=== PATIENT | female | born 1955 | race Caucasian/White ===

== ENCOUNTER 2021-02-01 07:17 | Outpatient (CLI) | payer BC, SELFPAY ==
[2021-02-01 09:52] LABS: Absolute Basophil Count 0.08 10^3/uL (0.0-0.2); Absolute Eosinophil Count 0.42 10^3/uL (0.0-0.7); Absolute Lymphocyte Count 1.53 10^3/uL (1.2-3.4); Absolute Monocyte Count 0.78 10^3/uL (0.1-0.8); Absolute Neutrophil Count 9.84 10^3/uL (1.2-6.7); Basophils % 0.6; Eosinophils % 3.3; HCT 33.2 % (36.0-46.0); HGB 10.7 g/dL (11.2-15.7); Immature Grans % 0.8; MCH 28.7 pg (27.0-33.0); MCHC 32.2 % (32.0-36.0); MPV 10.6 fL (8.0-11.0); Monocytes % 6.1; Neutrophils % 77.2; Nucleated RBC 0 %; Platelet Count 392 10^3/uL (130-400); RBC 3.73 10^6/uL (3.93-5.22); RDW 12.1 % (11.7-14.6); RDW-SD 39.8 fL; WBC 12.75 10^3/uL (4.4-10.8)
[2021-02-01 10:07] LABS: ALT 16 U/L (14-59); AST 9 U/L (15-37); Albumin 2.4 g/dL (3.4-5.0); Alkaline Phosphatase 101 U/L (46-116); Anion Gap 7.4 mmol/L (3-11); BUN 35 mg/dL (7-18); Bilirubin, Total 0.4 mg/dL (0.2-1.0); CO2 27.6 mmol/L (21.0-32.0); CREATININE 1.7 mg/dL (0.55-1.02); Calcium 9.2 mg/dL (8.5-10.1); Chloride 101 mmol/L (98-107); Estimated GFR 30.07 (mL/min/1.73m2); Glucose 248 mg/dL (74-106); Potassium 4.8 mmol/L (3.5-5.1); Sodium 136 mmol/L (136-145); Total Protein 7.2 g/dL (6.4-8.2)
== END 2021-02-01 07:18 | disposition home or self-care (01) ==
PROVIDERS: Visit Provider Internal Medicine
DX: C67.9 Malignant neoplasm of bladder, unspecified (principal)
CPT/HCPCS: 36415; 80053; 83735; 85025

== ENCOUNTER 2021-02-09 15:30 | Emergency (ER) | payer BC, SELFPAY ==
[2021-02-09] VITALS (30 sets, daily range): BP systolic 152–225; BP diastolic 68–97; PULSE 91–108; RESP 14–27; TEMP 35.3; O2SAT 93–99
--- NOTE | 2021-02-09 15:45 | DI.CT_ITS ---
EXAM: CT RENAL COLIC WO CLINICAL HISTORY: stent placed, concerned for hydronephrosis/displac. TECHNIQUE: Imaging Protocol: Axial computed tomography images with coronal and sagittal reformatted images were created and reviewed CONTRAST MATERIAL: Intravenous: none Oral: None COMPARISON: CT ABD PELVIS WITH CONTRAST from 04/21/2017 FINDINGS: VISUALIZED LUNG BASES: There is mild infiltrate in the lingular segment of the visualized left lung b ase. Benign-appearing increased markings noted in the medial basal segment of the right lower lobe an d posterior basal segment of the left lower lobe. There are no pleural effusions. There is a pericardial effusion noted (small-moderate size). ABDOMEN: There is no ascites. LIVER: There are no obvious focal hepatic lesions evident of this noninfused study. GALLBLADDER/BILIARY: Gallbladder is slightly distended. No gallstones or gallbladder wall edema. CB D is not dilated. PANCREAS: The pancreas is atrophic and there are few parenchymal calcifications noted. Pancreatic du ct does not appear dilated. SPLEEN: Spleen is not enlarged. No obvious intrasplenic lesions. ADRENALS: There is relatively symmetrical thickening of both adrenal glands-probably hyperplasia. KIDNEYS:There is a right ureteral stent in place which extends from the renal pelvis down into the ur inary bladder. There is hydronephrosis of the right kidney despite the presence of the stent. The u rine in the right renal pelvis and infundibulum I is isodense to the kidney, or denser than typical. The ureter at the level of the stent is not dilated.. There is no obvious solid mass in the kidney. . In the opposite-left kidney there is a 5-6 millimeter calculus noted which is nonobstructive. This i s increased in size from the previous study. ABDOMINAL AORTA: Abdominal aorta is not enlarged. LYMPH NODES: There are enlarged right para-aortic and retroperitoneal lymph nodes, these ranging up t o 2.2 cm size. ABDOMINAL WALL/GI: Anterior midline scarring noted. No significant anterior abdominal hernia at this time. No bowel obstruction. PELVIS: LYMPH NODES: There is no prominent lymphadenopathy in the pelvis and inguinal regions. GI: No evidence of appendicitis.No evidence of sigmoid diverticulitis. URINARY BLADDER: Distal aspect of the right double-pigtail stent is in the urinary bladder. The blad brian is not distended. REPRODUCTIVE: Uterus is surgically absent. There are no abnormal adnexal masses. OSSEOUS: No significant osseous lesions. IMPRESSION: 1. There is significant right-sided hydronephrosis, this despite the presence of a right-sided ureter al stent which appears to be in satisfactory position. The fluid in the upper pole calices is denser than normal urine and may therefore represent blood, purulent fluid, or mass. 2. There is right-sided ztmjupbmwthoaol-aiwb-seortt lymphadenopathy. The right ureter below this lev el is not dilated. No obvious abnormality in the urinary bladder. 3. 5 millimeter calculus in the opposite-left kidney noted. No hydronephrosis nor hydroureter on the left side. Uterus is surgically absent. No abnormal adnexal masses. RADIATION DOSE DELIVERED: 1,367.43mGy.cm Total DLP DATA REPOSITORY: All CT scans at this facility are submitted to the National Radiology Data Registry (NRDR) Dose Index Registry (DIR) with the [employer] (A[employer]). RADIATION OPTIMIZATION: All CT scans at this facility use at least one of these dose optimization te chniques: automated exposure control; mA and/or kV adjustment per patient size (includes targeted exa ms where dose is matched to clinical indication); or iterative reconstruction.
--- NOTE | 2021-02-09 15:53 | W.ED.GENAD ---
Discharge Plan Disposition Patient Disposition: HOME Condition: Stable Discharge Details Clinical Impression: UTI (urinary tract infection), Kidney mass, Flank pain Primary Care Provider: Unknown,Unknown ED Provider: [place] Muñiz Home Meds and New Rx's Prescriptions: New cephalexin 250 mg capsule 250 mg PO QID Qty: 18 RF: 0 Continued cholecalciferol (vitamin D3) 1,000 UNIT capsule 1,000 iu PO DAILY Qty: 100 RF: 4 nystatin-triamcinolone 15 GM cream 1 applic Topical BID PRN Qty: 12 RF: 3 metformin 1,000 MG tablet 1,000 mg PO BID Qty: 180 RF: 4 insulin aspart U-100 [Novolog Flexpen U-100 Insulin] 100 UNIT/1 ML insulin pen 4 - 12 units Sub-Q TID PRNRF: 0 (DME) blood sugar diagnostic [OneTouch Ultra Test] 1 EACH strip 1 ea Miscellaneous ac and hs Qty: 400 RF: 4 losartan 100 MG tablet 100 mg PO DAILY Qty: 90 RF: 4 amlodipine 5 MG tablet 5 mg PO DAILY Qty: 90 RF: 4 Tresiba FlexTouch U-100 100 UNIT/1 ML insulin pen 100 unit SQ DIRECTED RF: 0 lidocaine-prilocaine 30 GM cream 30 gm Topical Q4H PRN Qty: 1 RF: 3 naproxen sodium [Aleve] 220 MG capsule 1 cap PO DAILY PRNRF: 0 Discharge Instructions Instructions: Cephalexin (By mouth), Urinary Tract Infection in Women (ED), Flank Pain (ED) Additional Instructions: Your test today suggest that you have a urinary tract infection. Please take the Keflex as prescribed. Even if symptoms improve, please take the entire course. Please continue to encourage hydration. The urologist at [facility] reviewed your images and is concerned that the swelling has increased slightly in your right kidney. They would like to exchange the stent and plan to do this in the next few days. They will call you to schedule appointment. If you do not hear from them by midday tomorrow, please call [facility] to discuss. [phone] If you develop fevers chills, change in urinary habits, inability stay hydrated or other new/worsening symptoms please seek care urgently once again. Discharge Data Discharge Date/Time-TO BE ENTERED AT DEPARTURE: 02/09/21 20:10 Medical Decision Making Patient is a pleasant 65 year old female who was recently diagnosed with cancerous mass on right kidney. She is previously been followed at [facility]. She states that the time of diagnosis, stent was placed by the urology team. This remains in place since her concern today. She reports that over recent days, the pain has been increasing in the right flank and she is concerned that the stent may be dislodged. She does endorse some dysuria. No fevers or chills. No nausea or vomiting. States that the right-sided flank pain can radiate down into the right lower quadrant. Patient is concerned that she supposed to begin chemotherapy tomorrow and is concerned that a issue with her stent or mass may impede her ability to continue her treatment. On exam, patient appears uncomfortable. She appears nontoxic. Lungs are clear, normal cardiac exam. Abdomen is benign with no tenderness. She does have pain with percussion over the right CVA. Patient is hypertensive at 225/97 but this is began coming down while in the room. Patient I discussed treatment options. At this point, I feel that CT imaging is most appropriate to evaluate for location of the stent as well as reevaluation of the mass. Plan to be in touch with the urology team at [facility] [place] [place]. We will also obtain baseline labs for for signs of infection as well as acute change in kidney function. Also considered potential UTI. At this time with the patient is in agreement. Labs reviewed. White count is 12.17 (unchanged from when it was checked 8 days ago. Hemoglobin 10.5, again this is chronic. CMP significant for creatinine of 1.7 which is unchanged from when it was last checked. Urinalysis however has large amount of blood, nitrite negative, positive leukocyte esterase with large amount of WBCs and many bacteria. CT reviewed by radiologist: FINDINGS: Lungs: Multiple foci of linear atelectasis in the visualized bilateral lung bases. Heart: Mild increase in volume of the pericardial effusion. Liver: Normal. No mass. Gallbladder and bile ducts: Normal. No calcified stones. No ductal dilation. Pancreas: Normal. No ductal dilation. Spleen: Normal. No splenomegaly. Adrenal glands: Mild bilateral adrenal gland hyperplasia. Kidneys and ureters: Stable position of a right double-J ureteral stent. High density fluid within the upper pole calyx of the right kidney. Recommend follow-up ultrasound. Increase in size of the punctate left upper calculus that now measures 6 mm best seen on series 2, image 53. Stomach and bowel: Incidental note is made of a duodenal diverticulum. Appendix: Normal appendix. No appendicitis. Intraperitoneal space: Unremarkable. No free air. No significant fluid collection. Vasculature: Unremarkable. No abdominal aortic aneurysm. Lymph nodes: Multiple large right retroperitoneal lymph nodes. The largest of the retrocaval lymph nodes measures 2.2 x 2.0 cm. Another lymph node measures 2.3 x 1.9 cm. The largest aortocaval lymph node measures 1.9 x 1.6 cm. Urinary bladder: Unremarkable as visualized. Consulted with Dr. Downey with [facility] [place] [place] urology. He reviewed the images were able to compare to previous. He feels that the hydronephrosis might be slightly increased compared to previous. However, does not feel that this is an emergent need for transfer. He did advise that if the patient felt like she needed to be transferred to the facility this evening, that would be a potential but that she would likely be boarding in the emergency department for over 24 hours. Patient would like to be able to pursue her treatment tomorrow with the oncology team. He advised that there is question of the functionality of the stent, stent should be changed and that patient should be evaluated by the urology team within the next few days. He advised that they would reach out to her schedule follow-up appointment. We did discuss the findings of the urinalysis and he advised treating with Keflex. I discussed these findings with the patient. Patient seems to be quite frustrated regarding the most setback she has had recently around her new diagnosis. Patient will be started on Keflex, she states that she has been on this when diagnosed with UTI recently and that it did work well for her. She will follow-up with urology. Return precautions were discussed. Encouraged hydration. Patient continues declined any analgesics. All other questions and concerns were addressed and she is agreement this plan. I did speak with the patient's on multiple occasions in the vestibule to discuss the patient's current condition. After patient left, I spoke with Dr. Biggs with oncology. He advised that if the patient is stable it would be reasonable to go and believes that the treatment would likely help with the patients current symptoms. Patient was quite concerned about this and I advised that I would contact oncology and contact her with their recommendations regarding plans for tomorrow. Called the patient at home and relayed this information. She will keep her appointment tomorrow. HPI General Mode of arrival: ambulatory. Date/Time Provider Initiated Documentation: 02/09/21 15:53. Limitations to Documentation: no limitations. Information obtained by: patient, RN notes reviewed and old records reviewed. History of Present Illness 65 year old F presents to the emergency department with the chief complaint of right flank pain, described as severe, Quality is described as sharp, and is localized to the back. Patient abdomen (right flank to RLQ). Patient started experiencing this minute(s) (progressively worsening) and it has been constant. No relieving factors improve symptom(s), No exacerbating factors reported . Patient notes denies chest pain, diaphoresis, fever/chills, loss of appetite and shortness of breath. Patient did receive the following treatments prior to arrival, other (tylenol) Related Data Home Medications Medication Instructions Recorded Confirmed cholecalciferol (vitamin D3) 1,000 iu PO DAILY #100 tab-cap 07/31/14 02/09/21 nystatin-triamcinolone 1 applic TOPICAL BID PRN #12 box 09/01/16 02/09/21 metformin 1,000 mg PO BID #180 tab-cap 09/12/16 02/09/21 insulin aspart U-100 [Novolog 4 - 12 units SUB-Q TID PRN 10/11/16 02/09/21 Flexpen U-100 Insulin] blood sugar diagnostic [OneTouch #400 strip 10/18/16 Ultra Test] naproxen sodium [Aleve] 1 cap PO DAILY PRN 10/25/16 02/09/21 losartan 100 mg PO DAILY #90 tab-cap 11/25/16 02/09/21 amlodipine 5 mg PO DAILY #90 tab-cap 01/20/17 02/09/21 Tresiba FlexTouch U-100 100 unit SQ DIRECTED 03/15/17 02/09/21 lidocaine-prilocaine 30 gm TOPICAL Q4H PRN #1 tube 09/14/17 cephalexin 250 mg PO QID #18 cap 02/09/21 Previous Rx's Medication Instructions Recorded lidocaine-prilocaine 30 gm TOPICAL Q4H PRN #1 tube 09/14/17 cephalexin 250 mg PO QID #18 cap 02/09/21 Allergies Allergy/AdvReac Type Severity Reaction Status Date / Time Sulfa (Sulfonamide Allergy Severe rash Unverified 02/09/21 16:59 Antibiotics) adhesive Allergy Intermediate Skin Rash Unverified 02/09/21 16:59 exenatide microspheres Allergy Unknown Unverified 02/09/21 16:59 [From Bydureon] loratadine AdvReac Severe MADE HER Unverified 02/09/21 16:59 FEEL HYPER celecoxib [From Celebrex] AdvReac Intermediate Pt states Unverified 02/09/21 16:59 side effects unspecified gluten AdvReac Intermediate Diarrhea Unverified 02/09/21 16:59 lactose AdvReac Intermediate Diarrhea Unverified 02/09/21 16:59 Fcgvxjd-Ulb-Fhx Reductase AdvReac Unverified 02/09/21 16:59 Inhibitor Review of Systems Constitutional Constitutional: Reports as per HPI, Denies chills, Denies fatigue, Denies fever(s) and Denies headache(s) ENT Ears, Nose, Mouth, and Throat: Denies headache(s) Cardiovascular Cardiovascular: Reports as per HPI, Denies chest pain and Denies dyspnea Respiratory Respiratory: Reports as per HPI, Denies cough and Denies dyspnea Gastrointestinal Gastrointestinal: Reports as per HPI Genitourinary Genitourinary: Reports as per HPI Musculoskeletal Musculoskeletal: Reports as per HPI Neurologic Neurologic: Denies headache(s) Endocrine Endocrine: Denies fatigue PFSH Medical History Anxiety Depression Diabetes Gastritis and duodenitis GERD (gastroesophageal reflux disease) History of colon polyps Hyperlipidemia Hypertension Obesity Osteoarthritis Surgical History Abdominal hysterectomy (~11/2010) for fibroid Bilateral salpingectomy with oophorectomy Biopsy of breast cyst excised-left section Colonoscopy - MAC (01/10/17) EGD - MAC (01/10/17) Extraction of cataract (11/10/16) LEFT EYE; DR. MORRIS Hemorrhoidectomy and anal fissure repair Hernia Repair, Incisional OOPHRECTOMY, UNILATERAL (~1991) , Ectopic (~1991) Family History Mother Personal history of malignant neoplasm UTERINE Father Personal history of malignant neoplasm COLON Brother Heart disease Brother No problems noted. Brother No problems noted. Grandfather Personal history of malignant neoplasm Grandfather No problems noted. Grandmother Personal history of malignant neoplasm Stroke Grandmother Diabetes Personal history of malignant neoplasm Social History Smoking/Tobacco Use Status: Former Tobacco Use Smoking risk assessment performed?: Yes Alcohol Intake: never Drug use: Never Details: vapor use Do you feel safe at home: Yes Do you feel safe in your relationship?: Yes Exam Const General: cooperative, healthy appearing, uncomfortable, no acute distress and well developed Nutritional Appearance: average body habitus and well nourished Orientation: alert and awake HENMT Mouth: moist mucous membranes Resp Effort & Inspection: normal respiratory effort and no respiratory distress Auscultation: clear to auscultation bilaterally, no rales, no rhonchi and no wheezes Cardio Rate: regular rate Rhythm: regular rhythm Heart Sounds: S1 normal and S2 normal GI Inspection: normal to inspection, no edema and non-distended Palpation: soft, no hepatosplenomegaly, no guarding, no hernias, no pulsatile masses and nontender Percussion: normal to percussion Auscultation: normal bowel sounds Back/Spine/Pelvis Back: CVA tenderness (Right side) Skin General skin exam: no rashes or lesions noted Neuro General: patient alert and patient awake Cognition: normal cognition Speech: speech normal Gait: normal gait Extrem General: normal to inspection, no pedal edema and no calf tenderness Psych Appearance: grossly normal and well kempt Mental Status: mental status grossly normal Speech and Movement: speech and movement normal
[2021-02-09 16:17] LABS: Absolute Basophil Count 0.09 10^3/uL (0.0-0.2); Absolute Eosinophil Count 0.28 10^3/uL (0.0-0.7); Absolute Neutrophil Count 9.29 10^3/uL (1.2-6.7); Basophils % 0.7; Eosinophils % 2.3; HCT 32.6 % (36.0-46.0); HGB 10.5 g/dL (11.2-15.7); Immature Grans % 0.8; Lymphocytes % 14.1; MCH 28.2 pg (27.0-33.0); MCHC 32.2 % (32.0-36.0); MCV 87.6 fL (80-95); MPV 10.9 fL (8.0-11.0); Monocytes % 5.8; Neutrophils % 76.3; Nucleated RBC 0 %; Platelet Count 427 10^3/uL (130-400); RBC 3.72 10^6/uL (3.93-5.22); RDW 12.2 % (11.7-14.6); RDW-SD 39.8 fL; WBC 12.17 10^3/uL (4.4-10.8)
[2021-02-09 16:22] LABS: ALT 18 U/L (14-59); AST 11 U/L (15-37); Albumin 2.5 g/dL (3.4-5.0); Alkaline Phosphatase 117 U/L (46-116); Anion Gap 8.2 mmol/L (3-11); BUN 41 mg/dL (7-18); Bilirubin, Total 0.2 mg/dL (0.2-1.0); CO2 27.8 mmol/L (21.0-32.0); CREATININE 1.7 mg/dL (0.55-1.02); Calcium 9.1 mg/dL (8.5-10.1); Chloride 102 mmol/L (98-107); Estimated GFR 30.07 (mL/min/1.73m2); Glucose 141 mg/dL (74-106); Potassium 4.3 mmol/L (3.5-5.1); Sodium 138 mmol/L (136-145); Total Protein 7.6 g/dL (6.4-8.2)
[2021-02-09 16:25] LABS: PTT Activated 23.4 sec (21.0-27.5); Prothrombin Time 9.8 sec (9.3-11.0)
[2021-02-09 16:29] LABS: Absolute Lymphocyte Count 1.72 10^3/uL (1.2-3.4); Absolute Monocyte Count 0.71 10^3/uL (0.1-0.8)
[2021-02-09 17:05] LABS: Bilirubin Negative (Negative); Blood Large (Negative); Clarity Cloudy (Clear); Glucose Negative (Negative); Ketones Negative (Negative); Leukocyte Esterase Large (Negative); Nitrite Negative (Negative); Specific Gravity 1.025 (1.005-1.025); Urobilinogen 0.2 EU/dL (Up TO 0.2)
[2021-02-09 17:13] LABS: Bacteria Many HPF (Negative); C & S Indicated? Yes; Casts Negative LPF (Negative); Crystals Negative HPF (Negative); Epithelial Cells Negative HPF (Negative); Mucus Negative (Negative); Other Cells Negative (Negative); RBC >50 HPF (0-2); WBC >50 HPF (0-5)
--- NOTE | 2021-02-09 17:35 | DI.VRAD_ITS ---
PROCEDURE INFORMATION: Exam: CT Abdomen And Pelvis Without Contrast Exam date and time: 02/09/2021 3:56 PM Age: 65 years old Clinical indication: Other: Stent placed, concerned for hydronephrosis/displac; Prior surgery; Surgery date: <1 month; Additional info: Stent placed, concerned for hydronephrosis/displac bilat abd flank pain . TECHNIQUE: Imaging protocol: Computed tomography of the abdomen and pelvis without contrast. Radiation optimization: All CT scans at this facility use at least one of these dose optimization techniques: automated exposure control; mA and/or kV adjustment per patient size (includes targeted exams where dose is matched to clinical indication); or iterative reconstruction. COMPARISON: CT ABD PELVIS WITH CONTRAST 04/21/2017 10:04 AM FINDINGS: Lungs: Multiple foci of linear atelectasis in the visualized bilateral lung bases. Heart: Mild increase in volume of the pericardial effusion. Liver: Normal. No mass. Gallbladder and bile ducts: Normal. No calcified stones. No ductal dilation. Pancreas: Normal. No ductal dilation. Spleen: Normal. No splenomegaly. Adrenal glands: Mild bilateral adrenal gland hyperplasia. Kidneys and ureters: Stable position of a right double-J ureteral stent. High density fluid within the upper pole calyx of the right kidney. Recommend follow-up ultrasound. Increase in size of the punctate left upper calculus that now measures 6 mm best seen on series 2, image 53. Stomach and bowel: Incidental note is made of a duodenal diverticulum. Appendix: Normal appendix. No appendicitis. Intraperitoneal space: Unremarkable. No free air. No significant fluid collection. Vasculature: Unremarkable. No abdominal aortic aneurysm. Lymph nodes: Multiple large right retroperitoneal lymph nodes. The largest of the retrocaval lymph nodes measures 2.2 x 2.0 cm. Another lymph node measures 2.3 x 1.9 cm. The largest aortocaval lymph node measures 1.9 x 1.6 cm. Urinary bladder: Unremarkable as visualized. Reproductive: Uterus and ovaries have been surgically removed. Bones/joints: Unremarkable. No acute fracture. Soft tissues: Unremarkable. IMPRESSION: 1. Moderate to severe right hydronephrosis despite the presence of a double-J right ureteral stent in good position. The fluid in the upper pole calyx is of high density and may represent blood products or mass. Associated right retroperitoneal lymphadenopathy worrisome for malignancy. Follow-up renal ultrasound and/or CT or MRI renal mass protocol and Urology consultation is recommended. 2. Nonobstructing left 6 mm renal calculus. Dictated and Authenticated by: Abby Plummer MD. Ordering:DARIO Bartholomew MD
[2021-02-09] MEDS: Cephalexin 250 MG CAP PO ×2 (19:59)
== END 2021-02-09 20:10 | disposition home or self-care (01) ==
PROVIDERS: Emergency Provider Physician Assistant
DX: N13.1 Hydronephrosis with ureteral stricture, not elsewhere classified (principal); Z96.0 Presence of urogenital implants; N39.0 Urinary tract infection, site not specified; C64.1 Malignant neoplasm of right kidney, except renal pelvis
CPT/HCPCS: 36415; 36416; 80053; 82962; 99284; 74176; 81003; 81015; 85025; 85610; 85730; 87086

== ENCOUNTER 2021-02-16 09:12 | Outpatient (CLI) | payer BC, SELFPAY ==
[2021-02-16 09:32] LABS: Abs Immature Grans 0.01 10^3/uL (0.0-0.06); Absolute Basophil Count 0.04 10^3/uL (0.0-0.2); Absolute Eosinophil Count 0.14 10^3/uL (0.0-0.7); Absolute Lymphocyte Count 0.94 10^3/uL (1.2-3.4); Absolute Monocyte Count 0.13 10^3/uL (0.1-0.8); Absolute Neutrophil Count 3.51 10^3/uL (1.2-6.7); Basophils % 0.8; Eosinophils % 2.9; Immature Grans % 0.2; Lymphocytes % 19.7; MCH 28.6 pg (27.0-33.0); MCHC 32.4 % (32.0-36.0); MCV 88.5 fL (80-95); MPV 10.7 fL (8.0-11.0); Monocytes % 2.7; Neutrophils % 73.7; Nucleated RBC 0 %; Platelet Count 285 10^3/uL (130-400); RBC 3.84 10^6/uL (3.93-5.22); RDW 12.2 % (11.7-14.6); RDW-SD 39.2 fL; WBC 4.77 10^3/uL (4.4-10.8)
[2021-02-16 09:44] LABS: ALT 31 U/L (14-59); AST 18 U/L (15-37); Albumin 2.6 g/dL (3.4-5.0); Alkaline Phosphatase 113 U/L (46-116); BUN 49 mg/dL (7-18); Bilirubin, Total 0.2 mg/dL (0.2-1.0); CREATININE 1.4 mg/dL (0.55-1.02); Calcium 8.6 mg/dL (8.5-10.1); Chloride 101 mmol/L (98-107); Estimated GFR 37.62 (mL/min/1.73m2); Glucose 165 mg/dL (74-106); Magnesium 2.3 mg/dL (1.8-2.4); Potassium 4.6 mmol/L (3.5-5.1); Sodium 137 mmol/L (136-145); Total Protein 7.5 g/dL (6.4-8.2)
== END 2021-02-16 09:13 | disposition home or self-care (01) ==
LOC: LBO 09:13
PROVIDERS: Visit Provider Internal Medicine
DX: C67.9 Malignant neoplasm of bladder, unspecified (principal)
CPT/HCPCS: 36415; 80053; 83735; 85025

== ENCOUNTER 2021-03-09 02:34 | Outpatient (RCR) | payer BC, SELFPAY ==
[2021-03-02 09:21] LABS: Abs Immature Grans 0.04 10^3/uL (0.0-0.06); Absolute Basophil Count 0.03 10^3/uL (0.0-0.2); Absolute Eosinophil Count 0.07 10^3/uL (0.0-0.7); Absolute Lymphocyte Count 1.01 10^3/uL (1.2-3.4); Absolute Monocyte Count 0.55 10^3/uL (0.1-0.8); Absolute Neutrophil Count 2.28 10^3/uL (1.2-6.7); Basophils % 0.8; Eosinophils % 1.8; HCT 29.3 % (36.0-46.0); HGB 9.3 g/dL (11.2-15.7); Lymphocytes % 25.4; MCH 28.5 pg (27.0-33.0); MCHC 31.7 % (32.0-36.0); MCV 89.9 fL (80-95); MPV 10.9 fL (8.0-11.0); Monocytes % 13.8; Neutrophils % 57.2; Nucleated RBC 0 %; Platelet Count 411 10^3/uL (130-400); RBC 3.26 10^6/uL (3.93-5.22); RDW 12.8 % (11.7-14.6); RDW-SD 39.7 fL; WBC 3.98 10^3/uL (4.4-10.8)
[2021-03-02 09:36] LABS: ALT 27 U/L (14-59); AST 17 U/L (15-37); Albumin 2.6 g/dL (3.4-5.0); Alkaline Phosphatase 115 U/L (46-116); BUN 41 mg/dL (7-18); Bilirubin, Total 0.2 mg/dL (0.2-1.0); CREATININE 1.6 mg/dL (0.55-1.02); Chloride 103 mmol/L (98-107); Estimated GFR 32.25 (mL/min/1.73m2); Glucose 190 mg/dL (74-106); Magnesium 2.1 mg/dL (1.8-2.4); Potassium 4.8 mmol/L (3.5-5.1); Sodium 137 mmol/L (136-145)
[2021-03-02] MEDS: Normal Saline Flush 10 ML SYR IVP (09:47)
[2021-03-09] MEDS: Normal Saline Flush 10 ML SYR IVP (09:22)
[2021-03-09 09:32] LABS: Abs Immature Grans 0.02 10^3/uL (0.0-0.06); Absolute Basophil Count 0.07 10^3/uL (0.0-0.2); Absolute Eosinophil Count 0.03 10^3/uL (0.0-0.7); Absolute Lymphocyte Count 0.93 10^3/uL (1.2-3.4); Absolute Monocyte Count 0.19 10^3/uL (0.1-0.8); Absolute Neutrophil Count 1.49 10^3/uL (1.2-6.7); Basophils % 2.6; Eosinophils % 1.1; HCT 28.5 % (36.0-46.0); HGB 9.2 g/dL (11.2-15.7); Immature Grans % 0.7; Lymphocytes % 34.1; MCH 28.3 pg (27.0-33.0); MCHC 32.3 % (32.0-36.0); MCV 87.7 fL (80-95); MPV 10.5 fL (8.0-11.0); Neutrophils % 54.5; Nucleated RBC 0 %; Platelet Count 321 10^3/uL (130-400); RBC 3.25 10^6/uL (3.93-5.22); RDW 12.9 % (11.7-14.6); RDW-SD 39.8 fL; WBC 2.73 10^3/uL (4.4-10.8)
[2021-03-09 09:54] LABS: ALT 36 U/L (14-59); AST 26 U/L (15-37); Albumin 2.9 g/dL (3.4-5.0); Alkaline Phosphatase 111 U/L (46-116); Anion Gap 9.2 mmol/L (3-11); BUN 56 mg/dL (7-18); Bilirubin, Total 0.2 mg/dL (0.2-1.0); CO2 25.8 mmol/L (21.0-32.0); CREATININE 1.2 mg/dL (0.55-1.02); Calcium 9.1 mg/dL (8.5-10.1); Chloride 103 mmol/L (98-107); Estimated GFR 44.95 (mL/min/1.73m2); Glucose 120 mg/dL (74-106); Magnesium 2.1 mg/dL (1.8-2.4); Potassium 5.1 mmol/L (3.5-5.1); Sodium 138 mmol/L (136-145); Total Protein 7.3 g/dL (6.4-8.2)
== END 2021-03-26 23:59 | disposition home or self-care (01) ==
LOC: INF 02:34
PROVIDERS: Visit Provider Internal Medicine
DX: C67.9 Malignant neoplasm of bladder, unspecified (principal)
CPT/HCPCS: 36415; 80053; 83735; 85025

== ENCOUNTER 2021-03-16 08:19 | Outpatient (CLI) | payer BC, SELFPAY ==
[2021-03-16 08:54] LABS: Abs Immature Grans 3.49 10^3/uL (0.0-0.06); HCT 26.2 % (36.0-46.0); HGB 8.2 g/dL (11.2-15.7); MCH 28.3 pg (27.0-33.0); MCHC 31.3 % (32.0-36.0); MCV 90.3 fL (80-95); MPV 10.6 fL (8.0-11.0); Nucleated RBC 0 %; RDW 13.2 % (11.7-14.6); RDW-SD 42.6 fL
[2021-03-16 09:37] LABS: Absolute Basophil Count 0.32 10^3/uL (0.0-0.2); Absolute Eosinophil Count 0.32 10^3/uL (0.0-0.7); Absolute Lymphocyte Count 3.56 10^3/uL (1.2-3.4); Absolute Monocyte Count 3.24 10^3/uL (0.1-0.8); Absolute Neutrophil Count 24.29 10^3/uL (1.2-6.7); Bands % 9; Platelet Count 101 10^3/uL (130-400)
[2021-03-16 09:38] LABS: Diff Comment Manual Differential; Hypochromasia 2+; Metamyelocytes % 2; Polychromasia Present
[2021-03-16 09:42] LABS: WBC 32.39 10^3/uL (4.4-10.8)
[2021-03-16 09:52] LABS: ALT 34 U/L (14-59); AST 24 U/L (15-37); Albumin 2.7 g/dL (3.4-5.0); Alkaline Phosphatase 200 U/L (46-116); Anion Gap 7.7 mmol/L (3-11); BUN 36 mg/dL (7-18); Bilirubin, Total 0.1 mg/dL (0.2-1.0); CO2 27.3 mmol/L (21.0-32.0); CREATININE 1.4 mg/dL (0.55-1.02); Calcium 8.6 mg/dL (8.5-10.1); Chloride 107 mmol/L (98-107); Estimated GFR 37.62 (mL/min/1.73m2); Glucose 224 mg/dL (74-106); Sodium 142 mmol/L (136-145); Total Protein 6.3 g/dL (6.4-8.2)
== END 2021-03-16 08:20 | disposition home or self-care (01) ==
LOC: LBO 08:22
PROVIDERS: Visit Provider Nurse Practitioner Adult Health
DX: C67.9 Malignant neoplasm of bladder, unspecified (principal)
CPT/HCPCS: 36415; 80053; 86850; 86900; 86901; 85025

== ENCOUNTER 2021-03-19 11:30 | Inpatient (IN) | payer BC, MEDICARE, SELFPAY ==
[2021-03-19] VITALS (49 sets, daily range): BP systolic 125–203; BP diastolic 49–115; PULSE 89–122; RESP 12–36; TEMP 36.5–36.6; O2SAT 92–99
--- NOTE | 2021-03-19 11:45 | RT.EKG_ITS ---
APPROVED REPORT Exam: Resting ECG Patient Location: E HR:100 bpm ECG Measurements Heart Rate 100 AXIS WA 149 P 52 QRSd 85 QRS 46 QT 302 T 254 QTc 390 Conclusion Sinus tachycardia...rate> 99 Probable left atrial enlargement...P >50mS, <-0.10mV V1 I have reviewed and interpreted ECG and agree with software generated interpretation.
[2021-03-19 13:20] LABS: Bilirubin Negative (Negative); Blood Small (Negative); Clarity Clear (Clear); Glucose Negative (Negative); Ketones Negative (Negative); Leukocyte Esterase Trace (Negative); Nitrite Negative (Negative); Specific Gravity 1.015 (1.005-1.025); Urobilinogen 0.2 EU/dL (Up TO 0.2)
[2021-03-19 13:28] LABS: Bacteria Few HPF (Negative); C & S Indicated? Yes; Casts Negative LPF (Negative); Crystals Negative HPF (Negative); Epithelial Cells Few HPF (Negative); Mucus Negative (Negative); RBC 0-2 HPF (0-2); WBC >50 HPF (0-5)
[2021-03-19 14:00] LABS: Abs Immature Grans 7.43 10^3/uL (0.0-0.06); HCT 27.6 % (36.0-46.0); HGB 8.7 g/dL (11.2-15.7); MCH 28.7 pg (27.0-33.0); MCHC 31.5 % (32.0-36.0); MCV 91.1 fL (80-95); MPV 10.8 fL (8.0-11.0); Nucleated RBC 1 %; Platelet Count 126 10^3/uL (130-400); RBC 3.03 10^6/uL (3.93-5.22); RDW 13.5 % (11.7-14.6); RDW-SD 42.8 fL
[2021-03-19 14:13] LABS: ALT 36 U/L (14-59); AST 29 U/L (15-37); Alkaline Phosphatase 232 U/L (46-116); Anion Gap 7.8 mmol/L (3-11); BUN 29 mg/dL (7-18); Bilirubin, Total 0.2 mg/dL (0.2-1.0); CO2 28.2 mmol/L (21.0-32.0); CREATININE 1.3 mg/dL (0.55-1.02); Calcium 9.6 mg/dL (8.5-10.1); Chloride 104 mmol/L (98-107); Estimated GFR 40.98 (mL/min/1.73m2); Glucose 126 mg/dL (74-106); NT-proBNP 3768 pg/mL (<300); Potassium 4.4 mmol/L (3.5-5.1); Sodium 140 mmol/L (136-145); Total Protein 7.6 g/dL (6.4-8.2); Troponin I 0.05 ng/mL (<0.06)
[2021-03-19 14:17] LABS: PTT Activated 20.3 sec (21.0-27.5); Prothrombin Time 9.8 sec (9.3-11.0)
[2021-03-19 14:28] LABS: Absolute Basophil Count 0.42 10^3/uL (0.0-0.2); Absolute Lymphocyte Count 3.33 10^3/uL (1.2-3.4); Absolute Monocyte Count 2.91 10^3/uL (0.1-0.8); Absolute Neutrophil Count 29.13 10^3/uL (1.2-6.7); Bands % 11; WBC 41.62 10^3/uL (4.4-10.8)
[2021-03-19 14:30] LABS: Metamyelocytes % 4; Myelocytes % 9
[2021-03-19 14:31] LABS: Diff Comment Manual Differential; Other Cells % 1; Polychromasia Present
--- NOTE | 2021-03-19 15:13 | W.ED.GENAD ---
Discharge Plan Disposition Patient Disposition: [facility] INPATIENT Condition: Stable Discharge Details Clinical Impression: Bilateral lower extremity edema, Pericardial effusion Admit Date/Time: 03/19/21 18:39 Admit Provider: Bobo Hunter Attending Provider: Bobo Hunter Primary Care Provider: Unknown,Unknown ED Provider: [place] Muñiz Discharge Data Discharge Date/Time-TO BE ENTERED AT DEPARTURE: 03/19/21 19:45 Medical Decision Making <DELORES Palm - Last Filed: 03/20/21 08:10> This is a 65-year-old female who is currently being treated for urothelial carcinoma of right kidney, last chemotherapy infusion 1 week ago, since that time increased swelling of bilateral legs, fatigue, shortness of breath. She presents anxious, hypertensive, tachycardic. She is willing to have blood work but refuses IV access. Would like me to personally speak with her oncology team. Multiple attempts were made to speak with Dr. Simons and his pain however they were not on-call today and these attempts were unsuccessful. Laboratory values reveal a white blood cell count of 41.62 hemoglobin 8.7 hematocrit 27.6, platelet count 126, INR 1.0 creatinine 1.3 GFR 40.98 glucose 126 troponin 0 0.05, BNP 3768. Urinalysis reveals greater than 50 white cells. She is currently taking Cipro and has no urinary symptoms This certainly could be fluid overload secondary to her treatment but cannot rule out PE, CHF, etc. She has declined a chest x-ray because she has a diagnostic diabetic implant to her left arm and cannot get a new one until 14 days. I had multiple conversations with the patient regarding my concern for her elevated BNP. Discussed that CTA to rule out PE is vital. If this is unremarkable then outpatient echocardiogram may also be indicated. She may also require slightly increasing her diuretics and continuing Cipro until Monday when she sees her oncology team personally. Patient is refusing to partake in any additional therapy until I speak with her oncology team. Multiple attempts were once again made and I was finally able to speak with Dr. Biggs who is on-call for [facility] oncology team. He is not the patient's primary oncologist and she is upset that we are not able to get her team involved. Dr. Walters felt as though her elevated white count and fluid overload very well could be secondary to her recent chemotherapy and treatment but certainly CTA to rule out life-threatening PE is pertinent. He recommends obtaining IV access, removing the left arm diagnostic implant, and obtaining imaging. I relayed my conversation to the patient with Dr. Biggs, she is agreeable to this plan now. She will remove her implant and perform fingersticks to monitor her glucose levels until she is able to get a new implant. Medical Records Medical records reviewed: Yes I reviewed the patient's medical records. Lab Data Lab results reviewed: Yes I reviewed the patient's lab results. Lab results narrative: 03/19/21 12:55 Urine - Reflex from Ua Urine Culture - Pending Laboratory Tests Range/Units 03/19/21 03/19/21 03/19/21 12:55 13:40 13:40 WBC (4.4-10.8) 10^3/uL 41.62 H* RBC (3.93-5.22) 10^6/uL 3.03 L Hgb (11.2-15.7) g/dL 8.7 L Hct (36.0-46.0) % 27.6 L MCV (80-95) fL 91.1 MCH (27.0-33.0) pg 28.7 MCHC (32.0-36.0) % 31.5 L RDW (11.7-14.6) % 13.5 Plt Count (130-400) 10^3/uL 126 L MPV (8.0-11.0) fL 10.8 Immature Gran % See Differential Neutrophils % 59.0 Band Neutrophils % 11 Lymphocytes % 8.0 Monocytes % 7.0 Eosinophils % 0.0 Basophils % 1.0 Metamyelocytes % 4 Myelocytes % 9 Other Cells % 1 Nucleated RBC % % 1 Absolute Neutrophils (1.2-6.7) 10^3/uL 29.13 H Absolute Lymphocytes (1.2-3.4) 10^3/uL 3.33 Absolute Monocytes (0.1-0.8) 10^3/uL 2.91 H Absolute Eosinophils (0.0-0.7) 10^3/uL 0.00 Absolute Basophils (0.0-0.2) 10^3/uL 0.42 H RBC Morphology See below Polychromasia Present PT (9.3-11.0) sec INR (0.9-1.1) APTT (21.0-27.5) sec Sodium (136-145) mmol/L 140 Potassium (3.5-5.1) mmol/L 4.4 Chloride (98-107) mmol/L 104 Carbon Dioxide (21.0-32.0) mmol/L 28.2 Anion Gap (3-11) mmol/L 7.8 BUN (7-18) mg/dL 29 H Creatinine (0.55-1.02) mg/dL 1.3 H Estimated GFR/1.73 m2 (mL/min/1.73m2) 40.98 Glucose (74-106) mg/dL 126 H Calcium (8.5-10.1) mg/dL 9.6 Magnesium (1.8-2.4) mg/dL 2.0 Total Bilirubin (0.2-1.0) mg/dL 0.2 AST (15-37) U/L 29 ALT (14-59) U/L 36 Alkaline Phosphatase (46-116) U/L 232 H Troponin I (<0.06) ng/mL 0.05 NT-Pro-B Natriuret Pep (<300) pg/mL 3768 H Total Protein (6.4-8.2) g/dL 7.6 Albumin (3.4-5.0) g/dL 3.0 L Urine Color (Yellow) Yellow Urine Clarity (Clear) Clear Urine pH (5-8) 7.0 Ur Specific [place] (1.005-1.025) 1.015 Urine Protein (Negative) mg/dL 100 H Urine Ketones (Negative) mg/dL Negative Urine Blood (Negative) Small H Urine Nitrite (Negative) Negative Urine Bilirubin (Negative) Negative Urine Urobilinogen (Up TO 0.2) EU/dL 0.2 Ur Leukocyte Esterase (Negative) Trace H Urine RBC (0-2) HPF 0-2 Urine WBC (0-5) HPF >50 H Ur Epithelial Cells (Negative) HPF Few Urine Crystals (Negative) HPF Negative Urine Bacteria (Negative) HPF Few Urine Casts (Negative) LPF Negative Urine Mucus (Negative) Negative Ur Culture Indicated? Yes Urine Glucose (Negative) mg/dL Negative Range/Units 03/19/21 13:40 WBC (4.4-10.8) 10^3/uL RBC (3.93-5.22) 10^6/uL Hgb (11.2-15.7) g/dL Hct (36.0-46.0) % MCV (80-95) fL MCH (27.0-33.0) pg MCHC (32.0-36.0) % RDW (11.7-14.6) % Plt Count (130-400) 10^3/uL MPV (8.0-11.0) fL Immature Gran % Neutrophils % Band Neutrophils % Lymphocytes % Monocytes % Eosinophils % Basophils % Metamyelocytes % Myelocytes % Other Cells % Nucleated RBC % % Absolute Neutrophils (1.2-6.7) 10^3/uL Absolute Lymphocytes (1.2-3.4) 10^3/uL Absolute Monocytes (0.1-0.8) 10^3/uL Absolute Eosinophils (0.0-0.7) 10^3/uL Absolute Basophils (0.0-0.2) 10^3/uL RBC Morphology Polychromasia PT (9.3-11.0) sec 9.8 INR (0.9-1.1) 1.0 APTT (21.0-27.5) sec 20.3 L Sodium (136-145) mmol/L Potassium (3.5-5.1) mmol/L Chloride (98-107) mmol/L Carbon Dioxide (21.0-32.0) mmol/L Anion Gap (3-11) mmol/L BUN (7-18) mg/dL Creatinine (0.55-1.02) mg/dL Estimated GFR/1.73 m2 (mL/min/1.73m2) Glucose (74-106) mg/dL Calcium (8.5-10.1) mg/dL Magnesium (1.8-2.4) mg/dL Total Bilirubin (0.2-1.0) mg/dL AST (15-37) U/L ALT (14-59) U/L Alkaline Phosphatase (46-116) U/L Troponin I (<0.06) ng/mL NT-Pro-B Natriuret Pep (<300) pg/mL Total Protein (6.4-8.2) g/dL Albumin (3.4-5.0) g/dL Urine Color (Yellow) Urine Clarity (Clear) Urine pH (5-8) Ur Specific [place] (1.005-1.025) Urine Protein (Negative) mg/dL Urine Ketones (Negative) mg/dL Urine Blood (Negative) Urine Nitrite (Negative) Urine Bilirubin (Negative) Urine Urobilinogen (Up TO 0.2) EU/dL Ur Leukocyte Esterase (Negative) Urine RBC (0-2) HPF Urine WBC (0-5) HPF Ur Epithelial Cells (Negative) HPF Urine Crystals (Negative) HPF Urine Bacteria (Negative) HPF Urine Casts (Negative) LPF Urine Mucus (Negative) Ur Culture Indicated? Urine Glucose (Negative) mg/dL ECG Data Attestation: I personally reviewed and interpreted this ECG (s) as follows: Interpretation: Please see official report by Dr. Vergara. Sinus tachycardia, ventricular of 100. No STEMI <DELORES Gallardo - Last Filed: 03/19/21 23:23> Care transition myself from Alejandro Rodríguez PA-C with imaging pending. Please see his initial note regarding history, presentation and exam. REevaluated patient. She states that she is also concerned about her BLE edema. She is concerned that the CT will not evaluate for DVT. We do not have US available at this time. I did examine her legs, she has 1+ BLE edema, no calf tenderness, no palpable cord. 2+ distal pulses Patient back from CT, requesting food. She states she would use 2U SC Npvolog with this. FINDINGS: Pulmonary arteries: Normal. No pulmonary emboli. Aorta: The aorta demonstrates mild atherosclerotic calcification. Other arteries: Chronic aortic mural thrombus is noted at the level of the celiac artery, unchanged when compared to the prior CT. Lungs: Review of the lung windows reveals mild diffuse ground-glass opacities, particularly within the dependent aspect of the lower lobes. Pleural spaces: Unremarkable. No pneumothorax. No pleural effusion. Heart: A pericardial effusion is present. Coronary artery calcifications are present. Lymph nodes: Unremarkable. No enlarged lymph nodes. Bones/joints: Chronic degenerative changes of the spine are present. . A hemangioma within the T8 vertebral body appears stable. Soft tissues: Unremarkable. IMPRESSION: 1. No evidence of pulmonary embolism. 2. Atherosclerosis. 3. Pericardial effusion. 4. Atherosclerotic coronary artery disease. 5. Non-specific mild ground-glass opacities within the dependent aspects of the lower lobe. This is most likely cardiogenic in origin. However, atypical pneumonia cannot be excluded. She ahs been hemodynamically stable, has no electrical alternans or low voltage on ECG. BNP and troponin normal. Patient has normal pulse. No pulses paradoxus. Lungs are clear. Will discuss with patients oncology team. Spoke with Dr. Biggs with [facility] cardiology. He advised that the gemcitabine frequently causes edema but the cardiac effusions are much less common. He recommended consultation with cardiology Elevated with [facility] cardiology. He reviewed the images and advised that the findings on CT is not consistent with a large effusion. He advised that the fluid using is not large enough to cause hemodynamic significance. We did review the patient's heart rate is chronically elevated in the 90s to low 100s. We discussed disposition. He advised diuresis and echo. Will admit the patient for this. Discussed this plan with the patient who is in agreement. We will begin on Lasix IV. Also spoke with the patient's daughter, Trinity, at patient's request Spoke with Dr. Hunter who agrees to admission for diuresis and echo. Patient has next appointment with oncology on Monday. HPI <DELORES Palm - Last Filed: 03/20/21 08:10> General Mode of arrival: ambulatory. Date/Time Provider Initiated Documentation: 03/19/21 11:32. Limitations to Documentation: no limitations. Information obtained by: patient. HPI Narrative: This is a 65-year-old female, past medical history that includes diabetes and current treatment for urothelial cancer of the right upper tract. She is followed by Dr. Simons. She had her last infusion 1 week ago and since that time reports increasing shortness of breath, bilateral leg swelling, general fatigue. She denies fever, chest pain, cough, abdominal pain, nausea, vomiting, dysuria, hematuria, numbness, tingling, weakness. She is currently being treated for a right upper arm extremity with Cipro, on day 5 of 5, reports it is getting better but has not resolved completely. She is scheduled to be seen by her oncology team on Monday but came to the ER for the increasing shortness of breath and bilateral leg swelling. She has been treated with Neulasta, recent infusions of C2D8 and Gemcitabine. Related Data Home Medications Medication Instructions Recorded Confirmed cholecalciferol (vitamin D3) 1,000 iu PO DAILY #100 tab-cap 07/31/14 03/19/21 nystatin-triamcinolone 1 applic TOPICAL BID PRN #12 box 09/01/16 03/19/21 metformin 1,000 mg PO BID #180 tab-cap 09/12/16 03/19/21 insulin aspart U-100 [Novolog 0 - 6 units SUB-Q TID PRN 10/11/16 03/19/21 Flexpen U-100 Insulin] OneTouch Ultra Test #400 strip 10/18/16 03/19/21 naproxen sodium [Aleve] 1 cap PO DAILY PRN 10/25/16 03/19/21 losartan 100 mg PO DAILY #90 tab-cap 11/25/16 03/19/21 amlodipine 5 mg PO DAILY #90 tab-cap 01/20/17 03/19/21 Tresiba FlexTouch U-100 58 unit SQ QAM 03/15/17 03/19/21 lidocaine-prilocaine 30 gm TOPICAL Q4H PRN #1 tube 09/14/17 03/19/21 ciprofloxacin HCl 250 mg PO BID 03/19/21 03/19/21 polyethylene glycol 3350 17 g PO PRN PRN 03/19/21 03/19/21 prochlorperazine maleate 10 mg PO Q6H 03/19/21 03/19/21 sennosides [senna] 17.2 mg PO BID 03/19/21 03/19/21 spironolactone 12.5 mg PO DAILY 03/19/21 03/19/21 Previous Rx's Medication Instructions Recorded lidocaine-prilocaine 30 gm TOPICAL Q4H PRN #1 tube 09/14/17 Allergies Allergy/AdvReac Type Severity Reaction Status Date / Time Sulfa (Sulfonamide Allergy Severe rash Unverified 03/19/21 11:42 Antibiotics) adhesive Allergy Intermediate Skin Rash Unverified 03/19/21 11:42 exenatide microspheres Allergy Unknown Unverified 03/19/21 11:42 [From Bydureon] loratadine AdvReac Severe MADE HER Unverified 03/19/21 11:42 FEEL HYPER celecoxib [From Celebrex] AdvReac Intermediate Pt states Unverified 03/19/21 11:42 side effects unspecified gluten AdvReac Intermediate Diarrhea Unverified 03/19/21 11:42 lactose AdvReac Intermediate Diarrhea Unverified 03/19/21 11:42 Mqysxtd-Ybb-Ycb Reductase AdvReac Unverified 03/19/21 11:42 Inhibitor General Stated Complaint: GenMedical NEHA: 3 Review of Systems <DELORES Palm - Last Filed: 03/20/21 08:10> Constitutional Constitutional: Reports fatigue, Denies fever(s) and Denies weakness Eyes Eyes: Denies change in vision ENT Ears, Nose, Mouth, and Throat: Denies neck pain Cardiovascular Cardiovascular: Denies chest pain and Reports dyspnea Respiratory Respiratory: Denies cough and Reports dyspnea Gastrointestinal Gastrointestinal: Denies abdominal pain, Denies nausea and Denies vomiting Genitourinary Genitourinary: Denies dysuria Musculoskeletal Musculoskeletal: Reports myalgias, Denies neck pain, Denies numbness and Denies tingling Integumentary/Breasts Skin/Breast: Denies rash Neurologic Neurologic: Denies numbness, Denies tingling and Denies weakness Psychiatric Psychiatric: Reports anxiety Endocrine Endocrine: Reports fatigue Hematologic/Lymphatic Hematologic/Lymphatic: Denies easy bleeding and Denies easy bruising PFSH <DELORES Palm - Last Filed: 03/20/21 08:10> Medical History Anxiety Depression Diabetes Gastritis and duodenitis GERD (gastroesophageal reflux disease) History of colon polyps Hyperlipidemia Hypertension Obesity Osteoarthritis Surgical History Abdominal hysterectomy (~11/2010) for fibroid Bilateral salpingectomy with oophorectomy Biopsy of breast cyst excised-left section Colonoscopy - MAC (01/10/17) EGD - MAC (01/10/17) Extraction of cataract (11/10/16) LEFT EYE; DR. MORRIS Hemorrhoidectomy and anal fissure repair Hernia Repair, Incisional OOPHRECTOMY, UNILATERAL (~1991) , Ectopic (~1991) Family History Mother Personal history of malignant neoplasm UTERINE Father Personal history of malignant neoplasm COLON Brother Heart disease Brother No problems noted. Brother No problems noted. Grandfather Personal history of malignant neoplasm Grandfather No problems noted. Grandmother Personal history of malignant neoplasm Stroke Grandmother Diabetes Personal history of malignant neoplasm Social History Smoking/Tobacco Use Status: Former Tobacco Use Smoking risk assessment performed?: Yes Alcohol Intake: never Drug use: Never Details: vapor use Do you feel safe at home: Yes Do you feel safe in your relationship?: Yes Exam <DELORES Palm - Last Filed: 03/20/21 08:10> Const General: cooperative, comfortable, no acute distress and anxious Orientation: alert, awake and oriented x3 HENMT Head: normal to inspection, normocephalic and atraumatic Face and sinus: normal facial exam Mouth: moist mucous membranes Eyes General: appearance normal, both eyes and all related structures Conjunctivae: conjunctivae normal Neck Neck: normal visual inspection, full ROM, trachea midline and supple Resp Effort & Inspection: normal respiratory effort and able to speak in complete sentences Auscultation: diminished lung sounds bilaterally in the lower lung [place] Cardio Rate: tachycardic (104) Rhythm: regular rhythm GI Inspection: normal to inspection Palpation: soft and nontender Back/Spine/Pelvis Back: No back tenderness Skin General skin exam: no rashes or lesions noted Neuro General: patient alert, patient awake, patient oriented x3, moves all extremities and no focal motor deficits Cognition: normal cognition Speech: speech normal Motor: muscle tone normal throughout and strength 5/5 throughout Sensory Exam: no sensory deficits noted Extrem General: full ROM, capillary refill normal, no calf tenderness, normal gait and edema Laterality: bilateral (1-2+) Other: Right upper extremity, mid right forearm with a marble sized area of swelling, minimal tenderness, no induration or fluctuance. No erythema or warmth. Per patient this is improving significantly but has not resolved completely Psych Appearance: grossly normal Mental Status: mental status grossly normal Course <DELORES Palm - Last Filed: 03/20/21 08:10> Vital Signs Vital signs: Vital Signs Temperature 36.6 C 03/19/21 11:33 Pulse 102 H 03/19/21 11:33 Respiratory Rate 20 03/19/21 11:33 Blood Pressure 163/77 H 03/19/21 11:33 Pulse Oximetry 97 03/19/21 11:33 Temperature 36.6 C 03/19/21 11:33 Temperature Source Skin 03/19/21 11:33 Pulse 105 H 03/19/21 13:16 Pulse 104 H 03/19/21 13:40 Respiratory Rate 28 H 03/19/21 13:40 Respiratory Effort Non-Labored 03/19/21 13:16 Respiratory Depth Normal 03/19/21 13:16 Respiratory Pattern Normal 03/19/21 13:16 Blood Pressure 195/113 H 03/19/21 13:16 Blood Pressure Mean 124 03/19/21 13:16 Blood Pressure Position Sitting 03/19/21 11:33 Pulse Oximetry 95 03/19/21 13:40 Oxygen Delivery Method Room Air 03/19/21 11:33 Oxygen Flow Rate 0 03/19/21 11:33 Pain Level 0 03/19/21 11:33 Comment 03/19/21 11:33 Lab/Test Results Lab/Test Results: 03/19/21 12:55 Urine - Reflex from Ua Urine Culture - Pending Laboratory Tests Range/Units 03/19/21 03/19/21 03/19/21 12:55 13:40 13:40 WBC (4.4-10.8) 10^3/uL 41.62 H* RBC (3.93-5.22) 10^6/uL 3.03 L Hgb (11.2-15.7) g/dL 8.7 L Hct (36.0-46.0) % 27.6 L MCV (80-95) fL 91.1 MCH (27.0-33.0) pg 28.7 MCHC (32.0-36.0) % 31.5 L RDW (11.7-14.6) % 13.5 Plt Count (130-400) 10^3/uL 126 L MPV (8.0-11.0) fL 10.8 Immature Gran % See Differential Neutrophils % 59.0 Band Neutrophils % 11 Lymphocytes % 8.0 Monocytes % 7.0 Eosinophils % 0.0 Basophils % 1.0 Metamyelocytes % 4 Myelocytes % 9 Other Cells % 1 Nucleated RBC % % 1 Absolute Neutrophils (1.2-6.7) 10^3/uL 29.13 H Absolute Lymphocytes (1.2-3.4) 10^3/uL 3.33 Absolute Monocytes (0.1-0.8) 10^3/uL 2.91 H Absolute Eosinophils (0.0-0.7) 10^3/uL 0.00 Absolute Basophils (0.0-0.2) 10^3/uL 0.42 H RBC Morphology See below Polychromasia Present PT (9.3-11.0) sec INR (0.9-1.1) APTT (21.0-27.5) sec Sodium (136-145) mmol/L 140 Potassium (3.5-5.1) mmol/L 4.4 Chloride (98-107) mmol/L 104 Carbon Dioxide (21.0-32.0) mmol/L 28.2 Anion Gap (3-11) mmol/L 7.8 BUN (7-18) mg/dL 29 H Creatinine (0.55-1.02) mg/dL 1.3 H Estimated GFR/1.73 m2 (mL/min/1.73m2) 40.98 Glucose (74-106) mg/dL 126 H Calcium (8.5-10.1) mg/dL 9.6 Magnesium (1.8-2.4) mg/dL 2.0 Total Bilirubin (0.2-1.0) mg/dL 0.2 AST (15-37) U/L 29 ALT (14-59) U/L 36 Alkaline Phosphatase (46-116) U/L 232 H Troponin I (<0.06) ng/mL 0.05 NT-Pro-B Natriuret Pep (<300) pg/mL 3768 H Total Protein (6.4-8.2) g/dL 7.6 Albumin (3.4-5.0) g/dL 3.0 L Urine Color (Yellow) Yellow Urine Clarity (Clear) Clear Urine pH (5-8) 7.0 Ur Specific [place] (1.005-1.025) 1.015 Urine Protein (Negative) mg/dL 100 H Urine Ketones (Negative) mg/dL Negative Urine Blood (Negative) Small H Urine Nitrite (Negative) Negative Urine Bilirubin (Negative) Negative Urine Urobilinogen (Up TO 0.2) EU/dL 0.2 Ur Leukocyte Esterase (Negative) Trace H Urine RBC (0-2) HPF 0-2 Urine WBC (0-5) HPF >50 H Ur Epithelial Cells (Negative) HPF Few Urine Crystals (Negative) HPF Negative Urine Bacteria (Negative) HPF Few Urine Casts (Negative) LPF Negative Urine Mucus (Negative) Negative Ur Culture Indicated? Yes Urine Glucose (Negative) mg/dL Negative Range/Units 03/19/21 13:40 WBC (4.4-10.8) 10^3/uL RBC (3.93-5.22) 10^6/uL Hgb (11.2-15.7) g/dL Hct (36.0-46.0) % MCV (80-95) fL MCH (27.0-33.0) pg MCHC (32.0-36.0) % RDW (11.7-14.6) % Plt Count (130-400) 10^3/uL MPV (8.0-11.0) fL Immature Gran % Neutrophils % Band Neutrophils % Lymphocytes % Monocytes % Eosinophils % Basophils % Metamyelocytes % Myelocytes % Other Cells % Nucleated RBC % % Absolute Neutrophils (1.2-6.7) 10^3/uL Absolute Lymphocytes (1.2-3.4) 10^3/uL Absolute Monocytes (0.1-0.8) 10^3/uL Absolute Eosinophils (0.0-0.7) 10^3/uL Absolute Basophils (0.0-0.2) 10^3/uL RBC Morphology Polychromasia PT (9.3-11.0) sec 9.8 INR (0.9-1.1) 1.0 APTT (21.0-27.5) sec 20.3 L Sodium (136-145) mmol/L Potassium (3.5-5.1) mmol/L Chloride (98-107) mmol/L Carbon Dioxide (21.0-32.0) mmol/L Anion Gap (3-11) mmol/L BUN (7-18) mg/dL Creatinine (0.55-1.02) mg/dL Estimated GFR/1.73 m2 (mL/min/1.73m2) Glucose (74-106) mg/dL Calcium (8.5-10.1) mg/dL Magnesium (1.8-2.4) mg/dL Total Bilirubin (0.2-1.0) mg/dL AST (15-37) U/L ALT (14-59) U/L Alkaline Phosphatase (46-116) U/L Troponin I (<0.06) ng/mL NT-Pro-B Natriuret Pep (<300) pg/mL Total Protein (6.4-8.2) g/dL Albumin (3.4-5.0) g/dL Urine Color (Yellow) Urine Clarity (Clear) Urine pH (5-8) Ur Specific [place] (1.005-1.025) Urine Protein (Negative) mg/dL Urine Ketones (Negative) mg/dL Urine Blood (Negative) Urine Nitrite (Negative) Urine Bilirubin (Negative) Urine Urobilinogen (Up TO 0.2) EU/dL Ur Leukocyte Esterase (Negative) Urine RBC (0-2) HPF Urine WBC (0-5) HPF Ur Epithelial Cells (Negative) HPF Urine Crystals (Negative) HPF Urine Bacteria (Negative) HPF Urine Casts (Negative) LPF Urine Mucus (Negative) Ur Culture Indicated? Urine Glucose (Negative) mg/dL Sign Out <DELORES Palm - Last Filed: 03/20/21 08:10> Sign Out Data: Sign Out Comment: Consult with oncology, Dr. Biggs. Establishing IV access and obtaining CTA of chest. Last updated by Erick Rodríguez PA at 03/19/21 16:16
--- NOTE | 2021-03-19 15:30 | DI.CT_ITS ---
EXAM: CT CHEST PE CTA CLINICAL HISTORY: Renal CA, SOB,TACHY, elevated bnp. TECHNIQUE: Imaging Protocol: CT angiography of the chest was performed using pulmonary embolus [place] col. Multi planar reconstructions were performed. CONTRAST MATERIAL: Intravenous: Omnipaque 350 Contrast volume: 100 cc COMPARISON: CT CT RENAL COLIC WO from 02/09/2021 FINDINGS: CHEST: PULMONARY ARTERIES: There are no obvious intraluminal filling defects to suggest acute pulmonary embo li. LUNGS: Extensive bilateral ground-glass infiltrates, relatively symmetrical. No associated pleural ef fusions. No focal findings in the trachea and mainstem bronchi. MEDIASTINUM: There is no hilar nor mediastinal adenopathy. Visualized thyroid unremarkable. CARDIAC: Heart size upper normal. There is a moderate-sized pericardial effusion with maximum thickn ess 1.6 cm. Coronary artery calcification is noted. Caliber of the thoracic aorta is within normal limits. Significant atherosclerotic findings are seen in the descending thoracic aorta and as well a s in the visualized upper most abdominal aorta. There is no significant shift of the interventricula r septum. PARTIALLY VISUALIZED UPPERMOST ABDOMEN: Suggestion of a 1.2 x 1.2 cm nodule in the medial limb of the left adrenal gland. Right adrenal gland appears unremarkable. OSSEOUS: Benign intraosseous hemangioma noted within T9 vertebral body. IMPRESSION: 1. No evidence of acute pulmonary emboli. However, there are extensive bilateral ground-glass type i nfiltrates which may be cardiogenic but recommend testing for Covid-19..No intrathoracic adenopathy. No pleural effusions. 2. There is a moderate-sized pericardial effusion. 3. Coronary artery calcification and significant atherosclerotic disease in the descending thoracic a sandy and small part of the upper abdominal aorta which is seen in the field of view here on this ches t study. RADIATION DOSE DELIVERED: 428.47mGy.cm Total DLP DATA REPOSITORY: All CT scans at this facility are submitted to the National Radiology Data Registry (NRDR) Dose Index Registry (DIR) with the [employer] (A[employer]). RADIATION OPTIMIZATION: All CT scans at this facility use at least one of these dose optimization te chniques: automated exposure control; mA and/or kV adjustment per patient size (includes targeted exa ms where dose is matched to clinical indication); or iterative reconstruction.
--- NOTE | 2021-03-19 17:06 | DI.VRAD_ITS ---
PROCEDURE INFORMATION: Exam: CTA Chest With Contrast Exam date and time: 03/19/2021 4:44 PM Age: 65 years old Clinical indication: Shortness of breath and tachypnea; Patient HX: Renal CA, SOB, tachy, elevated bnp TECHNIQUE: Imaging protocol: Computed tomographic angiography of the chest with contrast. 3D rendering (Not supervised by radiologist): MIP and/or 3D reconstructed images were created by the technologist. COMPARISON: CT ABD PELVIS WITH CONTRAST 04/21/2017 10:04:55 AM FINDINGS: Pulmonary arteries: Normal. No pulmonary emboli. Aorta: The aorta demonstrates mild atherosclerotic calcification. Other arteries: Chronic aortic mural thrombus is noted at the level of the celiac artery, unchanged when compared to the prior CT. Lungs: Review of the lung windows reveals mild diffuse ground-glass opacities, particularly within the dependent aspect of the lower lobes. Pleural spaces: Unremarkable. No pneumothorax. No pleural effusion. Heart: A pericardial effusion is present. Coronary artery calcifications are present. Lymph nodes: Unremarkable. No enlarged lymph nodes. Bones/joints: Chronic degenerative changes of the spine are present. . A hemangioma within the T8 vertebral body appears stable. Soft tissues: Unremarkable. IMPRESSION: 1. No evidence of pulmonary embolism. 2. Atherosclerosis. 3. Pericardial effusion. 4. Atherosclerotic coronary artery disease. 5. Non-specific mild ground-glass opacities within the dependent aspects of the lower lobe. This is most likely cardiogenic in origin. However, atypical pneumonia cannot be excluded. Dictated and Authenticated by: Lawrence Bustamante MD. Ordering:MILY Suarez MD
[2021-03-19] MEDS: Insulin Aspart 100 UNITS/ML UNIT SC (17:27)
[2021-03-19 18:41] LABS: Source Nasal/Nares
--- NOTE | 2021-03-19 18:53 | HPE_ITS ---
Date of service: 03/19/21 Time of Service: 18:54 Assessment and Plan Assessment and plan (1) Pericardial effusion: Status: Acute Assessment and plan: This pericardial effusion appears to be moderate at this time. She will need an echocardiogram. This will not be able to be done for the next 3 days until Monday. There is no sign of tamponade at this time. (2) Bilateral lower extremity edema: Status: Acute Assessment and plan: This edema is likely due to her chemotherapeutic agent. We will treat her with furosemide intravenously at this time. Will monitor daily weights and progress over her hospitalization. We will watch her electrolytes. (3) Leukocytosis: Status: Acute Assessment and plan: She had a 30,000 white blood cell count few days ago. I am not sure if she has received a leukocyte stimulating treatment. We will check blood cultures now and a urinalysis. She will have a coronavirus test also. History of Present Illness History of Present Illness Chief Complaint: Shortness of breath and lower leg edema. 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 She has a stent in place. She has been receiving chemotherapy and last had a visit with oncology 3 days ago. At that time she was started on prochlorperazine for gastroesophageal reflux disease. She is set up to see oncology in 4 more days for a repeat chemotherapy infusion. She started developing swelling of her ankles number of days ago but that has gotten worse with both ankle lower leg and thigh swelling. She is also developed dyspnea and fatigue. She presented to the emergency department today with these symptoms. She had extensive evaluation which showed her BNP to be elevated. She also has an elevated white blood cell count and she has changes on her chest x-ray which the radiologist suggests that her lungs show cardiogenic edema. She also has moderate sized pericardial effusion. The patient's had chronic chest pain which she thinks is due to food ingestion. This pain is in the central chest and radiates to the left arm. She thinks the Compazine has been helping. She has chronic abdominal pain. She has not been around anyone who has been sick. She had not had coronavirus vaccine and has not had known coronavirus exposure or travel. Review of Systems Constitutional Constitutional: Denies chills, Reports fatigue, Denies fever(s) and Reports poor appetite Cardiovascular Cardiovascular: Reports chest pain at rest, Reports leg edema and Reports dyspnea on exertion Respiratory Respiratory: Reports dyspnea on exertion and Denies wheezing Gastrointestinal Gastrointestinal: Denies diarrhea, Reports nausea and Denies vomiting Endocrine Endocrine: Reports fatigue Allergic/Immunologic Allergic/Immunologic: Denies wheezing [facility] Medical History Anxiety Depression Diabetes Gastritis and duodenitis GERD (gastroesophageal reflux disease) History of colon polyps Hyperlipidemia Hypertension Obesity Osteoarthritis Surgical History Abdominal hysterectomy (~11/2010) for fibroid Bilateral salpingectomy with oophorectomy Biopsy of breast cyst excised-left section Colonoscopy - MAC (01/10/17) EGD - MAC (01/10/17) Extraction of cataract (11/10/16) LEFT EYE; DR. MORRIS Hemorrhoidectomy and anal fissure repair Hernia Repair, Incisional OOPHRECTOMY, UNILATERAL (~1991) , Ectopic (~1991) Family History Mother Personal history of malignant neoplasm UTERINE Father Personal history of malignant neoplasm COLON Brother Heart disease Brother No problems noted. Brother No problems noted. Grandfather Personal history of malignant neoplasm Grandfather No problems noted. Grandmother Personal history of malignant neoplasm Stroke Grandmother Diabetes Personal history of malignant neoplasm Social History Smoking/Tobacco Use Status: Former Tobacco Use Smoking risk assessment performed?: Yes Alcohol Intake: never Drug use: Never Details: vapor use Do you feel safe at home: Yes Do you feel safe in your relationship?: Yes Meds Allergies and Home Medications Allergies Allergy/AdvReac Type Severity Reaction Status Date / Time Sulfa (Sulfonamide Allergy Severe rash Unverified 03/19/21 11:42 Antibiotics) adhesive Allergy Intermediate Skin Rash Unverified 03/19/21 11:42 exenatide microspheres Allergy Unknown Unverified 03/19/21 11:42 [From Bydureon] loratadine AdvReac Severe MADE HER Unverified 03/19/21 11:42 FEEL HYPER celecoxib [From Celebrex] AdvReac Intermediate Pt states Unverified 03/19/21 11:42 side effects unspecified gluten AdvReac Intermediate Diarrhea Unverified 03/19/21 11:42 lactose AdvReac Intermediate Diarrhea Unverified 03/19/21 11:42 Pexietz-Lbp-Bio Reductase AdvReac Unverified 03/19/21 11:42 Inhibitor Home Medications Medication Instructions Recorded Confirmed Type cholecalciferol (vitamin D3) 1,000 iu PO DAILY #100 tab-cap 07/31/14 03/19/21 History nystatin-triamcinolone 1 applic TOPICAL BID PRN #12 box 09/01/16 03/19/21 History metformin 1,000 mg PO BID #180 tab-cap 09/12/16 02/09/21 History insulin aspart U-100 [Novolog 0 - 6 units SUB-Q TID PRN 10/11/16 03/19/21 History Flexpen U-100 Insulin] blood sugar diagnostic [OneTouch #400 strip 10/18/16 History Ultra Test] naproxen sodium [Aleve] 1 cap PO DAILY PRN 10/25/16 02/09/21 History losartan 100 mg PO DAILY #90 tab-cap 11/25/16 03/19/21 History amlodipine 5 mg PO DAILY #90 tab-cap 01/20/17 02/09/21 History Tresiba FlexTouch U-100 58 unit SQ QAM 03/15/17 03/19/21 History lidocaine-prilocaine 30 gm TOPICAL Q4H PRN #1 tube 09/14/17 Rx ciprofloxacin HCl 250 mg PO BID 03/19/21 03/19/21 History polyethylene glycol 3350 17 g PO PRN PRN 03/19/21 03/19/21 History prochlorperazine maleate 10 mg PO Q6H 03/19/21 03/19/21 History sennosides [senna] 17.2 mg PO BID 03/19/21 03/19/21 History spironolactone 12.5 mg PO DAILY 03/19/21 03/19/21 History Exam Const General: cooperative, comfortable and no acute distress Orientation: alert and oriented x3 HENMT Ears: hearing grossly normal bilaterally Eyes Eyelids: eyelids normal Conjunctivae: conjunctivae normal Sclera: sclerae normal Neck Thyroid: thyroid normal Lymphatic: no lymphadenopathy noted Resp Effort & Inspection: normal respiratory effort, able to speak in complete sentences, no nasal flaring and no respiratory distress Auscultation: no rales, no rhonchi and no rubs Tactile Fremitus: tactile fremitus absent Cardio Jugular venous pressure: no JVD Rate: regular rate Rhythm: regular rhythm Heart Sounds: S1 normal, S2 normal, no murmurs and no rubs GI Inspection: normal to inspection and no abdominal wall ecchymosis Palpation: soft, no hepatosplenomegaly and nontender Skin General skin exam: no rashes or lesions noted Extrem Right lower extremity: edema Left lower extremity: edema Other: +2 edema of both lower legs and thighs. No calf tenderness. Results Labs Result diagrams: 03/19/21 13:40 03/19/21 13:40 Labs: Laboratory Results - last 24 hr 03/19/21 03/19/21 03/19/21 12:55 13:40 13:40 WBC 41.62 H* RBC 3.03 L Hgb 8.7 L Hct 27.6 L MCV 91.1 MCH 28.7 MCHC 31.5 L RDW 13.5 Plt Count 126 L MPV 10.8 Immature Gran % See Differential Neutrophils % 59.0 Band Neutrophils % 11 Lymphocytes % 8.0 Monocytes % 7.0 Eosinophils % 0.0 Basophils % 1.0 Metamyelocytes % 4 Myelocytes % 9 Other Cells % 1 Nucleated RBC % 1 Absolute Neutrophils 29.13 H Absolute Lymphocytes 3.33 Absolute Monocytes 2.91 H Absolute Eosinophils 0.00 Absolute Basophils 0.42 H RBC Morphology See below Polychromasia Present PT INR APTT Sodium 140 Potassium 4.4 Chloride 104 Carbon Dioxide 28.2 Anion Gap 7.8 BUN 29 H Creatinine 1.3 H Estimated GFR/1.73 m2 40.98 Glucose 126 H Calcium 9.6 Magnesium 2.0 Total Bilirubin 0.2 AST 29 ALT 36 Alkaline Phosphatase 232 H Troponin I 0.05 NT-Pro-B Natriuret Pep 3768 H Total Protein 7.6 Albumin 3.0 L Urine Color Yellow Urine Clarity Clear Urine pH 7.0 Ur Specific [place] 1.015 Urine Protein 100 H Urine Ketones Negative Urine Blood Small H Urine Nitrite Negative Urine Bilirubin Negative Urine Urobilinogen 0.2 Ur Leukocyte Esterase Trace H Urine RBC 0-2 Urine WBC >50 H Ur Epithelial Cells Few Urine Crystals Negative Urine Bacteria Few Urine Casts Negative Urine Mucus Negative Ur Culture Indicated? Yes Urine Glucose Negative COVID-19 Source 03/19/21 03/19/21 13:40 18:35 WBC RBC Hgb Hct MCV MCH MCHC RDW Plt Count MPV Immature Gran % Neutrophils % Band Neutrophils % Lymphocytes % Monocytes % Eosinophils % Basophils % Metamyelocytes % Myelocytes % Other Cells % Nucleated RBC % Absolute Neutrophils Absolute Lymphocytes Absolute Monocytes Absolute Eosinophils Absolute Basophils RBC Morphology Polychromasia PT 9.8 INR 1.0 APTT 20.3 L Sodium Potassium Chloride Carbon Dioxide Anion Gap BUN Creatinine Estimated GFR/1.73 m2 Glucose Calcium Magnesium Total Bilirubin AST ALT Alkaline Phosphatase Troponin I NT-Pro-B Natriuret Pep Total Protein Albumin Urine Color Urine Clarity Urine pH Ur Specific [place] Urine Protein Urine Ketones Urine Blood Urine Nitrite Urine Bilirubin Urine Urobilinogen Ur Leukocyte Esterase Urine RBC Urine WBC Ur Epithelial Cells Urine Crystals Urine Bacteria Urine Casts Urine Mucus Ur Culture Indicated? Urine Glucose COVID-19 Source Nasal/nares Last Vital Signs Temp 36.6 C 03/19/21 11:33 Pulse 106 H 03/19/21 16:31 Resp 25 H 03/19/21 16:32 BP 173/98 H 03/19/21 16:31 Pulse Ox 95 03/19/21 16:01 COVID-19 Screening Have you, or household traveled for leisure in last 14 days?: No Had IN PERSON contact w/suspected or confirmed C-19 person: No
[2021-03-19] MEDS: Normal Saline Flush 10 ML SYR IVP (20:42)
[2021-03-19] MEDS: Furosemide 20 MG/2 ML VIAL IVP (20:42)
[2021-03-19] MEDS: Ciprofloxacin 250 MG TAB PO (20:43)
[2021-03-19] MEDS: Senna TAB 2 TAB PO (20:43)
--- NOTE | 2021-03-19 20:55 | DI.VRAD_ITS ---
Addendum created by Lawrence Bustamante MD on 03/19/2021 8:55:18 PM EDT: This addendum is in response to an inquiry regarding the pericardium. No discrete pericardial mass is seen. A pericardial effusion is present, appearing thicker posteriorly as pericardial effusions frequently appear. No abnormal pericardial enhancement is seen. I cannot entirely exclude a pericardial malignancy. Correlation with an echocardiogram is recommended if this is a clinical concern. Initial report created on 03/19/2021 5:05:54 PM EDT: PROCEDURE INFORMATION: Exam: CTA Chest With Contrast Exam date and time: 03/19/2021 4:44 PM Age: 65 years old Clinical indication: Shortness of breath and tachypnea; Patient HX: Renal CA, SOB, tachy, elevated bnp TECHNIQUE: Imaging protocol: Computed tomographic angiography of the chest with contrast. 3D rendering (Not supervised by radiologist): MIP and/or 3D reconstructed images were created by the technologist. COMPARISON: CT ABD PELVIS WITH CONTRAST 04/21/2017 10:04:55 AM FINDINGS: Pulmonary arteries: Normal. No pulmonary emboli. Aorta: The aorta demonstrates mild atherosclerotic calcification. Other arteries: Chronic aortic mural thrombus is noted at the level of the celiac artery, unchanged when compared to the prior CT. Lungs: Review of the lung windows reveals mild diffuse ground-glass opacities, particularly within the dependent aspect of the lower lobes. Pleural spaces: Unremarkable. No pneumothorax. No pleural effusion. Heart: A pericardial effusion is present. Coronary artery calcifications are present. Lymph nodes: Unremarkable. No enlarged lymph nodes. Bones/joints: Chronic degenerative changes of the spine are present. . A hemangioma within the T8 vertebral body appears stable. Soft tissues: Unremarkable. IMPRESSION: 1. No evidence of pulmonary embolism. 2. Atherosclerosis. 3. Pericardial effusion. 4. Atherosclerotic coronary artery disease. 5. Non-specific mild ground-glass opacities within the dependent aspects of the lower lobe. This is most likely cardiogenic in origin. However, atypical pneumonia cannot be excluded. Dictated and Authenticated by: Lawrence Bustamante MD. Ordering:MILY Suarez MD
[2021-03-19] MEDS: Omeprazole 20 MG CAPCR PO (22:02)
--- NOTE | 2021-03-19 23:06 | NUR.NOTE ---
pt very demanding. requesting to have a cardiac surgeon. wants to know why she does not have one and wants the physicain to come in right now and see her. Dr hdez called again. Nursing Note:
[2021-03-19 23:14] LABS: COVID-19 PCR Negative (Negative)
[2021-03-20] VITALS (8 sets, daily range): BP systolic 96–188; BP diastolic 53–98; PULSE 82–109; RESP 16–19; TEMP 36.3–37.2; O2SAT 93–95
[2021-03-20 07:20] LABS: HCT 25.1 % (36.0-46.0); MCH 28.5 pg (27.0-33.0); MCHC 31.9 % (32.0-36.0); MCV 89.3 fL (80-95); MPV 11.5 fL (8.0-11.0); Nucleated RBC 1 %; RBC 2.81 10^6/uL (3.93-5.22); RDW 13.8 % (11.7-14.6); RDW-SD 41.9 fL
[2021-03-20 07:34] LABS: Anion Gap 6.6 mmol/L (3-11); BUN 25 mg/dL (7-18); CO2 28.4 mmol/L (21.0-32.0); CREATININE 1.5 mg/dL (0.55-1.02); Calcium 9.2 mg/dL (8.5-10.1); Chloride 104 mmol/L (98-107); Estimated GFR 34.74 (mL/min/1.73m2); Glucose 140 mg/dL (74-106); Potassium 4.6 mmol/L (3.5-5.1); Sodium 139 mmol/L (136-145)
[2021-03-20 08:01] LABS: Absolute Lymphocyte Count 1.65 10^3/uL (1.2-3.4); Absolute Monocyte Count 2.31 10^3/uL (0.1-0.8); Absolute Neutrophil Count 24.42 10^3/uL (1.2-6.7); Bands % 13; Platelet Count 127 10^3/uL (130-400)
[2021-03-20 08:02] LABS: Diff Comment Manual Differential; Metamyelocytes % 5; Myelocytes % 6; Other Cells % 3
[2021-03-20] MEDS: Spironolactone 25 MG TAB 12.5 MG PO (08:02)
[2021-03-20] MEDS: Ciprofloxacin 250 MG TAB PO ×2 (08:02→19:45)
[2021-03-20] MEDS: Senna TAB 2 TAB PO ×2 (08:02→19:45)
[2021-03-20] MEDS: Losartan 50 MG TAB 100 MG PO (08:02)
[2021-03-20] MEDS: Cholecalciferol (Vitamin D3) 1,000 UNIT TAB 1000 UNITS PO (08:02)
[2021-03-20 08:03] LABS: Hypochromasia 2+; Polychromasia Present
[2021-03-20] MEDS: Normal Saline Flush 10 ML SYR IVP ×2 (09:49→16:01)
[2021-03-20] MEDS: Furosemide 20 MG/2 ML VIAL IVP ×2 (09:49→16:01)
--- NOTE | 2021-03-20 10:57 | W.PM.PROGNOT ---
Date of Service Date of service: 03/20/21 Time of Service: 10:57 Assessment and Plan Assessment and plan (1) Acute CHF: Status: Acute Assessment and plan: Continue lasix IV, PO spironolactone. Check TSH/FT4. Obtain echo. Monitor on tele. Given more extensive edema on this visit than when it had occurred previously, DVT must be ruled out. Until DVT ruled out, would treat with IV heparin - discussed with Dr Bella of [facility] hem/onc who states that there are no current contraindications to treatment, but if hematuria recurs, would need to be reassessed. (2) Superficial thrombophlebitis of right upper extremity: Status: Acute Assessment and plan: Continue cipro. Repeat Venous doppler of RLE to monitor for extension. Anticoagulate empirically. (3) Bilateral lower extremity edema: Status: Acute Assessment and plan: Possible due to gemcitabine; however, the patient is at a higher risk of DVT. R/o DVT with venous dopplers of BLEs. There may not be a way to get this done today; therefore, will treat empirically with heparin gtt. (4) Pericardial effusion: Status: Acute Assessment and plan: Await echo. Monitor on tele. No evidence of tamponade. Diurese. Check TSH. (5) Urothelial carcinoma: Status: Acute Assessment and plan: Right upper tract uroltheliac carcinoma, metastatic. On chemo (Carboplatin/gemcitabine). Edema could be side effect of gemcitabine. [facility] onc team aware of admission. R/o DVT. Full code. (6) Leukocytosis: Status: Acute Assessment and plan: S/p GCSF. Does not appear septic at this time. Monitor for fever/signs of infection. (7) DVT prophylaxis: Status: Acute Assessment and plan: Start heparin gtt. (8) Discharge planning issues: Status: Acute Assessment and plan: Full code Continues to require hospitalization. Subjective Subjective Interval history since last seen: Ms Pichardo states that she feels better today. Her breathing is better. Denies chest pain. States legs swelling is better. She is concerned about RUE thrombophlebitis. She is concerned about being started on blood thinners because of recent hematuria and concerns that she might be developing gastric ulcers. She would like to run the idea of being on blood thinners empirically by her [facility] oncology team (call for consultation placed). While she was considering leaving [place] this morning, she is willing to stay. She agrees to continued cardiac monitoring. Exam Narrative Exam Narrative: General: Pleasant obese female, on room air, no dyspnea/tachypnea/cyanosis, A&Ox3 HEENT: EOMI, MMM Heart: RRR, + RUFINA Lungs: rales B bases Abdomen: soft, slightly tender to palpation, nondistended Extremities: 1+ pitting edema to B knees, symmetric Objective Last Vital Signs Temp 36.8 C 03/20/21 07:38 Pulse 89 03/20/21 07:38 Resp 18 03/20/21 07:38 BP 166/84 H 03/20/21 07:38 Pulse Ox 94 03/20/21 07:38 Laboratory Results - last 24 hr 03/19/21 03/19/21 03/19/21 12:55 13:40 13:40 WBC 41.62 H* RBC 3.03 L Hgb 8.7 L Hct 27.6 L MCV 91.1 MCH 28.7 MCHC 31.5 L RDW 13.5 Plt Count 126 L MPV 10.8 Immature Gran % See Differential Neutrophils % 59.0 Band Neutrophils % 11 Lymphocytes % 8.0 Monocytes % 7.0 Eosinophils % 0.0 Basophils % 1.0 Metamyelocytes % 4 Myelocytes % 9 Other Cells % 1 Nucleated RBC % 1 Absolute Neutrophils 29.13 H Absolute Lymphocytes 3.33 Absolute Monocytes 2.91 H Absolute Eosinophils 0.00 Absolute Basophils 0.42 H RBC Morphology See below Polychromasia Present Hypochromasia PT INR APTT Sodium 140 Potassium 4.4 Chloride 104 Carbon Dioxide 28.2 Anion Gap 7.8 BUN 29 H Creatinine 1.3 H Estimated GFR/1.73 m2 40.98 Glucose 126 H Calcium 9.6 Magnesium 2.0 Total Bilirubin 0.2 AST 29 ALT 36 Alkaline Phosphatase 232 H Troponin I 0.05 NT-Pro-B Natriuret Pep 3768 H Total Protein 7.6 Albumin 3.0 L Urine Color Yellow Urine Clarity Clear Urine pH 7.0 Ur Specific [place] 1.015 Urine Protein 100 H Urine Ketones Negative Urine Blood Small H Urine Nitrite Negative Urine Bilirubin Negative Urine Urobilinogen 0.2 Ur Leukocyte Esterase Trace H Urine RBC 0-2 Urine WBC >50 H Ur Epithelial Cells Few Urine Crystals Negative Urine Bacteria Few Urine Casts Negative Urine Mucus Negative Ur Culture Indicated? Yes Urine Glucose Negative COVID-19 Source SARS-CoV-2 (PCR) 03/19/21 03/19/21 03/20/21 13:40 18:35 06:10 WBC RBC Hgb Hct MCV MCH MCHC RDW Plt Count MPV Immature Gran % Neutrophils % Band Neutrophils % Lymphocytes % Monocytes % Eosinophils % Basophils % Metamyelocytes % Myelocytes % Other Cells % Nucleated RBC % Absolute Neutrophils Absolute Lymphocytes Absolute Monocytes Absolute Eosinophils Absolute Basophils RBC Morphology Polychromasia Hypochromasia PT 9.8 INR 1.0 APTT 20.3 L Sodium 139 Potassium 4.6 Chloride 104 Carbon Dioxide 28.4 Anion Gap 6.6 BUN 25 H Creatinine 1.5 H Estimated GFR/1.73 m2 34.74 Glucose 140 H Calcium 9.2 Magnesium Total Bilirubin AST ALT Alkaline Phosphatase Troponin I NT-Pro-B Natriuret Pep Total Protein Albumin Urine Color Urine Clarity Urine pH Ur Specific [place] Urine Protein Urine Ketones Urine Blood Urine Nitrite Urine Bilirubin Urine Urobilinogen Ur Leukocyte Esterase Urine RBC Urine WBC Ur Epithelial Cells Urine Crystals Urine Bacteria Urine Casts Urine Mucus Ur Culture Indicated? Urine Glucose COVID-19 Source Nasal/nares SARS-CoV-2 (PCR) Negative 03/20/21 06:10 WBC 33.00 H* RBC 2.81 L Hgb 8.0 L Hct 25.1 L MCV 89.3 MCH 28.5 MCHC 31.9 L RDW 13.8 Plt Count 127 L MPV 11.5 H Immature Gran % See Differential Neutrophils % 61.0 Band Neutrophils % 13 Lymphocytes % 5.0 Monocytes % 7.0 Eosinophils % 0.0 Basophils % 0.0 Metamyelocytes % 5 Myelocytes % 6 Other Cells % 3 Nucleated RBC % 1 Absolute Neutrophils 24.42 H Absolute Lymphocytes 1.65 Absolute Monocytes 2.31 H Absolute Eosinophils 0.00 Absolute Basophils 0.00 RBC Morphology See below Polychromasia Present Hypochromasia 2+ PT INR APTT Sodium Potassium Chloride Carbon Dioxide Anion Gap BUN Creatinine Estimated GFR/1.73 m2 Glucose Calcium Magnesium Total Bilirubin AST ALT Alkaline Phosphatase Troponin I NT-Pro-B Natriuret Pep Total Protein Albumin Urine Color Urine Clarity Urine pH Ur Specific [place] Urine Protein Urine Ketones Urine Blood Urine Nitrite Urine Bilirubin Urine Urobilinogen Ur Leukocyte Esterase Urine RBC Urine WBC Ur Epithelial Cells Urine Crystals Urine Bacteria Urine Casts Urine Mucus Ur Culture Indicated? Urine Glucose COVID-19 Source SARS-CoV-2 (PCR)
[2021-03-20] MEDS: Insulin Glargine 300 UNITS/3 ML PEN 58 UNITS SC (11:00)
[2021-03-20 11:38] LABS: FREE T4 1.13 ng/dL (0.76-1.46); TSH 4.03 uIU/mL (0.36-3.74)
[2021-03-20] MEDS: Insulin Aspart 300 UNITS/3 ML PEN SC (12:15)
--- NOTE | 2021-03-20 16:41 | PDOC.CMIN ---
- If Service Date Differs Date of service: 03/20/21 Time of Service: 16:41 Care Management Initial Assess REASON FOR HOSPITALIZATION:: Edema PAST MEDICAL HISTORY/PAST SURGICAL HISTORY:: Medical History. Anxiety. Depression. Diabetes. Gastritis and duodenitis. GERD (gastroesophageal reflux disease). History of colon polyps. Hyperlipidemia. Hypertension. Obesity. Osteoarthritis. Surgical History. Abdominal hysterectomy (~11/2010). for fibroid. Bilateral salpingectomy with oophorectomy. Biopsy of breast. cyst excised-left. section. Colonoscopy - MAC (01/10/17). EGD - MAC (01/10/17). Extraction of cataract (11/10/16). LEFT EYE; DR. MORRIS. Hemorrhoidectomy. and anal fissure repair. Hernia Repair, Incisional. OOPHRECTOMY, UNILATERAL (~1991). , Ectopic (~1991) PREVIOUS FUNCTIONAL STATUS/SOCIAL/FAMILY SUPPORTS:: Lives with her Derek in [facility] in [place]. They have a cat and a dog at home, and a daughter who lives nearby with twin grand daughters. 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 She is usually independent. CURRENT FUNCTIONAL STATUS:: Nancy was sitting up in bed when CM met with her. She was pleasant and engaged in conversation. She reported that the start of this admission was not going well, due to MD's, not RN's. She stated that she had a very good conversation with the RN Hedis Abstractor, who understood that she was not yelling, just raising her voice, as she was upset. She feels much better now, and is happy with the care she is receiving. She stated that she feels that this has been a break through, as she often has trouble communicating her needs, and having her care givers listen. She stated that she feels that she would benefit from more support at home. She currently has HH services, but is alone often, as her still works. CM discussed [facility], and will contact [facility] on Monday to ask for assistance for her in the community to have her needs met. CM will continue to follow. ADVANCE DIRECTIVES:: None on file. CM will offer forms. Palliative care declined. Has patient been provided with info about the portal/API?: Yes Did the patient sign up for the portal?: No CODE STATUS:: Full Code INSURANCE COVERAGE / FINANCIAL ISSUES:: [employer] CURRENT HOME/COMMUNITY SERVICES/EQUIPMENT:: Nancy currently has HH RN, OT. She feels that she would benefit from additional support. PRIMARY CARE PHYSICIAN:: unknown. CM will inquire. POTENTIAL DISCHARGE NEEDS:: Additional resources for assistance at home, follow up appointments, resumption of HH services. PATIENT/FAMILY EDUCATION NEEDS:: Review discharge instructions regarding activity levels and medications, discussion of self care needs and goals of care. ANTICIPATED BARRIERS TO DISCHARGE:: None identified. TRANSPORTATION:: Via private vehicle by family. PLAN:: Anticipate Nancy will return home when medically cleared with a resumption of HH services through [facility]. Her will drive her home via private vehicle. CM will explore options for additional support at home. She will follow up with her PCP and discharge plan of care. CM will continue to follow.
[2021-03-20 18:52] LABS: PTT Activated 60.4 sec (21.0-27.5)
[2021-03-20] MEDS: Omeprazole 20 MG CAPCR PO (21:06)
[2021-03-20 23:32] LABS: PTT Activated 53.9 sec (21.0-27.5)
[2021-03-21] VITALS (8 sets, daily range): BP systolic 108–137; BP diastolic 63–78; PULSE 78–95; RESP 16–20; TEMP 36.3–36.7; O2SAT 93–95
[2021-03-21 07:29] LABS: Abs Immature Grans 4.63 10^3/uL (0.0-0.06); HCT 24.7 % (36.0-46.0); HGB 7.8 g/dL (11.2-15.7); MCH 28.9 pg (27.0-33.0); MCHC 31.6 % (32.0-36.0); MCV 91.5 fL (80-95); MPV 10.9 fL (8.0-11.0); Nucleated RBC 0 %; Platelet Count 153 10^3/uL (130-400); RDW 14.7 % (11.7-14.6); RDW-SD 43.4 fL
[2021-03-21 07:33] LABS: Albumin 2.7 g/dL (3.4-5.0); BUN 31 mg/dL (7-18); CREATININE 1.7 mg/dL (0.55-1.02); Calcium 8.4 mg/dL (8.5-10.1); Chloride 106 mmol/L (98-107); Estimated GFR 30.07 (mL/min/1.73m2); Glucose 119 mg/dL (74-106); Magnesium 1.9 mg/dL (1.8-2.4); Potassium 4.4 mmol/L (3.5-5.1); Sodium 143 mmol/L (136-145)
[2021-03-21 07:40] LABS: PTT Activated 70.2 sec (21.0-27.5)
[2021-03-21 07:41] LABS: WBC 35.27 10^3/uL (4.4-10.8)
[2021-03-21] MEDS: Spironolactone 25 MG TAB 12.5 MG PO (08:04)
[2021-03-21] MEDS: Losartan 50 MG TAB 100 MG PO (08:04)
[2021-03-21] MEDS: Ciprofloxacin 250 MG TAB PO ×2 (08:04→19:56)
[2021-03-21] MEDS: Normal Saline Flush 10 ML SYR IVP ×2 (08:04→17:01)
[2021-03-21] MEDS: Cholecalciferol (Vitamin D3) 1,000 UNIT TAB 1000 UNITS PO (08:04)
[2021-03-21] MEDS: Furosemide 20 MG/2 ML VIAL IVP ×2 (08:04→17:01)
[2021-03-21] MEDS: Senna TAB 2 TAB PO ×2 (08:04→19:57)
[2021-03-21] MEDS: Insulin Glargine 300 UNITS/3 ML PEN 58 UNITS SC (08:05)
[2021-03-21 08:11] LABS: Absolute Basophil Count 1.41 10^3/uL (0.0-0.2); Absolute Eosinophil Count 0.71 10^3/uL (0.0-0.7); Absolute Lymphocyte Count 3.53 10^3/uL (1.2-3.4); Absolute Monocyte Count 1.41 10^3/uL (0.1-0.8); Absolute Neutrophil Count 23.98 10^3/uL (1.2-6.7); Bands % 7
[2021-03-21 08:12] LABS: Diff Comment Manual Differential; Hypochromasia 2+; Metamyelocytes % 6; Myelocytes % 6; Polychromasia Present
--- NOTE | 2021-03-21 08:54 | DI.US_ITS ---
EXAM: US EXTREMITY VENOUS BI CLINICAL HISTORY: lower extremity edema TECHNIQUE: Grayscale, color, and doppler imaging of the deep venous system of both lower extremities was performed. COMPARISON: US ABDOMEN ULTRASOUND (P) from 12/09/2016 FINDINGS: There is no evidence of intraluminal thrombus and there is normal compression and augmentation demons trated within the common femoral veins, femoral veins, and popliteal veins of both lower extremities. In the calves the interrogated veins also exhibit normal compression/ augmentation properties. The greater saphenous veins also appear patent as do the saphenofemoral junctions bilaterally.. IMPRESSION: 1. No ultrasound evidence of DVT in either lower extremity. DATA REPOSITORY:
--- NOTE | 2021-03-21 10:43 | PGE_ITS ---
Date of Service Date of service: 03/21/21 Time of Service: 10:43 Assessment and Plan Assessment and plan (1) Acute CHF: Status: Acute Assessment and plan: Continue lasix IV, PO spironolactone. Trend weights (slightly better). Encourage TEDs (patient was not wearing them when I came to see her). Does have a slightly elevated TSH; FT4 is wnl. No indication to start replacement. Await echo. Continue to monitor on tele. Await venous dopplers BLEs. Until DVT ruled out, continue heparin gtt - discussed with Dr Bella of [facility] [place]onc who states that there are no current contraindications to treatment, but if hematuria recurs, would need to be reassessed. (2) Superficial thrombophlebitis of right upper extremity: Status: Acute Assessment and plan: Continue cipro. I worry that this is worse. Await Venous doppler of RLE to compare - if has extended, consider transfer for a vascular intervention. Continue anticoagulation empirically. (3) Bilateral lower extremity edema: Status: Acute Assessment and plan: Possibly due to gemcitabine; however, the patient is at a higher risk of DVT. Await venous doppplers. Continue to treat empirically with heparin gtt until ultrasound is available (4) Pericardial effusion: Status: Acute Assessment and plan: Await echo. Monitor on tele. No evidence of tamponade. Diurese. (5) Urothelial carcinoma: Status: Acute Assessment and plan: Right upper tract uroltheliac carcinoma, metastatic. On chemo (Carboplatin/gemcitabine). Edema could be side effect of gemcitabine. Also c/o neuropathy. [facility] onc team aware of admission. R/o DVT. Continue empiric anticoagulation. Start B12, B6. Check b12 level Full code. (6) Leukocytosis: Status: Acute Assessment and plan: S/p GCSF. Does not appear septic at this time. Monitor for fever/signs of infection. (7) IDDM (insulin dependent diabetes mellitus): Status: Chronic Assessment and plan: Hypoglycemic last night. Unfortunately, already got her morning dose of lantus this am - will monitor for hypoglycemia with accuchecks at midnight and 4 am. Decrease lantus in am. The patient already has a CGM with an alarm at home which she should resume once she gets home. (8) DVT prophylaxis: Status: Acute Assessment and plan: Continue heparin gtt. (9) Discharge planning issues: Status: Acute Assessment and plan: Full code Continues to require hospitalization. Subjective Subjective Interval history since last seen: Ms Pichardo states she feels a lot better. By this she means, leg swelling and breathing are better. Had a hypoglycemic episode at 3 am - states this happens to her at home too and that's why she has a CGM at home. [place] anxious when she woke up this am and did not know where she was - she called it a panic attack - and stated she felt that her breathing was tight at that time. All of this is better now. [place] dizzy and weak when she was getting washed up this morning. Thinks that her RUE thrombophlebitis is getting harder to palpation with heat - she would like to stop it. Tolerating blood thinners so far - she thinks they are doing her good. No bleeding reported. We still don't know if ultrasound will be available today. Had pulsating and burning in her right foot overnight; reports neuropathy in BLE's up to her thighs. We discussed how this could be related to her chemotherapy and that supplementation with vitamin B6 and B12 is typically recommended for that. Exam Narrative Exam Narrative: General: Pleasant obese female, on room air, no dyspnea/tachypnea/cyanosis, A&Ox3, mildly anxious, looks better HEENT: EOMI, MMM Heart: RRR, I do not hear a murmur today Lungs: rales B bases Abdomen: soft, nontender, ondistended Extremities: trace pitting edema to B knees, symmetric, improved from yesterday, +1 pedal pulses B feet; RUE hardened veins palpable - this is worse than yesterday distally and better than yesterday proximally. Objective Last Vital Signs Temp 36.6 C 03/21/21 07:48 Pulse 81 03/21/21 07:48 Resp 18 03/21/21 07:48 BP 108/72 03/21/21 07:48 Pulse Ox 95 03/21/21 07:48 Laboratory Results - last 24 hr 03/20/21 03/20/21 03/20/21 06:10 18:30 23:10 WBC RBC Hgb Hct MCV MCH MCHC RDW Plt Count MPV Immature Gran % Neutrophils % Band Neutrophils % Lymphocytes % Monocytes % Eosinophils % Basophils % Metamyelocytes % Myelocytes % Nucleated RBC % Absolute Neutrophils Absolute Lymphocytes Absolute Monocytes Absolute Eosinophils Absolute Basophils RBC Morphology Polychromasia Hypochromasia APTT 60.4 H 53.9 H Sodium Potassium Chloride Carbon Dioxide Anion Gap BUN Creatinine Estimated GFR/1.73 m2 Glucose Calcium Magnesium Albumin TSH 4.03 H Free T4 1.13 03/21/21 03/21/21 03/21/21 06:46 06:46 06:46 WBC 35.27 H* RBC 2.70 L Hgb 7.8 L Hct 24.7 L MCV 91.5 MCH 28.9 MCHC 31.6 L RDW 14.7 H Plt Count 153 MPV 10.9 Immature Gran % See Differential Neutrophils % 61.0 Band Neutrophils % 7 Lymphocytes % 10.0 Monocytes % 4.0 Eosinophils % 2.0 Basophils % 4.0 Metamyelocytes % 6 Myelocytes % 6 Nucleated RBC % 0 Absolute Neutrophils 23.98 H Absolute Lymphocytes 3.53 H Absolute Monocytes 1.41 H Absolute Eosinophils 0.71 H Absolute Basophils 1.41 H RBC Morphology See below Polychromasia Present Hypochromasia 2+ APTT 70.2 H D Sodium 143 Potassium 4.4 Chloride 106 Carbon Dioxide 27.0 Anion Gap 10.0 BUN 31 H Creatinine 1.7 H Estimated GFR/1.73 m2 30.07 Glucose 119 H Calcium 8.4 L Magnesium 1.9 Albumin 2.7 L TSH Free T4
[2021-03-21] MEDS: Cyanocobalamin 500 MCG TAB 1000 MCG PO (11:28)
[2021-03-21] MEDS: Insulin Aspart 300 UNITS/3 ML PEN SC (12:08)
--- NOTE | 2021-03-21 13:35 | CMPROGNOTE_ITS ---
- If Service Date Differs Date of service: 03/21/21 Time of Service: 13:36 Care Management Progress Note S/O: Nancy was busy when CM attempted to meet with her- once with her RN, and another time when she was having a venous doppler of BLE's. Per report, Nancy will have an Echo during this admission, and continues to be monitored on tele. Per provider, she may be a good candidate for CGM, and she will have a diabetic education consultation tomorrow, if available. Nancy's PCP is listed as un known, CM will inquire about this with Nancy, as she has HH services, therefore likely does have a PCP. CM will continue to follow. A: Nancy is a 65 year old female admitted to [facility] on 03/19/21 with edema. P: Anticipate Nancy will return home with a resumption of HH services once she is medically cleared. CM will contact [facility] on Monday to discuss services that she is currently receiving, and possibly to add [employer] in order to assist with [employer] application and resources for additional services at home. Her will drive her home via private vehicle. She will follow up with her PCP and keren ordonez plan of care. CM will continue to follow.
--- NOTE | 2021-03-21 13:40 | DI.VRAD_ITS ---
PROCEDURE INFORMATION: Exam: US Duplex Lower Extremity Veins, Bilateral Exam date and time: 03/21/2021 1:15 PM Age: 65 years old Clinical indication: Swelling TECHNIQUE: Imaging protocol: Real-time duplex ultrasound of the extremities with 2-D hernandez scale, color Doppler flow and spectral waveform analysis with image documentation. Complete exam focused on the bilateral lower extremity veins. COMPARISON: No relevant prior studies available. FINDINGS: Right deep veins: Unremarkable. The common femoral, femoral, proximal profunda femoral and popliteal veins are patent without thrombus. Normal Doppler waveforms. Normal compressibility and/or augmentation response. Right superficial veins: Saphenofemoral junction is patent without thrombus. Left deep veins: Unremarkable. The common femoral, femoral, proximal profunda femoral and popliteal veins are patent without thrombus. Normal Doppler waveforms. Normal compressibility and/or augmentation response. Left superficial veins: Saphenofemoral junction is patent without thrombus. Soft tissues: Unremarkable. IMPRESSION: No evidence of deep vein thrombosis. Dictated and Authenticated by: Marlon Mitchell MD. Ordering:PAULETTE Garcia MD
[2021-03-21 14:29] LABS: PTT Activated 51.3 sec (21.0-27.5)
--- NOTE | 2021-03-21 18:35 | NUR.NOTE ---
Nursing Note: 03-21-21 [id number]- Patient pointed out to nurse that her left arm (antecubital area) looked red and swollen after taking off the bandaid. patient stated that the lab mahad blood from that area this morning, even though it was above the heparin drip and there was a previous iv there. area is red and starting to swell. Charge nurse notified. Charge nurse and nursing mine supervisor going to go see patient and talk to her.
[2021-03-21] MEDS: Omeprazole 20 MG CAPCR PO (21:25)
[2021-03-22] VITALS (7 sets, daily range): BP systolic 103–163; BP diastolic 67–83; PULSE 88–105; RESP 17–20; TEMP 36.2–36.6; O2SAT 92–98
--- NOTE | 2021-03-22 03:25 | NUR.NOTE ---
Patient state she is having hurt burn that extends to her neck and to her left arm. State she is not feeling good and she thinks its acid reflux. state this not the first time she is experiencing this symptoms, she has had it many times when she is home and she usually takes Tums or mylanta for symptoms. Vitals done and charged. CC informed
[2021-03-22] MEDS: Calcium Carbonate *TUMS* 500 MG CHEW PO (03:49)
[2021-03-22 07:12] LABS: Anion Gap 9.7 mmol/L (3-11); BUN 34 mg/dL (7-18); CO2 24.3 mmol/L (21.0-32.0); CREATININE 1.7 mg/dL (0.55-1.02); Calcium 8.5 mg/dL (8.5-10.1); Chloride 105 mmol/L (98-107); Estimated GFR 30.07 (mL/min/1.73m2); Glucose 128 mg/dL (74-106); Potassium 4.4 mmol/L (3.5-5.1); Sodium 139 mmol/L (136-145)
[2021-03-22 07:14] LABS: Abs Immature Grans 4.23 10^3/uL (0.0-0.06); HCT 24.8 % (36.0-46.0); HGB 8.2 g/dL (11.2-15.7); MCH 29.7 pg (27.0-33.0); MCHC 33.1 % (32.0-36.0); MCV 89.9 fL (80-95); MPV 11.2 fL (8.0-11.0); RBC 2.76 10^6/uL (3.93-5.22); RDW 15.5 % (11.7-14.6); RDW-SD 42.6 fL
[2021-03-22 07:16] LABS: PTT Activated 47.6 sec (21.0-27.5)
[2021-03-22 07:45] LABS: Vitamin B12 > 2000 pg/mL (193-986)
[2021-03-22 07:51] LABS: WBC 34.72 10^3/uL (4.4-10.8)
[2021-03-22 07:52] LABS: Absolute Lymphocyte Count 3.12 10^3/uL (1.2-3.4); Absolute Monocyte Count 2.78 10^3/uL (0.1-0.8); Absolute Neutrophil Count 25.35 10^3/uL (1.2-6.7); Atypical Lymphocytes % 1; Bands % 13; Metamyelocytes % 7; Myelocytes % 3; Nucleated RBC 1 %; Platelet Count 178 10^3/uL (130-400)
[2021-03-22 07:53] LABS: Diff Comment Manual Differential; Polychromasia Present
[2021-03-22] MEDS: Normal Saline Flush 10 ML SYR IVP ×2 (07:54→15:40)
[2021-03-22] MEDS: Furosemide 20 MG/2 ML VIAL IVP ×2 (07:54→15:39)
[2021-03-22] MEDS: Senna TAB 2 TAB PO (07:55)
[2021-03-22] MEDS: Cholecalciferol (Vitamin D3) 1,000 UNIT TAB 1000 UNITS PO (07:55)
[2021-03-22] MEDS: Losartan 50 MG TAB 100 MG PO (07:55)
[2021-03-22] MEDS: Ciprofloxacin 250 MG TAB PO (07:55)
[2021-03-22] MEDS: Spironolactone 25 MG TAB 12.5 MG PO (07:55)
[2021-03-22] MEDS: Cyanocobalamin 500 MCG TAB 1000 MCG PO (07:55)
--- NOTE | 2021-03-22 08:00 | DI.US_ITS ---
EXAM: US UPPER EXTREMITY VENOUS RT CLINICAL HISTORY: follow up right upper extremity thrombophlebitis TECHNIQUE: GRAYSCALE, COLOR, DOPPLER IMAGING OF THE VENOUS SYSTEM OF THE UPPER EXTREMITY-BILATERAL COMPARISON: US US EXTREMITY VENOUS BI from 03/21/2021 FINDINGS: Basilic vein: Patent. Normal color-flow and normal compression and augmentation properties. Brachial vein(s):Patent. Normal color flow. Normal compression and augmentation properties. Cephalic vein:Abnormal. Positive for intraluminal thrombus from the level of wrist to the mid upper arm, over length of 13 cm. Axillary vein: Patent. Normal color flow. Normal compression and augmentation properties. Visualized subclavian vein: Patent. No obvious intraluminal thrombus. IMPRESSION: 1. Positive study. There is intraluminal thrombus for 13 cm length in the cephalic vein starting ju st above the wrist and extending to significantly above the elbow level. 2. Thrombus does not extend into the axillary and subclavian veins. 3. Incidentally noted are slightly prominent supraclavicular lymph nodes on the right side. The lar gest lymph node in this region measures 1.7 x 1.4 x 1.4 cm. Close follow-up recommended DATA REPOSITORY:
--- NOTE | 2021-03-22 08:00 | DI.US_ITS ---
APPROVED REPORT EXAM: Comprehensive 2D, Doppler, and color-flow Echocardiogram Patient Location: In-Patient Room/Bed: [facility] Investigative Agent: Rosie Alvarado RDCS (AE) Indications: Edema Other Information Study Quality: Adequate Conclusion Left Ventricle : The left ventricle is normal size. The left ventricular systolic function is normal. The left ventricular ejection fraction is within the normal range. There is normal left ventricular wall thickness. There is normal LV segmental wall motion. The left ventricular diastolic function is normal. LVEF is 55%. Right Ventricle : The right ventricle is normal size. The right ventricular systolic function is norm al. The RVSP is 22.4mmHg. Atria : The left atrium size is normal. The right atrium size is normal. Mitral Valve : Mild mitral annular calcification. Trace mitral regurgitation. No evidence of mitral v alve stenosis. Pericardium : Small circumferential pericardial effusion without evidence of tamponade. See remainder of study for further details. Wall motion Left Ventricle The left ventricle is normal size. The left ventricular systolic function is normal. The left ventric ular ejection fraction is within the normal range. There is normal left ventricular wall thickness. T here is normal LV segmental wall motion. The left ventricular diastolic function is normal. There is no ventricular septal defect visualized. LVEF is 55%. Right Ventricle The right ventricle is normal size. The right ventricular systolic function is normal. The RVSP is 22 .4mmHg. Atria The left atrium size is normal. The right atrium size is normal. The interatrial septum is intact wit h no evidence for an atrial septal defect. Aortic Valve The aortic valve is normal in structure. Aortic valve is trileaflet. There is no aortic valvular sten osis. No aortic regurgitation is present. Mitral Valve Mild mitral annular calcification. No evidence of mitral valve stenosis. Trace mitral regurgitation. Tricuspid Valve The tricuspid valve is normal in structure. There is no tricuspid valve stenosis. Trace tricuspid reg urgitation. Pulmonic Valve The pulmonary valve is normal in structure. There is no pulmonic valvular stenosis. There is no pulmo marti valvular regurgitation. Great Vessels The aortic root is normal in size. The ascending aorta is upper normal limits. Aortic arch is normal in caliber. IVC is normal in size and collapses >50% with inspiration. Pericardium Small circumferential pericardial effusion without evidence of tamponade. 2D Dimensions IVSD d PLAX 0.89 cm F: 0.6-1.0 LV Vol A2C d MOD 123.0 mL LVPW d PLAX 0.87 cm F: 0.6 - 1.0 LV Vol A4C d MOD 108.6 mL LVID d PLAX 5.41 cm F: 3.8 - 5.2 LA vol/ BSA A2C s A-L 23.5 mL/m2 LVDs 3.90 cm F: 2.2 - 3.5 LA vol/ BSA A4C s A-L 14.7 mL/m2 Ao Root d 2.91 cm F: 2.7 - 3.3 LA Vol/ BSA Biplane s A-L 19.8 mL/m2 RA Area A4C 16.88 cm2 LA Area A4C s MOD 12.12 cm2 RA Vol/ BSA A4C s A-L 22.7 mL/m2 LA Area A2C s MOD 16.27 cm2 Ao Asc Diam d 3.21 cm F: 2.3 - 3.1 LV EF A4C MOD 54.4 % LV EF Teichholz 52.2 % LV EF A2C MOD 55.0 % LVEF (Zabala's) 54.65 % F: 54 - 74 LV EF Biplane MOD 54.7 % LV Volume 91.78 mL F: 46 - 106 SV 66.50 mL LV Volume Index 46.82 mL/m2 F: 29 - 61 SV Index 33.82 mL/m2 LV Vol Biplane MOD 121.7 mL FS 27.00 % M-Mode TAPSE 2.37 cm (M/F) >1.7 LV Diastology MV E' medial 0.096 (>0.07 m/s) E/A Ratio 0.7 LV E/e MED 8.90 (<14) MV E Vmax 0.86 (0.4-1.3 m/s) MV E' lateral 0.098 (>0.1 m/s) MV A Vmax 1.20 (0.4-1.3 m/s) LV E/e LAT 8.75 (<14) MV E/A Ratio 0.70 MV E/E' medial 8.93 MV E/E' lateral 8.75 Aortic Valve LVOT Area 3.19 cm2 AoV Area Vmax 2.71 cm2 LVOT Vmax 1.44 m/s AoV Area/ BSA (Vmax) 1.38 cm2/m2 LVOT Mean Yemi. 1.03 m/s JF Mean Yemi. 2.71 cm2 LVOT Peak Grad 8.3 mmHg JF Mean Yemi. Index 1.38 cm2/m2 LVOT Mean Grad 4.7 mmHg LVOT VTI 0.274 m LVOT Diam s 2.00 cm AoV Vmax 1.69 m/s Velocity Ratio 0.85 AoV Mean Yemi. 1.22 m/s AoV Peak Grad 11.4 mmHg LVOT SV 87.27 mL AoV Mean Grad 6.5 mmHg AoV VTI 0.347 m AoV Area VTI 2.51 cm2 AoV Area/ BSA (VTI) 1.28 cm/m2 Mitral Valve MV DT 238 (160-240 msec) MV PHT 69 msec MV Area PHT 3.19 cm2 MV VTI 0.273 m MV VTI Annulus 0.285 m MV Area VTI 3.34 (4.0-6.0 cm2) Pulmonary Valve PV Vmax 1.31 (0.5-1.5 m/s) RVOT Peak Gr. 5.02 mmHg PV Peak Grad 6.8 mmHg RVOT Mean Gr. 2.50 mmHg PV Mean Grad 3.2 mmHg RVOT VTI 0.198 m PV VTI 0.220 m RVOT Vmax 1.12 m/s Tricuspid Valve TR Peak Grad 19.3 mmHg TR Vmax 2.20 m/s RA Pressure 3.00 mmHg RVSP (TR) 22.4 mmHg
--- NOTE | 2021-03-22 09:19 | W.INDIABCONS ---
Date of service: 03/22/21 Time of Service: 09:19 Diabetes Inpatient Consult DESCRIPTION/ASSESSMENT: 65 year old female s/p chemotherapy for uretral cancer with hx of DM2, obesity and CHF. BMI indicates class 2 obesity, stable. Following diabetic diet(gluten free/lactose free) with adequate intake to meet 100% nutrient and fluid needs. Nocturnal hypoglycemia noted last night, long acting insulin to be adjusted. Home DM meds include tresiba 58 U QAM, novolog 0-6 units TID. No recent A1C. Noted to be allergic to gluten and lactose. Met with Nancy today. She reports good glycemic control prior to admission and using a Yvon 2 Continuous glucose monitor (removed currently). Reviewed causes and treatment for hypoglycemia. Decrease Tresiba is recommended at discharge. Provided contact information, Nancy to follow up as outpatient for diabetes education. Will continue to follow and provide support as needed. Time Spent in Nutritional Counseling and Treatment: 15
[2021-03-22] MEDS: Insulin Glargine 300 UNITS/3 ML PEN 50 UNITS SC (10:23)
[2021-03-22] MEDS: Insulin Aspart 300 UNITS/3 ML PEN SC (12:06)
--- NOTE | 2021-03-22 13:39 | CHAPLAIN ---
Nancy was up in a chair, using a laptop when I visited. She was pleasant. I explained my role as she thought I was a medical person. She'd been waiting to get some answers. She said her nurse is not feeling well and leaving at noon and the LNAs are at a training, so the hospital is short staffed. I don't know if that's true, but Nancy said she was told that. She explained that she is waiting for test results to see if she will need to go to [facility] for surgery. 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
--- NOTE | 2021-03-22 14:33 | NUR.NOTE ---
Nursing Note: patient went back to bed after washing up. patient requested all four bed rails up. nurse notified.
--- NOTE | 2021-03-22 15:18 | DSE_ITS ---
Date of service: 03/22/21 Time of Service: 15:19 DS: Diagnosis Discharge Diagnosis (1) Acute pulmonary edema: Status: Acute (2) Bilateral lower extremity edema: Status: Acute (3) Superficial thrombophlebitis of right upper extremity: Status: Acute Asessment and Plan: right cephalic vein, >13 cm in length (4) Pericardial effusion: Status: Acute (5) Urothelial carcinoma: Status: Acute (6) Leukocytosis: Status: Acute (7) IDDM (insulin dependent diabetes mellitus): Status: Chronic Asessment and Plan: with frequent hypoglycemic episodes (8) Peripheral neuropathy: Status: Acute Asessment and Plan: in setting of DM and [place]-based chemotherapy (9) COVID-19 ruled out by laboratory testing: Status: Ruled-out Discharge Plan Disposition Patient Disposition: HOME Condition: Stable Discharge Details Reason For Visit: EDEMA Admit Date/Time: 03/19/21 18:39 Admit Provider: Bobo Hunter Attending Provider: Bobo Hunter Primary Care Provider: Unknown,Unknown Hospital Course Hospital Course: Ms Lopez is a 65 year old female with PMHx of metastatic urothelial carcinoma on chemotherapy, as well as recently diagnosed thrombophlebitis of RUE on cipro, h/o IDDM2 with frequent hypoglycemic episodes, and hypertension, who was a patient on [facility] hospitalist service from 03/19/21 until 03/22/21 for acute onset pulmonary and bilateral lower extremity edema, thought to be result of gemcitabine therapy. She ruled out for acute DVT in her LE's and her CTA was negative for a PE. She did have ground-glass opacities in her lungs c/w pulmonary edema, and she ruled out for COVID-19. She was treated with diuresis via IV lasix and is going home on PO lasix today. Her echo revealed Preserved LVEF of 55%, normal diastolic function, RVSP of 22.4 mmHg and no hemodynamically significant valvular disease. Until venous dopplers of BLEs could be obtained, she was also empirically anticoagulated with heparin drip for her LE edema. Her RUE thrombophlebitis was assessed with a venous doppler and reveals a thrombus which is greater than 13 cm in length. This was discussed with both vascular surgery and hematology/oncology and merits continued anticoagulation on discharge. The patient is being switched to lovenox 1 mg/kg BID on discharge and will receive lovenox teaching prior to her discharge. She will need to follow up with hem/onc as well as with vascular surgery for this thrombosis. Finally, it is important to mention that the patient had two hypoglycemic episodes on her home regimen of insulin and is being discharged home on a decreased dose of long acting insulin (50 units). She should resume wearing her CGM and should follow up with her PCP for further insulin management. Her metformin was discontinued due to her kidney function. For her neuropathy of lower extremities (likely from or[place] based chemotherapy), vitamins B6 and B12 were initiated. She should follow up with [facility] [place] tomorrow as previously scheduled. Care for patient as well as completion of her discharge summary took 45 minutes. Home Meds and New Rx's Prescriptions: New pyridoxine (vitamin B6) [Vitamin B-6] 25 mg Tablet 100 mg PO DAILY Qty: 30 RF: 0 cyanocobalamin (vitamin B-12) [Vitamin B-12] 500 mcg Tablet 500 mcg PO DAILY Qty: 30 RF: 0 enoxaparin 100 mg/mL Syringe 90 mg subcut Q12H Qty: 28 RF: 0 furosemide 20 mg tablet 20 mg PO BID Qty: 14 RF: 0 Continued cholecalciferol (vitamin D3) 1,000 UNIT capsule 1,000 iu PO DAILY Qty: 100 RF: 4 nystatin-triamcinolone 15 GM cream 1 applic Topical BID PRN PRNQty: 12 RF: 3 insulin aspart U-100 [Novolog Flexpen U-100 Insulin] 100 UNIT/1 ML insulin pen 0 - 6 units Sub-Q TID PRNRF: 0 losartan 100 MG tablet 100 mg PO DAILY Qty: 90 RF: 4 ciprofloxacin HCl 250 mg tablet 250 mg PO BID RF: 0 spironolactone 25 mg tablet 12.5 mg PO DAILY RF: 0 prochlorperazine maleate 10 mg tablet 10 mg PO Q6H PRNRF: 0 sennosides [senna] 8.6 mg tablet 17.2 mg PO BID RF: 0 omeprazole 20 mg Capsule,Delayed Release(Dr/Ec) 20 mg PO HS RF: 0 Fleet Enema 19-7 gram/118 mL Enema 118 ml OR ONCE PRNRF: 0 Changed Tresiba FlexTouch U-100 100 UNIT/1 ML insulin pen 50 unit SQ QAM Qty: 0 RF: 0 No Action (DME) OneTouch Ultra Test 1 EACH strip 1 ea Miscellaneous ac and hs Qty: 400 RF: 4 Discharge Instructions Instructions: Furosemide (By mouth), Enoxaparin (By injection), Superficial Thrombophlebitis (DC), Hypoglycemia in a Person with Diabetes (DC), Peripheral Neuropathy (ED), Low-Sodium Diet (DC), Edema (DC) Additional Instructions: Follow a low sodium diet. Your metformin was stopped due to your kidney function. Return to the hospital if you develop any bleeding, fever, chest pain, worsening shortness of breath or lower extremity edema. Weigh yourself daily and inform your PCP if you have gained >3 lbs in 3 days - this is likely extra fluid and could be managed by increasing your lasix dose. The dose of your long acting insulin was changed to 50 units in am. Make sure you wear your continuous glucose monitor with alarms to detect hypoglycemia. Follow up with your PCP, hematology/oncology, and vascular surgery. [facility] - (RUE thrombophlebitis) Alberto Bhatia [ NON-[facility] STAFF PHYSICIAN] - Activity:: Activity as Tolerated Equipment/Supplies:: No Equipment Needed Diet:: low sodium carb consistent Discharge Orders Discharge Orders: Discharge Order (Routine); Ordered 03/22/21 Ordered By: Radha Hernandez DS: Summary Time Spent with Patient providing and/or coordinating discharge services: Greater than 30 minutes Status at Discharge Functional status at discharge: independent ambulation Overall status at discharge: patient is progressing back to baseline Mental Status: mental status grossly normal Speech and Movement: speech and movement normal Mood: congruent mood Affect: normal affect Exam Narrative Exam Narrative: General: Pleasant obese female, on room air, no dyspnea/tachypnea/cyanosis, A&Ox3, mildly anxious, looks well HEENT: EOMI, MMM Heart: RRR Lungs: improved rales in B bases Abdomen: soft, nontender, ondistended Extremities: trace pitting edema to B knees, symmetric, improved, +1 pedal pulses B feet; RUE hardened veins palpable - about the same as yesterday Psych Mental Status: mental status grossly normal Speech and Movement: speech and movement normal Mood: congruent mood DS: Data Vitals/I&O Vitals and I&O: Vital Signs Temperature 36.2 C L 03/22/21 07:34 Temperature Source Tympanic 03/22/21 07:34 Pulse 88 03/22/21 07:34 Pulse Rhythm Regular 03/22/21 07:55 Pulse 111 H 03/19/21 16:32 Respiratory Rate 18 03/22/21 07:34 Respiratory Effort Non-Labored 03/22/21 07:55 Respiratory Depth Normal 03/22/21 07:55 Respiratory Pattern Normal 03/22/21 07:55 Blood Pressure 120/73 03/22/21 07:34 Blood Pressure Mean 118 03/19/21 16:31 Blood Pressure Position Sitting 03/19/21 11:33 Pulse Oximetry 92 03/22/21 07:34 Oxygen Delivery Method Room Air 03/22/21 03:28 Oxygen Flow Rate 0 03/22/21 03:28 Pain Level 0 03/22/21 07:34 Comment 03/21/21 06:22 Intake & Output 03/21/21 03/22/21 03/22/21 23:59 11:59 23:59 Intake Total 1079.792 / 1702.125 490 / 730 240 / 730 Output Total 1600 / 2825 1300 / 1500 200 / 1500 Balance -520.208 / -1122.875 -810 / -770 40 / -770 Weight 94 kg Intake: IV 99.792 / 242.125 250 / 250 Oral 980 / 1460 240 / 480 240 / 480 Output: Urine 1600 / 2825 1300 / 1500 200 / 1500 Other: Urine Color Yellow Yellow Yellow Urine Appearance Clear Clear Cloudy Urine Odor None Normal None Comment moderate volume unable to measure d/t mix with stool. patient state she feels as if her bladder is not being emptied Stool Occult Blood Negative Stool Size Moderate Moderate Moderate Stool Characteristics Soft Formed Formed Brown Voiding Methods Bedside Commode Bedside Commode Data Completed and Pending Completed studies during hospitalization [Text1]: CTA chest 03/19/21: 1. No evidence of acute pulmonary emboli. However, there are extensive bilateral ground-glass type infiltrates which may be cardiogenic but recommend testing for Covid-19..No intrathoracic adenopathy. No pleural effusions. 2. There is a moderate-sized pericardial effusion. 3. Coronary artery calcification and significant atherosclerotic disease in the descending thoracic aorta and small part of the upper abdominal aorta which is seen in the field of view here on this chest study. Venous doppler BLE's 03/21/21: 1. No ultrasound evidence of DVT in either lower extremity. Echo: 03/22/21: Left Ventricle : The left ventricle is normal size. The left ventricular systolic function is normal. The left ventricular ejection fraction is within the normal range. There is normal left ventricular wall thickness. There is normal LV segmental wall motion. The left ventricular diastolic function is normal. LVEF is 55%. Right Ventricle : The right ventricle is normal size. The right ventricular systolic function is normal. The RVSP is 22.4mmHg. Atria : The left atrium size is normal. The right atrium size is normal. Mitral Valve : Mild mitral annular calcification. Trace mitral regurgitation. No evidence of mitral valve stenosis. Pericardium : Small circumferential pericardial effusion without evidence of tamponade. See remainder of study for further details. Venous doppler RUE 03/22/21: 1. Positive study. There is intraluminal thrombus for 13 cm length in the cephalic vein starting just above the wrist and extending to significantly above the elbow level. 2. Thrombus does not extend into the axillary and subclavian veins. 3. Incidentally noted are slightly prominent supraclavicular lymph nodes on the right side. The largest lymph node in this region measures 1.7 x 1.4 x 1.4 cm. Close follow-up recommended Labs on day of discharge: Labs from last 24 hours 03/22/21 03/22/21 03/22/21 06:15 06:15 06:15 WBC 34.72 H* RBC 2.76 L Hgb 8.2 L Hct 24.8 L MCV 89.9 MCH 29.7 MCHC 33.1 RDW 15.5 H Plt Count 178 MPV 11.2 H Immature Gran % See Differential Neutrophils % 60.0 Band Neutrophils % 13 Lymphocytes % 8.0 Atypical Lymphs % 1 Monocytes % 8.0 Eosinophils % 0.0 Basophils % 0.0 Metamyelocytes % 7 Myelocytes % 3 Nucleated RBC % 1 Absolute Neutrophils 25.35 H Absolute Lymphocytes 3.12 Absolute Monocytes 2.78 H Absolute Eosinophils 0.00 Absolute Basophils 0.00 RBC Morphology See below Polychromasia Present APTT 47.6 H Sodium Potassium Chloride Carbon Dioxide Anion Gap BUN Creatinine Estimated GFR/1.73 m2 Glucose Calcium Magnesium Vitamin B12 > 2000 H Path Cons Comment 03/22/21 03/19/21 06:15 13:40 WBC RBC Hgb Hct MCV MCH MCHC RDW Plt Count MPV Immature Gran % Neutrophils % Band Neutrophils % Lymphocytes % Atypical Lymphs % Monocytes % Eosinophils % Basophils % Metamyelocytes % Myelocytes % Nucleated RBC % Absolute Neutrophils Absolute Lymphocytes Absolute Monocytes Absolute Eosinophils Absolute Basophils RBC Morphology Polychromasia APTT Sodium 139 Potassium 4.4 Chloride 105 Carbon Dioxide 24.3 Anion Gap 9.7 BUN 34 H Creatinine 1.7 H Estimated GFR/1.73 m2 30.07 Glucose 128 H Calcium 8.5 Magnesium 2.0 Vitamin B12 Path Cons Comment Preliminary micro results at discharge 03/20/21 11:42 Blood Culture - Preliminary Blood NO GROWTH 48 HOURS 03/20/21 11:25 Blood Culture - Preliminary Blood NO GROWTH 48 HOURS [facility] Medical History (Updated 03/22/21 @ 16:08 by Radha Hernandez MD) Anxiety Depression Diabetes Gastritis and duodenitis GERD (gastroesophageal reflux disease) History of colon polyps Hyperlipidemia Hypertension Obesity Osteoarthritis Superficial thrombophlebitis of right upper extremity Urothelial carcinoma Surgical History Abdominal hysterectomy (~11/2010) for fibroid Bilateral salpingectomy with oophorectomy Biopsy of breast cyst excised-left section Colonoscopy - MAC (01/10/17) EGD - MAC (01/10/17) Extraction of cataract (11/10/16) LEFT EYE; DR. MORRIS Hemorrhoidectomy and anal fissure repair Hernia Repair, Incisional OOPHRECTOMY, UNILATERAL (~1991) , Ectopic (~1991) Family History Mother Personal history of malignant neoplasm UTERINE Father Personal history of malignant neoplasm COLON Brother Heart disease Brother No problems noted. Brother No problems noted. Grandfather Personal history of malignant neoplasm Grandfather No problems noted. Grandmother Personal history of malignant neoplasm Stroke Grandmother Diabetes Personal history of malignant neoplasm Social History Smoking/Tobacco Use Status: Former Tobacco Use Smoking risk assessment performed?: Yes Alcohol Intake: never Drug use: Never Details: vapor use Do you feel safe at home: Yes Do you feel safe in your relationship?: Yes
[2021-03-22] MEDS: Enoxaparin 100 MG/ML SYR 90 MG SC (15:40)
[2021-03-22] MEDS: Loratidine 10 MG TAB PO (15:57)
--- NOTE | 2021-03-22 17:11 | PDOC.CMDIS ---
- If Service Date Differs Date of service: 03/22/21 Time of Service: 17:11 LACE Index Scoring Tool - Questions: Length of Stay (in days): 3 Acuity (Admit via E.D.?): Yes Comorbidities: Diabetes w/o Complication, Congestive Heart Failure, Any Tumor E.D. Visits: 2 - Answers: Total Score: 13 Risk of Readmission: High Risk Care Management Discharge Reason for Hospitalization: Edema Discharge Plan: Nancy will return home today with a resumption of services through [employer]. Her will drive her home via private vehicle. CM called her pharmacy to inquire about a copay for Lovenox, which was reported at $0, but they will not have it until tomorrow afternoon. asked [facility] pharmacy to cover her until the med is in at her pharmacy. Nancy will follow up with her PCP and discharge plan of care. She is happy to be going home. Patient/Family Education Needs: Review discharge instructions regarding activity levels and medications, discussion of self care needs and goals of care. Services Needed at Discharge: Home Health Care Services (HH RN, ACID ADJUSTER, resumption)
== END 2021-03-22 16:53 | disposition home or self-care (01) | DRG 315 ==
LOC: ER 19:03 → MS 19:52
PROVIDERS: Internal Medicine; Physician Assistant; Admitting Provider Family Medicine; Emergency Provider Physician Assistant; Visit Provider Family Medicine
DX: I30.8 Other forms of acute pericarditis (principal); C79.9 Secondary malignant neoplasm of unspecified site; C66.1 Malignant neoplasm of right ureter; J70.2 Acute drug-induced interstitial lung disorders; T45.1X5A Adverse effect of antineoplastic and immunosuppressive drugs, initial encounter; E11.649 Type 2 diabetes mellitus with hypoglycemia without coma; Z79.4 Long term (current) use of insulin; E11.42 Type 2 diabetes mellitus with diabetic polyneuropathy; I10 Essential (primary) hypertension; G62.0 Drug-induced polyneuropathy; Z20.822 Contact with and (suspected) exposure to COVID-19; D72.829 Elevated white blood cell count, unspecified; I80.8 Phlebitis and thrombophlebitis of other sites; F41.9 Anxiety disorder, unspecified; F32.9 Major depressive disorder, single episode, unspecified; K21.9 Gastro-esophageal reflux disease without esophagitis; E78.5 Hyperlipidemia, unspecified; E66.9 Obesity, unspecified; M19.09 Primary osteoarthritis, other specified site; K29.70 Gastritis, unspecified, without bleeding; K29.80 Duodenitis without bleeding
CPT/HCPCS: 36410; 36415; 36416; 71275; 80048; 80053; 82962; 87040; 87635; 93005; 96372; 99222; 99233; 99285; 81003; 81015; 82040; 82607; 83735; 83880; 84439; 84443; 84484; 85025; 85610; 85730; 87086; 93010; 93306; 93970; 93971; 99232; 99239; J1650; J1815; J1941; J3490

== ENCOUNTER 2021-04-01 01:37 | Outpatient (CLI) | payer BC, MEDICARE, SELFPAY ==
--- NOTE | 2021-04-01 06:45 | DI.NM_ITS ---
APPROVED REPORT Exam: Pharmacologic Patient Location: Out-Patient Room/Bed: Stress Nurse: Carlie Schulz RN Ordering Provider:LORE SIMON, Contact Number: BMI: 35.95 Baseline Rhythm: Sinus Rhythm Comment: T wave inversions in leads II, III, aVF, V4-V6 Indications: DYSPNEA ON EXERTION Medical History Medical History: Anxiety, Diastolic HF, Depression, Diabetes, GERD, HLD, HTN, Obesity, BLE Neuropathy , Osteoarthritis, Bladder cancer Cardiac Medications: Spironolactone, Furosemide, Omeprazole, Losartan, Novolog, Enoxaparin, Tresiba Allergies: Exenatide, Microspheres, Sulfa, Adhesive, Loratidine, Celecoxib, Gluten, Lactose, Statins Cardiac Risk Factors: FHX of CAD, Smoking (former), HTN, Hyperlipidemia, Diabetes (insulin), Obesity Previous Cardiac Procedures: None Pretest Chest Pain Characteristics: No chest pain Exercise History: Sedentary Physical Disabilities: Legs, ambulates with walker Lung Sounds: Clear to auscultation Heart Sounds: Regular Stress Test Details Test: Pharmacologic stress testing performed using 0.4 mg of regadenoson per 5 mL given IV over 10 s econds. Reason for pharmacologic stress test: T wave inversions at baseline. Nuclear Acquisition: Rest Tc-99m/Stress Tc-99m 1 day Rest Isotope: Tc-99m Sestamibi. Dose: 10.0 Date: 04/01/2021 Injection Time: 0930 Stress Isotope: Tc-99m Sestamibi. Dose: 30 Date: 04/01/2021 Injection Time: 1110 HR Resting HR Supine: 80 bpm Max Heart Rate (APMHR): 154.154185 bpm Target HR (85% APMHR): 130.139044 bpm Max HR Achieved: 98 bpm % of APMHR: 63.64 Recovery HR: 92 bpm BP Resting BP Supine: 164/76 mmHg Max BP: 164/76 mmHg Recovery BP: 148/72 mmHg ECG Resting ECG: Sinus Rhythm Ectopy: None Comment: T wave inversions in leads II, III, aVF, V4-V6 Stress ECG: Sinus Rhythm ST Change: No significant ST segment changes noted Arrhythmia: None Comment: T wave inversions in leads II, III, aVF, V4-V6 Recovery ECG: Sinus Rhythm Recovery ST Change: No significant ST segment changes noted Recovery Arrhythmia: None Comment: T wave inversions in leads II, III, aVF, V4-V6 Clinical Stress Symptoms: Dyspnea Rate Pressure Product: [id number] Stress ECG Conclusion 1. The resting electrocardiogram showed inferior and anterolateral ST T abnormalities consistent with left ventricular hypertrophy/ischemia 2. Patient underwent pharmacologic stress with regadenoson 3. Peak heart rate was 63% of predicted for age 4. Electrocardiographically the test was nondiagnostic due to inadequate heart rate, abnormal resting EKG Stress Test Summary STAGE HR BP Symptoms NOTES Supine 80 164/76 1 min post Lexiscan injection 90 dyspnea 3 min post Lexiscan injection 94 150/70 6 min post Lexiscan injection 92 148/72 symptoms resolved. MPI Conclusion Technically suboptimal but no definite myocardial ischemia or evidence of prior infarction EF 63% Radiologist Interpretation Radiologist agrees with Ad Writer's Interpretation. Radiologist Interpretation by: Chino Fang MD Interpretation Date/Time: 04/01/2021 15:07:56
[2021-04-01] MEDS: Regadenoson 0.4 MG/5 ML SYR IVP (10:56)
== END 2021-04-01 01:57 ==
PROVIDERS: Visit Provider Internal Medicine Cardiovascular Disease
DX: R06.09 Other forms of dyspnea (principal); I50.30 Unspecified diastolic (congestive) heart failure; E11.9 Type 2 diabetes mellitus without complications; Z79.4 Long term (current) use of insulin; Z82.49 Family history of ischemic heart disease and other diseases of the circulatory system; Z87.891 Personal history of nicotine dependence; I11.0 Hypertensive heart disease with heart failure; E78.5 Hyperlipidemia, unspecified; E66.9 Obesity, unspecified; R94.39 Abnormal result of other cardiovascular function study
CPT/HCPCS: 78452; 93017; J2785

== ENCOUNTER 2021-04-06 03:35 | Outpatient (CLI) | payer BC, MEDICARE, SELFPAY ==
[2021-04-06 09:35] LABS: Abs Immature Grans 0.13 10^3/uL (0.0-0.06); Absolute Basophil Count 0.09 10^3/uL (0.0-0.2); Absolute Eosinophil Count 0.37 10^3/uL (0.0-0.7); Absolute Lymphocyte Count 1.15 10^3/uL (1.2-3.4); Absolute Monocyte Count 0.78 10^3/uL (0.1-0.8); Absolute Neutrophil Count 10.71 10^3/uL (1.2-6.7); Basophils % 0.7; Eosinophils % 2.8; HCT 29.5 % (36.0-46.0); Lymphocytes % 8.7; MCH 29.2 pg (27.0-33.0); MCHC 30.5 % (32.0-36.0); MCV 95.8 fL (80-95); MPV 10.4 fL (8.0-11.0); Monocytes % 5.9; Neutrophils % 80.9; Nucleated RBC 0 %; Platelet Count 431 10^3/uL (130-400); RBC 3.08 10^6/uL (3.93-5.22); RDW 18.4 % (11.7-14.6); RDW-SD 62.8 fL; WBC 13.24 10^3/uL (4.4-10.8)
[2021-04-06 09:47] LABS: ALT 34 U/L (14-59); AST 13 U/L (15-37); Alkaline Phosphatase 112 U/L (46-116); Anion Gap 6.8 mmol/L (3-11); BUN 56 mg/dL (7-18); Bilirubin, Total 0.3 mg/dL (0.2-1.0); CO2 27.2 mmol/L (21.0-32.0); CREATININE 1.7 mg/dL (0.55-1.02); Chloride 103 mmol/L (98-107); Estimated GFR 30.07 (mL/min/1.73m2); Glucose 229 mg/dL (74-106); Potassium 4.8 mmol/L (3.5-5.1); Sodium 137 mmol/L (136-145); Total Protein 8.1 g/dL (6.4-8.2)
== END 2021-04-06 03:36 | disposition home or self-care (01) ==
LOC: LBO 03:35
PROVIDERS: Visit Provider Internal Medicine
DX: C67.9 Malignant neoplasm of bladder, unspecified (principal)
CPT/HCPCS: 36415; 80053; 83735; 85025

== ENCOUNTER 2021-04-09 03:21 | Outpatient (CLI) | payer BC, MEDICARE, SELFPAY ==
[2021-04-09 14:57] LABS: Bilirubin Negative (Negative); Blood Moderate (Negative); Clarity Clear (Clear); Glucose Negative (Negative); Ketones Negative (Negative); Leukocyte Esterase Trace (Negative); Nitrite Negative (Negative); Specific Gravity 1.015 (1.005-1.025); Urobilinogen 0.2 EU/dL (Up TO 0.2); pH 5.5 (5-8)
[2021-04-09 15:06] LABS: Bacteria Moderate HPF (Negative); C & S Indicated? Yes; Casts Negative LPF (Negative); Crystals Negative HPF (Negative); Epithelial Cells Few HPF (Negative); Mucus Negative (Negative)
== END 2021-04-09 03:22 | disposition home or self-care (01) ==
LOC: LBO 03:21
PROVIDERS: Nurse Practitioner Adult Health; Visit Provider Internal Medicine
DX: C64.1 Malignant neoplasm of right kidney, except renal pelvis (principal); Z79.899 Other long term (current) drug therapy
CPT/HCPCS: 36415; 80053; 81003; 81015; 83735; 85025; 87086

== ENCOUNTER 2021-04-13 08:30 | Outpatient (CLI) | payer BC, MEDICARE, SELFPAY ==
[2021-04-13 08:46] LABS: Abs Immature Grans 0.08 10^3/uL (0.0-0.06); Absolute Basophil Count 0.13 10^3/uL (0.0-0.2); Absolute Eosinophil Count 0.52 10^3/uL (0.0-0.7); Absolute Lymphocyte Count 1.42 10^3/uL (1.2-3.4); Absolute Monocyte Count 0.55 10^3/uL (0.1-0.8); Absolute Neutrophil Count 7.14 10^3/uL (1.2-6.7); Basophils % 1.3; Eosinophils % 5.3; HCT 29.3 % (36.0-46.0); Immature Grans % 0.8; Lymphocytes % 14.4; MCH 29.6 pg (27.0-33.0); MCHC 30.7 % (32.0-36.0); MCV 96.4 fL (80-95); MPV 10.5 fL (8.0-11.0); Monocytes % 5.6; Neutrophils % 72.6; Nucleated RBC 0 %; Platelet Count 332 10^3/uL (130-400); RBC 3.04 10^6/uL (3.93-5.22); RDW 17.7 % (11.7-14.6); RDW-SD 62.3 fL; WBC 9.84 10^3/uL (4.4-10.8)
[2021-04-13 09:00] LABS: ALT 35 U/L (14-59); AST 14 U/L (15-37); Albumin 2.8 g/dL (3.4-5.0); Alkaline Phosphatase 103 U/L (46-116); Anion Gap 7.4 mmol/L (3-11); BUN 48 mg/dL (7-18); Bilirubin, Total 0.3 mg/dL (0.2-1.0); CO2 27.6 mmol/L (21.0-32.0); CREATININE 1.5 mg/dL (0.55-1.02); Calcium 9.3 mg/dL (8.5-10.1); Chloride 107 mmol/L (98-107); Estimated GFR 34.64 (mL/min/1.73m2); Glucose 172 mg/dL (74-106); Magnesium 1.8 mg/dL (1.8-2.4); Potassium 4.5 mmol/L (3.5-5.1); Sodium 142 mmol/L (136-145); Total Protein 7.7 g/dL (6.4-8.2)
== END 2021-04-13 08:31 | disposition home or self-care (01) ==
LOC: LBO 08:31
PROVIDERS: Visit Provider Internal Medicine
DX: C67.9 Malignant neoplasm of bladder, unspecified (principal)
CPT/HCPCS: 36415; 80053; 83735; 85025

== ENCOUNTER 2021-04-20 03:35 | Outpatient (CLI) | payer BC, MEDICARE, SELFPAY ==
[2021-04-20 08:52] LABS: Abs Immature Grans 0.01 10^3/uL (0.0-0.06); Absolute Basophil Count 0.04 10^3/uL (0.0-0.2); Absolute Eosinophil Count 0.11 10^3/uL (0.0-0.7); Absolute Lymphocyte Count 0.81 10^3/uL (1.2-3.4); Absolute Monocyte Count 0.17 10^3/uL (0.1-0.8); Absolute Neutrophil Count 3.38 10^3/uL (1.2-6.7); Basophils % 0.9; Eosinophils % 2.4; HGB 8.6 g/dL (11.2-15.7); Immature Grans % 0.2; Lymphocytes % 17.9; MCH 29.6 pg (27.0-33.0); MCHC 31.9 % (32.0-36.0); MCV 92.8 fL (80-95); MPV 10.8 fL (8.0-11.0); Monocytes % 3.8; Neutrophils % 74.8; Nucleated RBC 0 %; Platelet Count 162 10^3/uL (130-400); RBC 2.91 10^6/uL (3.93-5.22); RDW 16.7 % (11.7-14.6); RDW-SD 56.6 fL; WBC 4.52 10^3/uL (4.4-10.8)
[2021-04-20 09:09] LABS: ALT 202 U/L (14-59); AST 48 U/L (15-37); Albumin 2.9 g/dL (3.4-5.0); Alkaline Phosphatase 98 U/L (46-116); Anion Gap 6.1 mmol/L (3-11); BUN 43 mg/dL (7-18); Bilirubin, Total 0.3 mg/dL (0.2-1.0); CO2 27.9 mmol/L (21.0-32.0); CREATININE 1.1 mg/dL (0.55-1.02); Calcium 8.8 mg/dL (8.5-10.1); Chloride 106 mmol/L (98-107); Estimated GFR 49.54 (mL/min/1.73m2); Glucose 152 mg/dL (74-106); Magnesium 1.9 mg/dL (1.8-2.4); Potassium 4.9 mmol/L (3.5-5.1); Sodium 140 mmol/L (136-145); Total Protein 7.7 g/dL (6.4-8.2)
== END 2021-04-20 03:36 | disposition home or self-care (01) ==
LOC: LBO 03:35
PROVIDERS: Visit Provider Internal Medicine
DX: C67.9 Malignant neoplasm of bladder, unspecified (principal)
CPT/HCPCS: 36415; 80053; 83735; 85025

== ENCOUNTER 2021-04-28 12:15 | Outpatient (CLI) | payer BC, SELFPAY ==
[2021-04-28 12:37] LABS: Abs Immature Grans 0.08 10^3/uL (0.0-0.06); Absolute Basophil Count 0.04 10^3/uL (0.0-0.2); Absolute Eosinophil Count 0.26 10^3/uL (0.0-0.7); Absolute Lymphocyte Count 1.52 10^3/uL (1.2-3.4); Absolute Monocyte Count 0.61 10^3/uL (0.1-0.8); Absolute Neutrophil Count 6.06 10^3/uL (1.2-6.7); Basophils % 0.5; HGB 8.8 g/dL (11.2-15.7); Immature Grans % 0.9; Lymphocytes % 17.7; MCH 30.1 pg (27.0-33.0); MCHC 32.6 % (32.0-36.0); MCV 92.5 fL (80-95); MPV 10.6 fL (8.0-11.0); Monocytes % 7.1; Neutrophils % 70.8; Nucleated RBC 0 %; Platelet Count 281 10^3/uL (130-400); RBC 2.92 10^6/uL (3.93-5.22); RDW 17.1 % (11.7-14.6); RDW-SD 57.5 fL; WBC 8.57 10^3/uL (4.4-10.8)
[2021-04-28 12:49] LABS: ALT 48 U/L (14-59); AST 14 U/L (15-37); Albumin 2.9 g/dL (3.4-5.0); Alkaline Phosphatase 108 U/L (46-116); Anion Gap 7.8 mmol/L (3-11); BUN 50 mg/dL (7-18); Bilirubin, Total 0.2 mg/dL (0.2-1.0); CO2 26.2 mmol/L (21.0-32.0); CREATININE 1.4 mg/dL (0.55-1.02); Calcium 8.9 mg/dL (8.5-10.1); Chloride 104 mmol/L (98-107); Estimated GFR 37.51 (mL/min/1.73m2); Glucose 181 mg/dL (74-106); Magnesium 1.7 mg/dL (1.8-2.4); Potassium 4.7 mmol/L (3.5-5.1); Sodium 138 mmol/L (136-145); Total Protein 7.6 g/dL (6.4-8.2)
== END 2021-04-28 12:16 | disposition home or self-care (01) ==
LOC: LBO 12:16
PROVIDERS: Visit Provider Internal Medicine
DX: C67.9 Malignant neoplasm of bladder, unspecified (principal)
CPT/HCPCS: 36415; 80053; 83735; 85025

== ENCOUNTER 2021-05-04 03:45 | Outpatient (CLI) | payer BC, SELFPAY ==
[2021-05-04 09:52] LABS: Abs Immature Grans 0.17 10^3/uL (0.0-0.06); Absolute Basophil Count 0.09 10^3/uL (0.0-0.2); Absolute Lymphocyte Count 1.53 10^3/uL (1.2-3.4); Absolute Monocyte Count 0.59 10^3/uL (0.1-0.8); Absolute Neutrophil Count 6.62 10^3/uL (1.2-6.7); Eosinophils % 2.2; HCT 30.7 % (36.0-46.0); HGB 9.6 g/dL (11.2-15.7); Immature Grans % 1.8; Lymphocytes % 16.6; MCH 30.1 pg (27.0-33.0); MCHC 31.3 % (32.0-36.0); MCV 96.2 fL (80-95); MPV 9.7 fL (8.0-11.0); Monocytes % 6.4; Nucleated RBC 0 %; Platelet Count 446 10^3/uL (130-400); RBC 3.19 10^6/uL (3.93-5.22); RDW 16.4 % (11.7-14.6); RDW-SD 58.5 fL
[2021-05-04 10:17] LABS: ALT 41 U/L (14-59); AST 18 U/L (15-37); Alkaline Phosphatase 111 U/L (46-116); Anion Gap 6.4 mmol/L (3-11); BUN 41 mg/dL (7-18); Bilirubin, Total 0.2 mg/dL (0.2-1.0); CO2 28.6 mmol/L (21.0-32.0); CREATININE 1.2 mg/dL (0.55-1.02); Calcium 9.1 mg/dL (8.5-10.1); Chloride 106 mmol/L (98-107); Estimated GFR 44.81 (mL/min/1.73m2); Glucose 135 mg/dL (74-106); Magnesium 2.2 mg/dL (1.8-2.4); Potassium 4.5 mmol/L (3.5-5.1); Sodium 141 mmol/L (136-145)
== END 2021-05-04 03:46 | disposition home or self-care (01) ==
LOC: LBO 03:46
PROVIDERS: Visit Provider Internal Medicine
DX: C67.9 Malignant neoplasm of bladder, unspecified (principal)
CPT/HCPCS: 36415; 80053; 83735; 85025

== ENCOUNTER 2021-05-11 02:39 | Outpatient (CLI) | payer BC, SELFPAY ==
[2021-05-11 09:54] LABS: Abs Immature Grans 0.01 10^3/uL (0.0-0.06); Absolute Basophil Count 0.04 10^3/uL (0.0-0.2); Absolute Eosinophil Count 0.03 10^3/uL (0.0-0.7); Absolute Lymphocyte Count 1.01 10^3/uL (1.2-3.4); Absolute Monocyte Count 0.11 10^3/uL (0.1-0.8); Absolute Neutrophil Count 2.06 10^3/uL (1.2-6.7); Basophils % 1.2; Eosinophils % 0.9; HCT 27.4 % (36.0-46.0); HGB 8.7 g/dL (11.2-15.7); Immature Grans % 0.3; MCH 30.1 pg (27.0-33.0); MCHC 31.8 % (32.0-36.0); MCV 94.8 fL (80-95); MPV 9.7 fL (8.0-11.0); Monocytes % 3.4; Neutrophils % 63.2; Nucleated RBC 0 %; Platelet Count 205 10^3/uL (130-400); RBC 2.89 10^6/uL (3.93-5.22); RDW-SD 52.8 fL; WBC 3.26 10^3/uL (4.4-10.8)
[2021-05-11 10:06] LABS: ALT 45 U/L (14-59); AST 27 U/L (15-37); Albumin 2.9 g/dL (3.4-5.0); Alkaline Phosphatase 104 U/L (46-116); Anion Gap 6.6 mmol/L (3-11); BUN 38 mg/dL (7-18); Bilirubin, Total 0.3 mg/dL (0.2-1.0); CO2 27.4 mmol/L (21.0-32.0); CREATININE 1.4 mg/dL (0.55-1.02); Calcium 8.9 mg/dL (8.5-10.1); Chloride 105 mmol/L (98-107); Estimated GFR 37.51 (mL/min/1.73m2); Glucose 176 mg/dL (74-106); Magnesium 1.7 mg/dL (1.8-2.4); Potassium 4.3 mmol/L (3.5-5.1); Sodium 139 mmol/L (136-145); Total Protein 7.4 g/dL (6.4-8.2)
== END 2021-05-11 02:40 | disposition home or self-care (01) ==
LOC: LBO 02:39
PROVIDERS: Visit Provider Internal Medicine
DX: C67.9 Malignant neoplasm of bladder, unspecified (principal)
CPT/HCPCS: 36415; 80053; 83735; 85025

== ENCOUNTER 2021-05-19 10:38 | Observation (INO) | payer BC, MEDICARE, SELFPAY ==
[2021-05-19] VITALS (66 sets, daily range): BP systolic 109–170; BP diastolic 52–89; PULSE 76–108; RESP 10–30; TEMP 36.4–37; O2SAT 93–100
--- NOTE | 2021-05-19 10:30 | RT.EKG_ITS ---
APPROVED REPORT Exam: Resting ECG Reason for Exam: fluid overload, weakness Patient Location: E HR:96 bpm ECG Measurements Heart Rate 96 AXIS DC 160 P 44 QRSd 90 QRS 43 QT 349 T 213 QTc 442 Conclusion Sinus rhythm...normal P axis, V-rate 60- 99 Repol abnrm suggests ischemia, anterolateral...ST dep, T neg, I aVL V2-V6. ST depression and T wave inversion in inferior and anterolateral leads, slightly more pronouced than previous. No STEMI. I have reviewed and interpreted ECG and agree with software generated interpretation.
--- NOTE | 2021-05-19 10:42 | ED.GENADUL_ITS ---
Discharge Plan Disposition Patient Disposition: [facility] INPATIENT Condition: Fair Discharge Details Clinical Impression: Chest pain, Pericardial effusion, Elevated troponin, Acute anemia, Thrombocytopenia, Bandemia Admit Date/Time: 05/19/21 15:55 Admit Provider: Radha Hernandez Attending Provider: Radha Hernandez Primary Care Provider: Unknown,Unknown ED Provider: Trinity Vergara Discharge Data Discharge Date/Time-TO BE ENTERED AT DEPARTURE: 05/19/21 17:04 Medical Decision Making 67yo F w/ a PMHx of metastatic urothelial carcinoma on chemotherapy, recently diagnosed thrombophlebitis of RUE, h/o IDDM2 with frequent hypoglycemic episodes, and hypertension, who was a patient on [facility] hospitalist service from 03/19/21 until 03/22/21 for acute onset pulmonary and bilateral lower extremity edema, thought to be result of gemcitabine therapy who presents for concern for acute chf/fluid overload after home health noted pt had a recent weight gain and leg swelling. Patient appears comfortable and nontoxic. She is speaking in full sentences. Oxygen saturation 99% on room air. She has lower extremity nonpitting edema. Abdomen soft and nontender. Diminished lung sounds in bases bilaterally. Moving all extremities. No focal data Considering patient's age and history, will obtain screening labs, urinalysis, CT chest abdomen and pelvis. We will give a dose of 40 mg Lasix IV x 1. 1435 --patient complaining of burning chest pain that developed in radiology. She states she has had this ongoing chest pain for the past several months and states this is consistent with that but worse than usual. Stat EKG obtained w [facility] notes slight increase in ST depressions in inferior and anterior lateral leads. Stat troponin obtained. Upon my assessment, patient states the chest pain is improving. Labs reviewed. Hemoglobin 7.4, down trended from 8.7. Platelets 33, down trended from 205. Bands 14. Mag 1.7. BNP 2165. Troponin 0.06. Urinalysis notes blood but negative leukocyte esterase and nitrate with 3-5 WBCs. Chest x-ray initially ordered and inadvertently not canceled and was done without any acute findings. CT chest abdomen and pelvis notes an unchanged pericardial effusion. Reviewed with Dr. Gómez and he does not see any obvious pulmonary embolism. Bedside guaiac noted brown stool and negative for blood. Repeat troponin uptrending at 0.07. Consider demand ischemia. Case discussed with hospitalist accepts patient for admission for continued monitoring, serial troponins and EKGs. Would like a dose of IV Protonix. Patient is agreeable with plan for admission. We will plan for echo upon a dmission. Medical Records Medical records reviewed: Yes I reviewed the patient's medical records. Imaging Data Radiologic Study: Radiologist's impression: XR CHEST 2V PA LATERAL CLINICAL HISTORY: sob, r/o acute disease. TECHNIQUE: 2D digital imaging was performed. COMPARISON: CR CHEST 2 VIEWS PA,LAT from 01/18/2016 FINDINGS: Mild cardiomegaly. Mediastinum is not widened. No new right lung findings. Some scarring in the lingular segment of the left lung is again noted. No pleural effusions. No pneumothorax. IMPRESSION: Left lung lingular segment atelectasis or scarring, unchanged from 2016. No new pulmonary findings. Cardiomegaly. No pulmonary edema. CT CHEST/ABD/PEL W CLINICAL HISTORY: SOB, Hx CHF, Edema. TECHNIQUE: Imaging Protocol: Axial computed tomography images with coronal and sagittal reformatted images were created and reviewed CONTRAST MATERIAL: Intravenous: Omnipaque 350 Contrast volume:100 ml Oral: None COMPARISON: CT CT RENAL COLIC WO from 02/09/[address] RENAL COLIC WO from 02/09/[address] CHEST PE CTA from 03/19/2021 FINDINGS: CHEST: LUNGS: Previously present ground-glass infiltrates in both lung de la rosa have resolved. There is some mild atelectasis in the right middle lobe and lingular segment of the left lung again noted. There are no pleural effusions. No ominous pulmonary nodules. No focal findings in trachea and mainstem bronchi.. MEDIASTINUM: There is no hilar nor mediastinal adenopathy. Visualized thyroid unremarkable. CARDIAC: Heart size is normal. However, there is again noted a small-moderate size pericardial effusion which is unchanged from 03/19/2021.Caliber of the ascending thoracic aorta is within normal limits. Caliber of aortic arch is within normal limits. Descending thoracic aorta is atherosclerotic as is the abdominal aorta but without evidence of aneurysmal dilatation. These aortic findings are unchanged. OSSEOUS: No significant osseous lesions.. ABDOMEN: There is no ascites. LIVER: There are no focal hepatic lesions nor dilatation of intrahepatic ducts. GALLBLADDER/BILIARY: No obvious gallbladder pathology. CBD is not dilated. PANCREAS: No evidence of pancreatic mass nor dilatation of the pancreatic duct. SPLEEN: Spleen is not enlarged. There are no intrasplenic lesions. Splenic and portal veins are patent. ADRENALS: There are no significant adrenal masses. KIDNEYS: Left kidney is unremarkable.. Right ureteral stent is again noted. This double-pigtail stent extends from the level of the renal pelvis down into the urinary bladder, unchanged. No hydronephrosis nor hydroureter. No abnormal periureteral collections. The urinary bladder wall is slightly thickened anteriorly. Urinary bladder is not distended. Small nonobstructive calculus left kidney is noted. ABDOMINAL AORTA: Calcified-atherosclerotic but not enlarged. Aortic bifurcation is also heavily calcified as are the iliac arteries. No aneurysmal dilatation. LYMPH NODES: The previously described right para-aortic adenopathy has significantly decreased. ABDOMINAL WALL: No evidence of significant anterior abdominal wall hernia. There are multiple bilateral densities in the subcutaneous fat below the umbilicus level which were not previously present and are most probably related to anticoagulant injections. No evidence of hematoma in this underlying musculature. GI: There is no evidence of bowel obstruction. PELVIS: LYMPH NODES: No adenopathy around the aortic bifurcation nor along the iliac chains and there is no inguinal adenopathy. GI: No evidence of appendicitis.No evidence of sigmoid diverticulitis. URINARY BLADDER: Not distended. Ureteral stent in place. REPRODUCTIVE: Uterus is again noted to be surgically absent. There are no abnormal adnexal masses nor free fluid OSSEOUS: No significant osseous lesions. IMPRESSION: 1. Compared to the prior CT scans listed above the bilateral pulmonary ground- glass infiltrates have mostly resolved. There is some persistent atelectasis in the right middle lobe and lingular segment left lung. No pleural effusions nor intrathoracic adenopathy 2. Mild-moderate size pericardial effusion is again noted, unchanged in size. 3. Significant atherosclerotic disease again noted in the descending thoracic aorta and abdominal aorta, without aneurysmal dilatation. Atherosclerotic disease extends into the nondilated iliac arteries. 4. Right ureteral stent in place, extending from the renal pelvis down to the urinary bladder. Hydronephrosis has mostly resolved. No solid masses in the kidneys. Small 2-3 millimeter nonobstructive calculus in the left kidney is again noted. 5. The previously present para-aortic adenopathy is mostly resolved. 6. Subcutaneous anterior fat densities now evident which are probably anticoagulant injections. No drainable abscess. 7. Uterus is again noted be surgically absent. There are no abnormal adnexal masses. ECG Data Attestation: I personally reviewed and interpreted this ECG (s) as follows: Interpretation: Rate of 96, sinus, ST depression and T wave inversions in inferior and anterior lateral leads, seen in previous but slightly more pronounced. No STEMI. HPI General Mode of arrival: ambulatory . Date/Time Provider Initiated Documentation: 05/19/21 10:39 . Limitations to Documentation: no limitations . Information obtained by: patient . HPI Narrative: Pt is a 66yo F w/ a PMHx of metastatic urothelial carcinoma on chemotherapy, as well as recently diagnosed thrombophlebitis of RUE on cipro, h/o IDDM2 with frequent hypoglycemic episodes, and hypertension, who was a patient on [facility] hospitalist service from 03/19/21 until 03/22/21 for acute onset pulmonary and bilateral lower extremity edema, thought to be result of gemcitabine therapy who presents for concern for acute chf/fluid overload after home health noted pt had a recent weight gain and leg swelling. Patient states her legs appear more swollen and this current episode than when she was admitted here in February. She admits to a 10 pound weight gain of 208 218 pounds over the last week. She also has epigastric pain with radiation up her chest causing nausea and decreased appetite. She also admits to a pain in her lumbar spine that developed after a bowel movement this morning that has since resolved. She denies any chest pain, vomiting, diarrhea. She states she had improved after her hospitalization in February and has been taking 20 mg of Lasix twice daily and spironolactone. She states her last chemotherapy treatment was 1 week ago. Related Data Home Medications Medication Instructions Recorded Confirmed cholecalciferol (vitamin D3) 1,000 iu PO DAILY #100 tab-cap 07/31/14 05/19/21 nystatin-triamcinolone 1 applic TOPICAL BID PRN PRN #12 09/01/16 05/19/21 box OneTouch Ultra Test #400 strip 10/18/16 03/19/21 losartan 100 mg PO DAILY #90 tab-cap 11/25/16 05/19/21 prochlorperazine maleate 10 mg PO Q6H PRN 03/19/21 05/19/21 sennosides [senna] 17.2 mg PO BID 03/19/21 05/19/21 spironolactone 12.5 mg PO DAILY 03/19/21 05/19/21 Fleet Enema [address] ONCE PRN 03/20/21 05/19/21 omeprazole 20 mg PO HS PRN 03/20/21 05/19/21 cyanocobalamin (vitamin B-12) 500 mcg PO DAILY #30 tab 03/22/21 05/19/21 [Vitamin B-12] pyridoxine (vitamin B6) [Vitamin 100 mg PO DAILY #30 tab 03/22/21 05/19/21 B-6] furosemide 20 mg tablet 20 mg PO BID #90 tab 03/29/21 05/19/21 Tresiba FlexTouch U-100 58 unit SQ QAM 05/19/21 05/19/21 apixaban [Eliquis] 2.5 mg PO BID 05/19/21 05/19/21 insulin lispro [Humalog KwikPen 0 - 6 unit SUBCUT PRN PRN 05/19/21 05/19/21 Insulin] Previous Rx's Medication Instructions Recorded cyanocobalamin (vitamin B-12) 500 mcg PO DAILY #30 tab 03/22/21 [Vitamin B-12] pyridoxine (vitamin B6) [Vitamin 100 mg PO DAILY #30 tab 03/22/21 B-6] furosemide 20 mg tablet 20 mg PO BID #90 tab 03/29/21 Allergies Allergy/AdvReac Type Severity Reaction Status Date / Time Sulfa (Sulfonamide Allergy Severe rash Unverified 05/19/21 11:23 Antibiotics) adhesive Allergy Intermediate Skin Rash Unverified 05/19/21 11:23 exenatide microspheres Allergy Unknown Unverified 05/19/21 11:23 [From Bydureon] loratadine AdvReac Severe MADE HER Unverified 05/19/21 11:23 FEEL HYPER celecoxib [From Celebrex] AdvReac Intermediate Pt states Unverified 05/19/21 11:23 side effects unspecified gluten AdvReac Intermediate Diarrhea Unverified 05/19/21 11:23 lactose AdvReac Intermediate Diarrhea Unverified 05/19/21 11:23 Lrvtetl-Xmf-Art Reductase AdvReac Unverified 05/19/21 11:23 Inhibitor General NEHA: 3 Review of Systems All systems reviewed & are unremarkable except as noted in HPI and below Constitutional Constitutional: Reports as per HPI, Denies chills and Denies fever(s) Eyes Eyes: Denies blurry vision ENT Ears, Nose, Mouth, and Throat: Denies dizziness, Denies sore throat and Denies throat swelling Cardiovascular Cardiovascular: Denies chest pain, Reports leg edema and Reports dyspnea Respiratory Respiratory: Denies cough and Reports dyspnea Gastrointestinal Gastrointestinal: Denies abdominal pain, Denies diarrhea and Denies vomiting Genitourinary Genitourinary: Denies hematuria and Denies dysuria Musculoskeletal Musculoskeletal: Denies back pain and Denies numbness Integumentary/Breasts Skin/Breast: Denies lesions and Denies rash Neurologic Neurologic: Denies dizziness, Denies localized weakness and Denies numbness Allergic/Immunologic Allergic/Immunologic: Denies throat swelling [facility] Medical History (Updated 05/19/21 @ 19:22 by Radha Hernandez MD) Anxiety Depression Diabetes Diastolic heart failure Gastritis and duodenitis GERD (gastroesophageal reflux disease) History of colon polyps Hyperlipidemia Hypertension Obesity Osteoarthritis Superficial thrombophlebitis of right upper extremity Urothelial carcinoma Surgical History Abdominal hysterectomy (~11/2010) for fibroid Bilateral salpingectomy with oophorectomy Biopsy of breast cyst excised-left section Colonoscopy - MAC (01/10/17) EGD - MAC (01/10/17) Extraction of cataract (11/10/16) LEFT EYE; DR. MORRIS Hemorrhoidectomy and anal fissure repair Hernia Repair, Incisional OOPHRECTOMY, UNILATERAL (~1991) , Ectopic (~1991) Family History Mother Personal history of malignant neoplasm UTERINE Father Personal history of malignant neoplasm COLON Brother Heart disease Brother No problems noted. Brother No problems noted. Grandfather Personal history of malignant neoplasm Grandfather No problems noted. Grandmother Personal history of malignant neoplasm Stroke Grandmother Diabetes Personal history of malignant neoplasm Social History Smoking/Tobacco Use Status: Former Tobacco Use Smoking risk assessment performed?: Yes Alcohol Intake: never Drug use: Never Substance use type: does not use Details: vapor use Do you feel safe at home: Yes Do you feel safe in your relationship?: Yes Exam Const General: cooperative and no acute distress Nutritional Appearance: obese morbidly obese [facility] Head: normal to inspection Face and sinus: normal facial exam Mouth: mucous membranes dry Eyes General: appearance normal, both eyes and all related structures EOM: EOM intact bilaterally Neck Neck: normal visual inspection and No submandibular swelling Lymphatic: no lymphadenopathy noted Chest Chest: normal inspection of the chest and no tenderness Resp Effort & Inspection: normal respiratory effort and able to speak in complete sentences Auscultation: diminished lung sounds bilaterally in the lower lung de la rosa Cardio Rate: regular rate Rhythm: regular rhythm GI Inspection: normal to inspection Palpation: soft, not firm, not rigid and nontender Auscultation: normal bowel sounds Back/Spine/Pelvis Thoracic/Lumbar Spine: thoracic and lumbar spine normal to inspection and No lumbar spinal tenderness Skin General skin exam: no rashes or lesions noted Neuro General: patient alert, patient awake and patient oriented x3 Cognition: normal cognition Speech: speech normal Motor: muscle tone normal throughout Sensory Exam: no sensory deficits noted Extrem General: normal to inspection, full ROM, capillary refill normal, no calf tenderness bilaterally and edema Laterality: bilateral (nonpitting) Psych Appearance: grossly normal Mental Status: mental status grossly normal Speech and Movement: speech and movement normal Affect: normal affect
[2021-05-19] MEDS: Ondansetron 4 MG/2 ML VIAL IVP (11:47)
[2021-05-19 11:49] LABS: Bilirubin Negative (Negative); Blood Moderate (Negative); Clarity Clear (Clear); Glucose Negative (Negative); Ketones Negative (Negative); Leukocyte Esterase Negative (Negative); Nitrite Negative (Negative); Urobilinogen 0.2 EU/dL (Up TO 0.2); pH 5.5 (5-8)
[2021-05-19] MEDS: Furosemide 40 MG/4 ML VIAL IVP (11:49)
[2021-05-19] MEDS: FAMOTIDINE 20 MG/50 ML BAG 200 MG IVPB (11:51)
[2021-05-19] MEDS: Sucralfate 1 GM TAB PO ×2 (11:52→21:57)
[2021-05-19 12:01] LABS: Abs Immature Grans 0.29 10^3/uL (0.0-0.06); HCT 23.2 % (36.0-46.0); HGB 7.4 g/dL (11.2-15.7); MCHC 31.9 % (32.0-36.0); MCV 93.9 fL (80-95); MPV 12.3 fL (8.0-11.0); Nucleated RBC 0 %; RBC 2.47 10^6/uL (3.93-5.22); RDW 14.6 % (11.7-14.6); RDW-SD 50.1 fL; WBC 9.58 10^3/uL (4.4-10.8)
[2021-05-19 12:05] LABS: Epithelial Cells Rare HPF (Negative)
[2021-05-19 12:06] LABS: Bacteria Rare HPF (Negative); C & S Indicated? No; Casts Negative LPF (Negative); Crystals Negative HPF (Negative); Mucus Negative (Negative); Other Cells Negative (Negative)
[2021-05-19 12:18] LABS: ALT 47 U/L (14-59); AST 31 U/L (15-37); Albumin 3.1 g/dL (3.4-5.0); Alkaline Phosphatase 126 U/L (46-116); Anion Gap 9.3 mmol/L (3-11); BUN 36 mg/dL (7-18); Bilirubin, Total 0.2 mg/dL (0.2-1.0); CO2 25.7 mmol/L (21.0-32.0); CREATININE 1.2 mg/dL (0.55-1.02); Calcium 9.3 mg/dL (8.5-10.1); Chloride 108 mmol/L (98-107); Estimated GFR 44.81 (mL/min/1.73m2); Glucose 75 mg/dL (74-106); Magnesium 1.7 mg/dL (1.8-2.4); NT-proBNP 2165 pg/mL (<300); Potassium 4.1 mmol/L (3.5-5.1); Sodium 143 mmol/L (136-145); Total Protein 7.4 g/dL (6.4-8.2); Troponin I 0.06 ng/mL (<0.06)
[2021-05-19] MEDS: Normal Saline Flush 10 ML SYR IVP ×2 (12:38→17:36)
[2021-05-19 12:51] LABS: Absolute Lymphocyte Count 1.44 10^3/uL (1.2-3.4); Absolute Monocyte Count 0.96 10^3/uL (0.1-0.8); Bands % 14; Platelet Count 33 10^3/uL (130-400)
[2021-05-19 12:52] LABS: Metamyelocytes % 1; Myelocytes % 1
[2021-05-19 12:54] LABS: Other Cells % 1; Polychromasia Present
[2021-05-19 12:55] LABS: Diff Comment Manual Differential
--- NOTE | 2021-05-19 14:00 | RT.EKG_ITS ---
APPROVED REPORT Exam: Resting ECG Reason for Exam: chest pain Patient Location: E HR:101 bpm ECG Measurements Heart Rate 101 AXIS HI 153 P 50 QRSd 87 QRS 53 QT 304 T 218 QTc 394 Conclusion Sinus tachycardia...rate> 99 Repol abnrm suggests ischemia, anterolateral...ST dep, T neg, I aVL V2-V6. Slightly more prominent ST depressions in inferior and anterior lateral leads. I have reviewed and interpreted ECG and agree with software generated interpretation. No STEMI.
--- NOTE | 2021-05-19 14:04 | DI.CT_ITS ---
Exam(s) CT CHEST/ABD/PEL W EXAM: CT CHEST/ABD/PEL W CLINICAL HISTORY: SOB, Hx CHF, Edema. TECHNIQUE: Imaging Protocol: Axial computed tomography images with coronal and sagittal reformatted images were created and reviewed CONTRAST MATERIAL: Intravenous: Omnipaque 350 Contrast volume:100 ml Oral: None COMPARISON: CT CT RENAL COLIC WO from 02/09/[address] RENAL COLIC WO from 02/09/[address] CHEST PE CTA from 03/19/2021 FINDINGS: CHEST: LUNGS: Previously present ground-glass infiltrates in both lung de la rosa have resolved. There is some mild atelectasis in the right middle lobe and lingular segment of the left lung again noted. There a re no pleural effusions. No ominous pulmonary nodules. No focal findings in trachea and mainstem br onchi.. MEDIASTINUM: There is no hilar nor mediastinal adenopathy. Visualized thyroid unremarkable. CARDIAC: Heart size is normal. However, there is again noted a small-moderate size pericardial effus ion which is unchanged from 03/19/2021.Caliber of the ascending thoracic aorta is within normal limit s. Caliber of aortic arch is within normal limits. Descending thoracic aorta is atherosclerotic as is the abdominal aorta but without evidence of aneurysmal dilatation. These aortic findings are unch anged. OSSEOUS: No significant osseous lesions.. ABDOMEN: There is no ascites. LIVER: There are no focal hepatic lesions nor dilatation of intrahepatic ducts. GALLBLADDER/BILIARY: No obvious gallbladder pathology. CBD is not dilated. PANCREAS: No evidence of pancreatic mass nor dilatation of the pancreatic duct. SPLEEN: Spleen is not enlarged. There are no intrasplenic lesions. Splenic and portal veins are robledo nt. ADRENALS: There are no significant adrenal masses. KIDNEYS: Left kidney is unremarkable.. Right ureteral stent is again noted. This double-pigtail luke nt extends from the level of the renal pelvis down into the urinary bladder, unchanged. No hydroneph rosis nor hydroureter. No abnormal periureteral collections. The urinary bladder wall is slightly t hickened anteriorly. Urinary bladder is not distended. Small nonobstructive calculus left kidney is noted. ABDOMINAL AORTA: Calcified-atherosclerotic but not enlarged. Aortic bifurcation is also heavily calc ified as are the iliac arteries. No aneurysmal dilatation. LYMPH NODES: The previously described right para-aortic adenopathy has significantly decreased. ABDOMINAL WALL: No evidence of significant anterior abdominal wall hernia. There are multiple bilate ral densities in the subcutaneous fat below the umbilicus level which were not previously present and are most probably related to anticoagulant injections. No evidence of hematoma in this underlying m usculature. GI: There is no evidence of bowel obstruction. PELVIS: LYMPH NODES: No adenopathy around the aortic bifurcation nor along the iliac chains and there is no i nguinal adenopathy. GI: No evidence of appendicitis.No evidence of sigmoid diverticulitis. URINARY BLADDER: Not distended. Ureteral stent in place. REPRODUCTIVE: Uterus is again noted to be surgically absent. There are no abnormal adnexal masses no r free fluid OSSEOUS: No significant osseous lesions. IMPRESSION: 1. Compared to the prior CT scans listed above the bilateral pulmonary ground-glass infiltrates have mostly resolved. There is some persistent atelectasis in the right middle lobe and lingular segment left lung. No pleural effusions nor intrathoracic adenopathy 2. Mild-moderate size pericardial effusion is again noted, unchanged in size. 3. Significant atherosclerotic disease again noted in the descending thoracic aorta and abdominal aor ta, without aneurysmal dilatation. Atherosclerotic disease extends into the nondilated iliac arterie s. 4. Right ureteral stent in place, extending from the renal pelvis down to the urinary bladder. Darwin nephrosis has mostly resolved. No solid masses in the kidneys. Small 2-3 millimeter nonobstructive calculus in the left kidney is again noted. 5. The previously present para-aortic adenopathy is mostly resolved. 6. Subcutaneous anterior fat densities now evident which are probably anticoagulant injections. No drainable abscess. 7. Uterus is again noted be surgically absent. There are no abnormal adnexal masses. RADIATION DOSE DELIVERED: 1,722.2mGy.cm Total DLP DATA REPOSITORY: All CT scans at this facility are submitted to the National Radiology Data Registry (NRDR) Dose Index Registry (DIR) with the [employer] ([employer]). RADIATION OPTIMIZATION: All CT scans at this facility use at least one of these dose optimization te chniques: automated exposure control; mA and/or kV adjustment per patient size (includes targeted exa ms where dose is matched to clinical indication); or iterative reconstruction.
--- NOTE | 2021-05-19 14:09 | DI.RAD_ITS ---
Exam(s) XR CHEST 2V PA LATERAL EXAM: XR CHEST 2V PA LATERAL CLINICAL HISTORY: sob, r/o acute disease. TECHNIQUE: 2D digital imaging was performed. COMPARISON: CR CHEST 2 VIEWS PA,LAT from 01/18/2016 FINDINGS: Mild cardiomegaly. Mediastinum is not widened. No new right lung findings. Some scarring in the lingular segment of the left lung is again noted. No pleural effusions. No pneumothorax. IMPRESSION: Left lung lingular segment atelectasis or scarring, unchanged from 2016. No new pulmonary findings. Cardiomegaly. No pulmonary edema. DATA REPOSITORY: RADIATION DOSE DELIVERED:
[2021-05-19 15:05] LABS: Troponin I 0.07 ng/mL (<0.06)
[2021-05-19 16:49] LABS: Source Nasal/Nares
[2021-05-19] MEDS: Pantoprazole 40 MG VIAL IVP (17:36)
--- NOTE | 2021-05-19 18:46 | HPE_ITS ---
Date of service: 05/19/21 Time of Service: 18:46 Assessment and Plan Assessment and plan (1) Chest pain: Status: Acute Assessment and plan: Multiple types of chest discomfort described. The typical chest pain with radiation to the jaw and shoulder in conjunction with borderline elevated troponins needs to be ruled out for ACS. Monitor on tele with serial troponins and EKG in am. In setting of acute anemia, transfusion of 1 unit of pRBCs is also indicated as chest pain could be indication of symptomatic anemia. The burning type of pain likely represents esophagitis/GERD. Will treat with IV PPI, carafate, mylanta, viscous lidocaine if needed. The burning discomfort on inspiration is harder to explain, could be due to CHF sx, but could be a side effect of chemotherapy. CT chest was negative. I would not pursue further workup. (2) Elevated troponin: Status: Acute Assessment and plan: As above (3) Acute anemia: Status: Acute Assessment and plan: As above. No evidence of acute bleeding. Heme negative in the ED. Transfuse 1 unit pRBCs. Will add on anemia studies to blood from ED. (4) Acute on chronic diastolic CHF (congestive heart failure), NYHA class 1: Status: Acute Assessment and plan: The patient did just receive 40 mg of IV lasix in the ED and also IV contrast followed by IVF. The patient is not symptomatic of CHF other than edema at this time - for this reason, will hold off of further diuresis until am unless the patient develops sx of fluid overload after her blood transfusion. Monitor I/O's, daily weights. Low sodium diet. Repeat echo. (5) Pericardial effusion: Status: Acute Assessment and plan: Repeat echo. Size unchanged by CT. No evidence of tamponade clinically or on EKG. (6) Urothelial carcinoma: Status: Acute Assessment and plan: on Chemo with carboplatin/gemcitabine. Bloodwork abnormalities are likely due to above. [place] [facility] F/u as outpatient. (7) Peripheral neuropathy: Status: Acute Assessment and plan: Continue vitamins B12 and B6. (8) Thrombocytopenia: Status: Acute Assessment and plan: Due to chemotherapy. Will hold eliquis for fear of bleeding. Monitor Plt count. (9) Superficial thrombophlebitis of right upper extremity: Status: Acute Assessment and plan: As above - hold eliquis (10) IDDM (insulin dependent diabetes mellitus): Status: Chronic Assessment and plan: Continue home basal bolus regimen. (11) Discharge planning issues: Status: Acute Assessment and plan: Full code (12) DVT prophylaxis: Status: Acute Assessment and plan: TEDs. Chemical DVT ppx (and therapeutic eliquis) are on hold due to thrombocytopenia History of Present Illness History of Present Illness Chief Complaint: chest pain, burning in the esop hagus, water retention Narrative: Ms Pichardo is a 66 year old female with PMHx of metastatic urothelial carcinoma, on chemo w/ carboplatin/gemcytabine (peripherally, no port, last treatment on 05/11/21), awaiting nephrectomy in May, as well as h/o pericardial effusion, chronic diastolic CHF, superficial thrombophlebitis RUE on eliquis, IDDM2, who presented to [facility] ED c/o several types of chest discomfort as well as water retention. She experienced L-sided chest pain this afternoon radiating to the jaw and to her L shoulder. Of note, the patient had a negative MPI at our facility on 04/01/21. Additionally, the patient reports a burning sensation traveling up and down from her throat to her stomach which she attributes to digestive issues. Despite this, she has been able to push PO and has been eating. She also reports a different type of burning in her lungs when she breathes. She describes a cough productive of clear sputum. As far as water retention, it specifically pertains to her BLE's and the patient estimates that she has gained 10 lbs of fluid in 3 days. She was evaluated by her home health nurse who, per patient, was concerned that this could be happening due to a worsening pericardial effusion, so the patient came in to the ED. Here, she was found to be anemic with H/H of 7.4/23.2 (normal hgb is closer to 9 for her). She had a platelet count of 33 (normally in 200s). She had troponins of 0.06 and 0.07 in the ED without ischemic changes on the EKG. There was no electrical alternans on the EKG. Hemodynamically, she was stable. Hemoccult was negative. PE was ruled out with a negative CTA, which also showed that the size of the pe ricardial effusion has not changed. She was treated with IV protonix, carafate, and pepcid. She was treated with IV lasix. She did receive a bolus of 250 cc of NS after the IV contrast, but the patient is agreeable to not receiving any more IVF tonight seeing how she is fluid overloaded. She consents to receiving a blood transfusion and staying at our facility, though her initial preference was [place] go [place] [facility] She is full code. Review of Systems Narrative: Additionally, denies PND/orthopnea, but does endorse generalized weakness, low energy, and [place]. Reports burning in her B feet and legs All systems reviewed & are unremarkable except as noted in HPI and below [facility] Medical History (Updated 05/19/21 @ 19:22 by Radha Hernandez MD) Anxiety Depression Diabetes Diastolic heart failure Gastritis and duodenitis GERD (gastroesophageal reflux disease) History of colon polyps Hyperlipidemia Hypertension Obesity Osteoarthritis Superficial thrombophlebitis of right upper extremity Urothelial carcinoma Surgical History Abdominal hysterectomy (~11/2010) for fibroid Bilateral salpingectomy with oophorectomy Biopsy of breast cyst excised-left section Colonoscopy - MAC (01/10/17) EGD - MAC (01/10/17) Extraction of cataract (11/10/16) LEFT EYE; DR. MORRIS Hemorrhoidectomy and anal fissure repair Hernia Repair, Incisional OOPHRECTOMY, UNILATERAL (~1991) , Ectopic (~1991) Family History Mother Personal history of malignant neoplasm UTERINE Father Personal history of malignant neoplasm COLON Brother Heart disease Brother No problems noted. Brother No problems noted. Grandfather Personal history of malignant neoplasm Grandfather No problems noted. Grandmother Personal history of malignant neoplasm Stroke Grandmother Diabetes Personal history of malignant neoplasm Social History Smoking/Tobacco Use Status: Former Tobacco Use Smoking risk assessment performed?: Yes Alcohol Intake: never Drug use: Never Substance use type: does not use Details: vapor use Do you feel safe at home: Yes Do you feel safe in your relationship?: Yes Meds Allergies and Home Medications Allergies Allergy/AdvReac Type Severity Reaction Status Date / Time Sulfa (Sulfonamide Allergy Severe rash Unverified 05/19/21 11:23 Antibiotics) adhesive Allergy Intermediate Skin Rash Unverified 05/19/21 11:23 exenatide microspheres Allergy Unknown Unverified 05/19/21 11:23 [From Bydureon] loratadine AdvReac Severe MADE HER Unverified 05/19/21 11:23 FEEL HYPER celecoxib [From Celebrex] AdvReac Intermediate Pt states Unverified 05/19/21 11:23 side effects unspecified gluten AdvReac Intermediate Diarrhea Unverified 05/19/21 11:23 lactose AdvReac Intermediate Diarrhea Unverified 05/19/21 11:23 Xpednza-Pvk-Jjs Reductase AdvReac Unverified 05/19/21 11:23 Inhibitor Home Medications Medication Instructions Recorded Confirmed Type cholecalciferol (vitamin D3) 1,000 iu PO DAILY #100 tab-cap 07/31/14 05/19/21 History nystatin-triamcinolone 1 applic TOPICAL BID PRN PRN #12 09/01/16 05/19/21 History box OneTouch Ultra Test #400 strip 10/18/16 03/19/21 History losartan 100 mg PO DAILY #90 tab-cap 11/25/16 05/19/21 History prochlorperazine maleate 10 mg PO Q6H PRN 03/19/21 05/19/21 History sennosides [senna] 17.2 mg PO BID 03/19/21 05/19/21 History spironolactone 12.5 mg PO DAILY 03/19/21 05/19/21 History Fleet Enema 118 ml AR ONCE PRN 03/20/21 05/19/21 History omeprazole 20 mg PO HS PRN 03/20/21 05/19/21 History cyanocobalamin (vitamin B-12) 500 mcg PO DAILY #30 tab 03/22/21 05/19/21 Rx [Vitamin B-12] pyridoxine (vitamin B6) [Vitamin 100 mg PO DAILY #30 tab 03/22/21 05/19/21 Rx B-6] furosemide 20 mg tablet 20 mg PO BID #90 tab 03/29/21 05/19/21 Rx Tresiba FlexTouch U-100 58 unit SQ QAM 05/19/21 05/19/21 History apixaban [Eliquis] 2.5 mg PO BID 05/19/21 05/19/21 History insulin lispro [Humalog KwikPen 0 - 6 unit SUBCUT PRN PRN 05/19/21 05/19/21 History Insulin] Exam Narrative Exam Narrative: General: Pleasant anxious middle-aged female who looks more tired than the last time I saw her, A&Ox3, NAD Neurological: A&Ox3, R-sided [place] palsy, otherwise no focal deficits Psychiatric: Anxious, appropriate speech pattern/content Skin: Visible skin intact HEENT: Atraumatic, normocephalic, EOMI, MMM, no submandibular or cervical lymphadenopathy, no goiter or JVD Cardiovascular: RRR, no m/r/g Lungs: CTAB Gastrointestinal: soft, diffusely tender, not in [address], nondistended Genitourinary: deferred Extremities: 2+ edema at B feet, 1+ up to the knee, no clubbing/cyanosis Results Imaging Additional studies: CT chest/abdomen/pelvis: 1. Compared to the prior CT scans listed above the bilateral pulmonary ground-glass infiltrates have mostly resolved. There is some persistent atelectasis in the right middle lobe and lingular segment left lung. No pleural effusions nor intrathoracic adenopathy 2. Mild-moderate size pericardial effusion is again noted, unchanged in size. 3. Significant atherosclerotic disease again noted in the descending thoracic aorta and abdominal aorta, without aneurysmal dilatation. Atherosclerotic disease extends into the nondilated iliac arteries. 4. Right ureteral stent in place, extending from the renal pelvis down to the urinary bladder. Hydronephrosis has mostly resolved. No solid masses in the kidneys. Small 2-3 millimeter nonobstructive calculus in the left kidney is again noted. 5. The previously present para-aortic adenopathy is mostly resolved. 6. Subcutaneous anterior fat densities now evident which are probably anticoagulant injections. No drainable abscess. 7. Uterus is again noted be surgically absent. There are no abnormal adnexal masses. CXR: Left lung lingular segment atelectasis or scarring, unchanged from 2016. No new pulmonary findings. Cardiomegaly. No pulmonary edema. Labs Result diagrams: 05/19/21 11:29 05/19/21 11:29 Labs: Laboratory Results - last 24 hr 06/05/19/21 05/19/21 11:29 11:29 11:42 WBC 9.58 RBC 2.47 L Hgb 7.4 L Hct 23.2 L MCV 93.9 MCH 30.0 MCHC 31.9 L RDW 14.6 Plt Count 33 L D MPV 12.3 H Immature Gran % See Differential Neutrophils % 58.0 Band Neutrophils % 14 Lymphocytes % 15.0 Monocytes % 10.0 Eosinophils % 0.0 Basophils % 0.0 Metamyelocytes % 1 Myelocytes % 1 Other Cells % 1 Nucleated RBC % 0 Absolute Neutrophils 6.90 H Absolute Lymphocytes 1.44 Absolute Monocytes 0.96 H Absolute Eosinophils 0.00 Absolute Basophils 0.00 RBC Morphology See Below Polychromasia Present Sodium 143 Potassium 4.1 Chloride 108 H Carbon Dioxide 25.7 Anion Gap 9.3 BUN 36 H Creatinine 1.2 H Estimated GFR/1.73 m2 44.81 Glucose 75 Calcium 9.3 Magnesium 1.7 L Total Bilirubin 0.2 AST 31 ALT 47 Alkaline Phosphatase 126 H Troponin I 0.06 NT-Pro-B Natriuret Pep 2165 H Total Protein 7.4 Albumin 3.1 L Urine Color Yellow Urine Clarity Clear Urine pH 5.5 Ur Specific [place] 1.010 Urine Protein 30 H Urine Ketones Negative Urine Blood Moderate H Urine Nitrite Negative Urine Bilirubin Negative Urine Urobilinogen 0.2 Ur Leukocyte Esterase Negative Urine RBC 10-20 H Urine WBC 3-5 Ur Epithelial Cells Rare Urine Crystals Negative Urine Bacteria Rare Urine Casts Negative Urine Mucus Negative Urine Other Negative Ur Culture Indicated? No Urine Glucose Negative COVID-19 Source 05/19/21 05/19/21 14:40 16:30 WBC RBC Hgb Hct MCV MCH MCHC RDW Plt Count MPV Immature Gran % Neutrophils % Band Neutrophils % Lymphocytes % Monocytes % Eosinophils % Basophils % Metamyelocytes % Myelocytes % Other Cells % Nucleated RBC % Absolute Neutrophils Absolute Lymphocytes Absolute Monocytes Absolute Eosinophils Absolute Basophils RBC Morphology Polychromasia Sodium Potassium Chloride Carbon Dioxide Anion Gap BUN Creatinine Estimated GFR/1.73 m2 Glucose Calcium Magnesium Total Bilirubin AST ALT Alkaline Phosphatase Troponin I 0.07 H NT-Pro-B Natriuret Pep Total Protein Albumin Urine Color Urine Clarity Urine pH Ur Specific [place] Urine Protein Urine Ketones Urine Blood Urine Nitrite Urine Bilirubin Urine Urobilinogen Ur Leukocyte Esterase Urine RBC Urine WBC Ur Epithelial Cells Urine Crystals Urine Bacteria Urine Casts Urine Mucus Urine Other Ur Culture Indicated? Urine Glucose COVID-19 Source Nasal/Nares Last Vital Signs Temp 37.0 C 05/19/21 17:14 Pulse 95 H 05/19/21 17:14 Resp 17 05/19/21 17:14 BP 170/70 H 05/19/21 17:14 Pulse Ox 99 05/19/21 17:14
[2021-05-19 20:52] LABS: Iron 106 ug/dL (50-170); Total Iron Binding Capacity 325 ug/dL (250-450); Transferrin Sat 33 % (15-50)
[2021-05-19] MEDS: Senna TAB PO (20:52)
[2021-05-19] MEDS: diphenhydrAMINE 25 MG CAP PO (20:52)
[2021-05-19] MEDS: Docusate Sodium 100 MG CAP PO (20:52)
[2021-05-19] MEDS: Acetaminophen 325 MG TAB 650 MG PO (20:52)
[2021-05-19 21:13] LABS: Ferritin 266 ng/mL (8-252); Folate 8.2 ng/mL (8.6-20.0)
[2021-05-19 21:14] LABS: Vitamin B12 > 2000 pg/mL (193-986)
[2021-05-19 21:21] LABS: COVID-19 PCR Negative (Negative)
[2021-05-19 23:21] LABS: Troponin I 0.06 ng/mL (<0.06)
[2021-05-20] VITALS (9 sets, daily range): BP systolic 124–178; BP diastolic 71–95; PULSE 83–110; RESP 17–20; TEMP 35.9–36.6; O2SAT 92–98
[2021-05-20] MEDS: Sucralfate 1 GM TAB PO ×4 (07:26→21:44)
--- NOTE | 2021-05-20 08:00 | RT.EKG_ITS ---
APPROVED REPORT Exam: Resting ECG Reason for Exam: chest pain, elevated troponin Patient Location: I HR:99 bpm ECG Measurements Heart Rate 99 AXIS CA 152 P 49 QRSd 91 QRS 46 QT 318 T 209 QTc 409 Conclusion Sinus rhythm...normal P axis, V-rate 60- [address]-T changes
--- NOTE | 2021-05-20 08:00 | DI.US_ITS ---
APPROVED REPORT EXAM: Comprehensive 2D, Doppler, and color-flow Echocardiogram Patient Location: In-Patient Room/Bed: 206 Indications: Follow up pericardial effusion, Chest pain Other Information Study Quality: Adequate Conclusion Normal left ventricular wall thickness and chamber size. Estimated ejection fraction is 55 to 60%. Wall motion is normal Normal right ventricular size and systolic function Both atria are normal in size Aortic valve is trileaflet without stenosis or regurgitation Mild mitral annular calcification, trace to mild mitral regurgitation Normal pulmonic valve with trace regurgitation Normal tricuspid valve with trace regurgitation Very small circumferential pericardial effusion Wall motion Left Ventricle The left ventricle is normal size. The left ventricular systolic function is normal. The left ventric ular ejection fraction is within the normal range. There is normal left ventricular wall thickness. T here is normal LV segmental wall motion. There is no ventricular septal defect visualized. LVEF is 55 -60%. Right Ventricle The right ventricle is normal size. The right ventricular systolic function is normal. The RVSP is 31 .9_ mmHg. Atria The left atrium size is normal. The right atrium size is normal. The interatrial septum is intact wit h no evidence for an atrial septal defect. Aortic Valve The aortic valve is normal in structure. Aortic valve is trileaflet. There is no aortic valvular sten osis. No aortic regurgitation is present. Mitral Valve Mild mitral annular calcification. No evidence of mitral valve stenosis. Trace to mild mitral regurgi tation. Tricuspid Valve The tricuspid valve is normal in structure. There is no tricuspid valve stenosis. Trace tricuspid reg urgitation. Pulmonic Valve The pulmonary valve is normal in structure. There is no pulmonic valvular stenosis. There is no pulmo marti valvular regurgitation. Great Vessels The aortic root is normal in size. The ascending aorta is normal in size. IVC is normal in size and c ollapses >50% with inspiration. Pericardium Mild circumferential pericardial effusion. 2D Dimensions IVSD d PLAX 0.98 cm F: 0.6-1.0 LV Vol A2C d MOD 158.0 mL LVPW d PLAX 0.95 cm F: 0.6 - 1.0 LV Vol A4C d MOD 137.3 mL LVID d PLAX 5.36 cm F: 3.8 - 5.2 LA vol/ BSA A2C s A-L 29.4 mL/m2 LVDs 3.80 cm F: 2.2 - 3.5 LA vol/ BSA A4C s A-L 37.2 mL/m2 Ao Root d 2.90 cm F: 2.7 - 3.3 LA Vol/ BSA Biplane s A-L 35.5 mL/m2 RA Area A4C 16.82 cm2 LA Area A4C s MOD 22.57 cm2 RA Vol/ BSA A4C s A-L 24.6 mL/m2 LA Area A2C s MOD 18.73 cm2 Ao Asc Diam d 3.19 cm F: 2.3 - 3.1 LV EF A4C MOD 55.1 % LV EF Teichholz 54.2 % LV EF A2C MOD 50.2 % LVEF (Zabala's) 51.02 % F: 54 - 74 LV EF Biplane MOD 51.0 % LV Volume 113.54 mL F: 46 - 106 SV 77.32 mL LV Volume Index 56.77 mL/m2 F: 29 - 61 SV Index 38.54 mL/m2 LV Vol Biplane MOD 151.5 mL FS 28.30 % M-Mode TAPSE 2.43 cm (M/F) >1.7 LV Diastology MV E' medial 0.062 (>0.07 m/s) E/A Ratio 0.9 LV E/e MED 15.85 (<14) MV E Vmax 0.99 (0.4-1.3 m/s) MV E' lateral 0.071 (>0.1 m/s) MV A Vmax 1.15 (0.4-1.3 m/s) LV E/e LAT 13.95 (<14) MV E/A Ratio 0.85 MV E/E' medial 15.90 MV E/E' lateral 13.98 Aortic Valve LVOT Area 3.11 cm2 AoV Area Vmax 2.84 cm2 LVOT Vmax 1.19 m/s AoV Area/ BSA (Vmax) 1.42 cm2/m2 LVOT Mean Yemi. 0.90 m/s JF Mean Yemi. 3.04 cm2 LVOT Peak Grad 5.6 mmHg JF Mean Yemi. Index 1.51 cm2/m2 LVOT Mean Grad 3.5 mmHg LVOT VTI 0.254 m LVOT Diam s 1.95 cm AoV Vmax 1.30 m/s Velocity Ratio 0.91 AoV Mean Yemi. 0.92 m/s AoV Peak Grad 6.8 mmHg LVOT SV 79.14 mL AoV Mean Grad 3.8 mmHg AoV VTI 0.276 m AoV Area VTI 2.87 cm2 AoV Area/ BSA (VTI) 1.43 cm/m2 Mitral Valve MV DT 135 (160-240 msec) MV PHT 39 msec MV Area PHT 5.60 cm2 MV VTI 0.251 m MV Area VTI 3.15 (4.0-6.0 cm2) Pulmonary Valve PV Vmax 1.28 (0.5-1.5 m/s) RVOT Peak Gr. 3.03 mmHg PV Peak Grad 6.5 mmHg RVOT Mean Gr. 1.65 mmHg PV Mean Grad 3.7 mmHg RVOT VTI 0.174 m PV VTI 0.268 m RVOT Vmax 0.87 m/s Tricuspid Valve TR Peak Grad 28.9 mmHg TR Vmax 2.69 m/s RA Pressure 3.00 mmHg RVSP (TR) 31.9 mmHg
[2021-05-20 08:14] LABS: Abs Immature Grans 0.74 10^3/uL (0.0-0.06); HCT 26.2 % (36.0-46.0); HGB 8.4 g/dL (11.2-15.7); MCH 29.5 pg (27.0-33.0); MCHC 32.1 % (32.0-36.0); MCV 91.9 fL (80-95); MPV 11.5 fL (8.0-11.0); RBC 2.85 10^6/uL (3.93-5.22); RDW 14.5 % (11.7-14.6); RDW-SD 48.9 fL; WBC 8.78 10^3/uL (4.4-10.8)
[2021-05-20] MEDS: Senna TAB PO (08:32)
[2021-05-20] MEDS: Cholecalciferol (Vitamin D3) 1,000 UNIT TAB 1000 UNITS PO (08:32)
[2021-05-20 08:33] LABS: Anion Gap 7.9 mmol/L (3-11); BUN 31 mg/dL (7-18); CO2 27.1 mmol/L (21.0-32.0); CREATININE 1.5 mg/dL (0.55-1.02); Calcium 8.8 mg/dL (8.5-10.1); Chloride 106 mmol/L (98-107); Estimated GFR 34.64 (mL/min/1.73m2); Glucose 183 mg/dL (74-106); Magnesium 1.7 mg/dL (1.8-2.4); Potassium 4.1 mmol/L (3.5-5.1); Sodium 141 mmol/L (136-145); Troponin I < 0.05 ng/mL (<0.06)
[2021-05-20] MEDS: Normal Saline Flush 10 ML SYR IVP ×3 (08:33→21:44)
[2021-05-20] MEDS: Cyanocobalamin 500 MCG TAB PO (08:33)
[2021-05-20] MEDS: Spironolactone 25 MG TAB 12.5 MG PO (08:33)
[2021-05-20 08:38] LABS: Absolute Eosinophil Count 0.09 10^3/uL (0.0-0.7); Absolute Neutrophil Count 5.97 10^3/uL (1.2-6.7); Bands % 18
[2021-05-20 08:39] LABS: Diff Comment Manual Differential; Metamyelocytes % 2; Myelocytes % 3; Polychromasia Present
[2021-05-20 08:40] LABS: Other Cells % 2; Platelet Count 34 10^3/uL (130-400)
[2021-05-20] MEDS: Pantoprazole 40 MG VIAL IVP ×2 (10:03→21:44)
[2021-05-20] MEDS: Magnesium Oxide 400 MG TAB PO (10:03)
--- NOTE | 2021-05-20 10:21 | INITIAL_ITS ---
- If Service Date Differs Date of service: 05/20/21 Time of Service: 10:21 Care Management Initial Assess REASON FOR HOSPITALIZATION:: Chest discomfort PAST MEDICAL HISTORY/PAST SURGICAL HISTORY:: Medical History. Anxiety. Depression. Diabetes. Diastolic heart failure. Gastritis and duodenitis. GERD (gastroesophageal reflux disease). History of colon polyps. Hyperlipidemia. Hypertension. Obesity. Osteoarthritis. Superficial thrombophlebitis of right upper extremity. Urothelial carcinoma. Surgical History. Abdominal hysterectomy (~11/2010). for fibroid. Bilateral salpingectomy with oophorectomy. Biopsy of breast. cyst excised-left. section. Colonoscopy - MAC (01/10/17). EGD - MAC (01/10/17). Extraction of cataract (11/10/16). LEFT EYE; DR. MORRIS. Hemorrhoidectomy. and anal fissure repair. Hernia Repair, Incisional. OOPHRECTOMY, UNILATERAL (~1991). , Ectopic (~1991) PREVIOUS FUNCTIONAL STATUS/SOCIAL/FAMILY SUPPORTS:: Nancy lives with her Derek in [facility] in [place]. They have a cat and a dog at home, and a daughter who lives nearby with twin grand daughters. 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 She is usually independent. CURRENT FUNCTIONAL STATUS:: Nancy was sitting up in bed when CM met with her. She stated that she was doing better than earlier today. Per report, she had considered leaving AMA, due to [facility] not having the medication she requested which she takes at home. She was offered to have someone bring the medication to her. Nancy was eating her lunch shortly after CM arrived, and dismissed . CM will continue to follow. ADVANCE DIRECTIVES:: None on file. will offer forms. Palliative care de clined. Has patient been provided with info about the portal/API?: Yes Did the patient sign up for the portal?: No CODE STATUS:: Full Code INSURANCE COVERAGE / FINANCIAL ISSUES:: [employer] CURRENT HOME/COMMUNITY SERVICES/EQUIPMENT:: Nancy currently has HH RN, OT. She feels that she would benefit from additional support. PRIMARY CARE PHYSICIAN:: Alberto Bhatia POTENTIAL DISCHARGE NEEDS:: Follow up appointments, resumption of HH services. PATIENT/FAMILY EDUCATION NEEDS:: Review discharge instructions regarding activity levels and medications, discussion of self care needs and goals of care. ANTICIPATED BARRIERS TO DISCHARGE:: None identified. TRANSPORTATION:: Via private vehicle by her . PLAN:: Anticipate Nancy will return home when medically cleared with a resumption of HH services through [facility]. Her will drive her home via private vehicle. She will follow up with her PCP and discharge plan of care. CM will continue to follow.
[2021-05-20] MEDS: Insulin Glargine 300 UNITS/3 ML PEN 46 UNITS SC (10:35)
--- NOTE | 2021-05-20 10:38 | NUR.NOTE ---
Insulin glargine 46 units given around 1030am as patient refused morning insulin novolog and pharmacy did put in Lantus per Dr. Hernandez's request and backtimed it to 830am. Nursing Note:
--- NOTE | 2021-05-20 11:11 | W.PM.PROGNOT ---
Date of Service Date of service: 05/20/21 Time of Service: 11:12 Assessment and Plan Assessment and plan (1) Chest pain: Status: Acute Assessment and plan: Multiple types of chest discomfort described. 1) The typical chest pain with radiation to the jaw and shoulder in conjunction with borderline elevated troponins: likely demand ischemia from anemia and CHF in acute exacerbation. No ACS. Will continue to monitor on tele with serial troponins. EKG today: ST, HR 99, nonspecific ST-T changes, no acute ischemia. ST-T changes are unchanged from prior. S/p 1 unit pRBCs. When kidneys permit, would resume lasix. 2) The burning type of pain likely represents esophagitis/GERD associated with chemo. These sx have resolved with IV PPI, carafate, mylanta, viscous lidocaine prn. Continue PPI, carafate, GI cocktail prn. 3) The burning discomfort on inspiration is harder to explain, could be due to CHF sx, but could be a side effect of chemotherapy. These sx are not being described today. PE ruled out. No further workup at this time.. (2) Elevated troponin: Status: Acute Assessment and plan: As above (3) Acute anemia: Status: Acute Assessment and plan: As above. Acute on chronic anemia in setting of chemotherapy. No evidence of acute bleeding. Heme negative in the ED. S/p 1 unit pRBCs yesterday. H/H improved as expected. Folate is borderline low. Will replete. (4) Acute on chronic diastolic CHF (congestive heart failure), NYHA class 1: Status: Acute Assessment and plan: The patient is now aware of the diagnosis. Holding lasix today due to worsening Cr post IV contrast administration yesterday. Did receive aldactone at low dose. Will recheck Cr in am and, if better, start lasix at that time. I did encourage the patient to elevate her legs and wear TEDs. The patient is not symptomatic of CHF other than edema at this time Monitor I/O's, daily weights. Low sodium diet. Repeat echo is pending. I do not have any evidence that this is related to her pericardial effusion at this time. (5) Pericardial effusion: Status: Acute Assessment and plan: Repeat echo pending. Size unchanged by CT. No evidence of tamponade clinically or on EKG. (6) Urothelial carcinoma: Status: Acute Assessment and plan: on Chemo with carboplatin/gemcitabine. Bloodwork abnormalities are likely due to above. Patient followed at [facility] oncology (Dr Gonsalez). Expecting nephrectomy at [facility] in May. I expect the patient will be able to keep that appointment. F/u as outpatient. (7) Peripheral neuropathy: Status: Acute Assessment and plan: Continue vitamins B12 and B6. (8) Thrombocytopenia: Status: Acute Assessment and plan: Due to chemotherapy. Will hold eliquis for fear of bleeding. Monitor Plt count. (9) Superficial thrombophlebitis of right upper extremity: Status: Acute Assessment and plan: As above - hold eliquis (10) IDDM (insulin dependent diabetes mellitus): Status: Chronic Assessment and plan: Continue home basal bolus regimen. (11) Discharge planning issues: Status: Acute Assessment and plan: Full code (12) DVT prophylaxis: Status: Acute Assessment and plan: TEDs. Chemical DVT ppx (and therapeutic eliquis) are on hold due to thrombocytopenia Subjective Subjective Interval history since last seen: Ms Pichardo is frustrated and upset this morning, she states. She did not sleep well last night. She is upset by several interactions this morning. She states that she was never told she had diastolic heart failure until now and that now everything makes sense. She denies dizziness, endorses chest pain/abdominal pain as well as lower back pain while having a bowel movement but not now. She admits that stress brings out chest pain and endorsed this while I was in the room with her. This got better with taking deep breaths and calming down. The patient denies shortness of breath. Burning in the chest/GI component of chest discomfort has resolved. Denies n/v. We talked about which insulins were on our formulary (we do not have tresiba or lispro; I explained that we would transition her to lantus and novolog while she is here; we proved to her that she has had this insulin before and tolerated it without reaction). We discussed why her lantus and losartan were held this morning (that her kidney function was worse). She shares she was seen by a clinic in [place] where she was diagnosed with bipolar disorder and anxiety. She admits to feeling anxious. She will see how she feels after she has her morning coffee and will consider trying one dose of ativan to see if she will calm down. Exam Narrative Exam Narrative: General: Anxious middle-aged female who is escalated, but able to calm down after her questions were answers, does not appear short of breath. A&Ox3 HEENT: EOMI, MMM Cardiovascular: RRR, no m/r/g, tachycardic when I listen to her this morning Lungs: CTAB Gastrointestinal: soft, minimally diffusely tender, nondistended Extremities: 1+ edema at B feet, 1+ up to the knee, improved since yesterday, no clubbing/cyanosis Objective Last Vital Signs Temp 36.5 C 05/20/21 09:10 Pulse 90 05/20/21 09:10 Resp 20 05/20/21 09:10 BP 178/82 H 05/20/21 09:10 Pulse Ox 97 05/20/21 09:10 Laboratory Results - last 24 hr 05/19/21 05/19/21 05/19/21 11:29 11:29 11:29 WBC 9.58 RBC 2.47 L Hgb 7.4 L Hct 23.2 L MCV 93.9 MCH 30.0 MCHC 31.9 L RDW 14.6 Plt Count 33 L D MPV 12.3 H Immature Gran % See Differential Neutrophils % 58.0 Band Neutrophils % 14 Lymphocytes % 15.0 Monocytes % 10.0 Eosinophils % 0.0 Basophils % 0.0 Metamyelocytes % 1 Myelocytes % 1 Other Cells % 1 Nucleated RBC % 0 Absolute Neutrophils 6.90 H Absolute Lymphocytes 1.44 Absolute Monocytes 0.96 H Absolute Eosinophils 0.00 Absolute Basophils 0.00 RBC Morphology See Below Polychromasia Present Sodium 143 Potassium 4.1 Chloride 108 H Carbon Dioxide 25.7 Anion Gap 9.3 BUN 36 H Creatinine 1.2 H Estimated GFR/1.73 m2 44.81 Glucose 75 Calcium 9.3 Magnesium 1.7 L Iron TIBC Transferrin % Sat Ferritin 266 H Total Bilirubin 0.2 AST 31 ALT 47 Alkaline Phosphatase 126 H Troponin I 0.06 NT-Pro-B Natriuret Pep 2165 H Total Protein 7.4 Albumin 3.1 L Vitamin B12 > 2000 H Folate 8.2 L Urine Color Urine Clarity Urine pH Ur Specific [place] Urine Protein Urine Ketones Urine Blood Urine Nitrite Urine Bilirubin Urine Urobilinogen Ur Leukocyte Esterase Urine RBC Urine WBC Ur Epithelial Cells Urine Crystals Urine Bacteria Urine Casts Urine Mucus Urine Other Ur Culture Indicated? Urine Glucose COVID-19 Source SARS-CoV-2 (PCR) Path Cons Comment SEE COMMENT Patient ABO/Rh Antibody Screen Crossmatch 05/19/21 05/19/21 05/19/21 11:29 11:42 14:40 WBC RBC Hgb Hct MCV MCH MCHC RDW Plt Count MPV Immature Gran % Neutrophils % Band Neutrophils % Lymphocytes % Monocytes % Eosinophils % Basophils % Metamyelocytes % Myelocytes % Other Cells % Nucleated RBC % Absolute Neutrophils Absolute Lymphocytes Absolute Monocytes Absolute Eosinophils Absolute Basophils RBC Morphology Polychromasia Sodium Potassium Chloride Carbon Dioxide Anion Gap BUN Creatinine Estimated GFR/1.73 m2 Glucose Calcium Magnesium Iron 106 TIBC 325 Transferrin % Sat 33 Ferritin Total Bilirubin AST ALT Alkaline Phosphatase Troponin I 0.07 H NT-Pro-B Natriuret Pep Total Protein Albumin Vitamin B12 Folate Urine Color Yellow Urine Clarity Clear Urine pH 5.5 Ur Specific [place]den 1.010 Urine Protein 30 H Urine Ketones Negative Urine Blood Moderate H Urine Nitrite Negative Urine Bilirubin Negative Urine Urobilinogen 0.2 Ur Leukocyte Esterase Negative Urine RBC 10-20 H Urine WBC 3-5 Ur Epithelial Cells Rare Urine Crystals Negative Urine Bacteria Rare Urine Casts Negative Urine Mucus Negative Urine Other Negative Ur Culture Indicated? No Urine Glucose Negative COVID-19 Source SARS-CoV-2 (PCR) Path Cons Comment Patient ABO/Rh Antibody Screen Crossmatch 05/19/21 05/19/21 05/19/21 16:30 19:23 22:50 WBC RBC Hgb Hct MCV MCH MCHC RDW Plt Count MPV Immature Gran % Neutrophils % Band Neutrophils % Lymphocytes % Monocytes % Eosinophils % Basophils % Metamyelocytes % Myelocytes % Other Cells % Nucleated RBC % Absolute Neutrophils Absolute Lymphocytes Absolute Monocytes Absolute Eosinophils Absolute Basophils RBC Morphology Polychromasia Sodium Potassium Chloride Carbon Dioxide Anion Gap BUN Creatinine Estimated GFR/1.73 m2 Glucose Calcium Magnesium Iron TIBC Transferrin % Sat Ferritin Total Bilirubin AST ALT Alkaline Phosphatase Troponin I 0.06 NT-Pro-B Natriuret Pep Total Protein Albumin Vitamin B12 Folate Urine Color Urine Clarity Urine pH Ur Specific [place] Urine Protein Urine Ketones Urine Blood Urine Nitrite Urine Bilirubin Urine Urobilinogen Ur Leukocyte Esterase Urine RBC Urine WBC Ur Epithelial Cells Urine Crystals Urine Bacteria Urine Casts Urine Mucus Urine Other Ur Culture Indicated? Urine Glucose COVID-19 Source Nasal/Nares SARS-CoV-2 (PCR) Negative Path Cons Comment Patient ABO/Rh A Negative Antibody Screen NEGATIVE Crossmatch See Detail 05/20/21 05/20/21 07:40 07:40 WBC 8.78 RBC 2.85 L Hgb 8.4 L Hct 26.2 L MCV 91.9 MCH 29.5 MCHC 32.1 RDW 14.5 Plt Count 34 L MPV 11.5 H Immature Gran % See Differential Neutrophils % 50.0 Band Neutrophils % 18 Lymphocytes % 16.0 Monocytes % 8.0 Eosinophils % 1.0 Basophils % 0.0 Metamyelocytes % 2 Myelocytes % 3 Other Cells % 2 Nucleated RBC % Absolute Neutrophils 5.97 Absolute Lymphocytes 1.40 Absolute Monocytes 0.70 Absolute Eosinophils 0.09 Absolute Basophils 0.00 RBC Morphology See Below Polychromasia Present Sodium 141 Potassium 4.1 Chloride 106 Carbon Dioxide 27.1 Anion Gap 7.9 BUN 31 H Creatinine 1.5 H Estimated GFR/1.73 m2 34.64 Glucose 183 H D Calcium 8.8 Magnesium 1.7 L Iron TIBC Transferrin % Sat Ferritin Total Bilirubin AST ALT Alkaline Phosphatase Troponin I < 0.05 NT-Pro-B Natriuret Pep Total Protein Albumin Vitamin B12 Folate Urine Color Urine Clarity Urine pH Ur Specific [place] Urine Protein Urine Ketones Urine Blood Urine Nitrite Urine Bilirubin Urine Urobilinogen Ur Leukocyte Esterase Urine RBC Urine WBC Ur Epithelial Cells Urine Crystals Urine Bacteria Urine Casts Urine Mucus Urine Other Ur Culture Indicated? Urine Glucose COVID-19 Source SARS-CoV-2 (PCR) Path Cons Comment Patient ABO/Rh Antibody Screen Crossmatch
--- NOTE | 2021-05-20 14:28 | NUR.NOTE ---
Nursing Note: This morning Nancy was put on the commode and got very upset and was banging on the table and yelling for someone to help her off the commode. She was very upset over her medications and multiple things regarding her hospital stay and the doctor not coming soon enough when she needed it. surfacer made aware.
[2021-05-20] MEDS: Metoprolol 12.5 MG TAB PO (21:42)
[2021-05-20] MEDS: Senna TAB 2 TAB PO (21:43)
[2021-05-20] MEDS: Docusate Sodium 100 MG CAP PO (22:14)
[2021-05-21 03:30] VITALS: BP 137/74; PULSE 88; RESP 17; TEMP 36.3; O2SAT 94
[2021-05-21 06:20] VITALS: BP 137/74; PULSE 88; RESP 18; TEMP 36.9; O2SAT 90
[2021-05-21 07:00] VITALS: PULSE 88
[2021-05-21 07:21] LABS: HCT 28.4 % (36.0-46.0); MCH 29.5 pg (27.0-33.0); MCHC 31.7 % (32.0-36.0); MCV 93.1 fL (80-95); MPV 13.2 fL (8.0-11.0); Nucleated RBC 1 %; RBC 3.05 10^6/uL (3.93-5.22); RDW 14.6 % (11.7-14.6); RDW-SD 49.6 fL; WBC 11.51 10^3/uL (4.4-10.8)
[2021-05-21 07:24] LABS: Anion Gap 9.3 mmol/L (3-11); BUN 30 mg/dL (7-18); CO2 26.7 mmol/L (21.0-32.0); CREATININE 1.5 mg/dL (0.55-1.02); Calcium 9.3 mg/dL (8.5-10.1); Chloride 107 mmol/L (98-107); Estimated GFR 34.64 (mL/min/1.73m2); Glucose 129 mg/dL (74-106); Potassium 4.5 mmol/L (3.5-5.1); Sodium 143 mmol/L (136-145)
[2021-05-21 07:28] VITALS: BP 165/76; PULSE 97; RESP 18; TEMP 36.8; O2SAT 95
[2021-05-21 08:09] LABS: Platelet Count 54 10^3/uL (130-400)
[2021-05-21 08:10] LABS: Absolute Lymphocyte Count 2.99 10^3/uL (1.2-3.4); Absolute Monocyte Count 0.35 10^3/uL (0.1-0.8); Absolute Neutrophil Count 7.83 10^3/uL (1.2-6.7); Atypical Lymphocytes % 11; Bands % 7
[2021-05-21 08:11] LABS: Diff Comment Manual Differential; Macrocytosis 1+; Metamyelocytes % 2; Myelocytes % 1; Polychromasia Present
[2021-05-21] MEDS: Pantoprazole 40 MG VIAL IVP (08:50)
[2021-05-21] MEDS: Normal Saline Flush 10 ML SYR IVP ×2 (08:50→10:11)
[2021-05-21] MEDS: Folic Acid 1 MG TAB PO (08:51)
[2021-05-21] MEDS: Senna TAB 2 TAB PO (08:51)
[2021-05-21] MEDS: Cyanocobalamin 500 MCG TAB PO (08:51)
[2021-05-21] MEDS: Magnesium Oxide 400 MG TAB PO (08:51)
[2021-05-21] MEDS: Cholecalciferol (Vitamin D3) 1,000 UNIT TAB 1000 UNITS PO (08:52)
[2021-05-21] MEDS: Metoprolol 12.5 MG TAB PO (08:52)
[2021-05-21] MEDS: Spironolactone 25 MG TAB 12.5 MG PO (08:52)
[2021-05-21] MEDS: Sucralfate 1 GM TAB PO ×2 (08:52→11:48)
[2021-05-21] MEDS: Insulin Degludec [Tresiba Flextouch U-100] SC (08:53)
--- NOTE | 2021-05-21 10:09 | CMPROGNOTE_ITS ---
- If Service Date Differs Date of service: 05/21/21 Time of Service: 10:09 Care Management Progress Note S/O: PT DISCHARGED, SEE DISCHARGE NOTE. A: Nancy is a 66 year old female admitted to [facility] on 05/19/21 with chest discomfort. P: Anticipate Nancy will return home when medically cleared with a resumption of HH services through [facility]. Her will drive her home via private vehicle. She will follow up with her PCP and discharge plan of care. CM will continue to follow.
[2021-05-21] MEDS: Furosemide 20 MG/2 ML VIAL 10 MG IVP (10:10)
[2021-05-21 11:30] VITALS: BP 147/81; PULSE 82; RESP 18; TEMP 36.8; O2SAT 95
--- NOTE | 2021-05-21 11:57 | NUR.NOTE ---
Nursing Note: At 1140 on 05/21/21, this RN entered the pt.'s room to administer pt.'s own insulin humalog to the pt. per protocol per MD order. Pt. asked the RN if the RN had had the opportunity to speak with pharmacy regarding whether or not the pt.'s own insulin (humalog and tresiba) were being refridgerated or not. RN informed the pt. that they had spoken with pharmacy, and per pharmacy per hospital and medication specific protocols, because the insulin is in pens and not vials, the insulin doesn't need to be refridgerated, especially since the pens have been accessed with insulin administration needles. Pt. upset by this answer, stating, That's not appropriate. They both need to be refridgerated. I know this because I've called the company about this before. The company sends the insulin pens to me on ice and I keep them refridgerated. It also says right on the boxes not to leave the insulin pens out for more than 15 minutes. This isn't safe. I'm not sure why they think it is. Pt. requesting to speak with the pharmacist directly. RN informed the pt. that they would pass along the message to the pharmacist that the pt. would like to speak with them, but also informed the pt. that the pharmacist might not be available to speak with them. Pt. states, Well, then, I'm going to report them. RN asked the pt. if she was still willing to take the insulin humalog and pt. stated that she was. At 1148 on 05/21/21, this RN administered 2 units of insulin humalog to the pt. per protocol per MD order. At 1150 on 05/21/21, this RN called pharmacy and spoke with the pharmacist regarding the pt.'s conversation with the RN and their request to speak with the pharmacist. Pharmacist unavailable to speak with the pt., but states that they will try to find some of the hard research literature regarding this refridgeration issue and will fax it up to Med/Surg for the RN to provide to the pt. RN will reassess as necessary.
--- NOTE | 2021-05-21 12:49 | W.PM.DS.N ---
Date of service: 05/21/21 Time of Service: 12:50 DS: Diagnosis Discharge Diagnosis (1) Chest pain: Status: Acute Asessment and Plan: Multifactorial, predominantly due to esophagitis; symptomatic anemia possibly also a cause of chest discomfort. (2) Acute on chronic diastolic CHF (congestive heart failure), NYHA class 1: Status: Chronic (3) Elevated troponin: Status: Acute Asessment and Plan: mildly elevated troponins in setting of demand ischemia in acute on chronic diastolic CHF and acute on chronic anemia (4) Acute on chronic anemia: Status: Acute Asessment and Plan: s/p xfusion of 1 unit of pRBCs on this admission. (5) Acute kidney injury superimposed on chronic kidney disease: Status: Acute (6) Pericardial effusion: Status: Acute Asessment and Plan: very small per echo on this admission (7) Urothelial carcinoma: Status: Acute (8) Thrombocytopenia: Status: Acute Asessment and Plan: Improved (9) Superficial thrombophlebitis of right upper extremity: Status: Acute Asessment and Plan: eliquis is being resumed on discharge now that plts are greater than 50. (10) IDDM (insulin dependent diabetes mellitus): Status: Chronic (11) Reflux esophagitis: Status: Acute (12) Constipation: Status: Acute (13) Anxiety: Status: Chronic (14) Hypertension: Status: Chronic (15) Peripheral neuropathy: Status: Chronic (16) COVID-19 ruled out by laboratory testing: Status: Ruled-out Discharge Plan Disposition Patient Disposition: HOME W/HOME HEALTH SERVICE Condition: Improving Discharge Details Reason For Visit: CHEST DISCOMFORT Admit Date/Time: 05/19/21 15:55 Admit Provider: Radha Hernandez Attending Provider: Radha Hernandez Primary Care Provider: Unknown,Unknown Hospital Course Hospital Course: Ms Pichardo is a 66 year old female with PMHx of urothelial carcinoma on chemotherapy with gemcitabine and carboplatinum Home Meds and New Rx's Prescriptions: No Action furosemide 20 mg tablet 20 mg PO BID Qty: 90 RF: 4 cholecalciferol (vitamin D3) 1,000 UNIT capsule 1,000 iu PO DAILY Qty: 100 RF: 4 nystatin-triamcinolone 15 GM cream 1 applic Topical BID PRN PRNQty: 12 RF: 3 (DME) OneTouch Ultra Test 1 EACH strip 1 ea Miscellaneous ac and hs Qty: 400 RF: 4 losartan 100 MG tablet 100 mg PO DAILY Qty: 90 RF: 4 spironolactone 25 mg tablet 12.5 mg PO DAILY RF: 0 prochlorperazine maleate 10 mg tablet 10 mg PO Q6H PRNRF: 0 sennosides [senna] 8.6 mg tablet 17.2 mg PO BID RF: 0 omeprazole 20 mg Capsule,Delayed Release(Dr/Ec) 20 mg PO HS PRNRF: 0 Fleet Enema 19-7 gram/118 mL Enema 118 ml CO ONCE PRNRF: 0 pyridoxine (vitamin B6) [Vitamin B-6] 25 mg Tablet 100 mg PO DAILY Qty: 30 RF: 0 cyanocobalamin (vitamin B-12) [Vitamin B-12] 500 mcg Tablet 500 mcg PO DAILY Qty: 30 RF: 0 Tresiba FlexTouch U-100 100 UNIT/1 ML insulin pen 58 unit SQ QAM RF: 0 Eliquis 2.5 mg tablet 2.5 mg PO BID RF: 0 insulin lispro [Humalog KwikPen Insulin] 100 unit/mL insulin pen 0 - 6 unit SUBCUT PRN PRNRF: 0 Discharge Instructions Care Plan Goals: Resumption of home health services Stand Alone Forms: Nursing Discharge Form DS: Data Vitals/I&O Vitals and I&O: Vital Signs Temperature 36.8 C 05/21/21 11:30 Temperature Source Tympanic 05/21/21 11:30 Pulse 82 05/21/21 11:30 Pulse Rhythm Regular 05/21/21 08:50 Pulse 92 H 05/19/21 16:50 Respiratory Rate 18 05/21/21 11:30 Respiratory Effort Non-Labored 05/21/21 08:50 Respiratory Depth Normal 05/21/21 08:50 Respiratory Pattern Normal 05/21/21 08:50 Blood Pressure 147/81 H 05/21/21 11:30 Blood Pressure Mean 64 05/19/21 16:32 Blood Pressure Position Sitting 05/19/21 10:48 Pulse Oximetry 95 05/21/21 11:30 Oxygen Delivery Method Room Air 05/21/21 11:30 Oxygen Flow Rate 0 05/21/21 11:30 Pain Level 5 05/21/21 11:47 Comment 05/21/21 08:50 Intake & Output 05/20/21 05/21/21 05/21/21 23:59 11:59 23:59 Intake Total 700 / 1940 820 / 820 Output Total 1400 / 2450 2200 / 2200 Balance -700 / -510 -1380 / -1380 Weight 96.3 kg Intake: IV 40 / 40 Oral 690 / 1930 780 / 780 Output: Urine 1400 / 2450 2200 / 2200 Other: Urine Color Yellow Pale Yellow Urine Appearance Clear Clear Urine Odor Normal Normal Comment pT put toilet so a measurement could not be made Void x1 in the toilet. Stool Occult Blood Negative Negative Stool Size Small Small Stool Characteristics Formed Soft Brown Liquid Black Mucoid Brown Voiding Methods Toilet Toilet Data Completed and Pending Labs on day of discharge: Labs from last 24 hours 05/21/21 05/21/21 06:53 06:53 WBC 11.51 H D RBC 3.05 L Hgb 9.0 L Hct 28.4 L MCV 93.1 MCH 29.5 MCHC 31.7 L RDW 14.6 Plt Count 54 L D MPV 13.2 H Immature Gran % See Differential Neutrophils % 61.0 Band Neutrophils % 7 Lymphocytes % 15.0 Atypical Lymphs % 11 Monocytes % 3.0 Eosinophils % 0.0 Basophils % 0.0 Metamyelocytes % 2 Myelocytes % 1 Nucleated RBC % 1 Absolute Neutrophils 7.83 H Absolute Lymphocytes 2.99 Absolute Monocytes 0.35 Absolute Eosinophils 0.00 Absolute Basophils 0.00 RBC Morphology See Below Polychromasia Present Macrocytosis 1+ Sodium 143 Potassium 4.5 Chloride 107 Carbon Dioxide 26.7 Anion Gap 9.3 BUN 30 H Creatinine 1.5 H Estimated GFR/1.73 m2 34.64 Glucose 129 H Calcium 9.3 Magnesium 2.0 PFSH Medical History (Updated 05/21/21 @ 12:57 by Radha Hernandez MD) Anxiety Depression Diabetes Diastolic heart failure Gastritis and duodenitis GERD (gastroesophageal reflux disease) History of colon polyps Hyperlipidemia Hypertension Obesity Osteoarthritis Superficial thrombophlebitis of right upper extremity Urothelial carcinoma Surgical History Abdominal hysterectomy (~11/2010) for fibroid Bilateral salpingectomy with oophorectomy Biopsy of breast cyst excised-left section Colonoscopy - MAC (01/10/17) EGD - MAC (01/10/17) Extraction of cataract (11/10/16) LEFT EYE; DR. MORRIS Hemorrhoidectomy and anal fissure repair Hernia Repair, Incisional OOPHRECTOMY, UNILATERAL (~1991) , Ectopic (~1991) Family History Mother Personal history of malignant neoplasm UTERINE Father Personal history of malignant neoplasm COLON Brother Heart disease Brother No problems noted. Brother No problems noted. Grandfather Personal history of malignant neoplasm Grandfather No problems noted. Grandmother Personal history of malignant neoplasm Stroke Grandmother Diabetes Personal history of malignant neoplasm Social History Smoking/Tobacco Use Status: Former Tobacco Use Smoking risk assessment performed?: Yes Alcohol Intake: never Drug use: Never Substance use type: does not use Details: vapor use Do you feel safe at home: Yes Do you feel safe in your relationship?: Yes
[2021-05-21 12:57] VITALS: PULSE 93
--- NOTE | 2021-05-21 13:27 | DSE_ITS ---
Date of service: 05/21/21 Time of Service: 13:28 DS: Diagnosis Discharge Diagnosis (1) Chest pain: Status: Acute (2) Acute on chronic diastolic CHF (congestive heart failure), NYHA class 1: Status: Chronic (3) Elevated troponin: Status: Acute (4) Acute on chronic anemia: Status: Acute (5) Acute kidney injury superimposed on chronic kidney disease: Status: Acute (6) Pericardial effusion: Status: Acute (7) Urothelial carcinoma: Status: Acute (8) Thrombocytopenia: Status: Acute (9) Superficial thrombophlebitis of right upper extremity: Status: Acute (10) IDDM (insulin dependent diabetes mellitus): Status: Chronic (11) Reflux esophagitis: Status: Acute (12) Constipation: Status: Acute (13) Anxiety: Status: Chronic (14) Hypertension: Status: Chronic (15) Peripheral neuropathy: Status: Chronic (16) Folate deficiency: Status: Acute (17) COVID-19 ruled out by laboratory testing: Status: Ruled-out (18) Mental health disorder: Status: Chronic Discharge Plan Disposition Patient Disposition: HOME W/HOME HEALTH SERVICE Condition: Improving Discharge Details Reason For Visit: CHEST DISCOMFORT Admit Date/Time: 05/19/21 15:55 Admit Provider: Radha Hernandez Attending Provider: Radha Hernandez Primary Care Provider: Unknown,Unknown Hospital Course Hospital Course: Ms Pichardo is a 66 year old female with PMHx of urothelial carcinoma on chemotherapy with gemcitabine and carboplatinum, as well as h/o chronic diastolic CHF, hypertension, CKD 3, RUE thrombophlebitis on eliquis, who was observed on [facility] hospitalist service from 05/19/21 until 05/21/21 after presenting with chest discomfort and leg swelling. PE was ruled out by CTA. The patient had marginally elevated troponin I (0.06 ->0.07->0.06-><0.05) in setting of acute on chronic diastolic CHF and acute on chronic anemia with Hgb of 7.4. For this, she received IV lasix in the ED and was transfused 1 unit of blood on the floor. She did not have an ACS on this admission. Her echocardiogram was repeated to reassess her chronic pericardial effusion, which was very small. There was no evidence of wall motion abnormalities, LVEF was preserved, but there was mild pulmonary hypertension c/w fluid overload. The day after admission, the patient had worsening of her Cr from 1.2 to 1.5. For this, lasix and losartan were held. BP (and HR) control were achieved with addition of metoprolol and continuation of a small dose of aldactone. The patient's creatinine remained stable at 1.5 the day after, permitting reinitiation of lasix. On discharge, her losartan remains on hold until follow up blood work on 05/24/21, at which point her PCP may choose to resume it. at a lower dose in addition to the metoprolol which is helping with the tachycardia component as well. The patient's lower extremity edema improved with addition of TEDs and elevation of her legs. She is encouraged to continue these measures and a low sodium diet at home. Her eliquis was held temporarily due to her platelet count in the 30s on presentation, likely due to chemotherapy, as was her acute on chronic anemia. Eliquis is being resumed on discharge as her platelet count is now greater than 50. As far as chest discomfort, this is primarily felt to be due to dyspepsia with a known diagnosis of GERD and irritating effect of chemotherapy. The discomfort resolved with PPI and carafate therapy, on which the patient is getting discharged home. The patient shared with me that she was diagnosed with anxiety and bipolar disorders as an outpatient some time ago. For this, she was previously prescribed lamictal, but stopped taking it 6 months ago. It does appear that there is an underlying untreated mental health disorder which certainly needs follow up. Mental health referral is strongly recommended to help manage anxiety as well as for a second opinion re diagnosis of bipolar disorder. Psychiatry consult was not available on inpatient basis at our facility at the time of the patient's hospitalization. She is deemed safe for discharge home from mental health stand point at this time. She is medically stable for discharge home today with follow up blood work, resumption of home health services. Care for patient as well as completion of her discharge summary took 1 hour on the day of discharge. Home Meds and New Rx's Prescriptions: New sucralfate 1 gram Tablet 1 g PO AC & HS Qty: 120 RF: 0 folic acid 1 mg Tablet 1 mg PO DAILY Qty: 30 RF: 0 pantoprazole [Protonix] 40 mg tablet,delayed release (DR/EC) 40 mg PO DAILY Qty: 30 RF: 0 metoprolol tartrate 25 mg Tablet 12.5 mg PO BID Qty: 60 RF: 0 Continued cholecalciferol (vitamin D3) 1,000 UNIT capsule 1,000 iu PO DAILY Qty: 100 RF: 4 nystatin-triamcinolone 15 GM cream 1 applic Topical BID PRN PRNQty: 12 RF: 3 (DME) OneTouch Ultra Test 1 EACH strip 1 ea Miscellaneous ac and hs Qty: 400 RF: 4 spironolactone 25 mg tablet 12.5 mg PO DAILY RF: 0 sennosides [senna] 8.6 mg tablet 17.2 mg PO BID RF: 0 Fleet Enema 19-7 gram/118 mL Enema 118 ml OR ONCE PRNRF: 0 pyridoxine (vitamin B6) [Vitamin B-6] 25 mg Tablet 100 mg PO DAILY Qty: 30 RF: 0 cyanocobalamin (vitamin B-12) [Vitamin B-12] 500 mcg Tablet 500 mcg PO DAILY Qty: 30 RF: 0 Tresiba FlexTouch U-100 100 UNIT/1 ML insulin pen 58 unit SQ QAM RF: 0 Eliquis 2.5 mg tablet 2.5 mg PO BID RF: 0 insulin lispro [Humalog KwikPen Insulin] 100 unit/mL insulin pen 0 - 6 unit SUBCUT PRN PRNRF: 0 Changed furosemide 20 mg tablet 20 mg PO DAILY Qty: 10 RF: 0 Discontinued losartan 100 MG tablet 100 mg PO DAILY Qty: 90 RF: 4 omeprazole 20 mg Capsule,Delayed Release(Dr/Ec) 20 mg PO HS PRNRF: 0 No Action prochlorperazine maleate 10 mg tablet 10 mg PO Q6H PRNRF: 0 Discharge Instructions Instructions: Sucralfate (By mouth), Pantoprazole (By mouth), Heart Failure (DC), Diet for Stomach Ulcers and Gastritis (ED), Chronic Hypertension (DC), Esophagitis (DC) Additional Instructions: Weigh yourself every day at the same time wearing the same amount of clothes and record your weight. Contact your PCP if you have gained >3lbs in 3 days for lasix dose to be increased. Return to the hospital with any fever, bleeding, chest pain, shortness of breath. Wear TEDs, elevate your legs, and follow a low sodium diet. Follow up with your PCP and with oncology in 1-2 weeks. Care Plan Goals: Resumption of home health services Stand Alone Forms: Nursing Discharge Form Referrals: Derek Torres [ NON-[facility] STAFF PHYSICIAN] - 05/26/21 3:45 pm Alberto Bhatia [ NON-[facility] STAFF PHYSICIAN] - 06/08/21 9:30 am Activity:: Activity as Tolerated Equipment/Supplies:: No Equipment Needed Diet:: carb consistent low sodium Discharge Orders Discharge Orders: Discharge Order (Routine); Ordered 05/21/21 Ordered By: Radha Hernandez Other Ambulatory Orders: Basic Metabolic Panel (Routine) Timeframe: 20210524 Facility: [facility] - Location: Laboratory Outpatient Ordered By: Radha Hernandez Complete Blood Count w/Diff (Routine) Timeframe: 20210524 Facility: [facility] - Location: Laboratory Outpatient Ordered By: Radha Hernandez DS: Summary Time Spent with Patient providing and/or coordinating discharge services: Greater than 30 minutes Status at Discharge Functional status at discharge: uses cane/walker Overall status at discharge: patient is back to baseline Mental Status: mental status grossly normal Speech and Movement: speech and movement normal Mood: congruent mood Affect: normal affect Exam Narrative Exam Narrative: General: Anxious middle-aged female, A&Ox3, cooperative and calmer today HEENT: EOMI, MMM Cardiovascular: RRR, no m/r/g, Lungs: CTAB Gastrointestinal: soft, minimally diffusely tender, nondistended Extremities: no edema at B feet, improved since yesterday, no clubbing/cyanosis Psych Mental Status: mental status grossly normal Speech and Movement: speech and movement normal Mood: congruent mood DS: Data Vitals/I&O Vitals and I&O: Vital Signs Temperature 36.8 C 05/21/21 11:30 Temperature Source Tympanic 05/21/21 11:30 Pulse 93 H 05/21/21 12:57 Pulse Rhythm Regular 05/21/21 08:50 Pulse 92 H 05/19/21 16:50 Respiratory Rate 18 05/21/21 11:30 Respiratory Effort Non-Labored 05/21/21 08:50 Respiratory Depth Normal 05/21/21 08:50 Respiratory Pattern Normal 05/21/21 08:50 Blood Pressure 147/81 H 05/21/21 11:30 Blood Pressure Mean 64 05/19/21 16:32 Blood Pressure Position Sitting 05/19/21 10:48 Pulse Oximetry 95 05/21/21 11:30 Oxygen Delivery Method Room Air 05/21/21 11:30 Oxygen Flow Rate 0 05/21/21 11:30 Pain Level 5 05/21/21 11:47 Comment 05/21/21 08:50 Intake & Output 05/20/21 05/21/21 05/21/21 23:59 11:59 23:59 Intake Total 700 / 1940 820 / 1420 600 / 1420 Output Total 1400 / 2450 2200 / 2200 Balance -700 / -510 -1380 / -780 600 / -780 Weight 96.3 kg Intake: IV 40 / 40 Oral 690 / 1930 780 / 1380 600 / 1380 Output: Urine 1400 / 2450 2200 / 2200 Other: Urine Color Yellow Pale Yellow Urine Appearance Clear Clear Urine Odor Normal Normal Comment pT put toilet so a measurement could not be made Void x1 in the toilet. Stool Occult Blood Negative Negative Stool Size Small Small Stool Characteristics Formed Soft Brown Liquid Black Mucoid Brown Voiding Methods Toilet Toilet Data Completed and Pending Completed studies during hospitalization [Text1]: CT chest/abdomen/pelvis w/ contrast: 1. Compared to the prior CT scans listed above the bilateral pulmonary ground-glass infiltrates have mostly resolved. There is some persistent atelectasis in the right middle lobe and lingular segment left lung. No pleural effusions nor intrathoracic adenopathy 2. Mild-moderate size pericardial effusion is again noted, unchanged in size. 3. Significant atherosclerotic disease again noted in the descending thoracic aorta and abdominal aorta, without aneurysmal dilatation. Atherosclerotic disease extends into the nondilated iliac arteries. 4. Right ureteral stent in place, extending from the renal pelvis down to the urinary bladder. Hydronephrosis has mostly resolved. No solid masses in the kidneys. Small 2-3 millimeter nonobstructive calculus in the left kidney is again noted. 5. The previously present para-aortic adenopathy is mostly resolved. 6. Subcutaneous anterior fat densities now evident which are probably anticoagulant injections. No drainable abscess. 7. Uterus is again noted be surgically absent. There are no abnormal adnexal masses. CXR: Left lung lingular segment atelectasis or scarring, unchanged from 2016. No new pulmonary findings. Cardiomegaly. No pulmonary edema. Echo: Normal left ventricular wall thickness and chamber size. Estimated ejection fraction is 55 to 60%. Wall motion is normal Normal right ventricular size and systolic function Both atria are normal in size Aortic valve is trileaflet without stenosis or regurgitation Mild mitral annular calcification, trace to mild mitral regurgitation Normal pulmonic valve with trace regurgitation Normal tricuspid valve with trace regurgitation Very small circumferential pericardial effusion Labs on day of discharge: Labs from last 24 hours 05/21/21 05/21/21 06:53 06:53 WBC 11.51 H D RBC 3.05 L Hgb 9.0 L Hct 28.4 L MCV 93.1 MCH 29.5 MCHC 31.7 L RDW 14.6 Plt Count 54 L D MPV 13.2 H Immature Gran % See Differential Neutrophils % 61.0 Band Neutrophils % 7 Lymphocytes % 15.0 Atypical Lymphs % 11 Monocytes % 3.0 Eosinophils % 0.0 Basophils % 0.0 Metamyelocytes % 2 Myelocytes % 1 Nucleated RBC % 1 Absolute Neutrophils 7.83 H Absolute Lymphocytes 2.99 Absolute Monocytes 0.35 Absolute Eosinophils 0.00 Absolute Basophils 0.00 RBC Morphology See Below Polychromasia Present Macrocytosis 1+ Sodium 143 Potassium 4.5 Chloride 107 Carbon Dioxide 26.7 Anion Gap 9.3 BUN 30 H Creatinine 1.5 H Estimated GFR/1.73 m2 34.64 Glucose 129 H Calcium 9.3 Magnesium 2.0 PFSH Medical History (Updated 05/21/21 @ 14:06 by Radha Hernandez MD) Anxiety Depression Diabetes Diastolic heart failure Gastritis and duodenitis GERD (gastroesophageal reflux disease) History of colon polyps Hyperlipidemia Hypertension Mental health disorder Obesity Osteoarthritis Superficial thrombophlebitis of right upper extremity Urothelial carcinoma Surgical History Abdominal hysterectomy (~11/2010) for fibroid Bilateral salpingectomy with oophorectomy Biopsy of breast cyst excised-left section Colonoscopy - MAC (01/10/17) EGD - MAC (01/10/17) Extraction of cataract (11/10/16) LEFT EYE; DR. MORRIS Hemorrhoidectomy and anal fissure repair Hernia Repair, Incisional OOPHRECTOMY, UNILATERAL (~1991) , Ectopic (~1991) Family History Mother Personal history of malignant neoplasm UTERINE Father Personal history of malignant neoplasm COLON Brother Heart disease Brother No problems noted. Brother No problems noted. Grandfather Personal history of malignant neoplasm Grandfather No problems noted. Grandmother Personal history of malignant neoplasm Stroke Grandmother Diabetes Personal history of malignant neoplasm Social History Smoking/Tobacco Use Status: Former Tobacco Use Smoking risk assessment performed?: Yes Alcohol Intake: never Drug use: Never Substance use type: does not use Details: vapor use Do you feel safe at home: Yes Do you feel safe in your relationship?: Yes
--- NOTE | 2021-05-21 14:20 | PDOC.CMDIS ---
- If Service Date Differs Date of service: 05/21/21 Time of Service: 14:20 LACE Index Scoring Tool - Questions: Length of Stay (in days): 2 Acuity (Admit via E.D.?): Yes Comorbidities: Diabetes w/o Complication, Congestive Heart Failure, Any Tumor, Liver or Renal Disease E.D. Visits: 3 - Answers: Total Score: 13 Risk of Readmission: High Risk Care Management Discharge Reason for Hospitalization: Chest discomfort Discharge Plan: Nancy will return home today with a resumption of services, through [place]. Paperwork was faxed to [facility] to inform them of her discharge. Her will drive her home via private vehicle. She will follow up with her PCP and discharge plan of care. Patient/Family Education Needs: Review discharge instructions regarding activity levels and medications, discussion of self care needs and goals of care. Services Needed at Discharge: Home Health Care Services
== END 2021-05-21 14:44 | disposition home health service (06) ==
LOC: ER 16:35 → MS 17:00
PROVIDERS: Admitting Provider Internal Medicine; Emergency Provider Physician Assistant; Visit Provider Internal Medicine
DX: I13.0 Hypertensive heart and chronic kidney disease with heart failure and stage 1 through stage 4 chronic kidney disease, or unspecified chronic kidney disease (principal); I50.33 Acute on chronic diastolic (congestive) heart failure; I24.8 Other forms of acute ischemic heart disease; N17.9 Acute kidney failure, unspecified; Z20.822 Contact with and (suspected) exposure to COVID-19; E53.8 Deficiency of other specified B group vitamins; F41.9 Anxiety disorder, unspecified; K59.00 Constipation, unspecified; K21.00 Gastro-esophageal reflux disease with esophagitis, without bleeding; E11.22 Type 2 diabetes mellitus with diabetic chronic kidney disease; Z79.4 Long term (current) use of insulin; D69.6 Thrombocytopenia, unspecified; N18.30 Chronic kidney disease, stage 3 unspecified; I27.20 Pulmonary hypertension, unspecified; Z79.01 Long term (current) use of anticoagulants; Z79.899 Other long term (current) drug therapy; F31.9 Bipolar disorder, unspecified; D64.9 Anemia, unspecified; E11.42 Type 2 diabetes mellitus with diabetic polyneuropathy; I80.8 Phlebitis and thrombophlebitis of other sites
CPT/HCPCS: 36415; 36416; 36430; 74177; 80048; 80053; 82962; 86850; 86900; 86901; 86920; 87635; 93005; 96374; 96375; 99285; 71046; 71260; 81003; 81015; 82607; 82728; 82746; 83540; 83550; 83735; 83880; 84484; 85025; 93010; 93306; 99220; 99232; 99239; G0378; J1940; J1941; J2405; J3490; P9016

== ENCOUNTER 2021-05-24 14:12 | Outpatient (CLI) | payer BC, MEDICARE, SELFPAY ==
[2021-05-24 07:33] LABS: HCT 28.4 % (36.0-46.0); HGB 8.7 g/dL (11.2-15.7); MCH 29.7 pg (27.0-33.0); MCHC 30.6 % (32.0-36.0); MCV 96.9 fL (80-95); Nucleated RBC 0 %; Platelet Count 196 10^3/uL (130-400); RBC 2.93 10^6/uL (3.93-5.22); RDW 15.6 % (11.7-14.6); WBC 17.49 10^3/uL (4.4-10.8)
[2021-05-24 07:52] LABS: Absolute Neutrophil Count 13.99 10^3/uL (1.2-6.7); Bands % 15
[2021-05-24 07:53] LABS: Absolute Monocyte Count 0.52 10^3/uL (0.1-0.8); Diff Comment Manual Differential; Metamyelocytes % 5; RBC Morphology Normal
[2021-05-24 08:13] LABS: Anion Gap 8.9 mmol/L (3-11); BUN 33 mg/dL (7-18); CO2 27.1 mmol/L (21.0-32.0); CREATININE 1.5 mg/dL (0.55-1.02); Calcium 8.8 mg/dL (8.5-10.1); Chloride 105 mmol/L (98-107); Estimated GFR 34.64 (mL/min/1.73m2); Glucose 180 mg/dL (74-106); Potassium 4.3 mmol/L (3.5-5.1); Sodium 141 mmol/L (136-145)
== END 2021-05-24 14:13 | disposition home or self-care (01) ==
LOC: LBO 14:13
PROVIDERS: Visit Provider Internal Medicine
DX: D64.9 Anemia, unspecified (principal); D69.6 Thrombocytopenia, unspecified; I50.33 Acute on chronic diastolic (congestive) heart failure; N17.9 Acute kidney failure, unspecified; N17.8 Other acute kidney failure
CPT/HCPCS: 36415; 80048; 85025

== ENCOUNTER 2021-06-28 13:22 | Outpatient (REF) | payer BC, MEDICARE, SELFPAY ==
[2021-06-28 14:42] LABS: HCT 29.2 % (36.0-46.0); HGB 8.7 g/dL (11.2-15.7); MCH 28.8 pg (27.0-33.0); MCHC 29.8 % (32.0-36.0); MCV 96.7 fL (80-95); MPV 10.8 fL (8.0-11.0); Platelet Count 393 10^3/uL (130-400); RBC 3.02 10^6/uL (3.93-5.22); RDW 14.6 % (11.7-14.6); WBC 14.92 10^3/uL (4.4-10.8)
[2021-06-28 14:54] LABS: Anion Gap 8.9 mmol/L (3-11); BUN 40 mg/dL (7-18); CO2 27.1 mmol/L (21.0-32.0); Calcium 8.9 mg/dL (8.5-10.1); Chloride 104 mmol/L (98-107); Estimated GFR 24.85 (mL/min/1.73m2); Glucose 142 mg/dL (74-106); Potassium 4.5 mmol/L (3.5-5.1); Sodium 140 mmol/L (136-145)
== END 2021-06-28 13:23 | disposition home or self-care (01) ==
LOC: NCHCN 13:22
PROVIDERS: Visit Provider Physician Assistant
DX: I10 Essential (primary) hypertension (principal); D64.9 Anemia, unspecified
CPT/HCPCS: 80048; 85027

== ENCOUNTER 2021-07-06 03:42 | Outpatient (CLI) | payer BC, MEDICARE, SELFPAY ==
[2021-07-06 09:48] LABS: Abs Immature Grans 0.06 10^3/uL (0.0-0.06); Absolute Basophil Count 0.11 10^3/uL (0.0-0.2); Absolute Eosinophil Count 1.31 10^3/uL (0.0-0.7); Absolute Lymphocyte Count 1.36 10^3/uL (1.2-3.4); Absolute Monocyte Count 0.68 10^3/uL (0.1-0.8); Absolute Neutrophil Count 6.77 10^3/uL (1.2-6.7); Basophils % 1.1; Eosinophils % 12.7; HCT 29.1 % (36.0-46.0); HGB 8.9 g/dL (11.2-15.7); Immature Grans % 0.6; Lymphocytes % 13.2; MCH 28.9 pg (27.0-33.0); MCHC 30.6 % (32.0-36.0); MCV 94.5 fL (80-95); MPV 9.8 fL (8.0-11.0); Monocytes % 6.6; Neutrophils % 65.8; Nucleated RBC 0 %; Platelet Count 304 10^3/uL (130-400); RBC 3.08 10^6/uL (3.93-5.22); RDW 14.2 % (11.7-14.6); RDW-SD 48.9 fL; WBC 10.29 10^3/uL (4.4-10.8)
[2021-07-06 10:01] LABS: ALT 29 U/L (14-59); AST 12 U/L (15-37); Albumin 2.8 g/dL (3.4-5.0); Alkaline Phosphatase 84 U/L (46-116); Anion Gap 5.3 mmol/L (3-11); BUN 30 mg/dL (7-18); Bilirubin, Total 0.2 mg/dL (0.2-1.0); CO2 29.7 mmol/L (21.0-32.0); CREATININE 1.7 mg/dL (0.55-1.02); Calcium 8.7 mg/dL (8.5-10.1); Chloride 106 mmol/L (98-107); Estimated GFR 29.98 (mL/min/1.73m2); Glucose 107 mg/dL (74-106); Magnesium 1.9 mg/dL (1.8-2.4); Potassium 4.4 mmol/L (3.5-5.1); Sodium 141 mmol/L (136-145); Total Protein 6.8 g/dL (6.4-8.2)
== END 2021-07-06 03:43 | disposition home or self-care (01) ==
PROVIDERS: Visit Provider Internal Medicine
DX: C67.9 Malignant neoplasm of bladder, unspecified (principal)
CPT/HCPCS: 36415; 80053; 83735; 85025

== ENCOUNTER 2021-07-20 16:47 | Outpatient (REF) | payer BC, MEDICARE, SELFPAY ==
[2021-07-20 19:35] LABS: Anion Gap 9.5 mmol/L (3-11); BUN 50 mg/dL (7-18); CO2 26.5 mmol/L (21.0-32.0); CREATININE 1.6 mg/dL (0.55-1.02); Calcium 9.3 mg/dL (8.5-10.1); Chloride 105 mmol/L (98-107); Estimated GFR 32.15 (mL/min/1.73m2); Glucose 94 mg/dL (74-106); Potassium 4.4 mmol/L (3.5-5.1); Sodium 141 mmol/L (136-145)
== END 2021-07-20 16:48 | disposition home or self-care (01) ==
LOC: NCHCN 16:47
PROVIDERS: Visit Provider Physician Assistant
DX: I10 Essential (primary) hypertension (principal)
CPT/HCPCS: 80048

== ENCOUNTER 2021-07-23 03:37 | Outpatient (CLI) | payer BC, MEDICARE, SELFPAY ==
--- NOTE | 2021-07-23 | DI.RAD_ITS ---
Exam(s) XR HIP LT COMPLETE AP PELVIS EXAM: XR HIP LT COMPLETE AP PELVIS CLINICAL HISTORY: HIP JOINT PAIN LT, M25.562 TECHNIQUE: COMPARISON: No exams were available for comparison FINDINGS: Two views were obtained. There is severe narrowing of the cartilaginous joint space of the left hip and moderate narrowing of the cartilaginous joint space of the right hip. There are moderate margina l osteophytes of the femoral head and acetabulum bilaterally. Mild soft tissue calcifications are no sobia adjacent to the greater trochanters of the right femur. IMPRESSION: Severe DJD left hip, moderate DJD right hip. RADIATION DOSE DELIVERED: Total DLP
--- NOTE | 2021-07-23 | DI.RAD_ITS ---
Exam(s) XR LUMBAR SPINE COMPLETE XR SACROILIAC JOINTS EXAM: XR LUMBAR SPINE COMPLETE CLINICAL HISTORY: BACK PAIN LOW, M54.5 TECHNIQUE: COMPARISON: CR XR SACROILIAC JOINTS from 07/23/2021 FINDINGS: Five views of the lumbar sacral spine and 3 additional views of the SI joints were obtained. The int ervertebral disc spaces of the lumbar spine appear fairly well maintained. There is no evidence of s pondylolysis or spondylolisthesis. There are moderate hypertrophic changes of the vertebral endplate s facet joints. No compression fracture identified. The SI joints show mild narrowing and osteophyte formation, question slight sclerosis the iliac bones . sacroiliitis not excluded but more likely the findings are secondary to degenerative change. IMPRESSION: Degenerative changes of lumbar spine and SI joints as described above. If there is a high clinical s uspicion sacroiliitis additional evaluation with MR of the SI joints could be considered. RADIATION DOSE DELIVERED: Total DLP
== END 2021-07-23 03:57 ==
PROVIDERS: Visit Provider Family Medicine
DX: M54.5 Low back pain (principal); M25.552 Pain in left hip; M47.816 Spondylosis without myelopathy or radiculopathy, lumbar region; M16.0 Bilateral primary osteoarthritis of hip
CPT/HCPCS: 72110; 72202; 73502

== ENCOUNTER 2021-07-27 11:04 | Outpatient (CLI) | payer BC, MEDICARE, SELFPAY ==
[2021-07-27 10:58] LABS: Abs Immature Grans 0.04 10^3/uL (0.0-0.06); Absolute Basophil Count 0.06 10^3/uL (0.0-0.2); Absolute Lymphocyte Count 1.43 10^3/uL (1.2-3.4); Absolute Monocyte Count 0.68 10^3/uL (0.1-0.8); Absolute Neutrophil Count 7.37 10^3/uL (1.2-6.7); Basophils % 0.6; Eosinophils % 6.8; HCT 30.6 % (36.0-46.0); HGB 9.3 g/dL (11.2-15.7); Immature Grans % 0.4; Lymphocytes % 13.9; MCH 28.1 pg (27.0-33.0); MCHC 30.4 % (32.0-36.0); MCV 92.4 fL (80-95); MPV 9.7 fL (8.0-11.0); Monocytes % 6.6; Neutrophils % 71.7; Nucleated RBC 0 %; Platelet Count 268 10^3/uL (130-400); RBC 3.31 10^6/uL (3.93-5.22); RDW 13.6 % (11.7-14.6); RDW-SD 46.5 fL; WBC 10.28 10^3/uL (4.4-10.8)
[2021-07-27 11:12] LABS: Magnesium 2.3 mg/dL (1.8-2.4)
[2021-07-27 11:16] LABS: ALT 31 U/L (14-59); AST 11 U/L (15-37); Albumin 3.2 g/dL (3.4-5.0); Alkaline Phosphatase 89 U/L (46-116); Anion Gap 7.9 mmol/L (3-11); BUN 64 mg/dL (7-18); Bilirubin, Total 0.3 mg/dL (0.2-1.0); CO2 28.1 mmol/L (21.0-32.0); Calcium 9.2 mg/dL (8.5-10.1); Chloride 103 mmol/L (98-107); Estimated GFR 24.85 (mL/min/1.73m2); Glucose 72 mg/dL (74-106); Potassium 5.2 mmol/L (3.5-5.1); Sodium 139 mmol/L (136-145); Total Protein 7.5 g/dL (6.4-8.2)
[2021-07-27 13:05] LABS: TSH 2.12 uIU/mL (0.36-3.74)
[2021-07-27 13:28] LABS: FREE T4 1.13 ng/dL (0.76-1.46)
== END 2021-07-27 11:05 | disposition home or self-care (01) ==
LOC: LBO 11:04
PROVIDERS: Visit Provider Internal Medicine
DX: C67.9 Malignant neoplasm of bladder, unspecified (principal); C79.10 Secondary malignant neoplasm of unspecified urinary organs; Z79.899 Other long term (current) drug therapy
CPT/HCPCS: 36415; 80053; 83735; 84439; 84443; 85025

== ENCOUNTER 2021-08-11 10:15 | Emergency (ER) | payer BC, MEDICARE, SELFPAY ==
[2021-08-11 10:19] VITALS: BP 184/77; PULSE 85; RESP 18; TEMP 36; O2SAT 99
--- NOTE | 2021-08-11 10:45 | RT.EKG_ITS ---
APPROVED REPORT Exam: Resting ECG Reason for Exam: pain Patient Location: E HR:82 bpm ECG Measurements Heart Rate 82 AXIS GA 156 P 41 QRSd 137 QRS 54 QT 421 T 11 QTc 491 Conclusion Sinus rhythm...normal P axis, V-rate 60- 99 Right bundle branch block...QRSd>120, terminal axis(90,270)
[2021-08-11 11:27] LABS: Bilirubin Negative (Negative); Blood Small (Negative); Clarity Cloudy (Clear); Glucose Negative (Negative); Ketones Negative (Negative); Leukocyte Esterase Moderate (Negative); Nitrite Positive (Negative); Urobilinogen 0.2 EU/dL (Up TO 0.2); pH 5.5 (5-8)
--- NOTE | 2021-08-11 11:30 | DI.CT_ITS ---
Exam(s) CT ABDOMEN PELVIS WO EXAM: CT ABDOMEN PELVIS WO CLINICAL HISTORY: recent nephrectomy, uti. TECHNIQUE: Imaging Protocol: Axial computed tomography images with coronal and sagittal reformatted images were created and reviewed. COMPARISON: CT CT CHEST/ABD/PEL W from 05/19/2021 FINDINGS: ABDOMEN: Lung Bases: There is a stable pericardial effusion. Coronary artery calcifications are present. The re is a small hiatal hernia. Dependent atelectasis. There is scarring in the left lingula with trac tion bronchiectasis. Liver: Normal density. No measurable mass. Gallbladder and biliary tract: No radiodense calculus or biliary ductal dilation. Pancreas: Normal density, no abnormal calcifications or inflammatory process. Spleen: Normal. Kidneys: Since the prior examination the patient has undergone a right nephrectomy. No mass or fluid collection is seen in renal bed. The left kidney is normal in size.Nonobstructing left renal stones are present. No masses seen. Adrenal glands: No mass is seen. Lymph nodes: Within normal limits. Abdominal Aorta: Abdominal portion non-dilated. Atherosclerosis. PELVIS: Bladder:Symmetric distention, no gross wall thickening. There is a small amount of air in the urinary bladder which may be due to recent catheterization. Please correlate clinically. Bowel: No obstruction or bowel wall thickening. Normal appendix is visualized. Incidental note is ag ain made of a duodenal diverticulum. There is diverticulosis seen in the sigmoid colon but no eviden ce of acute diverticulitis. Peritoneal cavity: No ascites, collection or mesenteric inflammatory response. No free air. Reproductive organs: Status post hysterectomy. Bones: Within normal limits. Soft Tissues: No change in appearance of the subcutaneous tissues in the anterior abdominal wall. IMPRESSION: 1. Interval status post right nephrectomy. No evidence of residual mass or fluid collection in the s urgical bed. 2. No acute abdominal or pelvic process. 3. Small focus of air in the urinary bladder. This may be due to recent catheterization. Please cor relate clinically. RADIATION DOSE DELIVERED: 1,249.55mGy.cm Total DLP DATA REPOSITORY: All CT scans at this facility are submitted to the National Radiology Data Registry (NRDR) Dose Index Registry (DIR) with the [employer] (ACR). RADIATION OPTIMIZATION: All CT scans at this facility use at least one of these dose optimization te chniques: automated exposure control; mA and/or kV adjustment per patient size (includes targeted exa ms where dose is matched to clinical indication); or iterative reconstruction.
[2021-08-11 11:36] LABS: HGB 9.3 g/dL (11.2-15.7); MCH 27.6 pg (27.0-33.0); MPV 10.4 fL (8.0-11.0); Platelet Count 289 10^3/uL (130-400); RBC 3.37 10^6/uL (3.93-5.22); RDW 14.1 % (11.7-14.6); RDW-SD 47.9 fL; WBC 8.63 10^3/uL (4.4-10.8)
[2021-08-11 11:36] LABS: Bacteria Many HPF (Negative); C & S Indicated? Yes; Casts Negative LPF (Negative); Crystals Negative HPF (Negative); Epithelial Cells Few HPF (Negative); Mucus Trace (Negative); WBC >50 HPF (0-5)
[2021-08-11 11:57] LABS: ALT 38 U/L (14-59); AST 17 U/L (15-37); Albumin 3.2 g/dL (3.4-5.0); Alkaline Phosphatase 95 U/L (46-116); Anion Gap 5.9 mmol/L (3-11); BUN 60 mg/dL (7-18); Bilirubin, Total 0.2 mg/dL (0.2-1.0); C-Reactive Protein 0.48 mg/dL (0.0-0.3); CO2 28.1 mmol/L (21.0-32.0); CREATININE 2.1 mg/dL (0.55-1.02); Calcium 8.9 mg/dL (8.5-10.1); Chloride 106 mmol/L (98-107); Creatine Kinase 62 U/L (26-192); Estimated GFR 23.49 (mL/min/1.73m2); Glucose 122 mg/dL (74-106); Sodium 140 mmol/L (136-145); Total Protein 7.7 g/dL (6.4-8.2); Troponin I < 0.05 ng/mL (<0.06)
[2021-08-11] MEDS: ceFAZolin 500 MG in Normal Saline 50 ML 100 MG IVPB (12:45)
[2021-08-11 13:28] VITALS: BP 176/76; PULSE 100; RESP 18; TEMP 36.1; O2SAT 95
--- NOTE | 2021-08-11 14:20 | ED.GENADUL_ITS ---
Discharge Plan Disposition Patient Disposition: HOME Condition: Stable Discharge Details Clinical Impression: UTI (urinary tract infection) Primary Care Provider: Derek Torres ED Provider: Rayna Adams Home Meds and New Rx's Prescriptions: New cephalexin 500 mg tablet 500 mg PO Q12H 7 Days Qty: 14 RF: 0 Continued cholecalciferol (vitamin D3) 1,000 UNIT capsule 1,000 iu PO QAM Qty: 100 RF: 4 nystatin-triamcinolone 15 GM cream 1 applic Topical BID PRN PRNQty: 12 RF: 3 (DME) OneTouch Ultra Test 1 EACH strip 1 ea Miscellaneous ac and hs Qty: 400 RF: 4 spironolactone 25 mg tablet 12.5 mg PO DAILY RF: 0 prochlorperazine maleate 10 mg tablet 10 mg PO Q6H PRNRF: 0 sennosides [senna] 8.6 mg tablet 17.2 mg PO BID RF: 0 Fleet Enema 19-7 gram/118 mL Enema 118 ml DE ONCE PRNRF: 0 cyanocobalamin (vitamin B-12) [Vitamin B-12] 500 mcg Tablet 500 mcg PO DAILY Qty: 30 RF: 0 furosemide 20 mg tablet 20 mg PO BID RF: 0 losartan 100 mg tablet 100 mg PO DAILY RF: 0 pyridoxine (vitamin B6) [Vitamin B-6] 25 mg tablet 25 mg PO DAILY RF: 0 docusate sodium 100 mg Capsule 100 mg PO DAILY RF: 0 hydrocodone-acetaminophen 5-325 mg Tablet 1 tab PO Q6H PRNRF: 0 gabapentin 300 mg capsule 300 mg PO TID RF: 0 tizanidine 2 mg tablet 2 mg PO TID PRNRF: 0 Tresiba FlexTouch U-100 100 UNIT/1 ML insulin pen 52 unit SQ QAM RF: 0 Eliquis 2.5 mg tablet 2.5 mg PO BID RF: 0 insulin lispro [Humalog KwikPen Insulin] 100 unit/mL insulin pen 0 - 6 unit SUBCUT PRN PRNRF: 0 sucralfate 1 gram Tablet 1 g PO AC & HS Qty: 120 RF: 0 folic acid 1 mg Tablet 1 mg PO DAILY Qty: 30 RF: 0 pantoprazole [Protonix] 40 mg tablet,delayed release (DR/EC) 40 mg PO DAILY Qty: 30 RF: 0 metoprolol tartrate 25 mg Tablet 12.5 mg PO BID Qty: 60 RF: 0 Discharge Instructions Instructions: Urinary Tract Infection in Women (ED) Additional Instructions: Please call your urologist for follow-up in 1 to 2 days PCP recheck in 24 to 48 hours Take the antibiotic as prescribed, take 1 tablet every 12 hours, this is adjusting for your kidney function Return with fever, chills, worsening pain You may also discontinue the Neurontin You are leaving prior to consultation with your urologist, I will call you if there is any discrepancy in her discussion I encourage you to call them as well tomorrow Referrals: Derek Torres [Primary Care Provider] - Discharge Data Discharge Date/Time-TO BE ENTERED AT DEPARTURE: 08/11/21 14:48 Medical Decision Making Spoke with Dr. Martins, urology at [facility], patient feeling symptomatically improved, well in appearance Patient does have a urinary tract infection, will send this for culture CT does not show acute pathology, patient does have a creatinine of two, this is not changed from prior, BUN sixty, unchanged from prior per radiology interpretation in my review Did perform bladder scan without residual, patient stable for discharge home at this time, request discharge home Return precautions discussed and patient standing We will follow up quickly, recheck in 24 to 48 hours recommended Placed on Keflex with renal dosing adjusted by me Given the threshold to return should you have new or worsening complaints I did consider pulmonary embolism, patient does not have any shortness of breath or chest pain Medical Records Medical records reviewed: Yes I reviewed the patient's medical records. Lab Data Lab results reviewed: Yes I reviewed the patient's lab results. ECG Data Prior ECG tracings: available for review HPI General Mode of arrival: ambulatory . Date/Time Provider Initiated Documentation: 08/11/21 10:37 . Limitations to Documentation: no limitations . Information obtained by: patient . HPI Narrative: This 66-year-old female with history of hypertension, renal cancer, and peripheral neuropathy, ureteronephrectomy on right presents with report of generalized myalgias. She states that she had an extended surgery for the removal in her kidney and ureter proximally a month ago and had some nerve damage from this prolonged intubation. She states that she was placed on Neurontin. She states that she feels as though this is worsening her pain. She discontinued this 24 hours prior to arrival. She denies any specific chest pain or shortness of breath. She denies dysuria or frequency. She states she is able to urinate without difficulty. She denies confusion, falls, injuries. She has not been taking pain medication aside from the Neurontin. She denies known exacerbating or alleviating factors. She denies any chest pain or shortness of breath. She denies dizziness or weakness. She feels that she is getting around her house without difficulty. She denies fever or chills. Related Data Home Medications Medication Instructions Recorded Confirmed cholecalciferol (vitamin D3) 1,000 iu PO QAM #100 tab-cap 07/31/14 08/11/21 nystatin-triamcinolone 1 applic TOPICAL BID PRN PRN #12 09/01/16 08/11/21 box OneTouch Ultra Test #400 strip 10/18/16 03/19/21 prochlorperazine maleate 10 mg PO Q6H PRN 03/19/21 08/11/21 sennosides [senna] 17.2 mg PO BID 03/19/21 08/11/21 spironolactone 12.5 mg PO DAILY 03/19/21 05/19/21 Fleet Enema 118 ml DE ONCE PRN 03/20/21 08/11/21 cyanocobalamin (vitamin B-12) 500 mcg PO DAILY #30 tab 03/22/21 08/11/21 [Vitamin B-12] Eliquis 2.5 mg PO BID 05/19/21 05/19/21 Tresiba FlexTouch U-100 52 unit SQ QAM 05/19/21 08/11/21 insulin lispro [Humalog KwikPen 0 - 6 unit SUBCUT PRN PRN 05/19/21 08/11/21 Insulin] folic acid 1 mg PO DAILY #30 tab 05/21/21 metoprolol tartrate 12.5 mg PO BID #60 tab 05/21/21 08/11/21 pantoprazole [Protonix] 40 mg PO DAILY #30 tab 05/21/21 sucralfate 1 g PO AC & HS #120 tab 05/21/21 cephalexin 500 mg PO Q12H 7 Days #14 tab 08/11/21 docusate sodium 100 mg PO DAILY 08/11/21 08/11/21 furosemide 20 mg PO BID 08/11/21 08/11/21 gabapentin 300 mg PO TID 08/11/21 08/11/21 hydrocodone-acetaminophen 1 tab PO Q6H PRN 08/11/21 08/11/21 losartan 100 mg PO DAILY 08/11/21 08/11/21 pyridoxine (vitamin B6) [Vitamin 25 mg PO DAILY 08/11/21 08/11/21 B-6] tizanidine 2 mg PO TID PRN 08/11/21 08/11/21 Previous Rx's Medication Instructions Recorded cyanocobalamin (vitamin B-12) 500 mcg PO DAILY #30 tab 03/22/21 [Vitamin B-12] folic acid 1 mg PO DAILY #30 tab 05/21/21 metoprolol tartrate 12.5 mg PO BID #60 tab 05/21/21 pantoprazole [Protonix] 40 mg PO DAILY #30 tab 05/21/21 sucralfate 1 g PO AC & HS #120 tab 05/21/21 cephalexin 500 mg PO Q12H 7 Days #14 tab 08/11/21 Allergies Allergy/AdvReac Type Severity Reaction Status Date / Time Sulfa (Sulfonamide Allergy Severe rash Unverified 08/11/21 11:29 Antibiotics) adhesive Allergy Intermediate Skin Rash Unverified 08/11/21 11:29 exenatide microspheres Allergy Unknown Unverified 08/11/21 11:29 [From Bydureon] loratadine AdvReac Severe MADE HER Unverified 08/11/21 11:29 FEEL HYPER celecoxib [From Celebrex] AdvReac Intermediate Pt states Unverified 08/11/21 11:29 side effects unspecified gluten AdvReac Intermediate Diarrhea Unverified 08/11/21 11:29 lactose AdvReac Intermediate Diarrhea Unverified 08/11/21 11:29 Rdqqkhj-Ech-Vof Reductase AdvReac Unverified 08/11/21 11:29 Inhibitor General Stated Complaint: GenMedical NEHA: 3 Review of Systems All systems reviewed & are unremarkable except as noted in HPI and below PFSH Medical History (Updated 08/11/21 @ 14:26 by DELORES Mcgrath) Anxiety Depression Diabetes Diastolic heart failure Gastritis and duodenitis GERD (gastroesophageal reflux disease) History of colon polyps Hyperlipidemia Hypertension Mental health disorder Obesity Osteoarthritis Superficial thrombophlebitis of right upper extremity Urothelial carcinoma Surgical History Abdominal hysterectomy (~11/2010) for fibroid Bilateral salpingectomy with oophorectomy Biopsy of breast cyst excised-left section Colonoscopy - MAC (01/10/17) EGD - MAC (01/10/17) Extraction of cataract (11/10/16) LEFT EYE; DR. MORRIS Hemorrhoidectomy and anal fissure repair Hernia Repair, Incisional OOPHRECTOMY, UNILATERAL (~1991) , Ectopic (~1991) Family History Mother Personal history of malignant neoplasm UTERINE Father Personal history of malignant neoplasm COLON Brother Heart disease Brother No problems noted. Brother No problems noted. Grandfather Personal history of malignant neoplasm Grandfather No problems noted. Grandmother Personal history of malignant neoplasm Stroke Grandmother Diabetes Personal history of malignant neoplasm Social History Smoking/Tobacco Use Status: Former Tobacco Use Smoking risk assessment performed?: Yes Alcohol Intake: never Drug use: Never Substance use type: does not use Details: vapor use Do you feel safe at home: Yes Do you feel safe in your relationship?: Yes Exam Const General: cooperative and no acute distress HENMT Mouth: oral mucosae normal Eyes Pupils: PERRL Chest Chest: normal inspection of the chest Resp Effort & Inspection: normal respiratory effort Auscultation: clear to auscultation bilaterally Cardio Rate: regular rate Rhythm: regular rhythm GI Inspection: normal to inspection Other: Nontender abdominal exam Postoperative site well in appearance, no erythema, no tenderness, no crepitus Skin General skin exam: no rashes or lesions noted Neuro General: patient alert and patient oriented x3 Extrem Other: No calf swelling swelling or tenderness Distal pulses intact Psych Appearance: grossly normal Course Vital Signs Vital signs: Vital Signs Temperature 36 C L 08/11/21 10:19 Pulse 85 08/11/21 10:19 Respiratory Rate 18 08/11/21 10:19 Blood Pressure 184/77 H 08/11/21 10:19 Pulse Oximetry 99 08/11/21 10:19 Temperature 36.1 C L 08/11/21 13:28 Temperature Source Skin 08/11/21 13:28 Pulse 100 H 08/11/21 13:28 Respiratory Rate 18 08/11/21 13:28 Respiratory Effort 08/11/21 11:48 Blood Pressure 176/76 H 08/11/21 13:28 Blood Pressure Position Sitting 08/11/21 10:19 Pulse Oximetry 95 08/11/21 13:28 Oxygen Delivery Method Room Air 08/11/21 13:28 Oxygen Flow Rate 0 08/11/21 13:28 Pain Level 0 08/11/21 13:28 Lab/Test Results Lab/Test Results: 08/11/21 11:13 Urine - Reflex from Ua Urine Culture - Pending Laboratory Tests Range/Units 08/11/21 08/11/21 08/11/21 11:13 11:18 11:18 WBC (4.4-10.8) 10^3/uL 8.63 RBC (3.93-5.22) 10^6/uL 3.37 L Hgb (11.2-15.7) g/dL 9.3 L Hct (36.0-46.0) % 31.0 L MCV (80-95) fL 92.0 MCH (27.0-33.0) pg 27.6 MCHC (32.0-36.0) % 30.0 L RDW (11.7-14.6) % 14.1 Plt Count (130-400) 10^3/uL 289 MPV (8.0-11.0) fL 10.4 Sodium (136-145) mmol/L 140 Potassium (3.5-5.1) mmol/L 5.0 Chloride (98-107) mmol/L 106 Carbon Dioxide (21.0-32.0) mmol/L 28.1 Anion Gap (3-11) mmol/L 5.9 BUN (7-18) mg/dL 60 H Creatinine (0.55-1.02) mg/dL 2.1 H Estimated GFR/1.73 m2 (mL/min/1.73m2) 23.49 Glucose (74-106) mg/dL 122 H Calcium (8.5-10.1) mg/dL 8.9 Total Bilirubin (0.2-1.0) mg/dL 0.2 AST (15-37) U/L 17 ALT (14-59) U/L 38 Alkaline Phosphatase (46-116) U/L 95 Creatine Kinase (26-192) U/L 62 Troponin I (<0.06) ng/mL < 0.05 C-Reactive Protein (0.0-0.3) mg/dL 0.48 H Total Protein (6.4-8.2) g/dL 7.7 Albumin (3.4-5.0) g/dL 3.2 L Urine Color (Yellow) Yellow Urine Clarity (Clear) Cloudy Urine pH (5-8) 5.5 Ur Specific [place] (1.005-1.025) 1.020 Urine Protein (Negative) mg/dL 100 H Urine Ketones (Negative) mg/dL Negative Urine Blood (Negative) Small H Urine Nitrite (Negative) Positive H Urine Bilirubin (Negative) Negative Urine Urobilinogen (Up TO 0.2) EU/dL 0.2 Ur Leukocyte Esterase (Negative) Moderate H Urine RBC (0-2) HPF 5-10 H Urine WBC (0-5) HPF >50 H Ur Epithelial Cells (Negative) HPF Few Urine Crystals (Negative) HPF Negative Urine Bacteria (Negative) HPF Many Urine Casts (Negative) LPF Negative Urine Mucus (Negative) Trace Ur Culture Indicated? Yes Urine Glucose (Negative) mg/dL Negative
[2021-08-11 14:44] VITALS: BP 171/70; PULSE 98; RESP 18; TEMP 36.2; O2SAT 96
== END 2021-08-11 14:48 | disposition home or self-care (01) ==
PROVIDERS: Emergency Provider Physician Assistant; PCP Physician Assistant
DX: N39.0 Urinary tract infection, site not specified (principal); B96.20 Unspecified Escherichia coli [E. coli] as the cause of diseases classified elsewhere; Z85.528 Personal history of other malignant neoplasm of kidney; Z90.5 Acquired absence of kidney; Z90.6 Acquired absence of other parts of urinary tract
CPT/HCPCS: 36415; 80053; 82550; 85027; 87077; 93005; 96365; 99285; 74176; 81003; 81015; 84484; 86140; 87086; 87186; 93010; J0690

== ENCOUNTER 2021-08-24 04:25 | Outpatient (CLI) | payer BC, MEDICARE, SELFPAY ==
[2021-08-24 12:10] LABS: Abs Immature Grans 0.02 10^3/uL (0.0-0.06); Absolute Basophil Count 0.09 10^3/uL (0.0-0.2); Absolute Eosinophil Count 0.22 10^3/uL (0.0-0.7); Absolute Lymphocyte Count 1.29 10^3/uL (1.2-3.4); Absolute Monocyte Count 0.51 10^3/uL (0.1-0.8); Absolute Neutrophil Count 6.33 10^3/uL (1.2-6.7); Basophils % 1.1; Eosinophils % 2.6; HCT 32.9 % (36.0-46.0); HGB 10.4 g/dL (11.2-15.7); Immature Grans % 0.2; Lymphocytes % 15.2; MCH 27.7 pg (27.0-33.0); MCHC 31.6 % (32.0-36.0); MCV 87.7 fL (80-95); MPV 10.2 fL (8.0-11.0); Neutrophils % 74.9; Nucleated RBC 0 %; Platelet Count 254 10^3/uL (130-400); RBC 3.75 10^6/uL (3.93-5.22); RDW 13.8 % (11.7-14.6); RDW-SD 44.3 fL; WBC 8.46 10^3/uL (4.4-10.8)
[2021-08-24 12:25] LABS: ALT 42 U/L (14-59); AST 15 U/L (15-37); Alkaline Phosphatase 97 U/L (46-116); Anion Gap 6.6 mmol/L (3-11); BUN 43 mg/dL (7-18); Bilirubin, Total 0.3 mg/dL (0.2-1.0); CO2 26.4 mmol/L (21.0-32.0); CREATININE 2.1 mg/dL (0.55-1.02); Calcium 8.8 mg/dL (8.5-10.1); Chloride 108 mmol/L (98-107); Estimated GFR 23.49 (mL/min/1.73m2); Glucose 205 mg/dL (74-106); Potassium 5.1 mmol/L (3.5-5.1); Sodium 141 mmol/L (136-145); Total Protein 7.1 g/dL (6.4-8.2)
[2021-08-24 15:53] LABS: FREE T4 1.02 ng/dL (0.76-1.46)
== END 2021-08-24 04:26 | disposition home or self-care (01) ==
LOC: LBO 04:25
PROVIDERS: PCP Physician Assistant; Visit Provider Internal Medicine
DX: C67.9 Malignant neoplasm of bladder, unspecified (principal); C79.10 Secondary malignant neoplasm of unspecified urinary organs; Z79.899 Other long term (current) drug therapy
CPT/HCPCS: 36415; 80053; 83735; 84439; 84443; 85025

== ENCOUNTER 2021-09-03 16:18 | Outpatient (REF) | payer BC, MEDICARE, SELFPAY ==
[2021-09-03 20:13] LABS: Bilirubin Negative (Negative); Blood Trace-intact (Negative); Clarity Cloudy (Clear); Glucose Negative (Negative); Ketones Negative (Negative); Leukocyte Esterase Large (Negative); Nitrite Positive (Negative); Specific Gravity <= 1.005 (1.005-1.025); Urobilinogen 0.2 EU/dL (Up TO 0.2)
[2021-09-03 20:20] LABS: Bacteria Many HPF (Negative); C & S Indicated? C&S Done As Ordered; Casts Negative LPF (Negative); Crystals Negative HPF (Negative); Epithelial Cells Few HPF (Negative); Mucus Moderate (Negative); RBC 0-2 HPF (0-2); WBC >50 HPF (0-5)
== END 2021-09-03 16:19 | disposition home or self-care (01) ==
LOC: NCHCN 16:18
PROVIDERS: PCP Physician Assistant; Visit Provider Physician Assistant
DX: N39.0 Urinary tract infection, site not specified (principal)
CPT/HCPCS: 87077; 81003; 81015; 87086; 87186

== ENCOUNTER 2021-09-21 03:30 | Outpatient (CLI) | payer BC, MEDICARE, SELFPAY ==
[2021-09-21 12:19] LABS: Abs Immature Grans 0.05 10^3/uL (0.0-0.06); Absolute Basophil Count 0.07 10^3/uL (0.0-0.2); Absolute Eosinophil Count 0.37 10^3/uL (0.0-0.7); Absolute Lymphocyte Count 1.29 10^3/uL (1.2-3.4); Absolute Monocyte Count 0.54 10^3/uL (0.1-0.8); Absolute Neutrophil Count 5.79 10^3/uL (1.2-6.7); Basophils % 0.9; Eosinophils % 4.6; HGB 10.6 g/dL (11.2-15.7); Immature Grans % 0.6; Lymphocytes % 15.9; MCH 27.7 pg (27.0-33.0); MCHC 31.2 % (32.0-36.0); MPV 10.8 fL (8.0-11.0); Monocytes % 6.7; Neutrophils % 71.3; Nucleated RBC 0 %; Platelet Count 253 10^3/uL (130-400); RBC 3.82 10^6/uL (3.93-5.22); RDW 14.4 % (11.7-14.6); RDW-SD 46.5 fL; WBC 8.11 10^3/uL (4.4-10.8)
[2021-09-21 12:33] LABS: ALT 25 U/L (14-59); AST 12 U/L (15-37); Alkaline Phosphatase 93 U/L (46-116); Anion Gap 8.1 mmol/L (3-11); BUN 52 mg/dL (7-18); Bilirubin, Total 0.3 mg/dL (0.2-1.0); CO2 25.9 mmol/L (21.0-32.0); CREATININE 1.6 mg/dL (0.55-1.02); Calcium 8.6 mg/dL (8.5-10.1); Chloride 104 mmol/L (98-107); Estimated GFR 32.15 (mL/min/1.73m2); Glucose 175 mg/dL (74-106); Potassium 5.3 mmol/L (3.5-5.1); Sodium 138 mmol/L (136-145); Total Protein 7.1 g/dL (6.4-8.2)
== END 2021-09-21 03:31 | disposition home or self-care (01) ==
LOC: LBO 03:30
PROVIDERS: PCP Physician Assistant; Visit Provider Internal Medicine
DX: C67.9 Malignant neoplasm of bladder, unspecified (principal)
CPT/HCPCS: 36415; 80053; 83735; 85025

== ENCOUNTER 2021-09-29 14:00 | Outpatient (CLI) | payer BC, MEDICARE, SELFPAY ==
[2021-09-29 16:34] LABS: Abs Immature Grans 0.05 10^3/uL (0.0-0.06); Absolute Basophil Count 0.06 10^3/uL (0.0-0.2); Absolute Eosinophil Count 0.34 10^3/uL (0.0-0.7); Absolute Lymphocyte Count 1.66 10^3/uL (1.2-3.4); Absolute Monocyte Count 0.61 10^3/uL (0.1-0.8); Basophils % 0.7; Eosinophils % 3.9; HCT 34.9 % (36.0-46.0); HGB 10.7 g/dL (11.2-15.7); Immature Grans % 0.6; Lymphocytes % 19.3; MCH 26.9 pg (27.0-33.0); MCHC 30.7 % (32.0-36.0); MCV 87.7 fL (80-95); MPV 10.6 fL (8.0-11.0); Monocytes % 7.1; Neutrophils % 68.4; Nucleated RBC 0 %; Platelet Count 298 10^3/uL (130-400); RBC 3.98 10^6/uL (3.93-5.22); RDW 14.2 % (11.7-14.6); RDW-SD 45.6 fL; WBC 8.62 10^3/uL (4.4-10.8)
[2021-09-29 16:59] LABS: ALT 32 U/L (14-59); AST 17 U/L (15-37); Albumin 3.2 g/dL (3.4-5.0); Alkaline Phosphatase 96 U/L (46-116); BUN 62 mg/dL (7-18); Bilirubin, Total 0.2 mg/dL (0.2-1.0); CREATININE 1.6 mg/dL (0.55-1.02); Calcium 9.2 mg/dL (8.5-10.1); Chloride 106 mmol/L (98-107); Estimated GFR 32.15 (mL/min/1.73m2); Glucose 87 mg/dL (74-106); Magnesium 2.1 mg/dL (1.8-2.4); Potassium 5.6 mmol/L (3.5-5.1); Sodium 140 mmol/L (136-145); Total Protein 7.3 g/dL (6.4-8.2)
== END 2021-09-29 14:01 | disposition home or self-care (01) ==
LOC: LBO 14:14
PROVIDERS: PCP Physician Assistant; Visit Provider Internal Medicine
DX: C67.9 Malignant neoplasm of bladder, unspecified (principal)
CPT/HCPCS: 36415; 80053; 83735; 85025

== ENCOUNTER 2021-10-01 16:52 | Outpatient (REF) | payer BC, MEDICARE, SELFPAY | END 2021-10-01 16:53 | disposition home or self-care (01) | LOC: NCHCN 16:52 | PROVIDERS: PCP Physician Assistant; Visit Provider Physician Assistant | DX: N39.0 Urinary tract infection, site not specified (principal) | CPT/HCPCS: 87077; 87086; 87186 ==

== ENCOUNTER 2021-10-06 16:19 | Outpatient (CLI) | payer BC, MEDICARE, SELFPAY ==
[2021-10-06 17:21] LABS: Calcium 8.6 mg/dL (8.5-10.1)
[2021-10-06 17:22] LABS: ALT 37 U/L (14-59); AST 16 U/L (15-37); Albumin 3.1 g/dL (3.4-5.0); Alkaline Phosphatase 102 U/L (46-116); Anion Gap 9.4 mmol/L (3-11); BUN 56 mg/dL (7-18); Bilirubin, Total 0.2 mg/dL (0.2-1.0); CO2 23.6 mmol/L (21.0-32.0); CREATININE 1.8 mg/dL (0.55-1.02); Chloride 106 mmol/L (98-107); Estimated GFR 28.07 (mL/min/1.73m2); Glucose 236 mg/dL (74-106); Potassium 5.1 mmol/L (3.5-5.1); Sodium 139 mmol/L (136-145); Total Protein 7.3 g/dL (6.4-8.2)
== END 2021-10-06 16:20 | disposition home or self-care (01) ==
LOC: LBO 16:22
PROVIDERS: PCP Physician Assistant; Visit Provider Internal Medicine
DX: C67.9 Malignant neoplasm of bladder, unspecified (principal)
CPT/HCPCS: 36415; 80053

== ENCOUNTER 2021-10-19 04:07 | Outpatient (CLI) | payer BC, MEDICARE, SELFPAY ==
[2021-10-19 12:15] LABS: Abs Immature Grans 0.06 10^3/uL (0.0-0.06); Absolute Basophil Count 0.09 10^3/uL (0.0-0.2); Absolute Eosinophil Count 0.31 10^3/uL (0.0-0.7); Absolute Lymphocyte Count 1.54 10^3/uL (1.2-3.4); Absolute Monocyte Count 0.52 10^3/uL (0.1-0.8); Absolute Neutrophil Count 6.89 10^3/uL (1.2-6.7); Eosinophils % 3.3; HCT 34.9 % (36.0-46.0); HGB 10.8 g/dL (11.2-15.7); Immature Grans % 0.6; Lymphocytes % 16.4; MCH 27.6 pg (27.0-33.0); MCHC 30.9 % (32.0-36.0); MPV 10.2 fL (8.0-11.0); Monocytes % 5.5; Neutrophils % 73.2; Nucleated RBC 0 %; Platelet Count 246 10^3/uL (130-400); RBC 3.92 10^6/uL (3.93-5.22); RDW 14.7 % (11.7-14.6); RDW-SD 47.3 fL; WBC 9.41 10^3/uL (4.4-10.8)
[2021-10-19 12:26] LABS: ALT 37 U/L (14-59); AST 19 U/L (15-37); Alkaline Phosphatase 108 U/L (46-116); Anion Gap 5.4 mmol/L (3-11); BUN 44 mg/dL (7-18); Bilirubin, Total 0.2 mg/dL (0.2-1.0); CO2 26.6 mmol/L (21.0-32.0); CREATININE 1.5 mg/dL (0.55-1.02); Calcium 8.7 mg/dL (8.5-10.1); Chloride 106 mmol/L (98-107); Estimated GFR 34.64 (mL/min/1.73m2); Glucose 202 mg/dL (74-106); Magnesium 1.9 mg/dL (1.8-2.4); Potassium 4.5 mmol/L (3.5-5.1); Sodium 138 mmol/L (136-145); Total Protein 7.2 g/dL (6.4-8.2)
== END 2021-10-19 04:08 | disposition home or self-care (01) ==
LOC: LBO 04:07
PROVIDERS: PCP Physician Assistant; Visit Provider Internal Medicine
DX: C67.9 Malignant neoplasm of bladder, unspecified (principal)
CPT/HCPCS: 36415; 80053; 83735; 85025

== ENCOUNTER 2021-10-27 15:24 | Observation (INO) | payer BC, MEDICARE, SELFPAY ==
[2021-10-27] VITALS (33 sets, daily range): BP systolic 127–193; BP diastolic 65–97; PULSE 86–114; RESP 16–31; TEMP 36.7–37.4; O2SAT 93–98
--- NOTE | 2021-10-27 15:30 | RT.EKG_ITS ---
APPROVED REPORT Exam: Resting ECG Reason for Exam: sob Patient Location: E HR:111 bpm ECG Measurements Heart Rate 111 AXIS TX 149 P 55 QRSd 138 QRS 59 QT 368 T -56 QTc 501 Conclusion Sinus tachycardia. Right bundle branch Repol abnrm unchanged from previous
--- NOTE | 2021-10-27 15:30 | DI.US_ITS ---
Exam(s) US LOWER EXTREMITY VENOUS RT EXAM: US LOWER EXTREMITY VENOUS RT CLINICAL HISTORY: foot/calf swelling TECHNIQUE: Right lower extremity venous ultrasound performed using grayscale, color-flow, and spectr al Doppler analysis. COMPARISON: No exams were available for comparison FINDINGS: The right common femoral and femoral veins demonstrate normal compressibility, augmentation, and colo r Doppler. There is hypoechoic thrombus seen in the right popliteal vein extending inferiorly into t he peroneal veins. The posterior tibial veins are patent. The saphenofemoral junction is unremarkab le. There is no evidence of a Malik cyst. The soft tissues are unremarkable. IMPRESSION: 1. Findings of a right popliteal vein DVT extending into the peroneal veins. 2. Results of this exam have been verbally communicated with provider. DATA REPOSITORY:
--- NOTE | 2021-10-27 16:03 | ED.GENADUL_ITS ---
Discharge Plan Disposition Patient Disposition: [facility] INPATIENT Condition: Improving Discharge Details Chief Complaint: Vascular Clinical Impression: Deep vein thrombosis of right lower extremity Admit Date/Time: 10/27/21 18:15 Admit Provider: Bobo Hunter Attending Provider: Bobo Hunter Primary Care Provider: Derek Torres ED Provider: Chino Rockwell Medical Decision Making 66-year-old female referred from the cancer center. She has been treated metastatic urothelial carcinoma and is status post right nephrectomy, with ongoing immunotherapy treatment. States that she previously was treated with a blood thinner, but not for the past 2 months. States that she has noticed increased right leg swelling over the past 3 days, and noticed that some of previous complications have occurred following infusions which she had last week. No chest pain or shortness of breath. She has been struggling with some back pain and lower extremity weakness and states she recently had a tumor found in the spine, for which she has pending MRI. There are no change to these recent symptoms. Patient's other past medical history is notable for type 2 diabetes, chronic kidney disease, history of CHF, bilateral lower extremity edema, peripheral neur opathy, and as noted above states to me that she just recently had a chest, abdomen and pelvis PET scan which noted probable recurrent spinal carcinoma with plan for biopsy. I received and reviewed her recent clinic notes which note PET scan from October 15 with new hypermetabolic sclerotic lesions concerning for skeletal metastases to the L5-S1 area. Recommend anticoagulation with Lovenox Patient referred for lower extremity ultrasound which shows right popliteal and peroneal DVT. Given the recent lower extremity progressive weakness and some pain, recent PET findings, I discussed the case with on-call heme-onc at [facility], or [facility] if the patient is on excepting of subcutaneous shots. They agree with admission and pursuit of MRI, given concern for increasing weakness, back pain, known sclerotic lesions. Patient's diagnostic studies today include a chest x-ray which shows suggestion of linear atelectasis, no large consolidation. She has a slightly elevated BNP of 1357 which is at the low end of her scale. HPI General Mode of arrival: wheelchair . Date/Time Provider Initiated Documentation: 10/27/21 15:26 . Limitations to Documentation: no limitations . Information obtained by: patient . History of Present Illness 66 year old F presents to the emergency department with the chief complaint of Right leg swelling, no longer taking blood thinners, described as mild and moderate, Quality is described as dull and constant, and is localized to the lower extremity. Patient started experiencing this day(s) and it has been constant. No relieving factors improve symptom(s), No exacerbating factors reported . Patient notes denies chest pain and shortness of breath. Patient did receive the following treatments prior to arrival, none Related Data Home Medications Medication Instructions Recorded Confirmed cholecalciferol (vitamin D3) 1,000 iu PO QAM #100 tab-cap 07/31/14 10/27/21 nystatin-triamcinolone 1 applic TOPICAL BID PRN PRN #12 09/01/16 10/27/21 box OneTouch Ultra Test #400 strip 10/18/16 03/19/21 prochlorperazine maleate 10 mg PO Q6H PRN 03/19/21 10/27/21 sennosides [senna] 17.2 mg PO BID 03/19/21 10/27/21 Fleet Enema 118 ml NC ONCE PRN 03/20/21 10/27/21 cyanocobalamin (vitamin B-12) 500 mcg PO DAILY #30 tab 03/22/21 10/27/21 [Vitamin B-12] Tresiba FlexTouch U-100 52 unit SQ QAM 05/19/21 10/27/21 insulin lispro [Humalog KwikPen 0 - 6 unit SUBCUT PRN PRN 05/19/21 10/27/21 Insulin] metoprolol tartrate 12.5 mg PO BID #60 tab 05/21/21 10/27/21 docusate sodium 100 mg PO DAILY 08/11/21 10/27/21 furosemide 20 mg PO BID 08/11/21 10/27/21 hydrocodone-acetaminophen 1 tab PO Q6H PRN 08/11/21 10/27/21 losartan 50 mg PO DAILY 08/11/21 10/27/21 pyridoxine (vitamin B6) [Vitamin 25 mg PO DAILY 08/11/21 10/27/21 B-6] calcium carbonate [Tums 500] 500 mg PO DAILY PRN 10/27/21 10/27/21 ondansetron HCl 8 mg PO Q8H PRN PRN 12/01/21 12/01/21 polyethylene glycol 3350 17 g PO DAILY PRN PRN 10/27/21 10/27/21 Previous Rx's Medication Instructions Recorded cyanocobalamin (vitamin B-12) 500 mcg PO DAILY #30 tab 03/22/21 [Vitamin B-12] metoprolol tartrate 12.5 mg PO BID #60 tab 05/21/21 Allergies Allergy/AdvReac Type Severity Reaction Status Date / Time Sulfa (Sulfonamide Allergy Severe rash Unverified 10/27/21 15:36 Antibiotics) adhesive Allergy Intermediate Skin Rash Unverified 10/27/21 15:36 exenatide microspheres Allergy Unknown Unverified 10/27/21 15:36 [From Bydureon] loratadine AdvReac Severe MADE HER Unverified 10/27/21 15:36 FEEL HYPER celecoxib [From Celebrex] AdvReac Intermediate Pt states Unverified 10/27/21 15:36 side effects unspecified gluten AdvReac Intermediate Diarrhea Unverified 10/27/21 15:36 lactose AdvReac Intermediate Diarrhea Unverified 10/27/21 15:36 Nbmzcmn-AJO-MgO Reductase AdvReac Unverified 10/27/21 15:36 Inhibitor [Spamtpb-Mjp-Bix Reductase Inhibitor] General Stated Complaint: Vascular NEHA: 3 Review of Systems Narrative: Stopped previous anticoagulation proximally 2 months ago. Continues to receive immunotherapy for carcinoma. Denies any chest pain or significant shortness of breath. 8 systems reviewed and otherwise negative [facility] Active Problem List Mental health disorder (Chronic) Folate deficiency (Acute) Acute kidney injury superimposed on chronic kidney disease (Acute) Acute on chronic anemia (Acute) Hypertension (Chronic) Anxiety (Chronic) Constipation (Acute) Reflux esophagitis (Acute) Acute on chronic diastolic CHF (congestive heart failure), NYHA class 1 (Chronic) Chest pain (Acute) Pericardial effusion (Acute) Elevated troponin (Acute) Acute anemia (Acute) Thrombocytopenia (Acute) Bandemia (Acute) Diastolic heart failure (Acute) Peripheral neuropathy (Chronic) Superficial thrombophlebitis of right upper extremity (Acute) Urothelial carcinoma (Acute) Acute pulmonary edema (Acute) IDDM (insulin dependent diabetes mellitus) (Chronic) Discharge planning issues (Acute) DVT prophylaxis (Acute) Ureteral cancer (Acute) Acute CHF (Acute) Leukocytosis (Acute) Bilateral lower extremity edema (Acute) Pericardial effusion (Acute) UTI (urinary tract infection) (Acute) Kidney mass (Acute) Flank pain (Acute) Medical History Depression Diabetes Gastritis and duodenitis GERD (gastroesophageal reflux disease) History of colon polyps Hyperlipidemia Obesity Osteoarthritis Surgical History Abdominal hysterectomy (~11/2010) for fibroid Bilateral salpingectomy with oophorectomy Biopsy of breast cyst excised-left section Colonoscopy - MAC (01/10/17) EGD - MAC (01/10/17) Extraction of cataract (11/10/16) LEFT EYE; DR. MORRIS Hemorrhoidectomy and anal fissure repair Hernia Repair, Incisional OOPHRECTOMY, UNILATERAL (~1991) , Ectopic (~1991) Family History Mother Personal history of malignant neoplasm UTERINE Father Personal history of malignant neoplasm COLON Brother Heart disease Brother No problems noted. Brother No problems noted. Grandfather Personal history of malignant neoplasm Grandfather No problems noted. Grandmother Personal history of malignant neoplasm Stroke Grandmother Diabetes Personal history of malignant neoplasm Social History Smoking/Tobacco Use Status: Former Tobacco Use Smoking risk assessment performed?: Yes Alcohol Intake: never Drug use: Never Substance use type: does not use Details: vapor use Do you feel safe at home: Yes Do you feel safe in your relationship?: Yes Exam Narrative Exam Narrative: GEN: awake, alert, oriented 3. Pleasant, well groomed, interactive. HEAD: Normocephalic, atraumatic ENT: Mucous membranes moist, oropharynx unremarkable, External ear exam unremarkable EYES: PERRL, EOMI NECK: Full ROM, no LINDSAY, no menigismus CHEST/RESP: Nontender, clear to auscultation bilateral, no wheeze/rhonchi/rales CARDIOVASCULAR: Regular and borderline tachycardia, no murmur, rub delon. 2+ Rad pulse bilateral ABDOMEN: Soft, nontender, no mass. +Bowel sounds EXT: Full ROM, able to lift both legs off the bed against gravity, but not against resistance. Sensation intact throughout including saddle distribution. 2+ edema below the right knee, left lower extremity unremarkable. Palpable DP bilaterally Neuro: Grossly normal neurologic exam, conversant, interactive. Psych: Speech fluent, thoughts congruent, affect normal Course Vital Signs Vital signs: Vital Signs Temperature 36.7 C 10/27/21 15:26 Pulse 114 H 10/27/21 15:26 Respiratory Rate 18 10/27/21 15:26 Blood Pressure 170/76 H 10/27/21 15:26 Pulse Oximetry 98 10/27/21 15:26 Temperature 36.7 C 10/27/21 15:26 Pulse 114 H 10/27/21 15:26 Respiratory Rate 18 10/27/21 15:26 Respiratory Effort Incrsd Work of Breathing 10/27/21 15:37 Blood Pressure 170/76 H 10/27/21 15:26 Pulse Oximetry 98 10/27/21 15:26 Oxygen Delivery Method Room Air 10/27/21 15:26 Oxygen Flow Rate 0 10/27/21 15:26 Pain Level 7 10/27/21 15:26 Comment 10/27/21 15:26
[2021-10-27 16:04] LABS: Abs Immature Grans 0.06 10^3/uL (0.0-0.06); Absolute Basophil Count 0.05 10^3/uL (0.0-0.2); Absolute Eosinophil Count 0.15 10^3/uL (0.0-0.7); Absolute Lymphocyte Count 1.19 10^3/uL (1.2-3.4); Basophils % 0.5; Eosinophils % 1.4; HCT 34.1 % (36.0-46.0); HGB 10.6 g/dL (11.2-15.7); Immature Grans % 0.6; MCH 27.7 pg (27.0-33.0); MCHC 31.1 % (32.0-36.0); MCV 89.3 fL (80-95); MPV 10.8 fL (8.0-11.0); Monocytes % 5.5; Nucleated RBC 0 %; Platelet Count 243 10^3/uL (130-400); RBC 3.82 10^6/uL (3.93-5.22); RDW 14.6 % (11.7-14.6); RDW-SD 47.5 fL; WBC 10.82 10^3/uL (4.4-10.8)
[2021-10-27 16:07] LABS: Absolute Neutrophil Count 8.76 10^3/uL (1.2-6.7)
[2021-10-27 16:18] LABS: Prothrombin Time 9.8 sec (9.3-11.0)
[2021-10-27 16:20] LABS: ALT 30 U/L (14-59); AST 30 U/L (15-37); Alkaline Phosphatase 100 U/L (46-116); Anion Gap 8.6 mmol/L (3-11); BUN 49 mg/dL (7-18); Bilirubin, Total 0.3 mg/dL (0.2-1.0); CO2 24.4 mmol/L (21.0-32.0); CREATININE 1.6 mg/dL (0.55-1.02); Calcium 8.6 mg/dL (8.5-10.1); Chloride 103 mmol/L (98-107); Estimated GFR 32.15 (mL/min/1.73m2); Glucose 277 mg/dL (74-106); Sodium 136 mmol/L (136-145)
[2021-10-27] MEDS: Normal Saline 1,000 ML 150 ML IV (16:39)
--- NOTE | 2021-10-27 16:45 | DI.RAD_ITS ---
Exam(s) XR CHEST 2V PA LATERAL EXAM: XR CHEST 2V PA LATERAL CLINICAL HISTORY: SOB. TECHNIQUE: 2D digital imaging was performed. COMPARISON: CR XR CHEST 2V PA LATERAL from 05/19/2021 FINDINGS: Heart size is normal. The mediastinum is not widened. There is unchanged platelike atelectasis in the appear lingular segment of the left lung. Also plate like atelectasis in the right infrahilar region and increasing platelike atelectasis in the lateral r ight mid lung field. No pleural effusions. No air bronchograms. IMPRESSION: Bilateral linear platelike atelectasis, slightly increased on the right side when compared to 021. No confluent infiltrates. There are no pleural effusions DATA REPOSITORY: RADIATION DOSE DELIVERED:
[2021-10-27 17:06] LABS: Source Nasal/Nares
[2021-10-27 17:15] LABS: NT-proBNP 1357 pg/mL (<300)
--- NOTE | 2021-10-27 17:21 | DI.VRAD_ITS ---
PROCEDURE INFORMATION: Exam: XR Chest Exam date and time: 10/27/2021 4:48 PM Age: 66 years old Clinical indication: Other: SOB TECHNIQUE: Imaging protocol: XR of the chest. Views: 2 views. COMPARISON: CR XR CHEST 2V PA LATERAL 05/19/2021 2:01 PM FINDINGS: Lungs: Linear opacities in the bilateral midlung zones may represent atelectasis. No large consolidation. Pleural spaces: No pleural effusion. No pneumothorax. Heart/Mediastinum: Unremarkable. No cardiomegaly. Bones/joints: Unremarkable. IMPRESSION: Suggestion of linear atelectasis. No large consolidation. Dictated and Authenticated by: Nicole Navarro MD. Ordering:KRISTIE Magana MD
[2021-10-27] MEDS: Insulin REGULAR-Human 100 UNITS/ML UNIT SC (18:22)
[2021-10-27] MEDS: Enoxaparin 120 MG/0.8 ML SYR SC (18:23)
[2021-10-27] MEDS: HYDROcodone 5/Acetaminophen 325 TAB PO (18:48)
--- NOTE | 2021-10-27 20:31 | W.PM.HP.N ---
Date of service: 10/27/21 Time of Service: 20:31 Assessment and Plan Assessment and plan (1) DVT (deep venous thrombosis): Status: Chronic Assessment and plan: She is not happy about the enoxaparin injection. I will start her on heparin with a bolus and intravenous heparin before the 12 hours of the current enoxaparin is due for repeat dose. I told her her oncologist may want her to stay on enoxaparin but that can be dealt with tomorrow. I told her is not advisable at this time to go on a long acting oral anticoagulant because we want to see what may need to be done in terms of the bony tumors and possible biopsy. (2) Bone tumor: Status: Acute Assessment and plan: An MRI will be scheduled for tomorrow. I have put this in as a MRI with contrast but that could be changed in consultation with radiology. History of Present Illness History of Present Illness Chief Complaint: Right leg swelling and back pain Narrative: This 66-year-old female has multiple medical problems that are documented in her record but she has developed some increased swelling and discomfort in her right lower leg with back pain. She said she has had pain and swelling intermittently of the right lower leg but got worse yesterday and today and came to the hospital today to be evaluated. She had a PET scan 5 days ago which showed some new lesions of L5 and S1 and an MRI was to be done soon but was not set up yet. She presented to the emergency department was found to have a DVT of her right lower leg. After discussion with oncology it was felt advisable to have her be admitted for this and treated with enoxaparin and to get the MRI set up. She had suffered a thrombophlebitis over upper extremity few months ago and was on enoxaparin and then apixaban. She states that her primary care provider stopped the apixaban a few months ago. She thinks she will need a biopsy of the spinal lesions relatively soon. She is concerned at the present time because nurses want to have her on a bed alarm and she is not happy with the shots in her abdomen for the apixaban as she says she still has a lump in her abdomen from shots from few months ago. Her last bowel movement was yesterday and she says they have been flatter than normal. She complains of numbness and burning in both legs and increased pain of her legs at night. 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 However she is still receiving the immunotherapy. Review of Systems Constitutional Constitutional: Denies chills, Denies fatigue, Denies fever(s) and Denies malaise Cardiovascular Cardiovascular: Denies chest pain, Denies irregular heart rhythm, Reports leg edema, Denies radiating jaw, neck or arm pain, Denies palpitations and Reports dyspnea Respiratory Respiratory: Denies cough, Reports dyspnea, Denies stridor and Denies wheezing Gastrointestinal Gastrointestinal: Denies cramping, Denies diarrhea, Denies loose stools, Denies nausea and Denies vomiting Genitourinary Genitourinary: Denies urinary frequency and Denies difficulty voiding Musculoskeletal Musculoskeletal: Reports tingling Neurologic Neurologic: Denies sensory deficit, Reports tingling and Denies tremor(s) Endocrine Endocrine: Denies fatigue and Denies palpitations Allergic/Immunologic Allergic/Immunologic: Denies wheezing [facility] Active Problem List Mental health disorder (Chronic) Folate deficiency (Acute) Acute kidney injury superimposed on chronic kidney disease (Acute) Acute on chronic anemia (Acute) Hypertension (Chronic) Anxiety (Chronic) Constipation (Acute) Reflux esophagitis (Acute) Acute on chronic diastolic CHF (congestive heart failure), NYHA class 1 (Chronic) Chest pain (Acute) Pericardial effusion (Acute) Elevated troponin (Acute) Acute anemia (Acute) Thrombocytopenia (Acute) Bandemia (Acute) Diastolic heart failure (Acute) Peripheral neuropathy (Chronic) Superficial thrombophlebitis of right upper extremity (Acute) Urothelial carcinoma (Acute) Acute pulmonary edema (Acute) IDDM (insulin dependent diabetes mellitus) (Chronic) Discharge planning issues (Acute) DVT prophylaxis (Acute) Ureteral cancer (Acute) Acute CHF (Acute) Leukocytosis (Acute) Bilateral lower extremity edema (Acute) Pericardial effusion (Acute) UTI (urinary tract infection) (Acute) Kidney mass (Acute) Flank pain (Acute) Medical History Depression Diabetes Gastritis and duodenitis GERD (gastroesophageal reflux disease) History of colon polyps Hyperlipidemia Obesity Osteoarthritis Surgical History Abdominal hysterectomy (~11/2010) for fibroid Bilateral salpingectomy with oophorectomy Biopsy of breast cyst excised-left section Colonoscopy - MAC (01/10/17) EGD - MAC (01/10/17) Extraction of cataract (11/10/16) LEFT EYE; DR. MORRIS Hemorrhoidectomy and anal fissure repair Hernia Repair, Incisional OOPHRECTOMY, UNILATERAL (~1991) , Ectopic (~1991) Family History Mother Personal history of malignant neoplasm UTERINE Father Personal history of malignant neoplasm COLON Brother Heart disease Brother No problems noted. Brother No problems noted. Grandfather Personal history of malignant neoplasm Grandfather No problems noted. Grandmother Personal history of malignant neoplasm Stroke Grandmother Diabetes Personal history of malignant neoplasm Social History Smoking/Tobacco Use Status: Former Tobacco Use Smoking risk assessment performed?: Yes Alcohol Intake: never Drug use: Never Substance use type: does not use Details: vapor use Do you feel safe at home: Yes Do you feel safe in your relationship?: Yes Meds Allergies and Home Medications Allergies Allergy/AdvReac Type Severity Reaction Status Date / Time Sulfa (Sulfonamide Allergy Severe rash Unverified 10/27/21 15:36 Antibiotics) adhesive Allergy Intermediate Skin Rash Unverified 10/27/21 15:36 exenatide microspheres Allergy Unknown Unverified 10/27/21 15:36 [From Bydureon] loratadine AdvReac Severe MADE HER Unverified 10/27/21 15:36 FEEL HYPER celecoxib [From Celebrex] AdvReac Intermediate Pt states Unverified 10/27/21 15:36 side effects unspecified gluten AdvReac Intermediate Diarrhea Unverified 10/27/21 15:36 lactose AdvReac Intermediate Diarrhea Unverified 10/27/21 15:36 Fspzzvx-BPS-MdT Reductase AdvReac Unverified 10/27/21 15:36 Inhibitor [Ejyhvew-Dup-Djs Reductase Inhibitor] Home Medications Medication Instructions Recorded Confirmed Type cholecalciferol (vitamin D3) 1,000 iu PO QAM #100 tab-cap 09/04/14 12/01/21 History nystatin-triamcinolone 1 applic TOPICAL BID PRN PRN #12 09/01/16 10/27/21 History box OneTouch Ultra Test #400 strip 10/18/16 03/19/21 History prochlorperazine maleate 10 mg PO Q6H PRN 03/19/21 10/27/21 History sennosides [senna] 17.2 mg PO BID 03/19/21 10/27/21 History Fleet Enema 118 ml VT ONCE PRN 03/20/21 10/27/21 History cyanocobalamin (vitamin B-12) 500 mcg PO DAILY #30 tab 03/22/21 10/27/21 Rx [Vitamin B-12] Tresiba FlexTouch U-100 52 unit SQ QAM 05/19/21 10/27/21 History insulin lispro [Humalog KwikPen 0 - 6 unit SUBCUT PRN PRN 05/19/21 10/27/21 History Insulin] metoprolol tartrate 12.5 mg PO BID #60 tab 05/21/21 10/27/21 Rx docusate sodium 100 mg PO DAILY 08/11/21 10/27/21 History furosemide 20 mg PO BID 08/11/21 10/27/21 History hydrocodone-acetaminophen 1 tab PO Q6H PRN 08/11/21 10/27/21 History losartan 50 mg PO DAILY 08/11/21 10/27/21 History pyridoxine (vitamin B6) [Vitamin 25 mg PO DAILY 08/11/21 10/27/21 History B-6] calcium carbonate [Tums 500] 500 mg PO DAILY PRN 10/27/21 10/27/21 History ondansetron HCl 8 mg PO Q8H PRN PRN 10/27/21 10/27/21 History polyethylene glycol 3350 17 g PO DAILY PRN PRN 10/27/21 10/27/21 History Exam Const General: cooperative, comfortable, no acute distress and not ill appearing Nutritional Appearance: overweight Orientation: alert, awake and oriented x3 Neck Neck: normal visual inspection, no lymphadenopathy and no JVD Resp Effort & Inspection: normal respiratory effort and able to speak in complete sentences Auscultation: no rales, no rhonchi and no wheezes Cardio Jugular venous pressure: no JVD Rate: regular rate Rhythm: regular rhythm Heart Sounds: S1 normal, S2 normal, no gallops and no murmurs GI Palpation: soft, no hepatosplenomegaly, not firm and nontender Extrem Right lower extremity: edema Left lower extremity: no edema Other: She has normal strength above lower extremities. There is edema of the right lower extremity and foot in the lower leg. She has intact light touch sensation over both lower extremities. She moves each of them quite normally. Results Labs Result diagrams: 10/27/21 15:45 10/27/21 15:45 Labs: Laboratory Results - last 24 hr 10/27/21 10/27/21 10/27/21 15:45 15:45 15:45 WBC 10.82 H RBC 3.82 L Hgb 10.6 L Hct 34.1 L MCV 89.3 MCH 27.7 MCHC 31.1 L RDW 14.6 Plt Count 243 MPV 10.8 Immature Gran % 0.6 Neutrophils % 81.0 Lymphocytes % 11.0 Monocytes % 5.5 Eosinophils % 1.4 Basophils % 0.5 Nucleated RBC % 0 Absolute Neutrophils 8.76 H Absolute Lymphocytes 1.19 L Absolute Monocytes 0.60 Absolute Eosinophils 0.15 Absolute Basophils 0.05 PT 9.8 INR 1.0 APTT 22.0 Sodium 136 Potassium 5.0 Chloride 103 Carbon Dioxide 24.4 Anion Gap 8.6 BUN 49 H Creatinine 1.6 H Estimated GFR/1.73 m2 32.15 Glucose 277 H Calcium 8.6 Magnesium 2.0 Total Bilirubin 0.3 AST 30 ALT 30 Alkaline Phosphatase 100 NT-Pro-B Natriuret Pep Total Protein 7.0 Albumin 3.0 L COVID-19 Source 10/27/21 10/27/21 15:45 17:00 WBC RBC Hgb Hct MCV MCH MCHC RDW Plt Count MPV Immature Gran % Neutrophils % Lymphocytes % Monocytes % Eosinophils % Basophils % Nucleated RBC % Absolute Neutrophils Absolute Lymphocytes Absolute Monocytes Absolute Eosinophils Absolute Basophils PT INR APTT Sodium Potassium Chloride Carbon Dioxide Anion Gap BUN Creatinine Estimated GFR/1.73 m2 Glucose Calcium Magnesium Total Bilirubin AST ALT Alkaline Phosphatase NT-Pro-B Natriuret Pep 1357 H Total Protein Albumin COVID-19 Source Nasal/Nares Last Vital Signs Temp 37.2 C 10/27/21 19:24 Pulse 105 H 10/27/21 19:24 Resp 18 12/01/21 19:24 BP 162/90 H 10/27/21 19:24 Pulse Ox 94 10/27/21 19:24
[2021-10-27] MEDS: Docusate Sodium 100 MG CAP PO (20:43)
[2021-10-27] MEDS: Polyethylene Glycol 3350 17 GM PACKET PO (20:43)
[2021-10-27 21:48] LABS: COVID-19 PCR Negative (Negative)
--- NOTE | 2021-10-27 22:09 | NUR.NOTE ---
Nursing Note: Bed alarms placed upon patient arrival by this RN. Patient greatly objected to MD; MD told this RN that bed alarms do not have to be on. Will continue to monitor and encourage patient to call when she needs to ambulate.
--- NOTE | 2021-10-27 22:11 | NUR.NOTE ---
Nursing Note: Patient requested all 4 bedrails be up when asked around 20:40 10/27/21.
[2021-10-27] MEDS: HYDROmorphone 2 MG TAB 1 MG PO (22:17)
--- NOTE | 2021-10-28 | DI.MRI_ITS ---
Exam(s) MR LUMBAR SPINE WO/W EXAM: MR LUMBAR SPINE WO/W CLINICAL HISTORY: abnormal CT; hx urothelial cancer; r/o lumbar met. TECHNIQUE: Multiplanar multisequence MRI of the Lumbar spine was performed. Both pre and post contra st infused sequences performed. Intravenous con injected was 20 mL Dotarem COMPARISON: FINDINGS: Conus medullaris is at normal level. There is no evidence of conus mass nor subjacent clumping of in trathecal nerve roots to suggest arachnoiditis. The distal thecal sac appears unremarkable.There is no evidence of Tarlov intrasacral cysts nor other significant findings within the sacral canal With respect to the individual levels... T12-L1: Unremarkable L1-2: Normal disc height and signal. No disc herniation nor central canal stenosis.No foraminal steno sis L2-3: Normal disc height. No disc herniation nor central canal stenosis.No foraminal stenosis.No face t arthropathy. L3-4: Normal disc height. No disc herniation or central canal stenosis.No foraminal stenosis.No face t arthropathy. L4-5: Normal disc height and signal. Minimal annular bulging but no distinct disc herniation. Central canal dimensions are within normal limits. No foraminal stenosis. There are moderate degenerative ch anges in the facet joints. L5-S1: Preserved disc height and signal. Very mild degenerative anterolisthesis L5 upon S1, related t o degenerative changes in the facet joints. Soft tissues: paraspinal soft tissues appear unremarkable.Right kidney not seen and is presumed to b e surgically absent. Bones:No evidence of fracture. However, there are findings in the L5 and S1 vertebral bodies. Both ex hibit hypo intense lesions T1 and T2 images although the STIR sequences reveal mild surrounding incre ased signal. Also some mild surrounding enhancement following contrast injection at both sites in L5 and S1 vertebral bodies. Therefore less likely to represent benign bone island and possibly represent ing sclerotic-blastic lesions, possibly metastatic. IMPRESSION: 1. There are 2 similar appearing findings in L5 and S1 vertebral bodies as described above, correspon ding to the sclerotic density seen on CT scan of July 2021. The larger of the 2 is in the S1 amaury tebral body and measures approximately 1.3 x 1.2 cm. These exhibit some mild surrounding increased si gnal and enhancement and therefore may not be typical benign bone island but possibly blastic lesions . Recommend follow-up whole body nuclear bone scan to determine if these exhibit increased radiopharm aceutical uptake and to determine if there are other significant possible bone lesions elsewhere in t he skeleton. 2. No significant disc herniations. No central canal stenosis. No significant foraminal stenosis. 3. Right kidney appears to be absent DATA REPOSITORY:
[2021-10-28] MEDS: Calcium Carbonate *TUMS* 500 MG CHEW PO ×2 (00:18→05:31)
[2021-10-28] MEDS: Normal Saline Flush 10 ML SYR IVP ×2 (05:31→12:10)
[2021-10-28 07:15] VITALS: BP 153/83; PULSE 88; RESP 18; TEMP 36.5; O2SAT 95
[2021-10-28] MEDS: Furosemide 20 MG TAB PO (08:00)
[2021-10-28] MEDS: HYDROcodone 5/Acetaminophen 325 TAB PO (08:41)
[2021-10-28] MEDS: Metoprolol 12.5 MG TAB PO (08:42)
[2021-10-28] MEDS: Docusate Sodium 100 MG CAP PO (08:43)
[2021-10-28] MEDS: Senna TAB 1 TAB PO (08:43)
[2021-10-28] MEDS: Polyethylene Glycol 3350 17 GM PACKET PO (08:43)
[2021-10-28] MEDS: Losartan 50 MG TAB PO (08:43)
--- NOTE | 2021-10-28 09:00 | PDOC.CMIN ---
- If Service Date Differs Date of service: 10/28/21 Time of Service: 09:00 Care Management Initial Assess REASON FOR HOSPITALIZATION:: DVT PAST MEDICAL HISTORY/PAST SURGICAL HISTORY:: Active Problem List . Mental health disorder (Chronic). Folate deficiency (Acute). Acute kidney injury superimposed on chronic kidney disease (Acute). Acute on chronic anemia (Acute). Hypertension (Chronic). Anxiety (Chronic). Constipation (Acute). Reflux esophagitis (Acute). Acute on chronic diastolic CHF (congestive heart failure), NYHA class 1 (Chronic). Chest pain (Acute). Pericardial effusion (Acute). Elevated troponin (Acute). Acute anemia (Acute). Thrombocytopenia (Acute). Bandemia (Acute). Diastolic heart failure (Acute). Peripheral neuropathy (Chronic). Superficial thrombophlebitis of right upper extremity (Acute). Urothelial carcinoma (Acute). Acute pulmonary edema (Acute). IDDM (insulin dependent diabetes mellitus) (Chronic). Discharge planning issues (Acute). DVT prophylaxis (Acute). Ureteral cancer (Acute). Acute CHF (Acute). Leukocytosis (Acute). Bilateral lower extremity edema (Acute). Pericardial effusion (Acute). UTI (urinary tract infection) (Acute). Kidney mass (Acute). Flank pain (Acute). Medical History . Depression. Diabetes. Gastritis and duodenitis. GERD (gastroesophageal reflux disease). History of colon polyps. Hyperlipidemia. Obesity. Osteoarthritis. Surgical History . Abdominal hysterectomy (~11/2010). for fibroid. Bilateral salpingectomy with oophorectomy. Biopsy of breast. cyst excised-left. section. Colonoscopy - MAC (01/10/17). EGD - MAC (01/10/17). Extraction of cataract (11/10/16). LEFT EYE; DR. MORRIS. Hemorrhoidectomy. and anal fissure repair. Hernia Repair, Incisional. OOPHRECTOMY, UNILATERAL (~1991). , Ectopic (~1991) PREVIOUS FUNCTIONAL STATUS/SOCIAL/FAMILY SUPPORTS:: Nancy lives with her Derek in [facility] in [place]. They have a cat and a dog at home, and a daughter who lives about an hour away with 4 year old twin girls. 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 Nancy requires assistance with ADLs, cooking, showering etc. She has some caregivers and home health support. CURRENT FUNCTIONAL STATUS:: Nancy was sittiing up in a chair when CM met with her. She was open to conversation and freely answered questions. Nancy had surgery for ureteral cancer about a year ago and underwent a nephrectomy followed by chemo. She shared that the treatments were very difficult but that she did well. On this admission she has learned that she may have a new cancer in her spine. She expressed concern because it is in the bone and is already causing her pain. She will be scheduled to go to [facility] for a biopsy and also will have an appointment at the pain clinic. Nancy is essentially wheelchair bound but is able to transfer from bed to chair and to the commode. She uses a walker as well but can only walk a few feet. ADVANCE DIRECTIVES:: None on file Has patient been provided with info about the portal/API?: Yes Did the patient sign up for the portal?: No CODE STATUS:: Full Code INSURANCE COVERAGE / FINANCIAL ISSUES:: Medicare. BC BS CURRENT HOME/COMMUNITY SERVICES/EQUIPMENT:: Home health nursing, PT, OT. She has an aide for 1 hour twice a week. nancy also has a wheelchair, walker, commode and shower chair PRIMARY CARE PHYSICIAN:: Derek Torres POTENTIAL DISCHARGE NEEDS:: Follow up with PCP, Oncology and other community providers PATIENT/FAMILY EDUCATION NEEDS:: Review of discharge instructions, medications, activity, limitations, follow up plan and Ask Me Three TRANSPORTATION:: via private vehicle PLAN:: Nancy will be discharged home with a resumption of services. She will transport with her family and follow up with her community providers, both locally and at [facility].
[2021-10-28] MEDS: Insulin Glargine 300 UNITS/3 ML PEN 26 UNITS SC (11:02)
[2021-10-28 12:08] LABS: PTT Activated 151.8 sec (21.0-27.5)
[2021-10-28] MEDS: Gadoterate meglumine 20 ML VIAL IVP (12:11)
[2021-10-28] MEDS: HYDROmorphone 2 MG TAB 1 MG PO (12:39)
--- NOTE | 2021-10-28 14:33 | CHAPLAIN ---
Nancy was resting in bed when I visited. 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 Nancy said she had stage 4 bladder cancer, and has recuperated from that but recently a spot was found on her spine. She is waiting to go to [facility] for a biopsy soon. Since beating cancer, Nancy said her perspective on bertha and jew have changed, mostly in a way to affirm her beliefs. 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 She lives in [place] with her .
--- NOTE | 2021-10-28 15:08 | DSE_ITS ---
Date of service: 10/28/21 Time of Service: 17:06 DS: Diagnosis Discharge Diagnosis (1) DVT (deep venous thrombosis): Status: Chronic (2) Bone tumor: Status: Acute Discharge Plan Disposition Patient Disposition: HOME Condition: Stable Discharge Details Reason For Visit: R LE DVT Admit Date/Time: 10/27/21 18:15 Admit Provider: Bobo Hunter Attending Provider: Bobo Hunter Primary Care Provider: Derek Torres Hospital Course Hospital Course: This is a 66 year old female with extensive medical history but includes urothelial cancer s/p nephrectomy, and upper extremity DVT treated with apixaban which she has stopped taking since her nephrectomy, who was referred to the ED for lower extremity pain and swelling, positive for DVT. Her case was discussed with heme-onc at [facility] and d/t recent lower ext weakness and findings on a CT scan of suspected lytic lesions, it was recommended that she be admitted to MRI to r/o compression syndrome. the rest of her work up was unremarkable. Her MRI showed no additional findings other than the 2 known lesions. she is to have biopsy of these at [facility] to be scheduled. Her MRI findings are discussed with hem-onc and recommendations are to proceed with outpatient appointment for biopsy and that a DOAC would be recommended for treatment of her DVT. she is discharged to home with no services. she will begin eliquis which was previously tolerated. also discussed her pain management, which she reports is worse at night making it difficult to sleep. she has tried gabapentin which she did not tolerate, she would prefer non narcotic or less sedative medication. we discussed sleep aid which is is agreeable to try. she would also like to f/u with pain clinic at [facility] and her hemonc team for pain management. discharge discussed with Dr Kirk Home Meds and New Rx's Prescriptions: New Eliquis 5 mg tablet 5 mg PO BID Qty: 70 RF: 0 zolpidem [Ambien] 5 mg tablet 5 mg PO QHS PRNQty: 30 RF: 0 melatonin 3 mg tablet 3 mg PO HS PRNQty: 30 RF: 0 Continued cholecalciferol (vitamin D3) 1,000 UNIT capsule 1,000 iu PO QAM Qty: 100 RF: 4 nystatin-triamcinolone 15 GM cream 1 applic Topical BID PRN PRNQty: 12 RF: 3 (DME) OneTouch Ultra Test 1 EACH strip 1 ea Miscellaneous ac and hs Qty: 400 RF: 4 prochlorperazine maleate 10 mg tablet 10 mg PO Q6H PRNRF: 0 sennosides [senna] 8.6 mg tablet 17.2 mg PO BID RF: 0 Fleet Enema 19-7 gram/118 mL Enema 118 ml IA ONCE PRNRF: 0 cyanocobalamin (vitamin B-12) [Vitamin B-12] 500 mcg Tablet 500 mcg PO DAILY Qty: 30 RF: 0 furosemide 20 mg tablet 20 mg PO BID RF: 0 losartan 100 mg tablet 50 mg PO DAILY RF: 0 pyridoxine (vitamin B6) [Vitamin B-6] 25 mg tablet 25 mg PO DAILY RF: 0 docusate sodium 100 mg Capsule 100 mg PO DAILY RF: 0 hydrocodone-acetaminophen 5-325 mg Tablet 1 tab PO Q6H PRNRF: 0 polyethylene glycol 3350 17 gram powder in packet 17 g PO DAILY PRN PRNRF: 0 ondansetron HCl 8 mg tablet 8 mg PO Q8H PRN PRNRF: 0 calcium carbonate 500 mg calcium (1,250 mg) Tablet,Chewable 500 mg PO DAILY PRNRF: 0 Tresiba FlexTouch U-100 100 UNIT/1 ML insulin pen 52 unit SQ QAM RF: 0 insulin lispro [Humalog KwikPen Insulin] 100 unit/mL insulin pen 0 - 6 unit SUBCUT PRN PRNRF: 0 metoprolol tartrate 25 mg Tablet 12.5 mg PO BID Qty: 60 RF: 0 Discharge Instructions Instructions: Back Pain (ED) Stand Alone Forms: Nursing Discharge Form Referrals: Alberto Bhatia [ NON-[facility] STAFF PHYSICIAN] - 11/16/21 11:30 am Activity:: Activity as Tolerated Equipment/Supplies:: No Equipment Needed Diet:: As Tolerated Discharge Orders Discharge Orders: Discharge Order (Routine); Ordered 10/28/21 Ordered By: Tamera Tom Discharge Data Discharge Date/Time-TO BE ENTERED AT DEPARTURE: 10/28/21 16:35 DS: Summary Time Spent with Patient providing and/or coordinating discharge services: Greater than 30 minutes Status at Discharge Functional status at discharge: independent ambulation Overall status at discharge: patient is not back to baseline Mental Status: mental status grossly normal Speech and Movement: speech and movement normal Mood: congruent mood Affect: normal affect Exam Const General: cooperative, comfortable, no acute distress and not ill appearing Nutritional Appearance: overweight Orientation: alert, awake and oriented x3 Neck Neck: normal visual inspection, no lymphadenopathy and no JVD Resp Effort & Inspection: normal respiratory effort and able to speak in complete sentences Auscultation: no rales, no rhonchi and no wheezes Cardio Jugular venous pressure: no JVD Rate: regular rate Rhythm: regular rhythm Heart Sounds: S1 normal, S2 normal, no gallops and no murmurs GI Palpation: soft, no hepatosplenomegaly, not firm and nontender Extrem Right lower extremity: edema Left lower extremity: no edema Psych Mental Status: mental status grossly normal Speech and Movement: speech and movement normal Mood: congruent mood Affect: normal affect DS: Data Vitals/I&O Vitals and I&O: Vital Signs Temperature 36.5 C 10/28/21 07:15 Temperature Source Tympanic 10/28/21 07:15 Pulse 88 10/28/21 07:15 Pulse Rhythm Regular 10/28/21 09:08 Pulse 105 H 10/27/21 19:02 Respiratory Rate 18 10/28/21 07:15 Respiratory Effort Non-Labored 10/28/21 09:08 Respiratory Depth Normal 10/28/21 09:08 Respiratory Pattern Normal 10/28/21 09:08 Blood Pressure 153/83 H 10/28/21 07:15 Blood Pressure Mean 156 10/27/21 19:01 Pulse Oximetry 95 10/28/21 07:15 Oxygen Delivery Method Room Air 10/28/21 07:15 Oxygen Flow Rate 0 10/28/21 07:15 Pain Level 7 10/28/21 12:39 Comment 10/27/21 15:26 Intake & Output 10/27/21 10/28/21 10/28/21 23:59 11:59 23:59 Intake Total 677.5 / 677.5 626 / 626 Output Total 1050 / 1050 1900 / 2700 800 / 2700 Balance -372.5 / -372.5 -1900 / -2074 -174 / -4 Weight 98.883 kg Intake: IV 577.5 / 577.5 136 / 136 Oral 100 / 100 490 / 490 Output: Urine 1050 / 1050 1900 / 2700 800 / 2700 Other: Urine Color Straw Yellow Yellow Urine Appearance Clear Cloudy Clear Urine Odor Normal Normal Normal Stool Size Large Stool Characteristics Formed Hard Brown Voiding Methods Toilet Toilet Bedside Commode Data Completed and Pending Labs on day of discharge: Labs from last 24 hours 10/28/21 10/28/21 10/27/21 18:35 11:00 17:00 WBC RBC Hgb Hct MCV MCH MCHC RDW Plt Count MPV Immature Gran % Neutrophils % Lymphocytes % Monocytes % Eosinophils % Basophils % Nucleated RBC % Absolute Neutrophils Absolute Lymphocytes Absolute Monocytes Absolute Eosinophils Absolute Basophils PT INR APTT Pending 151.8 H* Sodium Potassium Chloride Carbon Dioxide Anion Gap BUN Creatinine Estimated GFR/1.73 m2 Glucose Calcium Magnesium Total Bilirubin AST ALT Alkaline Phosphatase NT-Pro-B Natriuret Pep Total Protein Albumin COVID-19 Source Nasal/Nares SARS-CoV-2 (PCR) Negative 10/27/21 10/27/21 10/27/21 15:45 15:45 15:45 WBC 10.82 H RBC 3.82 L Hgb 10.6 L Hct 34.1 L MCV 89.3 MCH 27.7 MCHC 31.1 L RDW 14.6 Plt Count 243 MPV 10.8 Immature Gran % 0.6 Neutrophils % 81.0 Lymphocytes % 11.0 Monocytes % 5.5 Eosinophils % 1.4 Basophils % 0.5 Nucleated RBC % 0 Absolute Neutrophils 8.76 H Absolute Lymphocytes 1.19 L Absolute Monocytes 0.60 Absolute Eosinophils 0.15 Absolute Basophils 0.05 PT 9.8 INR 1.0 APTT 22.0 Sodium Potassium Chloride Carbon Dioxide Anion Gap BUN Creatinine Estimated GFR/1.73 m2 Glucose Calcium Magnesium Total Bilirubin AST ALT Alkaline Phosphatase NT-Pro-B Natriuret Pep 1357 H Total Protein Albumin COVID-19 Source SARS-CoV-2 (PCR) 10/27/21 15:45 WBC RBC Hgb Hct MCV MCH MCHC RDW Plt Count MPV Immature Gran % Neutrophils % Lymphocytes % Monocytes % Eosinophils % Basophils % Nucleated RBC % Absolute Neutrophils Absolute Lymphocytes Absolute Monocytes Absolute Eosinophils Absolute Basophils PT INR APTT Sodium 136 Potassium 5.0 Chloride 103 Carbon Dioxide 24.4 Anion Gap 8.6 BUN 49 H Creatinine 1.6 H Estimated GFR/1.73 m2 32.15 Glucose 277 H Calcium 8.6 Magnesium 2.0 Total Bilirubin 0.3 AST 30 ALT 30 Alkaline Phosphatase 100 NT-Pro-B Natriuret Pep Total Protein 7.0 Albumin 3.0 L COVID-19 Source SARS-CoV-2 (PCR) [facility] Active Problem List Mental health disorder (Chronic) Folate deficiency (Acute) Acute kidney injury superimposed on chronic kidney disease (Acute) Acute on chronic anemia (Acute) Hypertension (Chronic) Anxiety (Chronic) Constipation (Acute) Reflux esophagitis (Acute) Acute on chronic diastolic CHF (congestive heart failure), NYHA class 1 (Chronic) Chest pain (Acute) Pericardial effusion (Acute) Elevated troponin (Acute) Acute anemia (Acute) Thrombocytopenia (Acute) Bandemia (Acute) Diastolic heart failure (Acute) Peripheral neuropathy (Chronic) Superficial thrombophlebitis of right upper extremity (Acute) Urothelial carcinoma (Acute) Acute pulmonary edema (Acute) IDDM (insulin dependent diabetes mellitus) (Chronic) Discharge planning issues (Acute) DVT prophylaxis (Acute) Ureteral cancer (Acute) Acute CHF (Acute) Leukocytosis (Acute) Bilateral lower extremity edema (Acute) Pericardial effusion (Acute) UTI (urinary tract infection) (Acute) Kidney mass (Acute) Flank pain (Acute) Medical History Depression Diabetes Gastritis and duodenitis GERD (gastroesophageal reflux disease) History of colon polyps Hyperlipidemia Obesity Osteoarthritis Surgical History Abdominal hysterectomy (~11/2010) for fibroid Bilateral salpingectomy with oophorectomy Biopsy of breast cyst excised-left section Colonoscopy - MAC (01/10/17) EGD - MAC (01/10/17) Extraction of cataract (11/10/16) LEFT EYE; DR. MORRIS Hemorrhoidectomy and anal fissure repair Hernia Repair, Incisional OOPHRECTOMY, UNILATERAL (~1991) , Ectopic (~1991) Family History Mother Personal history of malignant neoplasm UTERINE Father Personal history of malignant neoplasm COLON Brother Heart disease Brother No problems noted. Brother No problems noted. Grandfather Personal history of malignant neoplasm Grandfather No problems noted. Grandmother Personal history of malignant neoplasm Stroke Grandmother Diabetes Personal history of malignant neoplasm Social History Smoking/Tobacco Use Status: Former Tobacco Use Smoking risk assessment performed?: Yes Alcohol Intake: never Drug use: Never Substance use type: does not use Details: vapor use Do you feel safe at home: Yes Do you feel safe in your relationship?: Yes
[2021-10-28] MEDS: Apixaban 5 MG TAB 10 MG PO (15:59)
== END 2021-10-28 16:35 | disposition home or self-care (01) ==
LOC: ER 19:12 → MS 20:43
PROVIDERS: Admitting Provider Family Medicine; Emergency Provider Emergency Medicine; PCP Physician Assistant; Visit Provider Family Medicine
DX: I82.431 Acute embolism and thrombosis of right popliteal vein (principal); Z79.899 Other long term (current) drug therapy; E11.22 Type 2 diabetes mellitus with diabetic chronic kidney disease; N18.9 Chronic kidney disease, unspecified; I50.9 Heart failure, unspecified; E11.42 Type 2 diabetes mellitus with diabetic polyneuropathy; C79.9 Secondary malignant neoplasm of unspecified site; Z20.822 Contact with and (suspected) exposure to COVID-19
CPT/HCPCS: 36415; 36416; 72158; 80053; 82962; 87635; 93005; 96360; 96361; 96372; 99285; 71046; 83735; 83880; 85025; 85610; 85730; 93010; 93971; 99217; 99219; 99284; G0378; J1650; J3490

== ENCOUNTER 2021-11-16 10:33 | Outpatient (CLI) | payer BC, MEDICARE, SELFPAY ==
[2021-11-16 10:33] LABS: Abs Immature Grans 0.07 10^3/uL (0.0-0.06); Absolute Basophil Count 0.07 10^3/uL (0.0-0.2); Absolute Eosinophil Count 0.29 10^3/uL (0.0-0.7); Absolute Lymphocyte Count 1.85 10^3/uL (1.2-3.4); Absolute Neutrophil Count 7.71 10^3/uL (1.2-6.7); Basophils % 0.7; Eosinophils % 2.7; HCT 35.3 % (36.0-46.0); Immature Grans % 0.7; Lymphocytes % 17.3; MCH 28.1 pg (27.0-33.0); MCHC 31.2 % (32.0-36.0); MCV 90.3 fL (80-95); MPV 10.5 fL (8.0-11.0); Monocytes % 6.5; Neutrophils % 72.1; Nucleated RBC 0 %; Platelet Count 286 10^3/uL (130-400); RBC 3.91 10^6/uL (3.93-5.22); RDW 14.2 % (11.7-14.6); WBC 10.69 10^3/uL (4.4-10.8)
[2021-11-16 10:56] LABS: ALT 41 U/L (14-59); AST 13 U/L (15-37); Albumin 3.3 g/dL (3.4-5.0); Alkaline Phosphatase 96 U/L (46-116); Anion Gap 6.3 mmol/L (3-11); BUN 44 mg/dL (7-18); Bilirubin, Total 0.3 mg/dL (0.2-1.0); CO2 29.7 mmol/L (21.0-32.0); CREATININE 1.6 mg/dL (0.55-1.02); Calcium 9.4 mg/dL (8.5-10.1); Chloride 103 mmol/L (98-107); Estimated GFR 32.15 (mL/min/1.73m2); Glucose 110 mg/dL (74-106); Potassium 4.7 mmol/L (3.5-5.1); Sodium 139 mmol/L (136-145); Total Protein 7.3 g/dL (6.4-8.2)
== END 2021-11-16 10:34 | disposition home or self-care (01) ==
LOC: LBO 10:35
PROVIDERS: PCP Physician Assistant; Visit Provider Internal Medicine
DX: C67.9 Malignant neoplasm of bladder, unspecified (principal)
CPT/HCPCS: 36415; 80053; 83735; 85025

== ENCOUNTER 2021-11-23 11:07 | Outpatient (CLI) | payer BC, MEDICARE, SELFPAY ==
[2021-11-23 10:50] LABS: Abs Immature Grans 0.09 10^3/uL (0.0-0.06); Absolute Basophil Count 0.07 10^3/uL (0.0-0.2); Absolute Eosinophil Count 0.37 10^3/uL (0.0-0.7); Absolute Lymphocyte Count 1.85 10^3/uL (1.2-3.4); Absolute Monocyte Count 0.71 10^3/uL (0.1-0.8); Absolute Neutrophil Count 8.47 10^3/uL (1.2-6.7); Basophils % 0.6; Eosinophils % 3.2; HCT 35.6 % (36.0-46.0); HGB 10.9 g/dL (11.2-15.7); Immature Grans % 0.8; MCH 27.8 pg (27.0-33.0); MCHC 30.6 % (32.0-36.0); MCV 90.8 fL (80-95); MPV 9.7 fL (8.0-11.0); Monocytes % 6.1; Neutrophils % 73.3; Nucleated RBC 0 %; Platelet Count 294 10^3/uL (130-400); RBC 3.92 10^6/uL (3.93-5.22); RDW-SD 46.5 fL; WBC 11.56 10^3/uL (4.4-10.8)
[2021-11-23 11:11] LABS: ALT 36 U/L (14-59); AST 13 U/L (15-37); Albumin 3.1 g/dL (3.4-5.0); Alkaline Phosphatase 108 U/L (46-116); Anion Gap 7.5 mmol/L (3-11); BUN 30 mg/dL (7-18); Bilirubin, Total 0.2 mg/dL (0.2-1.0); CO2 27.5 mmol/L (21.0-32.0); CREATININE 1.4 mg/dL (0.55-1.02); Calcium 7.8 mg/dL (8.5-10.1); Chloride 104 mmol/L (98-107); Estimated GFR 37.51 (mL/min/1.73m2); Glucose 109 mg/dL (74-106); Magnesium 2.8 mg/dL (1.8-2.4); Potassium 4.6 mmol/L (3.5-5.1); Sodium 139 mmol/L (136-145); Total Protein 7.7 g/dL (6.4-8.2)
[2021-11-23 12:29] LABS: Bilirubin Negative (Negative); Blood Small (Negative); Clarity Cloudy (Clear); Glucose Negative (Negative); Ketones Negative (Negative); Leukocyte Esterase Moderate (Negative); Nitrite Positive (Negative); Specific Gravity 1.015 (1.005-1.025); Urobilinogen 0.2 EU/dL (Up TO 0.2)
[2021-11-23 12:40] LABS: Bacteria Many HPF (Negative); C & S Indicated? C&S Done As Ordered
[2021-11-23 12:41] LABS: WBC >50 HPF (0-5)
== END 2021-11-23 11:08 | disposition home or self-care (01) ==
LOC: LBO 11:07
PROVIDERS: Nurse Practitioner Adult Health; PCP Physician Assistant; Visit Provider Internal Medicine
DX: C79.10 Secondary malignant neoplasm of unspecified urinary organs (principal); C67.9 Malignant neoplasm of bladder, unspecified
CPT/HCPCS: 36415; 80053; 87077; 81003; 81015; 83735; 85025; 87086; 87186

== ENCOUNTER 2021-12-01 04:07 | Outpatient (CLI) | payer BC, MEDICARE, SELFPAY ==
[2021-12-01 08:50] LABS: Abs Immature Grans 0.08 10^3/uL (0.0-0.06); Absolute Basophil Count 0.06 10^3/uL (0.0-0.2); Absolute Eosinophil Count 0.31 10^3/uL (0.0-0.7); Absolute Lymphocyte Count 1.52 10^3/uL (1.2-3.4); Absolute Neutrophil Count 7.11 10^3/uL (1.2-6.7); Basophils % 0.6; Eosinophils % 3.2; HCT 36.4 % (36.0-46.0); HGB 11.2 g/dL (11.2-15.7); Immature Grans % 0.8; Lymphocytes % 15.5; MCH 27.9 pg (27.0-33.0); MCHC 30.8 % (32.0-36.0); MCV 90.8 fL (80-95); MPV 9.7 fL (8.0-11.0); Monocytes % 7.2; Neutrophils % 72.7; Nucleated RBC 0 %; Platelet Count 270 10^3/uL (130-400); RBC 4.01 10^6/uL (3.93-5.22); RDW-SD 46.5 fL; WBC 9.78 10^3/uL (4.4-10.8)
[2021-12-01 09:08] LABS: ALT 24 U/L (14-59); AST 14 U/L (15-37); Albumin 3.2 g/dL (3.4-5.0); Alkaline Phosphatase 98 U/L (46-116); Anion Gap 6.2 mmol/L (3-11); BUN 50 mg/dL (7-18); Bilirubin, Total 0.3 mg/dL (0.2-1.0); CO2 26.8 mmol/L (21.0-32.0); CREATININE 1.9 mg/dL (0.55-1.02); Calcium 8.8 mg/dL (8.5-10.1); Chloride 105 mmol/L (98-107); Estimated GFR 26.37 (mL/min/1.73m2); Glucose 115 mg/dL (74-106); Potassium 5.2 mmol/L (3.5-5.1); Sodium 138 mmol/L (136-145); Total Protein 7.3 g/dL (6.4-8.2)
== END 2021-12-01 04:08 | disposition home or self-care (01) ==
LOC: LBO 04:07
PROVIDERS: PCP Physician Assistant; Visit Provider Internal Medicine
DX: C67.9 Malignant neoplasm of bladder, unspecified (principal)
CPT/HCPCS: 36415; 80053; 83735; 85025

== ENCOUNTER 2021-12-07 02:34 | Outpatient (CLI) | payer BC, MEDICARE, SELFPAY ==
[2021-12-07 08:49] LABS: Abs Immature Grans 0.03 10^3/uL (0.0-0.06); Absolute Basophil Count 0.08 10^3/uL (0.0-0.2); Absolute Eosinophil Count 0.25 10^3/uL (0.0-0.7); Absolute Lymphocyte Count 1.44 10^3/uL (1.2-3.4); Absolute Monocyte Count 0.55 10^3/uL (0.1-0.8); Absolute Neutrophil Count 5.87 10^3/uL (1.2-6.7); HGB 10.9 g/dL (11.2-15.7); Immature Grans % 0.4; Lymphocytes % 17.5; MCHC 30.3 % (32.0-36.0); MCV 92.5 fL (80-95); MPV 9.9 fL (8.0-11.0); Monocytes % 6.7; Neutrophils % 71.4; Nucleated RBC 0 %; Platelet Count 254 10^3/uL (130-400); RBC 3.89 10^6/uL (3.93-5.22); RDW 13.9 % (11.7-14.6); RDW-SD 47.2 fL; WBC 8.22 10^3/uL (4.4-10.8)
[2021-12-07 09:02] LABS: ALT 23 U/L (14-59); AST 15 U/L (15-37); Alkaline Phosphatase 97 U/L (46-116); Anion Gap 7.8 mmol/L (3-11); BUN 39 mg/dL (7-18); Bilirubin, Total 0.3 mg/dL (0.2-1.0); CO2 24.2 mmol/L (21.0-32.0); CREATININE 1.8 mg/dL (0.55-1.02); Calcium 7.5 mg/dL (8.5-10.1); Chloride 107 mmol/L (98-107); Estimated GFR 28.07 (mL/min/1.73m2); Glucose 150 mg/dL (74-106); Magnesium 2.4 mg/dL (1.8-2.4); Potassium 5.1 mmol/L (3.5-5.1); Sodium 139 mmol/L (136-145)
== END 2021-12-07 02:35 | disposition home or self-care (01) ==
LOC: LBO 02:34
PROVIDERS: PCP Physician Assistant; Visit Provider Internal Medicine
DX: C67.9 Malignant neoplasm of bladder, unspecified (principal)
CPT/HCPCS: 36415; 80053; 83735; 85025

== ENCOUNTER 2021-12-14 02:29 | Outpatient (CLI) | payer BC, MEDICARE, SELFPAY ==
[2021-12-14 09:06] LABS: Abs Immature Grans 0.04 10^3/uL (0.0-0.06); Absolute Basophil Count 0.06 10^3/uL (0.0-0.2); Absolute Eosinophil Count 0.44 10^3/uL (0.0-0.7); Absolute Lymphocyte Count 1.44 10^3/uL (1.2-3.4); Absolute Monocyte Count 0.66 10^3/uL (0.1-0.8); Absolute Neutrophil Count 6.11 10^3/uL (1.2-6.7); Basophils % 0.7; HCT 37.5 % (36.0-46.0); HGB 11.3 g/dL (11.2-15.7); Immature Grans % 0.5; Lymphocytes % 16.5; MCH 27.8 pg (27.0-33.0); MCHC 30.1 % (32.0-36.0); MCV 92.4 fL (80-95); MPV 10.6 fL (8.0-11.0); Monocytes % 7.5; Neutrophils % 69.8; Nucleated RBC 0 %; Platelet Count 251 10^3/uL (130-400); RBC 4.06 10^6/uL (3.93-5.22); RDW 13.2 % (11.7-14.6); WBC 8.75 10^3/uL (4.4-10.8)
[2021-12-14 09:39] LABS: ALT 26 U/L (14-59); AST 11 U/L (15-37); Alkaline Phosphatase 92 U/L (46-116); Anion Gap 6.5 mmol/L (3-11); BUN 40 mg/dL (7-18); Bilirubin, Total 0.3 mg/dL (0.2-1.0); CO2 27.5 mmol/L (21.0-32.0); CREATININE 1.7 mg/dL (0.55-1.02); Calcium 8.5 mg/dL (8.5-10.1); Chloride 103 mmol/L (98-107); Estimated GFR 29.98 (mL/min/1.73m2); FREE T4 1.15 ng/dL (0.76-1.46); Glucose 307 mg/dL (74-106); Magnesium 1.9 mg/dL (1.8-2.4); Potassium 5.4 mmol/L (3.5-5.1); Sodium 137 mmol/L (136-145); TSH 2.61 uIU/mL (0.36-3.74); Total Protein 6.4 g/dL (6.4-8.2)
== END 2021-12-14 02:30 | disposition home or self-care (01) ==
LOC: LBO 02:29
PROVIDERS: PCP Physician Assistant; Visit Provider Internal Medicine
DX: C67.9 Malignant neoplasm of bladder, unspecified (principal); C79.10 Secondary malignant neoplasm of unspecified urinary organs; Z79.899 Other long term (current) drug therapy
CPT/HCPCS: 36415; 80053; 83735; 84439; 84443; 85025

== ENCOUNTER 2021-12-21 04:00 | Outpatient (CLI) | payer BC, MEDICARE, SELFPAY ==
[2021-12-21 11:13] LABS: Abs Immature Grans 0.04 10^3/uL (0.0-0.06); Absolute Basophil Count 0.06 10^3/uL (0.0-0.2); Absolute Eosinophil Count 0.43 10^3/uL (0.0-0.7); Absolute Monocyte Count 0.72 10^3/uL (0.1-0.8); Absolute Neutrophil Count 6.76 10^3/uL (1.2-6.7); Basophils % 0.6; Eosinophils % 4.6; HCT 37.5 % (36.0-46.0); HGB 11.7 g/dL (11.2-15.7); Immature Grans % 0.4; MCHC 31.2 % (32.0-36.0); MCV 89.7 fL (80-95); MPV 10.9 fL (8.0-11.0); Monocytes % 7.7; Neutrophils % 72.7; Nucleated RBC 0 %; Platelet Count 261 10^3/uL (130-400); RBC 4.18 10^6/uL (3.93-5.22); RDW 13.2 % (11.7-14.6); RDW-SD 43.4 fL; WBC 9.31 10^3/uL (4.4-10.8)
[2021-12-21 11:16] LABS: ALT 26 U/L (14-59); AST 14 U/L (15-37); Albumin 2.9 g/dL (3.4-5.0); Alkaline Phosphatase 93 U/L (46-116); Anion Gap 5.9 mmol/L (3-11); BUN 30 mg/dL (7-18); Bilirubin, Total 0.3 mg/dL (0.2-1.0); CO2 26.1 mmol/L (21.0-32.0); CREATININE 1.7 mg/dL (0.55-1.02); Calcium 8.3 mg/dL (8.5-10.1); Chloride 103 mmol/L (98-107); Estimated GFR 29.98 (mL/min/1.73m2); Glucose 180 mg/dL (74-106); Magnesium 1.9 mg/dL (1.8-2.4); Potassium 5.2 mmol/L (3.5-5.1); Sodium 135 mmol/L (136-145); Total Protein 6.9 g/dL (6.4-8.2)
== END 2021-12-21 04:01 | disposition home or self-care (01) ==
LOC: LBO 04:01
PROVIDERS: PCP Physician Assistant; Visit Provider Internal Medicine
DX: C67.9 Malignant neoplasm of bladder, unspecified (principal)
CPT/HCPCS: 36415; 80053; 83735; 85025

== ENCOUNTER 2022-01-04 01:56 | Outpatient (CLI) | payer BC, MEDICARE, SELFPAY ==
[2022-01-04 09:42] LABS: Abs Immature Grans 0.04 10^3/uL (0.0-0.06); Absolute Basophil Count 0.08 10^3/uL (0.0-0.2); Absolute Eosinophil Count 0.38 10^3/uL (0.0-0.7); Absolute Lymphocyte Count 1.71 10^3/uL (1.2-3.4); Absolute Monocyte Count 0.65 10^3/uL (0.1-0.8); Absolute Neutrophil Count 5.94 10^3/uL (1.2-6.7); Basophils % 0.9; Eosinophils % 4.3; HCT 37.7 % (36.0-46.0); HGB 11.7 g/dL (11.2-15.7); Immature Grans % 0.5; Lymphocytes % 19.4; MCV 90.2 fL (80-95); MPV 10.4 fL (8.0-11.0); Monocytes % 7.4; Neutrophils % 67.5; Nucleated RBC 0 %; Platelet Count 294 10^3/uL (130-400); RBC 4.18 10^6/uL (3.93-5.22); RDW 14.1 % (11.7-14.6); RDW-SD 46.1 fL
[2022-01-04 10:16] LABS: ALT 44 U/L (14-59); AST 18 U/L (15-37); Albumin 3.2 g/dL (3.4-5.0); Alkaline Phosphatase 106 U/L (46-116); Anion Gap 8.9 mmol/L (3-11); BUN 34 mg/dL (7-18); Bilirubin, Total 0.3 mg/dL (0.2-1.0); CO2 25.1 mmol/L (21.0-32.0); CREATININE 1.7 mg/dL (0.55-1.02); Calcium 8.5 mg/dL (8.5-10.1); Chloride 105 mmol/L (98-107); Estimated GFR 29.98 (mL/min/1.73m2); FREE T4 1.19 ng/dL (0.76-1.46); Glucose 153 mg/dL (74-106); Magnesium 1.9 mg/dL (1.8-2.4); Potassium 4.7 mmol/L (3.5-5.1); Sodium 139 mmol/L (136-145); Total Protein 6.8 g/dL (6.4-8.2)
== END 2022-01-04 01:57 | disposition home or self-care (01) ==
LOC: LBO 01:58
PROVIDERS: PCP Physician Assistant; Visit Provider Internal Medicine
DX: C67.9 Malignant neoplasm of bladder, unspecified (principal); C79.10 Secondary malignant neoplasm of unspecified urinary organs; Z79.899 Other long term (current) drug therapy
CPT/HCPCS: 36415; 80053; 83735; 84439; 84443; 85025

== ENCOUNTER 2022-01-11 16:17 | Outpatient (CLI) | payer BC, MEDICARE, SELFPAY ==
[2022-01-11 11:08] LABS: Abs Immature Grans 0.05 10^3/uL (0.0-0.06); Absolute Eosinophil Count 0.29 10^3/uL (0.0-0.7); Absolute Lymphocyte Count 1.34 10^3/uL (1.2-3.4); Absolute Monocyte Count 0.82 10^3/uL (0.1-0.8); Absolute Neutrophil Count 6.09 10^3/uL (1.2-6.7); Basophils % 1.2; Eosinophils % 3.3; HCT 38.8 % (36.0-46.0); Immature Grans % 0.6; Lymphocytes % 15.4; MCH 28.3 pg (27.0-33.0); MCHC 30.9 % (32.0-36.0); MCV 91.5 fL (80-95); MPV 10.5 fL (8.0-11.0); Monocytes % 9.4; Neutrophils % 70.1; Nucleated RBC 0 %; Platelet Count 248 10^3/uL (130-400); RBC 4.24 10^6/uL (3.93-5.22); RDW 14.1 % (11.7-14.6); RDW-SD 46.6 fL; WBC 8.69 10^3/uL (4.4-10.8)
[2022-01-11 11:33] LABS: ALT 39 U/L (14-59); AST 26 U/L (15-37); Albumin 3.3 g/dL (3.4-5.0); Alkaline Phosphatase 93 U/L (46-116); Anion Gap 9.8 mmol/L (3-11); BUN 33 mg/dL (7-18); Bilirubin, Total 0.4 mg/dL (0.2-1.0); CO2 24.2 mmol/L (21.0-32.0); CREATININE 1.5 mg/dL (0.55-1.02); Calcium 8.6 mg/dL (8.5-10.1); Chloride 102 mmol/L (98-107); Estimated GFR 34.64 (mL/min/1.73m2); Glucose 174 mg/dL (74-106); Magnesium 2.4 mg/dL (1.8-2.4); Potassium 5.1 mmol/L (3.5-5.1); Sodium 136 mmol/L (136-145); TSH 2.62 uIU/mL (0.36-3.74); Total Protein 7.4 g/dL (6.4-8.2)
== END 2022-01-11 16:18 | disposition home or self-care (01) ==
LOC: LBO 16:18
PROVIDERS: PCP Physician Assistant; Visit Provider Internal Medicine
DX: C79.10 Secondary malignant neoplasm of unspecified urinary organs (principal); Z79.899 Other long term (current) drug therapy; C67.9 Malignant neoplasm of bladder, unspecified
CPT/HCPCS: 36415; 80053; 83735; 84439; 84443; 85025

== ENCOUNTER 2022-01-16 09:26 | Emergency (ER) | payer BC, MEDICARE, SELFPAY ==
[2022-01-16 09:37] VITALS: BP 159/68; PULSE 68; RESP 16; TEMP 36.6; O2SAT 95
[2022-01-16 09:51] VITALS: RESP 16
--- NOTE | 2022-01-16 10:23 | W.ED.GENAD ---
Discharge Plan Disposition Patient Disposition: HOME Condition: Stable Discharge Details Clinical Impression: Medication reaction Primary Care Provider: Derek Torres ED Provider: Erick Rodríguez Home Meds and New Rx's Prescriptions: New hydromorphone 2 mg tablet 2 mg PO Q6H PRNQty: 8 0RF Continued lorazepam 0.5 mg tablet 0.5 mg PO Q8H PRN (Reason: Anxiety, muscle spasm) Qty: 60 3RF naloxone [Narcan] 4 mg/actuation spray,non-aerosol 1 spray intranasal Q2-3M PRN (Reason: opioid overdose) Qty: 2 0RF Rx Instructions: spray 1 dose into ONE nostril; alternate nostrils w each dose until help arrives cholecalciferol (vitamin D3) 1,000 UNIT capsule 1,000 iu PO QAM Qty: 100 4RF nystatin-triamcinolone 15 GM cream 1 applic Topical BID PRN PRNQty: 12 3RF (DME) OneTouch Ultra Test 1 EACH strip 1 ea Miscellaneous ac and hs Qty: 400 4RF Rx Instructions: dx: E11.65 on insulin with labile blood sugars and risk for hypoglycemia prochlorperazine maleate 10 mg tablet 10 mg PO Q6H PRN0RF Label Comments: TAKE ONE TABLET BY MOUTH EVERY 6 HOURS NEEDED FOR NAUSEA never had to use sennosides [senna] 8.6 mg tablet 17.2 mg PO BID 0RF Label Comments: TAKE TWO TABLETS BY MOUTH TWICE A DAY Fleet Enema 19-7 gram/118 mL Enema 118 ml NM ONCE PRN0RF furosemide 20 mg tablet 20 mg PO BID 0RF losartan 100 mg tablet 50 mg PO DAILY 0RF Label Comments: TAKE ONE TABLET BY MOUTH EVERY DAY docusate sodium 100 mg Capsule 100 mg PO DAILY 0RF hydrocodone-acetaminophen 5-325 mg Tablet 1 tab PO Q6H PRN0RF Label Comments: don't work polyethylene glycol 3350 17 gram powder in packet 17 g PO DAILY PRN PRN0RF Label Comments: USE 1 PACKET DAILY IN 8OZ OF LIQUID NEEDED FOR CONSTIPATION ondansetron HCl 8 mg tablet 8 mg PO Q8H PRN PRN0RF Label Comments: TAKE ONE TABLET BY MOUTH EVERY 8 HOURS NEEDED FOR NAUSEA calcium carbonate 500 mg calcium (1,250 mg) Tablet,Chewable 500 mg PO DAILY PRN0RF Eliquis 5 mg tablet 5 mg PO BID Qty: 70 0RF Rx Instructions: take 10 mg twice daily for 7 days, then 5 mg twice daily Tresiba FlexTouch U-100 100 UNIT/1 ML insulin pen 52 unit SQ QAM 0RF insulin lispro [Humalog KwikPen Insulin] 100 unit/mL insulin pen 0 - 6 unit SUBCUT PRN PRN0RF Label Comments: INJECT SUBCUTANEOUSLY PER SLIDING SCALE THREE TIMES A DAY BEFORE MEALS 101TO 150 2 UNITS 151 TO 200 4 UNITS 201 TO 250 6 UNITS 251 TO 3 metoprolol tartrate 25 mg Tablet 12.5 mg PO BID Qty: 60 0RF fluconazole 100 mg tablet 100 mg PO DAILY 0RF Label Comments: TAKE ONE TABLET BY MOUTH EVERY DAY Discontinued hydromorphone 4 mg tablet 4 mg PO .Q6HRS 0RF Label Comments: TAKE ONE TABLET BY MOUTH EVERY 6 HOURS (REPLACING HYDROCODONE) Discharge Instructions Additional Instructions: It would appear as though the hydrocodone was not adequate in treating your pain but now be 4 mg hydromorphone is over sedating. We have taken the prescription of your hydromorphone and will get rid of them safely. In the meantime I am providing you a prescription of 2 mg hydromorphone to take every 6 hours as needed for pain. Hopefully this will be the right amount of medication to treat your pain adequately but not over sedate you. Remember, you are not taking hydrocodone any longer. As you know this medication may cause drowsiness and constipation and I do recommend taking stool softeners. Please watch for new or worsening symptoms and return to the ER for any concerns. Lastly, I recommend reaching out to your provider who is currently prescribing her narcotic medication to discuss this change, I am only providing you with a small amount and you will need a longer term prescription if this dose works well for both your pain and does not sedate you. Please watch for new or worsening symptoms and return to the ER for any concerns Discharge Data Discharge Date/Time-TO BE ENTERED AT DEPARTURE: 01/16/22 11:06 Medical Decision Making Is a 66-year-old female, complicated past medical history, presenting to the ER requesting a medication change. She states that she feels as though her newly prescribed 4 mg hydromorphone are too sedating. She has no other concerns or complaints and is currently asymptomatic. No acute medical concerns. She appears well, nontoxic, hemodynamically stable. She was able to provide me with her recent prescription of hydromorphone that she filled 2 days ago, there are 49 tablets left out of 56. Given she filled this on the , the map as up and she has been taking the appropriate dose. We will take this prescription and dispose of them accordingly. We discussed options, she feels as though she would like to trial 2 mg every 6 hours which I feel is perfectly reasonable given her recent new prescription and transition from a Vicodin to hydromorphone. I will provide her with 8 tablets of 2 mg to take every 6 hours as needed. We discussed the importance of contacting her prescriber tomorrow to discuss this change as she will need a refill if this medication works well for both her pain and sedation. Patient has no additional questions or concerns and is comfortable with this plan. This documentation was generated using [employer] system, please disregard any oddities of phrase or misspellings. Medical Records Medical records reviewed: Yes I reviewed the patient's medical records. HPI General Mode of arrival: wheelchair. Date/Time Provider Initiated Documentation: 01/16/22 09:27. Limitations to Documentation: no limitations. Information obtained by: patient. HPI Narrative: This is a 66-year-old female, palliative care patient, past medical history that includes hypertension, anemia, anxiety, CHF, thrombocytopenia, diabetes, currently being treated for urothelial carcinoma, presents to the ER requesting a medication adjustment. She states that her oncologist had her on Vicodin but it was not controlling her pain. On Monday they changed her from taking Vicodin to then taking 4 mg hydromorphone every 6 hours. She states that this medication although treat her pain well, currently pain-free, feels too sedated on this medication. Her works and she needs to care for herself during the day and she feels as though tomorrow when he is at work she will not be safe doing so. She has no acute medical concerns or complaints. She tells me that she contacted her oncology team but they were unable to do anything about the prescription. She had wanted to take 2 mg but reports the tablets are too small and she is unable to break them in half appropriately. Related Data Home Medications Medication Instructions Recorded Confirmed cholecalciferol (vitamin D3) 25 1,000 iu PO QAM #100 tab-cap 07/31/14 01/16/22 mcg (1,000 unit) capsule nystatin-triamcinolone 100,000 1 applic TOPICAL BID PRN PRN #12 09/01/16 01/16/22 unit/g-0.1 % topical cream box blood sugar diagnostic (OneTouch #400 strip 10/18/16 11/22/21 Ultra Test) prochlorperazine maleate 10 mg 10 mg PO Q6H PRN 03/19/21 01/16/22 tablet sennosides 8.6 mg tablet (senna) 17.2 mg PO BID 03/19/21 01/16/22 sodium phosphates 19 gram-7 118 ml NM ONCE PRN 03/20/21 01/16/22 gram/118 mL enema (Fleet Enema) insulin degludec 100 unit/mL (3 52 unit SQ QAM 05/19/21 01/16/22 mL) subcutaneous pen (Tresiba FlexTouch U-100 insulin) insulin lispro 100 unit/mL 0 - 6 unit SUBCUT PRN PRN 05/19/21 11/22/21 subcutaneous pen (Humalog KwikPen (U-100) Insulin) metoprolol tartrate 25 mg tablet 12.5 mg PO BID #60 tab 05/21/21 01/16/22 docusate sodium 100 mg capsule 100 mg PO DAILY 08/11/21 01/16/22 furosemide 20 mg tablet 20 mg PO BID 08/11/21 01/16/22 hydrocodone 5 mg-acetaminophen 325 1 tab PO Q6H PRN 08/11/21 01/16/22 mg tablet losartan 100 mg tablet 50 mg PO DAILY 08/11/21 01/16/22 calcium carbonate 500 mg calcium 500 mg PO DAILY PRN 10/27/21 01/16/22 (1,250 mg) chewable tablet ondansetron HCl 8 mg tablet 8 mg PO Q8H PRN PRN 10/27/21 01/16/22 polyethylene glycol 3350 17 gram 17 g PO DAILY PRN PRN 10/27/21 01/16/22 oral powder packet apixaban 5 mg tablet (Eliquis) 5 mg PO BID #70 tab 10/28/21 01/16/22 lorazepam 0.5 mg tablet 0.5 mg PO Q8H PRN #60 tab 11/22/21 01/16/22 naloxone 4 mg/actuation nasal 1 spray INTRANASAL Q2-3M PRN #2 ea 11/22/21 01/16/22 spray (Narcan) fluconazole 100 mg tablet 100 mg PO DAILY 01/16/22 01/16/22 hydromorphone 2 mg tablet 2 mg PO Q6H PRN #8 tab 01/16/22 Previous Rx's Medication Instructions Recorded metoprolol tartrate 25 mg tablet 12.5 mg PO BID #60 tab 05/21/21 apixaban 5 mg tablet (Eliquis) 5 mg PO BID #70 tab 10/28/21 lorazepam 0.5 mg tablet 0.5 mg PO Q8H PRN #60 tab 11/22/21 naloxone 4 mg/actuation nasal 1 spray INTRANASAL Q2-3M PRN #2 ea 11/22/21 spray (Narcan) hydromorphone 2 mg tablet 2 mg PO Q6H PRN #8 tab 01/16/22 Allergies Allergy/AdvReac Type Severity Reaction Status Date / Time Sulfa (Sulfonamide Allergy Severe rash Verified 01/16/22 09:44 Antibiotics) adhesive Allergy Intermediate Skin Rash Verified 01/16/22 09:44 exenatide microspheres Allergy Unknown Verified 01/16/22 09:44 [From Bydureon] gabapentin Allergy Verified 01/16/22 09:44 loratadine AdvReac Severe MADE HER Verified 01/16/22 09:44 FEEL HYPER celecoxib [From Celebrex] AdvReac Intermediate Pt states Verified 01/16/22 09:44 side effects unspecified gluten AdvReac Intermediate Diarrhea Verified 01/16/22 09:44 lactose AdvReac Intermediate Diarrhea Verified 01/16/22 09:44 Pdehcdk-FIJ-PcH Reductase AdvReac Verified 01/16/22 09:44 Inhibitor [Jqjwxny-Mfo-Mfp Reductase Inhibitor] Tegaderm Allergy Dermatitis Uncoded 01/16/22 09:44 General Stated Complaint: GenMedical NEHA: 3 Review of Systems Constitutional Constitutional: Denies fever(s) and Denies weakness Cardiovascular Cardiovascular: Denies chest pain and Denies dyspnea Respiratory Respiratory: Denies dyspnea Musculoskeletal Musculoskeletal: Reports back pain (Chronic, none currently) Integumentary/Breasts Skin/Breast: Denies rash Neurologic Neurologic: Denies weakness PFSH All Active Problems Medication reaction (Acute) Muscle pain (Chronic) Palliative care encounter (Chronic) Bone tumor (Acute) DVT (deep venous thrombosis) (Chronic) Mental health disorder (Chronic) Folate deficiency (Acute) Acute kidney injury superimposed on chronic kidney disease (Acute) Acute on chronic anemia (Acute) Hypertension (Chronic) Anxiety (Chronic) Constipation (Acute) Reflux esophagitis (Acute) Acute on chronic diastolic CHF (congestive heart failure), NYHA class 1 (Chronic) Chest pain (Acute) Pericardial effusion (Acute) Elevated troponin (Acute) Acute anemia (Acute) Thrombocytopenia (Acute) Bandemia (Acute) Diastolic heart failure (Acute) Peripheral neuropathy (Chronic) Superficial thrombophlebitis of right upper extremity (Acute) Urothelial carcinoma (Acute) Acute pulmonary edema (Acute) IDDM (insulin dependent diabetes mellitus) (Chronic) Discharge planning issues (Acute) DVT prophylaxis (Acute) Ureteral cancer (Acute) Acute CHF (Acute) Leukocytosis (Acute) Bilateral lower extremity edema (Acute) Pericardial effusion (Acute) UTI (urinary tract infection) (Acute) Kidney mass (Acute) Flank pain (Acute) Medical History Depression Diabetes Gastritis and duodenitis GERD (gastroesophageal reflux disease) History of colon polyps Hyperlipidemia Obesity Osteoarthritis Surgical History Abdominal hysterectomy (~11/2010) for fibroid Bilateral salpingectomy with oophorectomy Biopsy of breast cyst excised-left section Colonoscopy - MAC (01/10/17) EGD - MAC (01/10/17) Extraction of cataract (11/10/16) LEFT EYE; DR. MORRIS Hemorrhoidectomy and anal fissure repair Hernia Repair, Incisional OOPHRECTOMY, UNILATERAL (~1991) , Ectopic (~1991) Family History Mother Personal history of malignant neoplasm UTERINE Father Personal history of malignant neoplasm COLON Brother Heart disease Brother No problems noted. Brother No problems noted. Grandfather Personal history of malignant neoplasm Grandfather No problems noted. Grandmother Personal history of malignant neoplasm Stroke Grandmother Diabetes Personal history of malignant neoplasm Social History Smoking/Tobacco Use Status: Current-Occasional Tobacco Type: e-cigarettes Smoking risk assessment performed?: Yes Alcohol Intake: never Drug use: Never Substance use type: does not use Details: vapor use Do you feel safe at home: Yes Do you feel safe in your relationship?: Yes Exam Const General: cooperative, healthy appearing, comfortable and no acute distress Orientation: alert, awake and oriented x3 HENMT Head: normal to inspection, normocephalic and atraumatic Face and sinus: normal facial exam Mouth: moist mucous membranes Eyes Conjunctivae: conjunctivae normal Neck Neck: normal visual inspection, trachea midline and supple Resp Effort & Inspection: normal respiratory effort and able to speak in complete sentences Auscultation: clear to auscultation bilaterally Cardio Rate: regular rate Rhythm: regular rhythm Skin General skin exam: no rashes or lesions noted Neuro General: patient alert, patient awake, moves all extremities and no focal motor deficits Sensory Exam: no sensory deficits noted Extrem General: normal to inspection and full ROM Psych Appearance: grossly normal Mental Status: mental status grossly normal Course Vital Signs Vital signs: Vital Signs Temperature 36.6 C 01/16/22 09:37 Pulse 68 01/16/22 09:37 Respiratory Rate 16 01/16/22 09:37 Blood Pressure 159/68 H 01/16/22 09:37 Pulse Oximetry 95 01/16/22 09:37 Temperature 36.6 C 01/16/22 09:37 Temperature Source Skin 01/16/22 09:37 Pulse 68 01/16/22 09:37 Respiratory Rate 16 01/16/22 09:51 Respiratory Effort Non-Labored 01/16/22 09:51 Respiratory Depth Normal 01/16/22 09:51 Respiratory Pattern Normal 01/16/22 09:51 Blood Pressure 159/68 H 01/16/22 09:37 Blood Pressure Position Sitting 01/16/22 09:37 Pulse Oximetry 95 01/16/22 09:37 Oxygen Delivery Method Room Air 01/16/22 09:37 Oxygen Flow Rate 0 01/16/22 09:37 Pain Level 0 01/16/22 09:37
--- NOTE | 2022-01-16 10:41 | NUR.NOTE ---
Wasted hydromorphone 4mg tabs #49 into green medication waste bin outside ED. Medication waste form completed.
== END 2022-01-16 11:06 | disposition home or self-care (01) ==
PROVIDERS: Emergency Provider Physician Assistant; PCP Physician Assistant
DX: R40.0 Somnolence (principal); T40.2X5A Adverse effect of other opioids, initial encounter; G89.3 Neoplasm related pain (acute) (chronic)
CPT/HCPCS: 99283

== ENCOUNTER 2022-01-25 11:13 | Outpatient (CLI) | payer BC, MEDICARE, SELFPAY ==
[2022-01-25 09:56] LABS: Abs Immature Grans 0.05 10^3/uL (0.0-0.06); Absolute Basophil Count 0.09 10^3/uL (0.0-0.2); Absolute Eosinophil Count 0.32 10^3/uL (0.0-0.7); Absolute Lymphocyte Count 1.65 10^3/uL (1.2-3.4); Absolute Neutrophil Count 7.46 10^3/uL (1.2-6.7); Basophils % 0.9; Eosinophils % 3.1; HCT 40.1 % (36.0-46.0); HGB 12.7 g/dL (11.2-15.7); Immature Grans % 0.5; Lymphocytes % 16.1; MCH 28.5 pg (27.0-33.0); MCHC 31.7 % (32.0-36.0); MCV 90.1 fL (80-95); MPV 10.8 fL (8.0-11.0); Monocytes % 6.8; Neutrophils % 72.6; Nucleated RBC 0 %; Platelet Count 295 10^3/uL (130-400); RBC 4.45 10^6/uL (3.93-5.22); RDW 13.9 % (11.7-14.6); RDW-SD 46.1 fL; WBC 10.27 10^3/uL (4.4-10.8)
[2022-01-25 10:21] LABS: ALT 24 U/L (14-59); AST 17 U/L (15-37); Albumin 3.3 g/dL (3.4-5.0); Alkaline Phosphatase 102 U/L (46-116); Anion Gap 7.6 mmol/L (3-11); BUN 47 mg/dL (7-18); Bilirubin, Total 0.4 mg/dL (0.2-1.0); CO2 22.4 mmol/L (21.0-32.0); CREATININE 1.6 mg/dL (0.55-1.02); Calcium 9.1 mg/dL (8.5-10.1); Chloride 103 mmol/L (98-107); Estimated GFR 32.15 (mL/min/1.73m2); FREE T4 1.22 ng/dL (0.76-1.46); Glucose 161 mg/dL (74-106); Magnesium 2.4 mg/dL (1.8-2.4); Sodium 133 mmol/L (136-145); TSH 2.78 uIU/mL (0.36-3.74); Total Protein 7.7 g/dL (6.4-8.2)
[2022-01-25 10:34] LABS: Potassium 6.1 mmol/L (3.5-5.1)
== END 2022-01-25 11:14 | disposition home or self-care (01) ==
LOC: LBO 11:19
PROVIDERS: PCP Physician Assistant; Visit Provider Internal Medicine
DX: C79.10 Secondary malignant neoplasm of unspecified urinary organs (principal); Z79.899 Other long term (current) drug therapy; C67.9 Malignant neoplasm of bladder, unspecified
CPT/HCPCS: 36415; 80053; 83735; 84439; 84443; 85025

== ENCOUNTER 2022-01-25 12:32 | Emergency (ER) | payer BC, MEDICARE, SELFPAY ==
[2022-01-25] VITALS (32 sets, daily range): BP systolic 91–193; BP diastolic 46–128; PULSE 74–117; RESP 12–31; TEMP 36.7; O2SAT 90–100
--- NOTE | 2022-01-25 12:30 | RT.EKG_ITS ---
APPROVED REPORT Exam: Resting ECG Reason for Exam: hyperkal Patient Location: E HR:77 bpm ECG Measurements Heart Rate 77 AXIS FL 147 P 8 QRSd 134 QRS 50 QT 411 T 40 QTc 467 Conclusion Sinus rhythm...normal P axis, V-rate 60- 99 Right bundle branch block...QRSd>120, terminal axis(90,270) Nonspecific T abnormalities, lateral leads...T <-0.10mV, I aVL V5 V6 sinus rhythm, rbbb, st depressions II III avf and lateral leads, with elevations in aVR largely uncha nged from 2020
--- NOTE | 2022-01-25 13:13 | W.ED.GENAD ---
Discharge Plan Disposition Patient Disposition: HOME Condition: Stable Discharge Details Clinical Impression: Acute hyperkalemia, IDDM (insulin dependent diabetes mellitus) Primary Care Provider: Derek Torres ED Provider: Earlene Us Home Meds and New Rx's Prescriptions: New Lokelma 5 gram powder in packet 5 g PO DAILY 2 Days Qty: 2 0RF Rx Instructions: Take one daily for next two days Continued naloxone [Narcan] 4 mg/actuation spray,non-aerosol 1 spray intranasal Q2-3M PRN (Reason: opioid overdose) Qty: 2 0RF Rx Instructions: spray 1 dose into ONE nostril; alternate nostrils w each dose until help arrives cholecalciferol (vitamin D3) 1,000 UNIT capsule 1,000 iu PO QAM Qty: 100 4RF nystatin-triamcinolone 15 GM cream 1 applic Topical BID PRN PRNQty: 12 3RF (DME) OneTouch Ultra Test 1 EACH strip 1 ea Miscellaneous ac and hs Qty: 400 4RF Rx Instructions: dx: E11.65 on insulin with labile blood sugars and risk for hypoglycemia prochlorperazine maleate 10 mg tablet 10 mg PO Q6H PRN0RF Label Comments: TAKE ONE TABLET BY MOUTH EVERY 6 HOURS NEEDED FOR NAUSEA never had to use sennosides [senna] 8.6 mg tablet 17.2 mg PO BID 0RF Label Comments: TAKE TWO TABLETS BY MOUTH TWICE A DAY Fleet Enema 19-7 gram/118 mL Enema 118 ml SC ONCE PRN0RF furosemide 20 mg tablet 20 mg PO DAILY PRN0RF losartan 100 mg tablet 100 mg PO DAILY 0RF Label Comments: TAKE ONE TABLET BY MOUTH EVERY DAY docusate sodium 100 mg Capsule 100 mg PO DAILY PRN0RF polyethylene glycol 3350 17 gram powder in packet 17 g PO DAILY PRN PRN0RF Label Comments: USE 1 PACKET DAILY IN 8OZ OF LIQUID NEEDED FOR CONSTIPATION ondansetron HCl 8 mg tablet 8 mg PO Q8H PRN PRN0RF Label Comments: TAKE ONE TABLET BY MOUTH EVERY 8 HOURS NEEDED FOR NAUSEA Eliquis 5 mg tablet 5 mg PO BID Qty: 70 0RF Rx Instructions: take 10 mg twice daily for 7 days, then 5 mg twice daily Tresiba FlexTouch U-100 100 UNIT/1 ML insulin pen 56 unit SQ QAM 0RF insulin lispro [Humalog KwikPen Insulin] 100 unit/mL insulin pen 0 - 6 unit SUBCUT PRN PRN0RF Label Comments: INJECT SUBCUTANEOUSLY PER SLIDING SCALE THREE TIMES A DAY BEFORE MEALS 101TO 150 2 UNITS 151 TO 200 4 UNITS 201 TO 250 6 UNITS 251 TO 3 hydromorphone 2 mg tablet 2 mg PO Q6H PRNQty: 8 0RF metoprolol tartrate 25 mg tablet 25 mg PO BID 0RF Discharge Instructions Additional Instructions: You should have your potassium rechecked in 24 hours Continue on the medication I prescribed You will need to talk to your doctor about whether or not this is related to your chemotherapy versus medications you take Recommendation for 24-hour recheck Your repeat potassium is within normal limits. Follow up with primary care provider in 3-5 days. Return to ED sooner if any worsening or concerns. Increase oral fluids. Referrals: Derek Torres [Primary Care Provider] - Discharge Data Discharge Date/Time-TO BE ENTERED AT DEPARTURE: 01/25/22 17:22 Medical Decision Making <DELORES Mcgrath - Last Filed: 01/26/22 20:37> While in the emergency room patient had a repeat potassium, 6.2 Patient is initially asymptomatic and was sent over from oncology with incidental finding She was treated with insulin 8 units that she had just taken 2 units of her regular insulin, 10 of calcium gluconate, and 1 amp of D50 secondary to insulin administration called Hospitalist for admission and they recommend repeat potassium after hyperkalemic interventions here in the emergency department Patient will have her potassium rechecked and her blood sugar rechecked every hour Patient did have an episode of indigestion, she of note was panicking secondary to her blood sugar being 290 clinic with a recheck after administration of dextrose I do not believe this is cardiac in nature Patient does have a right bundle branch block on her EKG, this does not appear to be changed We will repeat her EKG prior to discharge home She was reassessed on 4+ occasions throughout this encounter Care will be transitioned to nurse Yony practitioner pending repeat potassium, repeat EKG and bradycardia Medical Records Medical records reviewed: Yes I reviewed the patient's medical records. Lab Data Lab results reviewed: Yes I reviewed the patient's lab results. ECG Data Prior ECG tracings: available for review <Earlene Us - Last Filed: 01/25/22 18:06> While in the emergency room patient had a repeat potassium, 6.2 Patient is initially asymptomatic and was sent over from oncology with incidental finding She was treated with insulin 8 units that she had just taken 2 units of her regular insulin, 10 of calcium gluconate, and 1 amp of D50 secondary to insulin administration called Hospitalist for admission and they recommend repeat potassium after hyperkalemic interventions here in the emergency department Patient will have her potassium rechecked and her blood sugar rechecked every hour Patient did have an episode of indigestion, she of note was panicking secondary to her blood sugar being 290 clinic with a recheck after administration of dextrose I do not believe this is cardiac in nature Patient does have a right bundle branch block on her EKG, this does not appear to be changed We will repeat her EKG prior to discharge home She was reassessed on 4+ occasions throughout this encounter Care will be transitioned to Graciela Morales nurse practitioner pending repeat potassium, repeat EKG and bradycardia 1635: SJ: Care assumed from provider (DELORES Mcgrath Please see their initial HPI, PE, and documentation. Discussed patient details and case and pending workup and disposition. Patient is hemodynamically stable, and alert and oriented. At the time of signout we are pending a repeat potassium, EKG and reassessment. She has received insulin, calcium gluconate, 1 amp of D50. Repeat BMP shows a potassium of 4.9, sodium 136, BUN slightly elevated at 47 creatinine 2.0 glucose of 197. At this time I do feel it is safe to discharge patient home with recheck of additional potassium level tomorrow. We will send patient home with an outpatient lab requisition, [facility] x 2 days, and instructions to have blood drawn tomorrow and close follow-up with PCP. HPI <DELORES Mcgrath - Last Filed: 01/26/22 20:37> General Date/Time Provider Initiated Documentation: 01/25/22 12:34. HPI Narrative: This 66-year-old female with past medical history of depression, diabetes, GERD, hyperlipidemia presents at the request of her oncologist with [facility] for report of hyperkalemia. She was scheduled for chemotherapy today when her potassium was notably high. She denies any decreased urination, change in medication aside from mild increase in her metoprolol, new chest pain, shortness of breath, vomiting, fever, chills. Related Data Home Medications Medication Instructions Recorded Confirmed cholecalciferol (vitamin D3) 25 1,000 iu PO QAM #100 tab-cap 07/31/14 01/25/22 mcg (1,000 unit) capsule nystatin-triamcinolone 100,000 1 applic TOPICAL BID PRN PRN #12 09/01/16 01/25/22 unit/g-0.1 % topical cream box blood sugar diagnostic (OneTouch #400 strip 10/18/16 11/22/21 Ultra Test) prochlorperazine maleate 10 mg 10 mg PO Q6H PRN 03/19/21 01/25/22 tablet sennosides 8.6 mg tablet (senna) 17.2 mg PO BID 03/19/21 01/25/22 sodium phosphates 19 gram-7 118 ml SC ONCE PRN 03/20/21 01/25/22 gram/118 mL enema (Fleet Enema) insulin degludec 100 unit/mL (3 56 unit SQ QAM 05/19/21 01/25/22 mL) subcutaneous pen (Tresiba FlexTouch U-100 insulin) insulin lispro 100 unit/mL 0 - 6 unit SUBCUT PRN PRN 05/19/21 01/25/22 subcutaneous pen (Humalog KwikPen (U-100) Insulin) docusate sodium 100 mg capsule 100 mg PO DAILY PRN 08/11/21 01/25/22 furosemide 20 mg tablet 20 mg PO DAILY PRN 08/11/21 01/25/22 losartan 100 mg tablet 100 mg PO DAILY 08/11/21 01/25/22 ondansetron HCl 8 mg tablet 8 mg PO Q8H PRN PRN 10/27/21 01/25/22 polyethylene glycol 3350 17 gram 17 g PO DAILY PRN PRN 10/27/21 01/25/22 oral powder packet apixaban 5 mg tablet (Eliquis) 5 mg PO BID #70 tab 10/28/21 01/25/22 naloxone 4 mg/actuation nasal 1 spray INTRANASAL Q2-3M PRN #2 ea 11/22/21 01/16/22 spray (Narcan) hydromorphone 2 mg tablet 2 mg PO Q6H PRN #8 tab 01/16/22 01/25/22 metoprolol tartrate 25 mg tablet 25 mg PO BID 01/25/22 01/25/22 sodium zirconium cyclosilicate 5 5 g PO DAILY 2 Days #2 ea 01/25/22 gram oral powder packet (Lokelma) Previous Rx's Medication Instructions Recorded apixaban 5 mg tablet (Eliquis) 5 mg PO BID #70 tab 10/28/21 naloxone 4 mg/actuation nasal 1 spray INTRANASAL Q2-3M PRN #2 ea 11/22/21 spray (Narcan) hydromorphone 2 mg tablet 2 mg PO Q6H PRN #8 tab 01/16/22 sodium zirconium cyclosilicate 5 5 g PO DAILY 2 Days #2 ea 01/25/22 gram oral powder packet (Lokelma) Allergies Allergy/AdvReac Type Severity Reaction Status Date / Time Sulfa (Sulfonamide Allergy Severe rash Verified 01/25/22 12:44 Antibiotics) adhesive Allergy Intermediate Skin Rash Verified 01/25/22 12:44 exenatide microspheres Allergy Unknown Verified 01/25/22 12:44 [From Bydureon] gabapentin Allergy Verified 01/25/22 12:44 loratadine AdvReac Severe MADE HER Verified 01/25/22 12:44 FEEL HYPER celecoxib [From Celebrex] AdvReac Intermediate Pt states Verified 01/25/22 12:44 side effects unspecified gluten AdvReac Intermediate Diarrhea Verified 01/25/22 12:44 lactose AdvReac Intermediate Diarrhea Verified 01/25/22 12:44 Rhkurrz-SYN-JjP Reductase AdvReac Verified 01/25/22 12:44 Inhibitor [Udrvdet-Zyk-Eer Reductase Inhibitor] Tegaderm Allergy Dermatitis Uncoded 01/25/22 12:44 General Stated Complaint: GenMedical NEHA: 2 Review of Systems <DELORES Mcgrath - Last Filed: 01/26/22 20:37> All systems reviewed & are unremarkable except as noted in HPI and below PFSH <DELORES Mcgrath - Last Filed: 01/26/22 20:37> All Active Problems (Updated 01/25/22 @ 16:04 by DELORES Mcgrath) Medication reaction (Acute) Acute hyperkalemia (Acute) Muscle pain (Chronic) Palliative care encounter (Chronic) Bone tumor (Acute) DVT (deep venous thrombosis) (Chronic) Mental health disorder (Chronic) Folate deficiency (Acute) Acute kidney injury superimposed on chronic kidney disease (Acute) Acute on chronic anemia (Acute) Hypertension (Chronic) Anxiety (Chronic) Constipation (Acute) Reflux esophagitis (Acute) Acute on chronic diastolic CHF (congestive heart failure), NYHA class 1 (Chronic) Chest pain (Acute) Pericardial effusion (Acute) Elevated troponin (Acute) Acute anemia (Acute) Thrombocytopenia (Acute) Bandemia (Acute) Diastolic heart failure (Acute) Peripheral neuropathy (Chronic) Superficial thrombophlebitis of right upper extremity (Acute) Urothelial carcinoma (Acute) Acute pulmonary edema (Acute) IDDM (insulin dependent diabetes mellitus) (Chronic) Discharge planning issues (Acute) DVT prophylaxis (Acute) Ureteral cancer (Acute) Acute CHF (Acute) Leukocytosis (Acute) Bilateral lower extremity edema (Acute) Pericardial effusion (Acute) UTI (urinary tract infection) (Acute) Kidney mass (Acute) Flank pain (Acute) Medical History Depression Diabetes Gastritis and duodenitis GERD (gastroesophageal reflux disease) History of colon polyps Hyperlipidemia Obesity Osteoarthritis Surgical History Abdominal hysterectomy (~11/2010) for fibroid Bilateral salpingectomy with oophorectomy Biopsy of breast cyst excised-left section Colonoscopy - MAC (01/10/17) EGD - MAC (01/10/17) Extraction of cataract (11/10/16) LEFT EYE; DR. MORRIS Hemorrhoidectomy and anal fissure repair Hernia Repair, Incisional OOPHRECTOMY, UNILATERAL (~1991) , Ectopic (~1991) Family History Mother Personal history of malignant neoplasm UTERINE Father Personal history of malignant neoplasm COLON Brother Heart disease Brother No problems noted. Brother No problems noted. Grandfather Personal history of malignant neoplasm Grandfather No problems noted. Grandmother Personal history of malignant neoplasm Stroke Grandmother Diabetes Personal history of malignant neoplasm Social History Smoking/Tobacco Use Status: Current-Occasional Tobacco Type: e-cigarettes Smoking risk assessment performed?: Yes Alcohol Intake: never Drug use: Never Substance use type: does not use Details: vapor use Do you feel safe at home: Yes Do you feel safe in your relationship?: Yes Exam <DELORES Mcgrath - Last Filed: 01/26/22 20:37> Const General: cooperative and frail appearing HENMT Other: Moist mucous membrane Eyes Sclera: sclerae normal Chest Chest: normal inspection of the chest Resp Effort & Inspection: normal respiratory effort Cardio Rate: regular rate Skin General skin exam: no rashes or lesions noted Neuro General: patient alert and patient oriented x3 Extrem Other: no calf swelling or tenderness Course <DELORES Mcgrath - Last Filed: 01/26/22 20:37> Vital Signs Vital signs: Vital Signs Temperature 36.7 C 01/25/22 12:40 Pulse 80 01/25/22 12:40 Respiratory Rate 23 01/25/22 12:40 Blood Pressure 178/53 H 01/25/22 12:40 Pulse Oximetry 98 01/25/22 12:40 Temperature 36.7 C 01/25/22 12:40 Temperature Source Temporal Artery Scan 01/25/22 12:40 Pulse 76 01/25/22 12:51 Pulse 74 01/25/22 12:51 Respiratory Rate 21 01/25/22 12:51 Respiratory Effort Non-Labored 01/25/22 12:43 Blood Pressure 151/66 H 01/25/22 12:51 Blood Pressure Mean 83 01/25/22 12:51 Blood Pressure Position Supine 01/25/22 12:40 Pulse Oximetry 96 01/25/22 12:51 Oxygen Delivery Method Room Air 01/25/22 12:40 Oxygen Flow Rate 0 01/25/22 12:40 Pain Level 4 01/25/22 12:40 Sign Out <DELORES Mcgrath - Last Filed: 01/26/22 20:37> Sign Out Data: Sign Out Comment: Signed out pending repeat potassium and EKG, likely dispo home Last updated by Rayna Adams PA at 01/25/22 16:23
[2022-01-25 13:43] LABS: Abs Immature Grans 0.03 10^3/uL (0.0-0.06); Absolute Basophil Count 0.06 10^3/uL (0.0-0.2); Absolute Eosinophil Count 0.27 10^3/uL (0.0-0.7); Absolute Monocyte Count 0.67 10^3/uL (0.1-0.8); Absolute Neutrophil Count 7.11 10^3/uL (1.2-6.7); Basophils % 0.6; Eosinophils % 2.8; HCT 40.6 % (36.0-46.0); HGB 12.8 g/dL (11.2-15.7); Immature Grans % 0.3; Lymphocytes % 15.6; MCH 28.1 pg (27.0-33.0); MCHC 31.5 % (32.0-36.0); MPV 10.9 fL (8.0-11.0); Neutrophils % 73.7; Nucleated RBC 0 %; Platelet Count 289 10^3/uL (130-400); RBC 4.56 10^6/uL (3.93-5.22); RDW 14.1 % (11.7-14.6); WBC 9.64 10^3/uL (4.4-10.8)
[2022-01-25 13:50] LABS: Anion Gap 7.6 mmol/L (3-11); BUN 46 mg/dL (7-18); CO2 23.4 mmol/L (21.0-32.0); CREATININE 1.6 mg/dL (0.55-1.02); Calcium 9.2 mg/dL (8.5-10.1); Chloride 104 mmol/L (98-107); Estimated GFR 32.15 (mL/min/1.73m2); Glucose 100 mg/dL (74-106); Magnesium 2.5 mg/dL (1.8-2.4); Sodium 135 mmol/L (136-145)
[2022-01-25 13:53] LABS: Potassium 6.2 mmol/L (3.5-5.1)
[2022-01-25 14:26] LABS: ALT 28 U/L (14-59); AST 17 U/L (15-37); Albumin 3.4 g/dL (3.4-5.0); Alkaline Phosphatase 106 U/L (46-116); Bilirubin, Direct 0.1 mg/dL (0.0-0.2); Bilirubin, Total 0.3 mg/dL (0.2-1.0); Creatine Kinase 48 U/L (26-192); Total Protein 7.9 g/dL (6.4-8.2)
[2022-01-25] MEDS: Sodium Zirconium Cyclosilicate 10 GM PKT PO (14:39)
[2022-01-25] MEDS: Dextrose 50%-Water 25 GM/50 ML SYR IVP (14:40)
[2022-01-25] MEDS: Calcium Gluconate 4.65 MEQ/10 ML VIAL 4.65 MG IVP (14:40)
[2022-01-25] MEDS: Insulin REGULAR-Human 100 UNITS/ML UNIT 10 UNITS IV (14:40)
[2022-01-25] MEDS: Albuterol 2.5 MG/3 ML INH SOLN VIAL UPD (14:40)
[2022-01-25 14:49] LABS: Source Nasal/Nares
[2022-01-25] MEDS: Normal Saline 50 ML 100 ML (14:50)
--- NOTE | 2022-01-25 15:00 | RT.EKG_ITS ---
APPROVED REPORT Exam: Resting ECG Reason for Exam: chest pain Patient Location: E HR:98 bpm ECG Measurements Heart Rate [address] 157 P 31 QRSd 134 QRS 61 QT 366 T 13 QTc 468 Conclusion Sinus rhythm...normal P axis, V-rate 60- 99 Right bundle branch block...QRSd>120, terminal axis(90,270) Nonspecific repol abnormality, lateral leads...ST dep, T neg, I aVL V5 V6 borderline tachycardia, sinus, RBBB, st depressions, I II V4-V6, with t wave inversion in III and aVF , st elevation lead aVR
[2022-01-25 15:30] LABS: COVID-19 PCR Negative (Negative)
[2022-01-25 15:58] LABS: Troponin I < 50 ng/L (<or=60)
--- NOTE | 2022-01-25 16:00 | RT.EKG_ITS ---
APPROVED REPORT Exam: Resting ECG Reason for Exam: hyperkalemia Patient Location: E HR:96 bpm ECG Measurements Heart Rate 96 AXIS MD 151 P 16 QRSd 127 QRS -1 QT 377 T 82 QTc 477 Conclusion Sinus rhythm...normal P axis, V-rate 60- 99 Right bundle branch block...QRSd>120, terminal axis(90,270) Abnormal T, consider ischemia, lateral leads...T <-0.20mV, I aVL V5 V6 sinus rhythm, RBBB, st depressions I II aVL, V4-V6, st elevation aVR
[2022-01-25 16:44] LABS: Anion Gap 9.1 mmol/L (3-11); BUN 47 mg/dL (7-18); CO2 23.9 mmol/L (21.0-32.0); Calcium 9.1 mg/dL (8.5-10.1); Chloride 103 mmol/L (98-107); Estimated GFR 24.85 (mL/min/1.73m2); Glucose 197 mg/dL (74-106); Potassium 4.9 mmol/L (3.5-5.1); Sodium 136 mmol/L (136-145)
== END 2022-01-25 17:22 | disposition home or self-care (01) ==
PROVIDERS: Physician Assistant; Emergency Provider Registered Nurse Emergency; PCP Physician Assistant
DX: E87.6 Hypokalemia (principal); E11.9 Type 2 diabetes mellitus without complications; Z79.4 Long term (current) use of insulin
CPT/HCPCS: 36415; 36416; 80048; 80076; 82550; 82962; 87635; 93005; 94640; 96374; 96375; 99284; 83735; 84484; 85025; 93010; J0610; J7613

== ENCOUNTER 2022-01-26 12:33 | Outpatient (CLI) | payer BC, MEDICARE, SELFPAY ==
[2022-01-26 13:21] LABS: Anion Gap 9.9 mmol/L (3-11); BUN 44 mg/dL (7-18); CO2 23.1 mmol/L (21.0-32.0); CREATININE 1.7 mg/dL (0.55-1.02); Chloride 105 mmol/L (98-107); Estimated GFR 29.98 (mL/min/1.73m2); Glucose 106 mg/dL (74-106); Potassium 5.4 mmol/L (3.5-5.1); Sodium 138 mmol/L (136-145)
== END 2022-01-26 12:34 | disposition home or self-care (01) ==
LOC: LBO 12:36
PROVIDERS: PCP Physician Assistant; Visit Provider Physician Assistant
DX: E87.5 Hyperkalemia (principal)
CPT/HCPCS: 36415; 80048

== ENCOUNTER 2022-02-03 02:44 | Outpatient (CLI) | payer BC, MEDICARE, SELFPAY ==
[2022-02-03 14:23] LABS: Iron 59 ug/dL (50-170); Total Iron Binding Capacity 310 ug/dL (250-450); Transferrin Sat 19 % (15-50)
[2022-02-03 14:38] LABS: Ferritin 65 ng/mL (8-252)
[2022-02-03 14:46] LABS: Vitamin D 25 Total 33.2 ng/mL (30-100)
[2022-02-03 15:08] LABS: PHOSPHORUS 5.1 mg/dL (2.6-4.7)
[2022-02-04 08:54] LABS: Parathyroid Hormone,Intact 188 pg/mL (19-88)
[2022-02-04 10:34] LABS: Transferrin 239 mg/dL (201-352)
== END 2022-02-03 02:45 | disposition home or self-care (01) ==
LOC: LBO 02:45
PROVIDERS: Family Medicine; PCP Physician Assistant; Visit Provider Physician Assistant
DX: E11.9 Type 2 diabetes mellitus without complications (principal); I10 Essential (primary) hypertension; D64.9 Anemia, unspecified; N18.30 Chronic kidney disease, stage 3 unspecified
CPT/HCPCS: 82306; 82728; 83540; 83550; 83970; 84100; 84466

== ENCOUNTER 2022-02-08 01:30 | Outpatient (CLI) | payer BC, MEDICARE, SELFPAY | END 2022-02-08 01:31 | disposition home or self-care (01) | LOC: LBO 01:31 | PROVIDERS: PCP Physician Assistant; Visit Provider Family Medicine ==

== ENCOUNTER 2022-02-09 18:27 | Outpatient (REF) | payer BC, MEDICARE, SELFPAY ==
[2022-02-09 20:04] LABS: Bilirubin Negative (Negative); Blood Negative (Negative); Clarity Clear (Clear); Glucose Negative (Negative); Ketones Negative (Negative); Leukocyte Esterase Negative (Negative); Nitrite Negative (Negative); Specific Gravity 1.025 (1.005-1.025); Urobilinogen 0.2 EU/dL (Up TO 0.2); pH 5.5 (5-8)
[2022-02-09 20:15] LABS: Bacteria Few HPF (Negative); C & S Indicated? No; Casts 0-2 Coarse Granular LPF (Negative); Crystals Negative HPF (Negative); Epithelial Cells Many HPF (Negative); Mucus Negative (Negative); RBC 0-2 HPF (0-2)
[2022-02-09 20:17] LABS: Anion Gap 13.5 mmol/L (3-11); BUN 73 mg/dL (7-18); CO2 17.5 mmol/L (21.0-32.0); CREATININE 1.8 mg/dL (0.55-1.02); Calcium 8.8 mg/dL (8.5-10.1); Chloride 107 mmol/L (98-107); Estimated GFR 28.07 (mL/min/1.73m2); Glucose 168 mg/dL (74-106); Sodium 138 mmol/L (136-145)
[2022-02-09 20:18] LABS: Hemoglobin A1C 7.1 % (<5.7)
== END 2022-02-09 18:28 | disposition home or self-care (01) ==
LOC: NCHCN 18:27
PROVIDERS: PCP Physician Assistant; Visit Provider Physician Assistant
DX: E11.9 Type 2 diabetes mellitus without complications (principal); I10 Essential (primary) hypertension; N39.0 Urinary tract infection, site not specified
CPT/HCPCS: 80048; 81003; 81015; 83036

== ENCOUNTER 2022-02-11 00:25 | Outpatient (CLI) | payer BC, MEDICARE, SELFPAY ==
--- NOTE | 2022-02-11 13:00 | DI.US_ITS ---
Exam(s) US LOWER EXTREMITY VENOUS RT EXAM: US LOWER EXTREMITY VENOUS RT CLINICAL HISTORY: H/O DVT, Z86.718, S/P TREATMENT FOR ACUTE DVT FOUND IN 11/16; LBP, M54.5 TECHNIQUE: Ultrasound performed using standard protocol. COMPARISON: US US LOWER EXTREMITY VENOUS RT from 10/27/2021 FINDINGS: Duplex venous ultrasound was performed according to the usual protocol for right lower extremity. Pr ior examination of October 27, 2021 showed popliteal vein thrombus and this is again seen on today's study. This is partially compressible, no gross interval change appearance comparison with prior jong dy. No additional DVT seen. IMPRESSION: Stable popliteal vein thrombus, nonocclusive. No change from October 2021 DATA REPOSITORY:
--- NOTE | 2022-02-11 13:30 | DI.RAD_ITS ---
Exam(s) XR LUMBAR SPINE COMPLETE EXAM: XR LUMBAR SPINE COMPLETE CLINICAL HISTORY: LOW BACK PAIN, M54.5 TECHNIQUE: COMPARISON: CR XR LUMBAR SPINE COMPLETE from 07/23/2021 MR MR LUMBAR SPINE WO/W from 10/28/2021 FINDINGS: Five views were obtained, examination was obtained with patient standing. There are moderate hypertrophic degenerative changes of the facet joints throughout the lumbar region . Mild hypertrophic endplate changes also noted. Intervertebral disc spaces are fairly well maintained. There is question of a poorly defined sclerotic radiodensity projected over the L5 vertebral body pos teriorly which was not present on prior radiographic examinations. Prior lumbar MRI and lumbar CT di d show lesion at this site suspicious for metastatic disease. There is no evidence of fracture at this time. No other significant findings. IMPRESSION: DJD and question of blastic metastasis of L5 vertebral body, if clinically indicated follow-up lumbar spine MRI may be obtained and compared with prior study of October 28, 2021. RADIATION DOSE DELIVERED: Total DLP
== END 2022-02-11 00:45 ==
PROVIDERS: PCP Physician Assistant; Visit Provider Physician Assistant
DX: M54.59 Other low back pain (principal); M51.36 Other intervertebral disc degeneration, lumbar region; I82.431 Acute embolism and thrombosis of right popliteal vein
CPT/HCPCS: 72110; 93971

== ENCOUNTER 2022-02-15 09:44 | Outpatient (CLI) | payer BC, MEDICARE, SELFPAY | END 2022-02-15 09:45 | disposition home or self-care (01) | LOC: LBO 09:49 | PROVIDERS: PCP Physician Assistant; Visit Provider Internal Medicine ==

== ENCOUNTER → 2022-02-25 00:43 | Outpatient (CLI) | payer BC, MEDICARE, SELFPAY | PROVIDERS: PCP Physician Assistant; Visit Provider Physician Assistant ==

== ENCOUNTER 2022-03-01 14:38 | Outpatient (CLI) | payer BC, MEDICARE, SELFPAY ==
[2022-03-01 12:30] LABS: FREE T4 1.04 ng/dL (0.76-1.46); TSH 1.83 uIU/mL (0.36-3.74)
[2022-03-01 13:41] LABS: ALT 23 U/L (14-59); AST 13 U/L (15-37); Alkaline Phosphatase 118 U/L (46-116); Anion Gap 10.6 mmol/L (3-11); BUN 47 mg/dL (7-18); Bilirubin, Total 0.3 mg/dL (0.2-1.0); CO2 24.4 mmol/L (21.0-32.0); CREATININE 1.4 mg/dL (0.55-1.02); Calcium 8.8 mg/dL (8.5-10.1); Chloride 104 mmol/L (98-107); Estimated GFR 37.51 (mL/min/1.73m2); Glucose 220 mg/dL (74-106); Magnesium 2.2 mg/dL (1.8-2.4); Potassium 4.4 mmol/L (3.5-5.1); Sodium 139 mmol/L (136-145); Total Protein 7.2 g/dL (6.4-8.2)
[2022-03-01 15:08] LABS: Abs Immature Grans 0.05 10^3/uL (0.0-0.06); Absolute Basophil Count 0.06 10^3/uL (0.0-0.2); Absolute Eosinophil Count 0.25 10^3/uL (0.0-0.7); Absolute Lymphocyte Count 1.37 10^3/uL (1.2-3.4); Absolute Monocyte Count 0.46 10^3/uL (0.1-0.8); Absolute Neutrophil Count 6.92 10^3/uL (1.2-6.7); Basophils % 0.7; Eosinophils % 2.7; HCT 36.8 % (36.0-46.0); HGB 11.3 g/dL (11.2-15.7); Immature Grans % 0.5; MCH 28.3 pg (27.0-33.0); MCHC 30.7 % (32.0-36.0); MPV 11.4 fL (8.0-11.0); Neutrophils % 76.1; Nucleated RBC 0 %; Platelet Count 250 10^3/uL (130-400); RDW 13.7 % (11.7-14.6); RDW-SD 46.5 fL; WBC 9.11 10^3/uL (4.4-10.8)
== END 2022-03-01 14:39 | disposition home or self-care (01) ==
LOC: LBO 14:39
PROVIDERS: PCP Physician Assistant; Visit Provider Internal Medicine
DX: C79.19 Secondary malignant neoplasm of other urinary organs (principal); Z79.899 Other long term (current) drug therapy; C67.9 Malignant neoplasm of bladder, unspecified
CPT/HCPCS: 36415; 80053; 83735; 84439; 84443; 85025

== ENCOUNTER 2022-03-15 02:25 | Outpatient (CLI) | payer BC, MEDICARE, SELFPAY ==
[2022-03-15 09:14] LABS: Abs Immature Grans 0.09 10^3/uL (0.0-0.06); Absolute Basophil Count 0.07 10^3/uL (0.0-0.2); Absolute Eosinophil Count 0.29 10^3/uL (0.0-0.7); Absolute Lymphocyte Count 1.74 10^3/uL (1.2-3.4); Absolute Monocyte Count 0.58 10^3/uL (0.1-0.8); Basophils % 0.7; Eosinophils % 2.7; HCT 38.6 % (36.0-46.0); HGB 11.9 g/dL (11.2-15.7); Immature Grans % 0.9; Lymphocytes % 16.5; MCH 28.5 pg (27.0-33.0); MCHC 30.8 % (32.0-36.0); MCV 92.3 fL (80-95); MPV 10.6 fL (8.0-11.0); Monocytes % 5.5; Neutrophils % 73.7; Platelet Count 326 10^3/uL (130-400); RBC 4.18 10^6/uL (3.93-5.22); RDW-SD 47.6 fL; WBC 10.57 10^3/uL (4.4-10.8)
[2022-03-15 09:29] LABS: ALT 27 U/L (14-59); AST 12 U/L (15-37); Albumin 3.2 g/dL (3.4-5.0); Alkaline Phosphatase 133 U/L (46-116); Anion Gap 6.6 mmol/L (3-11); BUN 57 mg/dL (7-18); Bilirubin, Total 0.3 mg/dL (0.2-1.0); CO2 23.4 mmol/L (21.0-32.0); CREATININE 1.9 mg/dL (0.55-1.02); Chloride 104 mmol/L (98-107); Estimated GFR 26.37 (mL/min/1.73m2); FREE T4 1.08 ng/dL (0.76-1.46); Glucose 217 mg/dL (74-106); Potassium 5.4 mmol/L (3.5-5.1); Sodium 134 mmol/L (136-145); Total Protein 7.8 g/dL (6.4-8.2)
[2022-03-15 10:20] LABS: COMMENT (LAB VIEW ONLY) 27.79 mg/dL
[2022-03-15 10:21] LABS: Microalb ug/mg Crea 807.1 ug/mg Cr
== END 2022-03-15 02:26 | disposition home or self-care (01) ==
LOC: LBO 02:25
PROVIDERS: PCP Physician Assistant; Visit Provider Internal Medicine
DX: C79.19 Secondary malignant neoplasm of other urinary organs (principal); I10 Essential (primary) hypertension; E11.9 Type 2 diabetes mellitus without complications; N18.30 Chronic kidney disease, stage 3 unspecified; D64.9 Anemia, unspecified; Z79.899 Other long term (current) drug therapy
CPT/HCPCS: 36415; 80053; 82043; 82570; 84439; 84443; 85025

== ENCOUNTER 2022-03-18 16:50 | Outpatient (REF) | payer BC, MEDICARE, SELFPAY ==
[2022-03-18 18:41] LABS: Bilirubin Negative (Negative); Blood Negative (Negative); Clarity Clear (Clear); Glucose Negative (Negative); Ketones Negative (Negative); Leukocyte Esterase Negative (Negative); Nitrite Negative (Negative); Specific Gravity 1.015 (1.005-1.025); Urobilinogen 0.2 EU/dL (Up TO 0.2)
[2022-03-18 18:45] LABS: Bacteria Negative HPF (Negative); C & S Indicated? No; Casts Negative LPF (Negative); Crystals Negative HPF (Negative); Epithelial Cells Rare HPF (Negative); Mucus Negative (Negative); Other Cells Negative (Negative); RBC Negative HPF (0-2)
== END 2022-03-18 16:51 | disposition home or self-care (01) ==
LOC: NCHCN 16:50
PROVIDERS: PCP Physician Assistant; Visit Provider Physician Assistant
DX: R30.0 Dysuria (principal)
CPT/HCPCS: 81003; 81015

== ENCOUNTER 2022-03-22 05:46 | Outpatient (CLI) | payer BC, MEDICARE, SELFPAY ==
[2022-03-22 07:39] LABS: Abs Immature Grans 0.08 10^3/uL (0.0-0.06); Absolute Basophil Count 0.09 10^3/uL (0.0-0.2); Absolute Eosinophil Count 0.24 10^3/uL (0.0-0.7); Absolute Lymphocyte Count 1.38 10^3/uL (1.2-3.4); Absolute Monocyte Count 0.63 10^3/uL (0.1-0.8); Absolute Neutrophil Count 5.95 10^3/uL (1.2-6.7); Basophils % 1.1; Eosinophils % 2.9; HCT 37.1 % (36.0-46.0); HGB 11.5 g/dL (11.2-15.7); Lymphocytes % 16.5; MCH 28.3 pg (27.0-33.0); MCV 91.4 fL (80-95); MPV 10.3 fL (8.0-11.0); Monocytes % 7.5; Platelet Count 253 10^3/uL (130-400); RBC 4.06 10^6/uL (3.93-5.22); RDW 14.2 % (11.7-14.6); RDW-SD 48.1 fL; WBC 8.37 10^3/uL (4.4-10.8)
[2022-03-22 07:59] LABS: ALT 29 U/L (14-59); AST 16 U/L (15-37); Albumin 2.9 g/dL (3.4-5.0); Alkaline Phosphatase 117 U/L (46-116); Anion Gap 4.1 mmol/L (3-11); BUN 57 mg/dL (7-18); Bilirubin, Total 0.3 mg/dL (0.2-1.0); CO2 24.9 mmol/L (21.0-32.0); CREATININE 1.6 mg/dL (0.55-1.02); Calcium 8.4 mg/dL (8.5-10.1); Chloride 105 mmol/L (98-107); Estimated GFR 32.15 (mL/min/1.73m2); FREE T4 1.18 ng/dL (0.76-1.46); Glucose 180 mg/dL (74-106); Potassium 5.3 mmol/L (3.5-5.1); Sodium 134 mmol/L (136-145); TSH 2.49 uIU/mL (0.36-3.74)
== END 2022-03-22 05:47 | disposition home or self-care (01) ==
LOC: LBO 05:46
PROVIDERS: PCP Physician Assistant; Visit Provider Internal Medicine
DX: C79.10 Secondary malignant neoplasm of unspecified urinary organs (principal); Z79.899 Other long term (current) drug therapy
CPT/HCPCS: 36415; 80053; 84439; 84443; 85025

== ENCOUNTER 2022-04-05 02:03 | Outpatient (CLI) | payer BC, MEDICARE, SELFPAY ==
[2022-04-05 09:27] LABS: Abs Immature Grans 0.06 10^3/uL (0.0-0.06); Absolute Lymphocyte Count 1.48 10^3/uL (1.2-3.4); Absolute Neutrophil Count 6.72 10^3/uL (1.2-6.7); Basophils % 1.1; Eosinophils % 4.3; HCT 37.2 % (36.0-46.0); HGB 11.4 g/dL (11.2-15.7); Immature Grans % 0.6; Lymphocytes % 15.8; MCH 28.1 pg (27.0-33.0); MCHC 30.6 % (32.0-36.0); MCV 92 fL (80-95); MPV 10.4 fL (8.0-11.0); Monocytes % 6.4; Neutrophils % 71.8; Platelet Count 283 10^3/uL (130-400); RBC 4.05 10^6/uL (3.93-5.22); RDW 14.4 % (11.7-14.6); RDW-SD 48.4 fL; WBC 9.36 10^3/uL (4.4-10.8)
[2022-04-05 09:51] LABS: ALT 31 U/L (14-59); AST 13 U/L (15-37); Alkaline Phosphatase 120 U/L (46-116); BUN 40 mg/dL (7-18); Bilirubin, Total 0.4 mg/dL (0.2-1.0); CREATININE 1.4 mg/dL (0.55-1.02); Calcium 8.7 mg/dL (8.5-10.1); Chloride 104 mmol/L (98-107); Estimated GFR 37.51 (mL/min/1.73m2); Glucose 123 mg/dL (74-106); Potassium 4.7 mmol/L (3.5-5.1); Sodium 136 mmol/L (136-145); TSH 2.77 uIU/mL (0.36-3.74); Total Protein 7.1 g/dL (6.4-8.2)
== END 2022-04-05 02:04 | disposition home or self-care (01) ==
PROVIDERS: Internal Medicine; PCP Physician Assistant; Visit Provider Nurse Practitioner Adult Health
DX: C79.10 Secondary malignant neoplasm of unspecified urinary organs (principal); Z79.899 Other long term (current) drug therapy
CPT/HCPCS: 36415; 80053; 84439; 84443; 85025

== ENCOUNTER 2022-04-12 02:14 | Outpatient (CLI) | payer BC, MEDICARE, SELFPAY ==
[2022-04-12 09:33] LABS: Abs Immature Grans 0.07 10^3/uL (0.0-0.06); Absolute Basophil Count 0.12 10^3/uL (0.0-0.2); Absolute Eosinophil Count 0.46 10^3/uL (0.0-0.7); Absolute Lymphocyte Count 1.73 10^3/uL (1.2-3.4); Absolute Monocyte Count 0.81 10^3/uL (0.1-0.8); Absolute Neutrophil Count 7.47 10^3/uL (1.2-6.7); Basophils % 1.1; Eosinophils % 4.3; Immature Grans % 0.7; Lymphocytes % 16.2; MCH 28.2 pg (27.0-33.0); MCHC 31.6 % (32.0-36.0); MCV 89 fL (80-95); MPV 10.7 fL (8.0-11.0); Monocytes % 7.6; Neutrophils % 70.1; Platelet Count 295 10^3/uL (130-400); RBC 4.25 10^6/uL (3.93-5.22); RDW 13.9 % (11.7-14.6); RDW-SD 45.1 fL; WBC 10.66 10^3/uL (4.4-10.8)
[2022-04-12 09:45] LABS: ALT 30 U/L (14-59); AST 17 U/L (15-37); Albumin 3.2 g/dL (3.4-5.0); Alkaline Phosphatase 120 U/L (46-116); Anion Gap 8.7 mmol/L (3-11); BUN 55 mg/dL (7-18); Bilirubin, Total 0.3 mg/dL (0.2-1.0); CO2 27.3 mmol/L (21.0-32.0); CREATININE 1.6 mg/dL (0.55-1.02); Chloride 102 mmol/L (98-107); Estimated GFR 32.15 (mL/min/1.73m2); Glucose 152 mg/dL (74-106); Potassium 4.8 mmol/L (3.5-5.1); Sodium 138 mmol/L (136-145); Total Protein 7.5 g/dL (6.4-8.2)
[2022-04-12 11:04] LABS: FREE T4 1.28 ng/dL (0.76-1.46); TSH 2.67 uIU/mL (0.36-3.74)
== END 2022-04-12 02:15 | disposition home or self-care (01) ==
PROVIDERS: Internal Medicine; PCP Physician Assistant; Visit Provider Nurse Practitioner Adult Health
DX: C79.10 Secondary malignant neoplasm of unspecified urinary organs (principal); Z79.899 Other long term (current) drug therapy
CPT/HCPCS: 36415; 80053; 84439; 84443; 85025

== ENCOUNTER 2022-04-19 02:48 | Outpatient (CLI) | payer BC, MEDICARE, SELFPAY ==
[2022-04-19 09:29] LABS: Absolute Basophil Count 0.07 10^3/uL (0.0-0.2); Absolute Eosinophil Count 0.39 10^3/uL (0.0-0.7); Absolute Lymphocyte Count 0.93 10^3/uL (1.2-3.4); Absolute Monocyte Count 0.66 10^3/uL (0.1-0.8); Absolute Neutrophil Count 5.65 10^3/uL (1.2-6.7); Basophils % 0.9; HCT 36.9 % (36.0-46.0); HGB 11.6 g/dL (11.2-15.7); Immature Grans % 1.3; Lymphocytes % 11.9; MCH 28.6 pg (27.0-33.0); MCHC 31.4 % (32.0-36.0); MCV 91 fL (80-95); MPV 10.2 fL (8.0-11.0); Monocytes % 8.5; Neutrophils % 72.4; Platelet Count 220 10^3/uL (130-400); RBC 4.06 10^6/uL (3.93-5.22); RDW 13.8 % (11.7-14.6)
[2022-04-19 09:58] LABS: ALT 34 U/L (14-59); AST 20 U/L (15-37); Alkaline Phosphatase 118 U/L (46-116); Anion Gap 7.9 mmol/L (3-11); BUN 30 mg/dL (7-18); Bilirubin, Total 0.4 mg/dL (0.2-1.0); CO2 27.1 mmol/L (21.0-32.0); CREATININE 1.6 mg/dL (0.55-1.02); Calcium 8.2 mg/dL (8.5-10.1); Chloride 101 mmol/L (98-107); Estimated GFR 32.05 (mL/min/1.73m2); FREE T4 1.24 ng/dL (0.76-1.46); Glucose 260 mg/dL (74-106); Potassium 4.2 mmol/L (3.5-5.1); Sodium 136 mmol/L (136-145); TSH 2.68 uIU/mL (0.36-3.74); Total Protein 7.2 g/dL (6.4-8.2)
== END 2022-04-19 02:49 | disposition home or self-care (01) ==
LOC: LBO 02:48
PROVIDERS: PCP Physician Assistant; Visit Provider Internal Medicine
DX: C79.10 Secondary malignant neoplasm of unspecified urinary organs (principal)
CPT/HCPCS: 36415; 80053; 84439; 84443; 85025

== ENCOUNTER 2022-05-03 15:32 | Outpatient (CLI) | payer BC, MEDICARE, SELFPAY ==
[2022-05-03 08:45] LABS: Abs Immature Grans 0.04 10^3/uL (0.0-0.06); Absolute Basophil Count 0.08 10^3/uL (0.0-0.2); Absolute Lymphocyte Count 1.67 10^3/uL (1.2-3.4); Absolute Monocyte Count 0.78 10^3/uL (0.1-0.8); Absolute Neutrophil Count 2.65 10^3/uL (1.2-6.7); Basophils % 1.5; Eosinophils % 3.7; HCT 36.7 % (36.0-46.0); HGB 11.3 g/dL (11.2-15.7); Immature Grans % 0.7; Lymphocytes % 30.8; MCH 27.9 pg (27.0-33.0); MCHC 30.8 % (32.0-36.0); MCV 91 fL (80-95); MPV 10.7 fL (8.0-11.0); Monocytes % 14.4; Neutrophils % 48.9; Platelet Count 281 10^3/uL (130-400); RBC 4.05 10^6/uL (3.93-5.22); RDW 14.6 % (11.7-14.6); RDW-SD 48.9 fL; WBC 5.42 10^3/uL (4.4-10.8)
[2022-05-03 09:06] LABS: ALT 43 U/L (14-59); AST 27 U/L (15-37); Albumin 2.8 g/dL (3.4-5.0); Alkaline Phosphatase 113 U/L (46-116); Anion Gap 7.5 mmol/L (3-11); BUN 30 mg/dL (7-18); Bilirubin, Total 0.3 mg/dL (0.2-1.0); CO2 25.5 mmol/L (21.0-32.0); CREATININE 1.4 mg/dL (0.55-1.02); Calcium 8.3 mg/dL (8.5-10.1); Chloride 105 mmol/L (98-107); Estimated GFR 37.39 (mL/min/1.73m2); FREE T4 1.25 ng/dL (0.76-1.46); Glucose 158 mg/dL (74-106); Potassium 4.3 mmol/L (3.5-5.1); Sodium 138 mmol/L (136-145); TSH 2.86 uIU/mL (0.36-3.74)
== END 2022-05-03 15:33 | disposition home or self-care (01) ==
LOC: LBO 15:40
PROVIDERS: PCP Physician Assistant; Visit Provider Nurse Practitioner Adult Health
DX: C79.10 Secondary malignant neoplasm of unspecified urinary organs (principal); Z79.899 Other long term (current) drug therapy
CPT/HCPCS: 36415; 80053; 84439; 84443; 85025

== ENCOUNTER 2022-05-10 08:40 | Outpatient (CLI) | payer BC, MEDICARE, SELFPAY ==
[2022-05-10 08:55] LABS: Abs Immature Grans 0.06 10^3/uL (0.0-0.06); Absolute Basophil Count 0.12 10^3/uL (0.0-0.2); Absolute Eosinophil Count 0.13 10^3/uL (0.0-0.7); Absolute Neutrophil Count 9.69 10^3/uL (1.2-6.7); Basophils % 0.9; HCT 37.4 % (36.0-46.0); HGB 11.9 g/dL (11.2-15.7); Immature Grans % 0.5; Lymphocytes % 14.8; MCH 28.6 pg (27.0-33.0); MCHC 31.8 % (32.0-36.0); MCV 90 fL (80-95); MPV 10.2 fL (8.0-11.0); Monocytes % 7.5; Neutrophils % 75.3; Platelet Count 266 10^3/uL (130-400); RBC 4.16 10^6/uL (3.93-5.22); RDW 14.1 % (11.7-14.6); RDW-SD 46.4 fL; WBC 12.87 10^3/uL (4.4-10.8)
[2022-05-10 08:56] LABS: Absolute Monocyte Count 0.97 10^3/uL (0.1-0.8)
[2022-05-10 09:19] LABS: ALT 41 U/L (14-59); AST 25 U/L (15-37); Alkaline Phosphatase 108 U/L (46-116); BUN 43 mg/dL (7-18); Bilirubin, Total 0.4 mg/dL (0.2-1.0); CREATININE 1.7 mg/dL (0.55-1.02); Calcium 9.5 mg/dL (8.5-10.1); Chloride 103 mmol/L (98-107); Estimated GFR 29.89 (mL/min/1.73m2); FREE T4 1.29 ng/dL (0.76-1.46); Glucose 105 mg/dL (74-106); Potassium 4.3 mmol/L (3.5-5.1); Sodium 137 mmol/L (136-145); TSH 2.44 uIU/mL (0.36-3.74); Total Protein 7.3 g/dL (6.4-8.2)
== END 2022-05-10 08:41 | disposition home or self-care (01) ==
LOC: LBO 08:41
PROVIDERS: PCP Physician Assistant; Visit Provider Nurse Practitioner Adult Health
DX: C79.19 Secondary malignant neoplasm of other urinary organs (principal); Z79.899 Other long term (current) drug therapy
CPT/HCPCS: 36415; 80053; 84439; 84443; 85025

== ENCOUNTER 2022-05-17 12:58 | Outpatient (CLI) | payer BC, MEDICARE, SELFPAY ==
[2022-05-17 08:46] LABS: Absolute Basophil Count 0.08 10^3/uL (0.0-0.2); Absolute Eosinophil Count 0.26 10^3/uL (0.0-0.7); Absolute Lymphocyte Count 1.48 10^3/uL (1.2-3.4); Absolute Monocyte Count 0.73 10^3/uL (0.1-0.8); Absolute Neutrophil Count 7.27 10^3/uL (1.2-6.7); Basophils % 0.8; Eosinophils % 2.6; HCT 37.9 % (36.0-46.0); HGB 12.3 g/dL (11.2-15.7); Lymphocytes % 14.9; MCH 28.8 pg (27.0-33.0); MCHC 32.5 % (32.0-36.0); MCV 89 fL (80-95); MPV 10.5 fL (8.0-11.0); Monocytes % 7.4; Neutrophils % 73.3; Platelet Count 234 10^3/uL (130-400); RBC 4.27 10^6/uL (3.93-5.22); RDW 14.1 % (11.7-14.6); RDW-SD 45.2 fL; WBC 9.92 10^3/uL (4.4-10.8)
[2022-05-17 09:14] LABS: ALT 30 U/L (14-59); AST 20 U/L (15-37); Albumin 3.1 g/dL (3.4-5.0); Alkaline Phosphatase 115 U/L (46-116); Anion Gap 7.9 mmol/L (3-11); BUN 39 mg/dL (7-18); Bilirubin, Total 0.3 mg/dL (0.2-1.0); CO2 26.1 mmol/L (21.0-32.0); CREATININE 1.7 mg/dL (0.55-1.02); Calcium 8.9 mg/dL (8.5-10.1); Chloride 101 mmol/L (98-107); Estimated GFR 29.89 (mL/min/1.73m2); Glucose 187 mg/dL (74-106); Potassium 4.3 mmol/L (3.5-5.1); Sodium 135 mmol/L (136-145); Total Protein 7.5 g/dL (6.4-8.2)
[2022-05-17 09:42] LABS: FREE T4 1.37 ng/dL (0.76-1.46); TSH 3.21 uIU/mL (0.36-3.74)
== END 2022-05-17 12:59 | disposition home or self-care (01) ==
LOC: LBO 12:59
PROVIDERS: PCP Physician Assistant; Visit Provider Nurse Practitioner Adult Health
DX: C79.19 Secondary malignant neoplasm of other urinary organs (principal); Z79.899 Other long term (current) drug therapy
CPT/HCPCS: 36415; 80053; 84439; 84443; 85025

== ENCOUNTER 2022-05-31 03:35 | Outpatient (CLI) | payer BC, MEDICARE, SELFPAY ==
[2022-05-31 07:45] LABS: Abs Immature Grans 0.06 10^3/uL (0.0-0.06); Absolute Basophil Count 0.09 10^3/uL (0.0-0.2); Absolute Eosinophil Count 0.31 10^3/uL (0.0-0.7); Absolute Lymphocyte Count 1.46 10^3/uL (1.2-3.4); Absolute Monocyte Count 0.66 10^3/uL (0.1-0.8); Absolute Neutrophil Count 5.83 10^3/uL (1.2-6.7); Basophils % 1.1; Eosinophils % 3.7; HCT 36.3 % (36.0-46.0); HGB 11.5 g/dL (11.2-15.7); Immature Grans % 0.7; Lymphocytes % 17.4; MCH 28.3 pg (27.0-33.0); MCHC 31.7 % (32.0-36.0); MCV 89 fL (80-95); MPV 10.2 fL (8.0-11.0); Monocytes % 7.8; Neutrophils % 69.3; Platelet Count 271 10^3/uL (130-400); RBC 4.06 10^6/uL (3.93-5.22); RDW 14.9 % (11.7-14.6); RDW-SD 48.1 fL; WBC 8.41 10^3/uL (4.4-10.8)
[2022-05-31 08:12] LABS: ALT 49 U/L (14-59); AST 22 U/L (15-37); Albumin 2.8 g/dL (3.4-5.0); Alkaline Phosphatase 106 U/L (46-116); Anion Gap 9.5 mmol/L (3-11); BUN 39 mg/dL (7-18); Bilirubin, Total 0.3 mg/dL (0.2-1.0); CO2 22.5 mmol/L (21.0-32.0); CREATININE 1.5 mg/dL (0.55-1.02); Calcium 8.4 mg/dL (8.5-10.1); Chloride 106 mmol/L (98-107); Estimated GFR 34.53 (mL/min/1.73m2); FREE T4 1.08 ng/dL (0.76-1.46); Glucose 118 mg/dL (74-106); Potassium 4.2 mmol/L (3.5-5.1); Sodium 138 mmol/L (136-145); TSH 3.18 uIU/mL (0.36-3.74)
== END 2022-05-31 03:36 | disposition home or self-care (01) ==
LOC: LBO 03:37
PROVIDERS: PCP Physician Assistant; Visit Provider Internal Medicine
DX: C79.19 Secondary malignant neoplasm of other urinary organs (principal); Z79.899 Other long term (current) drug therapy
CPT/HCPCS: 36415; 80053; 84439; 84443; 85025

== ENCOUNTER 2022-06-07 02:59 | Outpatient (CLI) | payer BC, MEDICARE, SELFPAY ==
[2022-06-07 07:24] LABS: Abs Immature Grans 0.12 10^3/uL (0.0-0.06); Absolute Basophil Count 0.12 10^3/uL (0.0-0.2); Absolute Eosinophil Count 0.19 10^3/uL (0.0-0.7); Absolute Lymphocyte Count 1.52 10^3/uL (1.2-3.4); Absolute Monocyte Count 0.81 10^3/uL (0.1-0.8); Absolute Neutrophil Count 7.04 10^3/uL (1.2-6.7); Basophils % 1.2; Eosinophils % 1.9; HCT 38.5 % (36.0-46.0); Immature Grans % 1.2; Lymphocytes % 15.5; MCH 28.3 pg (27.0-33.0); MCHC 31.2 % (32.0-36.0); MCV 91 fL (80-95); MPV 10.8 fL (8.0-11.0); Monocytes % 8.3; Neutrophils % 71.9; Platelet Count 264 10^3/uL (130-400); RBC 4.24 10^6/uL (3.93-5.22); RDW 14.7 % (11.7-14.6); RDW-SD 48.6 fL
[2022-06-07 07:47] LABS: ALT 47 U/L (14-59); AST 23 U/L (15-37); Albumin 2.9 g/dL (3.4-5.0); Alkaline Phosphatase 116 U/L (46-116); Anion Gap 7.7 mmol/L (3-11); BUN 31 mg/dL (7-18); Bilirubin, Total 0.3 mg/dL (0.2-1.0); CO2 27.3 mmol/L (21.0-32.0); CREATININE 1.5 mg/dL (0.55-1.02); Calcium 8.7 mg/dL (8.5-10.1); Chloride 105 mmol/L (98-107); Estimated GFR 34.53 (mL/min/1.73m2); FREE T4 1.24 ng/dL (0.76-1.46); Glucose 125 mg/dL (74-106); Potassium 4.5 mmol/L (3.5-5.1); Sodium 140 mmol/L (136-145); Total Protein 7.4 g/dL (6.4-8.2)
== END 2022-06-07 03:00 | disposition home or self-care (01) ==
PROVIDERS: PCP Physician Assistant; Visit Provider Nurse Practitioner Adult Health
DX: C79.10 Secondary malignant neoplasm of unspecified urinary organs (principal); Z79.899 Other long term (current) drug therapy
CPT/HCPCS: 36415; 80053; 84439; 84443; 85025

== ENCOUNTER 2022-06-14 01:56 | Outpatient (CLI) | payer BC, MEDICARE, SELFPAY ==
[2022-06-14 08:16] LABS: Abs Immature Grans 0.19 10^3/uL (0.0-0.06); Absolute Basophil Count 0.12 10^3/uL (0.0-0.2); Absolute Eosinophil Count 0.23 10^3/uL (0.0-0.7); Absolute Lymphocyte Count 1.58 10^3/uL (1.2-3.4); Absolute Monocyte Count 0.88 10^3/uL (0.1-0.8); Absolute Neutrophil Count 9.36 10^3/uL (1.2-6.7); Eosinophils % 1.9; HCT 37.6 % (36.0-46.0); HGB 11.8 g/dL (11.2-15.7); Immature Grans % 1.5; Lymphocytes % 12.8; MCHC 31.4 % (32.0-36.0); MCV 89 fL (80-95); Monocytes % 7.1; Neutrophils % 75.7; Platelet Count 234 10^3/uL (130-400); RBC 4.21 10^6/uL (3.93-5.22); RDW 14.6 % (11.7-14.6); RDW-SD 46.9 fL; WBC 12.36 10^3/uL (4.4-10.8)
[2022-06-14 08:49] LABS: ALT 38 U/L (14-59); AST 26 U/L (15-37); Albumin 2.9 g/dL (3.4-5.0); Alkaline Phosphatase 117 U/L (46-116); Anion Gap 9.9 mmol/L (3-11); BUN 42 mg/dL (7-18); Bilirubin, Total 0.3 mg/dL (0.2-1.0); CO2 24.1 mmol/L (21.0-32.0); CREATININE 1.7 mg/dL (0.55-1.02); Calcium 9.4 mg/dL (8.5-10.1); Chloride 103 mmol/L (98-107); Estimated GFR 29.89 (mL/min/1.73m2); FREE T4 1.22 ng/dL (0.76-1.46); Glucose 152 mg/dL (74-106); Potassium 4.4 mmol/L (3.5-5.1); Sodium 137 mmol/L (136-145); TSH 3.07 uIU/mL (0.36-3.74); Total Protein 7.5 g/dL (6.4-8.2)
== END 2022-06-14 01:57 | disposition home or self-care (01) ==
LOC: LBO 01:56
PROVIDERS: PCP Physician Assistant; Visit Provider Internal Medicine
DX: C79.10 Secondary malignant neoplasm of unspecified urinary organs (principal); Z79.899 Other long term (current) drug therapy
CPT/HCPCS: 36415; 80053; 84439; 84443; 85025

== ENCOUNTER 2022-06-28 03:16 | Outpatient (CLI) | payer BC, MEDICARE, SELFPAY ==
[2022-06-28 09:57] LABS: Abs Immature Grans 0.04 10^3/uL (0.0-0.06); Absolute Basophil Count 0.08 10^3/uL (0.0-0.2); Absolute Eosinophil Count 0.25 10^3/uL (0.0-0.7); Absolute Lymphocyte Count 1.66 10^3/uL (1.2-3.4); Absolute Monocyte Count 0.81 10^3/uL (0.1-0.8); Basophils % 0.9; Eosinophils % 2.8; HCT 39.3 % (36.0-46.0); HGB 12.1 g/dL (11.2-15.7); Immature Grans % 0.5; Lymphocytes % 18.8; MCH 27.8 pg (27.0-33.0); MCHC 30.8 % (32.0-36.0); MCV 90 fL (80-95); MPV 10.6 fL (8.0-11.0); Monocytes % 9.2; Neutrophils % 67.8; Platelet Count 294 10^3/uL (130-400); RBC 4.35 10^6/uL (3.93-5.22); RDW 15.3 % (11.7-14.6); RDW-SD 50.8 fL; WBC 8.84 10^3/uL (4.4-10.8)
[2022-06-28 10:19] LABS: ALT 59 U/L (14-59); AST 29 U/L (15-37); Albumin 2.9 g/dL (3.4-5.0); Alkaline Phosphatase 110 U/L (46-116); Anion Gap 5.9 mmol/L (3-11); BUN 32 mg/dL (7-18); Bilirubin, Total 0.3 mg/dL (0.2-1.0); CO2 25.1 mmol/L (21.0-32.0); CREATININE 1.5 mg/dL (0.55-1.02); Calcium 8.9 mg/dL (8.5-10.1); Chloride 103 mmol/L (98-107); Estimated GFR 34.53 (mL/min/1.73m2); FREE T4 1.31 ng/dL (0.76-1.46); Glucose 102 mg/dL (74-106); Potassium 4.8 mmol/L (3.5-5.1); Sodium 134 mmol/L (136-145); TSH 2.55 uIU/mL (0.36-3.74); Total Protein 7.5 g/dL (6.4-8.2)
== END 2022-06-28 03:17 | disposition home or self-care (01) ==
LOC: LBO 03:16
PROVIDERS: PCP Physician Assistant; Visit Provider Internal Medicine
DX: C79.10 Secondary malignant neoplasm of unspecified urinary organs (principal); Z79.899 Other long term (current) drug therapy
CPT/HCPCS: 36415; 80053; 84439; 84443; 85025

== ENCOUNTER 2022-07-29 16:21 | Outpatient (REF) | payer BC, MEDICARE, SELFPAY ==
[2022-07-29 17:07] LABS: HCT 36.9 % (36.0-46.0); HGB 11.6 g/dL (11.2-15.7); MCH 28.6 pg (27.0-33.0); MCHC 31.4 % (32.0-36.0); MCV 91 fL (80-95); MPV 10.6 fL (8.0-11.0); Platelet Count 287 10^3/uL (130-400); RBC 4.05 10^6/uL (3.93-5.22); RDW 15.9 % (11.7-14.6); RDW-SD 53.1 fL; WBC 14.29 10^3/uL (4.4-10.8)
[2022-07-29 17:41] LABS: Hemoglobin A1C 7.8 % (<5.7)
[2022-07-29 17:53] LABS: ALT 24 U/L (14-59); AST 24 U/L (15-37); Albumin 3.1 g/dL (3.4-5.0); Alkaline Phosphatase 113 U/L (46-116); Anion Gap 10.4 mmol/L (3-11); BUN 62 mg/dL (7-18); Bilirubin, Total 0.2 mg/dL (0.2-1.0); CO2 20.6 mmol/L (21.0-32.0); CREATININE 2.5 mg/dL (0.55-1.02); Calcium 8.1 mg/dL (8.5-10.1); Chloride 105 mmol/L (98-107); Estimated GFR 20.44 (mL/min/1.73m2); Glucose 183 mg/dL (74-106); Potassium 4.8 mmol/L (3.5-5.1); Sodium 136 mmol/L (136-145); Total Protein 7.9 g/dL (6.4-8.2)
== END 2022-07-29 16:22 | disposition home or self-care (01) ==
LOC: NCHCN 16:21
PROVIDERS: PCP Physician Assistant; Visit Provider Physician Assistant
DX: E11.9 Type 2 diabetes mellitus without complications (principal); I10 Essential (primary) hypertension; N18.30 Chronic kidney disease, stage 3 unspecified
CPT/HCPCS: 80053; 85027; 83036

== ENCOUNTER 2022-08-09 04:07 | Outpatient (CLI) | payer BC, MEDICARE, SELFPAY ==
[2022-08-09 10:35] LABS: Abs Immature Grans 0.11 10^3/uL (0.0-0.06); Absolute Basophil Count 0.08 10^3/uL (0.0-0.2); Absolute Lymphocyte Count 1.85 10^3/uL (1.2-3.4); Basophils % 0.7; Eosinophils % 2.5; HGB 11.7 g/dL (11.2-15.7); Immature Grans % 0.9; Lymphocytes % 15.5; MCH 28.3 pg (27.0-33.0); MCHC 30.8 % (32.0-36.0); MCV 92 fL (80-95); MPV 9.9 fL (8.0-11.0); Monocytes % 5.9; Neutrophils % 74.5; Platelet Count 291 10^3/uL (130-400); RBC 4.14 10^6/uL (3.93-5.22); RDW 15.7 % (11.7-14.6); RDW-SD 52.6 fL; WBC 11.96 10^3/uL (4.4-10.8)
[2022-08-09 10:36] LABS: Absolute Monocyte Count 0.71 10^3/uL (0.1-0.8); Absolute Neutrophil Count 8.91 10^3/uL (1.2-6.7)
[2022-08-09 11:12] LABS: ALT 24 U/L (14-59); AST 15 U/L (15-37); Albumin 3.2 g/dL (3.4-5.0); Alkaline Phosphatase 115 U/L (46-116); Anion Gap 6.8 mmol/L (3-11); BUN 52 mg/dL (7-18); Bilirubin, Total 0.3 mg/dL (0.2-1.0); CO2 28.2 mmol/L (21.0-32.0); CREATININE 2.3 mg/dL (0.55-1.02); Calcium 8.9 mg/dL (8.5-10.1); Chloride 102 mmol/L (98-107); Estimated GFR 22.59 (mL/min/1.73m2); FREE T4 1.13 ng/dL (0.76-1.46); Glucose 116 mg/dL (74-106); Sodium 137 mmol/L (136-145); TSH 2.28 uIU/mL (0.36-3.74)
== END 2022-08-09 04:08 | disposition home or self-care (01) ==
LOC: LBO 04:08
PROVIDERS: PCP Physician Assistant; Visit Provider Internal Medicine
DX: C79.10 Secondary malignant neoplasm of unspecified urinary organs (principal); C80.1 Malignant (primary) neoplasm, unspecified; Z79.899 Other long term (current) drug therapy
CPT/HCPCS: 36415; 80053; 84439; 84443; 85025

== ENCOUNTER 2022-08-23 13:52 | Outpatient (REF) | payer BC, MEDICARE, SELFPAY ==
[2022-08-23 15:41] LABS: HCT 35.6 % (36.0-46.0); MCH 28.6 pg (27.0-33.0); MCHC 30.9 % (32.0-36.0); MCV 93 fL (80-95); MPV 11.1 fL (8.0-11.0); Platelet Count 300 10^3/uL (130-400); RBC 3.85 10^6/uL (3.93-5.22); RDW 15.2 % (11.7-14.6); RDW-SD 51.8 fL; WBC 11.87 10^3/uL (4.4-10.8)
[2022-08-23 15:59] LABS: Anion Gap 10.1 mmol/L (3-11); BUN 54 mg/dL (7-18); CO2 22.9 mmol/L (21.0-32.0); CREATININE 2.1 mg/dL (0.55-1.02); Calcium 8.5 mg/dL (8.5-10.1); Chloride 102 mmol/L (98-107); Estimated GFR 25.19 (mL/min/1.73m2); Glucose 175 mg/dL (74-106); Potassium 5.6 mmol/L (3.5-5.1); Sodium 135 mmol/L (136-145)
== END 2022-08-23 13:53 | disposition home or self-care (01) ==
LOC: NCHCN 13:52
PROVIDERS: PCP Physician Assistant; Visit Provider Physician Assistant
DX: N18.30 Chronic kidney disease, stage 3 unspecified (principal)
CPT/HCPCS: 80048; 85027

== ENCOUNTER → 2022-08-26 00:57 | Outpatient (CLI) | payer BC, MEDICARE, SELFPAY ==
--- NOTE | 2022-08-26 07:00 | DI.US_ITS ---
Exam(s) US RENAL EXAM: US RENAL CLINICAL HISTORY: CHRONIC KIDNEY DISEASE STAGE IIIB, N18.30; INCREASING CREATININE TECHNIQUE: Ultrasound performed using standard protocol. COMPARISON: No exams were available for comparison FINDINGS: Patient has reportedly had a prior right nephrectomy. Left kidney measures 12.7 x 5.4 x 7.0 cm. No hydronephrosis, nephrolithiasis, or renal mass. Urinary bladder unremarkable in appearance and contains 122 cc of urine. Patient was unable to void. Left ureteral jet was nonvisualized. IMPRESSION: Negative renal ultrasound post right nephrectomy.. DATA REPOSITORY:
== END ==
PROVIDERS: PCP Physician Assistant; Visit Provider Physician Assistant
DX: N18.30 Chronic kidney disease, stage 3 unspecified (principal)
CPT/HCPCS: 76770

== ENCOUNTER 2022-09-01 09:51 | Emergency (ER) | payer BC, MEDICARE, SELFPAY ==
[2022-09-01 10:00] VITALS: BP 169/71; PULSE 81; RESP 18; TEMP 36.6; O2SAT 96
--- NOTE | 2022-09-01 10:00 | DI.CT_ITS ---
Exam(s) CT LUMBAR SPINE RECONS CT ABDOMEN PELVIS WO EXAM: CT ABDOMEN PELVIS WO INDICATION: lower back radiating to abdomen pain. COMPARISON: CT CT ABDOMEN PELVIS WO from 08/11/2021 TECHNIQUE: FINDINGS: CT examination of the abdomen and pelvis was performed without contrast administration. Lumbosacral spine CT reconstructions were also obtained. Note is made of coronary artery calcification. Images obtained through the lung bases are unremarkable. The liver is unremarkable in appearance. Gallbladder and bile ducts are CT normal. Pancreas appears normal. Spleen is unremarkable in appearance. Adrenals appear normal. There is apparently been a prior right nephrectomy. Left kidney is unremarkable in appearance except for some likely vascular calcifications of the upper pole. No left hydronephrosis or hydroureter. Urinary bladder is nearly empty but grossly unremarkable.. Abdominal aorta is of normal diameter and no major vascular abnormality is seen. No abdominal wall hernia. No abdominal or pelvic adenopathy. The uterus is atrophic or absent. Appendix is normal. No evidence of diverticulitis or bowel obstruction. There are sclerotic lesions of the sacrum, the vertebral body of L5, and the left lamina of L4. Thes e findings were not present on prior CT examination of July 2021 and are highly suspicious for s clerotic metastatic disease. No acute fracture identified. IMPRESSION: No evidence of acute intra-abdominal process. New sclerotic lesions, highly suspicious for metastatic disease, of L4, L5, and S1 as described above . No acute fracture. RADIATION DOSE DELIVERED: Total DLP Total DLP !Error CTDIvol RADIATION OPTIMIZATION: All CT scans at this facility use at least one of these dose optimization te chniques: automated exposure control; mA and/or kV adjustment per patient size (includes targeted exa ms where dose is matched to clinical indication); or iterative reconstruction.
--- NOTE | 2022-09-01 10:15 | ED.GENADUL_ITS ---
Discharge Plan Disposition Patient Disposition: HOME Condition: Stable Discharge Details Clinical Impression: Back pain, Left flank pain Primary Care Provider: Derek Torres ED Provider: Papa Mariano Home Meds and New Rx's Prescriptions: Continued naloxone [Narcan] 4 mg/actuation spray,non-aerosol 1 spray intranasal Q2-3M PRN (Reason: opioid overdose) Qty: 2 0RF Rx Instructions: spray 1 dose into ONE nostril; alternate nostrils w each dose until help arrives cholecalciferol (vitamin D3) 1,000 UNIT capsule 1,000 iu PO QAM Qty: 100 nystatin-triamcinolone 15 GM cream 1 applic Topical BID PRN PRNQty: 12 (DME) OneTouch Ultra Test 1 EACH strip 1 ea Miscellaneous ac and hs Qty: 400 Rx Instructions: dx: E11.65 on insulin with labile blood sugars and risk for hypoglycemia prochlorperazine maleate 10 mg tablet 10 mg PO Q6H PRN Label Comments: TAKE ONE TABLET BY MOUTH EVERY 6 HOURS NEEDED FOR NAUSEA never had to use sennosides [senna] 8.6 mg tablet 17.2 mg PO BID Label Comments: TAKE TWO TABLETS BY MOUTH TWICE A DAY Fleet Enema 19-7 gram/118 mL Enema 118 ml MD ONCE PRN furosemide 20 mg tablet 20 mg PO DAILY PRN losartan 100 mg tablet 100 mg PO DAILY Label Comments: TAKE ONE TABLET BY MOUTH EVERY DAY docusate sodium 100 mg Capsule 100 mg PO DAILY PRN polyethylene glycol 3350 17 gram powder in packet 17 g PO DAILY PRN PRN Label Comments: USE 1 PACKET DAILY IN 8OZ OF LIQUID NEEDED FOR CONSTIPATION ondansetron HCl 8 mg tablet 8 mg PO Q8H PRN PRN Label Comments: TAKE ONE TABLET BY MOUTH EVERY 8 HOURS NEEDED FOR NAUSEA Eliquis 5 mg tablet 5 mg PO BID Qty: 70 0RF Rx Instructions: take 10 mg twice daily for 7 days, then 5 mg twice daily Tresiba FlexTouch U-100 100 UNIT/1 ML insulin pen 56 unit SQ QAM insulin lispro [Humalog KwikPen Insulin] 100 unit/mL insulin pen 0 - 6 unit SUBCUT PRN PRN Label Comments: INJECT SUBCUTANEOUSLY PER SLIDING SCALE THREE TIMES A DAY BEFORE MEALS 101TO 150 2 UNITS 151 TO 200 4 UNITS 201 TO 250 6 UNITS 251 TO 3 hydromorphone 2 mg tablet 2 mg PO Q6H PRNQty: 8 0RF metoprolol tartrate 25 mg tablet 25 mg PO BID acetaminophen 325 mg Tablet 325 mg PO PRN PRN sucralfate 1 gram Tablet 1 g PO QID chlorthalidone 25 mg Tablet 25 mg PO diphenhydramine HCl 25 mg Tablet 25 mg PO Q6H hydrocortisone 2.5 % Cream 1 applic TOPICAL BID Discharge Instructions Instructions: Back Pain (ED) Additional Instructions: your blood work did not show concerning findings at this time. Your cat scan showed lesions in the bone of the spine which is likely related to your cancer follow up with your oncologist if you feel more ill, have severe worsening pain or fevers return to the emergency department Medical Decision Making 67 yo female with hx of bladder cancer htn, dm, who comes in with 3 years of lo wer back pain radiating down the left leg but has been worsening the last 2-3 weeks. Denies any fevers, chills, chest pain, dyspnea, difficulty urinating or dysuria. She feels sometimes it radiates to the abdomen, denies current abdomen pain. She took tylenol last night and oral hydromorphone last night but doesn't like the way it makes her feel so avoided it today. She denies any weakness or numbness, can't think of anything that makes the pain better or worse. She arrives stable speaking in full sentences. She localizes the pain to the left lower back, has no saddle anesthesia, no cva tenderness, no rashes or erythema or warmth, normal distal sensation and pulses, soft nontender abdomen, no leg swelling or calf tenderness. Her symptoms could be sciatica but given her history will proceed with ct to evaluate for bone mets and also kidney stones. No infectious symptoms to suggest spinal epidural abscess and no findings to suggest cauda equina. She declines having any pain medications now labs show no significant changes from baseline, ct shows sclerotic lesions in l4/5 and s1 likely mets, no fractures. She is stable, resting in bed in no distress. She feels well enough for d/c, will provide lidocaine patch, advised f/u with pcp and return precautions given Differential Diagnosis Differential Diagnosis: sciatica, bone lesions, kidney stone Medical Records Medical records reviewed: Yes I reviewed the patient's medical records. Imaging Data Radiologic Study: Attestation: I personally reviewed and interpreted this imaging study as follows: Imaging: CT Scan Radiologist's impression: IMPRESSION: No evidence of acute intra-abdominal process. New sclerotic lesions, highly suspicious for metastatic disease, of L4, L5, and S1 as described above.? No acute fracture. Lab Data Lab results reviewed: Yes I reviewed the patient's lab results. HPI General Mode of arrival: wheelchair . Date/Time Provider Initiated Documentation: 09/01/22 09:54 . Limitations to Documentation: no limitations . Information obtained by: patient . History of Present Illness 67 year old F presents to the emergency department with the chief complaint of lower back pain, described as moderate, Patient reports no radiation. Patient started experiencing this year(s) (3) and it has been constant. No relieving factors improve symptom(s), No exacerbating factors reported . Patient notes denies fever/chills, nausea/vomiting and shortness of breath. Patient did receive the following treatments prior to arrival, other (tylenol) Related Data Home Medications Medication Instructions Recorded Confirmed cholecalciferol (vitamin D3) 25 1,000 iu PO QAM #100 tab-caps 07/31/14 09/01/22 mcg (1,000 unit) capsule nystatin-triamcinolone 100,000 1 applic topical BID PRN PRN ##12 09/01/16 09/01/22 unit/g-0.1 % topical cream blood sugar diagnostic (OneTouch #400 strips 10/18/16 09/01/22 Ultra Test strips) prochlorperazine maleate 10 mg 10 mg PO Q6H PRN 03/19/21 09/01/22 tablet sennosides 8.6 mg tablet (senna) 17.2 mg PO BID 03/19/21 09/01/22 sodium phosphates 19 gram-7 118 ml MD ONCE PRN 03/20/21 09/01/22 gram/118 mL enema (Fleet Enema) insulin degludec 100 unit/mL (3 56 unit SQ QAM 05/19/21 09/01/22 mL) subcutaneous pen (Tresiba FlexTouch U-100 insulin) insulin lispro 100 unit/mL 0 - 6 unit subcut PRN PRN 05/19/21 09/01/22 subcutaneous pen (Humalog KwikPen (U-100) Insulin) docusate sodium 100 mg capsule 100 mg PO DAILY PRN 08/11/21 09/01/22 furosemide 20 mg tablet 20 mg PO DAILY PRN 08/11/21 09/01/22 losartan 100 mg tablet 100 mg PO DAILY 08/11/21 09/01/22 ondansetron HCl 8 mg tablet 8 mg PO Q8H PRN PRN 10/27/21 09/01/22 polyethylene glycol 3350 17 gram 17 g PO DAILY PRN PRN 10/27/21 09/01/22 oral powder packet apixaban 5 mg tablet (Eliquis) 5 mg PO BID #70 tabs 10/28/21 09/01/22 naloxone 4 mg/actuation nasal 1 spray intranasal Q2-3M PRN 11/22/21 09/01/22 spray (Narcan) opioid overdose #2 ea hydromorphone 2 mg tablet 2 mg PO Q6H PRN #8 tabs 01/16/22 09/01/22 metoprolol tartrate 25 mg tablet 25 mg PO BID 01/25/22 09/01/22 acetaminophen 325 mg tablet 325 mg PO PRN PRN 09/01/22 09/01/22 chlorthalidone 25 mg tablet 25 mg PO 09/01/22 diphenhydramine HCl 25 mg tablet 25 mg PO Q6H 09/01/22 09/01/22 hydrocortisone 2.5 % topical cream 1 applic topical BID 09/01/22 09/01/22 sucralfate 1 gram tablet 1 g PO QID 09/01/22 09/01/22 Previous Rx's Medication Instructions Recorded apixaban 5 mg tablet (Eliquis) 5 mg PO BID #70 tabs 10/28/21 naloxone 4 mg/actuation nasal 1 spray intranasal Q2-3M PRN 11/22/21 spray (Narcan) opioid overdose #2 ea hydromorphone 2 mg tablet 2 mg PO Q6H PRN #8 tabs 01/16/22 Allergies Allergy/AdvReac Type Severity Reaction Status Date / Time Sulfa (Sulfonamide Allergy Severe rash Verified 09/01/22 10:06 Antibiotics) adhesive Allergy Intermediate Skin Rash Verified 09/01/22 10:06 exenatide microspheres Allergy Unknown Verified 09/01/22 10:06 [From Bydureon] gabapentin Allergy Verified 09/01/22 10:06 lorazepam [From Ativan] Allergy Skin Rash Unverified 09/01/22 10:06 loratadine AdvReac Severe MADE HER Verified 09/01/22 10:06 FEEL HYPER celecoxib [From Celebrex] AdvReac Intermediate Pt states Verified 09/01/22 10:06 side effects unspecified gluten AdvReac Intermediate Diarrhea Verified 09/01/22 10:06 lactose AdvReac Intermediate Diarrhea Verified 09/01/22 10:06 atorvastatin AdvReac Unverified 09/01/22 10:06 hydrocodone AdvReac Other (See Unverified 09/01/22 10:06 Comment) simvastatin AdvReac Unverified 09/01/22 10:06 Clfxeor-INQ-TaF Reductase AdvReac Verified 09/01/22 10:06 Inhibitor [Fckrqdz-Wij-Fxm Reductase Inhibitor] Tegaderm Allergy Dermatitis Uncoded 09/01/22 10:06 General Stated Complaint: Nk/Back Pain NEHA: 3 Review of Systems All systems reviewed & are unremarkable except as noted in HPI and below Constitutional Constitutional: Denies chills, Denies fever(s) and Denies weakness Cardiovascular Cardiovascular: Denies chest pain and Denies dyspnea Respiratory Respiratory: Denies cough and Denies dyspnea Gastrointestinal Gastrointestinal: Denies nausea and Denies vomiting Integumentary/Breasts Skin/Breast: Denies rash Neurologic Neurologic: Denies weakness [facility] All Active Problems (Updated 09/01/22 @ 11:52 by Papa Mariano MD) Back pain (Acute) Left flank pain (Acute) Muscle pain (Chronic) Bone tumor (Acute) DVT (deep venous thrombosis) (Chronic) Mental health disorder (Chronic) Folate deficiency (Acute) Acute kidney injury superimposed on chronic kidney disease (Acute) Acute on chronic anemia (Acute) Hypertension (Chronic) Anxiety (Chronic) Constipation (Acute) Reflux esophagitis (Acute) Acute on chronic diastolic CHF (congestive heart failure), NYHA class 1 (Chronic) Chest pain (Acute) Pericardial effusion (Acute) Elevated troponin (Acute) Acute anemia (Acute) Thrombocytopenia (Acute) Bandemia (Acute) Diastolic heart failure (Acute) Peripheral neuropathy (Chronic) Superficial thrombophlebitis of right upper extremity (Acute) Urothelial carcinoma (Acute) Acute pulmonary edema (Acute) IDDM (insulin dependent diabetes mellitus) (Chronic) Discharge planning issues (Acute) DVT prophylaxis (Acute) Ureteral cancer (Acute) Acute CHF (Acute) Leukocytosis (Acute) Bilateral lower extremity edema (Acute) Pericardial effusion (Acute) UTI (urinary tract infection) (Acute) Kidney mass (Acute) Flank pain (Acute) Medical History (Updated 09/01/22 @ 11:52 by Papa Mariano MD) Depression Diabetes Gastritis and duodenitis GERD (gastroesophageal reflux disease) History of colon polyps Hyperlipidemia Obesity Osteoarthritis Palliative care encounter Surgical History Abdominal hysterectomy (~11/2010) for fibroid Bilateral salpingectomy with oophorectomy Biopsy of breast cyst excised-left section Colonoscopy - MAC (01/10/17) EGD - MAC (01/10/17) Extraction of cataract (11/10/16) LEFT EYE; DR. MORRIS Hemorrhoidectomy and anal fissure repair Hernia Repair, Incisional OOPHRECTOMY, UNILATERAL (~1991) , Ectopic (~1991) Family History Mother Personal history of malignant neoplasm UTERINE Father Personal history of malignant neoplasm COLON Brother Heart disease Brother No problems noted. Brother No problems noted. Grandfather Personal history of malignant neoplasm Grandfather No problems noted. Grandmother Personal history of malignant neoplasm Stroke Grandmother Diabetes Personal history of malignant neoplasm Social History Smoking/Tobacco Use Status: Current-Occasional Tobacco Type: e-cigarettes Smoking risk assessment performed?: Yes Alcohol Intake: never Drug use: Never Substance use type: does not use Details: vapor use Do you feel safe at home: Yes Do you feel safe in your relationship?: Yes Exam Const General: no acute distress Orientation: alert HENMT Head: normal to inspection Ears: external ears normal General nose exam: external nose normal Mouth: moist mucous membranes Eyes General: appearance normal, both eyes and all related structures Neck Neck: normal visual inspection Resp Effort & Inspection: normal respiratory effort and able to speak in complete sentences Cardio Rate: regular rate GI Palpation: soft and nontender Back/Spine/Pelvis Back: no CVA tenderness Skin General skin exam: no rashes or lesions noted Neuro General: patient alert and patient oriented x3 Extrem General: normal to inspection Psych Mental Status: mental status grossly normal Course Vital Signs Vital signs: Vital Signs Temperature 36.6 C 10/06/22 10:00 Pulse 81 09/01/22 10:00 Respiratory Rate 18 09/01/22 10:00 Blood Pressure 169/71 H 09/01/22 10:00 Pulse Oximetry 96 09/01/22 10:00 Temperature 36.6 C 09/01/22 10:00 Pulse 81 09/01/22 10:00 Respiratory Rate 18 09/01/22 10:00 Respiratory Effort Non-Labored 09/01/22 10:04 Blood Pressure 169/71 H 09/01/22 10:00 Blood Pressure Position Sitting 09/01/22 10:00 Pulse Oximetry 96 09/01/22 10:00 Oxygen Delivery Method Room Air 09/01/22 10:00 Oxygen Flow Rate 0 09/01/22 10:00 Pain Level 10 09/01/22 10:04
[2022-09-01 10:28] LABS: Source Nasal/Nares
[2022-09-01 10:28] LABS: BE (Venous) -4 mmol/L (-2-3); HCO3 (Venous) 23 mmol/L (23-28); O2 Sat (Venous) 49 %; TCO2 (Venous) 22 mmol/L (24-29); pCO2 (Venous) 54 mmHg (41-51); pH (Venous) 7.24 (7.31-7.41); pO2 (Venous) 28 mmHg
[2022-09-01 10:29] LABS: Abs Immature Grans 0.07 10^3/uL (0.0-0.06); Absolute Basophil Count 0.08 10^3/uL (0.0-0.2); Absolute Eosinophil Count 0.26 10^3/uL (0.0-0.7); Absolute Lymphocyte Count 1.92 10^3/uL (1.2-3.4); Basophils % 0.7; Eosinophils % 2.4; HCT 38.3 % (36.0-46.0); HGB 11.9 g/dL (11.2-15.7); Immature Grans % 0.6; Lymphocytes % 17.6; MCH 28.7 pg (27.0-33.0); MCHC 31.1 % (32.0-36.0); MCV 93 fL (80-95); Monocytes % 4.6; Neutrophils % 74.1; Platelet Count 321 10^3/uL (130-400); RBC 4.14 10^6/uL (3.93-5.22); RDW 15.1 % (11.7-14.6); RDW-SD 51.6 fL; WBC 10.89 10^3/uL (4.4-10.8)
[2022-09-01 10:30] LABS: Absolute Neutrophil Count 8.07 10^3/uL (1.2-6.7)
[2022-09-01 10:42] LABS: INR 0.9 (0.9-1.1); PTT Activated 24.7 sec (21.0-27.5); Prothrombin Time 9.4 sec (9.3-11.0)
[2022-09-01 11:00] LABS: COVID-19 PCR Negative (Negative)
[2022-09-01 11:03] LABS: ALT 30 U/L (14-59); AST 17 U/L (15-37); Albumin 3.5 g/dL (3.4-5.0); Alkaline Phosphatase 142 U/L (46-116); Anion Gap 10.2 mmol/L (3-11); BUN 44 mg/dL (7-18); Bilirubin, Total 0.3 mg/dL (0.2-1.0); CO2 23.8 mmol/L (21.0-32.0); CREATININE 1.8 mg/dL (0.55-1.02); Calcium 9.1 mg/dL (8.5-10.1); Chloride 101 mmol/L (98-107); Creatine Kinase 72 U/L (26-192); Estimated GFR 30.31 (mL/min/1.73m2); Glucose 95 mg/dL (74-106); Magnesium 2.3 mg/dL (1.8-2.4); Potassium 5.2 mmol/L (3.5-5.1); Sodium 135 mmol/L (136-145); TSH (W/Ref FT4) 2.29 uIU/mL (0.36-3.74); Total Protein 8.2 g/dL (6.4-8.2)
[2022-09-01 11:06] LABS: Bilirubin Negative (Negative); Blood Negative (Negative); Clarity Clear (Clear); Glucose Negative (Negative); Ketones Negative (Negative); Leukocyte Esterase Negative (Negative); Nitrite Negative (Negative); Specific Gravity 1.015 (1.005-1.025); Urobilinogen 0.2 EU/dL (Up TO 0.2)
[2022-09-01 11:12] LABS: Bacteria Rare HPF (Negative); C & S Indicated? No; Casts Negative LPF (Negative); Crystals Negative HPF (Negative); Epithelial Cells Rare HPF (Negative); Mucus Trace (Negative); Other Cells Negative (Negative); RBC Negative HPF (0-2); WBC 0-2 HPF (0-5)
[2022-09-01 11:55] VITALS: BP 145/63; PULSE 82; TEMP 36.4; O2SAT 97
[2022-09-01] MEDS: Lidocaine 5% Patch 1 PATCH TP (11:55)
== END 2022-09-01 12:08 | disposition home or self-care (01) ==
PROVIDERS: Emergency Provider Emergency Medicine; PCP Physician Assistant
DX: M54.50 Low back pain, unspecified (principal); R10.9 Unspecified abdominal pain; I10 Essential (primary) hypertension; E11.9 Type 2 diabetes mellitus without complications; F17.290 Nicotine dependence, other tobacco product, uncomplicated; Z79.4 Long term (current) use of insulin; Z20.822 Contact with and (suspected) exposure to COVID-19
CPT/HCPCS: 36415; 80053; 82550; 82805; 87635; 99282; 99284; 74176; 81003; 81015; 83735; 84443; 85025; 85610; 85730

== ENCOUNTER 2022-09-20 09:05 | Outpatient (CLI) | payer BC, MEDICARE, SELFPAY ==
[2022-09-20 10:50] LABS: Abs Immature Grans 0.04 10^3/uL (0.0-0.06); Absolute Basophil Count 0.06 10^3/uL (0.0-0.2); Absolute Eosinophil Count 0.21 10^3/uL (0.0-0.7); Absolute Lymphocyte Count 1.68 10^3/uL (1.2-3.4); Absolute Monocyte Count 0.56 10^3/uL (0.1-0.8); Absolute Neutrophil Count 7.14 10^3/uL (1.2-6.7); Basophils % 0.6; Eosinophils % 2.2; HCT 34.7 % (36.0-46.0); HGB 10.8 g/dL (11.2-15.7); Immature Grans % 0.4; Lymphocytes % 17.3; MCH 29.6 pg (27.0-33.0); MCHC 31.1 % (32.0-36.0); MCV 95 fL (80-95); Monocytes % 5.8; Neutrophils % 73.7; Platelet Count 293 10^3/uL (130-400); RBC 3.65 10^6/uL (3.93-5.22); RDW 14.4 % (11.7-14.6); WBC 9.69 10^3/uL (4.4-10.8)
[2022-09-20 11:24] LABS: ALT 21 U/L (14-59); AST 13 U/L (15-37); Albumin 3.3 g/dL (3.4-5.0); Alkaline Phosphatase 106 U/L (46-116); BUN 38 mg/dL (7-18); Bilirubin, Total 0.3 mg/dL (0.2-1.0); CREATININE 1.9 mg/dL (0.55-1.02); Calcium 8.8 mg/dL (8.5-10.1); Chloride 101 mmol/L (98-107); Estimated GFR 28.41 (mL/min/1.73m2); FREE T4 1.17 ng/dL (0.76-1.46); Glucose 119 mg/dL (74-106); Sodium 135 mmol/L (136-145); Total Protein 7.6 g/dL (6.4-8.2)
== END 2022-09-20 09:06 | disposition home or self-care (01) ==
LOC: LBO 09:06
PROVIDERS: PCP Physician Assistant; Visit Provider Internal Medicine
DX: Z79.899 Other long term (current) drug therapy (principal); C79.10 Secondary malignant neoplasm of unspecified urinary organs
CPT/HCPCS: 36415; 80053; 84439; 84443; 85025

== ENCOUNTER 2022-10-07 18:31 | Outpatient (REF) | payer BC, MEDICARE, SELFPAY ==
--- OUTSIDE RECORDS SUMMARY | 2022-10-07 18:36 | XMS_ITS | Encounter Summary ---
:1955 Author Organization [facility] [place] [address] Care Team Providers Name Role Phone Derek Torres Primary Care Provider Encounter Details Date Type Department Care Team Description 06/28/2022 Office Visit Hematology/Oncology Rah Bhatia MD [facility] [address] HEMATOLOGY/[place] [address] Metastatic urothelial carcinoma; at [facility] Aknita Pierre APRN [facility] [place] [address] High risk medication use; [address] Encounter for antineoplastic chemotherapy and immunotherapy; [place], [place] Bone metast ases [id number] Social History Tobacco Use Types Packs/Day Years Used Date Former Smoker Cigarettes 0.25 0 Quit: 06/2020 Smokeless Tobacco: Never Used Alcohol Use Standard Drinks/Week Comments Not Currently 0 (1 standard drink = 0.6 oz pure alcoho l) Sex Assigned at Date Recorded Not on file documented as of this encounter Last Filed Vital Signs Vital Sign Reading Time Taken Comments Blood Pressure 159/71 06/28/2022 10:10 AM EDT Pulse 75 06/28/2022 10:10 AM EDT Temperature - - Respiratory Rate 18 06/28/2022 10:10 AM EDT Oxygen Saturation 97% 06/28/2022 10:10 AM EDT Inhaled Oxygen Concentration - - Weight 98.6 kg (217 lb 6.4 oz) 06/28/2022 10:10 AM EDT Height 161.2 cm (5' 3.47) 06/28/2022 10:10 AM EDT Body Mass Index 37.95 06/28/2022 10:10 AM EDT documented in this encounter Progress Notes Alberto Bhatia MD - 06/28/2022 10:30 AM EDT Images from the original note were not included. Hematology & Medical Oncology [address] [address] Nancy returns today to continue treatment for metastatic bladder cancer. Patient Active Problem List Diagnosis Code ??? CIS - Depression ??? 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 ??? CIS - Hyperlipidemia ? ? CIS - Obesity->better weight control ??? CIS - Tobacco use ??? Type 2 diabetes mellitus, with long-term current use of insulin E11.9, Z79.4 ??? Urothelial carcinoma of kidney, right C64.1 ??? Malignant neoplasm of urinary bladder C67.9 ??? CKD (chronic kidney disease), 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 Depression F32.A ??? Diabetes mellitus due to underlying condition with stage 2 chronic kidney disease, with long-term current use of insulin E08.22, N18.2, Z79.4 ??? Albuminuria R80.9 ??? PTSD (post-traumatic stress disorder) F43.10 ??? Urinary incontinence R32 ??? Neutropenia, drug-induced D70.2 ??? Acute congestive heart failure I50.9 ??? Acute pulmonary edema J81.0 ??? Edema of both lower extremities R60.0 ??? Flank pain R10.9 ??? Leukocytosis D72.829 ??? Pericardial effusion I31.3 ??? Peripheral neuropathy G62.9 ??? Renal mass N28.89 ??? Superficial thrombophlebitis of right upper extremity I80.8 ??? Transitional cell carcinoma C68.9 ??? Urinary tract infection N39.0 ??? Encounter for deep vein thrombosis (DVT) prophylaxis Z29.9 ??? Renal cancer C64.9 ??? Metastatic urothelial carcinoma C79.10 ??? High risk medication use Z79.899 ??? Bone metastases C79.51 HPI:Nancy Pichardo is 67 y.o. F referred by Dr. Renner for a consultation on urothelial carcinoma of right upper tract. Presented in mid of November with gross hematuria in the right flank discomfort. CTscan revealed enhancement of lining for right renal pelvis with right-sided hydronephrosis and retrop eritoneal lymphadenopathy. She underwent cystouretheroscopy and attempted right ureteroscopy with stent placement by Dr. Renner on December 23. Her urine was positive for high-grade urothelial carcinoma. She underwent a biopsy of retroperitoneal lymph nodes on January 22 at [facility]. Pathology is pending. PET scan demonstrated increased FDG uptake at the sites of urothelial thickening in the right renal pelvis and enlarged avid right para-aortic lymph nodes. Nancy complains on low energy level, difficulties sleeping and right flank discomfort.Creatinine went up to 1.7 on December 30 from baseline creatinine of 0.5 in October 2019. Nancy was admitted on March 19 with CHF/pulmonary edema thrombophlebitis of right upper extremity. She was started on diuretics and anticoagulation with Lovenox and and antibiotics with ciprofloxacin. IInterval history (06/28/22) Nancy returns today to continue treatment for her metastatic urothelial cancer and discussion on restaging PET scan. She has more problems with mobility. Has difficulties toget up and walk. Feels that Padcev does take a toll on her neuropathy/mobility. She complains on lowback pain and hip pain intermittently. Pain is mild and controlled with Tylenol. . Appetite is good but either food has no taste or tastes weird. She still has fatigue and gets short of breath easily with exertion. . There bowel movements are regular she denies any fevers or chills. ROS is otherwise negative. PMH: No interval changes since last visit UTI was treated with antibiotics Completed antibiotics for UTI about a week ago. 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 Finalpathology- [id number] High grade UCC with negative margins UTI E. coli 100,000 colonies PTSD/depression, diabetes mellitus on insulin, arthritis, , hernia repair x3, anxiety, hysterectomy for urinary incontinence 2 to 3 years ago Social History: No interval changes since last visit [id number] smoking history, quit 6 months ago, does not drink alcohol, she has a daughter Family History: No interval changes since last visit Mother had spinal cancer at age of 43, aunt had breast cancer Allergies: Allergies Allergen Reactions ??? Gabapentin ??? Atorvastatin Calcium CIS - leg pain, CIS - leg pain, CIS - leg pain, CIS - leg pain, CIS - leg pain ??? Simvastatin CIS - leg pain, CIS - leg pain, CIS - leg pain, CIS - leg pain, CIS - leg pain ??? Ativan [Lorazepam] Rash ??? Hydrocodone Other (See Comments) Gi upset and constipation ??? Loratadine Palpitations hyper ??? Sulfa (Sulfonamide Antibiotics) ??? Tegaderm [Transparent Dressings] Dermatitis Tegaderm/stat-lock of IV dressing Medications: Your Medications Accurate as of June 28, 2022 10:54 AM. If you have any questions, ask your nurse or doctor. Continued medications with new dosing Dose Details metoproloL tartrate 25 mg Tab Commonly known as: Lopressor Take 0.5 tablets by mouth 2 times daily. What changed: how much to take 12.5 mg Refills: 0 Continued medications, unchanged Dose Details acetaminophen 325 mg Tab Commonly known as: Tylenol Take 3 tablets by mouth every 6 hours as needed for Pain. 975 mg Refills: 0 apixaban 5 mg Tab Commonly known as: Eliquis Take 5 mg by mouth 2 times daily. 5 mg Refills: 0 blood sugar diagnostic strips Strp 1 strip by NOT APPLICABLE route Three times a day. 1 strip Refills: 0 CERAVE AM TOP Apply topically. Refills: 0 chlorthalidone 25 mg Tab Commonly known as: Hygroten Take 25 mg by mouth every morning. 25 mg Refills: 0 cholecalciferol 1,000 unit Tab Commonly known as: Vitamin D3 Take 1,000 Units by mouth Daily. 1,000 Units Refills: 0 diphenhydrAMINE 25 mg Cap Commonly known as: Benadryl Take 25 mg by mouth every 6 hours as needed for Itching. 25 mg Refills: 0 furosemide 20 mg Tab Commonly known as: Lasix Take 20 mg by mouth 2 times daily. 20 mg Refills: 0 humaLOG KwikPen 100 unit/mL Inpn INJECT SUBCUTANEOUSLY PER SLIDING SCALE THREE TIMES A DAY BEFORE MEALS 101TO 150 2 UNITS 151 TO 200 4 UNITS 201 TO 250 6 UNITS 251 TO 3 Generic drug: insulin lispro Refills: 0 hydrocortisone 2.5 % Crea Apply topically 2 times daily. Refills: 0 HYDROmorphone 4 mg Tab Commonly known as: Dilaudid TAKE ONE TABLET BY MOUTH EVERY 6 HOURS (REPLACING HYDROCODONE) Refills: 0 Insulin Tresiba FlexTouch U-100 100 unit/mL (3 mL) Inpn Inject 60 Units subcutaneously daily. 60 units nightly. Generic drug: insulin degludec 60 Units Refills: 0 losartan 100 mg Tab Commonly known as: COZAAR Take 50 mg by mouth daily. 50 mg Refills: 0 Jeanne Pen Needle 32 gauge x 5/32 Ndle Generic drug: insulin needles (disposable) Refills: 0 nystatin 100,000 unit/gram Powd Commonly known as: MYCOSTATIN APPLY 1 GRAM TOPICALLY TWO TIMES A DAY NEEDED FOR 30 DAYS Refills: 0 nystatin-triamcinolone Crea Commonly known as: MYCOLOG II Apply topically 2 times daily. Apply topically Twice daily. Quantity: 60 g Refills: 3 ondansetron 8 mg Tab Commonly known as: Zofran Take 8 mg by mouth every 8 hours as needed for Nausea. 8 mg Refills: 0 polyethylene glycoL 17 gram Pwpk Commonly known as: Miralax Take 17 g by mouth daily as needed. 17 g Refills: 0 senna 8.6 mg Tab Commonly known as: Senokot Take 2 tablets by mouth 2 times daily. 2 tablet Quantity: 120 tablet Refills: 11 sucralfate 1 gram Tab Commonly known as: Carafate Take 1 tablet by mouth 4 times daily. 1 g Quantity: 120 tablet Refills: 3 Review of Systems Constitutional: Negative for chills and fever. Eyes: Negative for icterus. Respiratory: Negative for cough. Positive for SOB. Cardiovascular: Negative for chest pain. No edema. Genitourinary: Negative for difficulty urinating and hematuria. Negative for incontinence. UTI symptoms GI: Negative for nausea, vomiting, constipation or diarrhea. Musculoskeletal: hip pain but it is stable and chronic Hematological: Negative for adenopathy. Skin- Scattered rash OBJECTIVE: Physical Exam Constitutional: Appearance: Normal appearance. She is not toxic-appearing. In a wheelchair today. HENT: Head: Normocephalic. Mouth/Throat: Mouth: Mucous membranes are moist. Pharynx: Oropharynx is clear. No oropharyngeal exudate. Eyes: General: No scleral icterus. Conjunctiva/sclera: Conjunctivae normal. Cardiovascular: Rate and Rhythm: Normal rate and regular rhythm. Pulses: Normal pulses. Pulmonary: Effort: Pulmonary effort is normal. Lungs are clear. Port in place on right no evidence of infection. Abdominal: General: There is no distension. Musculoskeletal: Right lower leg: Trace edema Left lower leg: Trace edema. Lymphadenopathy: Cervical: No cervical adenopathy. Skin: General: Skin is warm. Positive for scattered erythematous macules on arms and upper torso. No openareas. Neurological: General: No focal deficit present. Mental Status: She is alert. Psychiatric: Mood and Affect: Mood normal. Thought Content: Thought content normal. Judgment: Judgment normal. BP 159/71 (Patient Position: Sitting) Pulse 75 Resp 18 Ht 161.2 cm (5' 3.47) Wt 98.6 kg (217 lb 6.4 oz) SpO2 97% BMI 37.95 kg/m?? Wt Readings from Last 3 Encounters: 06/28/22 98.6 kg (217 lb 6.4 oz) 06/14/22 99.3 kg (219 lb) 06/07/22 100.7 kg (222 lb) Pathology: 06/16/21 ADDENDUM DISCUSSION PAS and BMS stains were evaluated for Block A17, demonstrating nodular ??glomerulosclerosis. Electronically signed by: ?MD Thorne Jason R. Verified: ??06/24/2021 11:01 ??Pathologist Performed at: ??-[facility] Dept. of Pathology, [place], [place] ? Surgical Pathology DIAGNOSIS Right kidney and ureter with paracaval and intracaval lymph nodes, excision: ??- Urothelial carcinoma. ?? (See SYNOPTIC REPORT), invasive into ? perinephric fat and renal parenchyma. 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 Electronically signed by: ?MD Thorne Jason R. Verified: ??06/24/2021 10:58 ??Pathologist Performed at: ??-[facility]??Dept. of Pathology, [place], [place] SYNOPTIC Specimen ?Procedure: ??Nephroureterectomy ?Specimen Laterality: ??Right Tumor ?Tumor Site: ??Renal pelvis ?Histologic Type: ??Papillary urothelial carcinoma, invasive ?Histologic Grade: ??High-grade ?Tumor Size: ??Cannot be determined - Multifocal microscopic tumor ?Tumor Extension: ??Tumor invades beyond muscularis into periureteral fat or ? peripelvic fat or the renal parenchyma ?Lymphovascular Invasion: ??Present ?Tumor Configuration: ??Papillary; ??Solid / nodule Margins ?Margins: ??Uninvolved by invasive carcinoma and carcinoma in situ / ? noninvasive urothelial carcinoma Lymph Nodes ?Number of Lymph Nodes Involved: ??0 ?Number of Lymph Nodes Examined: ??At least 17 Pathologic Stage Classification (pTNM, AJCC 8th Edition) ?TNM Descriptors: ??y (post-treatment) ?Primary Tumor (pT): ??pT3 ?Regional Lymph Nodes (pN): ??pN0 Additional Findings ?Additional Findings: ??Therapy-related changes - Variable sclerotic change to ? lymph nodes and soft tissue; ??Tumor soft tissue deposits are seen adjacent ? to lymph nodes ?Pathologic Findings in Ipsilateral Nonneoplastic Renal Tissue: ??Glomerular ? disease (type) - Mesangial matrix expansion, focally nodular, consistent ? with diabetic nephropathic change in the appropriate clinical context Comments ?Substantial viable carcinoma is present in and around the renal pelvis, ? invading directly into renal parenchyma and into perinephric (renal sinus) ? fat. There is also tumor present within soft tissue in sections of lymph ? nodes. Whether or not this represents contiguous tumor from the main mass . SYNOPTIC ? versus soft tissue tumor deposits is unclear. No definite medial soft tissue ? margin involvement is identified; however, direct measurement of distance ? of clearance is not possible. Several lymph nodes show sclerotic scars ? consistent with treated tumor, but no definite viable lymph node metastases ? are identified. 01/22/21 retroperitoneal lymph node biopsy: A. LYMPH NODE, RETROPERITONEUM, CT-GUIDED CORE NEEDLE BIOPSY: - Positive for carcinoma, favor urinary bladder primary, high-grade. See comment. 12/25/2020 urine: High-grade urothelial carcinoma with superimposed abundant degenerative changes Labs: 06/28/2022 WBC 8.84, hemoglobin 12.1, platelet count 294, ANC 6.0, sodium 134, potassium 4.8, BUN 32, creatinine 1.5, calcium 8.9, AST 29, ALT 59, alkaline phosphatase 110, total protein 7.5, albumin 2.9, TSH 2.55, free T4 1.31. 06/14/2022 WBC 12.36, hemoglobin 11.8, platelet count 234, ANC 9.36, potassium 4.4, BUN 42, creatinine 1.7, calcium 9.4, TB 0.3, AST 26, ALT 38, alkaline phosphatase 117, total protein 7.5, albumin 2.9,TSH 3.07, free T4 1.22. 05/31/22 Na 138 K+ 4.2 BUN/Cr 39/1.5 Glu 118 Ca 8.4 TSH 3.18 Free T4 1.08 T prot 7.0 Alb 2.8 WBC 8.41 H/H 11.5/36.3 Plts 271 ANC 5.83 05/17/2022 sodium 135, potassium 4.3, BUN 39, creatinine 1.7, glucose 187, calcium 8.9, TB 0.3, AST 20, ALT 30, alkaline phosphatase 115, total protein 7.5, albumin 3.1 TSH and free T4 pending, WBC 9.92, hemoglobin 12.3, platelet count 234, ANC 7.27. 05/03/22 WBC 5.42 ANC 2.65 H/H 11.3/36.7 Plts 281 Na+ 138 K+ 4.3 BUN/Cr 30/1.4 Glu 158 Lfts normal T prot 7.0 Alb 2.8 TSH 2.86 T4 Free 1.25 04/19/22; wbc 7.8 H/H 11.6/36.9 Plts 220 ANC 5.65,Na 136 K+ 4.2 BUN/Cr 30/1.6 Glu 260 Ca 8.2, AST 20 ALT 34 Alk Phos 118 T.prot 7.2 Alb 3.0 Tsh 2.68 Free T4 1.24 04/12/2022 WBC 10.6, hemoglobin 12, platelet count 295, ANC 7.47, BUN 55, creatinine 1.6, calcium 9.0, TB 0.3, AST 17, ALT 30, alkaline phosphatase 120, total protein 7.5, albumin 3.2. 04/05/22- WBC-9.36 Hgb/Hct-11.4/37.2 Plt-283 ANC-6.72 Na-136 K+-4.7 BUN/Cr-40/1.4 Glucose-123 Ca-8.7 T. Bili-0.4 AST-13 ALT-31 Alk phos-120 Albumin-3.0 TSH-2.77 Free T4-1.20 03/22/22- WBC-8.37 Hgb/Hct-11.5/37.1 Plt-253 ANC-5.95 Na-134 K+-5.3 BUN/Cr-57/1.6 Glucose-180 Ca-8.4 T. Bili-0.3 AST-16 ALT-29 Alk phos-117 Albumin-2.9 TSH-2.49 Free T4-1.18 03/15/2022 sodium 134, potassium 5.4, BUN 57, creatinine 1.9, glucose 217, calcium 9.0, TB 0.3, AST 12, ALT 27, alkaline phosphatase 133, total protein 7.8, albumin 3.2, TSH 3.6, free T4 1.08. WBC 10.57, hemoglobin 11.9, platelet count 326, ANC 7.8. 01/25/2022 BUN 47, creatinine 1.6, sodium 133, potassium 6.1, AST 17, ALT 24, magnesium 2.4, WBC 10.2,hemoglobin 12.7, platelet count 295, ANC 7.7. 01/11/2022 WBC 8.69, hemoglobin 12, platelet count 248, ANC 6.09, sodium 136, potassium 5.1, BUN 33, creatinine 1.5, glucose 174, calcium 8.6, magnesium 2.4, TB 0.4, AST 26, ALT 39, alkaline [id number], albumin 3.3, TSH 2.62, free T4 1.4. 01/04/22- WBC-8.80 Hgb/Hct-11.7/37.7 Plt-294 ANC-5.94 Na-139 K+-4.7 BUN/cr-34/1.7 Glucose-153 Ca-8.5 Mg-1.9 T. Bili-0.3 AST-18 ALT-44 Alk phos-106 Albumin-3.2 TSH-2.30 Free T4-1.19 12/21/2021 sodium 135, potassium 5.2, BUN 30, creatinine 1.7, glucose 180, calcium 8.3, magnesium 1.9, TB 0.3, AST 41, ALT 26, alkaline phosphatase 93, total protein 6.9, albumin 2.9, WBC 9.31, hemoglobin 11.7, platelet count 261, ANC 6.76. 12/14/21- WBC-8.75 Hgb/Hct-11.3/37.5 Plt-251 ANC-6.11 Na-137 K+-5.4 BUN/cr-40/1.7 Glucose-307 Ca-8.5 Mg-1.9 T. Bili-0.3 AST-11 ALT-26 Alk phos-92 Albumin-3.0 TSH-2.61 Free T4-1.15 12/07/21- WBC-8.22 Hgb/Hct-10.9/36.0 Plt-254 ANC-5.87 Na-139 K+-5.1 BUN/Cr-39/1.8 Glucose-150 Ca-7.5 Mg-2.4 T. Bili-0.3 AST-15 ALT-23 Alk phos-97 Albumin-3.0 12/01/21- WBC-9.78 Hgb/Hct-11.2/36.4 Plt-270 ANC-7.11 Na-138 K+-5.2 BUN/cr-50/1.9 Glucose-115 Ca-8.8 Mg-2.0 T. Bili-0.3 AST-14 ALT-24 Alk phos-98 Albumin-3.2 11/23/21- WBC-11.56 Hgb/Hct-10.9/35.6 Plt-294 ANC-8.47 Na-139 K+-4.6 BUN/Cr-30/1.4 Glucose-109 Ca-7.8 Mg-2.8 T. Bili-0.2 AST-13 ALT-36 Alk phos-108 Albumin-3.1 Urine- Nitrate-+ Leukocyte Esterase-moderate C&S pending 10/19/2021 BUN 44, creatinine 1.5, calcium 8.7, magnesium 1.9, TB 0.2, AST 19, ALT 37, alkaline phosphatase 108, total protein 7.5, albumin 3.0 WBC 9.41, hemoglobin 10.8, platelet count 246 09/21/21 sodium 138, potassium 5.3, BUN 52, creatinine 1.6, calcium 8.6, glucose 175, magnesium 2.0,TB 0.3, AST 12, ALT 25, alkaline phosphatase 93, total protein 7.1, albumin 3.0, WBC 8.11, hemoglobin 10.6, platelet count 253, ANC 5.79. 08/24/21- WBC-8.46 Hgb/Hct 10.4/32.9 Plt-254 ANC-6.33 Na-141 K+-5.1 BUN/Cr-43/2.1 Glucose-205 Ca-8.8 Mg-2.0 T. Bili-0.3 AST-15 ALT-42 Alk phos-97 Albumin-3.0 07/27/21- TSH-2.12 Free T4-1.13 07/27/2021 sodium 139, potassium 5.2, BUN 64, creatinine 2.0, calcium 9.2, magnesium 2.3, TB 0.3, AST 11, AST 31, alkaline phosphatase 89, total protein 7.5, albumin 3.2, WBC 10.28, hemoglobin 9.3, platelet count 268, ANC 7.37. TSH and free T4 pending 07/06/2021 WBC 10.29, hemoglobin 8.9, platelet count 304, ANC 6.77, sodium 141, potassium 4.4, BUN 30, creatinine 1.7, calcium 8.7, magnesium 1.9, total bilirubin 0.2, AST 12, ALT 29, alkaline phosphatase 84, total protein 6.8, albumin 2.8. 04/05/2021 urine culture greater than 100,000 gram-negative rods ID and sensitivity to follow. Urinary hesitancy, leukocyte esterase large, protein 1+, blood moderate. Nitrites negative, RBC 10/, bacteria many, 03/22/2021 vitamin B12 more than 2000, sodium 139, potassium 4.4, BUN 34, creatinine 1.7, glucose 128, calcium 8.5, magnesium 2.0, TSH 4.03, free T4 1.13, WBC 34.7, hemoglobin 8.2, platelet count 178, blood cultures no growth 48 hours 03/19/2021 BNP 3768 02/09/21- WBC-12.17 Hgb/Hct-10.5/32.6 MCV-87.6 Plt-427 ANC-9.29 Na-138 K+-4.3 BUN/cr-41/1.7 Glucose-141 Ca-9.1 T. Bili-0.2 AST-11 ALT-18 Alk phos-117 Albumin-2.5 01/18/2021 BUN 42, creatinine 1.3, sodium 134, potassium 4.3, WBC 10.4, hemoglobin 12.2, platelet count 347, Imagin06/13/22 PET scan: IMPRESSION 1. No evidence of tumor recurrence and no definite active metastatic disease. 2. Small area of ill-defined FDG avidity in the anterior wall of the gallbladder, which in retrospect was present with a higher degree of FDG avidity on prior PET/CT. This is favored to represent resolving inflammation. Attention on follow-up is recommended 03/11/22. PET-CT scan: IMPRESSION Skeletal metastases are present in L4, L5 and S1. Sclerotic lesions have increased in size and FDG avidity. No evidence of recurrent tumor in the renal fossa. No hypermetabolic lymphadenopathy. Increase in the size of a pericardial effusion. ?? 10/15/21 PET scan: IMPRESSION 1. Interval nephrectomy. 2. Interval resolution of hypermetabolic lymphadenopathy. 3. New hypermetabolic sclerotic lesions and L5-S1 are concerning for skeletal metastases. ?? 07/23/2021 x-ray lumbar spine and hips/pelvis: Impression degenerative changes in lumbar spine and SI joints. Severe degenerative disease left hip moderate degenerative disease right hip 04/30/2021 PET scan: IMPRESSION 1. Anatomically decrease in size of known right upper tract urothelial carcinoma tumor, residual tumor difficult to evaluate secondary to normally excreted activity within the collecting system. 2. No suspected residual active champ metastases. 3. Interval small FDG avid left axillary and left lower neck/supraclavicular lymph nodes, favored likely reactive related to recent Covid vaccination. ?? 03/22/2021 echocardiogram normal LV segmental wall motion. The left ventricular diastolic function isnormal. LVEF is 55%, small circumferential pericardial effusion without evidence of tamponade. 03/22/2021 upper extremity venous ultrasound: Right arm cephalic vein abdominal positive for intraluminal thrombus from the level of wrist to the mid upper arm overall length of 13 cm. Thrombus does not extend into axillary or subclavian vein. Incidentally noted slight prominence of bowel clavicular lymph nodes on the right side. The largest lymph nodes in the right groin measured 1.7 x 1.4 x 1.4 cm. 03/21/2021 duplex venous ultrasound of lower extremities: Impression: No ultrasound evidence of DVT in either lower extremity. 03/19/2021 CT chest PE protocol: Impression: No evidence of acute pulmonary emboli. Extensive bilateral groundglass type infiltrate which may be cardiogenic but recommend testing for COVID-19. No intrathoracic adenopathy. No pleural effusion. There is a moderate sized pericardial effusion. 02/09/21-CT abdomen and pelvis- Impression- Heart: Mild increase in volume of pericardial effusion. 1. Moderate to severe right hydronephrosis despite the presence of a double-J right ureteral stent in good position. The fluid in theupper pole calyx is of high density and may represent blood products or mass. Associated right retroperitoneal lymphadenopathy worrisome for malignancy. 2. Nonobstructing left 6mm renal calculus. 01/06/2021 PET scan: Impression: FDG avid uptake corresponding to the nodularity the right renal pelvis consistent with known history of urothelial carcinoma. Right retroperitoneal lymph nodes remain enlarged and are FDG avid consistent with champ spread of malignancy. Asymmetric focus of increased FDG uptake in the left midbrain is 500 to be either physiologic or functional correlation with contrast-enhanced MRI of the head is suggested. Mildly increased uptake associated with soft tissue thickening along the umbilicus. Soft tissue nodularity in the left adrenal gland is unchanged and does not demonstrate increased FDG uptake. January 16 present benign adenoma or my elolipoma. Coronary and aortic atherosclerosis. 12/18/2020 CT urogram: Impression: Hydronephrosis to right collecting system. There is abnormal density noted in unenhancedscan. No enhancement of the collecting system and proximal ureter with somewhat irregular margins and extending just distal to the UPJ. There is decreased right nephrogram. The appearance suggest urothelial neoplasm with obstruction. There is para-aortic adenopathy. There is a small area of mild hypodensityin the lower pole posterior calyx of the left kidney which could be suggesting hemorrhage. There is no left hydronephrosis or enhancement urothelial tissue noted. 12/18/2020 abdominal ultrasound: No evidence of cholelithiasis. Hydronephrosis. Refer to report of concurrent urogram. Assessment and Plan: Diagnosis:Right upper tract urothelial carcinoma, metastatic Treatment: -12/23/20 right ureteral stent placement -02/10/21 started carboplatin AUC 5 and gemcitabine 1000 mg/m?? day 1 and 8 -06/16/21 right nephroureterectomy - 07/27/21- Adjuvant Nivolumab 480mg IV plan for total of 12 cycles -12/07/21- Enfortumab vedotin1.25mg/kg D 1,8,15 every 28 days Ms. Pichardo initially presented with a diagnosis of metastatic urothelial carcinoma of right kidney metastatic to retroperitoneal lymph nodes. She developed right-sided hydronephrosis and kidney failure with creatinine of 1.7. Her creatinine is improved after right ureteral stent placement. She was symptomatic with gross hematuria and vague right flank/side pain and discomfort and fatigue.She has comorbidities including diabetes mellitus on insulin and hypertension. Prognosis of metastatic urothelial carcinoma with median overall survival around a year and a half was discussed. She was referred to our urologist to discuss surgical option particularly right nephroureterectomy. She had good partial response/near complete response to chemotherapy with carboplatin and gemcitabine. Nephroureterectomy on June 16, 2021. Pathology revealed T3 high-grade urothelial carcinoma with 17 - lymph nodes and? Small tumor deposits around renal pelvis. She is at high risk of cancer recurrence. We discussed results of clinical phase 3 trial with adjuvant nivolumab presented in December 2020 on symposium. Nancy started Nivolumab on 07/27/21. She tolerated C1 well without any clinical toxicities. She has aminimal rash that is itching relieved with OTC hydrocortisone.Labs reviewed and are adequate for treatment today. Plan is to restage her in September with PET scan. 10/19/21 PET scan demonstrated L5 lesion suspicious for metastatic disease.Nancy tolerates nivolumab reasonably well with some fatigue and skin rash. We discussed options including biopsy of L5 lesion to confirm metastatic disease versus discontinuation of nivolumab and switching to third line of treatment such as Padcev or Trodelvy versus observation. She is interested in biopsy of L5 lesion. We would like to give it benefit of doubt and continue nivolumab for now. Will discuss third line of therapy if biopsy confirms metastatic disease. She is symptomatic with back pain which is out of proportion of L5 lesion. We will do MRI of lumbar and sacrum 01/04/22 Nancy returns today for C2of enfortumab. Labs and toxicities assessed. We will proceed with the treatment today. She understands elevated glucose can be a side effect of the therapy and importance of glucose control in continuing therapy. Plan to assess with PET scan or CT scan after completionof 3 cycles of Padcev. 01/11/22 Nancy does not feel well today with her back pain, fatigue, skin rash, constipation. She would like to take 2 weeks of medication from treatment. Nancy want to discontinue pretreatment dexamethasone and Aloxi as they affect your diabetes and constipation. I think we can try to hear without pain medication given there is no action plan that. She would like to discontinue Zometa as she believeshad a reaction to her. 01/25/22 Nancy feels very weak and in pain in her muscles and back. She is not interested to continue Padcev at least today next week. I will hold treatment and obtain restaging PET scan. Her potassium 6.1, high I will refer her to emergency room for evaluation and treatment of hyperkalemia. 03/15/22 PET scan demonstrates progression of bony disease with new lesion in L4 and enlarging lesionin L5/S1. We discussed options including restarting treatment with Padcev versus reduce dose of medication versus switching to a different medication such as Trodelvy versus just palliative treatment. She is interested to restart Padcev. 04/12/22 Nancy returns today to continue palliative treatment with Padcev. She is feeling well today. No pain. Labs were reviewed. Okay for treatment. Proceed with day 8 of cycle 3 today 05/31/22 She will continue with palliative treatment with Padcev. She continues to feel well. No new pain. Labs are acceptable for treatment. We will continue to monitor her Glu. It is better today. She is on an increased dose of insulin. We will plan to do a restaging PET scan in 2 weeks. She will return in 1weeks for her next treatment. She is comfortable with this plan. 06/13/22 Nancy completing 5 cycle of Padcev today. PET scan is done yesterday and personally reviewed. Official report is pending. Will finish cycle 5 today. If she has progression we will switch her toTrodelvy, otherwise we will continue treatment with Padcev 06/28/22 PET scan demonstrates no active disease. She has sclerotic lesion anterior lumbar and sacral spine but they do not show any activity on PET scan. She does complain on more difficulties with mobility and significant fatigue. She would like to takea break from treatment with Padcev. I think it would be okay to give her 2-3 months break to see if staying off targeted therapy helps with her mobility and neuropathy. She still wants to be treated today. # CHF: Increased pericardial effusion. Patient follows with fisher crab follows with Dr. Ebony Beckham,had stress test on April 01, 2021 technically suboptimal, but no definite myocardial ischemia or evidence of prior infarction. EF 63% #Elevated creatinine/hyperkalemia:? Effect of antihypertensive therapy particularly losartan. Potassium remains normal. #Anemia: Hemoglobin 11.5. Asymptomatic Remains relatively stable. Multifactoral. It is slowly improving post surgery. Kidney insufficiency could contribute to anemia as well. It does contribute to her fatigue. Will monitor. # Hypertension-on losartan Losartan decreased to 50 mg day and she is now taking Chlorthalidone 25 mg daily. BP has stabilized. #Bone sparing agent: She received zometa last week and did not have any issues. . Zometa 3 mg dose adjusted to kidney function every 4 weeks. Continue calcium and vitamin D. Continue calcium citrate 500mg three times a day with meals. Continue Vitamin D supplement. #UTI- resolved # Rash- scattered. Continue steroid cream and/or benadryl as prescribed. PLAN: 1. Enfortumab D1C6 today 2. . Continue calcium/vitamin D supplements. 3. Follow up visit in 6 weeks with CBC,CMP, and Zometa Nancy voiced understanding of the plan and was given an opportunity to ask questions which I answered to the best of my ability. Nancy understands she can call the clinic between visits with any questions/concerns or new symptoms. documented in this encounter Plan of Treatment Upcoming Encounters Date Type Specialty Care Team Description 10/21/2022 Appointment Hematology and Oncology 10/21/2022 Hospital Encounter Radiology Adilene Link[address] [place] [address] (Kwadwo morataya) 10/21/2022 Appointment Radiology Adilene Link[address] [place] [address] (Kwadwo morataya) 10/21/2022 Appointment Radiology Adilene Link[address] MEDICAL ONCOLOGY [place], [place] [id number] (Kwadwo morataya) 10/25/2022 Office Visit Hematology and Oncology Alberto Guy MD [facility] DR HEMATOLOGY/[place] [address] [address] [place] [address] 11/09/2022 Office Visit Urology Bobo Davis MD [facility] UROLOGY [place], [place] [address] (Wo rk) documented as of this encounter Visit Diagnoses Diagnosis Metastatic urothelial carcinoma 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 High risk medication use Encounter for long-term (current) use of other medications Encounter for antineoplastic chemotherap y and immunotherapy Bone metastases Secondary malignant neoplasm of bone and bone marrow documented in this encounter Care Teams Pit Supervisor Relationship Specialty Start Date End Date Derek Torres PA PCP - General Internal Medicine 06/07/21 [address] [place] [address] documented as of this encounter
--- OUTSIDE RECORDS SUMMARY | 2022-10-07 18:36 | XMS_ITS | Encounter Summary ---
:1955 [place] [address] Care Team Providers Name Role Phone Derek Torres Primary Care Provider Encounter Details Date Type Department Care Team Description 09/05/2022 Refill Hematology/Oncology at Jannette Alberto, Metastatic urothelial [facility] carcinoma [address] [place] [phone] HEMATOLOGY/ONCOLOGY [phone] [place], [place] [address] (Wo rk) Social History Tobacco Use Types Packs/Day Years Used Date Former Smoker Cigarettes 0.25 0 Quit: 06/2020 Smokeless Tobacco: Never Used Alcohol Use Standard Drinks/Week Comments Not Currently 0 (1 standard drink = 0.6 oz pure alcoho l) Sex Assigned at Date Recorded Not on file documented as of this encounter Plan of Treatment Upcoming Encounters Date Type Specialty Care Team Description 10/21/2022 Appointment Hematology and Oncology 10/21/2022 Hospital Encounter Radiology Adilene Link [address] [place] [address] (Wo rk) 10/21/2022 Appointment Radiology Adilene Link [address] MEDICAL ONCOLOGY [place], [place] [phone] (Kwadwo rk) 10/21/2022 Appointment Radiology Adilene Link [address] [place] [address] (Wo rk) 10/25/2022 Office Visit Hematology and Oncology Alberto Guy MD [facility] HEMATOLOGY/[place] [address] [address] MEDICAL ONCOLOGY [place], [place] [address] 11/09/2022 Office Visit Urology Bobo Davis MD [facility] UROLOGY [place], [place] [address] (Wo rk) documented as of this encounter Visit Diagnoses Diagnosis Metastatic urothelial carcinoma 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 documented in this encounter Care Teams Snowblower Mechanic Relationship Specialty Start Date End Date Derek Torres PA PCP - General Internal Medicine 06/07/21 [address] [place] [address] documented as of this encounter
--- OUTSIDE RECORDS SUMMARY | 2022-10-07 18:36 | XMS_ITS | Clinical Summary ---
:1955 Author Organization [facility] [place] [address] Care Team Providers Name Role Phone Derek Torres Primary Care Provider Allergies Active Allergy Reactions Severity Noted Date Comments Lorazepam Rash 03/15/2022 Atorvastatin Calcium Medium CIS - l eg pain, CIS - leg pain, CIS - leg pain, CIS - leg pain, CIS - leg pain Gabapentin High 08/24/2021 Loratadine Palpitations 11/12/2014 hyper Simvastatin Medium CIS - leg pain, CIS - leg pain, CIS - leg pain, CIS - leg pain, CIS - leg pain Sulfa (Sulfonamide Antibiotics) Transparent Dressings Dermatitis 06/22/2021 Tegade rm/stat-lock of IV dressing Tramadol Anxiety 09/05/2022 Medications Medication Sig Dispensed Refills Start Date End Date Status insulin degludec Inject 42 Units 0 Active (Insulin Tresiba subcutaneously FlexTouch U-100) 100 daily. unit/mL (3 mL) Insulin Pen blood sugar 1 strip by NOT 0 Act amrita diagnostic strips APPLICABLE route Strip Three times a day. cholecalciferol, Take 1,000 Units by 0 Active Vitamin D3, (Vitamin mouth Daily. D3) 1,000 unit Tablet nystatin APPLY 1 GRAM 0 02/18/2021 Active (MYCOSTATIN) Powder TOPICALLY TWO TIMES A DAY NEEDED FOR 30 DAYS Jeanne Pen Needle 32 0 02/18/2021 Active gauge x 5/32 Needle humaLOG KwikPen 100 INJECT 0 04/03/2021 Active unit/mL Insulin Pen SUBCUTANEOUSLY PER SLIDING SCALE THREE TIMES A DAY BEFORE MEALS 101TO 150 2 UNITS 151 TO 200 4 UNITS 201 TO 250 6 UNITS 251 TO 3 acetaminophen Take 3 tablets by 0 06/23/2021 Active (Tylenol) 325 mg mouth every 6 hours Tablet as needed for Pain. metoprolol tartrate Take 0.5 tablets by 0 06/23/2021 Active (Lopressor) 25 mg mouth 2 times daily. Tablet Additional Information Patient taking differently: 25 mg Oral 2 TIMES DAILY, Reported on 05/17/2022 polyethylene glycoL (Miralax) Take 17 g by mouth 0 0 06/23/2021 Active 17 gram Powder in Packet daily as needed. losartan (COZAAR) 100 mg Take 25 mg by mouth 0 08/23 Active Tablet daily. apixaban (Eliquis) 5 mg Take 5 mg by mouth 2 0 Active Tablet times daily. senna (Senokot) 8.6 mg Take 2 tablets by 120 tablet 11 12/07/19 22 Active TabletIndications: Metastatic mouth 2 times daily. urothelial carcinoma nystatin-triamcinolone Apply topically 2 60 g 3 2 Active (MYCOLOG II) times daily. Apply CreamIndications: Metastatic topically Twice daily. urothelial carcinoma, Drug-induced skin rash ondansetron (Zofran) 8 mg Take 8 mg by mouth 0 Active Tablet every 8 hours as needed for Nausea. hydrocortisone 2.5 % Cream Apply topically 2 0 Active times daily. homos/merad/octinox/octoc/zin Apply topically. 0 Active c (CERAVE AM TOP) sucralfate (Carafate) 1 gram Take 1 tablet by mouth 120 tablet 3 03/30/2022 Active TabletIndications: Metastatic 4 times daily. urothelial carcinoma, High risk medication use diphenhydrAMINE (Benadryl) 25 Take 25 mg by mouth 0 Active mg Capsule every 6 hours as needed for Itching. chlorthalidone (Hygroten) 25 Take 25 mg by mouth 0 0 04/16/2022 Active mg Tablet every morning. HYDROcodone-acetaminophen Take 1 tablet by mouth 20 tablet 0 1 Active (Watkins) 5-325 mg every 6 hours as TabletIndications: Metastatic needed for Pain. urothelial carcinoma amLODIPine (Norvasc) 5 mg Daily. 0 Active Tablet Active Problems Problem Noted Date Bone metastases 10/19/2021 Metastatic urothelial carcinoma 07/06/2021 High risk medication use 07/06/2021 Renal cancer 05/17/2021 Acute congestive heart failure 04/28/2021 Acute pulmonary edema 04/28/2021 Edema of both lower extremities 04/28/2021 Flank pain 04/28/2021 Leukocytosis 04/28/2021 Pericardial effusion 04/28/2021 Peripheral neuropathy 04/28/2021 Renal mass 04/28/2021 Superficial thrombophlebitis of right upper extremity 04/28/2021 Transitional cell carcinoma 04/28/2021 Urinary tract infection 04/28/2021 Encounter for deep vein thrombosis (DVT) prophylaxis 0 04/28/2021 Neutropenia, drug-induced 03/02/2021 Urothelial carcinoma of kidney, right 02/03/2021 Malignant neoplasm of urinary bladder 02/03/2021 CKD (chronic kidney disease), stage II 11/05/2019 Depression 11/05/2019 Diabetes mellitus due to underlying condition with sta ge 2 chronic kidney 11/05/2019 disease, with long-term current use of insulin Albuminuria 11/05/2019 PTSD (post-traumatic stress disorder) 11/05/2019 Urinary incontinence 11/05/2019 Type 2 diabetes mellitus, with long-term current use o f insulin 11/27/2000 Overview: Recent lab (12/10/10): A1c 9.2% (in 2000, her A1c was 7.8% at diagnosis) -recent admission at [facility] ICU on 10/26/10 for DKA (pH<7, HCO3 <5, BG 495, moderate acetone, high lipase 399, pOsm 339) CIS - Hyperlipidemia 11/27/1991 Overview: recent lab 12/10/10: TC 188, LDL 117, HDL 57, TG 154 CIS - Tobacco use 11/27/1979 CIS - Depression 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 CIS - Obesity->better weight control Encounters Date Type Specialty Care Team Description 09/20/2022 Infusion Hematology and Metastatic Oncology urothelial carc inoma 09/20/2022 Office Visit Hematology barney Bhatia, Metastatic ur othelial carcinoma; Oncology MD Alberto Bone metastases; Adilene Link, Radiculopat hy, unspecified spinal region SYSTEMS TEST TECHNICIAN 09/20/2022 Travel 09/06/2022 Refill Hematology barney Bhatia, Metastatic Oncology MD Alberto urothelial carc inoma 09/05/2022 Refill Hematology and Jannette, Metastatic Oncology MD Alberto urothelial carc in[place] 09/05/2022 Telephone Hematology and Barb Dennis, Back Pain lime puller 09/01/2022 Telephone Hematology and Martita, Oncology Hattie Monreal RN 08/26/2022 Ancillary Procedure Radiology Derek Torres PA 08/09/2022 Infusion Hematology and Metastatic Oncology urothelial carc inoma 08/09/2022 Office Visit Hematology and Jannette, Bone metastas es; Oncology MD Alberto Metastatic urothelial carcinoma; Adilene Link, Urothelial carcinoma of kidney, right SYSTEMS TEST TECHNICIAN from Last 3 Months Immunizations Name Administration Dates Next Due Influenza Vaccine, Whole 09/25/2010, 10/26/2006, 10/18/2005 Pneumococcal Polyvalent 23 10/16/2007 Social History Tobacco Use Types Packs/Day Years Used Date Former Smoker Cigarettes 0.25 0 Quit: 06/2020 Smokeless Tobacco: Never Used Alcohol Use Standard Drinks/Week Comments Not Currently 0 (1 standard drink = 0.6 oz pure alcoho l) Sex Assigned at Date Recorded Not on file Last Filed Vital Signs Vital Sign Reading Time Taken Comments Blood Pressure 192/65 09/20/2022 10:55 AM EDT Pulse 68 09/20/2022 10:55 AM EDT Temperature 36.3 ??C (97.3 ??F) 09/20/2022 10:55 AM EDT Respiratory Rate 16 09/20/2022 10:55 AM EDT Oxygen Saturation 99% 09/20/2022 10:55 AM EDT Inhaled Oxygen Concentration - - Weight 101.2 kg (223 lb 3.2 oz) 09/20/2022 10:55 AM EDT Height 161.2 cm (5' 3.47) 09/20/2022 10:55 AM EDT Body Mass Index 38.96 09/20/2022 10:55 AM EDT Plan of Treatment Upcoming Encounters Date Type Specialty Care Team Description 10/21/2022 Appointment Hematology and Oncology 10/21/2022 Hospital Encounter Radiology Adilene Link, SYSTEMS TEST TECHNICIAN [address] [place] [address] [place] [address] (Wo rk) 10/21/2022 Appointment Radiology Adilene Link[address] MEDICAL ONCOLOGY [place], [place] [phone] (Wo rk) 10/21/2022 Appointment Radiology Adilene Link[address] MEDICAL ONCOLOGY [place], [place] [phone] (Wo rk) 10/25/2022 Office Visit Hematology and Oncology Alberto Guy MD [facility] DR HEMATOLOGY/[place] [address] MEDICAL ONCOLOGY [place], [place] [phone] 11/09/2022 Office Visit Urology Bobo Davis MD [facility] DR UROLOGY [place], [place] [address] (Wo rk) Health Maintenance Due Date Last Done Comments Covid-19 Vaccine (#1) 1955 DM Opthalmology Exam 1964 DM Urine Microalbumin yearly 1964 Hepatitis C Screening 1972 Lipid Screening 1972 Tdap adult 1973 Tetanus vaccine 1973 Zoster vaccine (1 of 2) 1973 Breast Cancer Share Decision 1994 Needed Colonoscopy 1999 Breast Cancer screening 2004 Pneumoccocal Vaccine: 65+ (2 - 10/16/2008 10/16/2007 PCV) Advance Directive 2009 Bone Density Scan 2019 DM Hemoglobin A1c 6 month 12/18/2021 06/17/2021 DM Creatinine yearly 06/24/2022 06/24/2021, 06/23/2021, 06/22/2021, Additional history exists Influenza (Flu) vaccine (1 of 1 - 07/28/2022 09/25/2010, , Influenza standard series) 10/18/2005 Medical Devices Implanted Type Area Jr. Java Developer Device Shelf Model / Identifier Expiration Serial / Date Lot Mediport-04/27/2022 Mediport Right: Vas-Cath 06/26/2023 [id number] / Implanted: Qty: 1 on 04/27/2022 by Bobo Jacome MD [facility] / [id number] Procedures Procedure Name Priority Date/Time Associated Comments Diagnosis LAB SCAN 09/20/2022 12:00 AM Results for this EDT procedure are i n the results section. CT SCAN (SCAN) 09/05/2022 12:00 AM Result s for this EDT procedure are i n the results section. CT SCAN (SCAN) 09/05/2022 12:00 AM Result s for this EDT procedure are i n the results section. FILM LIBRARY STORAGE Routine 08/26/2022 4:14 PM R esults for this ONLY ULTRASOUND EDT procedure ar e in STUDY the results section. ULTRASOUND SCAN 08/26/2022 12:00 AM Resul ts for this (SCAN) EDT procedure are i n the results section. ULTRASOUND SCAN 08/26/2022 12:00 AM Resul ts for this (SCAN) EDT procedure are i n the results section. LAB SCAN 08/09/2022 12:00 AM Results for this EDT procedure are i n the results section. from Last 3 Months Results SCAN DOC: LAB (09/20/2022 12:00 AM EDT)Only the most recent of2 resultswithin the time period is included. Narrative 09/20/2022 12:00 AM EDT This result has an attachment that is no t available. Ordered by an unspecified provider. Scanning Provider MEDIA MGR SCAN EXT ORDR/RSLT SCAN DOC: CT SCAN (09/05/2022 12:00 AM EDT)Only the most recent of2 results within the time period is included. Narrative 09/05/2022 12:00 AM EDT This result has an attachment that is no t available. Ordered by an unspecified provider. Scanning Provider MEDIA MGR SCAN EXT ORDR/RSLT Film Library- Storage Only Ultrasound Study (08/26/2022 4:14 PM EDT) Specimen (Source) Anatomical Location Collection Method / Collectio n Time Received Time / Laterality Volume Narrative DH RAD - 08/26/2022 4:14 PM EDT This exam is auto-finalizing. It's purpo se is for storage only. Derek ESTRELLA IMG FILM LIBRARY ORDERABLES Performing Organization Address City/State/ZIP Code Phon e Number RAD BESSIE [place], [place] SCAN DOC: ULTRASOUND (08/26/2022 12:00 AM EDT)Only the most recent of2 results within the time period is included. Narrative 08/26/2022 12:00 AM EDT This result has an attachment that is no t available. Ordered by an unspecified provider. Scanning Provider MEDIA MGR SCAN EXT ORDR/RSLT from Last 3 Months Insurance Payer Benefit Plan / Subscriber ID Effective Dates Phone Addre ss Type Group [employer] NATIONAL [id number] 2021-Presen [phone] [address] BLUE [employer] [place] PPO [address] [facility] [place] [address] MEDICARE MEDICARE PART [id number] 2019-Prese [phone] [place] [id number] MEDICARE BH MEDICARE [id number] 2021-Presen [phone] [place] [address] [address] (Home) [place] [phone] Advance Directives Latest Code Status on File Code Status Date Activated Date Inactivated Comments Attempt Cardiopulmonary Resuscitation - 04/27/2022 9:02 AM 4:33 AM Inpatient Code Status decision made by: Patient Attempt Cardiopulmonary Resuscitation - 11/09/2021 12:33 PM 10/27 4:34 AM Inpatient Code Status decision made by: Patient Attempt Cardiopulmonary Resuscitation - 06/16/2021 11:23 PM 2020 3:44 PM Inpatient Code Status decision made by: Patient Attempt Cardiopulmonary Resuscitation - 06/16/2021 11:40 AM 2020 11:23 PM Inpatient Code Status decision made by: Patient Care Teams Caterpillar Tractor Operator Relationship Specialty Start Date End Date Derek Torres PA PCP - General Internal Medicine 06/07/21 [address] [place] [address]
--- OUTSIDE RECORDS SUMMARY | 2022-10-07 18:36 | XMS_ITS | Encounter Summary ---
:1955 Author Organization [facility] [place] [address] Care Team Providers Name Role Phone Derek Torres Primary Care Provider Encounter Details Date Type Department Care Team Description 06/28/2022 Notes Only Hematology/Oncology at Julia Morris MSW [facility] OFFICE OF CARE [address] [place] [phone] Social History Tobacco Use Types Packs/Day Years Used Date Former Smoker Cigarettes 0.25 0 Quit: 06/2020 Smokeless Tobacco: Never Used Alcohol Use Standard Drinks/Week Comments Not Currently 0 (1 standard drink = 0.6 oz pure alcoho l) Sex Assigned at Date Recorded Not on file documented as of this encounter Progress Notes Julia Morris MSW - 06/28/2022 12:13 PM EDT Follow up with pt during her infusion visit today. Pt indicated she was doing the best she can day to day at home with the assistance of her and the home care services she receives. She continues to advocate for her needs something she said she has done her entire life. Pt did not identify any new needs today. Offered support. Reminded pt of FISHING BOAT MATE availability and contact information. Will continue to follow for support and resources. Brief assessment Supportive Counseling documented in this encounter Plan of Treatment Upcoming Encounters Date Type Specialty Care Team Description 10/21/2022 Appointment Hematology and Oncology 10/21/2022 Hospital Encounter Radiology Adilene Link[address] MEDICAL ONCOLOGY [place], [place] [address] [phone] (Wo rk) 10/21/2022 Appointment Radiology Adilene Link[address] ONCOLOGY [place], [place] [address] [phone] (Wo rk) 10/21/2022 Appointment Radiology Adilene Link[address] [place] [address] (Wo rk) 10/25/2022 Office Visit Hematology and Oncology Alberto Guy MD [facility] DR HEMATOLOGY/[place] [address] [address] MEDICAL ONCOLOGY [place], [place] [address] 11/09/2022 Office Visit Urology Bobo Davis MD [facility] DR UROLOGY [place], [place] [address] (Wo rk) documented as of this encounter Visit Diagnoses Not on filedocumented in this encounter Care Teams Refinery Operator Helper Cracking Unit Relationship Specialty Start Date End Date Derek Torres PA PCP - General Internal Medicine 06/07/21 [address] [place], [place] [address] documented as of this encounter
--- OUTSIDE RECORDS SUMMARY | 2022-10-07 18:36 | XMS_ITS | Encounter Summary ---
:1955 Author Organization [facility] [place] [address] Care Team Providers Name Role Phone Derek Torres Primary Care Provider Encounter Details Date Type Department Care Team Description 09/01/2022 [facility] [place] [facility] [address] [place], [place] [phone] Social History Tobacco Use Types Packs/Day Years Used Date Former Smoker Cigarettes 0.25 0 Quit: 06/2020 Smokeless Tobacco: Never Used Alcohol Use Standard Drinks/Week Comments Not Currently 0 (1 standard drink = 0.6 oz pure alcoho l) Sex Assigned at Date Recorded Not on file documented as of this encounter Miscellaneous Notes Telephone Encounter - Hattie Anders RN - 09/01/2022 9:10 AM EDT Received phone call from patient who called in tearful/distraught. She reports that she is having terrible pain in her lower back, buttocks and legs. Reports that the pain is greater in left leg than right. States something is going on, my legs don't feel right. States that they feel numb, tingly and cramping feeling. She has been trying to manage pain for the past couple of days with Tylenol and added in Dilaudid 2mg yesterday, taking it yesterday afternoon and again last night with some relief but still having significant pain. Patient is tearful on the phone and distraught. States I just want to know what I should do. ShouldI just go to the ER? Advised that patient should go to ER for evaluation of pain and symptoms she is experiencing in her legs. She agrees with this plan and will go to [facility] ED. RN call to [facility] ED, spoke with MORTEZA Daley with report. Faxed demographics, med/allergy list and last MD note. Dr. Bhatia notified. documented in this encounter Plan of Treatment Upcoming Encounters Date Type Specialty Care Team Description 10/21/2022 Appointment Hematology and Oncology 10/21/2022 Hospital Encounter Radiology Adilene Link[address] [place] [address] (Wo rk) 10/21/2022 Appointment Radiology Adilene Link [address] [place] [address] (Wo rk) 10/21/2022 Appointment Radiology Adilene Link [address] [place] [address] (Wo rk) 10/25/2022 Office Visit Hematology and Oncology Alberto Guy MD [facility] DR HEMATOLOGY/[place] [address] [address] Link [address] [place] [address] 11/09/2022 Office Visit Urology Bobo Davis MD [facility] UROLOGY [place], [place] [address] (Wo rk) documented as of this encounter Visit Diagnoses Not on filedocumented in this encounter Care Teams Mash Filter Operator Relationship Specialty Start Date End Date Derek Torres PA PCP - General Internal Medicine 06/07/21 Mahnaz CARLSON [address] [place] [address] [phone] documented as of this encounter
--- OUTSIDE RECORDS SUMMARY | 2022-10-07 18:36 | XMS_ITS | Encounter Summary ---
:1955 Author Organization [facility] [place] [address] Care Team Providers Name Role Phone Derek Torres Primary Care Provider Reason for Visit Reason Onset Date Comments Back Pain 09/05/2022 Encounter Details Date Type Department Care Team Description 09/05/2022 Telephone Hematology/Oncology at Barb Harris RN Back Pain [address] [phone] Social History Tobacco Use Types Packs/Day Years Used Date Former Smoker Cigarettes 0.25 0 Quit: 06/2020 Smokeless Tobacco: Never Used Alcohol Use Standard Drinks/Week Comments Not Currently 0 (1 standard drink = 0.6 oz pure alcoho l) Sex Assigned at Date Recorded Not on file documented as of this encounter Miscellaneous Notes Addendum Note - Barb Harris RN - 09/05/2022 5:13 PM EDT Addended by: BARB HARRIS on: 09/05/2022 05:13 PM Modules accepted: Orders Telephone Encounter - Barb Harris RN - 09/05/2022 3:50 PM EDT Pt called stating she is having pain down left side of back into left leg. She rates it 9 out of 10.She went to [facility] on 09/01/22. They scanned her and gave her script for lidocaine patch which she sayshelps slightly. She does not want to take opiods as they make her too groggy. She is taking tylenol 1000 mg at 6 am 12 noon and 6 pm with some relief for about 4 hours. She wants something else for pain.Pt cannot get in to see PCP until Monday. Message sent to Dr. Bhatia . Dr. Bhatia would like pt to try tramadol 50 mg every 12 hours as needed. Nancy willing to try this. Script sent in. Pt called back and stated she gets anxiety with tramadol, she has used hydrocodone in past. Dr. bhatia notified, awaiting what he would like to do.Allergy list updated. Dr. Bhatia agreed to hydrocodone 20 tabs, pt does get constipation when on it, told her to be proactive with bowel meds to keep everything moving. Called [facility] in [place] and d/cd tramadol. Pt agrees with plan.Pt seeing PCP this Monday can continue pain meds with PCP if needed. documented in this encounter Plan of Treatment Upcoming Encounters Date Type Specialty Care Team Description 10/21/2022 Appointment Hematology and Oncology 10/21/2022 Hospital Encounter Radiology Adilene Link[address] MEDICAL ONCOLOGY [place], [place] [phone] (Wo rk) 10/21/2022 Appointment Radiology Adilene Link[address] [place] [address] (Wo rk) 10/21/2022 Appointment Radiology Adilene Link[address] [place] [address] (Wo rk) 10/25/2022 Office Visit Hematology and Oncology Alberto Guy MD [facility] DR HEMATOLOGY/[place] [address] [address] MEDICAL ONCOLOGY [place], [place] [phone] 11/09/2022 Office Visit Urology Bobo Davis MD [facility] [place], [place] [address] (Wo rk) documented as of this encounter Visit Diagnoses Not on filedocumented in this encounter Care Teams Property Accountant Relationship Specialty Start Date End Date Derek Torres PA PCP - General Internal Medicine 06/07/21 [address] [place] [address] documented as of this encounter
--- OUTSIDE RECORDS SUMMARY | 2022-10-07 18:36 | XMS_ITS | Encounter Summary ---
:1955 Author Organization [facility] [place] [address] Care Team Providers Name Role Phone Derek Torres Primary Care Provider Reason for Visit Reason Comments IV Access Port flush Treatment/Therapy Plan Authorization (Routine) - Authorized Specialty Diagnoses / Procedures Referred By Contact Refer red To Contact Diagnoses Metastatic urothelial carcinoma Bone metastases Alberto Bhatia MD [facility] Hem Onc Office Procedures TC ZOLEDRONIC ACID, 1 MG, INJECTION TC PALONOSETRON HCL, 25MCG, INJECTION (ALOXI) J3489 ZOMETA [address] HEMATOLOGY/ONCOLOGY [place], [place] [phone] Fax: Referral ID Status Reason Start Date Expiration Date Visits V isits Requested Authorized [id number] Authorized 05/31/2022 05/30/2023 25 25 Encounter Details Date Type Department Care Team Description 08/09/2022 Infusion [facility] carcinoma [address] [place] [phone] Social History Tobacco Use Types Packs/Day Years Used Date Former Smoker Cigarettes 0.25 0 Quit: 06/2020 Smokeless Tobacco: Never Used Alcohol Use Standard Drinks/Week Comments Not Currently 0 (1 standard drink = 0.6 oz pure alcoho l) Sex Assigned at Date Recorded Not on file documented as of this encounter Progress Notes Uriel Oliva RN - 08/09/2022 12:00 PM EDT INFUSION THERAPY ADMINISTRATION NOTES DIAGNOSIS: Mets urothelial cancer REASON FOR VISIT: MEDIPORT FLUSH ONLY IV ACCESS: Mediport GAUGE: 19G BLOOD RETURN: yes ANY S/S OF INFECTION/EXTRAVASATIONS: no signs of IV complications observed IV FLUSHED WITH: 20cc NS and 500 units Heparin IV DISCONTINUED: yes ASSESSMENT: Patient tolerated treatment well. PLAN: Return to clinic per routine. documented in this encounter Plan of Treatment Upcoming Encounters Date Type Specialty Care Team Description 10/21/2022 Appointment Hematology and Oncology 10/21/2022 Hospital Encounter Radiology Adilene Link[address] [place] [address] (Wo rk) 10/21/2022 Appointment Radiology Adilene Link[address] [place] [address] (Wo rk) 10/21/2022 Appointment Radiology Adilene Link [address] [place] [address] (Wo rk) 10/25/2022 Office Visit Hematology and Oncology Alberto Guy MD [facility] DR HEMATOLOGY/[place] [address] [address] [place] [address] 11/09/2022 Office Visit Urology Bobo Davis MD [facility] UROLOGY [place], [place] [address] (Wo rk) documented as of this encounter Visit Diagnoses Diagnosis Metastatic urothelial carcinoma 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
--- OUTSIDE RECORDS SUMMARY | 2022-10-07 18:36 | XMS_ITS | Encounter Summary ---
:1955 Author Organization [facility] [place] [address] Care Team Providers Name Role Phone Derek Torres Primary Care Provider Reason for Visit Reason Comments Chemotherapy C6D1 enfortumab Treatment/Therapy Plan Authorization (Routine) - Authorized Specialty Diagnoses / Procedures Referred By Contact Refer red To Contact Diagnoses Urothelial carcinoma of kidney, right Malignant neoplasm of urinary bladder, unspecified site Neutropenia, drug-induced Metastatic urothelial carcinoma High risk medication use Alberto Bhatia MD [facility] Hem Onc Office Procedures TC PALONOSETRON HCL, 25MCG, INJECTION (ALOXI) TC ZOLEDRONIC ACID, 1 MG, INJECTION [id number] palonosetron (Aloxi) 0.25 MG [id number] enfortumab vedotin-ejfv (PADCEV) 125 mg J3489 ZOMETA [address] HEMATOLOGY/ONCOLOGY [place], [place] [phone] Fax: Referral ID Status Reason Start Date Expiration Date Visits V isits Requested Authorized [id number] Authorized 05/31/2022 05/30/2023 20 20 Encounter Details Date Type Department Care Team Description 06/28/2022 Infusion Hematology Oncology at [facility] metastases; [facility] Metastatic urothelial carcin flaquita; [address] [place] [address] High risk medication use; [place], [place] [phone] Neutropenia, drug-induced; [phone] Urothelial carc inoma of kidney, right; Malignant neopl asm of urinary bladder, unspecified site Social History Tobacco Use Types Packs/Day Years Used Date Former Smoker Cigarettes 0.25 0 Quit: 06/2020 Smokeless Tobacco: Never Used Alcohol Use Standard Drinks/Week Comments Not Currently 0 (1 standard drink = 0.6 oz pure alcoho l) Sex Assigned at Date Recorded Not on file documented as of this encounter Progress Notes Graciela Gay RN - 06/28/2022 11:00 AM EDT INFUSION THERAPY ADMINISTRATION NOTES DIAGNOSIS: Metastatic urothelial cancer CYCLE #: Cycle 6, Day 1 - Enfortumab + Zometa REASON FOR VISIT: To receive chemotherapy. SUBJECTIVE: Nancy offers no complaints. She had a provider visit prior to infusion, ready for treatment. OBJECTIVE: LAB DATA: WBC 8.84 , H/H 12.1/39.3, Plt Ct 294, ANC 6, Lytes WNL, BUN/Cr 32/1.5, IV ACCESS: Mediport accessed, blood return present and flushes easily. Deaccessed with 20cc NS and 500units heparin after infusion. Pre administration: Chemotherapy orders independently verified for drug name, route, and dosage per patient's height, weight and BSA by Graciela Gay, MORTEZA and Staff Pharmacist(s). REACTIONS (DESCRIPTION, TIME, INTERVENTION AND EFFECTIVENESS) none ASSESSMENT: Nancy was awake, alert and tolerated treatment well. PLAN: Return to clinic per plan.. documented in this encounter Plan of Treatment Upcoming Encounters Date Type Specialty Care Team Description 10/21/2022 Appointment Hematology and Oncology 10/21/2022 Hospital Encounter Radiology Adilene Link[address] MEDICAL ONCOLOGY [place], [place] [phone] (Kwadwo morataya) 10/21/2022 Appointment Radiology Adilene Link, [address] MEDICAL ONCOLOGY [place], [place] [phone] (Kwadwo morataya) 10/21/2022 Appointment Radiology Adilene Link[address] MEDICAL ONCOLOGY [place], [place] [address] (Wo rk) 10/25/2022 Office Visit Hematology and Oncology Alberto Guy MD [facility] DR HEMATOLOGY/[place] [address] MEDICAL ONCOLOGY [place], [place] [phone] 11/09/2022 Office Visit Urology Bobo Davis MD [facility] UROLOGY [place], [place] [address] (Wo rk) documented as of this encounter Visit Diagnoses Diagnosis Bone metastases Secondary malignant neoplasm of bone and bone marrow Metastatic urothelial carcinoma 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 High risk medication use Encounter for long-term (current) use of other medications Neutropenia, drug-induced Drug induced neutropenia Urothelial carcinoma of kidney, right Malignant neoplasm of urinary bladder, u nspecified site documented in this encounter Administered Medications Inactive Administered Medications - up to 3 most recent administrations Medication Order MAR Action Action Date Dose Rate Site calcium carbonate (Tums) chewable Given 06/28/2022 12:05 PM EDT 500 mg tablet 500 mg 500 mg, Oral, ONCE, 1 dose, On Mon06/28/22 at 1145, Routine enfortumab vedotin-ejfv (PADCEV) New Bag 06/28/2022 12:29 PM E DT 120 mg 124 mL/hr 120 mg in sodium chloride 0.9% 62 mL chemo infusion 120 mg, Intravenous, ONCE, 1 dose, On Mon06/28/22 at 1300, Administer over 30 Minutes, Dose Ordered = 125 mg (1.25 mg/kg). Pharmacist rounded dose per procedure - re-ordered by provider. Warning Vesicant/Irritant Medication , This agent is restricted to outpatient use. Is this drug being given as an outpatient? Yes heparin (pf) (porcine) (100 units/mL) Given 06/28/2022 1:02 PM E DT 500 Units flush 5 mL syringe 500 Units 500 Units, Intravenous, ONCE PRN, Starting on Mon06/28/22 at 1132, Until Mon06/28/22 at 1524, Line Care, Refer to Intravenous (IV) Procedure: Accessing Implanted Vascular Access Devices (654) procedure and/or Intravenous (IV) Job Aid: Adult Flushing & Catheter Care (0135) job aid for additional information regarding guidelines and administration., Routine palonosetron (Aloxi) (0.05 mg/mL) injection Given 12/2021 12:02 PM EDT 0.25 mg 0.25 mg 0.25 mg, Intravenous, ONCE, 1 dose, On Mon06/28/22 at 1200, Administer over 30 seconds. Administer prior to chemotherapy, Routine sodium chloride 0.9 % (flush) (BD PosiFlush Given 06/28/2022 1:02 PM EDT 20 mLs Normal Saline 0.9) flush 5-20 mL 5-20 mL, Intravenous, EVERY 1 MIN PRN, Starting on Mon06/28/22 at 1132, Until Mon06/28/22 at 1524, Line Care, Flush pertains to all indwelling lines. Flush per protocol found in the job aid using the link provided on this medication record. Refer to Intravenous (IV) Job Aid: Adult Flushing & Catheter Care (0888) job aid for additional information regarding guidelines and administration., Routine sodium chloride 0.9% infusion New Bag 06/28/2022 12:05 PM EDT 100 mL/hr 100 mL/hr 100 mL/hr, Intravenous, CONTINUOUS, Starting on Mon06/28/22 at 1200, Until Mon06/28/22 at 1524 zoledronic acid (Zometa) 3 mg in New Bag 06/28/2022 12:05 PM EDT 3 mg 415 mL/hr sodium chloride 0.9% 103.75 mL infusion 3 mg, Intravenous, ONCE, 1 dose, On Mon06/28/22 at 1145, Administer over 15 Minutes, Do not administer or Y-site with calcium-containing solutions such as lactated ringers. Do not mix with IV Calcium-containing products. CrCl > 60 ml/min: Recommended dose is 4mg IV. CrCl 50-60 ml/min: Reduce dose to 3.5 mg IV. CrCl 40-49 ml/min: Reduce dose to 3.3 mg IV. CrCl 30-39 ml/min: Reduce dose to 3 mg IV. CrCl < 30 ml/min: Use not recommended due to lack of clinical data, Indication for: Multiple myeloma and bone metastases documented in this encounter Care Teams Shoe Stamper Relationship Specialty Start Date End Date Derek Torres PA PCP - General Internal Medicine 06/07/21 Mahn[address] [place] [address] documented as of this encounter
--- OUTSIDE RECORDS SUMMARY | 2022-10-07 18:36 | XMS_ITS | Encounter Summary ---
:1955 Author Organization [facility] [place] [address] Care Team Providers Name Role Phone Derek Torres Primary Care Provider Encounter Details Date Type Department Care Team Description 08/26/2022 Ancillary Procedure Radiology Library at Linsey Torres [facility] [place] [address] [address] [phone] [place], [place] [phone] (Wo rk) Social History Tobacco Use Types [...] Oncology 10/21/2022 Hospital Encounter Radiology Adilene Link APRN [address] [place] [address] DR MEDICAL ONCOLOGY [place], [place] [phone] (Wo rk) 10/21/2022 Appointment Radiology Adilene Link [address] MEDICAL ONCOLOGY [place], [place] [phone] (Wo rk) 10/21/2022 Appointment Radiology Adilene Link [address] MEDICAL ONCOLOGY [place], [place] [phone] (Wo rk) 10/25/2022 Office Visit Hematology and Oncology Alberto Guy MD [facility] DR HEMATOLOGY/[place] [address] Adilene Link, [address] MEDICAL ONCOLOGY [place], [place] [phone] 11/09/2022 Office Visit Urology Bobo Davis MD [facility] UROLOGY [place], [place] [address] (Wo rk) documented as of this encounter Procedures Procedure Name Priority Date/Time Associated Comments Diagnosis FILM LIBRARY STORAGE Routine 08/26/2022 4:14 PM R esults for this ONLY ULTRASOUND EDT procedure ar e in STUDY the results section. documented in this encounter Results Film Library- Storage Only Ultrasound Study (08/26/2022 4:14 PM EDT) Specimen (Source) Anatomical Location Collection Method / Collectio n Time Received Time / Laterality Volume Narrative RAD - 08/26/2022 4:14 PM EDT This exam is auto-finalizing. It's purpo se is for storage only. Derek ESTRELLA IMShantel FILM LIBRARY ORDERABLES Performing Organization Address City/State/ZIP Code Phon e Number [place], [place] documented in this encounter Visit Diagnoses Not on filedocumented in this encounter Care Teams Road Design Engineer Relationship Specialty Start Date End Date Derek Torres PA PCP - General Internal Medicine 06/07/21 Mahnaz [address] [place], [place] [address] documented as of this encounter
--- OUTSIDE RECORDS SUMMARY | 2022-10-07 18:36 | XMS_ITS | Encounter Summary ---
:1955 [place] [address] Care Team Providers Name Role Phone Derek Torres Primary Care Provider Encounter Details Date Type Department Care Team Description 09/06/2022 Refill Hematology/Oncology at Jannette Alberto, Metastatic urothelial [facility] carcinoma [address] [place] [phone] HEMATOLOGY/ONCOLOGY [phone] [place], [place] [address] (Wo rk) Social History Tobacco Use Types [...] Oncology 10/21/2022 Hospital Encounter Radiology Adilene Link [address] [address] (Wo rk) 10/21/2022 Appointment Radiology Adilene Link [address] MEDICAL ONCOLOGY [place], [place] [phone] (Kwadwo rk) 10/21/2022 Appointment Radiology Adilene Link [address] [address] (Wo rk) 10/25/2022 Office Visit Hematology and Oncology Alberto Guy MD [facility] HEMATOLOGY/[place] [address] MEDICAL ONCOLOGY [place], [place] [phone] 11/09/2022 Office Visit Urology Bobo Davis MD [facility] UROLOGY [place], [place] [address] (Wo rk) documented as of this encounter Visit Diagnoses Diagnosis Metastatic urothelial carcinoma 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
--- OUTSIDE RECORDS SUMMARY | 2022-10-07 18:36 | XMS_ITS | Encounter Summary ---
:1955 Author Organization [facility] [place] [address] Care Team Providers Name Role Phone Derek Torres Primary Care Provider Encounter Details Date Type Department Care Team Description 06/14/2022 Office Visit Hematology/Oncology Rah Bhatia MD [facility] DR HEMATOLOGY/[place] [address] Metastatic urothelial carcinoma; at [facility] Ankita Pierre APRN [facility] RADIATION [place] [address] High risk medication use; [address] Encounter for antineoplastic chemotherapy and immunotherapy; [place], [place] Bone metast ases [id number] Social History Tobacco Use Types Packs/Day Years Used Date Former Smoker Cigarettes 0.25 0 Quit: 06/2020 Smokeless Tobacco: Never Used Alcohol Use Standard Drinks/Week Comments Not Currently 0 (1 standard drink = 0.6 oz pure alcoho l) Sex Assigned at Date Recorded Not on file documented as of this encounter Last Filed Vital Signs Vital Sign Reading Time Taken Comments Blood Pressure 140/46 06/14/2022 8:37 AM EDT Pulse 79 06/14/2022 8:37 AM EDT Temperature 36.4 ??C (97.5 ??F) 06/14/2022 8:37 AM EDT Respiratory Rate 16 06/14/2022 8:37 AM EDT Oxygen Saturation 96% 06/14/2022 8:37 AM EDT Inhaled Oxygen Concentration - - Weight 99.3 kg (219 lb) 06/14/2022 8:37 AM EDT Height 161.2 cm (5' 3.47) 06/14/2022 8:37 AM EDT Body Mass Index 38.23 06/14/2022 8:37 AM EDT documented in this encounter Progress Notes Alberto Bhatia MD - 06/14/2022 9:30 AM EDT Images from the original note were not included. Hematology & Medical Oncology [address] [id number] Nancy returns today to continue treatment for [...] retroperitoneal lymph nodes on January 22 at [facility]. Pathology is pending. PET scan demonstrated increased [...] and and antibiotics with ciprofloxacin. IInterval history (06/13/22) Nancy returns today to continue treatment for her metastatic urothelial cancer She continues to feel at her baseline or slightly better. She states her digestive system is better. She only has low back pain intermittently. Pain is mild and does not require it with Tylenol. . Appetite is good but either food has no taste or tastes weird. She has had a rash on her arms and trunk that comes and goes. It is itchy at times. She was treated for UTI with Keflex which she finished 2 days ago. She still has fatigue and gets short of breath easily with exertion. She does not have much stamina. There bowel movements are regular she denies any fevers or chills. ROS is otherwise negative. PMH: No interval changes since last visit UTI was treated with antibiotics Completed antibiotics for UTI about a week ago. 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 Finalpathology- [id number] High grade UCC with negative margins UTI E. coli 100,000 colonies PTSD/depression, diabetes mellitus on insulin, arthritis, , hernia repair x3, anxiety, hysterectomy for urinary incontinence 2 to 3 years ago Social History: No interval changes since last visit [id number] smoking history, quit 6 months ago, does [...] Medications: Your Medications Accurate as of June 14, 2022 9:18 AM. If you have any questions, ask [...] U-100 100 unit/mL (3 mL) Inpn Inject 66 Units subcutaneously daily. Generic drug: insulin degludec 66 Units Refills: 0 losartan 100 mg Tab Commonly known as: COZAAR Take 50 mg by mouth daily. 50 mg Refills: 0 Jeanne Pen Needle 32 gauge x Ndle Generic drug: insulin needles (disposable) Refills: [...] Thought content normal. Judgment: Judgment normal. BP 140/46 (Patient Position: Sitting) Pulse 79 Temp 36.4 ??C (97.5 ??F) (Temporal) Resp 16 Ht 161.2 cm (5' 3.47) Wt 99.3 kg (219 lb) SpO2 96% BMI 38.23 kg/m?? Wt Readings from Last 3 Encounters: 06/14/22 99.3 kg (219 lb) 06/07/22 100.7 kg (222 lb) 05/31/22 101.3 kg (223 lb 4.8 oz) Pathology: 06/16/21 ADDENDUM DISCUSSION PAS and BMS stains were evaluated for Block A17, demonstrating nodular ??glomerulosclerosis. Electronically signed by: ?MD Fadumo, Rick Lee Verified: ??06/24/2021 11:01 ??Pathologist Performed at: ??-[facility] Dept. of Pathology, [place], [place] ? Surgical Pathology DIAGNOSIS Right kidney and ureter with paracaval and intracaval lymph nodes, excision: ??- Urothelial carcinoma. ?? (See SYNOPTIC REPORT), invasive into ? perinephric fat and renal parenchyma. 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 Electronically signed by: ?MD Fadumo, Rick Lee Verified: ??06/24/2021 10:58 ??Pathologist Performed at: ??-[facility]??Dept. of Pathology, [place], [place] SYNOPTIC Specimen ?Procedure: ??Nephroureterectomy ?Specimen Laterality: [...] carcinoma with superimposed abundant degenerative changes Labs: 06/14/2022 WBC 12.36, hemoglobin 11.8, platelet count [...] TB 0.4, AST 26, ALT 39, alkaline [id number], albumin 3.3, TSH 2.62, free T4 1.4. [...] hemoglobin 12.2, platelet count 347, Imagin06/13/22 PET scan is pending 03/11/22. PET-CT scan: IMPRESSION Skeletal metastases are [...] otherwise we will continue treatment with Padcev # CHF: Increased pericardial effusion. 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 Ebony Beckham,had stress test [...] and/or benadryl as prescribed. PLAN: 1. Enfortumab D15C5 today 2. . Continue calcium/vitamin D supplements. 3. Follow up visit in2 weeks with CBC,CMP, Zometa and D1 C6 of enfortumab romanshad Nancy voiced understanding of the plan and was given an opportunity to ask questions which I answered to the best of my ability. Nancy understands she can call the clinic between visits with any questions/concerns or new symptoms. documented in this encounter Plan of Treatment Upcoming Encounters Date Type Specialty Care Team Description 10/21/2022 Appointment Hematology and Oncology 10/21/2022 Hospital Encounter Radiology NikolayAdilene [address] MEDICAL ONCOLOGY [place], [place] [phone] (Wo rk) 10/21/2022 Appointment Radiology PowellAdilene [address] ONCOLOGY [place], [place] [phone] (Wo rk) 10/21/2022 Appointment Radiology Adilene [address] MEDICAL ONCOLOGY [place], [place] [address] (Wo rk) 10/25/2022 Office Visit Hematology and Oncology Alberto Guy MD [facility] DR HEMATOLOGY/[place] [address] [address] MEDICAL ONCOLOGY [place], [place] [address] [phone] 11/09/2022 Office Visit Urology Bobo Davis MD [facility] UROLOGY [place] [address] (Wo rk) documented as of this encounter Visit Diagnoses Diagnosis Metastatic urothelial carcinoma 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 High risk medication use Encounter for long-term (current) use of other medications Encounter for antineoplastic chemotherap y and immunotherapy Bone metastases Secondary malignant neoplasm of bone and bone marrow documented in this encounter Care Teams Brigadier Relationship Specialty Start Date End Date Derek Torres PA PCP - General Internal Medicine 06/07/21 [address] [place] [address] documented as of this encounter
--- OUTSIDE RECORDS SUMMARY | 2022-10-07 18:36 | XMS_ITS | Encounter Summary ---
:1955 Author Organization [facility] [place] [address] Care Team Providers Name Role Phone Derek Torres Primary Care Provider Reason for Visit Reason Comments IV Access Port flush Encounter Details Date Type Department Care Team Description 09/20/2022 Infusion Hematology Oncology at [facility] urothelial [facility] [address] [place], [place] [phone] Social History Tobacco Use Types Packs/Day Years Used Date Former Smoker Cigarettes 0.25 0 Quit: 06/2020 Smokeless Tobacco: Never Used Alcohol Use Standard Drinks/Week Comments Not Currently 0 (1 standard drink = 0.6 oz pure alcoho l) Sex Assigned at Date Recorded Not on file documented as of this encounter Progress Notes Brittny Rondon RN - 09/20/2022 12:00 PM EDT INFUSION THERAPY ADMINISTRATION NOTES TIME TREATMENT STARTED: 1155 TIME TREATMENT ENDED:1200 DIAGNOSIS: Urothelial CA REASON FOR VISIT: MEDIPORT FLUSH ONLY IV [...] Oncology 10/21/2022 Hospital Encounter Radiology Adilene [address] [place] [address] (Wo rk) 10/21/2022 Appointment Radiology Adilene [address] [place] [address] (Wo rk) 10/21/2022 Appointment Radiology Adilene [address] [place] [address] (Wo rk) 10/25/2022 Office Visit Hematology and Oncology Alberto Guy MD [facility] DR HEMATOLOGY/[place] [address] ONCOLOGY [place], [place] [phone] 11/09/2022 Office Visit Urology Bobo Davis MD [facility] DR UROLOGY [place], [place] [address] (Wo rk) documented as of this encounter Visit Diagnoses Diagnosis Metastatic urothelial carcinoma 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 documented in this encounter Care Teams Kalsominer Relationship Specialty Start Date End Date Derek Torres PA PCP - General Internal Medicine 06/07/21 [address] [place], [place] [phone] documented as of this encounter
--- OUTSIDE RECORDS SUMMARY | 2022-10-07 18:36 | XMS_ITS | Encounter Summary ---
:1955 Author Organization [facility] [place] [address] Care Team Providers Name Role Phone Derek Torres Primary Care Provider Reason for Visit Reason Comments Chemotherapy [id number] enfortumab Treatment/Therapy Plan Authorization (Routine) - Authorized Specialty Diagnoses / Procedures Referred By Contact Refer red To Contact Diagnoses Urothelial carcinoma of kidney, right Malignant neoplasm of urinary bladder, unspecified site Neutropenia, drug-induced Metastatic urothelial carcinoma High risk medication use Alberto Bhatia MD [facility] Hem Onc Office Procedures TC PALONOSETRON HCL, 25MCG, INJECTION (ALOXI) TC ZOLEDRONIC ACID, 1 MG, INJECTION J2469 palonosetron (Aloxi) 0.25 MG J9177 enfortumab vedotin-ejfv (PADCEV) 125 mg J3489 ZOMETA 3 MG [facility] [address] [place] [address] HEMATOLOGY/[place] [phone] Fax: Referral ID Status Reason Start Date Expiration Date Visits V isits Requested Authorized [id number] Authorized 05/31/2022 05/30/2023 20 20 Encounter Details Date Type Department Care Team Description 06/14/2022 Infusion Hematology Oncology at [facility] tastatic urothelial carcinoma; [facility] High risk medication use; [address] [place] [address] Neutropenia, drug-induced; [place], [place] [phone] Urothelial carcinoma of kidn ey, right; [phone] Malignant neopl asm of urinary bladder, unspecified [...] encounter Progress Notes Graciela Gay RN - 06/14/2022 10:00 AM EDT INFUSION THERAPY ADMINISTRATION NOTES DIAGNOSIS: Metastatic urothelial cancer CYCLE #: Cycle 5, Day 15 - Enfortumab REASON FOR VISIT: To receive chemotherapy. SUBJECTIVE: Nancy offers no complaints. She had a provider visit prior to infusion, ready for treatment. OBJECTIVE: LAB DATA: WBC 12.36, H/H 11.8/37.6, Plt Ct 234, ANC 9.36, Lytes WNL, BUN/Cr 42/1.7, IV ACCESS: Mediport accessed, blood return present [...] and Oncology 10/21/2022 Hospital Encounter Radiology Adilene [address] [place] [address] (Kwadwo morataya) 10/21/2022 Appointment Radiology Adilene Link [address] [place] [address] (Kwadwo morataya) 10/21/2022 Appointment Radiology Adilene [address] [place] [address] (Wo rk) 10/25/2022 Office Visit Hematology and Oncology Alberto Guy MD [facility] DR HEMATOLOGY/[place] [address] [place] [address] 11/09/2022 Office Visit Urology Bobo Davis MD [facility] UROLOGY [place], [place] [address] (Wo rk) documented as of [...] MAR Action Action Date Dose Rate Site enfortumab vedotin-ejfv New Bag 06/14/2022 10:41 AM EDT 120 mg 124 mL/hr (PADCEV) 120 mg in sodium chloride 0.9% 62 mL chemo infusion 120 mg, Intravenous, ONCE, 1 dose, On Mon06/14/22 at 1100, Administer over 30 Minutes, Warning Vesicant/Irritant Medication Dose Ordered = 125 mg (1.25 mg/kg). Pharmacist rounded dose per procedure., This agent is restricted to outpatient use. Is this drug being given as an outpatient? Yes palonosetron (Aloxi) (0.05 mg/mL) injection Given 05/27 10:37 AM EDT 0.25 mg 0.25 mg 0.25 mg, Intravenous, ONCE, 1 dose, On Mon06/14/22 at 1000, Administer over 30 seconds. Administer prior to chemotherapy, Routine sodium chloride 0.9% infusion New Bag 06/14/2022 10:09 AM EDT 100 mL/hr 100 mL/hr 100 mL/hr, Intravenous, CONTINUOUS, Starting on Mon06/14/22 at 1000, Until Mon06/14/22 at 1326 documented in this encounter Care Teams Cotton Program Technician Relationship Specialty Start Date End Date Derek Torres PA PCP - General Internal Medicine 06/07/21 [address] [place] [address] documented as of this encounter
--- OUTSIDE RECORDS SUMMARY | 2022-10-07 18:36 | XMS_ITS | Encounter Summary ---
:1955 Author Organization [facility] [place] [address] Care Team Providers Name Role Phone Derek Torres Primary Care Provider Encounter Details Date Type Department Care Team Description 08/09/2022 Office Visit Hematology/Oncology Rah Bhatia MD [facility] DR HEMATOLOGY/[place] [address] Bone metastases; at [facility], Adilene L [address] [address] Metastatic urothelial carcinoma; [address] [place] [address] Urothelial carcinoma of [facility], [place] [phone] Social History Tobacco Use Types Packs/Day Years Used Date Former Smoker Cigarettes 0.25 0 Quit: 06/2020 Smokeless Tobacco: Never Used Alcohol Use Standard Drinks/Week Comments Not Currently 0 (1 standard drink = 0.6 oz pure alcoho l) Sex Assigned at Date Recorded Not on file documented as of this encounter Last Filed Vital Signs Vital Sign Reading Time Taken Comments Blood Pressure 143/68 08/09/2022 11:15 AM EDT Pulse 69 08/09/2022 11:15 AM EDT Temperature 36.4 ??C (97.5 ??F) 08/09/2022 11:15 AM EDT Respiratory Rate 16 08/09/2022 11:15 AM EDT Oxygen Saturation 99% 08/09/2022 11:15 AM EDT Inhaled Oxygen Concentration - - Weight 98.9 kg (218 lb) 08/09/2022 11:15 AM EDT Height 161.2 cm (5' 3.47) 08/09/2022 11:15 AM EDT Body Mass Index 38.05 08/09/2022 11:15 AM EDT documented in this encounter Progress Notes Alberto Bhatia MD - 08/09/2022 11:30 AM EDT Images from the original note were not included. Hematology & Medical Oncology [address] [phone] Nancy returns today for f/u on metastatic bladder cancer. Patient Active Problem List [...] retroperitoneal lymph nodes on January 22 at [facility]. Pathology is pending. PET scan demonstrated [...] and and antibiotics with ciprofloxacin. IInterval history (08/09/22) Nancy returns today to continue treatment for her metastatic urothelial cancer and Zometa infusion. She has been off treatment with enfortumab for last 6 weeks. Feels much better. More energy. Her taste has recovered. Intermittent backache. She would like to see a environmental safety specialist. F Pain is mild and controlled with Tylenol. . Appetite is good . She had bronchitis and completed antibiotics last week. Your primary care provider stopped Lasix due to deterioration of her kidney function.. . There bowel movements are regular she denies any fevers or chills. ROS is otherwise n egative. PMH: No interval changes since last visit UTI was treated with antibiotics Completed antibiotics for UTI about a week ago. 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 Finalpathology- [id number] High grade UCC with negative margins UTI E. coli 100,000 colonies PTSD/depression, diabetes mellitus on insulin, arthritis, , hernia repair x3, anxiety, hysterectomy for urinary incontinence 2 to 3 years ago Social History: No interval changes since last visit [id number] smoking history, quit 6 months ago, does [...] dressing Medications: Your Medications Accurate as of August 09, 2022 11:32 AM. If you have any questions, ask [...] needed for Itching. 25 mg Refills: 0 humaLOG KwikPen 100 unit/mL Inpn INJECT SUBCUTANEOUSLY PER SLIDING SCALE THREE TIMES A DAY BEFORE MEALS 101TO 150 2 UNITS 151 TO 200 4 UNITS 201 TO 250 6 UNITS 251 TO 3 Generic drug: insulin lispro Refills: 0 hydrocortisone 2.5 % Crea Apply topically 2 times daily. Refills: 0 Insulin Tresiba FlexTouch U-100 100 unit/mL (3 mL) Inpn Inject 42 Units subcutaneously daily. Generic drug: insulin degludec 42 Units Refills: 0 losartan 100 mg Tab [...] Thought content normal. Judgment: Judgment normal. BP 143/68 (Patient Position: Sitting) Pulse 69 Temp 36.4 ??C (97.5 ??F) (Temporal) Resp 16 Ht 161.2 cm (5' 3.47) Wt 98.9 kg (218 lb) SpO2 99% BMI 38.05 kg/m?? Wt Readings from Last 3 Encounters: 08/09/22 98.9 kg (218 lb) 06/28/22 98.6 kg (217 lb 6.4 oz) 06/14/22 99.3 kg (219 lb) Pathology: 06/16/21 ADDENDUM DISCUSSION PAS and BMS stains were evaluated for Block A17, demonstrating nodular ??glomerulosclerosis. Electronically signed by: ?MD Fadumo, Rick Lee Verified: ??06/24/2021 11:01 ??Pathologist Performed at: ??-[facility] Dept. of Pathology, [place], [place] ? Surgical Pathology DIAGNOSIS Right kidney and ureter with paracaval and intracaval lymph nodes, excision: ??- Urothelial carcinoma. ?? (See SYNOPTIC REPORT), invasive into ? perinephric fat and renal parenchyma. 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 Electronically signed by: ?MD Thorne Jason R. Verified: ??06/24/2021 10:58 ??Pathologist Performed at: ??-[facility]Dept. of Pathology, [place], [place] SYNOPTIC Specimen ?Procedure: ??Nephroureterectomy ?Specimen Laterality: [...] carcinoma with superimposed abundant degenerative changes Labs: 08/26/2022 BUN 52, creatinine 2.3, calcium 8.9, TB 0.3 AST 15, ALT 24, alkaline phosphatase 115, albumin 3.2, TSH 2.28, free T4 1.13. WBC 11.96, hemoglobin 11.7, platelet count 291. 06/28/2022 WBC 8.84, hemoglobin 12.1, platelet count [...] TB 0.4, AST 26, ALT 39, alkaline [id number], albumin 3.3, TSH 2.62, free T4 1.4. [...] She still wants to be treated today. 08/09/22 overall, Nancy feels better after treatment with Padcev. She has more energy. She was treated with antibiotics for an bronchitis. He Lasix was recently stopped due to deterioration of the kidney function. Her kidney function has been slowly improving. 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 We will see her back in 6 weeks with bloodwork again. We will decide about timing of next restaging PET scan next visit. # CHF: Increased pericardial effusion. 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 Ebony Beckham,had stress test [...] cream and/or benadryl as prescribed. PLAN: 1. Hold Zometa 2. . Continue calcium/vitamin D supplements. 3.F/u with PCP 4. Follow up visit in 6 weeks with CBC,CMP Nancy voiced understanding of the plan and was given an opportunity to ask questions which I answered to the best of my ability. Nancy understands she can call the clinic between visits with any questions/concerns or new symptoms. documented in this encounter Plan of Treatment Upcoming Encounters Date Type Specialty Care Team Description 10/21/2022 Appointment Hematology and Oncology 10/21/2022 Hospital Encounter Radiology Adilene [address] [place] [address] (Wo rk) 10/21/2022 Appointment Radiology Adilene [address] [place] [address] (Wo rk) 10/21/2022 Appointment Radiology Adilene [address] [place] [address] (Wo rk) 10/25/2022 Office Visit Hematology and Oncology Alberto Guy MD [facility] DR HEMATOLOGY/[place] [address] [address] MEDICAL ONCOLOGY [place], [place] [phone] 11/09/2022 Office Visit Urology Bobo Davis MD [facility] DR UROLOGY [place], [place] [address] (Wo rk) documented as of this encounter Visit Diagnoses Diagnosis Bone metastases Secondary malignant neoplasm of bone and bone marrow Metastatic urothelial carcinoma 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 Urothelial carcinoma of kidney, right documented in this encounter Care Teams Chief Unit Forester Relationship Specialty Start Date End Date Derek Torres PA PCP - General Internal Medicine 06/07/21 [address] [place], [place] [phone] documented as of this encounter
--- OUTSIDE RECORDS SUMMARY | 2022-10-07 18:36 | XMS_ITS | Encounter Summary ---
:1955 Author Organization [facility] [address] Care Team Providers Name Role Phone Derek Torres Primary Care Provider Reason for Referral Diagnostic Test (Routine) - New Request Specialty Diagnoses / Procedures Referred By Contact Refer red To Contact Radiology Diagnoses Metastatic urothelial carcinoma Bone metastases Adilene Link APRN [facility] Rad Mri Procedures MRI Hip wo Contrast Left (Generic) [address] [place] [address] [place] [address] [place], [place] [address] Referral ID Status Reason Start Expiration Visits Visits Date Date Requested Authorized [id number] New Request Specialty 03/21/2024 1 1 Service 2 Requested iagnostic Test (Routine) - Authorized Specialty Diagnoses / Procedures Referred By Contact Refer red To Contact Radiology Diagnoses Metastatic urothelial carcinoma Bone metastases Adilene Link APRN [facility] Rad Nuclear Med Procedures NM PET CT Skull Base to Mid-thigh [address] [place] [address] [place] [address] [place], [place] [address] Referral ID Status Reason Start Expiration Visits Visits Date Date Requested Authorized [id number] Authorized Specialty 10/25/2022 1 1 Service 2 Requested Encounter Details Date Type Department Care Team Description 09/20/2022 Office Visit Hematology/Oncology Rah Bhatia MD [facility] DR [place]EMATOLOGY/[place] [address] Metastatic urothelial carcinoma; at [facility] Adilene Link APRN [address] [place] [address] [place] [address] Bone metastases; [address] [place] [address] Radiculopathy, [place] [address] Social History Tobacco Use Types [...] Mass Index 38.96 09/20/2022 10:55 AM EDT documented in this encounter Progress Notes Adilene Link APRN - 09/20/2022 11:30 AM EDT Images from the original note were not included. Hematology & Medical Oncology [address] [address] Nancy returns today for f/u on metastatic [...] R10.9 ??? Leukocytosis D72.829 ??? Pericardial effusion I31.39 ??? Peripheral neuropathy G62.9 ??? Renal mass [...] retroperitoneal lymph nodes on January 22 at [facility]. Pathology is pending. PET scan demonstrated increased [...] and and antibiotics with ciprofloxacin. IInterval history (08/2522) Nancy returns today to continue treatment for her metastatic urothelial cancer. She is accompanied by her . She is complaining of left hip pain that radiates down herleg. She doesn't believe it is related to her back. She thinks it is coming from her left hip. She was supposed to have a hip replacement before all the cancer started. She would like to have her hip checked out. She is currently taking hydrocodone alternating with tylenol for the pain with some relief. It bothers her the most at night and it is affecting her mobility. Denies any bowel or bladder issues except for constipation from the pain medication. No fevers, chills or signs of infection. No other focal complaints today. PMH: No interval changes since last visit UTI was treated with antibiotics Completed antibiotics for UTI about a week ago. 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 Finalpathology- [id number] High grade UCC with negative margins UTI E. coli 100,000 colonies PTSD/depression, diabetes mellitus on insulin, arthritis, , hernia repair x3, anxiety, hysterectomy for urinary incontinence 2 to 3 years ago Social History: No interval changes since last visit 90-jwda-elch smoking history, quit 6 months ago, does [...] leg pain ??? Ativan [Lorazepam] Rash ??? Loratadine Palpitations hyper ??? Sulfa (Sulfonamide Antibiotics) ??? Tegaderm [Transparent Dressings] Dermatitis Tegaderm/stat-lock of IV dressing ??? Tramadol Anxiety Medications: Your Medications Accurate as of September 20, 2022 3:14 PM. If you have any questions, ask your [...] needed for Pain. 975 mg Refills: 0 amLODIPine 5 mg Tab Commonly known as: Norvasc Daily. Refills: 0 apixaban 5 mg Tab Commonly [...] 3 Generic drug: insulin lispro Refills: 0 HYDROcodone-acetaminophen 5-325 mg Tab Commonly known as: Reno Take 1 tablet by mouth every 6 hours as needed for Pain. 1 tablet Quantity: 20 tablet Refills: 0 hydrocortisone 2.5 % Crea Apply topically 2 times daily. Refills: 0 Insulin Tresiba FlexTouch U-100 100 unit/mL (3 mL) Inpn Inject 42 Units subcutaneously daily. Generic drug: insulin degludec 42 Units Refills: 0 losartan 100 mg Tab Commonly known as: COZAAR Take 25 mg by mouth daily. 25 mg Refills: 0 Jeanne Pen Needle 32 [...] Thought content normal. Judgment: Judgment normal. BP 192/65 (Patient Position: Sitting) Pulse 68 Temp 36.3 ??C (97.3 ??F) (Temporal) Resp 16 Ht 161.2 cm (5' 3.47) Wt 101.2 kg (223 lb 3.2 oz) SpO2 99% BMI 38.96 kg/m?? Wt Readings from Last 3 Encounters: 09/20/22 101.2 kg (223 lb 3.2 oz) 08/09/22 98.9 kg (218 lb) 06/28/22 98.6 kg (217 lb 6.4 oz) Pathology: 06/16/21 ADDENDUM DISCUSSION PAS and BMS stains were evaluated for Block A17, demonstrating nodular ??glomerulosclerosis. Electronically signed by: ?MD Thorne Jason R. Verified: ??06/24/2021 11:01 ??Pathologist Performed at: ??-[facility] Dept. of Pathology, [place], [place] ? Surgical Pathology DIAGNOSIS Right kidney and ureter with paracaval and intracaval lymph nodes, excision: ??- Urothelial carcinoma. ?? (See SYNOPTIC REPORT), invasive into ? perinephric fat and renal parenchyma. 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 Electronically signed by: ?MD Thorne Jason R. Verified: ??06/24/2021 10:58 ??Pathologist Performed at: ??-[facility]??Dept. of Pathology, [place], [place] SYNOPTIC Specimen ?Procedure: ??Nephroureterectomy ?Specimen Laterality: [...] carcinoma with superimposed abundant degenerative changes Labs: 09/20/22- WBC-9.69 Hgb/Hct-10.8/34.7 MCV-95 Plt-293 ANC-7.14 Na-135 K+-5.0 BUN/Cr-38/1.9 Glucose-119 Ca-8.8 T. Bili-0.3 AST-13 ALT-21 Alk phos-106 Albumin-3.3 TSH-1.90 Free T4-1.17 08/26/2022 BUN 52, creatinine 2.3, calcium 8.9, [...] TB 0.4, AST 26, ALT 39, alkaline [id number], albumin 3.3, TSH 2.62, free T4 1.4. [...] protein 1+, blood moderate. Nitrites negative, RBC 09/20, bacteria many, 03/22/2021 vitamin B12 more than [...] She continues to follows with her PCP ILENE perez I will hold Zometa today due to low creatinine clearance. We will see her back in 6 weeks with bloodwork again. We will decide about timing of next restaging PET scan next visit. 09/20/22- Nancy is having more left hip pain with radiculopathy. We will get a restaging PET scan and MRI of her left hip. Zometa is currently on hold due to kidney function. She continues to follow closely with PCP ILENE Torres. # CHF: Increased pericardial effusion. 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 Ebony Beckham,had stress test on April 01, 2021 technically suboptimal, but no definite myocardial ischemia or evidence of prior infarction. EF 63% #Elevated creatinine/hyperkalemia:? Effect of antihypertensive therapy particularly losartan. Potassium remains normal. #Anemia: Hemoglobin 10.8 Asymptomatic Remains relatively stable. Multifactoral. It is slowly improving post surgery. Kidney insufficiency could contribute to anemia as well. It does contribute to her fatigue. Will monitor. # Hypertension-on losartan Losartan decreased to 50 mg day and she is now taking Chlorthalidone 25 mg daily. BP has stabilized. #Bone sparing agent: Zometa is currently on hold due to Cr Cl. Continue calcium citrate 500mg three times a day with meals. Continue Vitamin D supplement. #UTI- resolved # Rash- scattered. Continue steroid cream and/or benadryl as prescribed. # Radiculopathy left hip- MRI ordered PLAN: 1. Hold Zometa 2. Continue calcium/vitamin D supplements. 3.F/u with PCP 4. Follow up visit in 3- 6 weeks with CBC,CMP and PET/MRI results. 5. Restaging PET scan and MRI Left hip. Nancy voiced understanding of the plan and was given an opportunity to ask questions which I answered to the best of my ability. Nancy understands she can call the clinic between visits with any questions/concerns or new symptoms. I spent 30 minutes, (including face to face and non-face to face time) for this encounter. This includes: Preparation for the visit: _x_ reviewing test results _x_ obtaining interim medical/surgical history __ reviewing patient completed questionnaires During the visit: _x_ obtaining the history/ROS _x_ performing medically appropriate examination and ROS _x_ reviewing test results with patient/family/caregiver _x_ discussing disease status _x_ counseling/educating the patient/family/caregiver __ ordering medications/tests/procedures _x_ referring and communicating with other health professionals Post visit: x__ documenting in medical record x__ communications with other health professionals __ other: documented in this encounter Plan of Treatment Upcoming Encounters Date Type Specialty Care Team Description 10/21/2022 Appointment Hematology and Oncology 10/21/2022 Hospital Encounter Radiology Adilene Link [address] MEDICAL ONCOLOGY [place], [place] [phone] (Kwadwo morataya) 10/21/2022 Appointment Radiology Adilene Link[address] MEDICAL ONCOLOGY [place], [place] [phone] (Kwadwo rk) 10/21/2022 Appointment Radiology Adilene Link[address] MEDICAL ONCOLOGY [place], [place] [address] [phone] (Kwadwo morataya) 10/25/2022 Office Visit Hematology and Oncology Alberto Guy MD [facility] DR HEMATOLOGY/[place] [address] Adilene Link [address] MEDICAL ONCOLOGY [place], [place] [phone] 11/09/2022 Office Visit Urology Bobo Davis MD [facility] UR[place]ke [place], [place] [address] (Wo rk) Scheduled Orders Name Type Priority Associated Diagnoses Order S chedule NM PET CT Skull Base Imaging Routine Metastatic urothelia l Expected: 09/21/2022, to Mid-thigh carcinoma Expires: 12/21/2022 Bone metastases MRI Hip wo Contrast Imaging Routine Metastatic urothelial Expected: 09/21/2022, Left (Generic) carcinoma Expires: 03/21/2023 Bone metastases documented as of this encounter Visit Diagnoses Diagnosis Metastatic urothelial carcinoma 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
--- OUTSIDE RECORDS SUMMARY | 2022-10-07 18:36 | XMS_ITS | Encounter Summary ---
:1955 Author Organization [facility] [place] [address] Care Team Providers Name Role Phone Derek Torres Primary Care Provider Encounter Details Date Type Department Care Team Description 09/20/2022 Travel Social History Tobacco Use Types Packs/Day Years [...] and Oncology 10/21/2022 Hospital Encounter Radiology Adilene Link[address] MEDICAL ONCOLOGY [place], [place] [phone] (Wo rk) 10/21/2022 Appointment Radiology Adilene Link[address] MEDICAL ONCOLOGY [place], [place] [phone] (Wo rk) 10/21/2022 Appointment Radiology Adilene Link[address] ONCOLOGY [place], [place] [phone] (Wo rk) 10/25/2022 Office Visit Hematology and Oncology Alberto Guy MD [facility] HEMATOLOGY/[place] [address] Adilene Link APRN [address] [place] [address] [place] [address] 11/09/2022 Office Visit Urology Bobo Davis MD [facility] UROLOGY [place], [place] [address] (Wo rk) documented as of this encounter Visit Diagnoses Not on filedocumented in this encounter Care Teams Special Service Representative Relationship Specialty Start Date End Date Derek Torres PA PCP - General Internal Medicine 06/07/21 [address] [place], [place] [address] documented as of this encounter
--- OUTSIDE RECORDS SUMMARY | 2022-10-07 18:37 | XMS_ITS | Encounter Summary ---
:1955 Author Organization [facility] [address] Care Team Providers Name Role Phone Derek Torres Primary Care Provider Reason for Visit Reason Comments Chemotherapy C3D15 enfortumab Treatment/Therapy Plan Authorization (Routine) - Authorized Specialty Diagnoses / Procedures Referred By Contact Refer red To Contact Diagnoses Urothelial carcinoma of kidney, right Malignant neoplasm of urinary bladder, unspecified site Neutropenia, drug-induced Metastatic urothelial carcinoma High risk medication use Alberto Bhatia MD [facility] Hem Onc Office Procedures TC PALONOSETRON HCL, 25MCG, INJECTION (ALOXI) TC ZOLEDRONIC ACID, 1 MG, INJECTION J2469 palonosetron (Aloxi) 0.25 MG J9177 enfortumab vedotin-ejfv (PADCEV) 125 mg J3489 ZOMETA 3 MG [facility] [address] [place] [address] HEMATOLOGY/[place] [phone] Fax: Referral ID Status Reason Start Date Expiration Date Visits V isits Requested Authorized [id number] Authorized 05/31/2022 05/30/2023 20 20 Encounter Details Date Type Department Care Team Description 04/19/2022 Infusion Hematology Oncology at [facility] tastatic urothelial carcinoma; [facility] High risk medication use; [address] [place] [address] Neutropenia, drug-induced; [place], [place] [address] Urothelial carcinoma of kidn ey, right; [phone] Malignant neopl asm of urinary bladder, unspecified [...] encounter Progress Notes Graciela Gay RN - 04/19/2022 11:00 AM EDT INFUSION THERAPY ADMINISTRATION NOTES DIAGNOSIS: Metastatic urothelial cancer CYCLE #: Cycle 3, Day 15 - Enfortumab REASON FOR VISIT: To receive chemotherapy. SUBJECTIVE: Nancy is tolerating the therapy with minimal side effects. She is in good spirits today. OBJECTIVE: Seen by provider. Ready to treat. LAB DATA: WBC - 7.80, H/H - 11.6/36.9, Plt Ct - 220, ANC - 5.65, Lytes: NA+ - 136, K+ - 4.2, BUN/Cr - 30/1.6, Calcium - 8.2, Glucose - 260. Labs reviewed by provider and considered within range to treat today. IV ACCESS: PIV with difficulty. Ice applied to puncture sites. Scheduled for port placement next week. Pre administration: Chemotherapy orders independently verified for drug name, route, and dosage per patient's height, weight and BSA by Graciela Gay, MORTEZA and Staff Pharmacist(s). REACTIONS (DESCRIPTION, TIME, INTERVENTION AND EFFECTIVENESS) none ASSESSMENT: Nancy was awake, alert and tolerated treatment well. PIV discontinued. Attempted IV sites on left arm evaluated and they were benign. PLAN: Return to clinic per plan. documented in this encounter Plan of Treatment Upcoming Encounters Date Type Specialty Care Team Description 10/21/2022 Appointment Hematology and Oncology 10/21/2022 Hospital Encounter Radiology Adilene Link APRN [address] [place] [address] DR MEDICAL ONCOLOGY [place], [place] [phone] (Wo rk) 10/21/2022 Appointment Radiology Adilene Link [address] MEDICAL ONCOLOGY [place], [place] [phone] (Wo rk) 10/21/2022 Appointment Radiology Adilene Link[address] MEDICAL ONCOLOGY [place], [place] [phone] (Wo rk) 10/25/2022 Office Visit Hematology and Oncology Alberto Guy MD [facility] DR HEMATOLOGY/[place] [address] [address] MEDICAL ONCOLOGY [place], [place] [phone] 11/09/2022 Office Visit Urology Bobo Davis MD [facility] DR UROLOGY [place], [place] [address] (Wo rk) documented as of [...] Dose Rate Site enfortumab vedotin-ejfv New Bag 04/19/2022 11:44 AM EDT 120 mg 124 mL/hr (PADCEV) 120 mg in sodium chloride 0.9% 62 mL chemo infusion 120 mg, Intravenous, ONCE, 1 dose, On Mon04/19/22 at 1215, Administer over 30 Minutes, Warning Vesicant/Irritant Medication Dose Ordered = 125 mg (1.25 mg/kg; weight capped at 100kg). Pharmacist rounded dose per procedure., This agent is restricted to outpatient use. Is this drug being given as an outpatient? Yes palonosetron (Aloxi) (0.05 mg/mL) injection Given 03/28 11:39 AM EDT 0.25 mg 0.25 mg 0.25 mg, Intravenous, ONCE, 1 dose, On Mon04/19/22 at 1115, Administer over 30 seconds. Administer prior to chemotherapy, Routine sodium chloride 0.9% infusion New Bag 04/19/2022 11:21 AM EDT 100 mL/hr 100 mL/hr 100 mL/hr, Intravenous, CONTINUOUS, Starting on 04/19/22 at 1115, Until Mon04/19/22 at 1805 documented in this encounter Care Teams Resident Medical Officer Relationship Specialty Start Date End Date Derek Torres PA PCP - General Internal Medicine 06/07/21 [address] [place] [address] documented as of this encounter
--- OUTSIDE RECORDS SUMMARY | 2022-10-07 18:37 | XMS_ITS | Encounter Summary ---
:1955 Author Organization [facility] [place] [address] Care Team Providers Name Role Phone Derek Torres Primary Care Provider Encounter Details Date Type Department Care Team Description 06/07/2022 Notes Only Hematology/Oncology at Julia Morris MSW [facility] OFFICE OF CARE [address] [place] [phone] Social History Tobacco Use Types Packs/Day Years Used Date Former Smoker Cigarettes 0.25 0 Quit: 06/2020 Smokeless Tobacco: Never Used Alcohol Use Standard Drinks/Week Comments Not Currently 0 (1 standard drink = 0.6 oz pure alcoho l) Sex Assigned at Date Recorded Not on file documented as of this encounter Progress Notes Julia Morris MSW - 06/07/2022 9:31 AM EDT Follow up with pt during her infusion visit/ Pt indicated she is managing day to day as best she can. She is quite tired much of the time. Her continues as her primary support. She indicated she does have her home care services in place and things are a bit better re this. Pt did not identify any new needs at this time. Offered support. Reminded pt of UROGYNAECOLOGIST availability and contact information. Will continue to follow. Brief assessment Supportive Counseling documented in this encounter Plan of Treatment Upcoming Encounters Date Type Specialty Care Team Description 10/21/2022 Appointment Hematology and Oncology 10/21/2022 Hospital Encounter Radiology Adilene Link[address] MEDICAL ONCOLOGY [place], [place] [address] (Wo rk) 10/21/2022 Appointment Radiology Adilene Link[address] MEDICAL ONCOLOGY [place], [place] [address] [phone] (Wo rk) 10/21/2022 Appointment Radiology Adilene Link[address] MEDICAL ONCOLOGY [place], [place] [address] [phone] (Wo rk) 10/25/2022 Office Visit Hematology and Oncology Alberto Guy MD [facility] HEMATOLOGY/[place] [address] MEDICAL ONCOLOGY [place], [place] [address] 11/09/2022 Office Visit Urology Bobo Davis MD [facility] UROLOGY [place], [place] [address] (Wo rk) documented as of this encounter Visit Diagnoses Not on filedocumented in this encounter Care Teams Complaint Inspector Relationship Specialty Start Date End Date Derek Torres PA PCP - General Internal Medicine 06/07/21 [address] [place], [place] [address] documented as of this encounter
--- OUTSIDE RECORDS SUMMARY | 2022-10-07 18:37 | XMS_ITS | Encounter Summary ---
:1955 Author Organization [facility] [place] [address] Care Team Providers Name Role Phone Derek Torres Primary Care Provider Reason for Visit Reason Comments Chemotherapy Cycle 3, Day 8 Enfortumab Treatment/Therapy Plan Authorization (Routine) - Authorized Specialty Diagnoses / Procedures Referred By Contact Refer red To Contact Diagnoses Urothelial carcinoma of kidney, right Malignant neoplasm of urinary bladder, unspecified site Neutropenia, drug-induced Metastatic urothelial carcinoma High risk medication use Alberto Bhatia MD [facility] Hem Onc Office Procedures TC PALONOSETRON HCL, 25MCG, INJECTION (ALOXI) TC ZOLEDRONIC ACID, 1 MG, INJECTION J2469 palonosetron (Aloxi) 0.25 MG J9177 enfortumab vedotin-ejfv (PADCEV) 125 mg J3489 ZOMETA [address] HEMATOLOGY/[place] [phone] Fax: Referral ID Status Reason Start Date Expiration Date Visits V isits Requested Authorized [id number] Authorized 05/31/2022 05/30/2023 20 20 Encounter Details Date Type Department Care Team Description 04/12/2022 Infusion Hematology Oncology at [facility] tastatic urothelial carcinoma; [facility] High risk medication use; [address] [place] [address] Neutropenia, drug-induced; [place], [place] [phone] Urothelial carcinoma of kidn ey, right; [phone] Malignant neopl asm of urinary bladder, unspecified site Social History Tobacco Use Types Packs/Day Years Used Date Former Smoker Cigarettes 0.25 0 Quit: 06/2020 Smokeless Tobacco: Never Used Alcohol Use Standard Drinks/Week Comments Not Currently 0 (1 standard drink = 0.6 oz pure alcoho l) Sex Assigned at Date Recorded Not on file documented as of this encounter Progress Notes Kenisha Huerta RN - 04/12/2022 11:00 AM EDT INFUSION THERAPY ADMINISTRATION NOTES DIAGNOSIS: Metastatic urothelial cancer CYCLE #: Cycle 3, Day 8 - Enfortumab REASON FOR VISIT: To receive chemotherapy. SUBJECTIVE: Nancy is tolerating the therapy with minimal side effects. She is in good spirits today. OBJECTIVE: Seen by provider. Ready to treat. LAB DATA: WBC - 10.66, H/H - 12/38, Plt Ct - 295, ANC - 7.47, Lytes: NA+ - 138, K+ - 4.8, BUN/Cr - 55/1.6, Calcium - 9.0, Glucose - 152. Labs reviewed by provider and considered within range to treat today. IV ACCESS: PIV with difficulty. Multiple failed attempts by 3 nurses. Port discussed with patient. Ice applied to puncture sites. Pre administration: Chemotherapy orders independently verified for drug name, route, and dosage per patient's height, weight and BSA by Kenisha Cardenas, MORTEZA and Staff Pharmacist(s). REACTIONS (DESCRIPTION, TIME, INTERVENTION AND EFFECTIVENESS) none ASSESSMENT: Nancy was awake, alert and tolerated treatment well. PIV discontinued. Attempted IV sites on left arm evaluated and they were benign. PLAN: Return to clinic in one week, 04/19/22. documented in this encounter Plan of Treatment Upcoming Encounters Date Type Specialty Care Team Description 10/21/2022 Appointment Hematology and Oncology 10/21/2022 Hospital Encounter Radiology Adilene Link SENIOR MECHANICAL DEVELOPMENT ENGINEER [address] [place] [address] [place] [address] (Wo rk) 10/21/2022 Appointment Radiology Adilene Link [address] MEDICAL ONCOLOGY [place], [place] [phone] (Wo rk) 10/21/2022 Appointment Radiology Adilene Link[address] MEDICAL ONCOLOGY [place], [place] [phone] (Wo rk) 10/25/2022 Office Visit Hematology and Oncology Alberto Guy MD [facility] HEMATOLOGY/[place] [address] MEDICAL ONCOLOGY [place], [place] [phone] 11/09/2022 Office Visit Urology Bobo Davis MD [facility] UROLOGY [place], [place] [address] (Wo rk) documented as of [...] Dose Rate Site enfortumab vedotin-ejfv New Bag 04/12/2022 12:42 PM EDT 120 mg 124 mL/hr (PADCEV) 120 mg in sodium chloride 0.9% 62 mL chemo infusion 120 mg, Intravenous, ONCE, 1 dose, On Mon04/12/22 at 1245, Administer over 30 Minutes, Dose Ordered = 125 mg (1.25 mg/kg). Pharmacist rounded dose per procedure. Warning Vesicant/Irritant Medication , This agent is restricted to outpatient use. Is this drug being given as an outpatient? Yes palonosetron (Aloxi) (0.05 mg/mL) injection Given 03/27 12:32 PM EDT 0.25 mg 0.25 mg 0.25 mg, Intravenous, ONCE, 1 dose, On Mon04/12/22 at 1145, Administer over 30 seconds. Administer prior to chemotherapy, Routine sodium chloride 0.9% infusion New Bag 04/12/2022 12:20 PM EDT 100 mL/hr 100 mL/hr 100 mL/hr, Intravenous, CONTINUOUS, Starting on Mon04/12/22 at 1145, Until Mon04/12/22 at 1746 documented in this encounter Care Teams Linux Programmer Relationship Specialty Start Date End Date Derek Torres PA PCP - General Internal Medicine 06/07/21 [address] [place] [address] documented as of this encounter
--- OUTSIDE RECORDS SUMMARY | 2022-10-07 18:37 | XMS_ITS | Encounter Summary ---
:1955 Author Organization [facility] [place] [address] Care Team Providers Name Role Phone Derek Torres Primary Care Provider Reason for Visit Reason Comments Chemotherapy Cycle 4, Day 1 Zometa/Enfort umab Treatment/Therapy Plan Authorization (Routine) - Authorized Specialty Diagnoses / Procedures Referred By Contact Refer red To Contact Diagnoses Urothelial carcinoma of kidney, right Malignant neoplasm of urinary bladder, unspecified site Neutropenia, drug-induced Metastatic urothelial carcinoma High risk medication use Alberto Bhatia MD [facility] Hem Onc Office Procedures TC PALONOSETRON HCL, 25MCG, INJECTION (ALOXI) TC ZOLEDRONIC ACID, 1 MG, INJECTION J2469 palonosetron (Aloxi) 0.25 MG J9177 enfortumab vedotin-ejfv (PADCEV) 125 mg [id number] ZOMETA 3 MG [facility] [address] [place] [address] HEMATOLOGY/[place] [phone] Fax: Referral ID Status Reason Start Date Expiration Date Visits V isits Requested Authorized [id number] Authorized 05/31/2022 05/30/2023 20 20 Encounter Details Date Type Department Care Team Description 05/03/2022 Infusion Hematology Oncology at [facility] tastatic urothelial carcinoma; [facility] High risk medication use; [address] [place] [address] Neutropenia, drug-induced; [place], [place] [address] Urothelial carcinoma of kidn ey, right; [phone] Malignant neopl asm of urinary bladder, unspecified site; Bone metastases Social History Tobacco Use Types Packs/Day Years Used Date Former Smoker Cigarettes 0.25 0 Quit: 06/2020 Smokeless Tobacco: Never Used Alcohol Use Standard Drinks/Week Comments Not Currently 0 (1 standard drink = 0.6 oz pure alcoho l) Sex Assigned at Date Recorded Not on file documented as of this encounter Progress Notes Kenisha Huerta RN - 05/03/2022 10:00 AM EDT INFUSION THERAPY ADMINISTRATION NOTES DIAGNOSIS: Metastatic urothelial cancer CYCLE #: Cycle 4, Day 1 - Enfortumab/Zometa REASON FOR VISIT: To receive chemotherapy. SUBJECTIVE: Nancy is tolerating the therapy with minimal side effects. She is in good spirits today. OBJECTIVE: Seen by provider. Ready to treat. LAB DATA: WBC - 5.42, H/H - 11.3/36.7, Plt Ct - 281, ANC - 2.65, Lytes: NA+ - 138, K+ - 4.3, BUN/Cr - 30/1.4, Calcium - 8.3, Glucose - 158. Labs reviewed by provider and considered within range to treat today. IV ACCESS: Port placed on 04/27/2022. Accessed today prior to treatment and de accessed with 20cc NS and 500unit heparin after infusion. Pre administration: Chemotherapy orders independently verified for drug name, route, and dosage per patient's height, weight and BSA by Kenisha Cardenas RN and Staff Pharmacist(s). REACTIONS (DESCRIPTION, TIME, INTERVENTION AND EFFECTIVENESS) none ASSESSMENT: Nancy was awake, alert and tolerated treatment well. PLAN: Return to clinic per plan. documented in this encounter Plan of Treatment Upcoming Encounters Date Type Specialty Care Team Description 10/21/2022 Appointment Hematology and Oncology 10/21/2022 Hospital Encounter Radiology Adilene Link APRN [address] [place] [address] [place] [address] (Wo rk) 10/21/2022 Appointment Radiology Nikolay, Adilene [address] MEDICAL ONCOLOGY [place], [place] [phone] (Wo rk) 10/21/2022 Appointment Radiology Adilene Link[address] MEDICAL ONCOLOGY [facility], [place] [phone] (Wo rk) 10/25/2022 Office Visit Hematology and Oncology Alberto Guy MD [facility] DR HEMATOLOGY/[place] [address] [address] MEDICAL ONCOLOGY [place], [place] [phone] 11/09/2022 Office Visit Urology Bobo Davis MD [facility] UROLOGY [place], [place] [address] (Wo rk) documented as of this encounter Visit Diagnoses Diagnosis Metastatic urothelial carcinoma 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 High risk medication use Encounter for long-term (current) use of other medications Neutropenia, drug-induced Drug induced neutropenia Urothelial carcinoma of kidney, right Malignant neoplasm of urinary bladder, u nspecified site Bone metastases Secondary malignant neoplasm of bone and bone marrow documented in this encounter Administered Medications Inactive Administered Medications - up to 3 most recent administrations Medication Order MAR Action Action Date Dose Rate Site calcium carbonate (Tums) chewable Given 05/03/2022 10:47 AM EDT 500 mg tablet 500 mg 500 mg, Oral, ONCE, 1 dose, On Mon05/03/22 at 1030, Routine enfortumab vedotin-ejfv (PADCEV) New Bag 05/03/2022 11:17 AM E DT 120 mg 124 mL/hr 120 mg in sodium chloride 0.9% 62 mL chemo infusion 120 mg, Intravenous, ONCE, 1 dose, On Mon05/03/22 at 1130, Administer over 30 Minutes, Dose Ordered = 125 mg (1.25 mg/kg). Pharmacist rounded dose per procedure. Warning Vesicant/Irritant Medication , This agent is restricted to outpatient use. Is this drug being given as an outpatient? Yes heparin (pf) (porcine) (100 units/mL) Given 05/03/2022 11:55 AM EDT 500 Units flush 5 mL syringe 500 Units 500 Units, Intravenous, ONCE PRN, Starting on Mon05/03/22 at 1011, Until Mon05/03/22 at 1522, Line Care, Refer to Intravenous (IV) Procedure: Accessing Implanted Vascular Access Devices (654) procedure and/or Intravenous (IV) Job Aid: Adult Flushing & Catheter Care (2950) job aid for additional information regarding guidelines and administration., Routine palonosetron (Aloxi) (0.05 mg/mL) injection Given 05/2022 10:47 AM EDT 0.25 mg 0.25 mg 0.25 mg, Intravenous, ONCE, 1 dose, On Mon05/03/22 at 1030, Administer over 30 seconds. Administer prior to chemotherapy, Routine sodium chloride 0.9 % (flush) (BD PosiFlush Given 05/2022 11:55 AM EDT 20 mLs Normal Saline 0.9) flush 5-20 mL 5-20 mL, Intravenous, EVERY 1 MIN PRN, Starting on Mon05/03/22 at 1011, Until Mon05/03/22 at 1522, Line Care, Flush pertains to all indwelling lines. Flush per protocol found in the job aid using the link provided on this medication record. Refer to Intravenous (IV) Job Aid: Adult Flushing & Catheter Care (5128) job aid for additional information regarding guidelines and administration., Routine sodium chloride 0.9% infusion New Bag 05/03/2022 10:30 AM EDT 100 mL/hr 100 mL/hr 100 mL/hr, Intravenous, CONTINUOUS, Starting on Mon05/03/22 at 1030, Until Mon05/03/22 at 1522 zoledronic acid (Zometa) 3 mg in New Bag 05/03/2022 10:52 AM EDT 3 mg 415 mL/hr sodium chloride 0.9% 103.75 mL infusion 3 mg, Intravenous, ONCE, 1 dose, On Mon05/03/22 at 1030, Administer over 15 Minutes, Do not administer [...] metastases documented in this encounter Care Teams Electron Beam Operator Relationship Specialty Start Date End Date Derek Torres PA PCP - General Internal Medicine 06/07/21 [address] [place] [address] documented as of this encounter
--- OUTSIDE RECORDS SUMMARY | 2022-10-07 18:37 | XMS_ITS | Encounter Summary ---
:1955 Author Organization [facility] [place] [address] Care Team Providers Name Role Phone Derek Torres Primary Care Provider Reason for Visit Reason Comments Chemotherapy Cycle 5, Day 8 Enfortumab Treatment/Therapy Plan Authorization (Routine) - Authorized Specialty Diagnoses / Procedures Referred By Contact Refer red To Contact Diagnoses Urothelial carcinoma of kidney, right Malignant neoplasm of urinary bladder, unspecified site Neutropenia, drug-induced Metastatic urothelial carcinoma High risk medication use Alberto Bhatia MD [facility] Hem Onc Office Procedures TC PALONOSETRON HCL, 25MCG, INJECTION (ALOXI) TC ZOLEDRONIC ACID, 1 MG, INJECTION J2469 palonosetron (Aloxi) 0.25 MG J9177 enfortumab vedotin-ejfv (PADCEV) 125 mg [id number] ZOMETA [address] HEMATOLOGY/[place] [phone] Fax: Referral ID Status Reason Start Date Expiration Date Visits V isits Requested Authorized [id number] Authorized 05/31/2022 05/30/2023 20 20 Encounter Details Date Type Department Care Team Description 06/07/2022 Infusion Hematology Oncology at [facility] tastatic urothelial carcinoma; [facility] High risk medication use; [address] [place] [address] Neutropenia, drug-induced; [place], [place] [phone] Urothelial carcinoma of kidn ey, right; [phone] Malignant neopl asm of urinary bladder, unspecified [...] Sign Reading Time Taken Comments Blood Pressure 145/61 06/07/2022 8:28 AM EDT Pulse 73 06/07/2022 8:28 AM EDT Temperature 35.4 ??C (95.7 ??F) 06/07/2022 8:28 AM EDT Respiratory Rate 18 06/07/2022 8:28 AM EDT Oxygen Saturation 96% 06/07/2022 8:28 AM EDT Inhaled Oxygen Concentration - - Weight 100.7 kg (222 lb) 06/07/2022 8:28 AM EDT Height 161.2 cm (5' 3.47) 06/07/2022 8:28 AM EDT Body Mass Index 38.75 06/07/2022 8:28 AM EDT documented in this encounter Progress Notes Kenisha Huerta RN - 06/07/2022 8:30 AM EDT INFUSION THERAPY ADMINISTRATION NOTES DIAGNOSIS: Metastatic urothelial cancer CYCLE #: Cycle 5, Day 8 - Enfortumab REASON FOR VISIT: To receive chemotherapy. SUBJECTIVE: Nancy offers no complaints. States her energy continues to be low and feels very tired. Has been sleeping quite a bit. She has PT/OT, home nurse, and GARMENT TURNER coming to her home to help her during the week. Once or twice a week GARMENT TURNER helps with shower. Is managing to do all other ADLs but very slowly and it wears me out. OBJECTIVE: LAB DATA: WBC 9.80, H/H 12.0/38.5, Plt Ct 264, ANC 7.04, Lytes WNL, BUN/Cr 31/1.5, IV ACCESS: Mediport accessed, blood return present [...] tolerated treatment well. PLAN: Return to clinic in one week. documented in this encounter Plan of Treatment Upcoming Encounters Date Type Specialty Care Team Description 10/21/2022 Appointment Hematology and Oncology 10/21/2022 Hospital Encounter Radiology Adilene Link[address] ONCOLOGY [place], [place] [phone] (Wo rk) 10/21/2022 Appointment Radiology Adilene Link [address] ONCOLOGY [place], [place] [phone] (Wo rk) 10/21/2022 Appointment Radiology Adilene Link[address] ONCOLOGY [place], [place] [address] (Wo rk) 10/25/2022 Office Visit Hematology and Oncology Alberto Guy MD [facility] DR HEMATOLOGY/[place] [address] Adilene Link [address] MEDICAL ONCOLOGY [place], [place] [phone] 11/09/2022 Office Visit Urology Bobo Davis MD [facility] DR UROLOGY [place], [place] [address] (Wo rk) documented as of [...] Dose Rate Site enfortumab vedotin-ejfv New Bag 06/07/2022 9:29 AM EDT 120 mg 124 mL/hr (PADCEV) 120 mg in sodium chloride 0.9% 62 mL chemo infusion 120 mg, Intravenous, ONCE, 1 dose, On Mon06/07/22 at 0945, Administer over 30 Minutes, Dose Ordered = 125 mg (1.25 mg/kg). Pharmacist rounded dose per procedure. Warning Vesicant/Irritant Medication , This agent is restricted to outpatient use. Is this drug being given as an outpatient? Yes palonosetron (Aloxi) (0.05 mg/mL) injection Given 05/27 8:50 AM EDT 0.25 mg 0.25 mg 0.25 mg, Intravenous, ONCE, 1 dose, On Mon06/07/22 at 0845, Administer over 30 seconds. Administer prior to chemotherapy, Routine sodium chloride 0.9% infusion New Bag 06/07/2022 8:30 AM EDT 100 mL/hr 100 mL/hr 100 mL/hr, Intravenous, CONTINUOUS, Starting on Mon06/07/22 at 0845, Until Mon06/07/22 at 1215 documented in this encounter Care Teams Net Developer Software Engineer C Relationship Specialty Start Date End Date Derek Torres PA PCP - General Internal Medicine 06/07/21 [address] [place] [address] documented as of this encounter
--- OUTSIDE RECORDS SUMMARY | 2022-10-07 18:37 | XMS_ITS | Encounter Summary ---
:1955 Author Organization [facility] [place] [address] Care Team Providers Name Role Phone Derek Torres Primary Care Provider Reason for Visit Reason Comments Chemotherapy Cycle 4, Day 15 Enfortumab Treatment/Therapy Plan Authorization (Routine) - Authorized Specialty Diagnoses / Procedures Referred By Contact Refer red To Contact Diagnoses Urothelial carcinoma of kidney, right Malignant neoplasm of urinary bladder, unspecified site Neutropenia, drug-induced Metastatic urothelial carcinoma High risk medication use Alberto Bhatia MD [facility] Hem Onc Office Procedures TC PALONOSETRON HCL, 25MCG, INJECTION (ALOXI) TC ZOLEDRONIC ACID, 1 MG, INJECTION J2469 palonosetron (Aloxi) 0.25 MG J9177 enfortumab vedotin-ejfv (PADCEV) 125 mg J3489 ZOMETA [address] HEMATOLOGY/[place] [phone] Fax: Referral ID Status Reason Start Date Expiration Date Visits V isits Requested Authorized [id number] Authorized 05/31/2022 05/30/2023 20 20 Encounter Details Date Type Department Care Team Description 05/17/2022 Infusion Hematology Oncology at [facility] tastatic urothelial carcinoma; [facility] High risk medication use; [address] [place] [address] Neutropenia, drug-induced; [place], [place] [phone] Urothelial carcinoma of kidn ey, right; [phone] Malignant neopl asm of urinary bladder, unspecified [...] encounter Progress Notes Kenisha Huerta RN - 05/17/2022 10:00 AM EDT INFUSION THERAPY ADMINISTRATION NOTES DIAGNOSIS: Metastatic urothelial cancer CYCLE #: Cycle 4, Day 15 - Enfortumab REASON FOR VISIT: To receive chemotherapy. SUBJECTIVE: Nancy reports no complaints today. OBJECTIVE: Met with provider prior to infusion and found adequate to treat. LAB DATA: WBC - 9.92, H/H - 12.3/37.9, Plt Ct - 234, ANC - 7.27, Lytes: NA+ - 135, K+ - 4.3, BUN/Cr - 39/1.7, Calcium - 8.9, Glucose - 187. IV ACCESS: Accessed today prior to treatment. Port de accessed with 20cc NS and 500unit [...] Oncology 10/21/2022 Hospital Encounter Radiology Adilene Link [address] MEDICAL ONCOLOGY [place], [place] [phone] (Kwadwo morataya) 10/21/2022 Appointment Radiology Adileen Link [address] MEDICAL ONCOLOGY [place], [place] [phone] (Kwadwo morataya) 10/21/2022 Appointment Radiology Adilene Link[address] MEDICAL ONCOLOGY [place], [place] [phone] (Wo rk) 10/25/2022 Office Visit Hematology and Oncology Alberto Guy MD [facility] DR HEMATOLOGY/[place] [address] [address] [place] [address] 11/09/2022 Office Visit Urology Bobo Davis MD [facility] DR UROLOGY [place], [place] [address] (Wo rk) documented as of [...] Dose Rate Site enfortumab vedotin-ejfv New Bag 05/17/2022 11:01 AM EDT 120 mg 124 mL/hr (PADCEV) 120 mg in sodium chloride 0.9% 62 mL chemo infusion 120 mg, Intravenous, ONCE, 1 dose, On Mon05/17/22 at 1145, Administer over 30 Minutes, Warning Vesicant/Irritant Medication Dose Ordered = 125 mg (1.25 mg/kg). Pharmacist rounded dose per procedure., This agent is restricted to outpatient use. Is this drug being given as an outpatient? Yes heparin (pf) (porcine) (100 units/mL) Given 05/17/2022 11:36 AM EDT 500 Units flush 5 mL syringe 500 Units 500 Units, Intravenous, ONCE PRN, Starting on e 05/17/22 at 1019, Until Mon05/17/22 at 1557, Line Care, Refer to Intravenous (IV) Procedure: Accessing Implanted Vascular Access Devices (654) procedure and/or Intravenous (IV) Job Aid: Adult Flushing & Catheter Care (6384) job aid for additional information regarding guidelines and administration., Routine palonosetron (Aloxi) (0.05 mg/mL) injection Given 04/28 10:35 AM EDT 0.25 mg 0.25 mg 0.25 mg, Intravenous, ONCE, 1 dose, On 05/17/22 at 1045, Administer over 30 seconds. Administer prior to chemotherapy, Routine sodium chloride 0.9 % (flush) (BD PosiFlush Given 04/28 11:36 AM EDT 20 mLs Normal Saline 0.9) flush 5-20 mL 5-20 mL, Intravenous, EVERY 1 MIN PRN, Starting on e 05/17/22 at 1019, Until Mon05/17/22 at 1557, Line Care, Flush pertains to all indwelling lines. Flush per protocol found in the job aid using the link provided on this medication record. Refer to Intravenous (IV) Job Aid: Adult Flushing & Catheter Care (6671) job aid for additional information regarding guidelines and administration., Routine sodium chloride 0.9% infusion New Bag 05/17/2022 10:35 AM EDT 100 mL/hr 100 mL/hr 100 mL/hr, Intravenous, CONTINUOUS, Starting on e 05/17/22 at 1045, Until Mon05/17/22 at 1557 documented in this encounter Care Teams Tents Assembler Relationship Specialty Start Date End Date Derek Torres PA PCP - General Internal Medicine 06/07/21 [address] [place] [address] documented as of this encounter
--- OUTSIDE RECORDS SUMMARY | 2022-10-07 18:37 | XMS_ITS | Encounter Summary ---
:1955 Author Organization [facility] [place] [address] Care Team Providers Name Role Phone Derek Torres Primary Care Provider Encounter Details Date Type Department Care Team Description 06/06[facility]2022 [facility] [address] [place] [phone] Social History Tobacco Use Types Packs/Day Years Used Date Former Smoker Cigarettes 0.25 0 Quit: 06/2020 Smokeless Tobacco: Never Used Alcohol Use Standard Drinks/Week Comments Not Currently 0 (1 standard drink = 0.6 oz pure alcoho l) Sex Assigned at Date Recorded Not on file documented as of this encounter Miscellaneous Notes Telephone Encounter - Hattie Anders RN - 06/06/2022 4:14 PM EDT RN phone call to patient to check in. She was started on Keflex by PCP for UTI (per Vilma Dennis RN note on 06/02) - to take BID for 10 days. Patient states that she is overall feeling better - denies symptoms of UTI including burning with urination. Denies fevers, chills. Reports fatigue but that is to be expected. States that [facility] was there today and had no concerns. Dr. Bhatia notified of how she is feeling and on antibiotics. Ok to treat C5D8 Enfortumab as longas she remains free of symptoms of active infection and labs meet parameters. Will have labs in AM prior to infusion appt. documented in this encounter Plan of Treatment Upcoming Encounters Date Type Specialty Care Team Description 10/21/2022 Appointment Hematology and Oncology 10/21/2022 Hospital Encounter Radiology Adilene Link, [address] [place] [address] (Wo rk) 10/21/2022 Appointment Radiology Adilene Link[address] [place] [address] (Wo rk) 10/21/2022 Appointment Radiology Adilene Link[address] [place] [address] (Wo rk) 10/25/2022 Office Visit Hematology and Oncology Alberto Guy MD [facility] [address] HEMATOLOGY/[place] [address] [address] MEDICAL ONCOLOGY [place], [place] [address] 11/09/2022 Office Visit Urology Bobo Davis MD [facility] UROLOGY [place], [place] [address] (Wo rk) documented as of this encounter Visit Diagnoses Not on filedocumented in this encounter Care Teams Oil Well Cable Tool Operator Relationship Specialty Start Date End Date Derek Torres PA PCP - General Internal Medicine 06/07/21 [address] [place], [place] [address] documented as of this encounter
--- OUTSIDE RECORDS SUMMARY | 2022-10-07 18:37 | XMS_ITS | Encounter Summary ---
:1955 Author Organization [facility] [place] [address] Care Team Providers Name Role Phone Derek Torres Primary Care Provider Reason for Visit Diagnostic Test (Routine) - Closed Specialty Diagnoses / Procedures Referred By Contact Refer red To Contact Radiology Diagnoses Metastatic urothelial carcinoma Alberto Bhatia MD [facility] Rad Nuclear Med Procedures NM PET CT Skull Base to Mid-thigh [facility] HEMATOLOGY/[place] [address] [place] [address] Referral ID Status Reason Start Date Expiration Date Visits V isits Requested Authorized [id number] Closed Specialty 02/07/2022 08/10/2023 1 1 Service Requested Encounter Details Date Type Department Care Team Description 03/11/2022 Hospital Encounter Nuclear Medicine at Mike Bhatia Mary Hitchcock MD [facility] [place] [address] HEMATOLOGY/ONCOLOGY [phone] [place], [place] [address] (Wo rk) Social History Tobacco Use Types Packs/Day Years Used Date Former Smoker Cigarettes 0.25 0 Quit: 06/2020 Smokeless Tobacco: Never Used Alcohol Use Standard Drinks/Week Comments Not Currently 0 (1 standard drink = 0.6 oz pure alcoho l) Sex Assigned at Date Recorded Not on file documented as of this encounter Medications at Time of Discharge Medication Sig Dispensed Refills Start Date End Date hydrocortisone 2.5 % Apply topically 2 0 Cream times daily. homos/merad/octinox/oc Apply topically. 0 abena/zinc (CERAVE AM TOP) nystatin-triamcinolone Apply topically 2 60 g 3 2021 (MYCOLOG II) times daily. Apply CreamIndications: topically Twice daily. Metastatic urothelial carcinoma, Drug-induced skin rash senna (Senokot) 8.6 mg Take 2 tablets by 120 tablet 11 2021 TabletIndications: mouth 2 times daily. Metastatic urothelial carcinoma apixaban (Eliquis) 5 Take 5 mg by mouth 2 0 mg Tablet times daily. losartan (COZAAR) 100 Take 25 mg by mouth 0 08/23 mg Tablet daily. acetaminophen Take 3 tablets by 0 06/23/2021 (Tylenol) 325 mg mouth every 6 hours as Tablet needed for Pain. metoprolol tartrate Take 0.5 tablets by 0 021 (Lopressor) 25 mg mouth 2 times daily. Tablet polyethylene glycoL Take 17 g by mouth 0 06/23/20 21 (Miralax) 17 gram daily as needed. Powder in Packet humaLOG KwikPen 100 INJECT SUBCUTANEOUSLY 0 04/03 unit/mL Insulin Pen PER SLIDING SCALE THREE TIMES A DAY BEFORE MEALS 101TO 150 2 UNITS 151 TO 200 4 UNITS 201 TO 250 6 UNITS 251 TO 3 nystatin (MYCOSTATIN) APPLY 1 GRAM TOPICALLY 0 Powder TWO TIMES A DAY NEEDED FOR 30 DAYS Jeanne Pen Needle 32 0 02/18/2021 gauge x 5/32 Needle blood sugar diagnostic 1 strip by NOT 0 strips Strip APPLICABLE route Three times a day. cholecalciferol, Take 1,000 Units by 0 Vitamin D3, (Vitamin mouth Daily. D3) 1,000 unit Tablet insulin degludec Inject 42 Units 0 (Insulin Tresiba subcutaneously daily. FlexTouch U-100) 100 unit/mL (3 mL) Insulin Pen ondansetron (Zofran) 8 Take 8 mg by mouth 0 mg Tablet every 8 hours as needed for Nausea. HYDROmorphone TAKE ONE TABLET BY 0 01/14/2022 (Dilaudid) 4 mg Tablet MOUTH EVERY 6 HOURS (REPLACING HYDROCODONE) Lokelma 5 gram Powder TAKE ONE PACKET BY 0 202104/12/2022 in Packet MOUTH EVERY DAY DIRECTED FOR 2 DAYS losartan (Cozaar) 50 Take 50 mg by mouth 0 202103/22/2022 mg Tablet daily. HYDROmorphone TAKE 1 TO 2 TABLETS BY 0 01/17/2022 03/15/2022 (Dilaudid) 2 mg Tablet MOUTH EVERY 6 HOURS NEEDED FOR PAIN fluconazole (Diflucan) Take 1 tablet by mouth 7 tablet 0 0 01/11/2022 03/15/2022 100 mg daily. TabletIndications: High risk medication use, Metastatic urothelial carcinoma calcium-vitamin D 500 Take 1 tablet by mouth 0 03/15/2022 mg-5 mcg (200 unit) 2 times daily (with Tablet meals). LORazepam (Ativan) 0.5 Take 1 tablet by mouth 20 tablet 0 1 01/19/2021 03/15/2022 mg Tablet every 8 hours as needed for Anxiety. And muscle spasm HYDROcodone-acetaminop TAKE ONE TABLET BY 0 06/2803/15/2022 hen ([place]) 5-325 mg MOUTH THREE TIMES A Tablet DAY NEEDED FOR PAIN sodium phosphates Place 1 enema rectally 0 202003/22/2022 (FLEET) Enema once as needed. furosemide (Lasix) 20 Take 20 mg by mouth 2 0 08/09/2022 mg Tablet times daily. documented as of this encounter Plan of Treatment Upcoming Encounters Date Type Specialty Care Team Description 10/21/2022 Appointment Hematology and Oncology 10/21/2022 Hospital Encounter Radiology Adilene Link[address] MEDICAL ONCOLOGY [place], [place] [phone] (Kwadwo morataya) 10/21/2022 Appointment Radiology Adilene Link[address] [address] (Kwadwo morataya) 10/21/2022 Appointment Radiology Adilene Link[address] [address] (Kwadwo morataya) 10/25/2022 Office Visit Hematology and Oncology Alberto Guy MD [facility] DR HEMATOLOGY/[place] [address] Adilene Link, [address] [place] [address] 11/09/2022 Office Visit Urology Bobo Davis MD [facility] DR UROLOGY [place], [place] [address] (Wo rk) documented as of this encounter Procedures Procedure Name Priority Date/Time Associated Diagnosis Comme nts NM PET CT SKULL Routine 03/11/2022 2:39 PM Metastatic Result s for this BASE TO MID-THIGH EDT urothelial carcinoma pr ocedure are in ([facility]) the results section. POCT GLUCOSE Routine 03/11/2022 1:06 PM Results f or this EDT procedure are i n the results section. documented in this encounter Results POCT Glucose (03/11/2022 1:06 PM EDT) P athologist Signature POC Glucose 66 65 - 199 [facility] Comment: Supplemental ranges: <140 mg/dL before meals <180 mg/dL all other times of the day Specimen Anatomical Collection Method Collection Time Receive d Time (Source) Location / / Volume Laterality Blood 03/11/2022 1:06 PM 2 1:06 EDT PM EDT Alberto Bhatia MD POINT OF CARE TEST ORDERABLE S Performing Organization Address City/State/[place] [address] documented in this encounter Visit Diagnoses Not on filedocumented in this encounter Care Teams Lot Technician Relationship Specialty Start Date End Date Derek Torres PA PCP - General Internal Medicine 06/07/21 Mahnaz [address]LSON [address] [place] [address] documented as of this encounter
--- OUTSIDE RECORDS SUMMARY | 2022-10-07 18:37 | XMS_ITS | Encounter Summary ---
:1955 Author Organization [facility] Address [facility] [place] [address] Care Team Providers Name Role Phone Derek Torres Primary Care Provider Encounter Details Date Type Department Care Team Description 03/30/2022 Refill Hematology/Oncology at Rosemarie Link APRN Metastatic urothelial carcinoma; [address] High risk medication use [address] [place] [address] [place] [id number] (Wo rk) Social History Tobacco Use Types [...] Oncology 10/21/2022 Hospital Encounter Radiology Adilene Link [address] MEDICAL ONCOLOGY [place], [place] [phone] (Wo rk) 10/21/2022 Appointment Radiology Adilene Link [address] MEDICAL ONCOLOGY [place], [place] [phone] (Wo rk) 10/21/2022 Appointment Radiology Adilene Link [address] MEDICAL ONCOLOGY [place], [place] [address] (Wo rk) 10/25/2022 Office Visit Hematology and Oncology Alberto Guy MD [facility] DR [place]EMATOLOGY/[place] [address] [address] MEDICAL ONCOLOGY [place], [place] [phone] 11/09/2022 Office Visit Urology Bobo Davis MD [facility] UROLOGY [place], [place] [address] (Wo rk) documented as of this encounter Visit Diagnoses Diagnosis Metastatic urothelial carcinoma 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
--- OUTSIDE RECORDS SUMMARY | 2022-10-07 18:37 | XMS_ITS | Encounter Summary ---
:1955 Author Organization [facility] [place] [address] Care Team Providers Name Role Phone Derek Torres Primary Care Provider Reason for Visit Reason Onset Date Comments Other 03/30/2022 Rash and burning in throat Encounter Details Date Type Department Care Team Description 03/30/2022 Telephone Hematology/Oncology at Barb Dennis RN Other (Rash and burning [place] in throat) [address] [place] [phone] Social History Tobacco Use Types Packs/Day Years Used Date Former Smoker Cigarettes 0.25 0 Quit: 06/2020 Smokeless Tobacco: Never Used Alcohol Use Standard Drinks/Week Comments Not Currently 0 (1 standard drink = 0.6 oz pure alcoho l) Sex Assigned at Date Recorded Not on file documented as of this encounter Miscellaneous Notes Telephone Encounter - Barb Dennis RN - 03/30/2022 3:56 PM EDT Pt calls and states she has developed red rash on inside of thighs, stomach, inside of arms behind knees, She has been using hydrocortisone 1/5 since Monday per PCP with little effect. She also has burning in throat and down esophagus. She has no white patches inside of mouth. She has used sucralfate tabs in past with relief of this. Reviewed with rocco link NP who ordered sucralfate and said she can use benadryl 25 mg every 6 hours prn for rash and itching pt agrees with plan. She will call with any other questions or concerns. documented in this encounter Plan of Treatment Upcoming Encounters Date Type Specialty Care Team Description 10/21/2022 Appointment Hematology and Oncology 10/21/2022 Hospital Encounter Radiology Rocco Link[address] [place] [address] (Wo rk) 10/21/2022 Appointment Radiology Rocco Link[address] [place] [address] (Wo rk) 10/21/2022 Appointment Radiology Rocco Link[address] [place] [address] (Wo rk) 10/25/2022 Office Visit Hematology and Oncology Alberto Guy MD [facility] DR HEMATOLOGY/[place] [address] [address] MEDICAL ONCOLOGY [place], [place] [address] 11/09/2022 Office Visit Urology Bobo Davis MD [facility] DR UROLOGY [place], [place] [address] (Wo rk) documented as of this encounter Visit Diagnoses Not on filedocumented in this encounter Care Teams Electromechanical Assembler Relationship Specialty Start Date End Date Derek Torres PA PCP - General Internal Medicine 06/07/21 Mahnaz [address]LSON [address] [place], [place] [address] documented as of this encounter
--- OUTSIDE RECORDS SUMMARY | 2022-10-07 18:37 | XMS_ITS | Encounter Summary ---
:1955 Author Organization [facility] [address] Care Team Providers Name Role Phone Derek Torres Primary Care Provider Reason for Visit Reason Comments Chemotherapy Cycle 2, Day 15 - Enfortumab Treatment/Therapy Plan Authorization (Routine) - Authorized Specialty Diagnoses / Procedures Referred By Contact Refer red To Contact Diagnoses Urothelial carcinoma of kidney, right Malignant neoplasm of urinary bladder, unspecified site Neutropenia, drug-induced Metastatic urothelial carcinoma High risk medication use Alberto Bhatia MD [facility] Hem Onc Office Procedures TC PALONOSETRON HCL, 25MCG, INJECTION (ALOXI) TC ZOLEDRONIC ACID, 1 MG, INJECTION J2469 palonosetron (Aloxi) 0.25 MG J9177 enfortumab vedotin-ejfv (PADCEV) 125 mg J3489 ZOMETA [address] HEMATOLOGY/[place] [phone] Fax: Referral ID Status Reason Start Date Expiration Date Visits V isits Requested Authorized [id number] Authorized 05/31/2022 05/30/2023 20 20 Encounter Details Date Type Department Care Team Description 03/22/2022 Infusion Hematology Oncology at [facility] tastatic urothelial carcinoma; [facility] High risk medication use; [address] [place] [address] Neutropenia, drug-induced; [place], [place] [phone] Urothelial carcinoma of kidn ey, right; [phone] Malignant neopl asm of urinary bladder, unspecified [...] encounter Progress Notes Brittny Rondon RN - 03/22/2022 9:00 AM EDT INFUSION THERAPY ADMINISTRATION NOTES DIAGNOSIS: Metastatic urothelial cancer CYCLE #: Cycle 2, Day 15 - Enfortumab REASON FOR VISIT: To receive chemotherapy. SUBJECTIVE: Nancy is tolerating the therapy with minimal side effects. She is in good spirits today. OBJECTIVE: Seen by provider. Ready to treat. LAB DATA: WBC - 8.37, H/H - 11.5/37.1, Plt Ct - 253, ANC - 5.95, Lytes: NA+ - 134, K+ - 5.3, BUN/Cr - 57/1.6, Calcium - 8.4, Glucose - 180. Labs reviewed by provider and considered within range to treat today. IV ACCESS: PIV Pre administration: Chemotherapy orders independently verified for drug name, route, and dosage per patient's height, weight and BSA by Brittny Rondon RN and Staff Pharmacist(s). REACTIONS (DESCRIPTION, TIME, INTERVENTION AND EFFECTIVENESS) none ASSESSMENT: Nancy was awake, alert and tolerated treatment well. PIV discontinued. PLAN: Return to clinic in two weeks, 04/05/22. documented in this encounter Plan of Treatment Upcoming Encounters Date Type Specialty Care Team Description 10/21/2022 Appointment Hematology and Oncology 10/21/2022 Hospital Encounter Radiology Adilene Link [address] MEDICAL ONCOLOGY [place], [place] [phone] (Kwadwo morataya) 10/21/2022 Appointment Radiology Adilene Link [address] MEDICAL ONCOLOGY [place], [place] [phone] (Kwadwo morataya) 10/21/2022 Appointment Radiology Adilene Link[address] MEDICAL ONCOLOGY [place], [place] [phone] (Wo rk) 10/25/2022 Office Visit Hematology and Oncology Alberto Guy MD [facility] DR [place]EMATOLOGY/[place] [address] [address] [place] [address] 11/09/2022 Office Visit Urology Bobo Davis MD [facility] UROLOGY [place], [place] [address] (Wo rk) documented as of [...] Dose Rate Site enfortumab vedotin-ejfv New Bag 03/22/2022 9:30 AM EDT 120 mg 124 mL/hr (PADCEV) 120 mg in sodium chloride 0.9% 62 mL chemo infusion 120 mg, Intravenous, ONCE, 1 dose, On Mon03/22/22 at 1015, Administer over 30 Minutes, Dose Ordered = 125 mg (1.25 mg/kg). Pharmacist rounded dose per procedure. Warning Vesicant/Irritant Medication , This agent is restricted to outpatient use. Is this drug being given as an outpatient? Yes palonosetron (Aloxi) (0.05 mg/mL) injection Given 02/26 9:11 AM EDT 0.25 mg 0.25 mg 0.25 mg, Intravenous, ONCE, 1 dose, On Mon03/22/22 at 0915, Administer over 30 seconds. Administer prior to chemotherapy, Routine sodium chloride 0.9% infusion New Bag 03/22/2022 9:00 AM EDT 100 mL/hr 100 mL/hr 100 mL/hr, Intravenous, CONTINUOUS, Starting on Mon03/22/22 at 0915, Until Mon03/22/22 at 1511 documented in this encounter Care Teams Tube Rebuilder Relationship Specialty Start Date End Date Derek Torres PA PCP - General Internal Medicine 06/07/21 Mahnaz CARLSON [address] [place] [address] documented as of this encounter
--- OUTSIDE RECORDS SUMMARY | 2022-10-07 18:37 | XMS_ITS | Encounter Summary ---
:1955 [place] [address] Care Team Providers Name Role Phone Derek Torres Primary Care Provider Encounter Details Date Type Department Care Team Description 2022 Orders Only Radiology at [facility] Meliton Tay PA [facility] [place] [address] DIAGNOSTIC RADIOLOGY [phone] [place], [place] [address] (Wo rk) Social History Tobacco Use Types Packs/Day Years Used Date Former Smoker Cigarettes 0.25 0 Quit: 06/2020 Smokeless Tobacco: Never Used Alcohol Use Standard Drinks/Week Comments Not Currently 0 (1 standard drink = 0.6 oz pure alcoho l) Sex Assigned at Date Recorded Not on file documented as of this encounter H&P Notes Meliton Tay PA - 2022 4:09 PM EDT Images from the original note were not included. RADIOLOGY FOCUSED H&P and PRE-PROCEDURE NOTE: Referring Physician: No ref. provider found PCP: DELORES Zaman Procedure Indication: metastatic urothelial carcinoma, need for durable venous access for chemotherapy Presenting Diagnosis/ Complaint: Nancy Pichardo is a 67 y.o. female with history of urothelial carcinoma presenting to Interventional Radiology for mediport placement for improved access on chemotherapy. The patient has additional PMh of DMII, HL, CKD, and DVT (eliquis) Past Medical/Surgical History Patient Active Problem List Diagnosis Code ??? [...] medication use Z79.899 ??? Bone metastases C79.51 Past Medical History: Diagnosis Date ??? Anemia ??? Antiplatelet or antithrombotic long-term use eliquis ??? Cancer ??? CHF (congestive heart failure) r/t chemo ??? Chronic pain all over inflammation and arthritis, and neuropathy in toes and feet ??? Diabetes ??? Gastroesophageal reflux mostly after chemo ??? High blood pressure treated with medication ??? Seizure as a toddler ??? Status post chemotherapy ??? Transfusion history end of april 2021 ??? Vertigo uses walker, has peripheral neuropathy Past Surgical History: Procedure Laterality Date ??? CREATED BY INTERFACE c section Procedure Date: 1979 ??? CREATED BY INTERFACE Periorbital rejuvenation/Blepharoplasty Procedure Date: 2007 ??? CREATED BY INTERFACE rectal fissure correction Procedure Date: 1979 ??? CREATED BY INTERFACE Three breast surgeries bilaterally & drainage of breast abscess Procedure Date: Unknown ??? CREATED BY INTERFACE Tonsillectomy as a child Procedure Date: Unknown ??? CT GUIDED BIOPSY BONE(SPINE/SKULL) 11/09/2021 CT Guided Biopsy Bone (Spine/Skull) 11/09/2021 [facility] RAD CAT SCAN ??? PRO NEPHRECTOMY, W/PART. URETECTOMY Right 06/16/2021 @LAPAROSCOPY TOTAL NEPHROURETERECTOMY, ROBOTICS ASSIST (WRVU 25.36) performed by Bobo Davis MDat [facility] MAIN OR Medications: Current Outpatient Medications: ??? cephALEXin (Keflex) 250 mg Capsule, Take 250 mg by mouth 2 times daily., Disp: , Rfl: ??? sucralfate (Carafate) 1 gram Tablet, Take 1 tablet by mouth 4 times daily., Disp: 120 tablet, Rfl: 3 ??? diphenhydrAMINE (Benadryl) 25 mg Capsule, Take 25 mg by mouth every 6 hours as needed for Itching., Disp: , Rfl: ??? HYDROmorphone (Dilaudid) 4 mg Tablet, TAKE ONE TABLET BY MOUTH EVERY 6 HOURS (REPLACING HYDROCODONE), Disp: , Rfl: ??? ondansetron (Zofran) 8 mg Tablet, Take 8 mg by mouth every 8 hours as needed for Nausea., Disp: , Rfl: ??? hydrocortisone 2.5 % Cream, Apply topically 2 times daily., Disp: , Rfl: ??? homos/merad/octinox/octoc/zinc (CERAVE AM TOP), Apply topically., Disp: , Rfl: ??? nystatin-triamcinolone (MYCOLOG II) Cream, Apply topically 2 times daily. Apply topically Twice daily., Disp: 60 g, Rfl: 3 ??? senna (Senokot) 8.6 mg Tablet, Take 2 tablets by mouth 2 times daily., Disp: 120 tablet, Rfl: 11 ??? apixaban (Eliquis) 5 mg Tablet, Take 5 mg by mouth 2 times daily., Disp: , Rfl: ??? losartan (COZAAR) 100 mg Tablet, Take 50 mg by mouth daily., Disp: , Rfl: ??? acetaminophen (Tylenol) 325 mg Tablet, Take 3 tablets by mouth every 6 hours as needed for Pain.(Patient not taking: No sig reported), Disp: , Rfl: ??? metoprolol tartrate (Lopressor) 25 mg Tablet, Take 0.5 tablets by mouth 2 times daily., Disp: , Rfl: ??? polyethylene glycoL (Miralax) 17 gram Powder in Packet, Take 17 g by mouth daily as needed., Disp: , Rfl: ??? humaLOG KwikPen 100 unit/mL Insulin Pen, INJECT SUBCUTANEOUSLY PER SLIDING SCALE THREE TIMES A DAY BEFORE MEALS 101TO 150 2 UNITS 151 TO 200 4 UNITS 201 TO 250 6 UNITS 251 TO 3, Disp: , Rfl: ??? furosemide (Lasix) 20 mg Tablet, Take 20 mg by mouth 2 times daily., Disp: , Rfl: ??? nystatin (MYCOSTATIN) Powder, APPLY 1 GRAM TOPICALLY TWO TIMES A DAY NEEDED FOR 30 DAYS, Disp: , Rfl: ??? Jeanne Pen Needle 32 gauge x 5/32 Needle, , Disp: , Rfl: ??? blood sugar diagnostic strips Strip, 1 strip by NOT APPLICABLE route Three times a day., Disp: ,Rfl: ??? cholecalciferol, Vitamin D3, (Vitamin D3) 1,000 unit Tablet, Take 1,000 Units by mouth Daily., Disp: , Rfl: ??? insulin degludec (Insulin Tresiba FlexTouch U-100) 100 unit/mL (3 mL) Insulin Pen, Inject 60 Units subcutaneously daily., Disp: , Rfl: No current facility-administered medications for this visit. Allergies: Gabapentin, Atorvastatin calcium, Simvastatin, Ativan [lorazepam], Hydrocodone, Loratadine, Sulfa (sulfonamide antibiotics), and Tegaderm [transparent dressings] Social History and Habits: Social History Tobacco Use ??? Smoking status: Former Smoker Packs/day: 0.25 Years: 0.00 Pack years: 0.00 Types: Cigarettes Quit date: 06/2020 Years since quittin.7 ??? Smokeless tobacco: Never Used Vaping Use ??? Vaping Use: Every day Substance Use Topics ??? Alcohol use: Not Currently ??? Drug use: Never Significant Family History: No family history on file. Physical Exam: Pending Labs: Lab Results Component Value Date WBC 12.8 (H) 06/22/2021 HCT 24.3 (L) 06/22/2021 PLATELET 268 11/09/2021 INR 0.9 11/09/2021 BUN 36 (H) 06/24/2021 CREATININE 1.65 (H) 06/24/2021 ALKPHOS 114 (H) 06/02/2021 AST 15 06/02/2021 ALBUMIN 4.1 06/02/2021 BILITOT 0.2 06/02/2021 ALT 20 06/02/2021 PROT 7.8 06/02/2021 Prior relevant imaging: Assessment: 67yo female patient with history of urothelial carcinoma presenting to Interventional Radiology for mediport placement for improved access on chemotherapy. Planned procedure: Mediport placement Labs to be performed day of procedure: PLT Sedation: Moderate (Conscious sedation) Prophylactic antibiotic : None Contrast: No contrast Additional medications for procedure: Lidocaine Position: Supine Consent: Pending Medications to discontinue (and days held): None Case Urgency:: G- Other (non E or F elective cases) 2022 documented in this encounter Plan of Treatment Upcoming Encounters Date Type Specialty Care Team Description 10/21/2022 Appointment Hematology and Oncology 10/21/2022 Hospital Encounter Radiology Adilene Link[address] MEDICAL ONCOLOGY [place], [place] [phone] (Kwadwo morataya) 10/21/2022 Appointment Radiology Adilene Link[address] MEDICAL ONCOLOGY [place], [place] [phone] (Kwadwo morataya) 10/21/2022 Appointment Radiology Adilene Link[address] ONCOLOGY [place], [place] [phone] (Kwadwo morataya) 10/25/2022 Office Visit Hematology and Oncology Alberto Guy MD [facility] DR HEMATOLOGY/[place] [address] Adilene Link APRN [address] [place] [address] DR MEDICAL ONCOLOGY [place], [place] [address] 11/09/2022 Office Visit Urology Bobo Davis MD [facility] UROLOGY [place], [place] [address] (Wo rk) documented as of this encounter Visit Diagnoses Not on filedocumented in this encounter Care Teams Unitizer Relationship Specialty Start Date End Date Derek Torres PA PCP - General Internal Medicine 06/07/21 [address] [place], [place] [address] documented as of this encounter
--- OUTSIDE RECORDS SUMMARY | 2022-10-07 18:37 | XMS_ITS | Encounter Summary ---
:1955 Author Organization [facility] [place] [address] Care Team Providers Name Role Phone Derek Torres Primary Care Provider Encounter Details Date Type Department Care Team Description 04/19/2022 Office Visit Hematology/Oncology Rah Bhatia MD [facility] DR HEMATOLOGY/[place] [address] [facility]; [facility] [address] [place] [address] [place] [address] Bone metastases [address] [place] [phone] Social History Tobacco Use Types Packs/Day Years Used Date Former Smoker Cigarettes 0.25 0 Quit: 06/2020 Smokeless Tobacco: Never Used Alcohol Use Standard Drinks/Week Comments Not Currently 0 (1 standard drink = 0.6 oz pure alcoho l) Sex Assigned at Date Recorded Not on file documented as of this encounter Last Filed Vital Signs Vital Sign Reading Time Taken Comments Blood Pressure 156/64 04/19/2022 9:54 AM EDT Pulse 72 04/19/2022 9:54 AM EDT Temperature 35.8 ??C (96.4 ??F) 04/19/2022 9:54 AM EDT Respiratory Rate 20 04/19/2022 9:54 AM EDT Oxygen Saturation 99% 04/19/2022 9:54 AM EDT Inhaled Oxygen Concentration - - Weight 102.2 kg (225 lb 3.2 oz) 04/19/2022 9:54 AM EDT Height 161.2 cm (5' 3.47) 04/19/2022 9:54 AM EDT Body Mass Index 39.31 04/19/2022 9:54 AM EDT documented in this encounter Patient Instructions Patient InstructionsAnkita Pierre APRN - 04/19/2022 11:41 AM EDT She is to return as scheduled. documented in this encounter Progress Notes Ankita Pierre APRN - 04/19/2022 10:30 AM EDT Images from the original note were not included. Hematology & Medical Oncology [address] [address] Woo returns today to continue treatment for metastatic [...] medication use Z79.899 ??? Bone metastases C79.51 HPI:Woo Pichardo is 67 y.o. F referred by [...] retroperitoneal lymph nodes on January 22 at [facility]. Pathology is pending. PET scan demonstrated increased FDG uptake at the sites of urothelial thickening in the right renal pelvis and enlarged avid right para-aortic lymph nodes. Woo complains on low energy level, difficulties sleeping and right flank discomfort.Creatinine went up to 1.7 on December 30 from baseline creatinine of 0.5 in October 2019. Woo was admitted on March 19 with CHF/pulmonary edema thrombophlebitis of right upper extremity. She was started on diuretics and anticoagulation with Lovenox and and antibiotics with ciprofloxacin. Interval history (04/19/2022) woo returns today to continue treatment for her metastatic urothelialcancer. Overall she feels well. She said that she had a good week and was able to do PT/OT all week and feels that it is helping. She walks with her wheelchair in front of her. Denies any fever, chills, cough or shortness of breath. She denies any new pain. She does have arthritic pain but it is stable. Appetite is good. She states that she is losing her sense of smell and taste. She states that herblood sugars at home have been running higher than before. Her Blood sugar today in clinic is 260. ROS is otherwise negative. INTERVAL history(04/12/22):- Woo returns to the [facility] clinic today to continue treatment for metastatic urothelial carcinoma. Overall, she feels well. She does take Keflex for infection of herleft breast, has just 2 days left. Woo is working with PT/OT and is slowing improving. Denies any fevers, chills or signs of infection. No bladder issues. Denies any pain today. Edema has improved. Appetite is good. No other focal complaints. PMH: No interval changes since last visit UTI was treated with antibiotics Completed antibiotics for UTI about a week ago. 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 Finalpathology- [id number] High grade UCC with negative margins UTI E. coli 100,000 colonies PTSD/depression, diabetes mellitus on insulin, arthritis, , hernia repair x3, anxiety, hysterectomy for urinary incontinence 2 to 3 years ago Social History: No interval changes since last visit [id number] smoking history, quit 6 months ago, does [...] dressing Medications: Your Medications Accurate as of April 19, 2022 11:40 AM. If you have any questions, ask your nurse or doctor. Continued medications, unchanged Dose Details acetaminophen 325 [...] times a day. 1 strip Refills: 0 cephALEXin 250 mg Cap Commonly known as: Keflex Take 250 mg by mouth 2 times daily. 250 mg Refills: 0 CERAVE AM TOP Apply topically. [...] mL) Inpn Inject 60 Units subcutaneously daily. Generic drug: insulin degludec 60 Units Refills: 0 losartan 100 mg Tab Commonly known as: COZAAR Take 50 mg by mouth daily. 50 mg Refills: 0 metoprolol tartrate 25 mg Tab Commonly known as: Lopressor Take 0.5 tablets by mouth 2 times daily. 12.5 mg Refills: 0 Jeanne Pen Needle 32 [...] Pulmonary effort is normal. Lungs are clear. Abdominal: General: There is no distension. Musculoskeletal: Right lower leg: Trace edema Left lower leg: Trace edema. Lymphadenopathy: Cervical: No cervical adenopathy. Skin: General: Skin is warm. Positive for scattered erythematous macules on arms and upper torso. Neurological: General: No focal deficit present. Mental Status: She is alert. Psychiatric: Mood and Affect: Mood normal. Thought Content: Thought content normal. Judgment: Judgment normal. BP 156/64 (Patient Position: Sitting) Pulse 72 Temp 35.8 ??C (96.4 ??F) (Temporal) Resp 20 Ht 161.2 cm (5' 3.47) Wt 102.2 kg (225 lb 3.2 oz) SpO2 99% BMI 39.31 kg/m?? Wt Readings from Last 3 Encounters: 04/19/22 102.2 kg (225 lb 3.2 oz) 04/12/22 101.2 kg (223 lb) 04/05/22 101.8 kg (224 lb 6.4 oz) Pathology: 06/16/21 ADDENDUM DISCUSSION PAS and BMS stains were evaluated for Block A17, demonstrating nodular ??glomerulosclerosis. Electronically signed by: ?MD Thorne Jason R. Verified: ??06/24/2021 11:01 ??Pathologist Performed at: ??-[facility] Dept. of Pathology, [place], [place] ? Surgical Pathology DIAGNOSIS Right kidney and ureter with paracaval and intracaval lymph nodes, excision: ??- Urothelial carcinoma. ?? (See SYNOPTIC REPORT), invasive into ? perinephric fat and renal parenchyma. 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 Electronically signed by: ?MD Thorne Jason R. Verified: ??06/24/2021 10:58 ??Pathologist Performed at: ??-[facility]??Dept. of Pathology, [place], [place] SYNOPTIC Specimen ?Procedure: ??Nephroureterectomy ?Specimen Laterality: [...] carcinoma with superimposed abundant degenerative changes Labs: 04/19/22; wbc 7.8 H/H 11.6/36.9 Plts 220 [...] TB 0.4, AST 26, ALT 39, alkaline [id number], albumin 3.3, TSH 2.62, free T4 1.4. [...] protein 1+, blood moderate. Nitrites negative, RBC 10/25, bacteria many, 03/22/2021 vitamin B12 more than [...] WBC 10.4, hemoglobin 12.2, platelet count 347, Imagin03/11/22. PET-CT scan: IMPRESSION Skeletal metastases are present [...] nivolumab presented in December 2020 on symposium. Woo started Nivolumab on 07/27/21. She tolerated C1 well without any clinical toxicities. She has aminimal rash that is itching relieved with OTC hydrocortisone.Labs reviewed and are adequate for treatment today. Plan is to restage her in September with PET scan. 10/19/21 PET scan demonstrated L5 lesion suspicious for metastatic disease.Woo tolerates nivolumab reasonably well with some fatigue [...] do MRI of lumbar and sacrum 01/04/22 Woo returns today for C2of enfortumab. Labs and toxicities assessed. We will proceed with the treatment today. She understands elevated glucose can be a side effect of the therapy and importance of glucose control in continuing therapy. Plan to assess with PET scan or CT scan after completionof 3 cycles of Padcev. 01/11/22 Woo does not feel well today with her back pain, fatigue, skin rash, constipation. She would like to take 2 weeks of medication from treatment. Woo want to discontinue pretreatment dexamethasone and Aloxi as they affect your diabetes and constipation. I think we can try to hear without pain medication given there is no action plan that. She would like to discontinue Zometa as she believeshad a reaction to her. 01/25/22 Woo feels very weak and in pain in [...] She is interested to restart Padcev. 04/12/22 Woo returns today to continue palliative treatment with Padcev. She is feeling well today. No pain. Labs were reviewed. Okay for treatment. Proceed with day 8 of cycle 3 today 04/19/22 She will continue with palliative treatment with Padcev. She continues to feel well. No new pain. Labs are acceptable for treatment. We will continue to monitor her Glu. It is elevated today at 260. She will have a port placed next week and she will return in 2 weeks for her next treatment. She is comfortable with this plan. # CHF: Increased pericardial effusion. 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 Ebony Beckham,had stress test on April 01, 2021 technically suboptimal, but no definite myocardial ischemia or evidence of prior infarction. EF 63% #Elevated creatinine/hyperkalemia:? Effect of antihypertensive therapy particularly losartan. Normaltoday. #Anemia: Hemoglobin 11.6. Asymptomatic Remains relatively stable. Multifactoral. It is [...] and/or benadryl as prescribed. PLAN: 1. Enfortumab vedotin D15C3 today 2. Zometa 3mg IV every 4 weeks. Continue calcium/vitamin D supplements. 3. Follow up visit in 2 week with CBC,CMP and D15C3 of enfortumab vedotin. Woo voiced understanding of the plan and was given an opportunity to ask questions which I answered to the best of my ability. Woo understands she can call the clinic between visits with any questions/concerns or new symptoms. documented in this encounter Plan of Treatment Upcoming Encounters Date Type Specialty Care Team Description 10/21/2022 Appointment Hematology and Oncology 10/21/2022 Hospital Encounter Radiology Adilene Link APRN [address] [place] [address] DR MEDICAL ONCOLOGY [place], [place] [phone] (Kwadwo morataya) 10/21/2022 Appointment Radiology Adilene Link APRN [address] [place] [address] DR MEDICAL ONCOLOGY [place], [place] [phone] (Wo rk) 10/21/2022 Appointment Radiology Adilene Link[address] MEDICAL ONCOLOGY [place], [place] [phone] (Wo rk) 10/25/2022 Office Visit Hematology and Oncology Alberto Guy MD [facility] DR HEMATOLOGY/[place] [address] MEDICAL ONCOLOGY [place], [place] [address] 11/09/2022 Office Visit Urology Bobo Davis MD [facility] DR UROLOGY [place], [place] [address] (Wo rk) documented as of this encounter Visit Diagnoses Diagnosis Metastatic urothelial carcinoma 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 Bone metastases Secondary malignant neoplasm of bone and bone marrow documented in this encounter Care Teams Residence Supervisor Relationship Specialty Start Date End Date Derek Torres PA PCP - General Internal Medicine 06/07/21 Mahnaz [address] [place], [place] [phone] documented as of this encounter
--- OUTSIDE RECORDS SUMMARY | 2022-10-07 18:37 | XMS_ITS | Encounter Summary ---
:1955 Author Organization [facility] [place] [address] Care Team Providers Name Role Phone Derek Torres Primary Care Provider Reason for Visit Reason Comments Chemotherapy Cycle 3, Day 1 - Enfortumab, Zometa Treatment/Therapy Plan Authorization (Routine) - Authorized Specialty Diagnoses / Procedures Referred By Contact Refer red To Contact Diagnoses Urothelial carcinoma of kidney, right Malignant neoplasm of urinary bladder, unspecified site Neutropenia, drug-induced Metastatic urothelial carcinoma High risk medication use Alberto Bhatia MD [facility] Hem Onc Office Procedures TC PALONOSETRON HCL, 25MCG, INJECTION (ALOXI) TC ZOLEDRONIC ACID, 1 MG, INJECTION J2469 palonosetron (Aloxi) 0.25 MG [id number] enfortumab vedotin-ejfv (PADCEV) 125 mg [id number] ZOMETA 3 MG [facility] [address] [place] [address] HEMATOLOGY/[place] [phone] Fax: Referral ID Status Reason Start Date Expiration Date Visits V isits Requested Authorized [id number] Authorized 05/31/2022 05/30/2023 20 20 Encounter Details Date Type Department Care Team Description 04/05/2022 Infusion Hematology Oncology at [facility] tastatic urothelial carcinoma; [facility] High risk medication use; [address] [place] [address] Neutropenia, drug-induced; [place], [place] [phone] Urothelial carcinoma of kidn ey, right; [phone] Malignant neopl asm of urinary bladder, unspecified [...] encounter Progress Notes Brittny Rondon RN - 04/05/2022 11:00 AM EDT INFUSION THERAPY ADMINISTRATION NOTES DIAGNOSIS: Metastatic urothelial cancer CYCLE #: Cycle 3, Day 1 - Enfortumab, Zometa REASON FOR VISIT: To receive chemotherapy. SUBJECTIVE: Nancy is tolerating the therapy with minimal side effects. She is in good spirits today. OBJECTIVE: Seen by provider. Ready to treat. LAB DATA: WBC - 9.36, H/H - 11.4/37.2, Plt Ct - 283, ANC - 6.72, Lytes: wnl, BUN/Cr - 40/1.4, CrCl -61, Calcium - 8.7, Glucose - 123. IV ACCESS: PIV Pre administration: Chemotherapy orders independently verified for drug name, route, and dosage per patient's height, weight and BSA by Brittny Rondon RN and Staff Pharmacist(s). REACTIONS (DESCRIPTION, TIME, INTERVENTION AND EFFECTIVENESS) none ASSESSMENT: Nancy was awake, alert and tolerated treatment well. PIV discontinued. PLAN: Return to clinic in one week. documented in this encounter Plan of Treatment Upcoming Encounters Date Type Specialty Care Team Description 10/21/2022 Appointment Hematology and Oncology 10/21/2022 Hospital Encounter Radiology Adilene Link [address] MEDICAL ONCOLOGY [place], [place] [phone] (Kwadwo morataya) 10/21/2022 Appointment Radiology Adilene Link[address] MEDICAL ONCOLOGY [place], [place] [phone] (Kwadwo morataya) 10/21/2022 Appointment Radiology Nikolay, Adilene [address] [place] [address] (Wo rk) 10/25/2022 Office Visit Hematology and Oncology Alberto Guy MD [facility] DR HEMATOLOGY/[place] [address] [address] MEDICAL ONCOLOGY [place], [place] [phone] 11/09/2022 Office Visit Urology Bobo Davis MD [facility] DR UROLOGY [place], [place] [address] (Wo rk) documented as of [...] Rate Site calcium carbonate (Tums) chewable Given 04/05/2022 12:59 PM EDT 500 mg tablet 500 mg 500 mg, Oral, ONCE, 1 dose, On Mon04/05/22 at 1145, Routine enfortumab vedotin-ejfv (PADCEV) New Bag 04/05/2022 11:46 AM E DT 120 mg 124 mL/hr 120 mg in sodium chloride 0.9% 62 mL chemo infusion 120 mg, Intravenous, ONCE, 1 dose, On Mon04/05/22 at 1130, Administer over 30 Minutes, Warning Vesicant/Irritant Medication Dose Ordered = 125 mg (1.25 mg/kg). Pharmacist rounded dose per procedure., This agent is restricted to outpatient use. Is this drug being given as an outpatient? Yes palonosetron (Aloxi) (0.05 mg/mL) injection Given 03/27 11:11 AM EDT 0.25 mg 0.25 mg 0.25 mg, Intravenous, ONCE, 1 dose, On Mon04/05/22 at 1030, Administer over 30 seconds. Administer prior to chemotherapy, Routine sodium chloride 0.9% infusion New Bag 04/05/2022 10:30 AM EDT 100 mL/hr 100 mL/hr 100 mL/hr, Intravenous, CONTINUOUS, Starting on Mon04/05/22 at 1030, Until Mon04/05/22 at 1639 zoledronic acid (Zometa) 3 mg in New Bag 04/05/2022 12:56 PM EDT 3 mg 415 mL/hr sodium chloride 0.9% 103.75 mL infusion 3 mg, Intravenous, ONCE, 1 dose, On Mon04/05/22 at 1145, Administer over 15 Minutes, Do [...] metastases documented in this encounter Care Teams Spaghetti Machine Operator Relationship Specialty Start Date End Date Derek Torres PA PCP - General Internal Medicine 06/07/21 Mahnaz [address] [place] [address] documented as of this encounter
--- OUTSIDE RECORDS SUMMARY | 2022-10-07 18:37 | XMS_ITS | Encounter Summary ---
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 CONTENT PRODUCER [address] [phone] RADIATION ONCOLOGY [phone] [place], [place] [address] Social History Tobacco Use Types Packs/Day Years Used Date Former Smoker Cigarettes 0.25 0 Quit: 06/2020 Smokeless Tobacco: Never Used Alcohol Use Standard Drinks/Week Comments Not Currently 0 (1 standard drink = 0.6 oz pure alcoho l) Sex Assigned at Date Recorded Not on file documented as of this encounter Last Filed Vital Signs Vital Sign Reading Time Taken Comments Blood Pressure 145/74 05/31/2022 8:42 AM EDT Pulse 70 05/31/2022 8:42 AM EDT Temperature 36.1 ??C (96.9 ??F) 05/31/2022 8:42 AM EDT Respiratory Rate 20 05/31/2022 8:42 AM EDT Oxygen Saturation 99% 05/31/2022 8:42 AM EDT Inhaled Oxygen Concentration - - Weight 101.3 kg (223 lb 4.8 oz) 05/31/2022 8:42 AM EDT Height 161.2 cm (5' 3.47) 05/31/2022 8:42 AM EDT Body Mass Index 38.98 05/31/2022 8:42 AM EDT documented in this encounter Patient Instructions Patient InstructionsAnkita Pierre APRN - 05/31/2022 9:31 AM EDT She will need followup in one week with labs provider and infusion and then in 2 weeks as well. documented in this encounter Progress Notes Ankita Pierre APRN - 05/31/2022 9:00 AM EDT Images from the original note were not included. Hematology & Medical Oncology [address] [address] Nancy returns today to continue treatment for [...] retroperitoneal lymph nodes on January 22 at [facility]. Pathology is pending. PET [...] Lovenox and and antibiotics with ciprofloxacin. Interval History 05/03/22- Nancy returns today to continue treatment for her metastatic urothelial cancer. Overall she feels well. She states that she had her port placed one week ago. It is not sore andthey had no problems with placement. She is a little more fatigued than she was 2 weeks ago. She continues to walk with her wheelchair in front of her at home. She denies any fevers chills Or shortnessof breath. Her appetite is good. Her sense of taste and smell continue to come and go which makes itharder for her to eat. She denies any new pain. She continues to monitor her blood sugars at home. She is due for her zometa today. ROS is otherwise negative. Interval history (05/17/2022) Nancy returns today to continue treatment for her metastatic urothelialcancer. Overall she feels at her baseline.. She feels more tired but keep doing PT/OT all week. Complains of low back pain intermittently. Left upper leg discomfort intermittently. She has a mole on the inner surface of her thigh and is getting irritated by treatment. She walks with her wheelchair in front of her. Denies any fever, chills , cough or shortness of breath. She denies any new pain. She does have arthritic pain but it is stable. Appetite is good. She states that she is losing her hair as. ROS is otherwise negative. Interval history (05/31/22) nancy returns today to continue treatment for her metastatic urothelial cancer She continues to feel at her baseline or slightly better. She only has pain intermittently Appetite is good but either food has no taste or tastes weird. She sleeps off and on trying to find a position that is comfortable for her. She has had a rash on her arms and trunk that comes and goes. It isitchy at times. She does use hydrocortisone cream for it. She still has fatigue and gets short of breath easily with exertion. She does not have much stamina. She did have diarrhea for almost a week but now her bowel movements are normal again. She denies any fevers or chills. ROS is otherwise negative. PMH: No interval changes since last visit UTI was treated with antibiotics Completed antibiotics for UTI about a week ago. 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 Finalpathology- [id number] High grade UCC with negative margins UTI E. coli 100,000 colonies PTSD/depression, diabetes mellitus on insulin, arthritis, , hernia repair x3, anxiety, hysterectomy for urinary incontinence 2 to 3 years ago Social History: No interval changes since last visit [id number] smoking history, quit 6 months ago, does [...] dressing Medications: Your Medications Accurate as of May 31, 2022 9:06 AM. If you have any questions, ask [...] U-100 100 unit/mL (3 mL) Inpn Inject 62 Units subcutaneously daily. Generic drug: insulin degludec 62 Units Refills: 0 losartan 100 mg Tab [...] Thought content normal. Judgment: Judgment normal. BP 145/74 (Patient Position: Sitting) Pulse 70 Temp 36.1 ??C (96.9 ??F) (Temporal) Resp 20 Ht 161.2 cm (5' 3.47) Wt 101.3 kg (223 lb 4.8 oz) SpO2 99% BMI 38.98 kg/m?? Wt Readings from Last 3 Encounters: 05/31/22 101.3 kg (223 lb 4.8 oz) 05/17/22 100.2 kg (221 lb) 05/10/22 101.4 kg (223 lb 9.6 oz) Pathology: 06/16/21 ADDENDUM DISCUSSION PAS and BMS stains were evaluated for Block A17, demonstrating nodular ??glomerulosclerosis. Electronically signed by: ?MD Thorne Jason R. Verified: ??06/24/2021 11:01 ??Pathologist Performed at: ??-[facility] Dept. of [facility]ology, [place], [place] ? Surgical Pathology DIAGNOSIS Right kidney and ureter with paracaval and intracaval lymph nodes, excision: ??- Urothelial carcinoma. ?? (See SYNOPTIC REPORT), invasive into ? perinephric fat and renal parenchyma. 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 Electronically signed by: ?MD Thorne Jason R. Verified: ??06/24/2021 10:58 ??Pathologist Performed at: ??-[facility]Dept. of Pathology, [place], [place] SYNOPTIC Specimen ?Procedure: ??Nephroureterectomy ?Specimen Laterality: [...] carcinoma with superimposed abundant degenerative changes Labs: 05/31/22 Na 138 K+ 4.2 BUN/Cr 39/1.5 [...] TB 0.4, AST 26, ALT 39, alkaline , albumin 3.3, TSH 2.62, free T4 1.4. [...] CHF: Increased pericardial effusion. 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 Ebony Beckham,had stress test [...] steroid cream and/or benadryl as prescribed. PLAN: 2. Zometa 3mg IV every 4-5 weeks. Continue calcium/vitamin D supplements. 3. Follow up visit in1 week with CBC,CMP and D8 C5 of enfortumab vedotin 4. PET scan in 2-3 weeks scheduled for June 13 Nancy voiced understanding of the plan and [...] Oncology 10/21/2022 Hospital Encounter Radiology Adilene Link [address] [place] [address] (Kwadwo morataya) 10/21/2022 Appointment Radiology Adilene Link [address] MEDICAL ONCOLOGY [place], [place] [phone] (Kwadwo morataya) 10/21/2022 Appointment Radiology Adilene Link [address] [place] [address] (Kwadwo morataya) 10/25/2022 Office Visit Hematology and Oncology Alberto Guy MD [facility] DR HEMATOLOGY/[place] [address] Adilene Link APRN [address] [place] [address] DR MEDICAL ONCOLOGY [place], [place] [phone] 11/09/2022 Office Visit Urology Bobo Davis MD [facility] [place] [place] [address] (Wo rk) documented as of this encounter Visit Diagnoses Diagnosis Metastatic urothelial carcinoma 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 documented in this encounter Care Teams Strategies Analyst Relationship Specialty Start Date End Date Derek Torres PA PCP - General Internal Medicine 06/07/[address] [place] [address] documented as of this encounter
--- OUTSIDE RECORDS SUMMARY | 2022-10-07 18:37 | XMS_ITS | Encounter Summary ---
:1955 Author Organization [facility] [place] [address] Care Team Providers Name Role Phone Derek Torres Primary Care Provider Reason for Referral Diagnostic Test (Routine) - Closed Specialty Diagnoses / Procedures Referred By Contact Refer red To Contact Radiology Diagnoses Metastatic urothelial carcinoma Alberto Bahtia MD [facility] Interventionl Rad Procedures IR [facility] HEMATOLOGY/[place] [address] [place] [address] Referral ID Status Reason Start Date Expiration Date Visits V isits Requested Authorized [id number] Closed Specialty 04/12/2022 10/13/2023 1 1 Service Requested Reason for Visit Diagnostic Test (Routine) - Closed Specialty Diagnoses / Procedures Referred By Contact Refer red To Contact Radiology Diagnoses Metastatic urothelial carcinoma Alberto Bhatia MD [facility] Interventionl Rad Procedures IR [facility] HEMATOLOGY/[place] [address] [place] [address] Referral ID Status Reason Start Date Expiration Date Visits V isits Requested Authorized [id number] Closed Specialty 04/12/2022 10/13/2023 1 1 Service Requested Encounter Details Date Type Department Care Team Description 04/27/2022 Hospital En[place] [facility] [place] Metastatic [facility] MD Alberto urothelial carcinoma Drive [facility] [phone] HEMATOLOGY/ONCOL [phone] [place] [address] Social History Tobacco Use Types Packs/Day Years Used Date Former Smoker Cigarettes 0.25 0 Quit: 06/2020 Smokeless Tobacco: Never Used Alcohol Use Standard Drinks/Week Comments Not Currently 0 (1 standard drink = 0.6 oz pure alcoho l) Sex Assigned at Date Recorded Not on file documented as of this encounter Last Filed Vital Signs Vital Sign Reading Time Taken Comments Blood Pressure 150/52 04/27/2022 10:30 AM EDT Pulse 76 04/27/2022 10:20 AM EDT Temperature 35.9 ??C (96.6 ??F) 04/27/2022 10:30 AM EDT Respiratory Rate 14 04/27/2022 10:30 AM EDT Oxygen Saturation 97% 04/27/2022 10:30 AM EDT Inhaled Oxygen Concentration - - Weight - - Height - - Body Mass Index - - documented in this encounter Discharge Instructions Discharge InstructionsChhaya Bhagat RN - 04/27/2022 9:47 AM EDT Images from the original note were not included. [facility] Department of Vascular and Interventional Radiology Discharge Instructions for your Chest Port You have received a ???Power Port?? , which provides access for infusions and blood draws. What makes this a ???Power Port?? is the unique ability to ???power inject?? contrast (intravenous dye) through the port when getting a CT scan, which produces superior images (pictures). Patients who don???thave these special ports need to have an IV started if they need dye injected for their CT scan. Your port is printed with the letters ???CT?? which can be detected by x- ray to identify it as a ???Power Port?? . You will be provided with an ID card stating the adjunct physics instructor and type of port you have. Please carry this with you in a safe place. Bandage: There is a sterile dressing over the port site consisting of small gauze with a clear dressing (Tegaderm or [id number] ). This dressing should be left in place for 48 hours. If the clear dressing becomes loose you should place tape over the edges to secure it in place. Note: If you have steri-strips beneath your dressing, simply allow them to fall off. Do not peel them off. There may be Calhoun-liz (skin glue) also, allow this to flake off. Pain: Apply ice bag to site (s) at 30 minute intervals (30 minutes on and 30 minutes off) for 24 hours?? . May use as needed for pain and/or bruising after 24 hours. Bathing: Do not take a shower until 48 hours after your port is placed; after this time you may shower with the dressing in place, then remove it and pat your skin dry. After 48 hours, we recommend that you cover the area with THE AQUA GUARD PROVIDED for 1 week while showering, facing away from the shower stream. You may use a bandaid to cover the site after the 48 hours are up if there is any drainage. No tub baths, whirlpools or swimming for one week following port placement. Flushing the mediport: If your port has not been used, it must be flushed every 30 days. What to expect when your port is accessed: 1. You may feel tenderness the first few times it is accessed but generally this subsides over time.Ask your healthcare provider to use a local anesthetic on the site if discomfort is a problem for you. You may ask for a prescription for a topical cream (EMLA) from your clinician; you may apply at home prior to your appointments, to help numb the skin over your port. 2. The clinician should be wearing sterile gloves and a mask during the access procedure. Anyone in the room with you should also have a mask on. 3. The skin over and 2 inches around the port should be cleaned with a disinfectant 4. Tell the clinician if you would like the skin numbed (lidocaine) before the access needle is placed. 5. Unless you are unable to take heparin (blood thinner), the port should be injected with a heparinsolution before deaccess (at end of each treatment or blood draw). When to call your healthcare provider: If you notice bleeding from the puncture site in your neck, or from the port incision on your chest,you should apply firm pressure over the site for 10-15 minutes, keeping the site covered. Call if you are still bleeding after 10-15 minutes. If you develop pain, redness, drainage or swelling at or around the port site, or the puncture site in the neck If you develop fever (elevation of more than 2 degrees or greater than 101F) and/or shaking chills When to call the Interventional Radiology Department: Please call with any questions or concerns. Ifit is during regular office hours, please call [phone]. If it is after regular office hours, oron weekends or holidays, please call [phone] and ask to speak to the [facility] on callfor Interventional Radiology. XXX You have received medication during your procedure to help lessen anxiety and keep you comfortable. These medications affect judgement and reaction time. We recommend that you do not drive, operateequipment, sign any important documents, or smoke unattended for 24 hours following your procedure. Because of the sedation, be careful on stairs, as you may be unsteady on your feet. You may resume your regular diet as tolerated. IV site -- slight redness, or tenderness is normal, you can use a warm compress. If tenderness and redness increases or foul drainage occurs, please contact your M. D. Revised 09/12/19 documented in this encounter Medications at Time of Discharge Medication Sig Dispensed Refills Start Date End Date chlorthalidone Take 25 mg by mouth 0 04/16/2022 (Hygroten) 25 mg Tablet every morning. sucralfate (Carafate) 1 Take 1 tablet by 120 tablet 3 2021 gram TabletIndications: mouth 4 times daily. Metastatic urothelial carcinoma, High risk medication use diphenhydrAMINE Take 25 mg by mouth 0 (Benadryl) 25 mg every 6 hours as Capsule needed for Itching. hydrocortisone 2.5 % Apply topically 2 0 Cream times daily. homos/merad/octinox/oct Apply topically. 0 oc/zinc (CERAVE AM TOP) nystatin-triamcinolone Apply topically 2 60 g 3 2021 (MYCOLOG II) times daily. Apply CreamIndications: topically Twice Metastatic urothelial daily. carcinoma, Drug-induced skin rash senna (Senokot) 8.6 mg Take 2 tablets by 120 tablet 11 2021 TabletIndications: mouth 2 times daily. Metastatic urothelial carcinoma apixaban (Eliquis) 5 mg Take 5 mg by mouth 2 0 Tablet times daily. losartan (COZAAR) 100 Take 25 mg by mouth 0 08/23 mg Tablet daily. acetaminophen (Tylenol) Take 3 tablets by 0 06/23 325 mg Tablet mouth every 6 hours as needed for Pain. metoprolol tartrate Take [...] TO 3 nystatin (MYCOSTATIN) APPLY 1 GRAM 0 02/18/2021 Powder TOPICALLY TWO TIMES A DAY NEEDED [...] every 8 hours as needed for Nausea. cephALEXin (Keflex) 250 Take 250 mg by mouth 0 05/17/2022 mg Capsule 2 times daily. HYDROmorphone TAKE ONE TABLET BY 0 01/14/2022 (Dilaudid) 4 mg Tablet MOUTH EVERY 6 HOURS (REPLACING HYDROCODONE) furosemide (Lasix) 20 Take 20 mg by mouth 2 0 08/09/2022 mg Tablet times daily. documented as of this encounter Progress Notes Amirah Jain RN - 04/27/2022 11:59 PM EDT Interventional and Vascular Radiology Post-Procedure Call Name: Nancy Rivas Age: 67 y.o. Sex: Female Date of : 1955 (home) No relevant phone numbers on file. PCP DELORES Zaman [phone] Date/Time of call: April 28, 2022/9:48 AM Procedure: Mediport Placement Procedural Provider: Naa Contact with patient or if not, with whom? Patient Message left on answering machine? Spoke to patient Are you having pain related to your procedure now? Per patient, just tenderness, which is to be expected Lung bx: Any shortness of breath, coughing up blood or chest pain? No Liver bx: Any pain a biopsy site: N/A Are you having any swelling or bleeding from the site? No Are there any improvement in your symptoms? No symptoms per patient Are you having any other problems related to your procedure? No Did you understand the discharge instructions given and do you have any questions? No, patient needed some clarifications Do you have any comments about your Nurse or Provider or the care you received? Per patient you guys are awsome Comments (if applicable): Annia Villa RN - 04/27/2022 10:25 AM EDT 1028 Nancy Rivas received from procedural RN Chhaya. NAD-VSS. Patient connected to monitor. 1030 Patient ready for discharge per protocol. Discharge paperwork reviewed with patient and caregiver. POC updated and reviewed. Concerns addressed, questions answered. 1045 Patient discharged home via wheelchair with caregiver. Annia Villa RN hhaya Buck RN - 04/27/2022 9:44 AM EDT ANGIO NURSING DATABASE Name: NANCY RIVAS Date of : 1955 AGE: 67 y.o. Address: [address] [address] (home) Mobile: No relevant phone numbers on file. Referring Provider: Alberto Bhatia REASON FOR VISIT: Order Questions Answers Where will study be performed? [facility] Radiology [120] Is the patient on anticoagulant / antiplatelet therapy ? DOAC (Direct Oral Anticoagulant) Reason for exam and clinical history: Metastatic urothelial carcinoma, needs access for chemotherapy Exam/Procedure requested: Mediport placement Allergies Allergen Reactions ??? Gabapentin ??? Atorvastatin [...] [Transparent Dressings] Dermatitis Tegaderm/stat-lock of IV dressing Pertinent PMH: Patient Active Problem List Diagnosis Code ??? [...] medication use Z79.899 ??? Bone metastases C79.51 Pertinent PSH: Past Surgical History: Procedure Laterality Date ??? CREATED BY INTERFACE c section Procedure Date: 1979 ??? CREATED BY INTERFACE Periorbital rejuvenation/Blepharoplasty Procedure Date: 2007 ??? CREATED BY INTERFACE rectal fissure correction Procedure Date: 1979 ??? CREATED BY INTERFACE Three breast surgeries bilaterally & drainage of breast abscess Procedure Date: ??? CREATED BY INTERFACE Tonsillectomy as a child Procedure Date: Unknown ??? CT GUIDED BIOPSY BONE(SPINE/SKULL) 11/09/2021 CT Guided Biopsy Bone (Spine/Skull) 11/09/2021 [facility] RAD CAT SCAN ??? PRO NEPHRECTOMY, W/PART. URETECTOMY Right 06/16/2021 @LAPAROSCOPY TOTAL NEPHROURETERECTOMY, ROBOTICS ASSIST (WRVU 25.36) performed by Bobo Davis MDat [facility] MAIN OR Date/Procedure Meds given/comments 11/09/21 CT guided Bone biopsy Fentanyl 200 mcg IV, Versed 4 mg IV, difficulty positioning, able to tolerate with encouragement and sedation 04/27/22 Mediport placement Fentanyl 150 mcg IV; Versed 3 mg IV; pt had some back pain d/t baseline disease but overall tolerated procedure well ? 930 to procedure room 1 via stretcher. Onto table supine. All monitors, O2, safety strap in place. Meds per protocol. Laboratory Results: Lab Results Component Value Date INR 0.9 11/09/2021 Lab Results Component Value Date CREATININE 1.65 (H) 06/24/2021 Lab Results Component Value Date K 4.8 06/24/2021 Lab Results Component Value Date PLATELET 268 11/09/2021 documented in this encounter H&P Notes Meliton Tay PA - 04/27/2022 9:02 AM EDT INTERVENTIONAL RADIOLOGY FOCUSED H&P: Procedure: Mediport Placement Update to H&P: The patient's history and physical exam have been reviewed and completed. There has been NO intervalchange from that of the pre-procedural note done within the last 30 days. There is NO change in the procedural plan. Physical Exam: Cardiovascular: Regular, Normal Pulmonary: Breath sounds clear to auscultation Meds: Current medications reviewed. No medications held. Labs: No new relevant labs. The planned procedure (and sedation plan if appropriate) , its benefits and risks, and alternatives were discussed with the patient. The patient consented to the procedure. PRE-SEDATION ASSESSMENT: Sedation Plan: moderate (conscious sedation) ASA: 3: Patient with severe systemic disease Mallampati: II: tonsillar pillars are blocked by the tongue Confirm NPO status: Yes History of anesthetic complications: No Current medications reviewed: Yes Allergies reviewed: Yes Source Note - Meliton Tay PA - 2022 4:09 PM EDT Images from the original note were not included. RADIOLOGY FOCUSED H&P and PRE-PROCEDURE NOTE: Referring Physician: No ref. provider found PCP: DELORES Zaman Procedure Indication: metastatic urothelial carcinoma, need for durable venous access for chemotherapy Presenting Diagnosis/ Complaint: Nancy Rivas is a 67 y.o. female with history [...] 11/09/2021 CT Guided Biopsy Bone (Spine/Skull) 11/09/2021 [facility] RAD CAT SCAN ??? PRO NEPHRECTOMY, W/PART. URETECTOMY Right 06/16/2021 @LAPAROSCOPY TOTAL NEPHROURETERECTOMY, ROBOTICS ASSIST (WRVU 25.36) performed by Bobo Davis MDat [facility] MAIN OR Medications: Current Outpatient Medications: [...] and Oncology 10/21/2022 Hospital Encounter Radiology Adilene Link[address] MEDICAL ONCOLOGY [place], [place] [phone] (Kwadwo morataya) 10/21/2022 Appointment Radiology Adilene Link[address] MEDICAL ONCOLOGY [place], [place] [phone] (Kwadwo morataya) 10/21/2022 Appointment Radiology Adilene Link[address] [place] [address] [phone] (Kwadwo morataya) 10/25/2022 Office Visit Hematology and Oncology Alberto Guy MD [facility] DR HEMATOLOGY/[place] [address] [address] MEDICAL ONCOLOGY [place], [place] [id number] 11/09/2022 Office Visit Urology Bobo Davis MD [facility] [place] [address] (Wo rk) documented as of this encounter Procedures Procedure Name Priority Date/Time Associated Diagnosis Comme nts IR MEDIPORT Routine 04/27/2022 10:25 AM Metastatic Results for this PLACEMENT EDT urothelial carcinoma procedu re are in the results section. POCT GLUCOSE Routine 04/27/2022 9:01 AM Results f or this EDT procedure are i n the results section. documented in this encounter Results IR Mediport Placement (04/27/2022 10:25 AM EDT) Anatomical Region Laterality Modality X-Ray Angiography Specimen (Source) Anatomical Location Collection Method / Collectio n Time Received Time / Laterality Volume Narrative 04/27/2022 10:57 AM EDT Interventional Radiology Procedure Note Procedure: Chest port placement. Indication: According to Meliton Tay note d ated 2022 Nancy Rivas is a 67 y.o. female with history of urothelial carcinoma presenting to Interventional Radiology f or mediport placement for improved access on chemotherapy. ??The patient has additional PMh of DMII , HL, CKD, and DVT (eliquis) Pre-procedure: Informed consent for the procedure including risks, benefits, and alternatives was obtained. Active time-out was performed prior to the procedure. The site was pre pared and draped using maximal sterile barrier technique. ?? Sedation: The patient received split dos es of intravenous midazolam and fentanyl from the interventional radiolo gy nurse while pulse, pressure, and oxygen saturation were continuously monitored. Technique: The right internal jugular ve in was sonographically evaluated and determined to be patent. A permanent image was stored. Local anesthetic was administered. The vein wa s accessed via real-time ultrasound and micropuncture set with 21 gauge needle. A 0.018 wire was advanced into superior vena cava. The remainder of the procedure was perfo rmed under fluoroscopic guidance. A 4 Fr introducer sheath was placed. Loc al anesthetic was administered on the anterior chest wall inferolateral to the puncture site. A transverse skin incision was made in the right ante rior chest wall, and with blunt dissection the port pocket was created. Port was placed into the site. A trocar was then used to advance the cath eter subcutaneously to the venous access site. 018 wire was used to measur e the amount of catheter needed. Port catheter was cut to length. A 0.035 wire was placed into the IVC under fluoro. ??4 Fr introducer sheath w as exchanged for a peel-away sheath over the wire. The wire and inner obtura tor were removed and the port catheter advanced into the superior vena cava under fluoroscopic guidance. Catheter tip was positioned at the caval atrial junction and an image was stored. The port flushed and aspirated r eadily and was loaded with heparin solution. The skin was closed using a tw o-layer technique (2-0 vicryl deep interrupted and 4-0 vicryl running sutur e) plus tissue adhesive. The port was not left accessed. Medications: Lidocaine 1% <10 mL SQ, Lid ocaine-Epinephrine 2%-1:200,000 injection <20 mL, Versed 3 mg IV, Fentan yl ??150 mcg IV. Fluoroscopy: 0.5 mGy Estimated blood loss: 5 mL Complications: No immediate Impression: Implantation of power-inject able, Bard 8 Fr Vas-Cath Vaccess single-lumen port via right IJ with cath eter tip at the SVC/atrial junction. The port may be used immediate ly. Attending: Bobo Jacome MD. ??I, Dr. Shahid eldridge was present throughout this procedure. ??I was present during the in traservice time as documented by the IR Nurse. 04/27/2022 Alberto Bhatia MD IMG IR ORDERABLES (ABNORMAL) POCT Glucose (04/27/2022 9:01 AM EDT) P athologist Signature POC Glucose 295 (H) 65 - 199 [facility] mg/dL [facility] Comment: Supplemental ranges: <140 mg/dL before meals <180 mg/dL all other times of the day Specimen Anatomical Collection Method Collection Time Receive d Time (Source) Location / / Volume Laterality Blood 04/27/2022 9:01 AM 2 9:01 EDT AM EDT Alberto Bhatia MD POINT OF CARE TEST ORDERABLE S Performing Organization Address City/State/[place] [address] documented in this encounter Visit Diagnoses Diagnosis Metastatic urothelial carcinoma 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 - Titration dose 25-50 mcg IV, (based on patient response) every 3 minutes PRN, to maintain procedural pain less than 2 per pain Scale. Maximum dose: 50 mcg/dose, 250 mcg/hour For use in Interventional Radiology (IR) only for procedural sedation with direct provider supervision and verbal order., Angio/IR (Day of Procedure), Routine Given 04/27/2022 9:51 AM EDT 50 mcg Given 04/27/2022 9:44 AM EDT 50 mcg lidocaine (Xylocaine) 1% (10 mg/mL) injection Given 9:57 AM EDT 10 mg 10 mg 10 mg, Subcutaneous, ONCE, 1 dose, On Mon04/27/22 at 0915, For use in Interventional Radiology (IR) only for procedure with direct provider supervision and verbal order., Angio/IR (Day of Procedure), Routine lidocaine-EPINEPHrine (2% - 1:100,000) Given 04/27/2022 9:57 AM EDT 20 mLs injection vial 20 mL 20 mL, Intradermal, ONCE, 1 dose, On Mon04/27/22 at 0945, Warning Vesicant/Irritant Medication , Routine midazolam (pf) (Versed) (1 mg/mL) multi-dose Given 10:09 AM EDT 1 mg injection 0.5-1 mg 0.5-1 mg, Intravenous, EVERY 3 MIN PRN, Starting on Mon04/27/22 at 0848, Until Mon04/27/22 at 1055, Sleep, - Start dose; 1 mg (Reduce dose to 0.5 mg if history of sedation sensitivity). - Titration dose: 0.5 mg - 1 mg (based on patient response) every 3 minutes PRN to obtain RASS score of -3. Maximum dose: 1 mg per dose, 5 mg/hour. For use in Interventional Radiology (IR) only for procedural sedation with direct provider supervision and verbal order., Angio/IR (Day of Procedure), Routine Given 04/27/2022 9:52 AM EDT 1 mg Given 04/27/2022 9:44 AM EDT 1 mg sodium chloride 0.9 % (flush) (BD PosiFlush Given 04/27/2022 9:4 4 AM EDT 5 mLs Normal Saline 0.9) flush 5 mL 5 mL, Intravenous, 2 TIMES DAILY, First dose on Mon04/27/22 at 0915, Until Discontinued, Angio/IR (Day of Procedure), Routine documented in this encounter Care Teams Shellfish Sorter Relationship Specialty Start Date End Date Derek Torres PA PCP - General Internal Medicine 06/07/21 [address] [place] [address] documented as of this encounter
--- OUTSIDE RECORDS SUMMARY | 2022-10-07 18:37 | XMS_ITS | Encounter Summary ---
:1955 Author Organization [facility] [place] [address] Care Team Providers Name Role Phone Derek Torres Primary Care Provider Encounter Details Date Type Department Care Team Description 04/19/2022 Orders Only Hematology/Oncology at [address] RADIATION ONCOLOGY [place], [place] [phone] [place] [address] (Wo rk) Social History Tobacco Use Types [...] 10/21/2022 Hospital Encounter Radiology Adilene Link [address] MEDICAL ONCOLOGY [place], [place] [phone] (Wo rk) 10/21/2022 Appointment Radiology Adilene Link [address] ONCOLOGY [place], [place] [phone] (Wo rk) 10/21/2022 Appointment Radiology Adilene Link [address] MEDICAL ONCOLOGY [place], [place] [phone] (Wo rk) 10/25/2022 Office Visit Hematology and Oncology Alberto Guy MD [facility] HEMATOLOGY/[place] [address] MEDICAL ONCOLOGY [place], [place] [phone] 11/09/2022 Office Visit Urology Bobo Davis MD [facility] UROLOGY [place], [place] [address] (Wo rk) documented as of this encounter Visit Diagnoses Not on filedocumented in this encounter Care Teams Watch Assembler Relationship Specialty Start Date End Date Derek Torres PA PCP - General Internal Medicine 06/07/21 [address] [place], [place] [phone] documented as of this encounter
--- OUTSIDE RECORDS SUMMARY | 2022-10-07 18:37 | XMS_ITS | Encounter Summary ---
:1955 Author Organization [facility] Address [address] [place] [address] Care Team Providers Name Role Phone Derek Torres Primary Care Provider Reason for Visit Reason Onset Date Comments Labs Only 03/01/2022 Encounter Details Date Type Department Care Team Description 03/01/2022 Telephone Hematology/Oncology at Barb Dennis RN Labs Only [address] [phone] Social History Tobacco Use Types Packs/Day Years Used Date Former Smoker Cigarettes 0.25 0 Quit: 06/2020 Smokeless Tobacco: Never Used Alcohol Use Standard Drinks/Week Comments Not Currently 0 (1 standard drink = 0.6 oz pure alcoho l) Sex Assigned at Date Recorded Not on file documented as of this encounter Miscellaneous Notes Telephone Encounter - Barb Dennis RN - 03/01/2022 4:21 PM EDT Pt had lab work today. Dr. Bhatia reviewed and was pleased with results. Nothing for pt to do. Spoke with pt and reviewed results, she was pleased, she is due back to clinic 03/15/22 after PET, she agrees. documented in this encounter Plan of Treatment Upcoming Encounters Date Type Specialty Care Team Description 10/21/2022 Appointment Hematology and Oncology 10/21/2022 Hospital Encounter Radiology Adilene Link, [employer] [address] [place] [address] [place] [address] (Wo rk) 10/21/2022 Appointment Radiology Adilene Link[address] [facility] ONCOL[facility]Y [place], [place] [phone] (Wo rk) 10/21/2022 Appointment Radiology Adilene Link, [address] MEDICAL ONCOLOGY [facility], [place] [phone] (Wo rk) 10/25/2022 Office Visit Hematology and Oncology Alberto Guy MD [facility] HEMATOLOGY/[place] [address] [address] MEDICAL ONCOLOGY [place], [place] [phone] 11/09/2022 Office Visit Urology Bobo Davis MD [facility] DR UROLOGY [place], [place] [address] (Wo rk) documented as of this encounter Visit Diagnoses Not on filedocumented in this encounter Care Teams Lift Builder Whole Relationship Specialty Start Date End Date Derek Torres PA PCP - General Internal Medicine 06/07/21 [address] [place], [place] [address] documented as of this encounter
--- OUTSIDE RECORDS SUMMARY | 2022-10-07 18:37 | XMS_ITS | Encounter Summary ---
:1955 Author Organization [facility] [place] [address] Care Team Providers Name Role Phone Derek Torres Primary Care Provider Reason for Visit Diagnostic Test (Routine) - Closed Specialty Diagnoses / Procedures Referred By Contact Refer red To Contact Radiology Diagnoses Metastatic urothelial carcinoma Alberto Bhatia MD [facility] Rad Nuclear Med Procedures NM PET CT Skull Base to Mid-thigh [facility] HEMATOLOGY/[place] [address] [place] [address] Referral ID Status Reason Start Date Expiration Date Visits V isits Requested Authorized [id number] Closed Specialty 02/07/2022 08/10/2023 1 1 Service Requested Encounter Details Date Type Department Care Team Description 03/11/2022 Hospital Encounter Nuclear Medicine at Mike Bhatia Mary Hitchcock MD [facility] [place] [address] HEMATOLOGY/ONCOLOGY [phone] [place], [place] [address] (Wo rk) Social History Tobacco [...] TAKE ONE TABLET BY 0 06/2803/15/2022 hen (Milton) 5-325 mg MOUTH THREE TIMES A Tablet [...] and Oncology 10/21/2022 Hospital Encounter Radiology Adilene Link[address] MEDICAL ONCOLOGY [place], [place] [phone] (Kwadwo morataya) 10/21/2022 Appointment Radiology Adilene Link[address] [place] [place] [address] (Kwadwo morataya) 10/21/2022 Appointment Radiology Adilene Link[address] [place] [place] [address] (Kwadwo morataya) 10/25/2022 Office Visit Hematology and Oncology Alberto Guy MD [facility] DR HEMATOLOGY/[place] [address] Adilene Link, VOLUNTEER PATIENT REPRESENTATIVE [address] [place] [address] DR MEDICAL ONCOLOGY [place], [place] [address] 11/09/2022 Office Visit Urology Bobo Davis MD [facility] DR UROLOGY [place], [place] [address] (Wo rk) documented as of this encounter Procedures Procedure Name Priority Date/Time Associated Diagnosis Comme nts NM PET CT SKULL Routine 03/11/2022 2:39 PM Metastatic Result s for this BASE TO MID-THIGH EDT urothelial carcinoma pr ocedure are in (LCSR) the results section. documented in this encounter Visit Diagnoses Not on filedocumented in this encounter Administered Medications Inactive Administered Medications - up to 3 most recent administrations Medication Order MAR Action Action Date Dose Rate Site fludeoxyglucose (F-18) FDG Given 03/11/2022 1:10 PM 11.9 mCi Left Arm injection 0-20 mCi EDT 0-20 mCi, Intravenous, ONCE PRN, 1 dose, Starting on Mon03/11/22 at 1321, Until Mon03/11/22 at 1310, Per Protocol, Radiology Contrast, Routine documented in this encounter Care Teams Custom Bookbinder Relationship Specialty Start Date End Date Deerk Torres PA PCP - General Internal Medicine 06/07/21 [address] [place], [place] [phone] documented as of this encounter
--- OUTSIDE RECORDS SUMMARY | 2022-10-07 18:37 | XMS_ITS | Encounter Summary ---
:1955 Author Organization [facility] [place] [address] Care Team Providers Name Role Phone Derek Torres Primary Care Provider Reason for Visit Reason Comments Chemotherapy Cycle 4, Day 8 Enfortumab Treatment/Therapy Plan Authorization (Routine) - Authorized Specialty Diagnoses / Procedures Referred By Contact Refer red To Contact Diagnoses Urothelial carcinoma of kidney, right Malignant neoplasm of urinary bladder, unspecified site Neutropenia, drug-induced Metastatic urothelial carcinoma High risk medication use Alberto Bhatia MD [facility] Hem Onc Office Procedures TC PALONOSETRON HCL, 25MCG, INJECTION (ALOXI) TC ZOLEDRONIC ACID, 1 MG, INJECTION J2469 palonosetron (Aloxi) 0.25 MG J9177 enfortumab vedotin-ejfv (PADCEV) 125 mg J3489 ZOMETA [address] HEMATOLOGY/[place] [phone] Fax: Referral ID Status Reason Start Date Expiration Date Visits V isits Requested Authorized [id number] Authorized 05/31/2022 05/30/2023 20 20 Encounter Details Date Type Department Care Team Description 05/10/2022 Infusion Hematology Oncology at [facility] tastatic urothelial carcinoma; [facility] High risk medication use; [address] [place] [address] Neutropenia, drug-induced; [place], [place] [phone] Urothelial carcinoma of kidn ey, right; [phone] Malignant neopl asm of urinary bladder, unspecified [...] Sign Reading Time Taken Comments Blood Pressure 132/56 05/10/2022 9:11 AM EDT Pulse 78 05/10/2022 9:11 AM EDT Temperature 35.9 ??C (96.6 ??F) 05/10/2022 9:11 AM EDT Respiratory Rate 18 05/10/2022 9:11 AM EDT Oxygen Saturation 96% 05/10/2022 9:11 AM EDT Inhaled Oxygen Concentration - - Weight 101.4 kg (223 lb 9.6 oz) 05/10/2022 9:11 AM EDT Height 161.2 cm (5' 3.47) 05/10/2022 9:11 AM EDT Body Mass Index 39.03 05/10/2022 9:11 AM EDT documented in this encounter Progress Notes Kenisha Huerta RN - 05/10/2022 10:00 AM EDT INFUSION THERAPY ADMINISTRATION NOTES DIAGNOSIS: Metastatic urothelial cancer CYCLE #: Cycle 4, Day 8 - Enfortumab REASON FOR VISIT: To receive chemotherapy. SUBJECTIVE: Nancy states that on Monday she had a spell of intense cold shivers and sweats but no fever, felt very sick, tried drinking some water and vomited one time. This spell ended within an hour but still felt unwell for the remainder of the day. Did notice that her hair is starting to fall out in clumps. Is reporting a pain of 4 out of 10 which she states is tolerable. OBJECTIVE: Reported symptoms to provider. Provider reviewed labs and urine sample, found ready to treat. LAB DATA: WBC - 12.87, H/H - 11.9/37.4, Plt Ct - 266, ANC - 9.69, Lytes: NA+ - 137, K+ - 4.3, BUN/Cr- 43/1.7, Calcium - 9.5, Glucose - 105. Urine dip found within normal limits; with an elevation of protein at 30+. Labs reviewed by provider and considered within range to treat today. IV ACCESS: Accessed today prior to treatment. Nancy states she will not go to the second floor at [facility] to get her labs drawn via mediport. Port de accessed with 20cc NS and [...] and Oncology 10/21/2022 Hospital Encounter Radiology Adilene Link[address] MEDICAL ONCOLOGY [place], [place] [phone] (Wo rk) 10/21/2022 Appointment Radiology Adilene Link[address] ONCOLOGY [place], [place] [address] (Wo rk) 10/21/2022 Appointment Radiology Adilene Link[address] ONCOLOGY [place], [place] [address] (Wo rk) 10/25/2022 Office Visit Hematology and Oncology Alberto Guy MD [facility] HEMATOLOGY/[place] [address] MEDICAL ONCOLOGY [place], [place] [phone] 11/09/2022 Office Visit Urology Bobo Davis MD [facility] UROLOGY [place], [place] [address] (Wo rk) documented as of [...] Dose Rate Site enfortumab vedotin-ejfv New Bag 05/10/2022 11:09 AM EDT 120 mg 124 mL/hr (PADCEV) 120 mg in sodium chloride 0.9% 62 mL chemo infusion 120 mg, Intravenous, ONCE, 1 dose, On Mon05/10/22 at 1100, Administer over 30 Minutes, Dose Ordered = 125 mg (1.25 mg/kg). Pharmacist rounded dose per procedure. Warning Vesicant/Irritant Medication , This agent is restricted to outpatient use. Is this drug being given as an outpatient? Yes heparin (pf) (porcine) (100 units/mL) Given 05/10/2022 11:47 AM EDT 500 Units flush 5 mL syringe 500 Units 500 Units, Intravenous, ONCE PRN, Starting on Mon05/10/22 at 0937, Until Mon05/10/22 at 1409, Line Care, Refer to Intravenous (IV) Procedure: Accessing Implanted Vascular Access Devices (054) procedure and/or Intravenous (IV) Job Aid: Adult Flushing & Catheter Care (8669) job aid for additional information regarding guidelines and administration., Routine palonosetron (Aloxi) (0.05 mg/mL) injection Given 04/27 11:04 AM EDT 0.25 mg 0.25 mg 0.25 mg, Intravenous, ONCE, 1 dose, On Mon05/10/22 at 1000, Administer over 30 seconds. Administer prior to chemotherapy, Routine sodium chloride 0.9 % (flush) (BD PosiFlush Given 04/27 11:47 AM EDT 20 mLs Normal Saline 0.9) flush 5-20 mL 5-20 mL, Intravenous, EVERY 1 MIN PRN, Starting on Mon05/10/22 at 0937, Until Mon05/10/22 at 1409, Line Care, Flush pertains to all indwelling lines. Flush per protocol found in the job aid using the link provided on this medication record. Refer to Intravenous (IV) Job Aid: Adult Flushing & Catheter Care (5930) job aid for additional information regarding guidelines and administration., Routine sodium chloride 0.9% infusion New Bag 05/10/2022 10:20 AM EDT 100 mL/hr 100 mL/hr 100 mL/hr, Intravenous, CONTINUOUS, Starting on Mon05/10/22 at 1000, Until Mon05/10/22 at 1409 documented in this encounter Care Teams Rotary Cutter Feeder Relationship Specialty Start Date End Date Derek Torres PA PCP - General Internal Medicine 06/07/21 [address] [place] [address] documented as of this encounter
--- OUTSIDE RECORDS SUMMARY | 2022-10-07 18:37 | XMS_ITS | Encounter Summary ---
:1955 Author Organization [facility] [place] [address] Care Team Providers Name Role Phone Derek Torres Primary Care Provider Reason for Referral Diagnostic Test (Routine) - Closed Specialty Diagnoses / Procedures Referred By Contact Refer red To Contact Radiology Diagnoses Metastatic urothelial carcinoma Alberto Bhatia MD [facility] Rad Nuclear Med Procedures NM PET CT Skull Base to Mid-thigh [facility] HEMATOLOGY/[place] [address] [place] [address] Referral ID Status Reason Start Date Expiration Date Visits V isits Requested Authorized [id number] Closed Specialty 06/06/2022 07/05/2022 1 1 Service Requested Reason for Visit Diagnostic Test (Routine) - Closed Specialty Diagnoses / Procedures Referred By Contact Refer red To Contact Radiology Diagnoses Metastatic urothelial carcinoma Alberto Bhatia MD [facility] Rad Nuclear Med Procedures NM PET CT Skull Base to Mid-thigh [facility] HEMATOLOGY/[place] [address] [place] [address] Referral ID Status Reason Start Date Expiration Date Visits V isits Requested Authorized [id number] Closed Specialty 06/06/2022 07/05/2022 1 1 Service Requested Encounter Details Date Type Department Care Team Description 06/13/2022 Hospital Encounter Nuclear Medicine at [facility] Ebony Dominguez MD urothelial carcinoma [facility] SHIVANI Powers HEMATOLOGY/ONCOL [address] OGY [phone] [place] [address] Social History Tobacco Use Types Packs/Day Years [...] Pen Needle 32 0 02/18/2021 gauge x Needle blood sugar diagnostic 1 strip by [...] and Oncology 10/21/2022 Hospital Encounter Radiology Adilene Link[address] MEDICAL ONCOLOGY [place], [place] [phone] (Kwadwo morataya) 10/21/2022 Appointment Radiology Adilene Link [address] ONCOLOGY [place], [place] [phone] (Kwadwo morataya) 10/21/2022 Appointment Radiology Adilene Link, [address] MEDICAL ONCOLOGY [place], [place] [phone] (Kwadwo morataya) 10/25/2022 Office Visit Hematology and Oncology Alberto Guy MD [facility] DR HEMATOLOGY/[place] [address] [address] [place] [address] 11/09/2022 Office Visit Urology Bobo Davis MD [facility] DR UROLOGY [place], [place] [address] (Wo rk) documented as of this encounter Procedures Procedure Name Priority Date/Time Associated Diagnosis Comme nts NM PET CT SKULL Routine 06/13/2022 2:35 PM Metastatic Result s for this BASE TO MID-THIGH EDT urothelial carcinoma pr ocedure are in (LCSR) the results section. documented in this encounter Results NM PET CT Skull Base to Mid-thigh (06/13/2022 2:35 PM EDT) Anatomical Region Laterality Modality Positron Emission To mography (PET) Specimen (Source) Anatomical Location Collection Method / Collectio n Time Received Time / Laterality Volume Impressions 06/14/2022 10:39 AM EDT 1. ??No evidence of tumor recurrence and no definite active metastatic disease. 2. ??Small area of ill-defined FDG avidi ty in the anterior wall of the gallbladder, which in retrospect was pre sent with a higher degree of FDG avidity on prior PET/CT. This is favored to repr esent resolving inflammation. Attention on follow-up is recommended. I have personally reviewed the image(s) and the resident's interpretation and agree with the findings, Autumn Ramos at 06/14/2022 10:39 AM Thank you for letting us participate in the care of this patient. ??If you are a health care provider and have any questi ons regarding this report, please contact the number below. ??For patients who have questions please contact the health healthcare financial analyst that requested your imaging first. ? Narrative 06/14/2022 10:39 AM EDT EXAMINATION: NM PET CT STANDARD SKULL BASE TO MID-THIGH CLINICAL HISTORY: Urologic cancer, asses s treatment response - Include more detail below Restaging of metastatic urothelial carci noma Biopsy-proven skeletal metastases. Status post 4 cycles Padcev TECHNIQUE: Following IV injection of 18- fpkfpu-7-znapdfgchcaq (FDG) a standard uptake of approximately 60 minutes, a no ncontrast CT scan followed by a PET scan were acquired from the base of the skull to mid thighs. The noncontrast CT was used for anatomic localization and photo n attenuation correction of the PET scan. Blood glucose level: 126 (mg/dL) FDG dose: 15.1 mCi COMPARISON: PET/CT 03/11/2022 FINDINGS: HEAD/NECK: Normal activity in all soft tissue regio ns of the neck and visualized lower head. No lymphadenopathy. CHEST: Normal activity in all soft tissue regio ns. No lymphadenopathy. Right chest port is in place with tip te rminating in the RIGHT atrium. Small pericardial effusion. Coronary artery ca lcifications present. ABDOMEN/PELVIS: Small area of ill-defined increased FDG uptake in the anterior wall of the gallbladder (axial image 124), which in retrospect was present with a higher degree of FDG avidity on prior PET/CT of 03/11/2022. Status post RIGHT nephrectomy without ev idence of resection site recurrence. No abdominal lymphadenopathy. SKELETON/EXTREMITIES: No FDG avid osseous lesions. CT visualized sclerotic lesions in the b odies of S1 and L5, and the LEFT L4 posterior elements, with no significant activity above normal marrow background. The L5 and S1 lesions are intervally dec reased in intensity and appear more sclerotic in comparison to prior PET/CT. Procedure Note Jan Segura MD - 06/14/2022Formatti ng of this note might be different from the original. EXAMINATION: NM PET CT STANDARD SKULL BA SE TO MID-THIGH CLINICAL HISTORY: Urologic cancer, asses s treatment response - Include more detail below Restaging of metastatic urothelial carci noma Biopsy-proven skeletal metastases. Status post 4 cycles Padcev TECHNIQUE: Following IV injection of 18- crusqz-5-nbrtkdlfhhdg (FDG) a standard uptake of approximately 60 minutes, a no ncontrast CT scan followed by a PET scan were acquired from the base of the skull to mid thighs. The noncontrast CT was used for anatomic localization and photo n attenuation correction of the PET scan. Blood glucose level: 126 (mg/dL) FDG dose: 15.1 mCi COMPARISON: PET/CT 03/11/2022 FINDINGS: HEAD/NECK: Normal activity in all soft tissue regio ns of the neck and visualized lower head. No lymphadenopathy. CHEST: Normal activity in all soft tissue regio ns. No lymphadenopathy. Right chest port is in place with tip te rminating in the RIGHT atrium. Small pericardial effusion. Coronary artery ca lcifications present. ABDOMEN/PELVIS: Small area of ill-defined increased FDG uptake in the anterior wall of the gallbladder (axial image 124), which in retrospect was present with a higher degree of FDG avidity on prior PET/CT of 03/11/2022. Status post RIGHT nephrectomy without ev idence of resection site recurrence. No abdominal lymphadenopathy. SKELETON/EXTREMITIES: No FDG avid osseous lesions. CT visualized sclerotic lesions in the b odies of S1 and L5, and the LEFT L4 posterior elements, with no significant activity above normal marrow background. The L5 and S1 lesions are intervally dec reased in intensity and appear more sclerotic in comparison to prior PET/CT. IMPRESSION 1. No evidence of tumor recurrence and n o definite active metastatic disease. 2. Small area of ill-defined FDG avidity in the anterior wall of the gallbladder, which in retrospect was pre sent with a higher degree of FDG avidity on prior PET/CT. This is favored to repr esent resolving inflammation. Attention on follow-up is recommended. I have personally reviewed the image(s) and the resident's interpretation and agree with the findings, Autumn Ramos at 06/14/2022 10:39 AM Thank you for letting us participate in the care of this patient. If you are a health care provider and have any questi ons regarding this report, please contact the number below. For patients w ho have questions please contact the health healthcare financial analyst that requested your imaging first. 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 documented in this encounter Administered Medications Inactive Administered Medications - up to 3 most recent administrations Medication Order MAR Action Action Date Dose Rate Site fludeoxyglucose (F-18) FDG Given 06/13/2022 1:22 PM 15.1 mCi Left Arm injection 0-20 mCi EDT 0-20 mCi, Intravenous, ONCE PRN, 1 dose, Starting on Mon06/13/22 at 1330, Until Mon06/13/22 at 1322, Per Protocol, Radiology Contrast, Routine documented in this encounter Care Teams Dredge Pumper Relationship Specialty Start Date End Date Derek Torres PA PCP - General Internal Medicine 06/07/21 [address] [place] [address] documented as of this encounter
--- OUTSIDE RECORDS SUMMARY | 2022-10-07 18:37 | XMS_ITS | Encounter Summary ---
:1955 Author Organization [facility] [place] [address] Care Team Providers Name Role Phone Derek Torres Primary Care Provider Encounter Details Date Type Department Care Team Description 04/05/2022 Office Visit Hematology/Oncology Rah Bhatia MD [facility] DR HEMATOLOGY/[place] [address] Metastatic urothelial carcinoma; at [facility], Adilene Mock APRN [address] [place] [address] [place] [address] Bone metastases; [address] [place] [address] [place] [address] Social History Tobacco Use Types [...] Sign Reading Time Taken Comments Blood Pressure 153/66 04/05/2022 9:37 AM EDT Pulse 70 04/05/2022 9:37 AM EDT Temperature 36.1 ??C (96.9 ??F) 04/05/2022 9:37 AM EDT Respiratory Rate 20 04/05/2022 9:37 AM EDT Oxygen Saturation 99% 04/05/2022 9:37 AM EDT Inhaled Oxygen Concentration - - Weight 101.8 kg (224 lb 6.4 oz) 04/05/2022 9:37 AM EDT Height 161.2 cm (5' 3.47) 04/05/2022 9:37 AM EDT Body Mass Index 39.17 04/05/2022 9:37 AM EDT documented in this encounter Progress Notes Adilene Link, ENTRY LEVEL BUYER - 04/05/2022 10:30 AM EDT Images from the original note were not included. Hematology & Medical Oncology [address] [address] Nancy returns today to continue [...] ??? Bone metastases C79.51 HPI:Nancy Pichardo is 66 y.o. F referred by Dr. Renner for [...] retroperitoneal lymph nodes on January 22 at [facility]. Pathology is pending. PET scan demonstrated [...] with Lovenox and and antibiotics with ciprofloxacin. INTERVAL history(04/05/22):- Nancy returns to the [facility] today to continue treatment for metastatic urothelial carcinoma. Overall, she feels at her baseline. Still complains of intermittent backache, but does not need any painkillers. She is still getting PT/OT and is slowing improving. Denies any fevers, chills or signs of infection. No bladder issues. Denies any pain today. Edema has improved. Appetite is good. She feels well today. She did develop a rash after the last infusion but she was also on antibiotics for a UTI. She took benadryl and the rash improved quickly. She has a few faint areas of rash today on lower legs and chest. She was having more issues with reflux and restarted the carafate and that has resolved. No other focal complaints. PMH: No interval changes since last visit UTI was treated with antibiotics Completed antibiotics for UTI about a week ago. 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 Finalpathology- [id number] High grade UCC with negative margins UTI E. coli 100,000 colonies PTSD/depression, diabetes mellitus on insulin, arthritis, , hernia repair x3, anxiety, hysterectomy for urinary incontinence 2 to 3 years ago Social History: No interval changes since last visit [id number] smoking history, quit 6 months ago, does [...] Medications: Your Medications Accurate as of April 05, 2022 9:52 AM. If you have any questions, ask your nurse or doctor. Continued medications with new dosing Dose Details metoprolol tartrate 25 mg Tab Commonly known [...] 250 mg Cap Commonly known as: Keflex Refills: 0 CERAVE AM TOP Apply topically. Refills: 0 chlorthalidone 50 mg Tab Commonly known as: Hygroten 25 mg. 25 mg Refills: 0 cholecalciferol 1,000 unit [...] 3 Generic drug: insulin lispro Refills: 0 hydroCHLOROthiazide 50 mg Tab Commonly known as: Hydrodiuril Take 50 mg by mouth daily. 50 mg Refills: 0 hydrocortisone 2.5 % Crea Apply topically 2 times daily. Refills: 0 HYDROmorphone 4 mg Tab Commonly known as: Dilaudid TAKE ONE TABLET BY MOUTH EVERY 6 HOURS (REPLACING HYDROCODONE) Refills: 0 Insulin Tresiba FlexTouch U-100 100 unit/mL (3 mL) Inpn Inject 60 Units subcutaneously daily. Generic drug: insulin degludec 60 Units Refills: 0 Lokelma 5 gram Pwpk TAKE ONE PACKET BY MOUTH EVERY DAY DIRECTED FOR 2 DAYS Generic drug: sodium zirconium cyclosilicate Refills: 0 losartan 100 mg Tab Commonly [...] for nausea, vomiting, constipation or diarrhea. Musculoskeletal: Low back pain 5-8 out of 10 generalized myalgias. Hematological: Negative for adenopathy. Skin- Scattered rash [...] Thought content normal. Judgment: Judgment normal. BP 153/66 (Patient Position: Sitting) Pulse 70 Temp 36.1 ??C (96.9 ??F) (Temporal) Resp 20 Ht 161.2 cm (5' 3.47) Wt 101.8 kg (224 lb 6.4 oz) SpO2 99% BMI 39.17 kg/m?? Wt Readings from Last 3 Encounters: 04/05/22 101.8 kg (224 lb 6.4 oz) 03/22/22 101.1 kg (222 lb 12.8 oz) 03/15/22 100.2 kg (221 lb) Pathology: 06/16/21 ADDENDUM DISCUSSION PAS and BMS stains were evaluated for Block A17, demonstrating nodular ??glomerulosclerosis. Electronically signed by: ?MD Fadumo, Rick Lee Verified: ??06/24/2021 11:01 ??Pathologist Performed at: ??-[facility] [place], [place], [place] ? Surgical Pathology DIAGNOSIS Right kidney and ureter with paracaval and intracaval lymph nodes, excision: ??- Urothelial carcinoma. ?? (See SYNOPTIC REPORT), invasive into ? perinephric fat and renal parenchyma. 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 Electronically signed by: ?MD Fadumo, Rick Lee Verified: ??06/24/2021 10:58 ??Pathologist Performed at: ??[facility]Dept. of [place]ology, [place], [place] SYNOPTIC Specimen ?Procedure: ??Nephroureterectomy ?Specimen Laterality: [...] carcinoma with superimposed abundant degenerative changes Labs: 04/05/22- WBC-9.36 Hgb/Hct-11.4/37.2 Plt-283 ANC-6.72 Na-136 K+-4.7 [...] TB 0.4, AST 26, ALT 39, alkaline [id number], albumin 3.3, TSH 2.62, free T4 1.4. [...] protein 1+, blood moderate. Nitrites negative, RBC 10, bacteria many, 03/22/2021 vitamin B12 more than [...] treatment. She is interested to restart Padcev. Nancy returns today to continue palliative treatment with Padcev. She is feeling well today. No pain. # CHF: Increased pericardial effusion. Patient follows with stone trimmer follows with Dr. Ebony Beckham,had stress test on April 01, 2021 technically suboptimal, but no definite myocardial ischemia or evidence of prior infarction. EF 63% #Elevated creatinine/hyperkalemia:? Effect of antihypertensive therapy particularly losartan. Normaltoday. #Anemia: Hemoglobin 11.4. Asymptomatic We will monitor Multifactoral. It is slowly improving post surgery. Kidney insufficiency could contribute to anemia as well. It does contribute to her fatigue. Will monitor. # Hypertension-on losartan Losartan decreased to 50 mg day and she is now taking Chlorthalidone 50mg daily. BP has stabilized. #Bone sparing agent: Nancy has decided she would like to resume Zometa today. She had her last dose in November and had severe arthralgias post infusion. Overall she is doing better now and would like to try the infusions again. Zometa 3 mg dose adjusted to kidney function every 4 weeks. Continue calcium and vitamin D. Continue calcium citrate 500mg three times a day with meals. Continue Vitamin D supplement. #UTI- resolved # Rash- scattered. Continue steroid cream and/or benadryl as prescribed. PLAN: 1. Enfortumab vedotin D1C3 today 2. Resume Zometa 3mg IV today. Continue calcium/vitamin D supplements. 2. Follow up visit in 1 week with CBC,CMP and D8C3 of enfortumab vedotin. Nancy voiced understanding of the plan and [...] Oncology 10/21/2022 Hospital Encounter Radiology Adilene Link[address] [address] (Wo rk) 10/21/2022 Appointment Radiology Adilene Link[address] [place] [address] (Wo rk) 10/21/2022 Appointment Radiology Adilene Link[address] ONCOLOGY [place], [place] [address] [phone] (Wo rk) 10/25/2022 Office Visit Hematology and Oncology Alberto Guy MD [facility] DR HEMATOLOGY/[place] [address] [address] MEDICAL ONCOLOGY [place], [place] [address] [phone] 11/09/2022 Office Visit Urology Bobo Davis MD [facility] DR UROLOGY [place], [place] [address] (Wo rk) documented as of this encounter Visit Diagnoses Diagnosis Metastatic urothelial carcinoma 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 Bone metastases Secondary malignant neoplasm of bone and bone marrow Hyperkalemia Hyperpotassemia documented in this encounter Care Teams Steam Cleaner Relationship Specialty Start Date End Date Derek Torres PA PCP - General Internal Medicine 06/07/21 Mahnaz CARLSON [address] [place] [id number] documented as of this encounter
--- OUTSIDE RECORDS SUMMARY | 2022-10-07 18:37 | XMS_ITS | Encounter Summary ---
:1955 Author Organization [facility] Address [facility] [address] [place] [address] Care Team Providers Name Role Phone Derek Torres Primary Care Provider Encounter Details Date Type Department Care Team Description 03/15/2022 Office Visit Hematology/Oncology Rah Shelton MD [facility] DR HEMATOLOGY/[place] [address] [facility] [address] [place] [address] [place] [address] Bone metastases; [address] Encounter for antineoplastic chemotherapy [place] [address] Social History Tobacco Use Types [...] Sign Reading Time Taken Comments Blood Pressure 130/56 03/15/2022 9:26 AM EDT Pulse 71 03/15/2022 9:26 AM EDT Temperature 35.6 ??C (96 ??F) 03/15/2022 9:26 AM EDT Respiratory Rate 16 03/15/2022 9:26 AM EDT Oxygen Saturation 99% 03/15/2022 9:26 AM EDT Inhaled Oxygen Concentration - - Weight 100.2 kg (221 lb) 03/15/2022 9:26 AM EDT Height 161.2 cm (5' 3.47) 03/15/2022 9:26 AM EDT Body Mass Index 38.58 03/15/2022 9:26 AM EDT documented in this encounter Progress Notes Alberto Shelton MD - 03/15/2022 10:00 AM EDT Images from the original note were not included. Hematology & Medical Oncology [address] [address] Nancy returns today to continue [...] retroperitoneal lymph nodes on January 22 at [facility]. Pathology is pending. PET scan demonstrated increased [...] Lovenox and and antibiotics with ciprofloxacin. INTERVAL history(03/15/22):- Nancy returns to the [facility] today for follow-up on metastatic urothelial carcinoma, discussion of restaging PET scan and to continue treatment for metastatic urothelial carcinoma. Overall, she feels at her baseline. Still complains of intermittent backache, but does not need any painkillers. Actually, she stopped hydromorphone as it was messing up her bowel movements. Denies any pain today. No fevers or chills. PMH: No interval changes since last visit UTI was treated with antibiotics Completed antibiotics for UTI about a week ago. 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 Finalpathology- [id number] High grade UCC with negative margins UTI E. coli 100,000 colonies PTSD/depression, diabetes mellitus on insulin, arthritis, , hernia repair x3, anxiety, hysterectomy for urinary incontinence 2 to 3 years ago Social History: No interval changes since last visit [id number] smoking history, quit 6 months ago, does [...] dressing Medications: Your Medications Accurate as of March 15, 2022 9:36 AM. If you have any questions, ask [...] CERAVE AM TOP Apply topically. Refills: 0 cholecalciferol 1,000 unit Tab Commonly known as: Vitamin D3 Take 1,000 Units by mouth Daily. 1,000 Units Refills: 0 furosemide 20 mg Tab Commonly [...] U-100 100 unit/mL (3 mL) Inpn Inject 52 Units subcutaneously daily. Generic drug: insulin degludec 52 Units Refills: 0 losartan 100 mg Tab [...] 2 tablet Quantity: 120 tablet Refills: 11 sodium phosphates Enem Commonly known as: FLEET Place 1 enema rectally once as needed. 1 enema Refills: 0 STOPPED Medications HYDROcodone-acetaminophen 5-325 mg Tab Commonly known as: Ely Stopped by: ALBERTO SHELTON MD HYDROmorphone 2 mg Tab Commonly known as: Dilaudid Stopped by: ALBERTO SHELTON MD LORazepam 0.5 mg Tab Commonly known as: Ativan Stopped by: ALBERTO SHELTON MD Review of Systems Constitutional: Negative for chills [...] Thought content normal. Judgment: Judgment normal. BP 130/56 (Patient Position: Sitting) Pulse 71 Temp 35.6 ??C (96 ??F) (Temporal) Resp 16 Ht 161.2 cm (5' 3.47) Wt 100.2 kg (221 lb) SpO2 99% BMI 38.58 kg/m?? Wt Readings from Last 3 Encounters: 03/15/22 100.2 kg (221 lb) 01/25/22 100.6 kg (221 lb 12.8 oz) 01/11/22 103.9 kg (229 lb) Pathology: 06/16/21 ADDENDUM DISCUSSION PAS and BMS stains were evaluated for Block A17, demonstrating nodular ??glomerulosclerosis. Electronically signed by: ?MD Fadumo, Rick Lee Verified: ??06/24/2021 11:01 ??Pathologist Performed at: ??-[facility] Dept. of Pathology, [place], [place] ? Surgical Pathology DIAGNOSIS Right kidney and ureter with paracaval and intracaval lymph nodes, excision: ??- Urothelial carcinoma. ?? (See SYNOPTIC REPORT), invasive into ? perinephric fat and renal parenchyma. 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 Electronically signed by: ?MD Thorne Jason R. Verified: ??06/24/2021 10:58 ??Pathologist Performed at: ??-[facility]Dept. of Pathology, [place], [place] SYNOPTIC Specimen ?Procedure: ??Nephroureterectomy ?Specimen Laterality: [...] carcinoma with superimposed abundant degenerative changes Labs: 03/15/2022 sodium 134, potassium 5.4, BUN 57, creatinine 1.9, glucose 217, calcium 9.0, TB 0.3,AST 12, ALT 27, alkaline phosphatase 133, total protein 7.8, albumin 3.2, TSH 3.6, free T4 1.08. WBC10.57, hemoglobin 11.9, platelet count 326, ANC 7.8. 01/25/2022 BUN 47, creatinine 1.6, sodium 133, potassium 6.1, AST 17, ALT 24, magnesium 2.4, WBC 10.2,hemoglobin 12.7, platelet count 295, ANC 7.7. 01/11/2022 WBC 8.69, hemoglobin 12, platelet count 248, ANC 6.09, sodium 136, potassium 5.1, BUN 33, creatinine 1.5, glucose 174, calcium 8.6, magnesium 2.4, TB 0.4, AST 26, ALT 39, alkaline [id number], albumin 3.3, TSH 2.62, free T4 1.4. [...] treatment. She is interested to restart Padcev. We will proceed with day 8 of second cycle today. # CHF: Increased pericardial effusion. Patient follows with institutional cook follows with Dr. Ebony Beckham,had stress test on April 01, 2021 technically suboptimal, but no definite myocardial ischemia or evidence of prior infarction. EF 63% #Elevated creatinine/hyperkalemia:? Effect of antihypertensive therapy particular losartan. We will monitor #Anemia: Hemoglobin is normal. We will monitor Multifactoral. It is slowly improving post surgery. Kidney insufficiency could contribute to anemia as well. It does contribute to her fatigue. Will monitor. # Hypertension-on losartan 171/67 Now taking Losartan 100mg daily. BP has stabilized. #Bone sparing agent: Zometa 3 mg dose adjusted to kidney function every 4 weeks. Continue calcium and vitamin D. Recieved bone sparing therapy zoledronic acid. Continue calcium citrate 500mg three times a day with meals. Continue Vitamin D supplement. #UTI- on antibiotics prescribed by PCP. # Rash- scattered. Continue steroid cream as prescribed. PLAN: 1. Enfortumab vedotin D8C2 today 2. Follow up visit in 1 weeks with CBC,CMP and D15C2 of enfortumab Nancy voiced understanding of the plan and was given an opportunity to ask questions which I answered to the best of my ability. Nancy understands she can call the clinic between visits with any questions/concerns or new symptoms. documented in this encounter Plan of Treatment Upcoming Encounters Date Type Specialty Care Team Description 10/21/2022 Appointment Hematology and Oncology 10/21/2022 Hospital Encounter Radiology Adilene Link[address] MEDICAL ONCOLOGY [place], [place] [id number] (Wo rk) 10/21/2022 Appointment Radiology Adilene Link [address] [place] [address] (Wo rk) 10/21/2022 Appointment Radiology Adilene Link [address] [place] [address] (Wo rk) 10/25/2022 Office Visit Hematology and Oncology Alberto Guy MD [facility] DR HEMATOLOGY/[place] [address] Adilene Link [address] MEDICAL ONCOLOGY [place], [place] [address] [phone] 11/09/2022 Office Visit Urology Bobo Davis MD [facility] UROLOGY [place], [place] [address] (Wo rk) documented as of this encounter Visit Diagnoses Diagnosis Metastatic urothelial carcinoma 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 Bone metastases Secondary malignant neoplasm of bone and bone marrow Encounter for antineoplastic chemotherap y and immunotherapy documented in this encounter Care Teams Picking Table Worker Relationship Specialty Start Date End Date Derek Torres PA PCP - General Internal Medicine 06/07/21 Mahnaz [address]LSON [address] [place] [address] documented as of this encounter
--- OUTSIDE RECORDS SUMMARY | 2022-10-07 18:37 | XMS_ITS | Encounter Summary ---
:1955 Author Organization [place] [address] Care Team Providers Name Role Phone Derek Torres Primary Care Provider Encounter Details Date Type Department Care Team Description 04/05/2022 Notes Only Hematology/Oncology at Julia Morris MSW [facility] OFFICE OF CARE [address] [place] [phone] Social History Tobacco Use Types Packs/Day Years Used Date Former Smoker Cigarettes 0.25 0 Quit: 06/2020 Smokeless Tobacco: Never Used Alcohol Use Standard Drinks/Week Comments Not Currently 0 (1 standard drink = 0.6 oz pure alcoho l) Sex Assigned at Date Recorded Not on file documented as of this encounter Progress Notes Julia Morris MSW - 04/05/2022 12:00 PM EDT Follow up with pt during her infusion visit today. Pt indicated she is managing the best she can at home. She feels well supported by her . She finds her [facility] services, especially PT and OT, veryhelpful. They have increased her SPA COORDINATOR visits to 3 times a week now. Pt indicated she is coping the best she can. She shared she received beautiful rainbow roses from her young twin granddaughters which perked up her spirits. Offered support. Reminded pt of ADMINISTRATIVE PROCESSOR availability and contact information. Will continue to follow for support and resources. Brief assessment Supportive Counseling documented in this encounter Plan of Treatment Upcoming Encounters Date Type Specialty Care Team Description 10/21/2022 Appointment Hematology and Oncology 10/21/2022 Hospital Encounter Radiology Adilene Link, [address] [place] [address] (Wo rk) 10/21/2022 Appointment Radiology Adilene Link[address] [place] [address] (Wo rk) 10/21/2022 Appointment Radiology Adilene Link[address] [place] [address] (Wo rk) 10/25/2022 Office Visit Hematology and Oncology Alberto Guy MD [facility] DR HEMATOLOGY/[place] [address] [address] MEDICAL ONCOLOGY [place], [place] [id number] 11/09/2022 Office Visit Urology Bobo Davis MD [facility] DR UROLOGY [place], [place] [address] (Wo rk) documented as of this encounter Visit Diagnoses Not on filedocumented in this encounter Care Teams Chief Operator Hydroformer Relationship Specialty Start Date End Date Derek Torres PA PCP - General Internal Medicine 06/07/21 Mahnaz CARLSON [address] [place], [place] [id number] documented as of this encounter
--- OUTSIDE RECORDS SUMMARY | 2022-10-07 18:37 | XMS_ITS | Encounter Summary ---
:1955 Author Organization [facility] [place] [address] Care Team Providers Name Role Phone Derek Torres Primary Care Provider Reason for Referral Diagnostic Test (Routine) - Closed Specialty Diagnoses / Procedures Referred By Contact Refer red To Contact Radiology Diagnoses Metastatic urothelial carcinoma Alberto Bhatia MD [facility] Rad Nuclear Med Procedures NM PET CT Skull Base to Mid-thigh [facility] HEMATOLOGY/[place] [address] [place] [address] Referral ID Status Reason Start Date Expiration Date Visits V isits Requested Authorized [id number] Closed Specialty 06/06/2022 07/05/2022 1 1 Service Requested Encounter Details Date Type Department Care Team Description 05/17/2022 Office Visit Hematology/Oncology Rah Bhatia MD [facility] HEMATOLOGY/[place] [address] Metastatic urothelial at [facility] Ankita Pierre APRN [facility] [place] [address] carcinoma (Primary Dx) [address] [place] [phone] Social History Tobacco Use Types Packs/Day Years Used Date Former Smoker Cigarettes 0.25 0 Quit: 06/2020 Smokeless Tobacco: Never Used Alcohol Use Standard Drinks/Week Comments Not Currently 0 (1 standard drink = 0.6 oz pure alcoho l) Sex Assigned at Date Recorded Not on file documented as of this encounter Last Filed Vital Signs Vital Sign Reading Time Taken Comments Blood Pressure 152/65 05/17/2022 9:44 AM EDT Pulse 75 05/17/2022 9:44 AM EDT Temperature 36 ??C (96.8 ??F) 05/17/2022 9:44 AM EDT Respiratory Rate 16 05/17/2022 9:44 AM EDT Oxygen Saturation 98% 05/17/2022 9:44 AM EDT Inhaled Oxygen Concentration - - Weight 100.2 kg (221 lb) 05/17/2022 9:44 AM EDT Height 161.2 cm (5' 3.47) 05/17/2022 9:44 AM EDT Body Mass Index 38.58 05/17/2022 9:44 AM EDT documented in this encounter Progress Notes Alberto Bhatia MD - 05/17/2022 9:30 AM EDT Images from the original note were not included. Hematology & Medical Oncology [address] [phone] Nancy returns today to continue treatment for [...] retroperitoneal lymph nodes on January 22 at [facility]. Pathology is pending. PET scan demonstrated [...] her hair as. ROS is otherwise negative. PMH: No interval changes since last visit UTI was treated with antibiotics Completed antibiotics for UTI about a week ago. 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 Finalpathology- [id number] High grade UCC with negative margins UTI E. coli 100,000 colonies PTSD/depression, diabetes mellitus on insulin, arthritis, , hernia repair x3, anxiety, hysterectomy for urinary incontinence 2 to 3 years ago Social History: No interval changes since last visit [id number]-[id number] smoking history, quit 6 months ago, does [...] Medications: Your Medications Accurate as of May 17, 2022 10:00 AM. If you have any questions, ask [...] Thought content normal. Judgment: Judgment normal. BP 152/65 (Patient Position: Sitting) Pulse 75 Temp 36 ??C (96.8 ??F) (Temporal) Resp 16 Ht 161.2 cm (5' 3.47) Wt 100.2 kg (221 lb) SpO2 98% BMI 38.58 kg/m?? Wt Readings from Last 3 Encounters: 05/17/22 100.2 kg (221 lb) 05/10/22 101.4 kg (223 lb 9.6 oz) 05/03/22 102.2 kg (225 lb 3.2 oz) Pathology: 06/16/21 ADDENDUM DISCUSSION PAS and BMS stains were evaluated for Block A17, demonstrating nodular ??glomerulosclerosis. Electronically signed by: ?MD Thorne Jason R. Verified: ??06/24/2021 11:01 ??Pathologist Performed at: ??-[facility], [place], [place] ? Surgical Pathology DIAGNOSIS Right kidney and ureter with paracaval and intracaval lymph nodes, excision: ??- Urothelial carcinoma. ?? (See SYNOPTIC REPORT), invasive into ? perinephric fat and renal parenchyma. 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 Electronically signed by: ?MD Thorne Jason R. Verified: ??06/24/2021 10:58 ??Pathologist Performed at: ??[facility]pt. [place], [place], [place] SYNOPTIC Specimen ?Procedure: ??Nephroureterectomy ?Specimen Laterality: [...] carcinoma with superimposed abundant degenerative changes Labs: 05/17/2022 sodium 135, potassium 4.3, BUN 39, [...] ALT-31 Alk phos-120 Albumin-3.0 TSH-2.77 Free T4-1.20 4/26/22- WBC-8.37 Hgb/Hct-11.5/37.1 Plt-253 ANC-5.95 Na-134 K+-5.3 BUN/Cr-57/1.6 [...] TB 0.4, AST 26, ALT 39, alkaline liaeykxzimt09, albumin 3.3, TSH 2.62, free T4 1.4. [...] hemoglobin 10.6, platelet count 253, ANC 5.79. 9/28/21- WBC-8.46 Hgb/Hct 10.4/32.9 Plt-254 ANC-6.33 Na-141 K+-5.1 [...] with day 8 of cycle 3 today 05/17/22 She will continue with palliative treatment with Padcev. She continues to feel well. No new pain. Labs are acceptable for treatment. We will continue to monitor her Glu. I. She had a port placed. We will plan to do a restaging PET scan in 4-5 weeks. She will return in 2 weeks for her next treatment. She is comfortable with this plan. # CHF: Increased pericardial effusion. Patient follows with test bore helper follows with Dr. Ebony Beckham,had stress test [...] benadryl as prescribed. PLAN: 1. Enfortumab vedotin D15 C4 today 2. Zometa 3mg IV every 4-5 weeks. Continue calcium/vitamin D supplements. 3. Follow up visit in 2 week with CBC,CMP and D1 C5 of enfortumab vedotin and Zometa. 4. PET scan in 4-5 weeks Nancy voiced understanding of the plan and was given an opportunity to ask questions which I answered to the best of my ability. Nancy understands she can call the clinic between visits with any questions/concerns or new symptoms. documented in this encounter Plan of Treatment Upcoming Encounters Date Type Specialty Care Team Description 10/21/2022 Appointment Hematology and Oncology 10/21/2022 Hospital Encounter Radiology Adilene Link[address] MEDICAL ONCOLOGY [place], [place] [phone] (Wo rk) 10/21/2022 Appointment Radiology Adilene Link [address] [place] [address] (Wo rk) 10/21/2022 Appointment Radiology Adilene Link[address] ONCOLOGY [place], [place] [address] [phone] (Wo rk) 10/25/2022 Office Visit Hematology and Oncology Alberto Guy MD [facility] DR HEMATOLOGY/[place] [address] Adilene Link [address] MEDICAL ONCOLOGY [place], [place] [address] 11/09/2022 Office Visit Urology Bobo Davis MD [facility] UROLOGY [place], [place] [address] (Wo rk) documented as of this encounter Results NM PET CT Skull [...] who have questions please contact the health pediatric care coordinator that requested your imaging first. ? Narrative 06/14/2022 10:39 AM EDT EXAMINATION: NM PET CT STANDARD SKULL BASE TO MID-THIGH CLINICAL HISTORY: Urologic cancer, asses s treatment response - Include more detail below Restaging of metastatic urothelial carci noma Biopsy-proven skeletal metastases. Status post 4 cycles Padcev TECHNIQUE: Following IV injection of 18- ucfliq-1-zlwofrgicvuh (FDG) a standard uptake of approximately 60 [...] Padcev TECHNIQUE: Following IV injection of 18- dggsjd-2-kpowkkpyjipl (FDG) a standard uptake of approximately 60 [...] ho have questions please contact the health pediatric care coordinator that requested your imaging first. 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
--- OUTSIDE RECORDS SUMMARY | 2022-10-07 18:37 | XMS_ITS | Encounter Summary ---
:1955 Author Organization [facility] [place] [address] Care Team Providers Name Role Phone Derek Torres Primary Care Provider Reason for Visit Reason Comments Chemotherapy Cycle 2 Day 8 Enfortumab Treatment/Therapy Plan Authorization (Routine) [...] (PADCEV) 125 mg [id number] ZOMETA [address] HEMATOLOGY/[place] [phone] Fax: Referral ID Status Reason Start Date Expiration Date Visits V isits Requested Authorized [id number] Authorized 05/31/2022 05/30/2023 20 20 Encounter Details Date Type Department Care Team Description 03/15/2022 Infusion Hematology Oncology at [facility] tastatic urothelial carcinoma; [facility] High risk medication use; [address] [place] [address] Neutropenia, drug-induced; [place], [place] [phone] Urothelial carcinoma of kidn ey, right; [phone] Malignant neopl asm of urinary bladder, unspecified site Social History Tobacco Use Types Packs/Day Years Used Date Former Smoker Cigarettes 0.25 0 Quit: 06/2020 Smokeless Tobacco: Never Used Alcohol Use Standard Drinks/Week Comments Not Currently 0 (1 standard drink = 0.6 oz pure alcoho l) Sex Assigned at Date Recorded Not on file documented as of this encounter Progress Notes Ledy Franklin RN - 03/15/2022 10:30 AM EDT INFUSION THERAPY ADMINISTRATION NOTES DIAGNOSIS: Metastatic urothelial cancer CYCLE #: Cycle 2, Day 8 - Enfortumab REASON FOR VISIT: To receive chemotherapy. Zometa on hold. SUBJECTIVE: Nancy offers no complaints. She has had some time off treatment. OBJECTIVE: Oncology Vitals 03/15/2022 Weight (kg) 100.245 kg Weight (lb) 221 lb Height 161.2 cm BSA (Calculated - sq m) 2.12 BMI (Calculated) 38.57 Temp 96 Temp src 101 Pulse 71 Heart Rate Source Right;NIBP Resp 16 BP 130/56 BP Location Right arm Patient Position Sitting SpO2 99 Pain Level 4 Karnofsky Score 70 Sensory Neuropathy Grade 2 LAB DATA: WBC 10.57, H/H 11.9/38.6, Plt Ct 326, ANC 7.80, K 5.4, Na 134, BUN/Cr 57/1.9, Calcium 9.0,TSH 3.60, FT4 1.08 IV ACCESS: PIV Pre administration: Chemotherapy orders independently verified for drug name, route, and dosage per patient's height, weight and BSA by Ledy Franklin RN and Staff Pharmacist(s). REACTIONS (DESCRIPTION, TIME, INTERVENTION AND EFFECTIVENESS) none ASSESSMENT: Nancy was awake, alert and tolerated treatment well. PIV discontinued. PLAN: Return to clinic in one week. documented in this encounter Plan of Treatment Upcoming Encounters Date Type Specialty Care Team Description 10/21/2022 Appointment Hematology and Oncology 10/21/2022 Hospital Encounter Radiology Adilene Link, AUDIO VISUAL ENGINEER [address] [place] [address] [place] [address] (Wo rk) 10/21/2022 Appointment Radiology Adilene Link[address] MEDICAL ONCOLOGY [place], [place] [phone] (Wo rk) 10/21/2022 Appointment Radiology Adilene Link [address] MEDICAL ONCOLOGY [place], [place] [phone] (Wo rk) 10/25/2022 Office Visit Hematology and Oncology Alberto Guy MD [facility] DR HEMATOLOGY/[place] [address] Adilene Link [address] MEDICAL ONCOLOGY [place], [place] [phone] 11/09/2022 Office Visit Urology Bobo Davis MD [facility] DR UROLOGY [place], [place] [address] (Wo rk) documented as of [...] Dose Rate Site enfortumab vedotin-ejfv New Bag 03/15/2022 11:55 AM EDT 120 mg 124 mL/hr (PADCEV) 120 mg in sodium chloride 0.9% 62 mL chemo infusion 120 mg, Intravenous, ONCE, 1 dose, On Mon03/15/22 at 1145, Administer over 30 Minutes, Warning Vesicant/Irritant Medication Dose Ordered = 125 mg (1.25 mg/kg). Pharmacist rounded dose per procedure., This agent is restricted to outpatient use. Is this drug being given as an outpatient? Yes palonosetron (Aloxi) (0.05 mg/mL) injection Given 02/25 10:42 AM EDT 0.25 mg 0.25 mg 0.25 mg, Intravenous, ONCE, 1 dose, On e 03/15/22 at 1045, Administer over 30 seconds. Administer prior to chemotherapy, Routine sodium chloride 0.9% infusion New Bag 03/15/2022 10:43 AM EDT 100 mL/hr 100 mL/hr 100 mL/hr, Intravenous, CONTINUOUS, Starting on Mon03/15/22 at 1045, Until Mon03/15/22 at 1624 documented in this encounter Care Teams Arborist Climber Relationship Specialty Start Date End Date Derek Torres PA PCP - General Internal Medicine 06/07/21 [address] [place] [address] documented as of this encounter
--- OUTSIDE RECORDS SUMMARY | 2022-10-07 18:37 | XMS_ITS | Encounter Summary ---
:1955 Author Organization [facility] [place] [address] Care Team Providers Name Role Phone Derek Torres Primary Care Provider Encounter Details Date Type Department Care Team Description 03/01/2022 Orders Only Hematology/Oncology Adilene Link, [place] static urothelial at [facility] MANAGER [address] [place] [address] [place], [place] [phone] (Wo rk) Social History Tobacco Use Types [...] Oncology 10/21/2022 Hospital Encounter Radiology Adilene Link, [address] MEDICAL ONCOLOGY [place], [place] [phone] (Wo rk) 10/21/2022 Appointment Radiology Adilene Link, [address] MEDICAL ONCOLOGY [place], [place] [phone] (Wo rk) 10/21/2022 Appointment Radiology Adilene Link[address] MEDICAL ONCOLOGY [place], [place] [phone] (Wo rk) 10/25/2022 Office Visit Hematology and Oncology Alberto Guy MD [facility] DR HEMATOLOGY/[place] [address] Adilene Link, [address] MEDICAL ONCOLOGY [place], [place] [phone] 11/09/2022 Office Visit Urology Bobo Davis MD [facility] UROLOGY [place], [place] [address] (Wo rk) Scheduled Orders Name Type Priority Associated Diagnoses Order S chedule CBC (with Diff) Lab STAT Metastatic urothelial As Needed for 20 carcinoma Occurrences sta rting 03/01/2022 unti l 03/01/2023 Comprehensive metabolic Lab STAT Metastatic urothe lial As Needed for 20 panel (non-fasting) carcinoma Occurren cristhian starting 03/01/2022 unti l 03/01/2023 documented as of this encounter Visit Diagnoses Diagnosis Metastatic urothelial carcinoma 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
--- OUTSIDE RECORDS SUMMARY | 2022-10-07 18:37 | XMS_ITS | Encounter Summary ---
:1955 Author Organization [facility] Address [facility] [place] [address] Care Team Providers Name Role Phone Derek Torres Primary Care Provider Reason for Visit Reason Onset Date Comments Follow-up 06/02/2022 UTI Encounter Details Date Type Department Care Team Description 06/02/2022 Telephone Hematology/Oncology at Barb Dennis RN Follow-up (UTI) [address] [phone] Social History Tobacco Use Types Packs/Day Years Used Date Former Smoker Cigarettes 0.25 0 Quit: 06/2020 Smokeless Tobacco: Never Used Alcohol Use Standard Drinks/Week Comments Not Currently 0 (1 standard drink = 0.6 oz pure alcoho l) Sex Assigned at Date Recorded Not on file documented as of this encounter Miscellaneous Notes Telephone Encounter - Barb Dennis RN - 06/02/2022 3:18 PM EDT Called Nancy to check in on her as workers compensation legal secretary had followed up with appointments for her. Nancy statesjosiee felt she had UTI and called PCP who started her on keflex today 250 mg twice a day for 10 days. She is due back next week for next infusion. documented in this encounter Plan of Treatment Upcoming Encounters Date Type Specialty Care Team Description 10/21/2022 Appointment Hematology and Oncology 10/21/2022 Hospital Encounter Radiology Adilene Link, SENIOR ADMINISTRATIVE ASSISTANT [address] [place] [address] [place] [address] (Wo rk) 10/21/2022 Appointment Radiology Adilene Link[address] ONCOLOGY [place], [place] [phone] (Wo rk) 10/21/2022 Appointment Radiology Adilene Link[address] ONCOLOGY [place], [place] [address] (Wo rk) 10/25/2022 Office Visit Hematology and Oncology Alberto Guy MD [facility] DR HEMATOLOGY/[place] [address] [address] MEDICAL ONCOLOGY [place], [place] [phone] 11/09/2022 Office Visit Urology Bobo Davis MD [facility] DR UROLOGY [place], [place] [address] (Wo rk) documented as of this encounter Visit Diagnoses Not on filedocumented in this encounter Care Teams Marine Specialist Relationship Specialty Start Date End Date Derek Torres PA PCP - General Internal Medicine 06/07/21 [address] [place], [place] [address] documented as of this encounter
--- OUTSIDE RECORDS SUMMARY | 2022-10-07 18:37 | XMS_ITS | Encounter Summary ---
:1955 Author Organization [facility] [address] Care Team Providers Name Role Phone Derek Torres Primary Care Provider Encounter Details Date Type Department Care Team Description 05/09/2022 Orders Only Hematology/Oncology at [address] RADIATION ONCOLOGY [place], [place] [phone] [place] [address] (Wo rk) Social History Tobacco [...] Oncology 10/21/2022 Hospital Encounter Radiology Adilene Link [address] MEDICAL ONCOLOGY [place], [place] [phone] (Wo rk) 10/21/2022 Appointment Radiology Adilene Link [address] ONCOLOGY [place], [place] [phone] (Wo rk) 10/21/2022 Appointment Radiology Adilene Link [address] MEDICAL ONCOLOGY [place], [place] [phone] (Wo rk) 10/25/2022 Office Visit Hematology and Oncology Alberto Guy MD [facility] HEMATOLOGY/[place] [address] [address] MEDICAL ONCOLOGY [place], [place] [address] 11/09/2022 Office Visit Urology Bobo Davis MD [facility] UROLOGY [place], [place] [address] (Wo rk) documented as of this encounter Visit Diagnoses Not on filedocumented in this encounter Care Teams Oxidation Engineer Relationship Specialty Start Date End Date Derek Torres PA PCP - General Internal Medicine 06/07/21 [address] [place], [place] [address] documented as of this encounter
--- OUTSIDE RECORDS SUMMARY | 2022-10-07 18:37 | XMS_ITS | Encounter Summary ---
:1955 Author Organization [facility] [place] [address] Care Team Providers Name Role Phone Derek Torres Primary Care Provider Encounter Details Date Type Department Care Team Description 03/22/2022 Notes Only Hematology/Oncology at Juila Morris [facility] OFFICE OF CARE [address] [place] [phone] Social History Tobacco Use Types Packs/Day Years Used Date Former Smoker Cigarettes 0.25 0 Quit: 06/2020 Smokeless Tobacco: Never Used Alcohol Use Standard Drinks/Week Comments Not Currently 0 (1 standard drink = 0.6 oz pure alcoho l) Sex Assigned at Date Recorded Not on file documented as of this encounter Progress Notes Julia Morris MSW - 03/22/2022 8:57 AM EDT Follow up with pt during her infusion visit today. Pt indicated she is managing day to day at home with help from her and services. She is appreciative of the care her gives her as he is also working full roll inspector. Her daughter is in regular contact with her and she is able to face timeher 4 year old twin granddaughters. She continues with nursing, OT and CLINICAL STAFF RN services. Talked about pt's dog who gives her a lot of comfort. She is concerned because when she feels unwellthe dog feels sick. The dog is her constant guide plant. Pt did not identify any new needs today. Offered support. Reminded pt of [facility] availability and contact information. Will continue to follow. Brief assessment Supportive Counseling documented in this encounter Plan of Treatment Upcoming Encounters Date Type Specialty Care Team Description 10/21/2022 Appointment Hematology and Oncology 10/21/2022 Hospital Encounter Radiology Adilene Link[address] ONCOLOGY [place], [place] [address] [phone] (Wo rk) 10/21/2022 Appointment Radiology Adilene Link[address] ONCOLOGY [place], [place] [address] [phone] (Wo rk) 10/21/2022 Appointment Radiology Adilene Link[address] ONCOLOGY [place], [place] [address] [phone] (Wo rk) 10/25/2022 Office Visit Hematology and Oncology Alberto Guy MD [facility] DR HEMATOLOGY/[place] [address] [address] MEDICAL ONCOLOGY [place], [place] [address] 11/09/2022 Office Visit Urology Bobo Davis MD [facility] [address] UROLOGY [place], [place] [address] (Wo rk) documented as of this encounter Visit Diagnoses Not on filedocumented in this encounter Care Teams Performance Engineer Relationship Specialty Start Date End Date Derek Torres PA PCP - General Internal Medicine 06/07/21 Mahnaz [address]LSON [address] [place] [address] documented as of this encounter
--- OUTSIDE RECORDS SUMMARY | 2022-10-07 18:37 | XMS_ITS | Encounter Summary ---
:1955 Author Organization [facility] [place] [address] Care Team Providers Name Role Phone Derek Torres Primary Care Provider Encounter Details Date Type Department Care Team Description 03/15/2022 Notes Only Hematology/Oncology at Julia Morris, [facility] OFFICE OF CARE [address] [place] [phone] Social History Tobacco Use Types Packs/Day Years Used Date Former Smoker Cigarettes 0.25 0 Quit: 06/2020 Smokeless Tobacco: Never Used Alcohol Use Standard Drinks/Week Comments Not Currently 0 (1 standard drink = 0.6 oz pure alcoho l) Sex Assigned at Date Recorded Not on file documented as of this encounter Progress Notes Julia Morris MSW - 03/15/2022 12:37 PM EDT Follow up with pt during her infusion visit. Pt indicated she did not get good news today. She indicated she took some time off of treatment and the cancer has spread. She will be back on infusions again. She indicated she was not surprise by the news and she plans to keep moving forward. Her continues as her primary support. Her daughter gives her emotional support. Offered support. She has [facility] services in place with RN, PT, OT and instrument maker. She has contacts at the [facility] and her PCP office who are responsive to her needs. Pt did not identify any new needs today. Reminded her of [facility] availability and contact information. Will follow for support and resources. Brief assessment Supportive Counseling documented in this encounter Plan of Treatment Upcoming Encounters Date Type Specialty Care Team Description 10/21/2022 Appointment Hematology and Oncology 10/21/2022 Hospital Encounter Radiology Adilene Link[address] ONCOLOGY [place], [place] [address] [phone] (Wo rk) 10/21/2022 Appointment Radiology Adilene Link[address] [place] [address] (Wo rk) 10/21/2022 Appointment Radiology Adilene Link[address] [place] [address] (Wo rk) 10/25/2022 Office Visit Hematology and Oncology Alberto Guy MD [facility] [address] HEMATOLOGY/[place] [address] [address] MEDICAL ONCOLOGY [place], [place] [address] [phone] 11/09/2022 Office Visit Urology Bobo Davis MD [facility] [address] UROLOGY [place], [place] [address] (Wo rk) documented as of this encounter Visit Diagnoses Not on filedocumented in this encounter Care Teams Vba Programmer Relationship Specialty Start Date End Date Derek Torres PA PCP - General Internal Medicine 06/07/21 [address] [place], [place] [address] documented as of this encounter
--- OUTSIDE RECORDS SUMMARY | 2022-10-07 18:37 | XMS_ITS | Encounter Summary ---
:1955 Author Organization [facility] [address] Care Team Providers Name Role Phone Derek Torres Primary Care Provider Encounter Details Date Type Department Care Team Description 05/10/2022 Notes Only Hematology/Oncology at Julia Morris, [facility] OFFICE OF CARE [address] [place] [address] [phone] Social History Tobacco Use Types Packs/Day Years Used Date Former Smoker Cigarettes 0.25 0 Quit: 06/2020 Smokeless Tobacco: Never Used Alcohol Use Standard Drinks/Week Comments Not Currently 0 (1 standard drink = 0.6 oz pure alcoho l) Sex Assigned at Date Recorded Not on file documented as of this encounter Progress Notes Julia Morris MSW - 05/10/2022 11:09 AM EDT Follow up with pt during her infusion visit today. Pt indicated she is working with her PCP on some of the challenges she is having with her VNA services. Pt wanted the contact number to [facility] to look into rides as her has to take time off from work to bring her. Explained she did not have insurance that would cover medical rides but she could speak to [facility] re other funding options. Pt also indicated she needed someone to help her with paperwork for fuel assistance and gave her the contact information to the [place] on Aging. Pt shared she has had challenges with some agencies and she wants things done a certain way that she should reach out herself directly to request services. Pt able to follow through with this. Offered pt support and reminded her of [employer]PER[employer] availability. Will continue to follow for support and resources. Brief assessment Supportive Counseling Transportation resources Community Resource documented in this encounter Plan of Treatment Upcoming Encounters Date Type Specialty Care Team Description 10/21/2022 Appointment Hematology and Oncology 10/21/2022 Hospital Encounter Radiology Adilene Link[address] [place] [address] (Wo rk) 10/21/2022 Appointment Radiology Adilene Link[address] [place] [address] (Wo rk) 10/21/2022 Appointment Radiology Adilene Link[address] [place] [address] (Wo rk) 10/25/2022 Office Visit Hematology and Oncology Alberto Guy MD [facility] DR HEMATOLOGY/[place] [address] [address] [place] [address] 11/09/2022 Office Visit Urology Bobo Davis MD [facility] DR UROLOGY [place], [place] [address] (Wo rk) documented as of this encounter Visit Diagnoses Not on filedocumented in this encounter Care Teams Dredge Pumper Relationship Specialty Start Date End Date Derek Torres PA PCP - General Internal Medicine 06/07/21 Mahnaz CARLSON [address] [place] [phone] documented as of this encounter
--- OUTSIDE RECORDS SUMMARY | 2022-10-07 18:37 | XMS_ITS | Encounter Summary ---
:1955 [place] [address] Care Team Providers Name Role Phone Derek Torres Primary Care Provider Encounter Details Date Type Department Care Team Description 05/03/2022 Office Visit Hematology/Oncology Rah Bhatia MD [facility] DR HEMATOLOGY/[place] [address] Metastatic urothelial at [facility] Ankita Pierre APRN [facility] [place] [address] [place] [phone] Social History Tobacco Use Types Packs/Day Years Used Date Former Smoker Cigarettes 0.25 0 Quit: 06/2020 Smokeless Tobacco: Never Used Alcohol Use Standard Drinks/Week Comments Not Currently 0 (1 standard drink = 0.6 oz pure alcoho l) Sex Assigned at Date Recorded Not on file documented as of this encounter Last Filed Vital Signs Vital Sign Reading Time Taken Comments Blood Pressure 173/70 05/03/2022 9:19 AM EDT Pulse 76 05/03/2022 9:19 AM EDT Temperature 36.3 ??C (97.3 ??F) 05/03/2022 9:19 AM EDT Respiratory Rate 20 05/03/2022 9:19 AM EDT Oxygen Saturation 100% 05/03/2022 9:19 AM EDT Inhaled Oxygen Concentration - - Weight 102.2 kg (225 lb 3.2 oz) 05/03/2022 9:19 AM EDT Height 161.2 cm (5' 3.47) 05/03/2022 9:19 AM EDT Body Mass Index 39.31 05/03/2022 9:19 AM EDT documented in this encounter Patient Instructions Patient InstructionsAnkita Pierre APRN - 05/03/2022 11:33 AM EDT She will return in one week with labs prior and infusion. documented in this encounter Progress Notes Ankita Pierre APRN - 05/03/2022 9:30 AM EDT Images from the original note were not included. Hematology & Medical Oncology [address] [address] Nancy returns today to continue treatment for [...] retroperitoneal lymph nodes on January 22 at [facility]. Pathology is pending. PET scan demonstrated [...] and antibiotics with ciprofloxacin. Interval History 05/03/22- Nacny returns today to continue treatment for her [...] today. ROS is otherwise negative. Interval history (04/19/2022) nancy returns today to continue treatment for [...] 260. ROS is otherwise negative. INTERVAL history(04/12/22):- Nancy returns to the [facility] today to continue treatment for metastatic urothelial carcinoma. Overall, she feels well. She does take Keflex for infection of herleft breast, has just 2 days left. Nancy is working with PT/OT and is slowing [...] with para caval/intra aortocava node disease. Finalpathology- [id number] High grade UCC with negative margins UTI E. coli 100,000 colonies PTSD/depression, diabetes mellitus on insulin, arthritis, , hernia repair x3, anxiety, hysterectomy for urinary incontinence 2 to 3 years ago Social History: No interval changes since last visit [id number] smoking history, quit 6 months ago, does [...] Medications: Your Medications Accurate as of May 03, 2022 11:32 AM. If you have any [...] 0 Jeanne Pen Needle 32 gauge x 32 Ndle Generic drug: insulin needles (disposable) Refills: [...] Thought content normal. Judgment: Judgment normal. BP 173/70 (Patient Position: Sitting) Pulse 76 Temp 36.3 ??C (97.3 ??F) (Temporal) Resp 20 Ht 161.2 cm (5' 3.47) Wt 102.2 kg (225 lb 3.2 oz) SpO2 100% BMI 39.31 kg/m?? Wt Readings from Last 3 Encounters: 05/03/22 102.2 kg (225 lb 3.2 oz) 04/19/22 102.2 kg (225 lb 3.2 oz) 04/12/22 101.2 kg (223 lb) Pathology: 06/16/21 ADDENDUM DISCUSSION PAS and BMS stains were evaluated for Block A17, demonstrating nodular ??glomerulosclerosis. Electronically signed by: ?MD Thorne Jason R. Verified: ??06/24/2021 11:01 ??Pathologist Performed at: ??-[facility] Dept. of Pathology, [place], [place] ? Surgical Pathology DIAGNOSIS Right kidney and ureter with paracaval and intracaval lymph nodes, excision: ??- Urothelial carcinoma. ?? (See SYNOPTIC REPORT), invasive into ? perinephric fat and renal parenchyma. 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 Electronically signed by: ?MD Thorne Jason R. Verified: ??06/24/2021 10:58 ??Pathologist Performed at: ??-[facility]??Dept. of Pathology, [place], [place] SYNOPTIC Specimen ?Procedure: ??Nephroureterectomy ?Specimen Laterality: [...] carcinoma with superimposed abundant degenerative changes Labs: 05/03/22 WBC 5.42 ANC 2.65 H/H 11.3/36.7 [...] TB 0.4, AST 26, ALT 39, alkaline [id number], albumin 3.3, TSH 2.62, free T4 1.4. [...] CHF: Increased pericardial effusion. 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 Ebony Beckham,had stress test [...] benadryl as prescribed. PLAN: 1. Enfortumab vedotin D1 C4 today 2. Zometa 3mg IV every 4 weeks. Continue calcium/vitamin D supplements. Will receive a dose today 3. Follow up visit in 1 week with CBC,CMP and D 8 C4 of enfortumab vedotin. Nancy voiced understanding of [...] and Oncology 10/21/2022 Hospital Encounter Radiology Adilene Likn[address] MEDICAL ONCOLOGY [place], [place] [phone] (Wo rk) 10/21/2022 Appointment Radiology Adilene Link[address] ONCOLOGY [place], [place] [address] (Wo rk) 10/21/2022 Appointment Radiology Adilene Link[address] MEDICAL ONCOLOGY [place], [place] [phone] (Wo rk) 10/25/2022 Office Visit Hematology and Oncology Alberto Guy MD [facility] DR HEMATOLOGY/[place] [address] MEDICAL ONCOLOGY [place], [place] [address] [phone] 11/09/2022 Office Visit Urology Bobo Davis MD [facility] DR UROLOGY [place], [place] [address] (Wo rk) documented as of this encounter Visit Diagnoses Diagnosis Metastatic urothelial carcinoma 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 documented in this encounter Care Teams Community Service Officer Relationship Specialty Start Date End Date Derek Torres PA PCP - General Internal Medicine 06/07/21 [address] [place] [address] documented as of this encounter
--- OUTSIDE RECORDS SUMMARY | 2022-10-07 18:37 | XMS_ITS | Encounter Summary ---
:1955 Author Organization [facility] [place] [address] Care Team Providers Name Role Phone Derek Torres Primary Care Provider Reason for Referral Diagnostic Test (Routine) - Closed Specialty Diagnoses / Procedures Referred By Contact Refer red To Contact Radiology Diagnoses Metastatic urothelial carcinoma Gwyn Shelton MD [facility] Interventionl Rad Procedures IR Mediport Placement [facility] DR [facility] HEMATOLOGY/[place] [address] [place] [address] Referral ID Status Reason Start Date Expiration Date Visits V isits Requested Authorized [id number] Closed Specialty 04/12/2022 10/13/2023 1 1 Service Requested Encounter Details Date Type Department Care Team Description 04/12/2022 Office Visit Hematology/Oncology Andrea Shelton ic urothelial carcinoma; at [facility] MD Gwyn Urothelial carcinoma of kidney, right; [address] [place] [address] Bone metastases; [place], [place] [address] Encounter for antineoplastic chemotherap y and immunotherapy [phone] HEMATOLOGY/ONCOLO [phone] [place], [place] [address] Social History Tobacco Use Types Packs/Day Years Used Date Former Smoker Cigarettes 0.25 0 Quit: 06/2020 Smokeless Tobacco: Never Used Alcohol Use Standard Drinks/Week Comments Not Currently 0 (1 standard drink = 0.6 oz pure alcoho l) Sex Assigned at Date Recorded Not on file documented as of this encounter Last Filed Vital Signs Vital Sign Reading Time Taken Comments Blood Pressure 142/79 04/12/2022 10:43 AM EDT Pulse 71 04/12/2022 10:43 AM EDT Temperature 36.4 ??C (97.5 ??F) 04/12/2022 10:43 AM EDT Respiratory Rate 16 04/12/2022 10:43 AM EDT Oxygen Saturation 99% 04/12/2022 10:43 AM EDT Inhaled Oxygen Concentration - - Weight 101.2 kg (223 lb) 04/12/2022 10:43 AM EDT Height 161.2 cm (5' 3.47) 04/12/2022 10:43 AM EDT Body Mass Index 38.93 04/12/2022 10:43 AM EDT documented in this encounter Progress Notes Gwyn Shelton MD - 04/12/2022 10:30 AM EDT Images from the original note were not included. Hematology & Medical Oncology [address] [address] Nancy returns today to continue [...] retroperitoneal lymph nodes on January 22 at [facility]. Pathology is pending. PET scan [...] Lovenox and and antibiotics with ciprofloxacin. INTERVAL history(04/12/22):- Nancy returns to the [facility] today to continue treatment for [...] with para caval/intra aortocava node disease. Finalpathology- [id number] High grade UCC with negative margins UTI E. coli 100,000 colonies PTSD/depression, diabetes mellitus on insulin, arthritis, , hernia repair x3, anxiety, hysterectomy for urinary incontinence 2 to 3 years ago Social History: No interval changes since last visit [id number]-xqst smoking history, quit 6 months ago, does [...] Medications: Your Medications Accurate as of April 12, 2022 11:01 AM. If you have any questions, ask [...] Thought content normal. Judgment: Judgment normal. BP 142/79 (Patient Position: Sitting) Pulse 71 Temp 36.4 ??C (97.5 ??F) (Temporal) Resp 16 Ht 161.2 cm (5' 3.47) Wt 101.2 kg (223 lb) SpO2 99% BMI 38.93 kg/m?? Wt Readings from Last 3 Encounters: 04/12/22 101.2 kg (223 lb) 04/05/22 101.8 kg (224 lb 6.4 oz) 03/22/22 101.1 kg (222 lb 12.8 oz) Pathology: 06/16/21 ADDENDUM DISCUSSION PAS and BMS stains were evaluated for Block A17, demonstrating nodular ??glomerulosclerosis. Electronically signed by: ?MD Fadumo, Rick Lee Verified: ??06/24/2021 11:01 ??Pathologist Performed at: ??-[facility] [place], [place], [place] ? Surgical Pathology DIAGNOSIS Right kidney and ureter with paracaval and intracaval lymph nodes, excision: ??- Urothelial carcinoma. ?? (See SYNOPTIC REPORT), invasive into ? perinephric fat and renal parenchyma. 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 Electronically signed by: ?MD Fadumo, Rick Lee Verified: ??06/24/2021 10:58 ??Pathologist Performed at: ??[facility]Dept. of Pathology, [place], [place] SYNOPTIC Specimen ?Procedure: ??Nephroureterectomy ?Specimen Laterality: [...] carcinoma with superimposed abundant degenerative changes Labs: 04/12/2022 WBC 10.6, hemoglobin 12, platelet count [...] TB 0.4, AST 26, ALT 39, alkaline [id number], albumin 3.3, TSH 2.62, free T4 1.4. [...] with day 8 of cycle 3 today # CHF: Increased pericardial effusion. 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 Ebony Beckham,had stress test [...] benadryl as prescribed. PLAN: 1. Enfortumab vedotin D8C3 today 2. Zometa 3mg IV every 4 weeks. Continue calcium/vitamin D supplements. 3. Follow up visit in 1 week with CBC,CMP and D15C3 of enfortumab vedotin. Nancy voiced understanding of the plan and was given an opportunity to ask questions which I answered to the best of my ability. Nancy understands she can call the clinic between visits with any questions/concerns or new symptoms. documented in this encounter Miscellaneous Notes Addendum Note - Gwyn Shelton MD - 04/12/2022 10:30 AM EDT Addended by: GWYN SHELTON on: 04/12/2022 12:30 PM Modules accepted: Orders documented in this encounter Plan of Treatment Upcoming Encounters Date Type Specialty Care Team Description 10/21/2022 Appointment Hematology and Oncology 10/21/2022 Hospital Encounter Radiology Adilene Link[address] MEDICAL ONCOLOGY [place], [place] [phone] (Kwadwo rk) 10/21/2022 Appointment Radiology Adilene Link[address] MEDICAL ONCOLOGY [place], [place] [phone] (Wo rk) 10/21/2022 Appointment Radiology Adilene Link[address] MEDICAL ONCOLOGY [place], [place] [phone] (Wo rk) 10/25/2022 Office Visit Hematology and Oncology Gwyn Guy MD [facility] DR HEMATOLOGY/[place] [address] [address] [place] [address] 11/09/2022 Office Visit Urology Bobo Davis MD [facility] UROLOGY [place], [place] [address] (Wo rk) documented as of this encounter Results IR Mediport Placement (04/27/2022 10:25 AM EDT) Anatomical Region Laterality Modality X-Ray Angiography Specimen (Source) Anatomical Location Collection Method / Collectio n Time Received Time / Laterality Volume Narrative 04/27/2022 10:57 AM EDT Interventional Radiology Procedure Note Procedure: Chest port placement. Indication: According to Meliton Tay note d ated 2022 Nancy Pichardo is a 67 y.o. female [...] as documented by the IR Nurse. 04/27/2022 Gwyn Shelton MD IMG IR ORDERABLES documented in this encounter Visit Diagnoses Diagnosis Metastatic urothelial carcinoma 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 Urothelial carcinoma of kidney, right Bone metastases Secondary malignant neoplasm of bone and bone marrow Encounter for antineoplastic chemotherap y and immunotherapy Metastatic urothelial carcinoma 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 documented in this encounter Care Teams Vascular Tech Relationship Specialty Start Date End Date Derek Torres PA PCP - General Internal Medicine 06/07/21 Mahnaz [address] [place] [address] documented as of this encounter
--- OUTSIDE RECORDS SUMMARY | 2022-10-07 18:37 | XMS_ITS | Encounter Summary ---
:1955 Author Organization [facility] [place] [address] Care Team Providers Name Role Phone Derek Torres Primary Care Provider Encounter Details Date Type Department Care Team Description 03/22/2022 Office Visit Hematology/Oncology Adilene Link, [place] static urothelial carcinoma; at [facility] High risk medication use; [address] [place] [address] DR Bone metastases; [place], [place] MEDICAL ONCOLOG Y Drug-induced skin rash [phone] [place], [place] [phone] (Wo rk) Social History Tobacco Use Types [...] Sign Reading Time Taken Comments Blood Pressure 149/55 03/22/2022 8:10 AM EDT Pulse 65 03/22/2022 8:10 AM EDT Temperature 36.7 ??C (98.1 ??F) 03/22/2022 8:10 AM EDT Respiratory Rate 18 03/22/2022 8:10 AM EDT Oxygen Saturation 99% 03/22/2022 8:10 AM EDT Inhaled Oxygen Concentration - - Weight 101.1 kg (222 lb 12.8 oz) 03/22/2022 8:10 AM EDT Height 161.2 cm (5' 3.47) 03/22/2022 8:10 AM EDT Body Mass Index 38.89 03/22/2022 8:10 AM EDT documented in this encounter Progress Notes Nikolay Adilene Nish, CLINICAL NURSING MANAGER - 03/22/2022 8:30 AM EDT Images from the original note were not included. Hematology & Medical Oncology [place] [phone] Nancy returns today to continue treatment for [...] retroperitoneal lymph nodes on January 22 at [email or web address] Pathology is pending. PET scan demonstrated increased [...] Lovenox and and antibiotics with ciprofloxacin. INTERVAL history(03/22/22):- Nancy returns to the [facility] today for follow-up of metastatic urothelial carcinoma and to continue treatment for metastatic urothelial carcinoma. Overall, she feels at her baseline. Still complains of intermittent backache, but does not need any painkillers. She is still getting PT/OT and is slowing improving. Actually, she stopped hydromorphone as it was messing up her bowel movements. Denies any fevers, chills or signs of infection. No bladder issues. Denies any pain today. Edema has improved. Appetite is good. She feels well today. No other focal complaints. PMH: No interval changes since last visit UTI was treated with antibiotics Completed antibiotics for UTI about a week ago. 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 Finalpathology- [id number] High grade UCC with negative margins UTI E. coli 100,000 colonies PTSD/depression, diabetes mellitus on insulin, arthritis, , hernia repair x3, anxiety, hysterectomy for urinary incontinence 2 to 3 years ago Social History: No interval changes since last visit 27-qcow-mtfj smoking history, quit 6 months ago, does [...] Medications: Your Medications Accurate as of March 22, 2022 8:45 AM. If you have any questions, ask [...] 50 mg Tab Commonly known as: Hygroten Refills: 0 cholecalciferol 1,000 unit Tab Commonly [...] drug: insulin degludec 52 Units Refills: 0 Lokelma 5 gram Pwpk [...] 2 tablet Quantity: 120 tablet Refills: 11 Review of Systems Constitutional: Negative for chills [...] Thought content normal. Judgment: Judgment normal. BP 149/55 (Patient Position: Sitting) Pulse 65 Temp 36.7 ??C (98.1 ??F) (Temporal) Resp 18 Ht 161.2 cm (5' 3.47) Wt 101.1 kg (222 lb 12.8 oz) SpO2 99% BMI 38.89 kg/m?? Wt Readings from Last 3 Encounters: 03/22/22 101.1 kg (222 lb 12.8 oz) 03/15/22 100.2 kg (221 lb) 01/25/22 100.6 kg (221 lb 12.8 oz) Pathology: 06/16/21 ADDENDUM DISCUSSION PAS and BMS stains were evaluated for Block A17, demonstrating nodular ??glomerulosclerosis. Electronically signed by: ?MD Thorne Jason R. Verified: ??06/24/2021 11:01 ??Pathologist Performed at: ??-[facility]. [place], [place], [place] ? Surgical Pathology DIAGNOSIS Right kidney and ureter with paracaval and intracaval lymph nodes, excision: ??- Urothelial carcinoma. ?? (See SYNOPTIC REPORT), invasive into ? perinephric fat and renal parenchyma. 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 Electronically signed by: ?MD Thorne Jason R. Verified: ??06/24/2021 10:58 ??Pathologist Performed at: ??-[facility]Dept. of Pathology, [place], [place] SYNOPTIC Specimen ?Procedure: ??Nephroureterectomy ?Specimen Laterality: [...] carcinoma with superimposed abundant degenerative changes Labs: 03/22/22- WBC-8.37 Hgb/Hct-11.5/37.1 Plt-253 ANC-5.95 Na-134 K+-5.3 [...] TB 0.4, AST 26, ALT 39, alkaline [id number], albumin 3.3, TSH 2.62, free T4 1.4. [...] CHF: Increased pericardial effusion. 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 Ebony Beckham,had stress test [...] resolved # Rash- scattered. Continue steroid cream as prescribed. PLAN: 1. Enfortumab vedotin D15C2 today 2. Follow up visit in 2 weeks with CBC,CMP and D15C2 of enfortumab vedotin. Nancy voiced understanding of the plan and was given an opportunity to ask questions which I answered to the best of my ability. Nancy understands she can call the clinic between visits with any questions/concerns or new symptoms. documented in this encounter Miscellaneous Notes Addendum Note - Adilene Link APRN - 03/22/2022 8:30 AM EDT Addended by: ADILENE LINK on: 03/22/2022 11:27 AM Modules accepted: Orders documented in this encounter Plan of Treatment Upcoming Encounters Date Type Specialty Care Team Description 10/21/2022 Appointment Hematology and Oncology 10/21/2022 Hospital Encounter Radiology Adilene Link APRN [address] [place] [address] DR MEDICAL ONCOLOGY [place], [place] [phone] (wKadwo morataya) 10/21/2022 Appointment Radiology Adilene Link APRN [address] [place] [address] DR MEDICAL ONCOLOGY [place], [place] [phone] (Kwadwo morataya) 10/21/2022 Appointment Radiology Adilene Link [address] MEDICAL ONCOLOGY [place], [place] [phone] (Wo rk) 10/25/2022 Office Visit Hematology and Oncology Alberto Guy MD [facility] HEMATOLOGY/[place] [address] MEDICAL ONCOLOGY [place], [place] [phone] 11/09/2022 Office Visit Urology Bobo Davis MD [facility] UROLOGY [place], [place] [address] (Wo rk) documented as of this encounter Visit Diagnoses Diagnosis Metastatic urothelial carcinoma 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 High risk medication use Encounter for long-term (current) use of other medications Bone metastases Secondary malignant neoplasm of bone and bone marrow Drug-induced skin rash Toxic erythema documented in this encounter Care Teams Instructional Design Specialist Relationship Specialty Start Date End Date Derek Torres PA PCP - General Internal Medicine 06/07/21 [address] [place] [address] documented as of this encounter
--- OUTSIDE RECORDS SUMMARY | 2022-10-07 18:37 | XMS_ITS | Encounter Summary ---
:1955 Author Organization [facility] [place] [address] Care Team Providers Name Role Phone Derek Torres Primary Care Provider Reason for Visit Diagnostic Test (Routine) - Closed Specialty Diagnoses / Procedures Referred By Contact Refer red To Contact Radiology Diagnoses Metastatic urothelial carcinoma Alberto Bhatia MD [facility] Rad Nuclear Med Procedures NM PET CT Skull Base to Mid-thigh [facility] HEMATOLOGY/[place] [address] [place] [address] Referral ID Status Reason Start Date Expiration Date Visits V isits Requested Authorized [id number] Closed Specialty 06/06/2022 07/05/2022 1 1 Service Requested Encounter Details Date Type Department Care Team Description 06/13/2022 Hospital Encounter Nuclear Medicine at Mike Bhatia Mary Hitchcock MD [facility] [place] [address] HEMATOLOGY/ONCOLOGY [phone] [place], [place] [address] (Wo rk) Social History Tobacco [...] metoprolol tartrate Take 0.5 tablets by 0 06/23/ 021 (Lopressor) 25 mg mouth 2 times [...] and Oncology 10/21/2022 Hospital Encounter Radiology Adilene Link[address] ONCOLOGY [place], [place] [phone] (Wo rk) 10/21/2022 Appointment Radiology Adilene Link [address] ONCOLOGY [place], [place] [phone] (Wo rk) 10/21/2022 Appointment Radiology Adilene Link[address] ONCOLOGY [place], [place] [phone] (Wo rk) 10/25/2022 Office Visit Hematology and Oncology Alberto Guy MD [facility] DR HEMATOLOGY/[place] [address] [address] MEDICAL ONCOLOGY [place], [place] [phone] 11/09/2022 Office Visit Urology Bobo Davis MD [facility] DR UROLOGY [place], [place] [address] (Wo rk) documented as of this encounter Procedures Procedure Name Priority Date/Time Associated Diagnosis Comme nts NM PET CT SKULL Routine 06/13/2022 2:35 PM Metastatic Result s for this BASE TO MID-THIGH EDT urothelial carcinoma pr ocedure are in ([facility]) the results section. POCT GLUCOSE Routine 06/13/2022 1:13 PM Results f or this EDT procedure are i n the results section. documented in this encounter Results POCT Glucose (06/13/2022 1:13 PM EDT) athologist Signature POC Glucose 126 65 - 199 [facility] mg/dL [facility] Comment: Supplemental ranges: <140 mg/dL before meals <180 mg/dL all other times of the day Specimen Anatomical Collection Method Collection Time Receive d Time (Source) Location / / Volume Laterality Blood 06/13/2022 1:13 PM 2 1:13 EDT PM EDT Alberto Bhatia MD POINT OF CARE TEST ORDERABLE S Performing Organization Address City/State/[place] [address] documented in this encounter Visit Diagnoses Not on filedocumented in this encounter Care Teams Chief Solution Architect Relationship Specialty Start Date End Date Derek Torres PA PCP - General Internal Medicine 06/07/21 [address] [place] [address] documented as of this encounter
--- OUTSIDE RECORDS SUMMARY | 2022-10-07 18:37 | XMS_ITS | Encounter Summary ---
:1955 Author Organization [facility] [address] Care Team Providers Name Role Phone Derek Torres Primary Care Provider Reason for Visit Reason Comments Chemotherapy Cycle 5 Day 1 Enfortumab IV Medication Zometa Treatment/Therapy Plan Authorization (Routine) - Authorized Specialty Diagnoses / Procedures Referred By Contact Refer red To Contact Diagnoses Urothelial carcinoma of kidney, right Malignant neoplasm of urinary bladder, unspecified site Neutropenia, drug-induced Metastatic urothelial carcinoma High risk medication use Alberto Bhatia MD [facility] Hem Onc Office Procedures TC PALONOSETRON HCL, 25MCG, INJECTION (ALOXI) TC ZOLEDRONIC ACID, 1 MG, INJECTION J2469 palonosetron (Aloxi) 0.25 MG [id number] enfortumab vedotin-ejfv (PADCEV) 125 mg [id number] ZOMETA 3 MG [facility] [address] [place] [address] HEMATOLOGY/[place] [phone] Fax: Referral ID Status Reason Start Date Expiration Date Visits V isits Requested Authorized [id number] Authorized 05/31/2022 05/30/2023 20 20 Encounter Details Date Type Department Care Team Description 05/31/2022 Infusion Hematology Oncology at [facility] tastatic urothelial carcinoma; [facility] High risk medication use; [address] [place] [address] Neutropenia, drug-induced; [place], [place] [phone] Urothelial carcinoma of kidn ey, right; [phone] Malignant neopl asm of urinary bladder, unspecified [...] encounter Progress Notes Ledy Franklin RN - 05/31/2022 9:30 AM EDT INFUSION THERAPY ADMINISTRATION NOTES DIAGNOSIS: Metastatic urothelial cancer CYCLE #: Cycle 5, Day 1 - Enfortumab & Zometa REASON FOR VISIT: To receive chemotherapy. SUBJECTIVE: Nancy offers no complaints. OBJECTIVE: LAB DATA: WBC 8.41, H/H 11.5/36.3, Plt Ct 271, ANC 5.83, K 4.2, Na 138, BUN/Cr 39/1.5, Corrected Calcium 9.2, TSH 3.18, FT4 1.08, CrCl 57.3ml/min IV ACCESS: Mediport accessed, blood return present and flushes easily. Pre administration: Chemotherapy orders independently verified for [...] and Oncology 10/21/2022 Hospital Encounter Radiology Adilene Link[address] MEDICAL ONCOLOGY [place], [place] [phone] (Kwadwo morataya) 10/21/2022 Appointment Radiology Adilene Link[address] MEDICAL ONCOLOGY [place], [place] [phone] (Kwadwo morataya) 10/21/2022 Appointment Radiology Adilene Link[address] MEDICAL ONCOLOGY [place], [place] [phone] (Wo rk) 10/25/2022 Office Visit Hematology and Oncology Alberto Guy MD [facility] DR HEMATOLOGY/[place] [address] Adilene Link APRN [address] [place] [address] DR MEDICAL ONCOLOGY [place], [place] [address] 11/09/2022 Office Visit Urology Bobo Davis MD [facility] UROLOGY [place], [place] [address] (Wo rk) documented as of [...] Rate Site calcium carbonate (Tums) chewable Given 05/31/2022 10:54 AM EDT 500 mg tablet 500 mg 500 mg, Oral, ONCE, 1 dose, On Mon05/31/22 at 1045, Routine enfortumab vedotin-ejfv (PADCEV) New Bag 05/31/2022 10:20 AM E DT 120 mg 124 mL/hr 120 mg in sodium chloride 0.9% 62 mL chemo infusion 120 mg, Intravenous, ONCE, 1 dose, On Mon05/31/22 at 1045, Administer over 30 Minutes, Dose Ordered = 125 mg (1.25 mg/kg). Pharmacist rounded dose per procedure - re-ordered by provider. Warning Vesicant/Irritant Medication , This agent is restricted to outpatient use. Is this drug being given as an outpatient? Yes heparin (pf) (porcine) (100 units/mL) Given 05/31/2022 11:12 AM EDT 500 Units flush 5 mL syringe 500 Units 500 Units, Intravenous, ONCE PRN, Starting on Mon05/31/22 at 0916, Until Mon05/31/22 at 1751, Line Care, Refer to Intravenous (IV) Procedure: Accessing Implanted Vascular Access Devices (654) procedure and/or Intravenous (IV) Job Aid: Adult Flushing & Catheter Care (2952) job aid for additional information regarding guidelines and administration., Routine palonosetron (Aloxi) (0.05 mg/mL) injection Given 03/2022 9:35 AM EDT 0.25 mg 0.25 mg 0.25 mg, Intravenous, ONCE, 1 dose, On Mon05/31/22 at 0945, Administer over 30 seconds. Administer prior to chemotherapy, Routine sodium chloride 0.9 % (flush) (BD PosiFlush Given 03/2022 11:12 AM EDT 20 mLs Normal Saline 0.9) flush 5-20 mL 5-20 mL, Intravenous, EVERY 1 MIN PRN, Starting on Mon05/31/22 at 0916, Until Mon05/31/22 at 1751, Line Care, Flush pertains to all indwelling lines. Flush per protocol found in the job aid using the link provided on this medication record. Refer to Intravenous (IV) Job Aid: Adult Flushing & Catheter Care (0962) job aid for additional information regarding guidelines and administration., Routine sodium chloride 0.9% infusion New Bag 05/31/2022 9:35 AM EDT 100 mL/hr 100 mL/hr 100 mL/hr, Intravenous, CONTINUOUS, Starting on Mon05/31/22 at 0945, Until Mon05/31/22 at 1751 zoledronic acid (Zometa) 3 mg in New Bag 05/31/2022 10:54 AM EDT 3 mg 415 mL/hr sodium chloride 0.9% 103.75 mL infusion 3 mg, Intravenous, ONCE, 1 dose, On Mon05/31/22 at 1045, Administer over 15 Minutes, Do not administer [...] metastases documented in this encounter Care Teams Medicare Compliance Auditor Relationship Specialty Start Date End Date Derek Torres PA PCP - General Internal Medicine 06/07/21 [address] [place] [address] documented as of this encounter
--- OUTSIDE RECORDS SUMMARY | 2022-10-07 18:38 | XMS_ITS | Encounter Summary ---
:1955 Author Organization [facility] [address] Care Team Providers Name Role Phone Derek Torres Primary Care Provider Encounter Details Date Type Department Care Team Description 11/23/2021 Office Visit Hematology/Oncology Rah Shelton MD [facility] DR HEMATOLOGY/[place] [address] Metastatic urothelial at [facility], Adilene Mock COGNOS [address] [place] [address] [place] [address] [place] [phone] Social History Tobacco Use Types Packs/Day Years Used Date Former Smoker Cigarettes 0.25 0 Quit: 06/2020 Smokeless Tobacco: Never Used Alcohol Use Standard Drinks/Week Comments Not Currently 0 (1 standard drink = 0.6 oz pure alcoho l) Sex Assigned at Date Recorded Not on file documented as of this encounter Last Filed Vital Signs Vital Sign Reading Time Taken Comments Blood Pressure 203/86 11/23/2021 11:22 AM EST Pulse 84 11/23/2021 11:22 AM EST Temperature 36.6 ??C (97.8 ??F) 11/23/2021 11:22 AM EST Respiratory Rate 20 11/23/2021 11:22 AM EST Oxygen Saturation 100% 11/23/2021 11:22 AM EST Inhaled Oxygen Concentration - - Weight 105.1 kg (231 lb 12.8 oz) 11/23/2021 11:22 AM EST Height 161.3 cm (5' 3.5) 11/23/2021 11:22 AM EST Body Mass Index 40.41 11/23/2021 11:22 AM EST documented in this encounter Patient Instructions Patient InstructionsAdilene Link APRN - 11/23/2021 11:30 AM EST Begin Calcium Citrate 500mg tablet - take one tablet with each meal for 1500- 1800mg of calcium a day Continue your vitamin D3 daily documented in this encounter Progress Notes Adilene Link APRN - 11/23/2021 11:30 AM EST Images from the original note were not included. Dz: Metastatic urothelial carcinoma Patient Active Problem List Diagnosis Code ??? [...] retroperitoneal lymph nodes on January 22 at [facility]. Pathology is pending. PET scan demonstrated [...] Lovenox and and antibiotics with ciprofloxacin. INTERVAL history(11/23/21):- Nancy returns to the [facility] today to follow-up on metastatic urothelial carcinoma. She will be starting treatment with Padcev. Nancy is complaining of urinaryinfection symptoms today. No hematuria but she has cloudy smelly urine. No fevers or chills. She hasno pain today but states she just doesn't feel right. She is followed by Palliative Care now and states her pain is in good control. No changes in skin rash with mild itching. Her blood pressure is elevated today but she recently decreased her BP medication. She will discuss with her VNA nurse and PCPand start her medication again. No other focal complaints today. PMH: UTI was treated with antibiotics Completed antibiotics for UTI about a week ago. 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 Finalpathology- [id number] High grade UCC with negative margins UTI E. coli 100,000 colonies PTSD/depression, diabetes mellitus on insulin, arthritis, , hernia repair x3, anxiety, hysterectomy for urinary incontinence 2 to 3 years ago Social History: No interval changes since last visit [id number] smoking history, quit 6 months ago, does [...] leg pain, CIS - leg pain ??? Loratadine Palpitations hyper ??? Sulfa (Sulfonamide Antibiotics) ??? Tegaderm [Transparent Dressings] Dermatitis Tegaderm/stat-lock of IV dressing Medications: Your Medications Accurate as of November 23, 2021 2:01 PM. If you have any questions, ask your nurse or doctor. New Medications Dose Details ciprofloxacin 250 mg Tab Commonly known as: Cipro Take 1 tablet by mouth 2 times daily. Started by: ALBERTO SHELTON MD 250 mg Quantity: 20 tablet Refills: 0 Continued medications, unchanged Dose Details acetaminophen 325 mg Tab Commonly known as: Tylenol Take 3 tablets by mouth every 6 hours as needed for Pain. 975 mg Refills: 0 blood sugar diagnostic strips Strp 1 strip by NOT APPLICABLE route Three times a day. 1 strip Refills: 0 cholecalciferol (Vitamin D3) 1,000 unit Tab Commonly known as: Vitamin D3 Take 1,000 Units by mouth Daily. 1,000 Units Refills: 0 docusate sodium 100 mg Cap Commonly known as: Colace Take 100 mg by mouth 2 times daily. 100 mg Refills: 0 Eliquis 5 mg Tab Take 5 mg by mouth 2 times daily. Generic drug: apixaban 5 mg Refills: 0 furosemide 20 mg Tab [...] HYDROcodone-acetaminophen 5-325 mg Tab Commonly known as: [place] TAKE ONE TABLET BY MOUTH THREE TIMES A DAY NEEDED FOR PAIN Refills: 0 Insulin Tresiba FlexTouch U-100 100 unit/mL (3 mL) Inpn Inject 52 Units subcutaneously daily. Generic drug: insulin degludec 52 Units Refills: 0 LORazepam 0.5 mg Tab Commonly known as: Ativan Take 1 tablet by mouth every 8 hours as needed for Anxiety. And muscle spasm 0.5 mg Quantity: 20 tablet Refills: 0 losartan 100 mg Tab Commonly known as: COZAAR 50 mg daily. 50 mg Refills: 0 metoprolol tartrate [...] Commonly known as: MYCOLOG II Apply topically Twice daily. Refills: 0 polyethylene glycoL 17 gram Pwpk Commonly known as: Miralax Take 17 g by mouth daily as needed. 17 g Refills: 0 senna 8.6 mg Tab Commonly known as: Senokot Take 2 tablets by mouth 2 times daily. 2 tablet Quantity: 360 tablet Refills: 5 sodium phosphates Enem Commonly known as: FLEET Place 1 enema rectally once as needed. 1 enema Refills: 0 VITAMIN B COMPLEX NO.12-NIACIN ORAL Take 1 tablet by mouth daily. 1 tablet Refills: 0 Vitamin B-6 25 mg Tab TAKE FOUR TABLETS BY MOUTH EVERY DAY Generic drug: pyridoxine (vitamin B6) Refills: 0 Review of Systems Constitutional: Negative for chills and fever. Eyes: Negative for icterus. Respiratory: Negative for cough. Positive for SOB. Cardiovascular: Negative for chest pain. Positive for LE swelling. Genitourinary: Negative for difficulty urinating and hematuria. Negative for incontinence. GI: Negative for nausea, vomiting, constipation or [...] There is no distension. Musculoskeletal: Right lower le+ edema Left lower le+ edema. Lymphadenopathy: Cervical: No cervical adenopathy. Skin: General: Skin is warm. Positive for scattered erythematous macules. Neurological: General: No focal deficit present. Mental Status: She is alert. Psychiatric: Mood and Affect: Mood normal. Thought Content: Thought content normal. Judgment: Judgment normal. BP (!) 203/86 (Patient Position: Sitting) Pulse 84 Temp 36.6 ??C (97.8 ??F) (Temporal) Resp 20 Ht 161.3 cm (5' 3.5) Wt 105.1 kg (231 lb 12.8 oz) SpO2 100% BMI 40.41 kg/m?? Wt Readings from Last 3 Encounters: 11/23/21 105.1 kg (231 lb 12.8 oz) 11/16/21 101.6 kg (224 lb) 10/19/21 98.9 kg (218 lb) Pathology: 06/16/21 ADDENDUM DISCUSSION PAS and BMS stains were evaluated for Block A17, demonstrating nodular ??glomerulosclerosis. Electronically signed by: ?MD Fadumo, Rick Lee Verified: ??06/24/2021 11:01 ??Pathologist Performed at: ??-[facility] Dept. of Pathology, [place], [place] ? Surgical Pathology DIAGNOSIS Right kidney and ureter with paracaval and intracaval lymph nodes, excision: ??- Urothelial carcinoma. ?? (See SYNOPTIC REPORT), invasive into ? perinephric fat and renal parenchyma. 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 Electronically signed by: ?MD Fadumo, Rick Lee Verified: ??06/24/2021 10:58 ??Pathologist Performed at: ??-[facility] [place]??Dept. of Pathology, [place], [place] SYNOPTIC Specimen ?Procedure: ??Nephroureterectomy ?Specimen Laterality: [...] carcinoma with superimposed abundant degenerative changes Labs: 11/23/21- WBC-11.56 Hgb/Hct-10.9/35.6 Plt-294 ANC-8.47 Na-139 K+-4.6 [...] WBC 10.4, hemoglobin 12.2, platelet count 347, Imagin10/15/21 PET scan: IMPRESSION 1. Interval nephrectomy. 2. [...] IV plan for total of 12 cycles Ms. Pichardo initially presented with a diagnosis [...] will do MRI of lumbar and sacrum 11/16/21 # CHF: Follows with Dr. Ebony Beckham, had stress test on April 01, 2021 technically suboptimal, but no definite myocardial ischemia or evidence of prior infarction. EF 63% #Anemia: Multifactoral. It is slowly improving post surgery. Kidney insufficiency could contribute to anemia as well. It does contribute to her fatigue. Will monitor. # Elevated potassium-on losartan, follows with PCP. She recently cut her losartan in half. BP elevated today- 203/86. She will discuss with VNA nurse and PCP restarting losartan. #Bone sparing agent: Recieved bone sparing therapy zoledronic acid. She is not taking calcium supplement- Ca today 7.8. Will have her start calcium citrate 500mg three times a day with meals. Continue Vitamin D supplement. #UTI- symptomatic. C&S pending. Will start Cipro 250mg BID for 10 days.Prescription sent. PLAN: 1. Reschedule Enfortumab vedotin for next week. 2. Begin Cipro 250mg po BID- C&S pending at [facility]- nursing. 3. Begin calcium supplements as prescribed. 4. Follow up visit in one week with CBC,CMP and D1 Enfortumab vedotin. Nancy voiced understanding of the plan [...] Oncology 10/21/2022 Hospital Encounter Radiology Adilene Link [address] [place] [address] (Wo rk) 10/21/2022 Appointment Radiology Adilene Link[address] [place] [address] (Wo rk) 10/21/2022 Appointment Radiology Adilene Link[address] [place] [address] (Wo rk) 10/25/2022 Office Visit Hematology and Oncology Alberto Guy MD [facility] DR HEMATOLOGY/[place] [address] [address] [place] [address] 11/09/2022 Office Visit Urology Bobo Davis MD [facility] UROLOGY [place], [place] [address] (Wo rk) documented as of this encounter Visit Diagnoses Diagnosis Metastatic urothelial carcinoma 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
--- OUTSIDE RECORDS SUMMARY | 2022-10-07 18:38 | XMS_ITS | Encounter Summary ---
:1955 [place] [address] Care Team Providers Name Role Phone Derek Torres Primary Care Provider Encounter Details Date Type Department Care Team Description 10/28/2021 Telephone Hematology and Oncology at Thu Hernandez [facility] [place] [address] HEMATOLOGY/ONCOLOGY [phone] [place], [place] [address] (Wo rk) Social History Tobacco Use Types Packs/Day Years Used Date Former Smoker Cigarettes 0.25 0 Quit: 06/2020 Smokeless Tobacco: Never Used Alcohol Use Standard Drinks/Week Comments Not Currently 0 (1 standard drink = 0.6 oz pure alcoho l) Sex Assigned at Date Recorded Not on file documented as of this encounter Miscellaneous Notes Telephone Encounter - Thu Hernandez MD - 10/28/2021 2:59 PM EST Reason for call: Question about anticoagulation and lower back pain ?? Hospital: [facility] [place] [facility] ?? Ms. Cruz is a 66 years old female with diagnosis of metastatic urothelial cancer on nivolumab 480 mg for total of 12 cycles. She consulted to [facility] found with acute onset of DVT and worsening of back pain. Regarding recommendations given yesterday: #Acute DVT She will be transitioned to Eliquis 5 mg BID. We are aware that she is planned for bone biopsy, and this medication needs to be in hold 72 hours before procedure. I will let Dr. Jackman know about this. #Lower back pain in the setting of sclerotic lesions in lumbar spine According with Dr. Kwong's notes, she is symptomatic with back pain which is out of proportion of L5 lesion. A MRI was obtained this morning, that showed stable 2 lesions in L5 as reported in previous MRI, without new findings. There are not signs of spinal cord compression either. Thus, I recommended to optimize pain regimen and refer likely to Pain Clinic at [facility]. She will be safely discharged. ?? Thu Moreira M.D. Hematology and Oncology Fellow [facility] Pager # [phone] 10/27/21, 4:39 PM ?? This is not an official consult, as my recommendations are limited by my inability to interview and examine the patient as well as personally review the medical record, imaging, and laboratory findings. documented in this encounter Plan of Treatment Upcoming Encounters Date Type Specialty Care Team Description 10/21/2022 Appointment Hematology and Oncology 10/21/2022 Hospital Encounter Radiology Adilene Link[address] MEDICAL ONCOLOGY [place], [place] [phone] (Wo rk) 10/21/2022 Appointment Radiology Adilene Link[address] [address] (Wo rk) 10/21/2022 Appointment Radiology Adilene Link [address] [place] [address] (Wo rk) 10/25/2022 Office Visit Hematology and Oncology Alberto Guy MD [facility] DR HEMATOLOGY/[place] [address] MEDICAL ONCOLOGY [place], [place] [address] [phone] 11/09/2022 Office Visit Urology Bobo Davis [facility] [place] [address] (Wo rk) documented as of this encounter Visit Diagnoses Not on filedocumented in this encounter Care Teams Park Services Specialist Relationship Specialty Start Date End Date Derek Torres PA PCP - General Internal Medicine 06/07/21 [address] [place] [address] documented as of this encounter
--- OUTSIDE RECORDS SUMMARY | 2022-10-07 18:38 | XMS_ITS | Encounter Summary ---
:1955 Author Organization [facility] [place] [address] Care Team Providers Name Role Phone Derek Torres Primary Care Provider Encounter Details Date Type Department Care Team Description 12/07/2021 Office Visit Hematology/Oncology Adilene Link, Burkett static urothelial carcinoma; at [facility] MONUMENT STONECUTTER Hypertension, unspecified type [address] [place] [address] [place] [address] [place], [place] [phone] (Wo rk) Social History Tobacco Use Types [...] Sign Reading Time Taken Comments Blood Pressure 161/64 12/07/2021 9:20 AM EST Pulse 72 12/07/2021 9:20 AM EST Temperature 37.1 ??C (98.7 ??F) 12/07/2021 9:20 AM EST Respiratory Rate 16 12/07/2021 9:20 AM EST Oxygen Saturation 100% 12/07/2021 9:20 AM EST Inhaled Oxygen Concentration - - Weight 103.9 kg (229 lb) 12/07/2021 9:20 AM EST Height 161.3 cm (5' 3.5) 12/07/2021 9:20 AM EST Body Mass Index 39.92 12/07/2021 9:20 AM EST documented in this encounter Progress Notes Adilene Link, MONUMENT STONECUTTER - 12/07/2021 9:30 AM EST Images from the original note [...] retroperitoneal lymph nodes on January 22 at [facility]. Pathology is pending. PET scan demonstrated [...] Lovenox and and antibiotics with ciprofloxacin. INTERVAL history(12/07/21):- Nancy returns to the [facility] today to follow-up on metastatic urothelial carcinoma. She will be starting treatment with Padcev. Nancy's urinary symptoms have resolved and she completed the Cipro without any problems. No fevers or chills. She is feeling much better today. She saw Dr. Khalil for her BP and is back on Losartan 100mg and BP is much better today. Nochanges in skin rash with mild itching. She feels the Ativan is overall helping her mood and coping day to day. She states she had a good cry this past weekend. No other focal complaints today. PMH: UTI was treated with antibiotics Completed antibiotics for UTI about a week ago. 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 Finalpathology- [id number] High grade UCC with negative margins UTI E. coli 100,000 colonies PTSD/depression, diabetes mellitus on insulin, arthritis, , hernia repair x3, anxiety, hysterectomy for urinary incontinence 2 to 3 years ago Social History: No interval changes since last visit [id number] smoking history, quit 6 months ago, does [...] dressing Medications: Your Medications Accurate as of December 07, 2021 12:50 PM. If you have any questions, ask your nurse or doctor. Continued medications, unchanged Dose Details acetaminophen 325 mg Tab Commonly known as: Tylenol Take 3 tablets by mouth every 6 hours as needed for Pain. 975 mg Refills: 0 blood sugar diagnostic strips Strp 1 strip by NOT APPLICABLE route Three times a day. 1 strip Refills: 0 calcium-vitamin D 500 mg-5 mcg (200 unit) Tab Take 1 tablet by mouth 2 times daily (with meals). 1 tablet Refills: 0 cholecalciferol (Vitamin D3) 1,000 unit [...] HYDROcodone-acetaminophen 5-325 mg Tab Commonly known as: [place] TAKE ONE TABLET BY MOUTH THREE TIMES [...] 100 mg Tab Commonly known as: COZAAR 100 mg daily. 100 mg Refills: 0 metoprolol tartrate 25 mg [...] needed. 1 enema Refills: 0 STOPPED Medications ciprofloxacin 250 mg Tab Commonly known as: Cipro Stopped by: Adilene Link APRN Review of Systems Constitutional: Negative for chills [...] warm. Positive for scattered erythematous macules on chest. Neurological: General: No focal deficit present. Mental Status: She is alert. Psychiatric: Mood and Affect: Mood normal. Thought Content: Thought content normal. Judgment: Judgment normal. BP 161/64 (Patient Position: Sitting) Pulse 72 Temp 37.1 ??C (98.7 ??F) (Temporal) Resp 16 Ht 161.3 cm (5' 3.5) Wt 103.9 kg (229 lb) SpO2 100% BMI 39.92 kg/m?? Wt Readings from Last 3 Encounters: 12/07/21 103.9 kg (229 lb) 12/01/21 103.1 kg (227 lb 3.2 oz) 11/23/21 105.1 kg (231 lb 12.8 oz) Pathology: 06/16/21 ADDENDUM DISCUSSION PAS and BMS stains were evaluated for Block A17, demonstrating nodular ??glomerulosclerosis. Electronically signed by: ?MD Thorne Jason R. Verified: ??06/24/2021 11:01 ??Pathologist Performed at: ??-[facility] Dept. of [place]ology, [place], [place] ? Surgical Pathology DIAGNOSIS Right kidney and ureter with paracaval and intracaval lymph nodes, excision: ??- Urothelial carcinoma. ?? (See SYNOPTIC REPORT), invasive into ? perinephric fat and renal parenchyma. 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 Electronically signed by: ?MD Thorne Jason R. Verified: ??06/24/2021 10:58 ??Pathologist Performed at: ??-[facility]Dept. of Pathology, [place], [place] SYNOPTIC Specimen ?Procedure: ??Nephroureterectomy ?Specimen Laterality: [...] carcinoma with superimposed abundant degenerative changes Labs: 12/07/21- WBC-8.22 Hgb/Hct-10.9/36.0 Plt-254 ANC-5.87 Na-139 K+-5.1 [...] will do MRI of lumbar and sacrum Nancy returns today to begin treatment. BP has been stabilized, no urinary symptoms and she feels well today. Labs and toxicities assessed. We will proceed with treatment today. # CHF: Follows with Dr. Ebony Beckham, had stress test on April 01, 2021 technically suboptimal, but no definite myocardial ischemia or evidence of prior infarction. EF 63% #Anemia: Multifactoral. It is slowly improving post surgery. Kidney insufficiency could contribute to anemia as well. It does contribute to her fatigue. Will monitor. # Hypertension- 161/64. Now taking Losartan 100mg daily. #Bone sparing agent: Recieved bone sparing therapy zoledronic acid. Continue calcium citrate 500mg three times a day with meals. Continue Vitamin D supplement. #UTI- Symptoms resolved. PLAN: 1. Proceed with Enfortumab vedotin D1 today as scheduled. 3. Continue calcium supplements as prescribed 3. Follow up with PCP for BP control. 4. Follow up visit in one week with CBC,CMP and D8 Enfortumab vedotin. 5. Senna prescription refilled. Nancy voiced understanding of the plan and [...] Oncology 10/21/2022 Hospital Encounter Radiology Adilene Link[address] [address] (Wo rk) 10/21/2022 Appointment Radiology Adilene Link[address] [place] [address] (Wo rk) 10/21/2022 Appointment Radiology Adilene Link[address] [address] (Wo rk) 10/25/2022 Office Visit Hematology and Oncology Alberto Guy MD [facility] DR HEMATOLOGY/[place] [address] [address] [place] [address] 11/09/2022 Office Visit Urology Bobo Davis MD [facility] [address] UROLOGY [place], [place] [address] (Wo rk) documented as of this encounter Visit Diagnoses Diagnosis Metastatic urothelial carcinoma 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
--- OUTSIDE RECORDS SUMMARY | 2022-10-07 18:38 | XMS_ITS | Encounter Summary ---
:1955 Author Organization [facility] [place] [address] Care Team Providers Name Role Phone Derek Torres Primary Care Provider Encounter Details Date Type Department Care Team Description 11/03/2021 Telephone Hematology/Oncology at [facility] Adilene [address] MEDICAL ONCOLOGY [place], [place] [phone] [place] [address] (Wo rk) Social History Tobacco Use Types [...] Oncology 10/21/2022 Hospital Encounter Radiology Adilene Link [address] MEDICAL ONCOLOGY [place], [place] [phone] (Wo rk) 10/21/2022 Appointment Radiology Adilene Link [address] ONCOLOGY [place], [place] [phone] (Wo rk) 10/21/2022 Appointment Radiology Adilene Link [address] ONCOLOGY [place], [place] [phone] (Wo rk) 10/25/2022 Office Visit Hematology and Oncology Alberto Guy MD [facility] HEMATOLOGY/[place] [address] [address] MEDICAL ONCOLOGY [place], [place] [phone] 11/09/2022 Office Visit Urology Bobo Davis MD [facility] UROLOGY [place], [place] [address] (Wo rk) documented as of this encounter Visit Diagnoses Diagnosis Metastatic urothelial carcinoma 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
--- OUTSIDE RECORDS SUMMARY | 2022-10-07 18:38 | XMS_ITS | Encounter Summary ---
:1955 Author Organization [facility] [place] [address] Care Team Providers Name Role Phone Derek Torres Primary Care Provider Encounter Details Date Type Department Care Team Description 01/04/2022 Notes Only Hematology/Oncology at Julia Morris MSW [facility] OFFICE OF CARE [address] [place] [phone] Social History Tobacco Use Types Packs/Day Years Used Date Former Smoker Cigarettes 0.25 0 Quit: 06/2020 Smokeless Tobacco: Never Used Alcohol Use Standard Drinks/Week Comments Not Currently 0 (1 standard drink = 0.6 oz pure alcoho l) Sex Assigned at Date Recorded Not on file documented as of this encounter Progress Notes Julia Morris MSW - 01/04/2022 12:22 PM EST Follow up with pt during her infusion visit today. Pt indicated she is trying to push herself. She is working with PT and OT services at home. She continues with [facility] RN and BETA TESTER services too. Her tends to the assistant golf coach. He is transporting her to her appointments. Overall she feels like she is managing as best she can. Offered support. Pt did not identify any new needs at this time. Reminded pt of [employer] availability and contact information. Will continue to follow for support and resources. Brief assessment Supportive Counseling documented in this encounter Plan of Treatment Upcoming Encounters Date Type Specialty Care Team Description 10/21/2022 Appointment Hematology and Oncology 10/21/2022 Hospital Encounter Radiology Adilene Link[address] [place] [address] (Wo rk) 10/21/2022 Appointment Radiology Adilene Link[address] [place] [address] (Wo rk) 10/21/2022 Appointment Radiology Adilene Link[address] [place] [address] (Wo rk) 10/25/2022 Office Visit Hematology and Oncology Alberto Guy MD [facility] DR HEMATOLOGY/[place] [address] [address] Link[address] MEDICAL ONCOLOGY [place], [place] [phone] 11/09/2022 Office Visit Urology Bobo Davis MD [facility] DR UROLOGY [place], [place] [address] (Wo rk) documented as of this encounter Visit Diagnoses Not on filedocumented in this encounter Care Teams Book Repairer Relationship Specialty Start Date End Date Derek Torres PA PCP - General Internal Medicine 06/07/21 Mahnaz CARLSON [address] [place] [address] documented as of this encounter
--- OUTSIDE RECORDS SUMMARY | 2022-10-07 18:38 | XMS_ITS | Encounter Summary ---
:1955 Author Organization [facility] [place] [address] Care Team Providers Name Role Phone Derek Torres Primary Care Provider Reason for Visit Diagnostic Test (Routine) - Canceled Specialty Diagnoses / Procedures Referred By Contact Refer red To Contact Radiology Diagnoses Metastatic urothelial carcinoma Bone lesion Alberto Bhatia MD Procedures MRI Lumbar Spine wwo Contrast [facility] HEMATOLOGY/[place] [address] Referral ID Status Reason Start Expiration Visits Visits Date Date Requested Authorized [id number] Canceled Specialty 04/18/2023 1 1 Service 1 Requested Encounter Details Date Type Department Care Team Description 11/25/2021 Hospital Encounter MRI [place] [facility] [place]ory Bhatiaed (P-PATIENT [facility] MD Alberto [address] [facility]) [facility] [address] HEMATOLOGY/ONCOL [phone] [place] [address] Social History Tobacco Use Types Packs/Day Years Used Date Former Smoker Cigarettes 0.25 0 Quit: 06/2020 Smokeless Tobacco: Never Used Alcohol Use Standard Drinks/Week Comments Not Currently 0 (1 standard drink = 0.6 oz pure alcoho l) Sex Assigned at Date Recorded Not on file documented as of this encounter Medications at Time of Discharge Medication Sig Dispensed Refills Start Date End Date apixaban (Eliquis) 5 Take 5 mg by [...] Pen Needle 32 0 02/18/2021 gauge x /32 Needle blood sugar diagnostic 1 strip by NOT 0 strips Strip APPLICABLE route Three times a day. cholecalciferol, Take 1,000 Units by 0 Vitamin D3, (Vitamin mouth Daily. D3) 1,000 unit Tablet insulin degludec Inject 42 Units 0 (Insulin Tresiba subcutaneously daily. FlexTouch U-100) 100 unit/mL (3 mL) Insulin Pen senna (Senokot) 8.6 mg Take 2 tablets by 360 tablet 5 202012/07/2021 TabletIndications: mouth 2 times daily. Metastatic urothelial carcinoma ciprofloxacin (Cipro) Take 1 tablet by mouth 20 tablet 0 12/07/2021 250 mg 2 times daily. TabletIndications: Metastatic urothelial carcinoma LORazepam (Ativan) 0.5 Take 1 tablet by mouth 20 tablet 0 1 01/19/2021 03/15/2022 mg Tablet every 8 hours as needed for Anxiety. And muscle spasm HYDROcodone-acetaminop TAKE ONE TABLET BY 0 06/2803/15/2022 hen ([place]) 5-325 mg MOUTH THREE TIMES A Tablet DAY NEEDED FOR PAIN sodium phosphates Place 1 enema rectally 0 202003/22/2022 (FLEET) Enema once as needed. furosemide (Lasix) 20 Take 20 mg by mouth 2 0 08/09/2022 mg Tablet times daily. docusate sodium Take 100 mg by mouth 2 0 01/11/2022 (Colace) 100 mg times daily. Capsule nystatin-triamcinolone Apply topically Twice 0 01/04/2022 (MYCOLOG II) Cream daily. documented as of this encounter Progress Notes Chhaya Bhagat RN - 11/22/2021 8:00 AM EST MRI PRE-SEDATION ASSESSMENT NOTE NAME: Nancy Pichardo AGE: 66 y.o. : 1955 [address] [place] [address] Female [phone] (home) No relevant phone numbers on file. DELORES Zaman None Allergies Allergen Reactions ??? Gabapentin ??? Atorvastatin [...] [Transparent Dressings] Dermatitis Tegaderm/stat-lock of IV dressing Date/Time of call: November 22, 2021/8:00 AM/ PREVIOUS MRI SCAN? HEIGHT: WEIGHT: SCHEDULED SCAN: MRI LUMBAR SPINE WITH/WO CONTRAST [[id number]] SUBJECTIVE: CAN YOU LAY FLAT? AIRWAY/BREATHING ISSUES? DO YOU HAVE ANY INVOLUNTARY MOVEMENTS? (explain) DO YOU HAVE ANY PAIN? DO YOU TAKE PAIN MED ON A DAILY BASIS? ASSESSMENT: PLAN: ( ) You must have a jukebox route driver present when you check in. This patient has been informed that they require a jukebox route driver to drive them home after this procedure. In the absence of a jukebox route driver, IR will not be able to sedate for your scan. Pt verbalized understanding of these instructions during the pre-procedure education via phone. Yes [employer] [place] of jukebox route driver: Phone number: PRIOR SCAN DATE/S SEDATION TYPE SUCCESSFUL Revised 04/24/18 documented in this encounter Plan of Treatment Upcoming Encounters Date Type Specialty Care Team Description 10/21/2022 Appointment Hematology and Oncology 10/21/2022 Hospital Encounter Radiology Adilene Link[address] [place] [address] (Wo rk) 10/21/2022 Appointment Radiology Adilene Link[address] [place] [address] (Wo rk) 10/21/2022 Appointment Radiology Adilene Link[address] [place] [address] (Wo rk) 10/25/2022 Office Visit Hematology and Oncology Alberto Guy MD [facility] DR HEMATOLOGY/[place] [address] [address] Link[address] MEDICAL ONCOLOGY [place], [place] [address] 11/09/2022 Office Visit Urology Bobo Davis MD [facility] UROLOGY [place], [place] [address] (Wo rk) documented as of this encounter Visit Diagnoses Not on filedocumented in this encounter Care Teams Client Support Analyst Relationship Specialty Start Date End Date Derek Torres PA PCP - General Internal Medicine 06/07/21 Mahnaz CARLSON [address] [place], [place] [phone] documented as of this encounter
--- OUTSIDE RECORDS SUMMARY | 2022-10-07 18:38 | XMS_ITS | Encounter Summary ---
:1955 Author Organization [place] [address] Care Team Providers Name Role Phone Derek Torres Primary Care Provider Reason for Visit Reason Onset Date Comments Other 10/29/2021 eliquis to lovenox Encounter Details Date Type Department Care Team Description 10/29/2021 Telephone Hematology/Oncology at Barb Dennis RN Other (eliquis to [facility] lovenox) [address] [phone] Social History Tobacco Use Types Packs/Day Years Used Date Former Smoker Cigarettes 0.25 0 Quit: 06/2020 Smokeless Tobacco: Never Used Alcohol Use Standard Drinks/Week Comments Not Currently 0 (1 standard drink = 0.6 oz pure alcoho l) Sex Assigned at Date Recorded Not on file documented as of this encounter Miscellaneous Notes Telephone Encounter - Barb Dennis RN - 10/29/2021 3:53 PM EST Pt was started on eliquis bid for DVT. Dr. Perdomo would like her switched to lovenox 100 mg bid starting tonight at 6pm so she can take up to 24 hours prior to her bone biospy. Pt agrees to this. She has given herself lovenox in past and has three 100 mg syringes at home. She will start it tonight.New script sent in to [facility] in [place]. Pt will be instructed following her biopsy when to go back on eliquis. Pt agrees with plan. documented in this encounter Plan of Treatment Upcoming Encounters Date Type Specialty Care Team Description 10/21/2022 Appointment Hematology and Oncology 10/21/2022 Hospital Encounter Radiology Adilene Link[address] [place] [address] (Wo rk) 10/21/2022 Appointment Radiology Adilene Link[address] [place] [address] (Wo rk) 10/21/2022 Appointment Radiology Adilene Link[address] [place] [address] (Wo rk) 10/25/2022 Office Visit Hematology and Oncology Alberto Guy MD [facility] [address] HEMATOLOGY/[place] [address] [address] MEDICAL ONCOLOGY [place], [place] [address] 11/09/2022 Office Visit Urology Bobo Davis MD [facility] [address] UROLOGY [place], [place] [address] (Wo rk) documented as of this encounter Visit Diagnoses Not on filedocumented in this encounter Care Teams Hand Pleater Relationship Specialty Start Date End Date Derek Torres PA PCP - General Internal Medicine 06/07/21 Mahnaz CARLSON [address] [place] [address] documented as of this encounter
--- OUTSIDE RECORDS SUMMARY | 2022-10-07 18:38 | XMS_ITS | Encounter Summary ---
:1955 Author Organization [facility] [place] [address] Care Team Providers Name Role Phone Derek Torres Primary Care Provider Reason for Visit Reason Comments IV Medication Zometa Treatment/Therapy Plan Authorization (Routine) - Authorized Specialty Diagnoses / Procedures Referred By Contact Refer red To Contact Diagnoses Metastatic urothelial carcinoma Bone metastases Alberto Bhatia MD [facility] Procedures TC ZOLEDRONIC ACID, 1 MG, INJECTION TC PALONOSETRON HCL, 25MCG, INJECTION (ALOXI) J3489 ZOMETA [address] HEMATOLOGY/[place] [phone] Fax: Referral ID Status Reason Start Date Expiration Date Visits V isits Requested Authorized [id number] Authorized 05/31/2022 05/30/2023 25 25 Encounter Details Date Type Department Care Team Description 11/16/2021 Infusion Hematology Oncology at [facility] metastases; [facility] Metastatic urothelial carcin flaquita [address] [place], [place] [phone] Social History Tobacco Use Types Packs/Day Years Used Date Former Smoker Cigarettes 0.25 0 Quit: 06/2020 Smokeless Tobacco: Never Used Alcohol Use Standard Drinks/Week Comments Not Currently 0 (1 standard drink = 0.6 oz pure alcoho l) Sex Assigned at Date Recorded Not on file documented as of this encounter Progress Notes Brittny Rondon, RN - 11/16/2021 12:00 PM EST Infusion Note Diagnosis: Urothelial cancer Treatment: Zometa Infusion Creatinine Clearance: 54.279, CA++ - 9.4 IV Access: PIV Zometa 3 mg infused over 15 minutes. Tums given. Patient instructed on side effects of Zometa. Patient states understanding of teaching, Patient aware to call clinic with any questions or concerns. PIV discontinued prior to dismissal. Plan: Return to clinic as scheduled. documented in this encounter Plan of Treatment Upcoming Encounters Date Type Specialty Care Team Description 10/21/2022 Appointment Hematology and Oncology 10/21/2022 Hospital Encounter Radiology Adilene Link[address] [place] [address] (Wo rk) 10/21/2022 Appointment Radiology Adilene Link[address] [place] [address] (Wo rk) 10/21/2022 Appointment Radiology Adilene Link [address] [place] [address] (Wo rk) 10/25/2022 Office Visit Hematology and Oncology Alberto Guy MD [facility] DR HEMATOLOGY/[place] [address] [address] [place] [address] 11/09/2022 Office Visit Urology Bobo Davis MD [facility] DR UROLOGY [place], [place] [address] (Wo rk) documented as of this encounter Visit Diagnoses Diagnosis Bone metastases Secondary malignant neoplasm of bone and bone marrow Metastatic urothelial carcinoma 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 documented in this encounter Administered Medications Inactive Administered Medications - up to 3 most recent administrations Medication Order MAR Action Action Date Dose Rate Site calcium carbonate (Tums) chewable Given 11/16/2021 12:46 PM EST 500 mg tablet 500 mg 500 mg, Oral, ONCE, 1 dose, On Mon11/16/21 at 1245, Routine zoledronic acid (Zometa) 3 mg in New Bag 11/16/2021 12:47 PM EST 3 mg 415 mL/hr sodium chloride 0.9% 103.75 mL infusion 3 mg, Intravenous, ONCE, 1 dose, On Mon11/16/21 at 1245, Administer over 15 Minutes, Do not administer [...] metastases documented in this encounter Care Teams Environmental Services Technician Relationship Specialty Start Date End Date Derek Torres PA PCP - General Internal Medicine 06/07/21 [address] [place] [address] documented as of this encounter
--- OUTSIDE RECORDS SUMMARY | 2022-10-07 18:38 | XMS_ITS | Encounter Summary ---
:1955 Author Organization [facility] [place] [address] Care Team Providers Name Role Phone Derek Torres Primary Care Provider Encounter Details Date Type Department Care Team Description 01/11/2022 Office Visit Hematology/Oncology Rah Bhatia MD [facility] DR HEMATOLOGY/[place] [address] [facility]; [facility] [address] [place] [address] [place] [address] Metastatic urothelial carcinoma; [address] Drug-induced skin rash; [place], [place] Bone metast ases; [id number] Encounter for antineoplastic chemotherapy and immunotherapy [phone] Social History Tobacco Use Types Packs/Day Years Used Date Former Smoker Cigarettes 0.25 0 Quit: 06/2020 Smokeless Tobacco: Never Used Alcohol Use Standard Drinks/Week Comments Not Currently 0 (1 standard drink = 0.6 oz pure alcoho l) Sex Assigned at Date Recorded Not on file documented as of this encounter Last Filed Vital Signs Vital Sign Reading Time Taken Comments Blood Pressure - - Pulse 86 01/11/2022 11:26 AM EST Temperature 36.5 ??C (97.7 ??F) 01/11/2022 11:26 AM EST Respiratory Rate 20 01/11/2022 11:26 AM EST Oxygen Saturation 98% 01/11/2022 11:26 AM EST Inhaled Oxygen Concentration - - Weight 103.9 kg (229 lb) 01/11/2022 11:26 AM EST Height 161.3 cm (5' 3.5) 01/11/2022 11:26 AM EST Body Mass Index 39.92 01/11/2022 11:26 AM EST documented in this encounter Progress Notes Alberto Bhatia MD - 01/11/2022 11:30 AM EST Hematology & Medical Oncology [address] [id number] Nancy returns today to continue treatment for [...] Lovenox and and antibiotics with ciprofloxacin. INTERVAL history(01/11/22):- Nancy returns to the [facility] today to continue treatment for metastatic urothelial carcinoma. Her main complaint is back pain, which limits her mobility. Pain is not well controlled on oxycodone and acetaminophen. She has follow-up appointment with your PCP on Monday. Complaints on skin rash and constipation. She believes she had a reaction to Zometa and wouldlike to stop it. Nancy feels easily tired b She has a scattered macular rash on her arms and upper torso. It is itchy. Denies any urinary symptoms today. No fevers or chills. She has to take laxatives daily to keep her bowels going. PMH: No interval changes since last visit UTI was treated with antibiotics Completed antibiotics for UTI about a week ago. 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 Finalpathology- [id number] High grade UCC with negative margins UTI E. coli 100,000 colonies PTSD/depression, diabetes mellitus on insulin, arthritis, , hernia repair x3, anxiety, hysterectomy for urinary incontinence 2 to 3 years ago Social History: No interval changes since last visit [id number] smoking history, quit 6 months ago, does [...] dressing Medications: Your Medications Accurate as of January 11, 2022 11:46 AM. If you have any questions, ask [...] daily (with meals). 1 tablet Refills: 0 CERAVE AM TOP Apply topically. Refills: 0 cholecalciferol (Vitamin D3) 1,000 unit [...] HYDROcodone-acetaminophen 5-325 mg Tab Commonly known as: [place] TAKE ONE TABLET BY MOUTH THREE TIMES A DAY NEEDED FOR PAIN Refills: 0 hydrocortisone 2.5 % Crea Apply [...] 50 mg daily. 50 mg Refills: 0 Jeanne Pen [...] once as needed. 1 enema Refills: 0 Review of Systems Constitutional: Negative [...] Content: Thought content normal. Judgment: Judgment normal. Pulse 86 Temp 36.5 ??C (97.7 ??F) (Temporal) Resp 20 Ht 161.3 cm (5' 3.5) Wt 103.9 kg (229 lb) SpO2 98% BMI 39.92 kg/m?? Wt Readings from Last 3 Encounters: 01/11/22 103.9 kg (229 lb) 01/04/22 104.3 kg (230 lb) 12/21/21 103.4 kg (228 lb) Pathology: 06/16/21 ADDENDUM DISCUSSION PAS and BMS stains were evaluated for Block A17, demonstrating nodular ??glomerulosclerosis. Electronically signed by: ?MD Thorne Jason R. Verified: ??06/24/2021 11:01 ??Pathologist Performed at: ??-[facility] Dept. of Pathology, [place], [place] ? Surgical Pathology DIAGNOSIS Right kidney and ureter with paracaval and intracaval lymph nodes, excision: ??- Urothelial carcinoma. ?? (See SYNOPTIC REPORT), invasive into ? perinephric fat and renal parenchyma. 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 Electronically signed by: ?MD Thorne Jason R. Verified: ??06/24/2021 10:58 ??Pathologist Performed at: ??-[facility]??Dept. of Pathology, [address], [place], [place] SYNOPTIC Specimen ?Procedure: ??Nephroureterectomy ?Specimen Laterality: [...] carcinoma with superimposed abundant degenerative changes Labs: 01/11/2022 WBC 8.69, hemoglobin 12, platelet count 248, ANC 6.09, sodium 136, potassium 5.1, BUN 33, creatinine 1.5, glucose 174, calcium 8.6, magnesium 2.4, TB 0.4, AST 26, ALT 39, alkaline phosphatase 93, albumin 3.3, TSH 2.62, free T4 1.4. [...] as she believeshad a reaction to her. # CHF: Follows with Dr. Ebony Beckham, had stress test on April 01, 2021 technically suboptimal, but no definite myocardial ischemia or evidence of prior infarction. EF 63% #Anemia: Multifactoral. It is slowly improving post surgery. Kidney insufficiency could contribute to anemia as well. It does contribute to her fatigue. Will monitor. # Hypertension- 171/67 Now taking Losartan 100mg daily. BP [...] Continue steroid cream as prescribed. PLAN: 1. Hold enfortumab vedotin for 2 weeks 2. D/c Zometa 3. Follow-up with PCP for pain management 4. Follow up visit in 2 weeks with CBC,CMP and C3D1 Enfortumab vedotin. Nancy voiced understanding of the [...] and Oncology 10/21/2022 Hospital Encounter Radiology Adilene Link[address] MEDICAL ONCOLOGY [place], [place] [phone] (Kwadwo morataya) 10/21/2022 Appointment Radiology Adilene Link[address] MEDICAL ONCOLOGY [place], [place] [phone] (Kwadwo rk) 10/21/2022 Appointment Radiology Adilene Link[address] MEDICAL ONCOLOGY [place], [place] [phone] (Kwadwo morataya) 10/25/2022 Office Visit Hematology and Oncology Alberto Guy MD [facility] DR HEMATOLOGY/[place] [address] Adilene Link APRN [address] [place] [address] [place] [address] 11/09/2022 Office Visit Urology Bobo Davis MD [facility] UROLOGY [place], [place] [address] (Wo rk) documented as of this encounter Visit Diagnoses Diagnosis High risk medication use Encounter for long-term (current) use of other medications Metastatic urothelial carcinoma 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 Drug-induced skin rash Toxic erythema Bone metastases Secondary malignant neoplasm of bone and bone marrow Encounter for antineoplastic chemotherap y and immunotherapy documented in this encounter Care Teams Life Enrichment Assistant Relationship Specialty Start Date End Date Derek Torres PA PCP - General Internal Medicine 06/07/21 Mahnaz [address] [place] [address] documented as of this encounter
--- OUTSIDE RECORDS SUMMARY | 2022-10-07 18:38 | XMS_ITS | Encounter Summary ---
:1955 Author Organization [facility] [address] Care Team Providers Name Role Phone Derek Torres Primary Care Provider Encounter Details Date Type Department Care Team Description 12/21/2021 Office Visit Hematology/Oncology Rah Bhatia MD [facility] DR HEMATOLOGY/[place] [address] [facility] [address] [place] [address] DR [place] [address] Urothelial carcinoma of kidney, right; [address] Encounter for antineoplastic chemotherapy and immunotherapy; [place], [place] Drug-induce d skin rash [id number] Social History Tobacco Use Types Packs/Day Years Used Date Former Smoker Cigarettes 0.25 0 Quit: 06/2020 Smokeless Tobacco: Never Used Alcohol Use Standard Drinks/Week Comments Not Currently 0 (1 standard drink = 0.6 oz pure alcoho l) Sex Assigned at Date Recorded Not on file documented as of this encounter Last Filed Vital Signs Vital Sign Reading Time Taken Comments Blood Pressure 161/63 12/21/2021 11:54 AM EST Pulse 77 12/21/2021 11:54 AM EST Temperature 36.5 ??C (97.7 ??F) 12/21/2021 11:54 AM EST Respiratory Rate 20 12/21/2021 11:54 AM EST Oxygen Saturation 97% 12/21/2021 11:54 AM EST Inhaled Oxygen Concentration - - Weight 103.4 kg (228 lb) 12/21/2021 11:54 AM EST Height 161.3 cm (5' 3.5) 12/21/2021 11:54 AM EST Body Mass Index 39.75 12/21/2021 11:54 AM EST documented in this encounter Progress Notes Alberto Bhatia MD - 12/21/2021 11:30 AM EST Images from the original [...] retroperitoneal lymph nodes on January 22 at [facility]. Pathology is pending. PET scan demonstrated [...] Lovenox and and antibiotics with ciprofloxacin. INTERVAL history(12/21/21):- Nancy returns to the [facility] today to continue treatment for metastatic urothelial carcinoma. . Her main complaint is back pain, which limits her mobility. She feels easily tired. Complaints on mild itchy rash on her chest. Denies any urinary symptoms today. Nofevers or chills. She has to take laxatives daily to keep her bowels going. No fever or chills. No nausea or vomiting. No other focal complaints today. PMH: No interval changes since last visit UTI was treated with antibiotics Completed antibiotics for UTI about a week ago. 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 Finalpathology- [id number] High grade UCC with negative margins UTI E. coli 100,000 colonies PTSD/depression, diabetes mellitus on insulin, arthritis, , hernia repair x3, anxiety, hysterectomy for urinary incontinence 2 to 3 years ago Social History: No interval changes since last visit [id number] smoking history, quit 6 months ago, does [...] Medications: Your Medications Accurate as of December 21, 2021 12:10 PM. If you have any questions, ask [...] HYDROcodone-acetaminophen 5-325 mg Tab Commonly known as: [place] TAKE ONE TABLET BY MOUTH THREE TIMES [...] 100 mg daily. 100 mg Refills: 0 Jeanne Pen Needle 32 [...] Thought content normal. Judgment: Judgment normal. BP 161/63 (Patient Position: Sitting) Pulse 77 Temp 36.5 ??C (97.7 ??F) (Temporal) Resp 20 Ht 161.3 cm (5' 3.5) Wt 103.4 kg (228 lb) SpO2 97% BMI 39.75 kg/m?? Wt Readings from Last 3 Encounters: 12/21/21 103.4 kg (228 lb) 12/14/21 102.6 kg (226 lb 3.2 oz) 12/07/21 103.9 kg (229 lb) Pathology: 06/16/21 ADDENDUM DISCUSSION PAS and BMS stains were evaluated for Block A17, demonstrating nodular ??glomerulosclerosis. Electronically signed by: ?MD Thorne Jason R. Verified: ??06/24/2021 11:01 ??Pathologist Performed at: ??-[facility] Dept. of Pathology, [place], [place] ? Surgical Pathology DIAGNOSIS Right kidney and ureter with paracaval and intracaval lymph nodes, excision: ??- Urothelial carcinoma. ?? (See SYNOPTIC REPORT), invasive into ? perinephric fat and renal parenchyma. 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 Electronically signed by: ?MD Thorne Jason R. Verified: ??06/24/2021 10:58 ??Pathologist Performed at: ??-[facility]??Dept. of Pathology, [place], [place] SYNOPTIC Specimen ?Procedure: ??Nephroureterectomy ?Specimen Laterality: [...] carcinoma with superimposed abundant degenerative changes Labs: 12/21/2021 sodium 135, potassium 5.2, BUN 30, [...] will do MRI of lumbar and sacrum 12/21/21 Nancy returns today for C1D15 of enfortumab. Blood sugar is 180 today. We will proceed with the treatment todayl. She understands this can be a side effect of the therapy and importance of glucose control in continuing therapy. Labs and toxicities assessed. We will see her back in 2 weeks for cycle 2. Plan to assess with PET scan or CT scan after completion of 3 cycles of Padcev. # CHF: Follows with Dr. Ebony Beckham, had stress test on April 01, 2021 technically suboptimal, but no definite myocardial ischemia or evidence of prior infarction. EF 63% #Anemia: Multifactoral. It is slowly improving post surgery. Kidney insufficiency could contribute to anemia as well. It does contribute to her fatigue. Will monitor. # Hypertension- 161/64. Now taking Losartan 100mg daily. #Bone sparing agent: Zometa 3 mg dose adjusted to kidney function every 4 weeks. Continue calcium and vitamin D. Recieved bone sparing therapy zoledronic acid. Continue calcium citrate 500mg three times a day with meals. Continue Vitamin D supplement. #UTI- Symptoms resolved. PLAN: 1. Proceed with Enfortumab vedotin today as scheduled. 2. Continue Zometa 3mg IV every 4 weeks, due today 3. Continue calcium supplements as prescribed 3. Follow up with PCP for glucose control. 4. Follow up visit in two weeks with CBC,CMP and D1C2 Enfortumab vedotin. Nancy voiced understanding of the [...] Oncology 10/21/2022 Hospital Encounter Radiology Adilene Link, [address] [place] [address] (Wo rk) 10/21/2022 Appointment Radiology Adilene Link [address] MEDICAL ONCOLOGY [place], [place] [phone] (Wo rk) 10/21/2022 Appointment Radiology Adilene Link[address] MEDICAL ONCOLOGY [place], [place] [phone] (Wo rk) 10/25/2022 Office Visit Hematology and Oncology Alberto Guy MD [facility] HEMATOLOGY/[place] [address] [address] MEDICAL ONCOLOGY [place], [place] [phone] 11/09/2022 Office Visit Urology Bobo Davis MD [facility] UROLOGY [place], [place] [address] (Wo rk) documented as of this encounter Visit Diagnoses Diagnosis High risk medication use Encounter for long-term (current) use of other medications Urothelial carcinoma of kidney, right Encounter for antineoplastic chemotherap y and immunotherapy Drug-induced skin rash Toxic erythema documented in this encounter Care Teams Information Technology Coordinator Relationship Specialty Start Date End Date Derek Torres PA PCP - General Internal Medicine 06/07/21 Mahnaz [address] [place], [place] [phone] documented as of this encounter
--- OUTSIDE RECORDS SUMMARY | 2022-10-07 18:38 | XMS_ITS | Encounter Summary ---
:1955 Author Organization [facility] [place] [address] Care Team Providers Name Role Phone Derek Torres Primary Care Provider Reason for Referral Diagnostic Test (Routine) - Closed Specialty Diagnoses / Procedures Referred By Contact Refer red To Contact Radiology Diagnoses Metastatic urothelial carcinoma Alberto Bhatia MD [facility] Rad Nuclear Med Procedures NM PET CT Skull Base to Mid-thigh [facility] HEMATOLOGY/[place] [address] [place] [address] Referral ID Status Reason Start Date Expiration Date Visits V isits Requested Authorized [id number] Closed Specialty 02/07/2022 08/10/2023 1 1 Service Requested Encounter Details Date Type Department Care Team Description 01/25/2022 Office Visit Hematology/Oncology Rah Bhatia MD [facility] HEMATOLOGY/[place] [address] Metastatic [facility]rothelial [facility] (Primary Dx[facility] [address] [place] [address] [place] [address] Drug-induced skin rash; [address] [place] [address] Bone metastases; [place], [place] Encounter f or antineoplastic chemotherapy and immunotherapy; [address] High risk medication use; [phone] Hyperkalemia Social History Tobacco Use Types Packs/Day Years Used Date Former Smoker Cigarettes 0.25 0 Quit: 06/2020 Smokeless Tobacco: Never Used Alcohol Use Standard Drinks/Week Comments Not Currently 0 (1 standard drink = 0.6 oz pure alcoho l) Sex Assigned at Date Recorded Not on file documented as of this encounter Last Filed Vital Signs Vital Sign Reading Time Taken Comments Blood Pressure 156/66 01/25/2022 11:21 AM EST Pulse 71 01/25/2022 11:21 AM EST Temperature 36.5 ??C (97.7 ??F) 01/25/2022 11:21 AM EST Respiratory Rate 22 01/25/2022 11:21 AM EST Oxygen Saturation 99% 01/25/2022 11:21 AM EST Inhaled Oxygen Concentration - - Weight 100.6 kg (221 lb 12.8 oz) 01/25/2022 11:21 AM EST Height 161.2 cm (5' 3.47) 01/25/2022 11:21 AM EST Body Mass Index 38.72 01/25/2022 11:21 AM EST documented in this encounter Progress Notes Alberto Bhatia MD - 01/25/2022 11:00 AM EST Images from the original note were not included. Hematology & Medical Oncology [address] [phone] Nancy returns today to continue treatment for [...] Lovenox and and antibiotics with ciprofloxacin. INTERVAL history(01/25/22):- Nancy returns to the [facility] today to continue treatment formetastatic urothelial carcinoma. Her main complaint is back pain, which limits her mobility and muscle ache. She received hydromorphone and got oversedated. Went to emergency room on January 16. Continue to follow for pain management with PCP. She feels very tired. She has a scattered macular rash onher arms and upper torso. It is itchy. No fevers or chills. PMH: No interval changes since last visit UTI was treated with antibiotics Completed antibiotics for UTI about a week ago. 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 Finalpathology- [id number] High grade UCC with negative margins UTI E. coli 100,000 colonies PTSD/depression, diabetes mellitus on insulin, arthritis, , hernia repair x3, anxiety, hysterectomy for urinary incontinence 2 to 3 years ago Social History: No interval changes since last visit [id number] smoking history, quit 6 months ago, does [...] Medications: Your Medications Accurate as of January 25, 2022 11:59 PM. If you have any questions, ask [...] by mouth Daily. 1,000 Units Refills: 0 fluconazole 100 mg Tab Commonly known as: Diflucan Take 1 tablet by mouth daily. 100 mg Quantity: 7 tablet Refills: 0 furosemide 20 mg Tab Commonly [...] HYDROcodone-acetaminophen 5-325 mg Tab Commonly known as: [place] TAKE ONE TABLET BY MOUTH THREE TIMES A DAY NEEDED FOR PAIN Refills: 0 hydrocortisone 2.5 % Crea Apply topically 2 times daily. Refills: 0 HYDROmorphone 2 mg Tab Commonly known as: Dilaudid TAKE 1 TO 2 TABLETS BY MOUTH EVERY 6 HOURS NEEDED FOR PAIN Refills: 0 Insulin Tresiba [...] Thought content normal. Judgment: Judgment normal. BP 156/66 (Patient Position: Sitting) Pulse 71 Temp 36.5 ??C (97.7 ??F) (Temporal) Resp 22 Ht 161.2 cm (5' 3.47) Wt 100.6 kg (221 lb 12.8 oz) SpO2 99% BMI 38.72 kg/m?? Wt Readings from Last 3 Encounters: 01/25/22 100.6 kg (221 lb 12.8 oz) 01/11/22 103.9 kg (229 lb) 01/04/22 104.3 kg (230 lb) Pathology: 06/16/21 ADDENDUM DISCUSSION PAS and BMS stains were evaluated for Block A17, demonstrating nodular ??glomerulosclerosis. Electronically signed by: ?MD Thorne Jason R. Verified: ??06/24/2021 11:01 ??Pathologist Performed at: ??-[facility] Dept. of Pathology, [place], [place] ? Surgical Pathology DIAGNOSIS Right kidney and ureter with paracaval and intracaval lymph nodes, excision: ??- Urothelial carcinoma. ?? (See SYNOPTIC REPORT), invasive into ? perinephric fat and renal parenchyma. 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 Electronically signed by: ?MD Thorne Jason R. Verified: ??06/24/2021 10:58 ??Pathologist Performed at: ??-[facility]??Dept. of Pathology, [place], [place] SYNOPTIC Specimen ?Procedure: ??Nephroureterectomy ?Specimen Laterality: [...] carcinoma with superimposed abundant degenerative changes Labs: 01/25/2022 BUN 47, creatinine 1.6, sodium 133, potassium 6.1, AST 17, ALT 24, magnesium 2.4, WBC 10.2,hemoglobin 12.7, platelet count 295, ANC 7.7. 01/11/2022 WBC 8.69, hemoglobin 12, platelet count 248, ANC 6.09, sodium 136, potassium 5.1, BUN 33, creatinine 1.5, glucose 174, calcium 8.6, magnesium 2.4, TB 0.4, AST 26, ALT 39, alkaline [id number], albumin 3.3, TSH 2.62, free T4 1.4. [...] room for evaluation and treatment of hyperkalemia. # CHF: Follows with Dr. Ebony Beckham, [...] as prescribed. PLAN: 1. Hold enfortumab vedotin 2. Refer to emergency room for evaluation of hyperkalemia 3. PET scan 4. Follow up visit in 2-3 weeks with CBC,CMP and PET scan Nancy voiced understanding of the plan and [...] Oncology 10/21/2022 Hospital Encounter Radiology Adilene Link [address] [place] [address] (Wo rk) 10/21/2022 Appointment Radiology Adilene Link [address] [place] [address] (Wo rk) 10/21/2022 Appointment Radiology Adilene Link [address] [place] [address] (Wo rk) 10/25/2022 Office Visit Hematology and Oncology Alberto Guy MD [facility] DR HEMATOLOGY/[place] [address] MEDICAL ONCOLOGY [place], [place] [address] [phone] 11/09/2022 Office Visit Urology Bobo Davis MD [facility] UROLOGY [place], [place] [address] (Wo rk) documented as of this encounter Results NM PET CT Skull Base to Mid-thigh (03/11/2022 2:39 PM EDT) Anatomical Region Laterality Modality Positron Emission To mography (PET) Specimen (Source) Anatomical Location Collection Method / Collectio n Time Received Time / Laterality Volume Impressions 03/11/2022 3:11 PM EDT Skeletal metastases are present in L4, L5 and S1. Sclerotic lesions have increased in size and FDG avidity. No evidence of recurrent tumor in the re nal fossa. No hypermetabolic lymphadenopathy. Increase in the size of a pericardial ef fusion. Thank you for letting us participate in the care of this patient. ??If you are a health care provider and have any questi ons regarding this report, please contact the number below. ??For patients who have questions please contact the health lawn care worker that requested your imaging first. ? Narrative 03/11/2022 3:11 PM EDT EXAMINATION: NM PET CT STANDARD SKULL BASE TO MID-THIGH CLINICAL HISTORY: Urologic cancer, asses s treatment response - Include more detail below Restaging of metastatic urothelial carci noma TECHNIQUE: Following IV injection of 18- owoyzy-6-omkwwwmheima (FDG) a standard uptake of approximately 60 minutes, a no ncontrast CT scan followed by a PET scan were acquired from the base of the skull to mid thighs. The noncontrast CT was used for anatomic localization and photo n attenuation correction of the PET scan. Blood glucose level: 66 (mg/dL) FDG dose: 11.9 mCi COMPARISON: October 15, 2021 FINDINGS: HEAD/NECK: Increased activity is present throughout the salivary glands, likely due to inflammation. There is no change in the focus of decreased attenuation in the right lobe of the thyroid. CHEST: Normal activity in all soft tissue regio ns. Again seen are coronary artery calcifica tion and a pericardial effusion. The effusion has slightly increased since e prior examination. ABDOMEN/PELVIS: Note is again made of a prior right neph rectomy. There is no abnormal soft tissue activity within the renal fossa. No hypermetabolic lymphadenopathy is seen. There is fairly intensely increased acti vity in the roa of the stomach. This may be a physiologic variant or a manife station of gastritis. Again seen are foci of increased activity in the subcut aneous tissues of the anterior abdominal wall, most consistent with medication ad ministration. SKELETON/EXTREMITIES: There are hypermetabolic sclerotic foci in the center of S1, the left side of the L5 vertebral body, the left pedicle of L4, and the spinous process of L4. These sclerotic areas have increased in size and FDG avidity since the prior study. The L4 lesions are newly FDG avid . Procedure Note Geraldo Levine MD - 03/11/2022 EXAMINATION: NM PET CT STANDARD SKULL BA SE TO MID-THIGH CLINICAL HISTORY: Urologic cancer, asses s treatment response - Include more detail below Restaging of metastatic urothelial carci noma TECHNIQUE: Following IV injection of 18- yzuwby-0-zdujmsiycyoz (FDG) a standard uptake of approximately 60 minutes, a no ncontrast CT scan followed by a PET scan were acquired from the base of the skull to mid thighs. The noncontrast CT was used for anatomic localization and photo n attenuation correction of the PET scan. Blood glucose level: 66 (mg/dL) FDG dose: 11.9 mCi COMPARISON: October 15, 2021 FINDINGS: HEAD/NECK: Increased activity is present throughout the salivary glands, likely due to inflammation. There is no change in the focus of decreased attenuation in the right lobe of the thyroid. CHEST: Normal activity in all soft tissue regio ns. Again seen are coronary artery calcifica tion and a pericardial effusion. The effusion has slightly increased since e prior examination. ABDOMEN/PELVIS: Note is again made of a prior right neph rectomy. There is no abnormal soft tissue activity within the renal fossa. No hypermetabolic lymphadenopathy is seen. There is fairly intensely increased acti vity in the roa of the stomach. This may be a physiologic variant or a manife station of gastritis. Again seen are foci of increased activity in the subcut aneous tissues of the anterior abdominal wall, most consistent with medication ad ministration. SKELETON/EXTREMITIES: There are hypermetabolic sclerotic foci in the center of S1, the left side of the L5 vertebral body, the left pedicle of L4, and the spinous process of L4. These sclerotic areas have increased in size and FDG avidity since the prior study. The L4 lesions are newly FDG avid . IMPRESSION Skeletal metastases are present in L4, L 5 and S1. Sclerotic lesions have increased in size and FDG avidity. No evidence of recurrent tumor in the re nal fossa. No hypermetabolic lymphadenopathy. Increase in the size of a pericardial ef fusion. Thank you for letting us participate in the care of this patient. If you are a health care provider and have any questi ons regarding this report, please contact the number below. For patients w ho have questions please contact the health lawn care worker that requested your imaging first. Alberto Bhatia MD IMG PET ORDERABLES documented in this encounter Visit Diagnoses Diagnosis Metastatic urothelial carcinoma - Primar y 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 Drug-induced skin rash Toxic erythema Bone metastases Secondary malignant neoplasm of bone and bone marrow Encounter for antineoplastic chemotherap y and immunotherapy High risk medication use Encounter for long-term (current) use of other medications Hyperkalemia Hyperpotassemia documented in this encounter Care Teams Distribution A Class Lineman Relationship Specialty Start Date End Date Derek Torres PA PCP - General Internal Medicine 06/07/21 Mahnaz [address] [place] [address] documented as of this encounter
--- OUTSIDE RECORDS SUMMARY | 2022-10-07 18:38 | XMS_ITS | Encounter Summary ---
:1955 Author Organization [facility] [place] [address] Care Team Providers Name Role Phone Derek Torres Primary Care Provider Encounter Details Date Type Department Care Team Description 10/28/2021 Ancillary Procedure Radiology Library at Linsey Torres [facility] [place] [address] [address] [place], [place] [phone] (Wo rk) Social History Tobacco Use Types [...] 10/21/2022 Hospital Encounter Radiology Adilene Link APRN [address] [place] [address] DR MEDICAL ONCOLOGY [place], [place] [phone] (Wo rk) 10/21/2022 Appointment Radiology Adilene Link [address] MEDICAL ONCOLOGY [place], [place] [phone] (Wo rk) 10/21/2022 Appointment Radiology Adilene Link [address] MEDICAL ONCOLOGY [place], [place] [phone] (Wo rk) 10/25/2022 Office Visit Hematology and Oncology Alberto Guy MD [facility] DR HEMATOLOGY/[place] [address] Adilene Link, [address] MEDICAL ONCOLOGY [place], [place] [phone] 11/09/2022 Office Visit Urology Bobo Davis MD [facility] UROLOGY [place], [place] [address] (Wo rk) documented as of this encounter Procedures Procedure Name Priority Date/Time Associated Diagnosis Comme nts FILM LIBRARY Routine 10/28/2021 2:41 PM Results f or this STORAGE ONLY MR EST procedure ar e in SPINE the results section. documented in this encounter Results Film Library- Storage Only MR Spine (10/28/2021 2:41 PM EST) Specimen (Source) Anatomical Location Collection Method / Collectio n Time Received Time / Laterality Volume Narrative RAD - 10/28/2021 2:41 PM EST This exam is auto-finalizing. It's purpo se is for storage only. Derek ESTRELLA Shantel FILM LIBRARY ORDERABLES Performing Organization Address City/State/ZIP Code Phon e Number [place], [place] documented in this encounter Visit Diagnoses Not on filedocumented in this encounter Care Teams Home Health Rn Relationship Specialty Start Date End Date Derek Torres PA PCP - General Internal Medicine 06/07/21 Mahnaz [address]LS[address] [place], [place] [address] documented as of this encounter
--- OUTSIDE RECORDS SUMMARY | 2022-10-07 18:38 | XMS_ITS | Encounter Summary ---
:1955 Author Organization [facility] [place] [address] Care Team Providers Name Role Phone Derek Torres Primary Care Provider Reason for Visit Reason Onset Date Comments Follow-up 02/15/2022 Encounter Details Date Type Department Care Team Description 02/15/2022 Telephone Hematology/Oncology at Barb Dennis RN Follow-up [address] [phone] Social History Tobacco Use Types Packs/Day Years Used Date Former Smoker Cigarettes 0.25 0 Quit: 06/2020 Smokeless Tobacco: Never Used Alcohol Use Standard Drinks/Week Comments Not Currently 0 (1 standard drink = 0.6 oz pure alcoho l) Sex Assigned at Date Recorded Not on file documented as of this encounter Miscellaneous Notes Telephone Encounter - Barb Dennis RN - 02/15/2022 1:41 PM EDT Nancy called back she is resting and does not want to have treatment till the pet scan is done. Dr. Bhatia in agreement. She had some labs and scans with PCP , Dr. Bhatia did review them. Nancy will return March 01 with pet scan and labs. Pt agrees with plan. documented in this encounter Plan of Treatment Upcoming Encounters Date Type Specialty Care Team Description 10/21/2022 Appointment Hematology and Oncology 10/21/2022 Hospital Encounter Radiology Adilene Link, [employer] [address] [place] [address] DR [place] [address] [phone] (Wo rk) 10/21/2022 Appointment Radiology Adilene Link [address] [place] [address] (Wo rk) 10/21/2022 Appointment Radiology Adilene Link[address] MEDICAL ONCOLOGY [place], [place] [address] [phone] (Wo rk) 10/25/2022 Office Visit Hematology and Oncology Alberto Guy MD [facility] DR HEMATOLOGY/[place] [address] [address] MEDICAL ONCOLOGY [place], [place] [address] 11/09/2022 Office Visit Urology Bobo Davis MD [facility] DR UROLOGY [place], [place] [address] (Wo rk) documented as of this encounter Visit Diagnoses Not on filedocumented in this encounter Care Teams Complex Care Nurse Practitioner Relationship Specialty Start Date End Date Derek Torres PA PCP - General Internal Medicine 06/07/21 Mahnaz [address]LSON [address] [place], [place] [address] documented as of this encounter
--- OUTSIDE RECORDS SUMMARY | 2022-10-07 18:38 | XMS_ITS | Encounter Summary ---
:1955 Author Organization [facility] [place] [address] Care Team Providers Name Role Phone Derek Torres Primary Care Provider Reason for Visit Reason Onset Date Comments Spasms 11/18/2021 Encounter Details Date Type Department Care Team Description 11/18/2021 Telephone Hematology Oncology at [place] RN [address] [phone] Social History Tobacco Use Types Packs/Day Years Used Date Former Smoker Cigarettes 0.25 0 Quit: 06/2020 Smokeless Tobacco: Never Used Alcohol Use Standard Drinks/Week Comments Not Currently 0 (1 standard drink = 0.6 oz pure alcoho l) Sex Assigned at Date Recorded Not on file documented as of this encounter Miscellaneous Notes Telephone Encounter - Ledy [place] RN - 11/18/2021 2:40 PM EST I called Nancy and spoke to her confirming the below msg. She is hydrating well with about 6 bottlesof water a day. Walking and heat are helping spasms. She is wondering it ativan will help with spasms and anxiety while spasms are happening. Dr. Bhatia agreed and sent in a prescription for her. She is looking forward to seeing Palliative care on Monday. Nancy was satisfied with the call. ----- Message from Kathia Wynn sent at 11/18/2021 1:25 PM EST ----- Regarding: Pain during Muscle Spasm-Freezing Nancy called because she hasn't been able to sort something out with her PCP regarding what to do with her muscle spasms in the back of her leg. She has been getting them behind her knees. She had one this morning that was so severe she couldn't walk. She said the pain medications that she currently takes helps with the bone pain but not the pain for her muscles and is wondering if there is anything she can do to minimize the intensity of the spasms. She did mention applying heat helps. She is looking for answers on how to better manage her pain in the meantime, she is concerned that this will continue to happen over the weekend when all the offices are closed. She also said she thinks she would benefit from an anxiety medication to help her stay calm during the spasms. I transferred her over to Palliative to get her into a cancellation spot for Thursday 11/22 (consult was originally scheduled for 12/10). Can you please review and give her a call back to check in? The best number to call is [phone]. Let me know if you have questions, thanks! Kathia documented in this encounter Plan of Treatment Upcoming Encounters Date Type Specialty Care Team Description 10/21/2022 Appointment Hematology and Oncology 10/21/2022 Hospital Encounter Radiology Adilene Link[address] ONCOLOGY [place], [place] [phone] (Kwadwo morataya) 10/21/2022 Appointment Radiology Adilene Link[address] ONCOLOGY [place], [place] [phone] (Kwadwo morataya) 10/21/2022 Appointment Radiology Adilene Link[address] ONCOLOGY [place], [place] [phone] (Kwadwo morataya) 10/25/2022 Office Visit Hematology and Oncology Alberto Guy MD [facility] DR HEMATOLOGY/[place] [address] MEDICAL ONCOLOGY [place], [place] [address] 11/09/2022 Office Visit Urology Bobo Davis MD [facility] UROLOGY [place], [place] [address] (Wo rk) documented as of this encounter Visit Diagnoses Not on filedocumented in this encounter Care Teams Assessment Technician Relationship Specialty Start Date End Date Derek Torres PA PCP - General Internal Medicine 06/07/21 Mahnaz [address]LSON [address] [place] [address] documented as of this encounter
--- OUTSIDE RECORDS SUMMARY | 2022-10-07 18:38 | XMS_ITS | Encounter Summary ---
:1955 Author Organization [facility] [place] [address] Care Team Providers Name Role Phone Derek Torres Primary Care Provider Reason for Referral Diagnostic Test (Routine) - Closed Specialty Diagnoses / Procedures Referred By Contact Refer red To Contact Radiology Diagnoses Metastatic urothelial carcinoma Bone lesion Alberto Bhatia MD [facility] Rad Ct Scan Procedures CT Guided Biopsy Bone (Spine/Skull) [facility] HEMATOLOGY/[place] [address] [place] [address] Referral ID Status Reason Start Date Expiration Date Visits V isits Requested Authorized [id number] Closed Specialty 10/19/2021 04/18/2023 1 1 Service Requested Reason for Visit Diagnostic Test (Routine) - Closed Specialty Diagnoses / Procedures Referred By Contact Refer red To Contact Radiology Diagnoses Metastatic urothelial carcinoma Bone lesion Alberto Bhatia MD [facility] Rad Ct Scan Procedures CT Guided Biopsy Bone (Spine/Skull) [facility] HEMATOLOGY/[place] [address] [place] [address] Referral ID Status Reason Start Date Expiration Date Visits V isits Requested Authorized [id number] Closed Specialty 10/19/2021 04/18/2023 1 1 Service Requested Encounter Details Date Type Department Care Team Description 11/09/[address] Scan at [facility] Devitskiy, Bone metastases; [facility] MD Alberto Pre-op testing; [facility] Metastatic urothelial carcin flaquita; [place], [place] [address] Bone lesion [id number] HEMATOLOGY/ONCOL [phone] [place] [address] Social History Tobacco Use Types Packs/Day Years Used Date Former Smoker Cigarettes 0.25 0 Quit: 06/2020 Smokeless Tobacco: Never Used Alcohol Use Standard Drinks/Week Comments Not Currently 0 (1 standard drink = 0.6 oz pure alcoho l) Sex Assigned at Date Recorded Not on file documented as of this encounter Last Filed Vital Signs Vital Sign Reading Time Taken Comments Blood Pressure 137/37 11/09/2021 2:45 PM EST Pulse 77 11/09/2021 2:00 PM EST Temperature 36.3 ??C (97.4 ??F) 11/09/2021 2:12 PM EST Respiratory Rate 16 11/09/2021 2:45 PM EST Oxygen Saturation 95% 11/09/2021 2:45 PM EST Inhaled Oxygen Concentration - - Weight - - Height - - Body Mass Index - - documented in this encounter Discharge Instructions Discharge InstructionsLexy Ellis RN - 11/09/2021 1:32 PM EST [facility] Vascular and Interventional Radiology Biopsy Discharge Instructions ??? Bone biopsy: call your doctor immediately if you develop a sudden onset of weakness, increased pain or swelling at the biopsy site or heavy bleeding at the biopsy site. Activity And Diet: ??? Go home and rest quietly for the remainder of the day. You may resume your normal activities tomorrow. ??? Resume your usual diet after the procedure. ??? Do not drive, sign any important/legal documents, or make any important decisions for 24 hours following sedation medications. When to call your healthcare provider: ??? If you see any redness, swelling or drainage at the biopsy site. ??? If you develop chills. ??? If you have a fever greater than or equal to 101 degrees Fahrenheit. ??? If you develop pain around the biopsy site. Bandage: ??? Check the dressing/bandaid throughout the day for an increase in drainage. Keep the biopsy site dry for 24 hours. Replace the bandaid as needed. You may shower 24 hours after the biopsy. Medication: ??? DO NOT take aspirin-containing products, ibuprofen, or blood-thinning medication for the next 24hours unless your clinician says you may do so. ??? Generally you may use acetaminophen as needed for discomfort unless you have liver disease and are instructed not to take acetaminophen. Biopsy Results ??? The results of your biopsy should be available within 5 business days and will be reported to you by your primary reservoir caretaker or the clinician who ordered the biopsy. Please do not call us for results as we will not have them. ??? If you have not been contacted by your clinician within 5 business days you should call that office for further information. When to call the Interventional Radiology Department: Please call with any questions or concerns. Ifit is during regular office hours, please call [phone]. If it is after regular office hours, oron weekends or holidays, please call [phone] and ask to speak to the [employer] on callfor Interventional Radiology. You have received medication during your procedure to help lessen anxiety and keep you comfortable.These medications affect judgement and reaction time. We recommend that you do not drive, operate equipment, sign any important documents, or smoke unattended [...] Sig Dispensed Refills Start Date End Date losartan (COZAAR) 100 Take 25 mg by [...] U-100) 100 unit/mL (3 mL) Insulin Pen cephALEXin (Keflex) Take 250 mg by mouth 4 0 11/16/2021 250 mg Capsule times daily. enoxaparin (Lovenox) Inject 1 mL 20 mL 0 10/29/2021 100 mg/mL subcutaneously daily. SyringeIndications: Metastatic urothelial carcinoma, Chronic deep vein thrombosis of right popliteal vein senna (Senokot) 8.6 mg Take 2 tablets by 120 tablet 11 202011/23/2021 TabletIndications: mouth 2 times daily. Metastatic urothelial carcinoma HYDROcodone-acetaminop TAKE ONE TABLET BY 0 06/2803/15/2022 hen (Brinson) 5-325 mg MOUTH THREE TIMES A Tablet [...] documented as of this encounter Progress Notes Manuel Dutton, RN - 11/09/2021 11:59 PM EST Interventional and Vascular Radiology Post-Procedure Call Name: Nancy Rivas Age: 66 y.o. Sex: Female Date of : 1955 (home) No relevant phone numbers on file. PCP DELORES Zaman [phone] Date/Time of call: November 10, 2021/10:51 AM Procedure: CT guided bone biopsy Procedural Provider: Contact with patient or if not, with whom? Roseline Message left on answering machine? [X] No Are you having pain related to your procedure now? [X] No Lung bx: Any shortness of breath, coughing up blood or chest pain? N/a Liver bx: Any pain a biopsy site: no Are you having any swelling or bleeding from the site? No Are there any improvement in your symptoms? Yes Are you having any other problems related to your procedure? no Did you understand the discharge instructions given and do you have any questions? Yes, no Do you have any comments about your Nurse or Provider or the care you received? [X] No Comments (if applicable): Lexy Barron RN - 11/09/2021 1:10 PM EST ANGIO NURSING DATABASE Name: NANCY RIVAS Date of : 1955 AGE: 66 y.o. Address: [address] [address] (home) Mobile: No relevant phone numbers on file. Referring Provider: Alberto Bhatia REASON FOR VISIT: Order Questions Answers Where will study be performed? [facility] Radiology [120] Laterality Left Does this patient have any known bleeding risk factors or conditions that places them at higher riskfor a procedural hemorrhage? None Reason for exam and clinical history: L5 lesion suspicious for metastatic disease. Patient with upper tract urothelial carcinoma. Please evaluate Allergies Allergen Reactions ??? Gabapentin ??? Atorvastatin [...] Dressings] Dermatitis Tegaderm/stat-lock of IV dressing Pertinent PSH: Past Surgical History: Procedure Laterality [...] as a child Procedure Date: Unknown ??? PRO NEPHRECTOMY, W/PART. URETECTOMY Right 06/16/2021 @LAPAROSCOPY TOTAL NEPHROURETERECTOMY, ROBOTICS ASSIST (WRVU 25.36) [facility] Date/Procedure Meds given/comments 11/09/21 CT guided Bone biopsy Fentanyl 200 mcg IV, Versed 4 mg IV, difficulty positioning, able to tolerate with encouragement and sedation 1310 to procedure room CT1 via stretcher. Onto table prone. All monitors, O2, safety strap in place.Meds per protocol. Laboratory Results: Lab Results Component Value Date CREATININE 1.65 (H) 06/24/2021 Lab Results Component Value Date K 4.8 06/24/2021 Lab Results Component Value Date PLATELET 238 06/22/2021 Brandie Solis APRN - 11/09/2021 12:30 PM EST INTERVENTIONAL RADIOLOGY FOCUSED H&P: Procedure: CT guided L5 vertebral bone biopsy The patient's history and physical exam have been reviewed and completed. There has been no intervalchange from that of the pre-operative history and physical exam done within the last 30 days. Physical Exam: Cardiovascular: Regular, Normal Pulmonary: Breath sounds clear to auscultation Abdomen: Soft, non-tender, + bowel sounds x 4, denies N/V The planned procedure (and sedation plan if appropriate) , its benefits and risks, and alternatives were discussed with the patient. The patient consented to the procedure. PRE-SEDATION ASSESSMENT: Sedation Plan: moderate (conscious sedation) ASA: 2: Patient with mild systemic disease Mallampati: II: tonsillar pillars are blocked by the tongue Confirm NPO status: Yes History of anesthetic complications: No Current medications reviewed: Yes Allergies reviewed: Yes documented in this encounter Plan of Treatment Upcoming Encounters Date Type Specialty Care Team Description 10/21/2022 Appointment Hematology and Oncology 10/21/2022 Hospital Encounter Radiology Adilene Link[address] ONCOLOGY [place], [place] [id number] [phone] (Wo rk) 10/21/2022 Appointment Radiology Adilene Link[address] [place]OGY [place], [place] [address] [phone] (Wo rk) 10/21/2022 Appointment Radiology Adilene Link[address] ONCOLOGY [place], [place] [address] [phone] (Wo rk) 10/25/2022 Office Visit Hematology and Oncology Alberto Guy MD [facility] DR HEMATOLOGY/[place] [address] [address] MEDICAL ONCOLOGY [place], [place] [address] [phone] 11/09/2022 Office Visit Urology Bobo Davis MD [facility] UROLOGY [place], [place] [address] (Wo rk) documented as of this encounter Procedures Procedure Name Priority Date/Time Associated Diagnosis Comme nts POCT GLUCOSE Routine 11/09/2021 2:18 PM Results f or this EST procedure are i n the results section. CT GUIDED BIOPSY Routine 11/09/2021 2:11 PM Metastatic Resul ts for this BONE(SPINE/SKULL) EST urothelial car cinoma procedure are in Bone lesion the results section. SURGICAL PATHOLOGY Routine 11/09/2021 1:29 PM Res ults for this REPORT EST procedure are i n the results section. SPECIMEN TO Routine 11/09/2021 1:29 PM Results f or this PATHOLOGY EST procedure are i n the results section. POCT GLUCOSE Routine 11/09/2021 1:04 PM Results f or this EST procedure are i n the results section. documented in this encounter Results POCT Glucose (11/09/2021 2:18 PM EST) P athologist Signature POC Glucose 89 65 - 199 [facility] mg/dL [facility] Comment: Supplemental ranges: <140 mg/dL before meals <180 mg/dL all other times of the day Specimen Anatomical Collection Method Collection Time Receive d Time (Source) Location / / Volume Laterality Blood 11/09/2021 2:18 PM 2:18 EST PM EST Alberto Bhatia MD POINT OF CARE TEST ORDERABLE S Performing Organization Address City/State/ZIP Code Phon e Number [place] [phone] CT Guided Biopsy Bone (Spine/Skull) (11/09/2021 2:11 PM EST) Anatomical Region Laterality Modality Computed Tomography Specimen (Source) Anatomical Location Collection Method / Collectio n Time Received Time / Laterality Volume Impressions 11/09/2021 2:15 PM EST Technically successful CT-guided core needle biopsy of the L5 sclerotic lesion.. Resident/Fellow: None Attending: Edison Dukes M.D. Thank you for letting us participate in the care of this patient. ??If you are a health care provider and have any questi ons regarding this report, please contact the number below. ??For patients who have questions please contact the health care assistant that requested your imaging first. ? Electronically signed by: Edison Dukes MD, [facility] ([phone]), at 11/09/2021 2:15 PM Narrative 11/09/2021 2:15 PM EST PROCEDURE: CT GUIDED bone biopsy OPERATORS: Edison Dukes M.D. I, Martha Dukes, was present for the entire procedure. INFORMED CONSENT: Informed consent was o btained and all of the patient's questions were answered prior to the sta rt of the procedure. MODERATE SEDATION: Was provided by the Special Procedures n urse with split doses of midazolam and Fentanyl intravenously. Continuous vital sign monitoring was performed. I was present during the intraservice time as documented by the IR Nurse. DESCRIPTION: After informed consent was obtained, a p re- procedural time-out was performed as per [facility] protocol. The patient was place d in the CT Suite in the prone position. The L5 lesion was localized on axial CT images. The needle entry site was marked under CT guidance. The skin was prepped and draped in the usual sterile fashion. 1% buffered Lidocaine was used for local anesthesia. Maximum sterile barrier technique was utilized. The 13th G Liat Jamshidi bone biopsy set was employed. The penetration needle was advanced under imaging guidance. The bone biopsy needle was subsequently advanced coaxially. The tip of the biops y needle was recorded and 1 specimens were obtained. All needles were removed and hemostasis obtained by manual compression. The samples were prepared f or surgical pathology. COMPLICATIONS: There were no immediate postprocedure co mplications. The patient left the fluoroscopic suite to the ambulatory Rec overy Room in stable condition. Procedure Note Edison Dukes MD - 11/09/2021Format ting of this note might be different from the original. PROCEDURE: CT GUIDED bone biopsy OPERATORS: Edison Dukes M.D. I, Martha Dukes, was present for the entire procedure. INFORMED CONSENT: Informed consent was o btained and all of the patient's questions were answered prior to the sta rt of the procedure. MODERATE SEDATION: Was provided by the Special Procedures n urse with split doses of midazolam and Fentanyl intravenously. Continuous vital sign monitoring was performed. I was present during the intraservice time as documented by the IR Nurse. DESCRIPTION: After informed consent was obtained, a p re- procedural time-out was performed as per [facility] protocol. The patient was place d in the CT Suite in the prone position. The L5 lesion was localized on axial CT images. The needle entry site was marked under CT guidance. The skin was prepped and draped in the usual sterile fashion. 1% buffered Lidocaine was used for local anesthesia. Maximum sterile barrier technique was utilized. The 13th G Coolin Jamshidi bone biopsy set was employed. The penetration needle was advanced under imaging guidance. The bone biopsy needle was subsequently advanced coaxially. The tip of the biops y needle was recorded and 1 specimens were obtained. All needles were removed and hemostasis obtained by manual compression. The samples were prepared f or surgical pathology. COMPLICATIONS: There were no immediate postprocedure co mplications. The patient left the fluoroscopic suite to the ambulatory Rec overy Room in stable condition. IMPRESSION Technically successful CT-guided core ne edle biopsy of the L5 sclerotic lesion.. Resident/Fellow: None Attending: Edison Dukes M.D. Thank you for letting us participate in the care of this patient. If you are a health care provider and have any questi ons regarding this report, please contact the number below. For patients w ho have questions please contact the health care assistant that requested your imaging first. Electronically signed by: Edison Dukes MD, [facility] ([phone]), at 11/09/2021 2:15 PM Alberto Bhatia MD IMG CT ORDERABLES Surgical Pathology Report (11/09/2021 1:29 PM EST) Component Value Ref Test Analysis Performed At [facility] Range Method Time Signature Surgical [id number] ? Location: [address] [place] [address] Report The signing pathologist has (i) examined the relevant preparation(s) for the [facility] specimen(s) and (ii) rendered or confirmed the diagnosis(es) . HOSPITAL [facility] . ?Surgic al Pathology DIAGNOSIS Bone, L5, biopsy: Spicules of bone and bone marrow with rare cytok eratin positive single cells, suspicious for metastatic disease, see discussion Electronically signed by: ?Gelacio Lemus MD Verified: ??11/11/2021 16:06 ??Dermatopathologist, Bone & Soft Tissue Pathologist Performed at: ??-[facility] Dept. of Pathology, [place], [place] DISCUSSION Sections show spicules of clay ne and bone marrow. ??[id number] by immunohistochemistry (performed twice) highlight s a few single cells which I consider to be suspicious for metastatic disease in t his clinical setting. ??However further subtyping is not possible based on this sample. ??Clinical correlation to assess the need for resampling is necessary. SPECIMEN(S) SUBMITTED A - L5, biopsy (Multiple) CLINICAL INFORMATION 66-year-old female with hist ory of urologic cancer and new hypermetabolic sclerotic bone lesions concerning for metastasis SPECIMEN PROCESSING A - Labeled/Fixative: Patient demographics, formalin. Quantity/Size: ??Single, 0.3 x 0.1 x 0.1 cm. Tissue Description: Red-angel bone fragment. Sections/Processing: Blocks submitted for decalcification in EDTA: A1. Submitted en toto ??in 1 cassette labeled A1. ??bryanna Specimen (Source) Anatomical Collection Method Collection Time Re ceived Time Location / / Volume Laterality 11/09/2021 1:29 PM EST Alberto Bhatia MD PATHOLOGY/CYTOLOGY ORDERABLE S Performing Organization Address City/State/[place] [address] Specimen to Pathology (11/09/2021 1:29 PM EST) Specimen Anatomical Collection Method Collection Time Receive d Time (Source) Location / / Volume Laterality AP Specimen 11/09/2021 1:29 PM 1:29 EST PM EST Narrative [facility] - 11/09/2021 1:29 PM EST Specimen requisition ordered. ??Separate Pathology report to follow Alberto Bhatia MD PATHOLOGY/CYTOLOGY ORDERABLE S Performing Organization Address City/[facility] Code Phon e Number [place] [phone] [facility] LAB[address]ORY [address] POCT Glucose (11/09/2021 1:04 PM EST) athologist Signature POC Glucose 85 65 - [address] [facility] mg/dL [facility] Comment: Supplemental ranges: <140 mg/dL before meals <180 mg/dL all other times of the day Specimen Anatomical Collection Method Collection Time Receive d Time (Source) Location / / Volume Laterality Blood 11/09/2021 1:04 PM 1:04 EST PM EST Alberto Bhatia MD POINT OF CARE TEST ORDERABLE S Performing Organization Address City/State/ZIP Code Phon e Number [address] Prothrombin Time (11/09/2021 11:11 AM EST) athologist Signature PT 10.5 9.4 - 12.5 [facility] LABORATORY INR 0.9 [facility] Comment: An INR <2.0 indicates adequate procoagul ant activity for hemostasis in most patients without underlying bleeding dis orders, though the INR may not adequately reflect hemostatic capacity i n patients with liver disease and synthetic impairment. The recommended ta rget INR range for therapeutic anticoagulation is 2.0 ? 3.0 for most applications, though lower and higher ranges may be appropriate depending on c linical circumstances. Specimen Anatomical Collection Method Collection Time Receive d Time (Source) Location / / Volume Laterality Blood 11/09/2021 11:11 11/09/2021 AM EST 11:41 AM EST Resulting Agency Comment Spec In Lab Alberto Bhatia MD HEMATOLOGY ORDERABLES Performing Organization Address City/State/ZIP Code Phon e Number [address] Platelet count (11/09/2021 11:11 AM EST) athologist Signature Platelets 268 145 - 357 [facility] x10(3)/[facility] LABORATORY Plat Immature 2.4 0.0 - [facility] % [facility] Comment: Limitation of the Immature Platelet Frac tion (IPF)-May be less reliable when the platelet count is less than 98h251/u L due to statistical imprecision. The IPF value provides an assessment of the Bone Marrow production status. ??It is useful in differentiating Thrombocyto penia caused by platelet destruction/consumption versus decreased production. It also helps to determine the imminent release of platelets and ca n be therefore a helpful parameter in Chemotherapy and Bone marrow transplant patients. ELEVATED IPF value: ?? When the bone marrow is in a state of over production such as when increased destruction and consumption are the unde rlying issue. ?? When the marrow is recovering post ch emotherapy or bone marrow transplant. LOW to NORMAL IPF value: ?? When the bone marrow in not respondin g and is in a decreased state of production. References: [employer] The Clinical Value of the Immature Platelet Fraction (IPF) in Cell Recovery Document Number [id number] 04/2011 [employer] The Role of the Imm ature Platelet Fraction (IPF) in the Differential Diagnosis of Thrombocytopen ia, Document [id number] V0/11/09 Specimen Anatomical Collection Method Collection Time Receive d Time (Source) Location / / Volume Laterality Blood 11/09/2021 11:11 11/09/2021 AM EST 11:41 AM EST Resulting Agency Comment Spec In Lab Alberto Bhatia MD HEMATOLOGY ORDERABLES Performing Organization Address City/State/ZIP Code Phon e Number [place] [phone] documented in this encounter Visit Diagnoses Diagnosis Bone metastases Secondary malignant neoplasm of bone and bone marrow Pre-op testing Preoperative examination, unspecified Metastatic urothelial carcinoma 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 Bone lesion Disorder of bone and cartilage, unspecif ied documented in this encounter Administered Medications Inactive Administered Medications - up to 3 most recent administrations Medication Order MAR Action Action Date Dose Rate Site fentaNYL (pf) (50 mcg/mL) Given 11/09/2021 1:59 PM EST 25 mcg multi-dose injection 25-50 mcg 25-50 mcg, Intravenous, EVERY 3 MIN PRN, Starting on Tu11/09/21 at 1250, Until Tu11/09/21 at 1458, Pain, per unit protocol, - Start dose [...] direct provider supervision and verbal order., Angio/IR (Intra-Procedure), Routine Given 11/09/2021 1:46 PM EST 25 mcg Given 11/09/2021 1:42 PM EST 25 mcg lidocaine (Xylocaine) 1% (10 mg/mL) injection Given 1:40 PM EST 10 mg 10 mg 10 mg, Subcutaneous, ONCE, 1 dose, On Mon11/09/21 at 1315, For use in Interventional Radiology (IR) only for procedure with direct provider supervision and verbal order., Angio/IR (Intra-Procedure), Routine midazolam (pf) (Versed) (1 mg/mL) multi-dose Given 2:00 PM EST 0.5 mg injection 0.5-1 mg 0.5-1 mg, Intravenous, EVERY 3 MIN PRN, Starting on Mon11/09/21 at 1250, Until Mon11/09/21 at 1458, Sleep, - Start dose; 1 mg (Reduce [...] direct provider supervision and verbal order., Angio/IR (Intra-Procedure), Routine Given 11/09/2021 1:51 PM EST 0.5 mg Given 11/09/2021 1:42 PM EST 0.5 mg sodium chloride 0.9 % (flush) (BD PosiFlush Given 11/09/2021 1:1 5 PM EST 5 mLs Normal Saline 0.9) flush 5 mL 5 mL, Intravenous, 2 TIMES DAILY, First dose on Mon11/09/21 at 1315, Until Discontinued, Angio/IR (Day of Procedure), Routine documented in this encounter Care Teams Autistic Teacher Relationship Specialty Start Date End Date Derek Torres PA PCP - General Internal Medicine 06/07/21 [address] [place] [address] documented as of this encounter
--- OUTSIDE RECORDS SUMMARY | 2022-10-07 18:38 | XMS_ITS | Encounter Summary ---
:1955 Author Organization [facility] [place] [address] Care Team Providers Name Role Phone Derek Torres Primary Care Provider Encounter Details Date Type Department Care Team Description 12/10/2021 Telephone Hematology/Oncology at [facility] Garcia [address] [phone] Social History Tobacco Use Types Packs/Day Years Used Date Former Smoker Cigarettes 0.25 0 Quit: 06/2020 Smokeless Tobacco: Never Used Alcohol Use Standard Drinks/Week Comments Not Currently 0 (1 standard drink = 0.6 oz pure alcoho l) Sex Assigned at Date Recorded Not on file documented as of this encounter Miscellaneous Notes Telephone Encounter - Zechariah Bacon - 12/10/2021 10:14 AM EST Called pt and informed her of her apt on 12/[address] [facility] @ 8:30 apt with us at 9:30 with infusion to follow. Pt agreed. documented in this encounter Plan of Treatment Upcoming Encounters Date Type Specialty Care Team Description 10/21/2022 Appointment Hematology and Oncology 10/21/2022 Hospital Encounter Radiology Adilene Link, [address] MEDICAL ONCOLOGY [place], [place] [id number] (Wo rk) 10/21/2022 Appointment Radiology Adilene Link [address] [place] [address] (Wo rk) 10/21/2022 Appointment Radiology Adilene Link[address] MEDICAL ONCOLOGY [place], [place] [phone] (Wo rk) 10/25/2022 Office Visit Hematology and Oncology Alberto Guy MD [facility] DR HEMATOLOGY/[place] [address] [address] MEDICAL ONCOLOGY [place], [place] [id number] 11/09/2022 Office Visit Urology Bobo Davis MD [facility] UROLOGY [place], [place] [address] (Wo rk) documented as of this encounter Visit Diagnoses Not on filedocumented in this encounter Care Teams Maintenance Planner Relationship Specialty Start Date End Date Derek Torres PA PCP - General Internal Medicine 06/07/21 Mahnaz CARLSON [address] [place], [place] [phone] documented as of this encounter
--- OUTSIDE RECORDS SUMMARY | 2022-10-07 18:38 | XMS_ITS | Encounter Summary ---
:1955 Author Organization [facility] [place] [address] Care Team Providers Name Role Phone Derek Torres Primary Care Provider Encounter Details Date Type Department Care Team Description 01/13/2022 [facility] [address] [phone] Social History Tobacco Use [...] and Oncology 10/21/2022 Hospital Encounter Radiology Adilene Link[address] [place] [address] (Kwadwo morataya) 10/21/2022 Appointment Radiology Adilene Link[address] MEDICAL ONCOLOGY [place], [place] [phone] (Kwadwo morataya) 10/21/2022 Appointment Radiology Adilene Link[address] MEDICAL ONCOLOGY [place], [place] [phone] (Kwadwo morataya) 10/25/2022 Office Visit Hematology and Oncology Alberto Guy MD [facility] HEMATOLOGY/[place] [address] Adilene Link, [employer] MEDICAL ONCOLOGY [place], [place] [address] 11/09/2022 Office Visit Urology Bobo Davis MD [facility] UROLOGY [place], [place] [address] (Wo rk) documented as of this encounter Visit Diagnoses Not on filedocumented in this encounter Care Teams Operations Research Group Manager Relationship Specialty Start Date End Date Derek Torres PA PCP - General Internal Medicine 06/07/21 [address] [place], [place] [address] documented as of this encounter
--- OUTSIDE RECORDS SUMMARY | 2022-10-07 18:38 | XMS_ITS | Encounter Summary ---
:1955 Author Organization [facility] [place] [address] Care Team Providers Name Role Phone Derek Torres Primary Care Provider Reason for Visit Reason Comments Chemotherapy Cycle 1, Day 1 - Enfortumab Treatment/Therapy Plan Authorization (Routine) - Authorized Specialty Diagnoses / Procedures Referred By Contact Refer red To Contact Diagnoses Urothelial carcinoma of kidney, right Malignant neoplasm of urinary bladder, unspecified site Neutropenia, drug-induced Metastatic urothelial carcinoma High risk medication use Alberto Bhatia MD [facility] Hem Onc Office Procedures TC PALONOSETRON HCL, 25MCG, INJECTION (ALOXI) TC ZOLEDRONIC ACID, 1 MG, INJECTION J2469 palonosetron (Aloxi) 0.25 MG J9177 enfortumab vedotin-ejfv (PADCEV) 125 mg [id number] ZOMETA 3 MG [facility] [address] [place] [address] HEMATOLOGY/[place] [phone] Fax: Referral ID Status Reason Start Date Expiration Date Visits V isits Requested Authorized [id number] Authorized 05/31/2022 05/30/2023 20 20 Encounter Details Date Type Department Care Team Description 12/07/2021 Infusion Hematology Oncology at [facility] tastatic urothelial carcinoma; [facility] High risk medication use; [address] [place] [address] Urothelial carcinoma of kidn ey, right [place], [place] [phone] Social History Tobacco Use Types Packs/Day Years Used Date Former Smoker Cigarettes 0.25 0 Quit: 06/2020 Smokeless Tobacco: Never Used Alcohol Use Standard Drinks/Week Comments Not Currently 0 (1 standard drink = 0.6 oz pure alcoho l) Sex Assigned at Date Recorded Not on file documented as of this encounter Progress Notes Brittny Rondon RN - 12/07/2021 10:00 AM EST INFUSION THERAPY ADMINISTRATION NOTES DIAGNOSIS: Metastatic urothelial cancer CYCLE #: Cycle 1, Day 1 - Enfortumab REASON FOR VISIT: To receive chemotherapy. SUBJECTIVE: Nancy admits to fatigue and weakness. She states she is discouraged because her previous treatments stopped working. OBJECTIVE: Emotional support given. Visit with Lung Puller. LAB DATA: WBC - 8.22, H/H - 10.9/36.0, Plt Ct - 254, ANC - 5.87, Lytes wnl, BUN/Cr - 39/1.8, Calcium- 7.5 (corrected calcium 8.3) IV ACCESS: PIV Pre administration: Chemotherapy orders independently verified for drug name, route, and dosage per patient's height, weight and BSA by Brittny Rondon RN and Staff Pharmacist(s). REACTIONS (DESCRIPTION, TIME, INTERVENTION AND EFFECTIVENESS) none ASSESSMENT: Nancy was awake, alert and tolerated treatment well. PIV discontinued. We discussed the new regimen. She had been given literature. We discussed potential side effects inclusing constipation From the palonestron. She will increase her bowel regimen over the next several days.She will call if there are any questions or concerns. PLAN: Return to clinic per routine. documented in this encounter Plan of Treatment Upcoming Encounters Date Type Specialty Care Team Description 10/21/2022 Appointment Hematology and Oncology 10/21/2022 Hospital Encounter Radiology Adilene Link APRN [address] [place] [address] [place] [address] (Kwadwo morataya) 10/21/2022 Appointment Radiology Adilene Link APRN [address] [place] [address] [place] [address] (Kwadwo morataya) 10/21/2022 Appointment Radiology Adilene Link, [address] MEDICAL ONCOLOGY [place], [place] [phone] (Wo rk) 10/25/2022 Office Visit Hematology and Oncology Alberto Guy MD [facility] DR HEMATOLOGY/[place] [address] MEDICAL ONCOLOGY [place], [place] [address] 11/09/2022 Office Visit Urology Bobo Davis MD [facility] DR UROLOGY [place], [place] [address] (Wo rk) documented as of this encounter Visit Diagnoses Diagnosis Metastatic urothelial carcinoma 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 High risk medication use Encounter for long-term (current) use of other medications Urothelial carcinoma of kidney, right documented in this encounter Administered Medications Inactive Administered Medications - up to 3 most recent administrations Medication Order MAR Action Action Date Dose Rate Site dexamethasone (Decadron) tablet 10 Given 12/07/2021 10:28 AM EST 10 mg mg 10 mg, Oral, ONCE, 1 dose, On Mon12/07/21 at 1015, Administer prior to chemotherapy, Routine enfortumab vedotin-ejfv (PADCEV) New Bag 12/07/2021 10:[address] 120 mg 124 mL/hr 120 mg in sodium chloride 0.9% 62 mL chemo infusion 120 mg, Intravenous, ONCE, 1 dose, On Mon12/07/21 at 1115, Administer over 30 Minutes, Warning Vesicant/Irritant Medication Dose-Max Capped at 125mg Dose Ordered = 125 mg (1.25 mg/kg). Pharmacist rounded dose per procedure., This agent is restricted to outpatient use. Is this drug being given as an outpatient? Yes palonosetron (Aloxi) (0.05 mg/mL) injection Given 11/27 10:29 AM EST 0.25 mg 0.25 mg 0.25 mg, Intravenous, ONCE, 1 dose, On Mon12/07/21 at 1015, Administer over 30 seconds. Administer prior to chemotherapy, Routine sodium chloride 0.9% infusion New Bag 12/07/2021 10:20 AM EST 100 mL/hr 100 mL/hr 100 mL/hr, Intravenous, CONTINUOUS, Starting on Mon12/07/21 at 1015, Until Mon12/07/21 at 1449 documented in this encounter Care Teams Digital Advertising Analyst Relationship Specialty Start Date End Date Derek Torres PA PCP - General Internal Medicine 06/07/21 Mahnaz CARLSON [address] [place] [address] documented as of this encounter
--- OUTSIDE RECORDS SUMMARY | 2022-10-07 18:38 | XMS_ITS | Encounter Summary ---
:1955 Author Organization [facility] [place] [address] Care Team Providers Name Role Phone Derek Torres Primary Care Provider Encounter Details Date Type Department Care Team Description 11/18/2021 Orders Only Hematology and Oncology at Alberto Montaño MD [facility] Dennis efrnández HEMATOLOGY/[place] [address] [place] [address] [phone] (Wo rk) Social History Tobacco Use Types [...] and Oncology 10/21/2022 Hospital Encounter Radiology Adilene Link[address] [place] [address] (Wo rk) 10/21/2022 Appointment Radiology Adilene Link [address] MEDICAL ONCOLOGY [place], [place] [phone] (Wo rk) 10/21/2022 Appointment Radiology Adilene Link [address] [place] [address] (Wo rk) 10/25/2022 Office Visit Hematology and Oncology Alberto Guy MD [facility] DR HEMATOLOGY/[place] [address] [address] MEDICAL ONCOLOGY [place], [place] [address] 11/09/2022 Office Visit Urology Bobo Davis MD [facility] UROLOGY [place], [place] [address] (Wo rk) documented as of this encounter Visit Diagnoses Not on filedocumented in this encounter Care Teams Pediatric Physical Therapy Assistant Relationship Specialty Start Date End Date Derek Torres PA PCP - General Internal Medicine 06/07/21 Mahnaz CARLSON [address] [place], [place] [phone] documented as of this encounter
--- OUTSIDE RECORDS SUMMARY | 2022-10-07 18:38 | XMS_ITS | Encounter Summary ---
:1955 Author Organization [facility] [place] [address] Care Team Providers Name Role Phone Derek Torres Primary Care Provider Reason for Visit Reason Comments Chemotherapy Cycle 1, Day 15; Enfortumab IV Medication Zometa Treatment/Therapy Plan Authorization (Routine) - Authorized Specialty Diagnoses / Procedures Referred By Contact Refer red To Contact Diagnoses Urothelial carcinoma of kidney, right Malignant neoplasm of urinary bladder, unspecified site Neutropenia, drug-induced Metastatic urothelial carcinoma High risk medication use Alberto Bhatia MD [facility] Hem Onc Office Procedures TC PALONOSETRON HCL, 25MCG, INJECTION (ALOXI) TC ZOLEDRONIC ACID, 1 MG, INJECTION J2469 palonosetron (Aloxi) 0.25 MG [id number] enfortumab vedotin-ejfv (PADCEV) 125 mg [id number] ZOMETA [address] HEMATOLOGY/ONCOLOGY [place], [place] [phone] Fax: Referral ID Status Reason Start Date Expiration Date Visits V isits Requested Authorized [id number] Authorized 05/31/2022 05/30/2023 20 20 Encounter Details Date Type Department Care Team Description 12/21/2021 Infusion Hematology Oncology at [facility] metastases; [facility] Metastatic urothelial carcin flaquita; [address] [place] [address] High risk medication use; [place], [place] [phone] Neutropenia, drug-induced; [phone] Urothelial carc inoma of kidney, right; Malignant [...] documented as of this encounter Progress Notes Viviana Ruby RN - 12/21/2021 12:00 PM EST INFUSION THERAPY ADMINISTRATION NOTES DIAGNOSIS: Metastatic urothelial cancer CYCLE #: 1, Day 15 - Enfortumab and Zometa REASON FOR VISIT: To receive chemotherapy. SUBJECTIVE: Nancy admits to fatigue and weakness. She is ready for treatment. OBJECTIVE: LAB DATA: WBC - 9.31, Hg 11.7, Plt Ct - 261, ANC - 6.76, BUN/Cr - 40/1.7, Corrected Calcium 8.8, CrCl 51.92 IV ACCESS: PIV Pre administration: Chemotherapy orders independently verified for drug name, route, and dosage per patient's height, weight and BSA by VIVIANA RUBY, MORTEZA and Staff Pharmacist(s). REACTIONS (DESCRIPTION, TIME, INTERVENTION AND EFFECTIVENESS) none ASSESSMENT: Nancy was awake, alert and tolerated treatment well. PIV discontinued. PLAN: Return to clinic per routine. documented in this encounter Plan of Treatment Upcoming Encounters Date Type Specialty Care Team Description 10/21/2022 Appointment Hematology and Oncology 10/21/2022 Hospital Encounter Radiology Adilene Link[address] MEDICAL ONCOLOGY [place], [place] [phone] (Kwadwo morataya) 10/21/2022 Appointment Radiology Adilene Link[address] [place] [address] (Kwadwo morataya) 10/21/2022 Appointment Radiology Adilene Link[address] MEDICAL ONCOLOGY [place], [place] [phone] (Kwadwo morataya) 10/25/2022 Office Visit Hematology and Oncology Alberto Guy MD [facility] DR HEMATOLOGY/[place] [address] Adilene Link, [address] [place] [address] 11/09/2022 Office Visit Urology Bobo Davis MD [facility] UROLOGY [place], [place] [address] (Wo rk) documented as of [...] Rate Site calcium carbonate (Tums) chewable Given 12/21/2021 12:42 PM EST 500 mg tablet 500 mg 500 mg, Oral, ONCE, 1 dose, On Mon12/21/21 at 1245, Routine dexamethasone (Decadron) tablet 10 mg Given 12/21/2021 12:42 PM EST 10 mg 10 mg, Oral, ONCE, 1 dose, On Mon12/21/21 at 1245, Administer prior to chemotherapy, Routine enfortumab vedotin-ejfv (PADCEV) New Bag 12/21/2021 1:21 PM ES T 120 mg 124 mL/hr 120 mg in sodium chloride 0.9% 62 mL chemo infusion 120 mg, Intravenous, ONCE, 1 dose, On Mon12/21/21 at 1315, Administer over 30 Minutes, Dose Ordered = 125 mg (1.25 mg/kg). Pharmacist rounded dose per procedure. Warning Vesicant/Irritant Medication , This agent is restricted to outpatient use. Is this drug being given as an outpatient? Yes palonosetron (Aloxi) (0.05 mg/mL) injection Given 11/28 12:43 PM EST 0.25 mg 0.25 mg 0.25 mg, Intravenous, ONCE, 1 dose, On Mon12/21/21 at 1245, Administer over 30 seconds. Administer prior to chemotherapy, Routine sodium chloride 0.9% infusion New Bag 12/21/2021 12:56 PM EST 100 mL/hr 100 mL/hr 100 mL/hr, Intravenous, CONTINUOUS, Starting on Mon12/21/21 at 1245, Until Mon12/21/21 at 1750 zoledronic acid (Zometa) 3 mg in New Bag 12/21/2021 12:56 PM EST 3 mg 415 mL/hr sodium chloride 0.9% 103.75 mL infusion 3 mg, Intravenous, ONCE, 1 dose, On Mon12/21/21 at 1245, Administer over 15 Minutes, Do [...] metastases documented in this encounter Care Teams Third Miller Relationship Specialty Start Date End Date Derek Torres PA PCP - General Internal Medicine 06/07/21 Mahnaz CARLSON [address] [place] [address] documented as of this encounter
--- OUTSIDE RECORDS SUMMARY | 2022-10-07 18:38 | XMS_ITS | Encounter Summary ---
:1955 Author Organization [facility] [place] [address] Care Team Providers Name Role Phone Derek Torres Primary Care Provider Encounter Details Date Type Department Care Team Description 11/16/2021 Office Visit Hematology/Oncology Rah Shelton MD [facility] DR HEMATOLOGY/[place] [address] [facility] [address] [place] [address] [place] [address] Encounter for antineoplastic chemotherap y and immunotherapy; [address] Chronic deep vein thrombosis [place] [phone] Social History Tobacco Use Types Packs/Day Years Used Date Former Smoker Cigarettes 0.25 0 Quit: 06/2020 Smokeless Tobacco: Never Used Alcohol Use Standard Drinks/Week Comments Not Currently 0 (1 standard drink = 0.6 oz pure alcoho l) Sex Assigned at Date Recorded Not on file documented as of this encounter Last Filed Vital Signs Vital Sign Reading Time Taken Comments Blood Pressure 170/81 11/16/2021 11:18 AM EST Pulse 89 11/16/2021 11:18 AM EST Temperature 36.5 ??C (97.7 ??F) 11/16/2021 11:18 AM EST Respiratory Rate 16 11/16/2021 11:18 AM EST Oxygen Saturation 100% 11/16/2021 11:18 AM EST Inhaled Oxygen Concentration - - Weight 101.6 kg (224 lb) 11/16/2021 11:18 AM EST Height 161.3 cm (5' 3.5) 11/16/2021 11:18 AM EST Body Mass Index 39.05 11/16/2021 11:18 AM EST documented in this encounter Progress Notes Alberto Shelton MD - 11/16/2021 11:30 AM EST Images from the original [...] retroperitoneal lymph nodes on January 22 at [facility]. PET scan demonstrated i ncreased FDG uptake at the sites of urothelial thickening in the right renal pelvis and enlarged avid right para-aortic lymph nodes. Nancy complains on low energy level, difficulties sleeping and rightflank discomfort.Creatinine went up to 1.7 on December 30 from baseline creatinine of 0.5 in October2019. Nancy was admitted on March 19 with CHF/pulmonary edema thrombophlebitis of right upper extremity. She was started on diuretics and anticoagulation with Lovenox and and antibiotics with ciprofloxacin. INTERVAL history(11/16/21):- Nancy returns to the [facility] today to follow-up on metastatic urothelial carcinoma and discussion of treatment options. She was referred to the emergency room with swelling and pain of lower extremity and was diagnosed with DVT on October 28. Was discharged onLovenox. Pain medication prescribed by her primary care physician. She continues complain of low back pain. PMH: Lower extremity DVT on Luis UTI was treated with antibiotics Completed antibiotics for UTI about a week ago. 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 Finalpathology- [id number] High grade UCC with negative margins UTI E. coli 100,000 colonies PTSD/depression, diabetes mellitus on insulin, arthritis, , hernia repair x3, anxiety, hysterectomy for urinary incontinence 2 to 3 years ago Social History: No interval changes since last visit [id number] smoking history, quit 6 months ago, does [...] Medications: Your Medications Accurate as of November 16, 2021 11:32 AM. If you have any questions, [...] HYDROcodone-acetaminophen 5-325 mg Tab Commonly known as: Sylvia TAKE ONE TABLET BY MOUTH THREE TIMES [...] Generic drug: pyridoxine (vitamin B6) Refills: 0 STOPPED Medications cephALEXin 250 mg Cap Commonly known as: Keflex Stopped by: ALBERTO SHELTON MD enoxaparin 100 mg/mL Syrg Commonly known as: Lovenox Stopped by: ALBERTO SHELTON MD Review of Systems Constitutional: Positive for. Negative for chills and fever. Eyes: Negative [...] Thought content normal. Judgment: Judgment normal. BP 170/81 (Patient Position: Sitting) Pulse 89 Temp 36.5 ??C (97.7 ??F) (Temporal) Resp 16 Ht 161.3 cm (5' 3.5) Wt 101.6 kg (224 lb) SpO2 100% BMI 39.05 kg/m?? Wt Readings from Last 3 Encounters: 11/16/21 101.6 kg (224 lb) 10/19/21 98.9 kg (218 lb) 10/18/21 95.3 kg (210 lb) Pathology: 11/09/21 DIAGNOSIS Bone, L5, biopsy: Spicules of bone and bone marrow with rare cytokeratin positive single cells, ??suspicious for metastatic disease, see discussion DISCUSSION Sections show spicules of bone and bone marrow. ??[id number] by immunohistochemistry ??(performed twice) highlights a few single cells which I consider to be suspicious ??for metastatic disease in this clinical setting. ??However further subtyping is ??not possible based on this sample. ??Clinical correlation to assess the need for ??resampling is necessary. 06/16/21 ADDENDUM DISCUSSION PAS and BMS stains were evaluated for Block A17, demonstrating nodular ??glomerulosclerosis. DIAGNOSIS Right kidney and ureter with paracaval and intracaval lymph nodes, excision: ??- Urothelial carcinoma. ?? (See SYNOPTIC REPORT), invasive into ? perinephric fat and renal parenchyma. 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 Electronically signed by: ?MD Fadumo, Rick Lee Verified: ??06/24/2021 10:58 ??Pathologist Performed at: ??-[facility]??Dept. of Pathology, [place], [place] SYNOPTIC Specimen ?Procedure: ??Nephroureterectomy ?Specimen Laterality: [...] carcinoma with superimposed abundant degenerative changes Labs: 11/20/2021 WBC 10.69, hemoglobin 11, platelet count 286, ANC 7.71, BUN 44, creatinine 1.6, calcium 9.4, magnesium 2, TB 0.3, AST 13, ALT 41, alkaline phosphatase 96, 10/19/2021 BUN 44, creatinine 1.5, calcium 8.7, [...] Alk phos-97 Albumin-3.0 07/27/21- TSH-2.12 Free T4-1.13 urine culture greater than 100,000 gram-negative rods [...] WBC 10.4, hemoglobin 12.2, platelet count 347, Imagin10/29/2021 lumbar spine MRI: Impression: There are 2 similar appearing findings in the L5 and S1 vertebral body corresponding to sclerotic density on CT scan. This exhibits some mild surrounding increased signal in the enhancementand therefore may not be typical for benign bone island but possibly blastic lesions. No significantdisc herniation. No central canal stenosis. No significant foraminal stenosis 10/15/21 PET scan: IMPRESSION 1. Interval nephrectomy. [...] do MRI of lumbar and sacrum 11/16/21 she was admitted with leg swelling and pain diagnosed with DVT on Eliquis. Bone biopsy was suspicious for metastatic carcinoma. We discussed different options including rebiopsy of bone lesion versus observation versus switching to third line therapy such as enfortumab. On November 13, 2019, the Food and Drug Administration granted accelerated approval to enfortumab vedotin-ejfv (PADCEV, [employer] for adult patients with locally advanced or metastatic urothelial cancer who have previously received a programmed receptor-1 (PD-1) or programmed - ligand 1 (PD-L1) inhibitor, and a koyuk-containing chemotherapy in the neoadjuvant/adjuvant, locally advanced or metastatic setting. Enfortumab vedotin-ejfv is the first Kubppc-4-vuerqkcz antibody-drug conjugate to receive FDA approval. Efficacy was investigated in EV-201 ([id number]), a single-arm, multicenter trial enrolling 125 patients with locally advanced or metastatic urothelial cancer who received prior treatment with a PD-1 or PD-L1 inhibitor and koyuk- based chemotherapy. Patients received enfortumab vedotin-ejfv 1.25 mg/kg on days 1, 8, and 15 of a 28-day cycle until disease progression or unacceptable toxicity. The main efficacy outcome measures were confirmed objective response rate (CALL) and response duration as assessed by blinded independent central review using RECIST 1.1. The CALL was 44% (95% CI: 35.1, 53.2) with complete and partial response rates of 12% and 32%, respectively. The estimated median response duration was 7.6 months (95% CI: 6.3, not estimable). The most common adverse reactions (?20%) included fatigue, peripheral neuropathy, decreased appetite, rash, alopecia, nausea, dysgeusia, diarrhea, dry eye, pruritus and dry skin. Diabetic ketoacidosis and have occurred in patients treated with enfortumab vedotin-ejfv, regardless of pre-existing d iabetes mellitus. Blood glucose levels should be monitored closely in patients with, or at risk, fordiabetes mellitus or hyperglycemia. The recommended enfortumab vedotin-ejfv dose is 1.25 mg/kg (up to a maximum dose of 125 mg) administered as an intravenous infusion over 30 minutes on days 1, 8 and 15 of a 28-day cycle until disease progression or unacceptable toxicity. All questions were answered to patient's satisfaction. She is interested to proceed with Padcev. Verbal consent was obtained. We will start treatment next week # CHF: Follows with Dr. Ebony Beckham, had stress test on April 01, 2021 technically suboptimal, but no definite myocardial ischemia or evidence of prior infarction. EF 63% #Anemia: Multifactoral. It is slowly improving post surgery. Kidney insufficiency could contribute to anemia as well. It does contribute to her fatigue. Will monitor. # Elevated potassium-on losartan, follows with PCP. Recently decreased her lasix to once daily and is on Cozaar 100 mg daily. She sees her PCP at the end of this week and will follow up with him. #Bone sparing agent: We will set with dose adjusted Zometa Discussed initiation of bone sparing therapy with zoledronic acid. Printed information was providedon that medication. We will schedule him for infusion next visit. PLAN: 1. D/c nivolumab 2. Zometa 3 mg IV today 3. Next visit in 1 week with CBC, CMP, TSH, free T4 and D1C1 of enfortumab Nancy voiced understanding of the [...] Oncology 10/21/2022 Hospital Encounter Radiology Adilene Link[address] [place] [address] (Kwadwo morataya) 10/21/2022 Appointment Radiology Adilene Link[address] [address] (Kwadwo morataya) 10/21/2022 Appointment Radiology Adilene Link[address] [address] (Wo rk) 10/25/2022 Office Visit Hematology and Oncology Alberto Guy MD [facility] DR HEMATOLOGY/[place] [address] MEDICAL ONCOLOGY [place], [place] [id number] 11/09/2022 Office Visit Urology Bobo Davis MD [facility] UROLOGY [place], [place] [address] (Wo rk) documented as of this encounter Visit Diagnoses Diagnosis Metastatic urothelial carcinoma 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
--- OUTSIDE RECORDS SUMMARY | 2022-10-07 18:38 | XMS_ITS | Encounter Summary ---
:1955 Author Organization [place] [address] Care Team Providers Name Role Phone Derek Torres Primary Care Provider Reason for Visit Reason Comments Chemotherapy Cycle 2, Day 1 - Enfortumab Treatment/Therapy Plan Authorization (Routine) - Authorized Specialty Diagnoses / Procedures Referred By Contact Refer red To Contact Diagnoses Urothelial carcinoma of kidney, right Malignant neoplasm of urinary bladder, unspecified site Neutropenia, drug-induced Metastatic urothelial carcinoma High risk medication use Alberto Bhatia MD [facility] [[email or web address]] Hem Onc Office Procedures TC PALONOSETRON HCL, 25MCG, INJECTION (ALOXI) TC ZOLEDRONIC ACID, 1 MG, INJECTION J2469 palonosetron (Aloxi) 0.25 MG J9177 enfortumab vedotin-ejfv (PADCEV) 125 mg J3489 ZOMETA [address] HEMATOLOGY/[place] [phone] Fax: Referral ID Status Reason Start Date Expiration Date Visits V isits Requested Authorized [id number] Authorized 05/31/2022 05/30/2023 20 20 Encounter Details Date Type Department Care Team Description 01/04/2022 Infusion Hematology Oncology at [place] [facility] tastatic urothelial carcinoma; [facility] High risk medication use; [address] [place] [address] Neutropenia, drug-induced; [place], [place] [phone] Urothelial carcinoma of kidn ey, right; [phone] Malignant neopl asm of urinary bladder, unspecified [...] encounter Progress Notes Brittny Rondon RN - 01/04/2022 11:00 AM EST INFUSION THERAPY ADMINISTRATION NOTES DIAGNOSIS: Metastatic urothelial cancer CYCLE #: Cycle 2, Day 1 - Enfortumab REASON FOR VISIT: To receive chemotherapy. SUBJECTIVE: Nancy admits to fatigue and weakness. She states she is discouraged because her previous treatments stopped working. OBJECTIVE: Emotional support given. Visit with Victim Advocate. LAB DATA: WBC - 8.80, H/H - 11.7/37.7, Plt Ct - 294, ANC - 5.94, Lytes wnl, BUN/Cr - 34/1.7, Calcium- 8.5 IV ACCESS: PIV Pre administration: Chemotherapy orders independently verified for drug name, route, and dosage per patient's height, weight and BSA by Brittny Rondon RN and Staff Pharmacist(s). REACTIONS (DESCRIPTION, TIME, INTERVENTION AND EFFECTIVENESS) none ASSESSMENT: Nancy was awake, alert and tolerated treatment well. PIV discontinued. PLAN: Return to clinic in one week, 01/11/22. documented in this encounter Plan of Treatment Upcoming Encounters Date Type Specialty Care Team Description 10/21/2022 Appointment Hematology and Oncology 10/21/2022 Hospital Encounter Radiology Adilene Link[address] MEDICAL ONCOLOGY [place], [place] [phone] (Kwadwo morataya) 10/21/2022 Appointment Radiology Adilene Link[address] MEDICAL ONCOLOGY [place], [place] [phone] (Kwadwo morataya) 10/21/2022 Appointment Radiology Adilene Link[address] [place] [address] (Wo rk) 10/25/2022 Office Visit Hematology and Oncology Alberto Guy MD [facility] DR HEMATOLOGY/[place] [address] MEDICAL ONCOLOGY [facility], [place] [address] 11/09/2022 Office Visit Urology Bobo Davis MD [facility] DR UROLOGY [place], [place] [address] (Wo rk) documented as of [...] Rate Site dexamethasone (Decadron) tablet 10 Given 01/04/2022 11:42 AM EST 10 mg mg 10 mg, Oral, ONCE, 1 dose, On Mon01/04/22 at 1115, Administer prior to chemotherapy, Routine enfortumab vedotin-ejfv (PADCEV) New Bag 01/04/2022 11:[address] 120 mg 124 mL/hr 120 mg in sodium chloride 0.9% 62 mL chemo infusion 120 mg, Intravenous, ONCE, 1 dose, On Mon01/04/22 at 1215, Administer over 30 Minutes, Warning Vesicant/Irritant Medication Dose Ordered = 125 mg (1.25 mg/kg). Pharmacist rounded dose per procedure., This agent is restricted to outpatient use. Is this drug being given as an outpatient? Yes palonosetron (Aloxi) (0.05 mg/mL) injection Given 06/2022 11:42 AM EST 0.25 mg 0.25 mg 0.25 mg, Intravenous, ONCE, 1 dose, On Mon01/04/22 at 1115, Administer over 30 seconds. Administer prior to chemotherapy, Routine sodium chloride 0.9% infusion New Bag 01/04/2022 11:20 AM EST 100 mL/hr 100 mL/hr 100 mL/hr, Intravenous, CONTINUOUS, Starting on Mon01/04/22 at 1115, Until Mon01/04/22 at 1722 documented in this encounter Care Teams Leno Sewer Relationship Specialty Start Date End Date Derek Torres PA PCP - General Internal Medicine 06/07/21 Mahnaz [address] [place] [address] documented as of this encounter
--- OUTSIDE RECORDS SUMMARY | 2022-10-07 18:38 | XMS_ITS | Encounter Summary ---
:1955 Author Organization [facility] [place] [address] Care Team Providers Name Role Phone Derek Torres Primary Care Provider Encounter Details Date Type Department Care Team Description 12/14/2021 Office Visit Hematology/Oncology Rah Bhatia MD [facility] DR HEMATOLOGY/[place] [address] Metastatic urothelial at [facility], Adilene Mock APRN [address] [place] [address] [place] [address] [place] [phone] Social History Tobacco Use Types Packs/Day [...] Reading Time Taken Comments Blood Pressure 161/64 12/14/2021 9:20 AM EST Pulse 65 12/14/2021 9:20 AM EST Temperature 36.7 ??C (98.1 ??F) 12/14/2021 9:20 AM EST Respiratory Rate 20 12/14/2021 9:20 AM EST Oxygen Saturation 98% 12/14/2021 9:20 AM EST Inhaled Oxygen Concentration - - Weight 102.6 kg (226 lb 3.2 oz) 12/14/2021 9:20 AM EST Height 161.3 cm (5' 3.5) 12/14/2021 9:20 AM EST Body Mass Index 39.44 12/14/2021 9:20 AM EST documented in this encounter Progress Notes Nikolay Adilene Nish, MEDICAL RESEARCH ASSISTANT - 12/14/2021 9:30 AM EST Images from the original [...] retroperitoneal lymph nodes on January 22 at [facility]. Pathology is pending. PET scan demonstrated increased [...] Lovenox and and antibiotics with ciprofloxacin. INTERVAL history(12/14/21):- Nancy returns to the [facility] today to continue treatment for metastatic urothelial carcinoma. Overall doing well this morning. Her main complaint is fatigue. The subzero weather is bothering her bones. She feels the hydrocodone is working well for her. She states the lorazepam is really helping her mood and day to day coping and she is doing much better. Denies any urinary symptoms today. No fevers or chills. She has to take laxatives daily to keep her bowelsgoing. No changes in skin rash with mild itching. Her blood sugars have been elevated at home. She is waking up with higher blood sugars. No other focal complaints today. PMH: UTI was treated with antibiotics Completed antibiotics for UTI about a week ago. 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 Finalpathology- [id number] High grade UCC with negative margins UTI E. coli 100,000 colonies PTSD/depression, diabetes mellitus on insulin, arthritis, , hernia repair x3, anxiety, hysterectomy for urinary incontinence 2 to 3 years ago Social History: No interval changes since last visit [id number]-tqzk smoking history, quit 6 months ago, does [...] Medications: Your Medications Accurate as of December 14, 2021 9:25 AM. If you have any questions, ask [...] HYDROcodone-acetaminophen 5-325 mg Tab Commonly known as: [place] TAKE ONE TABLET BY MOUTH THREE TIMES [...] normal. BP 161/64 (Patient Position: Sitting) Pulse 65 Temp 36.7 ??C (98.1 ??F) (Temporal) Resp 20 Ht 161.3 cm (5' 3.5) Wt 102.6 kg (226 lb 3.2 oz) SpO2 98% BMI 39.44 kg/m?? Wt Readings from Last 3 Encounters: 12/14/21 102.6 kg (226 lb 3.2 oz) 12/07/21 103.9 kg (229 lb) 12/01/21 103.1 kg (227 lb 3.2 oz) Pathology: 06/16/21 ADDENDUM DISCUSSION PAS and BMS stains were evaluated for Block A17, demonstrating nodular ??glomerulosclerosis. Electronically signed by: ?MD Thorne Jason R. Verified: ??06/24/2021 11:01 ??Pathologist Performed at: ??-[facility] Dept. of Pathology, [place], [place] ? Surgical Pathology DIAGNOSIS Right kidney and ureter with paracaval and intracaval lymph nodes, excision: ??- Urothelial carcinoma. ?? (See SYNOPTIC REPORT), invasive into ? perinephric fat and renal parenchyma. 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 Electronically signed by: ?MD Thorne Jason R. Verified: ??06/24/2021 10:58 ??Pathologist Performed at: ??-[facility] [place]Dept. of Pathology, [place], [place] SYNOPTIC Specimen ?Procedure: ??Nephroureterectomy ?Specimen Laterality: [...] carcinoma with superimposed abundant degenerative changes Labs: 12/14/21- WBC-8.75 Hgb/Hct-11.3/37.5 Plt-251 ANC-6.11 Na-137 K+-5.4 [...] of lumbar and sacrum Nancy returns today for C1D8. BP has been stabilized, no urinary symptoms and she feels well today. Blood sugar is elevated today. We will continue with treatment today and have her follow up with her PCP for blood sugar control. She understands this can be a side effect of the therapy and importance of glucose control in continuing therapy. Labs and toxicities assessed. We will proceed [...] with Enfortumab vedotin D1 today as scheduled. 2. Continue Zometa 3mg IV every 4 weeks. 3. Continue calcium supplements as prescribed 3. Follow up with PCP for glucose control. PCP office notified of her blood sugar. 4. Follow up visit in one week with CBC,CMP and D15 Enfortumab vedotin. Nancy voiced understanding of the [...] 10/21/2022 Hospital Encounter Radiology Adilene Link APRN [address] [place] [address] DR MEDICAL ONCOLOGY [place], [place] [id number] (Kwadwo morataya) 10/21/2022 Appointment Radiology Adilene Link MEDICAL RESEARCH ASSISTANT [address] [place] [address] MEDICAL ONCOLOGY [place], [place] [phone] (Kwadwo morataya) 10/21/2022 Appointment Radiology Adilene Link [address] MEDICAL ONCOLOGY [place], [place] [id number] [phone] (Kwadwo morataya) 10/25/2022 Office Visit Hematology and Oncology Alberto Guy MD [facility] DR HEMATOLOGY/[place] [address] [address] [place] [address] 11/09/2022 Office Visit Urology Bobo Davis MD 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
--- OUTSIDE RECORDS SUMMARY | 2022-10-07 18:38 | XMS_ITS | Encounter Summary ---
:1955 Author Organization [facility] [place] [address] Care Team Providers Name Role Phone Derek Torres Primary Care Provider Reason for Visit Reason Comments Chemotherapy C1D8 Enfortumab Treatment/Therapy Plan Authorization (Routine) - Authorized Specialty Diagnoses / Procedures Referred By Contact Refer red To Contact Diagnoses Urothelial carcinoma of kidney, right Malignant neoplasm of urinary bladder, unspecified site Neutropenia, drug-induced Metastatic urothelial carcinoma High risk medication use Alberto Bhatia MD [facility] Hem Onc Office Procedures TC PALONOSETRON HCL, 25MCG, INJECTION (ALOXI) TC ZOLEDRONIC ACID, 1 MG, INJECTION J2469 palonosetron (Aloxi) 0.25 MG J9177 enfortumab vedotin-ejfv (PADCEV) 125 mg J3489 ZOMETA 3 MG [facility] [address] [place] [address] HEMATOLOGY/[place] [phone] Fax: Referral ID Status Reason Start Date Expiration Date Visits V isits Requested Authorized [id number] Authorized 05/31/2022 05/30/2023 20 20 Encounter Details Date Type Department Care Team Description 12/14/2021 Infusion Hematology Oncology at [facility] tastatic urothelial carcinoma; [facility] High risk medication use; [address] [place] [address] Neutropenia, drug-induced; [place], [place] [phone] Urothelial carcinoma of kidn ey, right; [phone] Malignant neopl asm of urinary bladder, unspecified [...] encounter Progress Notes Graciela Gay RN - 12/14/2021 10:00 AM EST INFUSION THERAPY ADMINISTRATION NOTES DIAGNOSIS: Metastatic urothelial cancer CYCLE #: Cycle 1, Day 8 - Enfortumab REASON FOR VISIT: To receive chemotherapy. SUBJECTIVE: Nancy admits to fatigue and weakness. She is ready for treatment. OBJECTIVE: LAB DATA: WBC - 8.75, H/H - 11.3/37.5, Plt Ct - 251, ANC - 6.11, Lytes wnl, BUN/Cr - 40/1.7, Calcium- 8.5 IV ACCESS: PIV Pre administration: [...] and Oncology 10/21/2022 Hospital Encounter Radiology Adilene Link[address] MEDICAL ONCOLOGY [place], [place] [phone] (Kwadwo morataya) 10/21/2022 Appointment Radiology Adilene Link[address] MEDICAL ONCOLOGY [place], [place] [phone] (Kwadwo morataya) 10/21/2022 Appointment Radiology Adilene Link[address] MEDICAL ONCOLOGY [place], [place] [phone] (Kwadwo morataya) 10/25/2022 Office Visit Hematology and Oncology Alberto Guy MD [facility] DR HEMATOLOGY/[place] [address] Adilene Link, [address] [place] [address] 11/09/2022 Office Visit Urology Bobo Davis MD [facility] DR UROLOGY [place], [place] [address] (Wo rk) documented as of [...] Rate Site dexamethasone (Decadron) tablet 10 Given 12/14/2021 10:26 AM EST 10 mg mg 10 mg, Oral, ONCE, 1 dose, On Mon12/14/21 at 1015, Administer prior to chemotherapy, Routine enfortumab vedotin-ejfv (PADCEV) New Bag 12/14/2021 10:[address] 120 mg 124 mL/hr 120 mg in sodium chloride 0.9% 62 mL chemo infusion 120 mg, Intravenous, ONCE, 1 dose, On Mon12/14/21 at 1115, Administer over 30 Minutes, Dose Ordered = 125 mg (1.25 mg/kg). Pharmacist rounded dose per procedure. Warning Vesicant/Irritant Medication , This agent is restricted to outpatient use. Is this drug being given as an outpatient? Yes palonosetron (Aloxi) (0.05 mg/mL) injection Given 11/27 10:30 AM EST 0.25 mg 0.25 mg 0.25 mg, Intravenous, ONCE, 1 dose, On Mon12/14/21 at 1015, Administer over 30 seconds. Administer prior to chemotherapy, Routine sodium chloride 0.9% infusion New Bag 12/14/2021 10:31 AM EST 100 mL/hr 100 mL/hr 100 mL/hr, Intravenous, CONTINUOUS, Starting on Mon12/14/21 at 1015, Until Mon12/14/21 at 1759 documented in this encounter Care Teams District Plant Superintendent Relationship Specialty Start Date End Date Derek Torres PA PCP - General Internal Medicine 06/07/21 Mahnaz [address]LSON [address] [place] [address] documented as of this encounter
--- OUTSIDE RECORDS SUMMARY | 2022-10-07 18:38 | XMS_ITS | Encounter Summary ---
:1955 Author Organization [facility] [place] [address] Care Team Providers Name Role Phone Derek Torres Primary Care Provider Encounter Details Date Type Department Care Team Description 12/01/2021 Office Visit Hematology/Oncology Adilene Link, [place] static urothelial carcinoma; at [facility] LOAN FUNDER Hypertension, unspecified type [address] [place] [address] [place], [place] [address] [place], [place] [phone] (Wo rk) Social History Tobacco Use Types [...] Sign Reading Time Taken Comments Blood Pressure 203/69 12/01/2021 9:33 AM EST Pulse 71 12/01/2021 9:33 AM EST Temperature 36.6 ??C (97.8 ??F) 12/01/2021 9:33 AM EST Respiratory Rate 20 12/01/2021 9:33 AM EST Oxygen Saturation 97% 12/01/2021 9:33 AM EST Inhaled Oxygen Concentration - - Weight 103.1 kg (227 lb 3.2 oz) 12/01/2021 9:33 AM EST Height 161.3 cm (5' 3.5) 12/01/2021 9:33 AM EST Body Mass Index 39.61 12/01/2021 9:33 AM EST documented in this encounter Progress Notes Adilene Link, LOAN FUNDER - 12/01/2021 10:00 AM EST Images from the original note [...] retroperitoneal lymph nodes on January 22 at [facility]. Pathology is pending. PET scan [...] Lovenox and and antibiotics with ciprofloxacin. INTERVAL history(12/01/21):- Nancy returns to the [facility] today to follow-up on metastatic urothelial carcinoma. She will be starting treatment with Padcev. Nancy's urinary symptoms have resolved and she has 2 days of her antibiotic left. No fevers or chills. She is feeling much better today. She met with Palliative Care once but didn't feel it was appropriate for her needs so she won't befollowing up with them. No changes in skin rash with mild itching. Her blood pressure is elevated again today. She has not seen her PCP. Will arrange for that today. No other focal complaints today. PMH: UTI was treated with antibiotics Completed antibiotics for UTI about a week ago. 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 Finalpathology- [id number] High grade UCC with negative margins UTI E. coli 100,000 colonies PTSD/depression, diabetes mellitus on insulin, arthritis, , hernia repair x3, anxiety, hysterectomy for urinary incontinence 2 to 3 years ago Social History: No interval changes since last visit [id number] smoking history, quit 6 months ago, does [...] Medications: Your Medications Accurate as of December 01, 2021 11:39 AM. If you have any questions, ask [...] by mouth Daily. 1,000 Units Refills: 0 ciprofloxacin 250 mg Tab Commonly known as: Cipro Take 1 tablet by mouth 2 times daily. 250 mg Quantity: 20 tablet Refills: 0 docusate sodium 100 mg Cap [...] HYDROcodone-acetaminophen 5-325 mg Tab Commonly known as: [place] TAKE ONE TABLET BY MOUTH THREE TIMES [...] 0 Jeanne Pen Needle 32 gauge x /32 Ndle Generic drug: insulin needles (disposable) Refills: [...] content normal. Judgment: Judgment normal. BP (!) 203/69 (Patient Position: Sitting) Pulse 71 Temp 36.6 ??C (97.8 ??F) (Temporal) Resp 20 Ht 161.3 cm (5' 3.5) Wt 103.1 kg (227 lb 3.2 oz) SpO2 97% BMI 39.61 kg/m?? Wt Readings from Last 3 Encounters: 12/01/21 103.1 kg (227 lb 3.2 oz) 11/23/21 105.1 kg (231 lb 12.8 oz) 11/16/21 101.6 kg (224 lb) Pathology: 06/16/21 ADDENDUM DISCUSSION PAS and BMS stains were evaluated for Block A17, demonstrating nodular ??glomerulosclerosis. Electronically signed by: ?MD Thorne Jason R. Verified: ??06/24/2021 11:01 ??Pathologist Performed at: ??-[facility] [place], [place], [place] ? Surgical Pathology DIAGNOSIS Right kidney and ureter with paracaval and intracaval lymph nodes, excision: ??- Urothelial carcinoma. ?? (See SYNOPTIC REPORT), invasive into ? perinephric fat and renal parenchyma. 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 Electronically signed by: ?MD Thorne Jason R. Verified: ??06/24/2021 10:58 ??Pathologist Performed at: ??-[facility]Dept. of Pathology, [place], [place] SYNOPTIC Specimen ?Procedure: ??Nephroureterectomy ?Specimen Laterality: [...] carcinoma with superimposed abundant degenerative changes Labs: 12/01/21- WBC-9.78 Hgb/Hct-11.2/36.4 Plt-270 ANC-7.11 Na-138 K+-5.2 [...] will do MRI of lumbar and sacrum 12/01/21- Nancy scheduled to start treatment today but her blood pressure is not controlled. We will have her see her PCP today and reschedule her for treatment on Monday. # CHF: Follows with Dr. Ebony Beckham, had stress test on April 01, 2021 technically suboptimal, but no definite myocardial ischemia or evidence of prior infarction. EF 63% #Anemia: Multifactoral. It is slowly improving post surgery. Kidney insufficiency could contribute to anemia as well. It does contribute to her fatigue. Will monitor. # Hypertension- 203/96. BP has been elevated last 2 visits. Called PCP's office and they will see her today. #Bone sparing agent: Recieved bone sparing therapy zoledronic acid. Ca- 8.8 today- improved. Continue calcium citrate 500mg three times a day with meals. Continue Vitamin D supplement. #UTI- Symptoms resolved. She has 2 days of Cipro 250mg left. PLAN: 1. Reschedule Enfortumab vedotin for Monday12/08/21. 3. Continue calcium supplements as prescribed 3. Follow up with Dr. Khalil today for BP control. 4. Follow up visitTday with CBC,CMP and D1 Enfortumab vedotin. Nancy [...] and Oncology 10/21/2022 Hospital Encounter Radiology Adilene Link[address] [address] (Wo rk) 10/21/2022 Appointment Radiology Adilene Link[address] ONCOLOGY [place], [place] [address] [phone] (Wo rk) 10/21/2022 Appointment Radiology Adilene Link[address] MEDICAL ONCOLOGY [place], [place] [phone] (Wo rk) 10/25/2022 Office Visit Hematology and Oncology Alberto Guy MD [facility] DR HEMATOLOGY/[place] [address] MEDICAL ONCOLOGY [place], [place] [address] [phone] 11/09/2022 Office Visit Urology Bobo Davis MD [facility] DR UROLOGY [place], [place] [address] (Wo rk) documented as of this encounter Visit Diagnoses Diagnosis Metastatic urothelial carcinoma 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
--- OUTSIDE RECORDS SUMMARY | 2022-10-07 18:38 | XMS_ITS | Encounter Summary ---
:1955 Author Organization [facility] [place] [address] Care Team Providers Name Role Phone Derek Torres Primary Care Provider Encounter Details Date Type Department Care Team Description 11/04/2021 Orders Only Hematology/Oncology at [facility] [address] [facility] [phone] Social History Tobacco Use Types Packs/Day Years [...] Oncology 10/21/2022 Hospital Encounter Radiology Adilene Link [address] ONCOLOGY [place], [place] [phone] (Wo rk) 10/21/2022 Appointment Radiology Adilene Link [address] ONCOLOGY [place], [place] [phone] (Wo rk) 10/21/2022 Appointment Radiology Adilene Link [address] ONCOLOGY [place], [place] [phone] (Wo rk) 10/25/2022 Office Visit Hematology and Oncology Alberto Guy MD [facility] HEMATOLOGY/[place] [address] MEDICAL ONCOLOGY [place], [place] [address] 11/09/2022 Office Visit Urology Bobo Davis MD [facility] UROLOGY [place], [place] [address] (Wo rk) documented as of this encounter Visit Diagnoses Not on filedocumented in this encounter Care Teams Plant Hr Manager Relationship Specialty Start Date End Date Derek Torres PA PCP - General Internal Medicine 06/07/21 Mahnaz CARLSON [address] [place], [place] [phone] documented as of this encounter
--- OUTSIDE RECORDS SUMMARY | 2022-10-07 18:38 | XMS_ITS | Encounter Summary ---
:1955 Author Organization [facility] [place] [address] Care Team Providers Name Role Phone Derek Torres Primary Care Provider Encounter Details Date Type Department Care Team Description 11/04/2021 Orders Only Hematology/Oncology at [facility] [address] ONCOLOGY [facility] [phone] Social History Tobacco Use Types Packs/Day Years [...] Oncology 10/21/2022 Hospital Encounter Radiology Adilene Link [address] ONCOLOGY [place], [place] [phone] (Wo rk) 10/21/2022 Appointment Radiology Adilene Link [address] ONCOLOGY [place], [place] [phone] (Wo rk) 10/21/2022 Appointment Radiology Adilene Link [address] ONCOLOGY [place], [place] [phone] (Wo rk) 10/25/2022 Office Visit Hematology and Oncology Alberto Guy MD [facility] HEMATOLOGY/[place] [address] [address] MEDICAL ONCOLOGY [place], [place] [phone] 11/09/2022 Office Visit Urology Bobo Davis MD [facility] UROLOGY [place], [place] [address] (Wo rk) documented as of this encounter Visit Diagnoses Not on filedocumented in this encounter Care Teams Envelope Stamping Machine Operator Relationship Specialty Start Date End Date Derek Torres PA PCP - General Internal Medicine 06/07/21 Mahnaz CARLSON [address] [place], [place] [address] documented as of this encounter
--- OUTSIDE RECORDS SUMMARY | 2022-10-07 18:38 | XMS_ITS | Encounter Summary ---
:1955 Author Organization [facility] Address [address] [place] [address] Care Team Providers Name Role Phone Derek Torres Primary Care Provider Reason for Visit Reason Onset Date Comments Follow-up 02/15/2022 Encounter Details Date Type Department Care Team Description 02/15/2022 Telephone Hematology/Oncology at Barb Dennis RN Follow-up [address] [phone] Social History Tobacco Use Types Packs/Day Years Used Date Former Smoker Cigarettes 0.25 0 Quit: 06/2020 Smokeless Tobacco: Never Used Alcohol Use Standard Drinks/Week Comments Not Currently 0 (1 standard drink = 0.6 oz pure alcoho l) Sex Assigned at Date Recorded Not on file documented as of this encounter Miscellaneous Notes Telephone Encounter - Barb Dennis RN - 02/15/2022 1:17 PM EDT Called pt to check in with her as she had appointment today with Dr. Bhatia at 1pm. There was no answer, left message on voice mail to return my call. documented in this encounter Plan of Treatment Upcoming Encounters Date Type Specialty Care Team Description 10/21/2022 Appointment Hematology and Oncology 10/21/2022 Hospital Encounter Radiology Adilene Link, LABORER HEADING [address] [place] [address] [place] [address] (Wo rk) 10/21/2022 Appointment Radiology Adilene Link[address] MEDICAL ONCOLOGY [place], [place] [phone] (Wo rk) 10/21/2022 Appointment Radiology Adilene Link[address] MEDICAL ONCOLOGY [place], [place] [phone] (Wo rk) 10/25/2022 Office Visit Hematology and Oncology Alberto Guy MD [facility] DR HEMATOLOGY/[place] [address] MEDICAL ONCOLOGY [place], [place] [phone] 11/09/2022 Office Visit Urology Bobo Davis MD [facility] DR UROLOGY [place], [place] [address] (Wo rk) documented as of this encounter Visit Diagnoses Not on filedocumented in this encounter Care Teams Flame Burner Relationship Specialty Start Date End Date Derek Torres PA PCP - General Internal Medicine 06/07/21 Mahnaz CARLSON [address] [place] [phone] documented as of this encounter
--- OUTSIDE RECORDS SUMMARY | 2022-10-07 18:38 | XMS_ITS | Encounter Summary ---
:1955 Author Organization [facility] [place] [address] Care Team Providers Name Role Phone Derek Torres Primary Care Provider Encounter Details Date Type Department Care Team Description 01/04/2022 Office Visit Hematology/Oncology Adilene Link, [place] static urothelial carcinoma; at [facility] COUNTY ENGINEER Drug-induced skin rash [address] [facility] [place], [place] MEDICAL [place]OG Y [address] [place], [place] [phone] (Wo rk) Social History Tobacco Use Types [...] Sign Reading Time Taken Comments Blood Pressure 171/67 01/04/2022 10:07 AM EST Pulse 72 01/04/2022 10:07 AM EST Temperature 36.5 ??C (97.7 ??F) 01/04/2022 10:07 AM EST Respiratory Rate 20 01/04/2022 10:07 AM EST Oxygen Saturation 99% 01/04/2022 10:07 AM EST Inhaled Oxygen Concentration - - Weight 104.3 kg (230 lb) 01/04/2022 10:07 AM EST Height 161.3 cm (5' 3.5) 01/04/2022 10:07 AM EST Body Mass Index 40.1 01/04/2022 10:07 AM EST documented in this encounter Progress Notes Adilene Link, COUNTY ENGINEER - 01/04/2022 10:30 AM EST Images from the original note were not included. Hematology & Medical Oncology [address] [phone] Nancy returns today to continue treatment for [...] use Z79.899 ??? Bone metastases C79.51 HPI:Nancy L Kylee is 66 y.o. F referred by Dr. [...] retroperitoneal lymph nodes on January 22 at [facility]. Pathology is pending. PET scan demonstrated increased [...] Lovenox and and antibiotics with ciprofloxacin. INTERVAL history(01/04/22):- Nancy returns to the [facility] today to continue treatment formetastatic urothelial carcinoma. . Her main complaint is back pain, which limits her mobility. She is currently getting physical and occupational therapy which is helping. She feels easily tired but thinks it may be related to the lorazepam which she has cut back on. She has a scattered macular rash on her arms and upper torso. It is itchy. Denies any urinary symptoms today. No fevers or chills. She has to take laxatives daily to keep her bowels going. No fever or chills. She had a couple of episodes of mild nausea but no vomiting. She developed UTI symptoms again and her PCP ordered antibiotics for her- she has a couple of days left. No fevers. No other focal complaints today. PMH: No interval changes since last visit UTI was treated with antibiotics Completed antibiotics for UTI about a week ago. 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 Finalpathology- [id number] High grade UCC with negative margins UTI E. coli 100,000 colonies PTSD/depression, diabetes mellitus on insulin, arthritis, , hernia repair x3, anxiety, hysterectomy for urinary incontinence 2 to 3 years ago Social History: No interval changes since last visit [id number]-avts smoking history, quit 6 months ago, does [...] Medications: Your Medications Accurate as of January 04, 2022 10:26 AM. If you have any questions, ask [...] daily (with meals). 1 tablet Refills: 0 cephALEXin 250 mg Cap Commonly known as: Keflex TAKE ONE CAPSULE BY MOUTH TWICE A DAY FOR 10 DAYS Refills: 0 cholecalciferol (Vitamin D3) 1,000 unit Tab Commonly known as: Vitamin D3 Take 1,000 Units by mouth Daily. 1,000 Units Refills: 0 docusate sodium 100 mg Cap Commonly known as: Colace Take 100 mg by mouth 2 times daily. 100 mg Refills: 0 furosemide 20 mg Tab [...] HYDROcodone-acetaminophen 5-325 mg Tab Commonly known as: [place] TAKE ONE TABLET BY MOUTH THREE TIMES [...] Thought content normal. Judgment: Judgment normal. BP 171/67 (Patient Position: Sitting) Pulse 72 Temp 36.5 ??C (97.7 ??F) (Temporal) Resp 20 Ht 161.3 cm (5' 3.5) Wt 104.3 kg (230 lb) SpO2 99% BMI 40.10 kg/m?? Wt Readings from Last 3 Encounters: 01/04/22 104.3 kg (230 lb) 12/21/21 103.4 kg (228 lb) 12/14/21 102.6 kg (226 lb 3.2 oz) Pathology: 06/16/21 ADDENDUM DISCUSSION PAS and BMS stains were evaluated for Block A17, demonstrating nodular ??glomerulosclerosis. Electronically signed by: ?MD Thorne Jason R. Verified: ??06/24/2021 11:01 ??Pathologist Performed at: ??-[facility] Dept. of [place], [place], [place] ? Surgical Pathology DIAGNOSIS Right kidney and ureter with paracaval and intracaval lymph nodes, excision: ??- Urothelial carcinoma. ?? (See SYNOPTIC REPORT), invasive into ? perinephric fat and renal parenchyma. 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 Electronically signed by: ?MD Thorne Jason R. Verified: ??06/24/2021 10:58 ??Pathologist Performed at: ??-[facility]Dept. of Pathology, [place], [place] SYNOPTIC Specimen ?Procedure: ??Nephroureterectomy ?Specimen Laterality: [...] carcinoma with superimposed abundant degenerative changes Labs: 01/04/22- WBC-8.80 Hgb/Hct-11.7/37.7 Plt-294 ANC-5.94 Na-139 K+-4.7 [...] scan after completionof 3 cycles of Padcev. # CHF: Follows [...] Continue steroid cream as prescribed. PLAN: 1. Proceed with Enfortumab vedotin today as scheduled. 2. Continue Zometa 3mg IV every 4 weeks 3. Continue calcium supplements as prescribed 4. Restaging PET scan or CT scan after completion of 3 cycles of Enfortumab vedotin. 5. Prescription refilled for steroid cream to use on rash. 6. Follow up visit in one weeks with CBC,CMP and C2D8 Enfortumab vedotin. Nancy voiced understanding of the [...] and Oncology 10/21/2022 Hospital Encounter Radiology Adilene Link[address] [place] [address] (Wo rk) 10/21/2022 Appointment Radiology Adilene Link[address] [place] [address] (Wo rk) 10/21/2022 Appointment Radiology Adilene Link[address] [place] [address] (Wo rk) 10/25/2022 Office Visit Hematology and Oncology Alberto Guy MD [facility] [address] HEMATOLOGY/[place] [address] [address] MEDICAL ONCOLOGY [place], [place] [address] [phone] 11/09/2022 Office Visit Urology Bobo Davis MD [facility] DR UROLOGY [place], [place] [address] (Wo rk) documented as of this encounter Visit Diagnoses Diagnosis Metastatic urothelial carcinoma 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
--- OUTSIDE RECORDS SUMMARY | 2022-10-07 18:38 | XMS_ITS | Encounter Summary ---
:1955 Author Organization [facility] [place] [address] Care Team Providers Name Role Phone Derek Torres Primary Care Provider Reason for Visit Reason Onset Date Comments Other 11/03/2021 Encounter Details Date Type Department Care Team Description 11/03/2021 Telephone Hematology/Oncology at Barb Dennis RN Other [address] [phone] Social History Tobacco Use Types Packs/Day Years Used Date Former Smoker Cigarettes 0.25 0 Quit: 06/2020 Smokeless Tobacco: Never Used Alcohol Use Standard Drinks/Week Comments Not Currently 0 (1 standard drink = 0.6 oz pure alcoho l) Sex Assigned at Date Recorded Not on file documented as of this encounter Miscellaneous Notes Telephone Encounter - Barb Dennis RN - 11/03/2021 4:22 PM EST Pt calls and states she has a UTI and concerned that it came fro taking two lasix one day. Reviewed with Rocco Link Garage Mechanic she stated this would not cause that. Pt taking hydrocodone for pain she is concerned she may be allergic as she is now taking it at three times a day, her hands are red and itchy. She has been using hydrocortisone cream for the itching with good effect. Rocco Link would like herto talk with PCP about this. She will also make a referral to palliative care for help with pain management. Nancy agrees with this. Nancy states her blood sugars have been low and has not needed insulin in the past 24 hours, she said this is not normal for her. Per rocco she needs to talk with PCP about this. Nancy states she has been in contact with them daily, asked her to call them again now. Sheagrees with this. She will call with further questions or concerns. documented in this encounter Plan of Treatment Upcoming Encounters Date Type Specialty Care Team Description 10/21/2022 Appointment Hematology and Oncology 10/21/2022 Hospital Encounter Radiology Rocco Link[address] [place] [address] (Wo rk) 10/21/2022 Appointment Radiology Rocco Link[address] [place] [address] (Wo rk) 10/21/2022 Appointment Radiology Rocco Link[address] [place]COLOGY [place], [place] [address] [phone] (Wo rk) 10/25/2022 Office Visit Hematology and Oncology Alberto Guy MD [facility] DR HEMATOLOGY/[place] [address] [place] [address] 11/09/2022 Office Visit Urology Bobo Davis MD [facility] DR UROLOGY [place], [place] [address] (Wo rk) documented as of this encounter Visit Diagnoses Not on filedocumented in this encounter Care Teams Interior Paneler Relationship Specialty Start Date End Date Derek Torres PA PCP - General Internal Medicine 06/07/21 Mahnaz CARLSON [address] [place] [address] [phone] documented as of this encounter
--- OUTSIDE RECORDS SUMMARY | 2022-10-07 18:38 | XMS_ITS | Encounter Summary ---
:1955 Author Organization [facility] [place] [address] Care Team Providers Name Role Phone Derek Torres Primary Care Provider Encounter Details Date Type Department Care Team Description 11/09/2021 Laboratory Appointment Lab 3L [facility] Bone metastases; [facility] [place] [phone] Social History Tobacco Use Types Packs/Day Years [...] Oncology 10/21/2022 Hospital Encounter Radiology Adilene Link [address] MEDICAL ONCOLOGY [place], [place] [phone] (Kwadwo morataya) 10/21/2022 Appointment Radiology Adilene Link [address] MEDICAL ONCOLOGY [place], [place] [phone] (Kwadwo morataya) 10/21/2022 Appointment Radiology Adilene Link [address] MEDICAL ONCOLOGY [place], [place] [phone] (Kwadwo morataya) 10/25/2022 Office Visit Hematology and Oncology Alberto Guy MD [facility] DR HEMATOLOGY/[place] [address] [address] [place] [address] 11/09/2022 Office Visit Urology Bobo Davis MD [facility] DR UROLOGY [place], [place] [address] (Wo rk) documented as of this encounter Procedures Procedure Name Priority Date/Time Associated Diagnosis Comme nts HC VENIPUNCTURE STAT 11/09/2021 11:11 AM Bone metasta ses Results for this EST Pre-op testing procedure are in the results section. HC PLATELET COUNT STAT 11/09/2021 11:11 AM Bone metas tases Results for this EST Pre-op testing procedure are in the results section. documented in this encounter Results Platelet count (11/09/2021 11:11 AM EST) P athologist Signature Platelets 268 145 - 357 [facility] x10(3)/[facility] LABORATORY Plat Immature 2.4 0.0 - 7.4 LORE BIBI % % [facility] LABORATORY Comment: Limitation of the Immature Platelet Frac tion (IPF)-May be less reliable when the platelet count is less than 71t114/u L due to statistical imprecision. The IPF [...] in a decreased state of production. References: [employer] The Clinical Value of the Immature Platelet Fraction (IPF) in Cell Recovery Document Number [id number] 04/2011 [employer] The Role of the Imm ature Platelet Fraction (IPF) in the Differential Diagnosis of Thrombocytopen ia, Document [id number] V05/11/09 P004/09 Specimen Anatomical Collection Method Collection Time Receive d Time (Source) Location / / Volume Laterality Blood 11/09/2021 11:11 11/09/2021 AM EST 11:41 AM EST Resulting Agency Comment Spec In Lab Alberto Bhatia MD HEMATOLOGY ORDERABLES Performing Organization Address City/[facility]/[place] [address] Prothrombin Time (11/09/2021 11:11 AM EST) P athologist Signature PT 10.5 9.4 - 12.5 [facility] LABORATORY INR 0.9 [facility] LABORATORY Comment: An INR <2.0 indicates [...] Bhatia MD HEMATOLOGY ORDERABLES Performing Organization Address City/[facility]/ZIP [facility] [place] [address] documented in this encounter Visit Diagnoses Diagnosis Bone metastases Secondary malignant neoplasm of bone and bone marrow Pre-op testing Preoperative examination, unspecified documented in this encounter Care Teams Professor Of Kinesiology Relationship Specialty Start Date End Date Derek Torres PA PCP - General Internal Medicine 06/07/21 Mahnaz CARLSON 1 [place] [address] documented as of this encounter
--- OUTSIDE RECORDS SUMMARY | 2022-10-07 18:38 | XMS_ITS | Encounter Summary ---
:1955 Author Organization [place] [address] Care Team Providers Name Role Phone Derek Torres Primary Care Provider Encounter Details Date Type Department Care Team Description 12/07/2021 Notes Only Hematology/Oncology at Julia Morris BAR HOST [facility] OFFICE OF CARE [address] [place] [phone] Social History Tobacco Use Types Packs/Day Years Used Date Former Smoker Cigarettes 0.25 0 Quit: 06/2020 Smokeless Tobacco: Never Used Alcohol Use Standard Drinks/Week Comments Not Currently 0 (1 standard drink = 0.6 oz pure alcoho l) Sex Assigned at Date Recorded Not on file documented as of this encounter Progress Notes Julia Morris MSW - 12/07/2021 11:30 AM EST Follow up with pt during her infusion visit. Pt indicated she is back in treatment and is on a new regime. Pt indicated she is managing as best she can day to day at home. She has the [facility] for nursing visits 2x a week and a MOBILE LOUNGE DRIVER OR OPERATOR for personal care 2x a week. Her is her primary support but he is working. Pt to contact [facility] about options for rides on her treatment days as her can not bring her because of work. Gave pt the contact number to [facility] to discuss her situation. Pt also requesting PSF/NSA information/application to [facility]. BAR HOST gave her this information Offered support. Reminded pt of BAR HOST availability and contact information. Will continue to follow for support and resources.. documented in this encounter Plan of Treatment Upcoming Encounters Date Type Specialty Care Team Description 10/21/2022 Appointment Hematology and Oncology 10/21/2022 Hospital Encounter Radiology Adilene Link[address] ONCOLOGY [place], [place] [address] (Wo rk) 10/21/2022 Appointment Radiology Adilene Link[address] ONCOLOGY [place], [place] [address] [phone] (Wo rk) 10/21/2022 Appointment Radiology Adilene Link[address] ONCOLOGY [place], [place] [address] [phone] (Wo rk) 10/25/2022 Office Visit Hematology and Oncology Alberto Guy MD [facility] DR HEMATOLOGY/[place] [address] [address] Link[address] MEDICAL ONCOLOGY [place], [place] [address] 11/09/2022 Office Visit Urology Bobo Davis MD [facility] DR UROLOGY [place], [place] [address] (Wo rk) documented as of this encounter Visit Diagnoses Not on filedocumented in this encounter Care Teams Government Documents Librarian Relationship Specialty Start Date End Date Derek Torres PA PCP - General Internal Medicine 06/07/21 Mahnaz CARLSON [address] [place] [phone] documented as of this encounter
--- OUTSIDE RECORDS SUMMARY | 2022-10-07 18:38 | XMS_ITS | Encounter Summary ---
:1955 Author Organization [facility] [address] Care Team Providers Name Role Phone Derek Torres Primary Care Provider Encounter Details Date Type Department Care Team Description 11/10/2021 Notes Only [facility] [address] [phone] Social History Tobacco Use Types Packs/Day Years Used Date Former Smoker Cigarettes 0.25 0 Quit: 06/2020 Smokeless Tobacco: Never Used Alcohol Use Standard Drinks/Week Comments Not Currently 0 (1 standard drink = 0.6 oz pure alcoho l) Sex Assigned at Date Recorded Not on file documented as of this encounter Progress Notes Candace Gonzales RN - 11/10/2021 10:20 AM EST Patient called to ask about management of anticoagulation after her biopsy yesterday. States she held the Lovenox for surgery and has not restarted any anticoagulation Would like to know: When to restart? Can she go back on Eliquis, or does she need to continue the Lovenox? Candace Gonzales RN - 11/10/2021 10:20 AM EST Discussed with Nancy that she is not to do Lovenox. Discussed that she is to take Eliquis, 5MG PO starting this evening and then twice per day. Patient verbalized understanding. documented in this encounter Plan of Treatment Upcoming Encounters Date Type Specialty Care Team Description 10/21/2022 Appointment Hematology and Oncology 10/21/2022 Hospital Encounter Radiology Adilene Link[address] MEDICAL ONCOLOGY [place], [place] [address] [phone] (Wo rk) 10/21/2022 Appointment Radiology Adilene Link[address] [place] [place] [address] (Wo rk) 10/21/2022 Appointment Radiology Adilene Link[address] ONCOLOGY [place], [place] [address] [phone] (Wo rk) 10/25/2022 Office Visit Hematology and Oncology Alberto Guy MD [facility] DR HEMATOLOGY/[place] [address] [address] MEDICAL ONCOLOGY [place], [place] [address] 11/09/2022 Office Visit Urology Bobo Davis MD [facility] UROLOGY [place], [place] [address] (Wo rk) documented as of this encounter Visit Diagnoses Not on filedocumented in this encounter Care Teams Art Framing Manager Relationship Specialty Start Date End Date Derek Torres PA PCP - General Internal Medicine 06/07/21 Mahnaz CARLSON 1 [place], [place] [address] documented as of this encounter
--- OUTSIDE RECORDS SUMMARY | 2022-10-07 18:38 | XMS_ITS | Encounter Summary ---
:1955 Author Organization [facility] Address [facility] [place] [address] Care Team Providers Name Role Phone Derek Torres Primary Care Provider Encounter Details Date Type Department Care Team Description 02/23/2022 Telephone [facility] [address] [phone] Social History Tobacco Use Types Packs/Day Years Used Date Former Smoker Cigarettes 0.25 0 Quit: 06/2020 Smokeless Tobacco: Never Used Alcohol Use Standard Drinks/Week Comments Not Currently 0 (1 standard drink = 0.6 oz pure alcoho l) Sex Assigned at Date Recorded Not on file documented as of this encounter Miscellaneous Notes Telephone Encounter - Kathia Wynn - 02/23/2022 12:02 PM EDT Nancy called to let me know she was unable to complete her PET scheduled for 02/23 because her blood sugar was too low. I called RAD and rescheduled her at their next available on 03/11. I called Nancy and confirmed the appointment with her and let her know we would plan to review the scan at her [facility] on03/15. She was in agreement. documented in this encounter Plan of Treatment Upcoming Encounters Date Type Specialty Care Team Description 10/21/2022 Appointment Hematology and Oncology 10/21/2022 Hospital Encounter Radiology Adilene Link, REVENUE COLLECTOR[address] [address] (Wo rk) 10/21/2022 Appointment Radiology Adilene Link[address] [place] [address] (Wo rk) 10/21/2022 Appointment Radiology Adilene Link[address] [address] (Wo rk) 10/25/2022 Office Visit Hematology and Oncology Alberto Guy MD [facility] DR HEMATOLOGY/[place] [address] [address] Link[address] MEDICAL ONCOLOGY [place], [place] [address] 11/09/2022 Office Visit Urology Bobo Davis MD [facility] UROLOGY [place], [place] [address] (Wo rk) documented as of this encounter Visit Diagnoses Not on filedocumented in this encounter Care Teams Hand Reamer Relationship Specialty Start Date End Date Derek Torres PA PCP - General Internal Medicine 06/07/21 Mahnaz CARLSON 1 [place], [place] [address] documented as of this encounter
--- OUTSIDE RECORDS SUMMARY | 2022-10-07 18:38 | XMS_ITS | Encounter Summary ---
:1955 Author Organization [facility] [place] [address] Care Team Providers Name Role Phone Derek Torres Primary Care Provider Reason for Referral Consultation (Routine) - Closed Specialty Diagnoses / Procedures Referred By Contact Refer red To Contact Diagnoses Metastatic urothelial carcinoma Adilene Link APRN [address] [place] [address] MEDICAL ONCOLOGY [place], [place] [address] Referral ID Status Reason Start Date Expiration Date Visits V isits Requested Authorized [id number] Closed Consult, 11/04/2021 05/03/2022 1 1 Test & Treat Encounter Details Date Type Department Care Team Description 11/04/2021 Orders Only Hematology/Oncology Adilene Link, [place] static urothelial at [facility] COMPUTER HARDWARE TECHNICIAN carcinoma [address] [place] [address] [place] [address] [place], [place] [phone] (Wo rk) Social History Tobacco Use Types [...] Hematology and Oncology 10/21/2022 Hospital Encounter Radiology Nikolay, Adilene L[address] MEDICAL ONCOLOGY [place], [place] [address] (Wo rk) 10/21/2022 Appointment Radiology Verito Linkrobyn Mock[address] [place] [address] (Wo rk) 10/21/2022 Appointment Radiology Nikolay Adilene L[address] [address] (Wo rk) 10/25/2022 Office Visit Hematology and Oncology Alberto Guy MD [facility] DR HEMATOLOGY/[place] [address] Nikolay Adilene [address] MEDICAL ONCOLOGY [place], [place] [phone] 11/09/2022 Office Visit Urology Bobo Davis MD [facility] UROLOGY [place], [place] [address] (Wo rk) Scheduled Referrals Name Type Priority Associated Order Schedule Diagnoses Referral to Outpatient Referral Routine Metastatic Ordered: Palliative Care urothelial 11/04/2021 carcinoma documented as of this encounter Visit Diagnoses Diagnosis Metastatic urothelial carcinoma 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
--- OUTSIDE RECORDS SUMMARY | 2022-10-07 18:38 | XMS_ITS | Encounter Summary ---
:1955 Author Organization [place] [place] [address] Care Team Providers Name Role Phone Derek Torres Primary Care Provider Encounter Details Date Type Department Care Team Description 12/07/2021 Refill Hematology/Oncology at Rosemarie Link APRN Metastatic urothelial [address] [place] [phone] (Wo rk) Social History Tobacco Use Types [...] 10/21/2022 Hospital Encounter Radiology Adilene Link APRN [address] [place] [address] MEDICAL ONCOLOGY [place], [place] [phone] (Wo rk) 10/21/2022 Appointment Radiology Adilene Link [address] MEDICAL ONCOLOGY [place], [place] [phone] (Wo rk) 10/21/2022 Appointment Radiology Adilene Link [address] MEDICAL ONCOLOGY [place], [place] [phone] (Wo rk) 10/25/2022 Office Visit Hematology and Oncology Alberto Guy MD [facility] DR HEMATOLOGY/[place] [address] [address] MEDICAL ONCOLOGY [place], [place] [phone] 11/09/2022 Office Visit Urology Bobo Davis MD 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
--- OUTSIDE RECORDS SUMMARY | 2022-10-07 18:38 | XMS_ITS | Encounter Summary ---
:1955 [place] [address] Care Team Providers Name Role Phone Derek Torres Primary Care Provider Encounter Details Date Type Department Care Team Description 10/29/2021 Refill Hematology/Oncology at Alberto Bhatia, Metastatic urothelial carcinoma; [facility] Chronic deep vein thrombosis of right po pliteal vein [address] [place] [phone] HEMATOLOGY/ONCOLOGY [phone] [place], [place] [address] (Wo rk) Social History Tobacco [...] Oncology 10/21/2022 Hospital Encounter Radiology Adilene Link [address] MEDICAL ONCOLOGY [place], [place] [phone] (Wo rk) 10/21/2022 Appointment Radiology Adilene Link [address] MEDICAL ONCOLOGY [place], [place] [phone] (Kwadwo rk) 10/21/2022 Appointment Radiology Adilene Link [address] MEDICAL ONCOLOGY [place], [place] [address] (Wo rk) 10/25/2022 Office Visit Hematology and Oncology Alberot Guy MD [facility] DR HEMATOLOGY/[place] [address] Adilene Link, [address] MEDICAL ONCOLOGY [place], [place] [address] 11/09/2022 Office Visit Urology Bobo Davis MD [facility] UROLOGY [place], [place] [address] (Wo rk) documented as of this encounter Visit Diagnoses Diagnosis Metastatic urothelial carcinoma 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
--- OUTSIDE RECORDS SUMMARY | 2022-10-07 18:38 | XMS_ITS | Encounter Summary ---
:1955 Author Organization [facility] [place] [address] Care Team Providers Name Role Phone Derek Torres Primary Care Provider Reason for Referral Diagnostic Test (Routine) - Closed Specialty Diagnoses / Procedures Referred By Contact Refer red To Contact Radiology Diagnoses Metastatic urothelial carcinoma Alberto Bhatia MD [facility] Rad Nuclear Med Procedures NM PET CT Skull Base to Mid-thigh [facility] HEMATOLOGY/[place] [address] [place] [address] Referral ID Status Reason Start Date Expiration Date Visits V isits Requested Authorized [id number] Closed Specialty 02/07/2022 08/10/2023 1 1 Service Requested Reason for Visit Diagnostic Test (Routine) - Closed Specialty Diagnoses / Procedures Referred By Contact Refer red To Contact Radiology Diagnoses Metastatic urothelial carcinoma Alberto Bhatia MD [facility] Rad Nuclear Med Procedures NM PET CT Skull Base to Mid-thigh [facility] HEMATOLOGY/[place] [address] [place] [address] Referral ID Status Reason Start Date Expiration Date Visits V isits Requested Authorized [id number] Closed Specialty 02/07/2022 08/10/2023 1 1 Service Requested Encounter Details Date Type Department Care Team Description 02/23/2022 Hospital Encounter Nuclear Medicine at [facility] Ebony Dominguez MD urothelial carcinoma On license of [facility] SHIVANI Powers HEMATOLOGY/ONCOL [address] OGY [phone] [place] [address] Social History Tobacco Use Types Packs/Day Years [...] TAKE ONE TABLET BY 0 06/2803/15/2022 hen ([place]) 5-325 mg MOUTH THREE TIMES A Tablet [...] and Oncology 10/21/2022 Hospital Encounter Radiology Adilene Likn[address] MEDICAL ONCOLOGY [place], [place] [address] (Wo rk) 10/21/2022 Appointment Radiology Adilene Link[address] ONCOLOGY [place], [place] [address] (Wo rk) 10/21/2022 Appointment Radiology Adilene Link[address] ONCOLOGY [place], [place] [phone] (Wo rk) 10/25/2022 Office Visit Hematology and Oncology Alberto Guy MD [facility] DR HEMATOLOGY/[place] [address] [address] MEDICAL ONCOLOGY [place], [place] [phone] 11/09/2022 Office Visit Urology Bobo Davis MD [facility] DR UROLOGY [place], [place] [address] (Wo rk) documented as of [...] who have questions please contact the health summer child caregiver that requested your imaging first. ? Narrative 03/11/2022 3:11 PM EDT EXAMINATION: NM PET CT STANDARD SKULL BASE TO MID-THIGH CLINICAL HISTORY: Urologic cancer, asses s treatment response - Include more detail below Restaging of metastatic urothelial carci noma TECHNIQUE: Following IV injection of 18- ddbmcp-9-mykxizdftmbx (FDG) a standard uptake of approximately 60 [...] effusion. The effusion has slightly increased since prior examination. ABDOMEN/PELVIS: Note is again made [...] noma TECHNIQUE: Following IV injection of 18- lqmlya-2-kauhgprbhjwc (FDG) a standard uptake of approximately 60 [...] effusion. The effusion has slightly increased since prior examination. ABDOMEN/PELVIS: Note is again made [...] ho have questions please contact the health summer child caregiver that requested your imaging first. 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
--- OUTSIDE RECORDS SUMMARY | 2022-10-07 18:38 | XMS_ITS | Encounter Summary ---
:1955 Author Organization [facility] [place] [address] Care Team Providers Name Role Phone Derek Torres Primary Care Provider Encounter Details Date Type Department Care Team Description 11/25/2021 [facility] [address] [phone] Social History Tobacco Use [...] Oncology 10/21/2022 Hospital Encounter Radiology Adilene Link[address] [place] [address] (Kwadwo morataya) 10/21/2022 Appointment Radiology Adilene Link[address] MEDICAL ONCOLOGY [place], [place] [phone] (Kwadwo morataya) 10/21/2022 Appointment Radiology Adilene Link[address] MEDICAL ONCOLOGY [place], [place] [phone] (Kwadwo morataya) 10/25/2022 Office Visit Hematology and Oncology Alberto Guy MD [facility] HEMATOLOGY/[place] [address] Adilene Link, SOFTWARE LICENSING SPECIALIST[address] MEDICAL ONCOLOGY [place], [place] [address] 11/09/2022 Office Visit Urology Bobo Davis MD [facility] UROLOGY [place], [place] [address] (Wo rk) documented as of this encounter Visit Diagnoses Not on filedocumented in this encounter Care Teams Radiology Clerk Relationship Specialty Start Date End Date Derek Torres PA PCP - General Internal Medicine 06/07/21 [address] [place], [place] [address] documented as of this encounter
--- OUTSIDE RECORDS SUMMARY | 2022-10-07 18:38 | XMS_ITS | Encounter Summary ---
:1955 [place] [address] Care Team Providers Name Role Phone Derek Torres Primary Care Provider Encounter Details Date Type Department Care Team Description 10/29/2021 Telephone Radiology at [facility] Tremaine Zhang MD [facility] [place] [phone] RADIOLOGY DEPT [phone] [place], [place] [address] (Wo rk) Social History Tobacco Use Types Packs/Day Years Used Date Former Smoker Cigarettes 0.25 0 Quit: 06/2020 Smokeless Tobacco: Never Used Alcohol Use Standard Drinks/Week Comments Not Currently 0 (1 standard drink = 0.6 oz pure alcoho l) Sex Assigned at Date Recorded Not on file documented as of this encounter Progress Notes Tremaine Zhang MD - 10/29/2021 1:47 PM EST RADIOLOGY PRE-PROCEDURE NOTE: Referring Physician: No ref. provider found PCP: DELORES Zaman Procedure Indication: ?bone metastasis Presenting Diagnosis/ Complaint: Nnacy Pichardo is a 66 y.o. female with history of urothelial carcinoma status post nephrectomy with imaging findings concerning for new bone metastasis at L5/S1. Medications: Current Outpatient Medications Medication Instructions ??? acetaminophen (TYLENOL) 975 mg, Oral, EVERY 6 HOURS PRN ??? blood sugar diagnostic strips Strip 1 strip, NOT APPLICABLE, 3 TIMES DAILY ??? cholecalciferol (Vitamin D3) (VITAMIN D3) 1,000 Units, Oral, DAILY ??? docusate sodium (COLACE) 100 mg, Oral, 2 TIMES DAILY ??? furosemide (LASIX) 20 mg, Oral, 2 TIMES DAILY ??? humaLOG KwikPen 100 unit/mL Insulin Pen INJECT SUBCUTANEOUSLY PER SLIDING SCALE THREE TIMES A DAY BEFORE MEALS 101TO 150 2 UNITS 151 TO 200 4 UNITS 201 TO 250 6 UNITS 251 TO 3 ??? HYDROcodone-acetaminophen ([place]) 5-325 mg Tablet TAKE ONE TABLET BY MOUTH THREE TIMES A DAY NEEDED FOR PAIN ??? Insulin Tresiba FlexTouch U-100 52 Units, Subcutaneous, DAILY ??? losartan (COZAAR) 50 mg, DAILY ??? metoprolol tartrate (LOPRESSOR) 12.5 mg, Oral, 2 TIMES DAILY ??? Jeanne Pen Needle 32 gauge x 5/32 Needle No dose, route, or frequency recorded. ??? nystatin (MYCOSTATIN) Powder APPLY 1 GRAM TOPICALLY TWO TIMES A DAY NEEDED FOR 30 DAYS ??? nystatin-triamcinolone (MYCOLOG II) Cream Topical, 2 TIMES DAILY ??? polyethylene glycoL (MIRALAX) 17 g, Oral, DAILY PRN ??? senna (SENOKOT) 17.2 mg, Oral, 2 TIMES DAILY ??? sodium phosphates (FLEET) Enema 1 enema, Rectal, ONCE PRN ??? vit B complex no.12/niacin,B3, (VITAMIN B COMPLEX NO.12-NIACIN ORAL) 1 tablet, Oral, DAILY ??? Vitamin B-6 25 mg Tablet TAKE FOUR TABLETS BY MOUTH EVERY DAY Allergies: Gabapentin, Atorvastatin calcium, Simvastatin, Loratadine, Sulfa (sulfonamide antibiotics), and Tegaderm [transparent dressings] Physical Exam: Pending Labs: Lab Results Component Value Date WBC 12.8 (H) 06/22/2021 HCT 24.3 (L) 06/22/2021 PLATELET 238 06/22/2021 BUN 36 (H) 06/24/2021 CREATININE 1.65 (H) 06/24/2021 ALKPHOS 114 (H) 06/02/2021 AST 15 06/02/2021 ALBUMIN 4.1 06/02/2021 BILITOT 0.2 06/02/2021 ALT 20 06/02/2021 PROT 7.8 06/02/2021 ESTGFR 32 (L) 06/24/2021 Assessment: The neuroradiology service received a phone call from the [facility] urology office regarding Nancy Pichardo starting Eliquis twice daily due to new acute DVT. Regarding her November 09 spinal biopsy appointment I conveyed that per our anticoagulation guidelines she would need to hold her Eliquis for 6 doses due to her GFR being less than 50. This was also updated in her procedure protocol and communicated tothe provider team. Her last dose of Eliquis should be on the evening of November 05, and sheshould reinitiate her Eliquis dose the evening of November 10. We will proceed with the procedure as planned below: Planned procedure: CT core biopsy L5 or S1 lesion Labs to be performed day of procedure: PLT; Coags Sedation: Moderate (Conscious sedation) Prophylactic antibiotic : None Contrast: No contrast Additional medications for procedure: Lidocaine Position: Prone Consent: Pending Medications to discontinue (and days held): Eliquis (3 days) (6 doses (GFR<50)) This was discussed with Dr. Steen. Tremaine Zhang MD Interventional & Diagnostic Radiology Pager [phone] 10/29/2021 documented in this encounter Plan of Treatment Upcoming Encounters Date Type Specialty Care Team Description 10/21/2022 Appointment Hematology and Oncology 10/21/2022 Hospital Encounter Radiology Adilene Link[address] MEDICAL ONCOLOGY [place], [place] [phone] (Kwadwo morataya) 10/21/2022 Appointment Radiology Adilene Link[address] MEDICAL ONCOLOGY [place], [place] [phone] (Kwadwo morataya) 10/21/2022 Appointment Radiology Adilene Link[address] MEDICAL ONCOLOGY [place], [place] [phone] (Kwadwo morataya) 10/25/2022 Office Visit Hematology and Oncology Alberto Guy MD [facility] DR HEMATOLOGY/[place] [address] Adilene Link APRN [address] [place] [address] DR MEDICAL ONCOLOGY [place], [place] [phone] 11/09/2022 Office Visit Urology Bobo Davis MD [facility] UROLOGY [place], [place] [address] (Wo rk) documented as of this encounter Visit Diagnoses Not on filedocumented in this encounter Care Teams Sales Order Clerk Relationship Specialty Start Date End Date Derek Torres PA PCP - General Internal Medicine 06/07/21 [address] [place], [place] [address] documented as of this encounter
--- OUTSIDE RECORDS SUMMARY | 2022-10-07 18:38 | XMS_ITS | Encounter Summary ---
:1955 Author Organization [facility] [place] [address] Care Team Providers Name Role Phone Derek Torres Primary Care Provider Encounter Details Date Type Department Care Team Description 01/06/2022 [facility] [address] [phone] Social History Tobacco Use [...] Oncology 10/21/2022 Hospital Encounter Radiology Adilene Link[address] [place] [address] (Kwadwo morataya) 10/21/2022 Appointment Radiology Adilene Link[address] MEDICAL ONCOLOGY [place], [place] [phone] (Kwadwo morataya) 10/21/2022 Appointment Radiology Adilene Link[address] MEDICAL ONCOLOGY [place], [place] [phone] (Kwadwo morataya) 10/25/2022 Office Visit Hematology and Oncology Alberto Guy MD [facility] HEMATOLOGY/[place] [address] Adilene Link, COOK CHILI[address] MEDICAL ONCOLOGY [place], [place] [address] 11/09/2022 Office Visit Urology Bobo Davis MD [facility] UROLOGY [place], [place] [address] (Wo rk) documented as of this encounter Visit Diagnoses Not on filedocumented in this encounter Care Teams Pecan Grower Relationship Specialty Start Date End Date Derek Torres PA PCP - General Internal Medicine 06/07/21 [address] [place], [place] [address] documented as of this encounter
--- OUTSIDE RECORDS SUMMARY | 2022-10-07 18:39 | XMS_ITS | Encounter Summary ---
:1955 [place] [address] Care Team Providers Name Role Phone Derek Torres Primary Care Provider Encounter Details Date Type Department Care Team Description 07/27/2021 Telephone Hematology/Oncology at [facility] Alberto mcmanus MD [address] HEMATOLOGY/ONCOLOGY [place], [place] [phone] [place] [address] (Wo rk) Social History Tobacco [...] Hospital Encounter Radiology Adilene Link APRN [address] [place] [address] DR [place] [address] (Wo rk) 10/21/2022 Appointment Radiology Adilene Link APR[address] [place] [address] (Wo rk) 10/21/2022 Appointment Radiology Adilene Link [address] [place] [address] (Wo rk) 10/25/2022 Office Visit Hematology and Oncology Alberto Guy MD [facility] DR HEMATOLOGY/[place] [address] [address] MEDICAL ONCOLOGY [place], [place] [phone] 11/09/2022 Office Visit Urology Bobo Davis MD [facility] UROLOGY [place], [place] [address] (Wo rk) documented as of this encounter Visit Diagnoses Diagnosis Metastatic urothelial carcinoma 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 documented in this encounter Care Teams Teaching Young Relationship Specialty Start Date End Date Derek Torres PA PCP - General Internal Medicine 06/07/21 Mahnaz [address]LSON [address] [place], [place] [phone] documented as of this encounter
--- OUTSIDE RECORDS SUMMARY | 2022-10-07 18:39 | XMS_ITS | Encounter Summary ---
:1955 Author Organization [facility] Address [facility] [place] [address] Care Team Providers Name Role Phone Derek Torres Primary Care Provider Reason for Visit Reason Onset Date Comments Other 10/28/2021 follow up on ER visi t Encounter Details Date Type Department Care Team Description 10/28/2021 Notes Only Hematology/Oncology at Barb Dennis RN Other (follow up on ER [facility] visit) [address] [place] [phone] Social History Tobacco Use Types Packs/Day Years Used Date Former Smoker Cigarettes 0.25 0 Quit: 06/2020 Smokeless Tobacco: Never Used Alcohol Use Standard Drinks/Week Comments Not Currently 0 (1 standard drink = 0.6 oz pure alcoho l) Sex Assigned at Date Recorded Not on file documented as of this encounter Progress Notes Barb Dennis RN - 10/28/2021 8:58 AM EST Pt in house at [facility] for positive DVT in right lower leg. Started on lovenox, switched to IV heparin due to pt complaints. Pt with weakness in legs MRI being done today. Providers updated via note. documented in this encounter Plan of Treatment Upcoming Encounters Date Type Specialty Care Team Description 10/21/2022 Appointment Hematology and Oncology 10/21/2022 Hospital Encounter Radiology Adilene Link, REMOTE SENSING SPECIALIST [address] [place] [address] [place] [address] (Wo rk) 10/21/2022 Appointment Radiology Adilene Link[address] MEDICAL ONCOLOGY [place], [place] [phone] (Wo rk) 10/21/2022 Appointment Radiology Adilene Link[address] ONCOLOGY [facility], [place] [phone] (Wo rk) 10/25/2022 Office Visit Hematology and Oncology Alberto Guy MD [facility] HEMATOLOGY/[place] [address] MEDICAL ONCOLOGY [place], [place] [phone] 11/09/2022 Office Visit Urology Bobo Davis MD [facility] DR UROLOGY [place], [place] [address] (Wo rk) documented as of this encounter Visit Diagnoses Not on filedocumented in this encounter Care Teams Autographer Relationship Specialty Start Date End Date Derek Torres PA PCP - General Internal Medicine 06/07/21 Mahnaz [address] [place], [place] [phone] documented as of this encounter
--- OUTSIDE RECORDS SUMMARY | 2022-10-07 18:39 | XMS_ITS | Encounter Summary ---
:1955 Author Organization [facility] [place] [address] Care Team Providers Name Role Phone Derek Torres Primary Care Provider Reason for Visit Reason Onset Date Comments Joint Pain 09/29/2021 Myalgia/myositis 09/29/2021 Encounter Details Date Type Department Care Team Description 09/29/2021 Telephone Hematology/Oncology at [facility], Joint Pain; [facility] Uriel Miller RN Myalgia/myositis [address] [place] [phone] Social History Tobacco Use Types Packs/Day Years Used Date Former Smoker Cigarettes 0.25 0 Quit: 06/2020 Smokeless Tobacco: Never Used Alcohol Use Standard Drinks/Week Comments Not Currently 0 (1 standard drink = 0.6 oz pure alcoho l) Sex Assigned at Date Recorded Not on file documented as of this encounter Miscellaneous Notes Telephone Encounter - Uriel Oliva RN - 09/29/2021 10:38 AM EDT Caller: Nancy Pichardo Relationship: Self Clarified Two Patient Identifiers: [x] Reason For Call: Joint Pain and Myalgia/myositis Assessment/Symptom Review (onset, location, duration, what makes it better or worse, pertinent positives and negatives): Pt receives Nivolumab for metastatic urothelial carcinoma, last given on 09/21/21. She reports with each treatment she experiences arthralgia/myalgia and fatigue symptoms. She reports her arthritis pain is worsened after treatment and she feels inflammation in her back and legs. She is using x1 tab [place] at [facility] only which helps her back pain so she can sleep. She does not use any Ibuprofen medications due to her CKD. She is using ice and warmth with some effect. She can ambulate, but the pain does affect her mobility, she is not as active. She also expressed concern for her lab counts, stating sheneeded a blood transfusion last time she felt this fatigued. We discussed that Nivolumab adverse reaction incidence is ~20% for arthralgias and 21-46% for anemia, (per UpToDate) which can account for both her pain and fatigue. She says her discomfort is stable, she recognizes she gets these side effects after getting treated, it is just lasting longer this cycle. She would like her lab counts checked. She denies any fevers or any other concerns. Review of Systems Related to Reason for Call: System POS NEG Not Applicable Head (ENT /Neuro) [] [x] [] Cardiac [] [x] [] Respiratory [] [x] [] GI [] [x] [] [] [x] [] Musculoskeletal [x] [] [] Integumentary [] [x] [] Mental Health [] [x] [] Select Specific Decision Support Tool Used: Telephone Triage for Oncology Nurses, 3rd Edition, ONC, [employer], 2019 Name of Guideline/Protocol Used: [id number] Disposition/Plan of Care: Defer to provider recommendation- will send to provider for review. Pt is set up for lab check today at 1645, will look for results tomorrow. She is aware to call in the interim with any worsening pain or other symptoms or concerns. Patient/Caregiver verbalizes understanding of plan of care: Yes Patient/Caregiver agrees with plan: Yes Advised patient/caregiver to: call office back for any new or worsening symptoms Patient/Caregiver demonstrates understanding via teach back: Yes documented in this encounter Plan of Treatment Upcoming Encounters Date Type Specialty Care Team Description 10/21/2022 Appointment Hematology and Oncology 10/21/2022 Hospital Encounter Radiology Adilene Link, LINE TENDER FLAKEBOARD [address] [place] [address] [place] [address] (Wo rk) 10/21/2022 Appointment Radiology Adilene Link, [address] ONCOLOGY [place], [place] [phone] (Wo rk) 10/21/2022 Appointment Radiology Adilene Link, [address] ONCOLOGY [facility], [place] [phone] (Wo rk) 10/25/2022 Office Visit Hematology and Oncology Alberto Guy MD [facility] HEMATOLOGY/[place] [address] MEDICAL ONCOLOGY [place], [place] [phone] 11/09/2022 Office Visit Urology Bobo Davis MD [facility] DR UROLOGY [place], [place] [address] (Wo rk) documented as of this encounter Visit Diagnoses Not on filedocumented in this encounter Care Teams English Adjunct Faculty Relationship Specialty Start Date End Date Derek Torres PA PCP - General Internal Medicine 06/07/21 Mahnaz CARLSON [address] [place] [phone] documented as of this encounter
--- OUTSIDE RECORDS SUMMARY | 2022-10-07 18:39 | XMS_ITS | Encounter Summary ---
:1955 [place] [address] Care Team Providers Name Role Phone Derek Torres Primary Care Provider Encounter Details Date Type Department Care Team Description 10/27/2021 Telephone Hematology and Oncology at Thu Hernandez [facility] [place] [phone] HEMATOLOGY/ONCOLOGY [phone] [place], [place] [address] (Wo rk) Social History Tobacco Use Types Packs/Day Years Used Date Former Smoker Cigarettes 0.25 0 Quit: 06/2020 Smokeless Tobacco: Never Used Alcohol Use Standard Drinks/Week Comments Not Currently 0 (1 standard drink = 0.6 oz pure alcoho l) Sex Assigned at Date Recorded Not on file documented as of this encounter Miscellaneous Notes Telephone Encounter - Thu Hernandez MD - 10/27/2021 4:38 PM EST Reason for call: Question about anticoagulation and lower back pain Hospital: [facility] Ms. Cruz is a 66 years old female with diagnosis of metastatic urothelial cancer on nivolumab 480 mg for total of 12 cycles. She consulted to [facility] due to 3 days of right lower extremity swelling and was found to have an acute DVT involving the right poplitea vein. She does have a history of superficial thrombophlebitis in the cephalic vein back in 02/2021. At that time, she was on therapeutic dose ofLovenox per vascular recs and was d/c anticoagulation later on. Additionally, she is presenting with lower back pain in the setting of L5 lesion suspicious for metastatic disease. She also endorses weakness, but not motor/sensorial deficit or urinary incontinence. Neuro exam is unremarkable. She does not exhibit deficit or saddle anesthesia. Per CT scan, there arenew sclerotic lesions. She is currently being treated with oxycodone. Recommendations: #Acute DVT Malignancy itself represents a risk factor to develop a DVT. Thus, I have recommended to start therapeutic dose of Lovenox SQ, with a plan to transition to DOAC (Eliquis 5 mg BID). The duration of treatment should be discussed with oncologist, although she may need indefinitely given her high risk of t hrombosis. #New sclerotic lesions in lumbar spine According with Dr. Kwong's notes, she is symptomatic with back pain which is out of proportion of L5 lesion. A MRI was planned. Currently, she does not exhibit a neuro exam suggestive spinal cord compression, however she is weak and her pain has worse. I recommended to obtain the MRI during this admission. I will c.c. this note to her primary oncologist to get further guidelines. ED attending agreed and plan is to obtain a MRI tomorrow morning, in the meantime, she will be on neuro checks and pain control. Thu Moreira M.D. Hematology and Oncology Fellow [facility] Pager # [phone] 10/27/21, 4:39 PM This is not an official consult, as my recommendations are limited by my inability to interview and examine the patient as well as personally review the medical record, imaging, and laboratory findings. documented in this encounter Plan of Treatment Upcoming Encounters Date Type Specialty Care Team Description 10/21/2022 Appointment Hematology and Oncology 10/21/2022 Hospital Encounter Radiology Adilene Link, [address] [place] [address] (Kwadwo morataya) 10/21/2022 Appointment Radiology Adilene Link [address] [place] [address] (Wo rk) 10/21/2022 Appointment Radiology Adilene Link[address] MEDICAL ONCOLOGY [place], [place] [phone] (Wo rk) 10/25/2022 Office Visit Hematology and Oncology Alberto Guy MD [facility] DR HEMATOLOGY/[place] [address] [address] MEDICAL ONCOLOGY [place], [place] [phone] 11/09/2022 Office Visit Urology Bobo Davis MD [facility] DR UROLOGY [place], [place] [address] (Wo rk) documented as of this encounter Visit Diagnoses Not on filedocumented in this encounter Care Teams Real Estate Recruiter Relationship Specialty Start Date End Date Derek Torres PA PCP - General Internal Medicine 06/07/21 Mahnaz [address]LSON [address] [place], [place] [phone] documented as of this encounter
--- OUTSIDE RECORDS SUMMARY | 2022-10-07 18:39 | XMS_ITS | Encounter Summary ---
:1955 Author Organization [facility] [place] [address] Care Team Providers Name Role Phone Derek Torres Primary Care Provider Reason for Visit Diagnostic Test (Routine) - Closed Specialty Diagnoses / Procedures Referred By Contact Refer red To Contact Radiology Diagnoses Metastatic urothelial carcinoma Alberto Bhatia MD [facility] Rad Nuclear Med Procedures NM PET CT Skull Base to Mid-thigh [facility] HEMATOLOGY/[place] [address] [place] [address] Referral ID Status Reason Start Date Expiration Date Visits V isits Requested Authorized [id number] Closed Specialty 09/30/2021 10/29/2021 1 1 Service Requested Encounter Details Date Type Department Care Team Description 10/15/2021 Hospital Encounter Nuclear Medicine at Mike Bhatia Mary Hitchcock MD [facility] [place] [address] HEMATOLOGY/ONCOLOGY [phone] [place], [place] [address] (Wo rk) Social History Tobacco [...] unit/mL (3 mL) Insulin Pen cephALEXin (Keflex) TAKE ONE CAPSULE BY 0 021 10/19/2021 500 mg Capsule MOUTH EVERY 12 HOURS FOR 7 DAYS senna (Senokot) 8.6 mg Take 2 tablets by 120 tablet 11 202011/23/2021 TabletIndications: mouth 2 times daily. Metastatic urothelial carcinoma HYDROcodone-acetaminop TAKE ONE TABLET BY 0 06/2803/15/2022 hen ([place]) 5-325 mg MOUTH THREE TIMES A Tablet [...] Cream daily. documented as of this encounter Plan of Treatment Upcoming Encounters Date Type Specialty Care Team Description 10/21/2022 Appointment Hematology and Oncology 10/21/2022 Hospital Encounter Radiology Adilene Link[address] MEDICAL ONCOLOGY [place], [place] [phone] (Wo rk) 10/21/2022 Appointment Radiology Adilene Link[address] MEDICAL ONCOLOGY [place], [place] [address] (Wo rk) 10/21/2022 Appointment Radiology Adilene Link[address] ONCOLOGY [place], [place] [phone] (Wo rk) 10/25/2022 Office Visit Hematology and Oncology Alberto Guy MD [facility] DR HEMATOLOGY/[place] [address] [address] MEDICAL ONCOLOGY [place], [place] [phone] 11/09/2022 Office Visit Urology Bobo Davis MD [facility] DR UROLOGY [place], [place] [address] (Wo rk) documented as of this encounter Procedures Procedure Name Priority Date/Time Associated Diagnosis Comme nts NM PET CT SKULL Routine 10/15/2021 10:23 AM Metastatic Resul ts for this BASE TO MID-THIGH EST urothelial carcinoma pr ocedure are in ([facility]) the results section. POCT GLUCOSE Routine 10/15/2021 9:07 AM Results f or this EST procedure are i n the results section. documented in this encounter Results POCT Glucose (10/15/2021 9:07 AM EST) P athologist Signature POC Glucose 95 65 - 199 [facility] mg/dL [facility] Comment: Supplemental ranges: <140 mg/dL before meals <180 mg/dL all other times of the day Specimen Anatomical Collection Method Collection Time Receive d Time (Source) Location / / Volume Laterality Blood 10/15/2021 9:07 AM 9:07 EST AM EST Alberto Bhatia MD POINT OF CARE TEST ORDERABLE S Performing Organization Address City/State/[place] [address] documented in this encounter Visit Diagnoses Not on filedocumented in this encounter Care Teams Box Shook Patcher Relationship Specialty Start Date End Date Derek Torres PA PCP - General Internal Medicine 06/07/21 [address] [place] [address] documented as of this encounter
--- OUTSIDE RECORDS SUMMARY | 2022-10-07 18:39 | XMS_ITS | Encounter Summary ---
:1955 [place] [address] Care Team Providers Name Role Phone Derek Torres Primary Care Provider Reason for Visit Reason Comments Chemotherapy Cycle 1 Day 1 Treatment/Therapy Plan Authorization (Routine) - Specialty Diagnoses / Procedures Referred By Contact Refer red To Contact Diagnoses Urothelial carcinoma of kidney, right Malignant neoplasm of urinary bladder, unspecified site Neutropenia, drug-induced Metastatic urothelial carcinoma High risk medication use Alberto Bhatia MD [facility] Hem Onc Office Procedures OPDIVO [address] HEMATOLOGY/[place] [phone] Fax: Referral ID Status Reason Start Date Expiration Date Visits V isits Requested Authorized [id number] 10/19/2021 02/02/2022 8 8 Encounter Details Date Type Department Care Team Description 07/27/2021 Infusion Hematology Oncology at [facility] tastatic urothelial carcinoma; [facility] High risk medication use; [address] [place] [address] Neutropenia, drug-induced; [place], [place] [phone] Urothelial carcinoma of kidn ey, right; [phone] Malignant neopl asm of urinary bladder, unspecified [...] Reading Time Taken Comments Blood Pressure 130/56 07/27/2021 11:47 AM EDT Pulse 89 07/27/2021 11:47 AM EDT Temperature 36.2 ??C (97.2 ??F) 07/27/2021 11:47 AM EDT Respiratory Rate 16 07/27/2021 11:47 AM EDT Oxygen Saturation 98% 07/27/2021 11:47 AM EDT Inhaled Oxygen Concentration - - Weight 95.7 kg (211 lb) 07/27/2021 11:47 AM EDT Height 161.3 cm (5' 3.5) 07/27/2021 11:47 AM EDT Body Mass Index 36.79 07/27/2021 11:47 AM EDT documented in this encounter Progress Notes Leslye Busby RN - 07/27/2021 12:00 PM EDT INFUSION THERAPY ADMINISTRATION NOTES DIAGNOSIS: Urothelial cancer CYCLE #, Day REASON FOR VISIT: IMMUNOTHERAPY SUBJECTIVE Nancy offers no complaints. OBJECTIVE LAB DATA: WNL from today; Seen by prior to visit & cleared for treatment. IV ACCESS: PIV Pre administration: Chemotherapy orders independently verified for drug name, route, and dosage per patient's height, weight and BSA by LESLYE BSUBY RN & On-site pharmacist. REACTIONS (DESCRIPTION, TIME, INTERVENTION AND EFFECTIVENESS) none ASSESSMENT Nancy Pichardo tolerated her infusion well.. PLAN Return to Clinic as scheduled Return to clinic as scheduled. documented in this encounter Plan of Treatment Upcoming Encounters Date Type Specialty Care Team Description 10/21/2022 Appointment Hematology and Oncology 10/21/2022 Hospital Encounter Radiology Adilene Link, [address] MEDICAL ONCOLOGY [place], [place] [phone] (Kwadwo morataya) 10/21/2022 Appointment Radiology Adilene Link, [address] MEDICAL ONCOLOGY [place], [place] [phone] (Kwadwo morataya) 10/21/2022 Appointment Radiology Adilene Link, [address] MEDICAL ONCOLOGY [place], [place] [phone] (Wo rk) 10/25/2022 Office Visit Hematology and Oncology Alberto Guy MD [facility] HEMATOLOGY/[place] [address] [address] [place] [address] 11/09/2022 Office Visit Urology Bobo Davis MD [facility] UROLOGY [place], [place] [address] (Wo rk) documented as of [...] MAR Action Action Date Dose Rate Site nivolumab (Opdivo) 480 mg in New Bag 07/27/2021 12:51 PM EDT 480 m g 296 mL/hr sodium chloride 0.9% 148 mL infusion 480 mg, Intravenous, ONCE, 1 dose, On Mon07/27/21 at 1345, Administer over 30 Minutes, Flush line with NS after each dose, This agent is restricted to outpatient use. Is this drug being given as an outpatient? Yes sodium chloride 0.9% infusion New Bag 07/27/2021 12:52 PM EDT 100 mL/hr 100 mL/hr 100 mL/hr, Intravenous, CONTINUOUS, Starting on Mon07/27/21 at 1245, Until Mon07/27/21 at 1753 documented in this encounter Care Teams Truck Trailer Mechanic Relationship Specialty Start Date End Date Derek Torres PA PCP - General Internal Medicine 06/07/21 [address] [place], [place] [address] documented as of this encounter
--- OUTSIDE RECORDS SUMMARY | 2022-10-07 18:39 | XMS_ITS | Encounter Summary ---
:1955 Author Organization [facility] [place] [address] Care Team Providers Name Role Phone Derek Torres Primary Care Provider Reason for Visit Reason Onset Date Comments Foot Swelling 10/27/2021 Encounter Details Date Type Department Care Team Description 10/27/2021 [facility] RN [address] [place] [phone] Social History Tobacco Use Types Packs/Day Years Used Date Former Smoker Cigarettes 0.25 0 Quit: 06/2020 Smokeless Tobacco: Never Used Alcohol Use Standard Drinks/Week Comments Not Currently 0 (1 standard drink = 0.6 oz pure alcoho l) Sex Assigned at Date Recorded Not on file documented as of this encounter Miscellaneous Notes Telephone Encounter - Uriel Oliva, RN - 10/27/2021 2:30 PM EST Caller: Nancy Pichardo Relationship: Self Clarified Two Patient Identifiers: [x] Reason For Call: Foot Swelling Assessment/Symptom Review (onset, location, duration, what makes it better or worse, pertinent positives and negatives): Pt started with right foot swelling today, said it was painful in back of calf and very swollen on the one side. She is being treated for her mets urothelial cancer with Nivolumab and reports she is not on any blood thinners currently. We discussed concern for clot and need for evaluation. Review of Systems Related to Reason for [...] and Mundo, 2019 Name of Guideline/Protocol Used: lymphedema Disposition/Plan of Care: Emergency Room via personal vehicle now will bring Patient/Caregiver verbalizes understanding of plan of care: Yes Patient/Caregiver agrees with plan: Yes Advised patient/caregiver to: NA; patient advised immediate ER/UC Patient/Caregiver demonstrates understanding via teach back: Yes documented in this encounter Plan of Treatment Upcoming Encounters Date Type Specialty Care Team Description 10/21/2022 Appointment Hematology and Oncology 10/21/2022 Hospital Encounter Radiology Adilene Link [address] MEDICAL ONCOLOGY [place], [place] [phone] (Wo rk) 10/21/2022 Appointment Radiology Adilene Link [address] ONCOLOGY [place], [place] [phone] (Wo rk) 10/21/2022 Appointment Radiology Adilene Link [address] ONCOLOGY [place], [place] [phone] (Wo rk) 10/25/2022 Office Visit Hematology and Oncology Alberto Guy MD [facility] HEMATOLOGY/[place] [address] [address] ONCOLOGY [place], [place] [phone] 11/09/2022 Office Visit Urology Bobo Davis MD [facility] UROLOGY [place], [place] [address] (Wo rk) documented as of this encounter Visit Diagnoses Not on filedocumented in this encounter Care Teams Spice Grinder Relationship Specialty Start Date End Date Derek Torres PA PCP - General Internal Medicine 06/07/21 [address] [place] [address] documented as of this encounter
--- OUTSIDE RECORDS SUMMARY | 2022-10-07 18:39 | XMS_ITS | Encounter Summary ---
:1955 Author Organization [facility] [place] [address] Care Team Providers Name Role Phone Derek Torres Primary Care Provider Encounter Details Date Type Department Care Team Description 07/01/2021 Multidisciplinary Care Urology Jimena Hillman, [facility] [address] UROLOGY DEPT [phone] [place] [address] Social History Tobacco Use Types Packs/Day Years Used Date Former Smoker Cigarettes 0.25 0 Quit: 06/2020 Smokeless Tobacco: Never Used Alcohol Use Standard Drinks/Week Comments Not Currently 0 (1 standard drink = 0.6 oz pure alcoho l) Sex Assigned at Date Recorded Not on file documented as of this encounter Progress Notes Jimena Hillman MD - 07/01/2021 4:57 PM EDT - Tumor Board Note Date Presented: 07/01/2021 Presenting Physician: Dr. Davis Diagnosis/Tumor Site: R Renal pelvis tumor Synopsis of History/HPI: enlarged RP LN, positive for urothelial cancer. TX w/neoadjuvant chemotherapy, near-complete response. Nodes resected. Imaging: no residual disease, no additional disease otherwise. Pathology/Histology: urothelial carcinoma of renal pelvis. Extra-champ tumor deposits with remainingviable tumor. Stage: T3 ?T4 Clinical Data (Exams, Labs, etc.): Molecular Pathology Results: Clinical Trial Availability: FGFR inhibition trial- insulin intolerance side effect Options Discussed: adjuvant treatment Additional chemotherapy - ?radiation cisplatin not option given Cr. Off-therapy adjuvant immunotherapy Observe and treat if progresses with salvage radiation Recommendations: Adjuvant immunotherapy pending FDA approval DISCLAIMER: The patient was discussed and the tumor board made recommendations but it is ultimately up to the treatment provider(s) and the patient to determine the patient???s care. documented in this encounter Plan of Treatment Upcoming Encounters Date Type Specialty Care Team Description 10/21/2022 Appointment Hematology and Oncology 10/21/2022 Hospital Encounter Radiology Adilene Link[address] [place] [address] (Wo rk) 10/21/2022 Appointment Radiology Adilene Link [address] [place] [address] (Wo rk) 10/21/2022 Appointment Radiology Adilene Link [address] [place] [address] (Wo rk) 10/25/2022 Office Visit Hematology and Oncology Alberto Guy MD [facility] DR HEMATOLOGY/[place] [address] [address] [place] [address] 11/09/2022 Office Visit Urology Bobo Davis MD [facility] DR UROLOGY [place], [place] [address] (Wo rk) documented as of this encounter Visit Diagnoses Not on filedocumented in this encounter Care Teams Education Courses Sales Representative Relationship Specialty Start Date End Date Derek Torres PA PCP - General Internal Medicine 06/07/[address] [phone] documented as of this encounter
--- OUTSIDE RECORDS SUMMARY | 2022-10-07 18:39 | XMS_ITS | Encounter Summary ---
:1955 Author Organization [facility] Address [facility] [place] [address] Care Team Providers Name Role Phone Derek Torres Primary Care Provider Encounter Details Date Type Department Care Team Description 07/05/2021 Office Visit Urology at [facility] Izabella Davis MD Cancer of renal [facility], right [address] [place] [address] [place] [address] [phone] Social History Tobacco Use Types Packs/Day Years Used Date Former Smoker Cigarettes 0.25 0 Quit: 06/2020 Smokeless Tobacco: Never Used Alcohol Use Standard Drinks/Week Comments Not Currently 0 (1 standard drink = 0.6 oz pure alcoho l) Sex Assigned at Date Recorded Not on file documented as of this encounter Progress Notes Izabella Davis MD - 07/05/2021 1:40 PM EDT Images from the original note were not included. Patient Name: Nancy Rivas Date of Service: 07/05/2021 Primary Care Provider: DELORES Zaman The patient's problem is suitable for a telephone visit. I obtained verbal consent from the patient to perform and telephone office visit, outlining the differences and limitations as compared to an inperson visit. The patient understands that this encounter may be billed similar to a clinic visit and she agreed. Reason for Visit: Nancy Rivas is a 66 y.o. female initially referred by Dr Gonsalez and Dr Renner for evaluation of urothelial cancer The patient has been tired for some time and developed hematuria. She was evaluated by Dr Renner whofound to have a Right renal pelvis tumor 12/25/[address] Renner 01/13/2021 High Grade Cytology A biopsy of her retroperitoneal lymph nodes 12/2020 High Grade UCC ~ 05/11/2021 Completed 4 cycles of GemCarbo Platin She was admitted after some of her chemo for CHF. Recently ~ 05/22 for a blood transfusion On apixaban related Right arm thrombo phlebitis. 06/16/2021 Robot assisted Nephroureterectomy with para caval/intra aortocava node disease. Final pathology [id number] High grade UCC with negative margins Department of Pathology & Laboratory Medicine [place] [address] , (Fax) [phone] Name: NANCY RIVAS Provider: IZABELLA DAVIS Client: [facility] /Age/Sex: 1955 66 years Female Location: [facility]; [facility]; A Report ID: [id number] The signing pathologist has (i) examined the relevant preparation(s) for the specimen(s); and (ii) rendered or confirmed the diagnosis(es). Pathology Report Collected: 06/16/2021 22:52 EDT Received: 06/16/2021 23:21 EDT Addendum ADDENDUM DISCUSSION PAS and BMS stains were evaluated for Block A17, demonstrating nodular glomerulosclerosis. Electronically signed by: MD Thorne Jason R. Verified: 06/24/2021 11:01 Pathologist Performed at: -[facility] Dept. of Pathology, [place], [place] Surgical Pathology DIAGNOSIS Right kidney and ureter with paracaval and intracaval lymph nodes, excision: - Urothelial carcinoma. (See SYNOPTIC REPORT), invasive into perinephric fat and renal parenchyma. 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 Electronically signed by: MD Thorne Jason R. Verified: 06/24/2021 10:58 Pathologist Performed at: -[facility] Dept. of Pathology, [place], [place] SYNOPTIC Specimen Procedure: Nephroureterectomy Specimen Laterality: Right Tumor Tumor Site: Renal pelvis Histologic Type: Papillary urothelial carcinoma, invasive Histologic Grade: High-grade Tumor Size: Cannot be determined - Multifocal microscopic tumor Tumor Extension: Tumor invades beyond muscularis into periureteral fat or peripelvic fat or the renal parenchyma Lymphovascular Invasion: Present Tumor Configuration: Papillary; Solid / nodule Margins Margins: Uninvolved by invasive carcinoma and carcinoma in situ / noninvasive urothelial carcinoma Lymph Nodes Number of Lymph Nodes Involved: 0 Number of Lymph Nodes Examined: At least 17 Pathologic Stage Classification (pTNM, AJCC 8th Edition) TNM Descriptors: y (post-treatment) Primary Tumor (pT): pT3 Regional Lymph Nodes (pN): pN0 Collected: 06/16/2021 22:52 EDT Received: 06/16/2021 23:21 EDT SYNOPTIC Additional Findings Additional Findings: Therapy-related changes - Variable sclerotic change to lymph nodes and soft tissue; Tumor soft tissue deposits are seen adjacent to lymph nodes Pathologic Findings in Ipsilateral Nonneoplastic Renal Tissue: Glomerular disease (type) - Mesangial matrix expansion, focally nodular, consistent with diabetic nephropathic change in the appropriate clinical context Comments Substantial viable carcinoma is present in and around the renal pelvis, invading directly into renal parenchyma and into perinephric (renal sinus) fat. There is also tumor present within soft tissue in sections of lymph nodes. Whether or not this represents contiguous tumor from the main mass versus soft tissue tumor deposits is unclear. No definite medial soft tissue margin involvement is identified; however, direct measurement of distance of clearance is not possible. Several lymph nodes show sclerotic scars consistent with treated tumor, but no definite viable lymph node metastases are identified. Tumor Block(s): A9 Normal Block(s): A17 CAP eCC December 2019 Annual Release Following the surgery she remained in the hospital a little longer that usual, primarily related to being slow to mobilize. Prior to discharge a cystogram showed no leak so her young was removed and she passes a voiding trial. She was discharged on 06/24/2021 I called her in follow up today. She continues to have pain and numbness on her LEFT hand side. Incisions look good. Voiding well. No blood. Nocturia x 2. Appetite poor, improving. Bowels OK. Past Medical History: Type II DM Hyperlipidemia HTN CHF (related to chemotherapy) PTSD Past Surgical History: Breast operation Over last 5 years 3 Abdominal hernia repairs with MESH () Dr Del Valle ~2017 Hysterectomy for a benign tumor Hx of Medications: Reviewed Allergies: Reviewed Family History: Mother had cancer at age 43 metastatic ? 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 The patient has been for ~20 years The patient drinks none. Tobacco: None x 6 months. ~ ~40 pack years Physical Exam: Not performed Lab values are reviewed 02/01/2021 Cr 1.7, Alk 101, LFT's normal, Hb 10.7, Plt 392 05/11/2021 Hb 8.7, Cr 1.4, Alk 104, LFT's normal, Alb 2.9 06/24/2021 Cr 1.65, eGFR 32,Hb 7.7, Plt 238 X-rays are reviewed 12/18/2020 CT ABd 12/25/2020 PET 04/30/2021 PET scan: ?? IMPRESSION 1. ??Anatomically decrease in size of known right upper tract urothelial carcinoma tumor, residual tumor difficult to evaluate secondary to normally excreted activity within the collecting system. 2. ??No suspected residual active champ metastases. 3. ??Interval small FDG avid left axillary and left lower neck/supraclavicular lymph nodes, favored likely reactive related to recent Covid vaccination. Cystoscopy 05/2021 Right stent, minimally encrusted. No tumors Tumor board Review Date Presented: 07/01/2021 Presenting Physician: Dr. Davis [...] radiation Recommendations: Adjuvant immunotherapy pending FDA approval Impression: #1: [id number] Urothelial cancer Stage IV sp Neoadjuvant chemotherapy. Now sp Nephroureterectomy [id number] High Grade UCC #2: CRI Stage III #3: Moderate comorbidity Plan: F/U Dr Gonsalez tomorrow to dicuss adjuvant therapy and schedule imaging f/u F/U 3 months for a cystoscopy I discussed the pathology/risk of recurrence/sites of recurrence (systemic and bladder). We discussed the tumor board recommendations which she will pursue further with Dr Gonsalez All questions answered. documented in this encounter Plan of Treatment Upcoming Encounters Date Type Specialty Care Team Description 10/21/2022 Appointment Hematology and Oncology 10/21/2022 Hospital Encounter Radiology Adilene Link[address] MEDICAL ONCOLOGY [place], [place] [phone] (Kwadwo morataya) 10/21/2022 Appointment Radiology Adilene Link[address] MEDICAL ONCOLOGY [place], [place] [phone] (Kwadwo rk) 10/21/2022 Appointment Radiology Adilene Link[address] MEDICAL ONCOLOGY [place], [place] [phone] (Kwadwo morataya) 10/25/2022 Office Visit Hematology and Oncology Alberto Guy MD [facility] DR HEMATOLOGY/[place] [address] [address] MEDICAL ONCOLOGY [place], [place] [phone] 11/09/2022 Office Visit Urology Izabella Davis MD [facility] UROLOGY [place], [place] [address] (Wo rk) documented as of this encounter Visit Diagnoses Diagnosis Cancer of renal pelvis, right documented in this encounter Care Teams Activities Attendant Relationship Specialty Start Date End Date Derek Torres PA PCP - General Internal Medicine 06/07/21 [address] [place] [address] documented as of this encounter
--- OUTSIDE RECORDS SUMMARY | 2022-10-07 18:39 | XMS_ITS | Encounter Summary ---
:1955 Author Organization [facility] [place] [address] Care Team Providers Name Role Phone Derek Torres Primary Care Provider Reason for Referral Diagnostic Test (Routine) - Closed Specialty Diagnoses / Procedures Referred By Contact Refer red To Contact Radiology Diagnoses Metastatic urothelial carcinoma Bone lesion Alberto Shelton MD [facility] Rad Ct Scan Procedures CT Guided Biopsy Bone (Spine/Skull) [facility] HEMATOLOGY/[place] [address] [place] [address] Referral ID Status Reason Start Date Expiration Date Visits V isits Requested Authorized [id number] Closed Specialty 10/19/2021 04/18/2023 1 1 Service Requested Encounter Details Date Type Department Care Team Description 10/19/2021 Office Visit Hematology/Oncology Andrea Shelton ic urothelial carcinoma (Primary Dx); at [facility] MD Alberto Encounter for antineoplastic chemotherap y and immunotherapy; [address] [place] [address] MEDICAL Drug-induced skin rash; [place], [place] CENTER Bone lesion [phone] HEMATOLOGY/ONCOLO [phone] [place], [place] [address] Social History Tobacco Use Types Packs/Day Years Used Date Former Smoker Cigarettes 0.25 0 Quit: 06/2020 Smokeless Tobacco: Never Used Alcohol Use Standard Drinks/Week Comments Not Currently 0 (1 standard drink = 0.6 oz pure alcoho l) Sex Assigned at Date Recorded Not on file documented as of this encounter Last Filed Vital Signs Vital Sign Reading Time Taken Comments Blood Pressure 149/76 10/19/2021 12:57 PM EST Pulse 96 10/19/2021 12:57 PM EST Temperature 36.7 ??C (98 ??F) 10/19/2021 12:57 PM EST Respiratory Rate 16 10/19/2021 12:57 PM EST Oxygen Saturation 100% 10/19/2021 12:57 PM EST Inhaled Oxygen Concentration - - Weight 98.9 kg (218 lb) 10/19/2021 12:57 PM EST Height 161.3 cm (5' 3.5) 10/19/2021 12:57 PM EST Body Mass Index 38.01 10/19/2021 12:57 PM EST documented in this encounter Progress Notes Alberto Shelton MD - 10/19/2021 1:00 PM EST Images from the original note were [...] C79.10 ??? High risk medication use Z79.899 HPI:Nancy Picahrdo is 66 y.o. F referred by Dr. [...] lymph nodes on January 22 at [facility]. Pathology is pending. PET scan demonstrated [...] Lovenox and and antibiotics with ciprofloxacin. INTERVAL history(10/19/21):- Nancy returns to the [facility] today to follow-up on metastatic urothelial carcinoma and continuation of adjuvant nivolumab..She is accompanied by her today. She complains on pain in her low back which gets worse at nighttime. Feels all muscles hurt due to inflammation. She is working with occupational therapy and physical therapy. Pain medication prescribed by her primary care physician, but she takes them very sporadically due to constipation and shewants to get feedback from her body. No changes in skin rash with mild itching. No other focal complaints today. No hematuria or dysuria. . She had cystoscopy and PET scan yesterday PMH: UTI was treated with antibiotics Completed antibiotics for UTI about a week ago. 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 Finalpathology- [id number] High grade UCC with negative margins UTI E. coli 100,000 colonies PTSD/depression, diabetes mellitus on insulin, arthritis, , hernia repair x3, anxiety, hysterectomy for urinary incontinence 2 to 3 years ago Social History: No interval changes since last visit [id number]-mmyo smoking history, quit 6 months ago, does [...] dressing Medications: Your Medications Accurate as of October 19, 2021 1:08 PM. If you have any questions, ask [...] HYDROcodone-acetaminophen 5-325 mg Tab Commonly known as: [place] TAKE ONE TABLET BY MOUTH THREE TIMES [...] B6) Refills: 0 Review of Systems Constitutional: Positive for. Negative [...] Thought content normal. Judgment: Judgment normal. BP 149/76 (Patient Position: Sitting) Pulse 96 Temp 36.7 ??C (98 ??F) (Temporal) Resp 16 Ht 161.3 cm (5' 3.5) Wt 98.9 kg (218 lb) SpO2 100% BMI 38.01 kg/m?? Wt Readings from Last 3 Encounters: 10/19/21 98.9 kg (218 lb) 10/18/21 95.3 kg (210 lb) 09/21/21 96.2 kg (212 lb) Pathology: 06/16/21 ADDENDUM DISCUSSION PAS and BMS stains were evaluated for Block A17, demonstrating nodular ??glomerulosclerosis. Electronically signed by: ?MD Thorne Jason R. Verified: ??06/24/2021 11:01 ??Pathologist Performed at: ??-[facility] Dept. of Pathology, [place], [place] ? Surgical Pathology DIAGNOSIS Right kidney and ureter with paracaval and intracaval lymph nodes, excision: ??- Urothelial carcinoma. ?? (See SYNOPTIC REPORT), invasive into ? perinephric fat and renal parenchyma. 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 Electronically signed by: ?MD Thorne Jason R. Verified: ??06/24/2021 10:58 ??Pathologist Performed at: ??-[facility]??Dept. of Pathology, [place], [place] SYNOPTIC Specimen ?Procedure: ??Nephroureterectomy ?Specimen Laterality: [...] carcinoma with superimposed abundant degenerative changes Labs: 10/19/2021 BUN 44, creatinine 1.5, calcium 8.7, [...] will do MRI of lumbar and sacrum We will proceed with cycle 4 of nivolumab today. # CHF: Follows with Dr. Ebony [...] follow up with him. #Bone sparing agent: Discussed initiation of bone sparing therapy with zoledronic acid. Printed information was provided on that medication. We will schedule him for infusion next visit. PLAN: 1. Nivolumab 480 mg IV in 4 weeks. 2. IR biopsy of L5 lesion 3. MRI of lumbar and sacrum 4. Next visit in 4 weeks with CBC, CMP, TSH, free T4, Zometa and 5-th cycle of nivolumab Nancy voiced understanding of the plan and was given an opportunity to ask questions which I answered to the best of my ability. Nancy understands she can call the clinic between visits with any questions/concerns or new symptoms. documented in this encounter Miscellaneous Notes Addendum Note - Alberto Shelton MD - 10/19/2021 1:00 PM EST Addended by: ALBERTO SHELTON on: 10/19/2021 02:04 PM Modules accepted: Orders documented in this encounter Plan of Treatment Upcoming Encounters Date Type Specialty Care Team Description 10/21/2022 Appointment Hematology and Oncology 10/21/2022 Hospital Encounter Radiology Adilene Link[address] MEDICAL ONCOLOGY [place], [place] [id number] (Wo rk) 10/21/2022 Appointment Radiology Adilene Link[address] MEDICAL ONCOLOGY [place], [place] [address] (Wo rk) 10/21/2022 Appointment Radiology Adilene Link[address] MEDICAL ONCOLOGY [place], [place] [phone] (Wo rk) 10/25/2022 Office Visit Hematology and Oncology Alberto Guy MD [facility] DR HEMATOLOGY/[place] [address] MEDICAL ONCOLOGY [place], [place] [phone] 11/09/2022 Office Visit Urology Bobo Davis MD [facility] DR UROLOGY [place], [place] [address] (Wo rk) documented as of this encounter Results CT Guided Biopsy Bone (Spine/Skull) (11/09/2021 2:11 [...] coordinator that requested your imaging first. ? Electronically signed by: Edison Dukes MD, [facility] ([phone]), at 11/09/2021 2:15 PM Narrative 11/09/2021 2:15 [...] re- procedural time-out was performed as per [facility] protocol. The patient was place d in [...] re- procedural time-out was performed as per [facility] protocol. The patient was place d in the CT Suite in the prone position. The L5 lesion was localized on axial CT images. The needle entry site was marked under CT guidance. The skin was prepped and draped in the usual sterile fashion. 1% buffered Lidocaine was used for local anesthesia. Maximum sterile barrier technique was utilized. The 13th G Techflakes[employer] bone biopsy set was employed. The penetration [...] care coordinator that requested your imaging first. 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
--- OUTSIDE RECORDS SUMMARY | 2022-10-07 18:39 | XMS_ITS | Encounter Summary ---
:1955 Author Organization [facility] Address [address] [address] Care Team Providers Name Role Phone Derek Torres Primary Care Provider Encounter Details Date Type Department Care Team Description 08/11/2021 Telephone Urology at [facility] Bobo Davis MD [facility] [place] [address] UROLOGY [phone] [place], [place] [address] (Wo rk) Social History Tobacco Use Types Packs/Day Years Used Date Former Smoker Cigarettes 0.25 0 Quit: 06/2020 Smokeless Tobacco: Never Used Alcohol Use Standard Drinks/Week Comments Not Currently 0 (1 standard drink = 0.6 oz pure alcoho l) Sex Assigned at Date Recorded Not on file documented as of this encounter Miscellaneous Notes Telephone Encounter - Phi Trammell - 08/11/2021 1:33 PM EDT Rayna from [facility] ED calling in regards to patient. Would like to speak with the correspondence school instructor doctor. Patient in ED with troubles of nephrectomy. PHONE: [phone] documented in this encounter Plan of Treatment Upcoming Encounters Date Type Specialty Care Team Description 10/21/2022 Appointment Hematology and Oncology 10/21/2022 Hospital Encounter Radiology Adilene Link, PHARMACEUTICAL BOTANIST [address] [place] [address] DR MEDICAL ONCOLOGY [place], [place] [address] (Wo rk) 10/21/2022 Appointment Radiology Adilene Link[address] [place] [address] (Wo rk) 10/21/2022 Appointment Radiology Adilene Link[address] ONCOLOGY [place], [place] [address] (Wo rk) 10/25/2022 Office Visit Hematology and Oncology Alberto Guy MD [facility] DR HEMATOLOGY/[place] [address] [address] MEDICAL ONCOLOGY [place], [place] [phone] 11/09/2022 Office Visit Urology Bobo Davis MD [facility] DR UROLOGY [place], [place] [address] (Wo rk) documented as of this encounter Visit Diagnoses Not on filedocumented in this encounter Care Teams Speaker Wirer Relationship Specialty Start Date End Date Derek Torres PA PCP - General Internal Medicine 06/07/21 [address] [place], [place] [phone] documented as of this encounter
--- OUTSIDE RECORDS SUMMARY | 2022-10-07 18:39 | XMS_ITS | Encounter Summary ---
:1955 Author Organization [facility] [place] [address] Care Team Providers Name Role Phone Derek Torres Primary Care Provider Encounter Details Date Type Department Care Team Description 08/24/2021 Office Visit Hematology/Oncology Rah Bhatia MD [facility] DR HEMATOLOGY/[place] [address] Metastatic urothelial carcinoma; at [facility], Adilene Mock COVERING AND LINING SUPERVISOR [address] [place] [address] [place] [address] Cancer of renal pelvis, right [address] [place] [phone] Social History Tobacco Use Types Packs/Day Years Used Date Former Smoker Cigarettes 0.25 0 Quit: 06/2020 Smokeless Tobacco: Never Used Alcohol Use Standard Drinks/Week Comments Not Currently 0 (1 standard drink = 0.6 oz pure alcoho l) Sex Assigned at Date Recorded Not on file documented as of this encounter Last Filed Vital Signs Vital Sign Reading Time Taken Comments Blood Pressure 182/81 08/24/2021 12:56 PM EDT Pulse 89 08/24/2021 12:56 PM EDT Temperature 36.8 ??C (98.2 ??F) 08/24/2021 12:56 PM EDT Respiratory Rate 20 08/24/2021 12:56 PM EDT Oxygen Saturation 96% 08/24/2021 12:56 PM EDT Inhaled Oxygen Concentration - - Weight 95.4 kg (210 lb 6.4 oz) 08/24/2021 12:56 PM EDT Height 161.3 cm (5' 3.5) 08/24/2021 12:56 PM EDT Body Mass Index 36.68 08/24/2021 12:56 PM EDT documented in this encounter Progress Notes Adilene Link, COVERING AND LINING SUPERVISOR - 08/24/2021 1:00 PM EDT Images from the original note [...] kidney disease), 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 Depression F32.9 ??? Diabetes mellitus due to underlying condition [...] ??? High risk medication use Z79.899 HPI:Nancy Pichardo is 66 y.o. F referred [...] Lovenox and and antibiotics with ciprofloxacin. INTERVAL history(08/24/21):- Nancy returns to the [facility] today to continue adjuvant immunotherapy post urothelial carcinoma of right kidney.She is accompanied by her today. Nancy complains of back pain/ nerve pain after surgery. She is working with occupational therapy learning how to get herself up and out of the chair. Pain medication prescribed by her primary care physician.Overwise, she feels at her baseline no nausea, vomiting, constipation or diarrhea. She is still having intermittent arthralgias. No other focal complaints today. No hematuria or dysuria. She tolerated C1 Nivolumab well. She has a few areas of scattered rash that is itching. She has been using hydrocort isone cream with relief. PMH: 06/16/21- Robot assisted Right Nephroureterectomy with para caval/intra aortocava node disease. Finalpathology- [id number] High grade UCC with negative margins UTI E. coli 100,000 colonies PTSD/depression, diabetes mellitus on insulin, arthritis, , hernia repair x3, anxiety, hysterectomy for urinary incontinence 2 to 3 years ago Social History: [id number]-qjiu smoking history, quit 6 months ago, does not drink alcohol, she has a daughter Family History: Mother had spinal cancer at age of [...] Medications: Your Medications Accurate as of August 24, 2021 1:39 PM. If you have any questions, ask [...] daily. 20 mg Refills: 0 humaLOG KwikPen Inpn INJECT SUBCUTANEOUSLY PER SLIDING SCALE THREE TIMES A DAY BEFORE MEALS 101TO 150 2 UNITS 151 TO 200 4 UNITS 201 TO 250 6 UNITS 251 TO 3 Generic drug: insulin lispro Refills: 0 HYDROcodone-acetaminophen 5-325 mg Tab Commonly known as: [place] TAKE ONE TABLET BY MOUTH THREE TIMES A DAY NEEDED FOR PAIN Refills: 0 Insulin Tresiba FlexTouch U-100 100 unit/mL (3 mL) Inpn Inject 58 Units subcutaneously daily. Generic drug: insulin degludec 58 Units Refills: 0 losartan 100 mg Tab Commonly known as: COZAAR Refills: 0 metoprolol tartrate 25 mg Tab [...] once as needed. 1 enema Refills: 0 Vitamin B-6 25 mg Tab TAKE FOUR TABLETS BY MOUTH EVERY DAY Generic drug: pyridoxine (vitamin B6) Refills: 0 Review of Systems Constitutional: Positive for appetite change. Negative for chills and fever. Eyes: Negative for icterus. Respiratory: Negative for cough. Positive for SOB. Cardiovascular: Negative for chest pain. Positive for LE swelling. Genitourinary: Negative for difficulty urinating and hematuria. Negative for incontinence. GI: Negative for nausea, vomiting, constipation or diarrhea. Musculoskeletal: Generalized myalgias. Hematological: Negative for adenopathy. Skin- Scattered rash with itching. OBJECTIVE: Physical Exam Constitutional: Appearance: Normal appearance. [...] Thought content normal. Judgment: Judgment normal. BP 182/81 (Patient Position: Sitting) Pulse 89 Temp 36.8 ??C (98.2 ??F) (Temporal) Resp 20 Ht 161.3 cm (5' 3.5) Wt 95.4 kg (210 lb 6.4 oz) SpO2 96% BMI 36.68 kg/m?? Wt Readings from Last 3 Encounters: 08/24/21 95.4 kg (210 lb 6.4 oz) 07/27/21 95.7 kg (211 lb) 07/06/21 96.1 kg (211 lb 12.8 oz) Pathology: 06/16/21 ADDENDUM DISCUSSION PAS and BMS stains were evaluated for Block A17, demonstrating nodular ??glomerulosclerosis. Electronically signed by: ?MD Thorne Jason R. Verified: ??06/24/2021 11:01 ??Pathologist Performed at: ??-[facility] [place], [place], [place] ? Surgical Pathology DIAGNOSIS Right kidney and ureter with paracaval and intracaval lymph nodes, excision: ??- Urothelial carcinoma. ?? (See SYNOPTIC REPORT), invasive into ? perinephric fat and renal parenchyma. 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 Electronically signed by: ?MD Thorne Jason R. Verified: ??06/24/2021 10:58 ??Pathologist Performed at: ??-[facility]Dept. of Pathology, [place], [place] SYNOPTIC Specimen ?Procedure: ??Nephroureterectomy ?Specimen Laterality: [...] carcinoma with superimposed abundant degenerative changes Labs: 08/24/21- WBC-8.46 Hgb/Hct 10.4/32.9 Plt-254 ANC-6.33 Na-141 [...] phosphatase 84, total protein 6.8, albumin 2.8. WBC 3.26, hemoglobin 8.7, platelet count 205, ANC 2.06, sodium 139, potassium 4.3, BUN 38, creatinine 1.4, calcium 8.9, magnesium 1.7, TB 0.3, AST 27, ALT 45, alkaline phosphatase 104, total protein 7.4, albumin 2.9, 05/04/21- WBC-9.20 Hgb/Hct-9.6/30.7 Plt-446 ANC-6.62 Na-141 K+-4.5 BUN/cr-41/1.2 Glucose-135 Ca-9.1 Mg-2.2 T. Bili-0.2 AST-18 ALT-41 Alk phos-111 Albumin-3.0 04/28/21- WBC-8.57 Hgb/Hct-8.8/27.0 Plt-281 ANC-6.06 Na-138 K+-4.7 BUN/cr-50/1.4 Glucose-181 Ca-8.9 Mg-1.7 T. Bili-0.2 AST-14 ALT-48 Alk phos-108 Albumin-2.9 04/20/21- WBC-4.52 Hgb/Hct-8.6/27.0 Plt-162 ANC-3.38 Na-140 K+-4.9 BUN/cr-43/1.1 Glucose-152 Ca-8.8 Mg-1.9 T. Bili-0.3 AST-48 ALT-202 Alk phos-98 Albumin-2.9 2021 WBC 9.84, hemoglobin 9, platelet count 332, ANC 7.14, sodium 142, potassium 4.5, BUN 48, creatinine 1.5, glucose 172, calcium 9.3, magnesium 1.8, TB 0.3, AST 14, ALT 35, alkaline [id number], total protein 7.7, albumin 2.8, 04/09/2021 UA urine blood moderate, urine nitrite negative, urine leukocyte esterase trace, WBC 5-10,preliminary urinary culture mixed gram-positive mekhi 10-50,000 colonies 04/06/2021 WBC 13.24, hemoglobin 9, platelet count 431, ANC 10.7, sodium 137, potassium 4.8, BUN 56, creatinine 1.7, calcium 9.0, glucose 229, magnesium 2, TB 0.3, AST 13, ALT 34, total protein 8.1, albumin 3.0 04/05/2021 urine culture greater than 100,000 gram-negative rods ID and sensitivity to follow. Urinary hesitancy, leukocyte esterase large, protein 1+, blood moderate. Nitrites negative, RBC 10/25, bacteria many, 03/22/2027 vitamin B12 more than 2000, sodium 139, potassium 4.4, BUN 34, creatinine 1.7, glucose 128, calcium 8.5, magnesium 2.0, TSH 4.03, free T4 1.13, WBC 34.7, hemoglobin 8.2, platelet count 178, blood cultures no growth 48 hours 03/19/2021 BNP 3768 03/16/21- WBC-32.39 Hgb/Hct-8.2/26.2 Plt-101 Na-142 K+-5.0 BUN/cr-36/1.4 Glucose-224 Ca-8.6 T. Bili-0.1 AST-24 ALT-34 Alk phos-200 T. Protein-6.3Albumin-2.7 03/09/21- WBC-2.73 Hgb/Hct-9.2/28.5 Plt-321 ANC-1.49 Na-138 K+-5.1 BUN/cr-56/1.2 Glucose-120 Ca-9.1 Mg-2.1 T. Bili-0.2 AST-26 ALT-36 Alk phos-111 Albumin-2.9 02/16/2021 WBC 4.77, hemoglobin 11, platelet count 285, ANC 3.51, sodium 137, potassium 4.6, BUN 49,creatinine 1.4, glucose 165, calcium 8.6, magnesium 2.3, TB 0.2, AST 18, ALT 31, alkaline phosphatase 113, total protein 7.5, albumin 2.6, 02/09/21- WBC-12.17 Hgb/Hct-10.5/32.6 MCV-87.6 Plt-427 ANC-9.29 Na-138 K+-4.3 BUN/cr-41/1.7 Glucose-141 Ca-9.1 T. Bili-0.2 AST-11 ALT-18 Alk phos-117 Albumin-2.5 01/18/2021 BUN 42, creatinine 1.3, sodium 134, potassium 4.3, WBC 10.4, hemoglobin 12.2, platelet count 347, Imagin07/23/2021 x-ray lumbar spine and hips/pelvis: Impression degenerative [...] nephroureterectomy - 07/27/21- Adjuvant Nivolumab 480mg IV X 4 cycles Ms. Pichardo initially presented with a [...] restage her in September with PET scan. # CHF: Follows with Dr. Ebony Beckham, had stress test on April 01, 2021 technically suboptimal, but no definite myocardial ischemia or evidence of prior infarction. EF 63% #Anemia: Multifactoral. It is slowly improving post surgery. Kidney insufficiency could contribute to anemia as well. It does contribute to her fatigue. Will monitor. # Elevated potassium- recently decreased her lasix to once daily and is on Cozaar 100 mg daily. She sees her PCP at the end of this week and will follow up with him. PLAN: 1. Adjuvant nivolumab 480 mg IV in 4 weeks. 2. Next visit in 4 weeks with CBC, CMP, TSH, free T4 and third cycle of nivolumab Nancy voiced understanding of the plan and was given an opportunity to ask questions which I answered to the best of my ability. Nancy understands she can call the clinic between visits with any questions/concerns or new symptoms. Adilene Link APRN documented in this encounter Plan of Treatment Upcoming Encounters Date Type Specialty Care Team Description 10/21/2022 Appointment Hematology and Oncology 10/21/2022 Hospital Encounter Radiology Adilene Link[address] ONCOLOGY [place], [place] [phone] (Wo rk) 10/21/2022 Appointment Radiology Adilene Link[address] ONCOLOGY [place], [place] [phone] (Wo rk) 10/21/2022 Appointment Radiology Adilene Link[address] MEDICAL ONCOLOGY [place], [place] [address] [phone] (Wo rk) 10/25/2022 Office Visit Hematology and Oncology Alberto Guy MD [facility] DR HEMATOLOGY/[place] [address] MEDICAL ONCOLOGY [place], [place] [address] [phone] 11/09/2022 Office Visit Urology Bobo Davis MD [facility] DR UROLOGY [place], [place] [address] (Wo rk) documented as of this encounter Visit Diagnoses Diagnosis Metastatic urothelial carcinoma 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
--- OUTSIDE RECORDS SUMMARY | 2022-10-07 18:39 | XMS_ITS | Encounter Summary ---
:1955 Author Organization [facility] [place] [place] [address] Care Team Providers Name Role Phone Derek Torres Primary Care Provider Reason for Visit Reason Onset Date Comments Follow-up 10/05/2021 Encounter Details Date Type Department Care Team Description 10/05/2021 [facility]-up [facility] MORTEZA [address] [place] [phone] Social History Tobacco Use Types Packs/Day Years Used Date Former Smoker Cigarettes 0.25 0 Quit: 06/2020 Smokeless Tobacco: Never Used Alcohol Use Standard Drinks/Week Comments Not Currently 0 (1 standard drink = 0.6 oz pure alcoho l) Sex Assigned at Date Recorded Not on file documented as of this encounter Miscellaneous Notes Telephone Encounter - Uriel Oliva RN - 10/05/2021 4:08 PM EST Called and spoke with Nancy Pichardo to follow up on her hyperkalemia. Her PCP lowered her losartan to 50 mg daily and she is going for CMP re-check tomorrow at [facility]. Pt also reports she has been on ABT for UTI, 5 day course of Cephalexin 250 mg BID. She reports every time she gets her immunotherapy treatment she seems to then get UTI. She is wondering if there is anything prophylactic she can do or take. Will send to provider for review and they can further discuss when she comes in for FUV on 10/19/21. documented in this encounter Plan of Treatment Upcoming Encounters Date Type Specialty Care Team Description 10/21/2022 Appointment Hematology and Oncology 10/21/2022 Hospital Encounter Radiology Adilene Link, [address] [place] [address] (Wo rk) 10/21/2022 Appointment Radiology Adilene Link[address] [place] [address] (Wo rk) 10/21/2022 Appointment Radiology Adilene Link[address] [place] [address] (Wo rk) 10/25/2022 Office Visit Hematology and Oncology Alberto Guy MD [facility] DR HEMATOLOGY/[place] [address] [address] ONCOLOGY [place], [place] [phone] 11/09/2022 Office Visit Urology Bobo Davis MD [facility] DR UROLOGY [place], [place] [address] (Wo rk) documented as of this encounter Visit Diagnoses Not on filedocumented in this encounter Care Teams Head Of English Relationship Specialty Start Date End Date Derek Torres PA PCP - General Internal Medicine 06/07/21 Mahnaz [address]LSON [address] [place], [place] [address] documented as of this encounter
--- OUTSIDE RECORDS SUMMARY | 2022-10-07 18:39 | XMS_ITS | Encounter Summary ---
:1955 Author Organization [facility] Address [facility] [place] [address] Care Team Providers Name Role Phone Derek Torres Primary Care Provider Reason for Visit Reason Comments Follow-up Encounter Details Date Type Department Care Team Description 10/18/2021 Office Visit Urology at [facility] Izabella Davis MD Malignant neoplasm of [facility] rig ht renal pelvis [address] [place] [address] [place] [address] [phone] Social History Tobacco Use Types Packs/Day Years Used Date Former Smoker Cigarettes 0.25 0 Quit: 06/2020 Smokeless Tobacco: Never Used Alcohol Use Standard Drinks/Week Comments Not Currently 0 (1 standard drink = 0.6 oz pure alcoho l) Sex Assigned at Date Recorded Not on file documented as of this encounter Last Filed Vital Signs Vital Sign Reading Time Taken Comments Blood Pressure 158/87 10/18/2021 10:15 AM EST Pulse 85 10/18/2021 10:15 AM EST Temperature 36.6 ??C (97.8 ??F) 10/18/2021 10:15 AM EST Respiratory Rate 20 10/18/2021 10:15 AM EST Oxygen Saturation 100% 10/18/2021 10:15 AM EST Inhaled Oxygen Concentration - - Weight 95.3 kg (210 lb) 10/18/2021 10:15 AM EST Height 161.3 cm (5' 3.5) 10/18/2021 10:15 AM EST Body Mass Index 36.62 10/18/2021 10:15 AM EST documented in this encounter Patient Instructions Patient InstructionsMerlineManuel baranrd, DIETITIAN CHIEF - 10/18/2021 10:20 AM EST Instructions following Cystoscopy Activity: As tolerated by your comfort level. Fluids: You should increase your water today. Avoid coffee, tea and cola. You do not need to exceed 64 ounces of water today. Urination: You will likely have a small amount of blood in your urine for the next several days. This is normal; however, if you are passing large amounts of blood clots or are unable to void please call our office at [phone] before 5PM or [phone] after hours. Please call if: * you have copious blood in your urine * fevers greater than 101.3 F * you are unable to void The number for questions is [phone] before 5 PM weekdays and [phone] after 5 PM and weekends. Follow-up: With Dr. Davis in 3 months. documented in this encounter Progress Notes Izabella Davis MD - 10/18/2021 10:20 AM EST Images from the original note were not included. Patient Name: Nancy Rivas Date of Service: 10/18/2021 Primary Care Provider: DELORES Zaman . Reason for Visit: Nancy Rivas is a 66 y.o. female initially referred by Dr Gonsalez and Dr Renner for evaluation of urothelial cancer. She comes for a follow up cystoscopy. Kindly brings a necklace she made for my . The patient has been tired for some [...] of her chemo for CHF. Recently ~ 6/26 for a blood transfusion On apixaban related Right arm thrombo phlebitis. 06/16/2021 Robot assisted Nephroureterectomy with para caval/intra aortocava node disease. Final pathology [id number] High grade UCC with negative margins Department of Pathology & Laboratory Medicine [facility] [address] , (Fax) [phone] Name: NANCY RIVAS Nish Provider: FLAKITOCarlitosIZABELLA Dennis Client: [facility] /Age/Sex: 1955 66 years Female [facility]; [facility] [place] [place]; A Report ID: [id number] The signing pathologist has (i) examined the relevant preparation(s) for the specimen(s); and (ii) rendered or confirmed the diagnosis(es). Pathology Report Collected: 06/16/2021 22:52 EDT Received: 06/16/2021 23:21 EDT Addendum ADDENDUM DISCUSSION PAS and BMS stains were evaluated for Block A17, demonstrating nodular glomerulosclerosis. Electronically signed by: MD Thorne Jason R. Verified: 06/24/2021 11:01 Pathologist Performed at: -[facility] Dept. of Pathology, [place], [place] Surgical Pathology DIAGNOSIS Right kidney and ureter with paracaval and intracaval lymph nodes, excision: - Urothelial carcinoma. (See SYNOPTIC REPORT), invasive into perinephric fat and renal parenchyma. 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 Electronically signed by: MD Thorne Jason R. Verified: 06/24/2021 10:58 Pathologist Performed at: [facility] [place]. [place] SYNOPTIC Specimen Procedure: Nephroureterectomy Specimen Laterality: [...] voiding trial. She was discharged on 06/24/2021 She is on adjuvant Nivo Has had recurrent UTI's. No specific symptoms just foul smelling urine. I do not have access to the culture results. Voiding well. No blood. Nocturia x 2. Appetite poor, improving. Bowels OK. Does have some lower back pain in the sacral area. Past Medical History: Type II DM Hyperlipidemia HTN CHF (related to chemotherapy) PTSD Past Surgical History: Breast operation Over last 5 years 3 Abdominal hernia repairs with MESH ([facility] Dr Del Valle ~2017 Hysterectomy for a benign tumor Hx of Medications: Reviewed Allergies: Reviewed Family History: Mother had cancer at age 43 metastatic ? 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 The patient has been for ~20 years [...] likely reactive related to recent Covid vaccination. 10/15/2021 IMPRESSION 1. Interval nephrectomy. 2. Interval resolution of hypermetabolic lymphadenopathy. 3. New hypermetabolic sclerotic lesions and L5-S1 are concerning for skeletal Metastases. Cystoscopy 05/2021 Right stent, minimally encrusted. No tumors 09/2021 Right UO absent. No tumors Tumor board Review Date Presented: [...] Adjuvant immunotherapy pending FDA approval Impression: #1: [id number] Urothelial cancer Stage IV sp Neoadjuvant chemotherapy. Now sp Nephroureterectomy [id number] High Grade UCC. New lesions in the Sacrum L5 #2: CRI Stage III #3: Moderate comorbidity Plan: F/U Dr Gonsalez tomorrow to amarjit PET in more detail. I did discuss the significance of recurrent diease in these circumstances. F/U 9 months for a cystoscopy All questions answered. documented in this encounter Procedure Notes Izabella Davis MD - 10/18/2021 10:20 AM ESTAssociated Order(s): CYSTOSCOPY Pre-Procedure Diagnose(s): Malignant neoplasm of right renal pelvis Procedure: Flexible Cystoscopy Surgeon: Izabella Davis Preoperative Diagnosis: History of Left Ureteral Cancer Post Operative Diagnosis: No evidence of Bladder Cancer Complications: None Procedure: Urinalysis revealed no evidence of an active urinary tract infection. After informed consent was obtained and the external genitalia appropriately cleaned and draped, lidocaine was instilled into the urethra to achieve topical anaesthesia. The flexible telescope was inserted into the urethra and advanced into the bladder under direct vision. The bladder was systematically inspected through 360 degrees with the flexible telescope including retroversion. The anterior urethroscopy was normal. The Left ureteral orifices was in normal position and effluxed clear urine. Right UO scar The bladder was normal. There were no bladder tumors, mucosal abnormalities or bladder stones. The cystoscope was removed. The patient tolerated the procedure without difficulty. There were no complications. Izabella Davis documented in this encounter Plan of Treatment Upcoming Encounters Date Type Specialty Care Team Description 10/21/2022 Appointment Hematology and Oncology 10/21/2022 Hospital Encounter Radiology Adilene Link, MATTR[employer] PACKER [address] [facility] [address] MEDICAL ONCOLOGY [place], [place] [phone] (Wo rk) 10/21/2022 Appointment Radiology NikolayAdilene [address] MEDICAL ONCOLOGY [facility] [place] [place] [address] (Wo rk) 10/21/2022 Appointment Radiology Adilene Link [address] MEDICAL ONCOLOGY [place], [place] [phone] (Wo rk) 10/25/2022 Office Visit Hematology and Oncology Alberto Guy MD [facility] DR HEMATOLOGY/[place] [address] [address] MEDICAL ONCOLOGY [place], [place] [phone] 11/09/2022 Office Visit Urology Izabella Davis MD [facility] DR UROLOGY [place], [place] [address] (Wo rk) documented as of this encounter Procedures Procedure Name Priority Date/Time Associated Diagnosis Comme nts CYSTOSCOPY Routine 10/18/2021 10:20 AM Malignant neoplasm of Results for this EST right renal pelvis procedure are in the results section . documented in this encounter Results Cystoscopy (10/18/2021 10:20 AM EST) Narrative Izabella Davis MD - 10/18/2021 10:20 AM EST Izabella Davis MD ? 10/18/2021 11:15 AM Procedure: Flexible Cystoscopy Surgeon: Izabella Davis Preoperative Diagnosis: History of Left Ureteral Cancer Post Operative Diagnosis: No evidence of Bladder Cancer Complications: None Procedure: Urinalysis revealed no evidence of an ac tive urinary tract infection. After informed consent was obtained and the external genitalia appropriately cleaned and draped, lidoca ine was instilled into the urethra to achieve topical anaesthes ia. The flexible telescope was inserted into the urethra and advanced into the bladder under direct vision. Th e bladder was systematically inspected through 360 deg dilan with the flexible telescope including retroversion. The anterior urethroscopy was normal. The Left ureteral orifices was in normal position and effluxed clear urine. Right UO scar The bladder was normal. There were no bl adder tumors, mucosal abnormalities or bladder stones. The cystoscope was removed. The patient tolerated the procedure without difficulty. There were no compli cations. Izabella Davis Izabella Davis MD PROCEDURE ORDERABLES documented in this encounter Visit Diagnoses Diagnosis Malignant neoplasm of right renal pelvis Malignant neoplasm of renal pelvis documented in this encounter Care Teams Radar Air Traffic Controller Relationship Specialty Start Date End Date Derek Torres PA PCP - General Internal Medicine 06/07/21 Mahnaz [address] [place] [address] documented as of this encounter
--- OUTSIDE RECORDS SUMMARY | 2022-10-07 18:39 | XMS_ITS | Encounter Summary ---
:1955 Author Organization [facility] [place] [address] Care Team Providers Name Role Phone Derek Torres Primary Care Provider Encounter Details Date Type Department Care Team Description 07/23/2021 Ancillary Procedure Radiology Library at Linsey Torres [facility] [place] [address] [address] [place], [place] [phone] (Wo rk) Social History Tobacco Use Types [...] 10/21/2022 Hospital Encounter Radiology Adilene Link APRN [address] [place] [address] DR MEDICAL ONCOLOGY [place], [place] [phone] (Wo rk) 10/21/2022 Appointment Radiology Adilene Link [address] MEDICAL ONCOLOGY [place], [place] [phone] (Wo rk) 10/21/2022 Appointment Radiology Adilene Link [address] MEDICAL ONCOLOGY [place], [place] [phone] (Wo rk) 10/25/2022 Office Visit Hematology and Oncology Alberto Guy MD [facility] DR HEMATOLOGY/[place] [address] Adilene Link, [address] MEDICAL ONCOLOGY [place], [place] [phone] 11/09/2022 Office Visit Urology Bobo Davis MD [facility] UROLOGY [place], [place] [address] (Wo rk) documented as of this encounter Procedures Procedure Name Priority Date/Time Associated Diagnosis Comme nts FILM LIBRARY Routine 07/23/2021 12:00 AM Results for this STORAGE ONLY DX EDT procedure ar e in PELVIS the results section. documented in this encounter Results Film Library- Storage Only DX Pelvis (07/23/2021 12:00 AM EDT) Specimen (Source) Anatomical Location Collection Method / Collectio n Time Received Time / Laterality Volume Narrative RAD - 08/11/2021 2:40 PM EDT This exam is auto-finalizing. It's purpo se is for storage only. Derek ESTRELLA IMShantel FILM LIBRARY ORDERABLES Performing Organization Address City/State/ZIP Code Phon e Number [place], [place] documented in this encounter Visit Diagnoses Not on filedocumented in this encounter Care Teams Pharmacist In Charge Owner Relationship Specialty Start Date End Date Derek Torres PA PCP - General Internal Medicine 06/07/21 Mahnaz [address]LSON [address] [place], [place] [address] documented as of this encounter
--- OUTSIDE RECORDS SUMMARY | 2022-10-07 18:39 | XMS_ITS | Encounter Summary ---
:1955 Author Organization [facility] [place] [address] Care Team Providers Name Role Phone Derek Torres Primary Care Provider Reason for Visit Reason Comments Medication Refill Encounter Details Date Type Department Care Team Description 07/26/2021 Refill Hematology/Oncology at [facility] Adilene [address] MEDICAL ONCOLOGY [place], [place] [address] [place], [place] [phone] (Kwadwo rk) Social History Tobacco Use Types Packs/Day [...] Oncology 10/21/2022 Hospital Encounter Radiology Adilene Link LOG GRADER [address] [place] [address] MEDICAL ONCOLOGY [place], [place] [phone] (Wo rk) 10/21/2022 Appointment Radiology Adilene Link [address] MEDICAL ONCOLOGY [place], [place] [phone] (Wo rk) 10/21/2022 Appointment Radiology Adilene Link [address] MEDICAL ONCOLOGY [place], [place] [phone] (Wo rk) 10/25/2022 Office Visit Hematology and Oncology Alberto Guy MD [facility] HEMATOLOGY/[place] [address] MEDICAL ONCOLOGY [place], [place] [address] 11/09/2022 Office Visit Urology Bobo Davis MD [facility] UROLOGY [place], [place] [address] (Wo rk) documented as of this encounter Visit Diagnoses Not on filedocumented in this encounter Care Teams Anesthesiology Technologist Relationship Specialty Start Date End Date Derek Torres PA PCP - General Internal Medicine 06/07/21 Mahnaz [address]LSON [address] [place], [place] [address] documented as of this encounter
--- OUTSIDE RECORDS SUMMARY | 2022-10-07 18:39 | XMS_ITS | Encounter Summary ---
:1955 [place] [address] Care Team Providers Name Role Phone Derek Torres Primary Care Provider Reason for Visit Reason Comments Chemotherapy Cycle 4, Day 1 - Nivolumab Treatment/Therapy Plan Authorization (Routine) - Specialty Diagnoses / Procedures Referred By Contact Refer red To Contact Diagnoses Urothelial carcinoma of kidney, right Malignant neoplasm of urinary bladder, unspecified site Neutropenia, drug-induced Metastatic urothelial carcinoma High risk medication use Alberto Bhatia MD [facility] Hem Onc Office Procedures OPDIVO [address] HEMATOLOGY/[place] [phone] Fax: Referral ID Status Reason Start Date Expiration Date Visits V isits Requested Authorized [id number] 10/19/2021 02/02/2022 8 8 Encounter Details Date Type Department Care Team Description 10/19/2021 Infusion Hematology Oncology at [facility] tastatic urothelial carcinoma; [facility] High risk medication use; [address] [place] [address] Neutropenia, drug-induced; [place], [place] [phone] Urothelial carcinoma of kidn ey, right; [phone] Malignant neopl asm of urinary bladder, unspecified [...] encounter Progress Notes Brittny Rondon RN - 10/19/2021 1:30 PM EST INFUSION THERAPY ADMINISTRATION NOTES DIAGNOSIS: Urothelial cancer CYCLE #: Cycle 4, Day 1 - Nivolumab REASON FOR VISIT: To receive chemotherapy. SUBJECTIVE: Nancy offers no complaints. OBJECTIVE: VSS. Seen by provider. Ready to treat. LAB DATA: WBC - 9.41, H/H - 10.8/34.9, Plt Ct - 246, ANC - 6.89, Lytes wnl, BUN/Cr - 44/1.5, CA++ - 8.7, MG+ - 1.9, TSH/Free T4 not resulted today. IV ACCESS: PIV left wrist. Pre administration: Chemotherapy orders independently verified for drug name, route, and dosage per patient's height, weight and BSA by Brittny Rondon, MORTEZA and Staff Pharmacist(s). REACTIONS (DESCRIPTION, TIME, INTERVENTION AND EFFECTIVENESS) none ASSESSMENT: Nancy was awake and tolerated treatment well. PIV discontinued prior to dismissal. PLAN: Return to clinic as scheduled. documented in this encounter Plan of Treatment Upcoming Encounters Date Type Specialty Care Team Description 10/21/2022 Appointment Hematology and Oncology 10/21/2022 Hospital Encounter Radiology Adilene Link[address] MEDICAL ONCOLOGY [place], [place] [phone] (Kwadwo morataya) 10/21/2022 Appointment Radiology Adilene Link[address] MEDICAL ONCOLOGY [place], [place] [phone] (Kwadwo morataya) 10/21/2022 Appointment Radiology Adilene Link[address] MEDICAL ONCOLOGY [place], [place] [phone] (Kwadwo morataya) 10/25/2022 Office Visit Hematology and Oncology Alberto Guy MD [facility] DR HEMATOLOGY/[place] [address] Adilene Link, PHYSICIST ASTROPHYSICS [address] [place] [address] DR MEDICAL ONCOLOGY [place], [place] [phone] 11/09/2022 Office Visit Urology Bobo Davis MD [facility] UROLOGY [place], [place] [address] (Wo rk) documented as of [...] nivolumab (Opdivo) 480 mg in New Bag 10/19/2021 2:53 PM EST 480 mg 296 mL/hr sodium chloride 0.9% 148 mL infusion 480 mg, Intravenous, ONCE, 1 dose, On Mon10/19/21 at 1530, Administer over 30 Minutes, Flush line with NS after each dose, This agent is restricted to outpatient use. Is this drug being given as an outpatient? Yes sodium chloride 0.9% infusion New Bag 10/19/2021 2:15 PM EST 100 mL/hr 100 mL/hr 100 mL/hr, Intravenous, CONTINUOUS, Starting on Mon10/19/21 at 1430, Until Mon10/19/21 at 1803 documented in this encounter Care Teams Engineering Technologist Relationship Specialty Start Date End Date Derek Torres PA PCP - General Internal Medicine 06/07/21 [address] [place] [address] documented as of this encounter
--- OUTSIDE RECORDS SUMMARY | 2022-10-07 18:39 | XMS_ITS | Encounter Summary ---
:1955 Author Organization [facility] [place] [address] Care Team Providers Name Role Phone Derek Torres Primary Care Provider Reason for Referral Diagnostic Test (Routine) - Closed Specialty Diagnoses / Procedures Referred By Contact Refer red To Contact Radiology Diagnoses Metastatic urothelial carcinoma Alberto Bhatia MD [facility] Rad Nuclear Med Procedures NM PET CT Skull Base to Mid-thigh [facility] HEMATOLOGY/[place] [address] [place] [address] Referral ID Status Reason Start Date Expiration Date Visits V isits Requested Authorized [id number] Closed Specialty 09/30/2021 10/29/2021 1 1 Service Requested Encounter Details Date Type Department Care Team Description 09/21/2021 Office Visit Hematology/Oncology Rah Bhatia MD [facility] HEMATOLOGY/[place] [address] Metastatic urothelial carcinoma (Primary Dx[facility] [address] [place] [address] DR MEDICAL ONCOLOGY [place], [place] [id number] Encounter for antineoplastic chemotherap y and immunotherapy; [address] [place] [address] [place] [address] Social History Tobacco Use Types Packs/Day Years [...] Taken Comments Blood Pressure - - Pulse 70 09/21/2021 12:57 PM EDT Temperature 36.7 ??C (98 ??F) 09/21/2021 12:57 PM EDT Respiratory Rate 16 09/21/2021 12:57 PM EDT Oxygen Saturation 98% 09/21/2021 12:57 PM EDT Inhaled Oxygen Concentration - - Weight 96.2 kg (212 lb) 09/21/2021 12:57 PM EDT Height 161.3 cm (5' 3.5) 09/21/2021 12:57 PM EDT Body Mass Index 36.96 09/21/2021 12:57 PM EDT documented in this encounter Progress Notes Alberto Bhatia MD - 09/21/2021 1:00 PM EDT Images from the original [...] nodes on January 22 at [facility]. Pathology is pending. PET scan demonstrated [...] Lovenox and and antibiotics with ciprofloxacin. INTERVAL history(09/21/21):- Nancy returns to the [facility] today to follow-up on metastatic urothelial carcinoma and continuation of adjuvant immunotherapy nivolumab..She is accompanied by her today. She still complains on pain in her hips and knees. Feels tired most of the time. She is working with occupational therapy and physical therapy. Pain medication prescribed by her primary care physician. She noticed skin rash initially itchy but now not itchy. Use hydrocortisone cream topically. Overwise, she feels at her baseline no nausea, vomiting, constipation or diarrhea. No other focal complaints today. No hematuria or dysuria. . PMH: Completed antibiotics for UTI about a week ago. 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 Finalpathology- [id number] High grade UCC with negative margins UTI E. coli 100,000 colonies PTSD/depression, diabetes mellitus on insulin, arthritis, , hernia repair x3, anxiety, hysterectomy for urinary incontinence 2 to 3 years ago Social History: No interval changes since last visit [id number] smoking history, quit 6 months ago, does [...] dressing Medications: Your Medications Accurate as of September 21, 2021 1:03 PM. If you have any questions, ask [...] HYDROcodone-acetaminophen 5-325 mg Tab Commonly known as: [place] TAKE ONE TABLET BY MOUTH THREE TIMES [...] Thought content normal. Judgment: Judgment normal. Pulse 70 Temp 36.7 ??C (98 ??F) (Temporal) Resp 16 Ht 161.3 cm (5' 3.5) Wt 96.2 kg (212 lb) SpO2 98% BMI 36.96 kg/m?? Wt Readings from Last 3 Encounters: 09/21/21 96.2 kg (212 lb) 08/24/21 95.4 kg (210 lb 6.4 oz) 07/27/21 95.7 kg (211 lb) Pathology: 06/16/21 ADDENDUM DISCUSSION PAS and BMS stains were evaluated for Block A17, demonstrating nodular ??glomerulosclerosis. Electronically signed by: ?MD Thorne Jason R. Verified: ??06/24/2021 11:01 ??Pathologist Performed at: ??-[facility] Dept. of Pathology, [place], [place] ? Surgical Pathology DIAGNOSIS Right kidney and ureter with paracaval and intracaval lymph nodes, excision: ??- Urothelial carcinoma. ?? (See SYNOPTIC REPORT), invasive into ? perinephric fat and renal parenchyma. 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 Electronically signed by: ?MD Thorne Jason R. Verified: ??06/24/2021 10:58 ??Pathologist Performed at: ??-[facility]??Dept. of Pathology, [place], [place] SYNOPTIC Specimen ?Procedure: ??Nephroureterectomy ?Specimen Laterality: [...] carcinoma with superimposed abundant degenerative changes Labs: 09/21/21 sodium 138, potassium 5.3, BUN 52, [...] TB 0.3, AST 14, ALT 35, alkaline [id number], total protein 7.7, albumin 2.8, 04/09/2021 UA [...] restage her in September with PET scan. 09/21/21 Nancy tolerates nivolumab reasonably well with some fatigue and skin rash. We will proceed with cycle 3 today. I plan to restage her with PET scan prior fourth cycle of adjuvant nivolumab. # CHF: Follows with Dr. Ebony Beckham, [...] 480 mg IV in 4 weeks. 2. PET scan prior next visit 3. Next visit in 4 weeks with CBC, CMP, TSH, free T4 and fourth cycle of nivolumab Nancy voiced understanding of [...] Oncology 10/21/2022 Hospital Encounter Radiology Adilene Link, [employer] [address] [place] [address] [place] [address] (Wo rk) 10/21/2022 Appointment Radiology Adilene Link[address] [place] [address] (Wo rk) 10/21/2022 Appointment Radiology Adilene Link[address] [place] [address] (Wo rk) 10/25/2022 Office Visit Hematology and Oncology Alberto Guy MD [facility] DR HEMATOLOGY/[place] [address] MEDICAL ONCOLOGY [place], [place] [id number] 11/09/2022 Office Visit Urology Bobo Davis MD [facility] UROLOGY [place], [place] [address] (Wo rk) documented as of this encounter Results NM PET CT Skull Base to Mid-thigh (10/15/2021 10:23 AM EST) Anatomical Region Laterality Modality Positron Emission To mography (PET) Specimen (Source) Anatomical Location Collection Method / Collectio n Time Received Time / Laterality Volume Impressions 10/15/2021 1:35 PM EST 1. ??Interval nephrectomy. 2. ??Interval resolution of hypermetabol ic lymphadenopathy. 3. ??New hypermetabolic sclerotic lesion s and L5-S1 are concerning for skeletal metastases. Thank you for letting us participate in the care of this patient. ??If you are a health care provider and have any questi ons regarding this report, please contact the number below. ??For patients who have questions please contact the health child care director that requested your imaging first. ? Electronically signed by: Autumn Thornton, [facility] ([phone]), at 10/15/2021 1:35 PM Narrative 10/15/2021 1:35 PM EST EXAMINATION: NM PET CT STANDARD SKULL BASE TO MID-THIGH CLINICAL HISTORY: Urologic cancer, asses s treatment response - Include more detail below Restaging of metastatic urothelial carci noma TECHNIQUE: Following IV injection of 18- gcsusq-2-wcgosfkdxort (FDG) a standard uptake of approximately 60 minutes, a no ncontrast CT scan followed by a PET scan were acquired from the base of the skull to mid thighs. The noncontrast CT was used for anatomic localization and photo n attenuation correction of the PET scan. Blood glucose level: 95 (mg/dL) FDG dose: 9.6 mCi COMPARISON: October 15, 2021 FINDINGS: HEAD/NECK: Normal activity in all soft tissue regio ns of the neck and visualized lower head. Previously noted cervical lymphade nopathy is no longer present. A focal area of decreased attenuation in the right thyroid lobe is not hypermetabolic and has not changed. The most likely causes for this are cyst and adenoma. CHEST: The previously seen hypermetabolic axill abdiel lymphadenopathy has resolved. There is a small unchanged pericardial e ffusion. Coronary artery calcification is present. ABDOMEN/PELVIS: There has been an interval right nephrec estee. There is no evidence of residual hypermetabolic tumor. There is no hyperm etabolic lymphadenopathy. There is no abnormal activity associated with the bl adder. Again seen are multiple focal areas of i ncreased FDG activity in the subcutaneous tissues of the anterior abd ominal wall, most consistent with medication administration. SKELETON/EXTREMITIES: There is a hypermetabolic focal area of sclerosis in the upper sacrum. It is larger in size than seen previously and the increased FDG activity is new. There is a new focal area of hypermetabolic sc lerosis in the left side of the L5 vertebral body. Procedure Note Geraldo Levine MD - 10/15/2021 EXAMINATION: NM PET CT STANDARD SKULL BA SE TO MID-THIGH CLINICAL HISTORY: Urologic cancer, asses s treatment response - Include more detail below Restaging of metastatic urothelial carci noma TECHNIQUE: Following IV injection of 18- oqshlq-6-iuudtzavaeuj (FDG) a standard uptake of approximately 60 minutes, a no ncontrast CT scan followed by a PET scan were acquired from the base of the skull to mid thighs. The noncontrast CT was used for anatomic localization and photo n attenuation correction of the PET scan. Blood glucose level: 95 (mg/dL) FDG dose: 9.6 mCi COMPARISON: October 15, 2021 FINDINGS: HEAD/NECK: Normal activity in all soft tissue regio ns of the neck and visualized lower head. Previously noted cervical lymphade nopathy is no longer present. A focal area of decreased attenuation in the right thyroid lobe is not hypermetabolic and has not changed. The most likely causes for this are cyst and adenoma. CHEST: The previously seen hypermetabolic axill abdiel lymphadenopathy has resolved. There is a small unchanged pericardial e ffusion. Coronary artery calcification is present. ABDOMEN/PELVIS: There has been an interval right nephrec estee. There is no evidence of residual hypermetabolic tumor. There is no hyperm etabolic lymphadenopathy. There is no abnormal activity associated with the bl adder. Again seen are multiple focal areas of i ncreased FDG activity in the subcutaneous tissues of the anterior abd ominal wall, most consistent with medication administration. SKELETON/EXTREMITIES: There is a hypermetabolic focal area of sclerosis in the upper sacrum. It is larger in size than seen previously and the increased FDG activity is new. There is a new focal area of hypermetabolic sc lerosis in the left side of the L5 vertebral body. IMPRESSION 1. Interval nephrectomy. 2. Interval resolution of hypermetabolic lymphadenopathy. 3. New hypermetabolic sclerotic lesions and L5-S1 are concerning for skeletal metastases. Thank you for letting us participate in the care of this patient. If you are a health care provider and have any questi ons regarding this report, please contact the number below. For patients w ho have questions please contact the health child care director that requested your imaging first. 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
--- OUTSIDE RECORDS SUMMARY | 2022-10-07 18:39 | XMS_ITS | Encounter Summary ---
:1955 Author Organization [facility] [address] Care Team Providers Name Role Phone Derek Torres Primary Care Provider Encounter Details Date Type Department Care Team Description 09/30/2021 Telephone Hematology/Oncology at Barb Pichardo RN [address] [phone] Social History Tobacco Use Types Packs/Day Years Used Date Former Smoker Cigarettes 0.25 0 Quit: 06/2020 Smokeless Tobacco: Never Used Alcohol Use Standard Drinks/Week Comments Not Currently 0 (1 standard drink = 0.6 oz pure alcoho l) Sex Assigned at Date Recorded Not on file documented as of this encounter Miscellaneous Notes Telephone Encounter - Barb Dennis RN - 09/30/2021 12:[address] Bhatia reviewed pt's labs from yesterday. Potassium up to 5.6 he would like pt to hold losartan and follow up with PCP again. Pt is to push fluids like water, popsiciles, bouillon base soups, watermelon. She will see PCP tomorrow to discuss her high potassium and losartan. She will have repeat cmp next Monday. Dr. Bhatia does not think nivolumab is causing her aches in muscles and joints, it may be activating some underlying condition that may cause the aching. He does not see anything in her labs that are concerning to him for her tiredness. Pt is happy to hear this and states her aches are not hurting as much today. She will get labs in a week. documented in this encounter Plan of Treatment Upcoming Encounters Date Type Specialty Care Team Description 10/21/2022 Appointment Hematology and Oncology 10/21/2022 Hospital Encounter Radiology Adilene Link[address] ONCOLOGY [place], [place] [address] [phone] (Wo rk) 10/21/2022 Appointment Radiology Adilene Link[address] ONCOLOGY [place], [place] [address] (Wo rk) 10/21/2022 Appointment Radiology Adilene Link[address] ONCOLOGY [facility] [place] [address] [phone] (Wo rk) 10/25/2022 Office Visit Hematology and Oncology Alberto Guy MD [facility] DR HEMATOLOGY/[place] [address] [address] ONCOLOGY [place], [place] [phone] 11/09/2022 Office Visit Urology Bobo Davis MD [facility] DR UROLOGY [place], [place] [address] (Wo rk) documented as of this encounter Visit Diagnoses Not on filedocumented in this encounter Care Teams Packaging Mechanic Relationship Specialty Start Date End Date Derek Torres PA PCP - General Internal Medicine 06/07/21 Mahnaz [address]LS[address] [place], [place] [address] documented as of this encounter
--- OUTSIDE RECORDS SUMMARY | 2022-10-07 18:39 | XMS_ITS | Encounter Summary ---
:1955 [place] [address] Care Team Providers Name Role Phone Derek Torres Primary Care Provider Encounter Details Date Type Department Care Team Description 07/27/2021 Office Visit Hematology/Oncology Alberto Bhatia Hi risk medication use; at [facility] Metastatic urothelial carcinoma [address] [place] [phone] HEMATOLOGY/ONCOLOG [phone] [place], [place] [address] Social History Tobacco Use Types Packs/Day Years Used Date Former Smoker Cigarettes 0.25 0 Quit: 06/2020 Smokeless Tobacco: Never Used Alcohol Use Standard Drinks/Week Comments Not Currently 0 (1 standard drink = 0.6 oz pure alcoho l) Sex Assigned at Date Recorded Not on file documented as of this encounter Progress Notes Alberto Bhatia MD - 07/27/2021 11:30 AM EDT Images from the original [...] retroperitoneal lymph nodes on January 22 at [facility]. Pathology is pending. PET scan demonstrated increased [...] Lovenox and and antibiotics with ciprofloxacin. INTERVAL history(07/27/21):- Nancy returns to the [facility] today for urothelial carcinoma of right kidney and adjuvant nivolumab infusion. Nancy complains on back pain/ nerve pain after surgery. She is working with physical therapist. Pain medication prescribed by her primary care physician. Overwise, she feels at her baseline no nausea, vomiting, constipation or diarrhea. She is still having intermittent arthralgias. No other focal complaints today. No hematuria or dysuria. PMH: No interval changes since last visit Right nephroureterectomy on June 16 UTI E. coli 100,000 colonies PTSD/depression, diabetes mellitus on insulin, arthritis, , hernia repair x3, anxiety, hysterectomy for urinary incontinence 2 to 3 years ago Social History: 03-lsco-mspc smoking history, quit 6 months ago, does not drink alcohol, she has a daughter Family History: Mother had spinal cancer at age of 43, aunt had breast cancer Allergies: Allergies Allergen Reactions ??? Atorvastatin Calcium CIS - leg pain, [...] dressing Medications: Your Medications Accurate as of July 27, 2021 11:59 AM. If you have any questions, ask [...] 2 times daily. 20 mg Refills: 0 gabapentin 600 mg Tab Commonly known as: NEURONTIN Take 600 mg by mouth 3 times daily. 600 mg Refills: 0 humaLOG KwikPen Inpn INJECT SUBCUTANEOUSLY PER SLIDING SCALE THREE TIMES A DAY BEFORE MEALS 101TO 150 2 UNITS 151 TO 200 4 UNITS 201 TO 250 6 UNITS 251 TO 3 Generic drug: insulin lispro Refills: 0 HYDROcodone-acetaminophen 5-325 mg Tab Commonly known as: [place] TAKE ONE TABLET BY MOUTH THREE TIMES A DAY NEEDED FOR PAIN Refills: 0 Insulin Tresiba FlexTouch U-100 100 unit/mL (3 mL) Inpn Inject 58 Units subcutaneously daily. Generic drug: insulin degludec 58 Units Refills: 0 metoprolol tartrate 25 mg Tab [...] enema Refills: 0 Review of Systems Constitutional: Positive for appetite change. Negative for chills and fever. Eyes: Negative for icterus. Respiratory: Negative for cough. Positive for SOB. Cardiovascular: Negative for chest pain. Positive for LE swelling.Wearing support hose. Genitourinary: Negative for difficulty urinating and hematuria. Negative for incontinence. GI: Positive for burning in esophagus after treatments. Musculoskeletal: Generalized myalgias. Hematological: Negative for adenopathy. Positive for bruising after lovenox injections. Hematoma in right abdomen. OBJECTIVE: Physical Exam Constitutional: Appearance: Normal appearance. She is not toxic-appearing. Ambulating with a walker. HENT: Head: Normocephalic. Mouth/Throat: Mouth: Mucous membranes are moist. Pharynx: Oropharynx is clear. No oropharyngeal exudate. Eyes: General: No scleral icterus. Conjunctiva/sclera: Conjunctivae normal. Cardiovascular: Rate and Rhythm: Normal rate and regular rhythm. Pulses: Normal pulses. Pulmonary: Effort: Pulmonary effort is normal. Lungs are clear. Abdominal: General: Bowel sounds are normal. There is no distension. Palpations: There is no mass. 3x3 cm Hematoma on right side of abdomen at injection site. Musculoskeletal: Right lower le+ edema Left lower le+ edema. Lymphadenopathy: Cervical: No cervical adenopathy. Skin: General: Skin is warm. Positive for several large ecchymotic areas on her abdomen. Neurological: General: No focal deficit present. Mental Status: She is alert. Psychiatric: Mood and Affect: Mood normal. Thought Content: Thought content normal. Judgment: Judgment normal. There were no vitals taken for this visit. Wt Readings from Last 3 Encounters: 07/06/21 96.1 kg (211 lb 12.8 oz) 06/24/21 100.8 kg (222 lb 3.2 oz) 06/23/21 96.6 kg (212 lb 15.4 oz) Pathology: 06/16/21 ADDENDUM DISCUSSION PAS and BMS stains were evaluated for Block A17, demonstrating nodular ??glomerulosclerosis. Electronically signed by: ?MD Thorne Jason R. Verified: ??06/24/2021 11:01 ??Pathologist Performed at: ??-[facility] Dept. of Pathology, [place], [place] ? Surgical Pathology DIAGNOSIS Right kidney and ureter with paracaval and intracaval lymph nodes, excision: ??- Urothelial carcinoma. ?? (See SYNOPTIC REPORT), invasive into ? perinephric fat and renal parenchyma. 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 Electronically signed by: ?MD Thorne Jason R. Verified: ??06/24/2021 10:58 ??Pathologist Performed at: ??-[facility]??Dept. of Pathology, [place], [place] SYNOPTIC Specimen ?Procedure: ??Nephroureterectomy ?Specimen Laterality: [...] carcinoma with superimposed abundant degenerative changes Labs: 07/27/2021 sodium 139, potassium 5.2, BUN 64, [...] TB 0.3, AST 14, ALT 35, alkaline [id number], total protein 7.7, albumin 2.8, 04/09/2021 UA [...] day 1 and 8 -06/16/21 right nephroureterectomy Ms. Pichardo has new diagnosis of metastatic urothelial carcinoma of right kidney metastatic to retroperitoneal lymph nodes. She developed right-sided hydronephrosis and kidney failure with creatinine of 1.7. Her creatinine is improving after right ureteral stent placement, but it has not been gotten to b aseline yet. She is symptomatic with gross hematuria and vague right flank/side pain and discomfort. Feels very tired. She has comorbidities including diabetes mellitus on insulin and hypertension. Prognosis of metastatic urothelial carcinoma with median overall survival around a year and a half was discussed. She was referred to our urologist to discuss surgical option particularly right nephroureterectomy. Nancy was admitted to [facility] with CHF exacerbation/pulmonary edema, decompensated diabetes and superficial phlebitis of right cephalic vein after completion of 2 cycles of chemotherapy Work-up was negative for deep venous thrombosis or pulmonary embolism. There was mild pericardial effusion on echocardiogram with normal LV function and moderate pericardial effusion on CT scan. She susi diuretics, with significant clinical improvement. We will hold off Mediport placement until we decide on continuation of chemo. She completed treatment with nitrofurantoin for UTI E. coli. Restaging PET scan demonstrates decrease in size of known right upper tract urothelial carcinoma tumor, residual tumor difficult to evaluate secondary to normally excreted activity within the collecting system. No suspected residual active champ metastases. She had good partial response/near complete response to chemotherapy with carboplatin and gemcitabine. Scheduled for nephroureterectomy on June 16. We will see her back in 3 weeks after surgery to decide about adjuvant immunotherapy treatment. Mrs. Pichardo underwent right nephroureterectomy on June 16. Pathology revealed T3 high-grade urothelial carcinoma with 17 - lymph nodes and? Small tumor deposits around renal pelvis. She is at high risk of cancer recurrence. We discussed results of clinical phase 3 trial with adjuvant nivolumab presented in December 2020 on symposium. In a phase 3, multicenter, double-blind, randomized, controlled trial, we assigned patients with muscle-invasive urothelial carcinoma who had undergone radical surgery to receive, in a 1:1 ratio, either nivolumab (240 mg intravenously) or placebo every 2 weeks for up to 1 year. Neoadjuvant cisplatin-based chemotherapy before trial entry was allowed. The primary end points were disease-free survival among all the patients (ppxsmiyws-om-yebmr population) and among patients with a tumor programmed ligand 1 (PD-L1) expression level of 1% or more. Survival free from recurrence outside the urothelial tract was a secondary end point. RESULTS A total of 353 patients were assigned to receive nivolumab and 356 to receive placebo. The median disease-free survival in the ofunusmri-dz-xyzib population was 20.8 months (95% confidence interval [CI], 16.5 to 27.6) with nivolumab and 10.8 months (95% CI, 8.3 to 13.9) with placebo. The percentage ofpatients who were alive and disease-free at 6 months was 74.9% with nivolumab and 60.3% with placebo(hazard ratio for disease recurrence or , 0.70; 98.22% CI, 0.55 to 0.90; P<0.001). Among patients with a PD-L1 expression level of 1% or more, the percentage of patients was 74.5% and 55.7%, respectively (hazard ratio, 0.55; 98.72% CI, 0.35 to 0.85; P<0.001). The median survival free from recurrence outside the urothelial tract in the wpwymgdwk-df-prfqr population was 22.9 months (95% CI, 19.2 to 33.4) with nivolumab and 13.7 months (95% CI, 8.4 to 20.3) with placebo. The percentage of patients who were alive and free from recurrence outside the urothelial tract at 6 months was 77.0% with nivolumab and 62.7% with placebo (hazard ratio for recurrence outside the urothelial tract or , 0.72; 95% CI, 0.59 to 0.89). Among patients with a PD-L1 expression level of 1% or more, the percentage of patients was 75.3% and 56.7%, respectively (hazard ratio, 0.55; 95% CI, 0.39 to 0.79). Treatment-related adverse events of grade 3 or higher occurred in 17.9% of the nivolumab group and 7.2% of the placebo group. Two treatment-related deaths due to pneumonitis and one treatment-related due to bowel perforation were noted in the nivolumab group. CONCLUSIONS In this trial involving patients with high-risk muscle-invasive urothelial carcinoma who had undergone radical surgery, disease-free survival was longer with adjuvant nivolumab than with placebo in indbjnaggsjx-ai-ygjuo population and among patients with a PD-L1 expression level of 1% or more. We discussed side effects of nivolumab which occlude but not limited to fatigue, skin rash, itching,immune mediated thyroiditis, hepatitis, pneumonitis, colitis. All questions were answered to patient satisfaction. She is interested to proceed with nivolumab. Informed verbal consent was obtained. We will start treatment today. I will plan to restage her with PET scan in about 2 months # CHF: Follows with Dr. Ebony Beckham, had stress test on April 01, 2021 technically suboptimal, but no definite myocardial ischemia or evidence of prior infarction. EF 63% #Anemia: Most likely secondary to chemotherapy/myelosuppression. Kidney insufficiency could contribute to anemia as well. We will check her ferritin and folic acid level next blood work # Gastric reflux/burning- Continue omeprazole, TUMS or Pepcid. Try taking prochlorperazine on Day 2,3 and 4 after treatment. #Frequent UTI: Resolved. One day of po Cipro left. #Right hydronephrosis: Creatinine is 1.2, stable Creatinine 1.4-1.7, status post right ureteral stent placement: December 23. # Anticoagulation- .Continue Eliquis 2.5mg po twice daily. #LFTs- normalized today. PLAN: 1. Adjuvant nivolumab 480 mg IV today 2. Next visit in 3 weeks with CBC, CMP, TSH, free T4 and second cycle of nivolumab Nancy voiced understanding of the plan and was given an opportunity to ask questions which I answered to the best of my ability. Nancy Understands she can call the clinic between visits with any questions/concerns or new symptoms. documented in this encounter Plan of Treatment Upcoming Encounters Date Type Specialty Care Team Description 10/21/2022 Appointment Hematology and Oncology 10/21/2022 Hospital Encounter Radiology Adilene Link [address] ONCOLOGY [place], [place] [phone] (Wo rk) 10/21/2022 Appointment Radiology Adilene Link [address] [place] [address] (Wo rk) 10/21/2022 Appointment Radiology Adilene Link [address] [place] [address] (Wo rk) 10/25/2022 Office Visit Hematology and Oncology Alberto Guy MD [facility] DR HEMATOLOGY/[place] [address] Ad[address]ene [address]n [address] [place] [address] 11/09/2022 Office Visit Urology Bobo Davis MD [facility] DR UROLOGY [place], [place] [address] (Wo rk) documented as of this encounter Visit Diagnoses Diagnosis High risk medication use Encounter for long-term (current) use of other medications Metastatic urothelial carcinoma 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
--- OUTSIDE RECORDS SUMMARY | 2022-10-07 18:39 | XMS_ITS | Encounter Summary ---
:1955 Author Organization [facility] Address [address] [address] Care Team Providers Name Role Phone Derek Torres Primary Care Provider Encounter Details Date Type Department Care Team Description 09/17/2021 [facility] [place] [facility] [address] [place] [phone] Social History Tobacco Use Types Packs/Day Years Used Date Former Smoker Cigarettes 0.25 0 Quit: 06/2020 Smokeless Tobacco: Never Used Alcohol Use Standard Drinks/Week Comments Not Currently 0 (1 standard drink = 0.6 oz pure alcoho l) Sex Assigned at Date Recorded Not on file documented as of this encounter Miscellaneous Notes Telephone Encounter - Hattie Anders RN - 09/17/2021 1:20 PM EDT Received call from patient who is scheduled to have COVID booster today. Reports that she completed antibiotics for UTI 3-4 days ago. She is scheduled for Nivolumab for Met. Urothelial CA on Friday 09/21. She wonders if it is ok to get Booster today. Consulted with Adilene Link APRN and ok to have Booster vaccine today. Patient notified. documented in this encounter Plan of Treatment Upcoming Encounters Date Type Specialty Care Team Description 10/21/2022 Appointment Hematology and Oncology 10/21/2022 Hospital Encounter Radiology Adilene Link APRN [address] [place] [address] [place] [address] (Wo rk) 10/21/2022 Appointment Radiology Adilene Link[address] [place] [address] (Wo rk) 10/21/2022 Appointment Radiology Adilene Link[address] [place]COLOGY [place], [place] [address] (Wo rk) 10/25/2022 Office Visit Hematology and Oncology Alberto Guy MD [facility] HEMATOLOGY/[place] [address] [address] MEDICAL ONCOLOGY [place], [place] [phone] 11/09/2022 Office Visit Urology Bobo Davis MD [facility] UROLOGY [place], [place] [address] (Wo rk) documented as of this encounter Visit Diagnoses Not on filedocumented in this encounter Care Teams Bronzer Relationship Specialty Start Date End Date Derek Torres PA PCP - General Internal Medicine 06/07/21 Mahnaz CARLSON [address] [place], [place] [address] documented as of this encounter
--- OUTSIDE RECORDS SUMMARY | 2022-10-07 18:39 | XMS_ITS | Encounter Summary ---
:1955 Author Organization [facility] [place] [address] Care Team Providers Name Role Phone Derek Torres Primary Care Provider Encounter Details Date Type Department Care Team Description 07/09/2021 [facility] [address] [phone] Social History Tobacco Use Types Packs/Day Years Used Date Former Smoker Cigarettes 0.25 0 Quit: 06/2020 Smokeless Tobacco: Never Used Alcohol Use Standard Drinks/Week Comments Not Currently 0 (1 standard drink = 0.6 oz pure alcoho l) Sex Assigned at Date Recorded Not on file documented as of this encounter Progress Notes Candace Gonzales RN - 07/09/2021 10:58 AM EDT Called Nancy back pre her request. Patient answered phone frantically, with rapid speech. States sheis having worsening hip pain, which Dr. Torres prescribed Audubon for. States the pain is similar towhen she broke her hip and states she needs a prescription for Audubon and wheelchair. Patient stated that her primary is on vacation and wants Dr. Bhatia's office to reorder the medication for her. Discussed that she really should be seen and evaluated in the ED especially if she cannot walk. Patient refused to go to the Emergency Room because they would keep her. All I need is medication and a wheelchair. Discussed that Dr Bhatia did not prescribe the medicaiton, so she needed to follow up with the provider who did. Patient hung up the phone. Called PCP office to discuss patient. Left voicemail with concerns for RN. documented in this encounter Plan of Treatment Upcoming Encounters Date Type Specialty Care Team Description 10/21/2022 Appointment Hematology and Oncology 10/21/2022 Hospital Encounter Radiology Adilene Link[address] ONCOLOGY [place], [place] [address] (Wo rk) 10/21/2022 Appointment Radiology Adilene Link[address] [place]COLOGY [place], [place] [address] [phone] (Wo rk) 10/21/2022 Appointment Radiology Adilene Link[address] [place]OGY [place], [place] [phone] (Wo rk) 10/25/2022 Office Visit Hematology and Oncology Alberto Guy MD [facility] DR HEMATOLOGY/[place] [address] [address] ONCOLOGY [place], [place] [address] 11/09/2022 Office Visit Urology Bobo Davis MD [facility] DR UROLOGY [place], [place] [address] (Wo rk) documented as of this encounter Visit Diagnoses Not on filedocumented in this encounter Care Teams Shirt Trimmer Relationship Specialty Start Date End Date Derek Torres PA PCP - General Internal Medicine 06/07/21 Mahnaz CARLSON [address] [place] [phone] documented as of this encounter
--- OUTSIDE RECORDS SUMMARY | 2022-10-07 18:39 | XMS_ITS | Encounter Summary ---
:1955 Author Organization [facility] [place] [address] Care Team Providers Name Role Phone Derek Torres Primary Care Provider Encounter Details Date Type Department Care Team Description 10/27/2021 Ancillary Procedure Radiology Library at Linsey Torres [facility] [place] [address] [phone] [place], [place] [phone] (Wo rk) Social History Tobacco Use Types [...] 10/21/2022 Hospital Encounter Radiology Adilene Link APRN [address] [place] [address] DR MEDICAL ONCOLOGY [place], [place] [phone] (Wo rk) 10/21/2022 Appointment Radiology Adilene Link [address] MEDICAL ONCOLOGY [place], [place] [phone] (Wo rk) 10/21/2022 Appointment Radiology Adilene Link [address] MEDICAL ONCOLOGY [place], [place] [phone] (Wo rk) 10/25/2022 Office Visit Hematology and Oncology Alberto Guy MD [facility] DR HEMATOLOGY/[place] [address] Adilene Link, [address] MEDICAL ONCOLOGY [place], [place] [phone] 11/09/2022 Office Visit Urology Bobo Davis MD [facility] UROLOGY [place], [place] [address] (Wo rk) documented as of this encounter Procedures Procedure Name Priority Date/Time Associated Comments Diagnosis FILM LIBRARY STORAGE Routine 10/27/2021 12:00 AM Results for this ONLY ULTRASOUND EST procedure ar e in STUDY the results section. documented in this encounter Results Film Library- Storage Only Ultrasound Study (10/27/2021 12:00 AM EST) Specimen (Source) Anatomical Location Collection Method / Collectio n Time Received Time / Laterality Volume Narrative RAD - 10/28/2021 2:40 PM EST This exam is auto-finalizing. It's purpo se is for storage only. Derek ESTRELLA IMShantel FILM LIBRARY ORDERABLES Performing Organization Address City/State/ZIP Code Phon e Number [place], [place] documented in this encounter Visit Diagnoses Not on filedocumented in this encounter Care Teams High Speed Operator Relationship Specialty Start Date End Date Derek Torres PA PCP - General Internal Medicine 06/07/21 Mahnaz CARLSON [address] [place], [place] [address] documented as of this encounter
--- OUTSIDE RECORDS SUMMARY | 2022-10-07 18:39 | XMS_ITS | Encounter Summary ---
:1955 Author Organization [facility] [address] Care Team Providers Name Role Phone Derek Torres Primary Care Provider Reason for Referral Diagnostic Test (Routine) - Closed Specialty Diagnoses / Procedures Referred By Contact Refer red To Contact Radiology Diagnoses Metastatic urothelial carcinoma Alberto Bhatia MD [facility] Rad Nuclear Med Procedures NM PET CT Skull Base to Mid-thigh [facility] HEMATOLOGY/[place] [address] [place] [address] Referral ID Status Reason Start Date Expiration Date Visits V isits Requested Authorized [id number] Closed Specialty 09/30/2021 10/29/2021 1 1 Service Requested Reason for Visit Diagnostic Test (Routine) - Closed Specialty Diagnoses / Procedures Referred By Contact Refer red To Contact Radiology Diagnoses Metastatic urothelial carcinoma Alberto Bhatia MD [facility] Rad Nuclear Med Procedures NM PET CT Skull Base to Mid-thigh [facility] HEMATOLOGY/[place] [address] [place] [address] Referral ID Status Reason Start Date Expiration Date Visits V isits Requested Authorized [id number] Closed Specialty 09/30/2021 10/29/2021 1 1 Service Requested Encounter Details Date Type Department Care Team Description 10/15/2021 Hospital Encounter Nuclear Medicine at [facility] Ebony Dominguez MD urothelial carcinoma [facility] SHIVANI Powers HEMATOLOGY/ONCOL [address] OGY [phone] SHIVANI SCHMIDT [id number] Social History Tobacco Use Types Packs/Day Years [...] TAKE ONE TABLET BY 0 06/2803/15/2022 hen ([place]) 5-325 mg MOUTH THREE TIMES A Tablet [...] Oncology 10/21/2022 Hospital Encounter Radiology Adilene Link[address] MEDICAL ONCOLOGY [place], [place] [address] (Wo rk) 10/21/2022 Appointment Radiology Adilene Link[address] [place] [address] (Wo rk) 10/21/2022 Appointment Radiology Adilene Link[address] ONCOLOGY [place], [place] [address] (Wo rk) 10/25/2022 Office Visit Hematology and Oncology Alberto Guy MD [facility] HEMATOLOGY/[place] [address] [address] MEDICAL ONCOLOGY [place], [place] [address] [phone] 11/09/2022 Office Visit Urology Bobo Davis MD [facility] [address] [place], [place] [address] (Wo rk) documented as of [...] who have questions please contact the health rn care transition that requested your imaging first. ? Narrative 10/15/2021 1:35 PM EST EXAMINATION: NM PET CT STANDARD SKULL BASE TO MID-THIGH CLINICAL HISTORY: Urologic cancer, asses s treatment response - Include more detail below Restaging of metastatic urothelial carci noma TECHNIQUE: Following IV injection of 18- ysejld-3-oyrwzfouagmj (FDG) a standard uptake of approximately 60 [...] noma TECHNIQUE: Following IV injection of 18- pncfkf-0-tinewhpcqivs (FDG) a standard uptake of approximately 60 [...] ho have questions please contact the health rn care transition that requested your imaging first. Electronically signed by: Autumn Thornton, 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 documented in this encounter Administered Medications Inactive Administered Medications - up to 3 most recent administrations Medication Order MAR Action Action Date Dose Rate Site fludeoxyglucose (F-18) FDG Given 10/15/2021 9:12 AM 9.6 mCi Left Arm injection 0-20 mCi EST 0-20 mCi, Intravenous, ONCE PRN, 1 dose, Starting on Mon10/15/21 at 0917, Until Mon10/15/21 at 0912, Per Protocol, Radiology Contrast, Routine documented in this encounter Care Teams Foam Machine Operator Relationship Specialty Start Date End Date Derek Torres PA PCP - General Internal Medicine 06/07/21 [address] [place] [address] documented as of this encounter
--- OUTSIDE RECORDS SUMMARY | 2022-10-07 18:39 | XMS_ITS | Encounter Summary ---
:1955 Author Organization [facility] [place] [address] Care Team Providers Name Role Phone Derek Torres Primary Care Provider Encounter Details Date Type Department Care Team Description 10/27/2021 Ancillary Procedure Radiology Library at Linsey Torres [facility] [place] [address] [address] [place], [place] [phone] (Wo rk) Social History Tobacco Use Types [...] 10/21/2022 Hospital Encounter Radiology Adilene Link APRN [address] [place] [address] DR MEDICAL ONCOLOGY [place], [place] [phone] (Wo rk) 10/21/2022 Appointment Radiology Adilene Link [address] MEDICAL ONCOLOGY [place], [place] [phone] (Wo rk) 10/21/2022 Appointment Radiology Adilene Link [address] MEDICAL ONCOLOGY [place], [place] [phone] (Wo rk) 10/25/2022 Office Visit Hematology and Oncology Alberto Guy MD [facility] DR HEMATOLOGY/[place] [address] Adilene Link, [address] MEDICAL ONCOLOGY [place], [place] [phone] 11/09/2022 Office Visit Urology Bobo Davis MD [facility] UROLOGY [place], [place] [address] (Wo rk) documented as of this encounter Procedures Procedure Name Priority Date/Time Associated Diagnosis Comme nts FILM LIBRARY Routine 10/27/2021 12:05 AM Results for this STORAGE ONLY DX EST procedure ar e in CHEST the results section. documented in this encounter Results Film Library- Storage Only DX Chest (10/27/2021 12:05 AM EST) Specimen (Source) Anatomical Location Collection Method / Collectio n Time Received Time / Laterality Volume Narrative DH RAD - 10/28/2021 2:42 PM EST This exam is auto-finalizing. It's purpo se is for storage only. Derek ESTRELLA Shantel FILM LIBRARY ORDERABLES Performing Organization Address City/State/ZIP Code Phon e Number [place], [place] documented in this encounter Visit Diagnoses Not on filedocumented in this encounter Care Teams Program Clerk Relationship Specialty Start Date End Date Derek Torres PA PCP - General Internal Medicine 06/07/21 [address] [place], [place] [address] documented as of this encounter
--- OUTSIDE RECORDS SUMMARY | 2022-10-07 18:39 | XMS_ITS | Encounter Summary ---
:1955 [place] [address] Care Team Providers Name Role Phone Derek Torres Primary Care Provider Encounter Details Date Type Department Care Team Description 10/22/2021 Notes Only Radiology at [facility] Candice Brewster [place] [facility] [place] [id number] DIAGNOSTIC RADIOLOGY [phone] [place], [place] [address] (Wo rk) Social History Tobacco Use Types Packs/Day Years Used Date Former Smoker Cigarettes 0.25 0 Quit: 06/2020 Smokeless Tobacco: Never Used Alcohol Use Standard Drinks/Week Comments Not Currently 0 (1 standard drink = 0.6 oz pure alcoho l) Sex Assigned at Date Recorded Not on file documented as of this encounter H&P Notes Candice Brewster MD - 10/22/2021 3:57 PM ESTSummary: CT guided bone biopsy Images from the original note were not included. INTERVENTIONAL RADIOLOGY FOCUSED H&P and PRE-PROCEDURE NOTE: PCP: DELORES Zaman Referring Provider: No ref. provider found Planned Procedure: Planned procedure: CT core biopsy L5 or S1 lesionCT guided L5 or S1 sclerotic lesion biopsy Procedure Indication: Hypermetabolic sclerotic lesions in the L5 vertebral body and sacrum. There are no answered order specific questions. Presenting Diagnosis/ Complaint: Nancy Pichardo is a 66 y.o. female with h/o urologic cancer and new hypermetabolic sclerotic bone lesions concerning for metastases. Past Medical/Surgical History: Patient Active Problem List Diagnosis Code ??? [...] (WRVU 25.36) [facility] Medications: Current Outpatient Medications on File Prior to Visit Medication Sig Dispense Refill ??? vit B complex no.12/niacin,B3, (VITAMIN B COMPLEX NO.12-NIACIN ORAL) Take 1 tablet by mouth daily. ??? losartan (COZAAR) 100 mg Tablet 50 mg daily. ??? Vitamin B-6 25 mg Tablet TAKE FOUR TABLETS BY MOUTH EVERY DAY ??? senna (Senokot) 8.6 mg Tablet Take 2 tablets by mouth 2 times daily. 120 tablet 11 ??? HYDROcodone-acetaminophen ([place]) 5-325 mg Tablet TAKE ONE TABLET BY MOUTH THREE TIMES A DAY NEEDED FOR PAIN ??? acetaminophen (Tylenol) 325 mg Tablet Take 3 tablets by mouth every 6 hours as needed for Pain. ??? metoprolol tartrate (Lopressor) 25 mg Tablet Take 0.5 tablets by mouth 2 times daily. ??? polyethylene glycoL (Miralax) 17 gram Powder in Packet Take 17 g by mouth daily as needed. ??? humaLOG KwikPen 100 unit/mL Insulin Pen INJECT SUBCUTANEOUSLY PER SLIDING SCALE THREE TIMES A DAY BEFORE MEALS 101TO 150 2 UNITS 151 TO 200 4 UNITS 201 TO 250 6 UNITS 251 TO 3 ??? sodium phosphates (FLEET) Enema Place 1 enema rectally once as needed. ??? furosemide (Lasix) 20 mg Tablet Take 20 mg by mouth 2 times daily. ??? nystatin (MYCOSTATIN) Powder APPLY 1 GRAM TOPICALLY TWO TIMES A DAY NEEDED FOR 30 DAYS ??? Jeanne Pen Needle 32 gauge x Needle ??? docusate sodium (Colace) 100 mg Capsule Take 100 mg by mouth 2 times daily. ??? blood sugar diagnostic strips Strip 1 strip by NOT APPLICABLE route Three times a day. ??? cholecalciferol, Vitamin D3, (Vitamin D3) 1,000 unit Tablet Take 1,000 Units by mouth Daily. ??? nystatin-triamcinolone (MYCOLOG II) Cream Apply topically Twice daily. ??? insulin degludec (Insulin Tresiba FlexTouch U-100) 100 unit/mL (3 mL) Insulin Pen Inject 52 Units subcutaneously daily. No current facility-administered medications on file prior to visit. Allergies: Gabapentin, Atorvastatin calcium, Simvastatin, Loratadine, Sulfa (sulfonamide antibiotics), and Tegaderm [transparent dressings] Social History and Habits: Social History Socioeconomic History ??? Marital status: Spouse name: Not on file ??? Number of children: Not on file ??? Years of education: Not on file ??? Highest education level: Not on file Occupational History ??? Not on file Tobacco Use ??? Smoking status: Former Smoker Packs/day: 0.25 Years: 0.00 Pack years: 0.00 Types: Cigarettes Quit date: 06/2020 Years since quittin.3 ??? Smokeless tobacco: Never Used Vaping Use ??? Vaping Use: Every day Substance and Sexual Activity ??? Alcohol use: Not Currently ??? Drug use: Never ??? Sexual activity: Not on file Other Topics Concern ??? Not on file Social History Narrative ??? Not on file Social Determinants of Health Financial Resource Strain: Not on file Food Insecurity: Not on file Transportation Needs: Not on file Physical Activity: Not on file Housing Stability: Not on file Significant Family History: No family history on file. Pertinent ROS: as per HPI Labs: Lab Results Component Value Date WBC 12.8 (H) 06/22/2021 HCT 24.3 (L) 06/22/2021 PLATELET 238 06/22/2021 BUN 36 (H) 06/24/2021 CREATININE 1.65 (H) 06/24/2021 ALKPHOS 114 (H) 06/02/2021 AST 15 06/02/2021 ALBUMIN 4.1 06/02/2021 BILITOT 0.2 06/02/2021 ALT 20 06/02/2021 PROT 7.8 06/02/2021 K 4.8 06/24/2021 Imaging: Physical Exam: Pending (to be performed in angio the day of procedure) ASA: Pending (to be assessed in angio the day of procedure) Mallampati Class: Pending (to be assessed in angio the day of procedure) Assessment: 66 y.o. female new bone lesions concerning for metastases Plan: Plan Planned procedure: CT core biopsy L5 or S1 lesion Labs to be performed day of procedure: PLT,Coags Sedation: Moderate (Conscious sedation) Prophylactic antibiotic : None Contrast: No contrast Additional medications for procedure: Lidocaine Position: Prone Consent: Pending Medications to discontinue (and days held): None Cytopathology presence needed: Yes 10/22/2021 documented in this encounter Plan of Treatment Upcoming Encounters Date Type Specialty Care Team Description 10/21/2022 Appointment Hematology and Oncology 10/21/2022 Hospital Encounter Radiology Adilene Link [address] MEDICAL ONCOLOGY [place], [place] [phone] (Wo rk) 10/21/2022 Appointment Radiology Adilene Link [address] [address] (Wo rk) 10/21/2022 Appointment Radiology Adilene Link [address] [place] [address] (Wo rk) 10/25/2022 Office Visit Hematology and Oncology Alberto Guy MD [facility] HEMATOLOGY/[place] [address] [address] Link [address] [place] [address] 11/09/2022 Office Visit Urology Bobo Davis MD [facility] UROLOGY [place], [place] [address] (Wo rk) documented as of this encounter Visit Diagnoses Not on filedocumented in this encounter Care Teams Auto Mechanics Teacher Relationship Specialty Start Date End Date Derek Torres PA PCP - General Internal Medicine 06/07/21 [address] [place] [address] documented as of this encounter
--- OUTSIDE RECORDS SUMMARY | 2022-10-07 18:39 | XMS_ITS | Encounter Summary ---
:1955 Author Organization [facility] [place] [address] Care Team Providers Name Role Phone Derek Torres Primary Care Provider Encounter Details Date Type Department Care Team Description 07/27/2021 Notes Only Hematology/Oncology at [facility], [facility] OFFICE OF CARE [address] [place] [phone] Social History Tobacco Use Types Packs/Day Years Used Date Former Smoker Cigarettes 0.25 0 Quit: 06/2020 Smokeless Tobacco: Never Used Alcohol Use Standard Drinks/Week Comments Not Currently 0 (1 standard drink = 0.6 oz pure alcoho l) Sex Assigned at Date Recorded Not on file documented as of this encounter Progress Notes Julia Morris CAN VACUUM TESTER - 07/27/2021 12:20 PM EDT Follow up with pt during her infusion visit today. Pt reports she has surgery. [place]. She has been home with VNA service - nursing, PT, OT and SEISMOGRAPH COMPUTER which her PCP arranged and was just renewed. She is using a wheelchair to get about. It sounds like she stopped the [facility] process due to financial issues/concerns. She reports she and her are managing. He is working and tending to her as needed. Offered support. Pt is expecting to be coming in once a month for infusions. Reminded pt of CAN VACUUM TESTER availability and contact information. Will continue to follow. documented in this encounter Plan of Treatment Upcoming Encounters Date Type Specialty Care Team Description 10/21/2022 Appointment Hematology and Oncology 10/21/2022 Hospital Encounter Radiology Adilene Link[address] MEDICAL ONCOLOGY [place], [place] [address] [phone] (Wo rk) 10/21/2022 Appointment Radiology Adilene Link[address] [place] [address] (Wo rk) 10/21/2022 Appointment Radiology Adilene Link[address] ONCOLOGY [place], [place] [address] [phone] (Wo rk) 10/25/2022 Office Visit Hematology and Oncology Alberto Guy MD [facility] DR HEMATOLOGY/[place] [address] [address] MEDICAL ONCOLOGY [place], [place] [address] 11/09/2022 Office Visit Urology Bobo Davis MD [facility] DR UROLOGY [place], [place] [address] (Wo rk) documented as of this encounter Visit Diagnoses Not on filedocumented in this encounter Care Teams Assembler Adjuster Relationship Specialty Start Date End Date Derek Torres PA PCP - General Internal Medicine 06/07/21 [address] [place], [place] [address] documented as of this encounter
--- OUTSIDE RECORDS SUMMARY | 2022-10-07 18:39 | XMS_ITS | Encounter Summary ---
:1955 Author Organization [facility] [place] [address] Care Team Providers Name Role Phone Derek Torres Primary Care Provider Encounter Details Date Type Department Care Team Description 10/07/2021 Telephone Hematology Oncology at [facility] [place])Denton Johnsbury RN [address] [place], [place] [phone] Social History Tobacco Use Types Packs/Day Years Used Date Former Smoker Cigarettes 0.25 0 Quit: 06/2020 Smokeless Tobacco: Never Used Alcohol Use Standard Drinks/Week Comments Not Currently 0 (1 standard drink = 0.6 oz pure alcoho l) Sex Assigned at Date Recorded Not on file documented as of this encounter Miscellaneous Notes Telephone Encounter - Hattie Anders RN - 10/07/2021 10:49 AM EST Received results of CMP drawn at [facility] on 10/06. Potassium is 5.1 which is down from 5.6 on 09/29/2021. Per note from Mary Oliva RN on 10/05 PCP is aware of hyperkalemia and managing Losartan. Dr. Bhatia notified of results. Patient is scheduled to see him again on 10/19 with labs prior. Call from patient requesting results of labs. Notified her of potassium level 5.1. Explains that shehas UTI and was on Cephalexin. PCP changed that to Cipro today as symptoms persist. Patient reports that she is drinking lots of fluids. States that she is taking Furosemide 20mg daily and wonders if she should continue that or discontinue that. She is worried about putting extra stress on her kidney. Also, wants to be sure that Dr. Bhatia agrees with antibiotic prescribed. PET scan on 10/15, Dr. Davis appt on 10/[address] Bhatia on 10/19. Dr. Bhatia notified of patient's questions re: antibiotic and furosemide. documented in this encounter Plan of Treatment Upcoming Encounters Date Type Specialty Care Team Description 10/21/2022 Appointment Hematology and Oncology 10/21/2022 Hospital En[place] [address] [place] [address] (Wo rk) 10/21/2022 Appointment Radiology [place] [address] [place] [address] (Wo rk) 10/21/2022 Appointment Radiology Adilene Link [address] [place] [address] (Wo rk) 10/25/2022 Office Visit Hematology and Oncology Alberto Guy MD [facility] DR HEMATOLOGY/[place] [address] Ad[address] Link [address] [place] [address] 11/09/2022 Office Visit Urology Bobo Davis MD [facility] UROLOGY [place], [place] [address] (Wo rk) documented as of this encounter Visit Diagnoses Not on filedocumented in this encounter Care Teams Tunnel Kiln Operator Relationship Specialty Start Date End Date Derek Torres PA PCP - General Internal Medicine 06/07/21 [address] [place] [phone] documented as of this encounter
--- OUTSIDE RECORDS SUMMARY | 2022-10-07 18:39 | XMS_ITS | Encounter Summary ---
:1955 [place] [address] Care Team Providers Name Role Phone Derek Torres Primary Care Provider Reason for Visit Reason Comments Chemotherapy Nivolumab, Cycle 3, Day 1 Treatment/Therapy Plan Authorization (Routine) - Specialty Diagnoses / Procedures Referred By Contact Refer red To Contact Diagnoses Urothelial carcinoma of kidney, right Malignant neoplasm of urinary bladder, unspecified site Neutropenia, drug-induced Metastatic urothelial carcinoma High risk medication use Alberto Bhatia MD [facility] Hem Onc Office Procedures [facility]PD[facility] [address] HEMATOLOGY/[place] [phone] Fax: Referral ID Status Reason Start Date Expiration Date Visits V isits Requested Authorized [id number] 10/19/2021 02/02/2022 8 8 Encounter Details Date Type Department Care Team Description 09/21/2021 Infusion Hematology Oncology at [facility] tastatic urothelial carcinoma; [facility] High risk medication use; [address] [place] [address] Neutropenia, drug-induced; [place], [place] [phone] Urothelial carcinoma of kidn ey, right; [phone] Malignant neopl asm of urinary bladder, unspecified site Social History Tobacco Use Types Packs/Day Years Used Date Former Smoker Cigarettes 0.25 0 Quit: 06/2020 Smokeless Tobacco: Never Used Alcohol Use Standard Drinks/Week Comments Not Currently 0 (1 standard drink = 0.6 oz pure alcoho l) Sex Assigned at Date Recorded Not on file documented as of this encounter Progress Notes Tiana Harris RN - 09/21/2021 1:30 PM EDT INFUSION THERAPY ADMINISTRATION NOTES DIAGNOSIS: Urothelial cancer CYCLE #3, Day 1 REASON FOR VISIT: IMMUNOTHERAPY: Nivolumab infusion SUBJECTIVE Nancy mooney no complaints. OBJECTIVE LAB DATA: WNL from today; Seen by prior to visit & cleared for treatment. IV ACCESS: PIV Pre administration: Chemotherapy orders independently verified for drug name, route, and dosage per patient's height, weight and BSA by TIANA HARRIS, MORTEZA & On-site pharmacist. REACTIONS (DESCRIPTION, TIME, INTERVENTION AND EFFECTIVENESS) none ASSESSMENT Nancy Pichardo tolerated her infusion well.. PLAN Return to Clinic as scheduled. documented in this encounter Plan of Treatment Upcoming Encounters Date Type Specialty Care Team Description 10/21/2022 Appointment Hematology and Oncology 10/21/2022 Hospital Encounter Radiology Adilene Link[address] [place] [address] (Wo rk) 10/21/2022 Appointment Radiology Adilene Link[address] [place] [address] (Wo rk) 10/21/2022 Appointment Radiology Adilene Link[address] [place] [address] (Wo rk) 10/25/2022 Office Visit Hematology and Oncology Alberto Guy MD [facility] DR HEMATOLOGY/[place] [address] [address] 11/09/2022 Office Visit Urology Bobo Davis MD [facility] UROLOGY [place] [address] (Wo rk) documented as of this [...] nivolumab (Opdivo) 480 mg in New Bag 09/21/2021 2:33 PM EDT 480 mg 296 mL/hr sodium chloride 0.9% 148 mL infusion 480 mg, Intravenous, ONCE, 1 dose, On Mon09/21/21 at 1530, Administer over 30 Minutes, Flush line with NS after each dose, This agent is restricted to outpatient use. Is this drug being given as an outpatient? Yes sodium chloride 0.9% infusion New Bag 09/21/2021 1:48 PM EDT 100 mL/hr 100 mL/hr 100 mL/hr, Intravenous, CONTINUOUS, Starting on Mon09/21/21 at 1430, Until Mon09/21/21 at 1711 documented in this encounter Care Teams Prepress Stripper Relationship Specialty Start Date End Date Derek Torres PA PCP - General Internal Medicine 06/07/21 [address] [place] [address] documented as of this encounter
--- OUTSIDE RECORDS SUMMARY | 2022-10-07 18:39 | XMS_ITS | Encounter Summary ---
:1955 Author Organization [facility] [place] [address] Care Team Providers Name Role Phone Derek Torres Primary Care Provider Encounter Details Date Type Department Care Team Description 08/24/2021 Notes Only Hematology/Oncology at Julia Morris MSW [facility] OFFICE OF CARE [address] [place] [address] [phone] Social History Tobacco Use Types Packs/Day Years Used Date Former Smoker Cigarettes 0.25 0 Quit: 06/2020 Smokeless Tobacco: Never Used Alcohol Use Standard Drinks/Week Comments Not Currently 0 (1 standard drink = 0.6 oz pure alcoho l) Sex Assigned at Date Recorded Not on file documented as of this encounter Progress Notes Julia Morris MSW - 08/24/2021 2:16 PM EDT Follow up with pt during her infusion visit today. Pt indicated she is slowly making gains from the challenges she had had with her legs. She continue with [facility] services. She is getting OT and STREET PHOTOGRAPHER service. Her PT services are on hold due to her back issues. She would like the gains to come quicker but she is moving forward. She is remaining careful and cauttious when out due to Covid. Offered support. Reminded pt of YEAST SUPERVISOR availability and contact information. Will follow for support and resources. SW Interventions: Brief assessment Supportive Counseling documented in this encounter Plan of Treatment Upcoming Encounters Date Type Specialty Care Team Description 10/21/2022 Appointment Hematology and Oncology 10/21/2022 Hospital Encounter Radiology Adilene Link[address] MEDICAL ON[facility]OG[place] [address] (Wo rk) 10/21/2022 Appointment Radiology Adilene Link[address] [place] [address] (Wo rk) 10/21/2022 Appointment Radiology Adilene Link[address] [place] [address] (Wo rk) 10/25/2022 Office Visit Hematology and Oncology Alberto Guy MD [facility] DR HEMATOLOGY/[place] [address] [address] MEDICAL ONCOLOGY [place], [place] [address] 11/09/2022 Office Visit Urology Bobo Davis MD [facility] DR UROLOGY [place], [place] [address] (Wo rk) documented as of this encounter Visit Diagnoses Not on filedocumented in this encounter Care Teams Government Program Manager Relationship Specialty Start Date End Date Derek Torres PA PCP - General Internal Medicine 06/07/21 Mahnaz CARLSON [address] [place], [place] [address] documented as of this encounter
--- OUTSIDE RECORDS SUMMARY | 2022-10-07 18:39 | XMS_ITS | Encounter Summary ---
:1955 [place] [address] Care Team Providers Name Role Phone Derek Torres Primary Care Provider Reason for Visit Reason Comments Chemotherapy Cycle 2, Day 1 - Nivolumab Treatment/Therapy Plan Authorization (Routine) - Specialty Diagnoses / Procedures Referred By Contact Refer red To Contact Diagnoses Urothelial carcinoma of kidney, right Malignant neoplasm of urinary bladder, unspecified site Neutropenia, drug-induced Metastatic urothelial carcinoma High risk medication use Alberto Bhatia MD [facility] Hem Onc Office Procedures OPDIVO [address] HEMATOLOGY/[place] [phone] Fax: Referral ID Status Reason Start Date Expiration Date Visits V isits Requested Authorized [id number] 10/19/2021 02/02/2022 8 8 Encounter Details Date Type Department Care Team Description 08/24/2021 Infusion Hematology Oncology at [facility]; [facility] High risk medication use; [address] [place] [address] Urothelial carcinoma of kidn ey, right [place], [place] [phone] Social History Tobacco Use Types Packs/Day Years Used Date Former Smoker Cigarettes 0.25 0 Quit: 06/2020 Smokeless Tobacco: Never Used Alcohol Use Standard Drinks/Week Comments Not Currently 0 (1 standard drink = 0.6 oz pure alcoho l) Sex Assigned at Date Recorded Not on file documented as of this encounter Progress Notes Brittny Rondon RN - 08/24/2021 1:30 PM EDT INFUSION THERAPY ADMINISTRATION NOTES DIAGNOSIS: Urothelial cancer CYCLE #: Cycle 2, Day 1 - Nivolumab REASON FOR VISIT: To receive chemotherapy. SUBJECTIVE: Nancy offers no complaints. OBJECTIVE: VSS. Seen by provider. Ready to treat. LAB DATA: WBC - 8.46, H/H - 10.4/32.9, Plt Ct - 254, ANC - 6.33, Lytes wnl, BUN/Cr - 43/2.1, CA++ - 8.8, MG+ - 2.0, TSH/Free T4 - 2.10/1.02 IV ACCESS: PIV left wrist. Pre administration: [...] Oncology 10/21/2022 Hospital Encounter Radiology Adilene Link, [address] MEDICAL ONCOLOGY [place], [place] [phone] (Kwadwo morataya) 10/21/2022 Appointment Radiology Adilene Link[address] MEDICAL ONCOLOGY [place], [place] [phone] (Kwadwo morataya) 10/21/2022 Appointment Radiology Adilene Link[address] ONCOLOGY [place], [place] [phone] (Kwadwo morataya) 10/25/2022 Office Visit Hematology and Oncology Alberto Guy MD [facility] DR HEMATOLOGY/[place] [address] Adilene Link [employer] SUPERVISOR [address] [place] [address] DR MEDICAL ONCOLOGY [place], [place] [address] 11/09/2022 Office Visit Urology Bobo Davis MD [facility] DR [place], [place] [address] (Wo rk) documented as [...] nivolumab (Opdivo) 480 mg in New Bag 08/24/2021 2:17 PM EDT 480 mg 296 mL/hr sodium chloride 0.9% 148 mL infusion 480 mg, Intravenous, ONCE, 1 dose, On Mon08/24/21 at 1500, Administer over 30 Minutes, Flush line with NS after each dose, This agent is restricted to outpatient use. Is this drug being given as an outpatient? Yes sodium chloride 0.9% infusion New Bag 08/24/2021 2:00 PM EDT 100 mL/hr 100 mL/hr 100 mL/hr, Intravenous, CONTINUOUS, Starting on Mon08/24/21 at 1400, Until Mon08/24/21 at 1751 documented in this encounter Care Teams Parts Facilitator Relationship Specialty Start Date End Date Derek Torres PA PCP - General Internal Medicine 06/07/21 Mahnaz [address] [place], [place] [phone] documented as of this encounter
--- OUTSIDE RECORDS SUMMARY | 2022-10-07 18:39 | XMS_ITS | Encounter Summary ---
:1955 Author Organization [facility] [place] [address] Care Team Providers Name Role Phone Derek Torres Primary Care Provider Encounter Details Date Type Department Care Team Description 08/11/2021 Ancillary Procedure Radiology Library at Linsey Torres [facility] [place] [address] [address] [place], [place] [phone] (Wo rk) Social History Tobacco Use Types [...] 10/21/2022 Hospital Encounter Radiology Adilene Link APRN [address] [place] [address] DR MEDICAL ONCOLOGY [place], [place] [phone] (Wo rk) 10/21/2022 Appointment Radiology Adilene Link [address] MEDICAL ONCOLOGY [place], [place] [phone] (Wo rk) 10/21/2022 Appointment Radiology Adilene Link [address] MEDICAL ONCOLOGY [place], [place] [phone] (Wo rk) 10/25/2022 Office Visit Hematology and Oncology Alberto Guy MD [facility] DR [place]EMATOLOGY/[place] [address] Adilene Link, [address] MEDICAL ONCOLOGY [place], [place] [phone] 11/09/2022 Office Visit Urology Bobo Davis MD [facility] UROLOGY [place], [place] [address] (Wo rk) documented as of this encounter Procedures Procedure Name Priority Date/Time Associated Diagnosis Comme nts FILM LIBRARY Routine 08/11/2021 2:38 PM Results f or this STORAGE ONLY CT EDT procedure ar e in ABDOMEN AND PELVIS the resul ts section. documented in this encounter Results Film Library- Storage Only CT Abdomen & Pelvis (08/11/2021 2:38 PM EDT) Specimen (Source) Anatomical Location Collection Method / Collectio n Time Received Time / Laterality Volume Narrative RAD - 08/11/2021 2:38 PM EDT This exam is auto-finalizing. It's purpo se is for storage only. Derek ESTRELLA IMShantel FILM LIBRARY ORDERABLES Performing Organization Address City/State/ZIP Code Phon e Number [place], [place] documented in this encounter Visit Diagnoses Not on filedocumented in this encounter Care Teams Bobbin Winder Tender Relationship Specialty Start Date End Date Derek Torres PA PCP - General Internal Medicine 06/07/21 Mahnaz [address] [place], [place] [address] documented as of this encounter
--- OUTSIDE RECORDS SUMMARY | 2022-10-07 18:39 | XMS_ITS | Encounter Summary ---
:1955 Author Organization [facility] [place] [address] Care Team Providers Name Role Phone Derek Torres Primary Care Provider Encounter Details Date Type Department Care Team Description 07/06/2021 Office Visit Hematology/Oncology Rah Bhatia MD [facility] DR HEMATOLOGY/[place] [address] [facility]ro[facility] [address] [place] [address] [place] [address] High risk medication use [address] [place] [phone] Social History Tobacco Use Types Packs/Day Years Used Date Former Smoker Cigarettes 0.25 0 Quit: 06/2020 Smokeless Tobacco: Never Used Alcohol Use Standard Drinks/Week Comments Not Currently 0 (1 standard drink = 0.6 oz pure alcoho l) Sex Assigned at Date Recorded Not on file documented as of this encounter Last Filed Vital Signs Vital Sign Reading Time Taken Comments Blood Pressure 183/67 07/06/2021 10:35 AM EDT Pulse 73 07/06/2021 10:35 AM EDT Temperature 36.5 ??C (97.7 ??F) 07/06/2021 10:35 AM EDT Respiratory Rate 32 07/06/2021 10:35 AM EDT Oxygen Saturation 98% 07/06/2021 10:35 AM EDT Inhaled Oxygen Concentration - - Weight 96.1 kg (211 lb 12.8 oz) 07/06/2021 10:35 AM EDT Height 161.3 cm (5' 3.5) 07/06/2021 10:35 AM EDT Body Mass Index 36.93 07/06/2021 10:35 AM EDT documented in this encounter Progress Notes Alberto Bhatia MD - 07/06/2021 10:30 AM EDT Images from the original [...] (DVT) prophylaxis Z29.9 ??? Renal cancer C64.9 HPI:Nancy Pichardo is 66 y.o. F referred [...] Lovenox and and antibiotics with ciprofloxacin. INTERVAL history(07/06/21):- Nancy returns to the [facility] today for urothelial carcinoma of right kidney. She underwent right nephroureterectomy on June 16 at the care of Dr. Davis. Davidins on left side nerve pain after surgery. She does take pain medication regularly. Pain medication prescribed by her primary care physician. Overwise, she feels at her baseline no nausea, vomiting, constipation or diarrhea. She is still having intermittent arthralgias. No other focal complaints today. No hematuria or dysuria. PMH: Right nephroureterectomy on June 16 UTI E. coli 100,000 colonies PTSD/depression, diabetes mellitus on insulin, arthritis, , hernia repair x3, anxiety, hysterectomy for urinary incontinence 2 to 3 years ago Social History: 43-byao-tsor smoking history, quit 6 months ago, does [...] Medications: Your Medications Accurate as of July 06, 2021 10:49 AM. If you have any questions, ask [...] HYDROcodone-acetaminophen 5-325 mg Tab Commonly known as: [place] TAKE ONE TABLET BY MOUTH THREE TIMES [...] drug: insulin needles (disposable) Refills: 0 nystatin Powd Commonly known as: MYCOSTATIN APPLY 1 [...] daily. 2 tablet Quantity: 120 tablet Refills: 3 sodium phosphates Enem Commonly known as: FLEET [...] Thought content normal. Judgment: Judgment normal. BP 183/67 (Patient Position: Sitting) Pulse 73 Temp 36.5 ??C (97.7 ??F) (Temporal) Resp (!) 32 Ht 161.3 cm (5' 3.5) Wt 96.1 kg (211 lb 12.8 oz) SpO2 98% BMI 36.93 kg/m?? Wt Readings from Last 3 Encounters: 07/06/21 96.1 kg (211 lb 12.8 oz) 06/24/21 100.8 kg (222 lb 3.2 oz) 06/23/21 96.6 kg (212 lb 15.4 oz) Pathology: 06/16/21 ADDENDUM DISCUSSION PAS and BMS stains were evaluated for Block A17, demonstrating nodular ??glomerulosclerosis. Electronically signed by: ?MD Thorne Jason R. Verified: ??06/24/2021 11:01 ??Pathologist Performed at: ??-[facility] Dept. of Pathology, [place], [place] ? Surgical Pathology DIAGNOSIS Right kidney and ureter with paracaval and intracaval lymph nodes, excision: ??- Urothelial carcinoma. ?? (See SYNOPTIC REPORT), invasive into ? perinephric fat and renal parenchyma. 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 Electronically signed by: ?MD Thorne Jason R. Verified: ??06/24/2021 10:58 ??Pathologist Performed at: ??-[facility]??Dept. of Pathology, [place], [place] SYNOPTIC Specimen ?Procedure: ??Nephroureterectomy ?Specimen Laterality: [...] carcinoma with superimposed abundant degenerative changes Labs: 07/06/2021 WBC 10.29, hemoglobin 8.9, platelet count [...] TB 0.3, AST 14, ALT 35, alkaline [id number], total protein 7.7, albumin 2.8, 04/09/2021 UA [...] moderate. Nitrites negative, RBC 09/20, bacteria many, 03/22/2027 vitamin B12 more than [...] WBC 10.4, hemoglobin 12.2, platelet count 347, Imagin04/30/2021 PET scan: IMPRESSION 1. Anatomically decrease in [...] gemcitabine 1000 mg/m?? day 1 and 8 Ms. Pichardo has new diagnosis of metastatic [...] particularly right nephroureterectomy. Nancy was admitted to [facility] [place] with CHF exacerbation/pulmonary edema, decompensated diabetes and [...] were disease-free survival among all the patients (tkcgoceos-ap-fwlaq population) and among patients with a tumor programmed ligand 1 (PD-L1) expression level of 1% or more. Survival free from recurrence outside the urothelial tract was a secondary end point. RESULTS A total of 353 patients were assigned to receive nivolumab and 356 to receive placebo. The median disease-free survival in the tdejudrqe-ve-fbnfx population was 20.8 months (95% confidence interval [...] recurrence outside the urothelial tract in the kyakbzpwf-ok-czxmh population was 22.9 months (95% CI, 19.2 [...] with adjuvant nivolumab than with placebo in rmeorgduuihl-hh-vsjef population and among patients with a PD-L1 expression level of 1% or more. We discussed side effects of nivolumab which occlude but not limited to fatigue, skin rash, itching,immune mediated thyroiditis, hepatitis, pneumonitis, colitis. All questions were answered to patient satisfaction. She is interested to proceed with nivolumab. Informed verbal consent was obtained. We will start treatment in 3 weeks # CHF: Follows with Dr. Ebony Beckham, [...] twice daily. #LFTs- normalized today. PLAN: 1. Continue Eliquis 2.5mg po BID. 2. Next visit in 3 weeks with CBC, CMP, TSH, free T4 and first cycle of nivolumab Nancy voiced understanding of [...] and Oncology 10/21/2022 Hospital Encounter Radiology Adilene Link[address] MEDICAL ONCOLOGY [place], [place] [address] (Wo rk) 10/21/2022 Appointment Radiology Adilene Link [address] MEDICAL ONCOLOGY [place], [place] [phone] (Wo rk) 10/21/2022 Appointment Radiology Adilene Link[address] ONCOLOGY [place], [place] [address] (Wo rk) 10/25/2022 Office Visit Hematology and Oncology Alberto Guy MD [facility] DR HEMATOLOGY/[place] [address] [address] MEDICAL ONCOLOGY [place], [place] [address] [phone] 11/09/2022 Office Visit Urology Bobo Davis MD [facility] UROLOGY [place], [place] [address] (Wo rk) documented as of this encounter Visit Diagnoses Diagnosis Metastatic urothelial carcinoma 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 High risk medication use Encounter for long-term (current) use of other medications documented in this encounter Care Teams Legal Coordinator Relationship Specialty Start Date End Date Derek Torres PA PCP - General Internal Medicine 06/07/21 [address] [place] [address] documented as of this encounter
--- OUTSIDE RECORDS SUMMARY | 2022-10-07 18:39 | XMS_ITS | Encounter Summary ---
:1955 Author Organization [facility] [place] [address] Care Team Providers Name Role Phone Derek Torres Primary Care Provider Encounter Details Date Type Department Care Team Description 07/23/2021 Ancillary Procedure Radiology Library at Linsey Torres [facility] [place] [address] [address] [place], [place] [phone] (Wo rk) Social History Tobacco Use Types [...] Hospital Encounter Radiology Adilene Link APRN [address] [place] [address] DR MEDICAL ONCOLOGY [place], [place] [phone] (Wo rk) 10/21/2022 Appointment Radiology Adilene Link [address] MEDICAL ONCOLOGY [place], [place] [phone] (Wo rk) 10/21/2022 Appointment Radiology Adilene Link [address] MEDICAL ONCOLOGY [place], [place] [phone] (Wo rk) 10/25/2022 Office Visit Hematology and Oncology Alberto Guy MD [facility] DR HEMATOLOGY/[place] [address] Adilene Link, [address] MEDICAL ONCOLOGY [place], [place] [phone] 11/09/2022 Office Visit Urology Bobo Davis MD [facility] UROLOGY [place], [place] [address] (Wo rk) documented as of this encounter Procedures Procedure Name Priority Date/Time Associated Diagnosis Comme nts FILM LIBRARY Routine 07/23/2021 12:05 AM Results for this STORAGE ONLY DX EDT procedure ar e in SPINE the results section. documented in this encounter Results Film Library- Storage Only DX Spine (07/23/2021 12:05 AM EDT) Specimen (Source) Anatomical Location Collection Method / Collectio n Time Received Time / Laterality Volume Narrative RAD - 08/11/2021 2:42 PM EDT This exam is auto-finalizing. It's purpo se is for storage only. Derek ESTRELLA IMShantel FILM LIBRARY ORDERABLES Performing Organization Address City/State/ZIP Code Phon e Number [place], [place] documented in this encounter Visit Diagnoses Not on filedocumented in this encounter Care Teams Coupon Clerk Relationship Specialty Start Date End Date Derek Torres PA PCP - General Internal Medicine 06/07/21 Mahnaz [address]LS[address] [place], [place] [phone] documented as of this encounter
--- OUTSIDE RECORDS SUMMARY | 2022-10-07 18:40 | XMS_ITS | Encounter Summary ---
:1955 [place] [address] Care Team Providers Name Role Phone Derek Torres Primary Care Provider Reason for Visit Auth/Cert Specialty Diagnoses / Procedures Referred By Contact Refer red To Contact Diagnoses Renal cancer 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 ? Procedures PRO NEPHRECTOMY, W/PART. URETECTOMY @LAPAROSCOPY TOTAL NEPHROURETERECTOMY, ROBOTICS ASSIST (WRVU 25.36) MODIFIER ROBOT,DAVINCI XI Referral ID Status Reason Start Date Expiration Date Visits Requ ested Visits Authorized [id number] 1 1 Encounter Details Date Type Department Care Team Description 06/16/2021 Anesthesia Event Main Operating Room Donis Lee MD [facility] [place] [address] Elian Rene MD [facility] [place] [place] [address] [place] [address] Anesthesia Record Procedure Summary Procedure Name Responsible Anesthesia Start Anesthesia Stop Time Anesthesiologist Time @LAPAROSCOPY TOTAL Conrado Lee MD 06/16/21 1609 0712/17 2301 NEPHROURETERECTOMY, ROBOTICS ASSIST (WRVU 25.36) (Right Flank) Events Date Time Event Comment 06/16/2021 1226 1609 AN Verify 1609 Start 1609 An Start Data 1619 An Induction 1626 An Intubation 1634 Anesthesia Ready 1752 ABG Data Arterial Blood G as result: pH 7.5 pCO2 42 pO2 160 %O2 Sat 98 F iO2 .7 HCO3 23 BE -2.1 Hb 10 K 4.1 Glucose 12 4 Lactate 1.84 225 Extubation/LMA Out 2250 an stop data 2250 Recovery or ICU Handoff Patient care was transferred to the destination unit staff after review of the patient's medica l history, current anesthetic/surgi ava status and plan, according to the Provider Handoff Checklist. 230 Stop Name Total fentaNYL 100 mcg IV Lidocaine 100 mg Propofol 200 mg Rocuronium 130 mg PHENYLephrine 800 mcg Ondansetron 8 mg Dexmedetomidine 20 mcg Propofol INF 1,071.29 mg PHENYLephrine INF 5,275 mcg ceFAZolin 4 g BUpivacaine 0.5% 30 mL Insulin Regular Human 2 Units HYDROmorphone 0.6 mg Sugammadex 200 mg Lactated Ringers 1,800 mL Lactated Ringers 1,400 mL Agents Name O2 Air N2O Sevoflurane (et) Isoflurane (et) Blood No blood administrations on file. Lines, Drains, and Airways Type Details Placement Removal Arterial Line radial artery, right; 06/16/21 1726 by 0125 by gauge; Renzo Antonio Patrick F RN Anatomical Landmarks; bcharron cotton stripper; Sterile Prep, Sterile Gloves; 06/17/21; 0125 PIV dorsal arch vein (top of 06/16/21 1726 by 0106 by hand), right; Tamiko Birmingham RN [id number] catheter system; 18 gauge; chin; removed per policy/procedure; 06/18/21; 0106 Urethral Catheter 06/16/21; 1630; Urologic 06/16/21 1630 by 05/28 07/17 1302 by surgery; indwelling Susie Oviedo RN Neily, Rachel E, RN double lumen catheter; latex; 14; inserted at this facility; 1; 5; 10; none; drainage bag to dependent drainage; 06/23/21; 1302 ETT Mask Ventilation: Easy 06/16/21 1631 by 06/16/21 2251 by (1); ETT Type: Cuffed; Vero Caal, Vero Goyal, ETT Size: 7 mm; Mac BALANCE CLERK BALANCE CLERK Blade: 4; Notes: Asleep, Pre-O2, Stylette; Attempts: 1; Laryngoscopy Grade: 2; ETT Placement Verified By: Auscultation, Capnometry, Visual; Secured at Teeth: 22 cm; Inserted by: chin Incision 06/16/21; 1707; abdomen; 06/16/21 1707 by 1715 by other (see comments), Susie Oviedo, RN Bibiana er, Cheo Mock laparoscopic punctures (specify); Robotic ports x 4 with 2 regular lap port sites; 07/25/22 (LDA cleanup utility RA#[id number]); 171 (LDA cleanup utility RA#[id number]) documented in this encounter Social History Tobacco Use Types Packs/Day Years Used Date Former Smoker Cigarettes 0.25 0 Quit: 06/2020 Smokeless Tobacco: Never Used Alcohol Use Standard Drinks/Week Comments Not Currently 0 (1 standard drink = 0.6 oz pure alcoho l) Sex Assigned at Date Recorded Not on file documented as of this encounter OR Notes Anesthesia Postprocedure Evaluation - Conrado Lee MD - 06/17/2021 12:01 AM EDT Department of Anesthesiology Post-procedure Note Patient: Nancy Pichardo Procedure Summary Date: 06/16/21 Room / Location: [facility] OR Anesthesia Start: 1609 Anesthesia Stop: 2300 Procedures: @LAPAROSCOPY TOTAL NEPHROURETERECTOMY, ROBOTICS ASSIST (WRVU 25.36) (Right Flank) MODIFIER ROBOT,BOAZ XI (N/A ) Diagnosis: Malignant neoplasm of right renal pelvis (T3N2M0 cancer Right soctt) Surgeons: Bobo Davis MD Responsible Provider: Conrado Lee MD Anesthesia Type: general ASA Status: 3 All Anesthesia Providers: Anesthesiologist: Conrado Lee MD BALANCE CLERK: Vero Caal CRNA Vitals Value Taken Time BP 159/61 06/17/21 1245 Temp 37.1 ??C (98.8 ??F) 06/17/21 1245 Pulse 82 06/17/21 0346 Resp 18 06/17/21 1245 SpO2 93 % 06/17/21 1300 Pain Level 10 06/17/21 0800 Vitals shown include unvalidated device data. Patient Location: PACU/[facility] Level of Consciousness: Awake and Alert Pain Management: Satisfactory Analgesia PONV: None Cardiovascular Status: At Baseline and Hemodynamically Stable Respiratory Status: At Baseline and Room Air Postoperative Fluid Status: Intravascular EUvolemia Possible Anesthetic Complications: NONE apparent at time of evaluation Final Primary Anesthesia Type: General (The anesthetic type performed was the same as planned.) Comments: CONRADO LEE MD Anesthesia Procedure Notes - Conrado Lee MD - 06/16/2021 7:48 PM EDT Associated Order(s): Anesthesia Block Anesthesia Block Date/Time: 06/16/2021 5:00 PM Performed by: Conrado Lee MD Authorized by: Conrado Lee MD Start Time: 06/16/2021 5:00 PM End Time: 06/16/2021 5:10 PM Patient Location: Main OR The patient was greeted; the risks and benefits of the procedure were reviewed. Indication: Post-op Pain Control Post-op pain management at the request of surgeon. Block Type: TAP Laterality: Right Position: Right lateral decubitus Prep: Chlorhexidine and mask, cap, sterile gloves, hand hygeine Block Technique: O-grbxk-aetrv 22 8 cm Ultrasound Guided: In-plane and YES Ultrasound Image Saved Ultrasound guidance was used to identify the targeted neuronal structure. Ultrasound was also used to identify needle position and to identify tissue (bone, muscle, and blood vessels) to prevent inadvertent intraneural or intravascular needle placement and injection. The spread of local anesthetic was confirmed with live ultrasound imaging.?? Single-Shot: Single-shot Local Anesthetic Volume(s) Injected for Nerve Block: BUpivacaine 0.5%, 30 mL Nerve Sensory/MotorTest: Events: no complications Staff: Attending Physician:: Conrado Lee MD Anesthesia Preprocedure Evaluation - Elian Walden MD - 06/16/2021 9:32 AM EDT Pre-Anesthesia Evaluation for: Nancy Pichardo a 66 y.o. female. Patient Active Problem List Diagnosis ??? Renal cancer ??? Acute congestive heart failure ??? Acute pulmonary edema ??? Edema of both lower extremities ??? Flank pain ??? Leukocytosis ??? Pericardial effusion ??? Peripheral neuropathy ??? Renal mass ??? Superficial thrombophlebitis of right upper extremity ??? Transitional cell carcinoma ??? Urinary tract infection ??? Encounter for deep vein thrombosis (DVT) prophylaxis ??? Neutropenia, drug-induced ??? Urothelial carcinoma of kidney, right ??? Malignant neoplasm of urinary bladder ??? CKD (chronic kidney disease), stage II ??? Depression ??? Diabetes mellitus due to underlying condition with stage 2 chronic kidney disease, with long-term current use of insulin ??? Albuminuria ??? PTSD (post-traumatic stress disorder) ??? Urinary incontinence ??? CIS - Depression ??? 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 ? CIS - Obesity->better weight control ??? CIS - Type 2 diabetes Recent lab (12/10/10): A1c 9.2% (in 2000, her A1c was 7.8% at diagnosis) -recent admission at [facility] ICU on 10/26/10 for DKA (pH<7, HCO3 <5, BG 495, moderate acetone, high lipase 399, pOsm 339) ??? CIS - Hyperlipidemia recent lab 12/10/10: TC 188, LDL 117, HDL 57, TG 154 ??? CIS - Tobacco use Past Medical History: Diagnosis Date ??? Anemia [...] Tonsillectomy as a child Procedure Date: Unknown Social History Tobacco Use ??? Smoking status: Former Smoker Packs/day: 0.25 Years: 0.00 Pack years: 0.00 Types: Cigarettes Quit date: 06/2020 Years since quittin.9 ??? Smokeless tobacco: Never Used Substance Use Topics ??? Alcohol use: Not Currently Social History Substance and Sexual Activity Drug Use Never Allergies Allergen Reactions ??? Atorvastatin Calcium CIS - leg pain, CIS - leg pain, CIS - leg pain, CIS - leg pain, CIS - leg pain ??? Simvastatin CIS - leg pain, CIS - leg pain, CIS - leg pain, CIS - leg pain, CIS - leg pain ??? Loratadine Palpitations hyper ??? Sulfa (Sulfonamide Antibiotics) Medications: MAR and/or home medications have been reviewed. Physical Exam: Preprocedure Vitals Current as of 06/02/21 1355 BP: Pulse: Resp: SpO2: 97 Temp: Height: 161.3 cm (5' 3.5) (06/02/21) Weight: 96.6 kg (213 lb) (06/02/21) BMI: 37.14 IBW: 53.6 kg (118 lb 1.2 oz) Last edited 06/02/21 1241 by MG Airway Assessment: Mallampati: III TM distance: >3 FB Neck ROM: full Cardiovascular Assessment: Rhythm: regular Rate: normal system normal Pulmonary Assessment: pulmonary exam normal Dental Assessment: - normal exam Misc Assessment: Patient is wearing No contact(s). IV access: Peripheral line Last Filed Perioperative Cognitive Screening Value Time User AD8 Total Score: 0 06/02/2021 1:00 PM Kellee Jaime RN AD8 Informant: Other Informant 06/02/2021 1:00 PM Kellee Jaime RN CFS Frailty Score: 3 06/02/2021 1:00 PM Kellee Jaime RN Anesthesia Plan: ASA 3 general, with a(n) intravenous induction Attending Assessment: Patient personally seen and examined. 66yo F with Stage 4 urothelial cancer presenting for Right nephroureterectomy and lymph node dissection. PMH: CHF exacerbation (thought secondary to chemo, TTE 02/2021 normal), T2IDDM, former smoker (40py, quit 06/2020), HTN, CKD stage 2, chronic pain, PE on eliquis, PTSD, depression, breast surgery No recent URI. No GERD (asymptomatic in preop). No problems with anesthesia in the past. No records available Meds: reviewed, last dose of apixaban was 06/08/21. Last dose of Lasix and Spironolactone 06/15/21. EKG: reviewed TTE 03/22/2021: LVEF 55%, no WMA, RV normal, no significant valvular abnormalities, small pericardialeffusion with no e/o tamponade NPO status adequate Plan: - preop Tylenol, post-induction QL block - standard ASA monitors, PIV x2, post-induction arterial line - GETA - of note, TTE 02/2021 showed small pericardial effusion w/ no e/o tamponade - Preop glucose 119, continue periop glucose monitoring The patient was informed of the risks, benefits and alternatives of anesthesia. These risks included, but were not limited to, post-operative nausea and/or vomiting, pain, sore throat, dental/lip injury, and other rare but serious complications such as cardiac instability/arrest, neurologic event, awareness, severe allergic reactions, position-related nerve injuries, and need blood transfusions. All questions sought and answered. Consent was signed and placed in chart. Elian Walden MD 06/16/2021 Region - Other Informed Consent: Anesthetic plan and risks discussed with patient. Use of blood products discussed with patient who consented to blood products. Anesthesia Screening Note: Date and Time of Entry: 06/02/2021 1:56 PM Entered By: Billy Malloy MD Reason for Evaluation: Surgeon Request Hx of Anesthesia Problem: Heart failure Screening Visit Type: Interviewed in person Additional/Outside Records Requested? Requested medical information from outside organization. From Where? [facility]- echocardiogram/stress test from recent admission Findings, Assessment and Plan: 66yo female with history of R sided renal transitional cell cancer, currently on multiple chemo agents that have resulted in neuropathy (wheelchair bound when not exercising under supervision), as well as recently diagnosed diastolic heart failure (on lasix + spironolactone). History also notable for obesity, T2DM on insulin, former smoking, HTN, CKD2. She is being evaluated prior to laparoscopic R ureteronephrectomy. From a cardiac standpoint, she reports her heart failure is a rather new diagnosis, though records indicate she had some component of diastolic heart failure prior to chemotherapy. She had a recent echo (or potentially a stress test) at [facility] for CHF exacerbation work-up. She was diuresed and transfused with blood for anemia (has been anemic since chemo). These records were requested from [facility]. We have no cardiac work-up on file on [facility]. Her exercise tolerance is reasonable so long as she is monitored, she walks for 30 minutes on days she has someone to help her with balance and to assist if she starts to fall. She declines chest pain or shortness of breath with this activity -From a volume standpoint, she has recently been started on lasix 20mg oral BID as well as spironolactone, on this regimen, she feels her shortness of breath and peripheral swelling is much improved. On exam, she has mild pitting edema at the feet, which she reports is a great improvement since 3 weeks ago. -She is able to lay flat without issue Also notable, she is currently on apixiban for multiple episodes of bilateral upper extremity thrombophlebitis. Painful regions of swelling without erythema noted on forearms. She has had anesthesia prior without issue, though we have no records on [facility]. Patient consented for anesthesia including potential regional block, questions were answered, she was counseled about risks. Labs were drawn today in clinic, echocardiogram requested from [facility]. -Billy Malloy PGY4 anesthesiology Addendum: Results of 03/22/2021 ECHO Imagin03/22/2021 echocardiogram normal LV segmental wall motion. The left ventricular diastolic function isnormal. LVEF is 55%, small circumferential pericardial effusion without evidence of tamponade. documented in this encounter Miscellaneous Notes Addendum Note - Rina Simental - 06/21/2021 3:40 PM EDT Addendum created 06/21/21 2180 by Rina Simental MD Clinical Note Signed documented in this encounter Plan of Treatment Upcoming Encounters Date Type Specialty Care Team Description 10/21/2022 Appointment Hematology and Oncology 10/21/2022 Hospital Encounter Radiology Adilene Link[address] [address] (Wo rk) 10/21/2022 Appointment Radiology Adilene Link [address] [place] [address] (Wo rk) 10/21/2022 Appointment Radiology Adilene Link[address] [address] (Wo rk) 10/25/2022 Office Visit Hematology and Oncology Alberto Guy MD [facility] DR HEMATOLOGY/[place] [address] [address] Link [address] [facility] [place], [place] [id number] 11/09/2022 Office Visit Urology Bobo Davis MD [facility] [address] UROLOGY [place], [place] [address] (Wo rk) documented as of this encounter Procedures Procedure Name Priority Date/Time Associated Diagnosis Comme nts ANESTHESIA BLOCK Routine 06/16/2021 5:00 PM Resul ts for this EDT procedure are i n the results section. documented in this encounter Results Anesthesia Block (06/16/2021 5:00 PM EDT) Narrative Conrado Lee MD - 06/16/2021 5: 00 PM EDT Conrado Lee MD ? 06/16/2021 ??7:52 PM Anesthesia Block Date/Time: 06/16/2021 5:00 PM Performed by: Conrado Lee MD Authorized by: Conrado Lee MD Start Time: ??06/16/2021 5:00 PM End Time: ??06/16/2021 5:10 PM Patient Location: ??Main OR The patient was greeted; the risks and b enefits of the procedure were reviewed. ?? Indication: ??Post-op Pain Control Post-op pain management at the request o f surgeon. ?? Block Type: ??TAP Laterality: ??Right Position: ??Right lateral decubitus Prep: ??Chlorhexidine and mask, cap, luke rile gloves, hand hygeine Block Technique: ?? [id number]-[id number]-gvbuw ?? 22 ?? 8 cm ??Ultrasound Guided: ??In-plane and YES ??Ultrasound Image Saved ?Ultrasound guidance was used to ident valentino the targeted neuronal structure. Ultrasound was also used to i dentify needle position and to identify tissue (bone, muscle, and blood vessels) to prevent inadvertent intraneural or intravascular needle plac ement and injection. The spread of local anesthetic was confirmed with live ultrasound imaging.?Single-Shot: ??Single-shot Local Anesthetic Volume(s) Injected for Nerve Block: ?? BUpivacaine 0.5%, 30 mL Nerve Sensory/MotorTest: ??Events: no complications ?? Staff: ??Attending Physician:: ??Nakul Lee MD Conrado Lee MD TEMPORARY RECEPTIONIST [facility] documented in this encounter Visit Diagnoses Not on filedocumented in this encounter Administered Medications Inactive Administered Medications - up to 3 most recent administrations Medication Order MAR Action Action Date Dose Rate Site BUpivacaine (pf) (Marcaine) (5 Given 06/16/2021 5:00 PM EDT 30 m Ls mg/mL) 0.5% injection Perineural, Starting on Mon06/16/21 at 1700, Until Mon06/16/21 at 1700, Anesthesia Intra-op, Routine ceFAZolin (Ancef) 1 g in dextrose 5% 50 mL Given 06/16/2021 8:51 PM EDT 2 g infusion Intravenous, PRN, Starting on Mon06/16/21 at 1640, Until Mon06/16/21 at 2301, Administer over 30 Minutes, Anesthesia Intra-op Given 06/16/2021 4:40 PM EDT 2 g dexmedetomidine (Precedex) (4 mcg/mL) bolus Given 06/16/2021 4:1 3 PM EDT 8 mcg injection (Anesthsia) Intravenous, PRN, Starting on Mon06/16/21 at 1609, Until Mon06/16/21 at 2301, Anesthesia Intra-op, Routine Given 06/16/2021 4:09 PM EDT 12 mcg fentaNYL (pf) (50 mcg/mL) multi-dose Given 06/16/2021 4:26 PM ED T 50 mcg injection Intravenous, PRN, Starting on Mon06/16/21 at 1619, Until Mon06/16/21 at 2301, Anesthesia Intra-op, Routine Given 06/16/2021 4:19 PM EDT 50 mcg HYDROmorphone (Dilaudid) (2 mg/mL) Given 06/16/2021 10:31 PM EDT 0.6 mg multi-dose injection solution Intravenous, PRN, Starting on Mon06/16/21 at 2231, Until Mon06/16/21 at 2301, Anesthesia Intra-op, Routine insulin regular (HumuLIN R,NovoLIN R) (100 Given 06/16/2021 9:19 PM EDT 2 Units unit/mL) injection vial Intravenous, PRN, Starting on Mon06/16/21 at 2119, Until Mon06/16/21 at 2301, Anesthesia Intra-op, Routine lactated ringers infusion New Bag 06/16/2021 4:09 PM EDT Intravenous, CONTINUOUS PRN, Starting on Mon06/16/21 at 1609, Until Mon06/16/21 at 2301, Anesthesia Intra-op lactated ringers infusion New Bag 06/16/2021 4:30 PM EDT Intravenous, CONTINUOUS PRN, Starting on Mon06/16/21 at 1630, Until Mon06/16/21 at 2301, Anesthesia Intra-op lidocaine (pf) (Xylocaine) (20 mg/mL) 2% Given 06/16/2021 4:19 P M EDT 100 mg injection syringe Intravenous, PRN, Starting on Mon06/16/21 at 1714, Until Mon06/16/21 at 2301, Anesthesia Intra-op, Routine ondansetron (pf) (Zofran) (2 mg/mL) inje ction Given 06/16/2021 10:21 PM EDT 8 mg Intravenous, PRN, Starting on Mon06/16/21 at 2221, Until Mon06/16/21 at 2301, Anesthesia Intra-op, Routine PHENYLephrine (Az-Synephrine) Rate/Dose Change 06/16/2021 7:53 20 mcg/min 15 mL/hr (80 mcg/mL) in sodium chloride PM EDT 0.9% 250 mL infusion Intravenous, CONTINUOUS PRN, Starting on Mon06/16/21 at 1651, Until Mon06/16/21 at 2301, Anesthesia Intra-op, Routine Rate/Dose Change 06/16/2021 6:58 PM EDT 15 mcg/min 11.25 mL/hr Rate/Dose Change 06/16/2021 6:23 PM EDT 10 mcg/min 7.5 mL/hr PHENYLephrine in NS (PF) (AZ-SYNEPHRINE) 0.8 Given 9:32 PM EDT 80 mcg mg/10 mL (80 mcg/mL) multi-dose injection Syrg Intravenous, PRN, Starting on Mon06/16/21 at 1630, Until Mon06/16/21 at 2301, Anesthesia Intra-op, Routine Given 06/16/2021 8:48 PM EDT 120 mcg Given 06/16/2021 8:39 PM EDT 40 mcg propofoL (Diprivan) 10 mg/mL bolus injection Given 4:19 PM EDT 200 mg (Anesthesia) Intravenous, PRN, Starting on Mon06/16/21 at 1714, Until Mon06/16/21 at 2301, Anesthesia Intra-op propofoL (Diprivan) infusion Rate/Dose 06/16/2021 5:31 30 mcg/kg/min 17.388 Intravenous, CONTINUOUS PRN, Change PM EDT mL/hr Starting on Mon06/16/21 at 1630, Until Mon06/16/21 at 2301, Anesthesia Intra-op, Routine Rate/Dose Change 06/16/2021 5:06 PM EDT 50 mcg/kg/min 28.98 mL/hr New Bag 06/16/2021 4:30 PM EDT 30 mcg/kg/min 17.388 mL/hr rocuronium (Zemuron) (10 mg/mL) multi-dose Given 06/16/2021 9:15 PM EDT 20 mg injection Intravenous, PRN, Starting on Mon06/16/21 at 1714, Until Mon06/16/21 at 2301, Anesthesia Intra-op, Routine Given 06/16/2021 7:49 PM EDT 10 mg Given 06/16/2021 6:59 PM EDT 10 mg sugammadex (Bridion) 100 mg/mL injection Given 06/16/2021 10:38 PM EDT 200 mg Intravenous, PRN, Starting on Mon06/16/21 at 2238, Until Mon06/16/21 at 2301, Anesthesia Intra-op, Routine documented in this encounter Care Teams Diffusion Furnace Operator Relationship Specialty Start Date End Date Derek Torres PA PCP - General Internal Medicine 06/07/21 [address] [place] [address] documented as of this encounter
--- OUTSIDE RECORDS SUMMARY | 2022-10-07 18:40 | XMS_ITS | Encounter Summary ---
:1955 [place] [address] Care Team Providers Name Role Phone Derek Torres Primary Care Provider Reason for Referral Consultation (Routine) - Closed Specialty Diagnoses / Procedures Referred By Contact Refer red To Contact Nephrology Diagnoses Malignant neoplasm of right renal pelvis CKD (chronic kidney disease), stage II Daysi Montilla PA [facility] [address] [place] [address] [place] [address] [place] [address] Referral ID Status Reason Start Date Expiration Date Visits V isits Requested Authorized [id number] Closed Consult, 06/23/2021 06/23/2022 1 1 Test & Treat Reason for Visit Auth/Cert Specialty Diagnoses / Procedures Referred By Contact Refer red To Contact Diagnoses Renal cancer 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 ? Procedures PRO NEPHRECTOMY, W/PART. URETECTOMY @LAPAROSCOPY TOTAL NEPHROURETERECTOMY, ROBOTICS ASSIST (WRVU 25.36) MODIFIER ROBOT,BOAZ BRUSH Referral ID Status Reason Start Date Expiration Date Visits Requ ested Visits Authorized [id number] 1 1 Encounter Details Date Type Department Care Team Description 06/16/2021 - Hospital Encounter 3 Izabella Garcia, Malign ant neoplasm of right renal pelvis; 06/24/2021 Isela Moon MD Tachycardia; [facility] CKD (chronic kidney disease) , stage II; [facility] Malignant neoplasm of right kidney Drive UROLOGY [place], [place] [address] [phone] Social History Tobacco Use Types Packs/Day Years Used Date Former Smoker Cigarettes 0.25 0 Quit: 06/2020 Smokeless Tobacco: Never Used Alcohol Use Standard Drinks/Week Comments Not Currently 0 (1 standard drink = 0.6 oz pure alcoho l) Sex Assigned at Date Recorded Not on file documented as of this encounter Last Filed Vital Signs Vital Sign Reading Time Taken Comments Blood Pressure 161/82 06/24/2021 11:19 AM EDT Pulse 83 06/23/2021 11:30 PM EDT Temperature 36.8 ??C (98.2 ??F) 06/24/2021 11:19 AM EDT Respiratory Rate 18 06/24/2021 11:19 AM EDT Oxygen Saturation 96% 06/24/2021 11:19 AM EDT Inhaled Oxygen Concentration - - Weight 100.8 kg (222 lb 3.2 oz) 06/24/2021 12:50 AM EDT Height 161.3 cm (5' 3.5) 06/16/2021 11:21 AM EDT Body Mass Index 38.74 06/23/2021 6:51 AM EDT documented in this encounter Discharge Summaries Daysi Montilla PA - 06/24/2021 1:04 PM EDT Discharge Summary Patient Name: Nancy Pichardo Patient Age: 66 y.o. Language: Dominican Race: White Ethnicity: Not nor Admit date: 06/16/2021 Discharge date: 06/24/21 Attending Physician: Izabella Davis MD Discharge Physician: same Discharge Diagnoses (Hospital Problems) and Secondary Diagnoses (Chronic Problems): Active Hospital Problems Diagnosis ??? Renal cancer ??? Type 2 diabetes mellitus, with long-term current use of insulin Resolved Hospital Problems No resolved problems to display. Active Non-Hospital Problems Diagnosis ??? Acute congestive heart failure ??? Acute [...] - Obesity->better weight control ??? CIS - Hyperlipidemia ??? CIS - Tobacco use Operations/Major Procedures: Procedure(s): @LAPAROSCOPY TOTAL NEPHROURETERECTOMY, ROBOTICS ASSIST (WRVU 25.36) MODIFIER BOAZ SANTANA 06/16/2021 - 06/17/2021 History of Presentation (From Dr. Jimenez's H&P): Nancy Pichardo 66 y.o. female with T3N2M0 UCC of the upper tract s/p neoadjuvant chemotherapy with complete response who presents for right-sided robotic- assisted lap nephroureterectomy and retroperitoneal lymph node dissection. ?? She has been holding her Apixaban for 8 days. ?? No changes to medications, no fevers, chills, headaches, chest pain, new cough, nausea, emesis, constipation, diarrhea, difficulty urinating, one sided numbness or tingling sensation. Denies recent hospitalization. Hospital Course: Patient was admitted electively to [facility] via the same day surgery program and underwent the above procedure. Operative findings were as follows: Lysis of adhesions Minor Veress needle injury to liver Small venotomy made in IVC repaired primarily 2 renal veins, 1 branching renal artery Uncomplicated right robotic-assisted laparoscopic nephroureterectomy; existing right ureteral stent removed with specimen Cystotomy closed in two layers and water-tight to 300cc Matted retroperitoneal fibrosis; para-caval and [id number] retroperitoneal lymph node dissection peformed She tolerated surgery well and was tranferred from the PACU to the general floor in good condition a few hours after surgery. Patient's hospital course was signficant for acute blood loss anemia in setting of chronic anemia of malignancy; recheck demonstrated stable Hgb at 7-8. She remained afebrile t hroughout her hospital stay. She was seen by the Diabetes Management team because her long acting insulin was not on formulary. Medicine was consulted due to elevated BP and hyperkalemia in setting of solitary kidney; they recommended holding losartan and spironolactone and starting amlodipine 5mg with close follow up with PCP. Vascular surgery was consulted regarding anticoagulation for thrombophlebitis (since 02/2021) and recommended stopping Eliquis. Pain control has been achieved with dilaudid 2-4mg every 4-6h PRN. Patient did not tolerate shorter intervals due to mild narcotic/hospital delirium. This improved with spacing out narcotic doses, scheduled tylenol, and patient re-orientation. Fluoroscopic cystogram on 06/23 did not demonstrate a leak and Leach catheter was removed. Today, on POD#8 she has met all criteria for discharge to rehab: her pain is well controlled with medications by mouth (PO dilaudid/tylenol), she is tolerating a regular diet, is voiding without difficulties, and is up and ambulating with assistance. She has been deemed safe for discharge with follow u p for wound check and labs in one week (requested). Vital Signs at Discharge: Weight: Wt Readings from Last 1 Encounters: 06/24/21 100.8 kg (222 lb 3.2 oz) Height: Ht Readings from Last 1 Encounters: 06/16/21 161.3 cm (5' 3.5) BMI: Body mass index is 38.74 kg/m??. Last value Range last 24 hrs Temperature Temp: 36.8 ??C (98.2 ??F) Temp: [36.7 ??C (98.1 ??F)-36.8 ??C (98.3 ??F)] Heart Rate Heart Rate: 83 Heart Rate: [83-108] Blood Pressure BP: 161/82 BP: (130-181)/(62-87) Respiratory Rate Resp: 18 Resp: [16-18] SpO2 SpO2: 96 % SpO2: [87 %-96 %] Exam at Discharge: General: NAD CV: regular rate Pulm: nonlabored breathing on RA Abd: soft, appropriately tender, non-distended, incisions are c/d/i Ext: warm, well perfused, 1+ symmetric LE edema Functional and Cognitive Status: Ambulating and cognitively intact. Important Studies and Lab Data: Lab Results Component Value Date WBC 12.8 (H) 06/22/2021 RBC 2.64 (L) 06/22/2021 HGB 7.7 (L) 06/22/2021 HCT 24.3 (L) 06/22/2021 MCV 92.0 06/22/2021 MCH 29.2 06/22/2021 MCHC 31.7 06/22/2021 PLATELET 238 06/22/2021 RDWCV 14.9 (H) 06/22/2021 Lab Results Component Value Date NA 137 06/24/2021 K 4.8 06/24/2021 CL 100 06/24/2021 CO2 27 06/24/2021 BUN 36 (H) 06/24/2021 CREATININE 1.65 (H) 06/24/2021 GLUCOSE 135 06/24/2021 CALCIUM 9.1 06/24/2021 Studies: 06/21 CXR Bilateral pleural effusions without evidence of overt pulmonary edema. Pending Studies and Lab Data: Surgical pathology Discharge Conditions/Prognosis: Stable Discharge to: Rehab Updated Allergies/ADRs: Allergies Allergen Reactions ??? Atorvastatin Calcium CIS [...] [Transparent Dressings] Dermatitis Tegaderm/stat-lock of IV dressing Immunizations Given this Hospitalization: Immunization History Administered Date(s) Administered ??? Influenza Vaccine, Whole 10/18/2005, 10/26/2006, 09/25/2010 ??? Pneumococcal Polyvalent 23 10/16/2007 Discharge Medications: Your Medications New Medications Dose Details acetaminophen 325 mg Tab Commonly known as: Tylenol Take 3 tablets by mouth every 6 hours as needed for Pain. 975 mg Refills: 0 amLODIPine 5 mg Tab Commonly known as: Norvasc Take 1 tablet by mouth daily. 5 mg Refills: 0 HYDROmorphone 2 mg Tab Commonly known as: Dilaudid Take 1-2 tablets by mouth every 4 hours as needed for Pain. 2-4 mg Quantity: 10 tablet Refills: 0 metoprolol tartrate 25 mg Tab Commonly known as: Lopressor Take 0.5 tablets by mouth 2 times daily. 12.5 mg Refills: 0 polyethylene glycoL 17 gram Pwpk Commonly known as: Miralax Take 17 g by mouth daily as needed. 17 g Refills: 0 sucralfate 100 mg/mL Susp Commonly known as: Carafate Take 10 mLs by mouth 4 times daily. 1 g Refills: 0 Continued medications with new dosing Dose Details losartan 100 mg Tab Commonly known as: COZAAR Take 1 tablet by mouth daily. HOLD THIS MEDICATION UNTIL FOLLOW UP WITH PCP ONE WEEK AFTER DISCHARGE Start taking on: June 30, 2021 What changed: ?? additional instructions ?? These instructions start on June 30, 2021. If you are unsure what to do until then, ask your doctor or other care provider. 100 mg Refills: 0 spironolactone 25 mg Tab Commonly known as: Aldactone Take 0.5 tablets by mouth daily. PLEASE HOLD UNTIL DISCUSSING WITH PCP ONE WEEK AFTER DISCHARGE. What changed: additional instructions 12.5 mg Refills: 0 Continued medications, unchanged Dose Details blood sugar diagnostic strips Strp 1 strip [...] 3 Generic drug: insulin lispro Refills: 0 Insulin Tresiba FlexTouch U-100 100 unit/mL (3 mL) Inpn Inject 58 Units subcutaneously daily. Generic drug: insulin degludec 58 Units Refills: 0 Jeanne Pen Needle 32 gauge x 5/32 Ndle Generic drug: insulin needles (disposable) Refills: 0 nystatin Powd Commonly known as: MYCOSTATIN APPLY 1 GRAM TOPICALLY TWO TIMES A DAY NEEDED FOR 30 DAYS Refills: 0 nystatin-triamcinolone Crea Commonly known as: MYCOLOG II Apply topically Twice daily. Refills: 0 senna 8.6 mg Tab Commonly known as: Senokot Take 2 tablets by mouth 2 times daily. 2 tablet Quantity: 120 tablet Refills: 3 sodium phosphates Enem Commonly known as: FLEET Place 1 enema rectally once as needed. 1 enema Refills: 0 STOPPED Medications apixaban 2.5 mg Tab Commonly known as: Eliquis Smoking Status at Discharge: Social History Tobacco Use Smoking Status Former Smoker ??? Packs/day: 0.25 ??? Years: 0.00 ??? Pack years: 0.00 ??? Types: Cigarettes ??? Quit date: 06/2020 ??? Years since quittin.9 Smokeless Tobacco Never Used Instructions Given to Patient at Discharge: Patient Instructions UROLOGY NEPHROURETERECTOMY DISCHARGE INSTRUCTIONS Call your doctor for: ??? fevers greater than 100.5 ??? severe nausea or vomiting ??? increasing pain not controlled by pain medications ??? increasing redness or drainage from incisions ??? decreased urine output, inability to urinate ??? Burning with urination or urinary frequency The number for questions is before 5 PM weekdays and [phone] after 5 PM and weekends, and ask for operations liaison Urologist. Special Considerations for Solitary Kidney: Do not take megavitamins, herbal products, and NSAID pain relievers (such as ibuprofen, Motrin, Advil, naproxen, Aleve), unless instructed otherwise by your Physician. Please be sure that you take adequate fluids with all medication. It is important to discuss any medications, dietary supplements with your physician before starting them. Please be sure to remind all prescribing physicians that you have one kidney. Medication Changes: Please hold your losartan and your spironolactone until you see your PCP (preferably about one week after discharge). Continue furosemide and metoprolol. You have started amlodipineduring this hospital stay for blood pressure control. Resume your home insulin/diabetes treatment regimen. Activity level: No heavy lifting greater than 10 pounds (about equal to a full gallon jug) for the next 4-6 weeks or until cleared to do so at follow-up appointment. Otherwise activity as tolerated by comfort level. Take frequent short walks throughout the day. There is no such thing as too much walking. Diet: You may resume your regular diet as tolerated. Drink plenty of fluids. Bowel Meds: The major problem most patients have after surgery is return of bowel function, gas and constipation. Take stool softeners as directed until bowels return to normal. If needed, take a laxative such as Miralax, Senna, Dulcolax. Generic is fine. Driving: No driving while still taking opioid pain medications (wait at least 6- 8 hours since last dose). No driving if you are still sore from surgery as it may limit your ability to react quickly if necessary. Shower/Bath: You may shower and get incision(s) wet. Pat dry immediately following your shower. Do not scrub them vigorously for the next 2-3 weeks. Do not soak incision(s) (i.e. soaking in bath, hot tub, or swimming) until told you may do so by a doctor, as this may promote a wound infection. Wound Care: You may cover wounds with sterile gauze as needed to prevent incision rubbing on clothesor for any seepage. Your sutures are absorbable and do not need to be removed. Your incision is covered by a layer of surgical glue which will peel off on its own. Do not pick it off. Urology Follow up Appointments: Your surgical follow-up appointment will be scheduled with Dr. Davis in approximately one week with labs prior (appointment requested). Appointment will be mailed to you. Please call (clinic number for appointments) to confirm date and time of your appointment if you do not receive it. Special considerations for narcotic pain medication: You may be given a prescription for a narcotic medication immediately following your surgery. Narcotics are prescribed for short-term use to help treat your pain. Surgical pain requiring narcotics willusually be greatly decreased 2-3 days after surgery & should be mild to absent by 10-14 days. We will prescribe a narcotic pain reliever for no longer than 1 week following your surgery. This will be determined by your surgeon. Narcotics do not reduce inflammation and it is inflammation that is usually a major cause of pain after surgery. Narcotics have many side effects such as constipation, lightheadedness, dizziness, sedation, confusion, nausea and vomiting. Driving and the use of alcohol are not recommended while you are using narcotic pain medications. As you progress through your post-operative period, your pain should decrease and the use of narcotic medications should be less necessary. To reduce your chance of side effects, it is recommended thatyou save your narcotic medication for nighttime use and switch to acetaminophen (Tylenol) during theday. Alternative means of pain relief such as rest and relaxation, positioning, as well as decreasing stimulants such as coffee, tea, soft drinks, and nicotine may also help to alleviate pain. If you continue to experience significant pain 4-5 days after your procedure, it may be necessary hernando re-evaluated by your physician. PRESCRIPTION RENEWALS: Renewal requests should be called in to our office. Narcotic renewals may be requested from 8am-4pm Monday through Monday. Due to patient safety, narcotic renewals will not be honored after hours or on weekends. It is best to make your request 2-3 days before you run out of your medication as it will take at least 24 hours for physician approval and nurse follow-up. Note that certain prescriptions, such as Percocet, Oxycodone, Vicodin, & Hydrocodone can not be called in to a pharmacy and must be picked up or mailed to you. If mailed to you, expect 2-5 businessdays prior to arrival. General Instructions Insulin Discharge Instructions Instructions for Tresiba Insulin (LONG ACTING) 1. Inject Tresiba 50 units insulin every 24 hours at bedtime. Check blood glucose (BG) before breakfast ??? Instructions for Mealtime Humalog Insulin ? This is the rapid-acting insulin, used at mealtime to prevent a high BG after you eat. Check your BG before each meal. ??? 1. If your BG is 100 or higher, inject Humalog right before eating. 2. If your BG is 80 - 100, inject Humalog right after eating. 3. If your BG is lower than 80, or you have symptoms of a low BG, treat the low BG first, then eat your meal and take the Humalog after eating. ? 4. Inject 0-10 units of Humalog for breakfast, 0-10 units for lunch and 0-10 units for dinner based on a 1 unit per every 6 gram carbohydrate insulin to carbohydrate ratio. ? For a low carb/small meal take 6 units, medium meal take 8 units for a large/high carb meal take10 units Add the following amoung based on BG before each meal CORRECTION BOLUS Correction Factor 20 BG 140 - 160 ADD 1 unit BG 161 - 180 ADD 2 units BG 181 - 200 ADD 3 units BG 201 - 220 ADD 4 units BG 221 - 240 ADD 5 units BG 241 - 260 ADD 6 units BG 261 - 280 ADD 7 units BG 281 - 300 ADD 8 units BG > 300 ADD 10 units and call doctor ??? Treatment of Low Blood Sugar (Hypoglycemia) If your BG is lower than 80, you are likely to feel shaky, sweaty and lightheaded. This is a signal that your body needs more sugar. Quickly eat or drink a small serving of something sweet, such as: 4 ounces fruit juice or regular (not diet) soda 6 lifesavers small box of raisins 4 glucose tablets (~15 gm of glucose) If your BG is very low <50, you can double the amount above or take 30 gm of glucose gel/tablets. Sit and rest and you should feel better within a few minutes. Once you are feeling better, try to determine why your BG was so low. Common causes of hypoglycemia include skipping a meal, lots of exercise, too much insulin or any combination of these things. Understanding the cause my help you to avoidanother low BG in the future. Call your doctor for blood sugars less than 80 or greater than 300 twice in one day to have your insulin doses adjusted. Future Appointments and Orders Future Appointments and Orders Future Appointments Provider Department Dept Phone 07/05/2021 12:30 PM LAB, [facility] L Lab [address] [place] [address] Arrive at: Head Of Commission Department Area [phone] 07/05/2021 1:40 PM Izabella Davis MD Urology at [facility] Arrive at: Head Of Commission Department Area [phone] 07/06/2021 10:30 AM Adilene Link APRN; Alberto Bhatia MD Hematology/Oncology at [facility] Arrive at: [facility] door at end of hallway [phone] Future Orders Complete By Expires Basic Metabolic Panel (non-fasting) [LAB15 Custom] 06/30/2021 (Approximate) 07/24/2021 Process Instructions: INCLUDES: Calcium, BUN, Creat, GFR, Glucose, Lytes Scheduling Instructions: Comments: Questions: CBC (with Diff) [HKM085 Custom] 06/30/2021 (Approximate) 07/24/2021 Process Instructions: INCLUDES: WBC, RBC, Hgb, Hct, Platelets, RBC Indices and Differential Scheduling Instructions: Comments: Questions: Referral to Nephrology [REF45 Custom] As directed Process Instructions: If no progress note charted, please enter Clinical details in comments. Scheduling Instructions: Questions: My question or request is: Solitary kidney, HTN, CKD stage II, pt would like to follow here. Primary Care Provider: DELORES Zaman [phone] Follow-up Recommendations for Providers: Please see discharge instructions. Call your doctor if: Please call your doctor immediately or go to an Emergency Department if you notice worsening pain not controlled by pain medications, uncontrolled headache, vision changes, chest pain, difficulty breathing, persistent nausea and vomiting, new redness or swelling in any extremities, new onset weakness or changes in sensation, or for any fevers greater than 101.3 F. Your care was managed by the Urology Team at [facility]. If you have any questions or concerns, please feel free to contact us. Provider Contact Information: Urology Clinic: [facility] (after business hours): documented in this encounter Discharge Instructions Discharge InstructionsMeera Mohr APRN - 06/21/2021 4:13 PM EDT Insulin Discharge Instructions Instructions for Tresiba Insulin (LONG ACTING) 1. Inject Tresiba 50 units insulin every 24 hours at bedtime. Check blood glucose (BG) before breakfast ??? Instructions for Mealtime Humalog Insulin ? This is the rapid-acting insulin, used at mealtime to prevent a high BG after you eat. Check your BG before each meal. ??? 1. If your BG is 100 or higher, inject Humalog right before eating. 2. If your BG is 80 - 100, inject Humalog right after eating. 3. If your BG is lower than 80, or you have symptoms of a low BG, treat the low BG first, then eat your meal and take the Humalog after eating. ? 4. Inject 0-10 units of Humalog for breakfast, 0-10 units for lunch and 0-10 units for dinner based on a 1 unit per every 6 gram carbohydrate insulin to carbohydrate ratio. ? For a low carb/small meal take 6 units, medium meal take 8 units for a large/high carb meal take10 units Add the following amoung based on BG before each meal CORRECTION BOLUS Correction Factor 20 BG 140 - 160 ADD 1 unit BG 161 - 180 ADD 2 units BG 181 - 200 ADD 3 units BG 201 - 220 ADD 4 units BG 221 - 240 ADD 5 units BG 241 - 260 ADD 6 units BG 261 - 280 ADD 7 units BG 281 - 300 ADD 8 units BG > 300 ADD 10 units and call doctor ??? Treatment of Low Blood Sugar (Hypoglycemia) If your BG is lower than 80, you are likely to feel shaky, sweaty and lightheaded. This is a signal that your body needs more sugar. Quickly eat or drink a small serving of something sweet, such as: 4 ounces fruit juice or regular (not diet) soda 6 [employer] small box of raisins 4 glucose tablets (~15 gm of glucose) If your BG is very low <50, you can double the amount above or take 30 gm of glucose gel/tablets. Sit and rest and you should feel better within a few minutes. Once you are feeling better, try to determine why your BG was so low. Common causes of hypoglycemia include skipping a meal, lots of exercise, too much insulin or any combination of these things. Understanding the cause my help you to avoidanother low BG in the future. Call your doctor for blood sugars less than 80 or greater than 300 twice in one day to have your insulin doses adjusted. Patient Bonilla Gregory MD - 06/18/2021 11:02 AM EDT UROLOGY NEPHROURETERECTOMY DISCHARGE INSTRUCTIONS Call your doctor for: ??? fevers greater than 100.5 ??? severe nausea or vomiting ??? increasing pain not controlled by pain medications ??? increasing redness or drainage from incisions ??? decreased urine output, inability to urinate ??? Burning with urination or urinary frequency The number for questions is before 5 PM weekdays and after 5 PM and weekends, and ask for operations liaison Urologist. Special Considerations for Solitary Kidney: Do not take megavitamins, herbal products, and NSAID pain relievers (such as ibuprofen, Motrin, Advil, naproxen, Aleve), unless instructed otherwise by your Physician. Please be sure that you take adequate fluids with all medication. It is important to discuss any medications, dietary supplements with your physician before starting them. Please be sure to remind all prescribing physicians that you have one kidney. Medication Changes: Please hold your losartan and your spironolactone until you see your PCP (preferably about one week after discharge). Continue furosemide and metoprolol. You have started amlodipineduring this hospital stay for blood pressure control. Resume your home insulin/diabetes treatment regimen. Activity level: No heavy lifting greater than 10 pounds (about equal to a full gallon jug) for the next 4-6 weeks or until cleared to do so at follow-up appointment. Otherwise activity as tolerated by comfort level. Take frequent short walks throughout the day. There is no such thing as too much walking. Diet: You may resume your regular diet as tolerated. Drink plenty of fluids. Bowel Meds: The major problem most patients have after surgery is return of bowel function, gas and constipation. Take stool softeners as directed until bowels return to normal. If needed, take a laxative such as Miralax, Senna, Dulcolax. Generic is fine. Driving: No driving while still taking opioid pain medications (wait at least 6- 8 hours since last dose). No driving if you are still sore from surgery as it may limit your ability to react quickly if necessary. Shower/Bath: You may shower and get incision(s) wet. Pat dry immediately following your shower. Do not scrub them vigorously for the next 2-3 weeks. Do not soak incision(s) (i.e. soaking in bath, hot tub, or swimming) until told you may do so by a doctor, as this may promote a wound infection. Wound Care: You may cover wounds with sterile gauze as needed to prevent incision rubbing on clothesor for any seepage. Your sutures are absorbable and do not need to be removed. Your incision is covered by a layer of surgical glue which will peel off on its own. Do not pick it off. Urology Follow up Appointments: Your surgical follow-up appointment will be scheduled with Dr. Davis in approximately one week with labs prior (appointment requested). Appointment will be mailed to you. Please call (clinic number for appointments) to confirm date and time of your appointment if you do not receive it. Special considerations for narcotic pain medication: You may be given a prescription for a narcotic medication immediately following your surgery. Narcotics are prescribed for short-term use to help treat your pain. Surgical pain requiring narcotics willusually be greatly decreased 2-3 days after surgery & should be mild to absent by 10-14 days. We will prescribe a narcotic pain reliever for no longer than 1 week following your surgery. This will be determined by your surgeon. Narcotics do not reduce inflammation and it is inflammation that is usually a major cause of pain after surgery. Narcotics have many side effects such as constipation, lightheadedness, dizziness, sedation, confusion, nausea and vomiting. Driving and the use of alcohol are not recommended while you are using narcotic pain medications. As you progress through your post-operative period, your pain should decrease and the use of narcotic medications should be less necessary. To reduce your chance of side effects, it is recommended thatyou save your narcotic medication for nighttime use and switch to acetaminophen (Tylenol) during theday. Alternative means of pain relief such as rest and relaxation, positioning, as well as decreasing stimulants such as coffee, tea, soft drinks, and nicotine may also help to alleviate pain. If you continue to experience significant pain 4-5 days after your procedure, it may be necessary hernando re-evaluated by your physician. PRESCRIPTION RENEWALS: Renewal requests should be called in to our office. Narcotic renewals may be requested from 8am-4pm Monday through Monday. Due to patient safety, narcotic renewals will not be honored after hours or on weekends. It is best to make your request 2-3 days before you run out of your medication as it will take at least 24 hours for physician approval and nurse follow-up. Note that certain prescriptions, such as Percocet, Oxycodone, Vicodin, & Hydrocodone can not be called in to a pharmacy and must be picked up or mailed to you. If mailed to you, expect 2-5 businessdays prior to arrival. documented in this encounter Medications at Time of Discharge Medication Sig Dispensed Refills Start Date End Date acetaminophen Take 3 tablets by 0 06/23/2021 [...] U-100) 100 unit/mL (3 mL) Insulin Pen sodium phosphates Place 1 enema rectally 0 202003/22/2022 (FLEET) Enema once as needed. furosemide (Lasix) 20 Take 20 mg by mouth 2 0 08/09/2022 mg Tablet times daily. senna (Senokot) 8.6 mg Take 2 tablets by 120 tablet 3 202007/27/2021 Tablet mouth 2 times daily. docusate sodium Take 100 mg by mouth 2 0 01/11/2022 (Colace) 100 mg times daily. Capsule nystatin-triamcinolone Apply topically Twice 0 01/04/2022 (MYCOLOG II) Cream daily. documented as of this encounter Progress Notes Papa Bullock RN - 06/24/2021 1:37 PM EDT D/C teaching provided to pt. Report given to ambulance staff, all questions answered. Pt was provided opportunity to void prior to leaving. Pt was taking on EMS stretcher with EMS staff. Discharge summary faxed to [facility]. Vern Donahue - 06/24/2021 1:11 PM EDT Yeast Stacker Encounter Note Patient Name: Nancy Pichardo : [id number] MR#: [id number] Admit Date: 06/16/2021 10:09 AM Hospital Day 8 days Narrative: Follow-up visit for continued assessment and support. Pt was awake, alert, oriented and in chair. Assessment: Patient coping positively with stresses of illness/hospitalization at this time. Pt saysthat she is feeling better and was visiting and pt has family care and support. Intervention and Outcome: Provided emotional, spiritual support and encouraging presence. Chaplaincyservices accepted.Conversation to build trusting relationship.Provided pastoral presence.Provided spiritual guidance. Follow-up:yes Time in Direct Care:10 Mins Vern Donahue 06/24/2021 Tina Ang - 06/24/2021 11:32 AM EDT Office of Care Management/Interlibrary Loan Specialist Patient Name: Nancy Pichardo : 1955 Patient has been offered a snf bed at [facility] arranged for a 1300 transport. Ambulance will need: Medicare ambulance form completed and signed (MD or Flooring Sales Manager RN/ENVIRONMENTAL INTERN) Copy of patient demographics [place] Out of Hospital DNR/DNI order, if active No MD to MD report necessary Please call Nursing Report to , ask for dramatic critic. Info to accompany patient: Copies of Medication Administration Records and IV sheets for past 10 days. Plan: Interlibrary Loan Specialist will be available to the patient and Flooring Sales Manager-RN and/or Olericulture Professor for further assistance. Patient will be discharged to: [address] Jorge Dailey Leigh Ann Dolan RN - 06/23/2021 5:11 PM EDT Pt's insurance has declined her rehab admission in the [facility] ([place] state[place] No guidance given to [facility] if [place] state has rehab benefits or not. ?? RN/CM spoke with patient and spouse. Received call: Debora Jensen - [facility] - call her with any dc info: [phone] (H). Per patient - okay to give her information. Based on discussions with the multi-disciplinary healthcare team, the patient would benefit from SNFlevel of care at discharge. ?? I have spoken with the patient to discuss discharge planning needs. I have provided the [facility], Office of Care Management letter from the School Bus Attendant pertaining to rehab referrals. I have also provided a letter describing our affiliations within the [facility] and educatedthem about their right to choose where referrals are. ?? Provided patient with [facility] Star Quality Rating for SNF, LTAC and/or IRF hand out. ?? I reviewed the different levels of rehab including SNF, swing, acute and LTAC with the patient. ?? The patient has been provided a list of facilities within their preferred geographic area. ?? I have requested that the patient provide at least three choices for referral. ?? The patient have requested referrals to: 1. [facility] [address] [place] [address] ?? [phone] ?? 2. [facility] ([facility]) [address] [place] [address] ?? [phone] ?? 3. [facility] ([facility]) [address] [place] [address] ?? [phone] ? Expected date of discharge: Medically ready today: 06/23/2021 Has patient received the COVID vaccine: COVID Vaccine: Pfizer vaccines - per [facility] - EMS gave to her Dates: 03/29/2021 and 04/19/2021 Does patient have COVID vaccine card: YES Copy of Card Obtained: NO Note routed to Interlibrary Loan Specialist who will communicate referrals to facilities and provide any required information. Ml Keenan PT - 06/23/2021 4:44 PM EDT Physical Therapy Contact Note Attempted to visit patient for follow up physical therapy and progression of functional mobility, however on arrival, pt visibly upset, crying, and inconsolable. Pt with significant anxiety regarding discharge planning and rehab placement (thinks that rehabs do not want her, and her insurance will notpay for it). Will attempt therapy tomorrow as appropriate/able. Staff Communication/Mobility Recommendations: ?? Continue to ambulate with 1 assist and 4WW Will continue to follow up as appropriate during hospital course. Please page with any questions or concerns. Ml Keenan PT, DPT Pager: [phone] 06/23/21 Inpatient Rehabilitation Department Leigh Ann Dolan RN - 06/23/2021 11:19 AM EDT RN/CM called: [address] [id number] ?? Spoke with Tina working with BC/BS for PA Has made several calls to BC/BS Pending review by facility and BC/BS for PA for rehab stay. night coordinator will follow up with spouse today. Update: 2:15 PM They have NOT heard of anything from BC/BS regarding PA. Phone calls and Emails sent by facility. Team updated Update: 4:00 PM Per Allison - [facility] has declined her. Insurance denied - does not have that coverage in [place] Team updated. Pt/spouse aware. Will regroup and review possible [place] SNF facilities to review, get PA and see if NH is in-network with spouses' primary insurance (he still works and confirmed with [employer]). Jesus (Ilan) MORTEZA Dolan RN/CM - Cellphone: [phone] Pager: [phone] Covering Service RN/CM Bonilla Mckeon MD - 06/23/2021 8:18 AM EDT Urology Progress Note Patient Name: Nancy Pichardo : 1955 Admit date: 06/16/2021 Attending Physician: Izabella Davis MD ID: Nancy Pichardo is a 66 y.o. female with a history of right upper tract UCC 7 Days Post-Op s/p right laparoscopic nephroureterectomy. Subjective/24hr Events: - JOE - BP continues to run high 155-175 SBP despite home metoprolol, lasix - holding home losartan/spironolactone right now due to hyperkalemia/solitary kidney - pain under adequate control - tolerating CC diet - no complaints this morning - denies fevers/chills, chest pain, SOB, n/v Current Medications: ??? furosemide 20 mg Oral BID ??? insulin lispro 0-15 Units Subcutaneous TID WC ??? insulin glargine 45 Units Subcutaneous Q24H ??? bisacodyL 10 mg Rectal Daily ??? lidocaine 3 patch Transdermal Q24H And ??? lidocaine 1 patch Transdermal Q24H ??? metoprolol tartrate 12.5 mg Oral 2 times per day ??? pantoprazole EC 40 mg Oral Daily ? ? sucralfate 1 g Oral 4 Times Daily AC & HS ??? insulin lispro 1-6 Units Subcutaneous Q4H MO ??? senna 8.6 mg Oral BID ??? sodium chloride 0.9 % (flush) 5 mL Intravenous BID ??? docusate sodium 100 mg Oral BID ??? heparin (porcine) 5,000 Units Subcutaneous Q8H MO ??? acetaminophen 975 mg Oral Q6H MO Objective: Last value Range last 24hrs Temperature Temp: 36.8 ??C (98.2 ??F) Temp: [36.6 ??C (97.9 ??F)-36.8 ??C (98.2 ??F)] Heart Rate Heart Rate: (!) 106 Heart Rate: [106] Blood Pressure BP: 162/75 BP: (162-182)/(75-110) Respiratory Rate Resp: 22 Resp: [22-26] SpO2 SpO2: 97 % SpO2: [87 %-97 %] Intake/Output Summary (Last 24 hours) at 06/23/2021 0818 Last data filed at 06/23/2021 0719 Gross per 24 hour Intake 940 ml Output 3175 ml Net -2235 ml Physical Exam: Gen: NAD, awake/alert CV: regular rate Pulm: nonlabored breathing on room air Abd: soft, appropriately tender, non-distended, incisions c/d/I : Leach draining CYU Ext: warm, well perfused Labs: Recent Labs 06/22/21 0434 06/21/21 0724 WBC 12.8* 15.3* HGB 7.7* 8.3* HCT 24.3* 26.9* PLATELET 238 214 Recent Labs 06/23/21 0458 06/22/21 0434 06/21/21 0940 NA 138 138 134* K 5.2* 5.0 4.7 CL 104 105 102 CO2 25 24 23 BUN 38* 34* 36* CREATININE 1.55* 1.59* 1.59* GLUCOSE 108 88 140 CALCIUM 9.2 9.2 9.3 Micro: Recent Labs 06/02/21 1114 URINECULTURE 10,000-49,000 cfu/ml Normal mucosal mekhi Susceptibility testing not routinely performed for Coagulase Negative Staphylococcus species and other Gram Positive organisms from urine. No results for input(s): BLOODCX in the last 720 hours. Imaging: Results for orders placed or performed during the hospital encounter of 06/16/21 XR Chest PA & Lateral (Generic) (Exam End: 06/21/2021 10:22 AM) Impression Bilateral pleural effusions without evidence of overt pulmonary edema. I have personally reviewed the image(s) and the resident's interpretation and agree with the findings, Michelle Edmond MD at 06/21/2021 11:57 AM Thank you for letting us participate in the care of this patient. If you are a health care provider and have any questions regarding this report, please contact the number below. For patients who have questions please contact the health child care sitter that requested your imaging first. A/P: Nancy Pichardo is a 66 y.o. female now 7 Days Post-Op s/p right nephroureterectomy for right upper tract UCC. Patient is recovering as expected. Has a bed in [facility] for today pending insuranceprior authorization. Can mostly likely d/c today pending flurocystogram at 10AM this morning to determine if the leach can be removed. In addition, we will consult medicine to help manage persistent hypertension given the patient's hyperkalemia and solitary kidney. Neuro: Currently on 6mg dilaudid q4, will decrease dose today. C/w scheduled tylenol. CV: On home metoprolol and lasix for HTN. Has been persistently 155-175 SBP. Holding losartan/spironolactone for now due to hyperkalemia. Will consult medicine for further HTN medication management. Pulm: encourage IS/OOB FENGI: Carb Control diet 60/60/75 CHO counting level 2 45 GM FAT (LOW FAT). Has adequate UOP. StableCr at 1.59. Hyperkalemia to 5.2. Regular BM with bowel regimen. ID: Afebrile. No leukocytosis. Heme: HECTOR. Per vascular surgery, off eliquis for thrombophlebitis. PPX: SCDs, SQH Dispo: floor status, Attempt Cardiopulmonary Resuscitation - Inpatient Bonilla Mckeon MD 06/23/2021 [id number] Vern Donahue - 06/22/2021 2:46 PM EDT Yeast Stacker Encounter Note Patient Name: Nancy Pichardo : [id number] MR#: [id number] Admit Date: 06/16/2021 10:09 AM Hospital Day 6 days Narrative: Visited to introduce and assess acceptance of Yeast Stacker services. Pt was not available for visit and I will visit an other time. Assessment: Intervention and Outcome: Follow-up: Time in Direct Care: Vern Donahue 06/22/2021 Leigh Ann Dolan RN - 06/22/2021 11:31 AM EDT RN/CM following up with SNF: [address] [address] 11:40 AM: Spoke with Marti Conti - police academy program coordinator. Tina working with BC/BS for PA - rehab admission RN/CM spoke with Tina - pending PA review and awaiting PA to come back from her insurance company. Pharmacy information for [facility]: [email or web address] Direct Transportation: Spouse Pending call back by facility and will update the facility. Jesus Dolan RN (Jonas) RN/CM - Cellphone: [phone] Pager: [phone] Covering Service RN/CM UPDATE: 2:50 PM Call back to: [address] [phone] [facility] with: Tina working with BC/BS for PA She's in a meeting. Pending call back. Update: 5 PM Call back by Tina with [facility]. They are still awaiting PA for admission. Will follow up first thing in the a.m. RN/CM has updated patient. Bonilla Mckeon MD - 06/22/2021 7:04 AM EDT Urology Progress Note Patient Name: Nancy Pichardo : 1955 Admit date: 06/16/2021 Attending Physician: Izabella Davis MD ID: Nancy Pichardo is a 66 y.o. female with a history of right upper tract UCC 6 Days Post-Op s/p right laparoscopic nephroureterectomy. Subjective/24hr Events: - JOE - pain under good control - patient reports constipation o/n and wishes to have a fleet enema this AM - tolerating CC diet - denies fevers/chills, chest pain, SOB, n/v - restarted on home lasix Current Medications: ??? furosemide 20 mg Oral BID ??? sodium phosphates 1 Bottle Rectal Once ??? insulin lispro 0-15 Units Subcutaneous TID WC ??? insulin glargine 45 Units Subcutaneous Q24H ??? bisacodyL 10 mg Rectal Daily ??? lidocaine 3 patch Transdermal Q24H And ??? lidocaine 1 patch Transdermal Q24H ??? metoprolol tartrate 12.5 mg Oral 2 times per day ??? pantoprazole EC 40 mg Oral Daily ? ? sucralfate 1 g Oral 4 Times Daily AC & HS ??? insulin lispro 1-6 Units Subcutaneous Q4H MO ??? senna 8.6 mg Oral BID ??? sodium chloride 0.9 % (flush) 5 mL Intravenous BID ??? docusate sodium 100 mg Oral BID ??? heparin (porcine) 5,000 Units Subcutaneous Q8H MO ??? acetaminophen 975 mg Oral Q6H MO Objective: Last value Range last 24hrs Temperature Temp: 36.5 ??C (97.7 ??F) Temp: [36.4 ??C (97.5 ??F)-36.8 ??C (98.2 ??F)] Heart Rate Heart Rate: (!) 107 Heart Rate: [107] Blood Pressure BP: 172/85 BP: (148-191)/(71-98) Respiratory Rate Resp: 16 Resp: [16-18] SpO2 SpO2: 90 % SpO2: [89 %-97 %] Intake/Output Summary (Last 24 hours) at 06/22/2021 0705 Last data filed at 06/22/2021 0519 Gross per 24 hour Intake 800 ml Output 2725 ml Net -1925 ml Physical Exam: Gen: NAD, awake/alert CV: regular rate Pulm: nonlabored breathing on 2L Abd: soft, appropriately tender, non-distended, incisions c/d/I : Leach draining CYU Ext: warm, well perfused, improved pedal edema Labs: Recent Labs 06/22/21 0434 06/21/21 0724 06/20/21 0803 WBC 12.8* 15.3* 18.1* HGB 7.7* 8.3* 7.6* HCT 24.3* 26.9* 24.6* PLATELET 238 214 195 Recent Labs 06/22/21 0434 06/21/21 0940 06/20/21 0803 NA 138 134* 132* K 5.0 4.7 4.8 CL 105 102 101 CO2 24 23 21* BUN 34* 36* 33* CREATININE 1.59* 1.59* 1.59* GLUCOSE 88 140 186 CALCIUM 9.2 9.3 9.0 Micro: Recent Labs 06/02/21 1114 URINECULTURE 10,000-49,000 cfu/ml Normal mucosal mekhi Susceptibility testing not routinely performed for Coagulase Negative Staphylococcus species and other Gram Positive organisms from urine. No results for input(s): BLOODCX in the last 720 hours. Imaging: Results for orders placed or performed during the hospital encounter of 06/16/21 XR Chest PA & Lateral (Generic) (Exam End: 06/21/2021 10:22 AM) Impression Bilateral pleural effusions without evidence of overt pulmonary edema. I have personally reviewed the image(s) and the resident's interpretation and agree with the findings, Michelle Edmond MD at 06/21/2021 11:57 AM Thank you for letting us participate in the care of this patient. If you are a health care provider and have any questions regarding this report, please contact the number below. For patients who have questions please contact the health child care sitter that requested your imaging first. A/P: Nancy Pichardo is a 66 y.o. female now 6 Days Post-Op s/p right nephroureterectomy for right upper tract UCC. Patient is recovering as expected. Patient has a rehab bed in [facility] for 06/23. Continue adequate pain control, ambulation as tolerated, continue PT/OT, and CC diet. Fleet enema ordered. Plan for leach 7-10d, cystogram prior to removal. Follow-up scheduled with Dr. Davis 07/05. Neuro: PO tylenol scheduled. Lidoderm patch x3. PO dilaudid. CV: HECTOR. Lasix 20mg BID. Metoprolol tartrate 12.5mg BID. Holding losartan 100mg. Holding Eliquis. Pulm: encourage IS/OOB. Stable on RA, 2LNC at night. FENGI: Carb Control diet 60/60/75 CHO counting level 2 45 GM FAT (LOW FAT). Fleet enema ordered thisAM. : continue monitoring UOP. Leach in place draining CYU. ID: HECTOR. Afebrile. Heme: continue SQH. PPX: SCDs, SQH, protonix, ambulation Dispo: floor status, Attempt Cardiopulmonary Resuscitation - Inpatient Bonilla Mckeon MD 06/22/2021 [id number] Addendum for coding query Hyponatremia 06/20, 06/21 - clinically insignificant Rina Simental - 06/21/2021 3:38 PM EDT REGIONAL NERVE BLOCK FOLLOW-UP Patient is s/p right laparoscopic total nephrectomy for which she had a right TAP block. She denies any residual numbness and tingling over her abdomen. She does report back discomfort; which she understands is not due to the nerve block. She is otherwise doing well and looking forward to discharge incoming days. Patient very satisfied with nerve block. If there are any questions or concerns regarding the nerve block, please do not hesitate to contact the regional anesthesia team. Ebony Morley RN - 06/21/2021 3:07 PM EDT Diabetes Clinical Nurse Specialist Met with Mrs. Pichardo and her to discuss her diabetes. Pt states that she maintains good control of her diabetes at home with Humalog and Tresiba. HbA1c of 5.9% on 06/17. Pt hospitalized now for right upper tract UCC s/p right laparoscopic nephroureterectomy. BG's 95 - 236 over the past 48 hours. Pt voices her concerns about the insulin regimen being different here fromthe way she does it at home. Will follow. Leigh Ann Dolan RN - 06/21/2021 1:48 PM EDT RN/CM notes that [facility] (pt's first preference) has accepted patient in [facility]. Call to and spoke with Marti Conti - police academy program coordinator. Working on PA and see if they can get her admitted to rehab on 06/22/2021. Pending PA and COVID test (in process) Transport: Spouse ~~~~~~~~~~~~~~~~~~~~~~~~~~~~~~~~~~~~~~~~~~~~~~~~~~~~~~~~~~~~~~~~~~~~~~~~~~~~~~~~ ~~~~~~~~~~~~~~~~~ Will follow up on 06/22/2021 to finalize PA and rehab plans as well as obtaining E-fax information for this facilities pharmacy. Jesus Dolan RN (Jonas) RN/CM - Cellphone: [phone] Pager: [phone] Covering Service RN/CM Meera Mohr APRN - 06/21/2021 12:20 PM EDT Images from the original note were not included. Follow Up Diabetes Consult Patient Interview Nancy is still voicing frustration re not being able to have turlicity here. She is also voicing frustration about timing of meals We discussed lantus dose she agrees to 50 units will recommend trulicity in rehab Objective Temp: [36.4 ??C (97.5 ??F)-36.9 ??C (98.4 ??F)] Heart Rate: [107] Resp: [16-18] BP: (140-170)/(62-87) SpO2: [85 %-98 %] Heart Rate from SpO2: [74 bpm-107 bpm] Current Regimen from previous note 1. Lantus??45 units qd 2. Lispro??moderate??correction scale for BG>140 3. Meal-associated Lispro??0-8??units tid ac (or 1unit:??6??gm carb ratio for each meal) Recent Glucose Levels Recent Labs 06/21/21 1148 06/21/21 0932 06/21/21 0625 06/21/21 0405 06/21/21 0012 06/20/21 2006 06/20/21 1639 06/20/21 1314 06/20/21 0730 06/20/21 0309 06/20/21 0053 06/19/212027 POCGLU 95 160 165 117 145 170 195 142 236* 124 147 228* ASSESSMENT Patient is a??66 y.o.??years old female??with PMH significant for DM T2??who was admitted on 06/16/2021??for ??right laparoscopic nephroureterectomy??. ??Diabetes suboptimally controlled and currently complicated by stress of surgery. ??Currently with variability of blood glucose levels while hospitalized requiring adjustment of insulin regimen and DM medications. ?? Lantus increased will recommend tresiba for rehab PLAN 1. Lantus??50 units qd 2. Lispro??moderate??correction scale for BG>140 3. Meal-associated Lispro??0-8??units tid ac (or 1unit:??6??gm carb ratio for each meal) 4. Diet carb control level 2 Meera L. [place], SOCIAL WORK PROFESSOR [facility] Endocrinology Diabetes Management Pager [phone] 20 minutes of this 35 minute visit was spent with the patient in counseling on diabetes and treatment plan, reviewing all glucose and insulin data as well as relevant laboratory results with the patient, and coordination of care on the inpatient unit including nursing and primary team. Ml Keenan, PT - 06/21/2021 12:16 PM Philip ABDULLAHI REC: SNF vs swing rehab, ambulance transport Physical Therapy Note Treatment Number PT: 3 Patient profile: ??Nancy Pichardo??is a 66 y.o.?female??with PMH significant for T2 DM, HLD, HTN, CHF, PTSD, thrombophlebitis and renal carcinoma?who was admitted on 06/16/2021??currently being treated for ??right laparoscopic nephroureterectomy ?? Social History: Patient lives with her spouse in a single level accessible home. There are stairs but pt reports she does not have to do them unless she wants to. No stairs to enter home, per pt. She is normally independent with use of rollator walker in side the home, except when she is actively undergoing treatment, then needing more assist and remaining largely in bed. Pt sleeps in hospital bed, and has bedside commode. Spouse works radio time buyer, so pt is alone much of the day. He assists with dressing and morning meal. ?? Precautions/Special Considerations: Fall risk, full code, leach catheter, supplemental O2, carb control diet, AAT, OOB tro chair, ambulate with assistance, walk in hyl[place] 3 times daily. Mobility and Positioning Recommendations: ?? Pt. to utilize 4WW, 1 assist for transfers with nursing. Chair follow for ambulation ?? Please encourage up to chair for meal times as able. ?? Pt encouraged to ambulate frequently with staff, getting into the bathroom for toileting and walking out in the [place] >/= 3 times daily as able. Subjective: I want to do as much as I can on my own Objective: Patient seen for physical therapy and demonstrated the following: Pain: Number Location At rest 10/10 back With activity 10/10 Back and everywhere Vital Signs: SpO2 (RA) 95% HR 80s-90s bpm BP N/A Cognition: oriented, alert, motivated, eccentric Skin: N/A Self Care: See OT note for details as able Functional Mobility: Bed Mobility: Supine to Sit: n/A pt OOB to chair pre PT Sit to Supine: N/A pt left OOB to chair post PT Transfers: Sit to Stand: CGA from chair with 4WW, cues to lock brakes on walker. Stand to Sit: min A to lock brakes on walker. Use of UEs for eccentric control. Took several seated rest breaks on rolaltor walker during activity Bed to Chair: N/A Other: N/A Patient educated in, and cued throughout, functional mobility to ensure safe and complete activities. Gait Training: Gait: Distance: total of 25 feet with several seated rest breaks Device Used: 4WW Level of Assist: CGAx1 Gait Comments: small short steps, decr tonya. At least x3 seated rest breaks on rollator. Needing cues and assist to manage brakes prior to sitting/standing Stairs: N/A Patient educated in, and cued throughout, to improve gait pattern, body mechanics, safety, and independence during activity. Balance: Sitting Static: good Sitting Dynamic: good Standing Static: fair Standing Dynamic / Gait: fair with AD and CGA needed Exercises: N/A ?? Education: patient educated on role of therapy, bed mobility, safety, use of AD, PLB, use and features of 4WW,transfers, ambulation, and DC planning, with fair understanding/demonstration. Patient status, treatment, and mobility recommendations discussed with nursing. Pt left in bedside recliner chair, with all needs met, with call sampson in reach and with chair alarm active and spouse at bedside following visit. Team Communication: communication with nursing staff pre/post session regarding readiness and response to therapy intervention. Assessment: Nancy Pichardo was seen today for physical therapy treatment session for continuation of POC. Pt more alert and participatory today. Continues to endorse significant pain, though motivated to regain independence and PLOF. Pt able to ambualte further, yet continues to need several seated rest breaks. Pt progressing as expected, albeit gradually. Continue to recommend SNF/swing setting as appropriate for ongoing rehabilitation when medically ready. Pt will benefit from ongoing therapeutic interventions to achieve therapy goals. Discharge Recommendations: Based on the current findings, Anticipated Discharge Disposition (PT): swing bed rehabilitation facility, longterm facility when medically ready for hospital discharge. Consult Recommendations: No other consults recommended at this time. Equipment Needs: Anticipated Equipment Needs at Discharge (PT): to be determined Transportation Needs: Ambulance Cleared Physical Therapy? NO Physical Therapy Goals: Goals ongoing as of 06/21/21 unless otherwise noted Goals: To be achieved by 06/26/21: ?? 1. Pt. to demonstrate knowledge of safety limitations and precautions 2. Pt. to demonstrate understanding of appropriate exercises. 3. Pt. to perform bed mobility with modified independence using bed features 4. Pt. to perform sit to/from stand and stand step transfers with 4WW and modified independence 5. Pt. to ambulate 150 feet with modified independence and least restrictive assistive device (uses 4WW typically) Plan: Therapy Frequency (PT): 2-4 times/wk for therapy interventions as outlined in initial evaluation. Patient agrees with plan as stated. Time IN / OUT: 5432-1746 Total Minutes, Physical Therapy: 16 (TEFx1) Thank you for this consult. Ml Keenan, PT Pager: [phone] Physical Therapy Inpatient Rehabilitation Department Peyman Denson, OT - 06/21/2021 11:55 AM EDT Occupational Therapy Treatment Note Treatment Number OT: 3 Patient Dx: Nancy Pichardo??is a 66 y.o.??female??who presented with hx of right upper tract UCC??s/pright laparoscopic nephroureterectomy??POD #1.?? Social History: Patient lives with her spouse in a single level HC accessible home. There are stairs but pt reports she does not have to do them unless she wants to. No stairs to enter home, per pt. She is normally independent with use of rollator walker in side the home, except when she is actively undergoing treatment, then needing more assist and remaining largely in bed. Pt sleeps in hospital bed, and has bedside commode. Spouse works radio time buyer, so pt is alone much of the day. He assists with dressing and morning meal.?? Precautions/Special Considerations: fall, leach, Hgb 8.3 Interval History: Hgb down again with no evidence of bleeding S: I should sit again. O: Patient seen for skilled OT treatment, and demonstrated the following: ?? Sit>stand: CGA from chair w/ arms, Yaritza from chair and 4WW ?? Pt performed functional mobility in to bathroom w/ CGA. ?? Pt brushed teeth, washed face, brushed hair seated on 4WW for energy conservation; pt required Yaritza to complete oral care due to assist needed to hold basin when spitting following brushing. ?? Pt performed ~ 40' functional mobility w/ use of a 4WW and CGA; pt took 3 rest breaks in total due to fatigue and pain Cognition: ?? Behavior / Mood: alert and cooperative ?? Alert and oriented to: person, place, time and situation ?? Follows commands: 100% of the time ?? Attention: WFL ?? Safety awareness: WFL, fully aware of deficits and good safety precautions Endurance: fair Vitals: O2: 41528%, HR: 90's-109, 120/65 Pain: 09/05 Education: Pt/family/caregiver education ongoing regarding: Role of occupational therapy/rehabilitation, ADL, Positioning, Safety, Precautions/Protocol, Functional Mobility, Activity pacing/Energy conservation, Home Management, Recommendations and Discharge planning. Staff Communication: Patient status, treatment, and mobility recommendations discussed with nursing/other staff. ASSESSMENT: Pt seen by OT for progression of independence performing functional mobility and self-care. Pt required CGA-Yaritza for sit>stand transitions w/ use of a 4WW. Pt performed grooming tasks atsink level in seated position w/ SBA-Yaritza and performed short distance mobility w/ CGA and use of a 4WW; however, required frequent rest breaks and was greatly limited in her distance due to endurance.Pt is eager to return home at a level of modified functional independence; however, would greatly benefit from ongoing therapeutic interventions at an inpatient rehab setting to achieve pt's and therapy goals Anticipated Discharge Disposition (OT): inpatient rehabilitation facility, longterm facility,swing bed rehabilitation facility Equipment Recommendations: TBD Daily schedule / Staff Recommendations: ?? ambulate as tolerated w/ 1 person assist w/ use of 4WW ?? Set up for ADLs seated recliner Occupational Therapy Goals: To be achieved by??06/23/21 Patient will independently complete??toilet transfer & hygiene independently with Rollator?? Patient will complete standing grooming tasks at sink??independently with Rollator?? Patient will ambulate functional household distances to bathroom & kitchenette with??supervision& Rollator?? Patient will don/doff UB & LB clothing sitting EOB or upright in chair with??set up A and LH AE as needed?? Patient will attend to functional task for 10 mins with minimal verbal cues Therapy Frequency (OT): 2-3 times/wk Total Minutes, Occupational Therapy: 21 (ok ) Pager: [phone] Peyman Denson OT Occupational Therapy Rehabilitation Department Daysi Montilla PA - 06/21/2021 11:41 AM EDT Urology Inpatient Progress Note ID: Nancy Pichardo is a 66 y.o. female with hx of right upper tract UCC s/p right laparoscopic nephroureterectomy POD #5 Events over the last 24 hrs: Pt reports that abdominal/incisional pain is not an issue, pain is in her back Very distressed about timing of insulin, blood sugars, and timing of meal delivery Tolerating PO Reports LLE worse since not taking lasix as an inpatient Pt reports that she has never refused insulin during hospital stay (MAR documents refusal on at least one occasion) Objective: Temp: [36.4 ??C (97.5 ??F)-37.1 ??C (98.8 ??F)] Heart Rate: [107] Resp: [16-20] BP: (140-170)/(62-87) SpO2: [85 %-98 %] Heart Rate from SpO2: [74 bpm-107 bpm] I/O last 3 completed shifts: In: 1265 [P.O.:1260; I.V.:5] Out: 4275 [Urine:4275] Physical Exam Gen- NAD, resting comfortably CV-- RRR Resp- nonlabored breathing on RA, turned of O2 via NC while rounding, sats remained >90% Abd- soft, appropriately tender, nondistended Incisions - c/d/i - Leach draining CYU Ext- warm and well perfused, no edema Labs Recent Labs 06/21/21 0940 06/21/21 0724 06/20/21 0803 06/18/21 2217 06/18/21 1824 WBC -- 15.3* 18.1* 23.0* -- HGB -- 8.3* 7.6* 8.6* -- HCT -- 26.9* 24.6* 28.2* -- PLATELET -- 214 195 190 -- NA 134* -- 132* -- 133* K 4.7 -- 4.8 -- 5.2* CL 102 -- 101 -- 103 CO2 23 -- 21* -- 20* BUN 36* -- 33* -- 34* CREATININE 1.59* -- 1.59* -- 1.54* GLUCOSE 140 -- 186 -- 208* Assessment/Management/Plan: Nacny Pichardo is a 66 y.o. female who presented with hx of right upper tract UCC s/p right laparoscopic nephroureterectomy POD #5. Recovering as expected. Goals today are improved pain management, tolerating diet, ambulation. Pt will have Leach in place for 7-10 days, with cystogram prior to removal. Patient still with incisional and back pain, now improving. Patient will likely be ready for D/C to rehab tomorrow. PT/OT has been seeing regularly. Resuming home Lasix today. Neuro: PO Tylenol scheduled. Lidoderm patch x 3. PO and IV Dilaudid. CV: currently stable. Metoprolol 12.5 mg BID. Holding losartan 100 mg and Lasix 20 mg BID. Holding Eliquis. Resp: stable on room air, encourage IS GI: Colace, Miralax. Home Protonix and sucralfate. Zofran and Compazine prn : continue monitoring UOP, Leach in place. FEN: replace lytes prn, D/C fluids, carb control diet Endo: DM. SSI and meal associated insulin. Lantus. DM team consult. Holding home Tresiba. Will keep lantus above home dose as sugars have been on the high side. Heme: continue ppx SQH ID: afebrile Prophylaxis: SQH, Protonix, SCDs, encourage ambulation Dispo: stable on floor status, will discuss discharge planning with progressive care nurse. PT/OT ordered. Code status: Full code Siri Morales RN - 06/20/2021 1:45 PM EDT Patient manipulative towards staff, staff splitting. Patient not requesting pain meds this AM, not reporting pain to nursing staff. Frequently seeking out staff to report that my meds are not right and that the insulin (diabetes) nurse doesn't understand diabetes meds and would like to provide education to the diabetes nurse. 1345 Patient reporting they expect me to order my food in my condition, when staff asked patient if meals had been ordered or if patient required assistance, patient declined. Patient calling diet office to rip into them for not having my meals here as soon as they can. Patient continues to demonstrate manipulative and staff splitting behaviors towards staff. Alejandro Enriquez MD - 06/20/2021 11:58 AM EDT Urology Inpatient Progress Note ID: Nancy Pichardo is a 66 y.o. female with hx of right upper tract UCC s/p right laparoscopic nephroureterectomy POD #2 Events over the last 24 hrs: Pt reports that pain is not well controlled, does not care for pain meds but is taking them to facilitate mobilization Tolerating PO Would like to walk more Hgb down again with no evidence of bleeding Objective: Temp: [36.6 ??C (97.9 ??F)-37.1 ??C (98.8 ??F)] Heart Rate: [99-107] Resp: [14-20] BP: (122-164)/(61-82) SpO2: [86 %-95 %] Heart Rate from SpO2: [89 bpm-110 bpm] I/O last 3 completed shifts: In: 1260 [P.O.:1260] Out: 2550 [Urine:2550] Physical Exam Gen- NAD, resting comfortably CV-- RRR Resp- nonlabored breathing on RA Abd- soft, appropriately tender, nondistended Incisions - c/d/i - Leach draining CYU Ext- warm and well perfused, no edema Labs Recent Labs 06/20/21 0803 06/18/21 2217 06/18/21 1824 06/18/21 0500 WBC 18.1* 23.0* -- 16.3* HGB 7.6* 8.6* -- 7.5* HCT 24.6* 28.2* -- 23.9* PLATELET 195 190 -- 146 NA 132* -- 133* 137 K 4.8 -- 5.2* 4.8 CL 101 -- 103 107 CO2 21* -- 20* 22 BUN 33* -- 34* 32* CREATININE 1.59* -- 1.54* 1.63* GLUCOSE 186 -- 208* 114 Assessment/Management/Plan: Nancy Pichardo is a 66 y.o. female who presented with hx of right upper tract UCC s/p right laparoscopic nephroureterectomy POD #2. Recovering as expected. Goals today are improved pain management, tolerating diet, ambulation. Pt will have Leach in place for 7-10 days, with cystogram prior to removal. Patient still with incisional and back pain, now improving. Patient will likely be ready for D/C tomorrow pending improvement in Hgb, white count. Neuro: PO Tylenol scheduled. Lidoderm patch x 3. PO and IV Dilaudid. CV: currently stable. Metoprolol 12.5 mg BID. Holding losartan 100 mg and Lasix 30 mg BID. Holding Eliquis. Resp: stable on room air, encourage IS GI: Colace, Miralax. Home Protonix and sucralfate. Zofran and Compazine prn : continue monitoring UOP, Leach in place. FEN: replace lytes prn, D/C fluids, carb control diet Endo: DM. SSI and meal associated insulin. Lantus. DM team consult. Holding home Tresiba. Will keep lantus above home dose as sugars have been on the high side. Heme: continue ppx SQH ID: afebrile Prophylaxis: SQH, Protonix, SCDs, encourage ambulation Dispo: stable on floor status, will discuss discharge planning with progressive care nurse. PT/OT ordered. Code status: Full code Associated attestation - Susie Giron MD - 06/20/2021 3:07 PM EDT Attending Attestation Please see Dr. Enriquez's note for details of the patient history of presentation and data. I have discussed, reviewed and agree with the documented History, Physical findings, Assessment and Plan of care. I have examined the patient myself and personally reviewed all studies. In addition, I certify that I am a [facility] credentialed attending provider with admitting privileges and that the patient meets or has met medical necessity to require an inpatient IPI level of care meeting a minimum of two midnights or is on the [facility] inpatient only procedure list (status C) due to: post-operative care that cannot be delivered as an outpatient; examples: pain only controlled with IV pain medication; frequent or complex wound care/dressing changes; NPO requiring IV fluid support. Per last PT/OT assessments, may require d/c to SNF pending re-evaluation tomorrow. SUSIE GIRON MD 06/20/2021 Ramakrishna Nicole RN - 06/20/2021 12:57 AM EDT Pt stated her pain was 6-10/10, while awake, administered PRN dilaudid x1 w/ good effect, refused scheduled tylenol. Pt intermittently tachy to the low 100s and pt remains on 2L NC, otherwise VSS. She had a carb control diet, tolerated well, denied nausea. Adequate UOP via leach. No BM this shift. Pt resting comfortably between care. Handoff report given to MORTEZA Adams @ 2142. Papa Bullock RN - 06/19/2021 6:43 PM EDT OUTCOME EVALUATION NOTE: OUTCOME SUMMARY: A&Ox4, pt lethargic at times d/t dilaudid use, pt reports pain better controlled with PRN 6 mg dilaudid however she has increased nausea and lessened appetite d/t use. Food tray time delivery continues to be an issue with pt, pt tolerating diet, insulin per MAR, pt continues to refuse current ordered dose of lantus. +BS, +flatus, LBM 06/19/21. 5 lap sites to right abd, dermabonded YAS, no signs ofinfections. Lidocaine patches to back, somewhat effective. Leach in place draining adequate amounts of CYU. A1 with WW, pt followed with W/C when in hallway. Pt washed up independently in BR. HR MD shant aware, EKG acquired. Pt lungs are clear, but diminished, pt requiring 2L O2 especially while sleeping, pt desats into 70s on RA, IS encouraged and utilized independently. Pt demonstrates proper use of call light, bed/chair alarm applied, will continue to monitor. PLAN MOVING FORWARD: ?? Insulin control Pain control Mobilize Bowel regime ? INDIVIDUALIZED FALL PREVENTION INTERVENTIONS: ?? Patient-specific fall risk factors per assessment: [current deficits]: Pain control, weakness, walker use, pain medication ?? Assistance [level of assistance required for transfers and ambulation]: A1 with WW ?? Supervision [direct monitoring required during toileting and ADLs]: Hands on ?? Surveillance [continuous indirect monitoring]: Masimo ?? Patient-specific fall prevention interventions for sensory deficits provided, if applicable: ?? CPG GOAL OUTCOME EVALUATION: Alejandro Enriquez MD - 06/19/2021 5:08 PM EDT Urology Inpatient Progress Note ID: Nancy Pichardo is a 66 y.o. female with hx of right upper tract UCC s/p right laparoscopic nephroureterectomy POD #2 Events over the last 24 hrs: Pt reports that pain is not well controlled, does not care for pain meds but is taking them to facilitate mobilization Tolerating PO Would like to walk more Still having occasional involuntary jerky movements Hgb stable on recheck Objective: Temp: [36.6 ??C (97.9 ??F)-36.9 ??C (98.5 ??F)] Heart Rate: -- Resp: [16-18] BP: (122-150)/(75-86) SpO2: [90 %-95 %] Heart Rate from SpO2: [88 bpm-115 bpm] I/O last 3 completed shifts: In: 1920 [P.O.:1120; I.V.:800] Out: 1774 [Urine:1774] Physical Exam Gen- NAD, resting comfortably CV-- RRR Resp- nonlabored breathing on RA Abd- soft, appropriately tender, nondistended Incisions - c/d/i - Leach draining CYU Ext- warm and well perfused, no edema Labs Recent Labs 06/18/21 2217 06/18/21 1824 06/18/21 0500 06/17/21 1406 06/17/21 0115 WBC 23.0* -- 16.3* 22.5* 22.7* HGB 8.6* -- 7.5* 9.2* 8.9* HCT 28.2* -- 23.9* 28.6* 28.4* PLATELET 190 -- 146 206 207 NA -- 133* 137 -- 140 K -- 5.2* 4.8 -- 5.1* CL -- 103 107 -- 106 CO2 -- 20* 22 -- 22 BUN -- 34* 32* -- 32* CREATININE -- 1.54* 1.63* -- 1.50* GLUCOSE -- 208* 114 -- 254* Assessment/Management/Plan: Nancy Pichardo is a 66 y.o. female who presented with hx of right upper tract UCC s/p right laparoscopic nephroureterectomy POD #2. Recovering as expected. Goals today are improved pain management, tolerating diet, ambulation. Pt will have Leach in place for 7-10 days, with cystogram prior to removal. Obtaining EKG to reevaluate persistent tachycardia. Hgb stable no concerns for bleeding at this point. Neuro: PO Tylenol scheduled. Lidoderm patch x 3. PO and IV Dilaudid. CV: currently stable. Metoprolol 12.5 mg BID. Holding losartan 100 mg and Lasix 30 mg BID. Holding Eliquis. Resp: stable on room air, encourage IS GI: Colace, Miralax. Home Protonix and sucralfate. Zofran and Compazine prn : continue monitoring UOP, Leach in place. FEN: replace lytes prn, NS @ 100 ml/hr, carb control diet Endo: DM. SSI and meal associated insulin. Lantus. DM team consult. Holding home Tresiba. Heme: continue ppx SQH ID: afebrile Prophylaxis: SQH, Protonix, SCDs, encourage ambulation Dispo: stable on floor status, will discuss discharge planning with progressive care nurse. PT/OT ordered. Code status: Full code Gómez Nj RN - 06/19/2021 6:44 AM EDT Assumed care of patient at 0600. Presents A/Ox4. Resting between care. PRNs and scheduled medications administered upon patient request. Incisions ENGINE MANAGER. Will CTM and notify of any changes. Gómez Nj RN Carlie Santana RN - 06/19/2021 4:12 AM EDT OUTCOME EVALUATION NOTE: OUTCOME SUMMARY: Pt denies CP, SOB, nausea, or dizziness. She reports baseline n/t to all extremities. Pt's pain is adequately managed with PRN pain meds (see MAR). Pt was able to have a bm this shift after administration of fleet enema and suppository. No acute events overnight. See doc flowsheet for full pt assessmen t. Call sampson within reach. VSS. No further needs at this time. PLAN MOVING FORWARD: Pain management, leach, improve mobility, d/c planning INDIVIDUALIZED FALL PREVENTION INTERVENTIONS: Patient-specific fall risk factors per assessment: [current deficits]: Hospital environment, lines/devices, narcotics, generalized weakness Assistance [level of assistance required for transfers and ambulation]: 1A w/ FWW Supervision [direct monitoring required during toileting and ADLs]: Hands-on Surveillance [continuous indirect monitoring]: Masimo, hourly rounding Patient-specific fall prevention interventions for sensory deficits provided, if applicable: [X] N/A Papa Bullock RN - 06/18/2021 6:08 PM EDT OUTCOME EVALUATION NOTE: OUTCOME SUMMARY: A&Ox4, pt is somewhat cooperative, but very particular. Pt is emotional at times, expresses feeling of frequent misunderstanding with staff in relation to medications and meal times. Time was spentwith pt to address issues, chargemaster analyst spoke with pt, education supervisor Mahi spoke, and urology team visited pt multiple times. Pt has concerns with adjustments with insulins, endocrinology saw pt and discussed plan, pt continued to refuse lantus order at 45 units, stating she wanted to previously order 30 units lantus, endocrinology updated on situation. 5 lap sites to right abd, demabonded, YAS, no signs of infection. Pt C/O lower back pain is well controlled with 4mg dilaudid and lidocaine patches. Pt is tolerating diet, +BS, has not had BM since admission and is concerned, PRN miralax given and pt is drinking coffee. Leach draining adequate amount of CYU. Pt lost PIV access to left hand with small infiltrate, ice applied, new PIV obtained in left forearm after two different phleb tries, very difficult stick. OOB with A1 and WW, pt tolerating small distance walks, gait steady. Pt lungs are clear butdim, pt requiring 2L O2 NC especially while asleep, IS use encouraged, observed reaching 500. Call light within reach, bed/chair alarm active, will continue to monitor. PLAN MOVING FORWARD: Insulin control Pain control Mobilize Bowel regime INDIVIDUALIZED FALL PREVENTION INTERVENTIONS: Patient-specific fall risk factors per assessment: [current deficits]: Pain control, weakness, walker use, pain medication Assistance [level of assistance required for transfers and ambulation]: A1 with WW Supervision [direct monitoring required during toileting and ADLs]: Hands on Surveillance [continuous indirect monitoring]: Glenna Patient-specific fall prevention interventions for sensory deficits provided, if applicable: CPG GOAL OUTCOME EVALUATION: Nasreen Can RN - 06/18/2021 3:24 PM EDTSummary: Infiltrate left hand Infiltration/Extravasation Scale Nancy Pichardo [id number] Infiltration appearance: paged/arrived for request to place new piv. Noted previous piv already had been removed from left hand by primary RN. He reports it was leaking. Pt had ice pack on left hand also. Left hand swollen in comparision to right. Infiltration harm % for this extremity Ba13%, sed on measurement calculation (greatest measurement, 8 cm X divided by length of extremity, 64 cm, multiplied by 100= %) Considerations and Joshi: Consider the following: If the percentage of limb affected is <5% then select 1 If the percentage of limb affected is 6-25% then select 2 If the percentage of limb affected is 26-49% then select 3 If the percentage of limb affected is > 50% then always select 4 0 No symptoms 2 Skin blanched Edema 1 to 6 inches (2.5 to 15 cm) in any direction Cool to touch With or without pain Infiltration appearance score: 2 Medication Name infiltrated is n0rmal saline which is a (n) not an irritant or a vesicant Location of infiltration:left hand: posterior Measurement in cm of length and width of affected area---Affected extremity 8 x 7 cm Measurement of Circumference in cm of Infiltrated area of affected extremity left wrist 17.5 cm Measurement of Circumference in cm of Unaffected extremity 17 cm (at same location as affected extremity) Pulses present on affected extremity yes Medicated treatment given per policy/ order: no treatment indicated Plan for continued monitoring of infiltration/extravasation Name of MD contacted team paged 3:24 PM Name of RN contacted MORTEZA lenz 3:24 PM Name of Pharmacist if consulted n/a* 3:24 PM Plastics Provider contacted: no 3:24 PM Name of Plastics MD (if consulted) n/a -- PHOTO TO BE ADDED HERE (Mandatory photo for infiltrations/ extravasations scoring a stage 2 or greater, but recommended forstage 1. Include measuring tape and identifier in the photo) MANAGER CRITICAL CARE CARING FOR THIS PATIENT WILL CONTINUE TO MONITOR AND WILL ASSUME CARE, VASCULAR ACCESS WILL NOT FOLLOW THIS EVENT AT THE SIGNING OF THIS NOTE. Meera Mohr, DELBERT - 06/18/2021 11:35 AM EDT Images from the original note were not included. Follow Up Diabetes Consult Patient Interview Nancy is very upset she can not get her breakfast tray at 8 AM She want full meals not just snacks that we have been giving her. She did not have her first full meal until breakfast this AM. We discussed her glycemic control. Objective Temp: [36.4 ??C (97.5 ??F)-37.3 ??C (99.1 ??F)] Heart Rate: [116] Resp: [16-20] BP: (99-159)/(54-86) SpO2: [91 %-97 %] Heart Rate from SpO2: [87 bpm-106 bpm] Current Regimen from previous note 1. Lantus 30 units qd 2. Lispro moderate correction scale for BG>140 3. Meal-associated Lispro 0-8 units tid ac (or 1unit: 10 gm carb ratio for each meal) 4. Diet level 2 carb control Recent Glucose Levels Recent Labs 06/18/21 0822 06/18/21 0309 06/17/21 2348 06/17/21 2222 06/17/21 1951 06/17/21 1808 06/17/21 1554 06/17/21 1335 06/17/21 1240 06/17/21 1115 06/17/21 0919 06/17/21 0754 POCGLU 160 98 167 207* 284* 276* 229* 233* 213* 228* 115 109 ASSESSMENT Patient is a 66 y.o. years old female with PMH significant for DM T2 who was admitted on 06/16/2021 for ??right laparoscopic nephroureterectomy??. Diabetes suboptimally controlled and currently complicated by stress of surgery. Currently with variability of blood glucose levels while hospitalized requiring adjustment of insulin regimen and DM medications. She received 30 units lantus at 12:55 pm yesterday. She required 14 units correction after this was given. She has not been eating much until breakfast today per her report. The BG of 98 at 3 AM was due to corrective insulin. The amount of correction required after lanuts was administered indicated she needs more basal insulin. I discussed this with Nancy, she takes 58 units long acting insulin at home we agreed that would be too much so we made a conservative increase to 45 units. PLAN 1. Lantus 45 units qd 2. Lispro moderate correction scale for BG>140 3. Meal-associated Lispro 0-8 units tid ac (or 1unit: 6 gm carb ratio for each meal) Meera Mohr APRN [facility] Endocrinology Diabetes Management Pager [phone] 20 minutes of this 35 minute visit was spent with the patient in counseling on diabetes and treatment plan, reviewing all glucose and insulin data as well as relevant laboratory results with the patient, and coordination of care on the inpatient unit including nursing and primary team. Sheryl Devries OT - 06/18/2021 11:30 AM EDT Occupational Therapy Treatment Note Patient Dx: Nancy Pichardo??is a 66 y.o.??female??who presented with hx of right upper tract UCC??s/pright laparoscopic nephroureterectomy??POD #1. Precautions/Special Considerations: Fall, leach Interval History: pain continues to be an issue S: I want my life back O: Patient seen for skilled OT treatment, and demonstrated the following: ?? Self-care: grooming set up seated EOB. Still has leach. Unable to reach feet to adjust sock (baseline deficit). Assist with UE due to IV ?? Functional Mobility: supervision with extra time and effort semi recliner to EOB. Supervision functional sit to stand transfers from bed, recliner x2 ?? Cognition: ?? Behavior / Mood: alert and cooperative ?? Alert and oriented to: person, place, time and situation ?? Follows commands: 100% of the time ?? Attention: WFL ?? Safety awareness: WFL. Patient requested chair behind with functional mobility (has Rolator with seat but it is narrow width) ? Vision:WNL/WFL ?? Endurance:poor, though patient self pacing and did not want assist from therapists. Pt supervision with Rolator 20 feet, seated rest break in recliner, another 20 feet, then needed to end session due to pain. ?? Vitals: O2 on RA 90-92% functional activities ?? Strength/ROM: grossly functional Pain: reports new spasms in legs, arms and hands Education: Pt/family/caregiver education ongoing regarding: Transfers, ADL, Activity pacing/Energy conservation, Recommendations and Discharge planning. Staff Communication: Patient status, treatment, and mobility recommendations discussed with nursing/other staff. ASSESSMENT: Pt seen today for continuation of OT POC. Pt more alert today, willing to participate intherapy. Pt expresses frustration with her present situation, doesn't like taking meds because they make her sleepy, but needs to for the pain. Pt also frustrated with new spasms in legs, arms and hands. Pt limited by pain. Based on current status, pt is agreeable to rehab at hospital discharge. Pt will benefit from ongoing therapeutic interventions to achieve pt's and therapy goals Equipment needs at discharge: none Anticipated Discharge Disposition: inpatient rehab facility Daily schedule / Staff Recommendations: ambulate as tolerated Set up for ADLs seated recliner Occupational Therapy Goals: Goals: To be achieved by 06/23/21 Patient will complete toilet transfer & hygiene independently with Rollator Patient will complete standing grooming tasks at sink independently with Rollator Patient will ambulate functional household distances to bathroom & kitchenette with supervision & Rollator Patient will don/doff UB & LB clothing sitting EOB or upright in chair with set up A and LH AE as needed Patient will attend to functional task for 10 mins with minimal verbal cues Pager: [phone] Sheryl Devries OT 06/18/2021 Occupational Therapy Rehabilitation Department Ml Keenan, PT - 06/18/2021 11:29 AM Philip ABDULLAHI REC: swing or SNF rehab. PT follow up Monday Physical Therapy Note Treatment Number PT: 2 Patient profile: ??Nancy Pichardo??is a 66 y.o.?female??with PMH significant for T2 DM, HLD, HTN, CHF, PTSD, thrombophlebitis and renal carcinoma?who was admitted on 06/16/2021??currently being treated for ??right laparoscopic nephroureterectomy ?? Interval History: transferred from PACU to Social History: Patient lives with her spouse in a single level HC accessible home. There are stairs but pt reports she does not have to do them unless she wants to. No stairs to enter home, per pt. She is normally independent with use of rollator walker in side the home, except when she is actively undergoing treatment, then needing more assist and remaining largely in bed. Pt sleeps in hospital bed, and has bedside commode. Spouse works radio time buyer, so pt is alone much of the day. He assists with dressing and morning meal. ?? Precautions/Special Considerations: Fall risk, full code, leach catheter, supplemental O2, carb control diet, AAT, OOB tro chair, ambulate with assistance, walk in hylton 3 times daily. Mobility and Positioning Recommendations: ?? Pt. to utilize 4WW, 1 assist for transfers with nursing. Chair follow for ambulation ?? Please encourage up to chair for meal times as able. ?? Pt encouraged to ambulate frequently with staff, getting into the bathroom for toileting and walking out in the hylton >/= 3 times daily as able. Weekend Plan: PT to follow up Monday as able/appropriate. Patient to continue mobilizing with nursing staff, per above recommendations, over weekend. Subjective: I want my life back. Let me try to do this on my own Objective: Patient seen for physical therapy and demonstrated the following: Pain: Number Location At rest 10/10 back With activity 10/10 Back and everywhere Vital Signs: SpO2 (RA) 89-92% HR 80s-90s bpm BP 112/66 mmHg prior to activity Cognition: lethargic, appropriate, motivated, oriented Skin: N/A Self Care: See OT note for details as able Functional Mobility: Bed Mobility: Supine to Sit: heavy use of bed features - HOB elevated maximally, use of bed rail. Supervised. No physical assist Sit to Supine: N/A pt left OOB to chair post PT Transfers: Sit to Stand: CGA from EOB with 4WW, assist to lock brakes on walker. Min A x1 from recliner chair. Stood x3 fro mrecliner chair during gait. Stand to Sit: min A for eccentric control, cues for hand placement. Pt impulsively sitting at times,needing incr assist to stabilize surface Bed to Chair: stand step with 4WW CGA Other: N/A Patient educated in, and cued throughout, functional mobility to ensure safe and complete activities. Gait Training: Gait: Distance: 3 x 6 feet Device Used: 4WW Level of Assist: CGAx1 with additional for recliner chair follow and line management Gait Comments: small short steps, decr tonya. Only able to ambulate a few steps at a time and thenneeding seated rest. Wheeled back into room Stairs: N/A Patient educated in, and cued throughout, to improve gait pattern, body mechanics, safety, and independence during activity. Balance: Sitting Static: good Sitting Dynamic: good Standing Static: fair Standing Dynamic / Gait: fair with AD and CGA needed Exercises: N/A ?? Education: patient educated on role of therapy, bed mobility, safety, use of AD, PLB, use and features of 4WW,transfers, ambulation, and DC planning, with poor understanding/demonstration. Patient status, treatment, and mobility recommendations discussed with nursing. Pt left in bedside recliner chair, with all needs met, with call sampson in reach and with chair alarm active and spouse at bedside following visit. Team Communication: communication with nursing staff pre/post session regarding readiness and response to therapy intervention. Assessment: Nancy Pichardo was seen today for physical therapy treatment session for continuation of POC. Pt more alert and cooperative this date, though continues to be limited by fatigue. Pt more pleasant and agreeable, with motivation to regain independence/PLOF. Pt able to tolerate further activity, yet only able to ambulate a few feet at a time prior to fatigue and pain. Continues to recommend SNF/swing setting as appropriate for ongoing rehabilitation when medically ready. Pt will benefit from ongoing therapeutic interventions to achieve therapy goals. Discharge Recommendations: Based on the current findings, Anticipated Discharge Disposition (PT): swing bed rehabilitation facility, longterm facility when medically ready for hospital discharge. Consult Recommendations: No other consults recommended at this time. Equipment Needs: Anticipated Equipment Needs at Discharge (PT): to be determined Transportation Needs: Ambulance Cleared Physical Therapy? NO Physical Therapy Goals: Goals ongoing as of 06/18/21 unless otherwise noted Goals: To be achieved by 06/26/21: ?? 1. Pt. to demonstrate knowledge of safety limitations and precautions 2. Pt. to demonstrate understanding of appropriate exercises. 3. Pt. to perform bed mobility with modified independence using bed features 4. Pt. to perform sit to/from stand and stand step transfers with 4WW and modified independence 5. Pt. to ambulate 150 feet with modified independence and least restrictive assistive device (uses 4WW typically) Plan: Therapy Frequency (PT): 2-4 times/wk for therapy interventions as outlined in initial evaluation. Patient agrees with plan as stated. Time IN / OUT: 6415-2812 Total Minutes, Physical Therapy: 24 (x2 TEF) Thank you for this consult. Ml Keenan, PT Pager: [phone] Physical Therapy Inpatient Rehabilitation Department Daysi Montilla PA - 06/18/2021 9:38 AM EDT Urology Inpatient Progress Note ID: Nancy Pichardo is a 66 y.o. female with hx of right upper tract UCC s/p right laparoscopic nephroureterectomy POD #2 Events over the last 24 hrs: Pt reports that pain is not well controlled, does not care for pain meds but is taking them to facilitate mobilization Tolerating PO Walked in hylton briefly, feels somewhat unsteady Still having occasional involuntary jerky movements Hgb 7.5 from 9.2 Cr 1.53 from 1.5 Objective: Temp: [36.4 ??C (97.5 ??F)-37.3 ??C (99.1 ??F)] Heart Rate: [116] Resp: [16-20] BP: (99-159)/(54-86) SpO2: [91 %-97 %] Heart Rate from SpO2: [87 bpm-106 bpm] I/O last 3 completed shifts: In: 4838 [P.O.:700; I.V.:4138] Out: 2275 [Urine:1875; Blood:400] Physical Exam Gen- NAD, resting comfortably CV-- RRR Resp- nonlabored breathing on RA Abd- soft, appropriately tender, nondistended Incisions - c/d/i - Leach draining CYU Ext- warm and well perfused, no edema Labs Recent Labs 06/18/21 0500 06/17/21 1406 06/17/21 0115 WBC 16.3* 22.5* 22.7* HGB 7.5* 9.2* 8.9* HCT 23.9* 28.6* 28.4* PLATELET 146 206 207 NA 137 -- 140 K 4.8 -- 5.1* CL 107 -- 106 CO2 22 -- 22 BUN 32* -- 32* CREATININE 1.63* -- 1.50* GLUCOSE 114 -- 254* Assessment/Management/Plan: Nancy Pichardo is a 66 y.o. female who presented with hx of right upper tract UCC s/p right laparoscopic nephroureterectomy POD #2. Recovering as expected. Goals today are improved pain management, tolerating diet, ambulation. Pt will have Leach in place for 7-10 days, with cystogram prior to removal. Recheck hemogram and BMP this afternoon to monitor anemia of acute blood loss in setting of anemia of chronic disease (malignancy). Neuro: PO Tylenol scheduled. Lidoderm patch x 3. PO and IV Dilaudid. CV: currently stable. Metoprolol 12.5 mg BID. Holding losartan 100 mg and Lasix 30 mg BID. Holding Eliquis. Resp: stable on room air, encourage IS GI: Colace, Miralax. Home Protonix and sucralfate. Zofran and Compazine prn : continue monitoring UOP, Leach in place. FEN: replace lytes prn, NS @ 100 ml/hr, carb control diet Endo: DM. SSI and meal associated insulin. Lantus. DM team consult. Holding home Tresiba. Heme: continue ppx SQH ID: afebrile Prophylaxis: SQH, Protonix, SCDs, encourage ambulation Dispo: stable on floor status, will discuss discharge planning with progressive care nurse. PT/OT ordered. Code status: Full code Tamiko Birmingham RN - 06/18/2021 5:33 AM EDT PT. REMAINS ANXIOUS AND OCCASIONALLY ARGUMENTATIVE. PAIN MANAGEMENT CONTINUES TO BE A STRUGGLE. DILAUDID 2MG PO PRN X2 AND SCHEDULED TYLENOL X1. REFUSED OFFER OF ADDITIONAL DILAUDID. PAIN PRIMARILY IN BACK, FINDS THE BED UNCOMFORTABLE. PT. AMBULATED WITH WALKER AND TWO ASSIST TO THE HALLWAY (TO SECOND NURSES STATION) AND BACK TO BED, NO INCREASED PAIN OR S.O.B., SOME NAUSEA. ZOFRAN ADMINISTERED WITH GOOD EFFECT. PT. FELL ASLEEP FOLLOWING TYLENOL, ZOFRAN AND DILAUDID COMBINATION, VITALS STABLE AND AROUSABLE. TOLERATING PUDDING AND JUICE. BELLY SOFT, NO FLATUS. SLEEPING COMFORTABLY AT THIS TIME. Carlie Santana RN - 06/17/2021 11:00 PM EDT This ad writer cared for pt from 2192-1945. My assessment remains unchanged from the previous RN's assessment. Pt denies CP, SOB, nausea, or dizziness. No acute events. VSS. No further needs at this time. Jessenia Henderson RN - 06/17/2021 6:41 PM EDT OUTCOME EVALUATION NOTE: OUTCOME SUMMARY: Patient arrived from PACU this afternoon, see previous note. Patient a/ox4, denies SOB, CP, dizziness, and N/V. Reports severe anxiety, intermittently impulsive and argumentative with staff. Patient's pain not adequately controlled with scheduled and PRN medications, see MAR for medications given. Initially refusing to take narcotic pain meds, team rounded, accepted 2mg of Dilaudid for 10/10 neuropathic pain. Gabapentin ordered 1x with positive effect. VSS on 4L nasal cup, ex tachycardia, team paged. EKG obtained, pt in sinus tachycardia with R bundle branch block, team paged. Hemoglobin recheck WDLs. Incisions and lap sites to abdomen C/D/I, YAS. PIVs intact, R PIV with IVF running. Tolerating carb control diet. Blood glucose in high 200s, 2-hour recheck due at 20:00. Refusing to take scheduled insulin as ordered, team notified. Late dinner ordered, meal coverage due once dinner arrives. Voiding through leach, urine dark/brown-tinged. Will continue to monitor and help patient reach d/c goals. PLAN MOVING FORWARD: Pain control Mobilize Monitor BG at 20:00 D/C planning INDIVIDUALIZED FALL PREVENTION: Patient is currently a high risk to Fall. Patient educated on bed/chair alarm, demonstrates proper use of call sampson and verbalizes understanding of fall preventions implemented. Patient-specific fall risk factors per assessment: [current deficits]: PIVs, incisions, impulsiveness, Pain, Medications, Hospital Environment, Impaired Mobility, Recent Surgery Assistance [level of assistance required for transfers and ambulation]: SBA with FWW from home Supervision [direct monitoring required during toileting and ADLs]: Moderate assistance with ADL's, hands on Surveillance [continuous indirect monitoring]: Masimo, Purposeful Rounding, Nurse Knowledge Exchangeat Bedside, Bed Alarm Set Jessenia Henderson RN - 06/17/2021 4:54 PM EDT Patient refusing insulin, team notified. Requesting to speak with both the urology and diabetes management teams in person, team paged. Jessenia Henderson RN - 06/17/2021 1:35 PM EDT Pt arrived to floor from PACU after a laparoscopic nephroureterectomy. Pt alert and oriented x4. Pt reports pain 10/10. Pt denies any chest pain, shortness of breath, or dizziness. Reports intermittentnausea. Reports severe anxiety and neuropathic pain, requesting non-narcotic, neuropathic pain meds,will contact team. Refusing PRN pain meds and Tylenol. Refer to doc flow sheets for full assessment.VSS on nasal cup at 4L, tachycardic, team notified. Suction in room at bedside. Reports that her sugar is very low, blood glucose taken, POC glucose resulted at 233, no interventions implemented at this time. Patient oriented to room with call sampson within reach. [place] on. Will continue to monitor. Madison Lockett OT - 06/17/2021 1:25 PM EDT Occupational Therapy Evaluation Patient Profile: Nancy Pichardo is a 66 y.o. female who presented with hx of right upper tract UCC s/p right laparoscopic nephroureterectomy POD #1. Social History: Pt lives with her in [place], [place] o Home Set-Up: One level home with no stairs to enter, full accessible o PLOF: Required assist from her for dressing, bathing, and toileting during chemo treatments, stays in a hospital bed and has a commode next to it, independent at baseline before chemo treatments, was receiving VNA services, uses a rollator o DME: rollator, hospital bed, commode Precautions/Special Considerations: at risk to fall, full code, supplemental O2 o Lines: PIV o Activity Orders: act as tolerated o Diet: carb control diet Subjective: I could take better care of myself if I was at home Objective: Seen today for OT evaluation. Vitals: HR: 99, SpO2: 92% on RA, 94% on 2L via NC, BP: 132/52 Pain: no c/o pain Skin: not assessed Cognitive Status/Behavior: o Behavior / Mood: alert and cooperative o Alert and oriented to: person, place, time and situation o Follows commands: 1 step, 2 step and 100% of the time o Attention: distractible, fatigued, frequently falling asleep o Safety awareness: impaired Vision & Perception: o WNL/WFL Communication/Hearing: o Hearing WFL bilaterally Musculoskeletal: o Hand dominance: right o ROM: B UE & LE grossly functional o Strength: B UE & LE grossly functional o Sensation: not assessed o Coordination: not assessed Activities of Daily Living: o Self-feeding: set up A, cues d/t distractibility o Grooming: set up A, cues d/t distractibility o Dressing: maximal A for LB dressing o Bathing: not tested o Toileting: not tested, + leach catheter Functional Mobility: o Supine <> Sit: minimal A o Sit <> Stand: cgA x 2 with rollator o Transfers: cgA x 2 with rollator o Ambulation: cgA x 2 with rollator, approx 3 steps then requested to sit d/t fatigue & feeling faint Balance: o Sitting Static: good o Sitting Dynamic: good o Standing Static: good o Standing Dynamic / Gait: good Education: Patient has been educated on Role of occupational therapy and rehabilitation, Transfers, ADL's, Positioning, Safety, Functional Mobility, Activity pacing/Energy conservation training, Balance, DME Recommendations, Safe ROM/Exercise, and Discharge planning. Patient verbalized understanding. Patient status, treatment, and activity/mobility recommendations discussed with nursing. Assessment: Pt has been seen for occupational therapy evaluation. Nancy Pichardo presents with the following performance skill deficits and client factors: increased pain, decreased activity tolerance, decreased sitting/standing balance, hemodynamic instability, cognitive deficits, deconditioning, compr omised mobility status and coping. These performance deficits have led to activity limitations and participation restrictions in the following areas of occupation: dressing, bathing, grooming, toileting, transfers/mobility, home management, leisure, driving and community mobility. Pt very lethargic and mildly agitated throughout evaluation. She was very concerned re: her blood sugar and was difficultto redirect. She required cgA and maximal verbal cues for safety for functional mobility. She will likely benefit from inpatient acute rehabilitation once medically ready for discharge given PLOF &level of assist at home ( can assist in mornings but is gone all day). Pt would benefit from further inpatient OT interventions to address performance deficits and maximize participation and independence with occupations of daily living. Equipment needs at discharge: none Anticipated Discharge Disposition (OT): acute rehabilitation facility Goals: To be achieved by 06/23/21 Patient will complete toilet transfer & hygiene independently with rollator Patient will complete standing grooming tasks at sink independently with rollator Patient will ambulate functional household distances to bathroom & kitchenette with supervision & rollator Patient will don/doff UB & LB clothing sitting EOB or upright in chair with set up A and LH AE as needed Patient will attend to functional task for 10 mins with minimal verbal cues OT: Therapy Frequency (OT): 2-3 times/wk Planned OT interventions: Role of occupational therapy/rehabilitation, Transfers, Assistive device/technique, Adaptive equipment training, ADL, Exercise, Breathing exercises, Positioning, Safety, Precautions/Protocol, Brace Management, Car Transfers, Functional Mobility, Activity pacing/Energy conserva tion, Home Program, Home Management, Balance, Recommendations, Family training, and Discharge planning. 2017 OT Evaluation Code Rationale: Diagnosis & Pertinent Co-Morbidities affecting Plan of Care: see PMHx Occupational Profile & Client History: Brief Expanded Extensive x Assessment of Occupational Performance: 1-3 performance deficits 3-5 performance deficits 5 + performance deficits x Clinical Decision Making: Low Moderate High x Clinical decision making of high complexity using standardized patient assessment instrument and measurable assessment of functional outcome. 23 minutes; evaluation Ana Lockett OT #[id number] Deonna Nguyen RN - 06/17/2021 11:11 AM EDT RN lunch coverage FS 228 pnt back in bed... crying 2/2 neuropathy pain. Chair being occupied by another Got a different bed obtained [place] mattress Did not feel it would be any different pnt refused offer of pain med Repositioned in bed Visitor in Ml Keenan PT - 06/17/2021 9:32 AM EDTSmesha ABDULLAHI REC: SNF vs Swing rehab, ambulance transport Physical Therapy Evaluation Patient profile: Nancy Pichardo is a 66 y.o. female with PMH significant for T2 DM, HLD, HTN, CHF, PTSD, thrombophlebitis and renal carcinoma who was admitted on 06/16/2021 currently being treated for ??right laparoscopic nephroureterectomy Patient with the following active problems: Past Medical History: Diagnosis Date ??? Anemia [...] as a child Procedure Date: Unknown Social History: Patient lives with her spouse in a single level HC accessible home. There are stairs but pt reports she does not have to do them unless she wants to. No stairs to enter home, per pt. She is normally independent with use of rollator walker in side the home, except when she is actively undergoing treatment, then needing more assist and remaining largely in bed. Pt sleeps in hospital bed, and has bedside commode. Spouse works radio time buyer, so pt is alone much of the day. He assists with dressing and morning meal. Precautions/Special Considerations: Fall risk, full code, leach catheter, supplemental O2, carb control diet, AAT Mobility and Positioning Recommendations: ?? Pt. to utilize 4WW and 1 Assist for transfers with nursing. Additional assist/chair follow recommended for ambulation ?? Please encourage up to chair for meal times as able. ?? Pt encouraged to ambulate frequently with staff, getting into the bathroom for toileting and walking out in the [place] >/= 3 times daily as able. Subjective: ???You are rushing me, I know it's my sugars making me feel like this, I wish I could just check them myself?? Objective: Pt seen for initial evaluation today. Pain: Initially reporting one, then switching answer to all over. Generalized pain. Surgical pain. Did not rate Vital Signs: At Rest With Activity SpO2 (RA-3L nasal cup) 94% on nasal cup, 91% on RA 90-91% on RA BP (MAP) 132/52mmHg mmHg HR 99bpm 100bpm Mental Status: lethargic, drowsy, intermittently dozing off at rest. Oriented to person and place atleast Vision: WFLS but intermittent eyes closed due to fatigue Skin: N/A Musculoskeletal: ROM: WFLS Strength: WFLS Sensation: intact per baseline - hx DM Bed Mobility: Supine to Sit: HOB elevated, supervised to R side EOB (don't touch me - per pt) Sit to Supine: N/A pt left OOB to chair post PT Transfers: Sit to Stand: use of 4WW, needing assist to lock brakes prior to standing and to cue for safety. Yaritza x2 Stand to Sit: min A x2 with cues for use of UEs, pt impulsively sitting Bed to Chair: min A x1-2 with 4WW, stand step Other: N/A Gait: Distance: 2 feet in room Device Used: 4WW Level of Assist: CGA-min A with chair follow Gait Comments: pt initially motivated to ambulate, then took a few steps and decided to sit impulsively. Needing assist to manage walker brakes Stairs: N/A Balance: Sitting Static: good Sitting Dynamic: good Standing Static: fair Standing Dynamic / Gait: Poor-fair with 4WW, CGA-Yaritza needed Exercises: N/A Self Care: See OT note for details Education: patient educated on role of therapy, bed mobility, safety, use of AD, PLB, transfers, ambulation, and DC planning, with poor understanding/demonstration. Patient status, treatment, and mobility recommendations discussed with nursing. Team Communication: Secure chat with TAINA Carlos regarding recommendation for SNF/swing rehab placement Assessment: Nancy Pichardo was seen today for physical therapy evaluation. Pt presented with physicalimpairments of pain, arousal, fatigue, cognition, activity tolerance, dizziness, aerobic capacity, balance, and functional endurance, which are currently contributing to functional limitations. Pt needi ng some encouragement and education to participate, but cooperative with evaluation. Pt easily agitated at times, needing increased time for all activites. Pt intermittently falling asleep and dozing off upon interview, but once active slightly more alert. Able to perform bed mobility, transfer, and a take a few steps in room with 4WW, however unable to progress further due to pt affect/demeanor, shakiness/dizziness, and fatigue. Currently, pt presents below her functional baseline and would be unsafe to return home. Recommend ongoing skilled therapy in a subacute rehab setting, when medically appropriate. Pt will benefit from skilled therapy services throughout hospitalization to promote safety, independence, and provide developmental support/caregiver education. Discharge Recommendations: Based on the current findings, Anticipated Discharge Disposition (PT): swing bed rehabilitation facility, longterm facility when medically ready for hospital discharge. Discharge recommendation is based on the patient's current physical impairments, prior functional status, potential to return to prior level of function, patient motivation, reported home support, potential for functional gains, current level of endurance, reported home environment and anticipated trajectory of progress and may change based on patient progress during this hospitalization. Consult Recommendations: No other consults recommended at this time. Equipment Needs: Anticipated Equipment Needs at Discharge (PT): to be determined Transportation Needs: ambulance Cleared Physical Therapy? NO Goals: To be achieved by 06/26/21: 1. Pt. to demonstrate knowledge of safety limitations and precautions 2. Pt. to demonstrate understanding of appropriate exercises. 3. Pt. to perform bed mobility with modified independence using bed features 4. Pt. to perform sit to/from stand and stand step transfers with 4WW and modified independence 5. Pt. to ambulate 150 feet with modified independence and least restrictive assistive device (uses 4WW typically) Plan: Therapy Frequency (PT): 2-4 times/wk for therapy including balance training, bed mobility training, gait training, home exercise program, patient/family education and transfer training. Patient/family understand and agree with plan as stated above. 2017 PT Evaluation Code Rationale: ?? Diagnosis & Pertinent Co-Morbidities, personal factors, and present illness affecting Plan ofCare: (see above); Additional personal factors or co- morbidities that impact plan: ?? Total # of Factors: (DM, chemo treatment, vertigo, affect, demeanor) 0 1-2 3+ x ?? Examination of body system impairments, functional limitations and behaviors, and/or participation restrictions. Addressing 1-2 elements Addressing 3 + elements Addressing 4 + elements x ?? Clinical presentation: See assessment above. (fatigue, spO2, shakiness, affect, arousal) Stable/Uncomplicated Evolving/Fluctuating Symptoms Unstable/Unpredictable x ?? Clinical decision making of moderate complexity based on pt's functional performance as outlined in this evaluation. Time IN / OUT: 7327-9114 Total Minutes, Physical Therapy: 22 (Eval) Thank you for this consult. Ml Keenan, PT Pager: [phone] Physical Therapy Inpatient Rehabilitation Department Daysi Montilla PA - 06/17/2021 8:13 AM EDT Urology Inpatient Progress Note ID: Nancy Pichardo is a 66 y.o. female with hx of right upper tract UCC s/p right laparoscopic nephroureterectomy POD #1 Events over the last 24 hrs: Pt reports that pain is not well controlled This morning started with jerking movements, involuntary Was nauseous overnight, not currently No flatus Boarded in PACU overnight Not yet OOB Objective: Temp: [36.5 ??C (97.7 ??F)-37.1 ??C (98.8 ??F)] Heart Rate: [64-92] Resp: [13-18] BP: (110-178)/(50-80) SpO2: [89 %-97 %] Heart Rate from SpO2: [64 bpm-95 bpm] I/O last 3 completed shifts: In: 3595 [I.V.:3595] Out: 1025 [Urine:625; Blood:400] Physical Exam Gen- NAD, resting comfortably CV-- RRR Resp- nonlabored breathing on 5L NC Abd- soft, appropriately tender, nondistended Incisions - c/d/i - Leach draining CYU Ext- warm and well perfused, no edema Labs Recent Labs 06/17/21 0115 WBC 22.7* HGB 8.9* HCT 28.4* PLATELET 207 NA 140 K 5.1* CL 106 CO2 22 BUN 32* CREATININE 1.50* GLUCOSE 254* Assessment/Management/Plan: Nancy Pichardo is a 66 y.o. female who presented with hx of right upper tract UCC s/p right laparoscopic nephroureterectomy POD #1. Recovering as expected. Goals today are improved pain management, advancing diet, ambulation. Pt will have Leach in place for 7-10 days, with cystogram prior to removal. Recheck hemogram this afternoon to monitor anemia of acute blood loss in setting of anemia of chronic disease (malignancy). Neuro: PO Tylenol scheduled. Lidoderm patch x 3. PO and IV Dilaudid. CV: currently stable. Metoprolol 12.5 mg BID. Holding losartan 100 mg and Lasix 30 mg BID. Holding Eliquis. Resp: stable on room air, encourage IS GI: Colace, Miralax. Home Protonix and sucralfate. Zofran and Compazine prn : continue monitoring UOP, Leach in place. FEN: replace lytes prn, NS @ 100 ml/hr, carb control diet Endo: DM. SSI and meal associated insulin. DM team consult. Holding home Tresiba. Heme: continue ppx SQH ID: afebrile Prophylaxis: SQH, Protonix, SCDs, encourage ambulation Dispo: stable on floor status, will discuss discharge planning with progressive care nurse. PT/OT ordered. Code status: Full code Lilia Winters RN - 06/17/2021 7:12 AM EDT 07 Report received from MORTEZA Reed. Pt position adjusted in bed, yells out in paid with movement. Team at bedside and aware, plan to order lidocaine patches. Mar reviewed 07 Pt pain 10/10 but in left lower back, not at surgical site. Declining narcotics, states that she feels too drowsy/groggy that she cant stay awake. Given scheduled tylenol and heat applied to left lower back. Plan for lido patches, awaiting order. Mouth breathing, desatting to 80s even with nasal c annula, switched to nasal cup with good effect. Encouraged IS, needs a lot of assistance. Incision sites CDI. 0930 PT/OT at bedside for eval, transferred to chair by PT 1240 Report given to Jessenia PRO on 3. Pt eating some lunch, very minimal. Gwen Souza MD - 06/17/2021 2:33 AM EDT UROLOGY POST-OP NOTE Nnacy Pichardo is a 66 y.o. female s/p robot assisted laparoscopic total nephroureterectomy Subjective Patient is sleeping comfortably in bed. She is tolerating drinks of water. Pain well-controlled. Denies nausea/vomiting, chest pain, SOB. Objective Temp: [36.5 ??C (97.7 ??F)] Heart Rate: [64-78] Resp: [13-18] BP: (110-171)/(50-80) SpO2: [89 %-96 %] Heart Rate from SpO2: [64 bpm-77 bpm] I/O this shift: In: 1957 [I.V.:1957] Out: 900 [Urine:500; Blood:400] Physical Exam GEN: NAD. Resting comfortably. CV: RRR, CHEST: No increased WOB. ABD: Soft, nontender to light palpation, non-distended. Incisions clean and dry without drainage or surrounding erythema. EXTR: Moving spontaneously, warm. SCDs in place. : No blood at meatus. Leach draining cyu Assessment/Plan Nancy Pichardo is a 66 y.o. female s/p robot assisted laparoscopic total nephroureterectomy. Stable post-op. - Pain well-controlled on current regimen. - Hemodynamically stable. - UOP adequate, continue to monitor. - SCDs in place. Derek Muller RN - 06/17/2021 1:26 AM EDT 2300- Pt arrived in PACU, Oral airway in place, 6L simple mask in place, Lungs CTA, LAP sites WNL, VSS, Adrienne zeroed, Leach in place, will monitor. 0115- AM labs sent off, [place] D/C'd, will monitor. 0400- Pt lying comfortably VSS, pain tolerable, Lap sites unchanged, service made aware of AM labs, PACU teeriscott met 0630- Report given to dayshift documented in this encounter H&P Notes Papa Jimenez MD - 06/16/2021 11:54 AM EDT Images from the original note were not included. Urology PreOp H&P Nancy Pichardo 66 y.o. female with [id number] UCC of the upper tract s/p neoadjuvant chemotherapy with complete response who presents for right-sided robotic- assisted lap nephroureterectomy and retroperitoneal lymph node dissection. She has been holding her Apixaban for 8 days. No changes to medications, no fevers, chills, headaches, chest pain, new cough, nausea, emesis, constipation, diarrhea, difficulty urinating, one sided numbness or tingling sensation. Denies recent hospitalization. 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 01/13/2021 High Grade Cytology ?? A biopsy of her retroperitoneal lymph nodes 12/2020 ? Final Diagnosis ?? A. LYMPH NODE, RETROPERITONEUM, CT-GUIDED CORE NEEDLE BIOPSY: - Positive for carcinoma, favor urinary bladder primary, high-grade. ??See comment. ?? ~ 05/11/2021 Completed 4 cycles of GemCarbo Platin ?? She was admitted after some of her chemo for CHF. Recently ~ 05/22 for a blood transfusion On apixaban related Right arm thrombo phlebitis. CT A/P 03/22/[address] - 04/30/2021 - IMPRESSION 1. Anatomically decrease in size of known right upper tract urothelial carcinoma tumor, residual tumor difficult to evaluate secondary to normally excreted activity within the collecting system. 2. No suspected residual active champ metastases. 3. Interval small FDG avid left axillary and left lower neck/supraclavicular lymph nodes, favored likely reactive related to recent Covid vaccination. No current facility-administered medications on file prior to encounter. Current Outpatient Medications on File Prior to Encounter Medication Sig Dispense Refill ??? apixaban (Eliquis) 2.5 mg Tablet Take 1 tablet by mouth 2 times daily. 60 tablet 5 ??? humaLOG KwikPen 100 unit/mL Insulin Pen INJECT SUBCUTANEOUSLY PER SLIDING SCALE THREE TIMES A DAY BEFORE MEALS 101TO 150 2 UNITS 151 TO 200 4 UNITS 201 TO 250 6 UNITS 251 TO 3 ??? furosemide (Lasix) 20 mg Tablet Take 20 mg by mouth 2 times daily. ??? [DISCONTINUED] cyanocobalamin, vitamin B-12, 500 mcg Tablet Take 500 mcg by mouth daily. ??? senna (Senokot) 8.6 mg Tablet Take 2 tablets by mouth 2 times daily. 120 tablet 3 ??? nystatin (MYCOSTATIN) Powder APPLY 1 GRAM TOPICALLY TWO TIMES A DAY NEEDED FOR 30 DAYS ??? docusate sodium (Colace) 100 mg Capsule Take 100 mg by mouth 2 times daily. ??? cholecalciferol, Vitamin D3, (Vitamin D3) 1,000 unit Tablet Take 1,000 Units by mouth Daily. ??? nystatin-triamcinolone (MYCOLOG II) Cream Apply topically Twice daily. ??? insulin degludec (Insulin Tresiba FlexTouch U-100) 100 unit/mL (3 mL) Insulin Pen Inject 58 Units subcutaneously daily. ??? losartan (COZAAR) 100 mg Tablet Take 100 mg by mouth daily. ??? spironolactone (Aldactone) 25 mg Tablet Take 12.5 mg by mouth daily. Patient stated she cuts pill in half and only takes half a tablet daily. ??? sodium phosphates (FLEET) Enema Place 1 enema rectally once as needed. ??? [DISCONTINUED] nitrofurantoin (MACRODANTIN) 100 mg Capsule TAKE 1 CAPSULE BY MOUTH TWICE DAILY FOR 7 DAYS THEN JUST DAILY FOR 14 DAYS DIRECTED ??? [DISCONTINUED] pyridoxine, vitamin B6, (B-6) 100 mg Tablet Take 100 mg by mouth daily. ??? Jeanne Pen Needle 32 gauge x Needle ??? [DISCONTINUED] omeprazole (PriLOSEC) 20 mg Capsule, Delayed Release(E.C.) Take 1 capsule by mouth nightly. (Patient not taking: Reported on 04/20/2021) 30 capsule 0 ??? blood sugar diagnostic strips Strip 1 strip by NOT APPLICABLE route Three times a day. ??? [DISCONTINUED] prochlorperazine (Compazine) 10 mg Tablet Take 1 tablet by mouth every 6 hours asneeded for Nausea. (Patient not taking: Reported on 02/04/2021) 30 tablet 2 ??? [DISCONTINUED] ondansetron (Zofran) 8 mg Tablet Take 1 tablet by mouth every 8 hours as needed for Nausea. (Patient not taking: Reported on 06/02/2021) 20 tablet 3 Allergies Allergen Reactions ??? Atorvastatin Calcium CIS - leg pain, CIS - leg pain, CIS - leg pain, CIS - leg pain, CIS - leg pain ??? Simvastatin CIS - leg pain, CIS - leg pain, CIS - leg pain, CIS - leg pain, CIS - leg pain ??? Loratadine Palpitations hyper ??? Sulfa (Sulfonamide Antibiotics) There were no vitals filed for this visit. Exam: General: Alert and oriented x4 Heart: RRR Lungs: No audible wheezing Abdomen: Soft, non-tender/distended Extremities: Warm, no edema No results found for this or any previous visit (from the past 24 hour(s)). Microbiology Results (Last 30 days) Procedure Component Value Units Date/Time Urine culture Clean Catch Urine [[id number]] Collected: 06/02/21 111 Lab Status: Final result Specimen: Clean Catch Urine Updated: 06/03/211137 Urine Culture -- 10,000-49,000 cfu/ml Normal mucosal mekhi Susceptibility testing not routinely performed for Coagulase Negative Staphylococcus species and other Gram Positive organisms from urine. Assessment/Plan Proceed with scheduled procedure Procedure(s): @LAPAROSCOPY TOTAL NEPHROURETERECTOMY, ROBOTICS ASSIST (WRVU 25.36) MODIFIER ROBOT,DAVINCI XI - RIGHT documented in this encounter Miscellaneous Notes Care Management Discharge - Yocasta Downing, RN - 06/24/2021 11:37 AM EDT CARE MANAGEMENT FINAL DISCHARGE NOTE Chart reviewed, care reviewed with primary team and at interdisciplinary rounds. Patient is medically ready for discharge to To facility . Needs for Transition of Care: Plan for discharge is: Shelter Facility / Swing Agency Referrals & Follow-up Care: Contact information for follow-up [facility] [address] [place] [address] Pt has accepted a bed at [facility] Transportation: Ambulance Ambulance transportation is medically necessary at discharge related to Surgery , pain unable to tolerate seated position for length of ride I have discussed Medicare/Private Insurance reimbursement guidelines for ambulance transport. Patient and Derek verbalize understanding of their potential financial obligation and agree with ambulance transport. Functional status prior to admission: Assistive Equipment Home Environment: Others in the home: spouse. Current Living Arrangements: home/apartment/condo. Accessibility Concerns:Per PT eval 06/18/2021: Patient lives with her spouse in a single level HC accessible home. There are stairs but pt reports she does not have to do them unless she wants to. No stairs to enter home, per pt. She is normally independent with use of rollator walker in side the home, except when she is actively undergoing treatment, then needing more assist and remaining largely inbed. Pt sleeps in hospital bed, and has bedside commode. Spouse works radio time buyer, so pt is alone muchof the day. He assists with dressing and morning meal.. Current Functional Ability: Assistive Person and Equipment DME used at home: other (see comments) (Rollator) DME Needed at DC: None Patient is insured through: Primary Insurance: [employer] OOS Payor: [employer] OOS / Plan: [facility] OOS INDEMNITY / Product Type: *No Product type* / Secondary Insurance: MEDICARE Prescription Coverage: Yes Preferred Pharmacy: [id number] - [place], [place] - [address] [facility] [address] This plan was formulated with input from patient,and team. All are in agreement with plan. I have verbally reviewed Medicare Discharge Rights with patient. Patient verbalizes understanding ofright to appeal this discharge if feeling not medically ready. Offered a copy of this letter. Office of Care Management TAINA Downing RNCM Beeper #[id number] Plan of Care - Leeanne Lewis RN - 06/24/2021 4:24 AM EDT OUTCOME EVALUATION NOTE: OUTCOME SUMMARY: AOx4, VSS on RA, pain consistently rated 10/10 but pt is reluctant to take dilaudid as it makes her feel out of it and sick. Ice and heat applied with no improvement. She eventually agreed to take 2mg with little effect. Lap sites to abdomen well approximated Ambulating to bathroom to void frequently, voiding adequate amounts Pt unable to get comfortable overnight and did not sleep much. RN assisted with frequent repositioning in bed and up to chair PLAN MOVING FORWARD: Anxiety/behavior management Pain control Discharge to rehab tomorrow INDIVIDUALIZED FALL PREVENTION INTERVENTIONS: Patient-specific fall risk factors per assessment: [current deficits]: Generalized weakness, lines & drains Assistance [level of assistance required for transfers and ambulation]: 1 assist w/ rolling walker Supervision [direct monitoring required during toileting and ADLs]: Eyes on, arms reach Surveillance [continuous indirect monitoring]: Alvaro, bed alarm, chair alarm Patient-specific fall prevention interventions for sensory deficits provided, if applicable: [X] No CPG GOAL OUTCOME EVALUATION: Plan of Care - Siri Rodríguez RN - 06/23/2021 1:55 PM EDT OUTCOME EVALUATION NOTE: OUTCOME SUMMARY: Patient A/OX4, continues to be hypertensive, medications adjusted. Patient extremely anxious, frequently seeking out staff. Cystogram completed, leach removed @ 1300, pt due to void. Up for multiple walks with staff. Family at bedside. PRN dilaudid given x1. Pt resting between care. No further events o ccurred. Will continue to monitor. PLAN MOVING FORWARD: Waiting insurance, D/C planning, voiding trail INDIVIDUALIZED FALL PREVENTION INTERVENTIONS: Patient-specific fall risk factors per assessment: [current deficits]: pain, weakness, anxious Assistance [level of assistance required for transfers and ambulation]: 1A w/ walker Supervision [direct monitoring required during toileting and ADLs]: eyes on Surveillance [continuous indirect monitoring]: purposeful rounding, room near nursing station, call sampson within reach Patient-specific fall prevention interventions for sensory deficits provided, if applicable: [X] N/A CPG GOAL OUTCOME EVALUATION: Plan of Care - Leeanne Lewis RN - 06/22/2021 7:59 PM EDT OUTCOME EVALUATION NOTE: OUTCOME SUMMARY: AOx4, VSS on RA, pain controlled w/ PRN & scheduled meds Lap sites to abdomen well approximated Leach in place draining CYU. Pt received fleet enema & AM suppository,with good effect oob to chair for meals Bed & chair alarm in use. Pt intermittently set off chair alarm while trying to reposition self,safety education provided. Pt very anxious and agitated this am because breakfast tray did not come at the time she expected. Pt was inconsolable and not redirectable, explaining that it is critical for her to receive breakfast at the same time daily, otherwise she is in pain and feels ill. Blood sugar this am was 108 prior to meal, education provided about in hospital diabetes management PLAN MOVING FORWARD: Anxiety/behavior management Pain control Discharge to rehab tomorrow INDIVIDUALIZED FALL PREVENTION INTERVENTIONS: Patient-specific fall risk factors per assessment: [current deficits]: Generalized weakness, lines & drains Assistance [level of assistance required for transfers and ambulation]: 1 assist w/ rolling walker Supervision [direct monitoring required during toileting and ADLs]: Eyes on, arms reach Surveillance [continuous indirect monitoring]: Alvaro, bed alarm, chair alarm Patient-specific fall prevention interventions for sensory deficits provided, if applicable: [X] No CPG GOAL OUTCOME EVALUATION: Consult Note - Eric Walls MD - 06/22/2021 10:15 AM EDT Vascular Surgery - Consultation Note Date of Consultation: 06/22/2021 Consult Service: Vascular Surgery Responsible Attending: Moe Place of Service: Inpatient Unit Reason for Consult: We are seeing Nancy Pichardo at the request of Dr. Izabella Davis of the Urology service for the evaluation of RUE superficial vein thrombophlebitis. I have reviewed the available records, interviewed, and examined the patient. Active Problem List: Active Hospital Problems Diagnosis ??? Renal cancer ??? Type 2 diabetes mellitus, with long-term current use of insulin Resolved Hospital Problems No resolved problems to display. Active Non-Hospital Problems Diagnosis ??? Acute congestive heart failure ??? Acute [...] - Obesity->better weight control ??? CIS - Hyperlipidemia ??? CIS - Tobacco use History of Present Illness: Nancy Pichardo is a 66 year old female former smoker (40 p-y, quit 2019) with history of IDDM2, HTn,HLD, CHF 2/2 chemotherapy, arthritis and history of right upper extremity thrombophlebitis in February 2021. She initially started Lovenox for treatment of her RUE superficial thrombophlebitis but switched to Eliquis as she developed lumps in her belly at the site of the subcutaneous injections. The trigger for her thrombophlebitis was two PIV placements at [facility] in the right cephalic vein andpatient reports that there was erythema and tenderness from the antecubital fossa to the proximal arm. Denies family history of DVT or PE, and no history of bleeding or clotting disorders. She is now 6 Days Post-Op status post right laparoscopic nephroureterectomy. Lives at home alone. 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 Independent with ADLs. Review of Systems: A 14-point review of systems was performed and was negative except for the aforementioned findings. Past Medical and Surgical History: Past Medical History: Diagnosis Date ??? Anemia [...] NEPHROURETERECTOMY, ROBOTICS ASSIST (WRVU 25.36) [facility] Medications: Current Facility-Administered Medications: ??? sodium phosphates (FLEET) 19-7 gram/118 mL rectal enema 1 Bottle, 1 Bottle, Rectal, Daily PRN, Daysi Montilla PA ??? furosemide (Lasix) tablet 20 mg, 20 mg, Oral, BID, Daysi Montilla PA, 20 mg at 06/22/21 0824 ??? insulin lispro (HumaLOG;Admelog) (100 unit/mL) subcutaneous injection vial 0-15 Units, 0-15 Units, Subcutaneous, TID WC, Meera Mohr, SOCIAL WORK PROFESSOR, 6 Units at 06/22/21 0836 ??? insulin glargine (Lantus) (100 unit/mL) subcutaneous injection vial 45 Units, 45 Units, Subcutaneous, Q24H, Meera Mohr, SOCIAL WORK PROFESSOR, 45 Units at 06/22/21 0836 ??? calcium carbonate (Tums) chewable tablet 1,000 mg, 1,000 mg, Oral, Daily PRN, Prakash Phillips MD, 1,000 mg at 06/20/212031 ??? bisacodyL (Dulcolax) suppository 10 mg, 10 mg, Rectal, Daily, AlyceAlyssa MD, 10 mg at 06/22/21 1002 ??? prochlorperazine (Compazine) (5 mg/mL) injection 5 mg, 5 mg, Intravenous, Q6H PRN, Gwen Souza MD, 5 mg at 06/19/21 1256 ??? lidocaine (Lidoderm) 5% topical patch 3 patch, 3 patch, Transdermal, Q24H, 3 patch at 06/22/21 0825 AND lidocaine (Lidoderm) topical patch REMOVAL, 1 patch, Transdermal, Q24H, Daysi Montilla PA ??? metoprolol tartrate (Lopressor) tablet 12.5 mg, 12.5 mg, Oral, 2 times per day, Daysi Montilla PA, 12.5 mg at 06/22/21 0823 ??? pantoprazole EC (Protonix) tablet 40 mg, 40 mg, Oral, Daily, Daysi Montilla PA, 40 mg at 06/22/21 0824 ? ? sucralfate (Carafate) (100 mg/mL) oral liquid 1 g, 1 g, Oral, 4 Times Daily AC & HS, Daysi Montilla PA, 1 g at 06/22/21 0718 ??? POCT Fingerstick Glucose, , , Q4H AND insulin lispro (HumaLOG;Admelog) (100 unit/mL) subcutaneous injection vial 1-6 Units, 1-6 Units, Subcutaneous, Q4H MO, Meera Mohr, SOCIAL WORK PROFESSOR, 3 Units at 06/22/21 0039 ??? polyethylene glycoL (Miralax) packet 17 g, 17 g, Oral, Daily PRN, Daysi Montilla PA, 17 g at 06/22/21 0000 ??? senna (Senokot) tablet 8.6 mg, 8.6 mg, Oral, BID, Daysi Montilla PA, 8.6 mg at 06/22/21 0823 ??? sodium chloride 0.9 % (flush) (BD PosiFlush Normal Saline 0.9) flush 5 mL, 5 mL, Intravenous, BID, Papa Jimenez MD, 5 mL at 06/21/216 ??? sodium chloride 0.9 % (flush) (BD PosiFlush Normal Saline 0.9) flush 5-20 mL, 5-20 mL, Intravenous, Q1 Min PRN, Papa Jimenez MD, 10 mL at 06/20/21 0107 ??? lidocaine (Xylocaine) 1% (10 mg/mL) injection 3 mg, 0.3 mL, Subcutaneous, Once PRN, Papa Jimenez MD ??? ondansetron (Zofran) tablet 4 mg, 4 mg, Oral, Q8H PRN, 4 mg at 06/20/21 0306 OR ondansetron (pf) (Zofran) (2 mg/mL) injection 4 mg, 4 mg, Intravenous, Q8H PRN, Papa Jimenez MD, 4 mg at 06/19/21 0626 ??? docusate sodium (Colace) capsule 100 mg, 100 mg, Oral, BID, Papa Jimenez MD, 100 mg at 06/22/21 0824 ??? naloxone (Narcan) (0.4 mg/mL) injection 0.2 mg, 0.2 mg, Intravenous, Q1 Min PRN, Dick Jimenez MD ??? heparin (porcine) (5,000 units/1 mL) subcutaneous injection 5,000 Units, 5,000 Units, Subcutaneous, Q8H MO, Papa Jimenez MD, 5,000 Units at 06/22/21 0503 ??? acetaminophen (Tylenol) tablet 975 mg, 975 mg, Oral, Q6H [facility], Papa Jimenez MD, 975 mg at 06/22/21 0824 ??? HYDROmorphone (Dilaudid) tablet 2 mg, 2 mg, Oral, Q4H PRN, 2 mg at 06/21/21 1852 OR HYDROmorphone (Dilaudid) tablet 4 mg, 4 mg, Oral, Q4H PRN, 4 mg at 06/21/21 1753 OR HYDROmorphone (Dilaudid) tablet 6 mg, 6 mg, Oral, Q4H PRN, Papa Jimenez MD, 6 mg at 06/19/21 0622 ??? HYDROmorphone (Dilaudid) (2 mg/mL) injection solution 0.3 mg, 0.3 mg, Intravenous, Q2H PRN, Papa Jimenez MD, 0.3 mg at 06/17/21 0457 ??? glucose (GLUTOSE) 40% oral geL, 15-30 g, Buccal, Q30 Min PRN OR dextrose 10% infusion, 250 mL, Intravenous, Q30 Min PRN OR glucagon (Glucagen) (1 mg/mL) injection solution 1 mg, 1 mg, Intramuscular, Q30 Min PRN, Gwen Souza MD Prior To Admission Medications: Medications Prior to Admission Medication Sig Dispense Refill Last Dose ??? apixaban (Eliquis) 2.5 mg Tablet Take 1 tablet by mouth 2 times daily. 60 tablet 5 06/08/2021 at Unknown time ??? humaLOG KwikPen 100 unit/mL Insulin Pen INJECT SUBCUTANEOUSLY PER SLIDING SCALE THREE TIMES A DAY BEFORE MEALS 101TO 150 2 UNITS 151 TO 200 4 UNITS 201 TO 250 6 UNITS 251 TO 3 06/15/2021 at Unknown time ??? furosemide (Lasix) 20 mg Tablet Take 20 mg by mouth 2 times daily. 06/15/2021 at Unknown time ??? senna (Senokot) 8.6 mg Tablet Take 2 tablets by mouth 2 times daily. 120 tablet 3 06/15/2021 at Unknown time ??? nystatin (MYCOSTATIN) Powder APPLY 1 GRAM TOPICALLY TWO TIMES A DAY NEEDED FOR 30 DAYS 06/15/2021 at Unknown time ??? docusate sodium (Colace) 100 mg Capsule Take 100 mg by mouth 2 times daily. 06/15/2021 at Unknowntime ??? cholecalciferol, Vitamin D3, (Vitamin D3) 1,000 unit Tablet Take 1,000 Units by mouth Daily. 06/15/2021 at Unknown time ??? nystatin-triamcinolone (MYCOLOG II) Cream Apply topically Twice daily. 06/15/2021 at Unknown time ??? insulin degludec (Insulin Tresiba FlexTouch U-100) 100 unit/mL (3 mL) Insulin Pen Inject 58 Units subcutaneously daily. 06/15/2021 at Unknown time ??? losartan (COZAAR) 100 mg Tablet Take 100 mg by mouth daily. 06/15/2021 at Unknown time ??? spironolactone (Aldactone) 25 mg Tablet Take 12.5 mg by mouth daily. Patient stated she cuts pill in half and only takes half a tablet daily. 06/15/2021 at Unknown time ??? sodium phosphates (FLEET) Enema Place 1 enema rectally once as needed. Unknown at Unknown time ??? Jeanne Pen Needle 32 gauge x Needle ??? blood sugar diagnostic strips Strip 1 strip by NOT APPLICABLE route Three times a day. Allergies: Allergies Allergen Reactions ??? Atorvastatin Calcium [...] [Transparent Dressings] Dermatitis Tegaderm/stat-lock of IV dressing Family History: No family history on file. Social History and Habits: Social History Socioeconomic [...] since quittin.9 ??? Smokeless tobacco: Never Used Vaping Use ??? Vaping Use: Every day Substance and Sexual Activity ??? Alcohol use: Not Currently ??? Drug use: Never ??? Sexual activity: Not on file Other Topics Concern ??? Not on file Social History Narrative ??? Not on file Social Determinants of Health Financial Resource Strain: ??? Difficulty of Paying Living Expenses: Food Insecurity: ??? Worried About Running Out of Food in the Last Year: ??? Ran Out of Food in the Last Year: Transportation Needs: ??? Lack of Transportation (Medical): ??? Lack of Transportation (Non-Medical): Physical Activity: ??? Days of Exercise per Week: ??? Minutes of Exercise per Session: Physical Exam: Last Set of Vitals and Range over past 24 hours: Last value Range last 24 hrs Temperature Temp: 36.4 ??C (97.5 ??F) Temp: [36.4 ??C (97.5 ??F)-36.8 ??C (98.2 ??F)] Heart Rate Heart Rate: 81 Heart Rate: [81] Blood Pressure BP: 169/76 BP: (148-191)/(71-98) Respiratory Rate Resp: 20 Resp: [16-20] SpO2 SpO2: 97 % SpO2: [89 %-97 %] BMI: Weight: 96.6 kg (212 lb 15.4 oz) (06/16/21 1121) BMI (Calculated): 37.12 BMI Classification: Obese Physical Exam: General: NAD, AAOx4, pleasant, conversational HEENT: NC/AT, PERRL CV: RRR Pulm: Symmetric chest excursions bilaterally, unlabored breathing on RA Abd: Soft, non-distended Ext: RUE: Warm and well perfused. No edema. Palpable cord in right antecubital fossa and forearm without erythema or tenderness. LUE: Warm and well perfused. Good capillary refill. No edema. Neuro: Grossly nonfocal, moving all extremities spontaneously Vasc: Palpable radial and pedal pulses bilaterally. Laboratory (Last 24 Hours): Recent Results (from the past 24 hour(s)) COVID-19 PCR Specimen: Nasopharyngeal Swab For admission to rehab after discharge. Result Value Ref Range SARS-CoV-2 RNA PCR Not Detected Not Detected SARS-CoV-2 Source HELMET HAT PUNCHER Swab POCT Glucose Result Value Ref Range POC Glucose 95 65 - 199 mg/dL POCT Glucose Result Value Ref Range POC Glucose 97 65 - 199 mg/dL POCT Glucose Result Value Ref Range POC Glucose 77 65 - 199 mg/dL POCT Glucose Result Value Ref Range POC Glucose 89 65 - 199 mg/dL POCT Glucose Result Value Ref Range POC Glucose 182 65 - 199 mg/dL Basic Metabolic Panel (non-fasting) Result Value Ref Range Glucose Lvl 88 65 - 199 mg/dL BUN 34 (H) 8 - 18 mg/dL Creatinine 1.59 (H) 0.70 - 1.20 mg/dL Sodium 138 135 - 145 mmol/L Potassium 5.0 3.5 - 5.0 mmol/L Chloride 105 98 - 107 mmol/L CO2 24 22 - 31 mmol/L Anion Gap 9 5 - 15 mmol/L Calcium 9.2 8.5 - 10.5 mg/dL Estimated GFR 33 (L) >=60 mL/min/1.73 m?? Hemogram Result Value Ref Range WBC 12.8 (H) 4.0 - 9.5 x10(3)/mcL RBC 2.64 (L) 4.00 - 5.21 x10(6)/mcL Hemoglobin 7.7 (L) 11.7 - 15.5 gm/dL Hematocrit 24.3 (L) 35.7 - 45.8 % MCV 92.0 82.6 - 94.4 fL MCH 29.2 27.1 - 32.0 pg MCHC 31.7 31.7 - 35.0 gm/dL Platelets 238 145 - 357 x10(3)/mcL RDWSD 50.2 (H) 37.0 - 46.0 fL RDWCV 14.9 (H) 11.5 - 14.1 % MPV 10.7 7.6 - 12.9 fL nRBC % Auto 0.0 % nRBC Abs Auto 0.000 0.000 - 0.000 x10(3)/mcL Differential, Automated Result Value Ref Range Neutrophils % 71.8 % Neutr Abs (ANC) 9.21 (H) 1 - 6 x10(3)/mcL Lymphocytes % 9.7 % Lymphocytes Abs 1.2 0.9 - 3.2 x10(3)/mcL Monocytes % 7.5 % Monocyte Abs 1.0 (H) 0.3 - 0.9 x10(3)/mcL Eosinophils % 9.3 % Eosinophils Abs 1.2 (H) 0.0 - 0.4 x10(3)/mcL Basophils % 0.6 % Basophils Abs 0.1 0.0 - 0.1 x10(3)/mcL Immature Gran % 1.10 % Charlotte Gran Abs 0.14 (H) 0.00 - 0.04 x10(3)/mcL POCT Glucose Result Value Ref Range POC Glucose 95 65 - 199 mg/dL POCT Glucose Result Value Ref Range POC Glucose 108 65 - 199 mg/dL Vascular Studies: 03/22/2021 upper extremity venous ultrasound: ?? Right arm cephalic vein abdominal positive for intraluminal thrombus from the level of wrist to the mid upper arm overall length of 13 cm. Thrombus does not extend into axillary or subclavian vein. Incidentally noted slight prominence of bowel clavicular lymph nodes on the right side. The largest lymph nodes in the right groin measured 1.7 x 1.4 x 1.4 cm. ?? 03/21/2021 duplex venous ultrasound of lower extremities: ?? Impression: No ultrasound evidence of DVT in either lower extremity. ?? 03/19/2021 CT chest PE protocol: ?? Impression: No evidence of acute pulmonary emboli. Extensive bilateral groundglass type infiltrate which may be cardiogenic but recommend testing for COVID-19. No intrathoracic adenopathy. No pleural effusion. There is a moderate sized pericardial effusion. Assessment: Nancy Pichardo is a 66 y.o. comorbid female with the above medical history now recently status post right laparoscopic nephroureterectomy for urothelial cell carcinoma, and history of RUE superficial venous thrombophlebitis previously on anticoagulation. Lovenox was initially started at OSH given the patient's history of malignancy and was transitioned to Eliquis given intolerance of injections. Vascular Surgery was consulted regarding duration of anticoagulation. On examination, no evidence of thrombophlebitis and patient has nontender palpable cord in the right forearm. There is no strong data to support treatment of superficial venous thrombophlebitis in the upper extremity, but for superficial thrombophlebitis greater than 5 cm, six weeks of anticoagulation is oftenpursued as the risk of DVT is around 20% (from data in the lower extremities). Patient's thrombus was in the right cephalic vein and 13 cm in length in February 2021 without UE DVT. She has been on more than adequate treatment course and given absence of recurrent symptoms as well as clear inciting factor (PIV placement in the setting of malignancy), she does not require further anticoagulation for provoked superficial venous thrombophlebitis. Case discussed with Dr. Rosa. Recommendations are above, please page if further consultation required. Eric Walls MD 06/22/2021 Associated attestation - Lauri Rosa MD - 06/23/2021 9:05 AM EDT I saw and evaluated Nancy Pichardo and agree with this note and plan. Lauri Rosa MD, MS Section of Vascular Surgery Plan of Care - Nichelle Conti RN - 06/22/2021 5:03 AM EDT OUTCOME EVALUATION NOTE: ?? OUTCOME SUMMARY: ?? Pt A&Ox4, VSS on RA (3L NC overnight). Pt reporting BLE neuropathy and 2+ edema @ baseline, pt frequently mentioning home lasix. Pt intermittently manipulative with staff and argumentative. Pt refuses meds frequently, but then wants them an hour later. Pt pain adequately controlled with scheduled pain medications and PRN (see MAR). BG coverage provided as needed. Abd lap sites YAS. Leach in place draining CYU. Last BM 06/22. Bed/chair alarm settings appropriate for patient. Call sampson in reach, sleeping between care, will continue to monitor and help patient reach d/c goals. ?? PLAN MOVING FORWARD: ?? Leach (stays in for 10 days post-op) BG monitoring Pain control Mobilize / PT/OT D/c planning ?? INDIVIDUALIZED FALL PREVENTION: Patient is currently a high risk to Fall. Patient educated on bed/chair alarm, demonstrates proper use of call sampson and verbalizes understanding of fall preventions implemented. Patient-specific fall risk factors per assessment: [current deficits]: Lines/Drains, Pain, Medications, Hospital Environment. ?? Assistance [level of assistance required for transfers and ambulation]: SBA FWW ?? Supervision [direct monitoring required during toileting and ADLs]: Hands on / Eyes on with ADL's ?? Surveillance [continuous indirect monitoring]: Bed/chair alarm, Masimo, Purposeful Rounding, Nurse Knowledge Exchange ?? Patient-specific fall prevention interventions for sensory deficits provided, if applicable: n/a Plan of Care - Leeanne Lewis RN - 06/21/2021 6:56 PM EDT OUTCOME EVALUATION NOTE: OUTCOME SUMMARY: AOx4, VSS on RA, pain controlled w/ PRN & scheduled meds Lap sites to abdomen well approximated, pt endorsing intermittent gas pain Leach in place draining CYU. Pt declined AM suppository, but was agreeable in the evening with the presence of increased gas pain oob to chair for meals Nursing consult to diabetes RN placed, pt receptive to education Bed alarm in use, pt ringing appropriately PLAN MOVING FORWARD: Discharge to rehab Monday INDIVIDUALIZED FALL PREVENTION INTERVENTIONS: Patient-specific fall risk factors per assessment: [current deficits]: Generalized weakness, lines & drains Assistance [level of assistance required for transfers and ambulation]: 1 assist w/ rolling walker Supervision [direct monitoring required during toileting and ADLs]: Eyes on, arms reach Surveillance [continuous indirect monitoring]: Alvaro, bed alarm, chair alarm Patient-specific fall prevention interventions for sensory deficits provided, if applicable: [X] No CPG GOAL OUTCOME EVALUATION: Initial Assessments - Leigh Ann Dolan RN - 06/21/2021 9:18 AM EDT Office of Care Management Initial Assessment Leigh Ann Dolan RN reviewed record and discussed patient with Care Team. Source of Information: Team, bedside nurse, medical record, and Patient, Chart Review Introduced self/reviewed role; services accepted. Reason for Hospitalization: I had a right kidney removed. Past medical History: Past Medical History: Diagnosis Date ??? Anemia [...] ??? Vertigo uses walker, has peripheral neuropathy Hospitalizations Within the Past 30 Days: no previous admission in last 30 days Current Decision-Making Capacity: Self Advance Care Planning: Attempt Cardiopulmonary Resuscitation - Inpatient <no information> -Advanced Directive: Other (Derek Pichardo (Spouse)) If AD's have not been completed Derek Pichardo (Spouse) would be surrogate decision maker per [place] surrogate decision making law. (Only good for 90 days) Any patient receiving care at [facility] must abide by [place] law. The hierarchy for surrogate decision making is: (a) Patient???s spouse, or civil union partner or common law spouse unless there is a divorce proceeding, separation agreement, or restraining order limiting that person???s relationship with the patient. (b) Any adult son or daughter of the patient. (c) Either parent of the patient. (d) Any adult brother or sister of the patient. (e) Any adult grandchild of the patient. (f) Any grandparent of the patient. (g) Any adult aunt, uncle, niece, or nephew of the patient. (h) A close friend of the patient. (i) The agent with financial power of inspector precision assembly or a conservator appointed in accordance with RSA 464-A. (j) The guardian of the patient???s estate. Current Coping/Education/Information Needs: post-op recovery; requesting smaller rehab Current Functional Ability: 1 assist, Assistive Equipment and Assistive Person Functional Status Prior to Admission: Assistive Equipment Home Environment: Others in the home: spouse. Current Living Arrangements: home/apartment/condo. Accessibility Concerns:Per PT eval 06/18/2021: Patient lives with her spouse in a single level HC accessible home. There are stairs but pt reports she does not have to do them unless she wants to. No stairs to enter home, per pt. She is normally independent with use of rollator walker in side the home, except when she is actively undergoing treatment, then needing more assist and remaining largely inbed. Pt sleeps in hospital bed, and has bedside commode. Spouse works radio time buyer, so pt is alone muchof the day. He assists with dressing and morning meal.. Current DME: other (see comments) (Rollator) Home Address (listed) [address] [place] [id number] Social & Family Supports: All names listed below confirmed with patient as current and correct Extended Emergency Contact Information Primary Emergency Contact: Derek Pichardo Address: [address] [place] [address] [facility] Relation: Spouse Secondary Emergency Contact: [place] Relation: Parent Current Care Provided by: self, spouse/significant other Provides Primary Care For: no one Caregiver if needed: spouse Quality of Family relationships: helpful, supportive Community Resources being provided currently: homecare agency ([facility]) Behavioral Health History: Depression Substance Use/Abuse (listed) Social History Tobacco Use Smoking Status Former Smoker ??? Packs/day: 0.25 ??? Years: 0.00 ??? Pack years: 0.00 ??? Types: Cigarettes ??? Quit date: 06/2020 ??? Years since quittin.9 In the past year have you used an illegal drug or used a prescription medication for non-medical reaons?: No 0 No problems reported 1-2 Low level 3-5 Moderate level 6-8 Substantial level 9- 10 Severe level In the past year have you had 4 or more drinks a day containing alcohol?: No 0 to 7 points: Low risk 8 to 15 points: Medium risk 16 to 19 points: High risk 20 to 40 points: Addiction likely Other Pertinent/Service Specific Information: works; has VNA in the home with [facility] Health/Prescription Coverage: [employer] - SO BC/BS IS PRIME Primary Insurance: [employer] OOS Payor: [employer] OOS / Plan: [facility] OOS INDEMNITY / Product Type: *No Product type* / Secondary Insurance: MEDICARE Prescription Coverage: YES Preferred Pharmacy: [id number] - [place], [place] - [address] [facility] [address] [facility] [address] Status: Patient is a : No Primary Care Provider: DELROES Zaman [phone] Patient/Caregiver Goals of Treatment: SNF Potential Needs for Transition of Care: longterm Agency Referrals: Based on discussions with the multi-disciplinary healthcare team, the patient would benefit from SNFlevel of care at discharge. ?? I have spoken with the patient to discuss discharge planning needs. I have provided the [facility], Office of Care Management letter from the School Bus Attendant pertaining to rehab referrals. I have also provided a letter describing our affiliations within the [facility] and educatedthem about their right to choose where referrals are. ?? Provided patient with [facility] Star Quality Rating for SNF, LTAC and/or IRF hand out. ?? I reviewed the different levels of rehab including SNF, swing, acute and LTAC with the patient ?? The patient has been provided a list of facilities within their preferred geographic area. ?? I have requested that the patient provide at least three choices for referral. ?? The patient have requested referrals to: 1. [facility] (per pt she knows the solar applications development engineer and it's close to the patient's home) [address] [place] [address] ?? [phone] ?? 2. [facility] [address] [address] ?? [phone] ?? [address]. [facility] [address] [place] [address] P: [phone] F: [phone] ?? Expected date of discharge: 06/22/2021 Has patient received the COVID vaccine: Per pt - she had the Pfizer vaccines Per [facility] - EMS gave to her Dates: 03/29/2021 and 04/19/2021 Note routed to Interlibrary Loan Specialist who will communicate referrals to facilities and provide any required information. Transportation: no concerns Transportation Anticipated: family or friend will provide Spouse can drive her to rehab Concerns to be Addressed: discharge planning Assessment: Patient is admitted to Urology service for R lap nephroureterectomy, retroperitoneal lymph node dissection Plan: Follow for rehab placement - Team advised patient will need COVID test for discharge A member of the Care Management team will continue to monitor progress, follow for continuity of care and assist with transition of care planningCullen Bolden) MORTEZA Dolan RN/CM - Cellphone: [phone] Pager: [phone] Covering Service RN/CM Plan of Care - Nichelle Conti RN - 06/21/2021 6:04 AM EDT OUTCOME EVALUATION NOTE: OUTCOME SUMMARY: Pt A&Ox4, VSS on RA (3L NC overnight). Pt reporting BLE neuropathy and 2+ edema @ baseline, pt frequently mentioning home lasix. Pt intermittently manipulative with staff and argumentative. Pt refuses meds frequently, but then wants them an hour later. Pt pain adequately controlled with scheduled pain medications and PRN (see MAR). BG coverage provided as needed, pt frequently asking about long acting-insulin dosing. Abd lap sites YAS. Leach in place draining CYU. Last BM 06/20. Bed/chair alarm settings appropriate for patient. Call sampson in reach, sleeping between care, will continue to monitor and help patient reach d/c goals. PLAN MOVING FORWARD: Leach (stays in for 10 days post-op) BG monitoring Pain control Mobilize / PT/OT D/c planning INDIVIDUALIZED FALL PREVENTION: Patient is currently a high risk to Fall. Patient educated on bed/chair alarm, demonstrates proper use of call sampson and verbalizes understanding of fall preventions implemented. Patient-specific fall risk factors per assessment: [current deficits]: Lines/Drains, Pain, Medications, Hospital Environment. Assistance [level of assistance required for transfers and ambulation]: SBA Supervision [direct monitoring required during toileting and ADLs]: Hands on / Eyes on with ADL's Surveillance [continuous indirect monitoring]: Bed/chair alarm, Masimo, Purposeful Rounding, Nurse Knowledge Exchange Patient-specific fall prevention interventions for sensory deficits provided, if applicable: n/a Consult Note - Meera Mohr APRN - 06/17/2021 11:03 AM EDT Diabetes Management Team Inpatient Consult Date of Consultation: 06/17/2021 Consult Requested by: urology Reason for Consultation: Nancy Pichardo is a 66 y.o. female with PMH significant for T2 DM, HLD, HTN,CHF, PTSD, thrombophlebitis and renal carcinoma who was admitted on 06/16/2021 currently being treated for right laparoscopic nephroureterectomy . We are being consulted to assist with diabetes management and to provide a review of retirement diabetes care. Diabetes History: Nancy Pichardo has had diabetes for at least 15 years. I was unable to engage her in an interview, she refused to answer questions and perseverated on the horrible diabetes care she has received in every hospital she has been She does count carbs but does not use insulin to carb ratio. Current outpatient diabetes regimen: Diabetes Provider: Medications: tresiba 58 units q PM last dose unclear- Humalog not clear on doses it depends Monitoring ? Most recent HA1c per patient usually runs about 8.0% She had blood transfusion 2 weeks ago so today's Hgb A1C was falsely low Typical diet is: I eat properly! Typical exercise regimen is ? Trouble with hypoglycemia denies Current Weight 96 KG BMI 37 Diabetes Complications Status: Not reviewed On chart review just CKD Current Hospital Diabetes Care: Medications: Lispro resistant correction scale q 4 hrs Monitoring: q 4 hrs Diet: level 2 carb control ROS: deferred PMH Past Medical History: Diagnosis Date ??? Anemia [...] ??? Vertigo uses walker, has peripheral neuropathy Current Hospital Medications: ??? lidocaine 3 patch Transdermal Q24H And ??? lidocaine 1 patch Transdermal Q24H ??? metoprolol tartrate 12.5 mg Oral 2 times per day ??? pantoprazole EC 40 mg Oral Daily ? ? sucralfate 1 g Oral 4 Times Daily AC & HS ??? sodium chloride 0.9 % (flush) 5 mL Intravenous BID ??? docusate sodium 100 mg Oral BID ??? heparin (porcine) 5,000 Units Subcutaneous Q8H MO ??? polyethylene glycoL (MIRALAX) oral powder 17 g Oral Daily ??? acetaminophen 975 mg Oral Q6H MO ??? insulin lispro 2-12 Units Subcutaneous Q4H MO ??? insulin lispro 0-8 Units Subcutaneous TID WC Infusions: ??? sodium chloride 0.9% 100 mL/hr (06/17/21 0957) PRN: prochlorperazine, sodium chloride 0.9 % (flush), lidocaine, ondansetron OR ondansetron, bisacodyL, naloxone, HYDROmorphone OR HYDROmorphone OR HYDROmorphone, HYDROmorphone, glucose 40% oralgeL OR dextrose 10% OR glucagon Allergy: Allergies Allergen Reactions ??? Atorvastatin Calcium CIS - leg pain, CIS - leg pain, CIS - leg pain, CIS - leg pain, CIS - leg pain ??? Simvastatin CIS - leg pain, CIS - leg pain, CIS - leg pain, CIS - leg pain, CIS - leg pain ??? Loratadine Palpitations hyper ??? Sulfa (Sulfonamide Antibiotics) Social history: Social History Tobacco Use ??? Smoking status: Former Smoker Packs/day: 0.25 Years: 0.00 Pack years: 0.00 Types: Cigarettes Quit date: 06/2020 Years since quittin.9 ??? Smokeless tobacco: Never Used Vaping Use ??? Vaping Use: Every day Substance Use Topics ??? Alcohol use: Not Currently ??? Drug use: Never Family history: No family history on file. Vitals Last value Range last 24 hrs Temperature Temp: 37.1 ??C (98.8 ??F) Temp: [36.5 ??C (97.7 ??F)-37.1 ??C (98.8 ??F)] Heart Rate Heart Rate: 74 Heart Rate: [64-92] Blood Pressure BP: 132/52 BP: (110-178)/(50-80) Respiratory Rate Resp: 16 Resp: [13-18] SpO2 SpO2: 94 % SpO2: [89 %-97 %] Physical Exam: deferred Labs: Recent Labs 06/17/21114 WBC 22.7* HGB 8.9* HCT 28.4* PLATELET 207 NEUTROABS 20.55* Recent Labs 06/17/21 011 NA 140 K 5.1* CL 106 CO2 22 BUN 32* CREATININE 1.50* GLUCOSE 254* Recent Labs 06/17/21114 CALCIUM 8.4* No results for input(s): PROT, ALBUMIN, AST, ALT, ALKPHOS, BILITOT, BILIDIR in the last 168 hours. No results for input(s): INR, PT, PTT in the last 72 hours. No results for input(s): TROPONINT, CK in the last 168 hours. Recent Labs 06/17/21114 GLUCOSE 254* Assessment: Patient is a 66 y.o. years old female with PMH significant for DM T2 who was admitted on 06/16/2021 for right laparoscopic nephroureterectomy . Diabetes suboptimally controlled and currently complicatedby stress of surgery. Currently with variability of blood glucose levels while hospitalized requiring adjustment of insulin regimen and DM medications. We discussed using lantus and humalog as tiffanie is not on formulary, she reluctantly agreed Using 0.6 units of insulin / kg body weight based dose calculations she would require 60 units of insulin for her total daily dose, 30 units of basal and 30 units bolus. Higher weight-based insulin doses are associated with greater odds of hypoglycemia independent of insulin type. However, 0.6 units/kg seems to be a threshold below which the odds of hypoglycemia are relatively low Plan: 1. Lantus 30 units qd 2. Lispro moderate correction scale for BG>140 3. Meal-associated Lispro 0-8 units tid ac (or 1unit: 10 gm carb ratio for each meal) long-term diabetes care: Medications - Outpatient treatment regimen recommendations pending based on the hospital course. Monitoring - continue BG tid ac & hs Diet - low fat/low carb diet Exercise - weight-bearing exercise 30 min/day, as tolerated Thank you for allowing us to provide care for your patient Meera Mohr APRN Endocrinology Pager [phone] 70 minutes of this 80 minute visit was spent with the patient in counseling on diabetes and treatment plan, reviewing all glucose and insulin data as well as relevant laboratory results with the patient, and coordination of care on the inpatient unit Brief Op Note - Papa Jimenez MD - 06/16/2021 10:50 PM EDT Brief Operative Note Patient Name: Nancy Pichardo : [id number] MR#: [id number] Case Date: 06/16/2021 Surgeon: Surgeon(s) and Role: * Izabella Davis MD - Primary * Papa Jimenez MD - Resident * Tina Louise MD - Resident Preoperative diagnosis: 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 Postoperative diagnosis: T3N2M0 cancer Right renal pelvis sp chemotherapy Procedure(s) (LRB): @LAPAROSCOPY TOTAL NEPHROURETERECTOMY, ROBOTICS ASSIST (WRVU 25.36) (Right) MODIFIER ROBOT,DAVINCI XI (N/A) Anesthesia: General QL Block Findings: Lysis of adhesions Minor Veress needle injury to liver Small venotomy made in IVC repaired primarily 2 renal veins, 1 branching renal artery Uncomplicated right robotic-assisted laparoscopic nephroureterectomy; existing right ureteral stent removed with specimen Cystotomy closed in two layers and water-tight to 300cc Matted retroperitoneal fibrosis; para-caval and [id number] retroperitoneal lymph node dissection peformed Complications: None Estimated Blood Loss: 200 mL Specimens removed during surgery: * No orders in the log * Fluids: Intraprocedure Crystalloid Total Intake Lactated Ringers 2800.00 mL Total Intake 2800 mL Output Blood Loss 200 mL Total Output 200 mL Net Net Volume 2600 mL PRBCs: none (See Anesthesia Record/Report for Other Blood Products) Urine Output: (no urine output recorded) Drains: 16 Fr Leach catheter in bladder Disposition: awakened from anesthesia, extubated and taken to the recovery room in a stable condition, having suffered no apparent untoward event. Condition: doing well without problems (Please see the Surgical Encounter Summary for any Implant and Specimen details pertinent to this patient.) Infection Bundle used? 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 No Drains: * No LDAs found * Surgical Closure: Primary Closure - skin incision is completely closed without any wires, kailee, drains or other devices Disposition: awakened from anesthesia, extubated and taken to the recovery room in a stable condition, having suffered no apparent untoward event. Condition: doing well without problems (Please see the Surgical Encounter Summary for any Implant and Specimen details pertinent to this patient.) HPI/Surgical Indications: 66 year old with a Right upper tract UCC sp 4 cycles of neoadjuvant Summers Cisplat for a [id number] UCC with resoultion of the champ disease and no metastatic disease. She comes for a nephroureterectomy Procedure Description: After informed consent was obtained and adequate general endotracheal anesthesia induced.The patientwas placed in the modified flank position with the right side up. The adomen was prepped and drapped. A time out was performed. I Veress needle was place in the abdomen and confirmed to be intraperitoneal using the usual maneuvers. 4 robotic ports were placed under direct vision in the standard lnear configuration between the sternal notch and the Right anterior superior iliac spine. An additional subcostal 5 liver retractor port was placed. The Liver was mobilized and relfected superiorly, there was moderate inflammationand adherence, likely reflected her prior chemotherapy.. The colon and duodenum were reflected medially. The inferior vena cava was exposed from the bifurcation to the liver. The gonadal vein was clipped and divided. The h ilar dissection was difficult because of reaction from the response to chemotherapy. The artery was dissected out with difficulty and suture ligated. The renal vein was divided with the staple on the inferior vena cava. The vena cava was then mobilized meficall to expose the aorta and the para/retro and intra aorta caval nodes were dissected from the bifurcation to the liver, using a combination of cautery and clips. The renal artery was tripple clipped and divided. The nodes were taken enbloc with the kidney and adrenal. The adrenal vein and lumbar veins were divided with clips. The remaining attachments of the kdiney wer divided leaving the kidney attached by the ureter and gonadal vessels. The robot was undocled the patient rotated to the right and placed in Trendelenberg. The robot was redocked with a pelvic orientation. The ureter and gonadals were then dissected into the pelvis, dividing the remnants of the round ligament and the superior vesical vessels. The dissection was then taken down to the bladder on the ureter.The ureter was clipped. The bladder was opened and the ureter andureteral orifice were circumscribed and resected with the stent in situ. The bladder was closed in 3layers with a V-Lock. It was confirmed watertight with 250cc of saline via the leach. Hemostasis was assured. The specimen placed in a bag. The airseal port closed with a 0 vicryl sutureand the Voltari device. The robot undocked and ports removed under vision. A Right lower quadrent incision was mde and the specimen and stent (insitu) removed. The incision was closed in 2 layers with #1 Vicryl. The skin was closed with $-0 Moncryl. The patient tolerated the procedure well and was awakened from anaesthesia and transferred to the PACU in stable condition. Infection Bundle used? No Attestation: Case Date: 06/16/2021 - 06/17/2021 I was present and I participated during the entire procedure (does not need to include opening and closing). IZABELLA DAVIS MD 06/20/2021 documented in this encounter Plan of Treatment Upcoming Encounters Date Type Specialty Care Team Description 10/21/2022 Appointment Hematology and Oncology 10/21/2022 Hospital Encounter Radiology Adilene Link[address] [place] [address] ([place]wad[place] morataya) 10/21/2022 Appointment Radiology Adilene Link [address] [facility] [place], [place] [id number] ([place]wadwo morataya) 10/21/2022 Appointment Radiology Adilene Link[address] [place] [address] (Wo rk) 10/25/2022 Office Visit Hematology and Oncology Alberto Guy MD [facility] DR HEMATOLOGY/[place] [address] [address] [place] [address] 11/09/2022 Office Visit Urology Izabella Davis MD [facility] DR UROLOGY [place], [place] [address] (Wo rk) Scheduled Referrals Name Type Priority Associated Order Schedule Diagnoses Referral to Outpatient Referral Routine Malignant neoplasm Or dered: Nephrology of right renal 06/23/2021 pelvis CKD (chronic kidney disease), stage II documented as of this encounter Procedures Procedure Name Priority Date/Time Associated Diagnosis Comme nts POCT GLUCOSE Routine 06/24/2021 11:22 Results for this AM EDT procedure are i n the results section. POCT GLUCOSE Routine 06/24/2021 7:33 AM Results f or this EDT procedure are i n the results section. POCT GLUCOSE Routine 06/24/2021 4:22 AM Results f or this EDT procedure are i n the results section. HC VENIPUNCTURE Routine 06/24/2021 3:33 AM Result s for this EDT procedure are i n the results section. POCT GLUCOSE Routine 06/23/2021 11:35 Results for this PM EDT procedure are i n the results section. POCT GLUCOSE Routine 06/23/2021 8:33 PM Results f or this EDT procedure are i n the results section. POCT GLUCOSE Routine 06/23/2021 4:45 PM Results f or this EDT procedure are i n the results section. POCT GLUCOSE Routine 06/23/2021 11:46 Results for this AM EDT procedure are i n the results section. XR FLUORO CYSTOGRAM Routine 06/23/2021 10:56 Resu lts for this AM EDT procedure are i n the results section. POCT GLUCOSE Routine 06/23/2021 7:30 AM Results f or this EDT procedure are i n the results section. LAVENDER TUBE HOLD Routine 06/23/2021 4:58 AM Res ults for this EDT procedure are i n the results section. HC VENIPUNCTURE Routine 06/23/2021 4:58 AM Result s for this EDT procedure are i n the results section. POCT GLUCOSE Routine 06/23/2021 4:57 AM Results f or this EDT procedure are i n the results section. POCT GLUCOSE Routine 06/22/2021 11:24 Results for this PM EDT procedure are i n the results section. POCT GLUCOSE Routine 06/22/2021 8:03 PM Results f or this EDT procedure are i n the results section. POCT GLUCOSE Routine 06/22/2021 7:15 PM Results f or this EDT procedure are i n the results section. POCT GLUCOSE Routine 06/22/2021 4:42 PM Results f or this EDT procedure are i n the results section. POCT GLUCOSE Routine 06/22/2021 4:09 PM Results f or this EDT procedure are i n the results section. POCT GLUCOSE Routine 06/22/2021 3:41 PM Results f or this EDT procedure are i n the results section. POCT GLUCOSE Routine 06/22/2021 11:40 Results for this AM EDT procedure are i n the results section. POCT GLUCOSE Routine 06/22/2021 7:16 AM Results f or this EDT procedure are i n the results section. POCT GLUCOSE Routine 06/22/2021 4:34 AM Results f or this EDT procedure are i n the results section. HEMOGRAM Routine 06/22/2021 4:34 AM Results f or this EDT procedure are i n the results section. DIFFERENTIAL, Routine 06/22/2021 4:34 AM Results for this AUTOMATED EDT procedure are i n the results section. HC CBC,PLT & AUTO Routine 06/22/2021 4:34 AM DIFF EDT BASIC METABOLIC PANEL Routine 06/22/2021 4:34 AM Results for this (NON-FASTING) EDT procedure are in the results section. POCT GLUCOSE Routine 06/22/2021 12:28 Results for this AM EDT procedure are i n the results section. POCT GLUCOSE Routine 06/21/2021 9:46 PM Results f or this EDT procedure are i n the results section. POCT GLUCOSE Routine 06/21/2021 9:11 PM Results f or this EDT procedure are i n the results section. POCT GLUCOSE Routine 06/21/2021 4:40 PM Results f or this EDT procedure are i n the results section. POCT GLUCOSE Routine 06/21/2021 11:48 Results for this AM EDT procedure are i n the results section. RAPID COVID-19 PCR Routine 06/21/2021 11:10 Resul ts for this ([facility]) AM EDT procedure are in the results section. XR CHEST PA AND Routine 06/21/2021 10:22 Results for this LATERAL AM EDT procedure are i n the results section. HC VENIPUNCTURE Routine 06/21/2021 9:40 AM Result s for this EDT procedure are i n the results section. POCT GLUCOSE Routine 06/21/2021 9:32 AM Results f or this EDT procedure are i n the results section. HEMOGRAM STAT 06/21/2021 7:24 AM Results f or this EDT procedure are i n the results section. DIFFERENTIAL, STAT 06/21/2021 7:24 AM Results for this AUTOMATED EDT procedure are i n the results section. HC VENIPUNCTURE STAT 06/21/2021 7:24 AM EDT POCT GLUCOSE Routine 06/21/2021 6:25 AM Results f or this EDT procedure are i n the results section. POCT GLUCOSE Routine 06/21/2021 4:05 AM Results f or this EDT procedure are i n the results section. POCT GLUCOSE Routine 06/21/2021 12:12 Results for this AM EDT procedure are i n the results section. POCT GLUCOSE Routine 06/20/2021 8:06 PM Results f or this EDT procedure are i n the results section. POCT GLUCOSE Routine 06/20/2021 4:39 PM Results f or this EDT procedure are i n the results section. POCT GLUCOSE Routine 06/20/2021 1:14 PM Results f or this EDT procedure are i n the results section. HEMOGRAM Routine 06/20/2021 8:03 AM Results f or this EDT procedure are i n the results section. DIFFERENTIAL, Routine 06/20/2021 8:03 AM Results for this AUTOMATED EDT procedure are i n the results section. HC VENIPUNCTURE Routine 06/20/2021 8:03 AM EDT BASIC METABOLIC PANEL Routine 06/20/2021 8:03 AM Results for this (NON-FASTING) EDT procedure are in the results section. POCT GLUCOSE Routine 06/20/2021 7:30 AM Results f or this EDT procedure are i n the results section. POCT GLUCOSE Routine 06/20/2021 3:09 AM Results f or this EDT procedure are i n the results section. POCT GLUCOSE Routine 06/20/2021 12:53 Results for this AM EDT procedure are i n the results section. POCT GLUCOSE Routine 06/19/2021 8:28 PM Results f or this EDT procedure are i n the results section. POCT GLUCOSE Routine 06/19/2021 5:27 PM Results f or this EDT procedure are i n the results section. EKG 12-LEAD STAT 06/19/2021 3:21 PM Tachycardia Results f or this EDT procedure are i n the results section. POCT GLUCOSE Routine 06/19/2021 12:13 Results for this PM EDT procedure are i n the results section. POCT GLUCOSE Routine 06/19/2021 8:07 AM Results f or this EDT procedure are i n the results section. POCT GLUCOSE Routine 06/19/2021 4:00 AM Results f or this EDT procedure are i n the results section. POCT GLUCOSE Routine 06/18/2021 11:06 Results for this PM EDT procedure are i n the results section. HC VENIPUNCTURE STAT 06/18/2021 10:17 Results for this PM EDT procedure are i n the results section. POCT GLUCOSE Routine 06/18/2021 8:11 PM Results f or this EDT procedure are i n the results section. POCT GLUCOSE Routine 06/18/2021 6:30 PM Results f or this EDT procedure are i n the results section. BASIC METABOLIC PANEL Routine 06/18/2021 6:24 PM Results for this (NON-FASTING) EDT procedure are in the results section. POCT GLUCOSE Routine 06/18/2021 1:24 PM Results f or this EDT procedure are i n the results section. POCT GLUCOSE Routine 06/18/2021 8:22 AM Results f or this EDT procedure are i n the results section. HEMOGRAM Timed 06/18/2021 5:00 AM Results f or this EDT procedure are i n the results section. DIFFERENTIAL, Timed 06/18/2021 5:00 AM Results for this AUTOMATED EDT procedure are i n the results section. HC VENIPUNCTURE Timed 06/18/2021 5:00 AM EDT BASIC METABOLIC PANEL Timed 06/18/2021 5:00 AM Results for this (NON-FASTING) EDT procedure are in the results section. POCT GLUCOSE Routine 06/18/2021 3:09 AM Results f or this EDT procedure are i n the results section. POCT GLUCOSE Routine 06/17/2021 11:48 Results for this PM EDT procedure are i n the results section. POCT GLUCOSE Routine 06/17/2021 10:22 Results for this PM EDT procedure are i n the results section. POCT GLUCOSE Routine 06/17/2021 7:51 PM Results f or this EDT procedure are i n the results section. POCT GLUCOSE Routine 06/17/2021 6:08 PM Results f or this EDT procedure are i n the results section. POCT GLUCOSE Routine 06/17/2021 3:54 PM Results f or this EDT procedure are i n the results section. HC VENIPUNCTURE Timed 06/17/2021 2:06 PM Result s for this EDT procedure are i n the results section. LAVENDER TUBE HOLD Timed 06/17/2021 2:06 PM Res ults for this EDT procedure are i n the results section. EKG 12-LEAD Routine 06/17/2021 1:51 PM Tachycardia Results f or this EDT procedure are i n the results section. POCT GLUCOSE Routine 06/17/2021 1:35 PM Results f or this EDT procedure are i n the results section. POCT GLUCOSE Routine 06/17/2021 12:40 Results for this PM EDT procedure are i n the results section. POCT GLUCOSE Routine 06/17/2021 11:15 Results for this AM EDT procedure are i n the results section. POCT GLUCOSE Routine 06/17/2021 9:19 AM Results f or this EDT procedure are i n the results section. POCT GLUCOSE Routine 06/17/2021 7:54 AM Results f or this EDT procedure are i n the results section. POCT GLUCOSE Routine 06/17/2021 3:58 AM Results f or this EDT procedure are i n the results section. POCT GLUCOSE Routine 06/17/2021 1:59 AM Results f or this EDT procedure are i n the results section. SCAN, PERIPHERAL Timed 06/17/2021 1:15 AM Resul ts for this BLOOD EDT procedure are i n the results section. HEMOGRAM Timed 06/17/2021 1:15 AM Results f or this EDT procedure are i n the results section. DIFFERENTIAL, Timed 06/17/2021 1:15 AM Results for this AUTOMATED EDT procedure are i n the results section. HC CBC,PLT & AUTO Timed 06/17/2021 1:15 AM DIFF EDT HEMOGLOBIN A1C Timed 06/17/2021 1:15 AM Results for this EDT procedure are i n the results section. BASIC METABOLIC PANEL Timed 06/17/2021 1:15 AM Results for this (NON-FASTING) EDT procedure are in the results section. POCT GLUCOSE Routine 06/16/2021 11:01 Results for this PM EDT procedure are i n the results section. SURGICAL PATHOLOGY Routine 06/16/2021 10:52 Resul ts for this REPORT PM EDT procedure are i n the results section. SPECIMEN TO PATHOLOGY Routine 06/16/2021 10:52 Re sults for this PM EDT procedure are i n the results section. POCT GLUCOSE Routine 06/16/2021 9:43 PM Results f or this EDT procedure are i n the results section. POCT GLUCOSE Routine 06/16/2021 8:28 PM Results f or this EDT procedure are i n the results section. BLOOD GAS 2 ARTERIAL Routine 06/16/2021 5:52 PM R esults for this EDT procedure are i n the results section. MODIFIER 06/16/2021 4:10 PM Malignant neoplasm ROBOTBOAZ EDT of right renal pelvis @LAPAROSCOPY TOTAL 06/16/2021 4:10 PM Malignant neopla sm NEPHROURETERECTOMY, EDT of right renal ROBOTICS ASSIST (WRVU pelvis 25.36) POCT GLUCOSE Routine 06/16/2021 2:41 PM Results f or this EDT procedure are i n the results section. POCT GLUCOSE Routine 06/16/2021 2:01 PM Results f or this EDT procedure are i n the results section. POCT GLUCOSE Routine 06/16/2021 11:27 Results for this AM EDT procedure are i n the results section. LAPAROSCOPY TOTAL Routine 06/16/2021 11:06 Malignant neoplasm NEPHROURETERECTOMY, AM EDT of right renal ROBOTICS ASSIST pelvis TYPE AND SCREEN Routine 06/16/2021 10:35 Results for this VALIDITY AM EDT procedure are i n the results section. ABORH RECHECK STATUS Routine 06/16/2021 10:35 Res ults for this AM EDT procedure are i n the results section. HC VENIPUNCTURE Routine 06/16/2021 10:35 AM EDT ABO/RH TYPING Routine 06/16/2021 10:35 Results fo r this AM EDT procedure are i n the results section. ANTIBODY SCREEN Routine 06/16/2021 10:35 Results for this AM EDT procedure are i n the results section. documented in this encounter Results POCT Glucose (06/24/2021 11:22 AM EDT) athologist Signature POC Glucose 130 65 - [address] [facility] mg/dL [facility] Comment: Supplemental ranges: <140 mg/dL before meals <180 mg/dL all other times of the day Specimen Anatomical Collection Method Collection Time Receive d Time (Source) Location / / Volume Laterality Blood 06/24/2021 11:22 06/24/2021 AM EDT 11:22 AM EDT Izabella Davis MD POINT OF CARE TEST ORDERABLE S Performing Organization Address City/State/ZIP [place] [address] POCT Glucose (06/24/2021 7:33 AM EDT) athologist Signature POC Glucose 137 65 - [address] [facility] mg/dL [facility] Comment: Supplemental ranges: <140 mg/dL before meals <180 mg/dL all other times of the day Specimen Anatomical Collection Method Collection Time Receive d Time (Source) Location / / Volume Laterality Blood 06/24/2021 7:33 AM 7:33 EDT AM EDT Izabella Davis MD POINT OF CARE TEST ORDERABLE S Performing Organization Address City/State/ZIP Code Phon e Number [address] POCT Glucose (06/24/2021 4:22 AM EDT) athologist Signature POC Glucose 157 65 - 199 [facility] Comment: Supplemental ranges: <140 mg/dL before meals <180 mg/dL all other times of the day Specimen Anatomical Collection Method Collection Time Receive d Time (Source) Location / / Volume Laterality Blood 06/24/2021 4:22 AM 4:22 EDT AM EDT Izabella Davis MD POINT OF CARE TEST ORDERABLE S Performing Organization Address City/State/[place] [address] (ABNORMAL) Basic Metabolic Panel (non-fasting) (06/24/2021 3:33 AM EDT) athologist Signature Glucose Lvl 135 65 - [address] [facility] mg[facility]dL [facility] Comment: Diabetes: >=200 mg/dL plus symp toms BUN 36 (H) 8 - 18 mg/dL [facility] Creatinine 1.65 (H) 0.70 - 1.20 mg/dL [facility] Sodium 137 135 - 145 mmol/L [facility] Potassium 4.8 3.5 - 5.0 mmol/L [facility] Comment: Please note: ??Patients with WBC >100,00 0 may have falsely elevated Potassium levels. ??For accurate Potassium quantif ication in these patients send serum separator tube (gold top) for subsequent determinations. ??Contact the Clinical Chemistry Laboratory if there are any qu estions. Chloride 100 98 - 107 mmol/L [facility] CO2 27 22 - 31 mmol/L [facility] Anion Gap 10 5 - 15 mmol/L [facility] Calcium 9.1 8.5 - 10.5 mg/dL [facility] Estimated GFR 32 (L) >=60 mL/min/1.73 m?? [facility] Comment: This patient? s estimated glomerular filtration rate (eGFR) is between 32 mL/min/1.73 m2 (patients with less muscl e mass) and 37 mL/min/1.73 m2 (patients with more muscle mass) as determined by the CKD-EPI equation. Assessment of eGFR is not appropriate when creatinine concentrations are rapidly changing. For clinical decisions where creatinine clearance will affect therapy, a 24-hour urine creatinine clearance may b e advised. Assignment of CKD stage 1 - 5 for patien ts with an eGFR near the transition point between stages may be based on cli nical assessment of muscle mass and symptoms in addition to eGFR. Specimen Anatomical Collection Method Collection Time Receive d Time (Source) Location / / Volume Laterality Blood 06/24/2021 3:33 AM 3:50 EDT AM EDT Resulting Agency Comment Spec In Lab Izabella Davis MD CHEMISTRY ORDERABLES Performing Organization Address City/State/ZIP Code Phon e Number [address] POCT Glucose (06/23/2021 11:35 PM EDT) athologist Signature POC Glucose 84 65 - [address] [facility] mg/dL [facility] Comment: Supplemental ranges: <140 mg/dL before meals <180 mg/dL all other times of the day Specimen Anatomical Collection Method Collection Time Receive d Time (Source) Location / / Volume Laterality Blood 06/23/2021 11:35 06/23/2021 PM EDT 11:35 PM EDT Izabella Davis MD POINT OF CARE TEST ORDERABLE S Performing Organization Address City/State/[place] [address] POCT Glucose (06/23/2021 8:33 PM EDT) P athologist Signature POC Glucose 150 65 - [address] [facility] mg/dL [facility] Comment: Supplemental ranges: <140 mg/dL before meals <180 mg/dL all other times of the day Specimen Anatomical Collection Method Collection Time Receive d Time (Source) Location / / Volume Laterality Blood 06/23/2021 8:33 PM 8:33 EDT PM EDT Izabella Davis MD POINT OF CARE TEST ORDERABLE S Performing Organization Address City/State/ZIP Code Phon e Number [address] POCT Glucose (06/23/2021 4:45 PM EDT) athologist Signature POC Glucose 67 65 - 199 [place] mg/dL [facility] Comment: Supplemental ranges: <140 mg/dL before meals <180 mg/dL all other times of the day Specimen Anatomical Collection Method Collection Time Receive d Time (Source) Location / / Volume Laterality Blood 06/23/2021 4:45 PM 4:45 EDT PM EDT Izabella Davis MD POINT OF CARE TEST ORDERABLE S Performing Organization Address City/State/[place] [address] POCT Glucose (06/23/2021 11:46 AM EDT) athologist Signature POC Glucose 184 65 - 199 [place] mg/dL [facility] Comment: Supplemental ranges: <140 mg/dL before meals <180 mg/dL all other times of the day Specimen Anatomical Collection Method Collection Time Receive d Time (Source) Location / / Volume Laterality Blood 06/23/2021 11:46 06/23/2021 AM EDT 11:46 AM EDT Izabella Davis MD POINT OF CARE TEST ORDERABLE S Performing Organization Address City/State/[place] [address] XR Fluoro Cystogram (06/23/2021 10:56 AM EDT) Anatomical Region Laterality Modality N/A Radio Fluoroscopy Specimen (Source) Anatomical Location Collection Method / Collectio n Time Received Time / Laterality Volume Impressions 06/23/2021 2:01 PM EDT No evidence of bladder leak or reflux. I, Edison Barajas MD, was present for this entire procedure I have personally reviewed the image(s) and the resident's interpretation and agree with the findings, Edison Barajas MD at 06/23/2021 2:01 PM Thank you for letting us participate in the care of this patient. ??If you are a health care provider and have any questi ons regarding this report, please contact the number below. ??For patients who have questions please contact the health child care sitter that requested your imaging first. ? Narrative 06/23/2021 2:01 PM EDT EXAMINATION: XR FLUORO CYSTOGRAM CLINICAL HISTORY: 66-year-old female pos top day 7 status post right nephroU with bladder cuff repair - please assess for bladder leak TECHNIQUE: A pelvic supine reel fed printer radiograph was obt ained. Approximately 150 cc of Omnipaque 350 wa s slowly infused by gravity through the patient's pre-existing Leach catheter. F luoroscopic spot images of the bladder were obtained. Post-drainage fluoroscopi c spot images were also obtained. COMPARISON: CT abdomen/pelvis from 02/09/2021 FINDINGS: COIN DEALER: Fecal matter is seen in the partially vi sualized ascending colon. Gas is seen in the rectum. CYSTOGRAM: Contrast flowed easily via the Leach cat heter into the bladder. Bladder was filled to the point of patient discomfor t, 300ml. Bladder distended well without any filling defect defects and no contra st was visualized outside of the bladder. There is a small contour irregularity at the posterior aspect of the bladder seen on LPO, likely reflective of post-s urgical changes. Post-drainage radiograph with no contras t demonstrated outside the confines of the bladder. Procedure Note Edison Barajas MD - 06/23/2021Format ting of this note might be different from the original. EXAMINATION: XR FLUORO CYSTOGRAM CLINICAL HISTORY: 66-year-old female pos top day 7 status post right nephroU with bladder cuff repair - please assess for bladder leak TECHNIQUE: A pelvic supine reel fed printer radiograph was obt ained. Approximately 150 cc of Omnipaque 350 wa s slowly infused by gravity through the patient's pre-existing Leach catheter. F luoroscopic spot images of the bladder were obtained. Post-drainage fluoroscopi c spot images were also obtained. COMPARISON: CT abdomen/pelvis from 02/09/2021 FINDINGS: COIN DEALER: Fecal matter is seen in the partially vi sualized ascending colon. Gas is seen in the rectum. CYSTOGRAM: Contrast flowed easily via the Leach cat heter into the bladder. Bladder was filled to the point of patient discomfor t, 300ml. Bladder distended well without any filling defect defects and no contra st was visualized outside of the bladder. There is a small contour irregularity at the posterior aspect of the bladder seen on LPO, likely reflective of post-s urgical changes. Post-drainage radiograph with no contras t demonstrated outside the confines of the bladder. IMPRESSION No evidence of bladder leak or reflux. I, Edison Barajas MD, was present for this entire procedure I have personally reviewed the image(s) and the resident's interpretation and agree with the findings, Edison Barajas MD at 06/23/2021 2:01 PM Thank you for letting us participate in the care of this patient. If you are a health care provider and have any questi ons regarding this report, please contact the number below. For patients w ho have questions please contact the health child care sitter that requested your imaging first. Izabella Davis MD IMG FLUORO ORDERABLES POCT Glucose (06/23/2021 7:30 AM EDT) P athologist Signature POC Glucose 152 65 - [address] [facility] mg/dL [facility] Comment: Supplemental ranges: <140 mg/dL before meals <180 mg/dL all other times of the day Specimen Anatomical Collection Method Collection Time Receive d Time (Source) Location / / Volume Laterality Blood 06/23/2021 7:30 AM 7:30 EDT AM EDT Izabella Davis MD POINT OF CARE TEST ORDERABLE S Performing Organization Address City/State/ZIP Code Phon e Number [address] Lavender Tube HOLD (06/23/2021 4:58 AM EDT) Patholo gist Method Time Signature Lavender Hold Sample in [facility] LABORATORY Specimen Anatomical Collection Method Collection Time Receive d Time (Source) Location / / Volume Laterality Blood Venous Draw / 06/23/2021 4:58 AM 06/23/20 5:38 Unknown EDT AM EDT Bonilla Mckeon MD HEMATOLOGY ORDERABLES Performing Organization Address City/State/[place] [address] (ABNORMAL) Basic Metabolic Panel (non-fasting) (06/23/2021 4:58 AM EDT) P athologist Signature Glucose Lvl 108 65 - [address] [facility] mg/dL [facility] Comment: Diabetes: >=200 mg/dL plus symp toms BUN 38 (H) 8 - 18 mg/dL [facility] Creatinine 1.55 (H) 0.70 - 1.20 mg/dL [facility] Sodium 138 135 - 145 mmol/L [facility] Potassium 5.2 (H) 3.5 - 5.0 mmol/L [facility] Comment: Please note: ??Patients with WBC >100,00 0 may have falsely elevated Potassium levels. ??For accurate Potassium quantif ication in these patients send serum separator tube (gold top) for subsequent determinations. ??Contact the Clinical Chemistry Laboratory if there are any qu estions. Chloride 104 98 - 107 mmol/L [facility] CO2 25 22 - 31 mmol/L [facility] Anion Gap 9 5 - 15 mmol/L [facility] Calcium 9.2 8.5 - 10.5 mg/dL [facility] Estimated GFR 34 (L) >=60 mL/min/1.73 m?? [facility] Comment: This patient? s estimated glomerular filtration rate (eGFR) is between 34 mL/min/1.73 m2 (patients with less muscl e mass) and 40 mL/min/1.73 m2 (patients with more muscle mass) as determined by the CKD-EPI equation. Assessment of eGFR is not appropriate when creatinine concentrations are rapidly changing. For clinical decisions where creatinine clearance will affect therapy, a 24-hour urine creatinine clearance may b e advised. Assignment of CKD stage 1 - 5 for patien ts with an eGFR near the transition point between stages may be based on cli nical assessment of muscle mass and symptoms in addition to eGFR. Specimen Anatomical Collection Method Collection Time Receive d Time (Source) Location / / Volume Laterality Blood 06/23/2021 4:58 AM 5:38 EDT AM EDT Resulting Agency Comment Spec In Lab Izabella Davis MD CHEMISTRY ORDERABLES Performing Organization Address City/State/[place] [address] POCT Glucose (06/23/2021 4:57 AM EDT) athologist Signature POC Glucose 117 65 - [address] [facility] mg/dL [facility] Comment: Supplemental ranges: <140 mg/dL before meals <180 mg/dL all other times of the day Specimen Anatomical Collection Method Collection Time Receive d Time (Source) Location / / Volume Laterality Blood 06/23/2021 4:57 AM 4:57 EDT AM EDT Izabella Davis MD POINT OF CARE TEST ORDERABLE S Performing Organization Address City/State/[place] [address] POCT Glucose (06/22/2021 11:24 PM EDT) P athologist Signature POC Glucose 150 65 - [address] [facility] mg/dL [facility] Comment: Supplemental ranges: <140 mg/dL before meals <180 mg/dL all other times of the day Specimen Anatomical Collection Method Collection Time Receive d Time (Source) Location / / Volume Laterality Blood 06/22/2021 11:24 06/22/2021 PM EDT 11:24 PM EDT Izabella Davis MD POINT OF CARE TEST ORDERABLE S Performing Organization Address City/State/[place] [address] POCT Glucose (06/22/2021 8:03 PM EDT) athologist Signature POC Glucose 109 65 - 199 [place] mg/dL [facility] Comment: Supplemental ranges: <140 mg/dL before meals <180 mg/dL all other times of the day Specimen Anatomical Collection Method Collection Time Receive d Time (Source) Location / / Volume Laterality Blood 06/22/2021 8:03 PM 8:03 EDT PM EDT Izabella Davis MD POINT OF CARE TEST ORDERABLE S Performing Organization Address City/State/[place] [address] POCT Glucose (06/22/2021 7:15 PM EDT) athologist Signature POC Glucose 80 65 - 199 [place] mg/dL [facility] Comment: Supplemental ranges: <140 mg/dL before meals <180 mg/dL all other times of the day Specimen Anatomical Collection Method Collection Time Receive d Time (Source) Location / / Volume Laterality Blood 06/22/2021 7:15 PM 7:15 EDT PM EDT Izabella Davis MD POINT OF CARE TEST ORDERABLE S Performing Organization Address City/State/ZIP Code Phon e Number [address] POCT Glucose (06/22/2021 4:42 PM EDT) athologist Signature POC Glucose 120 65 - 199 [place] mg/dL [facility] Comment: Supplemental ranges: <140 mg/dL before meals <180 mg/dL all other times of the day Specimen Anatomical Collection Method Collection Time Receive d Time (Source) Location / / Volume Laterality Blood 06/22/2021 4:42 PM 1 4:42 EDT PM EDT Izabella Davis MD POINT OF CARE TEST ORDERABLE S Performing Organization Address City/State/ZIP Code Phon e Number [address] POCT Glucose (06/22/2021 4:09 PM EDT) athologist Signature POC Glucose 140 65 - 199 [place] mg/dL [facility] Comment: Supplemental ranges: <140 mg/dL before meals <180 mg/dL all other times of the day Specimen Anatomical Collection Method Collection Time Receive d Time (Source) Location / / Volume Laterality Blood 06/22/2021 4:09 PM 1 4:09 EDT PM EDT Izabella Davis MD POINT OF CARE TEST ORDERABLE S Performing Organization Address City/State/[place] [address] POCT Glucose (06/22/2021 3:41 PM EDT) athologist Signature POC Glucose 114 65 - 199 [place] mg/dL [facility] Comment: Supplemental ranges: <140 mg/dL before meals <180 mg/dL all other times of the day Specimen Anatomical Collection Method Collection Time Receive d Time (Source) Location / / Volume Laterality Blood 06/22/2021 3:41 PM 1 3:41 EDT PM EDT Izabella Davis MD POINT OF CARE TEST ORDERABLE S Performing Organization Address City/State/[place] [address] POCT Glucose (06/22/2021 11:40 AM EDT) athologist Signature POC Glucose 123 65 - 199 [facility] mg/dL [facility] Comment: Supplemental ranges: <140 mg/dL before meals <180 mg/dL all other times of the day Specimen Anatomical Collection Method Collection Time Receive d Time (Source) Location / / Volume Laterality Blood 06/22/2021 11:40 06/22/2021 AM EDT 11:40 AM EDT Izabella Davis MD POINT OF CARE TEST ORDERABLE S Performing Organization Address City/State/ZIP Code Phon e Number [address] POCT Glucose (06/22/2021 7:16 AM EDT) P athologist Signature POC Glucose 108 65 - 199 [facility] Comment: Supplemental ranges: <140 mg/dL before meals <180 mg/dL all other times of the day Specimen Anatomical Collection Method Collection Time Receive d Time (Source) Location / / Volume Laterality Blood 06/22/2021 7:16 AM 7:16 EDT AM EDT Izabella Davis MD POINT OF CARE TEST ORDERABLE S Performing Organization Address City/[facility]/ZIP Code Phon e Number [address] POCT Glucose (06/22/2021 4:34 AM EDT) P athologist Signature POC Glucose 95 65 - 199 [facility] Comment: Supplemental ranges: <140 mg/dL before meals <180 mg/dL all other times of the day Specimen Anatomical Collection Method Collection Time Receive d Time (Source) Location / / Volume Laterality Blood 06/22/2021 4:34 AM 4:34 EDT AM EDT Izabella Davis MD POINT OF CARE TEST ORDERABLE S Performing Organization Address City/[facility]/ZIP Code Phon e Number [address] (ABNORMAL) Differential, Automated (06/22/2021 4:34 AM EDT) [facility] gist Method Time Signature Neutrophils % 71.8 % [facility] Neutr Abs (ANC) 9.21 (H) 1.70 - [facility] 6.10 [facility] x10(3)/[facility] L LABORATORY Lymphocytes % 9.7 % [facility] Lymphocytes Abs 1.2 0.9 - 3.[address] [facility] x10(3)/[facility] LABORATORY Monocytes % 7.5 % [facility] Monocyte Abs 1.0 (H) 0.3 - 0.[address] [facility] x10(3)/[facility] LABORATORY Eosinophils % 9.3 % [facility] Eosinophils Abs 1.2 (H) 0.0 - 0.[address] [facility] x10(3)/[facility] LABORATORY Basophils % 0.6 % [facility] Basophils Abs 0.1 0.0 - 0.[address] [facility] x10(3)/[facility] LABORATORY Immature Gran % 1.10 % [facility] Comment: Immature granulocytes(IG's)percentage an d absolute count will include metamyelocytes, myelocytes, and promyelo cytes. Blood smears from CBCs yielding IG's will be scanned manually for concor dance. If this scan disagrees with the automated IG or if promyelocytes are not ed, a manual differential will be performed. [place] Gran Abs 0.14 (H) 0.00 - 0.04 x10(3)/[facility] LABORATORY Specimen Anatomical Collection Method Collection Time Receive d Time (Source) Location / / Volume Laterality Blood 06/22/2021 4:34 AM 4:49 EDT AM EDT Resulting Agency Comment Spec In Lab Bonilla Mckeon MD HEMATOLOGY ORDERABLES Performing Organization Address City/State/ZIP [place] [address] (ABNORMAL) Hemogram (06/22/2021 4:34 AM EDT) Analysis Performed At Patho logist Time Signature WBC 12.8 (H) 4.0 - 9.[address] [facility] x10(3)/[facility] LABORATORY RBC 2.64 (L) 4.00 - [facility] 5.21 [facility] x10(6)/[facility] LABORATORY Hemoglobin 7.7 (L) 11.7 - [facility] 15.5 gm/dL [facility] Hematocrit 24.3 (L) 35.7 - [facility] 45.8 % [facility] MCV 92.0 82.6 - [facility] 94.4 [facility] LABORATORY MCH 29.2 27.1 - [place] 32.0 pg [facility] MCHC 31.7 31.7 - [facility] 35.0 gm/dL [facility] Platelets 238 145 - [address] [facility] x10(3)/[facility] LABORATORY RDWSD 50.2 (H) 37.0 - [facility] ISELA 46.0 [facility] LABORATORY RDWCV 14.9 (H) 11.5 - [facility] ISELA 14.1 % [facility] MPV 10.7 7.6 - 12.9 [facility] LABORATORY nRBC % Auto 0.0 % [facility] nRBC Abs Auto 0.000 0.000 - [facility] 0.000 [facility] x10(3)/[facility] LABORATORY Specimen Anatomical Collection Method Collection Time Receive d Time (Source) Location / / Volume Laterality Blood 06/22/2021 4:34 AM 4:49 EDT AM EDT Resulting Agency Comment Spec In Lab Bonilla Mckeon MD HEMATOLOGY ORDERABLES Performing Organization Address City/State/ZIP [place] [address] (ABNORMAL) Basic Metabolic Panel (non-fasting) (06/22/2021 4:34 AM EDT) P athologist Signature Glucose Lvl 88 65 - [address] [facility] mg/dL [facility] Comment: Diabetes: >=200 mg/dL plus symp toms BUN 34 (H) 8 - 18 mg/dL [facility] Creatinine 1.59 (H) 0.70 - 1.20 mg/dL [facility] Sodium 138 135 - 145 mmol/L [facility] Potassium 5.0 3.5 - 5.0 mmol/L [facility] Comment: Please note: ??Patients with WBC >100,00 0 may have falsely elevated Potassium levels. ??For accurate Potassium quantif ication in these patients send serum separator tube (gold top) for subsequent determinations. ??Contact the Clinical Chemistry Laboratory if there are any qu estions. Chloride 105 98 - 107 mmol/L [facility] CO2 24 22 - 31 mmol/L [facility] Anion Gap 9 5 - 15 mmol/L [facility] Calcium 9.2 8.5 - 10.5 mg/dL [facility] Estimated GFR 33 (L) >=60 mL/min/1.73 m?? [facility] Comment: This patient? s estimated glomerular filtration rate (eGFR) is between 33 mL/min/1.73 m2 (patients with less muscl e mass) and 39 mL/min/1.73 m2 (patients with more muscle mass) as determined by the CKD-EPI equation. Assessment of eGFR is not appropriate when creatinine concentrations are rapidly changing. For clinical decisions where creatinine clearance will affect therapy, a 24-hour urine creatinine clearance may b e advised. Assignment of CKD stage 1 - 5 for patien ts with an eGFR near the transition point between stages may be based on cli nical assessment of muscle mass and symptoms in addition to eGFR. Specimen Anatomical Collection Method Collection Time Receive d Time (Source) Location / / Volume Laterality Blood 06/22/2021 4:34 AM 4:49 EDT AM EDT Resulting Agency Comment Spec In Lab Izabella Davis MD CHEMISTRY ORDERABLES Performing Organization Address City/State/ZIP Code Phon e Number [address] POCT Glucose (06/22/2021 12:28 AM EDT) P athologist Signature POC Glucose 182 65 - [address] [facility] mg/dL [facility] Comment: Supplemental ranges: <140 mg/dL before meals <180 mg/dL all other times of the day Specimen Anatomical Collection Method Collection Time Receive d Time (Source) Location / / Volume Laterality Blood 06/22/2021 12:28 06/22/2021 AM EDT 12:28 AM EDT Izabella Davis MD POINT OF CARE TEST ORDERABLE S Performing Organization Address City/State/[place] [address] POCT Glucose (06/21/2021 9:46 PM EDT) athologist Signature POC Glucose 89 65 - 199 [place] [place] mg/dL [facility] Comment: Supplemental ranges: <140 mg/dL before meals <180 mg/dL all other times of the day Specimen Anatomical Collection Method Collection Time Receive d Time (Source) Location / / Volume Laterality Blood 06/21/2021 9:46 PM 9:46 EDT PM EDT Izabella Davis MD POINT OF CARE TEST ORDERABLE S Performing Organization Address City/State/ZIP Code Phon e Number [address] POCT Glucose (06/21/2021 9:11 PM EDT) athologist Signature POC Glucose 77 65 - 199 [place] mg/dL [facility] [facility] Comment: Supplemental ranges: <140 mg/dL before meals <180 mg/dL all other times of the day Specimen Anatomical Collection Method Collection Time Receive d Time (Source) Location / / Volume Laterality Blood 06/21/2021 9:11 PM 9:11 EDT PM EDT Izabella Davis MD POINT OF CARE TEST ORDERABLE S Performing Organization Address City/State/ZIP Code Phon e Number [address] POCT Glucose (06/21/2021 4:40 PM EDT) athologist Signature POC Glucose 97 65 - 199 [place] mg/dL [facility] Comment: Supplemental ranges: <140 mg/dL before meals <180 mg/dL all other times of the day Specimen Anatomical Collection Method Collection Time Receive d Time (Source) Location / / Volume Laterality Blood 06/21/2021 4:40 PM 4:40 EDT PM EDT Izabella Davis MD POINT OF CARE TEST ORDERABLE S Performing Organization Address City/State/ZIP Code Phon e Number [address] POCT Glucose (06/21/2021 11:48 AM EDT) P athologist Signature POC Glucose 95 65 - [address] [facility] Comment: Supplemental ranges: <140 mg/dL before meals <180 mg/dL all other times of the day Specimen Anatomical Collection Method Collection Time Receive d Time (Source) Location / / Volume Laterality Blood 06/21/2021 11:48 06/21/2021 AM EDT 11:48 AM EDT Izabella Davis MD POINT OF CARE TEST ORDERABLE S Performing Organization Address City/State/Z[place] [address] COVID-19 PCR (06/21/2021 11:10 AM EDT) Patholo gist Method Time Signature SARS-CoV-2 Not Detected Not Detected [facility] RNA PCR [facility] Comment: This result should be interpreted in com bination with the clinical observations, patient history and epidem iological information. For testing of asymptomatic individuals, assay performa nce characteristics and clinical utility have not been evaluated. Testing for SARS-CoV-2 (Severe acute respiratory syndrome coronavirus 2, form erly known as 2019 novel coronavirus or 2019-nCoV) to aid in the diagnosis of CO VID-19 is performed using the Simplexa COVID-19 Direct Assay by [employer] prakash as authorized by the FDA issued Emergency Use Authorization (EUA). This assay is intended for In-vitro Diagnostic (IVD) use with nasopharyngeal swabs collected from individuals meeting the CDC criteria for testing. Th e assay is performed based on the instructions for use and additional guid ance provided by the FDA. Testing is performed in the Microbiology Laboratory within the Department of Pathology and Laboratory Medicine at [facility], certified under the Clinical Laboratory Improvement Amendmen ts of 1988 (CLIA), 42 U.S.C. section 263a, to perform high complexity tests. Assay performance has been verified according to clinical laboratory regulat ory requirements. Test results are provided above. A resul t of Not Detected indicates that the viral RNA target is not present but does not preclude SARS-CoV-2 infection. False negative results may occur if a sp ecimen is improperly collected, transported or handled; if amplification inhibitors are present; or if inadequate numbers of viral particles ar e present in the specimen. A result of Detected suggests a current or recent infection and the patient is presumed to be infected. Positive and negative pr edictive values for this test are highly dependent on disease prevalence. A result of Invalid indicates the inability to conclusively determine the presence or absence of SARS-CoV-2 RNA in the sample which can be due to a vari ety of factors. Recollection is recommended in the case of an invalid re sult. CDC COVID-19 criteria for testing on hum an specimens and clinical management guidance information are available at th e CDC Coronavirus Disease 2019 (COVID-19) webpage under Information fo r Healthcare Professionals (https://www.cdc.gov/coronavirus/2019-nc ov/hcp/index.html). Additional information about this and ot her EUA tests can be found in provider and patient fact sheets at the following FDA website: https://www.fda.gov/medical-devices/ktyqgiqcmlo-pttrvlw-8560-xrohw-85-ddgykwnvb- wmz-tzvdgatpwzrkkg-votlpot-devices/ovgvs-svvxbocjdbp-ymxn SARS-CoV-2 Source [employer] Swab [facility] Specimen (Source) Anatomical Collection Method Collection Time Re ceived Time Location / / Volume Laterality Nasopharyngeal Swab 06/21/2021 11:10 05/28 AM EDT 2:12 PM EDT Comment: For admission to rehab after di scharge. Resulting Agency Comment Spec In Lab Izabella Davis MD MICROBIOLOGY - GENERAL ORDER PAULINO Performing Organization Address City/State/ZIP [place] [address] XR Chest PA & Lateral (Generic) (06/21/2021 10:22 AM EDT) Anatomical Region Laterality Modality Chest N/A Digital Radiography Specimen (Source) Anatomical Location Collection Method / Collectio n Time Received Time / Laterality Volume Impressions 06/21/2021 11:57 AM EDT Bilateral pleural effusions without evidence of overt pulmonary edema. I have personally reviewed the image(s) and the resident's interpretation and agree with the findings, Michelle Edmond MD at 06/21/2021 11:57 AM Thank you for letting us participate in the care of this patient. ??If you are a health care provider and have any questi ons regarding this report, please contact the number below. ??For patients who have questions please contact the health child care sitter that requested your imaging first. ? Narrative 06/21/2021 11:57 AM EDT EXAMINATION: XR CHEST PA AND LATERAL (GENERIC) CLINICAL HISTORY: persistent O2 requirem ent post-op TECHNIQUE: AP and lateral views of the chest COMPARISON: CT 03/19/2021 FINDINGS: Blunting of the bilateral costophrenic a ngles with elevation of the right hemidiaphragm and layering of fluid in t he right horizontal fissure. The upper lungs are clear. Small amount of free ai r below the right hemidiaphragm consistent with postoperative changes. U nchanged cardiomegaly. No acute osseous abnormalities. Procedure Note Michelle Ford MD - 2020 EXAMINATION: XR CHEST PA AND LATERAL (GE NERIC) CLINICAL HISTORY: persistent O2 requirem ent post-op TECHNIQUE: AP and lateral views of the chest COMPARISON: CT 03/19/2021 FINDINGS: Blunting of the bilateral costophrenic a ngles with elevation of the right hemidiaphragm and layering of fluid in t he right horizontal fissure. The upper lungs are clear. Small amount of free ai r below the right hemidiaphragm consistent with postoperative changes. U nchanged cardiomegaly. No acute osseous abnormalities. IMPRESSION Bilateral pleural effusions without evid ence of overt pulmonary edema. I have personally reviewed the image(s) and the resident's interpretation and agree with the findings, Michelle Edmond MD at 06/21/2021 11:57 AM Thank you for letting us participate in the care of this patient. If you are a health care provider and have any questi ons regarding this report, please contact the number below. For patients w ho have questions please contact the health child care sitter that requested your imaging first. Izabella Davis MD IMG DX ORDERABLES (ABNORMAL) Basic Metabolic Panel (non-fasting) (06/21/2021 9:40 AM EDT) athologist Signature Glucose Lvl 140 65 - [address] [facility] mg/dL [facility] Comment: Diabetes: >=200 mg/dL plus symp toms BUN 36 (H) 8 - 18 mg/dL [facility] Creatinine 1.59 (H) 0.70 - 1.20 mg/dL [facility] Sodium 134 (L) 135 - 145 mmol/L [facility] Potassium 4.7 3.5 - 5.0 mmol/L [facility] Comment: Please note: ??Patients with WBC >100,00 0 may have falsely elevated Potassium levels. ??For accurate Potassium quantif ication in these patients send serum separator tube (gold top) for subsequent determinations. ??Contact the Clinical Chemistry Laboratory if there are any qu estions. Chloride 102 98 - 107 mmol/L [facility] CO2 23 22 - 31 mmol/L [facility] Anion Gap 9 5 - 15 mmol/L [facility] Calcium 9.3 8.5 - 10.5 mg/dL [facility] Estimated GFR 33 (L) >=60 mL/min/1.73 m?? [facility] Comment: This patient? s estimated glomerular filtration rate (eGFR) is between 33 mL/min/1.73 m2 (patients with less muscl e mass) and 39 mL/min/1.73 m2 (patients with more muscle mass) as determined by the CKD-EPI equation. Assessment of eGFR is not appropriate when creatinine concentrations are rapidly changing. For clinical decisions where creatinine clearance will affect therapy, a 24-hour urine creatinine clearance may b e advised. Assignment of CKD stage 1 - 5 for patien ts with an eGFR near the transition point between stages may be based on cli nical assessment of muscle mass and symptoms in addition to eGFR. Specimen Anatomical Collection Method Collection Time Receive d Time (Source) Location / / Volume Laterality Blood 06/21/2021 9:40 AM 9:46 EDT AM EDT Resulting Agency Comment Spec In Lab Izabella Davis MD CHEMISTRY ORDERABLES Performing Organization Address City/State/[place] [address] POCT Glucose (06/21/2021 9:32 AM EDT) P athologist Signature POC Glucose 160 65 - [address] [facility] mg/dL [facility] Comment: Supplemental ranges: <140 mg/dL before meals <180 mg/dL all other times of the day Specimen Anatomical Collection Method Collection Time Receive d Time (Source) Location / / Volume Laterality Blood 06/21/2021 9:32 AM 9:32 EDT AM EDT Izabella Davis MD POINT OF CARE TEST ORDERABLE S Performing Organization Address City/State/[place] [address] (ABNORMAL) Differential, Automated (06/21/2021 7:24 AM EDT) Patholo gist Method Time Signature Neutrophils % 77.4 % [facility] Neutr Abs (ANC) 11.85 (H) 1.70 - [facility] 6.10 [facility] x10(3)/[facility] L LABORATORY Lymphocytes % 6.0 % [facility] Lymphocytes Abs 0.9 0.9 - 3.[address] [facility] x10(3)/[facility] LABORATORY Monocytes % 6.7 % [facility] Monocyte Abs 1.0 (H) 0.3 - 0.[address] [facility] x10(3)/[facility] LABORATORY Eosinophils % 8.0 % [facility] Eosinophils Abs 1.2 (H) 0.0 - 0.[address] [facility] x10(3)/[facility] LABORATORY Basophils % 0.9 % [facility] Basophils Abs 0.1 0.0 - 0.[address] [facility] x10(3)/[facility] LABORATORY Immature Gran % 1.00 % [facility] Comment: Immature granulocytes(IG's)percentage an d absolute count will include metamyelocytes, myelocytes, and promyelo cytes. Blood smears from CBCs yielding IG's will be scanned manually for concor dance. If this scan disagrees with the automated IG or if promyelocytes are not ed, a manual differential will be performed. [place] Gran Abs 0.16 (H) 0.00 - 0.04 x10(3)/[facility] LABORATORY Specimen Anatomical Collection Method Collection Time Receive d Time (Source) Location / / Volume Laterality Blood 06/21/2021 7:24 AM 7:31 EDT AM EDT Resulting Agency Comment Spec In Lab Papa Jimenez MD HEMATOLOGY ORDERABLES Performing Organization Address City/State/Z[place] [address] (ABNORMAL) Hemogram (06/21/2021 7:24 AM EDT) Analysis Performed At Patho logist Time Signature WBC 15.3 (H) 4.0 - 9.[address] [facility] x10(3)/[facility] LABORATORY RBC 2.85 (L) 4.00 - [facility] 5.21 [facility] x10(6)/[facility] LABORATORY Hemoglobin 8.3 (L) 11.7 - [facility] 15.5 gm/dL [facility] Hematocrit 26.9 (L) 35.7 - [facility] 45.8 % [facility] MCV 94.4 82.6 - [facility] 94.4 fL [facility] MCH 29.1 27.1 - [facility] 32.0 pg [facility] MCHC 30.9 (L) 31.7 - [facility] MTZ 35.0 gm/dL [facility] Platelets 214 145 - 357 [facility] ISELA x10(3)/[facility] LABORATORY RDWSD 51.0 (H) 37.0 - [facility] MTZ 46.0 [facility] LABORATORY RDWCV 14.6 (H) 11.5 - [facility] ISELA 14.1 % [facility] MPV 11.2 7.6 - 12.9 [facility] MTZ [facility] LABORATORY nRBC % Auto 0.0 % [facility] nRBC Abs Auto 0.000 0.000 - [place] [facility]Z 0.000 [facility] x10(3)/[facility] LABORATORY Specimen Anatomical Collection Method Collection Time Receive d Time (Source) Location / / Volume Laterality Blood 06/21/2021 7:24 AM 7:31 EDT AM EDT Resulting Agency Comment Spec In Lab Papa Jimenez MD HEMATOLOGY ORDERABLES Performing Organization Address City/State/ZIP Code Phon e Number [address] POCT Glucose (06/21/2021 6:25 AM EDT) athologist Signature POC Glucose 165 65 - 199 [place] mg/dL [facility] Comment: Supplemental ranges: <140 mg/dL before meals <180 mg/dL all other times of the day Specimen Anatomical Collection Method Collection Time Receive d Time (Source) Location / / Volume Laterality Blood 06/21/2021 6:25 AM 6:25 EDT AM EDT Izabella Davis MD POINT OF CARE TEST ORDERABLE S Performing Organization Address City/State/ZIP Code Phon e Number [address] POCT Glucose (06/21/2021 4:05 AM EDT) P athologist Signature POC Glucose 117 65 - 199 [place] mg/dL [facility] Comment: Supplemental ranges: <140 mg/dL before meals <180 mg/dL all other times of the day Specimen Anatomical Collection Method Collection Time Receive d Time (Source) Location / / Volume Laterality Blood 06/21/2021 4:05 AM 1 4:05 EDT AM EDT Izabella Davis MD POINT OF CARE TEST ORDERABLE S Performing Organization Address City/State/ZIP Code Phon e Number [address] POCT Glucose (06/21/2021 12:12 AM EDT) athologist Signature POC Glucose 145 65 - 199 [place] mg/dL [facility] Comment: Supplemental ranges: <140 mg/dL before meals <180 mg/dL all other times of the day Specimen Anatomical Collection Method Collection Time Receive d Time (Source) Location / / Volume Laterality Blood 06/21/2021 12:12 06/21/2021 AM EDT 12:12 AM EDT Izabella Davis MD POINT OF CARE TEST ORDERABLE S Performing Organization Address City/State/[place] [address] POCT Glucose (06/20/2021 8:06 PM EDT) athologist Signature POC Glucose 170 65 - 199 [place] mg/dL [facility] Comment: Supplemental ranges: <140 mg/dL before meals <180 mg/dL all other times of the day Specimen Anatomical Collection Method Collection Time Receive d Time (Source) Location / / Volume Laterality Blood 06/20/2021 8:06 PM 1 8:06 EDT PM EDT Izabella Davis MD POINT OF CARE TEST ORDERABLE S Performing Organization Address City/State/[place] [address] POCT Glucose (06/20/2021 4:39 PM EDT) P athologist Signature POC Glucose 195 65 - 199 [place] mg/dL [facility] Comment: Supplemental ranges: <140 mg/dL before meals <180 mg/dL all other times of the day Specimen Anatomical Collection Method Collection Time Receive d Time (Source) Location / / Volume Laterality Blood 06/20/2021 4:39 PM 1 4:39 EDT PM EDT Izabella Davis MD POINT OF CARE TEST ORDERABLE S Performing Organization Address City/State/ZIP Code Phon e Number [place] [phone] POCT Glucose (06/20/2021 1:14 PM EDT) P athologist Signature POC Glucose 142 65 - 199 [facility] Comment: Supplemental ranges: <140 mg/dL before meals <180 mg/dL all other times of the day Specimen Anatomical Collection Method Collection Time Receive d Time (Source) Location / / Volume Laterality Blood 06/20/2021 1:14 PM 1 1:14 EDT PM EDT Izabella Davis MD POINT OF CARE TEST ORDERABLE S Performing Organization Address City/State/[place] [address] (ABNORMAL) Differential, Automated (06/20/2021 8:03 AM EDT) Patholo gist Method Time Signature Neutrophils % 81.1 % [facility]ORY Neutr Abs (ANC) 14.68 (H) 1.70 - [facility] 6.10 [facility] x10(3)/[facility] LABORATORY Lymphocytes % 6.8 % [facility]ORATORY Lymphocytes Abs 1.2 0.9 - 3.[address] [facility] x10(3)/[facility] LABORATORY Monocytes % 5.8 % [facility]ORY Monocyte Abs 1.0 (H) 0.3 - 0.[address] [facility] x10(3)/[facility] LABORATORY Eosinophils % 4.7 % [facility] Eosinophils Abs 0.8 (H) 0.0 - 0.[address] [facility] x10(3)/[facility] LABORATORY Basophils % 0.8 % [facility] Basophils Abs 0.1 0.0 - 0.[address] [facility] x10(3)/[facility] LABORATORY Immature Gran % 0.80 % [facility] Comment: Immature granulocytes(IG's)percentage an d absolute count will include metamyelocytes, myelocytes, and promyelo cytes. Blood smears from CBCs yielding IG's will be scanned manually for keshia danmaren. If this scan disagrees with the automated IG or if promyelocytes are not ed, a manual differential will be performed. [place] Gran Abs 0.14 (H) 0.00 - 0.04 x10(3)/[facility] LABORATORY Specimen Anatomical Collection Method Collection Time Receive d Time (Source) Location / / Volume Laterality Blood 06/20/2021 8:03 AM 8:19 EDT AM EDT Resulting Agency Comment Spec In Lab Alejandro Enriquez MD HEMATOLOGY ORDERABLES Performing Organization Address City/State/ZIP [place] [address] (ABNORMAL) Hemogram (06/20/2021 8:03 AM EDT) Analysis Performed At Patho logist Time Signature WBC 18.1 (H) 4.0 - 9.[address] [facility] x10(3)/[facility] LABORATORY RBC 2.62 (L) 4.00 - [facility] ISELA 5.21 [facility] x10(6)/[facility] LABORATORY Hemoglobin 7.6 (L) 11.7 - [facility] 15.5 gm/dL [facility] Hematocrit 24.6 (L) 35.7 - [facility] ISELA 45.8 % [facility] MCV 93.9 82.6 - [facility] LABORATORY MCH 29.0 27.1 - [place] ISELA 32.0 pg [facility] MCHC 30.9 (L) 31.7 - [facility] 35.0 gm/dL [facility] Platelets 195 145 - [address] [facility] x10(3)/[facility] LABORATORY RDWSD 50.5 (H) 37.0 - [facility] ISELA 46.0 [facility] LABORATORY RDWCV 14.7 (H) 11.5 - [facility] I[facility] 14.1 % [facility] MPV 11.1 7.6 - 12.9 [facility] nRBC % Auto 0.0 % [facility]ORY nRBC Abs Auto 0.000 0.000 - [facility] 0.000 [facility] x10(3)/[facility] LABORATORY Specimen Anatomical Collection Method Collection Time Receive d Time (Source) Location / / Volume Laterality Blood 06/20/2021 8:03 AM 8:19 EDT AM EDT Resulting Agency Comment Spec In Lab Alejandro Enriquez MD HEMATOLOGY ORDERABLES Performing Organization Address City/State/ZIP [place] [address] (ABNORMAL) Basic Metabolic Panel (non-fasting) (06/20/2021 8:03 AM EDT) athologist Signature Glucose Lvl 186 65 - [address] [facility] mg/dL [facility] Comment: Diabetes: >=200 mg/dL plus symp toms BUN 33 (H) 8 - 18 mg/dL [facility] Creatinine 1.59 (H) 0.70 - 1.20 mg/dL [facility] Sodium 132 (L) 135 - 145 mmol/L [facility] Potassium 4.8 3.5 - 5.0 mmol/L [facility] Comment: Please note: ??Patients with WBC >100,00 0 may have falsely elevated Potassium levels. ??For accurate Potassium quantif ication in these patients send serum separator tube (gold top) for subsequent determinations. ??Contact the Clinical Chemistry Laboratory if there are any qu estions. Chloride 101 98 - 107 mmol/L [facility] CO2 21 (L) 22 - 31 mmol/L [facility] Anion Gap 10 5 - 15 mmol/L [facility] Calcium 9.0 8.5 - 10.5 mg/dL [facility] Estimated GFR 33 (L) >=60 mL/min/1.73 m?? [facility] Comment: This patient? s estimated glomerular filtration rate (eGFR) is between 33 mL/min/1.73 m2 (patients with less muscl e mass) and 39 mL/min/1.73 m2 (patients with more muscle mass) as determined by the CKD-EPI equation. Assessment of eGFR is not appropriate when creatinine concentrations are rapidly changing. For clinical decisions where creatinine clearance will affect therapy, a 24-hour urine creatinine clearance may b e advised. Assignment of CKD stage 1 - 5 for patien ts with an eGFR near the transition point between stages may be based on cli nical assessment of muscle mass and symptoms in addition to eGFR. Specimen Anatomical Collection Method Collection Time Receive d Time (Source) Location / / Volume Laterality Blood 06/20/2021 8:03 AM 8:19 EDT AM EDT Resulting Agency Comment Spec In Lab Izabella Davis MD CHEMISTRY ORDERABLES Performing Organization Address City/State/[place] [address] (ABNORMAL) POCT Glucose (06/20/2021 7:30 AM EDT) P athologist Signature POC Glucose 236 (H) 65 - 199 [facility] Comment: Supplemental ranges: <140 mg/dL before meals <180 mg/dL all other times of the day Specimen Anatomical Collection Method Collection Time Receive d Time (Source) Location / / Volume Laterality Blood 06/20/2021 7:30 AM 7:30 EDT AM EDT Izabella Davis MD POINT OF CARE TEST ORDERABLE S Performing Organization Address City/[facility]/[place] [address] POCT Glucose (06/20/2021 3:09 AM EDT) P athologist Signature POC Glucose 124 65 - 199 [place] I[place] mg/dL [facility] Comment: Supplemental ranges: <140 mg/dL before meals <180 mg/dL all other times of the day Specimen Anatomical Collection Method Collection Time Receive d Time (Source) Location / / Volume Laterality Blood 06/20/2021 3:09 AM 3:09 EDT AM EDT Izabella Davis MD POINT OF CARE TEST ORDERABLE S Performing Organization Address City/State/Z[place] [address] POCT Glucose (06/20/2021 12:53 AM EDT) athologist Signature POC Glucose 147 65 - 199 [place] mg/dL [facility] Comment: Supplemental ranges: <140 mg/dL before meals <180 mg/dL all other times of the day Specimen Anatomical Collection Method Collection Time Receive d Time (Source) Location / / Volume Laterality Blood 06/20/2021 12:53 06/20/2021 AM EDT 12:53 AM EDT Izabella Davis MD POINT OF CARE TEST ORDERABLE S Performing Organization Address City/State/ZIP Code Phon e Number [place] [phone] (ABNORMAL) POCT Glucose (06/19/2021 8:28 PM EDT) athologist Signature POC Glucose 228 (H) 65 - 199 [place] mg/dL [facility] Comment: Supplemental ranges: <140 mg/dL before meals <180 mg/dL all other times of the day Specimen Anatomical Collection Method Collection Time Receive d Time (Source) Location / / Volume Laterality Blood 06/19/2021 8:28 PM 8:28 EDT PM EDT Izabella Davis MD POINT OF CARE TEST ORDERABLE S Performing Organization Address City/State/ZIP [place] [address] POCT Glucose (06/19/2021 5:27 PM EDT) athologist Signature POC Glucose 180 65 - 199 [place] mg/dL [facility] Comment: Supplemental ranges: <140 mg/dL before meals <180 mg/dL all other times of the day Specimen Anatomical Collection Method Collection Time Receive d Time (Source) Location / / Volume Laterality Blood 06/19/2021 5:27 PM 5:27 EDT PM EDT Izabella Davis MD POINT OF CARE TEST ORDERABLE S Performing Organization Address City/State/Z[place] [address] EKG 12 Lead (06/19/2021 3:21 PM EDT) Component Value Ref Range Test Analysis Performed Pathologis t Method Time At Signature Ventricular rate 96 BPM MUSE SYSTEM Atrial Rate 96 BPM MUSE SYSTEM P-R Interval 160 ms MUSE SYSTEM QRS Duration 80 ms MUSE SYSTEM Q-T Interval 328 ms MUSE SYSTEM QTC Calculated 414 ms MUSE SYSTEM (Bezet) Calculated P [place] 56 degrees MUSE SYSTEM Calculated R [place] 53 degrees MUSE SYSTEM Calculated T [place] 180 degrees MUSE SYSTEM INTERPRETATION Normal sinus rhythm MUSE SYSTEM ST & T wave abnormality, consider inferolateral ischemia Abnormal ECG When compared with ECG of 17-JUN-2021 13:51, Right bundle branch block is no longer Present Confirmed by MD Antonella, Angel Ceron ([id number]) on 06/20/2021 9:56:15 AM Specimen Anatomical Collection Method Collection Time Receive d Time (Source) Location / / Volume Laterality 06/19/2021 3:21 PM 9:56 EDT AM EDT Izabella Davis MD ECG ORDERABLES Performing Organization Address City/[facility]/ZIP Code Phon e Number MUSE SYSTEM POCT Glucose (06/19/2021 12:13 PM EDT) P athologist Signature POC Glucose 125 65 - 199 [facility] Comment: Supplemental ranges: <140 mg/dL before meals <180 mg/dL all other times of the day Specimen Anatomical Collection Method Collection Time Receive d Time (Source) Location / / Volume Laterality Blood 06/19/2021 12:13 06/19/2021 PM EDT 12:13 PM EDT Izabella Davis MD POINT OF CARE TEST ORDERABLE S Performing Organization Address City/State/ZIP Code Phon e Number [place] [id number] POCT Glucose (06/19/2021 8:07 AM EDT) P athologist Signature POC Glucose 144 65 - [address] [facility] Comment: Supplemental ranges: <140 mg/dL before meals <180 mg/dL all other times of the day Specimen Anatomical Collection Method Collection Time Receive d Time (Source) Location / / Volume Laterality Blood 06/19/2021 8:07 AM 8:07 EDT AM EDT Izabella Davis MD POINT OF CARE TEST ORDERABLE S Performing Organization Address City/State/[place] [address] POCT Glucose (06/19/2021 4:00 AM EDT) P athologist Signature POC Glucose 147 65 - 199 [place] mg/dL [facility] Comment: Supplemental ranges: <140 mg/dL before meals <180 mg/dL all other times of the day Specimen Anatomical Collection Method Collection Time Receive d Time (Source) Location / / Volume Laterality Blood 06/19/2021 4:00 AM 4:00 EDT AM EDT Izabella Davis MD POINT OF CARE TEST ORDERABLE S Performing Organization Address City/[facility]/[place] [address] POCT Glucose (06/18/2021 11:06 PM EDT) P athologist Signature POC Glucose 149 65 - 199 [place] mg/dL [facility] Comment: Supplemental ranges: <140 mg/dL before meals <180 mg/dL all other times of the day Specimen Anatomical Collection Method Collection Time Receive d Time (Source) Location / / Volume Laterality Blood 06/18/2021 11:06 06/18/2021 PM EDT 11:06 PM EDT Izabella Davis MD POINT OF CARE TEST ORDERABLE S Performing Organization Address City/State/[place] [address] (ABNORMAL) Hemogram (06/18/2021 10:17 PM EDT) Analysis Performed At Patho logist Time Signature WBC 23.0 (H) 4.0 - 9.[address] [facility] x10(3)/[facility] LABORATORY RBC 2.90 (L) 4.00 - [facility] 5.21 [facility] x10(6)/[facility] LABORATORY Hemoglobin 8.6 (L) 11.7 - [place] 15.5 gm/dL [facility] Hematocrit 28.2 (L) 35.7 - [place] 45.8 % [facility] MCV 97.2 (H) 82.6 - [place] 94.4 [facility] LABORATORY MCH 29.7 27.1 - [place] 32.0 pg [facility] MCHC 30.5 (L) 31.7 - [place] 35.0 gm/dL [facility] Platelets 190 145 - 357 [place] x10(3)/[facility] LABORATORY RDWSD 54.0 (H) 37.0 - [place] 46.0 [facility] LABORATORY RDWCV 15.0 (H) 11.5 - [place] 14.1 % [facility] MPV 11.4 7.6 - 12.9 [place] [facility] LABORATORY nRBC % Auto 0.0 % [facility] LABORATORY nRBC Abs Auto 0.000 0.000 - [facility] MTZ 0.000 [facility] x10(3)/[facility] LABORATORY Specimen Anatomical Collection Method Collection Time Receive d Time (Source) Location / / Volume Laterality Blood 06/18/2021 10:17 06/18/2021 PM EDT 10:23 PM EDT Resulting Agency Comment Spec In Lab Izabella Davis MD HEMATOLOGY ORDERABLES Performing Organization Address City/State/[place] [address] POCT Glucose (06/18/2021 8:11 PM EDT) P athologist Signature POC Glucose 182 65 - 199 [facility]Z mg/dL [facility] Comment: Supplemental ranges: <140 mg/dL before meals <180 mg/dL all other times of the day Specimen Anatomical Collection Method Collection Time Receive d Time (Source) Location / / Volume Laterality Blood 06/18/2021 8:11 PM 8:11 EDT PM EDT Izabella Davis MD POINT OF CARE TEST ORDERABLE S Performing Organization Address City/State/[place] [address] (ABNORMAL) POCT Glucose (06/18/2021 6:30 PM EDT) athologist Signature POC Glucose 225 (H) 65 - [address] [facility] mg/dL [facility] Comment: Supplemental ranges: <140 mg/dL before meals <180 mg/dL all other times of the day Specimen Anatomical Collection Method Collection Time Receive d Time (Source) Location / / Volume Laterality Blood 06/18/2021 6:30 PM 6:30 EDT PM EDT Izabella Davis MD POINT OF CARE TEST ORDERABLE S Performing Organization Address City/State/ZIP [place] [address] (ABNORMAL) Basic Metabolic Panel (non-fasting) (06/18/2021 6:24 PM EDT) athologist Signature Glucose Lvl 208 (H) 65 - [address] [facility] mg/dL [facility] Comment: Diabetes: >=200 mg/dL plus symp toms BUN 34 (H) 8 - 18 mg/dL [facility] LABORATORY Creatinine 1.54 (H) 0.70 - 1.20 mg/dL [facility] LABORATORY Sodium 133 (L) 135 - 145 mmol/L [facility] LABORATORY Potassium 5.2 (H) 3.5 - 5.0 mmol/L [facility] LABORATORY Comment: Please note: ??Patients with WBC >100,00 0 may have falsely elevated Potassium levels. ??For accurate Potassium quantif ication in these patients send serum separator tube (gold top) for subsequent determinations. ??Contact the Clinical Chemistry Laboratory if there are any qu estions. Chloride 103 98 - 107 mmol/L [facility] LABORATORY CO2 20 (L) 22 - 31 mmol/L [facility]OR[facility] Anion Gap 10 5 - 15 mmol/L [facility]ORY Calcium 8.4 (L) 8.5 - 10.5 mg/dL [facility] LABORATORY Estimated GFR 35 (L) >=60 mL/min/1.73 m?? [facility] Comment: This patient? s estimated glomerular filtration rate (eGFR) is between 35 mL/min/1.73 m2 (patients with less muscl e mass) and 40 mL/min/1.73 m2 (patients with more muscle mass) as determined by the CKD-EPI equation. Assessment of eGFR is not appropriate when creatinine concentrations are rapidly changing. For clinical decisions where creatinine clearance will affect therapy, a 24-hour urine creatinine clearance may b e advised. Assignment of CKD stage 1 - 5 for patien ts with an eGFR near the transition point between stages may be based on cli nical assessment of muscle mass and symptoms in addition to eGFR. Specimen Anatomical Collection Method Collection Time Receive d Time (Source) Location / / Volume Laterality Blood 06/18/2021 6:24 PM 6:29 EDT PM EDT Resulting Agency Comment Spec In Lab Izabella Davis MD CHEMISTRY ORDERABLES Performing Organization Address City/[facility]/ZIP [facility] Phon e Number [address] POCT Glucose (06/18/2021 1:24 PM EDT) athologist Signature POC Glucose 167 65 - 199 [facility] Comment: Supplemental ranges: <140 mg/dL before meals <180 mg/dL all other times of the day Specimen Anatomical Collection Method Collection Time Receive d Time (Source) Location / / Volume Laterality Blood 06/18/2021 1:24 PM 1 1:24 EDT PM EDT Izabella Davis MD POINT OF CARE TEST ORDERABLE S Performing Organization Address City/[facility]/ZIP [facility] [address] POCT Glucose (06/18/2021 8:22 AM EDT) athologist Signature POC Glucose 160 65 - 199 [facility]SELA mg/dL [facility] Comment: Supplemental ranges: <140 mg/dL before meals <180 mg/dL all other times of the day Specimen Anatomical Collection Method Collection Time Receive d Time (Source) Location / / Volume Laterality Blood 06/18/2021 8:22 AM 1 8:22 EDT AM EDT Izabella Davis MD POINT OF CARE TEST ORDERABLE S Performing Organization Address City/State/Z[place] [address] (ABNORMAL) Differential, Automated (06/18/2021 5:00 AM EDT) [facility] Method Time Signature Neutrophils % 85.9 % [facility] LABORATORY Neutr Abs (ANC) 13.98 (H) 1.70 - [facility] 6.10 [facility] x10(3)/[facility] LABORATORY Lymphocytes % 5.8 % [facility] LABORATORY Lymphocytes Abs 1.0 0.9 - 3.[address] [facility] x10(3)/[facility] LABORATORY Monocytes % 6.0 % [facility] LABORATORY Monocyte Abs 1.0 (H) 0.3 - 0.[address] [facility] x10(3)/[facility] LABORATORY Eosinophils % 0.9 % [facility] LABORATORY Eosinophils Abs 0.2 0.0 - 0.[address] [facility] x10(3)/[facility] LABORATORY Basophils % 0.7 % [facility] LABORATORY Basophils Abs 0.1 0.0 - 0.[address] [facility] x10(3)/[facility] LABORATORY Immature Gran % 0.70 % [facility] LAB[facility]AT[facility] Comment: Immature granulocytes(IG's)percentage an d absolute count will include metamyelocytes, myelocytes, and promyelo cytes. Blood smears from CBCs yielding IG's will be scanned manually for concor dance. If this scan disagrees with the automated IG or if promyelocytes are not ed, a manual differential will be performed. [place] Gran Abs 0.11 (H) 0.00 - 0.04 x10(3)/[facility] LABORATORY Specimen Anatomical Collection Method Collection Time Receive d Time (Source) Location / / Volume Laterality Blood 06/18/2021 5:00 AM 5:15 EDT AM EDT Resulting Agency Comment Spec In Lab Papa Jimenez MD HEMATOLOGY ORDERABLES Performing Organization Address City/State/ZIP Code [place] [address] (ABNORMAL) Hemogram (06/18/2021 5:00 AM EDT) Analysis Performed At Patho logist Time Signature WBC 16.3 (H) 4.0 - 9.[address] [facility] x10(3)/[facility] LABORATORY RBC 2.45 (L) 4.00 - [place] 5.21 [facility] x10(6)/[facility] LABORATORY Hemoglobin 7.5 (L) 11.7 - [facility] 15.[facility]/dL [facility] Hematocrit 23.9 (L) 35.7 - [facility] 45.8 % [facility] MCV 97.6 (H) 82.6 - [facility] 94.4 [facility] LABORATORY MCH 30.6 27.1 - [place] ISELA 32.0 pg [facility] MCHC 31.4 (L) 31.7 - [facility] 35.0 gm/dL [facility] Platelets 146 145 - [address] [facility] x10(3)/[facility] LABORATORY RDWSD 53.6 (H) 37.0 - [facility] ISELA 46.0 [facility] LABORATORY RDWCV 15.0 (H) 11.5 - [facility] ISELA 14.1 % [facility] MPV 11.2 7.6 - 12.[address] [facility] LABORATORY nRBC % Auto 0.0 % [facility] LABORATORY nRBC Abs Auto 0.000 0.000 - [facility] ISELA 0.000 [facility] x10(3)/[facility] LABORATORY Specimen Anatomical Collection Method Collection Time Receive d Time (Source) Location / / Volume Laterality Blood 06/18/2021 5:00 AM 5:15 EDT AM EDT Resulting Agency Comment Spec In Lab Papa Jimenez MD HEMATOLOGY ORDERABLES Performing Organization Address City/State/[place] [address] (ABNORMAL) Basic Metabolic Panel (non-fasting) (06/18/2021 5:00 AM EDT) P athologist Signature Glucose Lvl 114 65 - [address] [facility] mg/dL [facility] Comment: Diabetes: >=200 mg/dL plus symp toms BUN 32 (H) 8 - 18 mg/dL [facility] LABORATORY Creatinine 1.63 (H) 0.70 - 1.20 mg/dL [facility] LABORATORY Sodium 137 135 - 145 mmol/L [facility] LABORATORY Potassium 4.8 3.5 - 5.0 mmol/L [facility] LABORATORY Comment: Please note: ??Patients with WBC >100,00 0 may have falsely elevated Potassium levels. ??For accurate Potassium quantif ication in these patients send serum separator tube (gold top) for subsequent determinations. ??Contact the Clinical Chemistry Laboratory if there are any qu estions. Chloride 107 98 - 107 mmol/L [facility]ORATORY CO2 22 22 - 31 mmol/L [facility]OR[facility] Anion Gap 8 5 - 15 mmol/L [facility] LABORATORY Calcium 8.1 (L) 8.5 - 10.5 mg/dL [facility] LABORATORY Estimated GFR 32 (L) >=60 mL/min/1.73 m?? [facility] Comment: This patient? s estimated glomerular filtration rate (eGFR) is between 32 mL/min/1.73 m2 (patients with less muscl e mass) and 37 mL/min/1.73 m2 (patients with more muscle mass) as determined by the CKD-EPI equation. Assessment of eGFR is not appropriate when creatinine concentrations are rapidly changing. For clinical decisions where creatinine clearance will affect therapy, a 24-hour urine creatinine clearance may b e advised. Assignment of CKD stage 1 - 5 for patien ts with an eGFR near the transition point between stages may be based on cli nical assessment of muscle mass and symptoms in addition to eGFR. Specimen Anatomical Collection Method Collection Time Receive d Time (Source) Location / / Volume Laterality Blood 06/18/2021 5:00 AM 5:15 EDT AM EDT Resulting Agency Comment Spec In Lab Izabella Davis MD CHEMISTRY ORDERABLES Performing Organization Address City/State/ZIP [place] [address] POCT Glucose (06/18/2021 3:09 AM EDT) athologist Signature POC Glucose 98 65 - 199 [place] PACEIS[place] mg/dL [facility] Comment: Supplemental ranges: <140 mg/dL before meals <180 mg/dL all other times of the day Specimen Anatomical Collection Method Collection Time Receive d Time (Source) Location / / Volume Laterality Blood 06/18/2021 3:09 AM 3:09 EDT AM EDT Izabella Davis MD POINT OF CARE TEST ORDERABLE S Performing Organization Address City/State/ZIP Code Phon e Number [address] POCT Glucose (06/17/2021 11:48 PM EDT) athologist Signature POC Glucose 167 65 - 199 [place] mg/dL [facility] Comment: Supplemental ranges: <140 mg/dL before meals <180 mg/dL all other times of the day Specimen Anatomical Collection Method Collection Time Receive d Time (Source) Location / / Volume Laterality Blood 06/17/2021 11:48 06/17/2021 PM EDT 11:48 PM EDT Izabella Davis MD POINT OF CARE TEST ORDERABLE S Performing Organization Address City/State/[place] [address] (ABNORMAL) POCT Glucose (06/17/2021 10:22 PM EDT) athologist Signature POC Glucose 207 (H) 65 - 199 [place] PACEIS[place] mg/dL [facility] Comment: Supplemental ranges: <140 mg/dL before meals <180 mg/dL all other times of the day Specimen Anatomical Collection Method Collection Time Receive d Time (Source) Location / / Volume Laterality Blood 06/17/2021 10:22 06/17/2021 PM EDT 10:22 PM EDT Izabella Davis MD POINT OF CARE TEST ORDERABLE S Performing Organization Address City/State/[place] [address] (ABNORMAL) POCT Glucose (06/17/2021 7:51 PM EDT) athologist Signature POC Glucose 284 (H) 65 - 199 [facility] Comment: Supplemental ranges: <140 mg/dL before meals <180 mg/dL all other times of the day Specimen Anatomical Collection Method Collection Time Receive d Time (Source) Location / / Volume Laterality Blood 06/17/2021 7:51 PM 1 7:51 EDT PM EDT Izabella Davis MD POINT OF CARE TEST ORDERABLE S Performing Organization Address City/State/[place] [address] (ABNORMAL) POCT Glucose (06/17/2021 6:08 PM EDT) athologist Signature POC Glucose 276 (H) 65 - 199 [facility] Comment: Supplemental ranges: <140 mg/dL before meals <180 mg/dL all other times of the day Specimen Anatomical Collection Method Collection Time Receive d Time (Source) Location / / Volume Laterality Blood 06/17/2021 6:08 PM 1 6:08 EDT PM EDT Izabella Davis MD POINT OF CARE TEST ORDERABLE S Performing Organization Address City/State/[place] [address] (ABNORMAL) POCT Glucose (06/17/2021 3:54 PM EDT) athologist Signature POC Glucose 229 (H) 65 - 199 [facility] Comment: Supplemental ranges: <140 mg/dL before meals <180 mg/dL all other times of the day Specimen Anatomical Collection Method Collection Time Receive d Time (Source) Location / / Volume Laterality Blood 06/17/2021 3:54 PM 1 3:54 EDT PM EDT Izabella Davis MD POINT OF CARE TEST ORDERABLE S Performing Organization Address City/State/[place] [address] Lavender Tube HOLD (06/17/2021 2:06 PM EDT) Patholo gist Method Time Signature Lavender Hold Sample in [facility] lab. [facility] Specimen Anatomical Collection Method Collection Time Receive d Time (Source) Location / / Volume Laterality Blood Venous Draw / 06/17/2021 2:06 PM 06/17/20 2:16 Unknown EDT PM EDT Daysi ESTRELLA HEMATOLOGY ORDERABLES Performing Organization Address City/State/ZIP [place] [address] (ABNORMAL) Hemogram (06/17/2021 2:06 PM EDT) Analysis Performed At Patho logist Time Signature WBC 22.5 (H) 4.0 - 9.[address] [facility] x10(3)/[facility] LABORATORY RBC 3.06 (L) 4.00 - [facility] ISELA 5.21 [facility] x10(6)/[facility] LABORATORY Hemoglobin 9.2 (L) 11.7 - [facility] ISELA 15.5 gm/dL [facility] Hematocrit 28.6 (L) 35.7 - [facility] ISELA 45.8 % [facility] MCV 93.5 82.6 - [facility] 94.4 [facility] LABORATORY MCH 30.1 27.1 - [place] ISELA 32.0 pg [facility] MCHC 32.2 31.7 - [facility] ISELA 35.0 gm/dL [facility] Platelets 206 145 - 357 [place] ISE[place] x10(3)/[facility] LABORATORY RDWSD 51.8 (H) 37.0 - [facility] 46.0 [facility] LABORATORY RDWCV 15.1 (H) 11.5 - [facility] ISELA 14.1 % [facility] LABORATORY MPV 11.1 7.6 - 12.9 [facility] LABORATORY nRBC % Auto 0.0 % [facility] LABORATORY nRBC Abs Auto 0.000 0.000 - [employer] 0.000 [facility] x10(3)/[facility] LABORATORY Specimen Anatomical Collection Method Collection Time Receive d Time (Source) Location / / Volume Laterality Blood 06/17/2021 2:06 PM 1 2:15 EDT PM EDT Resulting Agency Comment Spec In Lab Izabella Davis MD HEMATOLOGY ORDERABLES Performing Organization Address City/[facility]/[place] [address] EKG 12 Lead (06/17/2021 1:51 PM EDT) Component Value Ref Range Test Analysis Performed Pathologis t Method Time At Signature Ventricular rate 104 BPM MUSE SYSTEM Atrial Rate 104 BPM MUSE SYSTEM P-R Interval 152 ms MUSE SYSTEM QRS Duration 130 ms MUSE SYSTEM Q-T Interval 380 ms MUSE SYSTEM QTC Calculated 499 ms MUSE SYSTEM (Bezet) Calculated P [place] 45 degrees MUSE SYSTEM Calculated R [place] 36 degrees MUSE SYSTEM Calculated T [place] 4 degrees MUSE SYSTEM INTERPRETATION Sinus tachycardia MUSE SY STEM Right bundle branch block Abnormal ECG When compared with ECG of 21-DEC-2010 16:45, Right bundle branch block is now Present Confirmed by MD Dewey, Ozzy Esparza ([id number]) on 06/17/2021 2:21:2 7 PM Specimen Anatomical Collection Method Collection Time Receive d Time (Source) Location / / Volume Laterality 06/17/2021 1:51 PM 1 2:21 EDT PM EDT Izabella Davis MD ECG ORDERABLES Performing Organization Address City/[facility]/ZIP Code Phon e Number MUSE SYSTEM (ABNORMAL) POCT Glucose (06/17/2021 1:35 PM EDT) athologist Signature POC Glucose 233 (H) 65 - [address] [facility] mg/dL [facility] Comment: Supplemental ranges: <140 mg/dL before meals <180 mg/dL all other times of the day Specimen Anatomical Collection Method Collection Time Receive d Time (Source) Location / / Volume Laterality Blood 06/17/2021 1:35 PM 1 1:35 EDT PM EDT Izabella Davis MD POINT OF CARE TEST ORDERABLE S Performing Organization Address City/[facility]/[place] [address] (ABNORMAL) POCT Glucose (06/17/2021 12:40 PM EDT) P athologist Signature POC Glucose 213 (H) 65 - 199 [facility] PACEISEL[place] mg/dL [facility] Comment: Supplemental ranges: <140 mg/dL before meals <180 mg/dL all other times of the day Specimen Anatomical Collection Method Collection Time Receive d Time (Source) Location / / Volume Laterality Blood 06/17/2021 12:40 06/17/2021 PM EDT 12:40 PM EDT Izabella Davis MD POINT OF CARE TEST ORDERABLE S Performing Organization Address City/State/[place] [address] (ABNORMAL) POCT Glucose (06/17/2021 11:15 AM EDT) athologist Signature POC Glucose 228 (H) 65 - 199 [facility] Comment: Supplemental ranges: <140 mg/dL before meals <180 mg/dL all other times of the day Specimen Anatomical Collection Method Collection Time Receive d Time (Source) Location / / Volume Laterality Blood 06/17/2021 11:15 06/17/2021 AM EDT 11:15 AM EDT Izabella Davis MD POINT OF CARE TEST ORDERABLE S Performing Organization Address City/State/[place] [address] POCT Glucose (06/17/2021 9:19 AM EDT) athologist Signature POC Glucose 115 65 - 199 [facility] ISELA mg/dL [facility] Comment: Supplemental ranges: <140 mg/dL before meals <180 mg/dL all other times of the day Specimen Anatomical Collection Method Collection Time Receive d Time (Source) Location / / Volume Laterality Blood 06/17/2021 9:19 AM 9:19 EDT AM EDT Izabella Davis MD POINT OF CARE TEST ORDERABLE S Performing Organization Address City/State/[place] [address] POCT Glucose (06/17/2021 7:54 AM EDT) athologist Signature POC Glucose 109 65 - 199 EBONY PACEISELA mg/dL [facility] Comment: Supplemental ranges: <140 mg/dL before meals <180 mg/dL all other times of the day Specimen Anatomical Collection Method Collection Time Receive d Time (Source) Location / / Volume Laterality Blood 06/17/2021 7:54 AM 1 7:54 EDT AM EDT Izabella Davis MD POINT OF CARE TEST ORDERABLE S Performing Organization Address City/State/[place] [address] POCT Glucose (06/17/2021 3:58 AM EDT) P athologist Signature POC Glucose 179 65 - 199 EBONY [place] mg/dL [facility] Comment: Supplemental ranges: <140 mg/dL before meals <180 mg/dL all other times of the day Specimen Anatomical Collection Method Collection Time Receive d Time (Source) Location / / Volume Laterality Blood 06/17/2021 3:58 AM 1 3:58 EDT AM EDT Izabella Davis MD POINT OF CARE TEST ORDERABLE S Performing Organization Address City/State/[place] [address] (ABNORMAL) POCT Glucose (06/17/2021 1:59 AM EDT) P athologist Signature POC Glucose 251 (H) 65 - 199 EB[place]Y [place] mg/dL [facility] Comment: Supplemental ranges: <140 mg/dL before meals <180 mg/dL all other times of the day Specimen Anatomical Collection Method Collection Time Receive d Time (Source) Location / / Volume Laterality Blood 06/17/2021 1:59 AM 1 1:59 EDT AM EDT Izabella Davis MD POINT OF CARE TEST ORDERABLE S Performing Organization Address City/State/[place] [address] (ABNORMAL) Hemoglobin A1c (06/17/2021 1:15 AM EDT) Analysis Performed At Patho logist Time Signature Hemoglobin A1C 5.9 (H) 4.3 - 5.6 [facility] Comment: Reference Range: 4.3 - 5.6% 5.7 - 6.4% - Increased Risk of Developin g Diabetes Mellitus >= 6.5% - Consistent with diagnosis of D iabetes Mellitus In the absence of hyperglycemia (i.e. pl asma glucose > 200 mg/dL) or classic symptoms of hyperglycemia a repeat measu rement of HbA1c should be performed on a separate sample to confirm the diagnos is. Diagnosis and Classification of Diabetes Mellitus, Diabetes Care 2013; 36: Suppl. 1, S67-64 Est Avg Gluc 123 mg/dL [facility] Comment: eAG equivalents for HbA1c percentages: HbA1c(%) ?eAG(mg/dL) 6.0 ?126 6.5 ?140 7.0 ?154 7.5 ?169 8.0 ?183 8.5 ?197 9.0 ?212 9.5 ?226 10.0 ? 240 Limitations: The eAG calculation has not been validated on women, individuals below 18 years old and above 70 years old, and individuals with hemoglobinopathies. Additional resources are available on [facility] ADA website. Simone VILLARREAL, Patricia J, Guillermina R, et al. ??Tr anslating the A1C assay into estimated average glucose values. ??Diabetes Care 2008:31(8):5308-8810. Specimen Anatomical Collection Method Collection Time Receive d Time (Source) Location / / Volume Laterality Blood Venous Draw / 06/17/2021 1:15 AM 06/17/20 21 8:32 Unknown EDT AM EDT Resulting Agency Comment Spec In Lab Lexus Georges APRN CHEMISTRY ORDERABLES Performing Organization Address City/[facility]/ZIP Code Phon e Number [address] Scan, Peripheral Blood (06/17/2021 1:15 AM EDT) [facility] Conmio Method Time Signature Plat Estimate Normal [facility] RBC Morphology Abnormal [facility] Macrocytes 1-5 /HPF [facility] Microcytes 1-5 /HPF [facility] Hypochromia Slight [facility] Ovalocytes 1-5 /HPF [facility] Tear Drop Cells 1-5 /HPF [facility] Specimen Anatomical Collection Method Collection Time Receive d Time (Source) Location / / Volume Laterality Blood 06/17/2021 1:15 AM 1:23 EDT AM EDT Resulting Agency Comment Spec In Lab Papa Jimenez MD HEMATOLOGY ORDERABLES Performing Organization Address City/[facility]/[place] [address] (ABNORMAL) Differential, Automated (06/17/2021 1:15 AM EDT) [facility] Conmio Method Time Signature Neutrophils % 90.7 % [facility] Neutr Abs (ANC) 20.55 (H) 1.70 - [facility] 6.10 [facility] x10(3)/[facility] L LABORATORY Lymphocytes % 3.6 % [facility] Lymphocytes Abs 0.8 (L) 0.9 - 3.[address] [facility] x10(3)/[facility] LABORATORY Monocytes % 3.4 % [facility] Monocyte Abs 0.8 0.3 - 0.[address] [facility] x10(3)/[facility] LABORATORY Eosinophils % 0.4 % [facility] Eosinophils Abs 0.1 0.0 - 0.[address] [facility] x10(3)/[facility] LABORATORY Basophils % 0.6 % [facility] Basophils Abs 0.1 0.0 - 0.[address] [facility] x10(3)/[facility] LABORATORY Immature Gran % 1.30 % [facility] Comment: Immature granulocytes(IG's)percentage an d absolute count will include metamyelocytes, myelocytes, and promyelo cytes. Blood smears from CBCs yielding IG's will be scanned manually for concor dance. If this scan disagrees with the automated IG or if promyelocytes are not ed, a manual differential will be performed. [place] Gran Abs 0.29 (H) 0.00 - 0.04 x10(3)/[facility] LABORATORY Specimen Anatomical Collection Method Collection Time Receive d Time (Source) Location / / Volume Laterality Blood 06/17/2021 1:15 AM 1:23 EDT AM EDT Resulting Agency Comment Spec In Lab Papa Jimenez MD HEMATOLOGY ORDERABLES Performing Organization Address City/State/[place] [address] (ABNORMAL) Hemogram (06/17/2021 1:15 AM EDT) Analysis Performed At Patho logist Time Signature WBC 22.7 (H) 4.0 - 9.[address] [facility] x10(3)/[facility] LABORATORY RBC 2.97 (L) 4.00 - [facility] ISELA 5.21 [facility] x10(6)/[facility] LABORATORY Hemoglobin 8.9 (L) 11.7 - [facility] g[facility]dL [facility] Hematocrit 28.4 (L) 35.7 - [facility] ISELA 45.8 % [facility] MCV 95.6 (H) 82.6 - [facility] 94.4 [facility] LABORATORY MCH 30.0 27.1 - [facility] ISELA 32.0 pg [facility] MCHC 31.3 (L) 31.7 - [facility] 35.0 gm/dL [facility] Platelets 207 145 - [address] [facility] x10(3)/[facility] RDWSD 52.3 (H) 37.0 - [facility] ISELA 46.0 [facility] LABORATORY RDWCV 15.0 (H) 11.5 - [facility] ISELA 14.1 % [facility] MPV 10.7 7.6 - 12.9 [facility] LABORATORY nRBC % Auto 0.0 % [facility] LABORATORY nRBC Abs Auto 0.000 0.000 - [facility] 0.000 [facility] x10(3)/[facility] LABORATORY Specimen Anatomical Collection Method Collection Time Receive d Time (Source) Location / / Volume Laterality Blood 06/17/2021 1:15 06/17/2021 1:23 AM EDT AM EDT Resulting Agency Comment Spec In Lab Papa Jimenez MD HEMATOLOGY ORDERABLES Performing Organization Address City/State/ZIP [place] [address] (ABNORMAL) Basic Metabolic Panel (non-fasting) (06/17/2021 1:15 AM EDT) P athologist Signature Glucose Lvl 254 (H) 65 - [address] [facility] mg/dL [facility] Comment: Diabetes: >=200 mg/dL plus symp toms BUN 32 (H) 8 - 18 mg/dL [facility] Creatinine 1.50 (H) 0.70 - 1.20 mg/dL [facility] LABORATORY Sodium 140 135 - 145 mmol/L [facility] Potassium 5.1 (H) 3.5 - 5.0 mmol/L [facility] Comment: Please note: ??Patients with WBC >100,00 0 may have falsely elevated Potassium levels. ??For accurate Potassium quantif ication in these patients send serum separator tube (gold top) for subsequent determinations. ??Contact the Clinical Chemistry Laboratory if there are any qu estions. Chloride 106 98 - 107 mmol/L [facility] CO2 22 22 - 31 mmol/L [facility] Anion Gap 12 5 - 15 mmol/L [facility] Calcium 8.4 (L) 8.5 - 10.5 mg/dL [facility] Estimated GFR 36 (L) >=60 mL/min/1.73 m?? [facility] Comment: This patient? s estimated glomerular filtration rate (eGFR) is between 36 mL/min/1.73 m2 (patients with less muscl e mass) and 41 mL/min/1.73 m2 (patients with more muscle mass) as determined by the CKD-EPI equation. Assessment of eGFR is not appropriate when creatinine concentrations are rapidly changing. For clinical decisions where creatinine clearance will affect therapy, a 24-hour urine creatinine clearance may b e advised. Assignment of CKD stage 1 - 5 for patien ts with an eGFR near the transition point between stages may be based on cli nical assessment of muscle mass and symptoms in addition to eGFR. Specimen Anatomical Collection Method Collection Time Receive d Time (Source) Location / / Volume Laterality Blood 06/17/2021 1:15 AM 1:23 EDT AM EDT Resulting Agency Comment Spec In Lab Izabella Daivs MD CHEMISTRY ORDERABLES Performing Organization Address City/[facility]/[place] [address] (ABNORMAL) POCT Glucose (06/16/2021 11:01 PM EDT) P athologist Signature POC Glucose 249 (H) 65 - [address] [address] mg/dL [facility] Comment: Supplemental ranges: <140 mg/dL before meals <180 mg/dL all other times of the day Specimen Anatomical Collection Method Collection Time Receive d Time (Source) Location / / Volume Laterality Blood 06/16/2021 11:01 06/16/2021 PM EDT 11:01 PM EDT Izabella Davis MD POINT OF CARE TEST ORDERABLE S Performing Organization Address City/[facility]/[place] [address] Surgical Pathology Report (06/16/2021 10:52 PM EDT) Component Value Ref Test Analysis [facility] Range Method Time Signature Surgical [id number] ? Location: 3WST; 0308; [facility] Report The signing pathologist has (i) examined the relevant preparation(s) for the [facility] specimen(s) and (ii) rendered or confirmed the diagnosis(es) . HOSPITAL LABORATORY . ? 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 Electronically signed by: ?MD Thorne Jason R. Verified: ??06/24/2021 11:01 ??Pathologist Performed at: ??-[facility] Dept. of Pathology, [place], [place] ?Surgic al Pathology DIAGNOSIS Right kidney and ureter with paracaval and intracaval lymph nodes, excision: - Urothelial carcinoma. ?? (See SYNOPTIC REPORT), invasive into ?perinephric fat and renal parenchyma. 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 Electronically signed by: ?MD Thorne Jason R. Verified: ??06/24/2021 10:58 ??Pathologist Performed at: ??-[facility] Dept. of Pathology, [place], [place] SYNOPTIC Specimen ? Procedure: ??Nephroureterectomy ? Specimen Laterality: ??Right Tumor ? Tumor Site: ??Renal pelvis ? 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 Histologic Grade: ??High-grade ? Tumor Size: ??Cannot be det ermined - Multifocal microscopic tumor ? Tumor Extension : ??Tumor invades beyond muscularis into periureteral fat or ?peripelvic fat or the renal parenchyma ? Lymphovascular Invasion: ??Present ? Tumor Configuration: ??Papillary; ??Solid / nod ule Margins ? Margins: ??Unin volved by invasive carcinoma and carcinoma in situ / ?noninvasive urothelial carcinoma Lymph Nodes ? Number of Lymph Nodes Involved: ??0 ? Number of Lymph Nodes Examined: ??At least 17 Pathologic Stage Classification (pTNM, AJCC 8th Edition) ? TNM Descriptors: ??y (post-treatment) ? Primary Tumor (pT): ??pT3 ? Regional Lymph Nodes (pN): ??pN0 Additional Findings ? Additional Find ings: ??Therapy-related changes - Variable sclerotic change to ?lymph nodes a nd soft tissue; ??Tumor soft tissue deposits are seen adjacent ?to lymph nodes ? 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 Substantial via ble carcinoma is present in and around the renal pelvis, ?invading dire ctly into renal parenchyma and into perinephric (renal sinus) ?fat. There is also tumor present within soft tissue in sections of lymph ?nodes. Whethe r or not this represents contiguous tumor from the main mass . SYNOPTIC ?versus soft t issue tumor deposits is unclear. No definite medial soft tissue ?margin involv ement is identified; however, direct measurement of distance ?of clearance is not possible. Several lymph nodes show sclerotic scars ?consistent wi th treated tumor, but no definite viable lymph node metastases ?are identified. Tumor Block(s): ??A9 Normal Block(s): ??A17 CAP eCC December 2019 Annual Release ADDITIONAL STUDIES Whole slide scan: consumer sales representative slide(s) Immunohistochemistry Studies: Formalin-fixed, paraffin-emb edded tissue sections are studied using the polymer technique with appropriate positive and negative controls. ?These IHC studies provide the pathologist wit h adjunctive diagnostic information. Antibody specificity has been verified by testin g antibodies on a series of in-house tissues with known immunohistochemical perform ance characteristics. The clinical interpretation of any antibody positive stain ing or its absence is evaluated within the context of clinical presentation, morp hology, histopathological criteria and other diagnostic tests. Block ? Antibody/stain ?Result (Positive/Ne gative) A3 ? PAX8 ? Positive A3 ? p504s ?Positive A3 ? GATA3 ?Negative A3 ? [id number] ? Negative A10 ?GATA3 ?Positive SPECIMEN(S) SUBMITTED A - right kidney and ureter with para caval and intra caval lymph nodes, excision (1) CLINICAL INFORMATION [id number] cancer right renal pelvis S/P chemotherapy SPECIMEN PROCESSING A - Labeled/Fixative: Right kidn ey and ureter with paracaval and intracaval lymph nodes, fresh. Quantity/Size/Weight: Single, 27.0 x 11.5 x 5.0 cm, 995.4 g. SPECIMEN DESCRIPTION Resection Specimen: Intact, right, nephroureterectomy. LESION Size: 4.0 x 1.5 x 1.8 cm. Focality: Unifocal. Location: Renal pelvis and lower calyx. Tumor configuration: Blanco, he morrhagic and fibrotic tumor bed. Within the area there is an ill-defined white fir m area extending close to an artery wall. No definitive residual tumor is identified. DIRECT EXTENSION Tumor limited to the mucosa: No. Tumor invades into periurete ral fat or peripelvic fat or the renal parenchyma: Not identified grossly Tumor invades adjacent organ s, or through the kidney into the perinephric fat: Not identified grossly MARGINS Bladder: 20 cm. Soft tissue: 4.5 cm. Renal vein: 5 cm. Renal artery: 9 cm. KIDNEY . SPECIMEN PROCESSING Size: 13.0 x 6 x 5.5 cm. Parenchyma: The corticomedullary is ill-defined. Ureter: 18.5 x 0.5-1.0 cm, granular. Vein: 0.6 cm. BLADDER OTHER Adrenal gland: 6.0 x 3.5 x 0.5-1.5 cm, blanco orange. Lymph Nodes: Multiple lymph nodes within perihilar soft tiss ue up to 3 cm. Additional Findings: In the superior calyx, a blanco-white granular nodule measuring 0.3 x 0.3 x 0.2 cm is identified. Inking: The perinephric and periureteral fat is inked black. Sections/Processing: Personnel Training Officer sections in 34 cassettes as follows: ?A1: ??Artery and vein margin ?A2-A3: ??Bladder margin ?A4: ??Distal ureter, consumer sales representative ?A5: ??Mid ureter, consumer sales representative ?A6: ??Distal ureter, consumer sales representative ?A7: ??Ureter pelvic junction, consumer sales representative ?A8-A11: ??Ill-defined area with adjacent sinus fat (A8 and A9 represent one ? section, bisected) ?A12-A13: ??Tumor bed i n association with renal pelvis and sinus/hilar fat, bisected ?A14: ??Renal pelvis with perinephric fat, representati ve ?A15: ??Renal pelvis with tumor bed and sinus fat, repr esentative ?A16: ??Granular nodule, entirely submitted ?A17: ??Renal cortex and pyramid, consumer sales representative ?A18: ??Adrenal gland, consumer sales representative ?A19: ??Two lymph nodes ?A20: ??Three lymph nodes ?A21: ??Two lymph nodes ?A22: ??One lymph node trisected ?A23: ??Two lymph nodes ?A24: ??Two lymph nodes ?A25-A34: ??Block of ?? matted lymph node(s), serially sectioned and entirely ? submitted (A26 and A2 7 are bisected sections, A28 and A29 is one section ? bisected, A30 and A31 is one section trisected.) ??OP/ajw Specimen (Source) Anatomical Collection Method Collection Time Re ceived Time Location / / Volume Laterality 06/16/2021 10:52 PM EDT Izabella Davis MD PATHOLOGY/CYTOLOGY ORDERABLE S Performing Organization Address City/[facility]/[place] [address] Specimen to Pathology (06/16/2021 10:52 PM EDT) Specimen Anatomical Collection Method Collection Time Receive d Time (Source) Location / / Volume Laterality AP Specimen 06/16/2021 10:52 06/16/2021 PM EDT 10:52 PM EDT Narrative [facility]Y - 06/16/2021 10:52 PM EDT Specimen requisition ordered. ??Separate Pathology report to follow Izabella Davis MD PATHOLOGY/CYTOLOGY ORDERABLE S Performing Organization Address City/[facility] [place] [address] POCT Glucose (06/16/2021 9:43 PM EDT) athologist Signature POC Glucose 180 65 - 199 EBONY ISELA mg/dL [facility] Comment: Supplemental ranges: <140 mg/dL before meals <180 mg/dL all other times of the day Specimen Anatomical Collection Method Collection Time Receive d Time (Source) Location / / Volume Laterality Blood 06/16/2021 9:43 PM 9:43 EDT PM EDT Izabella Davis MD POINT OF CARE TEST ORDERABLE S Performing Organization Address City/[facility]/[place] [address] (ABNORMAL) POCT Glucose (06/16/2021 8:28 PM EDT) athologist Signature POC Glucose 207 (H) 65 - 199 EBONY ISELA mg/dL [facility] Comment: Supplemental ranges: <140 mg/dL before meals <180 mg/dL all other times of the day Specimen Anatomical Collection Method Collection Time Receive d Time (Source) Location / / Volume Laterality Blood 06/16/2021 8:28 PM 8:28 EDT PM EDT Izabella Davis MD POINT OF CARE TEST ORDERABLE S Performing Organization Address City/State/ZIP [place] [address] (ABNORMAL) BLOOD GAS 2 ARTERIAL (06/16/2021 5:52 PM EDT) Analysis Performed At Patho logist Time Signature pH Art 7.36 7.35 - [facility] 7.45 [facility] pCO2 Art 43 35 - [address] [facility] mmHg [facility] pO2 Art 160 (H) 85 - 104 [facility] LABORATORY HCO3 Art 23.4 20.0 - [facility] 26.0 [facility] mmol/L [facility] LABORATORY BE Art -2.1 -3.0 - 3.[address] [facility] mmol/L [facility] Hgb Blood Gas 10.2 (L) 11.7 - [facility] 15.5 gm/dL [facility] O2HB Art 98.2 (H) 94.0 - [facility] 97.0 % [facility] COHB Art 0.3 % [facility] Comment: Nonsmokers: 0.5-1.5% COHB Smokers: Variable, but usually less than 10% Toxic: 20-30% COHB Lethal: Greater than 60% COHB METHB Art 0.3 <=1.5 % [facility] LABORATORY Na Whole Blood 138 135 - 145 mmol/L [facility] K Whole Blood 4.2 3.5 - 5.0 mmol/L [facility] Comment: Please note: Patients with WBC >100,000 may have falsely elevated Potassium levels. Contact the Clinical Chemistry L aboratory if there are any questions. ICa Whole Blood 1.19 1.15 - 1.33 mmol/L [facility] Comment: Note: ??Total bilirubin higher than 20 m g/dL may lead to falsely low ionized calcium. CL Whole Blood 108 (H) 98 - 107 mmol/L [facility] Gluc Whole Bld 124 65 - 199 mg/dL [facility] Comment: Diabetes: >=200 mg/dL plus symp toms. Lactate WB 1.8 0.5 - 2.2 mmol/L [facility] LABORATORY Specimen Anatomical Collection Method Collection Time Receive d Time (Source) Location / / Volume Laterality Blood 06/16/2021 5:52 PM 1 5:52 EDT PM EDT Izabella Davis MD CHEMISTRY ORDERABLES Performing Organization Address City/State/ZIP Code Phon e Number [address] POCT Glucose (06/16/2021 2:41 PM EDT) athologist Signature POC Glucose 101 65 - [address] [facility]dL [facility] Comment: Supplemental ranges: <140 mg/dL before meals <180 mg/dL all other times of the day Specimen Anatomical Collection Method Collection Time Receive d Time (Source) Location / / Volume Laterality Blood 06/16/2021 2:41 PM 1 2:41 EDT PM EDT Izabella Davis MD POINT OF CARE TEST ORDERABLE S Performing Organization Address City/[facility]/ZIP Code Phon e Number [address] POCT Glucose (06/16/2021 2:01 PM EDT) P athologist Signature POC Glucose 70 65 - 199 [facility] Comment: Supplemental ranges: <140 mg/dL before meals <180 mg/dL all other times of the day Specimen Anatomical Collection Method Collection Time Receive d Time (Source) Location / / Volume Laterality Blood 06/16/2021 2:01 PM 1 2:01 EDT PM EDT Izabella Davis MD POINT OF CARE TEST ORDERABLE S Performing Organization Address City/State/[place] [address] POCT Glucose (06/16/2021 11:27 AM EDT) P athologist Signature POC Glucose 119 65 - [address] [facility] mg/dL [facility] Comment: Supplemental ranges: <140 mg/dL before meals <180 mg/dL all other times of the day Specimen Anatomical Collection Method Collection Time Receive d Time (Source) Location / / Volume Laterality Blood 06/16/2021 11:27 06/16/2021 AM EDT 11:27 AM EDT Izabella Davis MD POINT OF CARE TEST ORDERABLE S Performing Organization Address City/State/ZIP Code Phon e Number [address] Type and Screen Validity (06/16/2021 10:35 AM EDT) [facility] Method [place] Signature T&S only valid [facility] ISELA at [facility] Comment: This Type and Screen result is only valid at the [facility] Specimen Anatomical Collection Method Collection Time Receive d Time (Source) Location / / Volume Laterality Blood 06/16/2021 10:35 06/16/2021 AM EDT 10:42 AM EDT Resulting Agency Comment Spec In Lab Izabella Davis MD BLOOD BANK ORDERABLES Performing Organization Address City/State/ZIP Code Phon e Number [address] ABORH Recheck Status (06/16/2021 10:35 AM EDT) [facility] Method Time Signature ABORH Type Completed [facility] LABORATORY Specimen Anatomical Collection Method Collection Time Receive d Time (Source) Location / / Volume Laterality Blood 06/16/2021 10:35 06/16/2021 AM EDT 10:42 AM EDT Resulting Agency Comment Spec In Lab Izabella Davis MD BLOOD BANK ORDERABLES Performing Organization Address City/[facility]/ZIP Code Phon e Number [address] Antibody screen (06/16/2021 10:35 AM EDT) [facility] Method Time Signature Ab Screen Negative [facility] LABORATORY Expires at 06/19/2021 EBONY MTZ [id number] on: [facility] LABORATORY Specimen Anatomical Collection Method Collection Time Receive d Time (Source) Location / / Volume Laterality Blood 06/16/2021 10:35 06/16/2021 AM EDT 10:38 AM EDT Resulting Agency Comment Spec In Lab Izabella Davis MD BLOOD BANK ORDERABLES Performing Organization Address City/State/[place] [address] ABO/Rh Typing (06/16/2021 10:35 AM EDT) P athologist Signature ABORh Type A Neg [facility] LABORATORY Specimen Anatomical Collection Method Collection Time Receive d Time (Source) Location / / Volume Laterality Blood 06/16/2021 10:35 06/16/2021 AM EDT 10:38 AM EDT Resulting Agency Comment Spec In Lab Izabella Davis MD BLOOD BANK ORDERABLES Performing Organization Address City/[facility]/[place] [address] documented in this encounter Visit Diagnoses Diagnosis Malignant neoplasm of right renal pelvis Malignant neoplasm of renal pelvis Tachycardia Tachycardia, unspecified CKD (chronic kidney disease), stage II Chronic kidney disease, Stage II (mild) Malignant neoplasm of right kidney Type 2 diabetes mellitus, with long-term current use of insulin documented in this encounter Admitting Diagnoses Diagnosis Renal cancer Malignant neoplasm of kidney, except pel vis documented in this encounter Administered Medications Inactive Administered Medications - up to 3 most recent administrations Medication Order MAR Action Action Date Dose Rate Site acetaminophen (Tylenol) tablet Given 06/16/2021 11:56 AM EDT 1,0 00 mg 1,000 mg 1,000 mg, Oral, ONCE, 1 dose, On Mon06/16/21 at 1200, Administer with SIP of H2O only., Day of Surgery (Day of Procedure), Routine acetaminophen (Tylenol) tablet 975 mg Given 06/24/2021 8:16 AM EDT 975 mg 975 mg, Oral, EVERY 6 HOURS SCHEDULED, First dose on Melany 06/17/21 at 0000, Until Discontinued, Maximum dose of acetaminophen is 4000 mg from all sources in 24 hours. When ordered for pain, acetaminophen should be given even when other ordered pain medications are indicated. , Routine Given 06/24/2021 3:02 AM EDT 975 mg Given 06/23/2021 8:33 PM EDT 975 mg amLODIPine (Norvasc) tablet 5 mg Given 06/24/2021 8:17 AM EDT 5 mg 5 mg, Oral, DAILY, First dose on Mon06/23/21 at 1215, Until Discontinued, Routine Given 06/23/2021 1:46 PM EDT 5 mg bisacodyL (Dulcolax) suppository 10 mg Given 06/22/2021 10:02 AM EDT 10 mg 10 mg, Rectal, DAILY, First dose (after last modification) on Mon06/18/21 at 1945, Until Discontinued, Administer if needed per patient's routine or if no bowel movement within 48 hours to achieve: (1) One bowel movement at least every 48 hours, AND (2) Without straining. - If multiple PRN bowel medications ordered, start with magnesium hydroxide, then bisacodyl. - Multiple medications may be given concomitantly for constipation., Routine Given 06/21/2021 6:51 PM EDT 10 mg Given 06/20/2021 4:16 PM EDT 10 mg calcium carbonate (Tums) chewable tablet Given 06/20/2021 8:32 P M EDT 1,000 mg 1,000 mg 1,000 mg, Oral, DAILY PRN, Starting on Mon06/18/21 at 1529, Until Mon06/24/21 at 1539, Heartburn, Routine Given 06/20/2021 2:43 PM EDT 1,000 mg Given 06/18/2021 3:47 PM EDT 1,000 mg dextrose 10% infusion 250 mL, at 1,000 mL/hr, Intravenous, SOLO RY 30 MIN PRN, Starting on Mon06/16/21 at 2339, Until Mon06/24/21 at 1539, For BG 50-70 mg/dL: Oral treatment preferred:?? If able to drink, give 120 mL Juice or R egular (not diet) soda OR If NPO, give 15 gram glucose 40% oral gel massaged into buccal mucosa OR if unconscious or uncooperative, give 25 gram (250 mL) Dex trose 10% IV over 15 minutes per protocol OR, if no IV access, 1 mg Glucagon IM. * * For BG less than 50 mg/dL: Oral treatment preferred:?? If able to drink, give 240 mL Juice or Regular (not diet) soda OR If NPO, give 30 gram glucose 40% oral gel m assaged in buccal mucosa OR if unconscious or uncooperative, give 25 gram (250 mL) Dextrose 10% I V over 15 minutes per protocol OR, if no IV access, 1 mg Glucagon IM. Rech brianna BG in 30 minutes. May repeat juice/soda, gel, dextrose or gluc agon once per episode. For persistent hypoglycemia, consider longer-acting treatment for the duration of the active insulin. docusate sodium (Colace) capsule 100 mg Given 06/24/2021 8:17 AM EDT 100 mg 100 mg, Oral, 2 TIMES DAILY, First dose on Mon06/16/21 at 2345, Until Discontinued, Routine Given 06/23/2021 8:34 PM EDT 100 mg Given 06/23/2021 8:27 AM EDT 100 mg fentaNYL (pf) (50 mcg/mL) multi-dose Given 06/17/2021 12:56 AM E DT 25 mcg injection 25-50 mcg 25-50 mcg, Intravenous, EVERY 5 MIN PRN, Starting on Mon06/16/21 at 2229, Until Melany 06/17/21 at 0334, Pain, Give 25 mcg every 5 minutes PRN for mild to moderate pain (1-5) Give 50 mcg every 5 minutes PRN for moderate to severe pain (6-10). Hold for respiratory rate less than 10 per minute. Maximum dose 200 mcg over one hour, including OR administration. If ordered with HYDROmorphone or morphine, give HYDROmorphone or morphine first and use fentaNYL for breakthrough pain., PACU Recovery, Routine furosemide (Lasix) tablet 20 mg Given 06/24/2021 8:17 AM EDT 20 mg 20 mg, Oral, 2 TIMES DAILY, First dose on Mon06/21/21 at 1700, Until Discontinued, Routine Given 06/23/2021 4:50 PM EDT 20 mg Given 06/23/2021 8:27 AM EDT 20 mg gabapentin (Neurontin) capsule 300 mg Given 06/17/2021 2:03 PM EDT 300 mg 300 mg, Oral, ONCE, 1 dose, On Mon06/17/21 at 1430, Routine glucagon (Glucagen) (1 mg/mL) injection solution 1 mg 1 mg, Intramuscular, EVERY 30 MIN PRN, S tarting on Mon06/16/21 at 2339, Until Mon06/24/21 at 1539, Low blood sugar, For BG 50-70 mg/d L: Oral treatment preferred:?? If able to drink, give 120 mL Juice or Regular (not diet) soda OR If NPO, give 15 gram glucose 40% oral gel massaged into b uccal mucosa OR if unconscious or uncooperative, give 25 gr am (250 mL) Dextrose 10% IV over 15 minutes per protocol OR, if no IV access, 1 mg G lucagon IM. For BG less than 50 mg/dL: Oral treatment preferred:?? If able to drink, give 240 mL Juice or Regular (not diet) soda OR If NPO, give 30 gram gluco se 40% oral gel massaged in buccal mucosa OR if unconscious or uncooperative, give 25 gram (250 mL) Dextrose 10% IV over 15 minutes per protocol OR, if no IV access, 1 mg Glucago n IM. Recheck BG in 30 minutes. May repeat juice/soda, gel, dex trose or glucagon once per episode. For persistent hypoglycemia, consider longer -acting treatment for the duration of the active insulin., Routine glucose (GLUTOSE) 40% oral geL Given 06/16/2021 2:08 PM EDT 15 g 15 g, Buccal, EVERY 30 MIN PRN, Starting on Mon06/16/21 at 1404, Until Mon06/16/21 at 2341, Low blood sugar, For BG 50-70 mg/dL: Oral treatment preferred:?? If able to drink, give 120 mL Juice or Regular (not diet) soda OR If NPO, give 15 gram glucose 40% oral gel massaged into buccal mucosa OR if unconscious or uncooperative, give 12.5 gram (25 mL) Dextrose 50% IV OR, if no IV access, give 1 mg Glucagon IM. For BG less than 50 mg/dL: Oral treatment preferred:?? If able to drink, give 240 mL Juice or Regular (not diet) soda OR If NPO, give 30 gram glucose 40% oral gel massaged in buccal mucosa OR if unconscious or uncooperative, give 25 gram (50 mL) Dextrose 50% IV OR, if no IV access, give 1 mg Glucagon IM. Recheck BG in 30 minutes. May repeat juice, gel, dextrose or glucagon once per episode. To avoid extravasation, push Dextrose 50% SLOWLY (3 mL over 1 minute) in a patent, running IV, preferably a central line. For persistent hypoglycemia, consider longer-acting treatment for the duration of the active insulin. 1 tube contains 15 grams of glucose (net weight of tube = 37.5 grams., Routine glucose (GLUTOSE) 40% oral geL 15-30 g, Buccal, EVERY 30 MIN PRN, Starting on 05/28 at 2339, Until Mon06/24/21 at 1539, Low blood sugar, For BG 50-70 mg/d L: Oral treatment preferred:?? If able to drink, give 120 mL Juice or Regular (not diet) soda OR If NPO, give 15 gram glucose 40% oral gel massaged into b uccal mucosa OR if unconscious or uncooperative, give 25 gr am (250 mL) Dextrose 10% IV over 15 minutes per protocol OR, if no IV access, 1 mg G lucagon IM. For BG less than 50 mg/dL: Oral treatment preferred:?? If able to drink, give 240 mL Juice or Regular (not diet) soda OR If NPO, give 30 gram gluco se 40% oral gel massaged in buccal mucosa OR if unconscious or uncooperative, give 25 gram (250 mL) Dextrose 10% IV over 15 minutes per protocol OR, if no IV access, 1 mg Glucago n IM. Recheck BG in 30 minutes. May repeat juice/soda, gel, dex trose or glucagon once per episode. For persistent hypoglycemia, consider longer -acting treatment for the duration of the active insulin. 1 tube contains 15 grams of glucose (n et weight of tube = 37.5 grams., Routine heparin (porcine) (5,000 units/1 mL) Given 06/16/2021 11:54 AM E DT 5,000 Units subcutaneous injection 5,000 Units 5,000 Units, Subcutaneous, FRENCH CORD BINDER TO O.R., 1 dose, On Mon06/16/21 at 1200, Day of Surgery (Day of Procedure), Routine heparin (porcine) (5,000 units/1 mL) Given 06/24/2021 6:11 AM ED T 5,000 Units subcutaneous injection 5,000 Units 5,000 Units, Subcutaneous, EVERY 8 HOURS SCHEDULED, First dose on Mon06/16/21 at 2345, Until Discontinued, Routine Given 06/23/2021 11:32 PM EDT 5,000 Units Given 06/23/2021 1:49 PM EDT 5,000 Units HYDROmorphone (Dilaudid) (2 mg/mL) injection Given 4:57 AM EDT 0.3 mg solution 0.3 mg 0.3 mg, Intravenous, EVERY 2 HOURS PRN, Starting on Mon06/16/21 at 2323, Until Mon06/23/21 at 1925, Pain, for pain not controlled by PO meds, Routine HYDROmorphone (Dilaudid) tablet 2 mg Given 06/21/2021 6:52 PM EDT 2 mg 2 mg, Oral, EVERY 4 HOURS PRN, Starting on Mon06/16/21 at 2323, Until Mon06/23/21 at 0833, Pain, for mild pain (1-3), May give an additional 2 mg once if pain not relieved in 30-60 minutes., Routine Given 06/21/2021 12:42 PM EDT 2 mg Given 06/20/2021 10:29 PM EDT 2 mg HYDROmorphone (Dilaudid) tablet 2-4 mg Given 06/24/2021 9:01 AM EDT 2 mg 2-4 mg, Oral, EVERY 6 HOURS PRN, Starting on Mon06/23/21 at 2223, Until Mon06/24/21 at 1539, Pain, Mild pain 2mg, moderate severe 4mg. (can also take 2mg for severe per patient preference), Routine Given 06/24/2021 3:02 AM EDT 2 mg HYDROmorphone (Dilaudid) tablet 4 mg Given 06/21/2021 5:53 PM EDT 4 mg 4 mg, Oral, EVERY 4 HOURS PRN, Starting on Mon06/16/21 at 2323, Until Mon06/23/21 at 0833, Pain, for moderate pain (4-6), May give an additional 2 mg once if pain not relieved in 30-60 minutes., Routine Given 06/21/2021 4:43 AM EDT 4 mg Given 06/20/2021 3:59 AM EDT 4 mg HYDROmorphone (Dilaudid) tablet 4 mg Given 06/23/2021 1:48 PM EDT 4 mg 4 mg, Oral, EVERY 4 HOURS PRN, Starting on Mon06/23/21 at 0832, Until Mon06/23/21 at 1925, Pain, for pain 6-10, May give an additional 2 mg once if pain not relieved in 30-60 minutes., Routine HYDROmorphone (Dilaudid) tablet 6 mg Given 06/23/2021 4:53 AM EDT 6 mg 6 mg, Oral, EVERY 4 HOURS PRN, Starting on Mon06/16/21 at 2323, Until Mon06/23/21 at 0833, Pain, for severe pain (7-10), May give an additional 2 mg once if pain not relieved in 30-60 minutes., Routine Given 06/22/2021 9:06 PM EDT 6 mg Given 06/22/2021 4:59 PM EDT 6 mg insulin glargine (Lantus) (100 unit/mL) Given 06/17/2021 12:55 P M EDT 30 Units subcutaneous injection vial 30 Units 30 Units, Subcutaneous, EVERY 24 HOURS, First dose on Mon06/17/21 at 1130, Until Discontinued, STAT insulin glargine (Lantus) (100 unit/mL) Given 06/24/2021 8:23 AM EDT 45 Units subcutaneous injection vial 45 Units 45 Units, Subcutaneous, EVERY 24 HOURS, First dose on Mon06/18/21 at 1530, Until Discontinued, Routine Given 06/23/2021 8:34 AM EDT 45 Units Given 06/22/2021 8:36 AM EDT 45 Units insulin lispro (HumaLOG;Admelog) (100 Given 06/24/2021 12:33 PM EDT 8 Units unit/mL) subcutaneous injection vial 0-15 Units 0-15 Units, Subcutaneous, 3 TIMES DAILY WITH MEALS, First dose (after last modification) on Mon06/18/21 at 1230, Until Discontinued, [employer] Give 1 unit for every 6 grams carbohydrate. Hold if not eating or if BG less than 70 mg/dL., Routine Given 06/24/2021 8:14 AM EDT 8 Units Given 06/23/2021 12:09 PM EDT 4 Units insulin lispro (HumaLOG;Admelog) (100 Given 06/18/2021 8:29 AM E DT 5 Units unit/mL) subcutaneous injection vial 0-8 Units 0-8 Units, Subcutaneous, 3 TIMES DAILY WITH MEALS, First dose on [facility] 06/17/21 at 1200, Until Discontinued, [employer] Give 1 unit for every 10 grams carbohydrate. Hold if not eating or if BG less than 70 mg/dL., Routine Given 06/17/2021 7:51 PM EDT 3 Units insulin lispro (HumaLOG;Admelog) (100 Given 06/24/2021 4:28 AM E DT 1 Units unit/mL) subcutaneous injection vial 1-6 Units 1-6 Units, Subcutaneous, EVERY 4 HOURS SCHEDULED, First dose (after last modification) on [facility] 06/17/21 at 1200, Until Discontinued, CORRECTION BOLUS Custom correction factor 20 BG 140 - 160 Give 1 units BG 161 - 180 Give 2 units BG 181 - 200 Give 3 units BG 201 - 220 Give 4 units BG 221 - 240 Give 5 units BG greater than 240, give 6 units and recheck BG in 2 hours. If BG remains GREATER THAN 240, GIVE 6 units (no more than two times) & call for new basal insulin orders. If less than 240 after two hours, give no insulin and resume prior schedule., Routine Given 06/23/2021 8:35 PM EDT 1 Units Given 06/23/2021 12:09 PM EDT 3 Units insulin lispro (HumaLOG;Admelog) (100 Given 06/17/2021 4:00 AM E DT 4 Units unit/mL) subcutaneous injection vial 2-12 Units 2-12 Units, Subcutaneous, EVERY 4 HOURS SCHEDULED, First dose on [facility] 06/17/21 at 0000, Until Discontinued, CORRECTION BOLUS [2-12 Units] Resistant Sliding Scale (BG in mg/dL) Correction Factor 10 (1 unit of insulin is expected to drop the glucose 10 mg/dL) BG 140 - 160 Give 2 units BG 161 - 180 Give 4 units BG 181 - 200 Give 6 units BG 201 - 220 Give 8 units BG 221 - 240 Give 10 units BG greater than 240, give 12 units and recheck BG in 2 hours. - If recheck BG is LESS than 240, give no insulin and resume schedule. - If recheck BG is GREATER than 240, give 12 units and repeat BG in 2 hours (no more than 3 times) & call for new insulin orders. DO NOT hold if NPO, unless specifically directed to do so by written order. Per Blood Glucose Monitoring Policy, re-check a BG of > 240 mg/dL in 2 hours, Routine Given 06/17/2021 2:04 AM EDT 12 Units Given 06/17/2021 12:00 AM EDT 12 Units iohexoL (Omnipaque) (350 mg/mL) injection Given 06/23/2021 1 0:56 AM EDT 150 mLs solution 250 mL 250 mL, Other, ONCE PRN, 1 dose, Starting on Mon06/23/21 at 1022, Until Mon06/23/21 at 1056, Per Protocol, Warning Vesicant/Irritant Medication , Routine labetaloL (Normodyne) (5 mg/mL) injectio n solution 10 mg 10 mg, Intravenous, EVERY 4 HOURS PRN, S tarting on Mon06/22/21 at 1802, Until Mon06/24/21 at 1539, High Blood Pressure, For SBP>180, Rou brendan lidocaine (Lidoderm) 5% Patch Applied 06/24/2021 8:14 AM 3 patches 07- Back Lower topical patch 3 patch EDT (Left) 3 patch, Transdermal, EVERY 24 HOURS, First dose on Mon06/17/21 at 0830, Until Discontinued, Apply patch(es) for 12 hours, and then remove for 12 hours., Routine Patch Applied 06/23/2021 8:35 AM EDT 3 patches 07- Back Lower (Left) Patch Applied 06/22/2021 8:25 AM EDT 3 patches 07- Back Lower (Left) lidocaine (Lidoderm) topical patch REMOV AL Transdermal, EVERY 24 HOURS, First dose on Mon06/17/21 at 2015, Until Discontinued, Remove lidocaine 5% patch metoprolol tartrate (Lopressor) tablet 12.5 Given 05/28 8:17 AM EDT 12.5 mg mg 12.5 mg, Oral, EVERY 12 HOURS SCHEDULED (2 times per day), First dose on Melany 06/17/21 at 0915, Until Discontinued, Routine Given 06/23/2021 8:34 PM EDT 12.5 mg Given 06/23/2021 8:27 AM EDT 12.5 mg ondansetron (pf) (Zofran) (2 mg/mL) injection 4 Given 06/19/2021 6:26 AM EDT 4 mg mg 4 mg, Intravenous, EVERY 8 HOURS PRN, Starting on Mon06/16/21 at 2322, Until Mon06/24/21 at 1539, Nausea, May repeat times one in 30 minutes if ineffective. If multiple antiemetics are ordered, use ondansetron first., Recovery (Recovery-Hospital Unit) Given 06/18/2021 3:11 AM EDT 4 mg Given 06/17/2021 9:56 AM EDT 4 mg ondansetron (Zofran) tablet 4 mg Given 06/20/2021 3:06 AM EDT 4 mg 4 mg, Oral, EVERY 8 HOURS PRN, Starting on Mon06/16/21 at 2322, Until Melany 06/24/21 at 1539, Nausea, Vomiting, If multiple antiemetics are ordered, use ondansetron first. PO Preferred. If patient unable to take PO, may give IV if ordered. May repeat times one in 45 minutes if ineffective., Recovery (Recovery-Hospital Unit), Routine pantoprazole EC (Protonix) tablet 40 mg Given 06/24/2021 8:17 AM EDT 40 mg 40 mg, Oral, DAILY, First dose on Melany 06/17/21 at 0915, Until Discontinued, DO NOT CRUSH OR OPEN, Routine Given 06/23/2021 8:27 AM EDT 40 mg Given 06/22/2021 8:24 AM EDT 40 mg polyethylene glycoL (Miralax) packet 17 g Given 06/22/2021 12:00 AM EDT 17 g 17 g, Oral, DAILY PRN, Starting on Melany 06/17/21 at 1315, Until Melany 06/24/21 at 1539, Constipation, Routine Given 06/20/2021 5:16 PM EDT 17 g Given 06/18/2021 2:59 PM EDT 17 g prochlorperazine (Compazine) (5 mg/mL) Given 06/17/2021 1:47 AM EDT 5 mg injection 5 mg 5 mg, Intravenous, EVERY 30 MIN PRN, 2 doses, Starting on Mon06/16/21 at 2229, Until Mon06/17/21 at 0334, Nausea, Maximum total dose of 10 mg (including OR administration). If multiple antiemetics ordered, use ondansetron first and if ineffective use prochlorperazine second and if ineffective use promethazine, PACU Recovery, Routine prochlorperazine (Compazine) (5 mg/mL) Given 06/22/2021 11:40 PM EDT 5 mg injection 5 mg 5 mg, Intravenous, EVERY 6 HOURS PRN, Starting on Mon06/17/21 at 0503, Until Mon06/24/21 at 1539, Nausea, Routine Given 06/19/2021 12:56 PM EDT 5 mg Given 06/17/2021 5:10 AM EDT 5 mg senna (Senokot) tablet 8.6 mg Given 06/24/2021 8:17 AM EDT 8.6 mg 8.6 mg, Oral, 2 TIMES DAILY, First dose on Mon06/17/21 at 1330, Until Discontinued, Routine Given 06/23/2021 8:34 PM EDT 8.6 mg Given 06/23/2021 8:27 AM EDT 8.6 mg sodium chloride 0.9 % (flush) (BD PosiFlush Given 06/23/2021 8:2 7 AM EDT 5 mLs Normal Saline 0.9) flush 5 mL 5 mL, Intravenous, 2 TIMES DAILY, First dose on Mon06/16/21 at 2345, Until Discontinued, Recovery (Recovery-Hospital Unit), Routine Given 06/22/2021 9:00 PM EDT 5 mLs Given 06/21/2021 9:16 PM EDT 5 mLs sodium chloride 0.9 % (flush) (BD PosiFlush Given 06/20/2021 1:07 AM EDT 10 mLs Normal Saline 0.9) flush 5-20 mL 5-20 mL, Intravenous, EVERY 1 MIN PRN, Starting on Mon06/16/21 at 2322, Until Mon06/24/21 at 1539, flush, Flush pertains to all indwelling lines. Flush per protocol found in the job aid using the link provided on this medication record., Recovery (Recovery-Hospital Unit), Routine sodium chloride 0.9% infusion New Bag 06/18/2021 9:06 AM EDT 100 mL/hr 100 mL/hr 100 mL/hr, Intravenous, CONTINUOUS, Starting on Mon06/16/21 at 2345, Until Mon06/20/21 at 1203 New Bag 06/17/2021 9:57 AM EDT 100 mL/hr 100 mL/hr New Bag 06/16/2021 11:45 PM EDT 100 mL/hr 100 mL/hr sodium phosphates (FLEET) 19-7 gram/118 mL Given 06/22 9:11 AM EDT 1 Bottle rectal enema 1 Bottle 1 Bottle, Rectal, ONCE, 1 dose, On Mon06/21/21 at 2300, Routine sodium phosphates (FLEET) 19-7 gram/118 mL rectal enema 1 Bottle 1 Bottle, Rectal, DAILY PRN, Starting on Mon06/22/21 at 0657, Until Mon06/24/21 at 1539, Constipation, Routine sterile water for irrigation Given 06/23/2021 11:15 AM EDT 150 mLs 250 mL, Irrigation, ONCE, 1 dose, On Mon06/23/21 at 1115, Routine sucralfate (Carafate) (100 mg/mL) oral liquid 1 Given 06/24/2021 11:48 AM EDT 1 g g 1 g, Oral, 4 TIMES DAILY BEFORE MEALS & NIGHTLY, First dose on Mon06/17/21 at 0915, Until Discontinued, Routine Given 06/24/2021 8:28 AM EDT 1 g Given 06/23/2021 8:34 PM EDT 1 g documented in this encounter Active and Recently Administered Medications Times are shown in EDT. Scheduled Medication Order 06/22/2021 06/23/2021 06/24/2021 acetaminophen (Tylenol) tablet 975 mg 0434 (Given - Pr ovider: Nichelle Conti RN)0867 (Given - Provider: Nadya Adam LPN)1444 (Given - Provider: Nadya Adam LPN)210 (Given - Provider: Sharon Hitchcock, MORTEZA) 0453 (Given - Provider: Sharon Hitchcock, MORTEZA)0826 (Not Given - Provider: Siri Rodríguez RN - Reason: Contraindicated)1427 (Given - Provider: Siri Rodríguez RN)203 (Given - Provider: Leeanne Lewis RN) 0302 (Given - Provider: Leeanne Lewis RN)0816 (Given - Provider: Papa Bullock RN) 975 mg, Oral, EVERY 6 HOURS SCHEDULED, F irst dose on Melany 06/17/21 at 0000, Until Discontinued, Maximum dose of acetaminophen is 4000 mg from all sources in 24 hours. When ordered for pain, acetaminophen should be given even when other ordered pain medications are indicated. , Routine amLODIPine (Norvasc) tablet 5 mg 1346 (Given - P rovider: Siri Rodríguez RN) 0817 (Given - Provider: Papa Bullock RN) 5 mg, Oral, DAILY, First dose on 05/28 at 1215, Until Discontinued, Routine bisacodyL (Dulcolax) suppository 10 mg 1002 (Given - P rovider: Nadya Adam LPN) 0832 (Not Given - Provider: Siri Rehman RN - Reason: Patient/family refused) 0900 (Not Given - Provider: Papa davidson RN - Reason: Patient/family refused) 10 mg, Rectal, DAILY, First dose (after last modification) on Mon06/18/21 at 1945, Until Discontinued, Administer if needed per patient's routine or if no bowel movement within 48 hours to achieve: (1) One bowel movement at least every 48 juana rs, AND (2) Without straining. - If multiple PRN bowel medications ordered, start with magnesium hydroxide, then bisacodyl. - Multiple medications may be given concomitantly for constipation., Routine docusate sodium (Colace) capsule 100 mg 0824 (Given - Provider: Nadya Adam LPN)210 (Given - Provider: Sharon Hitchcock RN) 0827 (Given - Provider: Siri Rodríguez RN)203 (Given - Provider: Leeanne Lewis RN) 0817 (Given - Provider: Papa Bullock, MORTEZA) 100 mg, Oral, 2 TIMES DAILY, First dose on Mon06/16/21 at 2345, Until Discontinued, Routine furosemide (Lasix) tablet 20 mg 0824 (Given - Provider : Nadya Adam LPN)1700 (Given - Provider: Nadya Adam LPN) 0827 (Given - Provider: Siri Rodríguez, RN)1650 (Given - Provider: Fabiana Tsang RN) 0817 (Given - Provider: Papa Bullock, MORTEZA) 20 mg, Oral, 2 TIMES DAILY, First dose o n Mon06/21/21 at 1700, Until Discontinued, Routine heparin (porcine) (5,000 units/1 mL) subcutaneous inje ction 5,000 Units 0503 (Given - Provider: Nichelle Conti RN)1446 (Given - Provider: Nadya Adam LPN)2107 (Given - Provider: Sharon Htichcock, MORTEZA) 0600 (Given - Provider: Sharon Hitchcock, RN)1349 (Given - Provider: Siri Rodríguez, MORTEZA)2332 (Given - Provider: Leeanne Lewis RN) 0611 (Given - Provider: Doni Muller RN) 5,000 Units, Subcutaneous, EVERY 8 HOURS SCHEDULED, First dose on Mon06/16/21 at 2345, Until Discontinued, Routine insulin glargine (Lantus) (100 unit/mL) subcutaneous i njection vial 45 Units 0836 (Given - Provider: Nadya Adam LPN) 0834 (Given - Provider: Siri Rodríguez, MORTEZA) 0823 (Given - Provider: Papa ceron RN) 45 Units, Subcutaneous, EVERY 24 HOURS, First dose on Mon06/18/21 at 1530, Until Discontinued, Routine insulin lispro (HumaLOG;Admelog) (100 un it/mL) subcutaneous injection vial 0-15 Units 0836 (Given - Provider: Nadya siddiqi LPN)1144 (Given - Provider: Nadya Adam LPN)1647 (Given - Provider: Nadya Adam LPN) 0836 (Hold - Provider: Siri Rodríguez RN - Reason: Order parameters not met - Comment: pt not eating)1209 (Given - Provider: Siri Rodríguez RN)1700 (Not Given - Provider: Fabiana Tsang RN - Reason: Order parameters not met) 0814 (Given - Provider: Papa Bullock RN)1233 (Given - Provider: Papa Bullock RN) 0-15 Units, Subcutaneous, 3 TIMES DAILY WITH MEALS, First dose (after last modification) on Mon06/18/21 at 1230, Until Discontinued, ME[employer] ASS[employer]IATED Give 1 unit for every 6 grams carbohydrate. Hold if not eating or if BG less than 70 mg/dL., Routine insulin lispro (HumaLOG;Admelog) (100 un it/mL) subcutaneous injection vial 1-6 Units(Linked Group 1) 0039 (Given - Provider: Nichelle Conti RN - Comment: BG 182)0400 (Not Given - Provider: Nichelle Conti RN - Reason: Order parameters not met - Comment: BG 95) 0000 (Given - Provider: Sharon Hitchcock RN)0400 (Not Given - Provider: Sharon Hitchcock RN - Reason: Order parameters not met - Comment: Blood sugar 117)0832 (Given - Provider: Siri Rodríguez RN)1209 (Given - Provider: Siri Rodríguez RN) 0000 (Not Given - Provider: Leeanne Lewis RN - Reason: Order parameters not met)0428 (Given - Provider: Leeanne Lewis RN)0800 (Not Given - Provider: Papa Bullock RN - Reason: Order parameters not met - Comment: BG 137) 1-6 Units, Subcutaneous, EVERY 4 HOURS S CHEDULED, First dose (after last modification) on Mon06/17/21 at 1200, Until Discontinued, CORRECTION BOLUS Custom correction factor 20 BG 140 - 160 Give 1 un 0718 (Not Given - Provider: Nadya Adam LPN - Reason: Order parameters not met)1150 (Not Given - Provider: Nadya Adam LPN - Reason: Order parameters not met) 1600 (Not Given - Provider: Fabiana Tsang RN - Reason: Order parameters not met)2034 (Given - Provider: Leeanne Lewis, RN) 1199 (Not Given - Provider: Papa Bullock RN - Reason: Order parameters not met - Comment: BG 130) its BG 161 - 180 Give 2 units BG 181 - 2 00 Give 3 units BG 201 - 220 Give 4 units BG 221 - 240 Give 5 units BG greater than 240, give 6 units and recheck BG in 2 hours. If BG remains GREATER THAN 240, G 1600 (Not Given - Provider: Nadya Adam LPN - Reason: Order parameters not met)1999 (Not Given - Provider: Sharon Hitchcock RN - Reason: Order parameters not met - Comment: Blood sugar 109) JAYLA 6 units (no more than two times) & c all for new basal insulin orders. If less than 240 after two hours, give no insulin and resume prior schedule., Routine lidocaine (Lidoderm) 5% topical patch 3 patch(Linked G roup 2) 824 (Patch Applied - Provider: Nadya Adam LPN) 08 (Patch Applied - Provider: Siri Rodríguez RN) 08 (Patch Applied - Provider: Papa Bullock RN) 3 patch, Transdermal, EVERY 24 HOURS, Fi rst dose on Mon06/17/21 at 0830, Until Discontinued, Apply patch(es) for 12 hours, and then remove for 12 hours., Routine lidocaine (Lidoderm) topical patch REMOVAL(Linked Grou p 2) 2014 (Patch Removed - Provider: Sharon Hitchcock RN) 2014 (Patch Removed - Provider: Leeanne wallace RN) Transdermal, EVERY 24 HOURS, First dose on Mon06/17/21 at 2014, Until Discontinued, Remove lidocaine 5% patch metoprolol tartrate (Lopressor) tablet 12.5 mg 0823 (G iven - Provider: Vanda Adam LPN)2107 (Given - Provider: Sharon Hitchcock RN) 08 (Given - Provider: Siri Rodríguez, MORTEZA)2033 (Given - Provider: Leeanne Lewis, MORTEZA) 08 (Given - Provider: Papa Bullock RN) 12.5 mg, Oral, EVERY 12 HOURS SCHEDULED (2 times per day), First dose on Mon06/17/21 at 0915, Until Discontinued, Routine pantoprazole EC (Protonix) tablet 40 mg 0824 (Given - Provider: Nadya Adam LPN) 08 (Given - Provider: Siri Rodríguez, MORTEZA) 08 (Gi bebeto - Provider: Papa Bullock, MORTEZA) 40 mg, Oral, DAILY, First dose on Mon at 0915, Until Discontinued, DO NOT CRUSH OR OPEN, Routine senna (Senokot) tablet 8.6 mg 08 (Given - Provider: Nadya Adam LPN)2106 (Given - Provider: Sharon Hitchcock RN) 826 (Given - Provider: Siri Rodríguez RN)2033 (Given - Provider: Leeanne Lewis, MORTEZA) 08 (Given - Provider: Papa Bullock RN) 8.6 mg, Oral, 2 TIMES DAILY, First dose on Mon06/17/21 at 1330, Until Discontinued, Routine sodium chloride 0.9 % (flush) (BD PosiFlush Normal Mike ine 0.9) flush 5 mL 2099 (Given - Provider: Sharon Hitchcock, MORTEZA) 826 (Given - Provider: Siri Rodríguez, MORTEZA)2034 (Not Given - Provider: Leeanne Lewis, MORTEZA - Reason: Loss of access) 0819 (Not Given - Provider: Papa davidson RN - Reason: Loss of access)0900 (Not Given - Provider: Papa Bullock RN - Reason: Loss of access) 5 mL, Intravenous, 2 TIMES DAILY, First dose on Mon06/16/21 at 2345, Until Discontinued, Recovery (Recovery-Hospital Unit), Routine sodium phosphates (FLEET) 19-7 gram/118 mL rectal enem a 1 Bottle (COMPLETED) 0911 (Given - Provider: Nadya Adam LPN) 1 Bottle, Rectal, ONCE, 1 dose, On Mon06/21/21 at 2300, Routine sterile water for irrigation (COMPLETED) 1115 (Given - Provider: Leandra Keys - Comment: [id number]) 250 mL, Irrigation, ONCE, 1 dose, On Mon06/23/21 at 1115, Routin e sucralfate (Carafate) (100 mg/mL) oral liquid 1 g 0718 (Given - Provider: Nadya Adam LPN)1144 (Given - Provider: Nadya Adam LPN)1659 (Given - Provider: Nadya Adam LPN)2107 (Given - Provider: Sharon Hitchcock RN) 0831 (Given - Provider: Siri Rodríguez RN)1206 (Given - Provider: Siri Rodríguez RN)1649 (Given - Provider: Fabiana Tsang RN)2034 (Given - Provider: Leeanne Lewis RN) 0828 (Given - Provider: Papa Bullock RN)1148 (Given - Provider: Papa Bullock RN) 1 g, Oral, 4 TIMES DAILY BEFORE MEALS & NIGHTLY, First dose on Mon06/17/21 at 0915, Until Discontinued, Routine PRN Medication Order 06/22/2021 06/23/2021 06/24/2021 calcium carbonate (Tums) chewable tablet 1,000 mg 1,000 mg, Oral, DAILY PRN, Starting on ri 06/18/21 at 1529, Until Mon06/24/21 at 1539, Heartburn, Routine dextrose 10% infusion(Linked Group 3) 250 mL, at 1,000 mL/hr, Intravenous, SOLO RY 30 MIN PRN, Starting on Mon06/16/21 at 2339, Until Mon06/24/21 at 1539, For BG 50-70 mg/dL: Oral treatment preferred:?? If able to drink, give 120 mL Juice or Regular (not diet) soda OR If NPO, gi ve 15 gram glucose 40% oral gel massaged into buccal mucosa OR if unconscious or uncooperative, give 25 gram (250 mL) Dextrose 10% IV over 15 minutes per protocol OR, if no IV access, 1 mg Glucagon IM. For BG less than 50 mg/dL: Oral treatment preferred:?? If able to drink, give 240 mL Juice or Regular (not diet) soda OR If NPO, give 30 gram glucose 40% oral gel massaged in buccal mucosa OR if unco nscious or uncooperative, give 25 gram (250 mL) Dextrose 10% IV over 15 minutes per protocol OR, if no IV access, 1 mg Glucagon IM. Recheck BG in 30 minutes. Ma y repeat juice/soda, gel, dextrose or gl ucagon once per episode. For persistent hypoglycemia, consider longer-acting treatment for the duration of the active insulin. glucagon (Glucagen) (1 mg/mL) injection solution 1 mg(Linked Chayo up 3) 1 mg, Intramuscular, EVERY 30 MIN PRN, S tarting on Mon06/16/21 at 2339, Until Mon06/24/21 at 1539, Low blood sugar, For BG 50-70 mg/dL: Oral treatment preferred:?? If able to drink, give 120 mL Juice or Regular (not diet) soda OR If NPO, g jayla 15 gram glucose 40% oral gel massaged into buccal mucosa OR if unconscious or uncooperative, give 25 gram (250 mL) Dextrose 10% IV over 15 minutes per protoco l OR, if no IV access, 1 mg Glucagon IM. For BG less than 50 mg/dL: Oral treatment preferred:?? If able to drink, give 240 mL Juice or Regular (not diet) soda OR If NPO, give 30 gram glucose 40% oral gel massaged in buccal mucosa OR if unc onscious or uncooperative, give 25 gram (250 mL) Dextrose 10% IV over 15 minutes per protocol OR, if no IV access, 1 mg Glucagon IM. Recheck BG in 30 minutes. M ay repeat juice/soda, gel, dextrose or g lucagon once per episode. For persistent hypoglycemia, consider longer-acting treatment for the duration of the active insulin., Routine glucose (GLUTOSE) 40% oral geL(Linked Group 3) 15-30 g, Buccal, EVERY 30 MIN PRN, Start ing on Mon06/16/21 at 2339, Until Mon06/24/21 at 1539, Low blood sugar, For BG 50-70 mg/dL: Oral treatment preferred:?? If able to drink, give 120 mL Juice or Regular (not diet) soda OR If NPO, give 15 gram glucose 40% oral gel massaged into buccal mucosa OR if unconscious or uncooperative, give 25 gram (250 mL) Dextrose 10% IV over 15 minutes per protocol OR , if no IV access, 1 mg Glucagon IM. For BG less than 50 mg/dL: Oral treatment preferred:?? If able to drink, give 240 mL Juice or Regular (not diet) soda OR If NPO, give 30 gram glucose 40% oral gel massaged in buccal mucosa OR if unconsc ious or uncooperative, give 25 gram (250 mL) Dextrose 10% IV over 15 minutes per protocol OR, if no IV access, 1 mg Glucagon IM. Recheck BG in 30 minutes. May r epeat juice/soda, gel, dextrose or gluca hany once per episode. For persistent hypoglycemia, consider longer-acting treatment for the duration of the active insulin. 1 tube contains 15 grams of glucose (net weight of tube = 37.5 grams., Routine HYDROmorphone (Dilaudid) tablet 2-4 mg 0302 (Given - Provider: Leeanne Lewis, RN)0901 (Given - Provider: Papa Bullock RN) 2-4 mg, Oral, EVERY 6 HOURS PRN, Startin g on Mon06/23/21 at 2223, Until Mon06/24/21 at 1539, Pain, Mild pain 2mg, moderate severe 4mg. (can also take 2mg for severe per patient preference), Routine HYDROmorphone (Dilaudid) tablet 4 mg (CANCELED) 1348 (Given - Provider: Siri Rodríguez RN) 4 mg, Oral, EVERY 4 HOURS PRN, Starting on Mon06/23/21 at 0832, Until Mon06/23/21 at 1925, Pain, for pain 6-10, May give an additional 2 mg once if pain not relieved in 30-60 minutes., Routine HYDROmorphone (Dilaudid) tablet 6 mg (CANCELED) 1256 ( Given - Provider: Vanda Adam LPN)1659 (Given - Provider: Nadya Adam LPN)2106 (Given - Provider: Sharon Hitchcock, MORTEZA) 0453 (Given - Provider: Sharon Hitchcock, MORTEZA) 6 mg, Oral, EVERY 4 HOURS PRN, Starting on Mon06/16/21 at 2323, Until Mon06/23/21 at 0833, Pain, for severe pain (7-10), May give an additional 2 mg once if pain not relieved in 30-60 minutes., Routine iohexoL (Omnipaque) (350 mg/mL) injection solution 250 mL (C OMPLETED) 1056 (Given - Provider: Leandra Keys - Comment: [id number]) 250 mL, Other, ONCE PRN, 1 dose, Startin g on Mon06/23/21 at 1022, Until Mon06/23/21 at 1056, Per Protocol, Warning Vesicant/Irritant Medication , Routine labetaloL (Normodyne) (5 mg/mL) injection solution 10 mg 10 mg, Intravenous, EVERY 4 HOURS PRN, S tarting on Mon06/22/21 at 1802, Until Mon06/24/21 at 1539, High Blood Pressure, For SBP>180, Routine lidocaine (Xylocaine) 1% (10 mg/mL) injection 3 mg 3 mg (0.3 mL), Subcutaneous, ONCE PRN, 1 dose, Starting on Mon06/16/21 at 2322, Until Melany 06/24/21 at 1539, for discomfort with PIV insertion, Recovery (Recovery-Hospital Unit), Routine naloxone (Narcan) (0.4 mg/mL) injection 0.2 mg 0.2 mg, Intravenous, EVERY 1 MIN PRN, St arting on Mon06/16/21 at 2322, Until Melany 06/24/21 at 1539, Opioid Reversal, If respiratory rate less than 6 OR the patient is unable to arouse OR SpO2 is declining , Give for respiratory rate of less than or equal to 6 and patient is heavily sedated or unarousable. May repeat every 60 seconds to increase respiratory rate. DO NOT exceed 2 mg total dose., Recovery (Recovery-Hospital Unit), Routine ondansetron (pf) (Zofran) (2 mg/mL) injection 4 mg(Linked Group 4) 4 mg, Intravenous, EVERY 8 HOURS PRN, St arting on Mon06/16/21 at 2322, Until Melany 06/24/21 at 1539, Nausea, May repeat times one in 30 minutes if ineffective. If multiple antiemetics are ordered, use o ndansetron first., Recovery (Recovery-Hospital Unit) ondansetron (Zofran) tablet 4 mg(Linked Group 4) 4 mg, Oral, EVERY 8 HOURS PRN, Starting on Mon06/16/21 at 2322, Until Mon06/24/21 at 1539, Nausea, Vomiting, If multiple antiemetics are ordered, use ondansetron first. PO Preferred. If patient lawson ble to take PO, may give IV if ordered. May repeat times one in 45 minutes if ineffective., Recovery (Recovery-[facility]ospital Unit), Routine polyethylene glycoL (Miralax) packet 17 g 0000 (Given - Provider: Nichelle Conti RN - Comment: pt requested in prune juice/apple juice/butter bomb) 17 g, Oral, DAILY PRN, Starting on Mon at 1315, Until Mon06/24/21 at 1539, Constipation, Routine prochlorperazine (Compazine) (5 mg/mL) injection 5 mg 2340 (Given - Provider: Sharon Hitchcock RN) 5 mg, Intravenous, EVERY 6 [address] PRN, St arting on Mon06/17/21 at 0503, Until Mon06/24/21 at 1539, Nausea, Routine sodium chloride 0.9 % (flush) (BD PosiFlush Normal Saline 0.9) f lush 5-20 mL 5-20 mL, Intravenous, EVERY 1 MIN PRN, S tarting on Mon06/16/21 at 2322, Until Mon06/24/21 at 1539, flush, Flush pertains to all indwelling lines. Flush per protocol found in the job aid using the link p rovided on this medication record., Recovery ([facility]), Routine sodium phosphates (FLEET) 19-7 gram/118 mL rectal enema 1 Bottle 1 Bottle, Rectal, DAILY PRN, Starting on Mon06/22/21 at 0657, Until Mon06/24/21 at 1539, Constipation, Routine Linked Groups Order Group 1: POCT Fingerstick Glucose (CANCELED) Routine, EVERY 4 HOURS, First occurrence on Mon06/17/21 at 1200, Until Specified
Consider choosing EVERY 4 HOURS as frequency for: - Type 1 Diabetes - At least 24 hours after coming off an insu reynold drip - At least 24 hours after admis selam for DKA - Hypoglycemia unawareness - Patients who are otherwise unstable Select the same frequency for the correction bolus insulin order And insulin lispro (HumaLOG;Admelog) (100 unit/mL) subcutaneous injection vial 1-6 UnitsJump to med 1-6 Units, Subcutaneous, EVERY 4 HOURS S CHEDULED, First dose (after last modification) on Mon06/17/21 at 1200, Until Discontinued
CORRECTION BOLUS Custom correction factor 20&n bsp;BG 140 - 160 Give 1 units BG 1 61 - 180 Give 2 units BG 181 - 200 Give 3 units BG 201 - 220 Give 4 units BG 221 - 240 Give 5 units BG greater than 240 , give 6 units and recheck BG in 2 hours . If BG remains GREATER THAN 240, GIVE 6 units (no more than two times) & call for new basal insulin orders. If less than 240 after two hours, give no insulin and resume prior schedule.
Routine Group 2: lidocaine (Lidoderm) 5% topical patch 3 patchJump to med 3 patch, Transdermal, EVERY 24 HOURS, Fi rst dose on Mon06/17/21 at 0830, Until Discontinued
Apply patch(es) for 12 hours, and then remove for 12 hours.
Routine And lidocaine (Lidoderm) topical patch REMOVALJump to med Transdermal, EVERY 24 HOURS, First dose on Mon06/17/21 at 2015, Until Discontinued
Remove lidocaine 5% patch
Group 3: glucose (GLUTOSE) 40% oral geLJump to med 15-30 g, Buccal, EVERY 30 MIN PRN, Start ing on Mon06/16/21 at 2339, Until Mon06/24/21 at 1539, Low blood sugar
For BG 50-70 mg/dL: Oral treatment preferred:?? If able to drink, give 120 mL J uice or Regular (not diet) soda OR If HELMET HAT PUNCHER O, give 15 gram glucose 40% oral gel massaged into buccal mucosa OR if unconscious or uncooperative, give 25 gram (250 mL) Dextrose 10% IV over 15 minutes per pro tocol OR, if no IV access, 1 mg Glucagon IM. For BG less than 50 mg/dL: Oral treatment preferred:?? If able to drink, give 240 mL Juice or Regular (not diet) soda OR If NPO, give 30 gram gl ucose 40% oral gel massaged in buccal mu cosa OR if unconscious or uncooperative, give 25 gram (250 mL) Dextrose 10% IV over 15 minutes per protocol OR, if no IV access, 1 mg Glucagon IM. Rech brianna BG in 30 minutes. May repeat juice/s winston, gel, dextrose or glucagon once per episode. For persistent hypoglycemia, consider longer-acting treatment for the duration of the acti ve insulin. 1 tube contains 15 gram s of glucose (net weight of tube = 37.5 grams.
Routine Or dextrose 10% infusionJump to med 250 mL, at 1,000 mL/hr, Intravenous, SOLO RY 30 MIN PRN, Starting on Mon06/16/21 at 2339, Until Melany 06/24/21 at 1539
For BG 50-70 mg/dL: Oral treatment preferred:?? If able to drink, give 120 m L Juice or Regular (not diet) soda OR If NPO, give 15 gram glucose 40% oral gel massaged into buccal mucosa OR if unconscious or uncooperative, give 25 gram (250 mL) Dextrose 10% IV over 15 minutes per protocol OR, if no IV access, 1 mg Gluca hany IM. For BG less than 50 mg/dL: Oral treatment preferred:?? If able to drink, give 240 mL Juice or Regular (not diet) soda OR If NPO, give 30 gram glucose 40% oral gel massaged in buccal mucosa OR if unconscious or uncooperative, give 25 gram (250 mL) Dextrose 10% IV over 15 minutes per protocol OR, if no IV access, 1 mg Glucagon IM. R echeck BG in 30 minutes. May repeat juic e/soda, gel, dextrose or glucagon once per episode. For persistent hypoglycemia, consider longer-acting treatment for the duration of the active insulin.
Or glucagon (Glucagen) (1 mg/mL) injection solution 1 mgJump to med 1 mg, Intramuscular, EVERY 30 MIN PRN, S tarting on Mon06/16/21 at 2339, Until Melany 06/24/21 at 1539, Low blood sugar
For BG 50-70 mg/dL: Oral treatment preferred:?? If able to drink, give 120 mL Juice or Regular (not diet) soda OR I f NPO, give 15 gram glucose 40% oral gel massaged into buccal mucosa OR if unconscious or uncooperative, give 25 gram (250 mL) Dextrose 10% IV over 15 minutes per protocol OR, if no IV access, 1 mg Gluc agon IM. For BG less than 50 mg/dL: Oral treatment preferred:?? If able to drink, give 240 mL Juice or Regular (not diet) soda OR If NPO, give 30 gra m glucose 40% oral gel massaged in bucca l mucosa OR if unconscious or uncooperative, give 25 gram (250 mL) Dextrose 10% IV over 15 minutes per protocol OR, if no IV access, 1 mg Glucagon IM. Recheck BG in 30 minutes. May repeat jui ce/soda, gel, dextrose or glucagon once per episode. For persistent hypoglycemia, consider longer-acting treatment for the duration of the active insulin.
Routine Group 4: ondansetron (Zofran) tablet 4 mgJump to med 4 mg, Oral, EVERY 8 HOURS PRN, Starting on Mon06/16/21 at 2322, Until Melany 06/24/21 at 1539, Nausea, Vomiting
If multiple antiemetics are ordered, use ondansetron first. PO Preferr ed. If patient unable to take PO, may gi ve IV if ordered. May repeat times one in 45 minutes if ineffective.
Recovery (Recovery-Hospital Unit), Routine Or ondansetron (pf) (Zofran) (2 mg/mL) injection 4 mgJump to med 4 mg, Intravenous, EVERY 8 HOURS PRN, St arting on Mon06/16/21 at 2322, Until Melany 06/24/21 at 1539, Nausea
May repeat times one in 30 minutes if ineffective. If multiple antiemetics a re ordered, use ondansetron first.
Recovery (Recovery-Hospital Unit) documented in this encounter Care Teams Retail Asset Protection Specialist Relationship Specialty Start Date End Date Derek Torres PA PCP - General Internal Medicine 06/07/21 [address] [place] [address] documented as of this encounter
--- OUTSIDE RECORDS SUMMARY | 2022-10-07 18:40 | XMS_ITS | Encounter Summary ---
:1955 [place] [address] Care Team Providers Name Role Phone Derek Torres Primary Care Provider Reason for Visit Auth/Cert Specialty Diagnoses / Procedures Referred By Contact Refer red To Contact Diagnoses Renal cancer 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 ? Procedures PRO NEPHRECTOMY, W/PART. URETECTOMY @LAPAROSCOPY TOTAL NEPHROURETERECTOMY, ROBOTICS ASSIST ([place] [id number].) MODIFIER ROBOT,DAVINCI XI Referral ID Status Reason Start Date Expiration Date Visits Requ ested Visits Authorized [id number] 1 1 Encounter Details Date Type Department Care Team Description 06/16/2021 Surgery Main Operating Room Izabella Davis MD @LAPAROSCOPY TOTAL [facility] NEPHROURETERECTOMY, [facility] ROBOTICRah ASSIST ([facility] UROLOGY [facility]) [place] [address] [place] [address] [phone] Social History Tobacco Use Types Packs/Day Years Used Date Former Smoker Cigarettes 0.25 0 Quit: 06/2020 Smokeless Tobacco: Never Used Alcohol Use Standard Drinks/Week Comments Not Currently 0 (1 standard drink = 0.6 oz pure alcoho l) Sex Assigned at Date Recorded Not on file documented as of this encounter Last Filed Vital Signs Vital Sign Reading Time Taken Comments Blood Pressure 178/74 06/16/2021 11:21 AM EDT Pulse 92 06/16/2021 11:21 AM EDT Temperature 37.1 ??C (98.8 ??F) 06/16/2021 11:21 AM EDT Respiratory Rate 18 06/16/2021 11:21 AM EDT Oxygen Saturation 97% 06/16/2021 11:21 AM EDT Inhaled Oxygen Concentration - - Weight 96.6 kg (212 lb 15.4 oz) 06/16/2021 11:21 AM EDT Height 161.3 cm (5' 3.5) 06/16/2021 11:21 AM EDT Body Mass Index 38.74 06/23/2021 6:51 AM EDT documented in this encounter Discharge Summaries Daysi Montilla PA - 06/24/2021 1:04 PM EDT Discharge Summary Patient Name: Nancy Pichardo Patient Age: 66 y.o. 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 Special Considerations for Solitary Kidney: Do [...] 07/05/2021 12:30 PM LAB, THREE L Lab [facility] Arrive at: Acid Recovery Operator Area 3L [phone] 07/05/2021 1:40 PM Izabella Davis MD Urology at [facility] Arrive at: Acid Recovery Operator Area [phone] 07/06/2021 10:30 AM Adilene Link, STONE DECORATOR; Alberto Bhatia MD Hematology/Oncology at [facility] Arrive at: [facility] door at end of hallway [phone] Future Orders Complete By Expires Basic Metabolic Panel (non-fasting) [LAB15 Custom] 06/30/2021 (Approximate) 07/24/2021 Process Instructions: INCLUDES: Calcium, BUN, Creat, GFR, Glucose, Lytes Scheduling Instructions: Comments: Questions: CBC (with Diff) [UNW188 Custom] 06/30/2021 (Approximate) 07/24/2021 Process Instructions: INCLUDES: [...] follow here. Primary Care Provider: DELORES Zaman [phone] Follow-up Recommendations for Providers: Please see discharge [...] was managed by the Urology Team at [facility]. If you have any questions or concerns, please feel free to contact us. Provider Contact Information: Urology Clinic: [facility] (after business hours): documented in this encounter Discharge Instructions Discharge InstructionsMeera Mohr, STONE DECORATOR - 06/21/2021 4:13 PM EDT Insulin Discharge [...] 5 PM and weekends, and ask for ergonomic specialist Urologist. Special Considerations for Solitary Kidney: Do [...] with EMS staff. Discharge summary faxed to [facility]. Vern Donahue - 06/24/2021 1:11 PM EDT Cigar Binder Encounter Note Patient Name: Nancy Pichardo : [id number] MR#: [id number] Admit Date: 06/16/2021 10:09 AM Hospital Day [...] 06/24/2021 11:32 AM EDT Office of Care Management/Site Acquisition Manager Patient Name: Nancy Pichardo : 1955 Patient has been offered a snf bed at [facility] arranged for a 1300 transport. Ambulance will need: Medicare ambulance form completed and signed (MD or Animal Care Provider RN/CONSTRUCTION ADMINISTRATIVE ASSISTANT) Copy of patient demographics [place] [facility] DNR/DNI order, if active No MD to MD report necessary Please call Nursing Report to , ask for [employer] stitcher. Info to accompany patient: Copies of Medication Administration Records and IV sheets for past 10 days. Plan: Site Acquisition Manager will be available to the patient and Animal Care Provider-RN and/or Metal Furniture Repairer for further assistance. Patient will be discharged to: [address] Tina Ang Site Acquisition Manager Leigh Ann Dolan RN - 06/23/2021 5:11 PM EDT Pt's insurance has declined her rehab admission in the [facility] (her [place] state). No guidance given to [facility] if [place] state has rehab benefits or not. ?? RN/CM spoke with patient and spouse. Received call: Debora Mikey - tr - call her with any dc info: [phone] (H). Per patient - okay to give her information. Based on discussions with the multi-disciplinary healthcare team, the patient would benefit from SNFlevel of care at discharge. ?? I have spoken with the patient to discuss discharge planning needs. I have provided the [facility], Office of Care Management letter from the Wastewater Supervisor pertaining to rehab referrals. I have also provided a letter describing our affiliations [facility] and educatedthem about their right to choose where referrals are. ?? Provided patient with [facility] Star Quality Rating for SNF, LTAC [...] The patient have requested referrals to: 1. [facility] [address] [place] [address] ?? [phone] ?? 2. [facility] [address] [place] [address] ?? [phone] ?? 3. [facility]) [address] [place] [address] ?? [phone] ? Expected date of discharge: Medically ready today: 06/23/2021 Has patient received the COVID vaccine: COVID Vaccine: Pfizer vaccines - per [facility] - EMS gave to her Dates: 03/29/2021 and 04/19/2021 Does patient have COVID vaccine card: YES Copy of Card Obtained: NO Note routed to Site Acquisition Manager who will communicate referrals to facilities and provide any required information. Ml Keenan, PT - 06/23/2021 4:44 PM EDT Physical [...] or concerns. Ml Keenan PT, DPT Pager: [phone] 06/23/21 Inpatient Rehabilitation Department Leigh Ann Dolan RN - 06/23/2021 11:19 AM EDT RN/CM called: [address] [address] ?? Spoke with Tina working with BC/BS for PA Has made several calls to BC/BS Pending review by facility and BC/BS for PA for rehab stay. communications coordinator will follow up with spouse today. Update: 2:15 PM They have NOT heard of anything from BC/BS regarding PA. Phone calls and Emails sent by facility. Team updated Update: 4:00 PM [facility] declined her. Insurance denied - does not have that coverage in [place] Team updated. Pt/spouse aware. Will regroup and review possible [place] SNF facilities to review, get PA and see if [place] is in-network with spouses' primary insurance (he still works and confirmed with [employer])Cullen Bolden) MORTEZA Dolan RN/CM - Cellphone: [phone] Pager: [phone] Covering Service RN/CM Bonilla Mckeon MD - [...] who have questions please contact the health client care specialist that requested your imaging first. A/P: Nancy Pichardo is a 66 y.o. female now 7 Days Post-Op s/p right nephroureterectomy for right upper tract UCC. Patient is recovering as expected. [facility] pending insuranceprior authorization. Can mostly [...] Vern Donahue - 06/22/2021 2:46 PM EDT Cigar Binder Encounter Note Patient Name: Nancy Pichardo : [id number] MR#: [id number] Admit Date: 06/16/2021 10:09 AM Hospital Day 6 days Narrative: Visited to introduce and assess acceptance of Cigar Binder services. Pt was not available for visit and I will visit an other time. Assessment: Intervention and Outcome: Follow-up: Time in Direct Care: Vern Donahue 06/22/2021 Leigh Ann Dolan RN - 06/22/2021 11:31 AM EDT RN/CM following up with SNF: [address] [phone] 11:40 AM: Spoke with Marti Conti - prevention coordinator. Tina working with BC/BS for PA - rehab admission RN/CM spoke with Tina - pending PA review and awaiting PA to come back from her insurance company. Pharmacy information for [facility]: [facility] Direct Transportation: Spouse Pending call back by facility and will update the facility. Jesus Bolden) MORTEZA Dolan RN/CM - Cellphone: [phone] Pager: [phone] Covering Service RN/CM UPDATE: 2:50 PM Call back to: [address] [address] [facility] with: Tina working with BC/BS for PA She's in a meeting. Pending call back. Update: 5 PM Call back by Tina with [facility]. They are still awaiting PA for admission. [...] who have questions please contact the health client care specialist that requested your imaging first. Electronically signed by: Michelle Edmond MD, [facility] ([phone]), at 06/21/2021 11:57 AM A/P: Nancy Pichardo is a 66 y.o. female now 6 Days Post-Op s/p right nephroureterectomy for right upper tract UCC. Patient is recovering as expected. Patient has a rehab bed in [facility] for 06/23. Continue adequate pain control, ambulation [...] 06/21/2021 1:48 PM EDT RN/CM notes that [facility] (pt's first preference) has accepted patient in [facility]. Call to and spoke with Marti Conti - prevention coordinator. Working on PA and see if they can get her admitted to rehab on 06/22/2021. Pending PA and COVID test (in process) Transport: Spouse ~~~~~~~~~~~~~~~~~~~~~~~~~~~~~~~~~~~~~~~~~~~~~~~~~~~~~~~~~~~~~~~~~~~~~~~~~~~~~~~~ ~~~~~~~~~~~~~~~~~ Will follow up on 06/22/2021 to finalize PA and rehab plans as well as obtaining E-fax information for this facilities pharmacyCullen Bolden) MORTEZA Dolan RN/CM - Cellphone: [phone] Pager: [phone] Covering Service RN/CM Meera Mohr APRN - [...] 4. Diet carb control level 2 Meera Mohr APRN [facility] Endocrinology Diabetes Management Pager [phone] 20 minutes of this 35 minute visit [...] bed, and has bedside commode. Spouse works flight crew time clerk, so pt is alone much of the [...] Discharge Disposition (PT): swing bed rehabilitation facility, half-way facility when medically ready for hospital discharge. [...] plan as stated. Time IN / OUT: 0041-2131 Total Minutes, Physical Therapy: 16 (TEFx1) Thank you for this consult. Ml Keenan, PT Pager: [phone] Physical Therapy Inpatient Rehabilitation Department Peyman Denson, [...] bed, and has bedside commode. Spouse works flight crew time clerk, so pt is alone much of the [...] good safety precautions Endurance: fair Vitals: O2: 39793%, HR: 90's-109, 120/65 Pain: 09/05 Education: Pt/family/caregiver [...] Anticipated Discharge Disposition (OT): inpatient rehabilitation facility, half-way facility,swing bed rehabilitation facility Equipment Recommendations: TBD [...] 2-3 times/wk Total Minutes, Occupational Therapy: 21 (pr ) Pager: [phone] Peyman Denson OT Occupational Therapy Rehabilitation Department [...] GLUCOSE 140 -- 186 -- 208* Assessment/Management/Plan: Nancy Pichardo is a 66 y.o. [...] and Compazine prn : continue monitoring UOP, Laech in place. FEN: replace lytes prn, D/C fluids, carb control diet Endo: DM. SSI and meal associated insulin. Lantus. DM team consult. Holding home Tresiba. Will keep lantus above home dose as sugars have been on the high side. Heme: continue ppx SQH ID: afebrile Prophylaxis: SQH, Protonix, SCDs, encourage ambulation Dispo: stable on floor status, will discuss discharge planning with nursing care partner. PT/OT ordered. Code status: Full code Siri [...] to provide education to the diabetes nurse. 8508 Patient reporting they expect me to order [...] floor status, will discuss discharge planning with nursing care partner. PT/OT ordered. Code status: Full code Associated [...] of two midnights or is on the [facility] inpatient only procedure list (status C) due to: post-operative care that cannot be delivered as an outpatient; examples: pain only controlled with IV pain medication; frequent or complex wound care/dressing changes; NPO requiring IV fluid support. Per last PT/OT assessments, may require d/c to SNF pending re-evaluation tomorrow. SUSIE GIRON MD 06/20/2021 Ramakrishna Nicole, MORTEZA - 06/20/2021 12:57 AM EDT Pt stated [...] Handoff report given to MORTEZA Adams @ 2160. Papa Bullock RN - 06/19/2021 6:43 PM [...] 5 lap sites to right abd, dermabonded BRAKE DRUM MOLDER, no signs ofinfections. Lidocaine patches to back, [...] shifts: In: 1920 [P.O.:1120; I.V.:800] Out: 1774 [Urine:1775] Physical Exam Gen- NAD, resting comfortably CV-- [...] floor status, will discuss discharge planning with nursing care partner. PT/OT ordered. Code status: Full code Gómez Nj RN - 06/19/2021 6:44 AM EDT Assumed care of patient at 0600. Presents A/Ox4. Resting between care. PRNs and scheduled medications administered upon patient request. Incisions BRAKE DRUM MOLDER. Will CTM and notify of any changes. [...] Time was spentwith pt to address issues, tread cutter spoke with pt, pulp plant supervisor Mahi spoke, and urology team visited [...] EDTSummary: Infiltrate left hand Infiltration/Extravasation Scale Nancy L Kylee [id number] 308/308-A Infiltration appearance: paged/arrived for request to [...] paged 3:24 PM Name of RN contacted RN Harry lenz 3:24 PM Name of Pharmacist if consulted n/a* 3:24 PM Plastics Provider contacted: no 3:24 PM Name of Plastics MD (if consulted) n/a -- PHOTO TO BE ADDED HERE (Mandatory photo for infiltrations/ extravasations scoring a stage 2 or greater, but recommended forstage 1. Include measuring tape and identifier in the photo) STREETSWEEPER OPERATOR CARING FOR THIS PATIENT WILL CONTINUE TO MONITOR AND WILL ASSUME CARE, VASCULAR ACCESS WILL NOT FOLLOW THIS EVENT AT THE SIGNING OF THIS NOTE. Meera Mohr APRN - 06/18/2021 11:35 AM EDT Images from [...] ratio for each meal) Meera Mohr APRN [facility] Endocrinology Diabetes Management Pager [phone] 20 minutes of this 35 minute visit was spent with the patient in counseling on diabetes and treatment plan, reviewing all glucose and insulin data as well as relevant laboratory results with the patient, and coordination of care on the inpatient unit including nursing and primary team. Sheryl Devries, OT - 06/18/2021 11:30 AM EDT Occupational [...] 10 mins with minimal verbal cues Pager: [phone] Sheryl Devries OT 06/18/2021 Occupational Therapy Rehabilitation Department Ml Keenan, PT - 06/18/2021 11:29 AM Philip ABDULLAHI REC: swing or SNF rehab. PT follow up Monday Physical Therapy Note Treatment Number PT: 2 Patient profile: ??Nacny Mock Pichardo??is a 66 y.o.?female??with PMH significant for [...] bed, and has bedside commode. Spouse works flight crew time clerk, so pt is alone much of the [...] the following: Pain: Number Location At rest 10 back With activity 10 Back and everywhere Vital Signs: SpO2 (RA) [...] Discharge Disposition (PT): swing bed rehabilitation facility, half-way facility when medically ready for hospital discharge. [...] plan as stated. Time IN / OUT: 6237-5438 Total Minutes, Physical Therapy: 24 (x2 TEF) Thank you for this consult. Ml Keenan, PT Pager: [phone] Physical Therapy Inpatient Rehabilitation Department Daysi Montilla [...] floor status, will discuss discharge planning with nursing care partner. PT/OT ordered. Code status: Full code Tamiko [...] RN - 06/17/2021 11:00 PM EDT This content writer cared for pt from 2127-3480. My assessment remains unchanged from the previous [...] ADL's, hands on Surveillance [continuous indirect monitoring]: Glenna, Purposeful Rounding, Nurse Knowledge Exchangeat Bedside, Bed [...] to room with call sampson within reach. Masimo on. Will continue to monitor. Madison Lockett OT - 06/17/2021 1:25 PM EDT Occupational Therapy Evaluation Patient Profile: Nancy Pichardo is a 66 y.o. female who presented with hx of right upper tract UCC s/p right laparoscopic nephroureterectomy POD #1. Social History: Pt lives with her in [place], [place] o Home Set-Up: One level home [...] outcome. 23 minutes; evaluation Ana Lockett OT #[id number] Deonna Nguyen RN - 06/17/2021 11:11 AM EDT RN lunch coverage FS 228 pnt back in bed... crying 2/2 neuropathy pain. Chair being occupied by another Got a different bed obtained [place] mattress Did not feel it would be any different pnt refused offer of pain med Repositioned in bed Visitor in NT Ml Keenan, PT - 06/17/2021 9:32 AM Philip ABDULLAHI REC: SNF vs Swing rehab, ambulance [...] bed, and has bedside commode. Spouse works flight crew time clerk, so pt is alone much of the [...] Discharge Disposition (PT): swing bed rehabilitation facility, half-way facility when medically ready for hospital discharge. [...] in this evaluation. Time IN / OUT: 4564-5649 Total Minutes, Physical Therapy: 22 (Eval) Thank you for this consult. Ml Keenan, PT Pager: [phone] Physical Therapy Inpatient Rehabilitation Department Daysi Montilla [...] floor status, will discuss discharge planning with nursing care partner. PT/OT ordered. Code status: Full code Lilia Winters RN - 06/17/2021 7:12 AM EDT 0700 Report received from MORTEZA Reed. Pt position adjusted in bed, yells out in paid with movement. Team at bedside and aware, plan to order lidocaine patches. Jody reviewed 729 Pt pain 09/05 but in left lower back, not at [...] 1240 Report given to Jessenia PRO on . Pt eating some lunch, very minimal. Gwen Souza MD - 06/17/2021 2:33 AM EDT UROLOGY POST-OP NOTE Nancy Pichardo is a 66 y.o. female [...] continue to monitor. - SCDs in place. Deerk Muller RN - 06/17/2021 1:26 AM EDT 2300- Pt arrived in PACU, Oral airway in place, 6L simple mask in place, Lungs CTA, LAP sites WNL, VSS, Adrienne zeroed, Leach in place, will monitor. 0115- AM labs sent off, [place] D/C'd, will monitor. 0400- Pt lying comfortably VSS, pain tolerable, Lap sites unchanged, service made aware of AM labs, PACU sadie met 0630- Report given to dayshift documented [...] Units Date/Time Urine culture Clean Catch Urine [[id number]] Collected: 06/02/21 1114 Lab Status: Final result Specimen: Clean Catch Urine Updated: 06/03/21 1138 Urine Culture -- 10,000-49,000 cfu/ml Normal mucosal mekhi Susceptibility testing not routinely performed for Coagulase Negative Staphylococcus species and other Gram Positive organisms from urine. Assessment/Plan Proceed with scheduled procedure Procedure(s): @LAPAROSCOPY TOTAL NEPHROURETERECTOMY, ROBOTICS ASSIST (WRVU 25.36) MODIFIER ESTHERBOAZ - RIGHT documented in this encounter Miscellaneous Notes Care Management Discharge - Yocasta Downing RN - 06/24/2021 11:37 AM EDT CARE MANAGEMENT FINAL DISCHARGE NOTE Chart reviewed, care reviewed with primary team and at interdisciplinary rounds. Patient is medically ready for discharge to To facility . Needs for Transition of Care: Plan for discharge is: Nursing Home Facility / Swing Agency Referrals & Follow-up Care: Contact information for follow-up [facility] [address] [id number] Pt has accepted a bed at [facility] Transportation: Ambulance Ambulance transportation is medically necessary [...] bed, and has bedside commode. Spouse works flight crew time clerk, so pt is alone muchof the day. He assists with dressing and morning meal.. Current Functional Ability: Assistive Person and Equipment DME used at home: other (see comments) (Rollator) DME Needed at DC: None Patient is insured through: Primary Insurance: [email or web address] OOS Payor: [facility] OOS / Plan: [facility] NATIONAL OOS INDEMNITY / Product Type: *No Product type* / Secondary Insurance: MEDICARE Prescription Coverage: Yes Preferred Pharmacy: [id number] - [place], [place] - [address] [facility] [facility] [address] [address] [address] [place] [address] This plan was formulated with input from patient,and team. All are in agreement with plan. I have verbally reviewed Medicare Discharge Rights with patient. Patient verbalizes understanding ofright to appeal this discharge if feeling not medically ready. Offered a copy of this letter. Office of Care Management CM Yocasta Downing RNCM Beeper #[id number] Plan of Care - Leeanne Lewis RN [...] her thrombophlebitis was two PIV placements at [facility] in the right cephalic vein andpatient reports that there was erythema and tenderness from the antecubital fossa to the proximal arm. Denies family history of DVT or PE, and no history of bleeding or clotting disorders. She is now 6 Days Post-Op status post right laparoscopic nephroureterectomy. Lives at home alone. 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 Independent with ADLs. Review of Systems: [...] (WRVU 25.36) [facility] by [facility] Medications: Current Facility-Administered Medications: ??? sodium phosphates (FLEET) 19-7 gram/118 mL rectal enema 1 Bottle, 1 Bottle, Rectal, Daily PRN, Daysi Montilla PA ??? furosemide (Lasix) tablet 20 mg, 20 mg, Oral, BID, Daysi Montilla PA, 20 mg at 06/22/21 0824 ??? insulin lispro (HumaLOG;Admelog) (100 unit/mL) subcutaneous injection vial 0-15 Units, 0-15 Units, Subcutaneous, TID WC, Meera Mohr, STONE DECORATOR, 6 Units at 06/22/21 0836 ??? insulin glargine (Lantus) (100 unit/mL) subcutaneous injection vial 45 Units, 45 Units, Subcutaneous, Q24H, Meera Mohr, STONE DECORATOR, 45 Units at 06/22/21 0836 ??? calcium carbonate (Tums) chewable tablet 1,000 mg, 1,000 mg, Oral, Daily PRN, Prakash Phillips MD, 1,000 mg at 06/20/212031 ??? bisacodyL (Dulcolax) suppository 10 mg, 10 mg, Rectal, Daily, BuffaloAlyssa MD, 10 mg at 06/22/21 1002 ??? [...] 1-6 Units, 1-6 Units, Subcutaneous, Q4H MO, Onur, Meera Mock, STONE DECORATOR, 3 Units at 06/22/21 0039 ??? polyethylene [...] injection 5,000 Units, 5,000 Units, Subcutaneous, Q8H Barbara HASSAN Michael E, MD, 5,000 Units at 06/22/21 0503 ??? acetaminophen (Tylenol) tablet 975 mg, 975 mg, Oral, Q6H Barbara HASSAN Michael E, MD, 975 mg at 06/22/21 0824 ??? [...] Pen Needle 32 gauge x 5/32 Needle ??? blood sugar diagnostic strips Strip [...] PCR Not Detected Not Detected SARS-CoV-2 Source OUTPLACEMENT CONSULTANT Swab POCT Glucose Result Value Ref Range [...] provided as needed. Abd lap sites YAS. Hany in place draining CYU. Last BM 06/22. Bed/chair alarm settings appropriate for patient. Call sampson in reach, sleeping between care, will continue to monitor and help patient reach d/c goals. ?? PLAN MOVING FORWARD: ?? Hany (stays in for 10 days post-op) BG [...] of Care Management Initial Assessment Leigh Ann M Read, RN reviewed record and discussed patient with [...] (Spouse) would be surrogate decision maker per [place] surrogate decision making law. (Only good for 90 days) Any patient receiving care at [facility] must abide by [place] law. The hierarchy for surrogate decision making [...] (i) The agent with financial power of surgery scheduler or a conservator appointed in accordance with [...] bed, and has bedside commode. Spouse works flight crew time clerk, so pt is alone muchof the day. He assists with dressing and morning meal.. Current DME: other (see comments) (Rollator) Home Address (listed) [address] [facility] [address] Social & Family Supports: All names listed below confirmed with patient as current and correct Extended Emergency Contact Information Primary Emergency Contact: Derek Pichardo Address: [address] [address] [facility] Relation: Spouse Secondary Emergency Contact: [place], [place] Relation: Parent Current Care Provided by: self, spouse/significant other Provides Primary Care For: no one Caregiver if needed: spouse Quality of Family relationships: helpful, supportive Community Resources being provided currently: homecare agency (Uses [facility]) Behavioral Health History: Depression Substance Use/Abuse (listed) [...] works; has [facility] in the [facility] with [facility] [employer] [facility]/Prescription Coverage: [employer] - SO BC/BS IS PRIME Primary Insurance: [employer] SHIELD OOS Payor: [employer] SHIELD OOS / Plan: BCBS NATIONAL OOS INDEMNITY / Product Type: *No Product type* / Secondary Insurance: MEDICARE Prescription Coverage: YES Preferred Pharmacy: [id number] - [place], [place] - [address] [place] [address] Status: Patient is a : No Primary Care Provider: DELORES Zaman [phone] Patient/Caregiver Goals of Treatment: SNF Potential Needs for Transition of Care: half-way Agency Referrals: Based on discussions with the multi-disciplinary healthcare team, the patient would benefit from SNFlevel of care at discharge. ?? I have spoken with the patient to discuss discharge planning needs. I have provided the [facility], Office of Care Management letter from the Wastewater Supervisor pertaining to rehab referrals. I have also provided a letter describing our affiliations within the [facility] and educatedthem about their right to choose where referrals are. ?? Provided patient with [facility] Star Quality Rating for SNF, LTAC [...] The patient have requested referrals to: 1. 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 [phone] ?? [address]. [address] [address] ?? [phone] ?? 3. [facility] previous [facility] [address] [place] [address] P: [phone] F: [phone] ?? Expected date of discharge: 06/22/2021 Has patient received the COVID vaccine: Per pt - she had the Pfizer vaccines Per [facility] - EMS gave to her Dates: 03/29/2021 and 04/19/2021 Note routed to Site Acquisition Manager who will communicate referrals to facilities and [...] planningCullen Bolden) MORTEZA Dolan RN/CM - Cellphone: [phone] Pager: [phone] Covering Service RN/CM Plan of Care - [...] management and to provide a review of intermission coordinator diabetes care. 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 Monitoring - continue BG tid ac & hs Diet - low fat/low carb diet Exercise - weight-bearing exercise 30 min/day, as tolerated Thank you for allowing us to provide care for your patient Meera Onur MANDUJANO Endocrinology Pager [phone] 70 minutes of this 80 minute visit was spent with the patient in counseling on diabetes and treatment plan, reviewing all glucose and insulin data as well as relevant laboratory results with the patient, and coordination of care on the inpatient unit Brief Op Note - Papa Jimenez MD - 06/16/2021 10:50 PM EDT Brief Operative Note Patient Name: Nancy Pichardo : [id number] MR#: [id number] Case Date: 06/16/2021 Surgeon: Surgeon(s) and Role: * Izabella Davis MD - Primary * Papa Jimenez MD - Resident * Tina Louise MD - Resident Preoperative diagnosis: 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 Postoperative diagnosis: T3N2M0 cancer Right renal pelvis sp chemotherapy Procedure(s) (LRB): @LAPAROSCOPY TOTAL NEPHROURETERECTOMY, ROBOTICS ASSIST (WRVU 25.36) (Right) MODIFIER ROBOT,BOAZ XI (N/A) Anesthesia: General QL Block Findings: Lysis of adhesions Minor Veress needle injury to liver Small venotomy made in IVC repaired primarily 2 renal veins, 1 branching renal artery Uncomplicated right robotic-assisted laparoscopic nephroureterectomy; existing right ureteral stent removed with specimen Cystotomy closed in two layers and water-tight to 300cc Matted retroperitoneal fibrosis; para-caval and ynbmj-gibwn-znoiw retroperitoneal lymph node dissection peformed Complications: None [...] Davis MD - 06/16/2021 5:07 PM EDT [facility] Operative Note Patient Name: Nancy Pichardo : [id number] MR#: [id number] Case Date: 06/16/2021 - 06/17/2021 Surgeon: Surgeon(s) and Role: * Izabella Davis MD - Primary * Papa Jimenez MD - Resident * Tina Louise MD - Resident Preoperative diagnosis: 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 The robot undocked and ports removed [...] not need to include opening and closing). IZBAELLA DAVIS MD 06/20/2021 documented in this encounter Plan of Treatment Upcoming Encounters Date Type Specialty Care Team Description 10/21/2022 Appointment Hematology and Oncology 10/21/2022 Hospital Encounter Radiology Adilene Link [address] [facility] [place], [place] [id number] (Wo rk) 10/21/2022 Appointment Radiology Adilene Link [address] [place] [address] (Wo rk) 10/21/2022 Appointment Radiology Adilene Link [address] [place] [address] (Wo rk) 10/25/2022 Office Visit Hematology and Oncology Alberto Guy MD [facility] DR HEMATOLOGY/[place] [address] [place] [address] 11/09/2022 Office Visit Urology Izabella Davis MD [facility] UROLOGY [place], [place] [address] (Wo rk) Scheduled Referrals Name [...] section. MODIFIER 06/16/2021 4:10 PM Malignant neoplasm ROBOT,DAVINCI XI EDT of right renal pelvis @LAPAROSCOPY TOTAL [...] Signature POC Glucose 130 65 - 199 EBONY PACEBIBI mg/dL [facility] Comment: Supplemental ranges: <140 mg/dL before meals <180 mg/dL all other times of the day Specimen Anatomical Collection Method Collection Time Receive d Time (Source) Location / / Volume Laterality Blood 06/24/2021 11:22 06/24/2021 AM EDT 11:22 AM EDT Izabella Davis MD POINT OF CARE TEST ORDERABLE S Performing Organization Address City/State/[place] [address] POCT Glucose (06/24/2021 7:33 AM EDT) athologist Signature POC Glucose 137 65 - 199 EBONY PACEBIBI mg/dL [facility] Comment: Supplemental ranges: <140 mg/dL before meals <180 mg/dL all other times of the day Specimen Anatomical Collection Method Collection Time Receive d Time (Source) Location / / Volume Laterality Blood 06/24/2021 7:33 AM 7:33 EDT AM EDT Izabella Davis MD POINT OF CARE TEST ORDERABLE S Performing Organization Address City/State/[place] [address] POCT Glucose (06/24/2021 4:22 AM EDT) athologist Signature POC Glucose 157 65 - 199 [facility] BIBI mg/dL [facility] Comment: Supplemental ranges: <140 mg/dL before meals <180 mg/dL all other times of the day Specimen Anatomical Collection Method Collection Time Receive d Time (Source) Location / / Volume Laterality Blood 06/24/2021 4:22 AM 4:22 EDT AM EDT Izabella Davis MD POINT OF CARE TEST ORDERABLE S Performing Organization Address City/State/[place] [address] (ABNORMAL) Basic Metabolic Panel (non-fasting) (06/24/2021 3:33 AM EDT) P athologist Signature Glucose Lvl 135 65 - 199 [facility] mg/dL [facility] Comment: Diabetes: >=200 mg/dL plus symp toms BUN 36 (H) 8 - 18 mg/dL [facility] Creatinine 1.65 (H) 0.70 - 1.20 mg/dL [facility] Sodium 137 135 - 145 mmol/L [facility] Potassium 4.8 3.5 - 5.0 mmol/L [facility] Comment: Please note: ??Patients with WBC >100,00 0 may have falsely elevated Potassium levels. ??For accurate Potassium quantif ication in these patients send serum separator tube (gold top) for subsequent determinations. ??Contact the Clinical Chemistry Laboratory if there are any qu estions. Chloride 100 98 - 107 mmol/L [facility] CO2 27 22 - 31 mmol/L [facility] Anion Gap 10 5 - 15 mmol/L [facility] Calcium 9.1 8.5 - 10.5 mg/dL [facility] Estimated GFR 32 (L) >=60 mL/min/1.73 m?? [facility] Comment: This patient? s estimated glomerular [...] / Volume Laterality Blood 06/24/2021 3:33 AM 1 3:50 EDT AM EDT Resulting Agency Comment Spec In Lab Izabella Davis MD CHEMISTRY ORDERABLES Performing Organization Address City/State/ZIP Code Phon e Number [address] POCT Glucose (06/23/2021 11:35 PM EDT) athologist Signature POC Glucose 84 65 - 199 EBONY BIBI mg/dL [facility] Comment: Supplemental ranges: <140 mg/dL before meals <180 mg/dL all other times of the day Specimen Anatomical Collection Method Collection Time Receive d Time (Source) Location / / Volume Laterality Blood 06/23/2021 11:35 06/23/2021 PM EDT 11:35 PM EDT Izabella Davis MD POINT OF CARE TEST ORDERABLE S Performing Organization Address City/State/ZIP Code Phon e Number [address] POCT Glucose (06/23/2021 8:33 PM EDT) athologist Signature POC Glucose 150 65 - 199 EBONY PACEBIBI mg/dL [facility] Comment: Supplemental ranges: <140 mg/dL before meals <180 mg/dL all other times of the day Specimen Anatomical Collection Method Collection Time Receive d Time (Source) Location / / Volume Laterality Blood 06/23/2021 8:33 PM 1 8:33 EDT PM EDT Izabella Davis MD POINT OF CARE TEST ORDERABLE S Performing Organization Address City/State/[place] [address] POCT Glucose (06/23/2021 4:45 PM EDT) athologist Signature POC Glucose 67 65 - 199 EBONY BIBI mg/dL [facility] Comment: Supplemental ranges: <140 mg/dL before meals <180 mg/dL all other times of the day Specimen Anatomical Collection Method Collection Time Receive d Time (Source) Location / / Volume Laterality Blood 06/23/2021 4:45 PM 4:45 EDT PM EDT Izabella Davis MD POINT OF CARE TEST ORDERABLE S Performing Organization Address City/[facility]/ZIP Code Phon e Number [address] POCT Glucose (06/23/2021 11:46 AM EDT) athologist Signature POC Glucose 184 65 - 199 EBONY MTZ mg/dL [facility] Comment: Supplemental ranges: <140 mg/dL before meals <180 mg/dL all other times of the day Specimen Anatomical Collection Method Collection Time Receive d Time (Source) Location / / Volume Laterality Blood 06/23/2021 11:46 06/23/2021 AM EDT 11:46 AM EDT Izabella Davis MD POINT OF CARE TEST ORDERABLE S Performing Organization Address City/[facility]/[place] [address] XR Fluoro Cystogram (06/23/2021 [...] who have questions please contact the health client care specialist that requested your imaging first. ? Electronically signed by: Eidson Barajas MD, [facility] ([phone]), at 06/23/2021 2:01 PM Narrative 06/23/2021 2:01 PM EDT EXAMINATION: XR FLUORO CYSTOGRAM CLINICAL HISTORY: 66-year-old female pos top day 7 status post right nephroU with bladder cuff repair - please assess for bladder leak TECHNIQUE: A pelvic supine vulcanizing press operator radiograph was obt ained. Approximately 150 cc of Omnipaque 350 wa s slowly infused by gravity through the patient's pre-existing Leach catheter. F luoroscopic spot images of the bladder were obtained. Post-drainage fluoroscopi c spot images were also obtained. COMPARISON: CT abdomen/pelvis from 02/09/2021 FINDINGS: SHOE DRESSER: Fecal matter is seen in the partially [...] for bladder leak TECHNIQUE: A pelvic supine vulcanizing press operator radiograph was obt ained. Approximately 150 cc of Omnipaque 350 wa s slowly infused by gravity through the patient's pre-existing Leach catheter. F luoroscopic spot images of the bladder were obtained. Post-drainage fluoroscopi c spot images were also obtained. COMPARISON: CT abdomen/pelvis from 02/09/2021 FINDINGS: SHOE DRESSER: Fecal matter is seen in the partially [...] ho have questions please contact the health client care specialist that requested your imaging first. Electronically signed by: Edison Barajas MD, [facility] ([phone]), at 06/23/2021 2:01 PM Izabella Davsi MD IMG FLUORO ORDERABLES POCT Glucose (06/23/2021 7:30 AM EDT) athologist Signature POC Glucose 152 65 - 199 [facility] mg/dL [facility] Comment: Supplemental ranges: <140 mg/dL before meals <180 mg/dL all other times of the day Specimen Anatomical Collection Method Collection Time Receive d Time (Source) Location / / Volume Laterality Blood 06/23/2021 7:30 AM 7:30 EDT AM EDT Izabella Davis MD POINT OF CARE TEST ORDERABLE S Performing Organization Address City/[facility] [place] [address] Lavender Tube HOLD (06/23/2021 4:58 AM EDT) Patholo gist Method Time Signature Lavender Hold Sample in [facility] lab. [facility] Specimen Anatomical Collection Method Collection Time Receive d Time (Source) Location / / Volume Laterality Blood Venous Draw / 06/23/2021 4:58 AM 06/23/20 5:38 Unknown EDT AM EDT Bonilla Mckeon MD HEMATOLOGY ORDERABLES Performing Organization Address City/State/[place] [address] (ABNORMAL) Basic Metabolic Panel (non-fasting) (06/23/2021 4:58 AM EDT) P athologist Signature Glucose Lvl 108 65 - 199 [facility] mg/dL [facility] Comment: Diabetes: >=200 mg/dL plus symp toms BUN 38 (H) 8 - 18 mg/dL [facility] Creatinine 1.55 (H) 0.70 - 1.20 mg/dL [facility] Sodium 138 135 - 145 mmol/L [facility] Potassium 5.2 (H) 3.5 - 5.0 mmol/L [facility] Comment: Please note: ??Patients with WBC >100,00 0 may have falsely elevated Potassium levels. ??For accurate Potassium quantif ication in these patients send serum separator tube (gold top) for subsequent determinations. ??Contact the Clinical Chemistry Laboratory if there are any qu estions. Chloride 104 98 - 107 mmol/L [facility] CO2 25 22 - 31 mmol/L [facility] Anion Gap 9 5 - 15 mmol/L [facility] Calcium 9.2 8.5 - 10.5 mg/dL [facility] Estimated GFR 34 (L) >=60 mL/min/1.73 m?? [facility] Comment: This patient? s estimated glomerular [...] Organization Address City/State/ZIP Code Phon e Number [address] POCT Glucose (06/23/2021 4:57 AM EDT) athologist Signature POC Glucose 117 65 - 199 EBONY BIBI mg/dL [facility] Comment: Supplemental ranges: <140 mg/dL before meals <180 mg/dL all other times of the day Specimen Anatomical Collection Method Collection Time Receive d Time (Source) Location / / Volume Laterality Blood 06/23/2021 4:57 AM 4:57 EDT AM EDT Izabella Davis MD POINT OF CARE TEST ORDERABLE S Performing Organization Address City/State/[place] [address] POCT Glucose (06/22/2021 11:24 PM EDT) athologist Signature POC Glucose 150 65 - 199 EBONY BIBI mg/dL [facility] Comment: Supplemental ranges: <140 mg/dL before meals <180 mg/dL all other times of the day Specimen Anatomical Collection Method Collection Time Receive d Time (Source) Location / / Volume Laterality Blood 06/22/2021 11:24 06/22/2021 PM EDT 11:24 PM EDT Izabella Davis MD POINT OF CARE TEST ORDERABLE S Performing Organization Address City/State/[place] [address] POCT Glucose (06/22/2021 8:03 PM EDT) athologist Signature POC Glucose 109 65 - 199 EBONY BIBI mg/dL [facility] Comment: Supplemental ranges: <140 mg/dL before meals <180 mg/dL all other times of the day Specimen Anatomical Collection Method Collection Time Receive d Time (Source) Location / / Volume Laterality Blood 06/22/2021 8:03 PM 1 8:03 EDT PM EDT Izabella Davis MD POINT OF CARE TEST ORDERABLE S Performing Organization Address City/State/[place] [address] POCT Glucose (06/22/2021 7:15 PM EDT) athologist Signature POC Glucose 80 65 - 199 EB[place]Y PACEBIBI mg/dL [facility] Comment: Supplemental ranges: <140 mg/dL before meals <180 mg/dL all other times of the day Specimen Anatomical Collection Method Collection Time Receive d Time (Source) Location / / Volume Laterality Blood 06/22/2021 7:15 PM 1 7:15 EDT PM EDT Izabella Davis MD POINT OF CARE TEST ORDERABLE S Performing Organization Address City/[facility]/[place] [address] POCT Glucose (06/22/2021 4:42 PM EDT) athologist Signature POC Glucose 120 65 - 199 EBONY PACEBIBI mg/dL [facility] Comment: Supplemental ranges: <140 mg/dL before meals <180 mg/dL all other times of the day Specimen Anatomical Collection Method Collection Time Receive d Time (Source) Location / / Volume Laterality Blood 06/22/2021 4:42 PM 1 4:42 EDT PM EDT Izabella Davis MD POINT OF CARE TEST ORDERABLE S Performing Organization Address City/State/[place] [address] POCT Glucose (06/22/2021 4:09 PM EDT) P athologist Signature POC Glucose 140 65 - 199 EBONY BIBI mg/dL [facility] Comment: Supplemental ranges: <140 mg/dL before meals <180 mg/dL all other times of the day Specimen Anatomical Collection Method Collection Time Receive d Time (Source) Location / / Volume Laterality Blood 06/22/2021 4:09 PM 1 4:09 EDT PM EDT Izabella Davis MD POINT OF CARE TEST ORDERABLE S Performing Organization Address City/State/[place] [address] POCT Glucose (06/22/2021 3:41 PM EDT) athologist Signature POC Glucose 114 65 - 199 EBONY BIBI mg/dL [facility] Comment: Supplemental ranges: <140 mg/dL before meals <180 mg/dL all other times of the day Specimen Anatomical Collection Method Collection Time Receive d Time (Source) Location / / Volume Laterality Blood 06/22/2021 3:41 PM 3:41 EDT PM EDT Izabella Davis MD POINT OF CARE TEST ORDERABLE S Performing Organization Address City/State/[place] [address] POCT Glucose (06/22/2021 11:40 AM EDT) athologist Signature POC Glucose 123 65 - 199 EBONY BIBI mg/dL [facility] Comment: Supplemental ranges: <140 mg/dL before meals <180 mg/dL all other times of the day Specimen Anatomical Collection Method Collection Time Receive d Time (Source) Location / / Volume Laterality Blood 06/22/2021 11:40 06/22/2021 AM EDT 11:40 AM EDT Izabella Davis MD POINT OF CARE TEST ORDERABLE S Performing Organization Address City/State/[place] [address] POCT Glucose (06/22/2021 7:16 AM EDT) athologist Signature POC Glucose 108 65 - 199 EBONY BIBI mg/dL [facility] Comment: Supplemental ranges: <140 mg/dL before meals <180 mg/dL all other times of the day Specimen Anatomical Collection Method Collection Time Receive d Time (Source) Location / / Volume Laterality Blood 06/22/2021 7:16 AM 7:16 EDT AM EDT Izabella Davis MD POINT OF CARE TEST ORDERABLE S Performing Organization Address City/State/[place] [address] POCT Glucose (06/22/2021 4:34 AM EDT) P athologist Signature POC Glucose 95 65 - 199 [facility] Comment: Supplemental ranges: <140 mg/dL before meals <180 mg/dL all other times of the day Specimen Anatomical Collection Method Collection Time Receive d Time (Source) Location / / Volume Laterality Blood 06/22/2021 4:34 AM 4:34 EDT AM EDT Izabella Davis MD POINT OF CARE TEST ORDERABLE S Performing Organization Address City/State/ZIP Code Phon e Number [address] (ABNORMAL) Differential, Automated (06/22/2021 4:34 AM EDT) Patholo gist Method Time Signature Neutrophils % 71.8 % [facility] Neutr Abs (ANC) 9.21 (H) 1.70 - [facility] 6.10 [facility] x10(3)/[facility] LABORATORY Lymphocytes % 9.7 % [facility] Lymphocytes Abs 1.2 0.9 - 3.2 [facility] x10(3)/[facility] LABORATORY Monocytes % 7.5 % [facility] Monocyte Abs 1.0 (H) 0.3 - 0.9 [facility] x10(3)/[facility] LABORATORY Eosinophils % 9.3 % [facility] Eosinophils Abs 1.2 (H) 0.0 - 0.4 [facility] x10(3)/[facility] LABORATORY Basophils % 0.6 % [facility] Basophils Abs 0.1 0.0 - 0.1 [facility] x10(3)/[facility] LABORATORY Immature Gran % 1.10 % [facility] Comment: Immature granulocytes(IG's)percentage an d absolute count will include metamyelocytes, myelocytes, and promyelo cytes. Blood smears from CBCs yielding IG's will be scanned manually for keshia hoover. If this scan disagrees with the automated IG or if promyelocytes are not ed, a manual differential will be performed. [place] Gran Abs 0.14 (H) 0.00 - 0.04 x10(3)/[facility] LABORATORY Specimen Anatomical Collection Method Collection Time Receive d Time (Source) Location / / Volume Laterality Blood 06/22/2021 4:34 AM 4:49 EDT AM EDT Resulting Agency Comment Spec In Lab Bonilla Mckeon MD HEMATOLOGY ORDERABLES Performing Organization Address City/State/[place] [address] (ABNORMAL) Hemogram (06/22/2021 4:34 AM EDT) Analysis Performed At Patho logist Time Signature WBC 12.8 (H) 4.0 - 9.5 [facility] x10(3)/[facility] LABORATORY RBC 2.64 (L) 4.00 - [facility] 5.21 [facility] x10(6)/[facility] LABORATORY Hemoglobin 7.7 (L) 11.7 - [facility] 15.[facility] gm/dL [facility] Hematocrit 24.3 (L) 35.7 - [facility] 45.8 % [facility] MCV 92.0 82.6 - [facility] 94.4 [facility] LABORATORY MCH 29.2 27.1 - [facility] pg [facility] LABORATORY MCHC 31.7 31.7 - [facility] gm/dL [facility] LABORATORY Platelets 238 145 - 357 [facility] x10(3)/[facility] LABORATORY RDWSD 50.2 (H) 37.0 - [facility] BIBI 46.0 [facility] LABORATORY RDWCV 14.9 (H) 11.5 - [facility] BIBI 14.1 % [facility] LABORATORY MPV 10.7 7.6 - 12.9 [facility] LABORATORY nRBC % Auto 0.0 % [facility] LABORATORY nRBC Abs Auto 0.000 0.000 - [facility] BIBI 0.000 [facility] x10(3)/[facility] LABORATORY Specimen Anatomical Collection Method Collection Time Receive d Time (Source) Location / / Volume Laterality Blood 06/22/2021 4:34 AM 4:49 EDT AM EDT Resulting Agency Comment Spec In Lab Bonilla Mckeon MD HEMATOLOGY ORDERABLES Performing Organization Address City/State/[place] [address] (ABNORMAL) Basic Metabolic Panel (non-fasting) (06/22/2021 4:34 AM EDT) P athologist Signature Glucose Lvl 88 65 - 199 [facility] mg/dL [facility] LABORATORY Comment: Diabetes: >=200 mg/dL plus symp toms BUN 34 (H) 8 - 18 mg/dL [facility] LABORATORY Creatinine 1.59 (H) 0.70 - 1.20 mg/dL [facility] LABORATORY Sodium 138 135 - 145 mmol/L [facility] LABORATORY Potassium 5.0 3.5 - 5.0 mmol/L [facility] LABORATORY Comment: Please note: ??Patients with WBC >100,00 0 may have falsely elevated Potassium levels. ??For accurate Potassium quantif ication in these patients send serum separator tube (gold top) for subsequent determinations. ??Contact the Clinical Chemistry Laboratory if there are any qu estions. Chloride 105 98 - 107 mmol/L [facility] LABORATORY CO2 24 22 - 31 mmol/L [facility] LABORATORY Anion Gap 9 5 - 15 mmol/L [facility] LABORATORY Calcium 9.2 8.5 - 10.5 mg/dL [facility] LABORATORY Estimated GFR 33 (L) >=60 mL/min/1.73 m?? [facility] LABORATORY Comment: This patient? s estimated glomerular [...] Organization Address City/State/ZIP Code Phon e Number [address] POCT Glucose (06/22/2021 12:28 AM EDT) athologist Signature POC Glucose 182 65 - 199 [place] [facility] mg/dL [facility] LABORATORY Comment: Supplemental ranges: <140 mg/dL before meals <180 mg/dL all other times of the day Specimen Anatomical Collection Method Collection Time Receive d Time (Source) Location / / Volume Laterality Blood 06/22/2021 12:28 06/22/2021 AM EDT 12:28 AM EDT Izabella Davis MD POINT OF CARE TEST ORDERABLE S Performing Organization Address City/[facility]/ZIP Code Phon e Number [address] POCT Glucose (06/21/2021 9:46 PM EDT) athologist Signature POC Glucose 89 65 - 199 [place] mg/dL [facility] LABORATORY Comment: Supplemental ranges: <140 mg/dL before meals <180 mg/dL all other times of the day Specimen Anatomical Collection Method Collection Time Receive d Time (Source) Location / / Volume Laterality Blood 06/21/2021 9:46 PM 9:46 EDT PM EDT Izabella Davis MD POINT OF CARE TEST ORDERABLE S Performing Organization Address City/State/ZIP Code Phon e Number [address] POCT Glucose (06/21/2021 9:11 PM EDT) athologist Signature POC Glucose 77 65 - 199 [place] mg/dL [facility] LABORATORY Comment: Supplemental ranges: <140 mg/dL before meals <180 mg/dL all other times of the day Specimen Anatomical Collection Method Collection Time Receive d Time (Source) Location / / Volume Laterality Blood 06/21/2021 9:11 PM 9:11 EDT PM EDT Izabella Davis MD POINT OF CARE TEST ORDERABLE S Performing Organization Address City/State/ZIP Code Phon e Number [address] POCT Glucose (06/21/2021 4:40 PM EDT) athologist Signature POC Glucose 97 65 - 199 [facility] mg/dL [facility] LABORATORY Comment: Supplemental ranges: <140 mg/dL before meals <180 mg/dL all other times of the day Specimen Anatomical Collection Method Collection Time Receive d Time (Source) Location / / Volume Laterality Blood 06/21/2021 4:40 PM 4:40 EDT PM EDT Izabella Davis MD POINT OF CARE TEST ORDERABLE S Performing Organization Address City/State/[place] [address] POCT Glucose (06/21/2021 11:48 AM EDT) athologist Signature POC Glucose 95 65 - 199 [place] mg/dL [facility] LABORATORY Comment: Supplemental ranges: <140 mg/dL before meals <180 mg/dL all other times of the day Specimen Anatomical Collection Method Collection Time Receive d Time (Source) Location / / Volume Laterality Blood 06/21/2021 11:48 06/21/2021 AM EDT 11:48 AM EDT Izabella Davis MD POINT OF CARE TEST ORDERABLE S Performing Organization Address City/State/[place] [address] COVID-19 PCR (06/21/2021 11:10 AM EDT) [facility] Method Time Signature SARS-CoV-2 Not Detected Not [...] using the Simplexa COVID-19 Direct Assay by [employer] prakash as authorized by the FDA issued Emergency Use Authorization (EUA). This assay is intended for In-vitro Diagnostic (IVD) use with nasopharyngeal swabs collected from individuals meeting the CDC criteria for testing. e assay is performed based on the instructions for use and additional guid ance provided by the FDA. Testing is performed in the Microbiology Laboratory within the Department of Pathology and Laboratory Medicine at [facility], certified under the Clinical Laboratory Improvement Amendmen [...] fact sheets at the following FDA website: https://www.fda.gov/medical-devices/fhwjsgxcfxr-nhcwykw-7289-phnvp-44-uaatotkit- plv-yuyfeyimhurasb-bmqvjsg-devices/ccbkh-vglmuclmlxk-sqss SARS-CoV-2 Source OUTPLACEMENT CONSULTANT Swab [facility] LABORATORY Specimen (Source) Anatomical Collection Method Collection Time Re ceived Time Location / / Volume Laterality Nasopharyngeal Swab 06/21/2021 11:10 07/2 04/2021 AM EDT 2:12 PM EDT Comment: For admission to rehab after di mery. Resulting Agency Comment Spec In Lab Izabella Davis MD MICROBIOLOGY - GENERAL ORDER PAULINO Performing Organization Address City/State/[place] [address] XR Chest PA & [...] who have questions please contact the health client care specialist that requested your imaging first. ? Narrative [...] ho have questions please contact the health client care specialist that requested your imaging first. Izabella Davis MD IMG DX ORDERABLES (ABNORMAL) Basic Metabolic Panel (non-fasting) (06/21/2021 9:40 AM EDT) P athologist Signature Glucose Lvl 140 65 - 199 [facility] mg/dL [facility] LABORATORY Comment: Diabetes: >=200 mg/dL plus symp toms BUN 36 (H) 8 - 18 mg/dL [facility] LABORATORY Creatinine 1.59 (H) 0.70 - 1.20 mg/dL [facility] LABORATORY Sodium 134 (L) 135 - 145 mmol/L [facility] LABORATORY Potassium 4.7 3.5 - 5.0 mmol/L [facility] LABORATORY Comment: Please note: ??Patients with WBC >100,00 0 may have falsely elevated Potassium levels. ??For accurate Potassium quantif ication in these patients send serum separator tube (gold top) for subsequent determinations. ??Contact the Clinical Chemistry Laboratory if there are any qu estions. Chloride 102 98 - 107 mmol/L [facility] LABORATORY CO2 23 22 - 31 mmol/L [facility] LABORATORY Anion Gap 9 5 - 15 mmol/L [facility] LABORATORY Calcium 9.3 8.5 - 10.5 mg/dL [facility] LABORATORY Estimated GFR 33 (L) >=60 mL/min/1.73 m?? [facility] LABORATORY Comment: This patient? s estimated glomerular [...] Organization Address City/State/[place] [address] POCT Glucose (06/21/2021 9:32 AM EDT) P athologist Signature POC Glucose 160 65 - 199 [facility] mg/dL [facility] LABORATORY Comment: Supplemental ranges: <140 mg/dL before meals <180 mg/dL all other times of the day Specimen Anatomical Collection Method Collection Time Receive d Time (Source) Location / / Volume Laterality Blood 06/21/2021 9:32 AM 9:32 EDT AM EDT Izabella Davis MD POINT OF CARE TEST ORDERABLE S Performing Organization Address City/State/[place] [address] (ABNORMAL) Differential, Automated (06/21/2021 7:24 AM EDT) Patholo gist Method Time Signature Neutrophils % 77.4 % [facility] LABORATORY Neutr Abs (ANC) 11.85 (H) 1.70 - [facility] 6.10 [facility] x10(3)/[facility] LABORATORY Lymphocytes % 6.0 % [facility] LABORATORY Lymphocytes Abs 0.9 0.9 - 3.2 [facility] x10(3)/[facility] LABORATORY Monocytes % 6.7 % [facility] LABORATORY Monocyte Abs 1.0 (H) 0.3 - 0.9 [facility] x10(3)/[facility] LABORATORY Eosinophils % 8.0 % [facility] LABORATORY Eosinophils Abs 1.2 (H) 0.0 - 0.4 [facility] x10(3)/[facility] LABORATORY Basophils % 0.9 % [facility] LABORATORY Basophils Abs 0.1 0.0 - 0.1 [facility] x10(3)/[facility] LABORATORY Immature Gran % 1.00 % [facility] LABORATORY Comment: Immature granulocytes(IG's)percentage an d absolute count will include metamyelocytes, myelocytes, and promyelo cytes. Blood smears from CBCs yielding IG's will be scanned manually for concor dance. If this scan disagrees with the automated IG or if promyelocytes are not ed, a manual differential will be performed. [place] Gran Abs 0.16 (H) 0.00 - 0.04 x10(3)/[facility] LABORATORY Specimen Anatomical Collection Method Collection Time Receive d Time (Source) Location / / Volume Laterality Blood 06/21/2021 7:24 AM 7:31 EDT AM EDT Resulting Agency Comment Spec In Lab Papa Jimenez MD HEMATOLOGY ORDERABLES Performing Organization Address City/State/[place] [address] (ABNORMAL) Hemogram (06/21/2021 7:24 AM EDT) Analysis Performed At Patho logist Time Signature WBC 15.3 (H) 4.0 - 9.5 [facility] x10(3)/[facility] LABORATORY RBC 2.85 (L) 4.00 - [facility] 5.21 [facility] x10(6)/[facility] LABORATORY Hemoglobin 8.3 (L) 11.7 - [facility] 15.5 gm/dL [facility] LABORATORY Hematocrit 26.9 (L) 35.7 - [facility] 45.8 % [facility] LABORATORY MCV 94.4 82.6 - [facility] 94.4 [facility] LABORATORY MCH 29.1 27.1 - [facility].0 pg [facility] LABORATORY MCHC 30.9 (L) 31.7 - [facility] 35.0 gm/dL [facility] LABORATORY Platelets 214 145 - 357 [facility] x10(3)/[facility] LABORATORY RDWSD 51.0 (H) 37.0 - [facility] BIBI 46.0 [facility] LABORATORY RDWCV 14.6 (H) 11.5 - [facility] BIBI 14.1 % [facility] LABORATORY MPV 11.2 7.6 - 12.9 [facility] LABORATORY nRBC % Auto 0.0 % [facility] LABORATORY nRBC Abs Auto 0.000 0.000 - [place] 0.000 [facility] x10(3)/[facility] LABORATORY Specimen Anatomical Collection Method Collection Time Receive d Time (Source) Location / / Volume Laterality Blood 06/21/2021 7:24 AM 07/26/202 1 7:31 EDT AM EDT Resulting Agency Comment Spec In Lab Papa Jimenez MD HEMATOLOGY ORDERABLES Performing Organization Address City/State/ZIP Code Phon e Number [address] POCT Glucose (06/21/2021 6:25 AM EDT) P athologist Signature POC Glucose 165 65 - 199 [place] mg/dL [facility] LABORATORY Comment: Supplemental ranges: <140 mg/dL before meals <180 mg/dL all other times of the day Specimen Anatomical Collection Method Collection Time Receive d Time (Source) Location / / Volume Laterality Blood 06/21/2021 6:25 AM 6:25 EDT AM EDT Izabella Davis MD POINT OF CARE TEST ORDERABLE S Performing Organization Address City/[facility]/ZIP Code Phon e Number [address] POCT Glucose (06/21/2021 4:05 AM EDT) athologist Signature POC Glucose 117 65 - 199 [place] mg/dL [facility] LABORATORY Comment: Supplemental ranges: <140 mg/dL before meals <180 mg/dL all other times of the day Specimen Anatomical Collection Method Collection Time Receive d Time (Source) Location / / Volume Laterality Blood 06/21/2021 4:05 AM 4:05 EDT AM EDT Izabella Davis MD POINT OF CARE TEST ORDERABLE S Performing Organization Address City/[facility]/[place] [address] POCT Glucose (06/21/2021 12:12 AM EDT) P athologist Signature POC Glucose 145 65 - 199 [place] mg/dL [facility] LABORATORY Comment: Supplemental ranges: <140 mg/dL before meals <180 mg/dL all other times of the day Specimen Anatomical Collection Method Collection Time Receive d Time (Source) Location / / Volume Laterality Blood 06/21/2021 12:12 06/21/2021 AM EDT 12:12 AM EDT Izabella Davis MD POINT OF CARE TEST ORDERABLE S Performing Organization Address City/State/[place] [address] POCT Glucose (06/20/2021 8:06 PM EDT) athologist Signature POC Glucose 170 65 - 199 [place] mg/dL [facility] LABORATORY Comment: Supplemental ranges: <140 mg/dL before meals <180 mg/dL all other times of the day Specimen Anatomical Collection Method Collection Time Receive d Time (Source) Location / / Volume Laterality Blood 06/20/2021 8:06 PM 8:06 EDT PM EDT Izabella Davis MD POINT OF CARE TEST ORDERABLE S Performing Organization Address City/State/[place] [address] POCT Glucose (06/20/2021 4:39 PM EDT) athologist Signature POC Glucose 195 65 - 199 [place] mg/dL [facility] LABORATORY Comment: Supplemental ranges: <140 mg/dL before meals <180 mg/dL all other times of the day Specimen Anatomical Collection Method Collection Time Receive d Time (Source) Location / / Volume Laterality Blood 06/20/2021 4:39 PM 1 4:39 EDT PM EDT Izabella Davis MD POINT OF CARE TEST ORDERABLE S Performing Organization Address City/State/[place] [address] POCT Glucose (06/20/2021 1:14 PM EDT) athologist Signature POC Glucose 142 65 - 199 [place] mg/dL [facility] LABORATORY Comment: Supplemental ranges: <140 mg/dL before meals <180 mg/dL all other times of the day Specimen Anatomical Collection Method Collection Time Receive d Time (Source) Location / / Volume Laterality Blood 06/20/2021 1:14 PM 1 1:14 EDT PM EDT Izabella Davis MD POINT OF CARE TEST ORDERABLE S Performing Organization Address City/State/[place] [address] (ABNORMAL) Differential, Automated (06/20/2021 8:03 AM EDT) [facility] Method Time Signature Neutrophils % 81.1 % [facility] LABORATORY Neutr Abs (ANC) 14.68 (H) 1.70 - [facility] 6.10 [facility] x10(3)/[facility] LABORATORY Lymphocytes % 6.8 % [facility] LABORATORY Lymphocytes Abs 1.2 0.9 - 3.2 [facility] x10(3)/[facility] LABORATORY Monocytes % 5.8 % [facility] LABORATORY Monocyte Abs 1.0 (H) 0.3 - 0.9 [facility] x10(3)/[facility] LABORATORY Eosinophils % 4.7 % [facility] LABORATORY Eosinophils Abs 0.8 (H) 0.0 - 0.4 [facility] x10(3)/[facility] LABORATORY Basophils % 0.8 % [facility] LABORATORY Basophils Abs 0.1 0.0 - 0.1 [facility] x10(3)/[facility] LABORATORY Immature Gran % 0.80 % [facility] LABORATORY Comment: Immature granulocytes(IG's)percentage an d absolute count will include metamyelocytes, myelocytes, and promyelo cytes. Blood smears from CBCs yielding IG's will be scanned manually for concor dance. If this scan disagrees with the automated IG or if promyelocytes are not ed, a manual differential will be performed. [place] Gran Abs 0.14 (H) 0.00 - 0.04 x10(3)/[facility] LABORATORY Specimen Anatomical Collection Method Collection Time Receive d Time (Source) Location / / Volume Laterality Blood 06/20/2021 8:03 AM 8:19 EDT AM EDT Resulting Agency Comment Spec In Lab Alejandro Enriquez MD HEMATOLOGY ORDERABLES Performing Organization Address City/State/ZIP Code Phon e Number [address] (ABNORMAL) Hemogram (06/20/2021 8:03 AM EDT) Analysis Performed At Patho logist Time Signature WBC 18.1 (H) 4.0 - 9.5 [facility] LABORATORY RBC 2.62 (L) 4.00 - [place] [facility] 5.21 [facility] x10(6)/[facility] LABORATORY Hemoglobin 7.6 (L) 11.7 - [facility] 15.[facility] gm/dL [facility] LABORATORY Hematocrit 24.6 (L) 35.7 - [facility] 45.8 % [facility] LABORATORY MCV 93.9 82.6 - [facility] 94.4 [facility] LABORATORY MCH 29.0 27.1 - [place] [facility] 32.0 pg [facility] LABORATORY MCHC 30.9 (L) 31.7 - [place] [facility] 35.0 gm/dL [facility] LABORATORY Platelets 195 145 - 357 [facility] x10(3)/[facility] LABORATORY RDWSD 50.5 (H) 37.0 - [place] [facility] 46.0 [facility] LABORATORY RDWCV 14.7 (H) 11.5 - [facility] BIBI 14.1 % [facility] LABORATORY MPV 11.1 7.6 - 12.9 [facility] LABORATORY nRBC % Auto 0.0 % [facility] LABORATORY nRBC Abs Auto 0.000 0.000 - [facility] BIBI 0.000 [facility] x10(3)/[facility] LABORATORY Specimen Anatomical Collection Method Collection Time Receive d Time (Source) Location / / Volume Laterality Blood 06/20/2021 8:03 AM 8:19 EDT AM EDT Resulting Agency Comment Spec In Lab Alejandro Enriquez MD HEMATOLOGY ORDERABLES Performing Organization Address City/State/[place] [address] (ABNORMAL) Basic Metabolic Panel (non-fasting) (06/20/2021 8:03 AM EDT) P athologist Signature Glucose Lvl 186 65 - 199 [facility]dL [facility] LABORATORY Comment: Diabetes: >=200 mg/dL plus symp toms BUN 33 (H) 8 - 18 mg/dL [facility] LABORATORY Creatinine 1.59 (H) 0.70 - 1.20 mg/dL [facility] LABORATORY Sodium 132 (L) 135 - 145 mmol/L [facility] LABORATORY Potassium 4.8 3.5 - 5.0 mmol/L [facility] LABORATORY Comment: Please note: ??Patients with WBC >100,00 0 may have falsely elevated Potassium levels. ??For accurate Potassium quantif ication in these patients send serum separator tube (gold top) for subsequent determinations. ??Contact the Clinical Chemistry Laboratory if there are any qu estions. Chloride 101 98 - 107 mmol/L [facility] LABORATORY CO2 21 (L) 22 - 31 mmol/L [facility] LABORATORY Anion Gap 10 5 - 15 mmol/L [facility] LABORATORY Calcium 9.0 8.5 - 10.5 mg/dL [facility] LABORATORY Estimated GFR 33 (L) >=60 mL/min/1.73 m?? [facility] LABORATORY Comment: This patient? s estimated glomerular [...] Organization Address City/State/[place] [address] (ABNORMAL) POCT Glucose (06/20/2021 7:30 AM EDT) athologist Signature POC Glucose 236 (H) 65 - 199 [facility] mg/dL [facility] LABORATORY Comment: Supplemental ranges: <140 mg/dL before meals <180 mg/dL all other times of the day Specimen Anatomical Collection Method Collection Time Receive d Time (Source) Location / / Volume Laterality Blood 06/20/2021 7:30 AM 7:30 EDT AM EDT Izabella Davis MD POINT OF CARE TEST ORDERABLE S Performing Organization Address City/State/ZIP Code Phon e Number [address] POCT Glucose (06/20/2021 3:09 AM EDT) athologist Signature POC Glucose 124 65 - 199 [facility] LABORATORY Comment: Supplemental ranges: <140 mg/dL before meals <180 mg/dL all other times of the day Specimen Anatomical Collection Method Collection Time Receive d Time (Source) Location / / Volume Laterality Blood 06/20/2021 3:09 AM 3:09 EDT AM EDT Izabella Davis MD POINT OF CARE TEST ORDERABLE S Performing Organization Address City/State/ZIP Code Phon e Number [address] POCT Glucose (06/20/2021 12:53 AM EDT) athologist Signature POC Glucose 147 65 - 199 [place] mg/dL [facility] LABORATORY Comment: Supplemental ranges: <140 mg/dL before meals <180 mg/dL all other times of the day Specimen Anatomical Collection Method Collection Time Receive d Time (Source) Location / / Volume Laterality Blood 06/20/2021 12:53 06/20/2021 AM EDT 12:53 AM EDT Izabella Davis MD POINT OF CARE TEST ORDERABLE S Performing Organization Address City/State/ZIP Code Phon e Number [address] (ABNORMAL) POCT Glucose (06/19/2021 8:28 PM EDT) P athologist Signature POC Glucose 228 (H) 65 - 199 [facility] LABORATORY Comment: Supplemental ranges: <140 mg/dL before meals <180 mg/dL all other times of the day Specimen Anatomical Collection Method Collection Time Receive d Time (Source) Location / / Volume Laterality Blood 06/19/2021 8:28 PM 1 8:28 EDT PM EDT Izabella Davis MD POINT OF CARE TEST ORDERABLE S Performing Organization Address City/State/ZIP Code Phon e Number [address] POCT Glucose (06/19/2021 5:27 PM EDT) athologist Signature POC Glucose 180 65 - 199 [facility] LABORATORY Comment: Supplemental ranges: <140 mg/dL before meals <180 mg/dL all other times of the day Specimen Anatomical Collection Method Collection Time Receive d Time (Source) Location / / Volume Laterality Blood 06/19/2021 5:27 PM 1 5:27 EDT PM EDT Izabella Davis MD POINT OF CARE TEST ORDERABLE S Performing Organization Address City/[facility]/[place] [address] EKG 12 Lead (06/19/2021 3:21 PM EDT) Component Value Ref Range Test Analysis Performed Pathologis t Method Time At Signature Ventricular rate 96 BPM MUSE SYSTEM Atrial Rate 96 BPM MUSE SYSTEM P-R Interval 160 ms MUSE SYSTEM QRS Duration 80 ms MUSE SYSTEM Q-T Interval 328 ms MUSE SYSTEM QTC Calculated 414 ms MUSE SYSTEM (Bezet) Calculated P [place] 56 degrees MUSE SYSTEM Calculated R [place] 53 degrees MUSE SYSTEM Calculated T [place] 180 degrees MUSE SYSTEM INTERPRETATION Normal sinus [...] Davis MD ECG ORDERABLES Performing Organization Address City/State/ZIP Code Phon e Number MUSE SYSTEM POCT Glucose (06/19/2021 12:13 PM EDT) athologist Signature POC Glucose 125 65 - 199 EBONY BIBI mg/dL [facility] Comment: Supplemental ranges: <140 mg/dL before meals <180 mg/dL all other times of the day Specimen Anatomical Collection Method Collection Time Receive d Time (Source) Location / / Volume Laterality Blood 06/19/2021 12:13 06/19/2021 PM EDT 12:13 PM EDT Izabella Davis MD POINT OF CARE TEST ORDERABLE S Performing Organization Address City/State/[place] [address] POCT Glucose (06/19/2021 8:07 AM EDT) athologist Signature POC Glucose 144 65 - 199 EBONY BIBI mg/dL [facility] Comment: Supplemental ranges: <140 mg/dL before meals <180 mg/dL all other times of the day Specimen Anatomical Collection Method Collection Time Receive d Time (Source) Location / / Volume Laterality Blood 06/19/2021 8:07 AM 8:07 EDT AM EDT Izabella Davis MD POINT OF CARE TEST ORDERABLE S Performing Organization Address City/State/[place] [address] POCT Glucose (06/19/2021 4:00 AM EDT) athologist Signature POC Glucose 147 65 - 199 EBONY BIBI mg/dL [facility] Comment: Supplemental ranges: <140 mg/dL before meals <180 mg/dL all other times of the day Specimen Anatomical Collection Method Collection Time Receive d Time (Source) Location / / Volume Laterality Blood 06/19/2021 4:00 AM 4:00 EDT AM EDT Izabella Davis MD POINT OF CARE TEST ORDERABLE S Performing Organization Address City/State/[place] [address] POCT Glucose (06/18/2021 11:06 PM EDT) P athologist Signature POC Glucose 149 65 - 199 EBONY BIBI mg/dL [facility] Comment: Supplemental ranges: <140 mg/dL before meals <180 mg/dL all other times of the day Specimen Anatomical Collection Method Collection Time Receive d Time (Source) Location / / Volume Laterality Blood 06/18/2021 11:06 06/18/2021 PM EDT 11:06 PM EDT Izabella Davis MD POINT OF CARE TEST ORDERABLE S Performing Organization Address City/State/ZIP Code Phon e Number [place] [id number] (ABNORMAL) Hemogram (06/18/2021 10:17 PM EDT) Analysis Performed At Patho logist Time Signature WBC 23.0 (H) 4.0 - 9.5 EBONY BIBI x10(3)/[facility] LABORATORY RBC 2.90 (L) 4.00 - EBONY BIBI 5.21 [facility] x10(6)/[facility] LABORATORY Hemoglobin 8.6 (L) 11.7 - EBONY BIBI 15.5 gm/dL [facility] Hematocrit 28.2 (L) 35.7 - EBONY BIBI 45.8 % [facility] MCV 97.2 (H) 82.6 - EBONY BIBI 94.4 [facility] LABORATORY MCH 29.7 27.1 - EBONY BIBI 32.0 pg [facility] MCHC 30.5 (L) 31.7 - EBONY BIBI 35.0 gm/dL [facility] Platelets 190 145 - 357 EBONY BIBI x10(3)/[facility] LABORATORY RDWSD 54.0 (H) 37.0 - EBONY BIBI 46.0 [facility] LABORATORY RDWCV 15.0 (H) 11.5 - EBONY BIBI 14.1 % [facility] MPV 11.4 7.6 - 12.9 [facility] n[facility] % Auto 0.0 % [facility] nRBC Abs Auto 0.000 0.000 - EBONY [place] 0.000 [facility] x10(3)/[facility] LABORATORY Specimen Anatomical Collection Method Collection Time Receive d Time (Source) Location / / Volume Laterality Blood 06/18/2021 10:17 06/18/2021 PM EDT 10:23 PM EDT Resulting Agency Comment Spec In Lab Izabella Davis MD HEMATOLOGY ORDERABLES Performing Organization Address City/State/[place] [address] POCT Glucose (06/18/2021 8:11 PM EDT) athologist Signature POC Glucose 182 65 - 199 [facility] Comment: Supplemental ranges: <140 mg/dL before meals <180 mg/dL all other times of the day Specimen Anatomical Collection Method Collection Time Receive d Time (Source) Location / / Volume Laterality Blood 06/18/2021 8:11 PM 1 8:11 EDT PM EDT Izabella Davis MD POINT OF CARE TEST ORDERABLE S Performing Organization Address City/State/ZIP Code Phon e Number [address] (ABNORMAL) POCT Glucose (06/18/2021 6:30 PM EDT) athologist Signature POC Glucose 225 (H) 65 - 199 [facility] Comment: Supplemental ranges: <140 mg/dL before meals <180 mg/dL all other times of the day Specimen Anatomical Collection Method Collection Time Receive d Time (Source) Location / / Volume Laterality Blood 06/18/2021 6:30 PM 1 6:30 EDT PM EDT Izabella Davis MD POINT OF CARE TEST ORDERABLE S Performing Organization Address City/State/[place] [address] (ABNORMAL) Basic Metabolic Panel (non-fasting) (06/18/2021 6:24 PM EDT) P athologist Signature Glucose Lvl 208 (H) 65 - 199 [facility] mg/dL [facility] Comment: Diabetes: >=200 mg/dL plus symp toms BUN 34 (H) 8 - 18 mg/dL [facility] Creatinine 1.54 (H) 0.70 - 1.20 mg/dL [facility] Sodium 133 (L) 135 - 145 mmol/L [facility] Potassium 5.2 (H) 3.5 - 5.0 mmol/L [facility] Comment: Please note: ??Patients with WBC >100,00 0 may have falsely elevated Potassium levels. ??For accurate Potassium quantif ication in these patients send serum separator tube (gold top) for subsequent determinations. ??Contact the Clinical Chemistry Laboratory if there are any qu estions. Chloride 103 98 - 107 mmol/L [facility] CO2 20 (L) 22 - 31 mmol/L [facility] Anion Gap 10 5 - 15 mmol/L [facility] Calcium 8.4 (L) 8.5 - 10.5 mg/dL [facility] Estimated GFR 35 (L) >=60 mL/min/1.73 m?? [facility] Comment: This patient? s estimated glomerular [...] Organization Address City/State/[place] [address] POCT Glucose (06/18/2021 1:24 PM EDT) athologist Signature POC Glucose 167 65 - 199 EBONY BIBI mg/dL [facility] Comment: Supplemental ranges: <140 mg/dL before meals <180 mg/dL all other times of the day Specimen Anatomical Collection Method Collection Time Receive d Time (Source) Location / / Volume Laterality Blood 06/18/2021 1:24 PM 1 1:24 EDT PM EDT Izabella Davis MD POINT OF CARE TEST ORDERABLE S Performing Organization Address City/State/[place] [address] POCT Glucose (06/18/2021 8:22 AM EDT) athologist Signature POC Glucose 160 65 - 199 EBONY BIBI mg/dL [facility] Comment: Supplemental ranges: <140 mg/dL before meals <180 mg/dL all other times of the day Specimen Anatomical Collection Method Collection Time Receive d Time (Source) Location / / Volume Laterality Blood 06/18/2021 8:22 AM 1 8:22 EDT AM EDT Izabella Davis MD POINT OF CARE TEST ORDERABLE S Performing Organization Address City/State/[place] [address] (ABNORMAL) Differential, Automated (06/18/2021 5:00 AM EDT) [facility] gist Method Time Signature Neutrophils % 85.9 % [facility] Neutr Abs (ANC) 13.98 (H) 1.70 - [facility] 6.10 [facility] x10(3)/[facility] LABORATORY Lymphocytes % 5.8 % [facility] Lymphocytes Abs 1.0 0.9 - 3.2 [facility] x10(3)/[facility] LABORATORY Monocytes % 6.0 % [facility] Monocyte Abs 1.0 (H) 0.3 - 0.9 [facility] x10(3)/[facility] LABORATORY Eosinophils % 0.9 % [facility] Eosinophils Abs 0.2 0.0 - 0.4 [facility] x10(3)/[facility] LABORATORY Basophils % 0.7 % [facility] Basophils Abs 0.1 0.0 - 0.1 [facility] x10(3)/[facility] LABORATORY Immature Gran % 0.70 % [facility] Comment: Immature granulocytes(IG's)percentage an d absolute count will include metamyelocytes, myelocytes, and promyelo cytes. Blood smears from CBCs yielding IG's will be scanned manually for concor dance. If this scan disagrees with the automated IG or if promyelocytes are not ed, a manual differential will be performed. [place] Gran Abs 0.11 (H) 0.00 - 0.04 x10(3)/[facility] LABORATORY Specimen Anatomical Collection Method Collection Time Receive d Time (Source) Location / / Volume Laterality Blood 06/18/2021 5:00 AM 5:15 EDT AM EDT Resulting Agency Comment Spec In Lab Papa Jimenez MD HEMATOLOGY ORDERABLES Performing Organization Address City/State/[place] [address] (ABNORMAL) Hemogram (06/18/2021 5:00 AM EDT) Analysis Performed At Patho logist Time Signature WBC 16.3 (H) 4.0 - 9.5 [facility] x10(3)/[facility] LABORATORY RBC 2.45 (L) 4.00 - [facility] 5.21 [facility] x10(6)/[facility] LABORATORY Hemoglobin 7.5 (L) 11.7 - [facility] 15.5 gm/dL [facility] Hematocrit 23.9 (L) 35.7 - [facility] 45.8 % [facility] MCV 97.6 (H) 82.6 - [facility] 94.4 fL [facility] MCH 30.6 27.1 - [facility] 32.0 [facility] LABORATORY MCHC 31.4 (L) 31.7 - [facility] BIBI 35.0 gm/dL [facility] Platelets 146 145 - 357 [facility] x10(3)/[facility] LABORATORY RDWSD 53.6 (H) 37.0 - [facility] BIBI 46.0 [facility] LABORATORY RDWCV 15.0 (H) 11.5 - [facility] 14.1 % [facility] MPV 11.2 7.6 - 12.9 [facility] LABORATORY nRBC % Auto 0.0 % [facility] nRBC Abs Auto 0.000 0.000 - [facility] 0.000 [facility] x10(3)/[facility] LABORATORY Specimen Anatomical Collection Method Collection Time Receive d Time (Source) Location / / Volume Laterality Blood 06/18/2021 5:00 AM 5:15 EDT AM EDT Resulting Agency Comment Spec In Lab Papa Jimenez MD HEMATOLOGY ORDERABLES Performing Organization Address City/State/[place] [address] (ABNORMAL) Basic Metabolic Panel (non-fasting) (06/18/2021 5:00 AM EDT) P athologist Signature Glucose Lvl 114 65 - 199 [facility] mg/dL [facility] Comment: Diabetes: >=200 mg/dL plus symp toms BUN 32 (H) 8 - 18 mg/dL [facility] Creatinine 1.63 (H) 0.70 - 1.20 mg/dL [facility] Sodium 137 135 - 145 mmol/L [facility] Potassium 4.8 3.5 - 5.0 mmol/L [facility] Comment: Please note: ??Patients with WBC >100,00 0 may have falsely elevated Potassium levels. ??For accurate Potassium quantif ication in these patients send serum separator tube (gold top) for subsequent determinations. ??Contact the Clinical Chemistry Laboratory if there are any qu estions. Chloride 107 98 - 107 mmol/L [facility] CO2 22 22 - 31 mmol/L [facility] Anion Gap 8 5 - 15 mmol/L [facility] Calcium 8.1 (L) 8.5 - 10.5 mg/dL [facility] Estimated GFR 32 (L) >=60 mL/min/1.73 m?? [facility] Comment: This patient? s estimated glomerular [...] Organization Address City/State/ZIP Code Phon e Number [address] POCT Glucose (06/18/2021 3:09 AM EDT) athologist Signature POC Glucose 98 65 - 199 [facility] mg/dL [facility] Comment: Supplemental ranges: <140 mg/dL before meals <180 mg/dL all other times of the day Specimen Anatomical Collection Method Collection Time Receive d Time (Source) Location / / Volume Laterality Blood 06/18/2021 3:09 AM 3:09 EDT AM EDT Izabella Davis MD POINT OF CARE TEST ORDERABLE S Performing Organization Address City/State/[place] [address] POCT Glucose (06/17/2021 11:48 PM EDT) athologist Signature POC Glucose 167 65 - 199 EBONY BIBI mg/dL [facility] Comment: Supplemental ranges: <140 mg/dL before meals <180 mg/dL all other times of the day Specimen Anatomical Collection Method Collection Time Receive d Time (Source) Location / / Volume Laterality Blood 06/17/2021 11:48 06/17/2021 PM EDT 11:48 PM EDT Izabella Davis MD POINT OF CARE TEST ORDERABLE S Performing Organization Address City/State/[place] [address] (ABNORMAL) POCT Glucose (06/17/2021 10:22 PM EDT) athologist Signature POC Glucose 207 (H) 65 - 199 [facility] Comment: Supplemental ranges: <140 mg/dL before meals <180 mg/dL all other times of the day Specimen Anatomical Collection Method Collection Time Receive d Time (Source) Location / / Volume Laterality Blood 06/17/2021 10:22 06/17/2021 PM EDT 10:22 PM EDT Izabella Davis MD POINT OF CARE TEST ORDERABLE S Performing Organization Address City/State/[place] [address] (ABNORMAL) POCT Glucose (06/17/2021 7:51 PM EDT) athologist Signature POC Glucose 284 (H) 65 - 199 [facility] Comment: Supplemental ranges: <140 mg/dL before meals <180 mg/dL all other times of the day Specimen Anatomical Collection Method Collection Time Receive d Time (Source) Location / / Volume Laterality Blood 06/17/2021 7:51 PM 7:51 EDT PM EDT Izabella Davis MD POINT OF CARE TEST ORDERABLE S Performing Organization Address City/State/[place] [address] (ABNORMAL) POCT Glucose (06/17/2021 6:08 PM EDT) P athologist Signature POC Glucose 276 (H) 65 - 199 [facility] Comment: Supplemental ranges: <140 mg/dL before meals <180 mg/dL all other times of the day Specimen Anatomical Collection Method Collection Time Receive d Time (Source) Location / / Volume Laterality Blood 06/17/2021 6:08 PM 1 6:08 EDT PM EDT Izabella Davis MD POINT OF CARE TEST ORDERABLE S Performing Organization Address City/State/[place] [address] (ABNORMAL) POCT Glucose (06/17/2021 3:54 PM EDT) P athologist Signature POC Glucose 229 (H) 65 - 199 [facility]dL [facility] Comment: Supplemental ranges: <140 mg/dL before meals <180 mg/dL all other times of the day Specimen Anatomical Collection Method Collection Time Receive d Time (Source) Location / / Volume Laterality Blood 06/17/2021 3:54 PM 1 3:54 EDT PM EDT Izabella Davis MD POINT OF CARE TEST ORDERABLE S Performing Organization Address City/State/[place] [address] Lavender Tube HOLD (06/17/2021 2:06 PM EDT) Patholo gist Method Time Signature Lavender Hold Sample in [facility]. [facility] Specimen Anatomical Collection Method Collection Time Receive d Time (Source) Location / / Volume Laterality Blood Venous Draw / 06/17/2021 2:06 PM 06/17/20 21 2:16 Unknown EDT PM EDT Daysi ESTRELLA HEMATOLOGY ORDERABLES Performing Organization Address City/State/[place] [address] (ABNORMAL) Hemogram (06/17/2021 2:06 PM EDT) Analysis Performed At Patho logist Time Signature WBC 22.5 (H) 4.0 - 9.5 EBONY [facility] x10(3)/[facility] LABORATORY RBC 3.06 (L) 4.00 - EBONY [facility] 5.21 [facility] x10(6)/[facility] LABORATORY Hemoglobin 9.2 (L) 11.7 - [place]Y [place] 15.5 gm/dL [facility] Hematocrit 28.6 (L) 35.7 - [place]Y [place] 45.8 % [facility] MCV 93.5 82.6 - [facility] 94.4 [facility] LABORATORY MCH 30.1 27.1 - [place]Y [place] 32.0 pg [facility] MCHC 32.2 31.7 - [place]Y [place] 35.0 gm/dL [facility] Platelets 206 145 - 357 [facility] x10(3)/[facility] LABORATORY RDWSD 51.8 (H) 37.0 - EBONY [place] 46.0 [facility] LABORATORY RDWCV 15.1 (H) 11.5 - [facility] BIBI 14.1 % [facility] MPV 11.1 7.6 - 12.9 [facility] LABORATORY nRBC % Auto 0.0 % [facility] nRBC Abs Auto 0.000 0.000 - EBONY [place] 0.000 [facility] x10(3)/[facility] LABORATORY Specimen Anatomical Collection Method Collection Time Receive d Time (Source) Location / / Volume Laterality Blood 06/17/2021 2:06 PM 2:15 EDT PM EDT Resulting Agency Comment Spec In Lab Izabella Davis MD HEMATOLOGY ORDERABLES Performing Organization Address City/State/[place] [address] EKG 12 Lead (06/17/2021 1:51 PM EDT) Component Value Ref Range Test Analysis Performed Pathologis t Method Time At Signature Ventricular rate 104 BPM MUSE SYSTEM Atrial Rate 104 BPM MUSE SYSTEM P-R Interval 152 ms MUSE SYSTEM QRS Duration 130 ms MUSE SYSTEM Q-T Interval 380 ms MUSE SYSTEM QTC Calculated 499 ms MUSE SYSTEM (Bezet) Calculated P [place] 45 degrees MUSE SYSTEM Calculated R [place] 36 degrees MUSE SYSTEM Calculated T [place] 4 degrees MUSE SYSTEM INTERPRETATION Sinus tachycardia MUSE SY STEM Right bundle branch block Abnormal ECG When compared with ECG of 21-DEC-2010 16:45, Right bundle branch block is now Present Confirmed by MD Dewey, Ozzy Esparza ([id number]) on 06/17/2021 2:21:2 7 PM Specimen Anatomical Collection Method Collection Time Receive d Time (Source) Location / / Volume Laterality 06/17/2021 1:51 PM 1 2:21 EDT PM EDT Izabella Davis MD ECG ORDERABLES Performing Organization Address City/State/ZIP Code Phon e Number MUSE SYSTEM (ABNORMAL) POCT Glucose (06/17/2021 1:35 PM EDT) athologist Signature POC Glucose 233 (H) 65 - 199 EBONY BIBI mg/dL [facility] Comment: Supplemental ranges: <140 mg/dL before meals <180 mg/dL all other times of the day Specimen Anatomical Collection Method Collection Time Receive d Time (Source) Location / / Volume Laterality Blood 06/17/2021 1:35 PM 1 1:35 EDT PM EDT Izabella Davis MD POINT OF CARE TEST ORDERABLE S Performing Organization Address City/[facility]/[place] [address] (ABNORMAL) POCT Glucose (06/17/2021 12:40 PM EDT) athologist Signature POC Glucose 213 (H) 65 - 199 EBONY BIBI mg/dL [facility] Comment: Supplemental ranges: <140 mg/dL before meals <180 mg/dL all other times of the day Specimen Anatomical Collection Method Collection Time Receive d Time (Source) Location / / Volume Laterality Blood 06/17/2021 12:40 06/17/2021 PM EDT 12:40 PM EDT Izabella Davis MD POINT OF CARE TEST ORDERABLE S Performing Organization Address City/State/[place] [address] (ABNORMAL) POCT Glucose (06/17/2021 11:15 AM EDT) athologist Signature POC Glucose 228 (H) 65 - 199 EBONY BIBI mg/dL [facility] Comment: Supplemental ranges: <140 mg/dL before meals <180 mg/dL all other times of the day Specimen Anatomical Collection Method Collection Time Receive d Time (Source) Location / / Volume Laterality Blood 06/17/2021 11:15 06/17/2021 AM EDT 11:15 AM EDT Izabella Davis MD POINT OF CARE TEST ORDERABLE S Performing Organization Address City/State/[place] [address] POCT Glucose (06/17/2021 9:19 AM EDT) athologist Signature POC Glucose 115 65 - 199 EBONY BIBI mg/dL [facility] Comment: Supplemental ranges: <140 mg/dL before meals <180 mg/dL all other times of the day Specimen Anatomical Collection Method Collection Time Receive d Time (Source) Location / / Volume Laterality Blood 06/17/2021 9:19 AM 9:19 EDT AM EDT Izabella Davis MD POINT OF CARE TEST ORDERABLE S Performing Organization Address City/State/ZIP Code Phon e Number [place] [id number] POCT Glucose (06/17/2021 7:54 AM EDT) athologist Signature POC Glucose 109 65 - 199 EBONY BIBI mg/dL [facility] Comment: Supplemental ranges: <140 mg/dL before meals <180 mg/dL all other times of the day Specimen Anatomical Collection Method Collection Time Receive d Time (Source) Location / / Volume Laterality Blood 06/17/2021 7:54 AM 7:54 EDT AM EDT Izabella Davis MD POINT OF CARE TEST ORDERABLE S Performing Organization Address City/State/ZIP Code Phon e Number [place] [id number] [facility] [address]ORY [address] POCT Glucose (06/17/2021 3:58 AM EDT) athologist Signature POC Glucose 179 65 - 199 EBONY BIBI mg/dL [facility] Comment: Supplemental ranges: <140 mg/dL before meals <180 mg/dL all other times of the day Specimen Anatomical Collection Method Collection Time Receive d Time (Source) Location / / Volume Laterality Blood 06/17/2021 3:58 AM 1 3:58 EDT AM EDT Izabella Davis MD POINT OF CARE TEST ORDERABLE S Performing Organization Address City/[facility]/[place] [address] (ABNORMAL) POCT Glucose (06/17/2021 1:59 AM EDT) P athologist Signature POC Glucose 251 (H) 65 - 199 [facility] mg/dL [facility] Comment: Supplemental ranges: <140 mg/dL before meals <180 mg/dL all other times of the day Specimen Anatomical Collection Method Collection Time Receive d Time (Source) Location / / Volume Laterality Blood 06/17/2021 1:59 AM 1 1:59 EDT AM EDT Izabella Davis MD POINT OF CARE TEST ORDERABLE S Performing Organization Address City/[facility]/[place] [address] (ABNORMAL) Hemoglobin A1c (06/17/2021 1:15 AM EDT) Analysis Performed At Patho logist Time Signature Hemoglobin A1C 5.9 (H) 4.3 - 5.6 [facility] % [facility] Comment: Reference Range: 4.3 - 5.6% [...] Mellitus, Diabetes Care 2013; 36: Suppl. 1, S67-74 Est Avg Gluc 123 mg/dL [facility] Comment: eAG equivalents for HbA1c percentages: HbA1c(%) ?eAG(mg/dL) 6.0 ?126 6.5 ?140 7.0 ?154 7.5 ?169 8.0 ?183 8.5 ?197 9.0 ?212 9.5 ?226 10.0 ? 240 Limitations: The eAG calculation has not been validated on women, individuals below 18 years old and above 70 years old, and individuals with hemoglobinopathies. Additional resources are available on [facility] ADA website. Simone VILLARREAL, Patricia J, Guillermina R, et al. ??Tr anslating the A1C assay into estimated average glucose values. ??Diabetes Care 2008:31(8):5898-6260. Specimen Anatomical Collection Method Collection Time Receive d Time (Source) Location / / Volume Laterality Blood Venous Draw / 06/17/2021 1:15 AM 06/17/20 21 8:32 Unknown EDT AM EDT Resulting Agency Comment Spec In Lab Lexus Georges APRN CHEMISTRY ORDERABLES Performing Organization Address City/State/[place] [address] Scan, Peripheral Blood (06/17/2021 1:15 AM EDT) [facility] gist Method Time Signature Plat Estimate Normal [facility]ORATORY RBC Morphology Abnormal [facility] Macrocytes 1-5 /HPF [facility] Microcytes 1-5 /HPF [facility] Hypochromia Slight [facility] Ovalocytes 1-5 /HPF [facility] Tear Drop Cells 1-5 /HPF [facility]OR[facility] Specimen Anatomical Collection Method Collection Time Receive d Time (Source) Location / / Volume Laterality Blood 06/17/2021 1:15 AM 07/22/202 1 1:23 EDT AM EDT Resulting Agency Comment Spec In Lab Papa Jimenez MD HEMATOLOGY ORDERABLES Performing Organization Address City/State/[place] [address] (ABNORMAL) Differential, Automated (06/17/2021 1:15 AM EDT) [facility] Method Time Signature Neutrophils % 90.7 % [facility]OR[facility]ORY Neutr Abs (ANC) 20.55 (H) 1.70 - [facility] 6.10 [facility] x10(3)/[facility] L LABORATORY Lymphocytes % 3.6 % [facility]OR[facility]ORY Lymphocytes Abs 0.8 (L) 0.9 - 3.2 [facility] x10(3)/[facility] LABORATORY Monocytes % 3.4 % [facility]ORATORY Monocyte Abs 0.8 0.3 - 0.9 [facility] x10(3)/[facility] LABORATORY Eosinophils % 0.4 % [facility] LABORATORY Eosinophils Abs 0.1 0.0 - 0.4 [facility] x10(3)/[facility] LABORATORY Basophils % 0.6 % [facility] LABORATORY Basophils Abs 0.1 0.0 - 0.1 [facility] x10(3)/[facility] LABORATORY Immature Gran % 1.30 % [facility] Comment: Immature granulocytes(IG's)percentage an d absolute count will include metamyelocytes, myelocytes, and promyelo cytes. Blood smears from CBCs yielding IG's will be scanned manually for concor dance. If this scan disagrees with the automated IG or if promyelocytes are not ed, a manual differential will be performed. [place] Gran Abs 0.29 (H) 0.00 - 0.04 x10(3)/[facility] LABORATORY Specimen Anatomical Collection Method Collection Time Receive d Time (Source) Location / / Volume Laterality Blood 06/17/2021 1:15 AM 1 1:23 EDT AM EDT Resulting Agency Comment Spec In Lab Papa Jimenez MD HEMATOLOGY ORDERABLES Performing Organization Address City/State/[place] [address] (ABNORMAL) Hemogram (06/17/2021 1:15 AM EDT) Analysis Performed At Patho logist Time Signature WBC 22.7 (H) 4.0 - 9.5 [facility] LABORATORY RBC 2.97 (L) 4.00 - EBONY BIBI 5.21 [facility] x10(6)/[facility] LABORATORY Hemoglobin 8.9 (L) 11.7 - [facility] 15.[facility] gm/dL [facility] LABORATORY Hematocrit 28.4 (L) 35.7 - [facility] 45.8 % [facility] LABORATORY MCV 95.6 (H) 82.6 - [facility] 94.4 [facility] LABORATORY MCH 30.0 27.1 - [facility] 32.0 pg [facility] LABORATORY MCHC 31.3 (L) 31.7 - [facility] 35.0 gm/dL [facility] LABORATORY Platelets 207 145 - 357 [facility] x10(3)/[facility] LABORATORY RDWSD 52.3 (H) 37.0 - [facility] 46.0 [facility] LABORATORY RDWCV 15.0 (H) 11.5 - [facility] BIBI 14.1 % [facility] LABORATORY MPV 10.7 7.6 - 12.9 [facility] LABORATORY nRBC % Auto 0.0 % [facility] LABORATORY nRBC Abs Auto 0.000 0.000 - [facility] BIBI 0.000 [facility] x10(3)/[facility] LABORATORY Specimen Anatomical Collection Method Collection Time Receive d Time (Source) Location / / Volume Laterality Blood 06/17/2021 1:15 AM 1:23 EDT AM EDT Resulting Agency Comment Spec In Lab Papa Jimenez MD HEMATOLOGY ORDERABLES Performing Organization Address City/State/ZIP Code Phon e Number [place] [id number] Drive (ABNORMAL) Basic Metabolic Panel (non-fasting) (06/17/2021 1:15 AM EDT) athologist Signature Glucose Lvl 254 (H) 65 - 199 [facility] mg/dL [facility] LABORATORY Comment: Diabetes: >=200 mg/dL plus symp toms BUN 32 (H) 8 - 18 mg/dL [facility] LABORATORY Creatinine 1.50 (H) 0.70 - 1.20 mg/dL [facility] LABORATORY Sodium 140 135 - 145 mmol/L [facility] LABORATORY Potassium 5.1 (H) 3.5 - 5.0 mmol/L [facility] LABORATORY Comment: Please note: ??Patients with WBC >100,00 0 may have falsely elevated Potassium levels. ??For accurate Potassium quantif ication in these patients send serum separator tube (gold top) for subsequent determinations. ??Contact the Clinical Chemistry Laboratory if there are any qu estions. Chloride 106 98 - 107 mmol/L [facility] LABORATORY CO2 22 22 - 31 mmol/L [facility] LABORATORY Anion Gap 12 5 - 15 mmol/L [facility] LABORATORY Calcium 8.4 (L) 8.5 - 10.5 mg/dL [facility] LABORATORY Estimated GFR 36 (L) >=60 mL/min/1.73 m?? [facility] LABORATORY Comment: This patient? s estimated glomerular [...] Organization Address City/State/[place] [address] (ABNORMAL) POCT Glucose (06/16/2021 11:01 PM EDT) P athologist Signature POC Glucose 249 (H) 65 - 199 [facility] MTZ mg/dL [facility] LABORATORY Comment: Supplemental ranges: <140 mg/dL before meals <180 mg/dL all other times of the day Specimen Anatomical Collection Method Collection Time Receive d Time (Source) Location / / Volume Laterality Blood 06/16/2021 11:01 06/16/2021 PM EDT 11:01 PM EDT Izabella Davis MD POINT OF CARE TEST ORDERABLE S Performing Organization Address City/State/ZIP Code Phon e Number [address] Surgical Pathology Report (06/16/2021 10:52 PM EDT) Component Value Ref Test Analysis Performed At [facility] gist Range Method Time Signature Surgical [id number] ? Location: 3WST; 0308; [facility] Report The signing pathologist has (i) examined the relevant preparation(s) for the [facility] specimen(s) and (ii) rendered or confirmed the diagnosis(es) . HOSPITAL LABORATORY . ? 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 Electronically signed by: ?MD Fadumo, Rick Lee Verified: ??06/24/2021 11:01 ??Pathologist Performed at: ??-[facility] [place]. [place], [place], [place] ?Surgic al Pathology DIAGNOSIS Right kidney and ureter with paracaval and intracaval lymph nodes, excision: - Urothelial carcinoma. ?? (See SYNOPTIC REPORT), invasive into ?perinephric fat and renal parenchyma. 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 Electronically signed by: ?MD Fadumo, Rick Lee Verified: ??06/24/2021 10:58 ??Pathologist Performed at: ??-[facility] Dept. of Pathology, [place], [place] SYNOPTIC Specimen ? Procedure: ??Nephroureterectomy ? [...] Annual Release ADDITIONAL STUDIES Whole slide scan: it sales representative slide(s) Immunohistochemistry Studies: Formalin-fixed, paraffin-emb [...] ?Positive A3 ? GATA3 ?Negative A3 ? [id number] ? Negative A10 ?GATA3 ?Positive SPECIMEN(S) SUBMITTED [...] and periureteral fat is inked black. Sections/Processing: Central Control Room Operator sections in 34 cassettes as follows: ?A1: ??Artery and vein margin ?A2-A3: ??Bladder margin ?A4: ??Distal ureter, it sales representative ?A5: ??Mid ureter, it sales representative ?A6: ??Distal ureter, it sales representative ?A7: ??Ureter pelvic junction, it sales representative ?A8-A11: ??Ill-defined area with adjacent sinus fat (A8 and A9 represent one ? section, bisected) ?A12-A13: ??Tumor bed i n association with renal pelvis and sinus/hilar fat, bisected ?A14: ??Renal pelvis with perinephric fat, representati ve ?A15: ??Renal pelvis with tumor bed and sinus fat, repr esentative ?A16: ??Granular nodule, entirely submitted ?A17: ??Renal cortex and pyramid, it sales representative ?A18: ??Adrenal gland, it sales representative ?A19: ??Two lymph nodes ?A20: [...] Organization Address City/State/ZIP Code Phon e Number [place] [id number]OS[address] LAB[address]ORY Drive Specimen to Pathology (06/16/2021 10:52 PM EDT) Specimen Anatomical Collection Method Collection Time Receive d Time (Source) Location / / Volume Laterality AP Specimen 06/16/2021 10:52 06/16/2021 PM EDT 10:52 PM EDT Narrative [facility] LABORAT ORY - 06/16/2021 10:52 PM EDT Specimen requisition ordered. ??Separate Pathology report to follow Izabella Davis MD PATHOLOGY/CYTOLOGY ORDERABLE S Performing Organization Address City/State/[place] [address] POCT Glucose (06/16/2021 9:43 PM EDT) athologist Signature POC Glucose 180 65 - 199 [facility] LABORATORY Comment: Supplemental ranges: <140 mg/dL before meals <180 mg/dL all other times of the day Specimen Anatomical Collection Method Collection Time Receive d Time (Source) Location / / Volume Laterality Blood 06/16/2021 9:43 PM 9:43 EDT PM EDT Izabella Davis MD POINT OF CARE TEST ORDERABLE S Performing Organization Address City/State/[place] [address] (ABNORMAL) POCT Glucose (06/16/2021 8:28 PM EDT) P athologist Signature POC Glucose 207 (H) 65 - 199 [facility] LABORATORY Comment: Supplemental ranges: <140 mg/dL before meals <180 mg/dL all other times of the day Specimen Anatomical Collection Method Collection Time Receive d Time (Source) Location / / Volume Laterality Blood 06/16/2021 8:28 PM 8:28 EDT PM EDT Izabella Davis MD POINT OF CARE TEST ORDERABLE S Performing Organization Address City/State/[place] [address] (ABNORMAL) BLOOD GAS 2 ARTERIAL (06/16/2021 5:52 PM EDT) Analysis Performed At Patho logist Time Signature pH Art 7.36 7.35 - [facility] 7.45 [facility] LABORATORY pCO2 Art 43 35 - 45 [facility] pO2 Art 160 (H) 85 - 104 [facility] LABORATORY HCO3 Art 23.4 20.0 - [facility] 26.0 [facility] mmol/L [facility] LABORATORY BE Art -2.1 -3.0 - 3.0 [facility] mmol/L [facility] LABORATORY Hgb Blood Gas 10.2 (L) 11.7 - [facility] 15.5 gm/dL [facility] O2HB Art 98.2 (H) 94.0 - [facility] 97.0 % [facility] LABORATORY COHB Art 0.3 % [facility] LABORATORY Comment: Nonsmokers: 0.5-1.5% COHB Smokers: Variable, but usually less than 10% Toxic: 20-30% COHB Lethal: Greater than 60% COHB METHB Art 0.3 <=1.5 % [facility] LABORATORY Na Whole Blood 138 135 - 145 mmol/L [facility] LABORATORY K Whole Blood 4.2 3.5 - 5.0 mmol/L [facility] LABORATORY Comment: Please note: Patients with WBC >100,000 may have falsely elevated Potassium levels. Contact the Clinical Chemistry L aboratory if there are any questions. ICa Whole Blood 1.19 1.15 - 1.33 mmol/L [facility] LABORATORY Comment: Note: ??Total bilirubin higher than 20 m g/dL may lead to falsely low ionized calcium. CL Whole Blood 108 (H) 98 - 107 mmol/L [facility] LABORATORY Gluc Whole Bld 124 65 - 199 mg/dL [facility] LABORATORY Comment: Diabetes: >=200 mg/dL plus symp toms. Lactate WB 1.8 0.5 - 2.2 mmol/L [facility] LABORATORY Specimen Anatomical Collection Method Collection Time Receive d Time (Source) Location / / Volume Laterality Blood 06/16/2021 5:52 PM 5:52 EDT PM EDT Izabella Davis MD CHEMISTRY ORDERABLES Performing Organization Address City/State/[place] [address] POCT Glucose (06/16/2021 2:41 PM EDT) athologist Signature POC Glucose 101 65 - 199 [facility] mg/dL [facility] LABORATORY Comment: Supplemental ranges: <140 mg/dL before meals <180 mg/dL all other times of the day Specimen Anatomical Collection Method Collection Time Receive d Time (Source) Location / / Volume Laterality Blood 06/16/2021 2:41 PM 1 2:41 EDT PM EDT Izabella Davis MD POINT OF CARE TEST ORDERABLE S Performing Organization Address City/State/ZIP Code Phon e Number [address] POCT Glucose (06/16/2021 2:01 PM EDT) athologist Signature POC Glucose 70 65 - 199 [facility] BIBI mg/dL [facility] LABORATORY Comment: Supplemental ranges: <140 mg/dL before meals <180 mg/dL all other times of the day Specimen Anatomical Collection Method Collection Time Receive d Time (Source) Location / / Volume Laterality Blood 06/16/2021 2:01 PM 1 2:01 EDT PM EDT Izabella Davis MD POINT OF CARE TEST ORDERABLE S Performing Organization Address City/State/ZIP Code Phon e Number [address] POCT Glucose (06/16/2021 11:27 AM EDT) athologist Signature POC Glucose 119 65 - 199 [facility] mg/dL [facility] LABORATORY Comment: Supplemental ranges: <140 mg/dL before meals <180 mg/dL all other times of the day Specimen Anatomical Collection Method Collection Time Receive d Time (Source) Location / / Volume Laterality Blood 06/16/2021 11:27 06/16/2021 AM EDT 11:27 AM EDT Izabella Davis MD POINT OF CARE TEST ORDERABLE S Performing Organization Address City/State/[place] [address] Type and Screen Validity (06/16/2021 10:35 AM EDT) [facility] Method Time Signature T&S only valid [facility] EBONY MTZ at [facility] LABORATORY Comment: This Type and Screen result is only valid at the [facility] Specimen Anatomical Collection Method Collection Time Receive d Time (Source) Location / / Volume Laterality Blood 06/16/2021 10:35 06/16/2021 AM EDT 10:42 AM EDT Resulting Agency Comment Spec In Lab Izabella aDvis MD BLOOD BANK ORDERABLES Performing Organization Address City/State/ZIP Code Phon e Number [address] ABORH Recheck Status (06/16/2021 10:35 AM EDT) [facility] Method Time Signature ABORH Type Completed [facility] LABORATORY Specimen Anatomical Collection Method Collection Time Receive d Time (Source) Location / / Volume Laterality Blood 06/16/2021 10:35 06/16/2021 AM EDT 10:42 AM EDT Resulting Agency Comment Spec In Lab Izabella Davis MD BLOOD BANK ORDERABLES Performing Organization Address City/[facility]/[place] [address] Antibody screen (06/16/2021 10:35 AM EDT) [facility] Method [facility] Signature Ab Screen Negative [facility] LABORATORY Expires at 06/19/2021 [facility] [id number] on: [facility] LABORATORY Specimen Anatomical Collection Method Collection Time Receive d Time (Source) Location / / Volume Laterality Blood 06/16/2021 10:35 06/16/2021 AM EDT 10:38 AM EDT Resulting Agency Comment Spec In Lab Izabella Davis MD BLOOD BANK ORDERABLES Performing Organization Address City/[facility]/[place] [address] ABO/Rh Typing (06/16/2021 10:35 AM EDT) athologist Signature ABORh Type A Neg [facility] LABORATORY Specimen Anatomical Collection Method Collection Time Receive d Time (Source) Location / / Volume Laterality Blood 06/16/2021 10:35 06/16/2021 AM EDT 10:38 AM EDT Resulting Agency Comment Spec In Lab Izabella Davis MD BLOOD BANK ORDERABLES Performing Organization Address City/State/[place] [address] documented in this encounter Visit Diagnoses Diagnosis Malignant neoplasm of right renal pelvis Malignant neoplasm of renal pelvis Tachycardia Tachycardia, unspecified CKD (chronic kidney disease), stage II Chronic kidney disease, Stage II (mild) Malignant neoplasm of right kidney Malignant neoplasm of right renal pelvis Malignant neoplasm of renal pelvis documented in this encounter Admitting Diagnoses Diagnosis Renal cancer Malignant neoplasm of kidney, except pel vis documented in this encounter Administered Medications Inactive Administered Medications - up to 3 most recent administrations Medication Order MAR Action Action Date Dose Rate Site acetaminophen (Tylenol) tablet 975 Given 06/24/2021 8:16 AM EDT 975 mg mg 975 mg, Oral, EVERY 6 HOURS [...] Given 06/23/2021 8:27 AM EDT 100 mg furosemide (Lasix) tablet 20 mg Given 06/24/2021 8:17 AM EDT 20 mg 20 mg, Oral, 2 TIMES DAILY, First dose on Mon06/21/21 at 1700, Until Discontinued, Routine Given 06/23/2021 4:50 PM EDT 20 mg Given 06/23/2021 8:27 AM EDT 20 mg glucagon (Glucagen) (1 mg/mL) injection solution 1 mg 1 mg, Intramuscular, EVERY 30 MIN PRN, S tarting on Mon06/16/21 at 2339, Until Melany 06/24/21 at 1539, Low blood sugar, For BG [...] insulin., Routine glucose (GLUTOSE) 40% oral geL 15-30 [...] 1:49 PM EDT 5,000 Units HYDROmorphone (Dilaudid) tablet 2-4 mg Given 06/24/2021 9:01 AM EDT 2 mg 2-4 mg, Oral, EVERY 6 HOURS PRN, Starting on Mon06/23/21 at 2223, Until Mon06/24/21 at 1539, Pain, Mild pain 2mg, moderate severe 4mg. (can also take 2mg for severe per patient preference), Routine Given 06/24/2021 3:02 AM EDT 2 mg insulin glargine (Lantus) (100 unit/mL) Given 06/24/2021 [...] 4 Units insulin lispro (HumaLOG;Admelog) (100 Given 06/24/2021 4:28 AM E DT 1 Units unit/mL) subcutaneous injection vial 1-6 Units 1-6 Units, Subcutaneous, EVERY 4 HOURS SCHEDULED, First dose (after last modification) on Mon06/17/21 [...] Given 06/23/2021 12:09 PM EDT 3 Units labetaloL (Normodyne) (5 mg/mL) injectio n solution [...] 17 g, Oral, DAILY PRN, Starting on Mon06/17/21 at 1315, Until Mon06/24/21 at 1539, Constipation, Routine Given 06/20/2021 5:16 PM EDT 17 g Given 06/18/2021 2:59 PM EDT 17 g prochlorperazine (Compazine) (5 mg/mL) Given 06/22/2021 11:40 [...] medication record., Recovery (Recovery-Hospital Unit), Routine sodium phosphates (FLEET) 19-7 gram/118 mL rectal enema 1 Bottle 1 Bottle, Rectal, DAILY PRN, Starting on Mon06/22/21 at 0657, Until Mon06/24/21 at 1539, Constipation, Routine sucralfate (Carafate) (100 mg/mL) oral liquid [...] 0434 (Given - Pr ovider: Nichelle Conti RN)0824 (Given - Provider: Nadya Adam LPN)1446 (Given - Provider: Nadya Adam LPN)2106 (Given - Provider: Sharon Hitchcock RN) 0453 (Given - Provider: Sharon Hitchcock RN)0826 (Not Given - Provider: Siri Rodríguez RN - Reason: Contraindicated)1427 (Given - Provider: Siri Rodríguez RN)2033 (Given - Provider: Leeanne Lewis RN) 0302 (Given - Provider: Leeanne Lewis RN)0816 (Given - Provider: Papa Bullock RN) 975 mg, Oral, EVERY 6 HOURS SCHEDULED, F irst dose on Mon06/17/21 at 0000, Until Discontinued, Maximum dose of [...] mg 0824 (Given - Provider: Nadya Adam LPN)2107 (Given - Provider: Sharon Hitchcock RN) 0827 (Given - Provider: Siri Rodríguez RN)2034 (Given - Provider: Leeanne Lewis RN) 0817 (Given - Provider: Papa Bullock RN) 100 mg, Oral, 2 TIMES DAILY, First dose on Mon06/16/21 at 2345, Until Discontinued, Routine furosemide (Lasix) tablet 20 mg 0824 (Given - Provider : Nadya Adam LPN)1700 (Given - Provider: Nadya Adam LPN) 0827 (Given - Provider: Siri Rodríguez RN)1650 (Given - Provider: Fabiana Tsang RN) 0817 (Given - Provider: Papa Bullock RN) 20 mg, Oral, 2 TIMES DAILY, First dose o n Mon06/21/21 at 1700, Until Discontinued, Routine heparin (porcine) (5,000 units/1 mL) subcutaneous inje ction 5,000 Units 0503 (Given - Provider: Nichelle Conti RN)1446 (Given - Provider: Nadya Adam LPN)2107 (Given - Provider: Sharon Hitchcock, MORTEZA) 0600 (Given - Provider: Sharon Hitchcock, MORTEZA)1349 (Given - Provider: Siri Rodríguez RN)2332 (Given - Provider: Leeanne Lewis RN) 0611 (Given - Provider: Doni Muller RN) 5,000 Units, Subcutaneous, EVERY 8 HOURS SCHEDULED, First dose on Mon06/16/21 at 2345, Until Discontinued, Routine insulin glargine (Lantus) (100 unit/mL) subcutaneous i njection vial 45 Units 0836 (Given - Provider: Nadya Adam LPN) 0834 (Given - Provider: Siri Rodríguez RN) 0823 (Given - Provider: Papa ceron RN) [...] Blood sugar 117)0832 (Given - Provider: Siri Rodríguez, RN)1209 (Given - Provider: Siri Rodríguez RN) 0000 (Not Given - Provider: Leeanne Lewis RN - Reason: Order parameters not met)0428 (Given - Provider: Leeanne Lewis RN)0800 (Not Given - Provider: Papa Bullock RN - Reason: Order parameters not met - Comment: BG 137) 1-6 Units, Subcutaneous, EVERY 4 HOURS S CHEDULED, First dose (after last modification) on Melany 06/17/21 at 1200, Until Discontinued, CORRECTION BOLUS Custom correction factor 20 BG 140 - 160 Give 1 un 0718 (Not Given - Provider: Nadya Adam LPN - Reason: Order parameters not met)1150 (Not Given - Provider: Nadya Adam LPN - Reason: Order parameters not met) 1600 (Not Given - Provider: Fabiana Tsang RN - Reason: Order parameters not met)2035 (Given - Provider: Leeanne Lewis RN) 1200 (Not Given - Provider: Papa Bullock RN [...] topical patch 3 patch(Linked G roup 2) 0825 (Patch Applied - Provider: Nadya Adam LPN) 0835 (Patch Applied - Provider: Siri Rodríguez RN) 0814 (Patch Applied - Provider: Papa Bullock RN) 3 patch, Transdermal, EVERY 24 HOURS, Fi rst dose on Mon06/17/21 at 0830, Until Discontinued, Apply patch(es) for 12 hours, and then remove for 12 hours., Routine lidocaine (Lidoderm) topical patch REMOVAL(Linked Grou p 2) 2014 (Patch Removed - Provider: Sharon Hitchcock, RN) 2014 (Patch Removed - Provider: Leeanne wallace, MORTEZA) Transdermal, EVERY 24 HOURS, First dose on Mon06/17/21 at 2014, Until Discontinued, Remove lidocaine 5% patch metoprolol tartrate (Lopressor) tablet 12.5 mg 0823 (G iven - Provider: Vanda Adam LPN)2107 (Given - Provider: Sharon Hitchcock RN) 826 (Given - Provider: Siri Rodríguez RN)2033 (Given - Provider: Leeanne Lewis, MORTEZA) 08 (Given - Provider: Papa Bullock, MORTEZA) 12.5 mg, Oral, EVERY 12 HOURS SCHEDULED (2 times per day), First dose on Mon06/17/21 at 0915, Until Discontinued, Routine pantoprazole EC (Protonix) tablet 40 mg 0824 (Given - Provider: Nadya Adam LPN) 826 (Given - Provider: Siri Rodríguez RN) 08 (Gi bebeto - Provider: Papa Bullock RN) 40 mg, Oral, DAILY, First dose on Mon at 0915, Until Discontinued, DO NOT CRUSH OR OPEN, Routine senna (Senokot) tablet 8.6 mg 08 (Given - Provider: Nadya Adam LPN)2106 (Given - Provider: Sharon Hitchcock RN) 826 (Given - Provider: Siri Rodríguez, MORTEZA)2033 (Given - Provider: Leeanne Lewis RN) 0817 (Given - Provider: Papa Bullock RN) 8.6 mg, Oral, 2 TIMES DAILY, First dose on Mon06/17/21 at 1330, Until Discontinued, Routine sodium chloride 0.9 % (flush) (BD PosiFlush Normal Mike ine 0.9) flush 5 mL 2099 (Given - Provider: Sharon Hitchcock RN) 0827 (Given - Provider: Siri Rodríguez RN)203 (Not Given - Provider: Leeanne Lewis RN - Reason: Loss of access) 0819 (Not [...] (Given - Provider: Leandra Keys - Comment: [id number] 24) 250 mL, Irrigation, ONCE, 1 dose, On Mon06/23/21 at 1115, Routin e sucralfate (Carafate) (100 mg/mL) oral liquid 1 g 0718 (Given - Provider: Nadya Adam LPN)1144 (Given - Provider: Nadya Adam LPN)1659 (Given - Provider: Nadya Adam LPN)2107 (Given - Provider: Sharon Hitchcock RN) 0831 (Given - Provider: Siri Rodríguez RN)1206 (Given - Provider: Siri Rodríguez RN)1649 (Given - Provider: Fabiana sTang RN)2034 (Given - Provider: Leeanne Lewis RN) 0828 (Given - Provider: Papa Bullock RN)1148 (Given - Provider: Papa Bullock, MORTEZA) 1 g, Oral, 4 TIMES DAILY BEFORE MEALS & NIGHTLY, First dose on Melany 06/17/21 at 0915, Until Discontinued, Routine PRN Medication Order 06/22/2021 06/23/2021 06/24/2021 calcium carbonate (Tums) chewable tablet 1,000 mg 1,000 mg, Oral, DAILY PRN, Starting on ri 06/18/21 at 1529, Until Melany 06/24/21 at 1539, Heartburn, Routine dextrose 10% infusion(Linked Group 3) 250 mL, at 1,000 mL/hr, Intravenous, SOLO RY 30 MIN PRN, Starting on Mon06/16/21 at 2339, Until Melany 06/24/21 at 1539, For BG 50-70 mg/dL: Oral [...] Until Melany 06/24/21 at 1539, Low blood sugar, For BG [...] 2-4 mg 0302 (Given - Provider: Leeanne Lewis RN)0901 (Given - Provider: Papa Bullock RN) 2-4 mg, Oral, EVERY 6 HOURS PRN, Startin g on Mon06/23/21 at 2223, Until Melany 06/24/21 at 1539, Pain, Mild pain 2mg, moderate severe 4mg. (can also take 2mg for severe per patient preference), Routine HYDROmorphone (Dilaudid) tablet 4 mg (CANCELED) 1348 (Given - Provider: Siri Rodríguez, MORTEZA) 4 mg, Oral, EVERY 4 HOURS PRN, [...] Hitchcock, MORTEZA) 0453 (Given - Provider: Sharon Hitchcock RN) 6 mg, Oral, EVERY 4 HOURS PRN, Starting on Mon06/16/21 at 2323, Until Mon06/23/21 at 0833, Pain, for severe pain (7-10), May give an additional 2 mg once if pain not relieved in 30-60 minutes., Routine iohexoL (Omnipaque) (350 mg/mL) injection solution 250 mL (C OMPLETED) 1056 (Given - Provider: Leandra Keys - Comment: [id number]) 250 mL, Other, ONCE PRN, 1 dose, Startin g on Mon06/23/21 at 1022, Until Mon06/23/21 at 1056, Per Protocol, Warning Vesicant/Irritant Medication , Routine labetaloL (Normodyne) (5 mg/mL) injection solution 10 mg 10 mg, Intravenous, EVERY 4 HOURS PRN, S tarting on Mon06/22/21 at 1802, Until Melany 06/24/21 at 1539, High Blood Pressure, For SBP>180, [...] St arting on Mon06/16/21 at 2322, Until Mon06/24/21 at 1539, Opioid Reversal, If respiratory rate [...] St arting on Mon06/17/21 at 0503, Until Melany 06/24/21 at 1539, Nausea, Routine sodium chloride 0.9 [...] or Regular (not diet) soda OR If OUTPLACEMENT CONSULTANT O, give 15 gram glucose 40% oral [...] on Mon06/16/21 at 2339, Until Mon06/24/21 at 1539
For BG 50-70 mg/dL: Oral [...] Unit) documented in this encounter Care Teams Finisher Hand Relationship Specialty Start Date End Date Derek Torres PA PCP - General Internal Medicine 06/07/21 Mah[address] [place] [address] documented as of this encounter
--- OUTSIDE RECORDS SUMMARY | 2022-10-07 18:41 | XMS_ITS | Encounter Summary ---
:1955 Author Organization [facility] Address [facility] [place] [address] Care Team Providers Name Role Phone Derek Torres Primary Care Provider Reason for Visit Reason Onset Date Comments Prior Authorization 04/20/2021 susi Encounter Details Date Type Department Care Team Description 04/20/2021 Telephone Hematology/Oncology at Barb Dennis Pri or Authorization [facility] (susi) [address] [place] [phone] Social History Tobacco Use Types Packs/Day Years Used Date Former Smoker Cigarettes 0.25 Quit: 06/2020 Smokeless Tobacco: Never Used Sex Assigned at Date Recorded Not on file documented as of this encounter Miscellaneous Notes Telephone Encounter - Barb Dennis RN - 04/20/2021 2:05 PM EDT Called [facility] prior auth at [id number], approval number [id number] from 03/21/21-04/20/21. Spoke with [facility] they will get it ready, spoke with pt she will take her last lovenox tonight and start eliquis tomorrow per rocco Link [employer]. documented in this encounter Plan of Treatment Upcoming Encounters Date Type Specialty Care Team Description 10/21/2022 Appointment Hematology and Oncology 10/21/2022 Hospital Encounter Radiology Rocco Link, CONTRACT DESIGNER [address] [place] [address] [place] [address] (Wo rk) 10/21/2022 Appointment Radiology Rocco Link[address] MEDICAL ONCOLOGY [place], [place] [address] (Wo rk) 10/21/2022 Appointment Radiology Rocco Link[address] MEDICAL ONCOLOGY [facility], [place] [address] (Wo rk) 10/25/2022 Office Visit Hematology and Oncology Alberto Guy MD [facility] DR HEMATOLOGY/[place] [address] MEDICAL ONCOLOGY [place], [place] [id number] 11/09/2022 Office Visit Urology Bobo Davis MD [facility] DR UROLOGY [place], [place] [address] (Wo rk) documented as of this encounter Visit Diagnoses Not on filedocumented in this encounter Care Teams Marble Installation Helper Relationship Specialty Start Date End Date Derek Torres PA PCP - General Internal Medicine 04/13/21 06/03/21 [address] [place], [place] [address] documented as of this encounter
--- OUTSIDE RECORDS SUMMARY | 2022-10-07 18:41 | XMS_ITS | Encounter Summary ---
:1955 Author Organization [facility] [place] [address] Care Team Providers Name Role Phone Unavailable Primary Care Provider Unavailable Reason for Visit Reason Onset Date Comments Follow-up 04/07/2021 Encounter Details Date Type Department Care Team Description 04/07/2021 Telephone Hematology/Oncology at Barb Dennis RN Follow-up [address] [phone] Social History Tobacco Use Types Packs/Day Years Used Date Former Smoker Cigarettes 0.25 Quit: 06/2020 Smokeless Tobacco: Never Used Sex Assigned at Date Recorded Not on file documented as of this encounter Miscellaneous Notes Telephone Encounter - Barb Dennis RN - 04/07/2021 11:50 AM EDT Urine sensitivities came back and reviewed with Dr. Bhatia, pt started on macrodantin 100 mg twice day starting 04/06, she is to stay on this and then get U/A this Mondayapril 09. Spoke with pt and she agrees. She will come to [facility] on Mondayapril 09 at 2pm and give urine sample. We will follow up withher after reviewing with Dr. Bhatia. documented in this encounter Plan of Treatment Upcoming Encounters Date Type Specialty Care Team Description 10/21/2022 Appointment Hematology and Oncology 10/21/2022 Hospital Encounter Radiology Adilene Link, MILLER SUPERVISOR [address] [place] [address] [place] [address] (Wo rk) 10/21/2022 Appointment Radiology Adilene Link[address] MEDICAL ONCOLOG[place] [address] (Wo rk) 10/21/2022 Appointment Radiology Adilene Link, [address] MEDICAL [place]COL[place] [address] (Wo rk) 10/25/2022 Office Visit Hematology and Oncology Alberto Guy MD [facility] HEMATOLOGY/[place] [address] MEDICAL ONCOLOGY [facility], [place] [phone] 11/09/2022 Office Visit Urology Bobo Davis MD [facility] UROLOGY [place], [place] [address] (Wo rk) documented as of this encounter Visit Diagnoses Not on filedocumented in this encounter
--- OUTSIDE RECORDS SUMMARY | 2022-10-07 18:41 | XMS_ITS | Encounter Summary ---
:1955 Author Organization [facility] [address] Care Team Providers Name Role Phone Derek Torres Primary Care Provider Encounter Details Date Type Department Care Team Description 06/02/2021 Clinical Support Same Day at [facility] Malignant neoplasm of [facility] [place] [phone] Social History Tobacco Use Types Packs/Day [...] Taken Comments Blood Pressure - - Pulse - - Temperature - - Respiratory Rate - - Oxygen Saturation 97% 06/02/2021 12:41 PM EDT Inhaled Oxygen Concentration - - Weight - - Height 161.3 cm (5' 3.5) 06/02/2021 12:41 PM EDT Body Mass Index - - documented in this encounter Progress Notes Kellee Jaime RN - 06/02/2021 1:00 PM EDT PAT questionnaire reviewed with patient while in Pre Admission testing. Pt has tolerated anesthesia in the past. Pre-operative instruction booklet reviewed. Patient verbalizes a good understanding of all information reviewed. PLAN: Testing: Type and screen (pt reports blood transfusion at end of April 2021, T&S drawn today, will need new sample drawn on DOS), other labs, pt to have anesthesia consult today. Special medication instructions: Eliquis: pt reports instructions from Dr Davis to stop 1 week preop Procedure date: 06-16-21 Dr Davis Pre Surgery Covid screening: Were you diagnosed with COVID 19 or had symptoms consistent with COVID 19 within the last 3 months. No Pt reports she has had both doses of Pfizer Covid 19 Vaccine documented in this encounter Plan of Treatment Upcoming Encounters Date Type Specialty Care Team Description 10/21/2022 Appointment Hematology and Oncology 10/21/2022 Hospital Encounter Radiology Adilene Link[address] [place] [address] (Wo rk) 10/21/2022 Appointment Radiology Adilene Link [address] [place] [address] (Wo rk) 10/21/2022 Appointment Radiology Adilene Link [address] [place] [address] (Wo rk) 10/25/2022 Office Visit Hematology and Oncology Alberto Guy MD [facility] DR HEMATOLOGY/[place] [address] Adielne Link [address] [place] [address] 11/09/2022 Office Visit Urology Bobo Davis MD [facility] UROLOGY [place], [place] [address] (Wo rk) documented as of this encounter Procedures Procedure Name Priority Date/Time Associated Comments Diagnosis TYPE AND SCREEN Routine 06/02/2021 2:10 PM Result s for this VALIDITY EDT procedure are i n the results section. ABORH RECHECK STATUS Routine 06/02/2021 2:10 PM R esults for this EDT procedure are i n the results section. SCAN, PERIPHERAL BLOOD Routine 06/02/2021 2:10 PM Results for this EDT procedure are i n the results section. HEMOGRAM Routine 06/02/2021 2:10 PM Malignant neoplasm Res ults for this EDT of right renal procedure are in pelvis the results section. DIFFERENTIAL, Routine 06/02/2021 2:10 PM Malignant neoplasm Re sults for this AUTOMATED EDT of right renal procedure are in pelvis the results section. HC ANTIBODY Routine 06/02/2021 2:10 PM Malignant neoplasm DETECTION,CAPTURE-R EDT of right renal pelvis ABO/RH TYPING Routine 06/02/2021 2:10 PM Malignant neoplasm Re sults for this EDT of right renal procedure are in pelvis the results section. HC CBC,PLT & AUTO DIFF Routine 06/02/2021 2:10 PM Malignant ne oplasm EDT of right renal pelvis ANTIBODY SCREEN Routine 06/02/2021 2:10 PM Malignant neoplasm Results for this EDT of right renal procedure are in pelvis the results section. COMPREHENSIVE Routine 06/02/2021 2:10 PM Malignant neoplasm Re sults for this METABOLIC PANEL EDT of right renal procedure are in (NON-FASTING) pelvis the results section. documented in this encounter Results Type and Screen Validity (06/02/2021 2:10 PM EDT) [facility] Method Time Signature T&S only valid [facility] LABORATORY Comment: This Type and Screen result is only valid at the [facility] Hospital Specimen Anatomical Collection Method Collection Time Receive d Time (Source) Location / / Volume Laterality Blood 06/02/2021 2:10 PM 2:15 EDT PM EDT Resulting Agency Comment Spec In Lab Bobo Davis MD BLOOD BANK ORDERABLES Performing Organization Address City/State/Z[place] [address] Scan, Peripheral Blood (06/02/2021 2:10 PM EDT) [facility] Method Time Signature Plat Estimate Increased [facility] LABORATORY RBC Morphology Abnormal [facility] Macrocytes 1-5 /HPF [facility] Microcytes 1-5 /HPF [facility] Polychromasia Present >5/HPF [facility] LABOR[facility]ORY Specimen Anatomical Collection Method Collection Time Receive d Time (Source) Location / / Volume Laterality Blood 06/02/2021 2:10 PM 1 2:29 EDT PM EDT Resulting Agency Comment Spec In Lab Bobo Davis MD HEMATOLOGY ORDERABLES Performing Organization Address City/[facility]/[place] [address] ABORH Recheck Status (06/02/2021 2:10 PM EDT) [facility] Campaign Monitor Method Time Signature ABORH Type Completed [facility] LABORATORY Specimen Anatomical Collection Method Collection Time Receive d Time (Source) Location / / Volume Laterality Blood 06/02/2021 2:10 PM 1 2:15 EDT PM EDT Resulting Agency Comment Spec In Lab Bobo Davis MD BLOOD BANK ORDERABLES Performing Organization Address City/[facility]/[place] [address] (ABNORMAL) Differential, Automated (06/02/2021 2:10 PM EDT) [facility] Campaign Monitor Method Time Signature Neutrophils % 64.8 % [facility] LABOR[facility] Neutr Abs (ANC) 7.59 (H) 1.70 - [facility] 6.10 [facility] x10(3)/[facility] LABORATORY Lymphocytes % 15.4 % [facility] LABORATORY Lymphocytes Abs 1.8 0.9 - 3.2 [facility] x10(3)/[facility] LABORATORY Monocytes % 13.6 % [facility] LABORATORY Monocyte Abs 1.6 (H) 0.3 - 0.9 [facility] x10(3)/[facility] LABORATORY Eosinophils % 1.5 % [facility] LABOR[facility] Eosinophils Abs 0.2 0.0 - 0.4 [facility] x10(3)/[facility] LABORATORY Basophils % 1.4 % [facility] LABORATORY Basophils Abs 0.2 (H) 0.0 - 0.1 [facility] x10(3)/[facility] LABORATORY Immature Gran % 3.30 % [facility] LABORATORY Comment: Immature granulocytes(IG's)percentage an d absolute count will include metamyelocytes, myelocytes, and promyelo cytes. Blood smears from CBCs yielding IG's will be scanned manually for concor dance. If this scan disagrees with the automated IG or if promyelocytes are not ed, a manual differential will be performed. [place] Gran Abs 0.38 (H) 0.00 - 0.04 x10(3)/[facility] LABORATORY Specimen Anatomical Collection Method Collection Time Receive d Time (Source) Location / / Volume Laterality Blood 06/02/2021 2:10 PM 2:29 EDT PM EDT Resulting Agency Comment Spec In Lab Bobo Davis MD HEMATOLOGY ORDERABLES Performing Organization Address City/State/Z[place] [address] (ABNORMAL) Hemogram (06/02/2021 2:10 PM EDT) [facility] gist Method Time Signature WBC 11.7 (H) 4.0 - 9.5 [facility] x[facility] LABORATORY RBC 3.34 (L) 4.00 - [facility] 5.21 [facility] x10(6)/[facility] LABORATORY Hemoglobin 9.8 (L) 11.7 - [facility] gm/dL [facility] LABORATORY Hematocrit 32.1 (L) 35.7 - [facility] 45.8 % [facility] LABORATORY MCV 96.1 (H) 82.6 - [facility] BIBI 94.4 [facility] LABORATORY MCH 29.3 27.1 - [facility] 32.0 pg [facility] LABORATORY MCHC 30.5 (L) 31.7 - [facility] BIBI 35.0 gm/dL [facility] LABORATORY Platelets 528 (H) 145 - 357 [facility] BIBI x10(3)/[facility] LABORATORY RDWSD 55.3 (H) 37.0 - [facility] BIBI 46.0 [facility] LABORATORY RDWCV 15.9 (H) 11.5 - [facility] 14.1 % [facility] LABORATORY MPV 10.2 7.6 - 12.9 [facility] fL [facility] LABORATORY nRBC % Auto 0.2 % [facility] LABORATORY nRBC Abs Auto 0.020 (H) 0.000 - [facility] MTZ 0.000 [facility] x10(3)/[facility] LABORATORY Specimen Anatomical Collection Method Collection Time Receive d Time (Source) Location / / Volume Laterality Blood 06/02/2021 2:10 PM 1 2:29 EDT PM EDT Resulting Agency Comment Spec In Lab Bobo Davis MD HEMATOLOGY ORDERABLES Performing Organization Address City/[facility]/[place] [address] Antibody screen (06/02/2021 2:10 PM EDT) Patholo gist Method Time Signature Ab Screen Negative [facility] LABORATORY Expires at 06/01/2021 [facility] [id number] on: [facility] LABORATORY Comment: Corrected from 06/19/21 0:00:00 EDT [Unk nown] on 06/03/21 15:15:39 EDT by Brittany Gomez Specimen Anatomical Collection Method Collection Time Receive d Time (Source) Location / / Volume Laterality Blood 06/02/2021 2:10 PM 1 2:15 EDT PM EDT Resulting Agency Comment Spec In Lab Bobo Davis MD BLOOD BANK ORDERABLES Performing Organization Address City/State/[place] [address] ABO/Rh Typing (06/02/2021 2:10 PM EDT) P athologist Signature ABORh Type A Neg [facility] LABORATORY Specimen Anatomical Collection Method Collection Time Receive d Time (Source) Location / / Volume Laterality Blood 06/02/2021 2:10 PM 1 2:15 EDT PM EDT Resulting Agency Comment Spec In Lab Bobo Davis MD BLOOD BANK ORDERABLES Performing Organization Address City/State/ZIP Code Phon [place] [address] (ABNORMAL) Comprehensive metabolic panel (non-fasting) (06/02/2021 2:10 PM EDT) athologist Signature Glucose Lvl 65 65 - 199 [facility] mg/dL [facility] LABORATORY Comment: Diabetes: >=200 mg/dL plus symp toms BUN 33 (H) 8 - 18 mg/dL [facility] LABORATORY Creatinine 1.07 0.70 - 1.20 mg/dL [facility] LABORATORY Sodium 142 135 - 145 mmol/L [facility] LABORATORY Potassium 3.8 3.5 - 5.0 mmol/L [facility] LABORATORY Comment: Please note: ??Patients with WBC >100,00 0 may have falsely elevated Potassium levels. ??For accurate Potassium quantif ication in these patients send serum separator tube (gold top) for subsequent determinations. ??Contact the Clinical Chemistry Laboratory if there are any qu estions. Chloride 105 98 - 107 mmol/L [facility] LABORATORY CO2 24 22 - 31 mmol/L [facility] LABORATORY Anion Gap 13 5 - 15 mmol/L [facility] LABORATORY Calcium 9.3 8.5 - 10.5 mg/dL [facility] LABORATORY Total Protein 7.8 6.1 - 8.0 gm/dL [facility] LABORATORY Albumin 4.1 3.2 - 5.2 gm/dL [facility] LABORAT[facility] AST 15 0 - 30 unit/L [facility] LABORATORY ALT 20 0 - 30 unit/L [facility] LABORATORY Alk Phos 114 (H) 35 - 105 unit/L [facility] LABORATORY Total Bilirubin 0.2 0.2 - 1.3 mg/dL [facility] LABORATORY Estimated GFR 54 (L) >=60 mL/min/1.73 m?? [facility] LABORATORY Comment: This patient? s estimated glomerular filtration rate (eGFR) is between 54 mL/min/1.73 m2 (patients with less muscl e mass) and 62 mL/min/1.73 m2 (patients with more muscle mass) [...] (Source) Location / / Volume Laterality Blood 06/02/2021 2:10 PM 2:29 EDT PM EDT Resulting Agency Comment Spec In Lab Bobo Davis MD CHEMISTRY ORDERABLES Performing Organization Address City/State/[place] [address] documented in this encounter Visit Diagnoses Diagnosis Malignant neoplasm of right renal pelvis Malignant neoplasm of renal pelvis documented in this encounter Care Teams Audio Visual Director Relationship Specialty Start Date End Date Derek Torres PA PCP - General Internal Medicine 04/13/21 06/03/21 [address] [place] [address] documented as of this encounter
--- OUTSIDE RECORDS SUMMARY | 2022-10-07 18:41 | XMS_ITS | Encounter Summary ---
:1955 Author Organization [facility] [place] [address] Care Team Providers Name Role Phone Unavailable Primary Care Provider Unavailable Reason for Visit Reason Onset Date Comments Other 04/05/2021 Encounter Details Date Type Department Care Team Description 04/05/2021 Telephone Hematology/Oncology at [facility] , [place] You [address] ONCOLOGY [place], [place] [phone] [place], [place] [phone] (Wo rk) Social History Tobacco Use Types Packs/Day Years Used Date Former Smoker Cigarettes 0.25 Quit: 06/2020 Smokeless Tobacco: Never Used Sex Assigned at Date Recorded Not on file documented as of this encounter Miscellaneous Notes Telephone Encounter - Barb Dennis RN - 04/05/2021 3:32 PM EDT Pt calls this Am stating she has horrible burning on urination. She finished cipro 250 bid on . She has no fever or chills. She is drinking water. She also has pain in right shoulder she is using warm moist pack on with relief but when takes off sunny is there. Reviewed with rocco Link NP who states to continue moist heat this maybe cause of clot in right arm. Pt is to have U/A. Pt states [facility] coming out and can being urine to [facility]. Orders sent. After [facility] there this PM pt called stating She Said I might have pleurisy do I need to go to ER. Reviewed [facility] visit with Manjula Hawk RN. She stated pt has pain under right rib cage in back, no rub or congestion heard. She has pain when felt to the right of spinal column. VS o2 sat 93%b/p 130/70, hr 122, no shortness of breath, talked the whole time RN was at visit. Manjula states the pt said she would call us and get directions on what to do. Spoke again with rocco link FAMILY LAW ATTORNEY with results from U/A. Pt can try some tylenol for back pain 1000 mg every 8 hours prn. Pt said pain better now so I will not take. Let her know we are waiting on results ofculture and will look for them tomorrow when she is here at clinic. Asked pt to push fluids like water and juices , things without caffeine or alcohol . Pt agrees with plan and will get labs at [facility] at930 prior to coming to clinic. documented in this encounter Plan of Treatment Upcoming Encounters Date Type Specialty Care Team Description 10/21/2022 Appointment Hematology and Oncology 10/21/2022 Hospital Encounter Radiology Rocco Link[address] MEDICAL ONCOLOGY [place], [place] [address] [phone] (Wo rk) 10/21/2022 Appointment Radiology Rocco Link[address] [place] [address] (Wo rk) 10/21/2022 Appointment Radiology Rocco Link[address] [place] [address] (Wo rk) 10/25/2022 Office Visit Hematology and Oncology Alberto Guy MD [facility] DR HEMATOLOGY/[place] [address] MEDICAL ONCOLOGY [place], [place] [address] [phone] 11/09/2022 Office Visit Urology Bobo Davis MD [facility] [place] [address] (Wo rk) documented as of this encounter Visit Diagnoses Diagnosis Urothelial carcinoma of kidney, right High risk medication use Encounter for long-term (current) use of other medications documented in this encounter
--- OUTSIDE RECORDS SUMMARY | 2022-10-07 18:41 | XMS_ITS | Encounter Summary ---
:[address] [facility] [place] [address] Care Team Providers Name Role Phone Unavailable Primary Care Provider Unavailable Encounter Details Date Type Department Care Team Description 03/22/2021 Telephone Hematology and Oncology at Angel Biggs DO [facility] Dennis fernández HEMATOLOGY/[place] [address] [place] [address] [phone] (Wo rk) Social History Tobacco Use Types Packs/Day Years Used Date Former Smoker Cigarettes 0.25 Quit: 06/2020 Smokeless Tobacco: Never Used Sex Assigned at Date Recorded Not on file documented as of this encounter Miscellaneous Notes Telephone Encounter - Angel Biggs DO - 03/22/2021 2:[address] Hernandez from [facility] calling again regarding patient 65yo female with urothelial ca on Molena/Carbo last cycle on 03/09 (day 8 gem) w/ neulesta support; admitted w/ CHF exacerbation vs. gemcitabine induced edema, improving w/ plan to transition to PO lasix. Found to have ~13cm superficial thrombophlebitis in cephalic vein; duplex negative for DVT. Started patient on therapeutic Lovenox per vasc surgery recs. They will see her in clinic in follow-up per Dr. Hernandez. Angel Biggs Hem/Onc fellow [id number] documented in this encounter Plan of Treatment Upcoming Encounters Date Type Specialty Care Team Description 10/21/2022 Appointment Hematology and Oncology 10/21/2022 Hospital Encounter Radiology Adilene Link[address] MEDICAL ONCOLOGY [place], [place] [address] (Wo rk) 10/21/2022 Appointment Radiology Adilene Link[address] [facility] ON[facility]Y [place], [place] [address] (Wo rk) 10/21/2022 Appointment Radiology Adilene Link[address] MEDICAL ONCOLOGY [place], [place] [id number] (Wo rk) 10/25/2022 Office Visit Hematology and Oncology Alberto Guy MD [facility] HEMATOLOGY/[place] [address] MEDICAL ONCOLOGY [place], [place] [id number] 11/09/2022 Office Visit Urology Bobo Davis MD [facility] UROLOGY [place], [place] [address] (Wo rk) documented as of this encounter Visit Diagnoses Not on filedocumented in this encounter
--- OUTSIDE RECORDS SUMMARY | 2022-10-07 18:41 | XMS_ITS | Encounter Summary ---
:1955 Author Organization [facility] [place] [address] Care Team Providers Name Role Phone Unavailable Primary Care Provider Unavailable Reason for Referral Consultation (MADELINE) - Closed Specialty Diagnoses / Procedures Referred By Contact Refer red To Contact Cardiology Diagnoses Urothelial carcinoma of kidney, right Congestive heart failure, unspecified HF chronicity, unspecified heart failure type Please evaluate for CHF, patient with metastatic urothelial carcinoma of right kidney on chemotherapy Alberto Bhatia MD [facility] HEMATOLOGY/[place] [address] Referral ID Status Reason Start Date Expiration Date Visits V isits Requested Authorized [id number] Closed Consult, 03/23/2021 03/23/2022 1 1 Test & Treat Reason for Visit Reason Comments Follow-up Encounter Details Date Type Department Care Team Description 03/23/2021 Office Visit Hematology/Oncology Rah Bhatia MD [facility] DR HEMATOLOGY/[place] [address] [facility], [facility] [address] [place] [address] [place] [address] Neutropenia, drug-induced; [address] High risk medication use; [place], [place] Encounter f or chemotherapy management; [id number] Cancer of renal pelvis, righ t; [phone] Congestive hear t failure, unspecified HF chronicity, unspecified heart failure type Social History Tobacco Use Types Packs/Day Years Used Date Former Smoker Cigarettes 0.25 Quit: 06/2020 Smokeless Tobacco: Never Used Sex Assigned at Date Recorded Not on file documented as of this encounter Last Filed Vital Signs Vital Sign Reading Time Taken Comments Blood Pressure 131/57 03/23/2021 9:35 AM EDT Pulse 102 03/23/2021 9:35 AM EDT Temperature 35.1 ??C (95.1 ??F) 03/23/2021 9:35 AM EDT Respiratory Rate 16 03/23/2021 9:35 AM EDT Oxygen Saturation 98% 03/23/2021 9:35 AM EDT Inhaled Oxygen Concentration - - Weight 93 kg (205 lb) 03/23/2021 9:35 AM EDT Height 160 cm (5' 2.99) 03/23/2021 9:35 AM EDT Body Mass Index 36.32 03/23/2021 9:35 AM EDT documented in this encounter Progress Notes Alberto Bhatia MD - 03/23/2021 9:30 AM EDT Images from the original note were not included. Dz: Metastatic urothelial carcinoma Patient Active Problem List Diagnosis Code ??? CIS - Depression ??? 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 ??? CIS - Hyperlipidemia ? ? CIS - Obesity->better weight control ??? CIS - Tobacco use ??? CIS - Type 2 diabetes ??? Urothelial carcinoma of kidney, right C64.1 [...] Urinary incontinence R32 ??? Neutropenia, drug-induced D70.2 HPI:Nancy Pichardo is 65 y.o. F referred by Dr. Renner for [...] retroperitoneal lymph nodes on January 22 at [facility]. Pathology is pending. PET scan demonstrated increased FDG uptake at the sites of urothelial thickening in the right renal pelvis and enlarged avid right para-aortic lymph nodes. Nancy complains on low energy level, difficulties sleeping and right flank discomfort.Creatinine went up to 1.7 on December 30 from baseline creatinine of 0.5 in October 2019. INTERVAL history:- Nancy returns to the [facility] today for urothelial carcinoma of rightkidney. She is accompanied by her Derek today. Nancy was admitted on March 19 with CHF/pulmonary edema thrombophlebitis of right upper extremity. She was started on diuretics and anticoagulation with Lovenox and and antibiotics with ciprofloxacin. She was found to have she still has some mild soreness. . She is complaining of acid burning in her throat. She is taking the omeprazole and TUMS. No burning today. She thinks the medication is working now. No mouth sores. She feels her whole system slows down after chemotherapy. She is taking Miralax and Senna and her bowels are moving well. No vomiting. Denies any fevers or chills. She has developed 2 raised areas with erythema on her right arm. She thinks they may have drawn blood at these sites. No drainage from sites. No other focalcomplaints today. She has also developed more edema in her LE. She does have some SOB with ambulation. PMH: No interval changes since last visit PTSD/depression, diabetes mellitus on insulin, arthritis, , hernia repair x3, anxiety, hysterectomy for urinary incontinence 2 to 3 years ago Social History: [id number] smoking history, quit 6 months ago, does [...] Palpitations hyper ??? Sulfa (Sulfonamide Antibiotics) Medications: Your Medications Accurate as of March 23, 2021 10:03 AM. If you have any questions, ask your nurse or doctor. Continued medications, unchanged Dose Details blood sugar [...] mouth 2 times daily. 250 mg Quantity: 10 tablet Refills: 0 cyanocobalamin (vitamin B-12) 500 mcg Tab Take 500 mcg by mouth daily. 500 mcg Refills: 0 docusate sodium 100 mg Cap Commonly known as: Colace Take 100 mg by mouth 2 times daily. 100 mg Refills: 0 enoxaparin 100 mg/mL Syrg Commonly known as: Lovenox Inject 90 mg subcutaneously. 90 mg Refills: 0 FreeStyle Yvon [address] 1 SENSOR TO BACK OF UPPER ARM EVERY 14 DAYS Generic drug: flash glucose sensor Refills: 0 furosemide 20 mg Tab Commonly known as: Lasix Take 20 mg by mouth 2 times daily. 20 mg Refills: 0 hydroCHLOROthiazide 12.5 mg Tab Commonly known as: Hydrodiuril Take 12.5 mg by mouth Daily. 12.5 mg Refills: 0 Insulin Tresiba FlexTouch U-100 100 unit/mL (3 mL) Inpn Inject 58 Units subcutaneously daily. Generic drug: insulin degludec 58 Units Refills: 0 losartan 100 mg Tab Commonly known as: COZAAR Take 100 mg by mouth daily. 100 mg Refills: 0 Jeanne Pen Needle 32 gauge x Ndle Generic drug: insulin needles (disposable) Refills: 0 NovoLOG U-100 Insulin aspart Soln Inject subcutaneously 3 times daily (with meals). Sliding scale Generic drug: insulin aspart U-100 Refills: 0 nystatin Powd Commonly known as: MYCOSTATIN APPLY 1 GRAM TOPICALLY TWO TIMES A DAY NEEDED FOR 30 DAYS Refills: 0 nystatin-triamcinolone Crea Commonly known as: MYCOLOG II Apply topically Twice daily. Refills: 0 omeprazole 20 mg Cpdr Commonly known as: PriLOSEC Take 1 capsule by mouth nightly. 20 mg Quantity: 30 capsule Refills: 0 ondansetron 8 mg Tab Commonly known as: Zofran Take 1 tablet by mouth every 8 hours as needed for Nausea. 8 mg Quantity: 20 tablet Refills: 3 prochlorperazine 10 mg Tab Commonly known as: Compazine Take 1 tablet by mouth every 6 hours as needed for Nausea. 10 mg Quantity: 30 tablet Refills: 2 pyridoxine (vitamin B6) 100 mg Tab Commonly known as: B-6 Take 100 mg by mouth daily. 100 mg Refills: 0 senna 8.6 mg Tab Commonly known as: Senokot Take 2 tablets by mouth 2 times daily. 2 tablet Quantity: 120 tablet Refills: 3 spironolactone 25 mg Tab Commonly known as: Aldactone Take 12.5 mg by mouth daily. Patient stated she cuts pill in half and only takes half a tablet daily. 12.5 mg Refills: 0 Review of Systems Constitutional: Positive for appetite change. Negative for chills and fever. Eyes: Negative for icterus. Respiratory: Negative for cough. Positive for SOB. Cardiovascular: Negative for chest pain. Positive for LE swelling. Genitourinary: Negative for difficulty urinating and hematuria. GI: Positive for burning in esophagus after treatments. Musculoskeletal: Generalized myalgias. Hematological: Negative for adenopathy. OBJECTIVE: Physical Exam Constitutional: Appearance: Normal appearance. [...] no distension. Palpations: There is no mass. Musculoskeletal: Right lower le+ edema Left lower le+ edema. Lymphadenopathy: Cervical: No cervical adenopathy. Skin: General: Skin is warm. 2 raised erythematous firm areas on right arm. Neurological: General: No focal deficit present. Mental Status: She is alert. Psychiatric: Mood and Affect: Mood normal. Thought Content: Thought content normal. Judgment: Judgment normal. BP 131/57 (Patient Position: Sitting) Pulse (!) 102 Temp (!) 35.1 ??C (95.1 ??F) (Temporal) Resp 16 Ht 160 cm (5' 2.99) Wt 93 kg (205 lb) SpO2 98% BMI 36.32 kg/m?? Wt Readings from Last 3 Encounters: 03/23/21 93 kg (205 lb) 03/16/21 95.6 kg (210 lb 12.8 oz) 03/09/21 93 kg (205 lb) Pathology: 01/22/21 retroperitoneal lymph node biopsy: A. LYMPH NODE, RETROPERITONEUM, CT-GUIDED CORE NEEDLE BIOPSY: - Positive for carcinoma, favor urinary bladder primary, high-grade. See comment. 12/25/2020 urine: High-grade urothelial carcinoma with superimposed abundant degenerative changes Labs: 03/22/2027 vitamin B12 more than 2000, sodium [...] WBC 10.4, hemoglobin 12.2, platelet count 347, Imagin03/22/2021 echocardiogram normal LV segmental wall motion. [...] discuss surgical option particularly right nephroureterectomy. Nancy received 2 cycles of Carbo/[place]. Last treatment was 2 weeks ago. She was admitted to [facility] with CHF exacerbation/pulmonary edema, decompensated diabetes And superficial phlebitis of right cephalic vein. Work-up was negative for deep venous thrombosis or pulmonary embolism. There was mild pericardial effusion on echocardiogram with normal LV function and moderate pericardial effusion on CT scan. She is currently on diuretics, anticoagulation with Lovenox and antibiotics ciprofloxacin with significant clinical improvement. She still feels very weak. We discussed continuation of chemotherapy given that chemotherapy can contribute to compensation of her CHF as well She has moderate anemia but did not require any blood transfusion. After discussion we decided to give her break from chemotherapy for 2 weeks. We discussed option of immunotherapy with checkpoint inhibitor. We talk about pros and cons of immunotherapy treatment. I want to see her back in 2 weeks to finalize a plan. We will hold off Mediport placement until we decide on continuation of chemo. # CHF: We will refer her to cardiology #Anemia: Most likely secondary to chemotherapy/myelosuppression. Kidney insufficiency could contribute to anemia as well. We will check her ferritin and folic acid level next blood work #Elevated WBC count: Most likely secondary to Neulasta # Gastric reflux/burning- Continue omeprazole, TUMS or Pepcid. Try taking prochlorperazine on Day 2,3 and 4 after treatment. #Right hydronephrosis: Creatinine is 1.7, stable Creatinine 1.4-1.7, status post right ureteral stent placement: December 23. PLAN: 1. Hold off gemcitabine and carboplatin 2. Continue anticoagulation with Lovenox and follow with PCP 3. Referral to cardiology at 4. Next visit in 2 weeks with blood work and third cycle of carboplatin and gemcitabine. Nancy voiced understanding of the plan and was given an opportunity to ask questions which I answered to the best of my ability. Nancy understands he can call the clinic between visits with any questions/concerns or new symptoms. documented in this encounter Plan of Treatment Upcoming Encounters Date Type Specialty Care Team Description 10/21/2022 Appointment Hematology and Oncology 10/21/2022 Hospital Encounter Radiology Adilene Link, [address] MEDICAL ONCOLOGY [place], [place] [id number] (Wo rk) 10/21/2022 Appointment Radiology Adilene Link [address] MEDICAL ONCOLOGY [place], [place] [address] (Wo rk) 10/21/2022 Appointment Radiology Adilene Link[address] MEDICAL ONCOLOGY [place], [place] [phone] (Wo rk) 10/25/2022 Office Visit Hematology and Oncology Alberto Guy MD [facility] [address] HEMATOLOGY/[place] [address] MEDICAL ONCOLOGY [place], [place] [phone] 11/09/2022 Office Visit Urology oBbo Davis MD [facility] UROLOGY [place], [place] [address] (Wo rk) Scheduled Referrals Name Type Priority Associated Diagnoses [facility] to Outpatient Referral Routine Urothelial carcinoma Ordered: Cardiology of kidney, right 03/23/2021 Congestive heart failure, unspecified HF chronicity, unspecified heart failure type documented as of this encounter Visit Diagnoses Diagnosis Urothelial carcinoma of kidney, right Neutropenia, drug-induced Drug induced neutropenia High risk medication use Encounter for long-term (current) use of other medications Encounter for chemotherapy management Cancer of renal pelvis, right Congestive heart failure, unspecified HF chronicity, unspecified heart failure type documented in this encounter
--- OUTSIDE RECORDS SUMMARY | 2022-10-07 18:41 | XMS_ITS | Encounter Summary ---
:1955 Author Organization [facility] [place] [address] Care Team Providers Name Role Phone Derek Torres Primary Care Provider Encounter Details Date Type Department Care Team Description 04/28/2021 Office Visit Hematology/Oncology Adilene Link, Urot helial carcinoma at [facility] [employer]ER of kidney, right [address] [place], [place] [address] [place], [place] [phone] (Wo rk) Social History Tobacco Use Types Packs/Day Years Used Date Former Smoker Cigarettes 0.25 Quit: 06/2020 Smokeless Tobacco: Never Used Sex Assigned at Date Recorded Not on file documented as of this encounter Last Filed Vital Signs Vital Sign Reading Time Taken Comments Blood Pressure 138/62 04/28/2021 1:06 PM EDT Pulse 89 04/28/2021 1:06 PM EDT Temperature 36.6 ??C (97.9 ??F) 04/28/2021 1:06 PM EDT Respiratory Rate 20 04/28/2021 1:06 PM EDT Oxygen Saturation 100% 04/28/2021 1:06 PM EDT Inhaled Oxygen Concentration - - Weight 94.3 kg (208 lb) 04/28/2021 1:06 PM EDT Height 160 cm (5' 2.99) 04/28/2021 1:06 PM EDT Body Mass Index 36.85 04/28/2021 1:06 PM EDT documented in this encounter Progress Notes Adilene Link, [employer] - 04/28/2021 1:30 PM EDT Images from the original note [...] for deep vein thrombosis (DVT) prophylaxis Z29.9 HPI:Nancy Pichardo is 66 y.o. F referred [...] lymph nodes on January 22 at [facility]. Pathology is pending. PET scan demonstrated [...] Lovenox and and antibiotics with ciprofloxacin. INTERVAL history(04/28/21):- Nancy returns to the [facility] today for urothelial carcinoma of right kidney and to continue treatment with carboplatin and gemcitabine. She has decided she wouldlike to postpone her treatments until after her CT scan. She is feeling well today. Urinary symptomshave resolved. No fevers or chills. She is taking the Eliquis now. She has a large hematoma on the left side of her abdomen where she was giving her Lovenox injections. No nausea, vomiting, constipation or diarrhea. She is still having intermittent arthralgias. No other focal complaints today. PMH: UTI E. coli 100,000 colonies PTSD/depression, diabetes mellitus on insulin, arthritis, , hernia repair x3, anxiety, hysterectomy for urinary incontinence 2 to 3 years ago Social History: [id number] smoking history, quit 6 months ago, does [...] Antibiotics) Medications: Your Medications Accurate as of April 28, 2021 3:16 PM. If you have any questions, ask your nurse or doctor. Continued medications, unchanged Dose Details apixaban 2.5 mg Tab Commonly known as: Eliquis Take 1 tablet by mouth 2 times daily. 2.5 mg Quantity: 60 tablet Refills: 5 blood sugar diagnostic strips Strp 1 strip by NOT APPLICABLE route Three times a day. 1 strip Refills: 0 cholecalciferol (Vitamin D3) 1,000 unit Tab Commonly known as: Vitamin D3 Take 1,000 Units by mouth Daily. 1,000 Units Refills: 0 ciprofloxacin 250 mg Tab Commonly known as: Cipro Take 1 tablet by mouth 2 times daily. 250 mg Quantity: 20 tablet Refills: 0 cyanocobalamin (vitamin B-12) 500 mcg Tab Take 500 mcg by mouth daily. 500 mcg Refills: 0 docusate sodium 100 mg Cap Commonly known as: Colace Take 100 mg by mouth 2 times daily. 100 mg Refills: 0 FreeStyle Yvon 2 Sensor [...] U-100 100 unit/mL (3 mL) Inpn Inject 56 Units subcutaneously daily. Generic drug: insulin degludec 56 Units Refills: 0 losartan 100 mg Tab Commonly known as: COZAAR Take 100 mg by mouth daily. 100 mg Refills: 0 Jeanne Pen Needle 32 gauge x 5/32 Ndle Generic drug: insulin needles (disposable) Refills: 0 nitrofurantoin 100 mg Cap Commonly known as: MACRODANTIN TAKE 1 CAPSULE BY MOUTH TWICE DAILY FOR 7 DAYS THEN JUST DAILY FOR 14 DAYS DIRECTED Refills: 0 nystatin Powd Commonly known as: [...] sodium phosphates Enem Commonly known as: FLEET Once Refills: 0 spironolactone 25 mg Tab Commonly [...] no distension. Palpations: There is no mass. 4x4cm Hematoma on right side of abdomen at injection site. Musculoskeletal: Right lower le+ edema Left lower le+ edema. Lymphadenopathy: Cervical: No cervical adenopathy. Skin: General: Skin is warm. Positive for several large ecchymotic areas on her abdomen. Neurological: General: No focal deficit present. Mental Status: She is alert. Psychiatric: Mood and Affect: Mood normal. Thought Content: Thought content normal. Judgment: Judgment normal. BP 138/62 (Patient Position: Sitting) Pulse 89 Temp 36.6 ??C (97.9 ??F) (Temporal) Resp 20 Ht 160 cm (5' 2.99) Wt 94.3 kg (208 lb) SpO2 100% BMI 36.85 kg/m?? Wt Readings from Last 3 Encounters: 04/28/21 94.3 kg (208 lb) 04/20/21 93.8 kg (206 lb 12.7 oz) 04/13/21 93.9 kg (207 lb) Pathology: 01/22/21 retroperitoneal lymph node biopsy: A. LYMPH NODE, RETROPERITONEUM, CT-GUIDED CORE NEEDLE BIOPSY: - Positive for carcinoma, favor urinary bladder primary, high-grade. See comment. 12/25/2020 urine: High-grade urothelial carcinoma with superimposed abundant degenerative changes Labs: 04/28/21- WBC-8.57 Hgb/Hct-8.8/27.0 Plt-281 ANC-6.06 Na-138 K+-4.7 [...] TB 0.3, AST 14, ALT 35, alkaline [id number], total protein 7.7, albumin 2.8, 04/09/2021 UA [...] right nephroureterectomy. Nancy received 2 cycles of Carbo/[place]. Last treatment was 25weeks ago. She was admitted to [facility] with CHF exacerbation/pulmonary edema, decompensated diabetes And superficial phlebitis of right cephalic vein. Work-up was negative for deep venous thrombosis or pulmonary embolism. There was mild pericardial effusion on echocardiogram with normal LV function and moderate pericardial effusion on CT scan. She susi diuretics, with significant clinical improvement. We will hold off Mediport placement until we decide on continuation of chemo. 04/13/21 she completed treatment with nitrofurantoin for UTI E. coli. Clinically she is asymptomatic today. Labs were reviewed. We will proceed with cycle 3 of chemotherapy. She is scheduled with restaging PET scan on April 30. 04/20/21- Nancy returns today for C3D8. AST-48 ALT-202. Unclear if this is due to macrodantin or gemcitabine. We will hold treatment today and have her discontinue the macrodantin. She is feeling well. Will have her repeat labs in one week and return for treatment. # CHF: Follows with Dr. Ebony Beckham, [...] 2,3 and 4 after treatment. #Frequent UTI: If she develops UTI again we will put her on maintenance nitrofurantoin daily #Right hydronephrosis: Creatinine is 1.1, stable Creatinine 1.4-1.7, status post right ureteral stent placement: December 23. # Anticoagulation- Discontinue lovenox injections. Begin Eliquis 2.5mg po twice daily. #LFTs- normalized today. PLAN: 1. Hold treatment today. 2 Restaging PET scan is scheduled for tomorrow. 3. Apply heat to hematoma on abdomen. 4. Next visit in [address] Bhatia to review scans. 5. Continue Eliquis 2.5mg po BID. Nancy voiced understanding of the plan and [...] 10/21/2022 Hospital Encounter Radiology Adilene Link APRN [address] [place] [address] [place] [address] (Kwadwo morataya) 10/21/2022 Appointment Radiology Adilene Link APRN [address] [place] [address] [place] [address] (Kwadwo morataya) 10/21/2022 Appointment Radiology Adilene Link [address] MEDICAL ONCOLOGY [place], [place] [phone] (Wo rk) 10/25/2022 Office Visit Hematology and Oncology Alberto Guy MD [facility] HEMATOLOGY/[place] [address] [address] MEDICAL ONCOLOGY [place], [place] [phone] 11/09/2022 Office Visit Urology Bobo Davis MD [facility] UROLOGY [place], [place] [address] (Wo rk) documented as of this encounter Visit Diagnoses Diagnosis Urothelial carcinoma of kidney, right documented in this encounter Care Teams Orthopedic Physician Relationship Specialty Start Date End Date Derek Torres PA PCP - General Internal Medicine 04/13/21 06/03/21 Mahnaz [address] [place], [place] [id number] documented as of this encounter
--- OUTSIDE RECORDS SUMMARY | 2022-10-07 18:41 | XMS_ITS | Encounter Summary ---
:1955 Author Organization [facility] Address [facility] [place] [address] Care Team Providers Name Role Phone Derek Torres Primary Care Provider Reason for Visit Reason Comments Follow-up Encounter Details Date Type Department Care Team Description 06/02/2021 Office Visit Urology at [facility] Bobo Davis MD Malignant neoplasm of [facility] rig ht renal pelvis Drive [address] [place] [facility] [address] [place] [address] [phone] Social History Tobacco Use Types Packs/Day Years Used Date Former Smoker Cigarettes 0.25 0 Quit: 06/2020 Smokeless Tobacco: Never Used Alcohol Use Standard Drinks/Week Comments Not Currently 0 (1 standard drink = 0.6 oz pure alcoho l) Sex Assigned at Date Recorded Not on file documented as of this encounter Patient Instructions Patient InstructionsManuel Bliss LPN - 06/02/2021 11:00 AM EDT Instructions following Cystoscopy Activity: As tolerated by [...] to void please call our office at [phone] before 5PM or [phone] after hours. Please call if: * you have copious blood in your urine * fevers greater than 101.3 F * you are unable to void The number for questions is [phone] before 5 PM weekdays and [phone] after 5 PM and weekends. Follow-up: With documented in this encounter Progress Notes Bobo Davis MD - 06/02/2021 11:00 AM EDT See other note from today documented in this encounter Plan of Treatment Upcoming Encounters Date Type Specialty Care Team Description 10/21/2022 Appointment Hematology and Oncology 10/21/2022 Hospital Encounter Radiology Adilene Link [address] [place] [address] (Wo rk) 10/21/2022 Appointment Radiology Adilene Link[address] [place] [address] (Wo rk) 10/21/2022 Appointment Radiology Adilene Link [address] [place] [address] (Wo rk) 10/25/2022 Office Visit Hematology and Oncology Alberto Guy MD [facility] DR HEMATOLOGY/[place] [address] Adilene Link [address] MEDICAL ONCOLOGY [place], [place] [phone] 11/09/2022 Office Visit Urology Bobo Davis MD [facility] DR UROLOGY [place], [place] [address] (Wo rk) documented as of this encounter Results Cystoscopy (06/02/2021 11:40 AM EDT) Narrative Bobo Davis MD - 06/02/2021 11:40 AM EDT Bobo Davis MD ? 06/02/2021 ??4:11 PM Procedure: Flexible Cystoscopy Surgeon: Bobo Davis Preoperative Diagnosis: History of Right Renal Pelvis Cancer Post Operative Diagnosis: No evidence of Bladder Cancer, Right ureteral stent Complications: None Procedure: Urinalysis revealed no evidence [...] retroversion. The anterior urethroscopy was normal. The ureteral orifices were in normal pos ition and effluxed clear urine. There was a minimally encrusted R ight double J stent in place. The bladder was otherwise normal. There were no bladder tumors, mucosal abnormalities or bladder stones. The cystoscope was removed. The patient tolerated the procedure without difficulty. There were no compli cations. Bobo Davis Bobo Davis MD PROCEDURE ORDERABLES documented in this encounter Visit Diagnoses Diagnosis Malignant neoplasm of right renal pelvis Malignant neoplasm of renal pelvis documented in this encounter Care Teams Wheel Setter Relationship Specialty Start Date End Date Derek Torres PA PCP - General Internal Medicine 04/13/21 06/03/21 Mahnaz [address] [place] [address] documented as of this encounter
--- OUTSIDE RECORDS SUMMARY | 2022-10-07 18:41 | XMS_ITS | Encounter Summary ---
:1955 Author Organization [facility] [place] [address] Care Team Providers Name Role Phone Derek Torres Primary Care Provider Encounter Details Date Type Department Care Team Description 05/11/2021 Notes Only Hematology/Oncology at Julia Morris MSW [facility] OFFICE OF CARE [address] [place] [address] [phone] Social History Tobacco Use Types Packs/Day Years Used Date Former Smoker Cigarettes 0.25 Quit: 06/2020 Smokeless Tobacco: Never Used Sex Assigned at Date Recorded Not on file documented as of this encounter Progress Notes Julia Morris MSW - 05/11/2021 12:17 PM EDT Follow up with pt during her infusion visit today. Pt indicated this is her last treatment. She expects to have surgery in May. Depending on her needs after surgery she understands she may need a stayin rehab. She continues to work with a keycase assembler (Jose Enrique) through the [employer] on getting onto the [facility] program which would get her more help at home. She continues to work through that process and paperwork. Reminded pt of [employer] availability and contact information. Will continue to follow. documented in this encounter Plan of Treatment Upcoming Encounters Date Type Specialty Care Team Description 10/21/2022 Appointment Hematology and Oncology 10/21/2022 Hospital Encounter Radiology Adilene Link[address] [place] [address] (Wo rk) 10/21/2022 Appointment Radiology Adilene Link[address] [place] [address] (Wo rk) 10/21/2022 Appointment Radiology Adilene Link[address] MEDICAL ONCOLOG[facility] [place] [address] (Wo rk) 10/25/2022 Office Visit Hematology and Oncology Alberto Guy MD [facility] DR HEMATOLOGY/[place] [address] [address] MEDICAL ONCOLOGY [place], [place] [address] 11/09/2022 Office Visit Urology Bobo Davis MD [facility] DR UROLOGY [place], [place] [address] (Wo rk) documented as of this encounter Visit Diagnoses Not on filedocumented in this encounter Care Teams Tire Shop Mechanic Relationship Specialty Start Date End Date Derek Torres PA PCP - General Internal Medicine 04/13/21 06/03/21 Mahnaz [address]LS[address] [place], [place] [address] documented as of this encounter
--- OUTSIDE RECORDS SUMMARY | 2022-10-07 18:41 | XMS_ITS | Encounter Summary ---
:1955 Author Organization [facility] [place] [address] Care Team Providers Name Role Phone Derek Torres Primary Care Provider Reason for Visit Reason Onset Date Comments Foot Swelling 05/18/2021 Encounter Details Date Type Department Care Team Description 05/18/2021 [facility] RN [address] [place] [address] [phone] Social History Tobacco Use Types Packs/Day Years Used Date Former Smoker Cigarettes 0.25 Quit: 06/2020 Smokeless Tobacco: Never Used Sex Assigned at Date Recorded Not on file documented as of this encounter Miscellaneous Notes Telephone Encounter - Uriel Oliva, RN - 05/18/2021 5:11 PM EDT Caller: Nancy Nish Roseny Relationship: Self Clarified Two Patient Identifiers: [x] Reason For Call: Foot Swelling Assessment/Symptom Review (onset, location, duration, what makes it better or worse, pertinent positives and negatives): Pt calling to report increased BLE edema from feet up to knees on both sides equally. She also reports a weight gain of 5# as well (211# on 05/11 and 216# today). She denies redness, pain or warmth in BLE. She denies any fevers. She reports GERD symptoms but states those are slowly resolving the further out from treatment she gets. Pt had C4D8 Gemicitabine on 05/11. She reports she is already on Lasix 20 mg twice daily and takes aldactone as well. We discussed up to 20% of patients treated with Gemzarexperience some degree of peripheral edema. Review of Systems Related to Reason for Call: System POS NEG Not Applicable Head (ENT /Neuro) [] [x] [] Cardiac [] [x] [] Respiratory [] [x] [] GI [] [x] [] [] [x] [] Musculoskeletal [] [x] [] Integumentary [] [x] [] Mental Health [] [x] [] Select Specific Decision Support Tool Used: Telephone Triage for Oncology Nurses, 3rd Edition, [employer], 2019 Disposition/Plan of Care: Defer to provider recommendation. Wondering if there is anything further to do, pt already elevating BLE when able and using compression stockings. Patient/Caregiver verbalizes understanding of plan of care: Yes Patient/Caregiver agrees with plan: Yes Advised patient/caregiver to: call office back for any new or worsening symptoms, aware to seek emergent eval if develops pain, redness, warmth in BLE Patient/Caregiver demonstrates understanding via teach back: Yes documented in this encounter Plan of Treatment Upcoming Encounters Date Type Specialty Care Team Description 10/21/2022 Appointment Hematology and Oncology 10/21/2022 Hospital Encounter Radiology Adilene Link[address] MEDICAL ONCOLOGY [place], [place] [phone] (Kwadwo rk) 10/21/2022 Appointment Radiology Adielne Link[address] MEDICAL ONCOLOGY [place], [place] [phone] (Wo rk) 10/21/2022 Appointment Radiology Adilene Link[address] ONCOLOGY [place], [place] [phone] (Kwadwo rk) 10/25/2022 Office Visit Hematology and Oncology Alberto Guy MD [facility] DR HEMATOLOGY/[place] [address] Adilene Link, COSMETIC SALES ASSISTANT [address] [place] [address] DR MEDICAL ONCOLOGY [facility] [place] [address] 11/09/2022 Office Visit Urology Bobo Davis MD [facility] UROLOGY [place], [place] [address] (Wo rk) documented as of this encounter Visit Diagnoses Not on filedocumented in this encounter Care Teams Belt Molder Relationship Specialty Start Date End Date Derek Torres PA PCP - General Internal Medicine 04/13/21 06/03/21 [address] [place], [place] [phone] documented as of this encounter
--- OUTSIDE RECORDS SUMMARY | 2022-10-07 18:41 | XMS_ITS | Encounter Summary ---
:1955 Author Organization [facility] [place] [address] Care Team Providers Name Role Phone Unavailable Primary Care Provider Unavailable Encounter Details Date Type Department Care Team Description 03/22/2021 Ancillary Procedure Radiology Library at [facility], Francisco Javier Duenas [facility] [address] VASCULAR SURGERY [phone] [place], [place] [address] (Wo rk) Social History Tobacco Use Types Packs/Day Years Used Date Former Smoker Cigarettes 0.25 Quit: 06/2020 Smokeless Tobacco: Never Used Sex Assigned at Date Recorded Not on file documented as of this encounter Plan of Treatment Upcoming Encounters Date Type Specialty Care Team Description 10/21/2022 Appointment Hematology and Oncology 10/21/2022 Hospital Encounter Radiology Adilene Link[address] MEDICAL ONCOLOGY [place], [place] [phone] (Wo rk) 10/21/2022 Appointment Radiology Adilene Link [address] MEDICAL ONCOLOGY [place], [place] [phone] (Wo rk) 10/21/2022 Appointment Radiology Adilene Link [address] MEDICAL ONCOLOGY [place], [place] [phone] (Wo rk) 10/25/2022 Office Visit Hematology and Oncology Alberto Guy MD [facility] DR HEMATOLOGY/[place] [address] Adilene Link, GAS DISTRIBUTION SUPERVISOR[address] [place] [address] 11/09/2022 Office Visit Urology Bobo Davis MD [facility] UROLOGY [place], [place] [address] (Wo rk) documented as of this encounter Procedures Procedure Name Priority Date/Time Associated Comments Diagnosis FILM LIBRARY STORAGE Routine 03/22/2021 12:53 PM Results for this ONLY ULTRASOUND EDT procedure ar e in STUDY the results section. documented in this encounter Results Film Library- Storage Only Ultrasound Study (03/22/2021 12:53 PM EDT) Specimen (Source) Anatomical Location Collection Method / Collectio n Time Received Time / Laterality Volume Narrative LAISHA LA - 03/22/2021 12:53 PM EDT This exam is auto-finalizing. It's purpo se is for storage only. Wilfredo Aragon MD IMG FILM LIBRARY ORDERABLES Performing Organization Address City/State/ZIP Code Phon e Number BESSIE [place], [place] documented in this encounter Visit Diagnoses Not on filedocumented in this encounter
--- OUTSIDE RECORDS SUMMARY | 2022-10-07 18:41 | XMS_ITS | Encounter Summary ---
:1955 Author Organization [facility] [place] [address] Care Team Providers Name Role Phone Derek Torres Primary Care Provider Reason for Visit Diagnostic Test (Routine) - Closed Specialty Diagnoses / Procedures Referred By Contact Refer red To Contact Radiology Diagnoses Urothelial carcinoma of kidney, right Metastatic urothelial carcinoma Alberto Bhatia MD [facility] Rad Nuclear Med Procedures NM PET CT Skull Base to Mid-thigh [facility] HEMATOLOGY/[place] [address] [place] [address] Referral ID Status Reason Start Date Expiration Date Visits V isits Requested Authorized [id number] Closed Specialty 04/06/2021 10/07/2022 1 1 Service Requested Encounter Details Date Type Department Care Team Description 04/30/2021 Hospital Encounter Nuclear Medicine at Mike Bhatia Mary Hitchcock MD [facility] [place] [address] HEMATOLOGY/ONCOLOGY [phone] [place], [place] [address] (Wo rk) Social History Tobacco Use Types Packs/Day Years Used Date Former Smoker Cigarettes 0.25 Quit: 06/2020 Smokeless Tobacco: Never Used Sex Assigned at Date Recorded Not on file documented as of this encounter Medications at Time of Discharge Medication Sig Dispensed Refills Start Date End Date humaLOG KwikPen 100 INJECT SUBCUTANEOUSLY 0 04/03 [...] U-100) 100 unit/mL (3 mL) Insulin Pen ciprofloxacin (Cipro) Take 1 tablet by 20 tablet 0 04/23/20 21 06/02/2021 250 mg mouth 2 times daily. TabletIndications: Metastatic urothelial carcinoma apixaban (Eliquis) 2.5 Take 1 tablet by 60 tablet 5 021 06/24/2021 mg TabletIndications: mouth 2 times daily. Thrombus, Metastatic urothelial carcinoma nitrofurantoin TAKE 1 CAPSULE BY 0 04/14/2021 (MACRODANTIN) 100 mg MOUTH TWICE DAILY FOR Capsule 7 DAYS THEN JUST DAILY FOR 14 DAYS DIRECTED sodium phosphates Place 1 enema 0 03/20/2021/04/2022 (FLEET) Enema rectally once as needed. cyanocobalamin, vitamin Take 500 mcg by mouth 0 06/15/2021 B-12, 500 mcg Tablet daily. pyridoxine, vitamin B6, Take 100 mg by mouth 0 06/15/2021 (B-6) 100 mg Tablet daily. furosemide (Lasix) 20 Take 20 mg by mouth 2 0 08/09/2022 mg Tablet times daily. omeprazole (PriLOSEC) Take 1 capsule by 30 capsule 0 021 06/15/2021 20 mg Capsule, Delayed mouth nightly. Release(E.C.) senna (Senokot) 8.6 mg Take 2 tablets by 120 tablet 3 202007/27/2021 Tablet mouth 2 times daily. FreeStyle Yvon [address] PL[address] 1 SENSOR TO 0 02/26/2021 05/04/2021 Sensor Kit BACK OF UPPER ARM EVERY 14 DAYS docusate sodium Take 100 mg by mouth 0 01/11/2022 (Colace) 100 mg Capsule 2 times daily. nystatin-triamcinolone Apply topically Twice 0 01/04/2022 (MYCOLOG II) Cream daily. losartan (COZAAR) 100 Take 100 mg by mouth 0 06/23/2021 mg Tablet daily. spironolactone Take 12.5 mg by mouth 0 06/23/2021 (Aldactone) 25 mg daily. Patient stated Tablet she cuts pill in half and only takes half a tablet daily. prochlorperazine Take 1 tablet by 30 tablet 2 01/26/2021 (Compazine) 10 mg mouth every 6 hours TabletIndications: as needed for Nausea. Malignant neoplasm of urinary bladder, unspecified site ondansetron (Zofran) 8 Take 1 tablet by 20 tablet 3 01/26/2 021 06/15/2021 mg TabletIndications: mouth every 8 hours Malignant neoplasm of as needed for Nausea. urinary bladder, unspecified site documented as of this encounter Plan of Treatment Upcoming Encounters Date Type Specialty Care Team Description 10/21/2022 Appointment Hematology and Oncology 10/21/2022 Hospital Encounter Radiology Adilene Link[address] MEDICAL ONCOLOGY [place], [place] [phone] (Kwadwo morataya) 10/21/2022 Appointment Radiology Adilene Link[address] MEDICAL ONCOLOGY [place], [place] [address] [phone] (Kwadwo morataya) 10/21/2022 Appointment Radiology Adilene Link[address] MEDICAL ONCOLOGY [place], [place] [address] [phone] (Kwadwo morataya) 10/25/2022 Office Visit Hematology and Oncology Alberto Guy MD [facility] DR HEMATOLOGY/[place] [address] [address] [place] [address] 11/09/2022 Office Visit Urology Boob Davis MD [facility] DR UROLOGY [place], [place] [address] (Wo rk) documented as of this encounter Procedures Procedure Name Priority Date/Time Associated Diagnosis Comme nts NM PET CT SKULL Routine 04/30/2021 10:20 AM Urothelial carcino ma Results for this BASE TO MID-THIGH EDT of kidney, rig ht procedure are in ([facility]) Metastatic the results urothelial carcinoma section . POCT GLUCOSE Routine 04/30/2021 8:52 AM Results f or this EDT procedure are i n the results section. documented in this encounter Results POCT Glucose (04/30/2021 8:52 AM EDT) athologist Signature POC Glucose 79 65 - 199 [facility] mg/dL [facility] Comment: Supplemental ranges: <140 mg/dL before meals <180 mg/dL all other times of the day Specimen Anatomical Collection Method Collection Time Receive d Time (Source) Location / / Volume Laterality Blood 04/30/2021 8:52 AM 8:52 EDT AM EDT Alberto Bhatia MD POINT OF CARE TEST ORDERABLE S Performing Organization Address City/State/[place] [address] documented in this encounter Visit Diagnoses Not on filedocumented in this encounter Administered Medications Inactive Administered Medications - up to 3 most recent administrations Medication Order MAR Action Action Date Dose Rate Site fludeoxyglucose (F-18) FDG Given 04/30/2021 8:58 AM 14.1 mCi Left Arm injection 0-20 mCi EDT 0-20 mCi, Intravenous, ONCE PRN, 1 dose, Starting on Mon04/30/21 at 0903, Until Mon04/30/21 at 0858, Per Protocol, Radiology Contrast, Routine documented in this encounter Care Teams Straight Tooth Gear Generator Operator Relationship Specialty Start Date End Date Derek Torres PA PCP - General Internal Medicine 04/13/21 06/03/21 Mahnaz [address] [place] [address] documented as of this encounter
--- OUTSIDE RECORDS SUMMARY | 2022-10-07 18:41 | XMS_ITS | Encounter Summary ---
:1955 Author Organization [facility] [place] [address] Care Team Providers Name Role Phone Derek Torres Primary Care Provider Encounter Details Date Type Department Care Team Description 05/11/2021 Office Visit Hematology/Oncology Rah Bhatia MD [facility] DR HEMATOLOGY/[place] [address] Urothelial carcinoma of kidney, right; at [facility], Adilene Mock, DELBERT [address] [place] [address] [place] [address] Neutropenia, drug-induced; [address] High risk medication use; [place], [place] Encounter f or chemotherapy management; [id number] Metastatic urothelial carcin flaquita [phone] Social History Tobacco Use Types Packs/Day Years Used Date Former Smoker Cigarettes 0.25 Quit: 06/2020 Smokeless Tobacco: Never Used Sex Assigned at Date Recorded Not on file documented as of this encounter Last Filed Vital Signs Vital Sign Reading Time Taken Comments Blood Pressure 177/78 05/11/2021 11:01 AM EDT Pulse 88 05/11/2021 11:01 AM EDT Temperature 36.1 ??C (97 ??F) 05/11/2021 11:01 AM EDT Respiratory Rate 20 05/11/2021 11:01 AM EDT Oxygen Saturation 100% 05/11/2021 11:01 AM EDT Inhaled Oxygen Concentration - - Weight 96 kg (211 lb 9.6 oz) 05/11/2021 11:01 AM EDT Height 160 cm (5' 2.99) 05/11/2021 11:01 AM EDT Body Mass Index 37.49 05/11/2021 11:01 AM EDT documented in this encounter Progress Notes Alberto Bhatia MD - 05/11/2021 11:00 AM EDT Images from the original note [...] deep vein thrombosis (DVT) prophylaxis Z29.9 HPI:Nancy Mock Pichardo is 66 y.o. F referred by [...] Lovenox and and antibiotics with ciprofloxacin. INTERVAL history(05/11/21):- Nancy returns to the [facility] today for urothelial carcinomaof right kidney and to continue treatment with carboplatin and gemcitabine. Overall she is feeling well today. [place] very tired after last cycle of chemotherapy but she will have urinary symptoms. No nausea, vomiting, constipation or diarrhea. She is still having intermittent arthralgias. No other focal complaints today. No hematuria or dysuria. She is scheduled for nephroureterectomy on June 16. PMH: No interval changes since last visit UTI E. coli 100,000 colonies PTSD/depression, diabetes mellitus on insulin, arthritis, , hernia repair x3, anxiety, hysterectomy for urinary incontinence 2 to 3 years ago Social History: [id number] smoking history, quit 6 months ago, does [...] Antibiotics) Medications: Your Medications Accurate as of May 11, 2021 11:32 AM. If you have any [...] Thought content normal. Judgment: Judgment normal. BP 177/78 (Patient Position: Sitting) Pulse 88 Temp 36.1 ??C (97 ??F) (Temporal) Resp 20 Ht 160 cm (5' 2.99) Wt 96 kg (211 lb 9.6 oz) SpO2 100% BMI 37.49 kg/m?? Wt Readings from Last 3 Encounters: 05/11/21 96 kg (211 lb 9.6 oz) 05/04/21 94.9 kg (209 lb 3.2 oz) 04/28/21 94.3 kg (208 lb) Pathology: 01/22/21 retroperitoneal lymph node biopsy: A. LYMPH NODE, RETROPERITONEUM, CT-GUIDED CORE NEEDLE BIOPSY: - Positive for carcinoma, favor urinary bladder primary, high-grade. See comment. 12/25/2020 urine: High-grade urothelial carcinoma with superimposed abundant degenerative changes Labs: WBC 3.26, hemoglobin 8.7, platelet count 205, [...] TB 0.3, AST 14, ALT 35, alkaline [id number], total protein 7.7, albumin 2.8, 04/09/2021 UA [...] particularly right nephroureterectomy. Nancy was admitted to [facility] with CHF exacerbation/pulmonary edema, decompensated diabetes and [...] surgery to decide about adjuvant immunotherapy treatment. # CHF: Follows with Dr. Ebony [...] twice daily. #LFTs- normalized today. PLAN: 1. Proceed with C4D8 Gemcitabine today 2. Continue Eliquis 2.5mg po BID. 4. Follow up with Urology Dr. Davis 5. Follow up visit on July 06 Nancy voiced understanding of the plan and was given an opportunity to ask questions which I answered to the best of my ability. Nancy Understands she can call the clinic between visits with any questions/concerns or new symptoms. documented in this encounter Plan of Treatment Upcoming Encounters Date Type Specialty Care Team Description 10/21/2022 Appointment Hematology and Oncology 10/21/2022 Hospital Encounter Radiology Adilene Link[address] ONCOLOGY [place], [place] [address] [phone] (Wo rk) 10/21/2022 Appointment Radiology Adilene Link[address] [place] [address] (Wo rk) 10/21/2022 Appointment Radiology Adilene Link[address] [place]COLOGY [place], [place] [address] [phone] (Wo rk) 10/25/2022 Office Visit Hematology and Oncology Alberto Guy MD [facility] DR HEMATOLOGY/[place] [address] [address] Link [address] ONCOLOGY [place], [place] [address] 11/09/2022 Office Visit Urology Bobo Davis MD [facility] DR UROLOGY [place], [place] [address] (Wo rk) documented as of this encounter Visit Diagnoses Diagnosis Urothelial carcinoma of kidney, right Neutropenia, drug-induced Drug induced neutropenia High risk medication use Encounter for long-term (current) use of other medications Encounter for chemotherapy management Metastatic urothelial carcinoma 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
--- OUTSIDE RECORDS SUMMARY | 2022-10-07 18:41 | XMS_ITS | Encounter Summary ---
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 Metastatic urothelial carcinoma [address] [place], [place] [address] [place], [place] [phone] (Wo rk) Social History Tobacco Use Types Packs/Day Years Used Date Former Smoker Cigarettes 0.25 Quit: 06/2020 Smokeless Tobacco: Never Used Sex Assigned at Date Recorded Not on file documented as of this encounter Last Filed Vital Signs Vital Sign Reading Time Taken Comments Blood Pressure 164/73 04/20/2021 9:07 AM EDT Pulse 95 04/20/2021 8:56 AM EDT Temperature 36.2 ??C (97.2 ??F) 04/20/2021 8:56 AM EDT Respiratory Rate 18 04/20/2021 8:56 AM EDT Oxygen Saturation 100% 04/20/2021 8:56 AM EDT Inhaled Oxygen Concentration - - Weight 93.8 kg (206 lb 12.7 oz) 04/20/2021 9:09 AM EDT Height 160 cm (5' 2.99) 04/20/2021 8:56 AM EDT Body Mass Index 36.64 04/20/2021 8:56 AM EDT documented in this encounter Progress Notes Adilene Link, IN FLIGHT REFUELING OPERATOR - 04/20/2021 9:30 AM EDT Images from the original [...] ??? Neutropenia, drug-induced D70.2 HPI:Nancy Pichardo is 66 y.o. F referred [...] retroperitoneal lymph nodes on January 22 at [facility]. Pathology is pending. PET [...] Lovenox and and antibiotics with ciprofloxacin. INTERVAL history(04/20/21):- Nancy returns to the [facility] today for urothelial carcinomaof right kidney and to continue treatment with carboplatin and gemcitabine. She is accompanied by her Derek today. She is still taking the nitrofurantoin and will decrease it to one pill a day. No fevers, chills or urinary symptoms. She states she is feeling great today. No nausea, vomiting, constipation or diarrhea. She is still having intermittent arthralgias. She is complaining of bruising on her abdomen where she has to give her lovenox injections. She discussed switching to Eliquiswith her PCP and would like to do that. No other focal complaints today. PMH: UTI E. coli 100,000 colonies PTSD/depression, diabetes mellitus on insulin, arthritis, , hernia repair x3, anxiety, hysterectomy for urinary incontinence 2 to 3 years ago Social History: [id number] smoking history, quit 6 months ago, does [...] Medications: Your Medications Accurate as of April 20, 2021 3:32 PM. If you have any questions, ask your nurse or doctor. New Medications Dose Details apixaban 2.5 mg Tab Commonly known as: Eliquis Take 1 tablet by mouth 2 times daily. Started by: Adilene Link APRN 2.5 mg Quantity: 60 tablet Refills: 5 Continued medications, unchanged Dose Details blood sugar diagnostic strips Strp 1 strip by NOT APPLICABLE route Three times a day. 1 strip Refills: 0 cholecalciferol (Vitamin D3) 1,000 unit Tab Commonly known as: Vitamin D3 Take 1,000 Units by mouth Daily. 1,000 Units Refills: 0 cyanocobalamin (vitamin B-12) 500 mcg [...] nitrofurantoin 100 mg Cap Commonly known as: Macrobid Take 1 capsule twice daily for 7 days then just daily for 14 days. Quantity: 28 tablet Refills: 0 nitrofurantoin 100 mg Cap Commonly known as: MACRODANTIN TAKE 1 CAPSULE BY MOUTH TWICE DAILY FOR 7 DAYS THEN JUST DAILY FOR 14 DAYS DIRECTED Refills: 0 NovoLOG U-100 Insulin aspart Soln [...] adenopathy. Positive for bruising after lovenox injections. OBJECTIVE: Physical Exam Constitutional: Appearance: Normal appearance. [...] Thought content normal. Judgment: Judgment normal. BP 164/73 (Patient Position: Sitting) Pulse 95 Temp 36.2 ??C (97.2 ??F) (Temporal) Resp 18 Ht 160 cm (5' 2.99) Wt 93.8 kg (206 lb 12.7 oz) SpO2 100% BMI 36.64 kg/m?? Wt Readings from Last 3 Encounters: 04/20/21 93.8 kg (206 lb 12.7 oz) 04/13/21 93.9 kg (207 lb) 04/06/21 93 kg (205 lb) Pathology: 01/22/21 retroperitoneal lymph node biopsy: A. LYMPH NODE, RETROPERITONEUM, CT-GUIDED CORE NEEDLE BIOPSY: - Positive for carcinoma, favor urinary bladder primary, high-grade. See comment. 12/25/2020 urine: High-grade urothelial carcinoma with superimposed abundant degenerative changes Labs: 04/20/21- WBC-4.52 Hgb/Hct-8.6/27.0 Plt-162 ANC-3.38 Na-140 K+-4.9 BUN/cr-43/1.1 Glucose-152 Ca-8.8 Mg-1.9 T. Bili-0.3 AST-48 ALT-202 Alk phos-98 Albumin-2.9 2021 WBC 9.84, hemoglobin 9, platelet count 332, ANC 7.14, sodium 142, potassium 4.5, BUN 48, creatinine 1.5, glucose 172, calcium 9.3, magnesium 1.8, TB 0.3, AST 14, ALT 35, alkaline [id number], total protein 7.7, albumin 2.8, 04/09/2021 UA [...] but it has not been gotten to [facility] yet. She is symptomatic with gross hematuria and vague right flank/side pain and discomfort. Feels very tired. She has comorbidities including diabetes mellitus on insulin and hypertension. Prognosis of metastatic urothelial carcinoma with median overall survival around a year and a half was discussed. She was referred to our urologist to discuss surgical option particularly right nephroureterectomy. Nancy received 2 cycles of Carbo/[place]. Last treatment was 25weeks ago. She was admitted to [facility] with CHF exacerbation/pulmonary edema, decompensated diabetes [...] injections. Begin Eliquis 2.5mg po twice daily. PLAN: 1. Hold gemcitabine today. Reschedule for next week. 2. Discontinue macrodantin 3. Restaging PET scan is scheduled 4. Next visit in 1 week with blood work and D8 of gemcitabine. 5. Discontinue Lovenox after injection this evening. Begin Eliquis 2.5mg po BID. Nancy voiced understanding [...] and Oncology 10/21/2022 Hospital Encounter Radiology Adilene Link[address] MEDICAL ONCOLOGY [place], [place] [address] (Wo rk) 10/21/2022 Appointment Radiology Adilene Link[address] MEDICAL ONCOLOGY [place], [place] [address] (Wo rk) 10/21/2022 Appointment Radiology Adilene Link[address] ONCOLOGY [place], [place] [address] (Wo rk) 10/25/2022 Office Visit Hematology and Oncology Alberto Guy MD [facility] HEMATOLOGY/[place] [address] [address] MEDICAL ONCOLOGY [place], [place] [address] [phone] 11/09/2022 Office Visit Urology Bobo Davis MD [facility] UROLOGY [place], [place] [address] (Wo rk) documented as of this encounter Visit Diagnoses Diagnosis Thrombus Embolism and thrombosis of unspecified s ite Metastatic urothelial carcinoma 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
--- OUTSIDE RECORDS SUMMARY | 2022-10-07 18:41 | XMS_ITS | Encounter Summary ---
:1955 Author Organization [facility] Address [facility] [address] [place] [address] Care Team Providers Name Role Phone Derek Torres Primary Care Provider Reason for Visit Reason Comments Follow-up Encounter Details Date Type Department Care Team Description 06/02/2021 Office Visit Urology at [facility] Bobo Davis MD Malignant neoplasm of [facility] rig ht renal pelvis Drive [address] [place] [address] [place] [address] [phone] Social History Tobacco Use Types Packs/Day Years Used Date Former Smoker Cigarettes 0.25 0 Quit: 06/2020 Smokeless Tobacco: Never Used Alcohol Use Standard Drinks/Week Comments Not Currently 0 (1 standard drink = 0.6 oz pure alcoho l) Sex Assigned at Date Recorded Not on file documented as of this encounter Last Filed Vital Signs Vital Sign Reading Time Taken Comments Blood Pressure 174/73 06/02/2021 11:06 AM EDT Pulse 88 06/02/2021 11:06 AM EDT Temperature 36.6 ??C (97.8 ??F) 06/02/2021 11:06 AM EDT Respiratory Rate - - Oxygen Saturation - - Inhaled Oxygen Concentration - - Weight 96.6 kg (213 lb) 06/02/2021 11:06 AM EDT Height - - Body Mass Index 37.74 05/11/2021 11:01 AM EDT documented in this encounter Progress Notes Bobo Davis MD - 06/02/2021 11:40 AM EDT Images from the original note were not included. Patient Name: Nancy Pichardo Date of Service: 06/02/2021 Primary Care Provider: DELORES Zaman Reason for Visit: Nancy Pichardo is a 66 y.o. female initially referred by Dr Gonsalez and Dr Renner for evaluation of urothelial cancer The patient has been tired for some time and developed hematuria. She was evaluated by Dr Renner whofound to have a Right renal pelvis tumor 12/25/[address] Renner 01/13/2021 High Grade Cytology A biopsy of her retroperitoneal lymph nodes 12/2020 Final Diagnosis A. LYMPH NODE, RETROPERITONEUM, CT-GUIDED CORE NEEDLE BIOPSY: - Positive for carcinoma, favor urinary bladder primary, high-grade. See comment. ~ 05/11/2021 Completed 4 cycles of GemCarbo Platin She was admitted after some of her chemo for CHF. Recently ~ 05/22 for a blood transfusion On apixaban related Right arm thrombo phlebitis. Currently the patient has a long history of irritative symptoms with frequencyand nocturia x 2-3 . Unchanged Voiding well. No blood. Flank pain. Has resolved. Appetite is OK. Weight stable Fatigue is improving..There is no bone pain. 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 The patient has been for ~20 years The patient drinks none. Tobacco: None x 6 months. ~ ~40 pack years Systems review: She can walk and do small chores. She gets fatigued easily. She is not limited by cardiovascular syptoms HEENT: Denies problems with vision, hearing, runny nose, epistaxis, sore throat, hoarseness Cardiovascular: Denies Chest pain, palpitations,, claudication. Has some shortness of breath and ankle swelling. Respiratory: Denies cough, phlegm, hemoptysis,wheeze, Gastrointestinal: Denies nausea, difficulty swallowing, vomiting, hematemesis, diarrhea, blood per rectum. SOme constipation Neurological: Denies dizziness, double vision, headache, weakness of one side of the body or the other,sudden loss of vision in one eye, Bones and muscles: Denies bone pain, radiating pain, muscle weakness or sore ness. All other systems negative. Physical Exam: A little SOB after moving around. A little pale. No adenoapthy HEENT normal CVS HS I &II normal nil added Chest clear to P&A Abdomen Benign, no masses, no organomegaly. Lower midline incision External genitalia normal Lab values are reviewed 02/01/2021 Cr 1.7, Alk 101, LFT's normal, Hb 10.7, Plt 392 05/11/2021 Hb 8.7, Cr 1.4, Alk 104, LFT's normal, Alb 2.9 X-rays are reviewed 12/18/2020 CT ABd 12/25/2020 [...] 05/2021 Right stent, minimally encrusted. No tumors Impression: #1: [id number] Urothelial cancer Stage IV sp Neoadjuvant chemotherapy with complete response in her node #2: CRI Stage III #3: Moderate comorbidity Plan PreOp anaesthesia consult Right nephroureterectomy + nodes with MMC at time of young removal Leave stent in place through surgery given her mid ureteral stricture (on Dr Mayfield op note) I discussed the rationale for surgery and the likelyhood we will find residual disease is ~ 50%.I discussed that she is at slightly higher risk of us not being able to completely dissect out the distalureter, given her prior multiple hernia repairs. We discussed the renal and ureteral portions of the procedure including the need for 7-10 day periodof post catheter drainage. The possibility of clipping the distal ureter in the immeadiate extravesical area and doing a delayed transurethral resection of this portion. I discussed the pre,intra and post operative care and decision making. We discussed the risks of thesurgery including bleeding(the necessity for a blood transfusion and it's risks including HIV/Hepatitis) and infection, injury to adjacent organs, small and large bowel, rectum, liver, spleen, pancreas, nerves, blood vessels, bladder, ureter etc. I discussed the risk of conversion to open surgery. I also discussed the risks of unexpected complications leading to prolonged hospitalization, prolonged ICU care, reoperation etc. Clearly anytime we remove a kidney there is a risk of short and salvage determiner renal dysfunction possibly includung dialysis. However, I consider this unlikely. As the operation is being performed for a ureteral malignancy there is the potential for incomplete tumor or ureteral resection, tumor reccurrence and the need for additional treatment (chemo/radiation/surgery) in the postoperative period. A total of 60 minutes were spent in a combination of chart review, discussion with the patient and documentation. documented in this encounter Procedure Notes Bobo Davis MD - 06/02/2021 11:40 AM EDTAssociated Order(s): CYSTOSCOPY Pre-Procedure Diagnose(s): Malignant neoplasm of right renal pelvis Procedure: Flexible Cystoscopy Surgeon: Bobo Davis Preoperative [...] normal. The ureteral orifices were in normal position and effluxed clear urine. There was a minimally encrusted Right double J stent in place. The bladder was otherwise normal. There were no bladder tumors, mucosal abnormalities or bladder stones. The cystoscope was removed. The patient tolerated the procedure without difficulty. There were no complications. Bobo Davis documented in this encounter Plan of Treatment Upcoming Encounters Date Type Specialty Care Team Description 10/21/2022 Appointment Hematology and Oncology 10/21/2022 Hospital Encounter Radiology Adilene Link[address] MEDICAL ONCOLOGY [place], [place] [address] [phone] (Wo rk) 10/21/2022 Appointment Radiology Adilene Link[address] MEDICAL ONCOLOGY [place], [place] [address] [phone] (Wo rk) 10/21/2022 Appointment Radiology Adilene Link[address] MEDICAL ONCOLOGY [place], [place] [address] (Wo rk) 10/25/2022 Office Visit Hematology and Oncology Alberto Guy MD [facility] DR HEMATOLOGY/[place] [address] [address] MEDICAL ONCOLOGY [place], [place] [address] 11/09/2022 Office Visit Urology Bobo Davis MD [facility] DR UROLOGY [place], [place] [address] (Wo rk) documented as of this encounter Procedures Procedure Name Priority Date/Time Associated Diagnosis Comme nts CYSTOSCOPY Routine 06/02/2021 11:40 AM Malignant neoplasm Re sults for this EDT of right renal procedure are in pelvis the results section. HC URINE CULTURE Routine 06/02/2021 11:14 AM Malignant neoplas m Results for this EDT of right renal procedure are in pelvis the results section. documented in this encounter Results Urine culture Clean Catch Urine (06/02/2021 11:14 AM EDT) Component Value Ref Test Analysis Performed At [facility] Range Method Time Signature Urine Culture 10,000-49,000 cfu/ml Normal mucosal mekhi LORE Susceptibility testing not routinely performed for Coagula se Negative BIBI Staphylococcus species and other Gram Positive organisms f rom urine. [facility] Specimen Anatomical Collection Method Collection Time Receive d Time (Source) Location / / Volume Laterality Clean Catch 06/02/2021 11:14 06/02/2021 Urine AM EDT 12:46 PM EDT Resulting Agency Comment Spec In Lab Bobo Davis MD MICROBIOLOGY - GENERAL ORDER PAULINO Performing Organization Address City/State/ZIP [place] [address] documented in this encounter Visit Diagnoses Diagnosis Malignant neoplasm of right renal pelvis Malignant neoplasm of renal pelvis documented in this encounter Care Teams Rn Case Mgr Relationship Specialty Start Date End Date Derek Torres PA PCP - General Internal Medicine 04/13/21 06/03/21 [address] [place] [address] documented as of this encounter
--- OUTSIDE RECORDS SUMMARY | 2022-10-07 18:41 | XMS_ITS | Encounter Summary ---
:1955 [place] [address] Care Team Providers Name Role Phone Unavailable Primary Care Provider Unavailable Encounter Details Date Type Department Care Team Description 03/24/2021 Orders [facility] Urothelial carcinoma of kidney, right; [facility] High risk medication use [address] [place] [address] HEMATOLOGY/ONCOLOG [phone] [place], [place] [address] Social History Tobacco Use Types Packs/Day Years Used Date Former Smoker Cigarettes 0.25 Quit: 06/2020 Smokeless Tobacco: Never Used Sex Assigned at Date Recorded Not on file documented as of this encounter Plan of Treatment Upcoming Encounters Date Type Specialty Care Team Description 10/21/2022 Appointment Hematology and Oncology 10/21/2022 Hospital Encounter Radiology Adilene Link [address] MEDICAL ONCOLOGY [place], [place] [phone] (Wo rk) 10/21/2022 Appointment Radiology Adilene Link [address] MEDICAL ONCOLOGY [place], [place] [phone] (Wo rk) 10/21/2022 Appointment Radiology Adilene Link [address] MEDICAL ONCOLOGY [place], [place] [phone] (Kwadwo rk) 10/25/2022 Office Visit Hematology and Oncology Alberto Guy MD [facility] DR HEMATOLOGY/[place] [address] Adilene Link, [address] [place] [address] 11/09/2022 Office Visit Urology Bobo Davis MD [facility] [address] UROLOGY [place], [place] [address] (Wo rk) documented as of this encounter Visit Diagnoses Diagnosis Urothelial carcinoma of kidney, right High risk medication use Encounter for long-term (current) use of other medications documented in this encounter
--- OUTSIDE RECORDS SUMMARY | 2022-10-07 18:41 | XMS_ITS | Encounter Summary ---
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 [address] [place], [place] [address] [place], [place] [phone] (Wo rk) Social History Tobacco Use Types Packs/Day Years Used Date Former Smoker Cigarettes 0.25 Quit: 06/2020 Smokeless Tobacco: Never Used Sex Assigned at Date Recorded Not on file documented as of this encounter Last Filed Vital Signs Vital Sign Reading Time Taken Comments Blood Pressure 146/79 05/04/2021 10:39 AM EDT Pulse 88 05/04/2021 10:39 AM EDT Temperature 36.4 ??C (97.5 ??F) 05/04/2021 10:39 AM EDT Respiratory Rate 18 05/04/2021 10:39 AM EDT Oxygen Saturation 100% 05/04/2021 10:39 AM EDT Inhaled Oxygen Concentration - - Weight 94.9 kg (209 lb 3.2 oz) 05/04/2021 10:39 AM EDT Height 160 cm (5' 2.99) 05/04/2021 10:39 AM EDT Body Mass Index 37.07 05/04/2021 10:39 AM EDT documented in this encounter Progress Notes Adilene Link, TELEPHONE SUPERVISOR - 05/04/2021 11:00 AM EDT Dz: Metastatic urothelial carcinoma Patient Active Problem [...] retroperitoneal lymph nodes on January 22 at [facility]. Pathology is pending. PET scan demonstrated [...] Lovenox and and antibiotics with ciprofloxacin. INTERVAL history(05/04/21):- Nancy returns to the [facility] today for urothelial carcinoma of right kidney and to continue treatment with carboplatin and gemcitabine. Overall she is feeling well today. Urinary symptoms have resolved. She has one day of the Cipro left. No fevers or chills. Sheis taking the Eliquis now. She has a large hematoma on the left side of her abdomen where she was giving her Lovenox injections which is slowly resolving. No nausea, vomiting, constipation or diarrhea.She is still having intermittent arthralgias. No other focal complaints today. No hematuria or dysuria. She was contacted to have her urethral stent changed but she wants to wait until she is finished with the chemotherapy. She states her urination patterns have improved and she is no longer having incontinence. PMH: UTI E. coli 100,000 colonies PTSD/depression, diabetes mellitus on insulin, arthritis, , hernia repair x3, anxiety, hysterectomy for urinary incontinence 2 to 3 years ago Social History: [id number] smoking history, quit 6 months ago, does [...] Medications: Your Medications Accurate as of May 04, 2021 12:52 PM. If you have any questions, ask [...] Thought content normal. Judgment: Judgment normal. BP 146/79 (Patient Position: Sitting) Pulse 88 Temp 36.4 ??C (97.5 ??F) (Temporal) Resp 18 Ht 160 cm (5' 2.99) Wt 94.9 kg (209 lb 3.2 oz) SpO2 100% BMI 37.07 kg/m?? Wt Readings from Last 3 Encounters: 05/04/21 94.9 kg (209 lb 3.2 oz) 04/28/21 94.3 kg (208 lb) 04/20/21 93.8 kg (206 lb 12.7 oz) Pathology: 01/22/21 retroperitoneal lymph node biopsy: A. LYMPH NODE, RETROPERITONEUM, CT-GUIDED CORE NEEDLE BIOPSY: - Positive for carcinoma, favor urinary bladder primary, high-grade. See comment. 12/25/2020 urine: High-grade urothelial carcinoma with superimposed abundant degenerative changes Labs: 05/04/21- WBC-9.20 Hgb/Hct-9.6/30.7 Plt-446 ANC-6.62 Na-141 K+-4.5 [...] TB 0.3, AST 14, ALT 35, alkaline [id number], total protein 7.7, albumin 2.8, 04/09/2021 UA [...] right nephroureterectomy. Nancy received 2 cycles of Carbo/[place]. Last treatment was 25weeks ago. She was admitted to [facility] with CHF exacerbation/pulmonary edema, decompensated diabetes [...] placement: December 23. # Anticoagulation- Discontinue lovenox injections.Continue Eliquis 2.5mg po twice daily. #LFTs- normalized today. PLAN: 1. Proceed with C4D1 Carbo/Gemcitabine as scheduled. 2. Apply heat to hematoma on abdomen. 3. Continue Eliquis 2.5mg po BID. 4. Follow up with Urology re stent 5. Follow up visit in one week with CBC,CMP and infusion. Nancy voiced understanding of the plan and [...] 10/21/2022 Hospital Encounter Radiology Adilene Link APRN [address] [place] [address] [place] [address] (Wo rk) 10/21/2022 Appointment Radiology Adilene Link[address] MEDICAL ONCOLOGY [place], [place] [phone] (Wo rk) 10/21/2022 Appointment Radiology Adilene Link, [address] MEDICAL ONCOLOGY [place], [place] [phone] (Wo rk) 10/25/2022 Office Visit Hematology and Oncology Alberto Guy MD [facility] HEMATOLOGY/[place] [address] [address] MEDICAL ONCOLOGY [place], [place] [phone] 11/09/2022 Office Visit Urology Bobo Davis MD [facility] DR UROLOGY [place], [place] [address] (Wo rk) documented as of this encounter Procedures Procedure Name Priority Date/Time Associated Diagnosis Comme nts LAB SCAN 05/04/2021 12:00 AM Results for this EDT procedure are i n the results section . documented in this encounter Results SCAN DOC: LAB (05/04/2021 12:00 AM EDT) Narrative 05/04/2021 12:00 AM EDT This result has an attachment that is no t available. Ordered by an unspecified provider. Scanning Provider MEDIA MGR SCAN EXT ORDR/RSLT documented in this encounter Visit Diagnoses Diagnosis Urothelial carcinoma of kidney, right documented in this encounter Care Teams Head Porter Baggage Relationship Specialty Start Date End Date Derek Torres PA PCP - General Internal Medicine 04/13/21 06/03/21 [address] [place], [place] [address] documented as of this encounter
--- OUTSIDE RECORDS SUMMARY | 2022-10-07 18:41 | XMS_ITS | Encounter Summary ---
:1955 Author Organization [facility] Address [facility] [address] [place] [address] Care Team Providers Name Role Phone Derek Torres Primary Care Provider Encounter Details Date Type Department Care Team Description 05/05/2021 Orders Only Urology at [facility] Bobo Davis MD Malignant neoplasm of [facility] rig ht renal pelvis Drive (Primary Dx) [place] [address] UROLOGY [phone] [place], [place] [address] Social History Tobacco Use Types Packs/Day Years Used Date Former Smoker Cigarettes 0.25 Quit: 06/2020 Smokeless Tobacco: Never Used Sex Assigned at Date Recorded Not on file documented as of this encounter Plan of Treatment Upcoming Encounters Date Type Specialty Care Team Description 10/21/2022 Appointment Hematology and Oncology 10/21/2022 Hospital Encounter Radiology Adilene Link [address] MEDICAL ONCOLOGY [place], [place] [phone] (Wo rk) 10/21/2022 Appointment Radiology Adilene Link [address] [place] [address] (Wo rk) 10/21/2022 Appointment Radiology Adilene Link [address] [address] (Wo rk) 10/25/2022 Office Visit Hematology and Oncology Alberto Guy MD [facility] DR HEMATOLOGY/[place] [address] [address] [address] 11/09/2022 Office Visit Urology Bobo Davis MD [facility] DR UROLOGY [place], [place] [address] (Wo rk) documented as of this encounter Results (ABNORMAL) Comprehensive metabolic panel (non-fasting) (06/02/2021 2:10 PM EDT) athologist Signature Glucose Lvl 65 65 - 199 [facility] mg/dL [facility] Comment: Diabetes: >=200 mg/dL plus symp toms BUN 33 (H) 8 - 18 mg/dL [facility] Creatinine 1.07 0.70 - 1.20 mg/dL [facility] Sodium 142 135 - 145 mmol/L [facility] Potassium 3.8 3.5 - 5.0 mmol/L [facility] Comment: Please note: ??Patients with [...] [facility] Anion Gap 13 5 - 15 mmol/L [facility] Calcium 9.3 8.5 - 10.5 mg/dL [facility] Total Protein 7.8 6.1 - 8.0 gm/dL [facility] Albumin 4.1 3.2 - 5.2 gm/dL [facility] AST 15 0 - 30 unit/L [facility] ALT 20 0 - 30 unit/L [facility] Alk Phos 114 (H) 35 - 105 unit/L [facility] Total Bilirubin 0.2 0.2 - 1.3 mg/dL [facility] Estimated GFR 54 (L) >=60 mL/min/1.73 m?? [facility] Davis MD CHEMISTRY ORDERABLES Performing Organization Address City/[facility]/[place] [address] Urine culture Clean Catch Urine (06/02/2021 11:14 AM EDT) Component Value Ref Test Analysis Performed At [facility] gist Range Method Time Signature Urine Culture 10,000-49,000 cfu/ml Normal mucosal mekhi LORE Susceptibility testing not routinely performed for Coagula se Negative BIBI Staphylococcus species and other Gram Positive organisms f rom urine. [facility] Specimen Anatomical Collection Method Collection Time Receive d Time (Source) Location / / Volume Laterality Clean Catch 06/02/2021 11:14 06/02/2021 Urine AM EDT 12:46 PM EDT Resulting Agency Comment Spec In Lab Bobo Davis MD MICROBIOLOGY - GENERAL ORDER PAULINO Performing Organization Address City/State/[place] [address] documented in this encounter Visit Diagnoses Diagnosis Malignant neoplasm of right renal pelvis - Primary Malignant neoplasm of renal pelvis documented in this encounter Care Teams Interior Design Director Relationship Specialty Start Date End Date Derek Torres PA PCP - General Internal Medicine 04/13/21 06/03/21 [address] [place] [address] documented as of this encounter
--- OUTSIDE RECORDS SUMMARY | 2022-10-07 18:41 | XMS_ITS | Encounter Summary ---
:1955 Author Organization [facility] [place] [address] Care Team Providers Name Role Phone Derek Torres Primary Care Provider Reason for Visit Reason Onset Date Comments Dysuria 04/14/2021 Encounter Details Date Type Department Care Team Description 04/14[facility]20[facility] RN [address] [place] [phone] Social History Tobacco Use Types Packs/Day Years Used Date Former Smoker Cigarettes 0.25 Quit: 06/2020 Smokeless Tobacco: Never Used Sex Assigned at Date Recorded Not on file documented as of this encounter Miscellaneous Notes Telephone Encounter - Uriel Oliva, RN - 04/14/2021 12:00 PM EDT Spoke with Nancy Pichardo who reports starting this morning experiencing dysuria. She reports this happens with her chemotherapy treatments. Her urine is dark, pt pushing oral fluid intake and she denies any fevers. She is aware for BG will be higher than normal from the steroid she gets pre-chemo and they should stabilize the further she gets from treatment. Reviewed with Dr Bhatia. Will start Nitr ofurantoin 100 mg twice daily x 7 days then decrease to 1 capsule daily for 2 weeks. Pt is in agreement with plan and will call with any changes or concerns. ----- Message from Klely Mitchell sent at 04/14/2021 11:28 AM EDT ----- Regarding: Burning again when urinating Nancy called to ask for some medication to be called into the pharmacy. Burning again when urinating. Sugar went high with the steroid. Maricruz Kramer Please give her a call [phone] Thank you, Kelly documented in this encounter Plan of Treatment Upcoming Encounters Date Type Specialty Care Team Description 10/21/2022 Appointment Hematology and Oncology 10/21/2022 Hospital Encounter Radiology Adilene Link[address] MEDICAL ONCOLOGY [place], [place] [address] (Wo rk) 10/21/2022 Appointment Radiology Adilene Link[address] ONCOLOGY [place], [place] [address] (Wo rk) 10/21/2022 Appointment Radiology Adilene Link[address] ONCOLOGY [place], [place] [address] (Wo rk) 10/25/2022 Office Visit Hematology and Oncology Alberto Guy MD [facility] DR HEMATOLOGY/[place] [address] [address] MEDICAL ONCOLOGY [place], [place] [address] 11/09/2022 Office Visit Urology Bobo Davis MD [facility] DR UROLOGY [place], [place] [address] (Wo rk) documented as of this encounter Visit Diagnoses Diagnosis Metastatic urothelial carcinoma 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
--- OUTSIDE RECORDS SUMMARY | 2022-10-07 18:41 | XMS_ITS | Encounter Summary ---
:1955 Author Organization [facility] [place] [address] Care Team Providers Name Role Phone Unavailable Primary Care Provider Unavailable Reason for Visit Reason Onset Date Comments Other 03/15/2021 Encounter Details Date Type Department Care Team Description 03/15/2021 Telephone Hematology/Oncology at Barb Pichardo RN Other [address] [phone] Social History Tobacco Use Types Packs/Day Years Used Date Former Smoker Cigarettes 0.25 Quit: 06/2020 Smokeless Tobacco: Never Used Sex Assigned at Date Recorded Not on file documented as of this encounter Miscellaneous Notes Telephone Encounter - Barb Dennis RN - 03/15/2021 1:23 PM EDT TRIAGE CALL Caller: patient Reason for Call: swelling in legs, SOB Symptom Review: Onset: over weekend Location: legs Duration: ongoing What makes it better: resting What makes it worse: activity Timing of symptoms: 7 days post chemo Review of Systems related to Reason for Call: Integumentary: Pos Head (ENT/Neuro): Neg Respiratory: Pos Cardiac: Neg GI: Pos : Neg Musculoskeletal: Pos Pertinent Positive and Negative findings: Pt with complaints of shortness of breath with activity, 2plus edema in lower legs, 1 plus in thighs,lower back pulsating pain, burning hardeep esophagus, some round nodules on arms where had blood drawn and IV placements Select specific Decision Support Tool used: Adilene Link NP Disposition: Routine office appointment tomorrow at 915 am Plan of Care: continue as doing, have labs at 830 am and then come down to see provider Per Decision Support Tool (note specific protocol from text selected above): Adilene Patient/responsible caregiver able to read back instructions/plan of care? yes Recommendations for worsening condition given to patient/responsible caregiver? Call clinic Patient/responsible caregiver able to read back actions for worsening condition? yes Patient/responsible caregiver intends to comply with action/disposition? yes Follow up needed? yes If yes, outline: office visit documented in this encounter Plan of Treatment Upcoming Encounters Date Type Specialty Care Team Description 10/21/2022 Appointment Hematology and Oncology 10/21/2022 Hospital Encounter Radiology Adilene Link[address] MEDICAL ONCOLOGY [place], [place] [address] [phone] (Wo rk) 10/21/2022 Appointment Radiology Adilene Link[address] ONCOLOGY [place], [place] [address] [phone] (Wo rk) 10/21/2022 Appointment Radiology Adilene Link[address] [place] [address] (Wo rk) 10/25/2022 Office Visit Hematology and Oncology Alberto Guy MD [facility] DR HEMATOLOGY/[place] [address] [address] [place] [address] 11/09/2022 Office Visit Urology Bobo Davis MD [facility] DR UROLOGY [place], [place] [address] (Wo rk) documented as of this encounter Visit Diagnoses Diagnosis Malignant neoplasm of urinary bladder, u nspecified site Urothelial carcinoma of kidney, right documented in this encounter
--- OUTSIDE RECORDS SUMMARY | 2022-10-07 18:41 | XMS_ITS | Encounter Summary ---
:1955 Author Organization [facility] [place] [address] Care Team Providers Name Role Phone Unavailable Primary Care Provider Unavailable Reason for Visit Reason Comments Chemotherapy Gemcitabine, Cycle 2, Day 8 Treatment/Therapy Plan Authorization (Routine) - Specialty Diagnoses / Procedures Referred By Contact Refer red To Contact Diagnoses Urothelial carcinoma of kidney, right Malignant neoplasm of urinary bladder, unspecified site Neutropenia, drug-induced Alberto Bhatia MD [facility] Hem Onc Office Procedures TC PALONOSETRON HCL, 25MCG, INJECTION (ALOXI) TC APREPITANT, 1 MG, INJECTION [address] HEMATOLOGY/[place] [phone] Fax: Referral ID Status Reason Start Date Expiration Date Visits V isits Requested Authorized [id number] 02/05/2021 12/19/2021 99 99 Encounter Details Date Type Department Care Team Description 03/09/2021 Infusion Hematology Oncology at [facility] lignant neoplasm of urinary bladder, unspecified site; [facility] Neutropenia, drug-induced; [address] [place] [address] Urothelial carcinoma of kidn ey, right [place], [place] [phone] Social History Tobacco Use Types Packs/Day Years Used Date Former Smoker Cigarettes 0.25 Quit: 06/2020 Smokeless Tobacco: Never Used Sex Assigned at Date Recorded Not on file documented as of this encounter Progress Notes Tiana Harris RN - 03/09/2021 10:30 AM EDT INFUSION THERAPY ADMINISTRATION NOTES DIAGNOSIS: Urothelial cancer CYCLE #2, Day 8 REASON FOR VISIT: Gemzar infusion; Application of On-pro device SUBJECTIVE Nancy offers no complaints. OBJECTIVE LAB DATA: WNL from today; Seen by Adilene Link APRN prior to visit & cleared for treatmentl. IV ACCESS: PIV Pre administration: Chemotherapy orders independently verified for drug name, route, and dosage per patient's height, weight and BSA by TIANA HARRIS, MORTEZA & On-site pharmacist. REACTIONS (DESCRIPTION, TIME, INTERVENTION AND EFFECTIVENESS) none ASSESSMENT Nancy Pichardo tolerated her infusion well. On-Pro applied to right arm at 1120 PLAN Remove On-Pro device tomorrow 03/10/21 @ 1520. Return to clinic as scheduled. documented in this encounter Plan of Treatment Upcoming Encounters Date Type Specialty Care Team Description 10/21/2022 Appointment Hematology and Oncology 10/21/2022 Hospital Encounter Radiology Adilene Link[address] [place] [address] (Wo rk) 10/21/2022 Appointment Radiology Adilene Link[address] [place] [place] [address] (Wo rk) 10/21/2022 Appointment Radiology Adilene Link[address] [place] [address] (Wo rk) 10/25/2022 Office Visit Hematology and Oncology Alberto Guy MD [facility] DR HEMATOLOGY/ON[place] [address] [address] [place] [address] 11/09/2022 Office Visit Urology Bobo Davis MD [facility] UROLOGY [place], [place] [address] (Wo rk) documented as of this encounter Visit Diagnoses Diagnosis Malignant neoplasm of urinary bladder, u nspecified site Neutropenia, drug-induced Drug induced neutropenia Urothelial carcinoma of kidney, right documented in this encounter Administered Medications Inactive Administered Medications - up to 3 most recent administrations Medication Order MAR Action Action Date Dose Rate Site famotidine (Pepcid) (10 mg/mL) Given 03/09/2021 10:55 AM EDT 20 mg injection 20 mg 20 mg, Intravenous, ONCE, 1 dose, On Mon03/09/21 at 1100 GEMcitabine 2,000 mg in sodium New Bag 03/09/2021 11:14 AM EDT 2,000 mg 605.2 mL/hr chloride 0.9% 302.6 mL infusion 2,000 mg, Intravenous, ONCE, 1 dose, On Mon03/09/21 at 1200, Administer over 30 Minutes, Warning Vesicant/Irritant Medication Dose Ordered = 2050 mg (1000 mg/m2). Pharmacist rounded dose per procedure. ondansetron (pf) (Zofran) (2 mg/mL) injection Given 10:55 AM EDT 8 mg 8 mg 8 mg, Intravenous, ONCE, 1 dose, On Mon03/09/21 at 1100, Administer prior to chemotherapy. pegfilgrastim (Neulasta Onpro) (6 Given 03/09/2021 11:20 AM EDT 6 mg Right Arm mg/0.6 mL) injection kit 6 mg 6 mg, Subcutaneous, ONCE, 1 dose, On Mon03/09/21 at 1100, Allow the prefilled syringe co-packaged with the on-body injector to reach room temperature at least 30 minutes prior to administration., Routine, This agent is restricted to outpatient use. Is this drug being given as an outpatient? Yes sodium chloride 0.9% infusion New Bag 03/09/2021 10:56 AM EDT 100 mL/hr 100 mL/hr 100 mL/hr, Intravenous, CONTINUOUS, Starting on Mon03/09/21 at 1100, Until Mon03/09/21 at 1556 documented in this encounter
--- OUTSIDE RECORDS SUMMARY | 2022-10-07 18:41 | XMS_ITS | Encounter Summary ---
:1955 Author Organization [facility] [place] [address] Care Team Providers Name Role Phone Derek Torres Primary Care Provider Encounter Details Date Type Department Care Team Description 2021 Notes Only [facility]emat[facility] [address] [place], [place] [phone] Social History Tobacco Use Types Packs/Day Years Used Date Former Smoker Cigarettes 0.25 Quit: 06/2020 Smokeless Tobacco: Never Used Sex Assigned at Date Recorded Not on file documented as of this encounter Progress Notes Julia Morris MSW - 2021 12:17 PM EDT Follow up with pt during her infusion visit today. Pt indicated she is feeling fairly well after a hospitalization for an infection. She still has A nursing visits at home. She is working with a casemanager from the [facility] to be evaluated for the [facility] program as a way to get more care in her home. She has been working on the paperwork for [facility] medicaid. She indicated she will have a phone evaluation for the program this . Pt does well with advocating for herself. Reinforced her efforts. Pt indicated she has a new local PCP also. Pt did not identify any new needs at this time. Offered support. Reminded pt of [employer] availability and contact information. Will follow for support and resources. documented in this encounter Plan of Treatment Upcoming Encounters Date Type Specialty Care Team Description 10/21/2022 Appointment Hematology and Oncology 10/21/2022 Hospital Encounter Radiology Adilene Link, [address] [address] (Wo rk) 10/21/2022 Appointment Radiology Adilene Link[address] [place] [address] (Wo rk) 10/21/2022 Appointment Radiology Adilene Link[address] [place] [address] (Wo rk) 10/25/2022 Office Visit Hematology and Oncology Alberto Guy MD [facility] DR HEMATOLOGY/[place] [address] [address] MEDICAL ONCOLOGY [place], [place] [address] [phone] 11/09/2022 Office Visit Urology Bobo Davis MD [facility] DR UROLOGY [place], [place] [address] (Wo rk) documented as of this encounter Visit Diagnoses Not on filedocumented in this encounter Care Teams Aviation Mechanic Relationship Specialty Start Date End Date Derek Torres PA PCP - General Internal Medicine 04/13/21 06/03/21 Mahnaz [address]LSON [address] [place], [place] [address] documented as of this encounter
--- OUTSIDE RECORDS SUMMARY | 2022-10-07 18:41 | XMS_ITS | Encounter Summary ---
:1955 Author Organization [facility] [place] [address] Care Team Providers Name Role Phone Derek Torres Primary Care Provider Reason for Visit Reason Comments Chemotherapy Cycle 3 Day 1 Carboplatin/Ge mcitabine Treatment/Therapy Plan Authorization (Routine) - Specialty Diagnoses / Procedures Referred By Contact Refer red To Contact Diagnoses Urothelial carcinoma of kidney, right Malignant neoplasm of urinary bladder, unspecified site Neutropenia, drug-induced Alberto Bhatia MD [facility] Hem Onc Office Procedures TC PALONOSETRON HCL, 25MCG, INJECTION (ALOXI) TC APREPITANT, 1 MG, INJECTION [address] HEMATOLOGY/[place] [phone] Fax: Referral ID Status Reason Start Date Expiration Date Visits V isits Requested Authorized [id number] 02/05/2021 12/19/2021 99 99 Encounter Details Date Type Department Care Team Description 2021 Infusion Hematology Oncology at [facility] utropenia, drug-induced; [facility] Urothelial carcinoma of kidn ey, right; [address] [place] [address] Malignant neoplasm of urinar y bladder, unspecified site [place], [place] [phone] Social History Tobacco Use Types Packs/Day Years Used Date Former Smoker Cigarettes 0.25 Quit: 06/2020 Smokeless Tobacco: Never Used Sex Assigned at Date Recorded Not on file documented as of this encounter Progress Notes Ledy Franklin RN - 2021 10:00 AM EDT INFUSION THERAPY ADMINISTRATION NOTES DIAGNOSIS: Urothelial cancer CYCLE #3, Day 1 REASON FOR VISIT: Carbo/Gemzar infusion SUBJECTIVE Nancy offers no complaints. OBJECTIVE LAB DATA: WBC 9.84, HGB 9.0, HCT 29.3, PLT 332, ANC 7.14, BUN 48, Cr 1.5; Seen by Dr. Bhatia prior to visit & cleared for treatment. IV ACCESS: PIV left forearm. Pre administration: Chemotherapy orders independently verified for drug name, route, and dosage per patient's height, weight and BSA by Ledy Franklin, RN & On-site pharmacist. REACTIONS (DESCRIPTION, TIME, INTERVENTION AND EFFECTIVENESS) none ASSESSMENT Nancy was awake and tolerated treatment well. PLAN Return to clinic as scheduled. documented in this encounter Plan of Treatment Upcoming Encounters Date Type Specialty Care Team Description 10/21/2022 Appointment Hematology and Oncology 10/21/2022 Hospital Encounter Radiology Adilene Link[address] ONCOLOGY [place], [place] [phone] (Kwadwo morataya) 10/21/2022 Appointment Radiology Adilene Link[address] MEDICAL ONCOLOGY [place], [place] [address] [phone] (Kwadwo morataya) 10/21/2022 Appointment Radiology Adilene Link[address] ONCOLOGY [place], [place] [address] [phone] (Kwadwo morataya) 10/25/2022 Office Visit Hematology and Oncology Alberto Guy MD [facility] DR HEMATOLOGY/[place] [address] [address] MEDICAL ONCOLOGY [place], [place] [phone] 11/09/2022 Office Visit Urology Bobo Davis MD [facility] [place]OLOGY [place] [address] (Wo rk) documented as of this encounter Visit Diagnoses Diagnosis Neutropenia, drug-induced Drug induced neutropenia Urothelial carcinoma of kidney, right Malignant neoplasm of urinary bladder, u nspecified site documented in this encounter Administered Medications Inactive Administered Medications - up to 3 most recent administrations Medication Order MAR Action Action Date Dose Rate Site aprepitant (CINVANTI) injection Given 2021 10:37 AM EDT 13 0 mg Emul 130 mg 130 mg, Intravenous, ONCE, 1 dose, On Mon04/13/21 at 1045, Alternative administration of IV push over 2 minutes is a recommendation from the credit collections analyst. Administer prior to chemotherapy., Routine CARBOplatin (Paraplatin) 366 mg in New Bag 2021 11:14 AM EDT 366 mg 572 mL/hr dextrose 5% 286.6 mL infusion 366 mg (rounded from 365.5 mg, Target AUC = 5), Intravenous, ONCE, 1 dose, On Mon04/13/21 at 1145, Administer over 30 Minutes, Warning Vesicant/Irritant Medication dexamethasone (Decadron) tablet 10 mg Given 2021 10:33 AM EDT 10 mg 10 mg, Oral, ONCE, 1 dose, On Mon04/13/21 at 1045, Administer prior to chemotherapy, Routine famotidine (Pepcid) (10 mg/mL) injection 20 Given 2021 10:41 AM EDT 20 mg mg 20 mg, Intravenous, ONCE, 1 dose, On Mon04/13/21 at 1045 GEMcitabine 2,000 mg in sodium New Bag 2021 12:00 PM EDT 2,000 mg 605.2 mL/hr chloride 0.9% 302.6 mL infusion 2,000 mg, Intravenous, ONCE, 1 dose, On Mon04/13/21 at 1145, Administer over 30 Minutes, Warning Vesicant/Irritant Medication Dose Ordered = 2050 mg (1000 mg/m2). Pharmacist rounded dose per procedure. palonosetron (Aloxi) (0.25 mg/mL) injection Given 03/27 10:38 AM EDT 0.25 mg 0.25 mg 0.25 mg, Intravenous, ONCE, 1 dose, On Mon04/13/21 at 1045, Administer over 30 seconds. Administer prior to chemotherapy, Routine sodium chloride 0.9% infusion New Bag 2021 10:41 AM EDT 100 mL/hr 100 mL/hr 100 mL/hr, Intravenous, CONTINUOUS, Starting on Mon04/13/21 at 1045, Until Mon04/13/21 at 1439 documented in this encounter Care Teams Wet Washer Machine Relationship Specialty Start Date End Date Derek Torres PA PCP - General Internal Medicine 04/13/21 06/03/21 [address] [place] [address] documented as of this encounter
--- OUTSIDE RECORDS SUMMARY | 2022-10-07 18:41 | XMS_ITS | Encounter Summary ---
:1955 Author Organization [facility] [place] [address] Care Team Providers Name Role Phone Unavailable Primary Care Provider Unavailable Reason for Visit Reason Onset Date Comments Results 04/09/2021 urine Encounter Details Date Type Department Care Team Description 04/09/2021 Telephone Hematology Oncology at Ledy Franklin RN Results (urine) [address] [phone] Social History Tobacco Use Types Packs/Day Years Used Date Former Smoker Cigarettes 0.25 Quit: 06/2020 Smokeless Tobacco: Never Used Sex Assigned at Date Recorded Not on file documented as of this encounter Miscellaneous Notes Telephone Encounter - Ledy Franklin RN - 04/09/2021 3:26 PM EDT Results for NANCY RIVAS ( ) as of 04/09/2021 15:[address] Bhatia via secure chat. Ref. Range 04/09/2021 00:00 Color UA Unknown yellow Appearance UA Unknown clear Spec Gardiner UA Unknown 1.015 pH UA Unknown 5.5 Protein UA Latest Ref Range: H 30 Glucose UA Unknown negative Ketones UA Unknown negative Bilirubin UA Unknown negative Urobilinogen UA Unknown 0.2 Blood UA Latest Ref Range: H moderate Leukocytes UA Latest Ref Range: H Trace Nitrite UA Unknown negative WBC UA Unknown 5-10 RBC UA Latest Ref Range: H 10-20 Casts Unknown negative Bacteria UA Unknown moderate Crystals Unknown negative Other UA Unknown mucus negative Response from Dr. Bhatia: ok. She can continue nitrofurantoin as prescribed. We will see her as scheduled Call to Nancy to let her know above. She agreed and will continue as prescribed. documented in this encounter Plan of Treatment Upcoming Encounters Date Type Specialty Care Team Description 10/21/2022 Appointment Hematology and Oncology 10/21/2022 Hospital Encounter Radiology Adilene Link[address] MEDICAL ONCOLOGY [place], [place] [phone] (Wo rk) 10/21/2022 Appointment Radiology Adilene Link[address] ONCOLOGY [place], [place] [phone] (Wo rk) 10/21/2022 Appointment Radiology Adilene Link[address] MEDICAL ONCOLOGY [place], [place] [phone] (Wo rk) 10/25/2022 Office Visit Hematology and Oncology Alberto Guy MD [facility] DR HEMATOLOGY/[place] [address] [address] MEDICAL ONCOLOGY [place], [place] [phone] 11/09/2022 Office Visit Urology Bobo Davis MD [facility] DR UROLOGY [place], [place] [address] (Wo rk) documented as of this encounter Procedures Procedure Name Priority Date/Time Associated Diagnosis Comme nts URINALYSIS WITH REFLEX Routine 04/09/2021 Resul ts for this CULTURE procedure are i n the results section . documented in this encounter Results Urinalysis with reflex Culture (04/09/2021) [facility] Method Time Signature Color UA yellow Appearance UA clear Spec Gardiner UA 1.015 pH UA 5.5 Protein UA 30 H Glucose UA negative Ketones UA negative Bilirubin UA negative Urobilinogen UA 0.2 Blood UA moderate H Leukocytes UA Trace H Nitrite UA negative WBC UA 5-10 RBC UA 10-20 H Bacteria UA moderate Other UA mucus negative Bacteria UA moderate Crystals negative Casts negative Specimen (Source) Anatomical Location Collection Method / Collectio n Time Received Time / Laterality Volume 04/09/2021 Alberto Bhatia MD URINE ORDERABLES documented in this encounter Visit Diagnoses Not on filedocumented in this encounter
--- OUTSIDE RECORDS SUMMARY | 2022-10-07 18:41 | XMS_ITS | Encounter Summary ---
:1955 Author Organization [facility] [place] [address] Care Team Providers Name Role Phone Derek Torres Primary Care Provider Encounter Details Date Type Department Care Team Description 2021 Office Visit Hematology/Oncology Rah Shelton MD [facility] DR HEMATOLOGY/[place] [address] [facility]; [facility] [address] [place] [address] [place] [address] Metastatic urothelial carcinoma; [facility] [address] Encounter for chemotherapy m anagement; [place], [place] Neutropenia , drug-induced [phone] Social History Tobacco Use Types Packs/Day Years Used Date Former Smoker Cigarettes 0.25 Quit: 06/2020 Smokeless Tobacco: Never Used Sex Assigned at Date Recorded Not on file documented as of this encounter Last Filed Vital Signs Vital Sign Reading Time Taken Comments Blood Pressure 140/59 2021 9:39 AM EDT Pulse 83 2021 9:39 AM EDT Temperature 36.5 ??C (97.7 ??F) 2021 9:39 AM EDT Respiratory Rate 16 2021 9:39 AM EDT Oxygen Saturation 98% 2021 9:39 AM EDT Inhaled Oxygen Concentration - - Weight 93.9 kg (207 lb) 2021 9:39 AM EDT Height 160 cm (5' 2.99) 2021 9:39 AM EDT Body Mass Index 36.68 2021 9:39 AM EDT documented in this encounter Progress Notes Alberto Shelton MD - 2021 9:30 AM EDT Images from the original [...] Lovenox and and antibiotics with ciprofloxacin. INTERVAL history:- Nancy returns to the [facility] today for urothelial carcinoma of rightkidney and third cycle of carboplatin and gemcitabine. She is accompanied by her Derek today. She finished nitrofurantoin yesterday. Burning sensation went away within a couple of days. Todayshe feels well. No fever or chills. She still has muscle pain in her back. PMH: UTI E. coli 100,000 colonies PTSD/depression, diabetes mellitus on insulin, arthritis, , hernia repair x3, anxiety, hysterectomy for urinary incontinence 2 to 3 years ago Social History: 28-lzlc-cygy smoking history, quit 6 months ago, does [...] Antibiotics) Medications: Your Medications Accurate as of 2021 9:52 AM. If you have any questions, [...] a tablet daily. 12.5 mg Refills: 0 STOPPED Medications nitrofurantoin 100 mg Cap Commonly known as: Macrobid Stopped by: ALBERTO SHELTON MD Review of Systems Constitutional: Positive for appetite [...] Thought content normal. Judgment: Judgment normal. BP 140/59 (Patient Position: Sitting) Pulse 83 Temp 36.5 ??C (97.7 ??F) (Temporal) Resp 16 Ht 160 cm (5' 2.99) Wt 93.9 kg (207 lb) SpO2 98% BMI 36.68 kg/m?? Wt Readings from Last 3 Encounters: 04/13/21 93.9 kg (207 lb) 04/06/21 93 kg (205 lb) 03/23/21 93 kg (205 lb) Pathology: 01/22/21 retroperitoneal lymph node biopsy: A. LYMPH NODE, RETROPERITONEUM, CT-GUIDED CORE NEEDLE BIOPSY: - Positive for carcinoma, favor urinary bladder primary, high-grade. See comment. 12/25/2020 urine: High-grade urothelial carcinoma with superimposed abundant degenerative changes Labs: 2021 WBC 9.84, hemoglobin 9, platelet count 332, ANC 7.14, sodium 142, potassium 4.5, BUN48, creatinine 1.5, glucose 172, calcium 9.3, magnesium 1.8, TB 0.3, AST 14, ALT 35, alkaline phosphatase 103, total protein 7.7, albumin 2.8, 04/09/2021 UA [...] right nephroureterectomy. Nancy received 2 cycles of Carbo/Hart. Last treatment was 25weeks ago. She [facility] with CHF exacerbation/pulmonary edema, decompensated diabetes And [...] with restaging PET scan on April 30. # CHF: Follows with Dr. Ebony Beckham, [...] maintenance nitrofurantoin daily #Right hydronephrosis: Creatinine is 1.5, stable Creatinine 1.4-1.7, status post right ureteral stent placement: December 23. PLAN: 1. Carboplatin gemcitabine today 2. Restaging PET scan scheduled 3. Next visit in 1 week with blood work and D8 of gemcitabine. Nancy voiced understanding of the plan [...] Oncology 10/21/2022 Hospital Encounter Radiology Adilene Link[address] [address] (Kwadwo morataya) 10/21/2022 Appointment Radiology Adilene Link[address] [address] (Kwadwo morataya) 10/21/2022 Appointment Radiology Adilene Link[address] [address] (Wo rk) 10/25/2022 Office Visit Hematology and Oncology Alberto Guy MD [facility] DR HEMATOLOGY/[place] [address] [address] MEDICAL ONCOLOGY [place], [place] [address] 11/09/2022 Office Visit Urology Bobo Davis MD [facility] UROLOGY [place], [place] [address] (Wo rk) documented as of this encounter Visit Diagnoses Diagnosis High risk medication use Encounter for long-term (current) use of other medications Metastatic urothelial carcinoma 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
--- OUTSIDE RECORDS SUMMARY | 2022-10-07 18:41 | XMS_ITS | Encounter Summary ---
:1955 Author Organization [facility] [place] [address] Care Team Providers Name Role Phone Derek Torres Primary Care Provider Reason for Visit Reason Comments Chemotherapy Cycle 4, Day 1 - Carboplatin /Gemcitabine Treatment/Therapy Plan Authorization (Routine) - Specialty Diagnoses / Procedures Referred By Contact Refer red To Contact Diagnoses Urothelial carcinoma of kidney, right Malignant neoplasm of urinary bladder, unspecified site Neutropenia, drug-induced Alberto Bhatia MD [facility] Hem Onc Office Procedures TC PALONOSETRON HCL, 25MCG, INJECTION (ALOXI) TC APREPITANT, 1 MG, INJECTION [address] HEMATOLOGY/[place] [phone] Fax: Referral ID Status Reason Start Date Expiration Date Visits V isits Requested Authorized [id number] 02/05/2021 12/19/2021 99 99 Encounter Details Date Type Department Care Team Description 05/04/2021 Infusion Hematology Oncology at [facility] utropenia, drug-induced; [facility] Urothelial carcinoma of kidn ey, right; [address] [place] [address] Malignant neoplasm of urinar y bladder, unspecified site [place], [place] [phone] Social History Tobacco Use Types Packs/Day Years Used Date Former Smoker Cigarettes 0.25 Quit: 06/2020 Smokeless Tobacco: Never Used Sex Assigned at Date Recorded Not on file documented as of this encounter Progress Notes Brittny Rondon RN - 05/04/2021 11:30 AM EDT INFUSION THERAPY ADMINISTRATION NOTES DIAGNOSIS: Urothelial cancer CYCLE #: Cycle 4, Day 1 - Carboplatin/Gemcitabine REASON FOR VISIT: To receive chemotherapy. SUBJECTIVE: Nancy offers no complaints. OBJECTIVE: VSS. Seen by provider. Ready to treat. LAB DATA: WBC - 9.20, H/H - 9.6/30.7, Plt Ct - 446, ANC - 6.6.2, Lytes wnl, BUN/Cr - 41/1.2 IV ACCESS: PIV left forearm. Pre administration: Chemotherapy orders independently verified for drug name, route, and dosage per patient's height, weight and BSA by Brittny Rondon, MORTEZA and Staff Pharmacist(s). REACTIONS (DESCRIPTION, TIME, INTERVENTION AND EFFECTIVENESS) none ASSESSMENT: Nancy was awake and tolerated treatment well. PIV discontinued prior to dismissal. Ice applied to removal site at her request to prevent post infusion discomfort. PLAN: Return to clinic as scheduled. documented in this encounter Plan of Treatment Upcoming Encounters Date Type Specialty Care Team Description 10/21/2022 Appointment Hematology and Oncology 10/21/2022 Hospital Encounter Radiology Adilene Link[address] ONCOLOGY [place], [place] [phone] (Kwadwo morataya) 10/21/2022 Appointment Radiology Adilene Link[address] ONCOLOGY [place], [place] [phone] (Kwadwo rk) 10/21/2022 Appointment Radiology Adilene Link[address] ONCOLOGY [place], [place] [phone] (Kwadwo morataya) 10/25/2022 Office Visit Hematology and Oncology Alberto Guy MD [facility] DR HEMATOLOGY/[place] [address] [address] [place] [address] 11/09/2022 Office Visit Urology Bobo Davis MD [facility] DR UROLOGY [place], [place] [address] (Wo rk) documented as of this encounter Visit Diagnoses Diagnosis Neutropenia, drug-induced Drug induced neutropenia Urothelial carcinoma of kidney, right Malignant neoplasm of urinary bladder, u nspecified site documented in this encounter Administered Medications Inactive Administered Medications - up to 3 most recent administrations Medication Order MAR Action Action Date Dose Rate Site aprepitant (CINVANTI) injection Given 05/04/2021 11:58 AM EDT 13 0 mg Emul 130 mg 130 mg, Intravenous, ONCE, 1 dose, On 05/04/21 at 1145, Alternative administration of IV push over 2 minutes is a recommendation from the crisis worker. Administer prior to chemotherapy., Routine CARBOplatin (Paraplatin) 465 mg in New Bag 05/04/2021 12:37 PM EDT 465 mg 593 mL/hr dextrose 5% 296.5 mL infusion 465 mg (Target AUC = 5), Intravenous, ONCE, 1 dose, On 05/04/21 at 1245, Administer over 30 Minutes, Warning Vesicant/Irritant Medication dexamethasone (Decadron) injection 10 mg Given 05/04/2021 11:59 AM EDT 10 mg 10 mg, Intravenous, ONCE, 1 dose, On 05/04/21 at 1145, Administer prior to chemotherapy famotidine (Pepcid) (10 mg/mL) injection 20 Given 05/04/2021 11:59 AM EDT 20 mg mg 20 mg, Intravenous, ONCE, 1 dose, On 05/04/21 at 1145 GEMcitabine 2,000 mg in sodium New Bag 05/04/2021 1:14 PM EDT 2,000 mg 605.2 mL/hr chloride 0.9% 302.6 mL infusion 2,000 mg, Intravenous, ONCE, 1 dose, On 05/04/21 at 1245, Administer over 30 Minutes, Dose Ordered = 2050 mg (1000 mg/m2). Pharmacist rounded dose per procedure. Warning Vesicant/Irritant Medication palonosetron (Aloxi) (0.25 mg/mL) injection Given 06/2021 11:59 AM EDT 0.25 mg 0.25 mg 0.25 mg, Intravenous, ONCE, 1 dose, On Mon05/04/21 at 1145, Administer over 30 seconds. Administer prior to chemotherapy, Routine sodium chloride 0.9% infusion New Bag 05/04/2021 11:50 AM EDT 100 mL/hr 100 mL/hr 100 mL/hr, Intravenous, CONTINUOUS, Starting on Mon05/04/21 at 1145, Until Mon05/04/21 at 1731 documented in this encounter Care Teams Physics Technical Officer Relationship Specialty Start Date End Date Derek Torres PA PCP - General Internal Medicine 04/13/21 06/03/21 [address] [place] [address] documented as of this encounter
--- OUTSIDE RECORDS SUMMARY | 2022-10-07 18:41 | XMS_ITS | Encounter Summary ---
:1955 Author Organization [facility] [place] [address] Care Team Providers Name Role Phone Derek Torres Primary Care Provider Encounter Details Date Type Department Care Team Description 06/02/2021 Anesthesia Event Same Day at [facility] Billy Malloy MD [facility] [place] [phone] ANESTHESIOLOGY DEPT [phone] [place], [place] [address] (Wo rk) Anesthesia Record Procedure Summary Procedure Name Responsible Anesthesiologist Anesthesia Start Ti me Anesthesia Stop Time OFFICE VISIT Events No events on file. No medications on file. Agents No agents on file. Blood No blood administrations on file. Lines, Drains, and Airways No LDAs on file. documented in this encounter Social History Tobacco Use Types Packs/Day Years Used Date Former Smoker Cigarettes 0.25 0 Quit: 06/2020 Smokeless Tobacco: Never Used Alcohol Use Standard Drinks/Week Comments Not Currently 0 (1 standard drink = 0.6 oz pure alcoho l) Sex Assigned at Date Recorded Not on file documented as of this encounter OR Notes Anesthesia Preprocedure Evaluation - Uli Conley MD - 06/02/2021 1:55 PM EDT Pre-Anesthesia Evaluation for: Nancy Pichardo a [...] was 7.8% at diagnosis) -recent admission at [facility] ICU on 10/26/10 for DKA [...] PM Kellee Jaime RN Anesthesia Plan: ASA 4 general, Informed Consent: Anesthesia Screening Note: Date and Time of [...] echo (or potentially a stress test) at [facility] for CHF exacerbation work-up. She was diuresed and transfused with blood for anemia (has been anemic since chemo). These records were requested from [facility]. We have no cardiac work-up on file on [facility]. Her exercise tolerance is reasonable so long [...] issue, though we have no records on [facility]. Patient consented for anesthesia including potential regional block, questions were answered, she was counseled about risks. Labs were drawn today in clinic, echocardiogram requested from [facility]. -Billy Malloy PGY4 anesthesiology Addendum: Results of 03/22/2021 ECHO Imagin03/22/2021 echocardiogram normal LV segmental wall motion. The left ventricular diastolic function isnormal. LVEF is 55%, small circumferential pericardial effusion without evidence of tamponade. documented in this encounter Plan of Treatment Upcoming Encounters Date Type Specialty Care Team Description 10/21/2022 Appointment Hematology and Oncology 10/21/2022 Hospital Encounter Radiology Adilene Link[address] MEDICAL ONCOLOGY [place], [place] [address] [phone] (Wo rk) 10/21/2022 Appointment Radiology Adilene Link[address] [place] [address] (Wo rk) 10/21/2022 Appointment Radiology Adilene Link[address] [place] [address] (Wo rk) 10/25/2022 Office Visit Hematology and Oncology Alberto Guy MD [facility] DR HEMATOLOGY/[place] [address] [address] MEDICAL ONCOLOGY [place], [place] [address] 11/09/2022 Office Visit Urology Bobo Davis MD [facility] UROLOGY [place], [place] [address] (Wo rk) documented as of this encounter Visit Diagnoses Not on filedocumented in this encounter Care Teams Assistant Manager Quality Management Relationship Specialty Start Date End Date Derek Torres PA PCP - General Internal Medicine 04/13/21 06/03/21 [address] [place], [place] [address] documented as of this encounter
--- OUTSIDE RECORDS SUMMARY | 2022-10-07 18:41 | XMS_ITS | Encounter Summary ---
:1955 Author Organization [facility] [place] [address] Care Team Providers Name Role Phone Derek Torres Primary Care Provider Reason for Visit Reason Onset Date Comments Other 05/19/2021 11 lb weight gain Encounter Details Date Type Department Care Team Description 05/19/2021 Telephone Hematology/Oncology at Barb Dennis RN Other (11 lb weight [facility] gain) [address] [place] [phone] Social History Tobacco Use Types Packs/Day Years Used Date Former Smoker Cigarettes 0.25 Quit: 06/2020 Smokeless Tobacco: Never Used Sex Assigned at Date Recorded Not on file documented as of this encounter Miscellaneous Notes Telephone Encounter - Barb Dennis RN - 05/19/2021 10:52 AM EDT Pt calls today stating she has 11 lb weight gain in 2 weeks. [facility]NA nurse there and says ankles are 4 plus edema even with elevation. She has ongoing epigastric pain 10 out of 10, tums helps at times but anything she eats bothers her. She states she was like this prior to her last admission for CHF. Instructed her to go to [facility] ER. She prefers [facility]. VNA RN Manjula will contact PCP to give them heads up. [facility] ER called to let them know she was coming. By the time I contacted them she had arrived. Dr. Bhatia notified. documented in this encounter Plan of Treatment Upcoming Encounters Date Type Specialty Care Team Description 10/21/2022 Appointment Hematology and Oncology 10/21/2022 Hospital Encounter Radiology Adilene Link[address] [place] [address] (Wo rk) 10/21/2022 Appointment Radiology Adilene Link[address] [place] [address] (Wo rk) 10/21/2022 Appointment Radiology Adilene Link[address] [place] [address] (Wo rk) 10/25/2022 Office Visit Hematology and Oncology Alberto Guy MD [facility] DR HEMATOLOGY/[place] [address] [address] MEDICAL ONCOLOGY [place], [place] [address] 11/09/2022 Office Visit Urology Bobo Davis MD [facility] DR UROLOGY [place], [place] [address] (Wo rk) documented as of this encounter Visit Diagnoses Not on filedocumented in this encounter Care Teams Signaling Design Engineer Relationship Specialty Start Date End Date Derek Torres PA PCP - General Internal Medicine 04/13/21 06/03/21 [address] [place], [place] [address] documented as of this encounter
--- OUTSIDE RECORDS SUMMARY | 2022-10-07 18:41 | XMS_ITS | Encounter Summary ---
:[address] [facility] [place] [address] Care Team Providers Name Role Phone Unavailable Primary Care Provider Unavailable Encounter Details Date Type Department Care Team Description 03/21/2021 Ancillary Procedure Radiology Library at [facility], Francisco Javier Duenas [facility] [place] [address] VASCULAR SURGERY [phone] [place], [place] [address] (Wo rk) Social History Tobacco Use Types Packs/Day Years Used Date Former Smoker Cigarettes 0.25 Quit: 06/2020 Smokeless Tobacco: Never Used Sex Assigned at Date Recorded Not on file documented as of this encounter Plan of Treatment Upcoming Encounters Date Type Specialty Care Team Description 10/21/2022 Appointment Hematology and Oncology 10/21/2022 Hospital Encounter Radiology Adilene Link [address] MEDICAL ONCOLOGY [place], [place] [phone] (Wo rk) 10/21/2022 Appointment Radiology Adilene Link [address] MEDICAL ONCOLOGY [place], [place] [phone] (Wo rk) 10/21/2022 Appointment Radiology Adilene Link [address] MEDICAL ONCOLOGY [place], [place] [phone] (Wo rk) 10/25/2022 Office Visit Hematology and Oncology Alberto Guy MD [facility] DR HEMATOLOGY/[place] [address] Adilene Link, AUTOMOTIVE SERVICE PROFESSIONAL[address] [place] [address] 11/09/2022 Office Visit Urology Bobo Davis MD [facility] UROLOGY [place], [place] [address] (Wo rk) documented as of this encounter Procedures Procedure Name Priority Date/Time Associated Comments Diagnosis FILM LIBRARY STORAGE Routine 03/21/2021 12:00 AM Results for this ONLY ULTRASOUND EDT procedure ar e in STUDY the results section. documented in this encounter Results Film Library- Storage Only Ultrasound Study (03/21/2021 12:00 AM EDT) Specimen (Source) Anatomical Location Collection Method / Collectio n Time Received Time / Laterality Volume Narrative LAISHA LA - 03/22/2021 12:52 PM EDT This exam is auto-finalizing. It's purpo se is for storage only. Wilfredo Aragon MD IMG FILM LIBRARY ORDERABLES Performing Organization Address City/State/ZIP Code Phon e Number BESSIE [place], [place] documented in this encounter Visit Diagnoses Not on filedocumented in this encounter
--- OUTSIDE RECORDS SUMMARY | 2022-10-07 18:41 | XMS_ITS | Encounter Summary ---
:1955 Author Organization [facility] [place] [address] Care Team Providers Name Role Phone Derek Torres Primary Care Provider Encounter Details Date Type Department Care Team Description 04/23/2021 Orders Only Hematology/Oncology Adilene Link, [place] static urothelial at [facility] PLANISHING PRESS OPERATOR[address] [place] [address] [place], [place] [phone] (Wo rk) Social History Tobacco Use Types Packs/Day Years Used Date Former Smoker Cigarettes 0.25 Quit: 06/2020 Smokeless Tobacco: Never Used Sex Assigned at Date Recorded Not on file documented as of this encounter Plan of Treatment Upcoming Encounters Date Type Specialty Care Team Description 10/21/2022 Appointment Hematology and Oncology 10/21/2022 Hospital Encounter Radiology Adilene Link[address] MEDICAL ONCOLOGY [place], [place] [phone] (Wo rk) 10/21/2022 Appointment Radiology Adilene Link[address] MEDICAL ONCOLOGY [place], [place] [phone] (Wo rk) 10/21/2022 Appointment Radiology Adilene Link[address] MEDICAL ONCOLOGY [place], [place] [phone] (Wo rk) 10/25/2022 Office Visit Hematology and Oncology Alberto Guy MD [facility] DR HEMATOLOGY/[place] [address] Adilene Link, [address] MEDICAL ONCOLOGY [place], [place] [address] 11/09/2022 Office Visit Urology Bobo Davis MD [facility] DR UROLOGY [place], [place] [address] (Wo rk) documented as of this encounter Visit Diagnoses Diagnosis Metastatic urothelial carcinoma 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
--- OUTSIDE RECORDS SUMMARY | 2022-10-07 18:41 | XMS_ITS | Encounter Summary ---
:1955 Author Organization [place] [address] Care Team Providers Name Role Phone Derek Torres Primary Care Provider Encounter Details Date Type Department Care Team Description 05/03/2021 Telephone Hematology and Oncology at Alberto Montaño MD [facility] Dennis fernández HEMATOLOGY/[place] [address] [place] [address] [phone] (Wo rk) Social History Tobacco Use Types Packs/Day Years Used Date Former Smoker Cigarettes 0.25 Quit: 06/2020 Smokeless Tobacco: Never Used Sex Assigned at Date Recorded Not on file documented as of this encounter Miscellaneous Notes Telephone Encounter - Alberto Bhatia MD - 05/03/2021 1:08 PM EDT I called Mrs. Pichardo regarding the results of her PET scan and left the message documented in this encounter Plan of Treatment Upcoming Encounters Date Type Specialty Care Team Description 10/21/2022 Appointment Hematology and Oncology 10/21/2022 Hospital Encounter Radiology Aidlene Link, [address] [place] [address] (Wo rk) 10/21/2022 Appointment Radiology Nikolay, Adilene [address] MEDICAL ONCOLOGY [place], [place] [address] (Wo rk) 10/21/2022 Appointment Radiology Adilene Link, [address] ONCOLOGY [facility], [place] [address] (Wo rk) 10/25/2022 Office Visit Hematology and Oncology Alberto Guy MD [facility] DR HEMATOLOGY/[place] [address] ONCOLOGY [place], [place] [phone] 11/09/2022 Office Visit Urology Bobo Davis MD [facility] UROLOGY [place], [place] [address] (Wo rk) documented as of this encounter Visit Diagnoses Not on filedocumented in this encounter Care Teams Salesperson Men'S Hats Relationship Specialty Start Date End Date Derek Torres PA PCP - General Internal Medicine 04/13/21 06/03/21 Mahnaz [address]LS[address] [place], [place] [phone] documented as of this encounter
--- OUTSIDE RECORDS SUMMARY | 2022-10-07 18:41 | XMS_ITS | Encounter Summary ---
:1955 Author Organization [facility] [place] [address] Care Team Providers Name Role Phone Unavailable Primary Care Provider Unavailable Reason for Visit Reason Onset Date Comments Leg Swelling 03/19/2021 Peripheral Neuropathy 03/19/2021 Encounter Details Date Type Department Care Team Description 03/19/2021 Telephone Hematology Oncology at Ledy Franklin, Leg Swelling; [facility] RN Peripheral Neuropathy [address] [place] [phone] Social History Tobacco Use Types Packs/Day Years Used Date Former Smoker Cigarettes 0.25 Quit: 06/2020 Smokeless Tobacco: Never Used Sex Assigned at Date Recorded Not on file documented as of this encounter Miscellaneous Notes Telephone Encounter - Ledy Franklin, RN - 03/19/2021 10:44 AM EDT Manjula the nurse from [facility] is in the home with Nancy and is concerned that her BLE edema is getting worse 3+ up to above ankles and 1-2+ up to knees. PN getting worse and rising above knees. Her o2 sats are only 90% today (normally 96%), lungs are clear. She still have redness and hardening at the PIV site from chemo. Left arm AC petechiae. She is still taking her ABX prescribed on . Nofevers. Nancy is very concerned she is loosing her mobility. She is ok with making a trip to the local ED today Above msg sent to Bela Link APRN. No word back when Manjula called the second time. RN advised pt be evaluated at local ED. Manjula will let pt know. She will go to [facility] ED, last visit note sent via fax. Will update DELBERT and with this note. Will F/U throughout the day. documented in this encounter Plan of Treatment Upcoming Encounters Date Type Specialty Care Team Description 10/21/2022 Appointment Hematology and Oncology 10/21/2022 Hospital Encounter Radiology Adilene Link[address] MEDICAL ONCOLOGY [place], [place] [phone] (Wo rk) 10/21/2022 Appointment Radiology Adilene Lnik[address] MEDICAL ONCOLOGY [place], [place] [address] (Wo rk) 10/21/2022 Appointment Radiology Adilene Link[address] MEDICAL ONCOLOGY [place], [place] [phone] (Wo rk) 10/25/2022 Office Visit Hematology and Oncology Alberto Guy MD [facility] DR HEMATOLOGY/[place] [address] [address] MEDICAL ONCOLOGY [place], [place] [phone] 11/09/2022 Office Visit Urology Bobo Davis MD [facility] DR UROLOGY [place], [place] [address] (Wo rk) documented as of this encounter Visit Diagnoses Not on filedocumented in this encounter
--- OUTSIDE RECORDS SUMMARY | 2022-10-07 18:41 | XMS_ITS | Encounter Summary ---
:1955 Author Organization [facility] [place] [address] Care Team Providers Name Role Phone Derek Torres Primary Care Provider Reason for Visit Reason Comments Chemotherapy Gemzar, Cycle 4, Day 8 Treatment/Therapy Plan Authorization (Routine) - Specialty Diagnoses / Procedures Referred By Contact Refer red To Contact Diagnoses Urothelial carcinoma of kidney, right Malignant neoplasm of urinary bladder, unspecified site Neutropenia, drug-induced Alberto Bhatia MD [facility] Hem Onc Office Procedures TC PALONOSETRON HCL, 25MCG, INJECTION (ALOXI) TC APREPITANT, 1 MG, INJECTION [address] HEMATOLOGY/[place] [phone] Fax: Referral ID Status Reason Start Date Expiration Date Visits V isits Requested Authorized [id number] 02/05/2021 12/19/2021 99 99 Encounter Details Date Type Department Care Team Description 05/11/2021 Infusion Hematology Oncology at [facility] utropenia, drug-induced; [facility] Urothelial carcinoma of kidn ey, right; [address] [place] [address] Malignant neoplasm of urinar y bladder, unspecified site [place], [place] [phone] Social History Tobacco Use Types Packs/Day Years Used Date Former Smoker Cigarettes 0.25 Quit: 06/2020 Smokeless Tobacco: Never Used Sex Assigned at Date Recorded Not on file documented as of this encounter Progress Notes Tiana Harris RN - 05/11/2021 11:30 AM EDT INFUSION THERAPY ADMINISTRATION NOTES DIAGNOSIS: Urothelial cancer CYCLE #4, Day 8 REASON FOR VISIT: Gemzar infusion; [...] well. On-Pro applied to right arm at 1240. PLAN Remove On-Pro device tomorrow 05/12/21 @ 1640. Return to clinic as scheduled. documented in this encounter Plan of Treatment Upcoming Encounters Date Type Specialty Care Team Description 10/21/2022 Appointment Hematology and Oncology 10/21/2022 Hospital Encounter Radiology Adilene Link[address] MEDICAL ONCOLOGY [place], [place] [phone] (Kwadwo morataya) 10/21/2022 Appointment Radiology Adilene Link[address] [place] [address] (Kwadwo morataya) 10/21/2022 Appointment Radiology Adilene Link[address] [place] [address] (wKadwo morataya) 10/25/2022 Office Visit Hematology and Oncology Alberto Guy MD [facility] DR HEMATOLOGY/[place] [address] [address] Link[address] MEDICAL ONCOLOGY [place], [place] [address] [phone] 11/09/2022 Office Visit Urology Bobo Davis MD [facility] DR UROLOGY [place], [place] [address] (Wo rk) documented as of this encounter Visit Diagnoses Diagnosis Neutropenia, drug-induced Drug induced neutropenia Urothelial carcinoma of kidney, right Malignant neoplasm of urinary bladder, u nspecified site documented in this encounter Administered Medications Inactive Administered Medications - up to 3 most recent administrations Medication Order MAR Action Action Date Dose Rate Site famotidine (Pepcid) (10 mg/mL) Given 05/11/2021 12:15 PM EDT 20 mg injection 20 mg 20 mg, Intravenous, ONCE, 1 dose, On Mon05/11/21 at 1230 GEMcitabine 2,000 mg in sodium New Bag 05/11/2021 12:36 PM EDT 2,000 mg 605.2 mL/hr chloride 0.9% 302.6 mL infusion 2,000 mg, Intravenous, ONCE, 1 dose, On Mon05/11/21 at 1315, Administer over 30 Minutes, Dose Ordered = 2050 mg (1000 mg/m2). Pharmacist rounded dose per procedure. Warning Vesicant/Irritant Medication ondansetron (Zofran) tablet 8 mg Given 05/11/2021 12:14 PM EDT 8 mg 8 mg, Oral, ONCE, 1 dose, On Mon05/11/21 at 1230, Administer prior to chemotherapy, Routine pegfilgrastim (Neulasta Onpro) (6 Given 05/11/2021 12:40 PM EDT 6 mg Left Arm mg/0.6 mL) injection kit 6 mg 6 mg, Subcutaneous, ONCE, 1 dose, On Mon05/11/21 at 1230, Allow the prefilled syringe co-packaged with the on-body injector to reach room temperature at least 30 minutes prior to administration., Routine, This agent is restricted to outpatient use. Is this drug being given as an outpatient? Yes sodium chloride 0.9% infusion New Bag 05/11/2021 12:15 PM EDT 100 mL/hr 100 mL/hr 100 mL/hr, Intravenous, CONTINUOUS, Starting on Mon05/11/21 at 1230, Until Mon05/11/21 at 1524 documented in this encounter Care Teams Internet Researcher Relationship Specialty Start Date End Date Derek Torres PA PCP - General Internal Medicine 04/13/21 06/03/21 [address] [place] [address] documented as of this encounter
--- OUTSIDE RECORDS SUMMARY | 2022-10-07 18:41 | XMS_ITS | Encounter Summary ---
:1955 Author Organization [facility] [place] [address] Care Team Providers Name Role Phone Unavailable Primary Care Provider Unavailable Encounter Details Date Type Department Care Team Description 03/16/2021 Office Visit Hematology/Oncology Rah Shelton MD [facility] DR HEMATOLOGY/[place] [address] [facility] [address] [place] [address] [place] [address] [place] [phone] Social History Tobacco Use Types Packs/Day Years Used Date Former Smoker Cigarettes 0.25 Quit: 06/2020 Smokeless Tobacco: Never Used Sex Assigned at Date Recorded Not on file documented as of this encounter Last Filed Vital Signs Vital Sign Reading Time Taken Comments Blood Pressure 117/61 03/16/2021 9:07 AM EDT Pulse 95 03/16/2021 9:07 AM EDT Temperature 36.6 ??C (97.9 ??F) 03/16/2021 9:07 AM EDT Respiratory Rate 20 03/16/2021 9:07 AM EDT Oxygen Saturation 98% 03/16/2021 9:07 AM EDT Inhaled Oxygen Concentration - - Weight 95.6 kg (210 lb 12.8 oz) 03/16/2021 9:07 AM EDT Height 160 cm (5' 2.99) 03/16/2021 9:07 AM EDT Body Mass Index 37.35 03/16/2021 9:07 AM EDT documented in this encounter Progress Notes Adilene Link, PHARMACIST CRITICAL CARE - 03/16/2021 9:15 AM EDT Images from the original note were not included. Encounter Diagnosis Name Primary? Local skin infection Patient Active Problem List Diagnosis Code ??? [...] retroperitoneal lymph nodes on January 22 at [facility]. Pathology is pending. PET scan demonstrated increased FDG uptake at the sites of urothelial thickening in the right renal pelvis and enlarged avid right para-aortic lymph nodes. Nancy complains on low energy level, difficulties sleeping and right flank discomfort.Creatinine went up to 1.7 on December 30 from baseline creatinine of 0.5 in October 2019. INTERVAL HPI/Subjective(03/16/21):- Nancy returns to the [facility] today with complaints of swelling in her legs and bumps on her arm. She is accompanied by her Derek today. She is currently on treatment for urothelial cancer. She is very fatigued and complains of muscle pains that were worse 3-4 days after treatment last week. She still has some mild soreness. . She [...] sites. No drainage from sites. No other focal complaints today. She has also developed more edema in her LE. She does have some SOB with ambulation. PMH: No interval changes since last visit PTSD/depression, diabetes mellitus on insulin, arthritis, , hernia repair x3, anxiety, hysterectomy for urinary incontinence 2 to 3 years ago Social History: 01-wuvn-bryd smoking history, quit 6 months ago, does [...] Medications: Your Medications Accurate as of March 16, 2021 12:10 PM. If you have any questions, ask your nurse or doctor. New Medications Dose Details ciprofloxacin 250 mg Tab Commonly known as: Cipro Take 1 tablet by mouth 2 times daily. Started by: ALBERTO SHELTON MD 250 mg Quantity: 10 tablet Refills: 0 Continued medications, unchanged Dose [...] Generic drug: flash glucose sensor Refills: 0 humaLOG Dejon Inpn Generic drug: insulin lispro Refills: 0 hydroCHLOROthiazide 12.5 mg Tab Commonly [...] 8 mg Quantity: 20 tablet Refills: 3 polyethylene glycoL 17 gram Pwpk Commonly known as: Miralax MIX ONE PACKET IN LIQUID ONCE DAILY NEEDED Refills: 0 prochlorperazine 10 mg Tab Commonly known as: Compazine Take 1 tablet by mouth every 6 hours as needed for Nausea. 10 mg Quantity: 30 tablet Refills: 2 senna 8.6 mg Tab Commonly known as: [...] Thought content normal. Judgment: Judgment normal. BP 117/61 (Patient Position: Sitting) Pulse 95 Temp 36.6 ??C (97.9 ??F) (Bladder) Resp 20 Ht160 cm (5' 2.99) Wt 95.6 kg (210 lb 12.8 oz) SpO2 98% BMI 37.35 kg/m?? Wt Readings from Last 3 Encounters: 03/16/21 95.6 kg (210 lb 12.8 oz) 03/09/21 93 kg (205 lb) 03/02/21 92.5 kg (204 lb) Pathology: 01/22/21 retroperitoneal lymph node biopsy: A. LYMPH NODE, RETROPERITONEUM, CT-GUIDED CORE NEEDLE BIOPSY: - Positive for carcinoma, favor urinary bladder primary, high-grade. See comment. 12/25/2020 urine: High-grade urothelial carcinoma with superimposed abundant degenerative changes Labs: 03/16/21- WBC-32.39 Hgb/Hct-8.2/26.2 Plt-101 Na-142 K+-5.0 BUN/cr-36/1.4 [...] WBC 10.4, hemoglobin 12.2, platelet count 347, Imagin02/09/21-CT abdomen and pelvis- Impression- Heart: Mild increase [...] discuss surgical option particularly right nephroureterectomy. Nancy returns today post C2D8 Carbo/[place]. She is having some LE edema, constipation, appetite changesand gastric reflux.No fevers or chills. # LE edema- compression hose. Keep legs elevated when sitting. # Gastric reflux/burning- Continue omeprazole, TUMS or Pepcid. Try taking prochlorperazine on Day 2,3 and 4 after treatment. # Skin bumps- possible infected venipuncture sites- give prescription for 5 days of Cipro 250mg every 12 hours. Wash skin with antibacterial soap. #Right hydronephrosis: Creatinine is 1.4, stable Creatinine 1.4-1.7, status post right ureteral stent placement: December 23. PLAN: 1. Proceed with Gemcitabine 1,000 mg/m 2/Carboplatin in one week as scheduled with neulasta support. 2. Pepcid IV with treatments. Continue omeprazole 20mg po at HS. May continue to use TUMS during theday as needed. Try using prochlorperazine on Day 2-4. 3. Continue Miralax at HS. Continue Senekot 2 tabs twice a day - try not to use Fleet enemas. 2. Next visit in 1 week with blood work and third cycle of [...] Oncology 10/21/2022 Hospital Encounter Radiology Adilene Link[address] MEDICAL ONCOLOGY [place], [place] [phone] (Kwadwo rk) 10/21/2022 Appointment Radiology Adilene Link[address] MEDICAL ONCOLOGY [place], [place] [address] [phone] (Kwadwo rk) 10/21/2022 Appointment Radiology Adilene Link[address] [place] [address] (Kwadwo rk) 10/25/2022 Office Visit Hematology and Oncology Alberto Guy MD [facility] DR HEMATOLOGY/[place] [address] MEDICAL ONCOLOGY [place], [place] [address] [phone] 11/09/2022 Office Visit Urology Bobo Davis MD [facility] UROLOGY [place], [place] [address] (Wo rk) documented as of this encounter Visit Diagnoses Diagnosis Local skin infection Unspecified local infection of skin and subcutaneous tissue documented in this encounter
--- OUTSIDE RECORDS SUMMARY | 2022-10-07 18:41 | XMS_ITS | Encounter Summary ---
:1955 Author Organization [facility] [place] [address] Care Team Providers Name Role Phone Derek Torres Primary Care Provider Reason for Visit Reason Onset Date Comments Other 04/23/2021 burning on urination Encounter Details Date Type Department Care Team Description 04/23/2021 Telephone Hematology/Oncology at Barb Dennis RN Other (burning on [facility] urination) [address] [place] [phone] Social History Tobacco Use Types Packs/Day Years Used Date Former Smoker Cigarettes 0.25 Quit: 06/2020 Smokeless Tobacco: Never Used Sex Assigned at Date Recorded Not on file documented as of this encounter Miscellaneous Notes Telephone Encounter - Barb Dennis RN - 04/23/2021 10:09 AM EDT TRIAGE CALL Subjective: burning on urination Joshi questions/Assessment: Pt calls and states it started last night burning again when she urinates Plan: Pt is off macrodantin as her LFTs were up and Adilene Link PASTING MACHINE OPERATOR unsure if from gemzar or macrodantin, so it was stopped. Adilene want pt to take cipro 250 mg tab twice a day for now and will evaluateher on April 28. Name of Guideline/Protocol Used: Adilene Link NP Home Care/Patient Education per Protocol/Guideline: yes Patient/Responsible constitution party voices an understanding of advice? yes Patient/Responsible constitution party intends to comply with action/disposition: yes Reference used: Adilene link PASTING MACHINE OPERATOR documented in this encounter Plan of Treatment Upcoming Encounters Date Type Specialty Care Team Description 10/21/2022 Appointment Hematology and Oncology 10/21/2022 Hospital Encounter Radiology Adilene Link[address] [place] [address] (Wo rk) 10/21/2022 Appointment Radiology Adilene Link[address] [place] [address] (Wo rk) 10/21/2022 Appointment Radiology Adilene Link[address] [place] [address] (Wo rk) 10/25/2022 Office Visit Hematology and Oncology Alberto Guy MD [facility] DR HEMATOLOGY/[place] [address] [address] MEDICAL ONCOLOGY [place], [place] [phone] 11/09/2022 Office Visit Urology Bobo Davis MD [facility] DR UROLOGY [place], [place] [address] (Wo rk) documented as of this encounter Visit Diagnoses Not on filedocumented in this encounter Care Teams Business Office Manager Relationship Specialty Start Date End Date Derek Torres PA PCP - General Internal Medicine 04/13/21 06/03/21 Mahnaz [address] [place], [place] [address] documented as of this encounter
--- OUTSIDE RECORDS SUMMARY | 2022-10-07 18:41 | XMS_ITS | Encounter Summary ---
:1955 Author Organization [facility] Address [facility] [place] [address] Care Team Providers Name Role Phone Unavailable Primary Care Provider Unavailable Reason for Visit - Closed Specialty Diagnoses / Procedures Referred By Contact Refer red To Contact Procedures Zenon Lozoya MD Film Library- Storage Only CT [address] [place] [phone] Referral ID Status Reason Start Date Expiration Date Visits Requ ested Visits Authorized [id number] Closed 03/19/2021 03/19/2022 1 1 Encounter Details Date Type Department Care Team Description 03/19/2021 Ancillary Procedure Radiology Library at Lakhwinder Lozoya [facility] [address] [place] [phone] Social History Tobacco Use Types Packs/Day Years Used Date Former Smoker Cigarettes 0.25 Quit: 06/2020 Smokeless Tobacco: Never Used Sex Assigned at Date Recorded Not on file documented as of this encounter Plan of Treatment Upcoming Encounters Date Type Specialty Care Team Description 10/21/2022 Appointment Hematology and Oncology 10/21/2022 Hospital Encounter Radiology Adielne Link [address] MEDICAL ONCOLOGY [place], [place] [phone] (Wo rk) 10/21/2022 Appointment Radiology Adilene Link [address] MEDICAL ONCOLOGY [place], [place] [phone] (Wo rk) 10/21/2022 Appointment Radiology Adilene Link, [address] MEDICAL ONCOLOGY [place], [place] [phone] (Wo rk) 10/25/2022 Office Visit Hematology and Oncology Alberto Guy MD [facility] DR HEMATOLOGY/[place] [address] MEDICAL ONCOLOGY [place], [place] [phone] 11/09/2022 Office Visit Urology Bobo Davis MD [facility] UROLOGY [place], [place] [address] (Wo rk) documented as of this encounter Procedures Procedure Name Priority Date/Time Associated Diagnosis Comme nts FILM LIBRARY Routine 03/19/2021 5:27 PM Results f or this STORAGE ONLY CT EDT procedure ar e in CHEST the results section. documented in this encounter Results Film Library- Storage Only CT Chest (03/19/2021 5:27 PM EDT) Specimen (Source) Anatomical Location Collection Method / Collectio n Time Received Time / Laterality Volume Narrative DH RAD - 03/19/2021 5:27 PM EDT This exam is auto-finalizing. It's purpo se is for storage only. Zenon Lozoya MD IMG FILM LIBRARY ORDERABLES Performing Organization Address City/State/ZIP Code Phon e Number RAD [place], [place] documented in this encounter Visit Diagnoses Not on filedocumented in this encounter
--- OUTSIDE RECORDS SUMMARY | 2022-10-07 18:41 | XMS_ITS | Encounter Summary ---
:1955 Author Organization [facility] [place] [address] Care Team Providers Name Role Phone Unavailable Primary Care Provider Unavailable Reason for Referral Diagnostic Test (Routine) - Closed Specialty Diagnoses / Procedures Referred By Contact Refer red To Contact Radiology Diagnoses Urothelial carcinoma of kidney, right Metastatic urothelial carcinoma Alberto Shelton MD [facility] Rad Nuclear Med Procedures NM PET CT Skull Base to Mid-thigh [facility] HEMATOLOGY/[place] [address] [place] [address] Referral ID Status Reason Start Date Expiration Date Visits V isits Requested Authorized [id number] Closed Specialty 04/06/2021 10/07/2022 1 1 Service Requested Reason for Visit Reason Comments Follow-up Encounter Details Date Type Department Care Team Description 04/06/2021 Office Visit Hematology/Oncology Rah Shelton MD [facility] HEMATOLOGY/[place] [address] Metastatic urothelial carcinoma (Primary Dx[facility] [address] [place] [address] [place] [address] Urothelial carcinoma of kidney, right; [address] [place] [address] High risk medication use; [place], [place] Encounter f or chemotherapy management [id number] Social History Tobacco Use Types Packs/Day Years Used Date Former Smoker Cigarettes 0.25 Quit: 06/2020 Smokeless Tobacco: Never Used Sex Assigned at Date Recorded Not on file documented as of this encounter Last Filed Vital Signs Vital Sign Reading Time Taken Comments Blood Pressure 179/59 04/06/2021 11:10 AM EDT Pulse 96 04/06/2021 11:10 AM EDT Temperature 36.5 ??C (97.7 ??F) 04/06/2021 11:10 AM EDT Respiratory Rate 16 04/06/2021 11:10 AM EDT Oxygen Saturation 99% 04/06/2021 11:10 AM EDT Inhaled Oxygen Concentration - - Weight 93 kg (205 lb) 04/06/2021 11:10 AM EDT Height 160 cm (5' 2.99) 04/06/2021 11:10 AM EDT Body Mass Index 36.32 04/06/2021 11:10 AM EDT documented in this encounter Progress Notes Alberto Shelton MD - 04/06/2021 10:30 AM EDT Images from the original [...] incontinence R32 ??? Neutropenia, drug-induced D70.2 HPI:Nancy Mock Pichardo is 65 y.o. F referred by [...] retroperitoneal lymph nodes on January [address] [facility]. Pathology is pending. PET scan [...] ciprofloxacin. INTERVAL history:- Nancy returns to the [facility] today for urothelial carcinoma of rightkidney and third cycle of carboplatin and gemcitabine. She is accompanied by her Derek today. She finished ciprofloxacin for phlebitis on April 01. Developed intense burning sensation with urination on April 02. UA from April 05 revealed 100,000 gram-negative rods. Sensitivity test pending. . She is complaining on pain in the right side of chest under her right scapula. She does have some SOB with ambulation. Nancy was seen by boat person and had stress test on April 01. PMH: No interval changes since last visit PTSD/depression, diabetes mellitus on insulin, arthritis, , hernia repair x3, anxiety, hysterectomy for urinary incontinence 2 to 3 years ago Social History: 71-[id number]-[id number] smoking history, quit 6 months ago, does [...] Medications: Your Medications Accurate as of April 06, 2021 11:23 AM. If you have any questions, ask [...] daily. 12.5 mg Refills: 0 STOPPED Medications ciprofloxacin 250 mg Tab Commonly known as: Cipro Stopped by: ALBERTO SHELTON MD Review of [...] Thought content normal. Judgment: Judgment normal. BP 179/59 (Patient Position: Sitting) Pulse 96 Temp 36.5 ??C (97.7 ??F) (Temporal) Resp 16 Ht 160 cm (5' 2.99) Wt 93 kg (205 lb) SpO2 99% BMI 36.32 kg/m?? Wt Readings from Last 3 Encounters: 04/06/21 93 kg (205 lb) 03/23/21 93 kg (205 lb) 03/16/21 95.6 kg (210 lb 12.8 oz) Pathology: 01/22/21 retroperitoneal lymph node biopsy: A. LYMPH NODE, RETROPERITONEUM, CT-GUIDED CORE NEEDLE BIOPSY: - Positive for carcinoma, favor urinary bladder primary, high-grade. See comment. 12/25/2020 urine: High-grade urothelial carcinoma with superimposed abundant degenerative changes Labs: 04/06/2021 WBC 13.24, hemoglobin 9, platelet count [...] right nephroureterectomy. Nancy received 2 cycles of Carbo/Natrona. Last treatment was 2 weeks ago. She was admitted to [facility] with CHF exacerbation/pulmonary edema, decompensated diabetes And [...] until we decide on continuation of chemo. 04/06/21 urine culture demonstrates more than 100,000 gram-negative rods. ID and sensitivity are pending. I will hold off chemo today and put her on nitrofurantoin 100 mg twice a day for 7 days until wehave sensitivities back. We will schedule her with staging PET scan # CHF: Follows with Dr. Ebony Beckham, [...] stent placement: December 23. PLAN: 1. Hold gemcitabine and carboplatin today 2. Start nitrofurantoin 100 mg twice a day for 7 days 3. Restaging PET scan 4. Next visit in 1 week with [...] Oncology 10/21/2022 Hospital Encounter Radiology Adilene Link[address] MEDICAL ONCOLOGY [place], [place] [id number] (Wo rk) 10/21/2022 Appointment Radiology Adilene Link [address] ONCOLOGY [place], [place] [address] (Wo rk) 10/21/2022 Appointment Radiology Adilene Link [address] MEDICAL ONCOLOGY [place], [place] [address] (Wo rk) 10/25/2022 Office Visit Hematology and Oncology Alberto Guy MD [facility] DR HEMATOLOGY/[place] [address] Adilene Link [address] MEDICAL ONCOLOGY [place], [place] [id number] 11/09/2022 Office Visit Urology Bobo Davis MD [facility] DR UROLOGY [place], [place] [address] (Wo rk) documented as of this encounter Results NM PET CT Skull Base to Mid-thigh (04/30/2021 10:20 AM EDT) Anatomical Region Laterality Modality Positron Emission To mography (PET) Specimen (Source) Anatomical Location Collection Method / Collectio n Time Received Time / Laterality Volume Impressions 04/30/2021 4:56 PM EDT 1. ??Anatomically decrease in size of known right upper tract urothelial carcinoma tumor, residual tumor difficul t to evaluate secondary to normally excreted activity within the collecting system. 2. ??No suspected residual active champ metastases. 3. ??Interval small FDG avid left axilla ry and left lower neck/supraclavicular lymph nodes, favored likely reactive rel ated to recent Covid vaccination. I have personally reviewed the image(s) and the resident's interpretation and agree with the findings, Sweta Schrader MD at 04/30/2021 4:56 PM Thank you for letting us participate in the care of this patient. ??If you are a health care provider and have any questi ons regarding this report, please contact the number below. ??For patients who have questions please contact the health health care marketing specialist that requested your imaging first. ? Electronically signed by: Sweta Schrader MD, [facility] ([phone]), at 04/30/2021 4:56 PM Narrative 04/30/2021 4:56 PM EDT EXAMINATION: NM PET CT SKULL BASE TO MID-THIGH ? CLINICAL HISTORY: Urologic cancer, asses s treatment response - Include more detail below Restaging of metastatic urothelial carci noma TECHNIQUE: Following IV injection of 18- ktbiiu-1-aulxcaczteyq (FDG) a standard uptake of approximately 60 minutes, a no ncontrast CT scan followed by a PET scan were acquired from the base of the skull to mid thighs. The noncontrast CT was used for anatomic localization and photo n attenuation correction of the PET scan. No oral contrast was administered. Blood glucose level: 79 (mg/dL) FDG dose: 14.1 mCi Today's study reference liver mean SUV i s 2.2 COMPARISON: PET/CT 01/06/2021, CT chest 03/19/2021, CT abdomen and pelvis 02/09/2021, CT urogram 12/18/2020- from outside institut ion FINDINGS: HEAD/NECK: Small FDG avid lymph nodes in the left l ower neck/supraclavicular region, for example see axial image 52. Normal activ ity in all other soft tissue regions of the neck and visualized lower head. CHEST: Small FDG avid left axillary lymph nodes , consistent with recent left upper extremity COVID19 vaccination. Anatomically stable small benign-appeari ng FDG avid right axillary lymph node, activity similar to that of background m ediastinal blood pool, and likely reactive. Complete or near complete metabolic reso lution and decrease in anatomic size of previously demonstrated FDG avid upper m ediastinal/right paratracheal lymph nodes, residual lymph nodes showing no s ignificant activity above background mediastinal blood pool. Stable CT visualized small pericardial e ffusion, aortic and multivessel coronary artery ossifications, and subsegmental a telectasis/scarring in the right upper and middle lobes, and lingula. ABDOMEN/PELVIS: Limited evaluation for residual urotheli al carcinoma of the right upper tract secondary to excreted physiologic activi ty within the collecting systems. Anatomically, there is decreased soft ti ssue fullness seen in the central mid to superior pole of the right kidney. Right double-J ureteral stent remains in place, no right collecting system dilata tion identified. Interval decrease in anatomic size and m etabolic activity of previously demonstrated FDG avid retroperitoneal ly mph nodes in the aortocaval and pericaval regions, none of the residual lymph nodes showing significant activity above background liver. Small bilateral benign-appearing FDG jazmyne d inguinal lymph nodes, anatomically unchanged and likely stable in metabolic activity allowing for technical differences between the two studies. New since the 01/06/2021 PET/CT are multi ple FDG avid subcutaneous nodular foci in the anterior abdominal wall, most con sistent with interval subcutaneous injections. Diffuse bowel activity in a pattern whic h can be seen with metformin intake, alternatively representing normal varian t bowel activity. FDG avid focus adjacent to the left isch ial and, most compatible with enthesopathy. Unchanged CT visualized diffuse atrophy of the pancreas, diffuse vascular calcifications. SKELETON/EXTREMITIES: Normal marrow activity in all regions of the axial and visualized appendicular skeleton. FDG avid subcutaneous stranding in the p roximal left upper arm, probably not significantly changed from prior allowin g for differences in technique, and favored likely inflammatory. Procedure Note Sweta Schrader MD - 04/30/2021Formatt ing of this note might be different from the original. EXAMINATION: NM PET CT SKULL BASE TO MID -THIGH CLINICAL HISTORY: Urologic cancer, asses s treatment response - Include more detail below Restaging of metastatic urothelial carci noma TECHNIQUE: Following IV injection of 18- ncddmr-9-ahjiyiekpyjr (FDG) a standard uptake of approximately 60 minutes, a no ncontrast CT scan followed by a PET scan were acquired from the base of the skull to mid thighs. The noncontrast CT was used for anatomic localization and photo n attenuation correction of the PET scan. No oral contrast was administered. Blood glucose level: 79 (mg/dL) FDG dose: 14.1 mCi Today's study reference liver mean SUV i s 2.2 COMPARISON: PET/CT 01/06/2021, CT chest 03/19/2021, CT abdomen and pelvis 02/09/2021, CT urogram 12/18/2020- from outside institut ion FINDINGS: HEAD/NECK: Small FDG avid lymph nodes in the left l ower neck/supraclavicular region, for example see axial image 52. Normal activ ity in all other soft tissue regions of the neck and visualized lower head. CHEST: Small FDG avid left axillary lymph nodes , consistent with recent left upper extremity COVID19 vaccination. Anatomically stable small benign-appeari ng FDG avid right axillary lymph node, activity similar to that of background m ediastinal blood pool, and likely reactive. Complete or near complete metabolic reso lution and decrease in anatomic size of previously demonstrated FDG avid upper m ediastinal/right paratracheal lymph nodes, residual lymph nodes showing no s ignificant activity above background mediastinal blood pool. Stable CT visualized small pericardial e ffusion, aortic and multivessel coronary artery ossifications, and subsegmental a telectasis/scarring in the right upper and middle lobes, and lingula. ABDOMEN/PELVIS: Limited evaluation for residual urotheli al carcinoma of the right upper tract secondary to excreted physiologic activi ty within the collecting systems. Anatomically, there is decreased soft ti ssue fullness seen in the central mid to superior pole of the right kidney. Right double-J ureteral stent remains in place, no right collecting system dilata tion identified. Interval decrease in anatomic size and m etabolic activity of previously demonstrated FDG avid retroperitoneal ly mph nodes in the aortocaval and pericaval regions, none of the residual lymph nodes showing significant activity above background liver. Small bilateral benign-appearing FDG jazmyne d inguinal lymph nodes, anatomically unchanged and likely stable in metabolic activity allowing for technical differences between the two studies. New since the 01/06/2021 PET/CT are multi ple FDG avid subcutaneous nodular foci in the anterior abdominal wall, most con sistent with interval subcutaneous injections. Diffuse bowel activity in a pattern whic h can be seen with metformin intake, alternatively representing normal varian t bowel activity. FDG avid focus adjacent to the left isch ial and, most compatible with enthesopathy. Unchanged CT visualized diffuse atrophy of the pancreas, diffuse vascular calcifications. SKELETON/EXTREMITIES: Normal marrow activity in all regions of the axial and visualized appendicular skeleton. FDG avid subcutaneous stranding in the p roximal left upper arm, probably not significantly changed from prior allowin g for differences in technique, and favored likely inflammatory. IMPRESSION 1. Anatomically decrease in size of know n right upper tract urothelial carcinoma tumor, residual tumor difficul t to evaluate secondary to normally excreted activity within the collecting system. 2. No suspected residual active champ me tastases. 3. Interval small FDG avid left axillary and left lower neck/supraclavicular lymph nodes, favored likely reactive rel ated to recent Covid vaccination. I have personally reviewed the image(s) and the resident's interpretation and agree with the findings, Sweta Schrader MD at 04/30/2021 4:56 PM Thank you for letting us participate in the care of this patient. If you are a health care provider and have any questi ons regarding this report, please contact the number below. For patients w ho have questions please contact the health health care marketing specialist that requested your imaging first. 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
--- OUTSIDE RECORDS SUMMARY | 2022-10-07 18:41 | XMS_ITS | Encounter Summary ---
:1955 Author Organization [facility] [place] [address] Care Team Providers Name Role Phone Unavailable Primary Care Provider Unavailable Encounter Details Date Type Department Care Team Description 03/19/2021 Telephone Cardiology Zhang Jones MD [place] [address] CARDIOLOGY DEPT [phone] [place], [place] [address] (Wo rk) Social History Tobacco Use Types Packs/Day Years Used Date Former Smoker Cigarettes 0.25 Quit: 06/2020 Smokeless Tobacco: Never Used Sex Assigned at Date Recorded Not on file documented as of this encounter Miscellaneous Notes Telephone Encounter - Zhang Jones MD - 03/19/2021 5:47 PM EDT Telephone Triage Note Initial contact date: 03/19/2021 Initial contact time: 5:50 PM Referring provider: [place] Muñiz Patient location: [facility] Past medical history: Renal cancer, on chemotherapy (gemcitabine) History 65 y/o woman presents with worsening dyspnea, bilateral lower extremity edema. CT scan shows some pulmonary edema with small pericardial effusion. No signs of tamponade Pertinent diagnostic findings: Vitals: BP 173/108 HR 106 RR 17 SaO2 97% CT scan shows small pericadial fat pad and small pericardial effusion. Reportedly, HR is at baseline. Plan: Admit there, monitor closely, echocardiogram. Zhang Jones MD 03/19/2021 documented in this encounter Plan of Treatment Upcoming Encounters Date Type Specialty Care Team Description 10/21/2022 Appointment Hematology and Oncology 10/21/2022 Hospital Encounter Radiology Adilene Link[address] [place] [address] (Wo rk) 10/21/2022 Appointment Radiology Adilene Link[address] MEDICAL ONCOLOGY [place], [place] [address] (Wo rk) 10/21/2022 Appointment Radiology Adilene Link[address] MEDICAL ONCOLOGY [place], [place] [address] (Wo rk) 10/25/2022 Office Visit Hematology and Oncology Alberto Guy MD [facility] DR HEMATOLOGY/[place] [address] [address] MEDICAL ONCOLOGY [place], [place] [address] 11/09/2022 Office Visit Urology Bobo Davis MD [facility] DR UROLOGY [place], [place] [address] (Wo rk) documented as of this encounter Visit Diagnoses Not on filedocumented in this encounter
--- OUTSIDE RECORDS SUMMARY | 2022-10-07 18:41 | XMS_ITS | Encounter Summary ---
:1955 Author Organization [facility] [place] [address] Care Team Providers Name Role Phone Unavailable Primary Care Provider Unavailable Encounter Details Date Type Department Care Team Description 03/16/2021 Telephone Hematology/Oncology at [facility] Alberto mcmanus MD [address] HEMATOLOGY/ONCOLOGY [place], [place] [phone] [place] [address] (Wo rk) Social History Tobacco Use Types Packs/Day Years Used Date Former Smoker Cigarettes 0.25 Quit: 06/2020 Smokeless Tobacco: Never Used Sex Assigned at Date Recorded Not on file documented as of this encounter Miscellaneous Notes Telephone Encounter - Alberto Bhatia MD - 03/16/2021 6:19 PM EDT I called Debora Solis at [phone] and discussed Mrs. Pichardo's prognosis and treatment planin details. All questions were answered to Debora satisfaction. Debora Solis Phone- Nancy would like you to go over her prognosis and treatment plan with her. Kamla Head documented in this encounter Plan of Treatment Upcoming Encounters Date Type Specialty Care Team Description 10/21/2022 Appointment Hematology and Oncology 10/21/2022 Hospital Encounter Radiology Adilene Link, [employer] [address] [place] [address] MEDICAL ONCOLOGY [place], [place] [phone] (Wo rk) 10/21/2022 Appointment Radiology Adilene Link[address] ONCOLOGY [place], [place] [phone] (Wo rk) 10/21/2022 Appointment Radiology Adilene Link[address] ONCOLOGY [place], [place] [id number] (Wo rk) 10/25/2022 Office Visit Hematology and Oncology Alberto Guy MD [facility] [place]EMATOLOGY/[place] [address] [address] MEDICAL ONCOLOGY [place], [place] [phone] 11/09/2022 Office Visit Urology Bobo Davis MD [facility] UROLOGY [place], [place] [address] (Wo rk) documented as of this encounter Visit Diagnoses Not on filedocumented in this encounter
--- OUTSIDE RECORDS SUMMARY | 2022-10-07 18:41 | XMS_ITS | Encounter Summary ---
:1955 Author Organization [facility] [place] [address] Care Team Providers Name Role Phone Derek Torres Primary Care Provider Encounter Details Date Type Department Care Team Description 06/02/2021 Office Visit Same Day at [facility] [place] [address] Social History Tobacco Use Types Packs/Day [...] Oncology 10/21/2022 Hospital Encounter Radiology Adilene Link[address] [place] [address] (Kwadwo morataya) 10/21/2022 Appointment Radiology Adilene iLnk[address] [place] [address] (Kwadwo morataya) 10/21/2022 Appointment Radiology Adilene Link [address] [place] [address] (Kwadwo morataya) 10/25/2022 Office Visit Hematology and Oncology Alberto Guy MD [facility] DR HEMATOLOGY/[place] [address] Adilene Link, [address] MEDICAL ONCOLOGY [place], [place] [phone] 11/09/2022 Office Visit Urology Bobo Davis MD [facility] UROLOGY [place], [place] [address] (Wo rk) documented as of this encounter Visit Diagnoses Not on filedocumented in this encounter Care Teams Preform Machine Operator Relationship Specialty Start Date End Date Derke Torres PA PCP - General Internal Medicine 04/13/21 06/03/21 [address] [place], [place] [address] documented as of this encounter
--- OUTSIDE RECORDS SUMMARY | 2022-10-07 18:41 | XMS_ITS | Encounter Summary ---
:1955 Author Organization [facility] Address [facility] [place] [address] Care Team Providers Name Role Phone Unavailable Primary Care Provider Unavailable Encounter Details Date Type Department Care Team Description 03/20/2021 Telephone Hematology and Oncology at Alexia Bella MD [facility] Dennis fernández HEMATOLOGY/[place] [address] [place] [address] [phone] (Wo rk) Social History Tobacco Use Types Packs/Day Years Used Date Former Smoker Cigarettes 0.25 Quit: 06/2020 Smokeless Tobacco: Never Used Sex Assigned at Date Recorded Not on file documented as of this encounter Miscellaneous Notes Telephone Encounter - Alexia Bella MD - 03/20/2021 11:02 AM EDT Reason for call: Question about anticoagulation. Nancy Pichardo is a 65 y.o. female with urothelial ca on Cherokee/Carbo last cycle on 03/09. She also received Neulesta. She presented yesterday with CHF exacerbation. She also has RUE thrombophlebitis for which she is on cipro. She has LE asymmetrical swelling and Dr. Hernandez is concerned about DVT. Duplex ispending. She has no PE on the CT scan. Her labs showed WBC 33K (44K yesterday), Hb 8, Plt 127. Dr. Hernandez is asking if she can anticoagulate her while waiting on the DVT study. She was concern forthe history of hematuria. Recommendations: At this time I see no contraindication for the anticoagulation and if Dr. Hernandez think it is indicated, then she can start anticoagulation. She will start pt. On Heparin so that she can stop it if the pt. Developed hematuria. Alexia Bella MD, MS Hematology/Medical Oncology Fellow [facility] Page # [phone] 03/20/21, 11:13 AM documented in this encounter Plan of Treatment Upcoming Encounters Date Type Specialty Care Team Description 10/21/2022 Appointment Hematology and Oncology 10/21/2022 Hospital Encounter Radiology Adilene Link[address] MEDICAL ONCOLOGY [place], [place] [id number] [phone] (Wo rk) 10/21/2022 Appointment Radiology Adilene Link[address] ONCOLOGY [place], [place] [address] [phone] (Wo rk) 10/21/2022 Appointment Radiology Adilene Link[address] [place] [address] (Wo rk) 10/25/2022 Office Visit Hematology and Oncology Alberto Guy MD [facility] DR HEMATOLOGY/[place] [address] [address] [place] [address] 11/09/2022 Office Visit Urology Bobo Davis MD [facility] UROLOGY [place], [place] [address] (Wo rk) documented as of this encounter Visit Diagnoses Not on filedocumented in this encounter
--- OUTSIDE RECORDS SUMMARY | 2022-10-07 18:41 | XMS_ITS | Encounter Summary ---
:1955 Author Organization [facility] [place] [address] Care Team Providers Name Role Phone Derek Torres Primary Care Provider Reason for Referral Diagnostic Test (Routine) - Closed Specialty Diagnoses / Procedures Referred By Contact Refer red To Contact Radiology Diagnoses Urothelial carcinoma of kidney, right Metastatic urothelial carcinoma Alberto Bhatia MD [facility] Rad Nuclear Med Procedures NM PET CT Skull Base to Mid-thigh [facility] HEMATOLOGY/[place] [address] [place] [address] Referral ID Status Reason Start Date Expiration Date Visits V isits Requested Authorized [id number] Closed Specialty 04/06/2021 10/07/2022 1 1 Service Requested Reason for Visit Diagnostic Test (Routine) - Closed Specialty Diagnoses / Procedures Referred By Contact Refer red To Contact Radiology Diagnoses Urothelial carcinoma of kidney, right Metastatic urothelial carcinoma Alberto Bhatia MD [facility] Rad Nuclear Med Procedures NM PET CT Skull Base to Mid-thigh [facility] HEMATOLOGY/[place] [address] [place] [address] Referral ID Status Reason Start Date Expiration Date Visits V isits Requested Authorized [id number] Closed Specialty 04/06/2021 10/07/2022 1 1 Service Requested Encounter Details Date Type Department Care Team Description 04/30/2021 Hospital Encounter Nuclear Medicine at Gabe Bhatia othelial carcinoma of kidney, right; Ebony Dominguez MD Metastatic urothelial carcinoma [facility] [address] [place] HEMATOLOGY/ONCOL [address] OGY [phone] [place] [address] Social History Tobacco Use Types Packs/Day Years [...] DIRECTED sodium phosphates Place 1 enema 0 03/20/2021 04/2 04/2022 (FLEET) Enema rectally once as needed. cyanocobalamin, [...] Take 1 tablet by 20 tablet 3 021 06/15/2021 mg TabletIndications: mouth every 8 hours Malignant neoplasm of as needed for Nausea. urinary bladder, unspecified site documented as of this encounter Plan of Treatment Upcoming Encounters Date Type Specialty Care Team Description 10/21/2022 Appointment Hematology and Oncology 10/21/2022 Hospital Encounter Radiology Adilene Link, DIP FILLER [address] [place] [address] [place] [address] (Wo rk) 10/21/2022 Appointment Radiology Adilene Link[address] MEDICAL ONCOLOGY [place], [place] [phone] (Wo rk) 10/21/2022 Appointment Radiology Adilene Link[address] MEDICAL ONCOLOGY [place], [place] [phone] (Wo rk) 10/25/2022 Office Visit Hematology and Oncology Alberto Guy MD [facility] DR HEMATOLOGY/[place] [address] [address] MEDICAL ONCOLOGY [place], [place] [phone] 11/09/2022 Office Visit Urology Bobo Davis MD [facility] DR UROLOGY [place], [place] [address] (Wo rk) documented as of this encounter Procedures Procedure Name Priority Date/Time Associated Diagnosis Comme nts NM PET CT SKULL Routine 04/30/2021 10:20 AM Urothelial carcino ma Results for this BASE TO MID-THIGH EDT of kidney, rig ht procedure are in ([facility]) Metastatic the results urothelial carcinoma section . documented in this encounter Results NM PET [...] who have questions please contact the health clinical care leader that requested your imaging first. ? Narrative 04/30/2021 4:56 PM EDT EXAMINATION: NM PET CT SKULL BASE TO MID-THIGH ? CLINICAL HISTORY: Urologic cancer, asses s treatment response - Include more detail below Restaging of metastatic urothelial carci noma TECHNIQUE: Following IV injection of 18- sqqcjm-9-qgqvmmcklyza (FDG) a standard uptake of approximately 60 [...] noma TECHNIQUE: Following IV injection of 18- xjdjtn-0-wbtqhidizqfh (FDG) a standard uptake of approximately 60 [...] ho have questions please contact the health clinical care leader that requested your imaging first. 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
--- OUTSIDE RECORDS SUMMARY | 2022-10-07 18:42 | XMS_ITS | Encounter Summary ---
:1955 Author Organization [facility] [place] [address] Care Team Providers Name Role Phone Unavailable Primary Care Provider Unavailable Reason for Visit Consultation (Routine) - Closed Specialty Diagnoses / Procedures Referred By Contact Refer red To Contact Urology Diagnoses Urothelial carcinoma of kidney, right Alberto Bhatia MD [facility] Urology [facility] HEMATOLOGY/[place] [address] [place] [address] Referral ID Status Reason Start Date Expiration Date Visits V isits Requested Authorized [id number] Closed Consult, 01/26/2021 01/26/2022 1 1 Test & Treat Encounter Details Date Type Department Care Team Description 02/04/2021 TH Visit Hematology and Bobo Davis, Cancer of renal (TeleHealth) Oncology at [facility] pelvis, right [facility] [address] [place] [address] [place] [address] [phone] Social History Tobacco Use Types Packs/Day Years Used Date Former Smoker Cigarettes 0.25 Quit: 06/2020 Smokeless Tobacco: Never Used Sex Assigned at Date Recorded Not on file documented as of this encounter Progress Notes Bobo Davis MD - 02/04/2021 10:30 AM EST Images from the original note were not included. Patient Name: Nancy Pichardo Date of Service: 02/04/2021 Primary Care Provider: Zenon Lozoya MD Reason for Visit: Nancy Pichardo is a 65 y.o. female who is referred by Dr Gonsalez and Dr Renner forevaluation of urothelial cancer The patient is very anxious frustrated. The patient has been tired for some time and developed hematuria. She was evaluated by Dr Renner whofound to have a Right renal pelvis tumor 12/25/[address] Renner 01/13/2021 High Grade Cytology A biopsy of her retroperitoneal lymph nodes Currently the patient has a long history of irritative symptoms with frequencyand nocturia x 2-3 . Unchanged She has had hematuria but it is clear now. She has an uncomfortable sensation in her Right flank. Appetite is decreased weight is 5-10lbs. She is fatiguedThere is no bone pain. Past Medical History: Type II DM Hyperlipidemia HTN PTSD Past Surgical History: Breast operation Over last 5 years 3 Abdominal hernia repairs ? MESH ~2017 Hysterectomy for a benign tumor Hx of Medications: Reviewed Allergies: Reviewed Family History: Mother had cancer at age 43 metastatic ? 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 The patient has been for ~20 years The patient drinks none. Tobacco: None x 6 months. ~ ~40 pack years Systems review: She can walk and do small chores. She gets fatigued easily. She is not limited by cardiovascular syptoms HEENT: Denies problems with vision, hearing, runny nose, epistaxis, sore throat, hoarseness Cardiovascular: Denies Chest pain, palpitations, shortness of breath, ankle swelling, claudication Respiratory: Denies cough, phlegm, hemoptysis,wheeze, Gastrointestinal: Denies nausea, difficulty swallowing, vomiting, hematemesis, diarrhea, blood per rectum. Mild constipation Neurological: Denies dizziness, double vision, headache, weakness of one side of the body or the other,sudden loss of vision in one eye, Bones and muscles: Denies bone pain, radiating pain, muscle weakness or sore ness. All other systems negative. Physical Exam: Not examined Lab values are reviewed 02/01/2021 Cr 1.7, Alk 101, LFT's normal, Hb 10.7, Plt 392 X-rays are reviewed 12/18/2020 CT ABd 12/25/2020 PET Impression: #1: [id number] Urothelial cancer Stage IV #2: CRI Stage III #3: Moderate comorbidity Plan: Path from Retroperitoneal biopsy for review Tumor board discussion Likely Neoadjuvant chemotherapy followed by nephroureterectomy +node dissection of no evidence of progression. I discussed with the patient that she had urothelial cancer metastatic to the retroperitoneal lymph nodes. I discussed the options for treatment including neoadjuvant therapy followed by surgery versussurgery alone. I discussed with her that we will review her case at tumor [facility] and come up with a final treatment recommendation. I discussed with the patient the prognosis in patients who have urothelial cancer metastatic to the regional lymph nodes and her 5-year survival is at best approximately 20%. I discussed that if she did nothing about the tumor that it would likely take her life within 1 to 2 years. I discussed the rationale for neoadjuvant therapy being #1 treatment of micrometastatic disease #2 treatment of champ disease to make surgery easier(she has quite extensive champ disease with extensivevascular attachment thus this is relevant in this case) #3 the ability to use chemotherapy when she has better preservation of her renal function. We discussed the renal and ureteral portions [...] there is a risk of short and application designer renal dysfunction possibly includung dialysis. However, I [...] patient and documentation. documented in this encounter Plan of Treatment Upcoming Encounters Date Type Specialty Care Team Description 10/21/2022 Appointment Hematology and Oncology 10/21/2022 Hospital Encounter Radiology Adilene Link[address] MEDICAL ONCOLOGY [place], [place] [phone] (Wo rk) 10/21/2022 Appointment Radiology Adilene Link[address] ONCOLOGY [place], [place] [address] [phone] (Wo rk) 10/21/2022 Appointment Radiology Adilene Link[address] ONCOLOGY [place], [place] [address] [phone] (Wo rk) 10/25/2022 Office Visit Hematology and Oncology Alberto Guy MD [facility] DR HEMATOLOGY/[place] [address] [address] Link [address] MEDICAL ONCOLOGY [place], [place] [phone] 11/09/2022 Office Visit Urology Bobo Davis MD [facility] DR UROLOGY [place], [place] [address] (Wo rk) Scheduled Referrals Name Type Priority Associated Diagnoses Order S chedule Referral to Outpatient Referral Routine Urothelial carcinoma Ordered: Urology of kidney, right 01/26/2021 documented as of this encounter Visit Diagnoses Diagnosis Cancer of renal pelvis, right documented in this encounter
--- OUTSIDE RECORDS SUMMARY | 2022-10-07 18:42 | XMS_ITS | Encounter Summary ---
:1955 Author Organization [place] [address] Care Team Providers Name Role Phone Unavailable Primary Care Provider Unavailable Encounter Details Date Type Department Care Team Description 02/16/2021 Telephone Hematology/Oncology at Michelle Ann RD [address] [phone] Social History Tobacco Use Types Packs/Day Years Used Date Former Smoker Cigarettes 0.25 Quit: 06/2020 Smokeless Tobacco: Never Used Sex Assigned at Date Recorded Not on file documented as of this encounter Miscellaneous Notes Telephone Encounter - Michelle Ann RD - 02/16/2021 2:25 PM EDT [facility] Initial Dietitian Assessment - phone call Seen By: Michelle Ann RD LD Referred by: patient request Reason for visit: nutrition questions Patient and diagnosis: Nancy Pichardo is 65 y.o. female with metastatic urothelial carcinoma of rightkidney. On 02/10/21 she started carboplatin AUC 5 and gemcitabine 1000 mg/m?? day 1 and 8. HPI: Patient Active Problem List Diagnosis Code ??? [...] stress disorder) F43.10 ??? Urinary incontinence R32 Meds: reviewed, insulin managed by PCP Labs: reviewed Estimated body mass index is 35.61 kg/m?? as calculated from the following: Height as of an earlier encounter on 02/16/21: 160 cm (5' 2.99). Weight as of an earlier encounter on 02/16/21: 91.2 kg (201 lb). Wt Readings from Last 3 Encounters: 02/16/21 91.2 kg (201 lb) 02/10/21 93.4 kg (206 lb) 01/26/21 94.8 kg (209 lb) Nutrition Assessment: Patient reports difficulty determining what she should eat while undergoing chemotherapy. She discusses her history of diabetes and tries to be cautious of her sugar intake. Lately, food is less appealing and is struggling with altered sense of taste. She reports trying to eat best she can. Eats lots of fruit, yogurt, veggies, and tries to eat protein (although red meat and chicken are not appealing lately). Best time for her appetite is first thing in the morning. Example breakfast includes scrambled eggs with cheese and 1 slice of toast. She asks for a list of foods she can eat with considerationof her history of diabetes. Supplements/Frequency: n/a ___ Ensure/Plus ___ Boost/Plus ___ CIB ___ Other: Teas, vitamins, or other nutritional supplements: vitamin D per medication list Food allergies or avoidances: n/a Appetite: fair/variable Nausea: +mild Vomiting: n/a Chewing: n/a Dentition: n/a Swallowing: n/a Taste Changes: +changes every couple of hours Bowels: did not discuss Nutrition Diagnosis: Nutrition questions related to what to eat while undergoing chemotherapy with history of diabetes asevidenced by first encounter with cancer center dietitian. Nutrition Intervention: ? Plan to provide patient list of meal/snack ideas with estimated carbohydrate content she can referto ? Suggest small, frequent nutrient dense meals/snacks ? Nutrition supplements: will include list of low sugar nutrition supplement options that are available if needed, such as glucerna or boost glucose control Monitoring and Evaluation: Will follow up in 2 weeks. documented in this encounter Plan of Treatment Upcoming Encounters Date Type Specialty Care Team Description 10/21/2022 Appointment Hematology and Oncology 10/21/2022 Hospital Encounter Radiology Adilene Link[address] MEDICAL ONCOLOGY [place], [place] [phone] (Wo rk) 10/21/2022 Appointment Radiology Adilene Link[address] ONCOLOGY [place], [place] [phone] (Wo rk) 10/21/2022 Appointment Radiology Adilene Link[address] MEDICAL ONCOLOGY [place], [place] [phone] (Wo rk) 10/25/2022 Office Visit Hematology and Oncology Alberto Guy MD [facility] DR HEMATOLOGY/[place] [address] Adilene Link [address] MEDICAL ONCOLOGY [place], [place] [phone] 11/09/2022 Office Visit Urology Bobo Davis MD [facility] DR UROLOGY [place], [place] [address] (Wo rk) documented as of this encounter Visit Diagnoses Not on filedocumented in this encounter
--- OUTSIDE RECORDS SUMMARY | 2022-10-07 18:42 | XMS_ITS | Encounter Summary ---
:1955 Author Organization [facility] Address [facility] [place] [address] Care Team Providers Name Role Phone Unavailable Primary Care Provider Unavailable Reason for Visit Reason Comments Skin Check Consultation (Urgent) - Closed Specialty Diagnoses / Procedures Referred By Contact Refer red To Contact Dermatology Diagnoses HX OF SCC UPPER EXT, NEW FACIAL LESIONS Zenon Lozoya MD [facility] Dermatology [address] [place] [address] [place] [address] Fax: Referral ID Status Reason Start Date Expiration Date Visits V isits Requested Authorized [id number] Closed Consult, 04/02/2019 04/01/2020 1 1 Test & Treat Connection Center Encounter Details Date Type Department Care Team Description 05/14/2019 Office Visit Dermatology at [facility] Jesus Colin, Adnexal tumor; Road MD [place]; [address] [facility] Scar; [place] [address] [address] Sebaceous gland hyperplasia; [phone] [facility] Multiple benign nevi; RD-DERMATOLOGY Seborrheic keratoses; [place], [place] [address] Kenny angioma; [phone] History of SCC (squamous cell carcinoma) of skin (Work) Social History Tobacco Use Types Packs/Day Years Used Date Current Some Day Smoker Smokeless Tobacco: Never Used Sex Assigned at Date Recorded Not on file documented as of this encounter Progress Notes Jesus Colin MD - 05/14/2019 2:45 PM EDT Images from the original note were not included. DERMATOLOGY [place], [place] CONSULT Reason for Consultation: New facial lesions Date of Consultation: 05/14/19 Consult Requested by: Zenon Lozoya Md [address] [place] [address] Chief Complaint: Lesions on the face History of Present Illness Nancy Pichardo is a 64 y.o. female with history of skin cancer who presents with the following concerns: ?? Mildly itchy lesions around the eye that started 40+ years ago. The lesions intermittently becomeinfected or mildly itchy. Previously been shaved off or burned off. Never been biopsied. ?? Nodule on the right breast that has been present for many years. Grows and shrinks. No significant symptoms. Never been treated or biopsied. ?? No other concerning or suspicious lesion. ?? No known recurrence of previous skin cancer. Requests full body skin cancer screening. Review of Systems Significant for no pertinent and acute changes in constitutional, other skin systems upon specific queries. Skin Cancer History Right upper arm, SCC, s/p treatment in 2017 Unknown family history of skin cancer. Allergies Medications Atorvastatin calcium; Simvastatin; and Sulfa (sulfonamide antibiotics) has a current medication list which includes the following prescription(s): glucophage, ibuprofen, insulin glargine,hum.rec.anlog, claritin, nasonex, zoloft, depakote, naproxen sodium, insulin aspart,colace, and dilaudid. 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 Well developed, well-nourished in no apparent distress, alert and oriented to time, person, place and situation. Skin Type: II. Patient was asked to disrobe to the level of comfort. Examination of the skin of the head - including the scalp, face, ears, eyelids, nose, lips, tongue, oral/nasal/conjunctival mucosa - neck, chest, abdomen, back, axillae, buttocks, pubic area, upper andlower extremities, including the nail plates, significant for the following: ?? Multiple, 2-4 mm, slightly yellow-hued superficial papules--few with warty appearance--on the upper and lower eyelids bilaterally ?? A few small cysts c/w milia on the right postauricular neck ?? Ice pick scars on the cheeks ?? 2-3mm yellow-hued, cauliflower-like umbilicated papules c/w sebaceous hyperplasia on the foreheadand face ?? Well-demarcated, round or oval, angel or brown macules and papules with benign morphology on the head, neck, trunk, buttocks, and extremities ?? Scattered, stuck-on, well-demarcated, angel or brown, waxy or warty papules c/w SKs on the head, trunk, and extremities ?? Multiple, kenny red 1-4mm papules on the head, neck, trunk, and extremities ?? 7 mm, firm, mobile cyst with possible punctum on the left upper breast. ?? No evidence of recurrence in scar on the right arm Image Photo taken by Angela Colin MD. with patient's verbal permission for use for clinical and education purposes. 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 Plan to discuss with Dr. Roldan for laser resurfacing therapy. Patient understands that procedure maynot be covered by insurance, thus it may be an dbt-zo-gneufa expense. Milia, Neck Asymptomatic. Counseled: Benign cysts. Usually self-resolve in months. Treatment options including but not limitedto OTC milia extractor, topical retinoids. Answered all questions. Patient understands that diagnosis is considered cosmetic, thus any treatment will be considered cosmetic. Scars No treatment indicated at this time. Sebaceous Gland Hyperplasia Counseled: benign growths of sebaceous glands (hair follicle unit) that harbor a rare risk of sebaceous carcinoma. Handout given. Answered all questions. Nevi Morphology reassuring for benign nevi. Counseled: Nevi and risks for melanoma arising in a nevus. Recommend regular self-examinations. Answered all questions. Reviewed ABCDEs of melanoma, as below. Return to clinic prn for changes in color, size, shape or thickness or should bleeding or other symptoms occur. Patient agrees to plan. Seborrheic Keratoses Benign. No treatment necessary. Counseled: IRONs, benign. Answered all questions. Handout given Kenny Angiomas Counseled: kenny angiomas. Benign. No treatment necessary unless symptoms develop. Handout given. Epidermal Inclusion Cyst, Right Breast Benign. Counseled: Etiologies and risks for secondary infection, chronic prognosis and treatment options, including but not limited to observation, excision. Answered all questions. Patient elects to clinically monitor. History of Skin Cancer No evidence of recurrence. Patient Counseled [Skin Cancer] Counseled: sun protection, regular self skin exams, provider skin exams every 12 months, and the ABCDEs of melanoma/NMSC. Answered all questions. Handouts on how to do a self-exam, skin cancers and sunprotection given to the patient. Follow-up: Skin cancer screening in April 2020 or return to clinic prn for new suspicious lesions or if changes/symptoms in existing lesions develop. Note initiated by JULIANNA Narvaez has performed the documentation for this encounter in the presence of and acting as ascribe for Dr. Colin. I performed the above scribed service and agree with the accuracy of the documentation in this encounter. Jesus Colin MD [facility] Section of Dermatology [facility] documented in this encounter Plan of Treatment Upcoming Encounters Date Type Specialty Care Team Description 10/21/2022 Appointment Hematology and Oncology 10/21/2022 Hospital Encounter Radiology Adilene Link[address] MEDICAL ONCOLOGY [place], [place] [phone] (Kwadwo morataya) 10/21/2022 Appointment Radiology Adilene Link[address] MEDICAL ONCOLOGY [place], [place] [phone] (Kwadwo morataya) 10/21/2022 Appointment Radiology Adilene Link[address] MEDICAL ONCOLOGY [place], [place] [phone] (Kwadwo morataya) 10/25/2022 Office Visit Hematology and Oncology Alberto Guy MD [facility] DR HEMATOLOGY/[place] [address] Adilene Link, DOCUMENTATION BILLING CLERK[address] [place]ICAL [place] [address] 11/09/2022 Office Visit Urology Bobo Davis MD [facility] UROLOGY [place], [place] [address] (Wo rk) documented as of this encounter Visit Diagnoses Diagnosis Adnexal tumor Benign neoplasm of skin, site unspecifie d Milia Sebaceous cyst Scar Scar condition and fibrosis of skin Sebaceous gland hyperplasia Other specified disease of sebaceous gla nds Multiple benign nevi Benign neoplasm of skin, site unspecifie d Seborrheic keratoses Kenny angioma Nevus, non-neoplastic History of SCC (squamous cell carcinoma) of skin Personal history of other malignant neop lasm of skin documented in this encounter
--- OUTSIDE RECORDS SUMMARY | 2022-10-07 18:42 | XMS_ITS | Encounter Summary ---
:1955 Author Organization [facility] [place] [address] Care Team Providers Name Role Phone Unavailable Primary Care Provider Unavailable Encounter Details Date Type Department Care Team Description 03/09/2021 Office Visit Hematology/Oncology Adilene Link, Urot helial carcinoma at [facility] LUGGER of kidney, right [address] [place], [place] [address] [place], [place] [phone] (Wo rk) Social History Tobacco Use Types Packs/Day Years Used Date Former Smoker Cigarettes 0.25 Quit: 06/2020 Smokeless Tobacco: Never Used Sex Assigned at Date Recorded Not on file documented as of this encounter Last Filed Vital Signs Vital Sign Reading Time Taken Comments Blood Pressure 144/68 03/09/2021 9:57 AM EDT Pulse 91 03/09/2021 9:57 AM EDT Temperature 36 ??C (96.8 ??F) 03/09/2021 9:57 AM EDT Respiratory Rate 16 03/09/2021 9:57 AM EDT Oxygen Saturation 98% 03/09/2021 9:57 AM EDT Inhaled Oxygen Concentration - - Weight 93 kg (205 lb) 03/09/2021 9:57 AM EDT Height 160 cm (5' 2.99) 03/09/2021 9:57 AM EDT Body Mass Index 36.32 03/09/2021 9:57 AM EDT documented in this encounter Progress Notes Adilene Link, LUGGER - 03/09/2021 10:00 AM EDT Images from the original note were not included. Encounter Diagnosis Name Primary? Urothelial carcinoma of kidney, right Patient Active Problem List Diagnosis Code ??? [...] retroperitoneal lymph nodes on January 22 at [facility]. Pathology is pending. PET scan demonstrated increased FDG uptake at the sites of urothelial thickening in the right renal pelvis and enlarged avid right para-aortic lymph nodes. Nancy complains on low energy level, difficulties sleeping and right flank discomfort.Creatinine went up to 1.7 on December 30 from baseline creatinine of 0.5 in October 2019. INTERVAL HPI/Subjective(03/09/21):- Nancy returns to the [facility] today to continue treatment for urothelial cancer. She is accompanied by her Derek today. Nancy is doing fairly well with her treatments. She is very fatigued and complains of muscle pains that were worse immediately after treatment last week. She still has some mild soreness. She is struggling with her appetite- she has no desire to eat and has to make herself eat. No weight loss. She is complaining of acid burning in her throat. No mouth sores. She is also having some constipation. She is taking Miralax and using a Fleets enema. No vomiting. Denies any fevers, chills or signs of infection. No other focal complaints today. No chest pain, changes in breathing or swelling in extremities. PMH: No interval changes since last visit PTSD/depression, diabetes mellitus on insulin, arthritis, , hernia repair x3, anxiety, hysterectomy for urinary incontinence 2 to 3 years ago Social History: 22-ufaa-dhyr smoking history, quit 6 months ago, does [...] Medications: Your Medications Accurate as of March 09, 2021 10:12 AM. If you have any questions, ask [...] 2 times daily. 100 mg Refills: 0 hydroCHLOROthiazide 12.5 mg Tab Commonly known as: Hydrodiuril Take 12.5 mg by mouth Daily. 12.5 mg Refills: 0 Insulin Tresiba FlexTouch U-100 100 unit/mL (3 mL) Inpn Inject 60 Units subcutaneously daily. Generic drug: insulin degludec 60 Units Refills: 0 losartan 100 mg Tab Commonly known as: COZAAR Take 100 mg by mouth daily. 100 mg Refills: 0 NovoLOG U-100 Insulin aspart Soln Inject subcutaneously 3 times daily (with meals). Sliding scale Generic drug: insulin aspart U-100 Refills: 0 nystatin-triamcinolone Crea Commonly known as: MYCOLOG II Apply topically Twice daily. Refills: 0 ondansetron 8 mg Tab Commonly known as: Zofran Take 1 tablet by mouth every 8 hours as needed for Nausea. 8 mg Quantity: 20 tablet Refills: 3 polyethylene glycoL 17 gram/dose Powd Commonly known as: Miralax Take 17 g by mouth daily as needed. 17 g Refills: 0 prochlorperazine 10 mg Tab Commonly known as: Compazine Take 1 tablet by mouth every 6 hours as needed for Nausea. 10 mg Quantity: 30 tablet Refills: 2 spironolactone 25 mg Tab Commonly known as: Aldactone Take 25 mg by mouth daily. Patient stated she cuts pill in half and only takes half a tablet daily. 25 mg Refills: 0 STOPPED Medications ciprofloxacin 250 mg Tab Commonly known as: Cipro Stopped by: Adilene Link APRN Review of Systems Constitutional: Positive for appetite change. Negative for chills and fever. Eyes: Negative for icterus. Respiratory: Negative for cough and shortness of breath. Cardiovascular: Negative for chest pain and leg swelling. Genitourinary: Negative for difficulty urinating and hematuria. GI: Positive for mild nausea after chemotherapy Musculoskeletal: Generalized myalgias. Hematological: Negative for adenopathy. OBJECTIVE: Physical Exam Constitutional: Appearance: Normal appearance. She is not toxic-appearing. HENT: Head: Normocephalic. Mouth/Throat: Mouth: Mucous membranes are moist. Pharynx: Oropharynx is clear. No oropharyngeal exudate. Eyes: General: No scleral icterus. Conjunctiva/sclera: Conjunctivae normal. Cardiovascular: Rate and Rhythm: Normal rate and regular rhythm. Pulses: Normal pulses. Pulmonary: Effort: Pulmonary effort is normal. Abdominal: General: Bowel sounds are normal. There is no distension. Palpations: There is no mass. Musculoskeletal: Right lower leg: No edema. Left lower leg: No edema. Lymphadenopathy: Cervical: No cervical adenopathy. Skin: General: Skin is warm. Neurological: General: No focal deficit present. Mental Status: She is alert. Psychiatric: Mood and Affect: Mood normal. Thought Content: Thought content normal. Judgment: Judgment normal. BP 144/68 (Patient Position: Sitting) Pulse 91 Temp 36 ??C (96.8 ??F) (Temporal) Resp 16 Ht 160 cm (5' 2.99) Wt 93 kg (205 lb) SpO2 98% BMI 36.32 kg/m?? Wt Readings from Last 3 Encounters: 03/09/21 93 kg (205 lb) 03/02/21 92.5 kg (204 lb) 02/16/21 91.2 kg (201 lb) Pathology: 01/22/21 retroperitoneal lymph node biopsy: A. LYMPH NODE, RETROPERITONEUM, CT-GUIDED CORE NEEDLE BIOPSY: - Positive for carcinoma, favor urinary bladder primary, high-grade. See comment. 12/25/2020 urine: High-grade urothelial carcinoma with superimposed abundant degenerative changes Labs: 03/09/21- WBC-2.73 Hgb/Hct-9.2/28.5 Plt-321 ANC-1.49 Na-138 K+-5.1 [...] option particularly right nephroureterectomy. Nancy returns today for C2D8 Carbo/[place]. She is tolerating the treatments fairly well. She has some constipation, appetite changes and gastric reflux. Discussed measures to relieve symptoms today and given prescriptions for omeprazole and Senekot tablets. Labs reviewed and are adequate for treatment. No evidence of clinical toxicities. #Right hydronephrosis: Creatinine is 1.2, stable Creatinine 1.4-1.7, status post right ureteral stent placement: December 23. PLAN: 1. Proceed with Gemcitabine 1,000 mg/m 2 Day 8 today with neulasta support. 2. Pepcid IV with treatment today. Begin omeprazole 20mg po at HS. Try for one week and see if thereis improvement. May continue to use TUMS during the day as needed. 3. Continue Miralax at HS. Begin Senekot 2 tabs twice a day - try not to use Fleet enemas. 2. Next visit in 2 weeks with blood [...] Oncology 10/21/2022 Hospital Encounter Radiology Adilene Link [address] MEDICAL ONCOLOGY [place], [place] [phone] (Kwadwo morataya) 10/21/2022 Appointment Radiology Adilene Link [address] MEDICAL ONCOLOGY [place], [place] [address] (Kwadwo morataya) 10/21/2022 Appointment Radiology Adilene Link [address] MEDICAL ONCOLOGY [place], [place] [phone] (Kwadwo morataya) 10/25/2022 Office Visit Hematology and Oncology Alberto Guy MD [facility] DR HEMATOLOGY/[place] [address] Adilene Link, LUGGER [address] [place] [address] [place] [address] 11/09/2022 Office Visit Urology Bobo Davis MD [facility] DR UROLOGY [place], [place] [address] (Wo rk) documented as of this encounter Visit Diagnoses Diagnosis Urothelial carcinoma of kidney, right documented in this encounter
--- OUTSIDE RECORDS SUMMARY | 2022-10-07 18:42 | XMS_ITS | Encounter Summary ---
:1955 Author Organization [facility] [place] [address] Care Team Providers Name Role Phone Unavailable Primary Care Provider Unavailable Reason for Visit Reason Onset Date Comments Other 02/19/2021 fungal rash Encounter Details Date Type Department Care Team Description 02/19/2021 Telephone Hematology/Oncology at Barb Pichardo RN Other (fungal rash) [address] [phone] Social History Tobacco Use Types Packs/Day Years Used Date Former Smoker Cigarettes 0.25 Quit: 06/2020 Smokeless Tobacco: Never Used Sex Assigned at Date Recorded Not on file documented as of this encounter Miscellaneous Notes Telephone Encounter - Barb Dennis RN - 02/19/2021 4:21 PM EDT Pt calls and states her fungal rash under right breast is quite large area and red. She has been using nystatin powder and cream but it is healing slowly. She spoke with her PCP who would like to put her on fluconazole but wanted to see if it was ok with Dr. Bhatia. Reviewed with Dr. Bhatia who agrees to put her on it for 6 days, 200 mg on first day then 100 mg daily for 5 more days. Pt is to hole ondansetron while on this medication, she can take her prochlorperazine if she is nauseated. Pt agrees with plan. documented in this encounter Plan of Treatment Upcoming Encounters Date Type Specialty Care Team Description 10/21/2022 Appointment Hematology and Oncology 10/21/2022 Hospital Encounter Radiology Adilene Link[address] MEDICAL ONCOLOGY [place], [place] [address] (Wo rk) 10/21/2022 Appointment Radiology Adilene Link[address] [address] (Wo rk) 10/21/2022 Appointment Radiology Adilene Link[address] [address] (Wo rk) 10/25/2022 Office Visit Hematology and Oncology Alberto Guy MD [facility] HEMATOLOGY/[place] [address] MEDICAL ONCOLOGY [place], [place] [phone] 11/09/2022 Office Visit Urology Bobo Davis MD [facility] UROLOGY [place], [place] [address] (Wo rk) documented as of this encounter Visit Diagnoses Diagnosis High risk medication use Encounter for long-term (current) use of other medications Urothelial carcinoma of kidney, right documented in this encounter
--- OUTSIDE RECORDS SUMMARY | 2022-10-07 18:42 | XMS_ITS | Encounter Summary ---
:1955 Author Organization [facility] Address [facility] [place] [address] Care Team Providers Name Role Phone Unavailable Primary Care Provider Unavailable Encounter Details Date Type Department Care Team Description 03/02/2021 Office Visit Hematology/Oncology Rah Shelton MD [facility] DR HEMATOLOGY/[place] [address] [facility]; [facility] CUSTOMER SERVICE REPRESENTATIVE TELLER [address] [place] [address] [place] [address] Urothelial carcinoma of kidney, right; [address] [place] [address] Drive Encounter for chemotherapy m anagement; [place], [place] Cancer of r enal pelvis, right [phone] Social History Tobacco Use Types Packs/Day Years Used Date Former Smoker Cigarettes 0.25 Quit: 06/2020 Smokeless Tobacco: Never Used Sex Assigned at Date Recorded Not on file documented as of this encounter Last Filed Vital Signs Vital Sign Reading Time Taken Comments Blood Pressure 144/56 03/02/2021 9:17 AM EDT Pulse 91 03/02/2021 9:17 AM EDT Temperature 35.8 ??C (96.5 ??F) 03/02/2021 9:17 AM EDT Respiratory Rate 16 03/02/2021 9:17 AM EDT Oxygen Saturation 100% 03/02/2021 9:17 AM EDT Inhaled Oxygen Concentration - - Weight 92.5 kg (204 lb) 03/02/2021 9:17 AM EDT Height 160 cm (5' 2.99) 03/02/2021 9:17 AM EDT Body Mass Index 36.15 03/02/2021 9:17 AM EDT documented in this encounter Progress Notes Alberto Shelton MD - 03/02/2021 9:00 AM EDT Images from the original note were not included. No diagnosis found. Patient Active Problem List Diagnosis Code ??? [...] stress disorder) F43.10 ??? Urinary incontinence R32 HPI:Nancy Pichardo is 65 y.o. F referred [...] retroperitoneal lymph nodes on January 22 at [facility]. Pathology is pending. PET scan demonstrated increased FDG uptake at the sites of urothelial thickening in the right renal pelvis and enlarged avid right para-aortic lymph nodes. Nancy complains on low energy level, difficulties sleeping and right flank discomfort.Creatinine went up to 1.7 on December 30 from baseline creatinine of 0.5 in October 2019. INTERVAL history:- Nancy returns to the [facility] today for a second cycle of chemotherapy carboplatin and gemcitabine. She is accompanied by her Derek today. She developed pain like her abdomen was inflamed. She believes it is related stable urinary tract infection. She was seen by primary care doctor. Urine test was unrevealing. She is receiving empirical treatment with ofloxacin 250 mg twice a day for 5 days. Will finish it in 2 days. Today she feels better. Pain is well controlled. Her blood sugar is fluctuating. Now she has wearable blood sugar monitor. She denies any nausea or vomiting. Denies any fever or chills. No nausea today. PMH: No interval changes since last visit PTSD/depression, diabetes mellitus on insulin, arthritis, , hernia repair x3, anxiety, hysterectomy for urinary incontinence 2 to 3 years ago Social History: 32-webs-oces smoking history, quit 6 months ago, does [...] Medications: Your Medications Accurate as of March 02, 2021 9:25 AM. If you have any [...] mg Tab Commonly known as: Cipro Take 250 mg by mouth 2 times daily. 250 mg Refills: 0 docusate sodium 100 mg Cap [...] daily. 25 mg Refills: 0 STOPPED Medications cephALEXin 250 mg Cap Commonly known as: Keflex Stopped by: ALBERTO SHELTON MD fluconazole 100 mg Tab Commonly known as: Diflucan Stopped by: ALBERTO SHELTON MD Review of Systems Constitutional: Positive for appetite change. Negative for chills and fever. Eyes: Negative for icterus. Respiratory: Negative for cough and shortness of breath. Cardiovascular: Negative for chest pain and leg swelling. Genitourinary: Negative for difficulty urinating and hematuria. GI: Positive for mild nausea after chemotherapy Musculoskeletal: Positive for flank pain. Right flank pain Hematological: Negative for adenopathy. OBJECTIVE: Physical Exam [...] Thought content normal. Judgment: Judgment normal. BP 144/56 (Patient Position: Sitting) Pulse 91 Temp 35.8 ??C (96.5 ??F) (Temporal) Resp 16 Ht 160 cm (5' 2.99) Wt 92.5 kg (204 lb) SpO2 100% BMI 36.15 kg/m?? Wt Readings from Last 3 Encounters: 03/02/21 92.5 kg (204 lb) 02/16/21 91.2 kg (201 lb) 02/10/21 93.4 kg (206 lb) Pathology: 01/22/21 retroperitoneal lymph node biopsy: A. LYMPH NODE, RETROPERITONEUM, CT-GUIDED CORE NEEDLE BIOPSY: - Positive for carcinoma, favor urinary bladder primary, high-grade. See comment. 12/25/2020 urine: High-grade urothelial carcinoma with superimposed abundant degenerative changes Labs: 03/02/2021 WBC 3.98, hemoglobin 9.3, platelet count 411, ANC 2.28, CMP is pending potassium 4.8, sodium 137, BUN 41, creatinine 1.6, magnesium 2.1, alkaline phosphatase 115, total protein 7, albumin 2.6. 02/16/2021 WBC 4.77, hemoglobin 11, platelet count 285, ANC 3.51, sodium 137, potassium 4.6, BUN 49, creatinine 1.4, glucose 165, calcium 8.6, magnesium 2.3, TB 0.2, AST 18, ALT 31, alkaline [id number], total protein 7.5, albumin 2.6, 02/09/21- WBC-12.17 [...] to discuss surgical option particularly right nephroureterectomy. Received first cycle of carboplatin and gemcitabine last week. Tolerated treatment reasonably well with mild nausea and constipation. Her UA was unrevealing. She has been empirically treated for UTI with ciprofloxacin. We discussed postponing chemotherapy for 1 week to complete ciprofloxacin. She would like to proceed with second cycle today. I think it is okay as she is clinically asymptomatic and still covered with antibiotics. Onthe top of that it is not clear if she actually had UTI. Your white cell count is trending down. I discussed risk and benefits of Neulasta on top. We will add day #8 #Right hydronephrosis: Creatinine is 1.4, stable Creatinine 1.4-1.7, status post right ureteral stent placement: December 23. # UTI- #COVID-19 vaccine: We discussed pros and cons of vaccination. I recommended to get vaccinated as soon as possible. PLAN: 1. Carboplatin AUC 5 gemcitabine 1,000 mg/m2 Day 1 today 2. Next visit in 1 weeks with blood work and gemcitabine day #8 with Neulasta support The plan was discussed with patient in details. All questions were answered to patient satisfaction documented in this encounter Miscellaneous Notes Addendum Note - Alberto Shelton MD - 03/02/2021 9:00 AM EDT Addended by: ALBERTO SHELTON on: 03/02/2021 10:08 AM Modules accepted: Orders documented in this encounter Plan of Treatment Upcoming Encounters Date Type Specialty Care Team Description 10/21/2022 Appointment Hematology and Oncology 10/21/2022 Hospital Encounter Radiology Adilene Link, [address] [address] (Wo rk) 10/21/2022 Appointment Radiology Adilene Link [address] [address] (Wo rk) 10/21/2022 Appointment Radiology Adilene Link[address] MEDICAL ONCOLOGY [place], [place] [phone] (Wo rk) 10/25/2022 Office Visit Hematology and Oncology Alberto Guy MD [facility] DR HEMATOLOGY/[place] [address] [address] MEDICAL ONCOLOGY [place], [place] [phone] 11/09/2022 Office Visit Urology Bobo Davis MD [facility] DR UROLOGY [place], [place] [address] (Wo rk) documented as of this encounter Visit Diagnoses Diagnosis High risk medication use Encounter for long-term (current) use of other medications Urothelial carcinoma of kidney, right Encounter for chemotherapy management Cancer of renal pelvis, right documented in this encounter
--- OUTSIDE RECORDS SUMMARY | 2022-10-07 18:42 | XMS_ITS | Encounter Summary ---
:1955 Author Organization [facility] [place] [address] Care Team Providers Name Role Phone Unavailable Primary Care Provider Unavailable Reason for Visit Reason Comments Chemotherapy Carbo/Gemzar, Cycle 1, Day 1 Treatment/Therapy Plan Authorization (Routine) - Specialty Diagnoses / Procedures Referred By Contact Refer red To Contact Diagnoses Urothelial carcinoma of kidney, right Malignant neoplasm of urinary bladder, unspecified site Neutropenia, drug-induced Alberto Bhatia MD [facility] Hem Onc Office Procedures TC PALONOSETRON HCL, 25MCG, INJECTION (ALOXI) TC APREPITANT, 1 MG, INJECTION [address] HEMATOLOGY/[place] [phone] Fax: Referral ID Status Reason Start Date Expiration Date Visits V isits Requested Authorized [id number] 02/05/2021 12/19/2021 99 99 Encounter Details Date Type Department Care Team Description 02/10/2021 Infusion Hematology Oncology at [facility] othelial carcinoma of kidney, right; [facility] Malignant neoplasm of urinar y bladder, unspecified site [address] [place] [phone] Social History Tobacco Use Types Packs/Day Years Used Date Former Smoker Cigarettes 0.25 Quit: 06/2020 Smokeless Tobacco: Never Used Sex Assigned at Date Recorded Not on file documented as of this encounter Progress Notes Tiana Harris RN - 02/10/2021 10:00 AM EDT INFUSION THERAPY ADMINISTRATION NOTES DIAGNOSIS: Urothelial cancer CYCLE #1, Day 1 REASON FOR VISIT: Carbo/Gemzar infusion SUBJECTIVE Nancy offers no complaints. OBJECTIVE LAB DATA: WNL from 02/09/21; Seen by Adilene Link APRN prior to visit & cleared for treatmentl. IV ACCESS: PIV Pre administration: Chemotherapy orders independently verified for drug name, route, and dosage per patient's height, weight and BSA by TIANA HARRIS RN & On-site pharmacist. REACTIONS (DESCRIPTION, TIME, INTERVENTION AND EFFECTIVENESS) none ASSESSMENT Nancy c/o feeling slightly queasy and took Compazine 10 mg by mouth. Accompanied to car by this staff member. PLAN Return to clinic as scheduled. Pt. chemo teaching instructions included: During clinic hours (8am-5pm Monday-Monday): pt. can call [phone] with questions or concerns. After clinic hours (5pm-8am Monday-Monday and weekends) pt can call [phone] and ask for the insurance verification representative/oncologist patrol conductor. Nancy Pichardo verbalized understanding of potential chemotherapy side effects and home care including but not limited to- handwashing to prevent infection, signs and symptoms of low blood counts (fever, fatigue, bleeding), to call with a fever of 100.4 or greater, any significant constipation/diarrhea, importance of nutrition and fluid intake (drinking at least 32-64 ounces of non-caffeinated beverages/day), mouth care. Nancy Pichardo verbalized understanding of how to take prescription medications given for home use after chemotherapy. documented in this encounter Plan of Treatment Upcoming Encounters Date Type Specialty Care Team Description 10/21/2022 Appointment Hematology and Oncology 10/21/2022 Hospital Encounter Radiology Adilene Link APRN [address] [place] [address] DR MEDICAL ONCOLOGY [place], [place] [phone] (Kwadwo morataya) 10/21/2022 Appointment Radiology Adilene Link APRN [address] [place] [address] DR MEDICAL ONCOLOGY [place], [place] [phone] (Wo rk) 10/21/2022 Appointment Radiology Adilene Link[address] MEDICAL ONCOLOGY [place], [place] [phone] (Wo rk) 10/25/2022 Office Visit Hematology and Oncology Alberto Guy MD [facility] DR HEMATOLOGY/[place] [address] [address] MEDICAL ONCOLOGY [place], [place] [phone] 11/09/2022 Office Visit Urology Bobo Davis MD [facility] DR UROLOGY [place], [place] [address] (Wo rk) documented as of this encounter Visit Diagnoses Diagnosis Urothelial carcinoma of kidney, right Malignant neoplasm of urinary bladder, u nspecified site documented in this encounter Administered Medications Inactive Administered Medications - up to 3 most recent administrations Medication Order MAR Action Action Date Dose Rate Site aprepitant (CINVANTI) injection Given 02/10/2021 10:14 AM EDT 13 0 mg Emul 130 mg 130 mg, Intravenous, ONCE, 1 dose, On Mon02/10/21 at 1015, Alternative administration of IV push over 2 minutes is a recommendation from the settlement agent. Administer prior to chemotherapy., Routine CARBOplatin (Paraplatin) 369 mg New Bag 02/10/2021 10:40 AM ED T 369 mg 573.8 mL/hr in dextrose 5% 286.9 mL infusion 369 mg (rounded from 368.5 mg, Target AUC = 5), Intravenous, ONCE, 1 dose, On Mon02/10/21 at 1115, Administer over 30 Minutes, Warning Vesicant/Irritant Medication dexamethasone (Decadron) tablet 10 mg Given 02/10/2021 10:13 AM EDT 10 mg 10 mg, Oral, ONCE, 1 dose, On Mon02/10/21 at 1015, Administer prior to chemotherapy, Routine GEMcitabine 2,000 mg in sodium New Bag 02/10/2021 11:25 AM EDT 2,000 mg 605.2 mL/hr chloride 0.9% 302.6 mL infusion 2,000 mg, Intravenous, ONCE, 1 dose, On Mon02/10/21 at 1115, Administer over 30 Minutes, Warning Vesicant/Irritant Medication Dose Ordered = 2050 mg (1000 mg/m2). Pharmacist rounded dose per procedure. palonosetron (Aloxi) (0.25 mg/mL) injection Given 01/25 10:14 AM EDT 0.25 mg 0.25 mg 0.25 mg, Intravenous, ONCE, 1 dose, On Mon02/10/21 at 1015, Administer over 30 seconds. Administer prior to chemotherapy, Routine sodium chloride 0.9% infusion New Bag 02/10/2021 10:14 AM EDT 100 mL/hr 100 mL/hr 100 mL/hr, Intravenous, CONTINUOUS, Starting on Mon02/10/21 at 1015, Until Mon02/10/21 at 1420 documented in this encounter
--- OUTSIDE RECORDS SUMMARY | 2022-10-07 18:42 | XMS_ITS | Encounter Summary ---
:1955 Author Organization [facility] [place] [address] Care Team Providers Name Role Phone Unavailable Primary Care Provider Unavailable Encounter Details Date Type Department Care Team Description 02/09/2021 Telephone Urology at [facility] Bobo Davis MD [facility] [place] [address] UROLOGY [phone] [place], [place] [address] (Wo rk) Social History Tobacco Use Types Packs/Day Years Used Date Former Smoker Cigarettes 0.25 Quit: 06/2020 Smokeless Tobacco: Never Used Sex Assigned at Date Recorded Not on file documented as of this encounter Miscellaneous Notes Telephone Encounter - Bobo Davis MD - 02/09/2021 7:31 AM EDT 7:30am Tried to call patient no answer. Reviewing request looks like most of these items medical oncology issues. I will forward to the medical oncology team and be happy to follow up as necessary Pt calls with concerns of swollen feet, not feeling right over her right kidney, feel tight, no fevers or chills. (pt had right stent placed by Dr. Renner in past). Pt due to start chemotherapy on february 10 at 9am. (pt upset with this time thought is was February 09, had her speak with electrician supervisor airplane Candace Gonzales RN about this date). Reviewed information with Adilene Link NP who is covering for Dr. Bhatia and she would like Taylor talk with Dr. Davis about this. Nancy given Dr. Davis's number she said she would call him. Bobo Davis documented in this encounter Plan of Treatment Upcoming Encounters Date Type Specialty Care Team Description 10/21/2022 Appointment Hematology and Oncology 10/21/2022 Hospital Encounter Radiology Adilene Link[address] MEDICAL ONCOLOGY [place], [place] [phone] (Wo rk) 10/21/2022 Appointment Radiology Adilene Link[address] ONCOLOGY [place], [place] [phone] (Wo rk) 10/21/2022 Appointment Radiology Adilene Link[address] MEDICAL ONCOLOGY [place], [place] [phone] (Wo rk) 10/25/2022 Office Visit Hematology and Oncology Alberto Guy MD [facility] DR HEMATOLOGY/[place] [address] Adilene Link [address] MEDICAL ONCOLOGY [place], [place] [phone] 11/09/2022 Office Visit Urology Bobo Davis MD [facility] DR UROLOGY [place], [place] [address] (Wo rk) documented as of this encounter Visit Diagnoses Not on filedocumented in this encounter
--- OUTSIDE RECORDS SUMMARY | 2022-10-07 18:42 | XMS_ITS | Encounter Summary ---
:1955 Author Organization [place] [address] Care Team Providers Name Role Phone Unavailable Primary Care Provider Unavailable Reason for Visit Reason Onset Date Comments Questions 02/23/2021 Encounter Details Date Type Department Care Team Description 02/23/2021 [facility] [address] [place] [phone] Social History Tobacco Use Types Packs/Day Years Used Date Former Smoker Cigarettes 0.25 Quit: 06/2020 Smokeless Tobacco: Never Used Sex Assigned at Date Recorded Not on file documented as of this encounter Miscellaneous Notes Telephone Encounter - Uriel Oliva RN - 02/23/2021 9:26 AM EDT Nuno from [facility] called reporting Nancy Pichardo called them with c/o dysuria and bilateral kidney pain which started yesterday. No fevers noted. Pt believes she has a UTI. Advised they should check a UA and treat accordingly. Updated our team. ----- Message from Zechariah Bacon sent at 02/23/2021 8:29 AM EDT ----- Regarding: Please call [facility] re this pt Please call Nuno at [facility] re: pt. Pt is thinks she has a uti and wants meds and testing but they wanted to consult with us first [phone] documented in this encounter Plan of Treatment Upcoming Encounters Date Type Specialty Care Team Description 10/21/2022 Appointment Hematology and Oncology 10/21/2022 Hospital Encounter Radiology Adilene Link[address] MEDICAL ONCOLOGY [place], [place] [address] (Wo rk) 10/21/2022 Appointment Radiology Adilene Link[address] MEDICAL ONCOLOGY [place], [place] [address] (Wo rk) 10/21/2022 Appointment Radiology Adilene Link[address] MEDICAL ONCOLOGY [place], [place] [address] (Wo rk) 10/25/2022 Office Visit Hematology and Oncology Alberto Guy MD [facility] HEMATOLOGY/[place] [address] [address] MEDICAL ONCOLOGY [place], [place] [address] 11/09/2022 Office Visit Urology Bobo Davis MD [facility] UROLOGY [place], [place] [address] (Wo rk) documented as of this encounter Visit Diagnoses Not on filedocumented in this encounter
--- OUTSIDE RECORDS SUMMARY | 2022-10-07 18:42 | XMS_ITS | Encounter Summary ---
:1955 Author Organization [facility] Address [facility] [place] [address] Care Team Providers Name Role Phone Unavailable Primary Care Provider Unavailable Encounter Details Date Type Department Care Team Description 12/25/2020 Ancillary Procedure Radiology Library at Lakhwinder Lozoya [facility] [address] [phone] Social History Tobacco Use Types Packs/Day Years Used Date Current Some Day Smoker Cigarettes 0.25 Smokeless Tobacco: Never Used Sex Assigned at Date Recorded Not on file documented as of this encounter Plan of Treatment Upcoming Encounters Date Type Specialty Care Team Description 10/21/2022 Appointment Hematology and Oncology 10/21/2022 Hospital Encounter Radiology Adilene Link[address] MEDICAL ONCOLOGY [place], [place] [phone] (Wo rk) 10/21/2022 Appointment Radiology Adilene Link [address] MEDICAL ONCOLOGY [place], [place] [phone] (Wo rk) 10/21/2022 Appointment Radiology Adilene Link[address] MEDICAL ONCOLOGY [place], [place] [phone] (Wo rk) 10/25/2022 Office Visit Hematology and Oncology Alberto Guy MD [facility] DR HEMATOLOGY/[place] [address] Adilene Link, GENERAL LABOR[address] [place] [address] 11/09/2022 Office Visit Urology Bobo Davis MD [facility] UROLOGY [place], [place] [address] (Wo rk) documented as of this encounter Procedures Procedure Name Priority Date/Time Associated Diagnosis Comme nts FILM LIBRARY Routine 12/25/2020 12:00 AM Results for this STORAGE ONLY DX EST procedure ar e in ABDOMEN the results section. documented in this encounter Results Film Library- Storage Only DX Abdomen (12/25/2020 12:00 AM EST) Specimen (Source) Anatomical Location Collection Method / Collectio n Time Received Time / Laterality Volume Narrative LAISHA LA - 01/21/2021 4:15 PM EST This exam is auto-finalizing. It's purpo se is for storage only. Zenon Lozoya MD IMG FILM LIBRARY ORDERABLES Performing Organization Address City/State/ZIP Code Phon e Number BESSIE BESSIE [place], [place] documented in this encounter Visit Diagnoses Not on filedocumented in this encounter
--- OUTSIDE RECORDS SUMMARY | 2022-10-07 18:42 | XMS_ITS | Encounter Summary ---
:1955 Author Organization [facility] [place] [address] Care Team Providers Name Role Phone Unavailable Primary Care Provider Unavailable Reason for Visit Reason Onset Date Comments Other 02/24/2021 continuous glucose m onitor Encounter Details Date Type Department Care Team Description 02/24/2021 Telephone Hematology/Oncology at Barb Dennis RN Other (continuous [facility] glucose monitor) [address] [place] [phone] Social History Tobacco Use Types Packs/Day Years Used Date Former Smoker Cigarettes 0.25 Quit: 06/2020 Smokeless Tobacco: Never Used Sex Assigned at Date Recorded Not on file documented as of this encounter Miscellaneous Notes Telephone Encounter - Barb Dennis RN - 02/24/2021 3:52 PM EDT Elle wind turbine engineer from PCP office called and wanted to know if there was any issue with pt going on to continuous glucose monitoring. (patch on arm with catheter in interstitial area for 14 days alarm goes off if sugar too low). I was unaware of any issue but told her I would review with Dr. Bhatia and call her back if he had any concerns. She agreed with plan. Elle also requested that blankmaker speak to pt about what foods she can eat. Message sent to Tanesha who will follow up with pt. documented in this encounter Plan of Treatment Upcoming Encounters Date Type Specialty Care Team Description 10/21/2022 Appointment Hematology and Oncology 10/21/2022 Hospital Encounter Radiology Adilene Link[address] MEDICAL ONCOLOGY [place], [place] [address] (Wo rk) 10/21/2022 Appointment Radiology Adilene Link[address] ONCOLOGY [place], [place] [address] [phone] (Wo rk) 10/21/2022 Appointment Radiology Adilene Link[address] MEDICAL ONCOLOGY [place], [place] [address] (Wo rk) 10/25/2022 Office Visit Hematology and Oncology Alberto Guy MD [facility] DR HEMATOLOGY/[place] [address] [address] MEDICAL ONCOLOGY [place], [place] [address] 11/09/2022 Office Visit Urology Bobo Davis MD [facility] UROLOGY [place], [place] [address] (Wo rk) documented as of this encounter Visit Diagnoses Not on filedocumented in this encounter
--- OUTSIDE RECORDS SUMMARY | 2022-10-07 18:42 | XMS_ITS | Encounter Summary ---
:1955 Author Organization [facility] [place] [address] Care Team Providers Name Role Phone Unavailable Primary Care Provider Unavailable Reason for Visit Reason Comments Chemotherapy Cycle 1; Day 8 Gemzar Treatment/Therapy Plan Authorization (Routine) - Specialty Diagnoses / Procedures Referred By Contact Refer red To Contact Diagnoses Urothelial carcinoma of kidney, right Malignant neoplasm of urinary bladder, unspecified site Neutropenia, drug-induced Alberto Bhatia MD [facility] Hem Onc Office Procedures TC PALONOSETRON HCL, 25MCG, INJECTION (ALOXI) TC APREPITANT, 1 MG, INJECTION [address] HEMATOLOGY/[place] [phone] Fax: Referral ID Status Reason Start Date Expiration Date Visits V isits Requested Authorized [id number] 02/05/2021 12/19/2021 99 99 Encounter Details Date Type Department Care Team Description 02/16/2021 Infusion Hematology Oncology at [facility] othelial carcinoma of kidney, right; [facility] Malignant neoplasm of urinar y bladder, unspecified site [address] [place] [phone] Social History Tobacco Use Types Packs/Day Years Used Date Former Smoker Cigarettes 0.25 Quit: 06/2020 Smokeless Tobacco: Never Used Sex Assigned at Date Recorded Not on file documented as of this encounter Progress Notes Smita Pringle RN - 02/16/2021 11:00 AM EDT INFUSION THERAPY ADMINISTRATION NOTES DIAGNOSIS: Urothelial Carcinoma CYCLE # 1; Day #8 REASON FOR VISIT: Gemzar infusion SUBJECTIVE Nancy Pichardo offers no complaints. OBJECTIVE LAB DATA: WNL for treatment today, reviewed by MD at office visit. IV ACCESS: PIV inserted in right forearm, + flush and blood return Pre administration: Chemotherapy orders independently verified for drug name, route, and dosage per patient's height, weight and BSA by Smita Pringle RN & onsite pharmacist. REACTIONS (DESCRIPTION, TIME, INTERVENTION AND EFFECTIVENESS) none ASSESSMENT Nancy Pichardo was awake, alert and tolerated treatment well. PLAN Return to clinic per routine. documented in this encounter Plan of Treatment Upcoming Encounters Date Type Specialty Care Team Description 10/21/2022 Appointment Hematology and Oncology 10/21/2022 Hospital Encounter Radiology Adilene Link[address] MEDICAL ONCOLOGY [place], [place] [phone] (Wo rk) 10/21/2022 Appointment Radiology Adilene Link[address] [place] [address] (Wo rk) 10/21/2022 Appointment Radiology Adilene Link[address] [place] [address] (Wo rk) 10/25/2022 Office Visit Hematology and Oncology Alberto Guy MD [facility] HEMATOLOGY/[place] [address] [address] [place] [address] 11/09/2022 Office Visit Urology Bobo Davis MD [facility] UROLOGY [place], [place] [address] (Wo rk) documented as of this encounter Visit Diagnoses Diagnosis Urothelial carcinoma of kidney, right Malignant neoplasm of urinary bladder, u nspecified site documented in this encounter Administered Medications Inactive Administered Medications - up to 3 most recent administrations Medication Order MAR Action Action Date Dose Rate Site GEMcitabine 2,000 mg in New Bag 02/16/2021 12:49 PM 2,000 mg 605 .2 mL/hr sodium chloride 0.9% 302.6 EDT mL infusion 2,000 mg, Intravenous, ONCE, 1 dose, On Mon02/16/21 at 1300, Administer over 30 Minutes, Warning Vesicant/Irritant Medication Dose Ordered = 2050 mg (1000 mg/m2). Pharmacist rounded dose per procedure. ondansetron (Zofran) tablet 8 mg Given 02/16/2021 11:45 AM EDT 8 mg 8 mg, Oral, ONCE, 1 dose, On Mon02/16/21 at 1200, Administer prior to chemotherapy, Routine sodium chloride 0.9% infusion New Bag 02/16/2021 11:30 AM EDT 100 mL/hr 100 mL/hr 100 mL/hr, Intravenous, CONTINUOUS, Starting on Mon02/16/21 at 1200, Until Mon02/16/21 at 1531 documented in this encounter
--- OUTSIDE RECORDS SUMMARY | 2022-10-07 18:42 | XMS_ITS | Encounter Summary ---
:1955 Author Organization [facility] [place] [address] Care Team Providers Name Role Phone Unavailable Primary Care Provider Unavailable Reason for Visit Reason Onset Date Comments Care Plan 01/29/2021 Encounter Details Date Type Department Care Team Description 01/29/2021 Telephone Hematology Oncology at Ledy Franklin RN Care Plan [address] [phone] Social History Tobacco Use Types Packs/Day Years Used Date Former Smoker Cigarettes 0.25 Quit: 06/2020 Smokeless Tobacco: Never Used Sex Assigned at Date Recorded Not on file documented as of this encounter Miscellaneous Notes Telephone Encounter - Ledy Franklin RN - 01/29/2021 3:53 PM EST Nancy called wondering if Dr Bhatia had a plan for moving forward since getting her biopsy results. msg from Dr. Bhatia below CBC , CMP and magnesium. She will talk to urologist Dr. Davis on 02/04 after that we either start chemotherapy on 02/09 + chemo teaching or if Dr. Davis feels that surgery upfront possible then she may be treated with chemo after. Please go ahead with blood work, but we have to wait until she sees Dr. Davis to finalize the plan. I relayed this msg to Nancy and she was very pleased to know this plan. We have set her up to have labs drawn at [facility] on Monday at 1000. She agreed and was happy with the call back. documented in this encounter Plan of Treatment Upcoming Encounters Date Type Specialty Care Team Description 10/21/2022 Appointment Hematology and Oncology 10/21/2022 Hospital Encounter Radiology Adilene Link[address] MEDICAL ONCOLOGY [place], [place] [address] (Wo rk) 10/21/2022 Appointment Radiology Adilene Link[address] MEDICAL ONCOLOGY [place], [place] [address] (Wo rk) 10/21/2022 Appointment Radiology Adilene Link[address] ONCOLOGY [place], [place] [phone] (Wo rk) 10/25/2022 Office Visit Hematology and Oncology Alberto Guy MD [facility] DR HEMATOLOGY/[place] [address] [address] MEDICAL ONCOLOGY [place], [place] [address] 11/09/2022 Office Visit Urology Bobo Davis MD [facility] DR UROLOGY [place], [place] [address] (Wo rk) documented as of this encounter Visit Diagnoses Diagnosis Malignant neoplasm of urinary bladder, u nspecified site documented in this encounter
--- OUTSIDE RECORDS SUMMARY | 2022-10-07 18:42 | XMS_ITS | Encounter Summary ---
:1955 Author Organization [facility] Address [address] [place] [address] Care Team Providers Name Role Phone Unavailable Primary Care Provider Unavailable Reason for Visit - Closed Specialty Diagnoses / Procedures Referred By Contact Refer red To Contact Procedures Zenon Lozoya MD Film Library- Storage Only [address] Pet / [place] [phone] Referral ID Status Reason Start Date Expiration Date Visits Requ ested Visits Authorized [id number] Closed 02/03/2021 02/03/2022 1 1 Encounter Details Date Type Department Care Team Description 01/06/2021 Ancillary Procedure Radiology Library at Lakhwinder Lozoya [facility] [place] [address] [phone] Social History Tobacco Use Types Packs/Day Years Used Date Current Some Day Smoker Cigarettes 0.25 Smokeless Tobacco: Never Used Sex Assigned at Date Recorded Not on file documented as of this encounter Plan of Treatment Upcoming Encounters Date Type Specialty Care Team Description 10/21/2022 Appointment Hematology and Oncology 10/21/2022 Hospital Encounter Radiology Adilene Link [address] MEDICAL ONCOLOGY [place], [place] [phone] (Wo rk) 10/21/2022 Appointment Radiology Adilene Link [address] MEDICAL ONCOLOGY [place], [place] [phone] (Wo rk) 10/21/2022 Appointment Radiology Adilene Link[address] MEDICAL ONCOLOGY [place], [place] [phone] (Wo rk) 10/25/2022 Office Visit Hematology and Oncology Alberto Guy MD [facility] DR HEMATOLOGY/[place] [address] [address] MEDICAL ONCOLOGY [place], [place] [phone] 11/09/2022 Office Visit Urology Bobo Davis MD [facility] UROLOGY [place], [place] [address] (Wo rk) documented as of this encounter Procedures Procedure Name Priority Date/Time Associated Diagnosis Comme nts FILM LIBRARY Routine 01/06/2021 12:00 AM Results for this STORAGE ONLY NM EST procedure ar e in PET/CT the results section. documented in this encounter Results Film Library- Storage Only NM Pet / CT (01/06/2021 12:00 AM EST) Specimen (Source) Anatomical Location Collection Method / Collectio n Time Received Time / Laterality Volume Narrative RAD - 02/03/2021 7:07 PM EST This exam is auto-finalizing. It's purpo se is for storage only. Zenon Lozoya MD IMG FILM LIBRARY ORDERABLES Performing Organization Address City/State/ZIP Code Phon e Number [place], [place] documented in this encounter Visit Diagnoses Not on filedocumented in this encounter
--- OUTSIDE RECORDS SUMMARY | 2022-10-07 18:42 | XMS_ITS | Encounter Summary ---
:1955 Author Organization [facility] [place] [address] Care Team Providers Name Role Phone Unavailable Primary Care Provider Unavailable Reason for Visit Reason Onset Date Comments Other 02/03/2021 Encounter Details Date Type Department Care Team Description 02/03/2021 Telephone Hematology/Oncology at Barb Pichardo RN Other [address] [phone] Social History Tobacco Use Types Packs/Day Years Used Date Former Smoker Cigarettes 0.25 Quit: 06/2020 Smokeless Tobacco: Never Used Sex Assigned at Date Recorded Not on file documented as of this encounter Miscellaneous Notes Telephone Encounter - Barb Dennis RN - 02/03/2021 2:47 PM EST Nancy asked to speak to nursing after receiving phone call from secretaries on time of her first chemotherapy infusion. She states she is more and more tired and wants to know plan. She is concerned Dr. Davis and Dr. Bhatia are not communicating plan to each other. Explained Dr. Bhatia want herto start chemotherapy next mon. 02/10 at 9 am. Reviewed times and that she will need run. Reviewed she can eat normal and take all her normal pills. She is concerned about getting dexamethasone for a premed as she is a diabetic. Tried to explain things to her and reassure her but she just wanted to talk with Dr. Bhatia. Message sent to Dr. Bhatia and he will call her as soon as he is able. This w as told to pt. documented in this encounter Plan of Treatment Upcoming Encounters Date Type Specialty Care Team Description 10/21/2022 Appointment Hematology and Oncology 10/21/2022 Hospital Encounter Radiology Adilene Link[address] MEDICAL ONCOLOGY [place], [place] [address] (Wo rk) 10/21/2022 Appointment Radiology Adilene Link[address] MEDICAL ONCOLOGY [place], [place] [address] (Wo rk) 10/21/2022 Appointment Radiology Adilene Link[address] ONCOLOGY [place], [place] [phone] (Wo rk) 10/25/2022 Office Visit Hematology and Oncology Alberto Guy MD [facility] DR HEMATOLOGY/[place] [address] MEDICAL ONCOLOGY [place], [place] [phone] 11/09/2022 Office Visit Urology Bobo Davis MD [facility] DR UROLOGY [place], [place] [address] (Wo rk) documented as of this encounter Visit Diagnoses Not on filedocumented in this encounter
--- OUTSIDE RECORDS SUMMARY | 2022-10-07 18:42 | XMS_ITS | Encounter Summary ---
:1955 Author Organization [facility] Address [facility] [place] [address] Care Team Providers Name Role Phone Unavailable Primary Care Provider Unavailable Encounter Details Date Type Department Care Team Description 02/09/2021 Telephone Urology at [facility] Sandip Giron MD [facility] [place] [address] UROLOGY DEPT [phone] [place], [place] [address] (Wo rk) Social History Tobacco Use Types Packs/Day Years Used Date Former Smoker Cigarettes 0.25 Quit: 06/2020 Smokeless Tobacco: Never Used Sex Assigned at Date Recorded Not on file documented as of this encounter Miscellaneous Notes Telephone Encounter - Sandip Giron MD - 02/09/2021 6:48 PM EDT I received a call from the [facility] ER. Patient with R upper tract UCC and stent in place with worsening right flank pain. Declines pain meds in ER. WBC and Creat stable compared to priors. U/a with many RBC/WBC/bacteria, negative nitrite, culture pending. No fevers / chills, no concern for her being septic. CT scan reveals relatively mild increase in pre-existing hydro compared to scan from 01/22. I discussed options with the ER provider: - transfer to [facility] would have to be to ED due to lack of beds and she would have to stay in ER untilwe can replace the stent - given that there is no concern for pyelo and her labs are stable, this stent exchange is not emergent and we could also plan to empirically treat her with abx for presumed UTI, f/u cultures, and workon putting her on for elective stent exchange within the next week or so ER provider felt the latter option would be the better approach, but will call back if the patients prefers otherwise. Dr. Davis: can you work on adding her on for stent replacement soon? Thanks! documented in this encounter Plan of Treatment Upcoming Encounters Date Type Specialty Care Team Description 10/21/2022 Appointment Hematology and Oncology 10/21/2022 Hospital Encounter Radiology Adilene Link[address] MEDICAL ONCOLOGY [place], [place] [phone] (Wo rk) 10/21/2022 Appointment Radiology Adilene Link[address] ONCOLOGY [place], [place] [address] [phone] (Wo rk) 10/21/2022 Appointment Radiology Adilene Link[address] [address] (Wo rk) 10/25/2022 Office Visit Hematology and Oncology Alberto Guy MD [facility] DR HEMATOLOGY/[place] [address] [address] MEDICAL ONCOLOGY [place], [place] [address] [phone] 11/09/2022 Office Visit Urology Bobo Davis MD [facility] UROLOGY [place], [place] [address] (Wo rk) documented as of this encounter Visit Diagnoses Not on filedocumented in this encounter
--- OUTSIDE RECORDS SUMMARY | 2022-10-07 18:42 | XMS_ITS | Encounter Summary ---
:1955 [place] [address] Care Team Providers Name Role Phone Nancy Reynaga MD Primary Care Provider Encounter Details Date Type Department Care Team Description 12/24/2010 - Hospital Encounter 1 [facility] Rambo Calvertmustapha Nish, 12/27/2010 [facility] [place], [place] GYNECOLOGY [id number] ONCOLOGY [phone] [place], [place] [address] Social History Tobacco Use Types Packs/Day Years Used Date Never Assessed Sex Assigned at Date Recorded Not on file documented as of this encounter Last Filed Vital Signs Vital Sign Reading Time Taken Comments Blood Pressure - - Pulse - - Temperature - - Respiratory Rate - - Oxygen Saturation - - Inhaled Oxygen Concentration - - Weight 86 kg (189 lb 9.5 oz) 12/21/2010 4:04 PM EST Height 160 cm (5' 2.99) 12/21/2010 4:04 PM EST Body Mass Index 33.6 12/21/2010 4:04 PM EST documented in this encounter Medications at Time of Discharge Medication Sig Dispensed Refills Start Date End Date metFORMIN (GLUCOPHAGE) 1000mg, PO, Twice 0 201001/26/2021 1,000 mg tablet daily INSULIN 0 12/27/2010 01/26/2021 GLARGINE,HUM.REC.ANLOG (LANTUS SUBQ) loratadine (CLARITIN) 10 mg 0 12/27/19 11 01/26/2021 tablet Mometasone (NASONEX) 50 0 12/27/2010 0 01/26/2021 mcg/Actuation [place] sertraline (ZOLOFT) 100 mg 0 1 07/17/2019 tablet divalproex (DEPAKOTE) 500 0 12/27/2010 01/26/2021 mg EC tablet NAPROXEN SODIUM (ALEVE 0 12/27/2010 ORAL) INSULIN ASPART (NOVOLOG 0 12/27/2010 0 01/26/2021 SUBQ) docusate sodium (COLACE) 100 MG = 1 0 12/27/2010 01/26/2021 100 mg capsule Capsule(s), PO, Twice daily HYDROmorphone (DILAUDID) 2 2 M-2 0 1 07/17/2019 mg tablet Tablet(s), PO, Q4-6H ibuprofen (ADVIL;MOTRIN) 600 MG = 1 0 12/27/2010 01/26/2021 600 mg tablet Tablet(s), PO, Q6H documented as of this encounter Plan of Treatment Upcoming Encounters Date Type Specialty Care Team Description 10/21/2022 Appointment Hematology and Oncology 10/21/2022 Hospital Encounter Radiology Adilene Link[address] [facility] [place], [place] [phone] (Kwadwo rk) 10/21/2022 Appointment Radiology Adilene Link[address] [facility] [place], [place] [phone] (Wo rk) 10/21/2022 Appointment Radiology Adilene Link[address] [facility] [place], [place] [address] [phone] (Wo rk) 10/25/2022 Office Visit Hematology and Oncology Alberto Guy MD [facility] [address] HEMATOLOGY/[place] [address] [address] MEDICAL ONCOLOGY [place], [place] [phone] 11/09/2022 Office Visit Urology Bobo Davis MD [facility] UROLOGY [place], [place] [address] (Wo rk) documented as of this encounter Procedures Procedure Name Priority Date/Time Associated Comments Diagnosis POCT GLUCOSE Routine 12/27/2010 7:26 AM Results f or this EST procedure are i n the results section. POCT GLUCOSE Routine 12/27/2010 6:02 AM Results f or this EST procedure are i n the results section. DIFFERENTIAL, Routine 12/27/2010 2:25 AM Results for this AUTOMATED EST procedure are i n the results section. CREATININE Routine 12/27/2010 2:25 AM Results f or this EST procedure are i n the results section. CBC (WITH DIFF) Routine 12/27/2010 2:25 AM Result s for this EST procedure are i n the results section. BUN Routine 12/27/2010 2:25 AM Results f or this EST procedure are i n the results section. PHOSPHORUS Routine 12/27/2010 2:25 AM Results f or this EST procedure are i n the results section. MAGNESIUM Routine 12/27/2010 2:25 AM Results f or this EST procedure are i n the results section. ELECTROLYTES PANEL Routine 12/27/2010 2:25 AM Res ults for this EST procedure are i n the results section. POCT GLUCOSE Routine 12/26/2010 8:45 PM Results f or this EST procedure are i n the results section. POCT GLUCOSE Routine 12/26/2010 11:38 Results for this AM EST procedure are i n the results section. POCT GLUCOSE Routine 12/26/2010 8:01 AM Results f or this EST procedure are i n the results section. DIFFERENTIAL, Routine 12/26/2010 2:30 AM Results for this AUTOMATED EST procedure are i n the results section. CREATININE Routine 12/26/2010 2:30 AM Results f or this EST procedure are i n the results section. CBC (WITH DIFF) Routine 12/26/2010 2:30 AM Result s for this EST procedure are i n the results section. BUN Routine 12/26/2010 2:30 AM Results f or this EST procedure are i n the results section. PHOSPHORUS Routine 12/26/2010 2:30 AM Results f or this EST procedure are i n the results section. MAGNESIUM Routine 12/26/2010 2:30 AM Results f or this EST procedure are i n the results section. ELECTROLYTES PANEL Routine 12/26/2010 2:30 AM Res ults for this EST procedure are i n the results section. POCT GLUCOSE Routine 12/25/2010 11:48 Results for this PM EST procedure are i n the results section. POCT GLUCOSE Routine 12/25/2010 8:39 PM Results f or this EST procedure are i n the results section. POCT GLUCOSE Routine 12/25/2010 6:16 PM Results f or this EST procedure are i n the results section. POCT GLUCOSE Routine 12/25/2010 4:31 PM Results f or this EST procedure are i n the results section. POCT GLUCOSE Routine 12/25/2010 11:40 Results for this AM EST procedure are i n the results section. POCT GLUCOSE Routine 12/25/2010 5:01 AM Results f or this EST procedure are i n the results section. DIFFERENTIAL, Routine 12/25/2010 2:42 AM Results for this AUTOMATED EST procedure are i n the results section. CREATININE Routine 12/25/2010 2:42 AM Results f or this EST procedure are i n the results section. CBC (WITH DIFF) Routine 12/25/2010 2:42 AM Result s for this EST procedure are i n the results section. BUN Routine 12/25/2010 2:42 AM Results f or this EST procedure are i n the results section. PHOSPHORUS Routine 12/25/2010 2:42 AM Results f or this EST procedure are i n the results section. MAGNESIUM Routine 12/25/2010 2:42 AM Results f or this EST procedure are i n the results section. ELECTROLYTES PANEL Routine 12/25/2010 2:42 AM Res ults for this EST procedure are i n the results section. POCT GLUCOSE Routine 12/24/2010 7:07 PM Results f or this EST procedure are i n the results section. POCT GLUCOSE Routine 12/24/2010 4:12 PM Results f or this EST procedure are i n the results section. POCT GLUCOSE Routine 12/24/2010 10:41 Results for this AM EST procedure are i n the results section. NON-FURNITURE DUSTER FINAL REPORT Routine 12/24/2010 10:22 Res ults for this AM EST procedure are i n the results section. FROZEN SECTION REPORT Routine 12/24/2010 9:16 AM Results for this EST procedure are i n the results section. SURGICAL PATHOLOGY Routine 12/24/2010 9:16 AM Res ults for this REPORT EST procedure are i n the results section. POCT GLUCOSE Routine 12/24/2010 9:06 AM Results f or this EST procedure are i n the results section. POCT GLUCOSE Routine 12/24/2010 8:14 AM Results f or this EST procedure are i n the results section. POCT GLUCOSE Routine 12/24/2010 6:27 AM Results f or this EST procedure are i n the results section. documented in this encounter Results (ABNORMAL) POCT GLUCOMETER ORDER (LAB USE ONLY) (12/27/2010 7:26 AM EST) athologist Signature POC Glucose 119 (H) 70 - 110 CERNER mg/dL [facility] Comment: Supplemental ranges: <110 mg/dL before meals <200 mg/dL all other times of the day Specimen Anatomical Collection Method Collection Time Receive d Time (Source) Location / / Volume Laterality Blood specimen 12/27/2010 7:26 AM 011 7:26 (specimen) EST AM EST Javan Cerna MD POINT OF CARE TEST ORDERABLE S Performing Organization Address City/State/ZIP Code Phon e Number [address] [facility] (ABNORMAL) POCT GLUCOMETER ORDER (LAB USE ONLY) (12/27/2010 6:02 AM EST) athologist Signature POC Glucose 144 (H) 70 - 110 CERNER mg/dL [facility] Comment: Supplemental ranges: <110 mg/dL before meals <200 mg/dL all other times of the day Specimen Anatomical Collection Method Collection Time Receive d Time (Source) Location / / Volume Laterality Blood specimen 12/27/2010 6:02 AM 011 6:02 (specimen) EST AM EST Javan Cerna MD POINT OF CARE TEST ORDERABLE S Performing Organization Address City/State/ZIP Code Phon e Number [address] [facility] (12/27/2010 2:25 AM EST) P athologist Signature Neutrophils % 66.8 34.0 - CERNER 71.0 % [facility] Neutr Abs (ANC) 6.02 1.50 - CERNER 6.30 [facility] x10(3)/mcL Lymphocytes % 23.8 19.0 - CERNER 53.0 % [facility] Lymphocytes Abs 2.1 1.0 - 3.6 CERNER x10(3)/mcL [facility] Monocytes % 5.7 4.0 - 13.0 CERNER % [facility] Monocyte Abs 0.5 0.2 - 1.0 CERN[facility] x10(3)/mcL [facility] Eosinophils % 3.4 0.0 - 7.0 CERNER % [facility] Eosinophils Abs 0.3 0.0 - 0.5 C[facility]ER x10(3)/mcL [facility] Basophils % 0.2 0.0 - 2.0 CERNER % [facility] Basophils Abs 0.0 0.0 - 0.2 C[facility] x10(3)/mcL [facility] Immature Gran % 0.10 0.00 - CERNER 0.66 % [facility] Comment: Immature granulocytes(IG's)percentage an d absolute count will include metamyelocytes, myelocytes, and promyelo cytes. Blood smears from CBCs yielding IG's will be scanned manually for concor dance. If this scan disagrees with the automated IG or if promyelocytes are not ed, a manual differential will be performed. [place] Gran Abs 0.01 0.00 - 0.05 x10(3)/mcL CER NER [facility] Specimen Anatomical Collection Method Collection Time Receive d Time (Source) Location / / Volume Laterality Blood specimen 12/27/2010 2:25 AM 011 2:36 (specimen) EST AM EST Javan Cerna MD HEMATOLOGY ORDERABLES Performing Organization Address City/State/[place] [address] [facility] (ABNORMAL) CBC (12/27/2010 2:25 AM EST) athologist Signature WBC 9.0 4.0 - 10.0 CERNER x10(3)/mcL [facility] RBC 3.41 (L) 3.93 - CERNER 5.22 [facility] x10(6)/mcL Hemoglobin 10.3 (L) 11.2 - CERNER 15.7 gm/dL [facility] Hematocrit 33.2 (L) 34.0 - CERNER 45.0 % [facility] MCV 97.4 (H) 79.0 - CERNER 94.0 fL [facility] MCH 30.2 26.6 - CERNER 32.2 pg [facility] MCHC 31.0 (L) 32.0 - CERNER 36.5 gm/dL [facility] Platelets 188 145 - 370 CERNER x10(3)/mcL [facility] RDWSD 44.8 35.0 - CERNER 46.0 fL [facility] RDWCV 12.7 10.9 - CERNER 14.4 % [facility] MPV 11.3 9.0 - 12.0 CERNER fL [facility] Specimen Anatomical Collection Method Collection Time Receive d Time (Source) Location / / Volume Laterality Blood specimen 12/27/2010 2:25 AM 011 2:36 (specimen) EST AM EST Javan Cerna MD HEMATOLOGY ORDERABLES Performing Organization Address City/[facility]/ZIP Code Phon e Number [address] [facility] MAGNESIUM (12/27/2010 2:25 AM EST) P athologist Signature Magnesium 0.78 0.69 - 1.07 CERNER mmol/L [facility] Specimen Anatomical Collection Method Collection Time Receive d Time (Source) Location / / Volume Laterality Blood specimen 12/27/2010 2:25 AM 011 2:36 (specimen) EST AM EST Javan Cerna MD CHEMISTRY ORDERABLES Performing Organization Address City/[facility]/ZIP Code Phon e Number [address] [facility] PHOSPHORUS (12/27/2010 2:25 AM EST) P athologist Signature Phosphorus 2.9 2.5 - 4.5 CERNER mg/dL [facility] Specimen Anatomical Collection Method Collection Time Receive d Time (Source) Location / / Volume Laterality Blood specimen 12/27/2010 2:25 AM 01/31/2 011 2:36 (specimen) EST AM EST Javan Cerna MD CHEMISTRY ORDERABLES Performing Organization Address City/State/[place] [address] [facility] (ABNORMAL) CREATININE, SERUM (12/27/2010 2:25 AM EST) Analysis Performed At Patho logist Time Signature Creatinine 0.52 (L) 0.70 - CERNER 1.20 mg/dL [facility] Estimated GFR >60 >=60 CERNER [facility] Comment: The National Kidney Disease Education Pr ogram (NKDEP) has recommended all laboratories report estimated GFR (eGFR) along with plasma creatinine measurements to assist you with recognit ion of early kidney disease. Caveats: ??Plasma creatinine should be a t steady-state (unchanged within the past week). ??Patient age > = 18 years, and for Americans multiply eGFR by 1.2. At present, NKDEP does NOT recommend usi ng the MDRD equation for drug dosing purposes and pharmacists should continue to use their current dosing methods. In addition, numerical eGFR values great er than 60 ml/min/1.73 square meters should be treated as > 60, and not an ex act number due to greater inaccuracies at these higher values. Per NKDEP, they classify normal renal function as any GFR >60ml/min/1.73 square meters; chronic kidney disease wh en GFR <60, and renal failure when GFR <15. ??This calculation may not be valid for patients with atypical muscle mass (very lean or obese), acute renal failur e, and in patients with diabetic kidney disease. References: http://nkdep.nih.gov/resources/NKDEP_Sug gestn4Labs_0606_508.pdf http://www.kidney.org/professionals/kls/ pdf/faq_gfr.pdf Specimen Anatomical Collection Method Collection Time Receive d Time (Source) Location / / Volume Laterality Blood specimen 12/27/2010 2:25 AM 011 2:36 (specimen) EST AM EST Javan Cerna MD CHEMISTRY ORDERABLES Performing Organization Address City/State/ZIP Code Phon e Number [place] [address] C[facility] BUN (12/27/2010 2:25 AM EST) athologist Signature BUN 11 8 - 18 CERNER mg/dL [facility] Specimen Anatomical Collection Method Collection Time Receive d Time (Source) Location / / Volume Laterality Blood specimen 12/27/2010 2:25 AM 011 2:36 (specimen) EST AM EST Javan Cerna MD CHEMISTRY ORDERABLES Performing Organization Address City/[facility]/ZIP Code Phon e Number [place] [address] [facility] (ABNORMAL) ELECTROLYTE PANEL (12/27/2010 2:25 AM EST) athologist [facility] Sodium 139 135 - 145 CERNER mmol/L [facility] Potassium 4.4 3.5 - 5.0 CERNER mmol/L [facility] Comment: Please note: ??Patients with WBC >100,00 0 may have falsely elevated Potassium levels. ??For accurate Potassium quantif ication in these patients send serum separator tube (gold top) for subsequent determinations. ??Contact the Clinical Chemistry Laboratory if there are any qu estions. Chloride 102 98 - 107 mmol/L CERNER M[facility]ENN IUM CO2 33 (H) 22 - 31 mmol/L CERNER MILLENNI UM Anion Gap 4 (L) 5 - 15 mmol/L CERNER MILLENNIU M Specimen Anatomical Collection Method Collection Time Receive d Time (Source) Location / / Volume Laterality Blood specimen 12/27/2010 2:25 AM 011 2:36 (specimen) EST AM EST Javan Cerna MD CHEMISTRY ORDERABLES Performing Organization Address City/[facility]/ZIP Code Phon e Number [address] C[facility] POCT GLUCOMETER ORDER (LAB USE ONLY) (12/26/2010 8:45 PM EST) athologist Signature POC Glucose 82 70 - 110 CERNER mg/dL [facility] Comment: Supplemental ranges: <110 mg/dL before meals <200 mg/dL all other times of the day Specimen Anatomical Collection Method Collection Time Receive d Time (Source) Location / / Volume Laterality Blood specimen 12/26/2010 8:45 PM 011 8:45 (specimen) EST PM EST Javan Cerna MD POINT OF CARE TEST ORDERABLE S Performing Organization Address City/State/ZIP Code Phon e Number [address] C[facility] POCT GLUCOMETER ORDER (LAB USE ONLY) (12/26/2010 11:38 AM EST) athologist Signature POC Glucose 99 70 - 110 [facility]ER mg/dL [facility] Comment: Supplemental ranges: <110 mg/dL before meals <200 mg/dL all other times of the day Specimen Anatomical Collection Method Collection Time Receive d Time (Source) Location / / Volume Laterality Blood specimen 12/26/2010 11:38 1 (specimen) AM EST 11:38 AM EST Javan Cerna MD POINT OF CARE TEST ORDERABLE S Performing Organization Address City/[facility]/ZIP Code Phon e Number [address] [facility] (ABNORMAL) POCT GLUCOMETER ORDER (LAB USE ONLY) (12/26/2010 8:01 AM EST) athologist Signature POC Glucose 174 (H) 70 - 110 CERNER mg/dL [facility] Comment: Supplemental ranges: <110 mg/dL before meals <200 mg/dL all other times of the day Specimen Anatomical Collection Method Collection Time Receive d Time (Source) Location / / Volume Laterality Blood specimen 12/26/2010 8:01 AM 011 8:01 (specimen) EST AM EST Javan Cerna MD POINT OF CARE TEST ORDERABLE S Performing Organization Address City/State/ZIP Code Phon e Number [address] C[facility] REFLEX LAB-A-DIFF (12/26/2010 2:30 AM EST) athologist Signature Neutrophils % 62.0 34.0 - CERNER 71.0 % [facility] Neutr Abs (ANC) 5.95 1.50 - CERNER 6.30 [facility] x10(3)/mcL Lymphocytes % 26.7 19.0 - CERNER 53.0 % [facility] Lymphocytes Abs 2.6 1.0 - 3.6 CERNER x10(3)/mcL [facility] Monocytes % 7.7 4.0 - 13.0 CERNER % [facility] Monocyte Abs 0.7 0.2 - 1.0 CERNER x10(3)/mcL [facility] Eosinophils % 2.9 0.0 - 7.0 CERNER % [facility] Eosinophils Abs 0.3 0.0 - 0.5 C[facility]ER x10(3)/mcL [facility] Basophils % 0.5 0.0 - 2.0 CERNER % [facility] Basophils Abs 0.1 0.0 - 0.2 CERNER x10(3)/mcL [facility] Immature Gran % 0.20 0.00 - CERNER 0.66 % [facility] Comment: Immature granulocytes(IG's)percentage an d absolute count will include metamyelocytes, myelocytes, and promyelo cytes. Blood smears from CBCs yielding IG's will be scanned manually for concor dance. If this scan disagrees with the automated IG or if promyelocytes are not ed, a manual differential will be performed. [place] Gran Abs 0.02 0.00 - 0.05 x10(3)/mcL CER NER [facility] Specimen Anatomical Collection Method Collection Time Receive d Time (Source) Location / / Volume Laterality Blood specimen 12/26/2010 2:30 AM 011 2:48 (specimen) EST AM EST Javan Cerna MD HEMATOLOGY ORDERABLES Performing Organization Address City/State/[place] [address] C[facility] (ABNORMAL) CBC (12/26/2010 2:30 AM EST) P athologist Signature WBC 9.6 4.0 - 10.0 CERNER x10(3)/mcL [facility] RBC 3.34 (L) 3.93 - CERNER 5.22 [facility] x10(6)/mcL Hemoglobin 10.0 (L) 11.2 - CERNER 15.7 gm/dL [facility] Hematocrit 32.3 (L) 34.0 - CERNER 45.0 % [facility] MCV 96.7 (H) 79.0 - CERNER 94.0 fL [facility] MCH 29.9 26.6 - CERNER 32.2 pg [facility] MCHC 31.0 (L) 32.0 - CERNER 36.5 gm/dL [facility] Platelets 182 145 - 370 CERNER x10(3)/mcL [facility] RDWSD 44.8 35.0 - CERNER 46.0 fL [facility] RDWCV 12.6 10.9 - CERNER 14.4 % [facility] MPV 11.1 9.0 - 12.0 CERNER fL [facility] Specimen Anatomical Collection Method Collection Time Receive d Time (Source) Location / / Volume Laterality Blood specimen 12/26/2010 2:30 AM 011 2:48 (specimen) EST AM EST Javan Cerna MD HEMATOLOGY ORDERABLES Performing Organization Address [facility] Phon e Number [address] CERNER M[facility]ENNI[facility] MAGNESIUM (12/26/2010 2:30 AM EST) P athologist Signature Magnesium 0.78 0.69 - 1.07 CERNER mmol/L [facility] Specimen Anatomical Collection Method Collection Time Receive d Time (Source) Location / / Volume Laterality Blood specimen 12/26/2010 2:30 AM 011 2:48 (specimen) EST AM EST Javan Cerna MD CHEMISTRY ORDERABLES Performing Organization Address City/[facility] Phon e Number [address] CERNER [facility]NI[facility] PHOSPHORUS (12/26/2010 2:30 AM EST) P athologist Signature Phosphorus 3.1 2.5 - 4.5 CERNER mg/dL [facility] Specimen Anatomical Collection Method Collection Time Receive d Time (Source) Location / / Volume Laterality Blood specimen 12/26/2010 2:30 AM 011 2:48 (specimen) EST AM EST Javan Cerna MD CHEMISTRY ORDERABLES Performing Organization Address City/[facility] [place] [address] CERNER [facility] (ABNORMAL) CREATININE, SERUM (12/26/2010 2:30 AM EST) Analysis Performed At Patho logis Time Signature Creatinine 0.48 (L) 0.70 - CERNER 1.20 mg/dL [facility] Estimated GFR >60 >=60 CERNER [facility]ENNIUM Comment: The National Kidney Disease Education Pr ogram (NKDEP) has recommended all laboratories report estimated GFR (eGFR) along with plasma creatinine measurements to assist you with recognit ion of early kidney disease. Caveats: ??Plasma creatinine should be a t steady-state (unchanged within the past week). ??Patient age > = 18 years, and for Americans multiply eGFR by 1.2. At present, NKDEP does NOT recommend usi ng the MDRD equation for drug dosing purposes and pharmacists should continue to use their current dosing methods. In addition, numerical eGFR values great er than 60 ml/min/1.73 square meters should be treated as > 60, and not an ex act number due to greater inaccuracies at these higher values. Per NKDEP, they classify normal renal function as any GFR >60ml/min/1.73 square meters; chronic kidney disease wh en GFR <60, and renal failure when GFR <15. ??This calculation may not be valid for patients with atypical muscle mass (very lean or obese), acute renal failur e, and in patients with diabetic kidney disease. References: http://nkdep.nih.gov/resources/NKDEP_Sug gestn4Labs_0606_508.pdf http://www.kidney.org/professionals/kls/ pdf/faq_gfr.pdf Specimen Anatomical Collection Method Collection Time Receive d Time (Source) Location / / Volume Laterality Blood specimen 12/26/2010 2:30 AM 011 2:48 (specimen) EST AM EST Javan Cerna MD CHEMISTRY ORDERABLES Performing Organization Address City/State/[place] [address] CERNER M[facility]ENNIUM BUN (12/26/2010 2:30 AM EST) P athologist Signature BUN 12 8 - 18 CERNER mg/dL [facility] Specimen Anatomical Collection Method Collection Time Receive d Time (Source) Location / / Volume Laterality Blood specimen 12/26/2010 2:30 AM 011 2:48 (specimen) EST AM EST Javan Cerna MD CHEMISTRY ORDERABLES Performing Organization Address [facility]/[place] [address] CERNER MILLENNIUM ELECTROLYTE PANEL (12/26/2010 2:30 AM EST) athologist Signature Sodium 137 135 - 145 CERNER mmol/L [facility] Potassium 3.9 3.5 - 5.0 CERNER mmol/L [facility] Comment: Please note: ??Patients with WBC >100,00 0 may have falsely elevated Potassium levels. ??For accurate Potassium quantif ication in these patients send serum separator tube (gold top) for subsequent determinations. ??Contact the Clinical Chemistry Laboratory if there are any qu estions. Chloride 99 98 - 107 mmol/L CERNER MILLENN IUM CO2 31 22 - 31 mmol/L CERNER MILLENNI UM Anion Gap 7 5 - 15 mmol/L CERNER MILLENNIU M Specimen Anatomical Collection Method Collection Time Receive d Time (Source) Location / / Volume Laterality Blood specimen 12/26/2010 2:30 AM 011 2:48 (specimen) EST AM EST Javan Cerna MD CHEMISTRY ORDERABLES Performing Organization Address City/[facility]/ZIP Code Phon e Number [address] CERNER MILLENNIUM (ABNORMAL) POCT GLUCOMETER ORDER (LAB USE ONLY) (12/25/2010 11:48 PM EST) athologist Signature POC Glucose 137 (H) 70 - 110 CERNER mg/dL [facility] Comment: Supplemental ranges: <110 mg/dL before meals <200 mg/dL all other times of the day Specimen Anatomical Collection Method Collection Time Receive d Time (Source) Location / / Volume Laterality Blood specimen 12/25/2010 11:48 1 (specimen) PM EST 11:48 PM EST Javan Cerna MD POINT OF CARE TEST ORDERABLE S Performing Organization Address City/[facility]/ZIP Code Phon e Number [address] CERNER MILLENNIUM (ABNORMAL) POCT GLUCOMETER ORDER (LAB USE ONLY) (12/25/2010 8:39 PM EST) P athologist Signature POC Glucose 175 (H) 70 - 110 CERNER mg/dL [facility] Comment: Supplemental ranges: <110 mg/dL before meals <200 mg/dL all other times of the day Specimen Anatomical Collection Method Collection Time Receive d Time (Source) Location / / Volume Laterality Blood specimen 12/25/2010 8:39 PM 011 8:39 (specimen) EST PM EST Javan Cerna MD POINT OF CARE TEST ORDERABLE S Performing Organization Address [facility] [facility]/ZIP Code Phon e Number [address] CERNER MILLENNIUM (ABNORMAL) POCT GLUCOMETER ORDER (LAB USE ONLY) (12/25/2010 6:16 PM EST) P athologist Signature POC Glucose 274 (H) 70 - 110 CERNER mg/dL MILLENNIUM Comment: Supplemental ranges: <110 mg/dL before meals <200 mg/dL all other times of the day Specimen Anatomical Collection Method Collection Time Receive d Time (Source) Location / / Volume Laterality Blood specimen 12/25/2010 6:16 PM 011 6:16 (specimen) EST PM EST Javan Cerna MD POINT OF CARE TEST ORDERABLE S Performing Organization Address City/[facility]/ZIP Code Phon e Number [address] CERNER MILLENNIUM (ABNORMAL) POCT GLUCOMETER ORDER (LAB USE ONLY) (12/25/2010 4:31 PM EST) P athologist Signature POC Glucose 173 (H) 70 - 110 CERNER mg/dL MILLENNIUM Comment: Supplemental ranges: <110 mg/dL before meals <200 mg/dL all other times of the day Specimen Anatomical Collection Method Collection Time Receive d Time (Source) Location / / Volume Laterality Blood specimen 12/25/2010 4:31 PM 011 4:31 (specimen) EST PM EST Javan Cerna MD POINT OF CARE TEST ORDERABLE S Performing Organization Address City/[facility]/ZIP Code Phon e Number [address] CERNER MILLENNIUM (ABNORMAL) POCT GLUCOMETER ORDER (LAB USE ONLY) (12/25/2010 11:40 AM EST) P athologist Signature POC Glucose 139 (H) 70 - 110 CERNER mg/dL [facility] Comment: Supplemental ranges: <110 mg/dL before meals <200 mg/dL all other times of the day Specimen Anatomical Collection Method Collection Time Receive d Time (Source) Location / / Volume Laterality Blood specimen 12/25/2010 11:40 1 (specimen) AM EST 11:40 AM EST Javan Cerna MD POINT OF CARE TEST ORDERABLE S Performing Organization Address City/[facility]/ZIP Code Phon e Number [address] CERNER MILLENNIUM (ABNORMAL) POCT GLUCOMETER ORDER (LAB USE ONLY) (12/25/2010 5:01 AM EST) P athologist Signature POC Glucose 183 (H) 70 - 110 CERNER mg/dL [facility] Comment: Supplemental ranges: <110 mg/dL before meals <200 mg/dL all other times of the day Specimen Anatomical Collection Method Collection Time Receive d Time (Source) Location / / Volume Laterality Blood specimen 12/25/2010 5:01 AM 011 5:01 (specimen) EST AM EST Javan Cerna MD POINT OF CARE TEST ORDERABLE S Performing Organization Address City/State/ZIP Code Phon e Number [address] CERNER MILLENNIUM (ABNORMAL) REFLEX LAB-A-DIFF (12/25/2010 2:42 AM EST) Patholo gist Method Time Signature Neutrophils % 69.9 34.0 - CERNER 71.0 % MILLENNIUM Neutr Abs (ANC) 8.47 (H) 1.50 - CERNER 6.30 MILLENNIUM x10(3)/mc L Lymphocytes % 22.9 19.0 - CERNER 53.0 % MILLENNIUM Lymphocytes Abs 2.8 1.0 - 3.6 CERNER x10(3)/mc MILLENNIUM L Monocytes % 6.0 4.0 - CERNER 13.0 % MILLENNIUM Monocyte Abs 0.7 0.2 - 1.0 CERNER x10(3)/mc MILLENNIUM L Eosinophils % 0.8 0.0 - 7.0 CERNER % MILLENNIUM Eosinophils Abs 0.1 0.0 - 0.5 CERNER x10(3)/mc MILLENNIUM L Basophils % 0.2 0.0 - 2.0 CERNER % MILLENNIUM Basophils Abs 0.0 0.0 - 0.2 CERNER x10(3)/mc MILLENNIUM L Immature Gran % 0.20 0.00 - CERNER 0.66 % MILLENNIUM Comment: Immature granulocytes(IG's)percentage an d absolute count will include metamyelocytes, myelocytes, and promyelo cytes. Blood smears from CBCs yielding IG's will be scanned manually for concor dance. If this scan disagrees with the automated IG or if promyelocytes are not ed, a manual differential will be performed. [place] Gran Abs 0.02 0.00 - 0.05 x10(3)/mcL CER NER MILLENNIUM Specimen Anatomical Collection Method Collection Time Receive d Time (Source) Location / / Volume Laterality Blood specimen 12/25/2010 2:42 AM 011 2:51 (specimen) EST AM EST Javan Cerna MD HEMATOLOGY ORDERABLES Performing Organization Address City/State/[place] [address] CERNER MILLENNIUM (ABNORMAL) CBC (12/25/2010 2:42 AM EST) P athologist Signature WBC 12.1 (H) 4.0 - 10.0 CERNER x10(3)/mcL MILLENNIUM RBC 3.71 (L) 3.93 - CERNER 5.22 MILLENNIUM x10(6)/mcL Hemoglobin 11.2 11.2 - CERNER 15.7 gm/dL MILLENNIUM Hematocrit 35.8 34.0 - CERNER 45.0 % MILLENNIUM MCV 96.5 (H) 79.0 - CERNER 94.0 fL MILLENNIUM MCH 30.2 26.6 - CERNER 32.2 pg MILLENNIUM MCHC 31.3 (L) 32.0 - CERNER 36.5 gm/dL MILLENNIUM Platelets 217 145 - 370 CERNER x10(3)/mcL MILLENNIUM RDWSD 46.0 35.0 - CERNER 46.0 fL MILLENNIUM RDWCV 13.0 10.9 - CERNER 14.4 % MILLENNIUM MPV 11.3 9.0 - 12.0 CERNER fL MILLENNIUM Specimen Anatomical Collection Method Collection Time Receive d Time (Source) Location / / Volume Laterality Blood specimen 12/25/2010 2:42 AM 011 2:51 (specimen) EST AM EST Javan Cerna MD HEMATOLOGY ORDERABLES Performing Organization Address City/[facility]/[place] [address] CERNER MILLENNIUM (ABNORMAL) MAGNESIUM (12/25/2010 2:42 AM EST) P athologist Signature Magnesium 0.66 (L) 0.69 - 1.07 CERNER mmol/L MILLENNIUM Specimen Anatomical Collection Method Collection Time Receive d Time (Source) Location / / Volume Laterality Blood specimen 12/25/2010 2:42 AM 011 2:51 (specimen) EST AM EST Javan Cerna MD CHEMISTRY ORDERABLES Performing Organization Address City/[facility]/ZIP Code Phon e Number [address] CERNER MILLENNIUM (ABNORMAL) PHOSPHORUS (12/25/2010 2:42 AM EST) P athologist Signature Phosphorus 4.6 (H) 2.5 - 4.5 CERNER mg/dL MILLENNIUM Specimen Anatomical Collection Method Collection Time Receive d Time (Source) Location / / Volume Laterality Blood specimen 12/25/2010 2:42 AM 011 2:51 (specimen) EST AM EST Javan Cerna MD CHEMISTRY ORDERABLES Performing Organization Address City/[facility]/[place] [address] CERNER ERICENNIUM (ABNORMAL) CREATININE, SERUM (12/25/2010 2:42 AM EST) Analysis Performed At Patho logist Time Signature Creatinine 0.58 (L) 0.70 - CERNER 1.20 mg/dL MILLENNIUM Estimated GFR >60 >=60 CERNER MILLENNIUM Comment: The National Kidney Disease Education Pr ogram (NKDEP) has recommended all laboratories report estimated GFR (eGFR) along with plasma creatinine measurements to assist you with recognit ion of early kidney disease. Caveats: ??Plasma creatinine should be a t steady-state (unchanged within the past week). ??Patient age > = 18 years, and for Americans multiply eGFR by 1.2. At present, NKDEP does NOT recommend usi ng the MDRD equation for drug dosing purposes and pharmacists should continue to use their current dosing methods. In addition, numerical eGFR values great er than 60 ml/min/1.73 square meters should be treated as > 60, and not an ex act number due to greater inaccuracies at these higher values. Per NKDEP, they classify normal renal function as any GFR >60ml/min/1.73 square meters; chronic kidney disease wh en GFR <60, and renal failure when GFR <15. ??This calculation may not be valid for patients with atypical muscle mass (very lean or obese), acute renal failur e, and in patients with diabetic kidney disease. References: http://nkdep.nih.gov/resources/NKDEP_Sug gestn4Labs_0606_508.pdf http://www.kidney.org/professionals/kls/ pdf/faq_gfr.pdf Specimen Anatomical Collection Method Collection Time Receive d Time (Source) Location / / Volume Laterality Blood specimen 12/25/2010 2:42 AM 011 2:51 (specimen) EST AM EST Javan Cerna MD CHEMISTRY ORDERABLES Performing Organization Address City/[facility]/[place] [address] CERNER MILLENNIUM (ABNORMAL) BUN (12/25/2010 2:42 AM EST) athologist Signature BUN 20 (H) 8 - 18 CERNER mg/dL MILLENNIUM Specimen Anatomical Collection Method Collection Time Receive d Time (Source) Location / / Volume Laterality Blood specimen 12/25/2010 2:42 AM 011 2:51 (specimen) EST AM EST Javan Cerna MD CHEMISTRY ORDERABLES Performing Organization Address [facility] [place] [address] CERNER MILLENNIUM ELECTROLYTE PANEL (12/25/2010 2:42 AM EST) athologist [facility] Sodium 138 135 - 145 CERNER mmol/L MILLENNIUM Potassium 4.2 3.5 - 5.0 CERNER mmol/L MILLENNIUM Comment: Please note: ??Patients with WBC >100,00 0 may have falsely elevated Potassium levels. ??For accurate Potassium quantif ication in these patients send serum separator tube (gold top) for subsequent determinations. ??Contact the Clinical Chemistry Laboratory if there are any qu estions. Chloride 102 98 - 107 mmol/L CERNER MILLENN IUM CO2 29 22 - 31 mmol/L CERNER MILLENNI UM Anion Gap 7 5 - 15 mmol/L CERNER MILLENNIU M Specimen Anatomical Collection Method Collection Time Receive d Time (Source) Location / / Volume Laterality Blood specimen 12/25/2010 2:42 AM 011 2:51 (specimen) EST AM EST Javan Cerna MD CHEMISTRY ORDERABLES Performing Organization Address City/[facility] [place] [address] CERNER MILLENNIUM (ABNORMAL) POCT GLUCOMETER ORDER (LAB USE ONLY) (12/24/2010 7:07 PM EST) athologist Signature POC Glucose 165 (H) 70 - 110 CERNER mg/dL MILLENNIUM Comment: Supplemental ranges: <110 mg/dL before meals <200 mg/dL all other times of the day Specimen Anatomical Collection Method Collection Time Receive d Time (Source) Location / / Volume Laterality Blood specimen 12/24/2010 7:07 PM 011 7:07 (specimen) EST PM EST Javan Cerna MD POINT OF CARE TEST ORDERABLE S Performing Organization Address City/[facility]/ZIP Code Phon e Number [address] [facility] (ABNORMAL) POCT GLUCOMETER ORDER (LAB USE ONLY) (12/24/2010 4:12 PM EST) P athologist Signature POC Glucose 203 (H) 70 - 110 CERNER mg/dL [facility] Comment: Supplemental ranges: <110 mg/dL before meals <200 mg/dL all other times of the day Specimen Anatomical Collection Method Collection Time Receive d Time (Source) Location / / Volume Laterality Blood specimen 12/24/2010 4:12 PM 011 4:12 (specimen) EST PM EST Javan Cerna MD POINT OF CARE TEST ORDERABLE S Performing Organization Address City/[facility]/ZIP Code Phon e Number [address] [facility] (ABNORMAL) POCT GLUCOMETER ORDER (LAB USE ONLY) (12/24/2010 10:41 AM EST) P athologist Signature POC Glucose 133 (H) 70 - 110 CERNER mg/dL [facility] Comment: Supplemental ranges: <110 mg/dL before meals <200 mg/dL all other times of the day Specimen Anatomical Collection Method Collection Time Receive d Time (Source) Location / / Volume Laterality Blood specimen 12/24/2010 10:41 1 (specimen) AM EST 10:41 AM EST Javan Cerna MD POINT OF CARE TEST ORDERABLE S Performing Organization Address City/[facility]/ZIP Code Phon e Number [address] [facility] PATHOLOGY NON-FURNITURE DUSTER FINAL REPORT (12/24/2010 10:22 AM EST) Component Value Ref Test Analysis Performed At [facility] gist Range Method Time Signature Non-Life Enrichment Assistant Final CERNER Report ? [facility] ? Provider: ?? JAVAN CERNA ?? Pt. Name: ?? RIVAS, NANCY L ? Acc #: ?[id number] ?Pt. MRN: ?[id number] ? Col Date: ?? 1 ? /Sex: ?1955,(55 years),Female ? Rec Date: ?? 12/24/2010 ? LOC: ?1WST ? CYTOPATHOLOGY: ??NGYN ? ---Adequacy--- ? Specimen submitted is satisfactory. ? ---Cytopathologic Diagnosis--- ? Negative for Malignancy ? 12/25/10 ?Screened by: ? VEJ ? Rescreened by: ?? DOROTA,EJG ? 12/27/10 ?Verified by: ? Shruti MIKE, Irving jang J ?Cytopa thologist ? (Electronic Signature) ? ---Comment--- ? Pelvic Washings: Clusters of mesothelial cells are pr esent. ? (Cell block correlates.) ? ---Clinical Information--- ? Specimen Source: ?Pelvic Washings ? Clinical History/Impression: ?Pelvic mass. ? Gross Description: ?Received fresh, approximately 80 ml. total volume of cloudy, red fluid. ?Total Preparation: Liquid Based Prep 1; Cell Blo ck 1. Specimen (Source) Anatomical Collection Method Collection Time Re ceived Time Location / / Volume Laterality 12/24/2010 10:22 AM EST Javan Cerna MD PATHOLOGY/CYTOLOGY ORDERABLE S Performing Organization Address City/State/[place] [address] CERNER MILLENNIUM PATHOLOGY SURGICAL PATHOLOGY FINAL REPORT (12/24/2010 9:16 AM EST) Component Value Ref Test Analysis Performed At [facility] Range Method Time Signature Surgical CERNER Pathology ? [facility] Report ? Provider: ?? JAVAN CERNA ?? Pt. Name: ?? NANCY RIVAS ? Acc #: ?[id number] ?Pt. MRN: ?[id number] ? Col Date: ?? 1 ? /Sex: ?1955,(55 years),Female ? Rec Date: ?? 12/24/2010 ? LOC: ?1WST ? SURGICAL PATHOLOGY ? ---Pathologic Diagnosis--- ? Uterus, bilateral fallopian tubes and ovaries (hyster ectomy and ? bilateral salpingo-oophorectomy): ?1. Uterine leiomyomas. ?2. Adenomyosis. ?3. Atrophic endometrium. ?4. Ovarian surface epithelial inclusion cysts an d ? stromal hyperthecosis. ?5. Paratubal cysts. ?6. Bilateral fallopian tubes, no histopatholog ic abnormalities. ? CR-0 ? 12/27/10 ? JLG ? 12/28/10 Verified by: ? Khris MIKE, Balta Escobar ? Pathologist ? (Electronic Si gnature) ? The attending pathologist whose signature appears o n this report has ? reviewed all diagnostic slides and has edited the froylan ss and/or ? microscopic portion of the report in rendering the fi nal pathologic ? diagnosis. ? ---Microscopic Description--- ? Slides reviewed, microscopic description not recorded . ? ---Gross Description--- ? Labeled/Fixative: ?Uterus, cerv ix, tubes and ovaries; fresh. ? Qty/Size/Weight: ? Single, 9.0 x 5.5 x 3.5 cm, 84 g. ? Tissue Description: ?Total hysterectomy consisting of uterine corpus ?and cervix with attached bilateral adnexa. ?Uterus and Cervix: ? Endometrium: ? ethan Angel, and jie adams. ?Thickness: ?Averages 0.2 cm. ?Lesions: ?None grossly identi fied. ? Myometrium: ?Blythe, finely reticula sobia. ?Thickness: ?1.5 cm. ?Lesions : ?Intramural yellow-white fibroid nodules present ?both anteriorly and posteriorly, varying from ?0.7 cm to 2.0 cm, without evidence of hemorrhage ?or necrosis. ? Uterine sero sa: ?Brown, glistening, with scattered petechia and ?subserosal fibroid nodules, varying from 1.0 cm to ? 7.5 cm. ??The largest is pedunculated, extending ? [facility] ? Provider: ?? JAVAN CERNA ?? Pt. Name: ?? NANCY RIVAS ? Acc #: ?[id number] ?Pt. MRN: ?[id number] ? Col Date: ? /Sex: ?1955,(55 years),Female ? Rec Date: ?? 12/24/2010 ? LOC: ?1WST ? SURGICAL PATHOLOGY ?from the dome of the uterus. ??Sectioning reveals ?partially cystic, peripherally edematous, ?pink-white, whorled cut surface suggestive of a ?degenerated lei omyoma. ? Cervix: ?The 4.5 x 2.7-sf-ae-diameter cervix has a angel, ?smooth, focally hemorrhagic mucosa surrounding a ?0.3-xc-kx-diameter, patulous os. ??The endocervical ? canal has a angel, furrowed, and glistening lining ?without gross l esions. ?Ovaries and Fallopian Tubes: ? Right ovary ?Dimensions: ? 4.0 x 2.0 x 1.3 cm. ?Outer s urface: ??Angel, congested, and convoluted with scattered ?fibrous adhesions and an adherent, ?0.6 x 0.2 x 0.2-cm paraovarian cyst. ?Cut surface: ?Y hilda, lobulated, with scattered, ?well-circumscribed corpora albicantia. ? Right tube: ?The 6.5-cm, fimbriated right fallopian tube has a ?diameter varying from 0.3 cm to 0.9 cm distally. ?Serosa is intact, red, and congested with ?scattered paratubal cysts, averaging 0.3 cm. ? Left ovary ?Dimensions: ? 5.5 x 1.6 x 1.5 cm. ?Outer s urface: ??Angel and convoluted with pink-red fibrous adhesions ?to the ad jacent fallopian tube. ?Cut ayaz face: ?Yellow-white and lobulated with scattered, white, ?corpora albican tia. ? Left tube: ? The 7.5-cm, fimbriated left fallopian tube has a ?0.4-cm average diameter. ??Serosa is brown and ?intact, demonstrating fibrous adhesions to the ?ovary. ??Additionally adjacent to the fimbriated ?ends are fluid-filled paratubal cysts, averaging ?0.3 cm. ? Sections/Processing: ? Division Human Resources Manager section fro m the large, ?pedunculated fibroid nodule is processed for ?frozen section as (A1). ??(A1) frozen section ?remnant; (A2-A4) additional reimbursement representative ?sections through the large, pedunculated fibroid ?nodule; (A5) anterior cervix; (A6) posterior ?cervix; (A7) anterior endometrium; (A8) posterior ?endometrium; (A9) reimbursement representative intramural ?fibroid nodules; (A10-A11) right tube and ovary; ?(A12-A13) left tube and ovary. ??(R13) ??aje/SHB ? [facility] ? Provider: ?? JAVAN CERNA ?? Pt. Name: ?? NANCY RIVAS ? Acc #: ?[id number] ?Pt. MRN: ?[id number] ? Col Date: ?? 1 ? /Sex: ?1955,(55 years),Female ? Rec Date: ?? 12/24/2010 ? LOC: ?1WST ? SURGICAL PATHOLOGY ? ---Clinical Information--- ? Specimen Submitted: ? A - Uterus, cervix, tubes and ovaries, pelvis for fro ángel section ? Clinical History: ? Not provided ? Clinical Diagnosis: ? Pelvic mass Specimen (Source) Anatomical Collection Method Collection Time Re ceived Time Location / / Volume Laterality 12/24/2010 9:16 AM EST Javan Cerna MD PATHOLOGY/CYTOLOGY ORDERABLE S Performing Organization Address City/State/[place] [address] CERNER MILLENNIUM PATHOLOGY FROZEN SECTION REPORT (12/24/2010 9:16 AM EST) Component Value Ref Test Analysis Performed At [facility] gist Range Method Time Signature Frozen CERNER Section ? [facility] MILLENNIUM Report ? Provider: ?? JAVAN CERNA ?? Pt. Name: ?? NANCY RIVAS ? Acc #: ?[id number] ?Pt. MRN: ?[id number] ? Col Date: ?? 1 ? /Sex: ?1955,(55 years),Female ? Rec Date: ?? 12/24/2010 ? LOC: ?SDA ? FROZEN SECTION REPORT ? ---Frozen Section Report--- ? A - Uterus, cervix, tubes and ovaries, for frozen sec tion: ? Edematous smooth muscle neoplasm. ? LJT 12/24/10 09:40 ? 12/24/10 ??Verified by: ??Gómez MIKE, Jackie Miller, Pathologphil st ? The attending patholo gist whose electronic signature appears on this report ? has reviewed all diagnostic slides in rendering the f rozen section ? diagnosis. ? This intraoperative consultation should be interpreted as a preliminary ? diagnosis pending review of the e ntire specimen and special studies, if ? any. Specimen (Source) Anatomical Collection Method Collection Time Re ceived Time Location / / Volume Laterality 12/24/2010 9:16 AM EST Javan Cerna MD PATHOLOGY/CYTOLOGY ORDERABLE S Performing Organization Address [facility]/ZIP [facility] Phon e Number [address] CERNER MILLENNIUM POCT GLUCOMETER ORDER (LAB USE ONLY) (12/24/2010 9:06 AM EST) P athologist Signature POC Glucose 105 70 - 110 CERNER mg/dL MILLENNIUM Comment: Supplemental ranges: <110 mg/dL before meals <200 mg/dL all other times of the day Specimen Anatomical Collection Method Collection Time Receive d Time (Source) Location / / Volume Laterality Blood specimen 12/24/2010 9:06 AM 011 9:06 (specimen) EST AM EST Javan Cerna MD POINT OF CARE TEST ORDERABLE S Performing Organization Address City/[facility]/ZIP Code Phon e Number [address] CERNER MILLENNIUM POCT GLUCOMETER ORDER (LAB USE ONLY) (12/24/2010 8:14 AM EST) P athologist Signature POC Glucose 96 70 - 110 CERNER mg/dL MILLENNIUM Comment: Supplemental ranges: <110 mg/dL before meals <200 mg/dL all other times of the day Specimen Anatomical Collection Method Collection Time Receive d Time (Source) Location / / Volume Laterality Blood specimen 12/24/2010 8:14 AM 011 8:14 (specimen) EST AM EST Javan Cerna MD POINT OF CARE TEST ORDERABLE S Performing Organization Address City/State/ZIP Code Phon e Number [address] CERNER MILLENNIUM POCT GLUCOMETER ORDER (LAB USE ONLY) (12/24/2010 6:27 AM EST) athologist Signature POC Glucose 76 70 - 110 CERNER mg/dL [facility] Comment: Supplemental ranges: <110 mg/dL before meals <200 mg/dL all other times of the day Specimen Anatomical Collection Method Collection Time Receive d Time (Source) Location / / Volume Laterality Blood specimen 12/24/2010 6:27 AM 011 6:27 (specimen) EST AM EST Javan Cerna MD POINT OF CARE TEST ORDERABLE S Performing Organization Address City/[facility]/ZIP Code Phon e Number [address] CERGOMEZ PLASENCIAIUM documented in this encounter Visit Diagnoses Not on filedocumented in this encounter Active and Recently Administered Medications Care Teams Priming Powder Premix Blender Relationship Specialty Start Date End Date Nancy Reynaga MD PCP - General 10/19/10 04/01/19 [address] [place] [address] documented as of this encounter
--- OUTSIDE RECORDS SUMMARY | 2022-10-07 18:42 | XMS_ITS | Encounter Summary ---
:1955 Author Organization [facility] [place] [address] Care Team Providers Name Role Phone Unavailable Primary Care Provider Unavailable Reason for Referral Consultation (Routine) - Closed Specialty Diagnoses / Procedures Referred By Contact Refer red To Contact Urology Diagnoses Urothelial carcinoma of kidney, right Alberto Shelton MD [facility] [place] [facility] [address] HEMATOLOGY/[place] [address] [place] [address] Referral ID Status Reason Start Date Expiration Date Visits V isits Requested Authorized [id number] Closed Consult, 01/26/2021 01/26/2022 1 1 Test & Treat Reason for Visit Consultation (Routine) - Closed Specialty Diagnoses / Procedures Referred By Contact Refer red To Contact Hematology and Diagnoses Malignant neoplasm of urinary organ, unspecified MALIGNANT NEOPLASM OF URINARY ORGAN, UNSPECIFIED Doyle Renner, Alberto Montaño, Oncology Procedures TREATMENT OPTIONS MD MIKE [address] [place] [address] [place] [phone] Referral ID Status Reason Start Date Expiration Date Visits Requ ested Visits Authorized [id number] Closed 01/13/2021 01/13/2022 1 1 Encounter Details Date Type Department Care Team Description 01/26/2021 Office Visit Hematology/Oncology Rah Shelton MD [facility] HEMATOLOGY/[place] [address] Malignant neoplasm of urinary bladder, u nspecified site; at [facility], Adilene L, 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 [address] [place] [address] [place] [address] Urothelial carcinoma of kidney, right [address] [place] [address] Social History Tobacco Use Types Packs/Day Years Used Date Former Smoker Cigarettes 0.25 Quit: 06/2020 Smokeless Tobacco: Never Used Sex Assigned at Date Recorded Not on file documented as of this encounter Last Filed Vital Signs Vital Sign Reading Time Taken Comments Blood Pressure 168/61 01/26/2021 3:37 PM EST Pulse 85 01/26/2021 3:37 PM EST Temperature 36.5 ??C (97.7 ??F) 01/26/2021 3:37 PM EST Respiratory Rate 16 01/26/2021 3:37 PM EST Oxygen Saturation 95% 01/26/2021 3:37 PM EST Inhaled Oxygen Concentration - - Weight 94.8 kg (209 lb) 01/26/2021 3:37 PM EST Height 160 cm (5' 3) 01/26/2021 3:37 PM EST Body Mass Index 37.02 01/26/2021 3:37 PM EST documented in this encounter Progress Notes Barb Dennis, MORTEZA - 01/26/2021 3:30 PM EST MEDICAL ONCOLOGY INITIAL NURSING ASSESSMENT ADVANCE DIRECTIVES: In EDH [ ] Has documents [ ] Will bring in [ ] does not have IF NO: Advance Directive pamphlet provided : Referral to Care Management : PRESENTING SYSTEMS and PATHOLOGY: pt was incontinent of urine REVIEW OF SYSTEMS: see Jannette's note Prior Radiotherapy: no[ x ] Yes[ ]Site Date Facility Prior Chemotherapy: no[ x ] Yes[ ] Drug: Oncologist- LastTreatment: Balance difficulty: [ ]no [x ]yes At risk for fall: [ ] no [x ] yes If yes, actions implemented to prevent fall. Patient/family instructed to avoid independent ambulation. Use wheelchair and ask for assistance of staff while in the clinic. ADL [ ] no limits [ ] needs dressing assistance [ ] needs meal assistance Assistive device:[ ]none [ ]cane [ x ]walker [ ]wheelchair [ ]other: explain has poor balance and needs hip replacement and gets tired easliy PAIN ASSESSMENT: [0 ] out of 10 Location: Description: [ ] Dull [ ] Sharp [ ] Burning [ ] Throbbing [ ] Radiating [ ] Continuous [ ]Intermittent Aggravating Factors: [ ] Movement [ ] Position [ ]Immobility [ ]Other Alleviating Factors: [ ]Medication [ ] Positioning [ ] Other Current Pain Management Plan: [ ]Satisfied [ ] Not satisfied SOCIAL ASSESSMENT: See [facility] social assessment information entered. Support Systems: Derek lives with, daughter Debora transportation plan: [ x]private vehicle [ ] RCT needs Social Work referral [ ] Unknown at this time needs Social Work referral Barriers to treatment: Referrals/Interventions: LEARNING STYLE: Visual and verbal, wants written material and verbal discussion. TEACHING: __ NCI ???Chemotherapy and You?? and folder given __ Specific chemotherapy literature provided and reviewed with patient Alberto Shelton MD - 01/26/2021 3:30 PM EST Images from the original note were not included. Diagnosis: Right upper tract urothelial carcinoma, metastatic CC: I have no energy HPI:Nancy Pichardo is 65 y.o. F referred by Dr. Renner for a consultation on urothelial carcinoma of right upper tract. Usually presented in mid of November with gross hematuria in the right flank discomfort. CT scan revealed enhancement of lining for right renal pelvis with right-sided hydronephrosis and retroperitoneal lymphadenopathy. She underwent cystouretheroscopy and attempted right ureteroscopywith stent placement by Dr. Renner on December 23. Her urine was positive for high-grade urothelial carcinoma. She underwent a biopsy of retroperitoneal lymph nodes on January 22 at [facility]. Pathology is pending. PET scan demonstrated increased FDG uptake at the sites of urothelial thickening in the rightrenal pelvis and enlarged avid right para-aortic lymph nodes. Nancy complains on low energy level, difficulties sleeping and right flank discomfort.Creatinine went up to 1.7 on December 30 from baselinecreatinine of 0.5 in October 2019. PMH: PTSD/depression, diabetes mellitus on insulin, arthritis, , hernia repair x3, anxiety,hysterectomy for urinary incontinence 2 to 3 years ago Social History: [id number] smoking history, quit 6 months ago, does [...] leg pain, CIS - leg pain ??? Sulfa (Sulfonamide Antibiotics) Medications: Your Medications Accurate as of January 26, 2021 11:59 PM. If you have any questions, ask your nurse or doctor. New Medications Dose Details ondansetron 8 mg Tab Commonly known as: Zofran Take 1 tablet by mouth every 8 hours as needed for Nausea. Started by: ALBERTO SHELTON MD 8 mg Quantity: 20 tablet Refills: 3 prochlorperazine 10 mg Tab Commonly known as: Compazine Take 1 tablet by mouth every 6 hours as needed for Nausea. Started by: ALBERTO SHELTON MD 10 mg Quantity: 30 tablet Refills: 2 Continued medications, unchanged Dose Details Insulin Tresiba FlexTouch U-100 100 unit/mL (3 mL) Inpn Inject 56 Units subcutaneously daily. Generic drug: insulin degludec 56 Units Refills: 0 losartan 100 mg Tab Commonly known as: COZAAR Take 100 mg by mouth daily. 100 mg Refills: 0 polyethylene glycoL 17 gram/dose Powd Commonly known as: Miralax Take 17 g by mouth daily as needed. 17 g Refills: 0 spironolactone 25 mg Tab Commonly known as: Aldactone Take 25 mg by mouth daily. 25 mg Refills: 0 VITAMIN D ORAL Take by mouth. Refills: 0 Review of Systems: Constitutional: Positive for fatigue and unexpected weight change. HEENT: Negative for sore throat, mouth sores and trouble swallowing. Eyes: Negative. Respiratory: Negative for cough, shortness of breath and wheezing. Cardiovascular: Negative for chest pain, palpitations and leg swelling. Gastrointestinal: Negative for nausea, vomiting, abdominal pain, diarrhea, constipation and abdominal distention. Genitourinary: Positive for gross hematuria and right flank discomfort Musculoskeletal: Positive for arthritic ache Skin: Negative. Neurological: Negative. Hematological: Negative for adenopathy. PE: General: AAAx3, in NAD, overweight Head: Normocephalic, without obvious abnormality, atraumatic Eyes: PERRL, conjunctiva/corneas clear, EOM's intact, fundi benign, both eyes Ears: Normal TM's and external ear canals, both ears Nose: Nares normal, septum midline, mucosa normal, no drainage or sinus tenderness Throat: Lips, mucosa, and tongue normal; teeth and gums normal Neck: Supple, symmetrical, trachea midline, no adenopathy, thyroid: not enlarged, symmetric, no tenderness/mass/nodules, no carotid bruit or JVD Back: Symmetric, no curvature, ROM normal, no CVA tenderness Lungs: Clear to auscultation bilaterally, respirations unlabored Chest Wall: No tenderness or deformity Heart: Regular rate and rhythm, S1, S2 normal, no murmur, rub or gallop Abdomen: Soft, non-tender, bowel sounds active all four quadrants, no masses, no organomegaly. Thereis no appreciable ascites Extremities: Extremities normal, atraumatic, no cyanosis or edema Pulses: 2+ and symmetric Skin: Skin color, texture, turgor normal, no rashes or lesions Lymph nodes: Cervical, supraclavicular, and axillary nodes normal Neurologic: Normal Vitals BP 168/61 (Patient Position: Sitting) Pulse 85 Temp 36.5 ??C (97.7 ??F) (Temporal) Resp16 Ht 160 cm (5' 3) Wt 94.8 kg (209 lb) SpO2 95% BMI 37.02 kg/m?? Pathology: 01/22/21 retroperitoneal lymph node biopsy: Pending 12/25/2020 urine: High-grade urothelial carcinoma with superimposed abundant degenerative changes Labs: 01/18/2021 BUN 42, creatinine 1.3, sodium 134, potassium 4.3, WBC 10.4, hemoglobin 12.2, platelet count 347, Imagin01/06/2021 PET scan: Impression: FDG avid uptake corresponding [...] metastatic Treatment: -12/23/20 right ureteral stent placement Ms. Pichardo has new diagnosis of metastatic [...] including diabetes mellitus on insulin and hypertension. We discussed prognosis of metastatic urothelial carcinoma with median overall survival around a year and a half. I recommended her to see our urologist to discuss surgical option particularly right nephroureterectomy. We will make a referral. We discussed option of neoadjuvant chemotherapy with cisplatin and gemcitabine versus dose dense MVAC. I do not think she is a good candidate for aggressive chemotherapy with dose dense MVAC due to comorbidities. Her elevated creatinine and low creatinine clearance can preclude us from giving her cisplatin, which is nephrotoxic drug. I will obtain new CBC and CMP. We discussed benefits and the risks of cisplatin and gemcitabine. [place]-analysis of several studies of neoadjuvant chemotherapy shows 5% absolute benefit in 5 years survival.(Neoadjuvant chemotherapy in invasive bladder cancer: a systematic review and meta-analysis,The Lancet, Volume 361, Issue 4309, Pages 5971 - 3935, 03 May 2003) Risks of chemotherapy include but not limited to nausea, vomiting, fatigue, kidney failure, hearing loss, low blood counts requiring transfusion, allergic reaction, pain/numbness/tingling in extremities, blood clots, infection including life-threatening infections. All questions were answered to patient satisfaction. She is interested to proceed with chemotherapy but would like to see an urologist first. I will present her to tumor board discussion. #Right hydronephrosis: Creatinine 1.4-1.7, status post right ureteral stent placement: December 23. Plan: 1. Referral to urology 2. CBC and CMP next week 3. Next visit in 2 weeks with chemotherapy teaching by [employer] and first cycle of cisplatin/gemcitabine given her kidney function is improving The plan was discussed with the patient in details. All questions were answered to patient satisfaction. I would like to thank Dr. Renner and Dr. Lozoya for allowing me to participate in the care ofthis wonderful lady. documented in this encounter Plan of Treatment Upcoming Encounters Date Type Specialty Care Team Description 10/21/2022 Appointment Hematology and Oncology 10/21/2022 Hospital Encounter Radiology Adilene Link[address] [place] [address] (Kwadwo morataya) 10/21/2022 Appointment Radiology Adilene Link[address] [place] [address] (Wo rk) 10/21/2022 Appointment Radiology Adilene Link[address] MEDICAL ONCOLOGY [place], [place] [phone] (Kwadwo morataya) 10/25/2022 Office Visit Hematology and Oncology Alberto Guy MD [facility] DR HEMATOLOGY/[place] [address] [address] [place] [address] 11/09/2022 Office Visit Urology Bobo Davis MD [facility] DR UROLOGY [place], [place] [address] (Wo rk) Scheduled Referrals Name Type Priority Associated Diagnoses Order S chedule Referral to Outpatient Referral Routine Urothelial carcinoma Ordered: Urology of kidney, right 01/26/2021 documented as of this encounter Visit Diagnoses Diagnosis Malignant neoplasm of urinary bladder, u nspecified site Urothelial carcinoma of kidney, right documented in this encounter
--- OUTSIDE RECORDS SUMMARY | 2022-10-07 18:42 | XMS_ITS | Encounter Summary ---
:1955 Author Organization [facility] Address [facility] [place] [address] Care Team Providers Name Role Phone Unavailable Primary Care Provider Unavailable Encounter Details Date Type Department Care Team Description 02/14/2021 Telephone Urology at [facility] Bobo Davis MD [facility] [address] UROLOGY [phone] [place], [place] [address] (Wo rk) Social History Tobacco Use Types Packs/Day Years Used Date Former Smoker Cigarettes 0.25 Quit: 06/2020 Smokeless Tobacco: Never Used Sex Assigned at Date Recorded Not on file documented as of this encounter Miscellaneous Notes Telephone Encounter - Bobo Davis MD - 02/14/2021 11:38 AM EDT Call to the patient. Reviewed her recent course 20 minute conversation. She tolerated her chemotherapy well. She is tired. Her flank pain is better (essentially resolved). After hearing her flank pain has resolved and reviewing her imaging I am not convinced her stent is obstructed. Thus we will not plan a stent change next week. She will See Dr Gonsalez Monday and we can re evaluate if he has any concerns. 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 HEMATOLOGY/[place] [address] MEDICAL ONCOLOGY [place], [place] [phone] 11/09/2022 Office Visit Urology Bobo Davis MD [facility] UROLOGY [place], [place] [address] (Wo rk) documented as of this encounter Visit Diagnoses Not on filedocumented in this encounter
--- OUTSIDE RECORDS SUMMARY | 2022-10-07 18:42 | XMS_ITS | Encounter Summary ---
:1955 Author Organization [facility] [place] [address] Care Team Providers Name Role Phone Nancy Reynaga MD Primary Care Provider Encounter Details Date Type Department Care Team Description 12/21/2010 Clinical Support Same Day at [facility] [place] [address] Social History Tobacco Use Types Packs/Day Years Used Date Never Assessed Sex Assigned at Date Recorded Not on file documented as of this encounter Plan of Treatment Upcoming Encounters Date Type Specialty Care Team Description 10/21/2022 Appointment Hematology and Oncology 10/21/2022 Hospital Encounter Radiology Adilene Link[address] MEDICAL ONCOLOGY [place], [place] [phone] (Wo rk) 10/21/2022 Appointment Radiology Adilene Link [address] MEDICAL ONCOLOGY [place], [place] [phone] (Wo rk) 10/21/2022 Appointment Radiology Adilene Link [address] MEDICAL ONCOLOGY [place], [place] [phone] (Wo rk) 10/25/2022 Office Visit Hematology and Oncology Alberto Guy MD [facility] HEMATOLOGY/[place] [address] [address] [place] [address] 11/09/2022 Office Visit Urology Bobo Davis MD [facility] UROLOGY [place], [place] [address] (Wo rk) documented as of this encounter Visit Diagnoses Not on filedocumented in this encounter Care Teams Timber Poisoner Relationship Specialty Start Date End Date Nancy Reynaga MD PCP - General 10/19/10 04/01/19 [address] [place], [place] [address] documented as of this encounter
--- OUTSIDE RECORDS SUMMARY | 2022-10-07 18:42 | XMS_ITS | Encounter Summary ---
:1955 Author Organization [facility] [place] [address] Care Team Providers Name Role Phone Unavailable Primary Care Provider Unavailable Reason for Visit Reason Comments Chemotherapy Cycle 2 Day 1 Carboplatin/Ge mcitabine Treatment/Therapy Plan Authorization (Routine) - Specialty Diagnoses / Procedures Referred By Contact Refer red To Contact Diagnoses Urothelial carcinoma of kidney, right Malignant neoplasm of urinary bladder, unspecified site Neutropenia, drug-induced Alberto Bhatia MD [facility] Hem Onc Office Procedures TC PALONOSETRON HCL, 25MCG, INJECTION (ALOXI) TC APREPITANT, 1 MG, INJECTION [address] HEMATOLOGY/[place] [phone] Fax: Referral ID Status Reason Start Date Expiration Date Visits V isits Requested Authorized [id number] 02/05/2021 12/19/2021 99 99 Encounter Details Date Type Department Care Team Description 03/02/2021 Infusion Hematology Oncology at [facility] utropenia, drug-induced; [facility] Urothelial carcinoma of kidn ey, right; [address] [place] [address] Malignant neoplasm of urinar y bladder, unspecified site [place], [place] [address] Social History Tobacco Use Types Packs/Day Years Used Date Former Smoker Cigarettes 0.25 Quit: 06/2020 Smokeless Tobacco: Never Used Sex Assigned at Date Recorded Not on file documented as of this encounter Progress Notes Ledy Franklin RN - 03/02/2021 9:30 AM EDT INFUSION THERAPY ADMINISTRATION NOTES DIAGNOSIS: Urothelial cancer CYCLE #2, Day 1 REASON FOR VISIT: Carbo/Gemzar infusion SUBJECTIVE Nancy offers no complaints. OBJECTIVE LAB DATA: WBC 3.98, HGB 9.3, HCT 29.3, PLT 411, ANC 2.28, BUN 41, Cr 1.6; Seen by Dr. Bhatia prior to visit & cleared for treatmentl. IV ACCESS: PIV started at [facility] prior to arrival. Pre administration: Chemotherapy orders independently verified for drug name, route, and dosage per patient's height, weight and BSA by Ledy Franklin, MORTEZA & On-site pharmacist. REACTIONS (DESCRIPTION, TIME, INTERVENTION AND EFFECTIVENESS) none ASSESSMENT Nancy c/o feeling slightly dizzy when ambulating. Encouraged to drink only water for the rest of the day. She had 2 coffee's while here in clinic. Accompanied to car by this staff member. PLAN Return to clinic as scheduled. documented in this encounter Plan of Treatment Upcoming Encounters Date Type Specialty Care Team Description 10/21/2022 Appointment Hematology and Oncology 10/21/2022 Hospital Encounter Radiology Adilene Link[address] ONCOLOGY [place], [place] [phone] (Kwadwo morataya) 10/21/2022 Appointment Radiology Adilene Link[address] MEDICAL ONCOLOGY [place], [place] [phone] (Kwadwo morataya) 10/21/2022 Appointment Radiology Adilene Link[address] MEDICAL ONCOLOGY [place], [place] [phone] (Kwadwo morataya) 10/25/2022 Office Visit Hematology and Oncology Alberto Guy MD [facility] HEMATOLOGY/[place] [address] [address] [place] [address] 11/09/2022 Office Visit Urology Bobo Davis MD [facility] [place], [place] [address] (Wo rk) documented as of this encounter Visit Diagnoses Diagnosis Neutropenia, drug-induced Drug induced neutropenia Urothelial carcinoma of kidney, right Malignant neoplasm of urinary bladder, u nspecified site documented in this encounter Administered Medications Inactive Administered Medications - up to 3 most recent administrations Medication Order MAR Action Action Date Dose Rate Site aprepitant (CINVANTI) injection Given 03/02/2021 10:42 AM EDT 13 0 mg Emul 130 mg 130 mg, Intravenous, ONCE, 1 dose, On Mon03/02/21 at 1030, Alternative administration of IV push over 2 minutes is a recommendation from the sap basis consultant. Administer prior to chemotherapy., Routine CARBOplatin (Paraplatin) 369 mg New Bag 03/02/2021 11:34 AM ED T 369 mg 573.8 mL/hr in dextrose 5% 286.9 mL infusion 369 mg (rounded from 368.5 mg, Target AUC = 5), Intravenous, ONCE, 1 dose, On Mon03/02/21 at 1130, Administer over 30 Minutes, Warning Vesicant/Irritant Medication dexamethasone (Decadron) tablet 10 mg Given 03/02/2021 10:38 AM EDT 10 mg 10 mg, Oral, ONCE, 1 dose, On Mon03/02/21 at 1030, Administer prior to chemotherapy, Routine GEMcitabine 2,000 mg in sodium New Bag 03/02/2021 12:17 PM EDT 2,000 mg 605.2 mL/hr chloride 0.9% 302.6 mL infusion 2,000 mg, Intravenous, ONCE, 1 dose, On Mon03/02/21 at 1130, Administer over 30 Minutes, Warning Vesicant/Irritant Medication Dose Ordered = 2050 mg (1000 mg/m2). Pharmacist rounded dose per procedure. palonosetron (Aloxi) (0.25 mg/mL) injection Given 04/2021 10:43 AM EDT 0.25 mg 0.25 mg 0.25 mg, Intravenous, ONCE, 1 dose, On 03/02/21 at 1030, Administer over 30 seconds. Administer prior to chemotherapy, Routine sodium chloride 0.9% infusion New Bag 03/02/2021 10:43 AM EDT 100 mL/hr 100 mL/hr 100 mL/hr, Intravenous, CONTINUOUS, Starting on e 03/02/21 at 1030, Until Mon03/02/21 at 1530 documented in this encounter
--- OUTSIDE RECORDS SUMMARY | 2022-10-07 18:42 | XMS_ITS | Encounter Summary ---
:1955 Author Organization [facility] Address [facility] [address] [place] [address] Care Team Providers Name Role Phone Unavailable Primary Care Provider Unavailable Encounter Details Date Type Department Care Team Description 12/18/2020 Ancillary Procedure Radiology Library [place] [facility] [address] [phone] Social History Tobacco Use Types Packs/Day Years Used Date Current Some Day Smoker Cigarettes 0.25 Smokeless Tobacco: Never Used Sex Assigned at Date Recorded Not on file documented as of this encounter Plan of Treatment Upcoming Encounters Date Type Specialty Care Team Description 10/21/2022 Appointment Hematology and Oncology 10/21/2022 Hospital Encounter Radiology Adilene Link[address] MEDICAL ONCOLOGY [place], [place] [phone] (Wo rk) 10/21/2022 Appointment Radiology Adilene Link [address] MEDICAL ONCOLOGY [place], [place] [phone] (Wo rk) 10/21/2022 Appointment Radiology Adilene Link[address] MEDICAL ONCOLOGY [place], [place] [phone] (Wo rk) 10/25/2022 Office Visit Hematology and Oncology Alberto Guy MD [facility] DR HEMATOLOGY/[place] [address] Adilene Link, [address] [place] [address] 11/09/2022 Office Visit Urology Bobo Davis MD [facility] UROLOGY [place], [place] [address] (Wo rk) documented as of this encounter Procedures Procedure Name Priority Date/Time Associated Comments Diagnosis FILM LIBRARY STORAGE Routine 12/18/2020 12:05 AM Results for this ONLY ULTRASOUND EST procedure ar e in STUDY the results section. documented in this encounter Results Film Library- Storage Only Ultrasound Study (12/18/2020 12:05 AM EST) Specimen (Source) Anatomical Location Collection Method / Collectio n Time Received Time / Laterality Volume Narrative LAISHA LA - 01/21/2021 4:14 PM EST This exam is auto-finalizing. It's purpo se is for storage only. Zenon Lozoya MD IMG FILM LIBRARY ORDERABLES Performing Organization Address City/State/ZIP Code Phon e Number BESSIE BESSIE [place], [place] documented in this encounter Visit Diagnoses Not on filedocumented in this encounter
--- OUTSIDE RECORDS SUMMARY | 2022-10-07 18:42 | XMS_ITS | Encounter Summary ---
:1955 Author Organization [facility] [place] [address] Care Team Providers Name Role Phone Nancy Reynaga MD Primary Care Provider Encounter Details Date Type Department Care Team Description 12/21/2010 Office Visit [facility] [place] [facility] Dennis fernández [place] [address] [place] [address] [phone] (Wo rk) Social History Tobacco Use Types Packs/Day Years Used Date Never Assessed Sex Assigned at Date Recorded Not on file documented as of this encounter Plan of Treatment Upcoming Encounters Date Type Specialty Care Team Description 10/21/2022 Appointment Hematology and Oncology 10/21/2022 Hospital Encounter Radiology Adilene Link[address] MEDICAL ONCOLOGY [place], [place] [phone] (Wo rk) 10/21/2022 Appointment Radiology Adilene Link [address] MEDICAL ONCOLOGY [place], [place] [phone] (Wo rk) 10/21/2022 Appointment Radiology Adilene Link[address] MEDICAL ONCOLOGY [place], [place] [phone] (Wo rk) 10/25/2022 Office Visit Hematology and Oncology Alberto Guy MD [facility] DR HEMATOLOGY/[place] [address] Adilene Link, [address] MEDICAL ONCOLOGY [place], [place] [address] 11/09/2022 Office Visit Urology Bobo Davis MD [facility] UROLOGY [place], [place] [address] (Wo rk) documented as of this encounter Visit Diagnoses Not on filedocumented in this encounter Care Teams Web Analytics Developer Relationship Specialty Start Date End Date Nancy Reynaga MD PCP - General 10/19/10 04/01/19 [address] [place], [place] [address] documented as of this encounter
--- OUTSIDE RECORDS SUMMARY | 2022-10-07 18:42 | XMS_ITS | Encounter Summary ---
:1955 Author Organization [facility] [place] [place] [address] Care Team Providers Name Role Phone Unavailable Primary Care Provider Unavailable Encounter Details Date Type Department Care Team Description 02/04/2021 Multidisciplinary Care Hematology and Jannette, Committee Oncology at [place] MD Alberto [facility] [address] [place] HEMATOLOGY/ONCOL [address] OGY [phone] [place] [address] Social History Tobacco Use Types Packs/Day Years Used Date Former Smoker Cigarettes 0.25 Quit: 06/2020 Smokeless Tobacco: Never Used Sex Assigned at Date Recorded Not on file documented as of this encounter Progress Notes Alberto Bhatia MD - 02/04/2021 11:59 PM EST - Tumor Board Note Date Presented: 02/04/21 Presenting Physician: Jannette Diagnosis/Tumor Site: Is this Metastatic Disease: Yes Synopsis of History/HPI: 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 Surgery would not be curative as they could not get clear margins Recommendations: Medical Oncology consult for chemotherapy DISCLAIMER: The patient was discussed and the tumor board made recommendations but it is ultimately up to the treatment provider(s) and the patient to determine the patient???s care. documented in this encounter Plan of Treatment Upcoming Encounters Date Type Specialty Care Team Description 10/21/2022 Appointment Hematology and Oncology 10/21/2022 Hospital Encounter Radiology Adilene Link[address] MEDICAL ONCOLOGY [place], [place] [phone] (Wo rk) 10/21/2022 Appointment Radiology Adilene Link[address] ONCOLOGY [place], [place] [address] [phone] (Wo rk) 10/21/2022 Appointment Radiology Adilene Link[address] MEDICAL ONCOLOGY [place], [place] [address] [phone] (Wo rk) 10/25/2022 Office Visit Hematology and Oncology Alberto Guy MD [facility] DR HEMATOLOGY/[place] [address] [address] Link [address] MEDICAL ONCOLOGY [place], [place] [phone] 11/09/2022 Office Visit Urology Bobo Davis MD [facility] DR UROLOGY [place], [place] [address] (Wo rk) documented as of this encounter Visit Diagnoses Not on filedocumented in this encounter
--- OUTSIDE RECORDS SUMMARY | 2022-10-07 18:42 | XMS_ITS | Encounter Summary ---
:1955 Author Organization [facility] [address] Care Team Providers Name Role Phone Unavailable Primary Care Provider Unavailable Encounter Details Date Type Department Care Team Description 02/10/2021 Clinical Support Hematology/Oncology Adilene Link, Urothelial carcinoma at [facility] HAND REAMER of kidney, right [address] [place], [place] MED[place] [address] [place], [place] [phone] Social History Tobacco Use Types Packs/Day Years Used Date Former Smoker Cigarettes 0.25 Quit: 06/2020 Smokeless Tobacco: Never Used Sex Assigned at Date Recorded Not on file documented as of this encounter Last Filed Vital Signs Vital Sign Reading Time Taken Comments Blood Pressure 167/56 02/10/2021 8:46 AM EDT Pulse 90 02/10/2021 8:46 AM EDT Temperature 36.2 ??C (97.2 ??F) 02/10/2021 8:46 AM EDT Respiratory Rate 20 02/10/2021 8:46 AM EDT Oxygen Saturation 98% 02/10/2021 8:46 AM EDT Inhaled Oxygen Concentration - - Weight 93.4 kg (206 lb) 02/10/2021 8:46 AM EDT Height 160 cm (5' 3) 02/10/2021 8:46 AM EDT Body Mass Index 36.49 02/10/2021 8:46 AM EDT documented in this encounter Progress Notes Adilene Link, HAND REAMER - 02/10/2021 9:00 AM EDT Images from the original [...] creatinine of 0.5 in October 2019. INTERVAL HPI(02/10/21)- Nancy returns to the [facility] today to begin chemotherapy for herurothelial cancer. She is accompanied by her Derek today. She was in the ED at [facility] yesterday with right flank pain and concern about her recent stent being nonfunctioning. She was having some dysuria and edema in her feet. She had a CT scan and was found to have a UTI. She was started on Keflex and is feeling better today. She is still having some discomfort in her right side but it is notas bad as yesterday.Denies any hematuria. She denies any fevers or chills. Edema in her feet has resolved. She has a follow up appointment at [facility] in three days for stent exchange. PMH: PTSD/depression, diabetes mellitus on insulin, arthritis, , hernia repair x3, anxiety,hysterectomy for urinary incontinence 2 to 3 years ago Social History: [id number] smoking history, quit 6 months ago, does [...] Antibiotics) Medications: Your Medications Accurate as of February 10, 2021 12:28 PM. If you have any questions, ask your nurse or doctor. Continued medications, unchanged Dose Details amLODIPine 5 mg Tab Commonly known as: Norvasc TAKE ONE TABLET BY MOUTH EVERY DAY Refills: 0 blood sugar diagnostic strips Strp 1 strip by NOT APPLICABLE route Three times a day. 1 strip Refills: 0 celecoxib 100 mg Cap Commonly known as: CeleBREX TAKE ONE CAPSULE BY MOUTH EVERY 12 HOURS NEEDED Refills: 0 * cephALEXin 250 mg Cap Commonly known as: Keflex Take 250 mg by mouth 4 times daily. 250 mg Refills: 0 * cephALEXin 500 mg Cap Commonly known as: Keflex TAKE ONE CAPSULE BY MOUTH THREE TIMES A DAY FOR 7 DAYS Refills: 0 cholecalciferol (Vitamin D3) 1,000 unit Tab Commonly known as: Vitamin D3 Take 1,000 Units by mouth Daily. 1,000 Units Refills: 0 furosemide 20 mg Tab Commonly known as: Lasix TAKE ONE TABLET BY MOUTH EVERY DAY FOR 10 DAYS Refills: 0 * hydroCHLOROthiazide 12.5 mg Tab Commonly known as: Hydrodiuril Take 12.5 mg by mouth Daily. 12.5 mg Refills: 0 * hydroCHLOROthiazide 12.5 mg Tab Commonly known as: Hydrodiuril TAKE 1 TABLET BY MOUTH DAILY Refills: 0 * Insulin Tresiba FlexTouch U-100 100 unit/mL (3 mL) Inpn Inject 58 Units subcutaneously daily. Generic drug: insulin degludec 58 Units Refills: 0 * insulin degludec 100 unit/mL (3 mL) Inpn Inject 52 Units subcutaneously. 52 Units Refills: 0 ketorolac 10 mg Tab Commonly known as: Toradol TAKE ONE TABLET BY MOUTH EVERY 6 HOURS NEEDED FOR 5 DAYS Refills: 0 lamoTRIgine 100 mg Tab Commonly known as: LaMICtal Refills: 0 * losartan 100 mg Tab Commonly known as: COZAAR Take 100 mg by mouth daily. 100 mg Refills: 0 * losartan 50 mg Tab Commonly known as: Cozaar Take 100 mg by mouth Daily. 100 mg Refills: 0 nystatin-triamcinolone Crea Commonly known as: [...] a tablet daily. 25 mg Refills: 0 Victoza 3-Dean 0.6 mg/0.1 mL (18 mg/3 mL) Pnij Generic drug: liraglutide Refills: 0 VITAMIN D ORAL Take by mouth. Refills: 0 * This list has 8 medication(s) that are the same as other medications prescribed for you. Read thedirections carefully, and ask your doctor or other care provider to review them with you. Review of Systems Constitutional: Positive for appetite change. Negative for chills and fever. Eyes: Negative for icterus. Respiratory: Negative for cough and shortness of breath. Cardiovascular: Negative for chest pain and leg swelling. Genitourinary: Positive for dysuria. Negative for difficulty urinating and hematuria. Musculoskeletal: Positive for flank pain. Right flank [...] Thought content normal. Judgment: Judgment normal. BP 167/56 (Patient Position: Sitting) Pulse 90 Temp 36.2 ??C (97.2 ??F) (Temporal) Resp 20 Ht 160 cm (5' 3) Wt 93.4 kg (206 lb) SpO2 98% BMI 36.49 kg/m?? Wt Readings from Last 3 Encounters: 02/10/21 93.4 kg (206 lb) 01/26/21 94.8 kg (209 lb) Pathology: 01/22/21 retroperitoneal lymph node biopsy: Pending 12/25/2020 urine: High-grade urothelial carcinoma with superimposed abundant degenerative changes Labs: 02/09/21- WBC-12.17 Hgb/Hct-10.5/32.6 MCV-87.6 Plt-427 ANC-9.29 Na-138 [...] around a year and a half was discussed by Dr. Bhatia. She was referred to our urologist to discuss surgical option particularly right nephroureterectomy. #Right hydronephrosis: Creatinine 1.4-1.7, status post right ureteral stent placement: December 23. # UTI- currently on Keflex 250mg po QID X 18 doses. TREATMENT PLAN: Carboplatin AUC 5 D 1 and Gemcitabine 1,000 mg/m2 Days 1 and 8 every 21 days for 4 cycles. The following information was reviewed with the patient and . Antitumor Therapy Schedule: You will recieve 2 drugs on week one. Carboplatin will infuse for 60 minutes and Gemcitabine will infuse for 30 mintues. On week 2 you will get Gemcitabine only. You then have a week off. Laboratory Tests: You will need to have labs each week prior to infusions. You do not need labs on your week off unless we ask you to do this. Provider Visits: You will see a provider prior to every infusion to review your labs and see how youare doing with the treatments. Possible Side Effects include, but are not limited to: Carboplatin: The most common side effects include decrease in blood counts (decrease in white blood cells, red blood cells and platelets resulting in increased risk of infection, anemia and bleeding), nausea and vomiting, taste changes, hair loss, weakness, low magnesium level. Less common side effects include infusion reaction, diarrhea or constipation, mouth sores, kidney dysfunction, ringing in the ears or hearing loss, electrolyte abnormalities. Gemcitabine (Gemzar): The most common potential side effects include: Decrease in blood counts (decrease in white blood cells, red blood cells and platelets, resulting in increased risk of infection, anemia and bleeding), body rash. Less common side effects include hair thinning or loss, flu-like symptoms, diarrhea, fluid retention. Plan: Nancy was given written information regarding treatment regimen, side effects and management strategies. She was given an opportunity to ask questions and verbalized understanding of the information and treatment plan. No barriers to learning were identified.Nancy was counseled on how to call for any further questions or concerns. We reviewed side effects of medications, symptom management, howand when to call clinic, home safety and emergency procedures. ??? Treatment is scheduled to begin today. ??? Testing/Diagnostics o Baseline blood work was reviewed and is adequate for treatment ??? Supportive Care: Her is very supportive and here with her today. She has visiting nurseslatanya a week currently. ??? Fertility: N/A ??? Smoking cessation: N/a ??? Advance Directives: She does not have Advance directives. Will refer to social work to assist with completion. ??? 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 She is asking appropriate questions. ??? Follow up: Return to clinic in one week with labs and infusion. 60 minutes of this 60 minute face to face encounter was spent in counseling, education and coordination of care. Nancy voiced understanding of the plan and [...] and Oncology 10/21/2022 Hospital Encounter Radiology Adilene Link[address] [address] (Wo rk) 10/21/2022 Appointment Radiology Adilene Link[address] [address] (Wo rk) 10/21/2022 Appointment Radiology Adilene Link[address] [place] [address] (Wo rk) 10/25/2022 Office Visit Hematology and Oncology Alberto Guy MD [facility] DR HEMATOLOGY/[place] [address] [address] [place] [address] 11/09/2022 Office Visit Urology Bobo Davis MD [facility] DR UROLOGY [place], [place] [address] (Wo rk) documented as of this encounter Visit Diagnoses Diagnosis Urothelial carcinoma of kidney, right documented in this encounter
--- OUTSIDE RECORDS SUMMARY | 2022-10-07 18:42 | XMS_ITS | Encounter Summary ---
:1955 Author Organization [facility] [place] [address] Care Team Providers Name Role Phone Unavailable Primary Care Provider Unavailable Encounter Details Date Type Department Care Team Description 03/02/2021 Telephone Hematology/Oncology at [address] [phone] Social History Tobacco Use Types Packs/Day Years Used Date Former Smoker Cigarettes 0.25 Quit: 06/2020 Smokeless Tobacco: Never Used Sex Assigned at Date Recorded Not on file documented as of this encounter Miscellaneous Notes Telephone Encounter - Michelle Ann RD - 03/02/2021 3:36 PM EDT Nutrition Follow Up - phone call Seen By: Michelle Ann RD LD Referred by: patient request Patient and diagnosis: Nancy Pichardo is 65 [...] Urinary incontinence R32 ??? 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 as calculated from the following: Height as of an earlier encounter on 03/02/21: 160 cm (5' 2.99). Weight as of an earlier encounter on 03/02/21: 92.5 kg (204 lb). Wt Readings from Last 3 Encounters: 03/02/21 92.5 kg (204 lb) 02/16/21 91.2 kg (201 lb) 02/10/21 93.4 kg (206 lb) Nutrition Assessment: Patient now has CGM, which has been very helpful for her so far. She continues to report low appetite/early satiety. Dysgeusia limits her food options, particularly with protein sources. Meat is unappealing, but she does enjoy ~6 oz fish per day. Salads are more appealing to her and she finds even helpful for her bowels. She requests any additional food recommendations. Supplements/Frequency: n/a ___ Ensure/Plus ___ Boost/Plus ___ CIB ___ Other: Teas, vitamins, or other nutritional supplements: vitamin D per medication list Food allergies or avoidances: n/a Appetite: fair/variable Nausea: +mild Vomiting: n/a Chewing: n/a Dentition: n/a Swallowing: n/a Taste Changes: +changes every couple of hours Bowels: occasional constipation Nutrition Intervention: ? Discussed protein content of foods and provided suggestions to help patient meet protein needs; will send list in mail as well ? Encouraged small, frequent nutrient dense meals/snacks ? Nutrition supplements: discussed plant-based, low sugar option to try to supplement oral intake when appetite is low Monitoring and Evaluation: Will continue to be available to patient as needed. documented in this encounter Plan of Treatment Upcoming Encounters Date Type Specialty Care Team Description 10/21/2022 Appointment Hematology and Oncology 10/21/2022 Hospital Encounter Radiology Adilene Link[address] MEDICAL ONCOLOGY [place], [place] [phone] (Wo rk) 10/21/2022 Appointment Radiology Adilene Link[address] [place] [address] (Wo rk) 10/21/2022 Appointment Radiology Adilene Link[address] [place]COLOGY [place], [place] [address] (Wo rk) 10/25/2022 Office Visit Hematology and Oncology Alberto Guy MD [facility] DR HEMATOLOGY/[place] [address] [address] MEDICAL ONCOLOGY [place], [place] [phone] 11/09/2022 Office Visit Urology Bobo Davis MD [facility] UROLOGY [place], [place] [address] (Wo rk) documented as of this encounter Visit Diagnoses Not on filedocumented in this encounter
--- OUTSIDE RECORDS SUMMARY | 2022-10-07 18:42 | XMS_ITS | Encounter Summary ---
:1955 Author Organization [facility] [place] [address] Care Team Providers Name Role Phone Unavailable Primary Care Provider Unavailable Encounter Details Date Type Department Care Team Description 05/08/2020 Telephone D[facility]atology at [facility] Malu Cummings [address] [place] [address] Social History Tobacco Use Types Packs/Day Years Used Date Current Some Day Smoker Cigarettes 0.25 Smokeless Tobacco: Never Used Sex Assigned at Date Recorded Not on file documented as of this encounter Miscellaneous Notes Telephone Encounter - Malu Cummings - 05/08/2020 10:53 AM EDT Spoke with patient who declines to schedule appt at this time. Patient has been given the direct line to our paralegal secretary to schedule her FSE with Dr. Colin at her convenience. documented in this encounter Plan of Treatment Upcoming Encounters Date Type Specialty Care Team Description 10/21/2022 Appointment Hematology and Oncology 10/21/2022 Hospital Encounter Radiology Adilene Link, [address] MEDICAL ONCOLOGY [place], [place] [phone] (Wo rk) 10/21/2022 Appointment Radiology Adilene Link, [address] MEDICAL ONCOLOGY [place], [place] [phone] (Wo rk) 10/21/2022 Appointment Radiology Adilene Link [address] [place] [address] (Wo rk) 10/25/2022 Office Visit Hematology and Oncology Alberto Guy MD [facility] HEMATOLOGY/[place] [address] [address] MEDICAL ONCOLOGY [place], [place] [address] 11/09/2022 Office Visit Urology Bobo Davis MD [facility] UROLOGY [place], [place] [address] (Wo rk) documented as of this encounter Visit Diagnoses Not on filedocumented in this encounter
--- OUTSIDE RECORDS SUMMARY | 2022-10-07 18:42 | XMS_ITS | Encounter Summary ---
:1955 [place] [address] Care Team Providers Name Role Phone Nancy Reynaga MD Primary Care Provider Encounter Details Date Type Department Care Team Description 12/21/2010 Orders Only Internal Medicine at [facility] Brittny Haji MD [facility] [place] [address] [facility] [phone] [place] [address] (Wo rk) Social History Tobacco Use Types Packs/Day Years Used Date Never Assessed Sex Assigned at Date Recorded Not on file documented as of this encounter Plan of Treatment Upcoming Encounters Date Type Specialty Care Team Description 10/21/2022 Appointment Hematology and Oncology 10/21/2022 Hospital Encounter Radiology Adilene Link [address] MEDICAL ONCOLOGY [place], [place] [phone] (Wo rk) 10/21/2022 Appointment Radiology Adilene Link [address] MEDICAL ONCOLOGY [place], [place] [phone] (Wo rk) 10/21/2022 Appointment Radiology Adilene Link, [address] MEDICAL ONCOLOGY [place], [place] [phone] (Wo rk) 10/25/2022 Office Visit Hematology and Oncology Alberto Guy MD [facility] DR HEMATOLOGY/[place] [address] Adilene Link, CARDBOARD INSERTER [address] [place] [address] [place] [address] 11/09/2022 Office Visit Urology Bobo Davis MD [facility] UROLOGY [place], [place] [address] (Wo rk) documented as of this encounter Procedures Procedure Name Priority Date/Time Associated Comments Diagnosis DIFFERENTIAL, Routine 12/21/2010 4:35 PM Results for this AUTOMATED EST procedure are i n the results section. CREATININE Routine 12/21/2010 4:35 PM Results f or this EST procedure are i n the results section. ABO/RH TYPING Routine 12/21/2010 4:35 PM Results for this EST procedure are i n the results section. CBC (WITH DIFF) Routine 12/21/2010 4:35 PM Result s for this EST procedure are i n the results section. ANTIBODY SCREEN Routine 12/21/2010 4:35 PM Result s for this EST procedure are i n the results section. CANCER ANTIGEN 125 Routine 12/21/2010 4:35 PM Res ults for this EST procedure are i n the results section. BUN Routine 12/21/2010 4:35 PM Results f or this EST procedure are i n the results section. ELECTROLYTES PANEL Routine 12/21/2010 4:35 PM Res ults for this EST procedure are i n the results section. documented in this encounter Results (ABNORMAL) REFLEX LAB-A-DIFF (12/21/2010 4:35 PM EST) [facility] gist Method Time Signature Neutrophils % 68.4 34.0 - CERNER 71.0 % MILLENNIUM Neutr Abs (ANC) 7.30 (H) 1.50 - CERNER 6.30 MILLENNIUM x10(3)/mc L Lymphocytes % 24.0 19.0 - CERNER 53.0 % MILLENNIUM Lymphocytes Abs 2.6 1.0 - 3.6 CERNER x10(3)/mc MILLENNIUM L Monocytes % 5.3 4.0 - CERNER 13.0 % MILLENNIUM Monocyte Abs 0.6 0.2 - 1.0 CERNER x10(3)/mc MILLENNIUM L Eosinophils % 1.4 0.0 - 7.0 CERNER % MILLENNIUM Eosinophils Abs 0.2 0.0 - 0.5 CERNER x10(3)/mc MILLENNIUM L Basophils % 0.6 0.0 - 2.0 CERNER % MILLENNIUM Basophils Abs 0.1 0.0 - 0.2 CERNER x10(3)/mc MILLENNIUM L Immature Gran % 0.30 0.00 - CERNER 0.66 % MILLENNIUM Comment: Immature granulocytes(IG's)percentage an d absolute count will include metamyelocytes, myelocytes, and promyelo cytes. Blood smears from CBCs yielding IG's will be scanned manually for concor dance. If this scan disagrees with the automated IG or if promyelocytes are not ed, a manual differential will be performed. [place] Gran Abs 0.03 0.00 - 0.05 x10(3)/mcL CER NER MILLENNIUM Specimen Anatomical Collection Method Collection Time Receive d Time (Source) Location / / Volume Laterality Blood specimen 12/21/2010 4:35 PM 011 4:39 (specimen) EST PM EST Brittny Haji MD HEMATOLOGY ORDERABLES Performing Organization Address City/State/ZIP Code Phon e Number [place] [phone] CERNER MILLENNIUM CANCER ANTIGEN 125 (12/21/2010 4:35 PM EST) P athologist Signature CA 125 9 <=20 u/ml CERNER MILLENNIUM Comment: Beginning 10/27/08 the CA125 assay will b e performed by a new method. ??This new method will yield results that are, on a verage, 20% lower than the previous method. ??If you have been monitoring pa magis, please interpret serial CA125 results with caution with regards to the reports dated after 10/26/08, taking into account this downshift. ??No adjust ment is needed for new patients being monitored after 10/26/08. ??The new refe rence range for the assay will be <21 U/mL versus <35 U/mL with the previous m ethod. ??If you have any questions, please contact the lab at [phone]. Specimen Anatomical Collection Method Collection Time Receive d Time (Source) Location / / Volume Laterality Blood specimen 12/21/2010 4:35 PM 011 8:11 (specimen) EST AM EST Brittny Haji MD CHEMISTRY ORDERABLES Performing Organization Address City/[facility]/[place] [address] CERNER MILLENNIUM (ABNORMAL) CBC (12/21/2010 4:35 PM EST) P athologist Signature WBC 10.7 (H) 4.0 - 10.0 CERNER x10(3)/mcL MILLENNIUM RBC 4.38 3.93 - CERNER 5.22 MILLENNIUM x10(6)/mcL Hemoglobin 13.7 11.2 - CERNER 15.7 gm/dL MILLENNIUM Hematocrit 41.3 34.0 - CERNER 45.0 % MILLENNIUM MCV 94.3 (H) 79.0 - CERNER 94.0 fL MILLENNIUM MCH 31.3 26.6 - CERNER 32.2 pg MILLENNIUM MCHC 33.2 32.0 - CERNER 36.5 gm/dL MILLENNIUM Platelets 262 145 - 370 CERNER x10(3)/mcL MILLENNIUM RDWSD 44.9 35.0 - CERNER 46.0 fL MILLENNIUM RDWCV 13.0 10.9 - CERNER 14.4 % MILLENNIUM MPV 11.6 9.0 - 12.0 CERNER fL MILLENNIUM Specimen Anatomical Collection Method Collection Time Receive d Time (Source) Location / / Volume Laterality Blood specimen 12/21/2010 4:35 PM 011 4:39 (specimen) EST PM EST Brittny Haji MD HEMATOLOGY ORDERABLES Performing Organization Address City/[facility]/[place] [address] CERNER MILLENNIUM (ABNORMAL) CREATININE, SERUM (12/21/2010 4:35 PM EST) Analysis Performed At Patho logist Time Signature Creatinine 0.50 (L) 0.70 - CERNER 1.20 mg/dL MILLENNIUM [...] Location / / Volume Laterality Blood specimen 12/21/2010 4:35 PM 011 4:39 (specimen) EST PM EST Brittny Haji MD CHEMISTRY ORDERABLES Performing Organization Address City/State/[place] [address] CERNER MILLENNIUM (ABNORMAL) BUN (12/21/2010 4:35 PM EST) P athologist Signature BUN 20 (H) 8 - 18 CERNER mg/dL MILLENNIUM Specimen Anatomical Collection Method Collection Time Receive d Time (Source) Location / / Volume Laterality Blood specimen 12/21/2010 4:35 PM 011 4:39 (specimen) EST PM EST Brittny Haji MD CHEMISTRY ORDERABLES Performing Organization Address City/State/ZIP Code Phon e Number [address] [facility] MILLENNIUM ELECTROLYTE PANEL (12/21/2010 4:35 PM EST) P athologist Signature Sodium 141 135 - 145 CERNER mmol/L MILLENNIUM Potassium 4.2 3.5 - 5.0 CERNER mmol/L MILLENNIUM Comment: Please note: ??Patients with WBC >100,00 0 may have falsely elevated Potassium levels. ??For accurate Potassium quantif ication in these patients send serum separator tube (gold top) for subsequent determinations. ??Contact the Clinical Chemistry Laboratory if there are any qu estions. Chloride 105 98 - 107 mmol/L CERNER MILLENN IUM CO2 27 22 - 31 mmol/L CERNER MILLENNI UM Anion Gap 9 5 - 15 mmol/L CERNER MILLENNIU M Specimen Anatomical Collection Method Collection Time Receive d Time (Source) Location / / Volume Laterality Blood specimen 12/21/2010 4:35 PM 011 4:39 (specimen) EST PM EST Brittny Haji MD CHEMISTRY ORDERABLES Performing Organization Address City/[facility]/ZIP Code Phon e Number [address] CERNER MILLENNIUM REFLEX LAB-ANTIBODY SCREEN (12/21/2010 4:35 PM EST) Analysis Performed At Patho logist Time Signature Ab Screen Negative [facility] Expires at [id number] CERNER 9 on: MILLENNIUM Specimen Anatomical Collection Method Collection Time Receive d Time (Source) Location / / Volume Laterality Blood specimen 12/21/2010 4:35 PM 011 4:39 (specimen) EST PM EST Brittny Haji MD BLOOD BANK ORDERABLES Performing Organization Address City/[facility]/ZIP Code Phon e Number [address] [facility] REFLEX LAB-ABO/RH (12/21/2010 4:35 PM EST) P athologist Signature ABORh Type A Neg CERNER [facility] Specimen Anatomical Collection Method Collection Time Receive d Time (Source) Location / / Volume Laterality Blood specimen 12/21/2010 4:35 PM 011 4:39 (specimen) EST PM EST Brittny Haji MD BLOOD BANK ORDERABLES Performing Organization Address City/State/ZIP Code Phon e Number [place] [phone] [facility] documented in this encounter Visit Diagnoses Not on filedocumented in this encounter Care Teams Primary Special Education Teacher Relationship Specialty Start Date End Date Nancy Reynaga MD PCP - General 10/19/10 04/01/19 [address] [place] [address] documented as of this encounter
--- OUTSIDE RECORDS SUMMARY | 2022-10-07 18:42 | XMS_ITS | Encounter Summary ---
:1955 Author Organization [facility] Address [facility] [place] [address] Care Team Providers Name Role Phone Unavailable Primary Care Provider Unavailable Encounter Details Date Type Department Care Team Description 02/10/2021 Notes Only Hematology/Oncology at Julia Morris MSW [facility] OFFICE OF CARE [address] [place] [address] MANAGEMENT [place], [place] [phone] Social History Tobacco Use Types Packs/Day Years Used Date Former Smoker Cigarettes 0.25 Quit: 06/2020 Smokeless Tobacco: Never Used Sex Assigned at Date Recorded Not on file documented as of this encounter Progress Notes Julia Morris MSW - 02/10/2021 10:17 AM EDT Reason for Referral: Brief assessment of social and emotional needs. Met with pt during her infusionvisit today. Social Supports: Pt identified her of 15 years as her primary support. Pt has a daughter wholives in [place] and is not readily available to her. Living Situation/Daily Activities/Transportation: Pt indicated she can tend to her own personal care. She has VNA services with a nurse visiting once a week and a RETAIL DIRECTOR for a shower once a week. Pt indicated her home is accessible and she has set up a hospital bed on the first floor. She is unable to doany chores due to fatigue and unsteadiness on her feet. She indicated she has better days than others. Her transported her today and she is figuring this out once she has her schedule. Transportation may be an issues and JOANNA will follow up with her re this. 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 She stopped working about 3.5 years ago. She has a limited amount of income from . Her worksfull time days at the local [employer]. Pt has Medicare and BCBS for insurance. She is concerned about outof pocket medical expenses. Gave her a NSA application for [facility] with the contact number to PFS. Advance Directives: Pt has not completed her advance directives. Gave her a copy of the Vt booklet/form to review and complete as it is something she has been thinking about. Offered to assist pt with this if she is interested in completing her directive. Utilization of Community Resources: VNA services Adjustment to Illness/Mental Health Issues: Pt indicated she has good days and bad days. She is trying to be as independent as possible but she has daily challenges. She does feel supported by her family and friends. Offered support. Identified Needs: Transportation may be an issues and pt is waiting for a schedule to see if husbandor friends can transport her. Can assess further. Referrals: No referrals at this time. Plan: Informed pt of [facility] availability and contact information. Will follow for support and resources. documented in this encounter Plan of Treatment Upcoming Encounters Date Type Specialty Care Team Description 10/21/2022 Appointment Hematology and Oncology 10/21/2022 Hospital Encounter Radiology Adilene Link[address] MEDICAL ONCOLOGY [place], [place] [phone] (Kwadwo morataya) 10/21/2022 Appointment Radiology Adilene Link[address] MEDICAL ONCOLOGY [place], [place] [phone] (Kwadwo morataya) 10/21/2022 Appointment Radiology Adilene Link[address] MEDICAL ONCOLOGY [place], [place] [phone] (Kwadwo morataya) 10/25/2022 Office Visit Hematology and Oncology Alberto Guy MD [facility] HEMATOLOGY/[place] [address] Adilene Link [address] [place] [address] 11/09/2022 Office Visit Urology Bobo Davis MD [facility] UROLOGY [place], [place] [address] (Wo rk) documented as of this encounter Visit Diagnoses Not on filedocumented in this encounter
--- OUTSIDE RECORDS SUMMARY | 2022-10-07 18:42 | XMS_ITS | Encounter Summary ---
:1955 Author Organization [facility] Address [facility] [place] [address] Care Team Providers Name Role Phone Unavailable Primary Care Provider Unavailable Reason for Visit - Closed Specialty Diagnoses / Procedures Referred By Contact Refer red To Contact Procedures Zenon Lozoya MD Film Library- Storage Only CT [address] [place] [address] Referral ID Status Reason Start Date Expiration Date Visits Requ ested Visits Authorized [id number] Closed 02/03/2021 02/03/2022 1 1 Encounter Details Date Type Department Care Team Description 01/22/2021 Ancillary Procedure Radiology Library at Lakhwinder Lozoya [facility] [address] [place] [id number] Social History Tobacco Use Types Packs/Day Years Used Date Current Some Day Smoker Cigarettes 0.25 Smokeless Tobacco: Never Used Sex Assigned at Date Recorded Not on file documented as of this encounter Plan of Treatment Upcoming Encounters Date Type Specialty Care Team Description 10/21/2022 Appointment Hematology and Oncology 10/21/2022 Hospital Encounter Radiology Adilene Link [address] MEDICAL ONCOLOGY [place], [place] [phone] (Wo rk) 10/21/2022 Appointment Radiology Adilene Link [address] MEDICAL ONCOLOGY [place], [place] [phone] (Wo rk) 10/21/2022 Appointment Radiology Adilene Link[address] MEDICAL ONCOLOGY [place], [place] [phone] (Wo rk) 10/25/2022 Office Visit Hematology and Oncology Alberto Guy MD [facility] DR HEMATOLOGY/[place] [address] MEDICAL ONCOLOGY [place], [place] [phone] 11/09/2022 Office Visit Urology Bobo Davis MD [facility] UROLOGY [place], [place] [address] (Wo rk) documented as of this encounter Procedures Procedure Name Priority Date/Time Associated Diagnosis Comme nts FILM LIBRARY Routine 01/22/2021 12:00 AM Results for this STORAGE ONLY CT EST procedure ar e in ABDOMEN the results section. documented in this encounter Results Film Library- Storage Only CT Abdomen (01/22/2021 12:00 AM EST) Specimen (Source) Anatomical Location Collection Method / Collectio n Time Received Time / Laterality Volume Narrative BESSIE - 02/03/2021 7:09 PM EST This exam is auto-finalizing. It's purpo se is for storage only. Zenon Lozoya MD IMG FILM LIBRARY ORDERABLES Performing Organization Address City/State/ZIP Code Phon e Number [place], [place] documented in this encounter Visit Diagnoses Not on filedocumented in this encounter
--- OUTSIDE RECORDS SUMMARY | 2022-10-07 18:42 | XMS_ITS | Encounter Summary ---
:1955 Author Organization [facility] Address [facility] [place] [address] Care Team Providers Name Role Phone Unavailable Primary Care Provider Unavailable Encounter Details Date Type Department Care Team Description 02/09/2021 Telephone Hematology and Oncology at Alberto Montaño MD [facility] Dennis fernández HEMATOLOGY/[place] [address] [place] [address] [phone] (Wo rk) Social History Tobacco Use Types Packs/Day Years Used Date Former Smoker Cigarettes 0.25 Quit: 06/2020 Smokeless Tobacco: Never Used Sex Assigned at Date Recorded Not on file documented as of this encounter Miscellaneous Notes Telephone Encounter - Alberto Bhatia MD - 02/09/2021 11:32 PM EDT I called Ms. Pichardo with results of tumor board discussion with recommendation to proceed with systemic chemotherapy. Due to her renal insufficiency we cannot safely treat her with cisplatin based chemotherapy. I discussed benefits and the risk of carboplatin and gemcitabine. Carboplatin and gemcitabine has 30-40% objective response rate. Side effects include but not limitedto nausea, vomiting, fatigue, low blood counts, numbness and tingling in extremities, pain, infection including life-threatening infection. All questions were answered to patient satisfaction. She is in terested to proceed with chemotherapy which is scheduled on February 10. For verbal consent was obtained documented in this encounter Plan of Treatment Upcoming Encounters Date Type Specialty Care Team Description 10/21/2022 Appointment Hematology and Oncology 10/21/2022 Hospital Encounter Radiology Adilene Link[address] MEDICAL ONCOLOGY [place], [place] [address] [phone] (Wo rk) 10/21/2022 Appointment Radiology Adilene Link[address] ONCOLOGY [place], [place] [phone] (Wo rk) 10/21/2022 Appointment Radiology Adilene Link[address] ONCOLOGY [place], [place] [address] (Wo rk) 10/25/2022 Office Visit Hematology and Oncology Alberto Guy MD [facility] DR HEMATOLOGY/[place] [address] [address] MEDICAL ONCOLOGY [place], [place] [address] 11/09/2022 Office Visit Urology Bobo Davis MD [facility] DR UROLOGY [place], [place] [address] (Wo rk) documented as of this encounter Visit Diagnoses Not on filedocumented in this encounter
--- OUTSIDE RECORDS SUMMARY | 2022-10-07 18:42 | XMS_ITS | Encounter Summary ---
:1955 Author Organization [facility] [place] [address] Care Team Providers Name Role Phone Unavailable Primary Care Provider Unavailable Encounter Details Date Type Department Care Team Description 02/09/2021 Ancillary Procedure Radiology Library at [facility] neelima [facility] MD Ariella [facility] [place] [address] UROLOGY DEPT [phone] [place], [place] [address] (Wo rk) Social History Tobacco Use Types Packs/Day Years Used Date Former Smoker Cigarettes 0.25 Quit: 06/2020 Smokeless Tobacco: Never Used Sex Assigned at Date Recorded Not on file documented as of this encounter Plan of Treatment Upcoming Encounters Date Type Specialty Care Team Description 10/21/2022 Appointment Hematology and Oncology 10/21/2022 Hospital Encounter Radiology Adilene Link [address] MEDICAL ONCOLOGY [place], [place] [phone] (Wo rk) 10/21/2022 Appointment Radiology Adilene Link [address] MEDICAL ONCOLOGY [place], [place] [phone] (Wo rk) 10/21/2022 Appointment Radiology Adilene Link, [address] MEDICAL ONCOLOGY [place], [place] [phone] (Wo rk) 10/25/2022 Office Visit Hematology and Oncology Alberto Guy MD [facility] DR HEMATOLOGY/[place] [address] Adilene Link, [address] [place] [address] 11/09/2022 Office Visit Urology Bobo Davis MD [facility] DR UROLOGY [place], [place] [address] (Wo rk) documented as of this encounter Procedures Procedure Name Priority Date/Time Associated Diagnosis Comme nts FILM LIBRARY Routine 02/09/2021 6:31 PM Results f or this STORAGE ONLY CT EDT procedure ar e in ABDOMEN AND PELVIS the resul ts section. documented in this encounter Results Film Library- Storage Only CT Abdomen & Pelvis (02/09/2021 6:31 PM EDT) Specimen (Source) Anatomical Location Collection Method / Collectio n Time Received Time / Laterality Volume Narrative LAISHA LA - 02/09/2021 6:31 PM EDT This exam is auto-finalizing. It's purpo se is for storage only. Sandip Giron MD IMG FILM LIBRARY ORDERABLES Performing Organization Address City/State/ZIP Code Phon e Number BESSIE [place], [place] documented in this encounter Visit Diagnoses Not on filedocumented in this encounter
--- OUTSIDE RECORDS SUMMARY | 2022-10-07 18:42 | XMS_ITS | Encounter Summary ---
:1955 Author Organization [facility] Address [facility] [place] [address] Care Team Providers Name Role Phone Unavailable Primary Care Provider Unavailable Encounter Details Date Type Department Care Team Description 02/16/2021 Notes Only Hematology/Oncology at Julia Morris MSW [facility] OFFICE OF CARE [address] [place] [phone] Social History Tobacco Use Types Packs/Day Years Used Date Former Smoker Cigarettes 0.25 Quit: 06/2020 Smokeless Tobacco: Never Used Sex Assigned at Date Recorded Not on file documented as of this encounter Progress Notes Julia Morris MSW - 02/16/2021 12:02 PM EDT Follow up with pt during her infusion visit today. Pt indicated she has her challenges at home and has to rely on her for assistance with daily chores and activities. She does have VNA services- RN visits and a SWITCH CREW SUPERVISOR for a shower twice a week. She is working with them to get their visits to work around her treatment schedule. Pt interested in home making assistance and CAMP DIRECTOR suggested she speak with her VNA nurse to inquire about services for this through their agency. Pt with questions re Larissa suggested she contact the COA re this program in her area. Pt reports her is completing [place] paperwork so he can take the time to bring her to her appointments. She indicated he has some vacation time to cover this time and his employer is being supportive. Pt indicated she has a friend who comes on to help with chores and things pt needs some assistance with. Pt is asking to speak with our limousine and hearse upholsterer and CAMP DIRECTOR [address]a [address] with this request. Offered support. Reminded pt of CAMP DIRECTOR availability and contact information. Will follow for support and resources. documented in this encounter Plan of Treatment Upcoming Encounters Date Type Specialty Care Team Description 10/21/2022 Appointment Hematology and Oncology 10/21/2022 Hospital Encounter Radiology Adilene Link[address] [place] [address] (Wo rk) 10/21/2022 Appointment Radiology Adilene Link[address] [place] [address] (Wo rk) 10/21/2022 Appointment Radiology Adilene Link[address] [place] [address] (Wo rk) 10/25/2022 Office Visit Hematology and Oncology Alberto Guy MD [facility] DR HEMATOLOGY/[place] [address] [address] MEDICAL ONCOLOGY [place], [place] [address] [phone] 11/09/2022 Office Visit Urology Bobo Davis MD [facility] UROLOGY [place], [place] [address] (Wo rk) documented as of this encounter Visit Diagnoses Not on filedocumented in this encounter
--- OUTSIDE RECORDS SUMMARY | 2022-10-07 18:42 | XMS_ITS | Encounter Summary ---
:1955 Author Organization [facility] [place] [address] Care Team Providers Name Role Phone Unavailable Primary Care Provider Unavailable Reason for Visit Reason Comments Follow-up Encounter Details Date Type Department Care Team Description 02/16/2021 Office Visit Hematology/Oncology Rah Bhatia MD [facility] DR HEMATOLOGY/[place] [address] Urothelial carcinoma of kidney, right; at [facility], Adilene Mock, DELBERT [address] [place] [address] [place] [address] Malignant neoplasm of urinary bladder, u nspecified site; [address] [place] [address] Drive Cancer of renal pelvis, righ t; [place], [place] High risk m edication use; [phone] Encounter for chemotherapy m anagement [phone] Social History Tobacco Use Types Packs/Day Years Used Date Former Smoker Cigarettes 0.25 Quit: 06/2020 Smokeless Tobacco: Never Used Sex Assigned at Date Recorded Not on file documented as of this encounter Last Filed Vital Signs Vital Sign Reading Time Taken Comments Blood Pressure 152/73 02/16/2021 10:27 AM EDT Pulse 91 02/16/2021 10:27 AM EDT Temperature 36.6 ??C (97.9 ??F) 02/16/2021 10:27 AM EDT Respiratory Rate 16 02/16/2021 10:27 AM EDT Oxygen Saturation 99% 02/16/2021 10:27 AM EDT Inhaled Oxygen Concentration - - Weight 91.2 kg (201 lb) 02/16/2021 10:27 AM EDT Height 160 cm (5' 2.99) 02/16/2021 10:27 AM EDT Body Mass Index 35.61 02/16/2021 10:27 AM EDT documented in this encounter Progress Notes Alberto Bhatia MD - 02/16/2021 10:30 AM EDT No diagnosis found. Patient Active Problem List [...] creatinine of 0.5 in October 2019. INTERVAL HPI:- Nancy returns to the [facility] today the eighth of for her urothelial cancer. She is accompanied by her Derek today. [facility] a week agowith right flank pain and concern about her recent stent being nonfunctioning. Finished 14 days of antibiotics even if you are urine culture was negative with improvement in right side pain. She discussed with our urology team her ureteral stent exchange. Dr. Davis feels that her stent is not obstructed, so stent exchange was canceled. Nancy received first dose of carboplatin and gemcitabine a week ago. Tolerated reasonably well with mild nausea and constipation. Denies any fever or chills. No nausea today. PMH: No interval changes since last visit PTSD/depression, diabetes mellitus on insulin, arthritis, , hernia repair x3, anxiety, hysterectomy for urinary incontinence 2 to 3 years ago Social History: 54-[id number]-cfes smoking history, quit 6 months ago, does [...] Medications: Your Medications Accurate as of February 16, 2021 11:17 AM. If you have any questions, ask your nurse or doctor. Continued medications, unchanged Dose Details blood sugar diagnostic strips Strp 1 strip by NOT APPLICABLE route Three times a day. 1 strip Refills: 0 cephALEXin 250 mg Cap Commonly known as: Keflex Take 250 mg by mouth 4 times daily. 250 mg Refills: 0 cholecalciferol (Vitamin D3) 1,000 unit Tab Commonly known as: Vitamin D3 Take 1,000 Units by mouth Daily. 1,000 Units Refills: 0 hydroCHLOROthiazide 12.5 mg Tab Commonly [...] a tablet daily. 25 mg Refills: 0 Review of Systems Constitutional: [...] Thought content normal. Judgment: Judgment normal. BP 152/73 (Patient Position: Sitting) Pulse 91 Temp 36.6 ??C (97.9 ??F) (Temporal) Resp 16 Ht 160 cm (5' 2.99) Wt 91.2 kg (201 lb) SpO2 99% BMI 35.61 kg/m?? Wt Readings from Last 3 Encounters: 02/16/21 91.2 kg (201 lb) 02/10/21 93.4 kg (206 lb) 01/26/21 94.8 kg (209 lb) Pathology: 01/22/21 retroperitoneal lymph node biopsy: A. LYMPH NODE, RETROPERITONEUM, CT-GUIDED CORE NEEDLE BIOPSY: - Positive for carcinoma, favor urinary bladder primary, high-grade. See comment. 12/25/2020 urine: High-grade urothelial carcinoma with superimposed abundant degenerative changes Labs: 02/16/2021 WBC 4.77, hemoglobin 11, platelet count [...] surgical option particularly right nephroureterectomy. Received first dose of carboplatin and gemcitabine last week. Tolerated treatment well with mild nausea and constipation. Proceed with day 8 of gemcitabine today. #Right hydronephrosis: Creatinine is 1.4, stable Creatinine 1.4-1.7, status post right ureteral stent placement: December 23. # UTI- finished Keflex 250mg po QID X 18 doses PLAN: 1. Gemcitabine 1,000 mg/m2 Day 8 today 2. Next visit in 2 weeks with blood work and second cycle of carboplatin and gemcitabine The plan was discussed with patient in details. All questions were answered to patient satisfaction documented in this encounter Plan of Treatment Upcoming Encounters Date Type Specialty Care Team Description 10/21/2022 Appointment Hematology and Oncology 10/21/2022 Hospital Encounter Radiology Adilene Link[address] MEDICAL ONCOLOGY [place], [place] [address] (Wo rk) 10/21/2022 Appointment Radiology Adilene Link [address] ONCOLOGY [place], [place] [phone] (Wo rk) 10/21/2022 Appointment Radiology Adilene Link[address] MEDICAL ONCOLOGY [place], [place] [phone] (Wo rk) 10/25/2022 Office Visit Hematology and Oncology Alberto Guy MD [facility] DR HEMATOLOGY/[place] [address] [address] MEDICAL ONCOLOGY [place], [place] [phone] 11/09/2022 Office Visit Urology Bobo Davis MD [facility] DR UROLOGY [place], [place] [address] (Wo rk) documented as of this encounter Visit Diagnoses Diagnosis Urothelial carcinoma of kidney, right Malignant neoplasm of urinary bladder, u nspecified site Cancer of renal pelvis, right High risk medication use Encounter for long-term (current) use of other medications Encounter for chemotherapy management documented in this encounter
--- OUTSIDE RECORDS SUMMARY | 2022-10-07 18:42 | XMS_ITS | Encounter Summary ---
:1955 Author Organization [facility] [place] [address] Care Team Providers Name Role Phone Unavailable Primary Care Provider Unavailable Encounter Details Date Type Department Care Team Description 02/11/2021 Telephone Urology at [facility] Bobo Davis MD [facility] [place] [address] UROLOGY [phone] [place], [place] [address] (Wo rk) Social History Tobacco Use Types Packs/Day Years Used Date Former Smoker Cigarettes 0.25 Quit: 06/2020 Smokeless Tobacco: Never Used Sex Assigned at Date Recorded Not on file documented as of this encounter Miscellaneous Notes Telephone Encounter - Melissa Conti E - 02/11/2021 10:38 AM EDT Called Nancy back today per her request yesterday. She said that Urology in [place] is going off ofinformation that isn't correct nor do you have all of the information. They are jumping the gun on this one, and since you are working from home you have no idea what you are talking about. I refuse tohave surgery as this isn't emergent and I want to talk to Dr. Bhatia first prior to doing anything. She also doesn't like that everything is done over the computer . She kept talking over me, raising her voice and being rude. I told her that we were just trying to do a stent and exchange and that Dr. Davis would be doing it. She then said oh well if Dr. Davis is doing it then he needs to contact me because I've never talked to him and I would like to have a conversation prior. I'm going to stop this right here it doesn't go any further. She is refusing to have surgery here and would not agree to the date I offered just in case. She is seeing Jannette on Monday. Can you please reach out to her Dr. Davis when you have a moment. Thank you Melissa documented in this encounter Plan of Treatment Upcoming Encounters Date Type Specialty Care Team Description 10/21/2022 Appointment Hematology and Oncology 10/21/2022 Hospital Encounter Radiology Adilene Link[address] [place] [address] (Wo rk) 10/21/2022 Appointment Radiology Adilene Link[address] ONCOLOGY [place], [place] [address] [phone] (Wo rk) 10/21/2022 Appointment Radiology Adilene Link [address] [place] [address] (Wo rk) 10/25/2022 Office Visit Hematology and Oncology Alberto Guy MD [facility] [place]EMATOLOGY/[place] [address] Adilene Link [address] MEDICAL ONCOLOGY [place], [place] [address] [phone] 11/09/2022 Office Visit Urology Bobo Davis MD [facility] UROLOGY [place], [place] [address] (Wo rk) documented as of this encounter Visit Diagnoses Not on filedocumented in this encounter
--- OUTSIDE RECORDS SUMMARY | 2022-10-07 18:42 | XMS_ITS | Encounter Summary ---
:1955 Author Organization [facility] Address [facility] [place] [address] Care Team Providers Name Role Phone Unavailable Primary Care Provider Unavailable Encounter Details Date Type Department Care Team Description 02/08[facility]20[facility] [address] [phone] Social History Tobacco Use Types Packs/Day Years Used Date Former Smoker Cigarettes 0.25 Quit: 06/2020 Smokeless Tobacco: Never Used Sex Assigned at Date Recorded Not on file documented as of this encounter Miscellaneous Notes Telephone Encounter - Candace Gonzales RN - 02/08/2021 2:02 PM EDT Patient called office very upset about what she believed was a change in appointment time. Discussedthat this week her appointment is on Monday, as Dr Bhatia and our Nurse Practitioner had the time needed to do her chemotherapy teach that day, along with her infusion. Clarified that the appointment is indeed this Saturday 02/10 at 9 am. Audit of computer revealed that the appointment had not been changed and it was always scheduled for this time. Patient still very upset and frustrated. Discussed that we were unable to change her appointment to Monday unfortunately. Discussed that she couldcall Patient Relations to relay her dissatisfaction and give feedback. Patient hung up phone. documented in this encounter Plan of Treatment Upcoming Encounters Date Type Specialty Care Team Description 10/21/2022 Appointment Hematology and Oncology 10/21/2022 Hospital Encounter Radiology Adilene Link[address] MEDICAL [place]OGY [place], [place] [address] (Wo rk) 10/21/2022 Appointment Radiology Adilene Link[address] MEDICAL ONCOLOGY [place], [place] [address] [phone] (Wo rk) 10/21/2022 Appointment Radiology Adilene Link[address] MEDICAL ONCOLOGY [place], [place] [address] (Wo rk) 10/25/2022 Office Visit Hematology and Oncology Alberto Guy MD [facility] HEMATOLOGY/[place] [address] MEDICAL ONCOLOGY [place], [place] [address] 11/09/2022 Office Visit Urology Bobo Davis MD [facility] UROLOGY [place], [place] [address] (Wo rk) documented as of this encounter Visit Diagnoses Not on filedocumented in this encounter
--- OUTSIDE RECORDS SUMMARY | 2022-10-07 18:42 | XMS_ITS | Encounter Summary ---
:1955 Author Organization [facility] Address [facility] [place] [address] Care Team Providers Name Role Phone Unavailable Primary Care Provider Unavailable Encounter Details Date Type Department Care Team Description 05/31/2019 Telephone Dermatology at [facility] Jenifer Holder MD [address] [facility] [place] [address] [facility] [phone] [place], [place] [address] (Wo rk) Social History Tobacco Use Types Packs/Day Years Used Date Current Some Day Smoker Smokeless Tobacco: Never Used Sex Assigned at Date Recorded Not on file documented as of this encounter Miscellaneous Notes Telephone Encounter - Kinga Álvarez - 05/31/2019 1:29 PM EDT Called Nancy Roseny to schedule for Adnexal Tumors on [facility] eyelids [facility]. documented in this encounter Plan of Treatment Upcoming Encounters Date Type Specialty Care Team Description 10/21/2022 Appointment Hematology and Oncology 10/21/2022 Hospital Encounter Radiology Adilene Link, [address] MEDICAL ONCOLOGY [place], [place] [phone] (Wo rk) 10/21/2022 Appointment Radiology Adilene Link [address] MEDICAL ONCOLOGY [place], [place] [phone] (Wo rk) 10/21/2022 Appointment Radiology Adilene Link[address] MEDICAL ONCOLOGY [place], [place] [phone] (Wo rk) 10/25/2022 Office Visit Hematology and Oncology Alberto Guy MD [facility] DR HEMATOLOGY/[place] [address] MEDICAL ONCOLOGY [place], [place] [phone] 11/09/2022 Office Visit Urology Bobo Davis MD [facility] DR UROLOGY [place], [place] [address] (Wo rk) documented as of this encounter Visit Diagnoses Not on filedocumented in this encounter
--- OUTSIDE RECORDS SUMMARY | 2022-10-07 18:42 | XMS_ITS | Encounter Summary ---
:1955 Author Organization [facility] Address [facility] [place] [address] Care Team Providers Name Role Phone Unavailable Primary Care Provider Unavailable Encounter Details Date Type Department Care Team Description 12/18/2020 Ancillary Procedure Radiology Library at Lakhwinder sinha [facility] [address] [phone] Social History Tobacco Use Types Packs/Day Years Used Date Current Some Day Smoker Cigarettes 0.25 Smokeless Tobacco: Never Used Sex Assigned at Date Recorded Not on file documented as of this encounter Plan of Treatment Upcoming Encounters Date Type Specialty Care Team Description 10/21/2022 Appointment Hematology and Oncology 10/21/2022 Hospital Encounter Radiology Adilene Link[address] MEDICAL ONCOLOGY [place], [place] [phone] (Wo rk) 10/21/2022 Appointment Radiology Adilene Link [address] MEDICAL ONCOLOGY [place], [place] [phone] (Wo rk) 10/21/2022 Appointment Radiology Adilene Link[address] MEDICAL ONCOLOGY [place], [place] [phone] (Wo rk) 10/25/2022 Office Visit Hematology and Oncology Alberto Guy MD [facility] DR HEMATOLOGY/[place] [address] Adilene Link, [employer] [address] [place] [address] [place] [address] 11/09/2022 Office Visit Urology Bobo Davis MD [facility] UROLOGY [place], [place] [address] (Wo rk) documented as of this encounter Procedures Procedure Name Priority Date/Time Associated Diagnosis Comme nts FILM LIBRARY Routine 12/18/2020 12:00 AM Results for this STORAGE ONLY CT EST procedure ar e in ABDOMEN AND PELVIS the resul ts section. documented in this encounter Results Film Library- Storage Only CT Abdomen & Pelvis (12/18/2020 12:00 AM EST) Specimen (Source) Anatomical Location Collection Method / Collectio n Time Received Time / Laterality Volume Narrative LAISHA LA - 01/21/2021 4:12 PM EST This exam is auto-finalizing. It's purpo se is for storage only. Zenon Lozoya MD IMG FILM LIBRARY ORDERABLES Performing Organization Address City/State/ZIP Code Phon e Number BESSIE BESSIE [place], [place] documented in this encounter Visit Diagnoses Not on filedocumented in this encounter
--- OUTSIDE RECORDS SUMMARY | 2022-10-07 18:42 | XMS_ITS | Encounter Summary ---
:1955 Author Organization [facility] [address] Care Team Providers Name Role Phone Unavailable Primary Care Provider Unavailable Encounter Details Date Type Department Care Team Description 02/11/2021 Telephone Hematology/Oncology at Maritza Ruby RN [address] [phone] Social History Tobacco Use Types Packs/Day Years Used Date Former Smoker Cigarettes 0.25 Quit: 06/2020 Smokeless Tobacco: Never Used Sex Assigned at Date Recorded Not on file documented as of this encounter Miscellaneous Notes Telephone Encounter - Maritza Ruby RN - 02/11/2021 9:47 AM EDT Post chemo call: Placed call to patient to assess tolerance of first time chemotherapy treatment. Regimen received: [place] Date of treatment: 02/10/21 She is doing well and reports feeling better than prior to treatment, we discussed this could be form the premed dexamethasone. Denies nausea, normal bowels, urinating well, eating and drinking well. Her blood sugar has been high and she is working with her PCP on that- we dicussed this is also likelyfrom the dexamethasone. She is rapidly speaking and it is difficult to interject- she says this is d/t her sugars being high. Her main issue and stressor is that she received a call from urology about a scheduled surgery next 02/17 which is after her next treatment 02/16. She does not want to do this before talking to or Adilene Likn APRN. I told her it looked as though it was a stent exchange. She continued to vent. About poor communication and Her distrust in [facility]. Spent 40 minutes web content editor for support. Plan:? 1. Update Adilene Link APRN via this note. Dr Bhatia on Vacation until next week 2. Can discuss stent change at apt 02/16. 3. Reinforced to patient/care-podiatrist orthopedic to call facility 19/06 with any new/worsening signs and symptoms or concerns or questions.?? Phone number provided.?? Pt verbalized understanding and is in agreement with plan. documented in this encounter Plan of Treatment Upcoming Encounters Date Type Specialty Care Team Description 10/21/2022 Appointment Hematology and Oncology 10/21/2022 Hospital Encounter Radiology Adilene Link[address] [address] (Wo rk) 10/21/2022 Appointment Radiology Adilene Link[address] [place] [address] (Wo rk) 10/21/2022 Appointment Radiology Adilene Link[address] [place] [address] (Wo rk) 10/25/2022 Office Visit Hematology and Oncology Alberto Guy MD [facility] DR HEMATOLOGY/[place] [address] [address] [place] [address] 11/09/2022 Office Visit Urology Bobo Davis MD [facility] UROLOGY [place], [place] [address] (Wo rk) documented as of this encounter Visit Diagnoses Not on filedocumented in this encounter
--- OUTSIDE RECORDS SUMMARY | 2022-10-07 18:42 | XMS_ITS | Encounter Summary ---
:1955 Author Organization [facility] [place] [address] Care Team Providers Name Role Phone Unavailable Primary Care Provider Unavailable Encounter Details Date Type Department Care Team Description 02/09/2021 [facility] [address] [phone] Social History Tobacco Use Types Packs/Day Years Used Date Former Smoker Cigarettes 0.25 Quit: 06/2020 Smokeless Tobacco: Never Used Sex Assigned at Date Recorded Not on file documented as of this encounter Miscellaneous Notes Telephone Encounter - Candace Gonzales RN - 02/09/2021 2:36 PM EDT Caller: Nancy Pichardo Relationship: Patient Reason For Call: Right 10/10 Flank pain Assessment/Symptom Review (include all pertinent negatives and positives): Patient is still experiencing same symptoms that she called for yesterday. Rt Flank pain. Patient feels like stent is plugged. Also reports pitting edema in bilateral lower extremities. Patient reports she was told to call Dr. Puckett's office to report symptoms. He referred her back to Oncology. Select Specific Decision Support Tool used: Consulted PLASTIC TUBING INSULATION SUPERVISOR Adilene Link Name of Guideline/Protocol Used: Disposition/Plan of Care: Patient directed to the ED for evaluation for possible stent blockage. Patient/Caregiver verbalizes understanding of plan of care: Nancy verbalized understanding. States she will call her to take her to the [facility] ED for evaluation Patient/Caregiver agrees with plan: Yes Advised patient/caregiver to see emergency care for: N/A going to Emergency Room. Called [facility] to give a heads up that patient was on her way in. documented in this encounter Plan of Treatment Upcoming Encounters Date Type Specialty Care Team Description 10/21/2022 Appointment Hematology and Oncology 10/21/2022 Hospital Encounter Radiology Adilene Link[address] MEDICAL ONCOLOGY [place], [place] [phone] (Wo rk) 10/21/2022 Appointment Radiology Adilene Link[address] ONCOLOGY [place], [place] [address] (Wo rk) 10/21/2022 Appointment Radiology Adilene Link[address] ONCOLOGY [place], [place] [address] (Wo rk) 10/25/2022 Office Visit Hematology and Oncology Alberto Guy MD [facility] DR HEMATOLOGY/[place] [address] [address] MEDICAL ONCOLOGY [place], [place] [phone] 11/09/2022 Office Visit Urology Bobo Davis MD [facility] DR UROLOGY [place], [place] [address] (Wo rk) documented as of this encounter Visit Diagnoses Not on filedocumented in this encounter
--- OUTSIDE RECORDS SUMMARY | 2022-10-07 18:42 | XMS_ITS | Encounter Summary ---
:1955 Author Organization [facility] [place] [address] Care Team Providers Name Role Phone Unavailable Primary Care Provider Unavailable Reason for Visit Reason Comments Skin Lesion upper eyelids Encounter Details Date Type Department Care Team Description 07/17/2019 Office Visit Dermatology at [facility] Jenifer Holder MD Adnexal tumor [address] [facility] [place] [address] [place] [address]-DERMATOLOGY [phone] [place], [place] [address] (Wo rk) Social History Tobacco Use Types Packs/Day Years Used Date Current Some Day Smoker Cigarettes 0.25 Smokeless Tobacco: Never Used Sex Assigned at Date Recorded Not on file documented as of this encounter Progress Notes Jenifer Roldan MD - 07/17/2019 1:30 PM EDT DERMATOLOGY ESTABLISHED PATIENT CLINIC NOTE DATE OF SERVICE: 07/17/2019 Nancy Pichardo : 1955 PROVIDER: Jenifer Roldan MD PATIENT PREFERENCES: -prefers to be called: Nancy -ok to communicate detailed result information by: Mail?: yes Voicemail?: yes and what #: home phone -special considerations: -ok to discuss details of diagnosis and treatment with: Derek updated07/17/2019 Chief Complaint Patient presents with ??? Skin Lesion upper eyelids HPI Nancy Pichardo is a 64 y.o. year old female, established to Dermatology. Last seen by Dr. Colin on05/14/19. Patient presents to discuss treatment of her upper lid and postauricular lesions, previously evaluated by Dr. Colin. States they become irritated and have previously been infected. Feels she cannot wear makeup. Review of Systems: Feels well, no fatigue, no weight loss, no other skin concerns Sunscreen Use?: yes Skin Cancer History Right upper arm, SCC, s/p treatment in 2017 Unknown family history of skin cancer. Medical Surgical Type 2 diabetes ?? Milk duct removal Hysterectomy Hernia Family Medical History Rheumatoid arthritis Diabetes ?? 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 Cannot treat lesions that affect the tarsal plate (right upper lid lesion) - offered removal of focal lesions, several at a time for $350 per session BENIGN REMOVAL LOG Date: 07/17/19 Lesion type: syringoma Area: bilateral eyelids Method: scissor removal and hyfrecation Number treated: >10 Other: pt comfortable, with no immediate adverse reaction after procedure Paid: $350 Tx By:RL Notes: Cosmetic Fee: pt paid $350 upon leaving clinic FOLLOW UP WHEN: prn FOR WHAT: eyelid syringoma removal LENGTH OF VISIT: 30 I am documenting this encounter acting as the scribe for and in the presence of JULIANNA Frank and Debra Cadet I performed the above scribed service and agree with the accuracy of the documentation in this encounter. Jenifer Roldan MD Section of Dermatology [facility] Nancy Pichardo 07/17/2019 documented in this encounter Plan of Treatment Upcoming Encounters Date Type Specialty Care Team Description 10/21/2022 Appointment Hematology and Oncology 10/21/2022 Hospital Encounter Radiology Adilene Link, [address] MEDICAL ON[facility]OGY [place], [place] [address] [phone] (Wo rk) 10/21/2022 Appointment Radiology Adilene Link, [address] [place] [place] [address] (Wo rk) 10/21/2022 Appointment Radiology Adilene Link[address] MEDICAL ONCOLOGY [place], [place] [address] (Wo rk) 10/25/2022 Office Visit Hematology and Oncology Alberto Guy MD [facility] HEMATOLOGY/[place] [address] MEDICAL ONCOLOGY [place], [place] [phone] 11/09/2022 Office Visit Urology Bobo Davis MD [facility] UROLOGY [place], [place] [address] (Wo rk) documented as of this encounter Visit Diagnoses Diagnosis Adnexal tumor Benign neoplasm of skin, site unspecifie d documented in this encounter
--- OUTSIDE RECORDS SUMMARY | 2022-10-07 18:42 | XMS_ITS | Encounter Summary ---
:1955 Author Organization [facility] [place] [address] Care Team Providers Name Role Phone Unavailable Primary Care Provider Unavailable Reason for Visit Reason Onset Date Comments Other 02/08/2021 Encounter Details Date Type Department Care Team Description 02/08/2021 Telephone Hematology/Oncology at Barb Dennis RN Other [address] [phone] Social History Tobacco Use Types Packs/Day Years Used Date Former Smoker Cigarettes 0.25 Quit: 06/2020 Smokeless Tobacco: Never Used Sex Assigned at Date Recorded Not on file documented as of this encounter Miscellaneous Notes Telephone Encounter - Barb Dennis RN - 02/08/2021 2:14 PM EDT Pt calls with concerns of swollen feet, not feeling right over her right kidney, feel tight, no fevers or chills. (pt had right stent placed by Dr. Renner in past). Pt due to start chemotherapy on february 10 at 9am. (pt upset with this time thought is was February 09, had her speak with baggage agent supervisor Connie PRO about this date). Reviewed information with Adilene Link NP who is covering for Dr. Bhatia and she would like Taylor talk with Dr. Davis about this. Nancy given Dr. Davis's number she said she would call him. documented in this encounter Plan of Treatment Upcoming Encounters Date Type Specialty Care Team Description 10/21/2022 Appointment Hematology and Oncology 10/21/2022 Hospital Encounter Radiology Adilene Link, [address] MEDICAL ONCOLOGY [place], [place] [address] (Wo rk) 10/21/2022 Appointment Radiology Adilene Link[address] MEDICAL ONCOLOGY [place], [place] [address] [phone] (Wo rk) 10/21/2022 Appointment Radiology Adilene Link[address] MEDICAL ONCOLOGY [place], [place] [address] (Wo rk) 10/25/2022 Office Visit Hematology and Oncology Alberto Guy MD [facility] HEMATOLOGY/[place] [address] [address] MEDICAL ONCOLOGY [place], [place] [id number] 11/09/2022 Office Visit Urology Bobo Davis MD [facility] UROLOGY [place], [place] [address] (Wo rk) documented as of this encounter Visit Diagnoses Not on filedocumented in this encounter
--- OUTSIDE RECORDS SUMMARY | 2022-10-07 18:42 | XMS_ITS | Encounter Summary ---
:1955 Author Organization [facility] Address [facility] [place] [address] Care Team Providers Name Role Phone Unavailable Primary Care Provider Unavailable Encounter Details Date Type Department Care Team Description 02/08/2021 Telephone Urology at [facility] Bobo Davis MD [facility] [address] UROLOGY [phone] [place], [place] [address] (Wo rk) Social History Tobacco Use Types Packs/Day Years Used Date Former Smoker Cigarettes 0.25 Quit: 06/2020 Smokeless Tobacco: Never Used Sex Assigned at Date Recorded Not on file documented as of this encounter Miscellaneous Notes Telephone Encounter - Phi Trammell - 02/08/2021 2:41 PM EDT Patient calling to speak with Dr. Davis. SHe has chemo on Monday and is looking for directions regarding: swelling of the feet Problems moving bowels No pain, but getting throbbing in right kindy where cancer is, its hurting where the stent is No temperature She hasn't taken anything but tylenol for the pain, which isn't much of a pin more of just a throbbins. PHONE: [phone] documented in this encounter Plan of Treatment Upcoming Encounters Date Type Specialty Care Team Description 10/21/2022 Appointment Hematology and Oncology 10/21/2022 Hospital Encounter Radiology Adilene Link[address] MEDICAL ONCOLOGY [place], [place] [address] (Wo rk) 10/21/2022 Appointment Radiology Adilene Link[address] [place] [address] (Wo rk) 10/21/2022 Appointment Radiology Adilene Link[address] [place]OG[place], [place] [address] (Wo rk) 10/25/2022 Office Visit Hematology and Oncology Alberto Guy MD [facility] DR HEMATOLOGY/[place] [address] [address] MEDICAL ONCOLOGY [place], [place] [phone] 11/09/2022 Office Visit Urology Bobo Davis MD [facility] UROLOGY [place], [place] [address] (Wo rk) documented as of this encounter Visit Diagnoses Not on filedocumented in this encounter
--- OUTSIDE RECORDS SUMMARY | 2022-10-07 18:46 | XMS_ITS | Encounter Summary ---
:1955 Author Organization [facility] Address [address] [place] [address] Care Team Providers Name Role Phone Marine Price PATENTED HOGSHEAD ASSEMBLER Primary Care Provider [phone] Encounter Details Date Type Department Care Team Description 02/03/2022 Lab Requisition [facility] Outr Resulting Lab, Pathology & Laboratory Provider [facility] [address] [place], [place] [phone] Social History Tobacco Use Types Packs/Day Years Used Date Smoking Tobacco: Former Cigarettes 1 Smokeless Tobacco: Never Comments: quit 09/2020 Alcohol Use Standard Drinks/Week Comments No 0 (1 standard drink = 0.6 oz pure alcoho l) Sex Assigned at Date Recorded Not on file documented as of this encounter Plan of Treatment Not on filedocumented as of this encounter Procedures Procedure Name Priority Date/Time Associated Diagnosis Comme nts PTH INTACT Routine 02/03/2022 8:08 EST Results for this procedure are i n the results section . TRANSFERRIN Routine 02/03/2022 8:08 EST Results for this procedure are i n the results section . documented in this encounter Results (ABNORMAL) PTH INTACT (02/03/2022 8:08 EST) P athologist Signature Intact PTH 188 (H) 19 - 88 02/04/2022 [facility] pg/mL 8:48 EST [facility] Specimen Anatomical Collection Method Collection Time Receive d Time (Source) Location / / Volume Laterality Blood VENOUS BLOOD / 02/03/2022 8:08 02/03/2022 Unknown EST 21:20 EST Provider Outr Resulting Lab CHEMISTRY & BLOOD GAS DOUGLAS DIAS Performing Organization Address City/State/ZIP Code Phon e Number [facility] [address] [place] [address] SERVICES TRANSFERRIN (02/03/2022 8:08 EST) athologist Signature Transferrin 239 201 - 352 02/04/2022 [facility] mg/dL 10:30 EST [facility] Specimen Anatomical Collection Method Collection Time Receive d Time (Source) Location / / Volume Laterality Blood VENOUS BLOOD / 02/03/2022 8:08 02/03/2022 Unknown EST 21:20 EST Provider Outr Resulting Lab CHEMISTRY & BLOOD GAS DOUGLAS DIAS Performing Organization Address City/State/ZIP Code Phon e Number [facility] [address] [place] [address] SERVICES documented in this encounter Visit Diagnoses Not on filedocumented in this encounter Care Teams Brusher Warp Relationship Specialty Start Date End Date Marine Price FNP PCP - General Neurological Surgery 10/29/[address] [place] [id number] documented as of this encounter
--- OUTSIDE RECORDS SUMMARY | 2022-10-07 18:46 | XMS_ITS | Encounter Summary ---
:1955 Author Organization [facility] Address [address] [place] [address] Care Team Providers Name Role Phone Marine Price EMMANUEL Primary Care Provider [phone] Reason for Visit Reason Onset Date Comments COVID-19 01/12/2021 Encounter Details Date Type Department Care Team Description 01/12/2021 Telephone [facility] - Joseluis Mandujano MD COVID-19 [facility] [address] [place] [phone] [place] [address] 1 [place], [place] [address] (Wo rk) Social History Tobacco Use Types Packs/Day Years Used Date Smoking Tobacco: Every Day Cigarettes 1 Smokeless Tobacco: Never Alcohol Use Standard Drinks/Week Comments No 0 (1 standard drink = 0.6 oz pure alcoho l) Sex Assigned at Date Recorded Not on file COVID-19 Exposure Response Date Recorded In the last month, have you been in contact with No / Unsure 01/06/2021 9:59 EST someone who was confirmed or suspected to have Coronavirus / COVID-19? documented as of this encounter Miscellaneous Notes Telephone Encounter - Delfino Conti - 01/14/2021 6057 EST Called PT to follow up on the previous call. Due to the guidelines changing, her test on 01/18 now falls into the proper timeframe for testing. She also informed me she is getting the test done at [facility] in [place], who we are affiliated with. I informed her that her test is valid, and will workfor her upcoming procedure. (She also wanted to point out that she got her previous test done at [place] as well). Telephone Encounter - Elsy Maddox - 01/13/2021 1007 EST Called patient regarding covid testing for procedure 01/22. Patient says she is already scheduled at [facility] on 01/18. This is out of our time frame and not with an affiliated testing site. I advised patient to call ordering provider to ensure that testing site and date are approved. Patient asked to call back in the middle of our conversation.... Telephone Encounter - Mackenzie Farah - 01/12/2021 1426 EST Called patient to schedule COVID-19 testing. Requested a call back @[phone]. This is our 1st attempt at contacting the patient. documented in this encounter Plan of Treatment Not on filedocumented as of this encounter Visit Diagnoses Not on filedocumented in this encounter Care Teams Chief Petroleum Engineer Relationship Specialty Start Date End Date Marine Price FNP PCP - General Neurological Surgery 10/29/19 [address] [place] [address] documented as of this encounter
--- OUTSIDE RECORDS SUMMARY | 2022-10-07 18:46 | XMS_ITS | Encounter Summary ---
:1955 Author Organization [facility] Address [address] [place] [address] Care Team Providers Name Role Phone Marine Price EMMANUEL Primary Care Provider [phone] Reason for Visit Reason Onset Date Comments Coordination Of Care 01/12/2021 Encounter Details Date Type Department Care Team Description 01/12/2021 Telephone [facility] Mellisa Lopez Coo rdination Of Care rn quality - Main [place] 111 [facility] [phone] [place] [address] Social History Tobacco Use Types Packs/Day Years [...] this encounter Miscellaneous Notes Telephone Encounter - Mellisa Lopez RN - 01/12/2021 0849 EST (per request faxing procedure prep to Kymberly at [facility]) nterventional Radiology Appt: MondayJanuary 22 (biopsy) Phone call made to patient to review the following pre-procedure prep & information: Check into registration (3rd floor) at 845am Covid Screening: Do you currently have any s/s of Covid 19? Have you recently traveled out of state? Have you been exposed to anyone known or suspected to have Covid 19? - Reviewed with patient they must be tested for Covid 19 4-7 days prior to procedure. [facility] center number: [phone] Pt must self isolate after the test, prior to the appt. -Entrances into all [facility] [place] buildings and clinics will be restricted and everyone who enters will be asked the purpose of their visit to the medical center. Only 1 visitor is allowed, although drop off is encouraged -Pt also aware their scoop driver needs to be free of symptoms discussed. Will also call if they develop any fever, cough, flu/covid like symptoms etc Pre Sedation Guidelines: 1)Have no solid food or liquids containing fats, including milk, after midnight before your procedure. 2) On the day of your procedure, you should have only water or other clear liquids until 3 hours before the scheduled time of your procedure. . Acceptable Liquids (until 7am) -Water -Clear Fruit Juices-Apple, Grape, Cranberry -Gatorade -black coffee/tea- If cream is added expect a delay or need to reschedule the procedure -Clear carbonated beverages Unacceptable (DO NOT Drink) -Gallia juice (orange or pineapple) -clear broth -Gelatin and clear broth are not considered clear liquids for pre-sedation/pre-operative fasting as these may be protein based and thus may potentially delay gastric emptying. -apple sauce 3) Take your medications as directed with small sips of water at any time prior to your procedure. Medications - take prescribed medications. You should take as needed pain meds as needed. Meds to hold: CELEBREX x 48 hours Tresiba: Take only 80% of your dose the evening before or the moring of the biopsy(dependent on whenyou take the medication) Victoza: HOLD the morning of the biopsy pt confirms they are not on any blood thinning medication -Do not take Ibuprofen ( Motrin, Advil) for 24 hours prior to the procedure. -Do not take Naproxen ( Aleve) for 2 days before the procedure -Full strength Aspirin should not be taken for 5 days prior to this procedure. If you are on a baby Aspirin , this is okay to continue. ( taking any of the above medications could cause a delay in your procedure) -Tylenol (acetaminophen) may be taken for pain. -If you are started on any new medications prior to this appointment, please call [facility] to update -Due to sedation you must have a scoop driver (bus or taxi is not allowed) - Bring a list of current medications/allergy list -Shower night before or morning of procedure -Leave all valuables/medications at home (if you use hearing aids,glasses or CPAP, please bring them) pt verbalized understanding, all questions answered. [facility] RN phone number provided, should they have any further questions prior to this appointment. documented in this encounter Plan of Treatment Not on filedocumented as of this encounter Visit Diagnoses Not on filedocumented in this encounter Care Teams Busser Relationship Specialty Start Date End Date Marine Price FNP PCP - General Neurological Surgery 10/29/[address] [place] [address] documented as of this encounter
--- OUTSIDE RECORDS SUMMARY | 2022-10-07 18:46 | XMS_ITS | Encounter Summary ---
:[address] [facility] Address [address] [place] [address] Care Team Providers Name Role Phone Marine Price Primary Care Provider [phone] Encounter Details Date Type Department Care Team Description 03/17/2021 Telemedicine [facility] Sweetie Burrell celed (Patient) Nephrology - Rah Miguel MD [address] [address] Rehab, [place] [address] (Wo rk) Social History Tobacco Use Types Packs/Day Years Used Date Smoking Tobacco: Former Cigarettes 1 Smokeless Tobacco: Never Comments: quit 09/2020 Alcohol Use Standard Drinks/Week Comments No 0 (1 standard drink = 0.6 oz pure alcoho l) Sex Assigned at Date Recorded Not on file documented as of this encounter Progress Notes Sweetie Burerll MD - 03/17/2021 1530 EDT ERROR documented in this encounter Plan of Treatment Not on filedocumented as of this encounter Visit Diagnoses Not on filedocumented in this encounter Care Teams Webfocus Developer Relationship Specialty Start Date End Date Marine Price FNP PCP - General Neurological Surgery 10/29/19 [address] [place], [place] [id number] documented as of this encounter
--- OUTSIDE RECORDS SUMMARY | 2022-10-07 18:46 | XMS_ITS | Encounter Summary ---
:[address] [facility] Address [address] [place] [address] Care Team Providers Name Role Phone Marine Price MACHINE SETTER SHEET METAL Primary Care Provider [phone] Reason for Visit Reason Onset Date Comments Other 01/01/2021 Encounter Details Date Type Department Care Team Description 01/01/2021 Telephone [facility] Enedina Burrell MD Other Nephrology - S Prosp ect 1 [facility] 1 [facility], Level [address] [place], [place] [phone] [place] [phone] (Wo rk) Social History Tobacco Use Types [...] this encounter Miscellaneous Notes Telephone Encounter - Dena Araujo - 01/01/2021 1032 EST Seeking to transfer cancer treatment from [facility] to [facility], says her Urology surgeon Dr. Mcpherson be in touch. documented in this encounter Plan of Treatment Not on filedocumented as of this encounter Visit Diagnoses Not on filedocumented in this encounter Care Teams Lipstick Molder Relationship Specialty Start Date End Date Marine Price FNP PCP - General Neurological Surgery 10/29/[address] [place] [address] documented as of this encounter
--- OUTSIDE RECORDS SUMMARY | 2022-10-07 18:46 | XMS_ITS | Encounter Summary ---
:1955 Author Organization [facility] Address [address] [place] [address] Care Team Providers Name Role Phone Marine Price Primary Care Provider [phone] Encounter Details Date Type Department Care Team Description 01/06/2021 Travel Social History Tobacco Use Types Packs/Day [...] / COVID-19? documented as of this encounter Plan of Treatment Not on filedocumented as of this encounter Visit Diagnoses Not on filedocumented in this encounter Care Teams Box Printing Machine Operator Relationship Specialty Start Date End Date Marine Price FNP PCP - General Neurological Surgery 10/29/19 [address] [place] [address] documented as of this encounter
--- OUTSIDE RECORDS SUMMARY | 2022-10-07 18:46 | XMS_ITS | Encounter Summary ---
:1955 Author Organization [facility] Address [address] [place] [address] Care Team Providers Name Role Phone Marine Price EMMANUEL Primary Care Provider [phone] Reason for Visit Reason Onset Date Comments Results 01/12/2021 Encounter Details Date Type Department Care Team Description 01/12/2021 Telephone [facility] Bernarda Orozco, MORTEZA Results Nephrology - S Prosp ect [phone] [place] [phone] Social History Tobacco Use Types Packs/Day Years [...] this encounter Miscellaneous Notes Telephone Encounter - Bernarda Orozco RN - 01/12/2021 1554 EST Patient has appt today 01/13/[address] li to discuss questions Telephone Encounter - Bernarda Orozco RN - 01/12/2021 1413 EST ----- Message from Sweetie Burrell MD sent at 01/12/2021 13:34 EST ----- Abnormal, creatinine increased, please the contact the patient to tell her about the results and thefollowing changes in therapy: Stop Celebrex. Please ask her what her range of blood pressures have been. But please reassure her that her kidney function is improving. I should see repeat labs this week (nephrology profile, urine protein to creatinine ratio) to make sure it is still improving. documented in this encounter Plan of Treatment Not on filedocumented as of this encounter Visit Diagnoses Not on filedocumented in this encounter Care Teams Manager Ob Relationship Specialty Start Date End Date Marine Price FNP PCP - General Neurological Surgery 10/29/[address] [place] [address] documented as of this encounter
--- OUTSIDE RECORDS SUMMARY | 2022-10-07 18:46 | XMS_ITS | Encounter Summary ---
:1955 Author Organization [facility] Address [address] [place] [address] Care Team Providers Name Role Phone Marine Price TRAVEL REGISTERED NURSE NICU Primary Care Provider [phone] Encounter Details Date Type Department Care Team Description 01/19/2021 Abstract [facility] Enedina Burrell MD Nephrology - S Prosp ect [address] [place] [address] [place] [address] (Wo rk) Social History Tobacco Use [...] Name Priority Date/Time Associated Diagnosis Comme nts BASIC METABOLIC Routine 01/18/2021 10:15 Results for this PANEL (BMP) EST procedure are i n the results section. documented in this encounter Results BASIC METABOLIC PANEL (BMP) (01/18/2021 10:15 EST) P athologist Signature GFR, [place] [facility], [facility] External Glucose, Serum, 243 [facility] External [facility] Calculated [place] Calcium, [facility] External BUN, External [facility] Calcium, 9.1 [place] [facility] Chloride, 101 [facility] CO2, External 23.0 LAB Creatinine, 1.30 [facility] Fasting?, [facility] Potassium, 4.3 [facility] Sodium, 134 [facility] Specimen (Source) Anatomical Collection Method Collection Time Re ceived Time Location / / Volume Laterality Blood VENOUS BLOOD / 01/18/2021 10:15 Unknown EST Historical Provider CHEMISTRY & BLOOD GAS ORDERA BLES Performing Organization Address City/State/ZIP Code Phon e Number LAB documented in this encounter Visit Diagnoses Not on filedocumented in this encounter Care Teams Capsule Machine Operator Relationship Specialty Start Date End Date Marine Price FNP PCP - General Neurological Surgery 10/29/[address] [place] [id number] documented as of this encounter
--- OUTSIDE RECORDS SUMMARY | 2022-10-07 18:46 | XMS_ITS | Encounter Summary ---
:[address] [facility] Address [address] [place] [address] Care Team Providers Name Role Phone Marine Price COAGULATING BATH MIXER Primary Care Provider [phone] Reason for Visit Reason Onset Date Comments Coordination Of Care 01/13/2021 Encounter Details Date Type Department Care Team Description 01/13/2021 Telephone [facility] Sweetie Burrell rdination Of Care Nephrology - Rah Miguel MD [address] [phone] Rehab, Level 2 [place] [address] (Wo rk) Social History Tobacco [...] Telephone Encounter - Bernarda Orozco RN - 01/13/2021 0843 EST Patient has appt today Telephone Encounter - Dena Araujo - 01/13/2021 0839 EST Patient on 25mg spironolactone 5mg amlodepine (patient reports she's still taking this) PCP rx'd 20mg lasix x7days Repeat BMP in 1wk What are her BP goals? documented in this encounter Plan of Treatment Not on filedocumented as of this encounter Visit Diagnoses Not on filedocumented in this encounter Care Teams Commercial Cleaner Relationship Specialty Start Date End Date Marine Price FNP PCP - General Neurological Surgery 10/29/[address] [place] [id number] documented as of this encounter
--- OUTSIDE RECORDS SUMMARY | 2022-10-07 18:46 | XMS_ITS | Encounter Summary ---
:1955 Author Organization [facility] Address [address] [place] [address] Care Team Providers Name Role Phone Marine Price EMMANUEL Primary Care Provider [phone] Reason for Visit Reason Onset Date Comments Appointment Related 01/15/2021 Encounter Details Date Type Department Care Team Description 01/15/2021 Telephone [facility] Mellisa Lopez, Lorene ointment Related construction economist - [facility] [address] [facility] [address] [place], [place] [id number] [place] [phone] Social History Tobacco Use Types Packs/Day Years [...] Telephone Encounter - Mellisa Lopez RN - 01/15/2021 1642 EST Pre call info reviewed per my note on 01/12. Pt has appt for covid appt on Thursday 01/18, med list updated and reviewed with pt per request. Pt educated on what to expect DOP, all questions answered. documented in this encounter Plan of Treatment Not on filedocumented as of this encounter Visit Diagnoses Not on filedocumented in this encounter Discontinued Medications Medication Sig Discontinue Reason Start Date End Date liraglutide (VICTOZA Inject 1.8 mg into Therapy completed 01/15/2021 3-ARIAN) 0.6 mg/0.1 mL (18 the skin daily. mg/3 mL) injectable pen documented as of this encounter Care Teams Head Packager Relationship Specialty Start Date End Date Marine Price FNP PCP - General Neurological Surgery 10/29/[address] [place] [id number] documented as of this encounter
--- OUTSIDE RECORDS SUMMARY | 2022-10-07 18:46 | XMS_ITS | Encounter Summary ---
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 Primary Care Provider [phone] Reason for Referral Radiology Services (Routine) - Authorization Not Required Specialty Diagnoses / Procedures Referred By Contact Refer red To Contact Diagnoses Malignant neoplasm of renal pelvis, unspecified laterality (HCC-CMS) ([facility]) Doyle Renner MD Procedures IR BIOPSY [address] [place] [address] [place] [address] Referral ID Status Reason Start Expiration Visits Visits Date Date Requested Authorized [id number] Authorization Not 01/06/2021 1 1 Required Reason for Visit Radiology Services (Routine) - Authorization Not Required Specialty Diagnoses / Procedures Referred By Contact Refer red To Contact Diagnoses Malignant neoplasm of renal pelvis, unspecified laterality (HCC-CMS) ([facility]) Doyle Renner MD Procedures IR BIOPSY [address] [place] [address] [place] [address] Referral ID Status Reason Start Expiration Visits Visits Date Date Requested Authorized [id number] Authorization Not 01/06/2021 1 1 Required Encounter Details Date Type Department Care Team Description 01/22/2021 [facility] Gibson Renner MD [address] [place] [address] [place] [address] Malignant neoplasm of renal pelvis, unsp ecified laterality (HCC-CMS); Encounter Interventional Bobo Law III, MD [address] [facility] 1 [place] [address] Retroperitoneal lymphadenopathy Radiology Unit Alejandro Gonzales MD [address] [facility], Level [address] [place] [address] [address] [place] [address] Social History Tobacco Use Types Packs/Day Years [...] / COVID-19? documented as of this encounter Last Filed Vital Signs Vital Sign Reading Time Taken Comments Blood Pressure 125/54 01/22/2021 1208 EST Pulse - - Temperature 36.2 ??C (97.2 ??F) 01/22/2021 1208 EST Respiratory Rate 18 01/22/2021 1208 EST Oxygen Saturation 93% 01/22/2021 1208 EST Inhaled Oxygen Concentration - - Weight 92.1 kg (203 lb) 01/22/2021 0859 EST Height 160 cm (5' 3) 01/22/2021 0859 EST Body Mass Index 35.96 01/22/2021 0859 EST documented in this encounter Discharge Instructions Jared Guevara RN - 01/22/2021 Interventional Radiology Biopsy Discharge Instructions Date of biopsy: 01/22/2021 Provider: Alejandro Gonzales MD and Danilo Law MD Biopsy site: Retroperitoneal Biopsy The results of your procedure will go to the provider who ordered the procedure. It may take 5-7 days for biopsy results to come back. Aftercare After sedation: If you have received sedation or pain medication during your procedure, DO NOT DRIVEor make legal decisions today. Activity: Rest today. Do not lift anything over 10 lbs. You may resume normal activity tomorrow. Diet: You may resume your usual diet. Avoid alcohol for 24 hours. Medications: You may resume your usual medications. You may take tylenol (acetaminophen) for any discomfort you may have. Do not take any blood thinning medication for 24 hours after your procedure. (examples: Asprin, ibuprofen/NSAIDS, fish oil, Lovenox, Plavix, Xarelto, Arixtra, Pradaxa, Warfarin, etc). ?? Call your doctor immediately or go to the nearest Emergency Room if you develop any of the following - Fast heart rate Severe back, stomach, chest, or shoulder pain Severe anxiety, dizziness, or sweating Skin color change Heavy bleeding or swelling at the biopsy site If you feel short of breath Bloody urine Decreased urine output ?? Check the dressing or Band-Aid throughout the day. If you notice bleeding, hold pressure for 10 minutes and slowly release the pressure to see if the bleeding has stopped. If the bleeding does not stop, go to your Physician or the nearest Emergency Room. ?? Remove your dressing tomorrow. Gently wash your wound site with soap and water. You may then leave the biopsy site open to air. ?? Do not take a tub bath, swim, or go in a hot tub until the wound site has completely healed. ?? IF YOU HAVE ANY QUESTIONS OR CONCERNS REGARDING THE PROCEDURE, PLEASE CALL THE [facility] INTERVENTIONAL RADIOLOGY AT [phone]. SOMEONE IS AVAILABLE TO TAKE YOUR CALL24 HOURS A DAY. documented in this encounter Medications at Time of Discharge Medication Sig Dispensed Refills Start Date End Date blood glucose (ONE TOUCH 1 Strip by misc 0 ULTRA TEST) test strips (non-drug; combo route) route 3 times daily. cholecalciferol, Vitamin D3, Take 1,000 Units 0 1,000 unit tablet by mouth daily. hydroCHLOROthiazide Take 1 Tab by 90 Tab 3 01/13/2021 (HYDRODIURIL) 12.5 mg tablet mouth daily. insulin degludec (TRESIBA Inject 52 Units 0 FLEXTOUCH U-100) 100 unit/ml into the skin (3ml) insulin pen every evening. losartan (COZAAR) 50 mg Take 100 mg by 0 tablet mouth daily. nystatin-triamcinolone Apply topically 2 0 (MYCOLOG II) cream times daily. polyethylene glycol 3350 Take 17 g by mouth 0 (MIRALAX) 17 gram packet daily. spironolactone (ALDACTONE) 25 Take 0.5 Tabs by 45 Tab 3 12/30/2019 mg tabletIndications: mouth daily. hypertension documented as of this encounter Discharge Disposition Disposition Code Departure Means Destination Comments Home or Self Care Wheelchair Home leaving un it with to meet there son in-la w in lobby for ride home documented in this encounter Progress Notes Pushpa Lockhart, MORTEZA - 01/22/[address] Law in to bedside. Patient may be discharge when she feels ready per 1215 Patient OOB, no complaints of pain, nausea, lightheadedness or dizziness. 1220 Spoke with patient's son in-law he is on the way to hop picker patient. 's is in the waiting room. Patient and are now leaving unit via wheelchair to meet there son in-law in [facility]. Keyanna Downing RN - 01/22/2021 1137 EST Nancy Lopez arrived to CVU #3 via stretcher s/p Lymph Node Biopsy. Alert and oriented x3. Jared Arceo RN - 01/22/2021 1044 EST Pt received from CVU to CT angio [address] at 1018. Pt in agreement with plan for Retroperiotineal Lymph node biopsy with conscious sedation. Patient name and verified using armband and verbally. Patient???s allergies, medications, labs and NPO status reviewed. IV site checked for patency. Pt educated on what to expect during the procedure as well as with IV sedation and verbalizes understanding. Pt positioned prone, with safety straps in place, extremities supported, and heels elevated for duration of procedure. Initial CT imaging used and JF completed site trev. Sterile prep of mid back with 2% Chloro prep by JF in the usual sterile fashion in compliance with manufacturers recommendation. 1038 [place] moment agreed upon by all staff in room prior to start of procedure by MILLICENT, Frannie CHOUDHURY and Elaine Gonzales MD. CT imaging used. Lidocaine as a skin anesthetic. Coaxial needle into place. FNA samples collected in suite. Pathologist reviewed samples. Core samples collected. Band aid applied to puncture site. Pt monitored throughout procedure. Patient received 4 mg of Versed and 150 mcg Fentanyl during the 50 minute long procedure. Pt tolerated very well. Report given to CVU RN. Pt transferred in stable condition. documented in this encounter H&P Notes Bobo Law MD - 01/22/2021 0926 EST Sedation for Procedure History & Physical Date: 01/22/2021 Time: 9:26 Location: IR Planned Procedure: CT guided retroperitoneal lymph node biopsy. Chief Complaint/Indications for Procedure: History of urothelial Ca with FDG avid retroperitoneal lymphadenopathy. History: 65 yo Female with relevant PMH of HTN, diabetes and urothelial Ca. IR was consulted for tissue sampling of FDG avid retroperitoneal lymphadenopathy. Previous Complication with Sedation and/or Anesthesia? No Allergies: Allergies Allergen Reactions ??? Lisinopril Cough ??? Loratadine Palpitations hyper ??? Nrghllz-Aqx-Pwz Reductase Inhibitors Other (See Comments) Leg cramps ??? Sulfa (Sulfonamide Antibiotics) Rash Current Medications: Medications Prior to Admission Medication Sig Dispense Refill Last Dose ??? blood glucose (ONE TOUCH ULTRA TEST) test strips 1 Strip by misc (non-drug; combo route) route 3times daily. 01/22/2021 at Unknown time ??? [DISCONTINUED] celecoxib (CELEBREX) 100 mg capsule TAKE ONE CAPSULE BY MOUTH EVERY 12 HOURS NEEDED ??? cholecalciferol, Vitamin D3, 1,000 unit tablet Take 1,000 Units by mouth daily. 01/21/2021 at Unknown time ??? hydroCHLOROthiazide (HYDRODIURIL) 12.5 mg tablet Take 1 Tab by mouth daily. 90 Tab 3 01/22/2021 at Unknown time ??? insulin degludec (TRESIBA FLEXTOUCH U-100) 100 unit/ml (3ml) insulin pen Inject 52 Units into the skin every evening. 01/21/2021 at Unknown time ??? [DISCONTINUED] lamoTRIgine (LAMICTAL) 100 mg tablet Take 100 mg by mouth daily. ??? losartan (COZAAR) 50 mg tablet Take 100 mg by mouth daily. 01/22/2021 at Unknown time ??? nystatin-triamcinolone (MYCOLOG II) cream Apply topically 2 times daily. 01/21/2021 at Unknown time ??? polyethylene glycol 3350 (MIRALAX) 17 gram packet Take 17 g by mouth daily. Past Week at Unknowntime ??? spironolactone (ALDACTONE) 25 mg tablet Take 0.5 Tabs by mouth daily. 45 Tab 3 01/22/2021 at Unknown time Past Medical History: Past Medical History: Diagnosis Date ??? Acne ??? Arthritis ??? Diabetes mellitus (HCC-CMS) ??? Environmental allergies ??? History of blood transfusion ??? Hypertension ??? Psoriasis ??? Squamous cell carcinoma of skin 10/2014 right arm ??? Varicella Social History: Past Surgical History: Procedure Laterality Date ??? ABDOMEN SURGERY ??? BREAST SURGERY ??? HERNIA REPAIR ??? HYSTERECTOMY ??? SKIN BIOPSY Social History Tobacco Use ??? Smoking status: Former Smoker Packs/day: 1.00 ??? Smokeless tobacco: Never Used ??? Tobacco comment: quit 09/2020 Substance Use Topics ??? Alcohol use: No Family History: Family History Problem Relation Age of Onset ??? Cancer Mother ??? Mental Illness Mother ??? Hypertension Sister ??? Kidney Disease Neg Hx Review of Systems as pertinent: Physical: Vital Signs: BP (!) 153/64 (BP Cuff Location: Left arm, BP Patient Position: Semi fowlers) Temp 36??C (96.8 ??F) (Temporal) Resp 18 Ht 160 cm (63) Wt 92.1 kg (203 lb) SpO2 98% BMI 35.96 kg/m?? Heart Examination: Cardiac Regularity: Regular Respiratory Examination: Respiratory Pattern: Regular Breath Sounds Right: Clear Breath Sounds Left: Clear Additional physical exam related to the proposed procedure, patient activity, disease state and treatment as pertinent: Assessment: Previous complications with sedation or anesthesia?: No Anesthesia Classification: ASA 2 Plan: Ok to proceed with planned procedure and sedation. Fasting Time: Time of last liquid intake: 0700(black coffee) Date of Last Liquid Intake: 01/22/21 Time of last solid intake: 1800 Date of last solid intake: 01/21/21 Patient Appropriate Candidate for Planned Sedation?: Yes Bobo Law MD 01/22/2021 9:26 documented in this encounter Procedure Notes Bobo Law MD - 01/22/2021 1127 EST IR Procedure Note Procedure: CT guided retroperitoneal lymph node biopsy. Date Performed: 01/22/2021 Radiologist/Service Order Dispatcher Chief(s): Dr. Thanh Smyth Sedation/Anesthesia: Local anesthetic and conscious sedation. Time Out: A time-out was completed prior to procedure verifying correct patient, procedure, site, positioning, and special equipment if applicable. Estimated Blood Loss: Unless otherwise noted, there was no blood loss, specimens removed, cultures obtained, or drains retained. Specimens: Multiple FNA and Core needle biopsies. Complications: None Condition: Stable Post Procedure Diagnosis: Retroperitoneal lymphadenopathy. Findings: Successful CT guided retroperitoneal lymph node biopsy. Recommendations: 1.) To CVU for recovery, 2 hours bedrest. 2.) Follow pathology. Bobo Law MD 01/22/2021 11:27 documented in this encounter Plan of Treatment Not on filedocumented as of this encounter Procedures Procedure Name Priority Date/Time Associated Diagnosis Comme nts IR BIOPSY Routine 01/22/2021 11:26 Malignant neoplasm Resul ts for this EST of renal pelvis, procedure a re in unspecified the results laterality ([facility]) section . SURGICAL PATHOLOGY Routine 01/22/2021 11:17 Resul ts for this EST procedure are i n the results section. NON VICE PRESIDENT [employer]/FNA CYTOLOGY Routine 01/22/2021 11:11 Res ults for this EST procedure are i n the results section. PROTIME STAT 01/22/2021 9:15 Results for this EST procedure are i n the results section. POCT GLUCOSE, Routine 01/22/2021 9:13 Results for this INTERFACED EST procedure are i n the results section. documented in this encounter Results IR BIOPSY (01/22/2021 11:26 EST) Anatomical Region Laterality Modality Computed Tomography Specimen (Source) Anatomical Collection Method Collection Time Re ceived Time Location / / Volume Laterality 01/22/2021 15:18 EST Impressions 01/22/2021 15:18 EST Successful, uncomplicated CT-guided fine-needle aspiration and core needle biopsy of right retroperitoneal lymphadenopathy. Dr. Gonzales was present for and supervise d the entire procedure. I have personally reviewed the images an d the above interpretation and agree with the findings. Narrative 01/22/2021 15:[address]-guided fine-needle aspiration and core needle biopsy of retroperitoneal tumor 01/22/2021 9:00 AM CLINICAL HISTORY/COMMENTS: 6.3 cm paraaortic lymph node TECHNIQUE AND FINDINGS: Written consent was obtained. The patien t was prepped and draped in sterile fashion. 1% lidocaine was used for local analgesia. ??Conscious sedation was administered with continuous monitoring of the pa tient's heart rate, respiratory rate, bl ood pressure, and oxygen saturation. CT guidance was used to gain percutaneou s access to the right pericaval retroperitoneal lymph node with a 19-gauge needle, via a right translumbar approach. Then, multiple 25-gauge fine needle aspiratio n biopsies were obtained and submitted t o the cytopathologist. A request was made by the pathologist to obtain core needle biopsies. After this, multiple 20- gauge core needle biopsies of the tumor were obtained and placed into formalin for hi stopathologic analysis. The needle was removed. Post biopsy CT imaging demonstrated no evidence of a significant hematoma, pneumoperitoneum, or any other complica tion. The patient tolerated the procedur e well. ??No complication occurred. ??The estimated blood loss during the procedure was zero. The DLP was 1050.2. Procedure Note Alejandro Gonzales MD - 01/22/[address]-guided fine-needle aspiration and cor e needle biopsy of retroperitoneal tumor 01/22/2021 9:00 AM CLINICAL HISTORY/COMMENTS: 6.3 cm paraaortic lymph node TECHNIQUE AND FINDINGS: Written consent was obtained. The patien t was prepped and draped in sterile fashion. 1% lidocaine was used for local analgesia. Conscious sedation was administered with continuous monitoring of the patient's heart rate, respiratory rate, blood pres sure, and oxygen saturation. CT guidance was used to gain percutaneou s access to the right pericaval retroperitoneal lymph node with a 19-gauge needle, via a right translumbar approach. Then, multiple 25-gauge fine needle aspiration biopsies were obtained and submitted to the cytopathol ogist. A request was made by the pathologist to obtain core needle biopsies. After this, multiple 20-gauge core needle biopsies of the tumor were obtained and placed into formalin for histopathologic analysis. The needle was removed. Post biopsy CT imaging demonstrated no evidence of a significant hematoma, pneumoperitoneum, or any other complication. The patient tolerated the procedure well. No complication occurred . The estimated blood loss during the procedure was zero. The DLP was 1050.2. IMPRESSION Successful, uncomplicated CT-guided fine -needle aspiration and core needle biopsy of right retroperitoneal lymphadenopathy. Dr. Gonzales was present for and supervise d the entire procedure. I have personally reviewed the images an d the above interpretation and agree with the findings. Doyle Renner MD [facility] IR ORDERABLES SURGICAL PATHOLOGY (01/22/2021 11:17 EST) Component Value Ref Test Analysis Performed Pathologis t Range Method Time At Signature Final A. LYMPH NODE, RETROPERITONEUM, CT-GUIDED CORE NEEDLE BIOPSY: 01/26/2021 [facility] Diagnosis - Positive for carcinoma, fa vor urinary bladder primary, high-grade. See comment. 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 01/26/2021 [facility] MEDICAL Comment 12:25 [facility] IMMUNOHISTOCHEMISTRY: LABORATO RY ANTIBODY(CLONE)(BLOCK):RESULT SERVICES CK7 (RN7, [employer]) (A1): positive CK20 (Ks20.8, [employer]) (A1): positive GATA3 (L50-823, [place]) (A1): positive P63 (4A4, [employer]) (A1): positive NOTE: One or more of the re agents used in immunoperoxidase testing in this case may not have been cleared or approved by the U.S. Food and Drug Administration (FDA). The FDA has determined that such cl earance or approval is not n ecessary. These tests are used for clinical purposes. They should not be regarded as investigational or for research. These reagents' performance characteristics have been de termined by [facility] and/or by the referring laboratory. The positive and negative controls worked appropriately. If immunoperoxidase staining has been performed on alcoh ol fixed cytology specimens, which has not been fully validated, the assays should be interpreted with caution and correlated with clinical data. This laboratory is certified under the Clinical Laborato ry Improvement Amendments of 1988 (CLIA-88) as qualified to perform high complexity clinical laboratory testing. Attestation There was significant 01/26/2021 [facility] M EDICAL Electronically resident/fellow 12:25 [facility] sign ed by tracee Rebolledo in the LABORATORY MD Win diagnostic evaluation SERVICES on 01/26/2021 at of this case. By the 1225 signature below, the attending physician certifies that they have personally conducted a gross and/or microscopic examination of the described specimens and rendered or confirmed the above diagnosis. Clinical Urothelial carcinoma 01/26/2021 [facility] MEDI NICOLE History with retroperitoneal 12:25 [facility] adenopathy LABORATORY SERVICES Gross A. 01/26/2021 [facility] MEDICAL Description Received in formalin amisha d with proper patient identification (initials M, S) and not otherwise specified are 2 white delicate needle cores measuring 1.0 cm and 1.6 cm in length by less than 0 1 cm i 12:25 [facility] n diameter. The specimens are submitted entirely in A1-A2. LABORATORY SERVICES DELORES CONLEY(ASCP) 01/22/2021 13:15 Resident/Alexandru Sesay 01/26/2021 [facility] MEDICAL ow: Juan M Albarran MD 12:25 [facility] Performing [facility] 01/26/2021 [facility] MEDIC AL Lab 12:25 [facility] Scanned 01/26/2021 [facility] MEDICAL Images 12:25 [facility] Specimen Anatomical Location / Collection Method Collection Roberto e Received Time (Source) Laterality / Volume Tissue SPECIMEN FROM Collection, Other 01/22/2021 11:17 01/22 RETROPERITONEUM / / Unknown EST 12:07 EST Unknown Nj De Souza MD PATHOLOGY ORDERABLES Performing Organization Address City/State/ZIP Code Phon e Number [facility] [address] [place] [address] SERVICES NON VICE PRESIDENT [employer]/FNA CYTOLOGY (01/22/2021 11:11 EST) Component Value Ref Test Analysis Performed Pathologis t Range Method Time At Signature Final LYMPH NODE, PARAAORTIC, 5-6 CM, CT GUIDED FINE NEEDLE ASPIRATION: 01/26/2021 [facility] MEDICAL Diagnosis - Metastatic carcinoma, cons istent with urothelial primary. See comment. 16:55 [facility] Diagnosis The aspirate smears are high ly cellular consisting of malignant epithelial cells, lying singly and in small clusters, with high nuclear to cytoplasmic ratio, nuclear hyperchromasia, and dense cytoplasm. 01/26/2021 [facility] MEDICAL Comment Tumor cells with occasional cytoplasmic tails (cercariform cells) are also noted. Given the history of high grade urothelial carcinoma, the morphologic features are consistent with urothelial primary. 16:55 [facility] Please also see report of e concurrent core needle biopsy ([id number]) for additional diagnostic information including results of immunohistochemical stains. This case was reviewed in conjunction with LABORATORY the prior urine cytology [facility] shows similar tumor cells ([id number]). Fingernail Former slides of this case were reviewed at the intradepartmental consultation conference. SERVICES Attestation By the signature below, the attending physician certifies that they have personally conducted a gross and/or microscopic 0 01/26/2021 [facility] MEDICAL Electronically examination of the described specimens and rendered or confirmed the above diagnosis. 16:55 [facility] signed by MARIPOSA Sabillon, SERVICES Marry Mckee MD on 2020 at 1655 Rapid LYMPH NODE, PARAAORTIC, 5-6 CM, CT GUIDED FINE NEEDLE ASPIRATION: 01/26/2021 [facility] MEDICAL Diagnosis Evaluation episode #1: Passe s 1-3: Malignant cells present, favor metastatic carcinoma. 16:55 [facility] Evaluation episode #2: Passe s 4-6: Malignant cells present, favor metastatic carcinoma. Pass [address] Vilma Camp 01/22/2021 11:20 AM SERVICES Clinical Urothelial carcinoma 01/26/2021 [facility] NICOLE History with retroperitoneal 16:55 [facility] adenopathy LABORATORY SERVICES Gross A. 01/26/2021 [facility] MEDICAL Description 6 fixed prepared slides and 2 air dried prepared slides were received. 16:55 [facility] Performing [facility] LAB 01/26/2021 [facility] MEDIC AL Lab 16:55 [facility] Scanned 01/26/2021 [facility] MEDICAL Images 16:55 [facility] Specimen Anatomical Location / Collection Method Collection Roberto e Received Time (Source) Laterality / Volume Fine Needle SPECIMEN FROM 01/22/2021 11:11 01/22/2021 Aspirate RETROPERITONEUM / EST 11:27 EST Unknown Nj De Souza MD PATHOLOGY ORDERABLES Performing Organization Address City/State/ZIP Code Phon e Number [facility] [address] [place] [address] SERVICES PROTIME (01/22/2021 9:15 EST) P athologist Signature I.N.R. 1.0 0.9 - 1.1 01/22/2021 [facility] MEDICAL Ratio 10:03 [facility] LABORATORY SERVICES Pro Time 11.7 10.3 - 13.4 01/22/2021 [facility] MEDICAL secs 10:03 [facility] Specimen Anatomical Collection Method / Collection Time Recei bailey Time (Source) Location / Volume Laterality Blood VENOUS BLOOD / Venipuncture / 01/22/2021 9:15 01/22/20 21 9:18 Unknown Unknown EST EST Narrative [facility] - 01/22/2021 10:03 EST Moderate Intensity Coumadin INR = 2.0-3.0 Adjustments in anticoagulant therapy dos e should be based on the INR and NOT on the Protime. Steven Colmenares PA-C HEMATOLOGY & PF4 ORDERABLES Performing Organization Address City/State/ZIP Code Phon e Number [facility] [address] [place] [address] SERVICES (ABNORMAL) POCT GLUCOSE, INTERFACED (01/22/2021 9:13 EST) Patholo gist Method Time Signature Glucose, POC 133 (H) 70 - 100 01/22/2021 [facility] MEDICAL mg/dL 9:17 [facility] LABORATORY patent searcher ID [id number] 01/22/2021 [facility] MEDICAL 9:17 [facility] SERVICES HN LAB POC Test 01/22/2021 [facility] MEDICAL COMMENT Performed by 9:17 [facility] (GLUCOSE) Nursing LABORATORY Services SERVICES Specimen Anatomical Collection Method Collection Time Receive d Time (Source) Location / / Volume Laterality Blood CAPILLARY BLOOD / 01/22/2021 9:13 021 9:17 Unknown EST EST Doyle Renner MD POINT OF CARE TEST ORDERABLE S Performing Organization Address City/State/ZIP Code Phon e Number [facility] [address] [place] [address] SERVICES documented in this encounter Visit Diagnoses Diagnosis Malignant neoplasm of renal pelvis, unsp ecified laterality (HCC-CMS) (HCC) Retroperitoneal lymphadenopathy Enlargement of lymph nodes documented in this encounter Administered Medications Inactive Administered Medications - up to 3 most recent administrations Medication Order MAR Action Action Date Dose Rate Site acetaminophen (TYLENOL) suppository 650 mg 650 mg, rectal, EVERY 4 HOURS PRN, Starting on 12/29 at 1130, Until Mon01/22/21 at 1425, Pain, Routine acetaminophen (TYLENOL) tablet 650 mg 650 mg, oral, EVERY 4 HOURS PRN, Startin g on Mon01/22/21 at 1130, Until Mon01/22/21 at 1425, Pain, Routine fentaNYL citrate (PF) injection 25-250 m cg 25-250 mcg, intravenous, ONCE PRN, 1 dos e, Starting on Mon01/22/21 at 1112, Until Mon01/22/21 at 1425, Other, Radiology Procedure, Routi ne, Preprocedure flumazenil (ROMAZICON) injection 0.2 mg 0.2 mg, intravenous, ONCE PRN, 1 dose, S tarting on Mon01/22/21 at 1112, Until Mon01/22/21 at 1425, benzodiazepine reversal, Routine, Pre procedure lidocaine (PF) 10 mg/mL (1 %) injection 2 mg 2 mg, intradermal, PRN, 4 doses, Startin g on Mon01/22/21 at 0848, Until Mon01/22/21 at 1425, peripheral intravenous catheter placement, Ro utine, Preprocedure midazolam (PF) (VERSED) injection 0.5-10 mg 0.5-10 mg, intravenous, ONCE PRN, 1 dose , Starting on Mon01/22/21 at 1112, Until Mon01/22/21 at 1425, Sedation, Routine, Preprocedure naloxone (NARCAN) injection 0.4 mg 0.4 mg, intravenous, ONCE PRN, 1 dose, S tarting on Mon01/22/21 at 1112, Until Mon01/22/21 at 1425, Opioid Reversal, Routine, Preprocedur e sodium chloride 0.9 % (NS) infusion New Bag 01/22/2021 9:15 EST 50 mL/hr 50 mL/hr 50 mL/hr, intravenous, CONTINUOUS, Starting on Mon01/22/21 at 0915, Until Mon01/22/21 at 1425, Routine, Preprocedure documented in this encounter Discontinued Medications Medication Sig Discontinue Reason Start Date End Date celecoxib (CELEBREX) 100 TAKE ONE CAPSULE BY Therapy completed 07/202101/22/2021 mg capsule MOUTH EVERY 12 HOURS NEEDED lamoTRIgine (LAMICTAL) Take 100 mg by mouth Therapy completed 01/22/2021 100 mg tablet daily. documented as of this encounter Active and Recently Administered Medications Times are shown in EST. Continuous Medication Order 01/20/2021 01/21/2021 01/22/2021 sodium chloride 0.9 % (NS) infusion 0915 (New Bag - Provider: aCrl Hdz RN)1136 (Completed - Provider: Keyanna Downing RN) at 50 mL/hr, 50 mL/hr, intravenous, CONT INUOUS, Starting Mon01/22/21 at 0915, Until Mon01/22/21 at 1425, Routine, Preprocedure PRN Medication Order 01/20/2021 01/21/2021 01/22/2021 acetaminophen (TYLENOL) suppository 650 mg(Linked Group 1) 650 mg, rectal, EVERY 4 HOURS PRN, Start ing Mon01/22/21 at 1130, Until Mon01/22/21 at 1425, Pain, Routine acetaminophen (TYLENOL) tablet 650 mg(Linked Group 1) 650 mg, oral, EVERY 4 HOURS PRN, Startin g Mon01/22/21 at 1130, Until Mon01/22/21 at 1425, Pain, Routine fentaNYL citrate (PF) injection 25-250 mcg 25-250 mcg, intravenous, ONCE PRN, 1 dos e, Starting Mon01/22/21 at 1112, Until Mon01/22/21 at 1425, Other, Radiology Procedure, Routine, Preprocedure flumazenil (ROMAZICON) injection 0.2 mg 0.2 mg, intravenous, ONCE PRN, 1 dose, S tarting Mon01/22/21 at 1112, Until Mon01/22/21 at 1425, benzodiazepine reversal, Routine, Preprocedure lidocaine (PF) 10 mg/mL (1 %) injection 2 mg 2 mg, intradermal, PRN, 4 doses, Startin g Mon01/22/21 at 0848, Until Mon01/22/21 at 1425, peripheral intravenous catheter placement, Routine, Preprocedure midazolam (PF) (VERSED) injection 0.5-10 mg 0.5-10 mg, intravenous, ONCE PRN, 1 dose , Starting Mon01/22/21 at 1112, Until Mon01/22/21 at 1425, Sedation, Routine, Preprocedure naloxone (NARCAN) injection 0.4 mg 0.4 mg, intravenous, ONCE PRN, 1 dose, S tarting Mon01/22/21 at 1112, Until Mon01/22/21 at 1425, Opioid Reversal, Routine, Preprocedure Linked Groups Order Group 1: acetaminophen (TYLENOL) tablet 650 mgJump to med 650 mg, oral, EVERY 4 HOURS PRN, Startin g Mon01/22/21 at 1130, Until Mon01/22/21 at 1425, Pain, Routine Or acetaminophen (TYLENOL) suppository 650 mgJump to med 650 mg, rectal, EVERY 4 HOURS PRN, Start ing Mon01/22/21 at 1130, Until Mon01/22/21 at 1425, Pain, Routine documented in this encounter Orders Medications Ordered That Might Not Have Count Last Ord ered Date First Ordered Date Been Administered acetaminophen (TYLENOL) suppository 650 mg 1 01/22 acetaminophen (TYLENOL) tablet 650 mg 1 01/22/2021 fentaNYL citrate (PF) injection 25-250 mcg 1 01/22 flumazenil (ROMAZICON) injection 0.2 mg 1 01/22/20 21 lidocaine (PF) 10 mg/mL (1 %) injection 2 1 2020 mg midazolam (PF) (VERSED) injection 0.5-10 1 021 mg naloxone (NARCAN) injection 0.4 mg 1 01/22/2021 Nursing Count Last Ordered Date First Ordered Date BEDREST 1 01/22/2021 INSERT PERIPHERAL IV 1 01/22/2021 NOTIFY PHYSICIAN (SPECIFY) 1 01/22/2021 NURSING COMMUNICATION 3 01/22/2021 POST PROCEDURE SITE ASSESSMENT 1 01/22/2021 REMOVE IV 1 01/22/2021 VITAL SIGNS 1 01/22/2021 Discharge Count Last Ordered Date First Ordered Date DISCHARGE PATIENT 1 01/22/2021 documented in this encounter Care Teams Crusher Foreman Relationship Specialty Start Date End Date Marine Price FNP PCP - General Neurological Surgery 10/29/19 [address] [place] [address] documented as of this encounter
--- OUTSIDE RECORDS SUMMARY | 2022-10-07 18:46 | XMS_ITS | Encounter Summary ---
:1955 Author Organization [facility] Address [address] [place] [address] Care Team Providers Name Role Phone DeeMarine Angela BENITEZ Primary Care Provider [phone] Reason for Visit Reason Onset Date Comments Appointment Related 01/11/2021 Encounter Details Date Type Department Care Team Description 01/11/2021 Telephone [facility] Joseluis Toro MD Appointment Related Interventional Radiology [address] [facility] [address] deepali Feldman, [address] [place], [place] [id number] [place] [address] [phone] (Wo rk) Social History Tobacco Use Types [...] this encounter Miscellaneous Notes Telephone Encounter - Lillie Wilson - 01/11/2021 1009 EST Spoke with Nancy in regards to scheduling her CT guided paraaortic adenopathy biopsy. Ms. Lopez will be coming in on Friday, January 22, 2021 @ 9:00 a.m. Patient understands that they will need a coach driver for this procedure. They understand that they should plan to be here for 5 hours that day in total for prep, procedure and recovery. Spoke with patient about the need to be NPO after midnight, with the exception of clear liquids two hours prior to theirprocedure check in time 9:00 a.m. Covid19: - Patient confirmed they have not travelled outside state lines within the last 14 days & able to isolate from date of testing through date of IR procedure -Patient aware of need to have covid19 testing completed 4-7 days prior to their upcoming procedure.Provided contact for for testing center ([phone]) for patient to contact to set up testing. Medication instruction: - RN to contact with detailed pre procedure medication instructions - They will take their morning medications with a small sip of water. - Patient confirmed that they ARE taking blood thinning medication. *Patient states they are not taking KETOROLAC/TORADOL any longer and now are taking *CELECOXIB* I will check with IRC Nurse for medication instructions and will let patient be aware of medication management. Patient aware IR RN will contact prior to procedure to go over prep in detail and answer any questions. I have sent patient confirmation via mail. I have notified referring office, via phone call, of this patients scheduled date and time. Any further questions can be addressed to Interventional Radiology Department [phone] Ext. 1 Ms. Lopez verbalized understanding and agrees with Plan of Care. No cognitive barriers were identified during this conversation. She has our contact number to call with questions. LILLIE WILSON documented in this encounter Plan of Treatment Not on filedocumented as of this encounter Visit Diagnoses Not on filedocumented in this encounter Care Teams Loan Officer Assistant Relationship Specialty Start Date End Date Marine Price FNP PCP - General Neurological Surgery 10/29/19 [address] [place] [address] documented as of this encounter
--- OUTSIDE RECORDS SUMMARY | 2022-10-07 18:46 | XMS_ITS | Clinical Summary ---
:[address] [facility] Address [address] [place] [address] Care Team Providers Name Role Phone Marine Price DISPENSING AND MEASURING OPTICIAN Primary Care Provider [phone] Allergies Active Allergy Reactions Severity Noted Date Comments Lisinopril Cough 11/12/2014 Loratadine Palpitations 11/12/2014 hyper Ohlhhck-Trn-Tlb Reductase Other (See Comments) 014 Leg cramps Inhibitors Sulfa (Sulfonamide Antibiotics) Rash 4 Medications Medication Sig Dispensed Refills Start Date End Date Status blood glucose (ONE TOUCH 1 Strip by misc 0 Active ULTRA TEST) test strips (non-drug; combo route) route 3 times daily. cholecalciferol, Vitamin Take 1,000 0 Active D3, 1,000 unit tablet Units by mouth daily. losartan (COZAAR) 50 mg Take 100 mg by 0 Active tablet mouth daily. nystatin-triamcinolone Apply topically 0 Active (MYCOLOG II) cream 2 times daily. polyethylene glycol 3350 Take 17 g by 0 Active (MIRALAX) 17 gram packet mouth daily. insulin degludec (TRESIBA Inject 52 Units 0 Active FLEXTOUCH U-100) 100 into the skin unit/ml (3ml) insulin pen every evening. spironolactone Take 0.5 Tabs 45 Tab 3 12/30/2019 Active (ALDACTONE) 25 mg by mouth daily. tabletIndications: hypertension hydroCHLOROthiazide Take 1 Tab by 90 Tab 3 01/13/2021 Active (HYDRODIURIL) 12.5 mg mouth daily. tablet Active Problems Problem Noted Date Other proteinuria 11/05/2019 Albuminuria 11/05/2019 Diabetes mellitus due to underlying condition with sta ge 2 chronic kidney 11/05/2019 disease, with long-term current use of insulin (HCC-CM S) CKD (chronic kidney disease), stage II 11/05/2019 PTSD (post-traumatic stress disorder) 11/05/2019 Bladder incontinence 11/05/2019 Depression 11/05/2019 Surgical History Surgery Date Site/Laterality Comments ABDOMEN SURGERY HYSTERECTOMY SKIN BIOPSY BREAST SURGERY HERNIA REPAIR Medical History Medical History Date Comments Acne Diabetes mellitus (HCC) Arthritis Psoriasis Environmental allergies History of blood transfusion Varicella Hypertension Squamous cell carcinoma of skin 10/2014 right ar m Family History Medical History Relation Comments Cancer Mother Mental Illness Mother Hypertension Sister Kidney Disease Neg Hx Relation Status Comments Brother Mother Sister Alive Social History Tobacco Use Types Packs/Day Years Used Date Smoking Tobacco: Former Cigarettes 1 Smokeless Tobacco: Never Tobacco Cessation: Ready to Quit: Yes; C ounseling Given: Yes Comments: quit 09/2020 Alcohol Use Standard Drinks/Week Comments No 0 (1 standard drink = 0.6 oz pure alcoho l) Sex Assigned at Date Recorded Not on file Obstetrics History Last Filed Vital Signs Vital Sign Reading Time Taken Comments Blood Pressure 125/54 01/22/2021 1208 EST Pulse 90 01/12/2021 1316 EST Temperature 36.2 ??C (97.2 ??F) 01/22/2021 1208 EST Respiratory Rate 18 01/22/2021 1208 EST Oxygen Saturation 93% 01/22/2021 1208 EST Inhaled Oxygen Concentration - - Weight 92.1 kg (203 lb) 01/22/2021 0859 EST Height 160 cm (5' 3) 01/22/2021 0859 EST Body Mass Index 35.96 01/22/2021 0859 EST Plan of Treatment Health Maintenance Due Date Last Done Comments Eye Exam 1955 Foot Exam 1955 Hepatitis C Screen 1955 COVID-19 Vaccine (1) 1959 Fall Risk Screening 2019 Lipid Profile Screening 07/16/2021 07/16/2020 (Cholesterol) Hemoglobin A1C (Ha1C) 07/17/2021 01/17/2021, 07/16/2020, 03/25/2019, Additional history exists Microalbumin/Creatinine Ratio 07/26/2021 07/26/2020, 2019, 12/30/2019, Additional history exists Insurance Payer Benefit Plan / Subscriber ID Effective Dates Phone Addre ss Type Group MEDICARE MEDICARE A/B [id number] 2019-Presen P O NANCY X [id number] Medicare GL [place] [facility] [place] [phone] BCBS OOS [facility] [id number] 2017-Presen [address] Other GL [address] [place] [address] Nancy Lopez Personal/Family Self 1955 [address]Home) [place] [address] Nancy Lopez Personal/Family Self 1955 [address] [place] [id number] Nancy Lopez Personal/Family Self [address] [place] [address] Nancy Lopez Personal/Family Self [address] [place] [address] Nancy Lopez Personal/Family Self [address] [place] [address] Nancy Lopez Personal/Family Self 1955 [address]) [place] [id number] Nancy Lopez Personal/Family Self 1955 [address]Home) [place] [address] Care Teams Flexographic Press Helper Relationship Specialty Start Date End Date Marine Price FNP PCP - General Neurological Surgery 10/29/19 [address] [address]
--- OUTSIDE RECORDS SUMMARY | 2022-10-07 18:46 | XMS_ITS | Encounter Summary ---
:1955 Author Organization [facility] Address [address] [place] [address] Care Team Providers Name Role Phone Marine Price CASE PACKER Primary Care Provider [phone] Reason for Visit Reason Comments Chronic Kidney Disease Encounter Details Date Type Department Care Team Description 01/13/2021 Telemedicine [facility] Sweetie Burrell CKD (chronic kidney disease), stage II (Primary Dx); Nephrology - Rah Miguel MD GLORIA (acute kidney injury) ([facility]); [place] 1 [facility] Medication management; 1 [facility] Diabetes mellitus due to underlying cond ition with stage 2 chronic kidney disease, with long-term current use of insulin ([facility]); [place] [address] Rehab, Level 2 Other proteinuria; [phone] [place], [place] Hypertension, unspecified type; [id number] Hydronephrosis with ureteral stricture, not elsewhere classified Social History Tobacco Use Types Packs/Day Years [...] Sign Reading Time Taken Comments Blood Pressure 158/81 01/12/2021 1316 EST Pulse 90 01/12/2021 1316 EST Temperature - - Respiratory Rate - - Oxygen Saturation - - Inhaled Oxygen Concentration - - Weight 93.4 kg (206 lb) 01/12/2021 1316 EST Height 162.6 cm (5' 4) 01/12/2021 1316 EST Body Mass Index 35.36 01/12/2021 1316 EST documented in this encounter Patient Instructions Patient InstructionsSweetie Burrell MD - 01/13/2021 10:00 EST Discontinue amlodipine Start hydrochlorothiazide 12.5 mg daily No other medication changes at this time Please have labs done in 3-4 weeks (I have mailed you lab slips) Next visit in ~ 2 months. My office will contact you (either by phone or included in this paperwork)with an appointment but please reach out to the office if you have not been contacted. Please remember to have labs done a few days before your appointment. I have placed an order in the computer and have mailed lab slips if you regularly go to a lab outside of the [facility] network. documented in this encounter Ordered Prescriptions Prescription Sig Dispensed Refills Start Date End Date hydroCHLOROthiazide Take 1 Tab by 90 Tab 3 01/13/2021 (HYDRODIURIL) 12.5 mg tablet mouth daily. documented in this encounter Progress Notes Sweetie Burrell MD - 01/13/2021 1000 EST Images from the original note were not included. This Nephrology Visit/Progress note was conducted over the telephone Subjective: Ms. Rivas was last seen in clinic in June. Since that time she was diagnosed with a primary urothelial carcinoma and is undergoing full evaluation currently. She was hospitalized for and GLORIA in November due to hydronephrosis 2/2 ureteral stricture and RP LAD from the carcinoma. Stent was placed and her renal function has been improving. Her BP since that time has been elevated and she was started back on the amlodipine but I s concerned about this medication as she has had increased LE edema. Her PCP prescribed 10 days of Lasix 20 mg daily to manage this. She has not started it yet. Currently taking: Losartan 100 Spironolactone 12.5 Amlodipine 5 mg Blood pressures: Today 158/81 They had been 160/80-90 (120/79 when she was not stressed) Weight - has been 210 lbs . She has been otherwise struggling with stress due to the world situation. Speaks to a counselor. (psychiatric). Uses naproxen rarely but has been using Celebrex recently for pain r/t her malignancy. She has been trying to limit this. ROS: Breathing okay Never lightheaded LE edema is present Leg pain (r/t injury and neuropathy) with activity Appetite is good Sleeping poorly No dysuria No chest pain No palpitations Does have ongoing anxiety but no panic attacks Medications reviewed and if relevant notable for the following: Current Outpatient Medications on File Prior to Visit Medication Sig Dispense Refill ??? blood glucose (ONE TOUCH ULTRA TEST) test strips 1 Strip by misc (non-drug; combo route) route 3times daily. ??? celecoxib (CELEBREX) 100 mg capsule TAKE ONE CAPSULE BY MOUTH EVERY 12 HOURS NEEDED ??? cholecalciferol, Vitamin D3, 1,000 unit tablet Take 1,000 Units by mouth daily. ??? insulin degludec (TRESIBA FLEXTOUCH U-100) 100 unit/ml (3ml) insulin pen Inject 52 Units into the skin every evening. ??? lamoTRIgine (LAMICTAL) 100 mg tablet Take 100 mg by mouth daily. ??? liraglutide (VICTOZA 3-ARIAN) 0.6 mg/0.1 mL (18 mg/3 mL) injectable pen Inject 1.8 mg into the skin daily. ??? losartan (COZAAR) 50 mg tablet Take 100 mg by mouth daily. ??? nystatin-triamcinolone (MYCOLOG II) cream Apply topically 2 times daily. ??? polyethylene glycol 3350 (MIRALAX) 17 gram packet Take 17 g by mouth daily. ??? spironolactone (ALDACTONE) 25 mg tablet Take 0.5 Tabs by mouth daily. 45 Tab 3 No current facility-administered medications on file prior to visit. Objective: Vitals: 01/12/21 1316 BP: (!) 158/81 Pulse: 90 Weight: 93.4 kg (206 lb) Height: 162.6 cm (64) Labs reviewed and if relevant notable for the following: Results for NANCY RIVAS ( ) as of 01/15/2021 15:56 Ref. Range 01/08/2021 00:00 Sodium, External Unknown 140 Potassium, External Unknown 4.3 Chloride, External Unknown 103 CO2, External Unknown 29.0 BUN, External Unknown 30 Creatinine, External Unknown 1.30 Glucose, Serum, External Unknown 120 Calcium, External Unknown 9.4 Calculated Calcium, External Unknown See Comment GFR, Calculated, External Unknown See Comment Color UA, External Unknown yellow Clarity UA, External Unknown hazy Specific [place], Urine, External Unknown 1.020 pH UA, External Unknown 5.5 Glucose UA, External Unknown trace Bilirubin UA, External Unknown neg Ketones UA, External Unknown neg Blood UA, External Unknown large Protein UA, External Unknown 2+ Urobilinogen UA, External Unknown normal Nitrite UA, External Unknown neg Leukocyte Esterase UA, External Unknown trace WBC UA, External Unknown 10-25 RBC UA, External Unknown 50-100 Results for NANCY RIVAS ( ) as of 01/15/2021 15:56 Ref. Range 12/30/2020 00:00 WBC, External Unknown 12.2 RBC, External Unknown 3.55 Hemoglobin, External Unknown 10.2 HCT, External Unknown 33.0 MCH, External Unknown 28.7 MCV, External Unknown 93.0 MCHC, External Unknown 30.9 RDW-CV, External Unknown 13.1 PLT, External Unknown 345 Urine PCR 2.67 mg/mg (07/26/20) Urinalysis No results found for this visit on 01/13/21. No results found for: CREATININE, CALCGFR Lab Results Component Value Date MICRALBCRRAT 1,180.3 01/08/2019 CREATURNEXT 63 01/08/2019 Lab Results Component Value Date PTH 28 12/30/2019 No results found for: WBC, HGB, PLT, IRON, TIBC, FERRITIN Assessment: 65 y.o. woman with significant proteinuria and previously normal kidney function in the setting of known insulin dependent diabetes mellitus. Workup negative for multiple myeloma and primary membranousnephropathy. More recently she has been diagnosed with ureteral carcinoma and is currently undergoing full evaluation before management decisions are made (?chemo and/or nephrectomy). She has had a AKIdue to the ureteral stricture and hydronephrosis, but this seems to be improving. Plan: - Discontinue amlodipine - Start hydrochlorothiazide 12.5 mg daily - Continue losartan 100 mg daily and spironolactone 12.5 mg daily - Okay to use the Lasix 20 mg tablets that was prescribed for the next 10 days to help get rid of the swelling in your legs - Limit Celebrex - Labs in 3-4 weeks (nephrology profile) Follow-up in 2 months Labs to be ordered prior to next visit: neph profile, UA, urine protein to creatinine ratio (will need to order these based on the results of the above labs) Visit Diagnoses: 1. CKD (chronic kidney disease), stage II 2. GLORIA (acute kidney injury) ([facility]) 3. Medication management 4. Diabetes mellitus due to underlying condition with stage 2 chronic kidney disease, with long-termcurrent use of insulin ([facility]) 5. Other proteinuria 6. Hypertension, unspecified type 7. Hydronephrosis with ureteral stricture, not elsewhere classified This visit was conducted by telephone during which patient's symptoms, medication usage and recent laboratories were reviewed. The telephone call lasted 25 minutes. The concept of ???Telemedicine?? has been described to the patient.? Patient has been informed of the anticipated benefits and possible risks.? Patient understands the information provided regarding telemedicine, has had the opportunity to ask questions about this information, and all questions have been answered to patient???s satisfaction. Patient consents for the use of telemedicine in his/her medical care and authorizes the transmission of any relevant medical information to providers and theirstaff involved in patient???s medical or mental health care. Sweetie Burrell MD 01/15/21 documented in this encounter Plan of Treatment Not on filedocumented as of this encounter Visit Diagnoses Diagnosis CKD (chronic kidney disease), stage II - Primary Chronic kidney disease, Stage II (mild) GLORIA (acute kidney injury) ([facility]) ([facility] ) Acute kidney failure, unspecified Medication management Encounter for long-term (current) use of other medications Diabetes mellitus due to underlying cond ition with stage 2 chronic kidney disease, with long-term current use of insulin ([facility]) ([facility]) Other proteinuria Hypertension, unspecified type Hydronephrosis with ureteral stricture, not elsewhere classified documented in this encounter Discontinued Medications Medication Sig Discontinue Reason Start Date End Date amLODIPine (NORVASC) 5 mg Take 5 mg by mouth Alternate therapy 01/13/2021 tablet daily. documented as of this encounter Care Teams Customer Service Leader Relationship Specialty Start Date End Date Marine Price FNP PCP - General Neurological Surgery 10/29/[address] [place] [id number] documented as of this encounter
--- OUTSIDE RECORDS SUMMARY | 2022-10-07 18:46 | XMS_ITS | Encounter Summary ---
:1955 Author Organization [facility] Address [address] [place] [address] Care Team Providers Name Role Phone Marine Price Primary Care Provider [phone] Encounter Details Date Type Department Care Team Description 12/25/2020 Lab Requisition [facility] [place] Outr Resulting Lab, Pathology & Laboratory Provider [facility] [address] [place], [place] [address] Social History Tobacco Use Types Packs/Day Years [...] on filedocumented in this encounter Care Teams Industrial Property Appraiser Relationship Specialty Start Date End Date Marine Price FNP PCP - General Neurological Surgery 10/29/19 [address] [place] [address] documented as of this encounter
--- OUTSIDE RECORDS SUMMARY | 2022-10-07 18:46 | XMS_ITS | Encounter Summary ---
:1955 Author Organization [facility] Address [address] [facility] [address] Care Team Providers Name Role Phone Marine Price DAIRY EQUIPMENT REPAIRER Primary Care Provider Encounter Details Date Type Department Care Team Description 12/21/2020 Lab Requisition [facility] Gibson Renner MD Gross hematuria Pathology & Laboratory [address] [place] [address] [address] [place] [address] [place], [place] [id number] [phone] Social History Tobacco Use Types Packs/Day Years [...] Name Priority Date/Time Associated Diagnosis Comme nts NON ADVERTISING TEACHER/FNA Today 12/21/2020 18:59 Results for this CYTOLOGY EST procedure are i n the results section. documented in this encounter Results NON ADVERTISING TEACHER/FNA CYTOLOGY (12/21/2020 18:59 EST) Component Value Ref Test Analysis Performed At [facility] [place] Method Time Signature Final URINE, VOIDED, CYTOLOGIC EVALUATION: [facility] Diagnosis - Atypical urothelial cells present. See comment. 12:34 EST CENTER - Rare cells with features suggestive polyoma viral effect. LABORATORY SERVICES Diagnosis Cytologic evaluation shows s cattered markedly degenerated but atypical urothelial cells with high nuclear to cytoplasmic ratios, hyperchromasia and coarse chromatin. A neoplastic process cannot be excluded. 12/25/2020 [facility] Comment 12:34 EST CENTER Based on literature, volumes less than 25 ml have been associated with lower detection rate of high grade urothelial carcinoma in voided urine. A repeat urine sample may be indicated. LABORATORY SERVICES Attestation There was significant reside nt/fellow involvement in the diagnostic evaluation of this case. 12/25/2020 [facility] Leigh ctronically By the signature below, the attending physician certifies that they have personally conducted a gross and/or microscopic 12:34 [facility] signed by examination of the described specimens and rendered or confirmed the above diagnosis. LABORATORY Grisel Camp MD on 12/25/2020 at 1234 Clinical Klye hematuria; 12/25/2020 [facility] History R31.0 12:34 [facility] LABORATORY SERVICES Gross A. 12/25/2020 [facility] Description 3cc's of clear yellow fluid were received and processed by selective cellular enhancement technique. 12:34 [facility] LABORATORY SERVICES Resident/Mahi Graves, 12/25/2020 [facility] [place] w: 12:34 [facility] LABORATORY SERVICES Performing Lab [facility] 12/25/2020 [facility] AL LAB 12:34 [facility] LABORATORY SERVICES Scanned Images 12/25/2020 [facility] 12:34 [facility] LABORATORY SERVICES Specimen Anatomical Collection Method Collection Time Receive d Time (Source) Location / / Volume Laterality ZZUNK VOIDED URINE 12/21/2020 18:59 12/23/2020 6:39 SPECIMEN / Unknown EST EST Doyle Renner MD PATHOLOGY ORDERABLES Performing Organization Address City/State/ZIP Code Phon e Number [facility] [address] [place] [address] SERVICES documented in this encounter Visit Diagnoses Diagnosis Gross hematuria documented in this encounter Care Teams Laundry Bag Punch Operator Relationship Specialty Start Date End Date Marine Price FNP PCP - General Neurological Surgery 10/29/19 [address] [place], [place] [id number] documented as of this encounter
--- OUTSIDE RECORDS SUMMARY | 2022-10-07 18:46 | XMS_ITS | Encounter Summary ---
:1955 Author Organization [facility] Address [address] [place] [address] Care Team Providers Name Role Phone Marine Price DIE MAKER ELECTRONIC Primary Care Provider [phone] Reason for Visit Reason Onset Date Comments Coordination Of Care 01/04/2021 Encounter Details Date Type Department Care Team Description 01/04/2021 Telephone [facility] Sweetie Burrell rdination Of Care Nephrology - S Ana Miguel MD [address] [phone] Rehab, Level 2 [place] [address] (Wo rk) Social History Tobacco [...] this encounter Miscellaneous Notes Telephone Encounter - Kendra [place] RN - 01/05/2021 1157 EST Received message back from Dr. Burrell. She tried to page him but he is off today. Contacted Dr. Renner's office to see if there are any office notes available. They will fax recent notes to us. will be back in the office tomorrow at 0800. Will let Dental Laboratory Technology Teacher know that notes are being faxed. Telephone Encounter - Kendra [place] RN - 01/05/2021 [address] Burrell. Telephone Encounter - Selena Plata - 01/04/[address] Renner calling because he would like Dr. Burrell to have him paged at [phone] to speak with him regarding the patient. documented in this encounter Plan of Treatment Not on filedocumented as of this encounter Visit Diagnoses Not on filedocumented in this encounter Care Teams Manager Program Relationship Specialty Start Date End Date Marine Price FNP PCP - General Neurological Surgery 10/29/[address] [place] [address] documented as of this encounter
--- OUTSIDE RECORDS SUMMARY | 2022-10-07 18:46 | XMS_ITS | Encounter Summary ---
:1955 Author Organization [facility] Address [address] [place] [address] Care Team Providers Name Role Phone Marine Price MUSEUM ASSISTANT Primary Care Provider [phone] Encounter Details Date Type Department Care Team Description 01/12/[address] [facility] Enedina Burrell MD Nephrology - S Prosp ect [address] [place] [address] [place] [address] (Wo rk) Social History Tobacco [...] Name Priority Date/Time Associated Diagnosis Comme nts COMPLETE BLOOD COUNT Routine 12/27/2020 Results for this procedure are i n the results section . BASIC METABOLIC PANEL Routine 12/27/2020 Result s for this (BMP) procedure are i n the results section . COMPLETE BLOOD COUNT Routine 12/26/2020 Results for this procedure are i n the results section . BASIC METABOLIC PANEL Routine 12/26/2020 Result s for this (BMP) procedure are i n the results section . CREATININE Routine 12/23/2020 Results for thi s procedure are i n the results section . CREATININE Routine 12/18/2020 Results for thi s procedure are i n the results section . documented in this encounter Results BASIC METABOLIC PANEL (BMP) (12/27/2020) athologist [facility] GFR, [facility] Calculated, HOSPITAL LAB External Glucose, Serum, 166 [facility]OSPITAL LAB Calculated [facility] Calcium, HOSPITAL LAB External BUN, External 37 [facility]ITAL LAB Calcium, 9.1 [facility]OSPITAL LAB Chloride, 100 [facility]ITAL LAB CO2, External 27.0 [facility]ITAL LAB Creatinine, 1.60 [facility]ITAL LAB Fasting?, [facility] Potassium, 4.6 [facility] Sodium, 136 [facility]ITAL LAB Specimen (Source) Anatomical Location Collection Method / Collectio n Time Received Time / Laterality Volume Blood VENOUS BLOOD / 12/27/2020 Unknown Historical Provider CHEMISTRY & BLOOD GAS ORDERA BLES Performing Organization Address City/State/ZIP Code Phon e Number [facility] COMPLETE BLOOD COUNT (12/27/2020) athologist [facility] HCT, External 35.9 [facility] MCH, External 28.7 [facility] MCV, External 91.1 [facility] MCHC, External 31.5 [facility] Hemoglobin, 11.3 [facility] WBC, External 14.5 [facility] RBC, External 3.94 [facility] PLT, External 347 [facility] RDW-CV, 13.1 [facility] Specimen (Source) Anatomical Location Collection Method / Collectio n Time Received Time / Laterality Volume Blood VENOUS BLOOD / 12/27/2020 Unknown Historical Provider HEMATOLOGY & PF4 ORDERABLES Performing Organization Address City/State/ZIP Code Phon e Number [facility] BASIC METABOLIC PANEL (BMP) (12/26/2020) athologist [facility] GFR, [facility] Calculated, HOSPITAL LAB External Glucose, Serum, 156 [facility]ITAL LAB Calculated [facility] Calcium, HOSPITAL LAB External BUN, External 32 [facility]ITAL [facility] Calcium, 9.0 [facility]ITAL LAB Chloride, 98 [facility]ITAL [facility] CO2, External 30.0 [facility] Creatinine, 1.60 [facility]ITAL LAB Fasting?, [facility] Potassium, 4.6 [facility] Sodium, 134 [facility] Specimen (Source) Anatomical Location Collection Method / Collectio n Time Received Time / Laterality Volume Blood VENOUS BLOOD / 12/26/2020 Unknown Historical Provider CHEMISTRY & BLOOD GAS ORDERA BLES Performing Organization Address City/State/ZIP Code Phon e Number [facility] COMPLETE BLOOD COUNT (12/26/2020) P athologist Signature HCT, External 35.0 [facility] MCH, External 28.7 [facility] MCV, External 92.1 [facility] MCHC, External 31.1 [facility] Hemoglobin, 10.9 [facility] WBC, External 17.1 [facility] RBC, External 3.80 [facility] PLT, External 339 [facility] RDW-CV, 13.2 [facility] Specimen (Source) Anatomical Location Collection Method / Collectio n Time Received Time / Laterality Volume Blood VENOUS BLOOD / 12/26/2020 Unknown Historical Provider HEMATOLOGY & PF4 ORDERABLES Performing Organization Address City/[facility]/ZIP Code Phon e Number [facility] CREATININE (12/23/2020) P athologist Signature Creatinine, 1.40 [facility] GFR, [facility], [facility] External Specimen (Source) Anatomical Location Collection Method / Collectio n Time Received Time / Laterality Volume Blood VENOUS BLOOD / 12/23/2020 Unknown Historical Provider CHEMISTRY & BLOOD GAS ORDERA BLES Performing Organization Address City/State/ZIP Code Phon e Number [facility] CREATININE (12/18/2020) P athologist Signature Creatinine, 1.40 [facility] GFR, [facility], [facility] External Specimen (Source) Anatomical Location Collection Method / Collectio n Time Received Time / Laterality Volume Blood VENOUS BLOOD / 12/18/2020 Unknown Historical Provider CHEMISTRY & BLOOD GAS ORDERA BLES Performing Organization Address City/State/ZIP Code Phon e Number [facility] documented in this encounter Visit Diagnoses Not on filedocumented in this encounter Care Teams Professor Of Special Education Relationship Specialty Start Date End Date [place], Marine J, MUSEUM ASSISTANT PCP - General Neurological Surgery 10/29/19 [address] [place] [address] documented as of this encounter
--- OUTSIDE RECORDS SUMMARY | 2022-10-07 18:46 | XMS_ITS | Encounter Summary ---
:1955 Author Organization [facility] Address [address] [place] [address] Care Team Providers Name Role Phone Marine Price EMMANUEL Primary Care Provider [phone] Encounter Details Date Type Department Care Team Description 01/12/2021 Orders Only [facility] Darrick Lopez, home care associate Radiology - [address] [place] [address] [id number] Social History Tobacco Use Types Packs/Day Years [...] / COVID-19? documented as of this encounter Progress Notes Mellisa Lopez RN - 01/12/2021 0898 EST Call from Nancy at [facility] urology to update Nancy is on celebrex ( we do have records of thatmedication), this medication needs to be held x 48 hours. Pt is no longer on toradol. Per request will fax a copy of Nancy prep info to Kellee. documented in this encounter Plan of Treatment Not on filedocumented as of this encounter Visit Diagnoses Not on filedocumented in this encounter Historical Medications This list may reflect changes made after this encounter. Medication Sig Dispensed Refills Start Date End Date celecoxib (CELEBREX) 100 TAKE ONE CAPSULE BY 0 01/22/2021 mg capsule MOUTH EVERY 12 HOURS NEEDED added in this encounter Care Teams Behavioral Intervention Specialist Relationship Specialty Start Date End Date Marine Price FNP PCP - General Neurological Surgery 10/29/[address] [place] [address] documented as of this encounter
--- OUTSIDE RECORDS SUMMARY | 2022-10-07 18:46 | XMS_ITS | Encounter Summary ---
:1955 Author Organization [facility] Address [address] [place] [address] Care Team Providers Name Role Phone Marine Price RELAY CHECKER Primary Care Provider [phone] Encounter Details Date Type Department Care Team Description 01/12/2021 Abstract [facility] Enedina Burrell MD Nephrology - S Prosp ect [address] [place] [address] [place] [address] (Wo rk) Social History Tobacco [...] documented as of this encounter Miscellaneous Notes Result Encounter Note - Sweetie Burrell MD - 01/12/2021 0948 EST Abnormal, creatinine increased, please the contact the patient to tell her about the results and thefollowing changes in therapy: Stop Celebrex. Please ask her what her range of blood pressures have been. Result Encounter Note - Sweetie Burrell MD - 01/12/2021 0948 EST But please reassure her that her kidney function is improving. I should see repeat labs this week (nephrology profile, urine protein to creatinine ratio) to make sure it is still improving. documented in this encounter Plan of Treatment Not on filedocumented as of this encounter Procedures Procedure Name Priority Date/Time Associated Diagnosis Comme nts URINE CHEMICAL (DIP) & Routine 01/08/2021 Resul ts for this SEDIMENT (MICRO) procedure a re in the WITHOUT REFLEX TO results se ction. CULTURE BASIC METABOLIC PANEL Routine 01/08/2021 Result s for this (BMP) procedure are i n the results section . COMPLETE BLOOD COUNT Routine 12/30/2020 Results for this procedure are i n the results section . BASIC METABOLIC PANEL Routine 12/30/2020 Result s for this (BMP) procedure are i n the results section . documented in this encounter Results BASIC METABOLIC PANEL (BMP) (01/08/2021) athologist Signature GFR, [facility] Calculated, HOSPITAL LAB External Glucose, Serum, 120 [facility]ITAL LAB Calculated [facility] Calcium, HOSPITAL LAB External BUN, External 30 [facility] Calcium, 9.4 [facility]ITAL LAB Chloride, 103 [facility] CO2, External 29.0 [facility] Creatinine, 1.30 [facility] Fasting?, [facility] Potassium, 4.3 [facility]ITAL LAB Sodium, 140 [facility] Specimen (Source) Anatomical Location Collection Method / Collectio n Time Received Time / Laterality Volume Blood VENOUS BLOOD / 01/08/2021 Unknown Historical Provider CHEMISTRY & BLOOD GAS ORDERA BLES Performing Organization Address City/State/ZIP Code Phon e Number [facility] URINE CHEMICAL (DIP) & SEDIMENT (MICRO) WITHOUT REFLEX TO CULTURE (01/08/2021) [facility] Method Time Signature Protein UA, 2+ [facility]OSPITAL LAB pH UA, External 5.5 [facility]ITAL [facility] UA Comment, [facility] HOSPITAL LAB Specific [place], [address] [place] Urine, External HOSPITAL LAB [place], [place] UA, External HOSPITAL LAB Glucose UA, trace [facility]OSPITAL LAB WBC UA, External 10-25 [facility] Blood UA, large [facility]OSPITAL LAB Bilirubin UA, neg [facility] Nitrite UA, neg [facility] Leukocyte trace [facility] Esterase UA, HOSPITAL LAB External Clarity UA, hazy [facility] Renal Epithelial, [facility] Bacteria, moderate [facility] Mucus, UA, rare [facility] Ketones UA, neg [facility] Casts, External [facility] Color UA, yellow [facility] Crystals, [facility] RBC UA, External 50-100 [facility] Urobilinogen UA, normal [facility] Specimen (Source) Anatomical Location Collection Method / Collectio n Time Received Time / Laterality Volume Urine URINE SPECIMEN 01/08/2021 COLLECTION, CLEAN CATCH / Unknown Historical Provider URINALYSIS ORDERABLES Performing Organization Address City/State/ZIP Code Phon e Number [facility] BASIC METABOLIC PANEL (BMP) (12/30/2020) athologist Signature GFR, [facility], HOSPITAL LAB External Glucose, Serum, 230 [facility] Calculated [facility] Calcium, HOSPITAL LAB External BUN, External 34 [facility] Calcium, 8.8 [facility] Chloride, 104 [facility] CO2, External 26.0 [facility] Creatinine, 1.70 [facility] Fasting?, [facility] Potassium, 4.9 [facility] Sodium, 138 [facility] Specimen (Source) Anatomical Location Collection Method / Collectio n Time Received Time / Laterality Volume Blood VENOUS BLOOD / 12/30/2020 Unknown Historical Provider CHEMISTRY & BLOOD GAS ORDERA BLES Performing Organization Address City/State/ZIP Code Phon e Number [facility] COMPLETE BLOOD COUNT (12/30/2020) athologist Signature HCT, External 33.0 [facility] MCH, External 28.7 [facility] MCV, External 93.0 [facility] MCHC, External 30.9 [facility] Hemoglobin, 10.2 [facility] WBC, External 12.2 [facility] RBC, External 3.55 [facility] PLT, External 345 [facility] RDW-CV, 13.1 [facility] Specimen (Source) Anatomical Location Collection Method / Collectio n Time Received Time / Laterality Volume Blood VENOUS BLOOD / 12/30/2020 Unknown Historical Provider HEMATOLOGY & PF4 ORDERABLES Performing Organization Address City/State/ZIP Code Phon e Number [facility] documented in this encounter Visit Diagnoses Not on filedocumented in this encounter Care Teams Miller First Relationship Specialty Start Date End Date Marine Price FNP PCP - General Neurological Surgery 10/29/19 [address] [place] [address] documented as of this encounter
--- OUTSIDE RECORDS SUMMARY | 2022-10-07 18:46 | XMS_ITS | Encounter Summary ---
:1955 Author Organization [facility] Address [address] [place] [address] Care Team Providers Name Role Phone Marine Price PORTRAIT PAINTER Primary Care Provider [phone] Encounter Details Date Type Department Care Team Description 01/18/2021 Abstract [facility] Enedina Burrell MD Nephrology - S Prosp ect [address], [address] [place] [address] [place] [address] (Wo rk) Social History Tobacco [...] Procedure Name Priority Date/Time Associated Comments Diagnosis COMPLETE BLOOD COUNT Routine 01/17/2021 14:21 Res ults for this EST procedure are i n the results section. HEMOGLOBIN A1C Routine 01/17/2021 14:21 Results f or this EST procedure are i n the results section. BASIC METABOLIC Routine 01/17/2021 14:21 Results for this PANEL (BMP) EST procedure are i n the results section. documented in this encounter Results BASIC METABOLIC PANEL (BMP) (01/17/2021 14:21 EST) P athologist Signature GFR, [facility] Calculated, HOSPITAL LAB External Glucose, Serum, 183 [facility]OSPITAL LAB Calculated [facility] Calcium, HOSPITAL LAB External BUN, External 37 [facility] Calcium, 9.3 [facility] Chloride, 102 [facility] CO2, External 27.0 [facility] Creatinine, 1.40 [facility] Fasting?, [facility] Potassium, 4.2 [facility] Sodium, 139 [facility] Specimen (Source) Anatomical Collection Method Collection Time Re ceived Time Location / / Volume Laterality Blood VENOUS BLOOD / 01/17/2021 14:21 Unknown EST Historical Provider CHEMISTRY & BLOOD GAS ORDERA BLES Performing Organization Address City/State/ZIP Code Phon e Number [facility] COMPLETE BLOOD COUNT (01/17/2021 14:21 EST) athologist Signature HCT, External 39.5 [facility] MCH, External 28.5 [facility] MCV, External 92.3 [facility] MCHC, External 30.9 [facility] Hemoglobin, 12.2 [facility] WBC, External 10.4 [facility] RBC, External 4.28 [facility] PLT, External 347 [facility] RDW-CV, 13.3 [facility] Specimen (Source) Anatomical Collection Method Collection Time Re ceived Time Location / / Volume Laterality Blood VENOUS BLOOD / 01/17/2021 14:21 Unknown EST Historical Provider HEMATOLOGY & PF4 ORDERABLES Performing Organization Address City/State/ZIP Code Phon e Number [facility] HEMOGLOBIN A1C (01/17/2021 14:21 EST) athologist Signature Hemoglobin A1C, 7.5 [facility] Est Avg [facility] Glucose, HOSPITAL LAB External Specimen (Source) Anatomical Collection Method Collection Time Re ceived Time Location / / Volume Laterality Blood VENOUS BLOOD / 01/17/2021 14:21 Unknown EST Historical Provider CHEMISTRY & BLOOD GAS ORDERA BLES Performing Organization Address City/State/ZIP Code Phon e Number [facility] documented in this encounter Visit Diagnoses Not on filedocumented in this encounter Care Teams Staffing Administrator Relationship Specialty Start Date End Date Dee, Marine J, PORTRAIT PAINTER PCP - General Neurological Surgery 10/29/19 [address] [place] [address] documented as of this encounter
--- OUTSIDE RECORDS SUMMARY | 2022-10-07 18:46 | XMS_ITS | Encounter Summary ---
:1955 Author Organization [facility] Address [address] [place] [address] Care Team Providers Name Role Phone Marine Price PEACH GROWER Primary Care Provider [phone] Reason for Visit Reason Onset Date Comments Coordination Of Care 01/05/2021 Encounter Details Date Type Department Care Team Description 01/05/2021 Telephone [facility] Sweetie Burrell rdination Of Care Nephrology - Rah Miguel MD [address] [phone] Rehab, Level 2 [place] [address] (Wo rk) Social History Tobacco Use Types Packs/Day Years Used Date Smoking Tobacco: Every Day Cigarettes 1 Smokeless Tobacco: Never Alcohol Use Standard Drinks/Week Comments No 0 (1 standard drink = 0.6 oz pure alcoho l) Sex Assigned at Date Recorded Not on file documented as of this encounter Miscellaneous Notes Telephone Encounter - Kendra Washington RN - 01/05/2021 1138 EST Returned call to PCP office. Left instructions that short term use was OK. Telephone Encounter - Selena Plata - 01/05/2021 1114 EST Pt's PCP calling because she is seeking assistance for pain management. The pt has said that anti-inflammatory works best for the pain. They want to know if celebrex 100 mg x2 on an as needed basis would be okay for her kidneys. documented in this encounter Plan of Treatment Not on filedocumented as of this encounter Visit Diagnoses Not on filedocumented in this encounter Care Teams Alliance Consultant Relationship Specialty Start Date End Date Marine Price FNP PCP - General Neurological Surgery 10/29/19 [address] [place] [address] documented as of this encounter
--- OUTSIDE RECORDS SUMMARY | 2022-10-07 18:46 | XMS_ITS | Encounter Summary ---
:1955 Author Organization [facility] Address [address] [place] [address] Care Team Providers Name Role Phone Marine Price SURGICAL AIDE Primary Care Provider [phone] Encounter Details Date Type Department Care Team Description 01/18/2021 Lab Requisition [facility] Outr Resulting Lab, Pathology & Laboratory Provider [facility] [address] [place], [place] [address] Social History Tobacco Use Types Packs/Day Years [...] Name Priority Date/Time Associated Diagnosis Comme nts COVID-19 TEST UVC Today 01/18/2021 15:43 LAB PCR EST COVID-19 TESTING Routine 01/18/2021 15:43 Results for this EST procedure are i n the results section. documented in this encounter Results COVID-19 TEST UVC LAB PCR (01/18/2021 15:43 EST) Specimen Anatomical Location Collection Method Collection Time Received Time (Source) / Laterality / Volume Swab ENTIRE NASOPHARYNX 01/18/2021 15:43 01/18 / Unknown EST 22:37 EST Provider Outr Resulting Lab MICROBIOLOGY - GENERAL ORD ERABLES Performing Organization Address City/State/ZIP Code Phon e Number [facility] [address] [place] [address] SERVICES COVID-19 TESTING (01/18/2021 15:43 EST) [facility] Signature COVID-19 Negative Negative 01/19/2021 [facility] MEDICAL rt-PCR Result 13:56 EST CENTER LABORATORY SERVICES Comment: This test has not been FDA cleared or ap proved. This test has been authorized by FDA under an EUA for use by authorized laboratories. This test has been authorized only for detection of nucleic acid fro m 2019-nCoV, not for any other viruses o r pathogens. This test is only authorized for the duration of the declaration that circumstances exist justifying the authorization of emergency use of in vitro d iagnostic tests for detection and/or shakeel gnosis of 2019-nCoV under section 564(b)(1) of Act, 21 U.S.C ?? 360bbb-3(b) (1), unless the authorization is terminated or revoked sooner. Negative results do not preclude 2019-nC oV infection and should not be used as the sole basis for treatment or other patient management decisions. Negative results must be combined with clinical observa tions, patient history, and epidemiologi ava information. Testing was performed using the raj SA RS-CoV-2 assay ([employer] on the Raj 6800 System Performing Lab Raj 6800 [facility] 01/19/2021 13:56 E [facility] Lab LABORATORY SERVICES Specimen Anatomical Collection Method Collection Time Receive d Time (Source) Location / / Volume Laterality Swab 01/18/2021 15:43 01/18/2021 EST 22:37 EST Provider Outr Resulting Lab MICROBIOLOGY - GENERAL ORD ERABLES Performing Organization Address City/[facility]/ZIP Code Phon e Number [facility] [address] [place] [address] SERVICES documented in this encounter Visit Diagnoses Not on filedocumented in this encounter Care Teams Rug Cleaner Helper Relationship Specialty Start Date End Date Marine Price FNP PCP - General Neurological Surgery 10/29/19 [address] [place], [place] [address] documented as of this encounter
--- OUTSIDE RECORDS SUMMARY | 2022-10-07 18:46 | XMS_ITS | Encounter Summary ---
:1955 Author Organization [facility] Address [address] [place] [address] Care Team Providers Name Role Phone Marine Price Angela BENITEZ Primary Care Provider [phone] Reason for Referral Radiology Services (Urgent) - Closed Specialty Diagnoses / Procedures Referred By Contact Refer red To Contact Nuclear Medicine Diagnoses Malignant neoplasm of unspecified kidney, except renal pelvis ([facility]) ([facility]) Doyle Renner MD Procedures PET CT EYE TO THIGH [address] [place] [address] [place] [address] Referral ID Status Reason Start Date Expiration Date Visits Requ ested Visits Authorized [id number] Closed 01/01/2021 01/30/2021 1 1 Reason for Visit Radiology Services (Urgent) - Closed Specialty Diagnoses / Procedures Referred By Contact Refer red To Contact Nuclear Medicine Diagnoses Malignant neoplasm of unspecified kidney, except renal pelvis ([facility]) ([facility]) Doyle Renner MD Procedures PET CT EYE TO [address] [place] [address] Referral ID Status Reason Start Date Expiration Date Visits Requ ested Visits Authorized [id number] Closed 01/01/2021 01/30/2021 1 1 Encounter Details Date Type Department Care Team Description 01/06/2021 Hospital Encounter [facility] Malign ant neoplasm of Radiology Nuclear unspecifie d kidney, Medicine and PET - except re nal pelvis [facility] ([facility]) [address] [facility] [place], [place] [address] Social History Tobacco Use Types Packs/Day Years [...] / COVID-19? documented as of this encounter Medications at Time of Discharge Medication Sig Dispensed Refills Start Date End Date blood glucose (ONE TOUCH 1 Strip by misc 0 ULTRA TEST) test strips (non-drug; combo route) route 3 times daily. cholecalciferol, Vitamin Take 1,000 Units by 0 D3, 1,000 unit tablet mouth daily. insulin degludec (TRESIBA Inject 52 Units into 0 FLEXTOUCH U-100) 100 the skin every unit/ml (3ml) insulin pen evening. losartan (COZAAR) 50 mg Take 100 mg by mouth 0 tablet daily. nystatin-triamcinolone Apply topically 2 0 (MYCOLOG II) cream times daily. polyethylene glycol 3350 Take 17 g by mouth 0 (MIRALAX) 17 gram packet daily. spironolactone Take 0.5 Tabs by 45 Tab 3 12/30/2019 (ALDACTONE) 25 mg mouth daily. tabletIndications: hypertension amLODIPine (NORVASC) 5 mg Take 5 mg by mouth 0 01/13/2021 tablet daily. celecoxib (CELEBREX) 100 TAKE ONE CAPSULE BY 0 01/22/2021 mg capsule MOUTH EVERY 12 HOURS NEEDED lamoTRIgine (LAMICTAL) Take 100 mg by mouth 0 01/22/2021 100 mg tablet daily. liraglutide (VICTOZA Inject 1.8 mg into 0 01/15/2021 3-ARIAN) 0.6 mg/0.1 mL (18 the skin daily. mg/3 mL) injectable pen metFORMIN (GLUCOPHAGE) Take 1,000 mg by 0 01/11/2021 1,000 mg tablet mouth 2 times daily. naproxen (NAPROSYN) 500 Take 500 mg by mouth 0 01/11/2021 mg tablet as needed. documented as of this encounter Discharge Disposition Disposition Code Departure Means Destination Home or Self Care documented in this encounter Plan of Treatment Not on filedocumented as of this encounter Procedures Procedure Name Priority Date/Time Associated Diagnosis Comme nts PET CT EYE TO THIGH STAT 01/06/2021 13:41 Malignant neoplas m Results for this EST of unspecified procedure are in kidney, except renal the res ults pelvis (HCC-CMS) section. POCT GLUCOSE, Routine 01/06/2021 10:55 Results fo r this INTERFACED EST procedure are i n the results section. documented in this encounter Results PET CT EYE TO THIGH (01/06/2021 13:41 EST) Anatomical Region Laterality Modality Body Positron Emission To mography (PET) Specimen (Source) Anatomical Collection Method Collection Time Re ceived Time Location / / Volume Laterality 01/06/2021 14:58 EST Impressions 01/06/2021 14:58 EST 1. ??FDG avidity corresponding to nodularity along the right renal pelvis, consistent with known history of urothelial carcinoma. Right retroperitoneal lymph nodes remain enlarged and are FDG avid, cons istent with champ spread of malignancy. 2. ??While asymmetric focus of increased FDG uptake in the left midbrain is favored to be either physiologic or artifactual, correlation with contrast- enhanced MRI of the head is suggested. 3. ??Mildly increased FDG uptake associa sobia with soft tissue thickening along the umbilicus, most likely inflammatory. Correlation with physical examination is suggested. 4. ??Soft tissue nodularity in the left adrenal gland is unchanged and does not demonstrate increased FDG uptake, favored to represent benign adenoma or myelolipoma. 5. ??Coronary and aortic atherosclerosis . Narrative 01/06/2021 14:[address] EYE TO THIGH 01/06/2021 10:30 AM Signs and Symptoms: ??urothelial cell ca rcinoma, right renal pelvis with adenopathy Comparison: CT angiogram from outside in stitution from 12/18/2020. Fluoroscopic images from retrograde pyelography from 12/25/2020. Technique: Approximately 94 minutes following the I V injection of 9.1 mCi of F18- fluorodeoxyglucose, 3D TOF PET imaging was obtained from the skull base to upper thighs using a [employer] digital ??PET/CT sys tem. ??The blood glucose level prior to injection was 96 mg/dl. ??The injection site was the left antecubital fossa. Oral contrast was administered. Findings: HEAD/NECK: There is a asymmetric focus of increased radiotracer uptake at the level of the midbrain on the left (CTAC image 236). This is not associated with CT correlate. No further abnormal foci of increased FDG uptake are identified in the head or neck. There is calcific atherosclerosis at the level of the carotid bifurcations. Dental disease is noted. Paranasal sinuses and mastoid air cells are clear. Bilateral lens replacements are noted. There are no enlarged lymph nodes in the neck bilaterally. CHEST: There are no abnormal foci of increased FDG uptake in the thorax. There is a small to moderate pericardial effusion. There is calcific atherosclerosis of the coronary arteries. Mild atherosclerosis of the thoracic aorta and its major branches is noted. There are regio ns of linear scarring and atelectasis in involving both lungs. ABDOMEN/PELVIS: There is nodular increased FDG uptake (S UV max 18.7) at the sites of urothelial thickening in the right renal pelvis particularly along the posterior medial aspect of the right renal pelvis and to a les ser extent along the anterolateral aspec t of the pelvis. Previously seen enlarged right para-aort ic lymph nodes also demonstrate increased FDG uptake. For example retrocaval lymph node now measures 1.8 cm in short axis, similar compared to CT from 12/18/2020 a nd demonstrates intense FDG uptake, SUV max 14.9. Borderline enlarged aortocaval lymph node measuring 1.0 cm in short axis is also similar in size compared to CT from 12/18/2020 with increased FDG uptake, SUV max 11.4. There is mild soft tissue thickening gordo ng the umbilicus which is associated with increased FDG uptake, SUV max 6.2, most likely inflammatory. Soft tissue nodularity along the posteri or aspect of the medial limb of the left adrenal gland is unchanged compared to prior studies measuring roughly 2 x 1.3 cm and demonstrates no increased FDG uptak e. This lesion may contain macroscopic f at, difficult to assess on low-dose CT. Compared to CT from 12/18/2020, there has been interval placement of a right ureteral stent with its proximal loop in the right renal pelvis and its distal loop just beyond the ureterovesicular junction within the urinary bladder. Calcificatio n in the upper pole of the left kidney is favored to be vascular. There is persistent moderate right hydronephrosis. There is extensive calcific atherosclerosis o f the abdominal aorta and its major bran ches without evidence of aneurysm. MUSCULOSKELETAL: Focally increased radiotracer uptake gordo ng the left ischial tuberosity and along the greater trochanter of the left hip are favored to be enthesopathic. No concerning FDG avid focal osseous lesions are identified. Degenerative changes are present through out the spine and involving the bony pelvis including both sacroiliac joints and both hips. Procedure Note Shanta Abreu MD - 01/06/[address] EYE TO THIGH 01/06/2021 10:30 AM Signs and Symptoms: urothelial cell carc inoma, right renal pelvis with adenopathy Comparison: CT angiogram from outside in stitution from 12/18/2020. Fluoroscopic images from retrograde pyelography from 12/25/2020. Technique: Approximately 94 minutes following the I V injection of 9.1 mCi of F18- fluorodeoxyglucose, 3D TOF PET imaging was obtained from the skull base to upper thighs using a [employer] digital PET/CT system. The blood glucose level prior to injection w as 96 mg/dl. The injection site was the left antecubital fossa. Oral contrast was administered. Findings: HEAD/NECK: There is a asymmetric focus of increased radiotracer uptake at the level of the midbrain on the left (CTAC image 236). This is not associated with CT correlate. No further abnormal foci of increased FDG uptake are identified in the head or neck. There is calcific atherosclerosis at the level of the carotid bifurcations. Dental disease is noted. Paranasal sinuses and mastoid air cells are clear. Bilateral lens replacements are noted. There are no enlarged lymph nodes in the neck bilaterally. CHEST: There are no abnormal foci of increased FDG uptake in the thorax. There is a small to moderate pericardial effusion. There is calcific atherosclerosis of the coronary arteries. Mild atherosclerosis of the thoracic aorta and its major branches is noted. There are regions of linear scarring and atelectasis in invol ving both lungs. ABDOMEN/PELVIS: There is nodular increased FDG uptake (S UV max 18.7) at the sites of urothelial thickening in the right renal pelvis particularly along the posterior medial aspect of the right renal pelvis and to a lesser extent along the anterolateral aspect of the pe lvis. Previously seen enlarged right para-aort ic lymph nodes also demonstrate increased FDG uptake. For example retrocaval lymph node now measures 1.8 cm in short axis, similar compared to CT from 12/18/2020 and demonstrates intense FDG uptake, SUV max 14.9. Border line enlarged aortocaval lymph node measuring 1.0 cm in short axis is also similar in size compared to CT from 12/18/2020 with increased FDG uptake, SUV max 11.4. There is mild soft tissue thickening gordo ng the umbilicus which is associated with increased FDG uptake, SUV max 6.2, most likely inflammatory. Soft tissue nodularity along the posteri or aspect of the medial limb of the left adrenal gland is unchanged compared to prior studies measuring roughly 2 x 1.3 cm and demonstrates no increased FDG uptake. This lesion may contain macroscopic fat, difficult t o assess on low-dose CT. Compared to CT from 12/18/2020, there has been interval placement of a right ureteral stent with its proximal loop in the right renal pelvis and its distal loop just beyond the ureterovesicular junction within the urinary bladder. Calcification in the up per pole of the left kidney is favored to be vascular. There is persistent moderate right hydronephrosis. There is extensive calcific atherosclerosis of the abdominal aorta and its major branches without evidence of aneur ysm. MUSCULOSKELETAL: Focally increased radiotracer uptake gordo ng the left ischial tuberosity and along the greater trochanter of the left hip are favored to be enthesopathic. No concerning FDG avid focal osseous lesions are identified. Degenerative changes are present through out the spine and involving the bony pelvis including both sacroiliac joints and both hips. IMPRESSION 1. FDG avidity corresponding to nodulari ty along the right renal pelvis, consistent with known history of urothelial carcinoma. Right retroperitoneal lymph nodes remain enlarged and are FDG avid, consistent with champ spread of malignancy. 2. While asymmetric focus of increased F DG uptake in the left midbrain is favored to be either physiologic or artifactual, correlation with contrast- enhanced MRI of the head is suggested. 3. Mildly increased FDG uptake associate d with soft tissue thickening along the umbilicus, most likely inflammatory. Correlation with physical examination is suggested. 4. Soft tissue nodularity in the left ad renal gland is unchanged and does not demonstrate increased FDG uptake, favored to represent benign adenoma or myelolipoma. 5. Coronary and aortic atherosclerosis. Doyle BURNS NM ORDERABLES POCT GLUCOSE, INTERFACED (01/06/2021 10:55 EST) [facility] gist Method Time Signature Glucose, POC 98 70 - 100 01/06/2021 [facility] mg/dL 11:09 [facility] landfill gas collection operator ID [id number] 01/06/2021 [facility] 11:09 [facility] SERVICES HN LAB POC Test 01/06/2021 [facility] COMMENT performed by 11:09 [facility] (GLUCOSE) Nuclear LABORATORY Medicine SERVICES Specimen Anatomical Collection Method Collection Time Receive d Time (Source) Location / / Volume Laterality Blood CAPILLARY BLOOD / 01/06/2021 10:55 2020 Unknown EST 11:09 EST Provider Unknown MD POINT OF CARE TEST ORDERABLE S Performing Organization Address City/State/ZIP Code Phon e Number [facility] [address] [place] [address] SERVICES documented in this encounter Visit Diagnoses Diagnosis Malignant neoplasm of unspecified kidney , except renal pelvis (HCC-CMS) (HCC) documented in this encounter Administered Medications Inactive Administered Medications - up to 3 most recent administrations Medication Order MAR Action Action Date Dose Rate Site fludeoxyglucose (F-18) FDG Given 01/06/2021 11:02 15 millicuries Left ACF injection 15 millicurie EST 15 millicurie, radiopharm IV, NOW X1, 1 dose, On Mon01/06/21 at 1145, Routine, Imaging Protocol Orders documented in this encounter Orders Medications Ordered That Might Not Have Count Last Ord ered Date First Ordered Date Been Administered fludeoxyglucose (F-18) FDG injection 15 1 01/06/20 21 millicurie documented in this encounter Care Teams It Disaster Recovery Manager Relationship Specialty Start Date End Date Marine Price FNP PCP - General Neurological Surgery 10/29/19 [address] [place] [address] documented as of this encounter
--- OUTSIDE RECORDS SUMMARY | 2022-10-07 18:46 | XMS_ITS | Encounter Summary ---
:1955 Author Organization [facility] Address [address] [place] [address] Care Team Providers Name Role Phone Marine Price RESIDENTIAL SOLAR SALES CONSULTANT Primary Care Provider Encounter Details Date Type Department Care Team Description 12/25/2020 Lab Requisition [facility] Gibson Renner MD Gross hematuria Pathology & Laboratory [address] [place] [address] [address] [place] [address] [place], [place] [id number] [phone] Social History Tobacco Use Types Packs/Day Years [...] Priority Date/Time Associated Diagnosis Comme nts NON REINFORCING STEEL MACHINE OPERATOR/FNA Today 12/25/2020 8:52 EST Results for this CYTOLOGY procedure are i n the results section. documented in this encounter Results NON REINFORCING STEEL MACHINE OPERATOR/FNA CYTOLOGY (12/25/2020 8:52 EST) Component Value Ref Test Analysis Performed At [facility] Range Method Time Signature Final A. URINE, VOIDED, CYTOLOGIC EVALUATION: 12/29/[address] [facility] Diagnosis - High-Grade urothelial carc inoma with superimposed abundant degenerative changes 17:50 EST CENTER LABORATORY B. URINE, BARBOTAGE, RIGHT RENAL PELVIS, CYTOLOGIC EVALUATIO N: SERVICES - High-Grade urothelial carc inoma with superimposed abundant degenerative changes Diagnosis Slitter Scorer slides of thi s case were reviewed at the intradepartmental consultation conference. 12/29/[address] [facility] Comment 17:50 [facility] SERVICES Attestation By the signature below, the attending physician certifies that they have personally conducted a gross and/or microscopic 0 12/29/[address] [facility] Electronically examination of the described specimens and rendered or confirmed the above diagnosis. 17:50 [facility] signed by LABORATORY Rosemarie Araiza SERVICES MD on 2020 at 1750 Clinical Kyle hematuria; 12/29/[address] [facility] MED[facility] History R31.0 17:50 [facility] SERVICES Gross A. 12/29/[address] [facility] MED[facility] Description 100cc's of clear yellow flui d were received and processed by selective cellular enhancement technique. 17:50 [facility]ORY SERVICES B. 50cc's of opaque red fluid w ere received and processed by selective cellular enhancement technique. Performing [facility] 12/29/[address] [facility] MED[facility] AL Lab 17:50 [facility] SERVICES Scanned 12/29/[address] [facility] Images 17:50 [facility] SERVICES Specimen Anatomical Collection Method Collection Time Receive d Time (Source) Location / / Volume Laterality ZZUNK WASH / Unknown 12/25/2020 8:52 12/28/2020 6:35 EST EST ZZUNK WASH / Unknown 12/25/2020 8:52 12/28/2020 6:35 EST EST Doyle Renner MD PATHOLOGY ORDERABLES Performing Organization Address City/State/ZIP Code Phon e Number [facility] [address] [place] [address] SERVICES documented in this encounter Visit Diagnoses Diagnosis Gross hematuria documented in this encounter Care Teams Pediatric Psychologist Relationship Specialty Start Date End Date Marine Price FNP PCP - General Neurological Surgery 10/29/[address] [place] [address] documented as of this encounter
--- OUTSIDE RECORDS SUMMARY | 2022-10-07 18:46 | XMS_ITS | Encounter Summary ---
:1955 Author Organization [facility] Address [address] [place] [address] Care Team Providers Name Role Phone Marine Price Primary Care Provider [phone] Reason for Visit (Routine) - Receiving Office to Obtain Authorization Specialty Diagnoses / Procedures Referred By Contact Refer red To Contact Procedures Unknown, Provider, MD [place] OUTSIDE IMAGES Referral ID Status Reason Start Expiration Visits Visits Date Date Requested Authorized [id number] Receiving Office 01/04/2021 1 1 to Obtain Authorization Encounter Details Date Type Department Care Team Description 12/25/2020 Hospital Encounter [facility] Secondary Reads [place] Social History Tobacco Use Types Packs/Day Years [...] mg by mouth 0 01/13/2021 tablet daily. lamoTRIgine (LAMICTAL) Take 100 mg by mouth [...] Name Priority Date/Time Associated Diagnosis Comme nts [place] OUTSIDE IMAGES Routine 01/04/2021 18:52 Result s for this EST procedure are i n the results section. documented in this encounter Results [place] OUTSIDE IMAGES (01/04/2021 18:52 EST) Specimen (Source) Anatomical Location Collection Method / Collectio n Time Received Time / Laterality Volume Narrative 01/04/2021 18:52 EST This is a non-reportable exam. Provider Unknown MD [facility] OTHER IMAGING ORDERABLES documented in this encounter Visit Diagnoses Not on filedocumented in this encounter Care Teams Window Glass Installer Relationship Specialty Start Date End Date Marine Price FNP PCP - General Neurological Surgery 10/29/19 [address] [place] [address] documented as of this encounter
--- OUTSIDE RECORDS SUMMARY | 2022-10-07 18:46 | XMS_ITS | Encounter Summary ---
:[address] [facility] Address [address] [place] [address] Care Team Providers Name Role Phone Marine Price PERIPHERAL EQUIPMENT OPERATOR Primary Care Provider [phone] Reason for Referral Laboratory Services (Routine) - New Request Specialty Diagnoses / Procedures Referred By Contact Refer red To Contact Diagnoses CKD (chronic kidney disease), stage II Other proteinuria Sweetie Burrell MD Procedures URINE CHEMICAL (DIP) & SEDIMENT (MICRO) WITHOUT REFLEX TO CULTURE 1 [facility], [address] [place] [address] Referral ID Status Reason Start Date Expiration Date Visits V isits Requested Authorized [id number] New Request 01/11/2021 1 1 Reason for Visit Reason Onset Date Comments Hypertension 01/11/2021 Encounter Details Date Type Department Care Team Description 01/11/2021 Orders Only [facility] Kendra [place], CKD ( chronic kidney disease), stage II (Primary Dx); Nephrology - S Prosp ect RN Albuminuria; 1 [facility] [place] [address] Social History Tobacco Use Types [...] documented as of this encounter Progress Notes Kendra [place] RN - 01/11/2021 1002 EST Patient calling very upset about the lack of communication between her doctors at [facility] and Dr. Burrell. States she was seen in the ER at [facility] for high blood pressure and was put back on Amlodipine 5 mg daily for hypertension. She now has foot and ankle swelling. Dr. Burrell took her off this medication before and she doesn't think Dr. Burrell will want her on it now. She is on Celecoxib short term for pain from her cancer and has been started on tresiba for her diabetes. Her BP last night [id number]. She has not taken her weight at home but feels she has fluid on. She wants to make sure thatDr. Burrell gets and responds to this note. Lab orders placed per last Nephrology note. Will have MA fax to [facility]. Patient needs follow up appointment. Kendra [place] RN - 01/11/2021 1002 EST Images from the original note were not included. Sweetie Burrell MD You; Nephrology Nurse Pool; Rayna Mckeon MA; Nephrology Pss Tripp When I saw her in June (07/27) this is what she was taking and I made no changes: Losartan 100, Spironolactone 12.5, Amlodipine 5 mg (her PCP had added back the amlodipine that I had her stop in December 2019; he did this sometime between December 2019 and May 2020 that I stopped in December last year). Her blood pressures have always been labile based on stress. I did communicate with her urologist and he filled me in on everything. She was supposed to see me 6 months from 07/27 but it does not seem that an appointment was ever made. She can be put into my [place] [facility] on February 01 at 3:00 or March 29 in any open spot. Or she can be put int my [facility] clinic if a sooner appointment is available. I agree with getting the labs done. And re: Celebrex, it is not recommended given her CKDII with proteinuria but if it is needed in the short term, I would say use it unless we start to see a rise in creatinine. Kendra [place] RN - 01/11/2021 1002 EST Images from the original note were not included. Fermin Walker Alison F, MD Pt declined January apt said that she needs to talk with you now. Said that messages don't ever seem to get a crossed she is having blood pressure issues now and needs her mediations changed January is unacceptable but this week would be best. Kendra [place] RN - 01/11/2021 1002 EST Phone call to patient. She states she has had lab work drawn each week for the last three weeks lastdone on 01/08/2021. Phone call to [facility] lab they will fax the lab results to us. Phone call to [facility] HIM.They will fax the ER and admission record to us. Will let Dr. Burrell know when all the information is gathered. Kendra [place] RN - 01/11/2021 1002 EST Notes and lab work from [facility] received and scanned in to chart. Will let Dr. Burrell know. documented in this encounter Plan of Treatment Scheduled Orders Name Type Priority Associated Diagnoses Order S chedule URINE CHEMICAL (DIP) & Lab Routine CKD (chronic kidne y Ordered: 01/11/2021 SEDIMENT (MICRO) WITHOUT disease ), stage II REFLEX TO CULTURE Other proteinuria documented as of this encounter Visit Diagnoses Diagnosis CKD (chronic kidney disease), stage II - Primary Chronic kidney disease, Stage II (mild) Albuminuria Proteinuria Other proteinuria documented in this encounter Discontinued Medications Medication Sig Discontinue Reason Start Date End Date naproxen (NAPROSYN) Take 500 mg by Discontinued by another 01/11/2021 500 mg tablet mouth as needed. clinician metFORMIN (GLUCOPHAGE) Take 1,000 mg by Discontinued by another 01/11/2021 1,000 mg tablet mouth 2 times clinician daily. documented as of this encounter Care Teams Inside Sales Recruiter Relationship Specialty Start Date End Date Marine Price FNP PCP - General Neurological Surgery 10/29/19 [address] [place] [address] documented as of this encounter
--- OUTSIDE RECORDS SUMMARY | 2022-10-07 18:47 | XMS_ITS | Encounter Summary ---
:1955 Author Organization [facility] Address [address] [place] [address] Care Team Providers Name Role Phone Marine Price EMMANUEL Primary Care Provider [phone] Reason for Visit Reason Onset Date Comments Other 06/22/2020 Encounter Details Date Type Department Care Team Description 06/22/2020 Telephone [facility] Bernarda Orozco, RN Other Nephrology - S Prosp ect [id number] [place] [id number] Social History Tobacco Use Types Packs/Day Years Used Date Smoking Tobacco: Every Day Cigarettes 1 Smokeless Tobacco: Never Alcohol Use Standard Drinks/Week Comments No 0 (1 standard drink = 0.6 oz pure alcoho l) Sex Assigned at Date Recorded Not on file documented as of this encounter Miscellaneous Notes Telephone Encounter - Bernarda Orozco RN - 06/22/2020 1305 EDT Lab orders placed in mail Telephone Encounter - Bernarda Orozco RN - 06/22/2020 1139 EDT ----- Message from Sweetie Burrell MD sent at 06/22/2020 9:58 EDT ----- Please mail her the lab slips in addition to the AVS documented in this encounter Plan of Treatment Not on filedocumented as of this encounter Visit Diagnoses Not on filedocumented in this encounter Care Teams Power Shovel Engineer Relationship Specialty Start Date End Date Marine Price FNP PCP - General Neurological Surgery 10/29/19 [address] [place] [address] documented as of this encounter
--- OUTSIDE RECORDS SUMMARY | 2022-10-07 18:47 | XMS_ITS | Encounter Summary ---
:1955 Author Organization [facility] Address [address] [place] [address] Care Team Providers Name Role Phone Marine Price EMMANUEL Primary Care Provider [phone] Reason for Visit Reason Onset Date Comments Patient Information Update 01/10/2020 Encounter Details Date Type Department Care Team Description 01/10/2020 Telephone [facility] Sweetie Burrellnt Information Nephrology - Farhat Miguel MD Update [address] [address] [facility], [place] [address] (Wo rk) Social History Tobacco Use Types Packs/Day Years Used Date Smoking Tobacco: Every Day Cigarettes 1 Smokeless Tobacco: Never Alcohol Use Standard Drinks/Week Comments No 0 (1 standard drink = 0.6 oz pure alcoho l) Sex Assigned at Date Recorded Not on file documented as of this encounter Miscellaneous Notes Telephone Encounter - Kendra [place] RN - 01/10/2020 9165 EST Phone call to Nancy. Relayed message from Dr. Burrell.spent a long time discussing her CKD II diagnosis which she was surprised to see on her AVS. She knew she had protein in her urine but did not equate that with the diagnosis of chronic kidney disease. Discussed what is within her control to help maintain her current kidney function: maintain blood sugar and blood pressure control, exe rcise, healthy diet. She states she has already quit smoking. Patient's mood was much improved aftertalking. Patient voices understanding that she is to get labs drawn two weeks after starting the spironolactone. Lab orders in [facility] Telephone Encounter - Sweetie Burrell MD - 01/10/2020 0229 EST Please call Ms. Lopez to let her know that the special labs I sent out were normal/negative and thatI do think that the protein in her urine is most likely due to her diabetes. No further workup is needed at this time. Please remind her to have labs done 2 weeks after she started the spironolactone, and that she should remember to have labs done before she comes to see me in May. I just placed an order for a nephrology profile and a urine protein to creatinine ratio and I routed them to [facility] but they may need to be faxed separately. Please let me know if she has any questions. documented in this encounter Plan of Treatment Not on filedocumented as of this encounter Visit Diagnoses Not on filedocumented in this encounter Care Teams Sheet Metal Lay Out Worker Relationship Specialty Start Date End Date Marine Price FNP PCP - General Neurological Surgery 10/29/19 [address] [place] [address] documented as of this encounter
--- OUTSIDE RECORDS SUMMARY | 2022-10-07 18:47 | XMS_ITS | Encounter Summary ---
:[address] [facility] Address [address] [place] [address] Care Team Providers Name Role Phone Marine Price EMMANUEL Primary Care Provider [phone] Reason for Visit Reason Onset Date Comments Other 01/02/2020 Encounter Details Date Type Department Care Team Description 01/02/[address] [facility] Enedina Burrell MD Other Nephrology - S Prosp ect 1 [facility] 1 [facility], [address] [place] [address] [place] [address] (Wo rk) Social History Tobacco Use Types Packs/Day Years Used Date Smoking Tobacco: Every Day Cigarettes 1 Smokeless Tobacco: Never Alcohol Use Standard Drinks/Week Comments No 0 (1 standard drink = 0.6 oz pure alcoho l) Sex Assigned at Date Recorded Not on file documented as of this encounter Miscellaneous Notes Telephone Encounter - Selena Plata - 01/02/2020 1046 EST Pt calling with concerns about the scale at [facility]. About 2-3 weeks ago the pt was weighed at her PCP office and came in at 206lbs. At her appt on 2 she was weighed at 190lbs. She weighed herself again today and was back up to 206lbs. She is concerned that the scale at [facility] is off by 16lbs. Contacted Abby at [facility] and informed her of the pt's concerns. documented in this encounter Plan of Treatment Not on filedocumented as of this encounter Visit Diagnoses Not on filedocumented in this encounter Care Teams Library Director Relationship Specialty Start Date End Date Marine Price FNP PCP - General Neurological Surgery 10/29/19 [address] [place] [address] documented as of this encounter
--- OUTSIDE RECORDS SUMMARY | 2022-10-07 18:47 | XMS_ITS | Encounter Summary ---
:1955 Author Organization [facility] Address [address] [place] [address] Care Team Providers Name Role Phone Marine Price PATROL JUDGE Primary Care Provider [phone] Encounter Details Date Type Department Care Team Description 03/27/2020 Lab Requisition [facility] Outr Resulting Lab, Pathology & Laboratory Provider [facility] [address] [place], [place] [id number] Social History Tobacco Use Types Packs/Day Years [...] Date/Time Associated Diagnosis Comme nts COVID-19 TEST [facility] Today 03/27/2020 14:55 LAB PCR EDT COVID-19 TESTING Routine 03/27/2020 14:55 Results for this EDT procedure are i n the results section. documented in this encounter Results [facility]19 TEST [facility] (03/27/2020 14:55 EDT) Specimen Anatomical Location Collection Method Collection Time Received Time (Source) / Laterality / Volume Swab ENTIRE NASOPHARYNX 03/27/2020 14:55 03/27 / Unknown EDT 20:50 EDT Provider Outr Resulting Lab MICROBIOLOGY - GENERAL ORD ERABLES Performing Organization Address City/State/ZIP Code Phon e Number [facility] [address] [place] [address] SERVICES COVID-19 TESTING (03/27/2020 14:55 EDT) Analysis Performed At Patho logist Time Signature COVID-19 Negative Negative 03/28/2020 [facility] rt-PCR Result 7:46 EDT [facility] Comment: Negative results do not preclude 2019-nC oV infection and should not be used as the sole basis for treatment or other patient management decisions. Negative results must be combined with clinical observa tions, patient history, and epidemiologi ava information. This test has not been FDA cleared [...] the authorization is terminated or revoked sooner. Performed on the [employer] Fusion instrument Performing Lab [facility] 03/28/2020 7:46 EDT [facility] SERVICES Specimen Anatomical Location Collection Method Collection Time Received Time (Source) / Laterality / Volume Swab ENTIRE NASOPHARYNX 03/27/2020 14:55 03/27 / Unknown EDT 20:50 EDT Provider Outr Resulting Lab MICROBIOLOGY - GENERAL ORD ERABLES Performing Organization Address City/State/ZIP Code Phon e Number [facility] [address] [place] [address] SERVICES documented in this encounter Visit Diagnoses Not on filedocumented in this encounter Care Teams Health Insurance Assessor Relationship Specialty Start Date End Date Marine Price FNP PCP - General Neurological Surgery 10/29/19 [address] [place], [place] [address] documented as of this encounter
--- OUTSIDE RECORDS SUMMARY | 2022-10-07 18:47 | XMS_ITS | Encounter Summary ---
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 Diabetes mellitus due to underlying condition with stage 2 chronic kidney disease, with long-term current use of insulin ([facility]) URINE SEDIMENT Routine 12/30/2019 14:52 Results f or this (MICRO) WITHOUT EST procedure ar e in REFLEX TO CULTURE the result s section. SERUM FREE LIGHT Routine 12/30/2019 14:52 Albuminuria Results for this CHAINS EST CKD (chronic kidney procedur e are in disease), stage II the results Other proteinuria section. NEPHROLOGY PROFILE Routine 12/30/2019 14:52 Albuminuria Results for this (INCLUDES BUN, EST CKD (chronic kidney proced ure are in CREATININE, disease), stage II the results CALCULATED GFR, Other proteinuria section . ELECTROLYTES, CALCIUM, PHOSPHORUS, ALBUMIN) URINE Routine 12/30/2019 14:52 Albuminuria [id number] EST CKD (chronic kidney E RATIO (ACR) disease), stage II Other proteinuri a Diabetes mellitus due to underlying condition with stage 2 chronic kidney disease, with long-term current use of insulin ([facility]) URINE CHEMICAL (DIP) Routine 12/30/2019 14:52 Res ults for this & SEDIMENT (MICRO) EST procedure are in WITHOUT REFLEX TO the result s CULTURE section. COMPLETE BLOOD COUNT Routine 12/30/2019 14:52 Res ults for this EST procedure are i n the results section. documented in this encounter Results PROTEIN/CREATININE RATIO, URINE (12/30/2019 14:52 EST) athologist Signature Protein, Total, p [facility] Ur Random, HOSPITAL LAB External Creatinine, Ur [facility], HOSPITAL LAB External UPRO mg/mg Cr, [facility] HOSPITAL LAB Specimen (Source) Anatomical Collection Method Collection Time Re ceived Time Location / / Volume Laterality Urine 12/30/2019 14:52 EST Sweetie Burrell MD URINALYSIS ORDERABLES Performing Organization Address City/[facility]/ZIP Code Phon e Number [facility] SERUM FREE LIGHT CHAINS (12/30/2019 14:52 EST) athologist Signature Lambda Free Lt 1.03 [facility] Leaf Free Lt 1.99 [facility] Leaf/Lambda 1.93 [facility] LAB Specimen (Source) Anatomical Collection Method Collection Time Re ceived Time Location / / Volume Laterality Blood VENOUS BLOOD / 12/30/2019 14:52 Unknown EST Sweetie Burrell MD CHEMISTRY & BLOOD GAS ORDERA BLES Performing Organization Address City/State/ZIP Code Phon e Number [facility] URINE SEDIMENT ANALYSIS (MICROSCOPIC ONLY) (12/30/2019 14:52 EST) athologist Signature UA Comment, [facility] External HOSPITAL LAB UA Comment, [facility] HOSPITAL LAB Squam Epithel, [facility] UA, External HOSPITAL LAB WBC UA, [facility] HOSPITAL LAB Renal [facility] Epithelial, HOSPITAL LAB External Bacteria, [facility] Mucus, UA, not seen [facility] Casts, [facility] Crystals, [facility] RBC UA, [facility] LAB Specimen (Source) Anatomical Collection Method Collection Time Re ceived Time Location / / Volume Laterality Urine URINE SPECIMEN 12/30/2019 14:52 COLLECTION, CLEAN EST CATCH / Unknown Historical Provider MD URINALYSIS ORDERABLES Performing Organization Address City/State/ZIP Code Phon e Number [facility] UA, CHEMICAL AND SEDIMENT ANALYSIS (DIPSTICK AND MICROSCOPIC) (12/30/2019 14:52 EST) Analysis Performed At Patho logist Time Signature Protein UA, 2+ [facility] pH UA, External 5.5 [facility] UA Comment, [facility] LAB Specific Orick, 1.020 [facility] Y Urine, External HOSPITAL LAB Squam Epithel, [facility] UA, [facility] HOSPITAL LAB Glucose UA, 4+ [facility] WBC UA, External 3-5 [facility] Blood UA, Tr [facility] Bilirubin UA, neg [facility] Nitrite UA, neg [facility] Leukocyte neg [facility] Esterase UA, HOSPITAL LAB External Clarity UA, [facility] LAB Renal Epithelial, rare [facility] LAB Bacteria, few [facility] Mucus, UA, none [facility] Ketones UA, neg [facility] Casts, External [facility] Color UA, yellow [facility] Crystals, [facility] RBC UA, External 0-2 [facility] Urobilinogen UA, nl [facility] LAB Specimen (Source) Anatomical Collection Method Collection Time Re ceived Time Location / / Volume Laterality Urine URINE SPECIMEN 12/30/2019 14:52 COLLECTION, CLEAN EST CATCH / Unknown Historical Provider MD URINALYSIS ORDERABLES Performing Organization Address City/State/ZIP Code Phon e Number [facility] COMPLETE BLOOD COUNT (12/30/2019 14:52 EST) P athologist Signature HCT, External 46.4 [facility] MCH, External 28.8 [facility] MCV, External 90.3 [facility] MCHC, External 31.9 [facility] Hemoglobin, 14.8 [facility] WBC, External 15.0 [facility] RBC, External 5.14 [facility] PLT, External 33.8 [facility] RDW-CV, 12.8 [facility] LAB Specimen (Source) Anatomical Collection Method Collection Time Re ceived Time Location / / Volume Laterality Blood VENOUS BLOOD / 12/30/2019 14:52 Unknown EST Historical Provider HEMATOLOGY & PF4 ORDERABLES Performing Organization Address City/State/ZIP Code Phon e Number [facility] NEPHROLOGY PROFILE (INCLUDES BUN, CREATININE, CALCULATED GFR, ELECTROLYTES, CALCIUM, PHOSPHORUS, ALBUMIN) (12/30/2019 14:52 EST) athologist Signature Phosphorus, 3.8 [facility] Albumin, 4.0 [facility] BUN, External 21 [facility] Chloride, 102 [facility] Creatinine, 0.60 [facility] Potassium, 4.4 [facility] GFR, 100 [facility] Calculated, HOSPITAL LAB External Calculated [facility] Calcium, HOSPITAL LAB External Calcium, 9.9 [facility] Sodium, 136 [facility] CO2, External 24.0 [facility] Specimen (Source) Anatomical Collection Method Collection Time Re ceived Time Location / / Volume Laterality Blood VENOUS BLOOD / 12/30/2019 14:52 Unknown EST Sweetie Burrell MD PACKAGES & DNA PROBE ORDERAB LES Performing Organization Address City/State/ZIP Code Phon e Number [facility] ALBUMIN, URINE (12/30/2019 14:52 EST) athologist Signature Microalb ug/mg [facility] Microalb mg/dl, [facility] Creatinine, [facility] U HOSPITAL LAB (UCRR), External Specimen (Source) Anatomical Collection Method Collection Time Re ceived Time Location / / Volume Laterality Urine 12/30/2019 14:52 EST Sweetie Burrell MD CHEMISTRY & BLOOD GAS ORDERA BLES Performing Organization Address City/State/ZIP Code Phon e Number [facility] documented in this encounter Visit Diagnoses Diagnosis Albuminuria Proteinuria CKD (chronic kidney disease), stage II Chronic kidney disease, Stage II (mild) Other proteinuria Diabetes mellitus due to underlying cond ition with stage 2 chronic kidney disease, with long-term current use of insulin ([facility]) (HCC) documented in this encounter Orders Lab Orders Without Results Count Last Ordered Date Fir st Ordered Date CREATININE, URINE RANDOM 1 01/01/2020 PHOSPHOLIPASE A2 RECEPTOR ABS, S 1 01/01/2020 documented in this encounter Care Teams Senior Marketing Specialist Relationship Specialty Start Date End Date Marine Price FNP PCP - General Neurological Surgery 10/29/[address] [place] [id number] documented as of this encounter
--- OUTSIDE RECORDS SUMMARY | 2022-10-07 18:47 | XMS_ITS | Encounter Summary ---
:1955 Author Organization [facility] Address [address] [place] [address] Care Team Providers Name Role Phone Unavailable Primary Care Provider Unavailable Encounter Details Date Type Department Care Team Description 03/15/2005 Results Only [facility] - Russel Delaney MD conversion [address] [place] [id number] Social History Tobacco Use Types Packs/Day Years Used Date Smoking Tobacco: Never Assessed Sex Assigned at Date Recorded Not on file documented as of this encounter Plan of Treatment Not on filedocumented as of this encounter Procedures Procedure Name Priority Date/Time Associated Diagnosis Comme nts CYTOPATHOLOGY Routine 03/15/2005 0:00 EDT Results for this procedure are i n the results section . documented in this encounter Results CYTOPATHOLOGY (03/15/2005 0:00 EDT) Component Value Ref Test Analysis Performed At [facility] Method Time Signature Pathology CYTOPATHOLOGY REPORT RAMEZ Report: [facility] Reports generated via electronic interface contain original data; however they are lacking the format of the original report. Caution should be taken when reading/interpreting unformatte d reports. Name: ? NANCY RIVAS ? Accession #: ? [id number] : ? 1955 (Age: 49) ??F ?Collect Date: ? 03/15/2005 Location: ? [facility] ? Receive Date: ? 03/16/2005 Provider: ?RUSSEL MCKEON MD Copy to: ? Specimen/Source: ?ThinPrep Pap Test, Cervix/Endoce rvix Last Menstrual Period: ? 02/18/05 Other: ? HPVA - HPV testing requested if ASC-US on the current ThinPr ep Pap test. ? SPECIMEN ADEQUACY ? Satisfactory for Evaluation - transformation zone component present GENERAL CATEGORIZATION ? Negative for Intraepithelial Lesion or Malignancy ? Document reviewed and electronically signed by: ? Jorge Lezama, CT(ASCP) ? Report Date: ??03/22/2005 11:16 End of Report Specimen (Source) Anatomical Location Collection Method / Collectio n Time Received Time / Laterality Volume 03/15/2005 03/16/2005 Russel Mckeon MD PATHOLOGY ORDERABLES Performing Organization Address City/State/ZIP Code Phon e Number [facility] [address] [place] [address] [facility] [address] [place] [address] documented in this encounter Visit Diagnoses Not on filedocumented in this encounter
--- OUTSIDE RECORDS SUMMARY | 2022-10-07 18:47 | XMS_ITS | Encounter Summary ---
:1955 Author Organization [facility] Address [address] [place] [address] Care Team Providers Name Role Phone Marine Price Primary Care Provider [phone] Reason for Visit (Routine) - Receiving Office to Obtain Authorization Specialty Diagnoses / Procedures Referred By Contact Refer red To Contact Procedures Unknown, Provider, CT OUTSIDE IMAGES BODY Phone: Referral ID Status Reason Start Expiration Visits Visits Date Date Requested Authorized [id number] Receiving Office 01/04/2021 1 1 to Obtain Authorization Encounter Details Date Type Department Care Team Description 12/18/2020 Hospital Encounter [facility] Secondary Reads [place] Social History Tobacco Use [...] Name Priority Date/Time Associated Diagnosis Comme nts CT OUTSIDE IMAGES Routine 01/04/2021 18:50 Result s for this BODY EST procedure are i n the results section. documented in this encounter Results CT OUTSIDE IMAGES BODY (01/04/2021 18:50 EST) Specimen (Source) Anatomical Location Collection Method / Collectio n Time Received Time / Laterality Volume Narrative 01/04/2021 18:50 EST This is a non-reportable exam. Provider Unknown MD BURNS OTHER IMAGING ORDERABLES documented in this encounter Visit Diagnoses Not on filedocumented in this encounter Care Teams Drafting Layout Man Relationship Specialty Start Date End Date Marine Price FNP PCP - General Neurological Surgery 10/29/19 [address] [place] [address] documented as of this encounter
--- OUTSIDE RECORDS SUMMARY | 2022-10-07 18:47 | XMS_ITS | Encounter Summary ---
:1955 Author Organization [facility] Address [address] [place] [address] Care Team Providers Name Role Phone Nancy Reynaga MD Primary Care Provider Reason for Visit Reason Comments New Patient Visit Full skin exam Encounter Details Date Type Department Care Team Description 11/12/2014 Office Visit [facility] Gómez Winkler History of SCC (squamous cell carcinoma) of skin (Primary Dx); Dermatology - Chapin Tuttle MD Xanthelasma; [address] Epidermoid cyst; [address] SK (seborrheic keratosis) [place], [place] [id number] [place] [address] [address], [address] [place] [address] (Wo rk) Social History Tobacco Use Types Packs/Day Years Used Date Smoking Tobacco: Every Day Cigarettes 1 Smokeless Tobacco: Never Tobacco Cessation: Ready to Quit: Yes; C ounseling Given: Yes Alcohol Use Standard Drinks/Week Comments No 0 (1 standard drink = 0.6 oz pure alcoho l) Sex Assigned at Date Recorded Not on file documented as of this encounter Discharge Diagnoses Diagnosis 706.1 ACNE NEC[ICD-9-CM] 706.2 SEBACEOUS CYST[ICD-9-CM] V10.83 PERS HX SKIN MALIGNANCY NEC[ICD-9 -CM] 216.3 BENIGN GHAZALA SKIN FACE NEC[ICD-9-CM] documented in this encounter Patient Instructions Patient InstructionsElizabeth Ho MD - 11/12/2014 10:34 EST SUN PROTECTION AND SUN SCREENS Most of a person's lifetime sun exposure occurs before the age of 18!! Skin cancer can be prevented! Protect yourself and your child from the sun! Avoiding the sun is the best protection! IF YOUR CHILD IS GETTING A SUNTAN DESPITE USING SUNSCREEN, THEY ARE STILL GETTING TOO MUCH SUN! YOU WILL NEED TO USE COVER-UP CLOTHING AND KEEP THEM OUT OF THE SUN! Repeated and prolonged exposure to sunlight greatly increases your risk of all types of skin cancer.In addition, chronic sun exposure is the major cause of wrinkles, spotty, and unhealthy appearing skin. It???s important to have a healthy and active lifestyle and we encourage you to continue this. However, some common sense guidelines will help to keep your skin and eyes safe. ?? Avoid the hot mid-day sun. Try to schedule your outdoor activities for it project manager or early evening. ?? Make clothing a regular part of protection. Keep your shirt on - wear long sleeves and a wide brimmed hat. ?? Be especially careful when on the water, snow or sand as sunlight is reflected upwards from thesesurfaces. ?? Don???t forget your eyes and lips! Wear sunglasses- Sun exposure increases your risk for cataracts. Wear lip balm with an SPF. ?? Make sure your children practice good sun protection. Early sun damage increases their risk of developing skin cancer. ?? Wear a sunscreen. We recommend using a sunscreen with both UVA and UVB protection and a SPF of atleast 30. If you sunburn more easily or are in more intense sun, you will need a higher SPF. A ???waterproof?? sunscreen is usually good for about 2 hours, even if you???re swimming. A sunscreen should be reapplied every 2 hours and after swimming. Remember to put sunscreen on your ears and lips. There are many lip balms available with sunscreen. For more information about sun protection, skin cancer, and all skin topics, visit: www.skincancer.org and www.aad.org Sunscreens: Sunlight is made up of different wavelengths, some of which we can see as the various colors of therainbow, or ???visible?? light. UVA and UVB are invisible wavelengths, which penetrate into the skin and in excess amounts, cause injury. When the injury is severe, skin cells and become inflamed and we see sunburn. UVB causes sunburn more quickly than UVA and most sunscreens are targeted towardsthis wavelength. Tanning while wearing sunscreen may mean that primarily UVA light is reaching the skin. This is the same UVA light that is used in tanning beds and is responsible for causing wrinkles,brown spots and possibly melanoma. For this reason, we recommend that you don???t use tanning beds and that you use sunscreen with both UVA and UVB protection. Most sunscreen ingredients are good at blocking UVB light. The only ingredients that also do a goodjob blocking UVA light are listed below. Make sure your sunscreen contains one of these ingredients.CAUTION: in some people Parasol may cause staining of white clothing. ?? Parasol (avobenzone) ?? Zinc Oxide ?? Titanium Oxide Some recommended brands: ?? Blue Lizard ?? Coppertone ?? Neutrogena ?? Bull Frog Good ???everyday?? moisturizer for the face: ?? Tizo daily moisturizer with SPF ?? Mirza MIKE daily moisturizer with SPF ?? Oil of Olay Complete Sun Protection ?? Cetaphil daily facial moisturizer ?? Neutrogena daily facial moisturizer Recommended resources for sun protective clothing and hats: ?? www.[employer] ?? Www.RemoteReality ?? For sensitive skin, look for sunscreens that contain: Zinc Oxide & Titanium Oxide. These are often labeled baby or sensitive. documented in this encounter Progress Notes Elizabeth Ho MD - 11/12/2014 1033 EST DERMATOLOGY OUTPATIENT CLINIC NOTE Chief Complaint Patient presents with ??? New Patient Visit Full skin exam Dermatologic History: History of SCC, right upper arm, excised 2013 History of Present Illness: Ms. Lopez is a 59 y.o. female who presents for a skin check. She had an SCC excised by herregular doctor 6 weeks ago. The wound dehisced, and was left to heal by second intention. She notes continued redness and scaling. She is also concerned about cysts behind the ears that drain and smell. She would like them removed. She is seeing Dr. Dukes for papules on the eyelids. She has an appointment for a biopsy later today. She states the papules have been present since young adulthood. The patient denies rapid growth, bleeding, pain, or pruritus. The patient denies other new or changing lesions, and has no other cutaneous concerns today. Please see this encounter in the electronic chart which I have personally reviewed for full medical,surgical, family, and social histories, review of systems, medications, and allergies. Objective: Physical Exam: The patient is an alert, pleasant, interactive 59 y.o.-year-old female sitting comfortably on the examination table. She has a fair skin phenotype. Complete cutaneous examination including the scalp, face, ears, neck, shoulders, axillae, upper extremities, hands, chest, abdomen, back, buttocks, lower extremities, feet, and nails is performed. Notable findings include the following: on the bilateral upper and lower eyelids, there are dozens of less than 1 cm skin colored flat-topped and pedunculated papules; Well healing scar on right upper arm; there are clusters of 3 to 5 mm cysts on the posterioraspect of each earlobe; There are 100s of 3-7 mm skin colored to dark brown waxy, stuck on appearingpapules scattered across the patient's trunk and extremities. Assessment Encounter Diagnoses Name Primary? History of SCC (squamous cell carcinoma) of skin Yes ??? Xanthelasma ??? Epidermoid cyst ??? SK (seborrheic keratosis) History of SCC, right upper arm, without evidence of local recurrence. Xanthelasma vs achrocordons vs verrucae on the patients eyelids. Epidermoid cysts on bilateral earlobes. SKs on trunk and extremities. Plan: Nancy was seen today for new patient visit. Diagnoses and associated orders for this visit: History of SCC (squamous cell carcinoma) of skin -Handouts on sun protection were provided to the patient -Reviewed the importance of sun avoidance, sun protection, and self skin examination for the prevention and early detection of skin cancer. ABCDE of melanoma was reviewed. The nature of skin cancers and photo-aging was discussed. Xanthelasma vs achrocordons vs verrucae -Managed by Dr. Katarzyna Dukes Epidermoid cyst -Patient reassured as to the benign nature of the lesion(s) -Offered appointment with surgeon to discuss removal. SK (seborrheic keratosis) -Patient reassured as to the benign nature of the lesion(s) The patient will follow up in one year, or sooner should any new problems or concerns arise. Elizabeth Ho MD 11/12/2014 10:50 Attestation Statement: I saw and examined the patient with the resident/fellow. I agree with the findings and plan of care documented in the resident's/fellow's note. GÓMEZ WINKLER MD 11/13/2014 9:17 cable installer repairer helper SherrieShelby shirley Nish - 11/12/2014 1021 EST Review of Systems Constitutional: Negative for fever, fatigue and unexpected weight change. HENT: Negative for mouth sores. Eyes: Negative for pain. Respiratory: Negative for cough and shortness of breath. Cardiovascular: Negative for chest pain and palpitations. Gastrointestinal: Negative for nausea, vomiting, abdominal pain, diarrhea, constipation and blood instool. Genitourinary: Negative for dysuria, frequency and hematuria. Musculoskeletal: Negative for myalgias, joint swelling, arthralgias and muscle stiffness in the morning. Skin: Negative for rash. Neurological: Negative for numbness and headaches. Endo/Heme/Allergies: Does not bruise/bleed easily. Psychiatric/Behavioral: Negative for sleep disturbance. The patient is not nervous/anxious. Elizabeth Ho MD 11/12/2014 10:33 documented in this encounter Plan of Treatment Not on filedocumented as of this encounter Visit Diagnoses Diagnosis History of SCC (squamous cell carcinoma) of skin - Primary Personal history of other malignant neop lasm of skin Xanthelasma Mixed hyperlipidemia Epidermoid cyst Sebaceous cyst SK (seborrheic keratosis) Other seborrheic keratosis documented in this encounter Historical Medications This list may reflect changes made after this encounter. Medication Sig Dispensed Refills Start Date End Date nystatin-triamcinolone Apply topically 2 0 (MYCOLOG II) cream times daily. losartan (COZAAR) 50 mg Take 100 mg by mouth 0 tablet daily. cholecalciferol, Take 1,000 Units by 0 Vitamin D3, 1,000 unit mouth daily. tablet blood glucose (ONE 1 Strip by [employer] 0 TOUCH ULTRA TEST) test (non-drug; combo strips route) route 3 times daily. metFORMIN (GLUCOPHAGE) Take 1,000 mg by mouth 0 01/11/2021 1,000 mg tablet 2 times daily. insulin lispro Inject 2-12 Units into 0 10/28/2019 (HUMALOG) 100 unit/mL the skin 3 times daily vial before meals. insulin glargine Inject 40 Units into 0 10/28/2019 (LANTUS SOLOSTAR) 100 the skin at bedtime. unit/mL (3 mL) injection pen amLODIPine (NORVASC) 5 Take 5 mg by mouth 0 12/30/2019 mg tablet daily. BUPROPION HCL Take by mouth. 0 019 (WELLBUTRIN ORAL) paroxetine (PAXIL) 40 Take 20 mg by mouth 0 10/28/2019 mg tablet daily. added in this encounter Care Teams Safe Deposit Attendant Relationship Specialty Start Date End Date Nancy Reynaga MD PCP - General 08/29/11 10/28/[address] [place] [address] [place] [address] documented as of this encounter
--- OUTSIDE RECORDS SUMMARY | 2022-10-07 18:47 | XMS_ITS | Encounter Summary ---
:1955 Author Organization [facility] Address [address] [place] [address] Care Team Providers Name Role Phone Marine Price Primary Care Provider [phone] Reason for Visit (Routine) - Receiving Office to Obtain Authorization Specialty Diagnoses / Procedures Referred By Contact Refer red To Contact Procedures Unknown, Provider, OUTSIDE IMAGES BODY Phone: Referral ID Status Reason Start Expiration Visits Visits Date Date Requested Authorized [id number] Receiving Office 01/04/2021 1 1 to Obtain Authorization Encounter Details Date Type Department Care Team Description 12/18/2020 Hospital Encounter [facility] Secondary Reads [place] Social History Tobacco Use [...] Name Priority Date/Time Associated Diagnosis Comme nts US OUTSIDE IMAGES Routine 01/04/2021 18:51 Result s for this BODY EST procedure are i n the results section. documented in this encounter Results US OUTSIDE IMAGES BODY (01/04/2021 18:51 EST) Specimen (Source) Anatomical Location Collection Method / Collectio n Time Received Time / Laterality Volume Narrative 01/04/2021 18:51 EST This is a non-reportable exam. Provider Unknown MD BURNS OTHER IMAGING ORDERABLES documented in this encounter Visit Diagnoses Not on filedocumented in this encounter Care Teams Deckhand Clam Dredge Relationship Specialty Start Date End Date Marine Price FNP PCP - General Neurological Surgery 10/29/19 [address] [place] [address] documented as of this encounter
--- OUTSIDE RECORDS SUMMARY | 2022-10-07 18:47 | XMS_ITS | Encounter Summary ---
:1955 Author Organization [facility] Address [address] [place] [address] Care Team Providers Name Role Phone Unavailable Primary Care Provider Unavailable Encounter Details Date Type Department Care Team Description 05/10/[address] [facility] - Nancy Yung MD [address] [place] [address] [place], [place] [id number] [phone] Social History Tobacco Use Types Packs/Day Years Used Date Smoking Tobacco: Never Assessed Sex Assigned at Date Recorded Not on file documented as of this encounter Plan of Treatment Not on filedocumented as of this encounter Procedures Procedure Name Priority Date/Time Associated Diagnosis Comme nts CYTOPATHOLOGY Routine 05/10/2007 0:00 EDT Results for this procedure are i n the results section . documented in this encounter Results CYTOPATHOLOGY (05/10/2007 0:00 EDT) Component Value Ref Test Analysis Performed At [facility] Method Time Signature Pathology CYTOPATHOLOGY REPORT [facility] Report: [facility] Reports generated via electronic interface contain original data; however they are lacking the format of the original report. Caution should be taken when reading/interpreting unformatte d reports. Name: ? NANCY RIVAS ? Accession #: ? [id number] : ? 1955 (Age: 52) ??F ?Collect Date: ? 05/10/2007 Location: ? [facility] ? Receive Date: ? 05/14/2007 Provider: ?NANCY VINCENT MD Copy to: ? Specimen/Source: ? ThinPrep Pap Test, Cervix/Endocervix, processed on [email or web address] ThinPrep Imaging System, with manual evaluation Last Menstrual Period: ? 04/27/07 Other: ? HPVA - HPV testing requested if ASC-US on the current ThinPr ep Pap test. ? SPECIMEN ADEQUACY ? Satisfactory for Evaluation - transformation zone component absent GENERAL CATEGORIZATION ? Negative for Intraepithelial Lesion or Malignancy ? Document reviewed and electronically signed by: ? SUKHDEV Arceo(ASCP) ? Report Date: ??05/18/2007 14:48 End of Report Specimen (Source) Anatomical Location Collection Method / Collectio n Time Received Time / Laterality Volume 05/10/2007 05/14/2007 Nancy Vincent MD PATHOLOGY ORDERABLES Performing Organization Address City/State/ZIP Code Phon e Number [facility] [address] [place] [address] SERVICES [facility] [address] [place] [address] documented in this encounter Visit Diagnoses Not on filedocumented in this encounter
--- OUTSIDE RECORDS SUMMARY | 2022-10-07 18:47 | XMS_ITS | Encounter Summary ---
:1955 Author Organization [facility] Address [address] [place] [address] Care Team Providers Name Role Phone Marine Price SWEET POTATO DISINTEGRATOR Primary Care Provider [phone] Encounter Details Date Type Department Care Team Description 07/28/2020 Abstract [facility] Enedina Burrell MD Nephrology - S Prosp ect 1 [facility] [address] [place] [address] [place] [address] (Wo rk) Social History Tobacco [...] Date/Time Associated Diagnosis Comme nts PROTEIN/CREATININE Routine 07/26/2020 16:54 Resul ts for this RATIO, URINE EDT procedure are i n the results section. URINE CHEMICAL Routine 07/26/2020 16:54 Results f or this (DIP) & SEDIMENT EDT procedure a re in (MICRO) WITHOUT the results REFLEX TO CULTURE section. documented in this encounter Results URINE CHEMICAL (DIP) & SEDIMENT (MICRO) WITHOUT REFLEX TO CULTURE (07/26/2020 16:54 EDT) [facility] Method Time Signature Protein UA, 2+ [facility] External HOSPITAL LAB pH UA, External 5.5 [facility]ITAL [facility] UA Comment, [facility] External HOSPITAL LAB Specific >=1.030 [place], Urine, HOSPITAL LAB External Squam Epithel, [facility] UA, External HOSPITAL LAB Glucose UA, neg [facility]ITAL LAB WBC UA, External 10-25 [facility] HOS[facility]ITAL LAB Blood UA, large [facility] Bilirubin UA, neg [facility]ITAL [facility] Nitrite UA, neg [facility] Leukocyte neg [facility] Esterase UA, HOSPITAL LAB External Clarity UA, cloudy [facility]ITAL LAB Renal [facility] Epithelial, HOSPITAL LAB External Bacteria, few [facility]ITAL [facility] Mucus, UA, none seen [facility] Ketones UA, neg [facility]ITAL [facility] Casts, External [facility] HOSPITAL LAB Color UA, yellow [facility]OS[facility]ITAL [facility] Crystals, [facility] RBC UA, External 25-50 [facility] Urobilinogen UA, normal [facility]OS[facility]ITAL LAB Specimen (Source) Anatomical Collection Method Collection Time Re ceived Time Location / / Volume Laterality Urine URINE SPECIMEN 07/26/2020 16:54 COLLECTION, CLEAN EDT CATCH / Unknown Historical Provider URINALYSIS ORDERABLES Performing Organization Address City/State/ZIP Code Phon e Number [facility] PROTEIN/CREATININE RATIO, URINE (07/26/2020 16:54 EDT) P athologist Signature Protein, Total, 282.0 [facility] Ur Random, HOSPITAL LAB External Creatinine, Ur 106 [facility], [facility] External UPRO mg/mg Cr, 2.67 [facility]ITAL [facility] Specimen (Source) Anatomical Collection Method Collection Time Re ceived Time Location / / Volume Laterality Urine URINE SPECIMEN 07/26/2020 16:54 COLLECTION, CLEAN EDT CATCH / Unknown Historical Provider URINALYSIS ORDERABLES Performing Organization Address City/State/ZIP Code Phon e Number [facility] documented in this encounter Visit Diagnoses Not on filedocumented in this encounter Care Teams Solar System Installer Relationship Specialty Start Date End Date Marine Price FNP PCP - General Neurological Surgery 10/29/19 [address] [place] [address] documented as of this encounter
--- OUTSIDE RECORDS SUMMARY | 2022-10-07 18:47 | XMS_ITS | Encounter Summary ---
:1955 Author Organization [facility] Address [address] [place] [address] Care Team Providers Name Role Phone Marine Price PROMOTIONS DIRECTOR Primary Care Provider [phone] Reason for Visit Reason Comments Proteinuria Encounter Details Date Type Department Care Team Description 12/30/2019 Office Visit [facility] Sweetie Burrell CKD (chronic kidney disease), stage II (Primary Dx); Nephrology - Farhat Miguel MD Diabetes mellitus due to underlying cond ition with stage 2 chronic kidney disease, with long-term current use of insulin ([facility]); 1 [facility] 1 [facility] Other p roteinuria; Street [place] Hy[place]ension, [place] [address] Rehab, [place] [address] (Wo rk) Social History [...] Sign Reading Time Taken Comments Blood Pressure 139/76 12/30/2019 1354 EST Pulse 108 12/30/2019 1354 EST Temperature - - Respiratory Rate - - Oxygen Saturation - - Inhaled Oxygen Concentration - - Weight 86.2 kg (190 lb 0.6 oz) 12/30/2019 1354 EST Height - - Body Mass Index - - documented in this encounter Patient Instructions Patient InstructionsSweetie Burrell MD - 12/30/2019 13:30 EST Labs today Stop taking amlodipine Start taking spironolactone 12.5 mg daily. Please have labs checked about 2 weeks after you start this medication. There is risk for increased levels of potassium. Return to clinic in 4-5 months and remember to have labs done a few days before your appointment. I will place a lab order in the [facility] lab so that it should be waiting for you at thattime. You will be contacted by the patient coordinator front desk in [place] to schedule this appointment. Please do not hesitate to call me with any questions. documented in this encounter Ordered Prescriptions Prescription Sig Dispensed Refills Start Date End Date spironolactone (ALDACTONE) Take 0.5 Tabs by 45 Tab 3 01/2020 25 mg tabletIndications: mouth daily. hypertension documented in this encounter Progress Notes Sweetie Burrell MD - 12/30/2019 1330 EST Images from the original note were not included. Nephrology Clinic Progress Note Date of Service: 01/10/2020 Chief Complaint Patient presents with ??? Proteinuria Subjective: Ms. Lopez returns to clinic in follow up for her proteinuria. Since her last visit, she has been doing well with no significant changes to her health other than hip pain for which she has received a steroid injection. Home blood pressures 130/80 mostly and then increased to 180-190/80-90, and now after steroid injection in the hip, the blood pressure is now improved into the 130s-140s/80s. Has been taking Aleve. Review of Systems Review of Systems Constitutional: Negative. Respiratory: Negative. Cardiovascular: Negative. Gastrointestinal: Negative. Genitourinary: Negative. Musculoskeletal: Positive for joint pain and myalgias. Chronic Skin: Negative. Neurological: Negative. Active Problem List: Patient Active Problem List Diagnosis ??? Other proteinuria ??? Albuminuria ??? Diabetes mellitus due to underlying condition with stage 2 chronic kidney disease, with long-term current use of insulin ([facility]) ??? CKD (chronic kidney disease), stage II ??? PTSD (post-traumatic stress disorder) ??? Bladder incontinence ??? Depression Current Outpatient Medications on File Prior to Visit Medication Sig Dispense Refill ??? blood glucose (ONE TOUCH ULTRA TEST) test strips 1 Strip by misc (non-drug; combo route) route 3times daily. ??? cholecalciferol, Vitamin D3, 1,000 unit tablet Take 1,000 Units by mouth daily. ??? insulin degludec (TRESIBA FLEXTOUCH U-100) 100 unit/ml (3ml) insulin pen Inject 35 Units into the skin every evening. ??? lamoTRIgine (LAMICTAL) 100 mg tablet Take 100 mg by mouth daily. ??? liraglutide (VICTOZA 3-ARIAN) 0.6 mg/0.1 mL (18 mg/3 mL) injectable pen Inject 1.8 mg into the skin daily. ??? losartan (COZAAR) 50 mg tablet Take 100 mg by mouth daily. ??? metFORMIN (GLUCOPHAGE) 1,000 mg tablet Take 1,000 mg by mouth 2 times daily. ??? naproxen (NAPROSYN) 500 mg tablet Take 500 mg by mouth as needed. ??? nystatin-triamcinolone (MYCOLOG II) cream Apply topically 2 times daily. ??? polyethylene glycol 3350 (MIRALAX) 17 gram packet Take 17 g by mouth daily. No current facility-administered medications on file prior to visit. Allergies Allergies Allergen Reactions ??? Lisinopril Cough ??? Loratadine Palpitations hyper ??? Mgcyfdm-Hmo-Yka Reductase Inhibitors Other (See Comments) Leg cramps ??? Sulfa (Sulfonamide Antibiotics) Rash Objective: BP 139/76 Pulse (!) 108 Wt 86.2 kg (190 lb 0.6 oz) Gen: alert, cooperative woman in no distress Eyes: conjunctivae/sclera clear Mouth/throat: MMM CV: RRR, nml S1/S2, no murmurs/rubs/gallops appreciated Resp: CTA b/l, no wheezes/rales/rhonchi Extr: no peripheral edema, atraumatic Neuro: grossly normal with no tremor or asterixis Mental status: appropriate Skin: exposed skin is warm and dry with no obvious rash or lesion Previous Labs: Urinalysis No results found for this visit on 12/30/19. No results found for: CREATININE, CALCGFR Lab Results Component Value Date MICRALBCRRAT 1,180.3 01/08/2019 CREATURNEXT 63 01/08/2019 Lab Results Component Value Date PTH 28 12/30/2019 No results found for: WBC, HGB, PLT, IRON, TIBC, FERRITIN Phospholipase A2 receptor antibody - negative Assessment: 64 y.o. woman with significant proteinuria and normal kidney function in the setting of known insulin dependent diabetes mellitus. Workup negative for multiple myeloma and primary membranous nephropathy. While she may have FSGS or some other basement membrane abnormality, it would not change treatmentat this time so no further workup is indicated at this time. It is reassuring that her serum albuminis normal, that she does not have anemia, and that she has no other lab abnormalities. Plan: - Labs today (see results above) - Discontinue amlodipine - Start spironolactone 12.5 mg daily with labs 2 weeks after starting to watch for hyperkalemia - Ongoing home blood pressure monitoring - Limit NSAIDs - Optimal control of diabetes Follow-up in 4-5 months Labs to be ordered prior to next visit: nephrology profile, urine protein to creatinine ratio Visit Diagnoses: 1. CKD (chronic kidney disease), stage II 2. Diabetes mellitus due to underlying condition with stage 2 chronic kidney disease, with long-termcurrent use of insulin ([facility]) 3. Other proteinuria 4. Hypertension, unspecified type Sweetie Burrell MD 01/10/20 documented in this encounter Plan of Treatment Not on filedocumented as of this encounter Visit Diagnoses Diagnosis CKD (chronic kidney disease), stage II - Primary Chronic kidney disease, Stage II (mild) Diabetes mellitus due to underlying cond ition with stage 2 chronic kidney disease, with long-term current use of insulin ([facility]) ([facility]) Other proteinuria Hypertension, unspecified type documented in this encounter Discontinued Medications Medication Sig Discontinue Reason Start Date End Date amLODIPine (NORVASC) 5 mg Take 5 mg by mouth Alternate therapy 12/30/2019 tablet daily. documented as of this encounter Care Teams Manager Infusion Relationship Specialty Start Date End Date Marine Price FNP PCP - General Neurological Surgery 10/29/[address] [place] [id number] documented as of this encounter
--- OUTSIDE RECORDS SUMMARY | 2022-10-07 18:47 | XMS_ITS | Encounter Summary ---
:1955 Author Organization [facility] Address [address] [place] [address] Care Team Providers Name Role Phone Nancy Vincent MD Primary Care Provider Encounter Details Date Type Department Care Team Description 09/25/2014 Results Only [facility]- DOLORES Stephany Avila Nish, DO [phone] [facility] [place] [address] (Wo rk) Social History Tobacco Use Types Packs/Day Years Used Date Smoking Tobacco: Never Assessed Sex Assigned at Date Recorded Not on file documented as of this encounter Plan of Treatment Not on filedocumented as of this encounter Procedures Procedure Name Priority Date/Time Associated Diagnosis Comme [facility] SURGICAL PATHOLOGY Routine 09/25/2014 9:14 EDT Re sults for this procedure are i n the results section. documented in this encounter Results SURGICAL PATHOLOGY (09/25/2014 9:14 EDT) Component Value Ref Test Analysis Performed At [facility] Method Time Signature Pathology SURGICAL PATHOLOGY REPORT [facility] Report: Reports generated via electronic interface [facility]; CENTER however they are lacking the format of the original report. LABORATORY Caution should be taken when reading/interpreting unformat sobia reports. SERVICES Name: ? NANCY RIVAS ? Accession #: ? [id number] ? : ? 1955 (Age: 59) ??F ? Collect Date: ? 09/25/2014 ? Location: ? [facility] ? Receive Date: ? 09/26/2014 ? Provider: STEPHANY AVILA DO Copy to: NANCY VINCENT MD ? Final Pathologic Diagnosis: SKIN OF ARM, RIGHT DORSUM, EXCISION: - Squamous cell carcinoma, well differentiated, invasive. - Margins negative for squamous cell carcinoma. Microscopic Description: The stratum corneum is thickened by orthohyperkeratosis and parakeratosis. Emanating from the epidermis and extending into the dermis is a proliferation of atypical squamous epithelium. ??The proliferatio n consists of variably sized, irregular islands associated with dermal desmoplasia. ??The cells have an increased nuclear-cytoplasmic ratio and nuclear pleomorphism. ??Intercellular bridge and keratin pete formation are evident. ??(Dr. Ortega) /[facility] Document reviewed and electronically signed by: CASSIUS ORTEGA MD Report ??Date: 09/29/2014 16:55 By the signature above, the attending physician certifies th at he/she has personally conducted a gross and/or microscopic examin ation of the described specimens and rendered or confirmed the above diagnosis. Specimen(s) Received: Skin lesion dorsum right arm Clinical History: Neoplasm of uncertain behavior; clinical diagnosis code: 238 .2 Gross Description: ? Received in formalin labelled with proper patient identification (initials M, S) and dorsum R arm is an unoriented elliptical excision of angel-white skin (1.9 x 1.1 cm and is excised to a depth of 0.4 cm). There is a central irregular pink-angel scaled focally crusted nodule that measures 1 .1 x 0.9 x 0.3 cm. The margins are inked. The speci men is serially sectioned and entirely submitted as 1 and 2 central sections and 3 tips, reverse en face. Marry Jones 09/26/2014 10:28 AM End of Report Specimen Anatomical Collection Method Collection Time Receive d Time (Source) Location / / Volume Laterality 09/25/2014 9:14 09/26/2014 9 :14 EDT EDT Stephany Nish Avila DO PATHOLOGY ORDERABLES Performing Organization Address City/State/ZIP Code Phon e Number [facility] [address] [place] [address] SERVICES documented in this encounter Visit Diagnoses Not on filedocumented in this encounter Care Teams Clay Digger Relationship Specialty Start Date End Date Nancy Vincent MD PCP - General 08/29/11 10/28/[address] [place] [address] [address] [place], [place] [id number] documented as of this encounter
--- OUTSIDE RECORDS SUMMARY | 2022-10-07 18:47 | XMS_ITS | Encounter Summary ---
:1955 Author Organization [facility] Address [address] [place] [address] Care Team Providers Name Role Phone Marine Price EMMANUEL Primary Care Provider [phone] Reason for Visit Reason Comments Proteinuria Encounter Details Date Type Department Care Team Description 06/22/2020 Telemedicine [facility] Sweetie Burrell CKD (chronic kidney disease), stage II (Primary Dx); Nephrology - Farhat Miguel MD Diabetes mellitus due to underlying cond ition with stage 2 chronic kidney disease, with long-term current use of insulin ([facility]); 1 [facility] 1 [facility] Other p roteinuria; [facility] [place], [place] [address] Rehab, [place] [address] (Wo rk) Social History Tobacco Use Types Packs/Day Years Used Date Smoking Tobacco: Every Day Cigarettes 1 Smokeless Tobacco: Never Alcohol Use Standard Drinks/Week Comments No 0 (1 standard drink = 0.6 oz pure alcoho l) Sex Assigned at Date Recorded Not on file documented as of this encounter Progress Notes Sweetie Burrell MD - 06/22/2020 1030 EDT This Nephrology Visit/Progress note was conducted over the telephone Subjective: Ms. Lopez was last seen in clinic in December. At that time, I had her discontinue her amlodipine and start spironolactone 12.5 mg daily with a plan to repeat labs 2 weeks later, and then again before this appointment. She has not had labs done before this appointment. Her BP was getting as high 180/100 due to stress. PCP added back amlodipine. Lamictal increased to 125 mg Currently taking: Losartan 100 Spironolactone 12.5 Amlodipine 5 mg Blood pressures: 160/80-90 (120/79 when she was not stressed) Weight - 210 lbs which is stable. Stress due to the world situation. Speaks to a counselor. Ms. Thacker (psychiatric). Trying to exercise but legs are bad. Nothing new with her health. Diabetes is reportedly under control. Has not had a recent HGBA1c Gets pain shot in hip when pain is bad ROS: Breathing okay Never lightheaded No edema Leg pain (r/t injury and neuropathy) with activity Appetite is good Sleeping poorly No dysuria No chest pain No palpitations Does have anxiety but no panic attacks Medications reviewed and if relevant notable for the following: Current Outpatient Medications on File Prior to Visit Medication Sig Dispense Refill ??? amLODIPine (NORVASC) 5 mg tablet Take 5 mg by mouth daily. ??? blood glucose (ONE TOUCH ULTRA TEST) test strips 1 Strip by misc (non-drug; combo route) route 3times daily. ??? cholecalciferol, Vitamin D3, 1,000 unit tablet Take 1,000 Units by mouth daily. ??? insulin degludec (TRESIBA FLEXTOUCH U-100) 100 unit/ml (3ml) insulin pen Inject 35 Units into the skin every evening. ??? lamoTRIgine (LAMICTAL) 100 mg tablet Take 125 mg by mouth daily. ??? liraglutide (VICTOZA [...] medications on file prior to visit. Objective: There were no vitals filed for this visit. Labs reviewed and if relevant notable for the following: NO RECENT LABS Urinalysis No results found for this visit on 06/22/20. No results found for: CREATININE, CALCGFR Lab Results Component Value Date MICRALBCRRAT 1,180.3 01/08/2019 CREATURNEXT 63 01/08/2019 Lab Results Component Value Date PTH 28 12/30/2019 No results found for: WBC, HGB, PLT, IRON, TIBC, FERRITIN Assessment: 65 y.o. woman with significant proteinuria and normal kidney function in the setting of known insulin dependent diabetes mellitus. Workup negative for multiple myeloma and primary membranous nephropathy. While she may have FSGS or some other basement membrane abnormality, it would not change treatmentat this time so no further workup is indicated at this time. No recent labs are available at this time and her blood pressure does seem to be elevated due to stress. At this point, more data is needed before any changes can be made. Plan: - Labs in the next few weeks (neph profile, urine protein studies) - More intense monitoring of BP (different times of day) over the next month - No medication changes recommended today. Follow-up in one month Labs to be ordered prior to next visit: neph profile, UA, urine protein to creatinine ratio Visit Diagnoses: 1. CKD (chronic kidney disease), stage II 2. Diabetes mellitus due to underlying condition with stage 2 chronic kidney disease, with long-termcurrent use of insulin ([facility]) 3. Other proteinuria 4. Hypertension, unspecified type This visit was conducted by telephone during [...] or mental health care. Sweetie Burrell MD 07/27/20 documented in this encounter Plan of Treatment Not on filedocumented as of this encounter Visit Diagnoses Diagnosis CKD (chronic kidney disease), stage II - Primary Chronic kidney disease, Stage II (mild) Diabetes mellitus due to underlying cond ition with stage 2 chronic kidney disease, with long-term current use of insulin ([facility]) (H[facility]) Other proteinuria Hypertension, unspecified type documented in this encounter Historical Medications This list may reflect changes made after this encounter. Medication Sig Dispensed Refills Start Date End Date amLODIPine (NORVASC) 5 mg Take 5 mg by mouth 0 01/13/2021 tablet daily. added in this encounter Care Teams Fish Egg Packer Relationship Specialty Start Date End Date Marine Price FNP PCP - General Neurological Surgery 10/29/[address] [place] [id number] documented as of this encounter
--- OUTSIDE RECORDS SUMMARY | 2022-10-07 18:47 | XMS_ITS | Encounter Summary ---
:1955 Author Organization [facility] Address [address] [place] [address] Care Team Providers Name Role Phone Marine Price Primary Care Provider [phone] Reason for Visit Reason Onset Date Comments Appointment Related 07/22/2020 Encounter Details Date Type Department Care Team Description 07/22/2020 Telephone [facility] Kendra Washington RN Ap pointment Related Nephrology - [address] [place] [address] Social History Tobacco Use Types Packs/Day Years Used Date Smoking Tobacco: Every Day Cigarettes 1 Smokeless Tobacco: Never Alcohol Use Standard Drinks/Week Comments No 0 (1 standard drink = 0.6 oz pure alcoho l) Sex Assigned at Date Recorded Not on file documented as of this encounter Miscellaneous Notes Telephone Encounter - Kendra Washington RN - 07/22/2020 1243 EDT Scheduled for telemedicine visit on 07/27/2020. Pre-visit lab orders in chart. Phone call to patient.She states she had lab work drawn at her PCP office on Monday. Phone call to PCP office. Line busy unable to leave message. Phone call to [facility]. Patient had lab work drawn on 07/16/2020. They will fax results to us - no urine testing was done. Phone call to Nancy. She will go to [facility] sometime over the next two days to get the urine testing done. documented in this encounter Plan of Treatment Not on filedocumented as of this encounter Visit Diagnoses Not on filedocumented in this encounter Care Teams Lacquer Sprayer Relationship Specialty Start Date End Date Dee, Marine J, ART LIBRARIAN PCP - General Neurological Surgery 10/29/19 [address] [place] [address] documented as of this encounter
--- OUTSIDE RECORDS SUMMARY | 2022-10-07 18:47 | XMS_ITS | Encounter Summary ---
:1955 Author Organization [facility] Address [address] [place] [address] Care Team Providers Name Role Phone Nancy Reynaga MD Primary Care Provider Marine Price Primary Care Provider Reason for Referral Laboratory Services (Routine) - New Request Specialty Diagnoses / Procedures Referred By Contact Refer red To Contact Diagnoses Albuminuria CKD (chronic kidney disease), stage II Other proteinuria Sweetie Burrell MD Procedures PHOSPHOLIPASE A2 RECEPTOR ABS, S [address] [phone] Referral ID Status Reason Start Date Expiration Date Visits V isits Requested Authorized [id number] New Request 11/05/2019 1 1 Laboratory Services (Routine) - New Request Specialty Diagnoses / Procedures Referred By Contact Refer red To Contact Diagnoses Albuminuria CKD (chronic kidney disease), stage II Other proteinuria Sweetie Burrell MD Procedures SERUM FREE LIGHT CHAINS [address] [phone] Referral ID Status Reason Start Date Expiration Date Visits V isits Requested Authorized [id number] New Request 11/05/2019 1 1 Laboratory Services (Routine) - New Request Specialty Diagnoses / Procedures Referred By Contact Refer red To Contact Diagnoses Albuminuria CKD (chronic kidney disease), stage II Other proteinuria Sweetie Burrell MD Procedures SPEP, INCLUDES QUANTITATION OF MONOCLONAL SPIKE 1 [facility], [facility] [address] [place] [address] Referral ID Status Reason Start Date Expiration Date Visits V isits Requested Authorized [id number] New Request 11/05/2019 1 1 Laboratory Services (Routine) - New Request Specialty Diagnoses / Procedures Referred By Contact Refer red To Contact Diagnoses Albuminuria CKD (chronic kidney disease), stage II Other proteinuria Diabetes mellitus due to underlying condition with stage 2 chronic kidney disease, with long-term current use of insulin ([facility]) Sweetie Burrell MD (HCC) Procedures PROTEIN/CREATININE RATIO, URINE 1 [facility], [place] [phone] Referral ID Status Reason Start Date Expiration Date Visits V isits Requested Authorized [id number] New Request 11/05/2019 1 1 Laboratory Services (Routine) - New Request Specialty Diagnoses / Procedures Referred By Contact Refer red To Contact Diagnoses Albuminuria CKD (chronic kidney disease), stage II Other proteinuria Diabetes mellitus due to underlying condition with stage 2 chronic kidney disease, with long-term current use of insulin ([facility]) [facility] MD Procedures CREATININE, URINE RANDOM 1 [facility], [address] [phone] Referral ID Status Reason Start Date Expiration Date Visits V isits Requested Authorized [id number] New Request 11/05/2019 1 1 Laboratory Services (Routine) - New Request Specialty Diagnoses / Procedures Referred By Contact Refer red To Contact Diagnoses Albuminuria CKD (chronic kidney disease), stage II Other proteinuria Diabetes mellitus due to underlying condition with stage 2 chronic kidney disease, with long-term current use of insulin ([facility]) [facility] MD Procedures ALBUMIN, URINE 1 [place] [phone] Referral ID Status Reason Start Date Expiration Date Visits V isits Requested Authorized [id number] New Request 11/05/2019 1 1 Laboratory Services (Routine) - New Request Specialty Diagnoses / Procedures Referred By Contact Refer red To Contact Diagnoses Albuminuria CKD (chronic kidney disease), stage II Other proteinuria Sweetie Burrell MD Procedures NEPHROLOGY PROFILE (INCLUDES BUN, CREATININE, CALCULATED GFR, ELECTROLYTES, CALCIUM, PHOSPHORUS, ALBUMIN) 1 [place] [phone] Referral ID Status Reason Start Date Expiration Date Visits V isits Requested Authorized [id number] New Request 11/05/2019 1 1 Laboratory Services (Routine) - New Request Specialty Diagnoses / Procedures Referred By Contact Refer red To Contact Diagnoses Albuminuria CKD (chronic kidney disease), stage II Sweetie Burrell MD Procedures PROTEIN/CREATININE RATIO, URINE 1 [place] [phone] Referral ID Status Reason Start Date Expiration Date Visits V isits Requested Authorized [id number] New Request 10/28/2019 1 1 Laboratory Services (Routine) - New Request Specialty Diagnoses / Procedures Referred By Contact Refer red To Contact Diagnoses Albuminuria CKD (chronic kidney disease), stage II Sweetie Burrell MD Procedures CREATININE, URINE RANDOM 1 [place] [phone] Referral ID Status Reason Start Date Expiration Date Visits V isits Requested Authorized [id number] New Request 10/28/2019 1 1 Laboratory Services (Routine) - New Request Specialty Diagnoses / Procedures Referred By Contact Refer red To Contact Diagnoses Albuminuria CKD (chronic kidney disease), stage II Sweetie Burrell MD Procedures ALBUMIN, URINE 1 [place] [phone] Referral ID Status Reason Start Date Expiration Date Visits V isits Requested Authorized [id number] New Request 10/28/2019 1 1 Laboratory Services (Routine) - New Request Specialty Diagnoses / Procedures Referred By Contact Refer red To Contact Diagnoses Albuminuria CKD (chronic kidney disease), stage II Sweetie Burrell MD Procedures UA, CHEMICAL AND SEDIMENT ANALYSIS (DIPSTICK AND MICROSCOPIC) 1 [place] [phone] Referral ID Status Reason Start Date Expiration Date Visits V isits Requested Authorized [id number] New Request 10/28/2019 1 1 Laboratory Services (Routine) - New Request Specialty Diagnoses / Procedures Referred By Contact Refer red To Contact Diagnoses Albuminuria CKD (chronic kidney disease), stage II Sweetie Burrell MD Procedures NEPHROLOGY PROFILE (INCLUDES BUN, CREATININE, CALCULATED GFR, ELECTROLYTES, CALCIUM, PHOSPHORUS, ALBUMIN) [address] [phone] Referral ID Status Reason Start Date Expiration Date Visits V isits Requested Authorized [id number] New Request 10/28/2019 1 1 Reason for Visit Reason Comments Proteinuria Consult (Routine) - Authorization Not Required Specialty Diagnoses / Procedures Referred By Contact Refer red To Contact Nephrology Diagnoses Type 2 diabetes mellitus with diabetic nephropathy ([facility]) Marine Price, [facility] [employer]ILD[employer] [address] [place] [address] [place] [address] Referral ID Status Reason Start Expiration Visits Visits Date Date Requested Authorized [id number] Authorization Not 1 1 Required Encounter Details Date Type Department Care Team Description 10/28/2019 Office Visit [facility] Sweetie Burrell Alb uminuria (Primary Dx); Nephrology - Farhat Miguel MD CKD (chronic kidney disease), stage II; 1 [facility] 1 [facility] Other p roteinuria; Street Street Diabetes mellitus due to underlying cond ition with stage 2 chronic kidney disease, with long-term current use of insulin ([facility]) [place] [address] Rehab, [place] [phone] (Wo rk) Social History Tobacco Use Types Packs/Day Years Used Date Smoking Tobacco: Every Day Cigarettes 1 Smokeless Tobacco: Never Alcohol Use Standard Drinks/Week Comments No 0 (1 standard drink = 0.6 oz pure alcoho l) Sex Assigned at Date Recorded Not on file documented as of this encounter Last Filed Vital Signs Vital Sign Reading Time Taken Comments Blood Pressure 135/70 10/28/2019 1407 EST Pulse 100 10/28/2019 1407 EST Temperature - - Respiratory Rate - - Oxygen Saturation - - Inhaled Oxygen Concentration - - Weight 95.3 kg (210 lb 1.6 oz) 10/28/2019 1407 EST Height - - Body Mass Index - - documented in this encounter Patient Instructions Patient InstructionsSweetie Burrell MD - 10/28/2019 13:00 EST No medication changes recommended today Labs today (blood and urine) Check your blood pressure at home a few times a week for the next couple of months. Please bring thereadings to your next visit with me. Return to clinic in 2 months and try to remember to have repeat labs done a few days before your appointment documented in this encounter Progress Notes Sweetie Burrell MD - 10/28/2019 1300 EST Images from the original note were not included. Nephrology Clinic H&P Date of Service: 11/05/2019 Chief Complaint Patient presents with ??? Proteinuria HPI: Ms. Lopez is a pleasant 64-year-old woman referred to nephrology clinic by her PCP (Dr. Ibanez) for evaluation and management of her proteinuria in the setting of known insulin-dependent diabetes. She does have a history of heavy NSAID use but has recently decreased this significantly. Current and long-term tobacco use No ETOH No h/o kidney stones or hematuria No family history of kidney disease Her history is notable for a vague diagnosis of PTSD/depression though she admits that a clear diagnosis was never made. She admits to trauma in her childhood and does think that has contributed significantly to her development. She explains that she was on Paxil but acknowledged that it may have beencausing more problems for her so she weaned off of it which she describes as a terrible experience. She does take losartan 100 mg PO daily for over 6 years which is appropriate. Review of Systems Review of Systems Constitutional: Negative. Respiratory: Negative. Cardiovascular: Negative. Gastrointestinal: Negative. Genitourinary: Negative. Musculoskeletal: Positive for joint pain and myalgias. Negative for falls. Skin: Negative for rash. Neurological: Negative for dizziness, tingling, tremors and loss of consciousness. Endo/Heme/Allergies: Negative. Active Problem List Patient Active Problem List Diagnosis ??? Other proteinuria ??? Albuminuria ??? 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 CKD (chronic kidney disease), stage II ??? PTSD (post-traumatic stress disorder) ??? Bladder incontinence ??? Depression PMH PSH Past Medical History: Diagnosis Date ??? Acne ??? Arthritis ??? Diabetes mellitus ([facility]) ??? Environmental allergies ??? History of blood transfusion ??? Hypertension ??? Psoriasis ??? Squamous cell carcinoma of skin 10/2014 right arm ??? Varicella Past Surgical History: Procedure Laterality Date ??? ABDOMEN SURGERY ??? BREAST SURGERY ??? HERNIA REPAIR ??? HYSTERECTOMY ??? SKIN BIOPSY Social History Family history Social History Socioeconomic History ??? Marital status: Spouse name: Not on file ??? Number of children: Not on file ??? Years of education: Not on file ??? Highest education level: Not on file Occupational History ??? Not on file Social Needs ??? Financial resource strain: Not on file ??? Food insecurity: Worry: Not on file Inability: Not on file ??? Transportation needs: Medical: Not on file Non-medical: Not on file Tobacco Use ??? Smoking status: Current Every Day Smoker Packs/day: 1.00 ??? Smokeless tobacco: Never Used Substance and Sexual Activity ??? Alcohol use: No ??? Drug use: No ??? Sexual activity: Not on file Lifestyle ??? Physical activity: Days per week: Not on file Minutes per session: Not on file ??? Stress: Not on file Relationships ??? Social connections: Talks on phone: Not on file Gets together: Not on file Attends orthodoxy service: Not on file Active member of club or organization: Not on file Attends meetings of clubs or organizations: Not on file Relationship status: Not on file ??? Intimate partner violence: Fear of current or ex partner: Not on file Emotionally abused: Not on file Physically abused: Not on file Forced sexual activity: Not on file Other Topics Concern ??? Not on file Social History Narrative ??? Not on file Family History Problem Relation Age of Onset ??? Cancer Mother ??? Mental Illness Mother ??? Hypertension Sister ??? Kidney Disease Neg Hx Current Outpatient Medications on File Prior to [...] Lisinopril Cough ??? Loratadine Palpitations hyper ??? Bxfgxmv-Zjk-Npt Reductase Inhibitors Other (See Comments) Leg cramps ??? Sulfa (Sulfonamide Antibiotics) Rash Objective: BP 135/70 Pulse 100 Wt 95.3 kg (210 lb 1.6 oz) Gen: alert, cooperative woman in no distress Eyes: conjunctivae/sclera clear Head: atraumatic, normocephalic Mouth/throat: MMM CV: RRR, nml S1/S2, no murmurs/rubs/gallops appreciated Resp: CTA b/l, no wheezes/rales/rhonchi Extr: no peripheral edema, atraumatic Neuro: grossly normal with no tremor or asterixis Mental status: appropriate Skin: exposed skin is warm and dry with no obvious rash or lesion Previous Labs: Urinalysis No results found for this visit on 10/28/19. No results found for: CREATININE, CALCGFR Lab Results Component Value Date MICRALBCRRAT 1,180.3 01/08/2019 CREATURNEXT 63 01/08/2019 Assessment: 64 y.o. with significant proteinuria in the setting of known insulin-dependent diabetes mellitus (x 15 years), current and long-term tobacco use, prior heavy NSAID use (currently only sporadic), and history of hypertension (but this is not long-term and thought to be only due to withdrawal from SSRI Paxil). At this time, I do not know what her home blood pressures have been and will need this information before making any medication changes. Blood pressure is at goal in clinic. As her electrolytes, acid/base, calcium/phosphorus, serum albumin, and renal function are normal, no acute intervention isneeded. I was unable to perform urine microscopy in clinic at this time so I am unable to assess the quality of her urine and if there are any casts, crystals, fat droplets, or dysmorphic RBCs. It is most likely that her proteinuria is due to the above co- morbidities. I will check a SPEP, PLA2R abs, and serum free light chains at her next visit. Kidney biopsy is not needed at this time but will be considered in the future if her renal function shows decline or if her proteinuria worsens. Plan: - No medication changes recommended today - Continue losartan 100 mg PO daily - Optimize diabetes (HgbA1c was 8.4 in February 2019) - Labs today (blood and urine); see results above - Instructed to check blood pressure at home a few times a week for the next couple of months and tobring the readings to your next visit with me. 1. Albuminuria 2. CKD (chronic kidney disease), stage II 3. Other proteinuria 4. Diabetes mellitus due to underlying condition with stage 2 chronic kidney disease, with long-termcurrent use of insulin ([facility]) I spent a total of 45 minutes in face to face time with this patient today and >50% of that time was spent in counseling and coordination of care as described in the progress note. Follow-up in 2 months Labs to be checked at next visit: nephrology profile, CBC, urine albumin, urine protein, urine creatinine, SPEP, serum free light chains, PLA2R ab Sweetie Burrell MD 11/05/19 documented in this encounter Plan of Treatment Scheduled Orders Name Type Priority Associated Diagnoses Order S chedule NEPHROLOGY PROFILE Lab Routine Albuminuria Ordered: 10/28/2019 (INCLUDES BUN, CREATININE, CKD (chronic k idney CALCULATED GFR, disease), stage II ELECTROLYTES, CALCIUM, PHOSPHORUS, ALBUMIN) UA, CHEMICAL AND SEDIMENT Lab Routine Albumi elisa Ordered: 10/28/2019 ANALYSIS (DIPSTICK AND CKD (chronic kidne y MICROSCOPIC) disease), stage II ALBUMIN, URINE Lab Routine Albuminuria Ordered: 10/28/2019 CKD (chronic kidney disease), stage II CREATININE, URINE RANDOM Lab Routine Albumin uria Ordered: 10/28/2019 CKD (chronic kidney disease), stage II PROTEIN/CREATININE RATIO, Lab Routine Albumi elisa Ordered: 10/28/2019 URINE CKD (chronic kidney disease), stage II ELECTROLYTES Lab Routine Albuminuria Ordered: 10/28/2019 CKD (chronic kidney disease), stage II BUN Lab Routine Albuminuria Ordered: 10/28/2019 CKD (chronic kidney disease), stage II CREATININE Lab Routine Albuminuria Ordered: 10/28/2019 CKD (chronic kidney disease), stage II CALCIUM Lab Routine Albuminuria Ordered: 10/28/2019 CKD (chronic kidney disease), stage II PHOSPHORUS Lab Routine Albuminuria Ordered: 10/28/2019 CKD (chronic kidney disease), stage II ALBUMIN Lab Routine Albuminuria Ordered: 10/28/2019 CKD (chronic kidney disease), stage II CREATININE, URINE RANDOM Lab Routine Albumin uria Expected: 12/23/2019 CKD (chronic kidney (Approxi mate), disease), stage II Expires: 11/05/2020 Other proteinuri a Diabetes mellitus due to underlying condition with stage 2 chronic kidney disease, with long-term current use of insulin ([facility]) SPEP, INCLUDES Lab Routine Albuminuria Expected: 12/23/2019 QUANTITATION OF MONOCLONAL CKD (chronic k idney (Approximate), SPIKE disease), stage II Expires: 11/05/2020 Other proteinuria PHOSPHOLIPASE A2 RECEPTOR Lab Routine Albumi elisa Expected: 12/23/2019 ABS, S CKD (chronic kidney (Approxi mate), disease), stage II Expires: 11/05/2020 Other proteinuria documented as of this encounter Results SERUM FREE LIGHT CHAINS (12/30/2019 14:52 EST) athologist Signature Lambda Free Lt 1.03 [facility] [place] Free Lt 1.99 [facility] [place]/Lambda 1.93 [facility] Specimen (Source) Anatomical Collection Method Collection Time Re ceived Time Location / / Volume Laterality Blood VENOUS BLOOD / 12/30/2019 14:52 Unknown EST Sweetie Burrell MD CHEMISTRY & BLOOD GAS ORDERA BLES Performing Organization Address City/State/ZIP Code Phon e Number [facility] PROTEIN/CREATININE RATIO, URINE (12/30/2019 14:52 EST) athologist Signature Protein, Total, p [facility] Ur Random, HOSPITAL LAB External Creatinine, Ur p [facility] Random, [facility]OSPITAL [facility] External UPRO mg/mg Cr, p [facility] Ur External HOSPITAL LAB Specimen (Source) Anatomical Collection Method Collection Time Re ceived Time Location / / Volume Laterality Urine 12/30/2019 14:52 EST Sweetie Burrell MD URINALYSIS ORDERABLES Performing Organization Address City/[facility]/ZIP Code Phon e Number [facility] ALBUMIN, URINE (12/30/2019 14:52 EST) athologist Signature Microalb ug/mg [facility] Crea, [facility]PITAL LAB Microalb mg/dl, [facility] Creatinine, [facility] (UCRR), External Specimen (Source) Anatomical Collection Method Collection Time Re ceived Time Location / / Volume Laterality Urine 12/30/2019 14:52 EST Sweetie Burrell MD CHEMISTRY & BLOOD GAS ORDERA BLES Performing Organization Address City/[facility]/ZIP Code Phon e Number [facility] NEPHROLOGY PROFILE (INCLUDES BUN, CREATININE, CALCULATED GFR, ELECTROLYTES, CALCIUM, PHOSPHORUS, ALBUMIN) (12/30/2019 14:52 EST) athologist Signature Phosphorus, 3.8 [facility] External HOSPITAL LAB Albumin, 4.0 [facility] BUN, External 21 [facility] Chloride, 102 [facility] Creatinine, 0.60 [facility] Potassium, 4.4 [facility] GFR, 100 [facility] Calculated, HOSPITAL LAB External Calculated [facility] Calcium, HOSPITAL LAB External Calcium, 9.9 [facility] Sodium, 136 [facility] CO2, External 24.0 [facility] Specimen (Source) Anatomical Collection Method Collection Time Re ceived Time Location / / Volume Laterality Blood VENOUS BLOOD / 12/30/2019 14:52 Unknown EST Sweetie Burrell MD PACKAGES & DNA PROBE ORDERAB LES Performing Organization Address City/[facility]/ZIP Code Phon e Number [facility] documented in this encounter Visit Diagnoses Diagnosis Albuminuria - Primary Proteinuria CKD (chronic kidney disease), stage II Chronic kidney disease, Stage II (mild) Other proteinuria Diabetes mellitus due to underlying cond ition with stage 2 chronic kidney disease, with long-term current use of insulin ([facility]) ([facility]) documented in this encounter Discontinued Medications Medication Sig Discontinue Reason Start Date End Date albuterol 90 Inhale 2 Puffs as Patient Stopped 019 mcg/actuation directed every 6 hours Taking inhaler as needed for Wheezing. BUPROPION HCL Take by mouth. Patient Stopped 9 (WELLBUTRIN ORAL) Taking insulin glargine Inject 40 Units into Alternate therapy 10/28/2019 (LANTUS SOLOSTAR) the skin at bedtime. 100 unit/mL (3 mL) injection pen insulin lispro Inject 2-12 Units into Therapy completed 10/28/2019 (HUMALOG) 100 the skin 3 times daily unit/mL vial before meals. ipratropium-albutero Take 3 mL by Therapy completed l (DUONEB) 0.5 mg-3 nebulization 4 times mg(2.5 mg base)/3 mL daily. nebulizer solution paroxetine (PAXIL) Take 20 mg by mouth Therapy completed 10/28/2019 40 mg tablet daily. traMADol (ULTRAM) 50 Take 50 mg by mouth Patient Stopped 10/28/2019 mg tablet daily. Taking documented as of this encounter Historical Medications This list may reflect changes made after this encounter. Medication Sig Dispensed Refills Start Date End Date lamoTRIgine (LAMICTAL) 100 Take 100 mg by 0 01/22/2021 mg tablet mouth daily. added in this encounter Care Teams Grinder Setup Operator Relationship Specialty Start Date End Date Nancy Reynaga MD PCP - General 08/29/11 10/28/[address] [place] [address] [address] [place], [place] [id number] Marine Price FNP PCP - General Neurological Surgery 10/29/19 [address] [place] [address] documented as of this encounter
--- OUTSIDE RECORDS SUMMARY | 2022-10-07 18:47 | XMS_ITS | Encounter Summary ---
:1955 Author Organization [facility] Address [address] [place] [address] Care Team Providers Name Role Phone Unavailable Primary Care Provider Unavailable Encounter Details Date Type Department Care Team Description 08/01/2008 Before [facility] - Nancy Reynaga, Converted Visit Marichuy burgess MD (Marichuy) [address] [facility] [address] [facility] [place] [address] [place], [place] [phone] (Wo rk) Social History Tobacco Use Types Packs/Day Years Used Date Smoking Tobacco: Never Assessed Sex Assigned at Date Recorded Not on file documented as of this encounter Plan of Treatment Not on filedocumented as of this encounter Procedures Procedure Name Priority Date/Time Associated Comments Diagnosis HPV DETECTION, HIGH Routine 08/01/2008 17:26 Resu lts for this RISK TYPES EDT procedure are i n the results section. CYTOPATHOLOGY Routine 08/01/2008 0:00 Results for this EDT procedure are i n the results section. documented in this encounter Results HUMAN PAPILLOMA VIRUS DNA TEST (08/01/2008 17:26 EDT) [facility] Method Time Signature Specimen Cervix, MYRICK Description ThinPrep [facility] vial Result Negative for MYRICK HPV types [facility] 16, 18, 31, 33, 35, 39, 45, 51, 52, 56, 58, 59, and 68. Report Status Final [facility] [id number] [facility] Specimen Anatomical Collection Method Collection Time Receive d Time (Source) Location / / Volume Laterality 08/01/2008 17:26 08/06/2008 EDT 17:26 EDT Nancy Reynaga MD MICROBIOLOGY - GENERAL ORDER PAULINO Performing Organization Address City/State/ZIP Code Phon e Number [facility] [address] [place] [address] SERVICES [facility] [address] [place] [address] CYTOPATHOLOGY (08/01/2008 0:00 EDT) Component Value Ref Test Analysis Performed At [facility] Range Method Time Signature Pathology CYTOPATHOLOGY REPORT ? [facility] Report: ? [facility] Reports generated via [employer] interface contain original data; ? however they are lacking the format of the original report. ? Caution should be taken when reading/interpreting unformatted reports. ? Name: ? NANCY GILLIS ? Accession #: ? [id number] ? : ? 1955 (Age: 53) ??F ?Collect Date: ? 08/01/2008 ? Location: ? [facility] ? Receive Date: ? 08/05/2008 ? Provider: ?NACNY NUNO MAN MD ? Copy to: ? Specimen/Source: ? ThinPrep Pap Test, Cervix/Endocervix, processed on Cytyc ThinPrep Imaging System, wit h manual evaluation ? Last Menstrual Period: ? Menstrual/ Status: ? Post Menopausal ? Other: ? HPVDX - HPV testing requeste d regardless of diagnosis on current ThinPrep Pap ?? test. ? SPECIMEN ADEQUACY ? Satisfactory for Eval uation ? - transformation zone compon ent present ? GENERAL CATEGORIZATION ? Negative for Intraepi thelial Lesion or Malignancy ? INTERPRETATION ? Fungal organisms pres ent morphologically consistent with Nereida species. ? Document reviewed and electr onically signed by: ? Leeanne Verville,CT(ASCP) ? Report Date: ??08/06/ 2007 13:47 ? End of Report ? Specimen (Source) Anatomical Location Collection Method / Collectio n Time Received Time / Laterality Volume 08/01/2008 08/05/2008 Nancy P Erisman MD PATHOLOGY ORDERABLES Performing Organization Address City/State/ZIP Code Phon e Number [facility] [address] [place] [address] SERVICES [facility] [address] [place] [address] documented in this encounter Visit Diagnoses Not on filedocumented in this encounter
--- OUTSIDE RECORDS SUMMARY | 2022-10-07 18:47 | XMS_ITS | Encounter Summary ---
:1955 Author Organization [facility] Address [address] [place] [address] Care Team Providers Name Role Phone Marine Price DRAW FURNACE TENDER Primary Care Provider [phone] Reason for Visit Reason Onset Date Comments Patient Information Update 12/31/2019 Encounter Details Date Type Department Care Team Description 12/31/2019 Telephone [facility] Sweetie Burrell ient Information Nephrology - Farhat Miguel MD Update [address] [address] [address], [place] [address] (Wo rk) Social History Tobacco Use Types Packs/Day Years Used Date Smoking Tobacco: Every Day Cigarettes 1 Smokeless Tobacco: Never Alcohol Use Standard Drinks/Week Comments No 0 (1 standard drink = 0.6 oz pure alcoho l) Sex Assigned at Date Recorded Not on file documented as of this encounter Miscellaneous Notes Telephone Encounter - Kendra [place] RN - 01/01/2020 0944 EST Phone call to [facility]. They are faxing the remainder of the labs that were done. Telephone Encounter - Sweetie Burrell MD - 12/31/2019 1838 EST I had ordered a SPEP and serum free light chains for Ms. Lopez at [facility] but it doesnot seem that they collected it. Can you please call and confirm. documented in this encounter Plan of Treatment Not on filedocumented as of this encounter Visit Diagnoses Not on filedocumented in this encounter Care Teams Hand Straightener Relationship Specialty Start Date End Date Marine Price FNP PCP - General Neurological Surgery 10/29/19 [address] [place] [address] documented as of this encounter
--- OUTSIDE RECORDS SUMMARY | 2022-10-07 18:47 | XMS_ITS | Encounter Summary ---
:1955 Author Organization [facility] Address [address] [place] [address] Care Team Providers Name Role Phone Marine Price EMMANUEL Primary Care Provider [phone] Reason for Visit Reason Onset Date Comments Other 07/28/2020 Encounter Details Date Type Department Care Team Description 07/28/2020 Telephone [facility] Enedina Burrell MD Other Nephrology - S Prosp ect 1 [facility] 1 [facility], Level [address] [place], [place] [address] [place] [phone] (Wo rk) Social History Tobacco Use Types Packs/Day Years Used Date Smoking Tobacco: Every Day Cigarettes 1 Smokeless Tobacco: Never Alcohol Use Standard Drinks/Week Comments No 0 (1 standard drink = 0.6 oz pure alcoho l) Sex Assigned at Date Recorded Not on file documented as of this encounter Miscellaneous Notes Telephone Encounter - Kendra Washington RN - 07/30/2020 1138 EDT Phone call to patient. She states the pain and heat sensation are completely gone at this point. Encouraged her to go to the ER if this were to happen again. She states she would. Telephone Encounter - Kendra Washington RN - 07/29/2020 1711 EDT [place] back from Transitional Living Specialist - no follow up indicated at this time. Phone call to patient. Unable toleave message no answer. Telephone Encounter - Kendra Washington RN - 07/28/2020 1309 EDT Phone call to Nancy. She states she is no longer in pain. There is a lingering sense of heat where the pain was previously. She said she wiped a clot away and thinks it may have come from her urinary tract. She denies any blood in her urine and she says making urine was not and has not been painful. She is unsure if she should go to the ER now since she is not having pain but wonders if she needs anytesting done. Will route to Transitional Living Specialist Telephone Encounter - Selena Plata - 07/28/2020 1239 EDT Pt calling because about 2 hrs ago she was in a lot of pain and her PCP believes she was passing a kidney. They recommended drinking a lot of water and seeing if it happens again. She said that it was a lot of pain and wants some recommendations on what to do if it does happen again, should she go to the ER? She said the pain was so bad she threw up. documented in this encounter Plan of Treatment Not on filedocumented as of this encounter Visit Diagnoses Not on filedocumented in this encounter Care Teams Branch Or Department Chief Librarian Relationship Specialty Start Date End Date Marine Price FNP PCP - General Neurological Surgery 10/29/19 [address] [place] [address] documented as of this encounter
--- OUTSIDE RECORDS SUMMARY | 2022-10-07 18:47 | XMS_ITS | Encounter Summary ---
:1955 Author Organization [facility] Address [address] [place] [address] Care Team Providers Name Role Phone Unavailable Primary Care Provider Unavailable Encounter Details Date Type Department Care Team Description 08/25/2011 Results Only [facility] Larry Del Valle MD Laboratory Services - [id number] [place] [address] [place] [address] [phone] Social History Tobacco Use Types Packs/Day Years Used Date Smoking Tobacco: Never Assessed Sex Assigned at Date Recorded Not on file documented as of this encounter Plan of Treatment Not on filedocumented as of this encounter Procedures Procedure Name Priority Date/Time Associated Diagnosis Comme [facility] SURGICAL PATHOLOGY Routine 08/25/2011 0:00 EDT Re sults for this procedure are i n the results section. documented in this encounter Results SURGICAL PATHOLOGY (08/25/2011 0:00 EDT) Component Value Ref Test Analysis Performed At [facility] Method Time Signature Pathology SURGICAL PATHOLOGY REPORT ? DIANE HER Report: Reports generated via [employer] interface contain original data; ? [facility] however they are lacking the format of the original report. ? Caution should be taken when reading/interpreting unformatted reports. ? Name: ? RIVAS, NANCY ? Accession #: ? [id number] ? : ? 1955 (Age: 56) ??F ? Collec t Date: ? 08/25/2011 ? Location: ? [facility] ? R eceive Date: ? 08/25/2011 ? Provider: KVNG LAUELSON MD ? Copy to: NANCY GAVINAN MD ? Final Pathologic Diagnosis: ? Colon, sigmoid, polyp , biopsy: ? - Hyperplastic polyp. See co mment. ? Comment: ? Deeper levels have be en examined. ??(Dr. Garduno)/mms ? Document reviewed and electr onically signed by: ? QI ELDA MD ? Report ??Date: 08/29/2011 16 :09 ? By the signature above, the attending physician certifies that he/she has ? personally conducted a gross and/or microscopic examination of the described ? specimens and rendered or co nfirmed the above diagnosis. ? Specimen(s) Received: ? Sigmoid polyp ? Clinical History: ? Hx polyps ? Gross Description: ? Received in formalin labelled Rivas, Nancy and sigmoid polyp is a ? angel-pink 0.2 x 0.2 x 0.2 cm soft tissue fragment. ??The specimen is entirely ? submitted in one cassette. ? ?(Vilma Cary/ankit ? End of Report ? Specimen (Source) Anatomical Collection Method Collection Time Re ceived Time Location / / Volume Laterality 08/25/2011 08/25/2011 19:2 0 EDT Kvng Del Valle MD PATHOLOGY ORDERABLES Performing Organization Address City/State/[facility] Code Phon e Number [facility] [address] [place] [address] SERVICES [facility] [address] [place] [address] documented in this encounter Visit Diagnoses Not on filedocumented in this encounter
--- OUTSIDE RECORDS SUMMARY | 2022-10-07 18:47 | XMS_ITS | Encounter Summary ---
:1955 Author Organization [facility] Address [address] [place] [address] Care Team Providers Name Role Phone Marine Price EMMANUEL Primary Care Provider Encounter Details Date Type Department Care Team Description 07/23/2020 Abstract [facility] Enedina Burrell MD Nephrology - S Prosp ect [address] [place] [address] [place] [address] (Wo rk) Social History Tobacco [...] Procedure Name Priority Date/Time Associated Comments Diagnosis NEPHROLOGY PROFILE Routine 07/16/2020 9:20 EDT Re sults for this (INCLUDES BUN, procedure are in CREATININE, the results CALCULATED GFR, section. ELECTROLYTES, CALCIUM, PHOSPHORUS, ALBUMIN) HEMOGLOBIN A1C Routine 07/16/2020 9:20 EDT Result s for this procedure are i n the results section. LIPID PROFILE Routine 07/16/2020 9:20 EDT Results for this (INCLUDES procedure are i n CHOLESTEROL, the results TRIGLYCERIDES, HDL, section. LDL) documented in this encounter Results NEPHROLOGY PROFILE (INCLUDES BUN, CREATININE, CALCULATED GFR, ELECTROLYTES, CALCIUM, PHOSPHORUS, ALBUMIN) (07/16/2020 9:20 EDT) athologist Signature Phosphorus, 4.4 [facility] Albumin, 3.6 [facility] BUN, External 19 [facility] Chloride, 105 [facility] Creatinine, 0.7 [facility] Potassium, 4.4 [facility]OSPITAL LAB GFR, 84 [facility] Calculated, HOSPITAL LAB External Calculated [facility] Calcium, HOSPITAL LAB External Calcium, 9.6 [facility] Sodium, 140 [facility] CO2, External 28.0 [facility] Specimen (Source) Anatomical Collection Method Collection Time Re ceived Time Location / / Volume Laterality Blood VENOUS BLOOD / 07/16/2020 9:20 Unknown EDT Historical Provider PACKAGES & DNA PROBE ORDERAB LES Performing Organization Address City/State/ZIP Code Phon e Number [facility] LIPID PROFILE (INCLUDES CHOLESTEROL, TRIGLYCERIDES, HDL, LDL) (07/16/2020 9:20 EDT) athologist Signature Cholesterol, 312 [facility] Triglycerides, 171 [facility] HDL, External 41 [facility] LDL, External 237 [facility] Chol/HDL Ratio, [facility] Fasting?, [facility] Specimen (Source) Anatomical Collection Method Collection Time Re ceived Time Location / / Volume Laterality Blood VENOUS BLOOD / 07/16/2020 9:20 Unknown EDT Historical Provider CHEMISTRY & BLOOD GAS ORDERA BLES Performing Organization Address City/State/ZIP Code Phon e Number [facility] HEMOGLOBIN A1C (07/16/2020 9:20 EDT) athologist Signature Hemoglobin A1C, 9.2 [facility] Est Avg [facility] Glucose, HOSPITAL LAB External Specimen (Source) Anatomical Collection Method Collection Time Re ceived Time Location / / Volume Laterality Blood VENOUS BLOOD / 07/16/2020 9:20 Unknown EDT Historical Provider CHEMISTRY & BLOOD GAS ORDERA BLES Performing Organization Address City/State/ZIP Code Phon e Number [facility] documented in this encounter Visit Diagnoses Not on filedocumented in this encounter Care Teams Traffic Control Supervisor Relationship Specialty Start Date End Date Marine Price FNP PCP - General Neurological Surgery 10/29/19 [address] [place] [address] documented as of this encounter
--- OUTSIDE RECORDS SUMMARY | 2022-10-07 18:47 | XMS_ITS | Encounter Summary ---
:1955 Author Organization [facility] Address [address] [place] [address] Care Team Providers Name Role Phone Nancy Reynaga MD Primary Care Provider Reason for Visit Reason Onset Date Comments Provider Referred 10/07/2014 Encounter Details Date Type Department Care Team Description 10/07/2014 Telephone [facility] Zay Salinas, Provider Referred Dermatology - [address] [address] [address], [place] [phone] (Wo rk) Social History Tobacco Use Types Packs/Day Years Used Date Smoking Tobacco: Never Assessed Sex Assigned at Date Recorded Not on file documented as of this encounter Miscellaneous Notes Telephone Encounter - Fern Magallanes - 10/07/2014 1502 EST Duplicated encounter, please refer to encounter dated 10/03/14. 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 documented in this encounter Plan of Treatment Not on filedocumented as of this encounter Visit Diagnoses Not on filedocumented in this encounter Care Teams Vocal Music Teacher Relationship Specialty Start Date End Date Nancy Reynaga MD PCP - General 08/29/11 10/28/[address] [place] [address] [place] [address] documented as of this encounter
--- OUTSIDE RECORDS SUMMARY | 2022-10-07 18:47 | XMS_ITS | Encounter Summary ---
:1955 Author Organization [facility] Address [address] [place] [address] Care Team Providers Name Role Phone Marine Pirce EMMANUEL Primary Care Provider [phone] Reason for Visit Reason Onset Date Comments Results 11/06/2019 Encounter Details Date Type Department Care Team Description 11/06/2019 Telephone [facility] Julio Cesar Canseco, RN Results Nephrology - S Prosp ect [id number] [place] [address] Social History Tobacco Use Types Packs/Day Years Used Date Smoking Tobacco: Every Day Cigarettes 1 Smokeless Tobacco: Never Alcohol Use Standard Drinks/Week Comments No 0 (1 standard drink = 0.6 oz pure alcoho l) Sex Assigned at Date Recorded Not on file documented as of this encounter Miscellaneous Notes Telephone Encounter - aHritha Canseco RN - 11/06/2019 1600 EST LMOM detailed. Telephone Encounter - Haritha Canseco RN - 11/06/2019 1559 EST ----- Message from Sweetie Burrell MD sent at 11/06/2019 15:51 EST ----- Regarding: RE: Please clarify PCP Labs are notable for normal kidney function. She does have protein in her urine as expected. Nothingelse is abnormal. I have ordered repeat labs for her to get before she comes to see me again, and I have added a few things. Please let her know. ----- Message ----- From: Fermin Walker Sent: 11/06/2019 9:03 EST To: Sweetie Burrell MD Subject: RE: Please clarify PCP Her PCP is Marine Price at [facility] I have updated her account to reflex thisand faxed over your last office visit notes. Nancy is wondering about the results of her labs she had completed on 10/28 after her visit with you. ----- Message ----- From: Sweetie Burrell MD Sent: 11/05/2019 17:55 EST To: Nephrology [facility] Subject: Please clarify PCP Hi, Please clarify who her current PCP is and update it in the computer. Can you also please fax my noteto her correct PCP? Thank you, Sweetie documented in this encounter Plan of Treatment Not on filedocumented as of this encounter Visit Diagnoses Not on filedocumented in this encounter Care Teams Detacher Relationship Specialty Start Date End Date Marine Price FNP PCP - General Neurological Surgery 10/29/[address] [place] [address] documented as of this encounter
--- OUTSIDE RECORDS SUMMARY | 2022-10-07 18:47 | XMS_ITS | Encounter Summary ---
:1955 Author Organization [facility] Address [address] [place] [address] Care Team Providers Name Role Phone Nancy Reynaga MD Primary Care Provider Encounter Details Date Type Department Care Team Description 10/14/2019 Abstract [facility] Enedina Burrell MD Nephrology - S Prosp ect [address] [place] [address] [place] [address] (Wo rk) Social History Tobacco [...] Procedure Name Priority Date/Time Associated Comments Diagnosis HEMOGLOBIN A1C Routine 03/25/2019 8:20 Results fo r this EDT procedure are i n the results section. HEMOGLOBIN A1C Routine 03/25/2019 8:20 EDT COMPLETE BLOOD COUNT Routine 03/25/2019 Results for this procedure are i n the results section. COMPREHENSIVE Routine 02/15/2019 13:30 Results fo r this METABOLIC PANEL (CMP) EDT proced ure are in the results section. URINE Routine 01/08/2019 Results for thi s [id number] proced ure are in RATIO (ACR) the results section. documented in this encounter Results HEMOGLOBIN A1C (03/25/2019 8:20 EDT) athologist Signature Hemoglobin A1C, 8.4 [facility] Est Avg [facility] Glucose, HOSPITAL LAB External Specimen (Source) Anatomical Collection Method Collection Time Re ceived Time Location / / Volume Laterality Blood VENOUS BLOOD / 03/25/2019 8:20 Unknown EDT Historical Provider CHEMISTRY & BLOOD GAS ORDERA BLES Performing Organization Address City/State/ZIP Code Phon e Number [facility] HEMOGLOBIN A1C (03/25/2019 8:20 EDT) athologist Signature Hemoglobin A1C, [facility] External HOSPITAL LAB Est Avg [facility] Glucose, [facility]ITAL LAB External Specimen (Source) Anatomical Collection Method Collection Time Re ceived Time Location / / Volume Laterality Blood VENOUS BLOOD / 03/25/2019 8:20 Unknown EDT Historical Provider CHEMISTRY & BLOOD GAS ORDERA BLERah Performing Organization Address City/[facility]/ZIP Code Phon e Number [facility] COMPLETE BLOOD COUNT (03/25/2019) athologist Signature HCT, External 49.4 [facility] MCH, External 28.9 [facility] MCV, External 92.2 [facility] MCHC, External 31.4 [facility] Hemoglobin, 15.5 [facility] WBC, External 12.0 [facility] RBC, External 5.36 [facility] PLT, External 286 [facility] RDW-CV, 13.5 [facility] Specimen (Source) Anatomical Location Collection Method / Collectio n Time Received Time / Laterality Volume Blood VENOUS BLOOD / 03/25/2019 Unknown Historical Provider HEMATOLOGY & PF4 ORDERABLES Performing Organization Address City/State/ZIP Code Phon e Number [facility] COMPREHENSIVE METABOLIC PANEL (CMP) (02/15/2019 13:30 EDT) athologist Signature GFR, [place] [facility] Calculated, HOSPITAL LAB External Glucose, Serum, 113 [facility] Albumin, 3.5 [facility] Total Alkaline 86 [facility] Phosphatase, HOSPITAL LAB External ALT, External 27 [facility] AST, External 24 [facility] BUN, External 16 [facility] Calculated [facility] Calcium, HOSPITAL LAB External Calcium, 9.4 [facility]ITAL LAB Chloride, 102 [facility] CO2, External 29.0 [facility] Creatinine, 0.50 [place] External [facility]OSPITAL LAB Fasting?, [facility] External HOSPITAL LAB Potassium, 4.1 [facility] External HOSPITAL LAB Sodium, 137 [facility] External [facility]OS[facility]ITAL [facility] Total Protein, 6.9 [facility] External HOSPITAL LAB Bilirubin, 0.4 [facility] Total, External HOSPITAL LAB Specimen (Source) Anatomical Collection Method Collection Time Re ceived Time Location / / Volume Laterality Blood VENOUS BLOOD / 02/15/2019 13:30 Unknown EDT Historical Provider CHEMISTRY & BLOOD GAS ORDERA BLERah Performing Organization Address City/State/ZIP Code Phon e Number [facility] ALBUMIN, URINE (01/08/2019) athologist Signature Microalb ug/mg 1,180.3 [facility] Crea, External HOSPITAL LAB Microalb 747.1 [facility] mg/dl, HOSPITAL LAB External Creatinine, 63 [facility] Random U HOSPITAL LAB (UCRR), External Specimen (Source) Anatomical Location Collection Method / Collectio n Time Received Time / Laterality Volume Urine 01/08/2019 Historical Provider CHEMISTRY & BLOOD GAS ORDERA BLERah Performing Organization Address City/State/ZIP Code Phon e Number [facility] documented in this encounter Visit Diagnoses Not on filedocumented in this encounter Historical Medications This list may reflect changes made after this encounter. Medication Sig Dispensed Refills Start Date End Date insulin degludec Inject 52 Units into 0 (TRESIBA FLEXTOUCH the skin every U-100) 100 unit/ml evening. (3ml) insulin pen polyethylene glycol Take 17 g by mouth 0 3350 (MIRALAX) 17 gram daily. packet liraglutide (VICTOZA Inject 1.8 mg into the 0 01/15/2021 3-ARIAN) 0.6 mg/0.1 mL skin daily. (18 mg/3 mL) injectable pen traMADol (ULTRAM) 50 mg Take 50 mg by mouth 0 10/28/2019 tablet daily. albuterol 90 Inhale 2 Puffs as 0 10/28 mcg/actuation inhaler directed every 6 hours as needed for Wheezing. naproxen (NAPROSYN) 500 Take 500 mg by mouth 0 01/11/2021 mg tablet as needed. ipratropium-albuterol Take 3 mL by 0 1 12/29/2018 (DUONEB) 0.5 mg-3 nebulization 4 times mg(2.5 mg base)/3 mL daily. nebulizer solution added in this encounter Care Teams Senior Clinical Data Analyst Relationship Specialty Start Date End Date Nancy Reynaga MD PCP - General 08/29/11 10/28/[address] [place] [address] [place] [address] documented as of this encounter
--- OUTSIDE RECORDS SUMMARY | 2022-10-07 18:47 | XMS_ITS | Encounter Summary ---
:1955 Author Organization [facility] Address [address] [place] [address] Care Team Providers Name Role Phone Unavailable Primary Care Provider Unavailable Encounter Details Date Type Department Care Team Description 02/18/2004 Results Only [facility] - Kvng Hassan MD [place] conversion [address] [place] [address] [place], [place] [id number] [phone] Social History Tobacco Use Types Packs/Day Years Used Date Smoking Tobacco: Never Assessed Sex Assigned at Date Recorded Not on file documented as of this encounter Plan of Treatment Not on filedocumented as of this encounter Procedures Procedure Name Priority Date/Time Associated Diagnosis Comme [facility] SURGICAL PATHOLOGY Routine 02/18/2004 0:00 EST Re sults for this procedure are i n the results section. documented in this encounter Results SURGICAL PATHOLOGY (02/18/2004 0:00 EST) Component Value Ref Test Analysis Performed At [facility] Method Time Signature Pathology SURGICAL PATHOLOGY REPORT DELLA COLBERT Report: Reports generated via electronic interface contain alyce senior data; AURELIO JOHNSON however they are lacking the format of the original report. Caution should be taken when reading/interpreting unformatte d reports. Name: ? NANCY RIVAS ? Accession #: ? [id number] ? : ? 1955 (Age: 48) ??F ? Collect Date: ? 02/18/2004 ? Location: ? [facility] ? Receive Date: ? 02/19/2004 ? Provider: KVNG HASSAN MD Copy to: NANCY VINCENT MD ? Final Pathologic Diagnosis: ? Breast, right, subareolar, 12 o'clock, excision: - Subareolar abscess. ??See microscopic. Microscopic Description: ? Sections demonstrate a central cavity which is partially lined by reactive squamous epithelium. ??There is adjacent acute inflammatio n and granulation tissue and reactive ductal epithelium. ??Foci of fat necrosi s are also identified. ??These findings are consistent with a subareolar abscess. ??(Dr. Patel)/[facility] Document reviewed and electronically signed by: Grisel Camp MD Report ??Date: 02/23/2004 17:38 By the signature above, the attending physician certifies th at he/she has personally conducted a gross and/or microscopic examin ation of the described specimens and rendered or confirmed the above diagnosis. Specimen(s) Received: ? Right breast abscess 12 o'clock subareolar Clinical History: ? Recurrent abscesses mammary Gross Description: ? Received in formalin labelled Burt and right breast abscess subareolar 12 o'clock is a angel-yellow to white, unoriented portion of fibrofatty tissue measuring 2.6 x 2.0 x 1.5 cm and weighs 5.06 grams. ??On one side, there is a 0.7 x 0.6 x 0.5 cm, angel-brown, irregular, granular defect. ??The cut surfaces surrounding the ulcerative defect are angel-brown and sl ightly softened. ??The remaining cut surfaces are predominantly yellow, lobulated a dipose tissue admixed with a moderate amou nt of dense, angel-white, firm, fibrous tissue. ??The specimen is inked, serially sectioned, and is entirely submitted as follows: BLOCK DUMONT A1-A4 ?Central sections A5, A6 ?End margins, perpendicular sections, ea ch trisected (Vilma Avelar)/elizabeth ?? End of Report Specimen (Source) Anatomical Collection Method Collection Time Re ceived Time Location / / Volume Laterality 02/18/2004 02/19/2004 14:5 6 EST Kvng Hassan MD PATHOLOGY ORDERABLES Performing Organization Address City/State/ZIP Code Phon e Number [facility] [address] [place] [address] SERVICES [facility] [address] [place] [address] documented in this encounter Visit Diagnoses Not on filedocumented in this encounter
--- OUTSIDE RECORDS SUMMARY | 2022-10-07 18:47 | XMS_ITS | Encounter Summary ---
:1955 Author Organization [facility] Address [address] [place] [address] Care Team Providers Name Role Phone Nancy Reynaga MD Primary Care Provider Encounter Details Date Type Department Care Team Description 01/10/2017 Results Only [facility] Alejandro Hassan, DO [address] [facility] [address] [place] [address] (Wo rk) Social History Tobacco [...] [facility] SURGICAL PATHOLOGY Routine 01/10/2017 18:59 Resul ts for this EST procedure are i n the results section. documented in this encounter Results SURGICAL PATHOLOGY (01/10/2017 18:59 EST) Component Value Ref Test Analysis Performed At [facility] Method Time Signature Pathology SURGICAL PATHOLOGY REPORT [facility] Report: Reports generated via electronic interface contain origina l data; CENTER however they are lacking the format of the original report. LABORATORY Caution should be taken when reading/interpreting unformat sobia reports. SERVICES Name: ? NANCY RIVAS ? Accession #: ? [id number] ? : ? 1955 (Age: [age]) ??F ? Collect Date: ? 01/10/2017 ? Location: ? [facility] ? Receive Date: ? 01/10/2017 ? Provider: ALEJANDRO HASSAN DO Copy to: MARY GONZALEZ MD ? Final Pathologic Diagnosis: A. DUODENUM, BIOPSY: - ??Duodenal mucosa with focal foveolar metaplasia and Brunn er's gland hyperplasia consistent with peptic duodenitis. - ??Normal villous architecture with no increased intraepithelial lymphocytes. B. STOMACH, ANTRUM BIOPSY: - ??Gastric antral mucosa with reactive (chemical) gastropat hy. C. ESOPHAGUS, DISTAL, BIOPSY: - ??Squamous mucosa with changes consistent with reflux esop hagitis. D. ESOPHAGUS, PROXIMAL, BIOPSY: - ??Squamous mucosa with no specific pathologic features. E. COLON, SIGNOID, BIOPSY: - ??Hyperplastic polyp. - ??Deeper levels examined. Document reviewed and electronically signed by: MILY CALABRESE MD Report ??Date: 01/13/2017 13:49 By the signature above, the attending physician certifies th at he/she has personally conducted a gross and/or microscopic examin ation of the described specimens and rendered or confirmed the above diagnosis. Specimen(s) Received: A. ??Duodenum B. ??Antrum C. ??Distal esophagus D. ??Proximal esophagus E. ??Sigmoid polyp Clinical History: ? wheat allergy; hx of colon polyps Gross Description: A. ?Received in formalin labelled with proper patie nt identification (initials M, S) and duodenu m are multiple fragments of angel-pink tissue ranging from 0.3-0.6 cm in greatest dimension. T he specimens are submitted entirely in A1-A3. B. ?Received in formalin labelled with proper patie nt identification (initials M, S) and antrum is a single fragment of angel-brown tissue (0.5 x 0.3 x 0.2 cm). The specimen is submitted entirely in B1. C. ?Received in formalin labelled with proper patie nt identification (initials M, S) and distal esophagus are two fragments o f angel-pink tissue measuring 0.4 cm and 0.5 cm in greatest dimension. The specimens are submitted entirely in C1. D. ?Received in formalin labelled with proper patie nt identification (initials M, S) and proximal esophagus are two fragments of colorless tissue (each 0.3 x 0.3 x 0.3 cm). The specimens are submitted entir peggy in D1. E. ?Received in formalin labelled with proper patie nt identification (initials M, S) and sigmoid polyp is a single fragment of angel-pink tissue (0.5 x 0.4 x 0.2 cm). The specimen is submitted entirely in E1. DELORES Allen (ASCP) 01/11/2017 10:01 AM End of Report Specimen Anatomical Collection Method Collection Time Receive d Time (Source) Location / / Volume Laterality 01/10/2017 18:59 01/10/2017 EST 18:59 EST Alejandro Hassan DO PATHOLOGY ORDERABLES Performing Organization Address City/State/ZIP Code Phon e Number [facility] [address] [place] [id number] SERVICES documented in this encounter Visit Diagnoses Not on filedocumented in this encounter Care Teams Checking Clerk Relationship Specialty Start Date End Date Nancy Reynaga MD PCP - General 08/29/11 10/28/[address] [place] [address] [address] [place], [place] [id number] documented as of this encounter
--- OUTSIDE RECORDS SUMMARY | 2022-10-07 18:47 | XMS_ITS | Encounter Summary ---
:1955 Author Organization [facility] Address [address] [place] [address] Care Team Providers Name Role Phone Marine Price Primary Care Provider [phone] Encounter Details Date Type Department Care Team Description 01/28/2020 Abstract [facility] Sweetie Burrell uminuria; Nephrology - Rah Miguel MD CKD (chronic kidney disease), stage II; [place] [facility] Other proteinuria [address] [place] [address] Rehab, [place] [address] (Wo rk) Social History Tobacco [...] as of this encounter Visit Diagnoses Diagnosis Albuminuria Proteinuria CKD (chronic kidney disease), stage II Chronic kidney disease, Stage II (mild) Other proteinuria documented in this encounter Orders Lab Orders Without Results Count Last Ordered Date Fir st Ordered Date SPEP, INCLUDES QUANTITATION OF MONOCLONAL 1 2019 SPIKE documented in this encounter Care Teams Felt Finisher Relationship Specialty Start Date End Date Marine Price FNP PCP - General Neurological Surgery 10/29/19 [address] [place] [address] documented as of this encounter
--- OUTSIDE RECORDS SUMMARY | 2022-10-07 18:47 | XMS_ITS | Encounter Summary ---
:1955 Author Organization [facility] Address [address] [place] [address] Care Team Providers Name Role Phone Unavailable Primary Care Provider Unavailable Encounter Details Date Type Department Care Team Description 02/16/2004 Results Only [facility] - Russel Delaney MD conversion [address] [place] [address] Social History Tobacco Use Types Packs/Day Years Used Date Smoking Tobacco: Never Assessed Sex Assigned at Date Recorded Not on file documented as of this encounter Plan of Treatment Not on filedocumented as of this encounter Procedures Procedure Name Priority Date/Time Associated Diagnosis Comme nts CYTOPATHOLOGY Routine 02/16/2004 0:00 EST Results for this procedure are i n the results section . documented in this encounter Results CYTOPATHOLOGY (02/16/2004 0:00 EST) Component Value Ref Test Analysis Performed At [facility] Method Time Signature Pathology CYTOPATHOLOGY REPORT [facility] Report: [facility] Reports generated via electronic interface contain original data; however they are lacking the format of the original report. Caution should be taken when reading/interpreting unformatte d reports. Name: ? NANCY RIVAS ? Accession #: ? [id number] : ? 1955 (Age: 48) ??F ?Collect Date: ? 02/16/2004 Location: ? [facility] ? Receive Date: ? 02/18/2004 Provider: ?RUSSEL MCKEON MD Copy to: ? Specimen/Source: ?ThinPrep Pap Test, Cervix/Endoce rvix Last Menstrual Period: ? 02/06/04 ? SPECIMEN ADEQUACY ? Satisfactory for Evaluation - transformation zone component present GENERAL CATEGORIZATION ? Negative for Intraepithelial Lesion or Malignancy INTERPRETATION ? Fungal organisms pres ent morphologically consistent with Nereida species. ? Document reviewed and electronically signed by: ? SUKHDEV Arceo(ASCP) ? Report Date: ??02/23/2004 15:00 End of Report Specimen (Source) Anatomical Location Collection Method / Collectio n Time Received Time / Laterality Volume 02/16/2004 02/18/2004 Russel Mckeon MD PATHOLOGY ORDERABLES Performing Organization Address City/State/ZIP Code Phon e Number [facility] [address] [place] [address] SERVICES [facility] [address] [place] [address] documented in this encounter Visit Diagnoses Not on filedocumented in this encounter
--- OUTSIDE RECORDS SUMMARY | 2022-10-07 18:47 | XMS_ITS | Encounter Summary ---
:1955 Author Organization [facility] Address [address] [place] [address] Care Team Providers Name Role Phone Nancy Reynaga MD Primary Care Provider Encounter Details Date Type Department Care Team Description 09/25/2014 Hospital Encounter [facility] - S Unknown, Pro Magui penaloza MD [address] [facility] [phone] [place] [address] (Work) [phone] Social History Tobacco Use Types Packs/Day Years Used Date Smoking Tobacco: Never Assessed Sex Assigned at Date Recorded Not on file documented as of this encounter Discharge Disposition Disposition Code Departure Means Destination Home or Self [place] documented in this encounter Plan of Treatment Not on filedocumented as of this encounter Visit Diagnoses Not on filedocumented in this encounter Care Teams Explosive Technician Relationship Specialty Start Date End Date Nancy Reynaga MD PCP - General 08/29/11 10/28/[address] [place] [address] [place] [address] documented as of this encounter
--- OUTSIDE RECORDS SUMMARY | 2022-10-07 18:47 | XMS_ITS | Encounter Summary ---
:1955 Author Organization [facility] Address [address] [place] [address] Care Team Providers Name Role Phone Unavailable Primary Care Provider Unavailable Encounter Details Date Type Department Care Team Description 12/25/2000 Results Only [facility] - Kvng Hassan MD [place] conversion [address] [place] [address] [place], [place] [id number] [phone] Social History Tobacco Use Types Packs/Day Years Used Date Smoking Tobacco: Never Assessed Sex Assigned at Date Recorded Not on file documented as of this encounter Plan of Treatment Not on filedocumented as of this encounter Procedures Procedure Name Priority Date/Time Associated Diagnosis Comme [facility] SURGICAL PATHOLOGY Routine 12/25/2000 0:00 EST Re sults for this procedure are i n the results section. documented in this encounter Results SURGICAL PATHOLOGY (12/25/2000 0:00 EST) Component Value Ref Test Analysis Performed At [facility] Method Time Signature Pathology SURGICAL PATHOLOGY REPORT DELLA COLBERT Report: Reports generated via electronic interface contain alyce senior data; AURELIO JOHNSON however they are lacking the format of the original report. Caution should be taken when reading/interpreting unformatte d reports. Name: ? NANCY RIVAS ? Accession #: ? [id number] ? : ? 1955 (Age: 45) ??F ? Collect Date: ? 12/25/2000 ? Location: ? [facility] ? Receive Date: ? 12/25/2000 ? Provider: KVNG HASSAN MD Copy to: CEE VINCENT MD ? Final Pathologic Diagnosis: ? Breast, right, abscess, resection: 1. ?Breast tiss ue with abscess and fibrosis consistent with subareolar abscess. 2. 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 ?? Document reviewed and electronically signed by: Win Rebolledo MD Report ??Date: 12/27/2000 15:28 By the signature above, the attending physician certifies th at he/she has personally conducted a gross and/or microscopic examin ation of the described specimens and rendered or confirmed the above diagnosis. Specimen(s) Received: A. ?Breast milk duct, rt breast 3 o' clock areo lar margin Clinical History: ? Recurrent abscesses dilated duct by u/s Gross Description: ? Received in formalin labelled [place]ama and R breast m ilk duct are fragments of yellow-angel soft tissue measuring 3.9 x 2.5 x 2.0 cm. ??A partially disrupted skin is attached to the yellow-angel tissue. ??The fragment of skin measures 2.5 x 0.5 cm. ??The surgical excision margin is inked in black and the specimen is serially section ed to reveal a hemorrhagic area which measures 2.5 x 1.0 x 0.8 cm surrounded by t he adipose tissue. ??Cystic changes are present. ??The entire specimen is submitted in cassette (A1) ??(A7). ??(Dr. Paige)/[facility] End of Report Specimen (Source) Anatomical Collection Method Collection Time Re ceived Time Location / / Volume Laterality 12/25/2000 12/25/2000 15:4 5 EST Kvng Hassan MD PATHOLOGY ORDERABLES Performing Organization Address City/State/ZIP Code Phon e Number [facility] [address] [place] [address] SERVICES [facility] [address] [place] [address] documented in this encounter Visit Diagnoses Not on filedocumented in this encounter
--- OUTSIDE RECORDS SUMMARY | 2022-10-07 18:47 | XMS_ITS ---
:1955 Author Care Team Providers Name Role Phone DR. MARY GONZALEZ Primary Care Provider [phone] DR. MARY GONZALEZ Referring Provider [phone] Allergies Code Code System Name Reaction Severity Status Onset Adhesive ? ? Active ? 15305 RxNorm Lisinopril ? ? Active ? 35803 RxNorm Loratadine ? ? Active ? Eqpucqa-ifv-szr Reductase ? ? Acti ve ? Inhibitors Sulfa (Sulfonamide ? ? Active ? Antibiotics) Medications Name Status Start Date Stop Date ? ? amlodipine 5 mg tablet Active ? Not avail able Take 1 tablet every day by oral route. bupropion HCl XL 150 mg 24 hr tablet, extended Completed ? 02/22/2017 release Bydureon 2 mg/0.65 mL subcutaneous pen injector Active 07/07/2016 Not available Inject 0.65 mL every week by subcutaneous route. diclofenac sodium 75 mg tablet,delayed release Completed ? 08/10/2016 Take 1 tablet twice a day by oral route. fluvoxamine 50 mg tablet Completed 08/10/2016 017 Take 1 tablet twice a day by oral route. Humalog KwikPen (U-100) Insulin 100 unit/mL Completed ? 02/22/2017 subcutaneous Humalog U-100 Insulin 100 unit/mL subcutaneous cartridge Complet ed ? 08/10/2016 Inject by subcutaneous route. hydrocodone 5 mg-acetaminophen 325 mg tablet Completed ? 02/22/2017 ibuprofen 600 mg tablet Completed ? 02/23/20 17 Lantus Solostar U-100 Insulin 100 unit/mL (3 mL) subcutaneous pe n Active ? Not available Lantus 4 units bedime for four, then in creas 1 unti each day until below 150, howver if BG below 100, reduce by 1 units daily.. losartan 100 mg tablet Active ? Not avail able Take 1 tablet every day by oral route. losartan 50 mg tablet Active ? Not availa ble Magtab 84 mg tablet,extended release Completed ? 02/22/2017 Take 1 tablet every day by oral route. metformin 1,000 mg tablet Completed ? 2016 metformin ER 1,000 mg 24 hr tablet,extended release Completed ? 02/22/2017 Take 1 tablet twice a day by oral route with meals for 90 days. metformin ER 500 mg tablet,extended release 24 hr Active 02/22/2017 Not available TAKE 2 TABLETS (1,000 MG) BY ORAL ROUTE Twice DAILY WITH THE EV ENING MEAL Novolog Flexpen U-100 Insulin aspart 100 unit/mL (3 mL) subcutan eous Active ? Not available Inject 8 units 3 times a day by subcutaneous route before meals for 90 days. patients weight is 220# nystatin Active ? Not available apply to affected areas bid nystatin-triamcinolone 100,000 unit/g-0.1 % Active ? Not available topical cream One Touch Ultra Test Strips Active ? Not available use as directed OneTouch Ultra Test strips Active ? Not a vailable OneTouch Ultra2 Meter kit Active ? Not av ailable use as directed paroxetine 40 mg tablet Completed ? 02/23/20 17 polyethylene glycol 3350 17 gram/dose oral Active ? Not available powder sertraline 100 mg tablet Completed ? 017 Tresiba FlexTouch U-100 insulin 100 unit/mL (3 mL) subcutaneous pen Active ? Not available AT THE START OF THERAPY INJECT 24 UNITS UNDER THE SKIN EVERY BEDTIME THEN ADJUST PER PRINTED PROTOCOL UP TO A MAXIMUM OF 40 UNITS Vitamin D3 25 mcg (1,000 unit) tablet Active ? Not available Take 1 tablet every day by oral route. Problems Name Status Onset Date Source ? Polyp of Colon Active 08/10/2016 ? Squamous Cell Carcinoma Active 08/10/2016 ? Type 2 Diabetes Mellitus Active 08/10/2016 ? Hyperlipidemia Active 08/10/2016 ? Hypokalemia Active 08/10/2016 ? Obesity Active 08/10/2016 ? Obsessive-compulsive Disorder Active 08/10/2016 ? Tobacco User Active 08/10/2016 ? Depressive Disorder Active 08/10/2016 ? Obstructive Sleep Apnea Syndrome Active 08/10/2016 ? 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 Essential Hypertension Active 08/10/2016 ? Dental Abscess Active 08/10/2016 ? Gastroesophageal Reflux Disease Active 08/10/2016 ? Small Bowel Obstruction Active 08/10/2016 ? Hidradenitis Suppurativa Active 08/10/2016 ? Osteoarthritis Active 08/10/2016 ? Low Back Pain Active 08/10/2016 ? Sciatica Active 08/10/2016 ? Fatigue Active 08/10/2016 ? Procedures None recorded. Results Lab Results Date Name Specimen Result Interpretation Description Value Range Status Address ? ? Glucose, Blood capillary ? Blood 254 ? ? [facility] - Specialty: Fingerstick, Blood Glucose: mg/dl [address] [facility] ? Glucose, Blood capillary ? Blood 132 ? ? [facility] - Specialty: Fingerstick, Blood Glucose: mg/dl [address] [facility] Past Encounters None recorded. Social History Tobacco Smoking Status Never Smoker Vaccine List None recorded. Plan of Care Reminders Provider Appointments None recorded. ? ? Lab None recorded. ? ? Referral None recorded. ? ? Procedures None recorded. ? ? Surgeries None recorded. ? ? Imaging None recorded. ? ? Vitals 02/22/2017 01:00PM ENDOCRINOLOGY FOLLOW UP 30 Height Weight BMI Blood Pressure 160.02 cm 93.89 kg 36.7 kg/m2 132/64 mm[Hg] 08/10/2016 01:00PM ENDOCRINOLOGY FOLLOW UP 30 Height Weight BMI Blood Pressure 160.02 cm 104.78 kg 40.9 kg/m2 120/64 mm[Hg]
--- OUTSIDE RECORDS SUMMARY | 2022-10-07 18:47 | XMS_ITS | Encounter Summary ---
:1955 Author Organization [facility] Address [address] [place] [address] Care Team Providers Name Role Phone Unavailable Primary Care Provider Unavailable Encounter Details Date Type Department Care Team Description 03/22/2004 Results Only [facility] - Kvng Hassan MD [place] conversion [address] [facility] [address] [place] [address] [place], [place] [address] [phone] Social History Tobacco Use Types Packs/Day Years Used Date Smoking Tobacco: Never Assessed Sex Assigned at Date Recorded Not on file documented as of this encounter Plan of Treatment Not on filedocumented as of this encounter Procedures Procedure Name Priority Date/Time Associated Diagnosis Comme [facility] SURGICAL PATHOLOGY Routine 03/22/2004 0:00 EDT Re sults for this procedure are i n the results section. documented in this encounter Results SURGICAL PATHOLOGY (03/22/2004 0:00 EDT) Component Value Ref Test Analysis Performed At [facility] Method Time Signature Pathology SURGICAL PATHOLOGY REPORT DELLA COLBERT Report: Reports generated via electronic interface contain alyce senior data; AURELIO JOHNSON however they are lacking the format of the original report. Caution should be taken when reading/interpreting unformatte d reports. Name: ? NANCY RIVAS ? Accession #: ? [id number] ? : ? 1955 (Age: 48) ??F ? Collect Date: ? 03/22/2004 ? Location: ? [facility] ? Receive Date: ? 03/22/2004 ? Provider: KVNG HASSAN MD Copy to: NANCY VINCENT MD ? Final Pathologic Diagnosis: ? Colon, 55.0 cm, polypectomy: - Tubular adenoma. Document reviewed and electronically signed by: Jersey Cedeno MD Report ??Date: 03/24/2004 15:57 By the signature above, the attending physician certifies th at he/she has personally conducted a gross and/or microscopic examin ation of the described specimens and rendered or confirmed the above diagnosis. Specimen(s) Received: ? Polyp @ 55.0 cm Clinical History: ? Screening Gross Description: ? Received in Hollande's fixative l abelled [place] and polyp 55.0 cm and ascending colon are two angel -yellow polypoid soft tissue fragments which measure 0.5 x 0.4 x 0.3 cm and 0.7 x 0.6 x 0.5 cm. ??Both specimens are submitted intact in one cassette. ??(Dr. Skaggs)/[facility] End of Report Specimen (Source) Anatomical Collection Method Collection Time Re ceived Time Location / / Volume Laterality 03/22/2004 03/22/2004 15:0 4 EDT Kvng Hassan MD PATHOLOGY ORDERABLES Performing Organization Address City/State/ZIP Code Phon e Number [facility] [address] [place] [address] SERVICES [facility] [address] [place] [address] documented in this encounter Visit Diagnoses Not on filedocumented in this encounter
--- OUTSIDE RECORDS SUMMARY | 2022-10-07 18:47 | XMS_ITS | Encounter Summary ---
:1955 Author Organization [facility] Address [address] [place] [address] Care Team Providers Name Role Phone Marine Price Angela BENITEZ Primary Care Provider [phone] Encounter Details Date Type Department Care Team Description 12/30/[address] [facility] Unknown, Provider, Pathology & Laboratory [facility] [address] [place] [address] [place] [address] Social History Tobacco Use Types [...] Procedure Name Priority Date/Time Associated Comments Diagnosis PTH INTACT Routine 12/30/2019 14:52 Results for this EST procedure are i n the results section. SPEP, INCLUDES Routine 12/30/2019 14:52 Results f or this QUANTITATION OF EST procedure ar e in MONOCLONAL SPIKE the results section. documented in this encounter Results PTH INTACT (12/30/2019 14:52 EST) P athologist Signature Intact PTH 28 19 - 88 12/31/2019 [facility] pg/mL 12:29 EST CENTER LAB[facility]ATORY SERVICES Specimen Anatomical Collection Method Collection Time Receive d Time (Source) Location / / Volume Laterality Blood VENOUS BLOOD / 12/30/2019 14:52 0 Unknown EST 21:52 EST Provider Unknown CHEMISTRY & BLOOD GAS ORDERA BLES Performing Organization Address City/State/ZIP Code Phon e Number [facility] [address] [place] [address] SERVICES (ABNORMAL) SPEP, INCLUDES QUANTITATION OF MONOCLONAL SPIKE (12/30/2019 14:52 EST) Component Value Ref Test Analysis Performed At [facility] gist Range Method Time Signature Total 6.4 6.3 - 12/31/2019 [facility] Protein 8.2 g/dL 14:10 [facility] LABORAT[facility] SERVICES Albumin % 59.0 55.8 - 12/31/2019 [facility] 66.1 % 14:10 [facility] LABORATORY SERVICES Alpha-1 % 4.7 2.9 - 12/31/2019 [facility] 4.9 % 14:10 [facility] LABORATORY SERVICES Alpha-2 % 12.8 (H) 7.1 - 12/31/2019 [facility] 11.8 % 14:10 [facility] SERVICES Beta % 13.4 (H) 8.4 - 12/31/2019 [facility] 13.1 % 14:10 [facility] Gamma % 10.1 (L) 11.1 - 12/31/2019 [facility] 18.8 % 14:10 [facility] SERVICES SPEP Comment No apparent 12/31/2019 [facility] monoclonal protein 14:10 [facility] CENTER seen on serum LABORATORY electrophoresis SERVICES Comment: See scanned/supplementary repor t. Specimen Anatomical Collection Method Collection Time Receive d Time (Source) Location / / Volume Laterality Blood VENOUS BLOOD / 12/30/2019 14:52 0 Unknown EST 21:52 EST Narrative This result has an attachment that is no t available. Provider Unknown MD CHEMISTRY & BLOOD GAS ORDERA BLES Performing Organization Address City/State/ZIP Code Phon e Number [facility] [address] [place] [address] SERVICES documented in this encounter Visit Diagnoses Not on filedocumented in this encounter Care Teams Vessel Scrapper Relationship Specialty Start Date End Date Marine Price FNP PCP - General Neurological Surgery 10/29/19 [address] [place], [place] [id number] documented as of this encounter
--- OUTSIDE RECORDS SUMMARY | 2022-10-07 18:47 | XMS_ITS | Encounter Summary ---
:1955 Author Organization [facility] Address [address] [place] [address] Care Team Providers Name Role Phone Marine Price EMMANUEL Primary Care Provider [phone] Reason for Visit Reason Comments Proteinuria Encounter Details Date Type Department Care Team Description 07/27/2020 Telemedicine [facility] Sweetie Burrell CKD (chronic kidney disease), stage II (Primary Dx); Nephrology - Farhat Miguel MD Diabetes mellitus due to underlying cond ition with stage 2 chronic kidney disease, with long-term current use of insulin ([facility]); [facility] Other p roteinuria; [facility] [place]ension, [place] [address] Rehab, [place] [address] (Wo rk) Social History Tobacco Use Types Packs/Day Years Used Date Smoking Tobacco: Every Day Cigarettes 1 Smokeless Tobacco: Never Alcohol Use Standard Drinks/Week Comments No 0 (1 standard drink = 0.6 oz pure alcoho l) Sex Assigned at Date Recorded Not on file documented as of this encounter Progress Notes Sweetie Burrell MD - 07/27/2020 1430 EDT This Nephrology Visit/Progress note was conducted over the telephone Subjective: Ms. Lopez was last seen in clinic in May. At that time, no new labs were available. We decided to revisit in one month after labs were done. Since that time she has been doing okay with nonew issues other than dealing with stress and diabetes management. Her BP had been getting as high 180/100 due to stress. PCP added back amlodipine. Lamictal recently decreased back down to 100 mg Currently taking: Losartan 100 Spironolactone 12.5 Amlodipine 5 mg Blood pressures: They had been 160/80-90 (120/79 when she was not stressed) More recently home blood pressures are 120s-130s/70s Weight - has been 210 lbs . Stress due to the world situation. Speaks to a counselor. Ms. Thacker (psychiatric). Trying to exercise but legs are bad. Uses naproxen rarely Gets pain shot in hip when pain [...] reviewed and if relevant notable for the followin07/16/20 Na 140 K 4.4 CL 105 CO2 28 BUN 19 Creatinine 0.7 eGFR 84 Calcium 9.6 Phos 4.4 Albumin 3.6 HGBA1c 9.2 Urine PCR 2.67 mg/mg Urinalysis No results found for this visit on 07/27/20. No results found for: CREATININE, CALCGFR Lab [...] further workup is indicated at this time. Recent labs show normal/stable renal function and urine protein to creatinine ratio of 2.67 mg/mg. Blood pressure does seem to be at goal on current regimen. I will wait for the results of her urine protein studies before making a decision about when to nextsee her in clinic. Plan: - Labs in the next few weeks (neph profile, urine protein studies) - More intense monitoring of BP (different times of day) over the next month - No medication changes recommended today. Follow-up in 6 months Labs to be ordered prior to next visit: neph profile, UA, urine protein to creatinine ratio Visit Diagnoses: 1. CKD (chronic kidney disease), stage II 2. Diabetes mellitus due to underlying condition with stage 2 chronic kidney disease, with long-termcurrent use of insulin ([facility]) 3. Other proteinuria 4. Hypertension, [...] or mental health care. Sweetie Burrell MD 08/04/20 documented in this encounter Plan of Treatment [...] type documented in this encounter Care Teams Time Stamp Assembler Relationship Specialty Start Date End Date Marine Price FNP PCP - General Neurological Surgery 10/29/[address] [place] [id number] documented as of this encounter
--- OUTSIDE RECORDS SUMMARY | 2022-10-07 18:47 | XMS_ITS | Encounter Summary ---
:1955 Author Organization [facility] Address [address] [place] [address] Care Team Providers Name Role Phone Unavailable Primary Care Provider Unavailable Encounter Details Date Type Department Care Team Description 07/16/2007 Results Only [facility] - Kvng Hassan MD [employer] [address] [place] [address] [place], [place] [id number] [phone] Social History Tobacco Use Types Packs/Day Years Used Date Smoking Tobacco: Never Assessed Sex Assigned at Date Recorded Not on file documented as of this encounter Plan of Treatment Not on filedocumented as of this encounter Procedures Procedure Name Priority Date/Time Associated Diagnosis Comme [facility] SURGICAL PATHOLOGY Routine 07/16/2007 0:00 EDT Re sults for this procedure are i n the results section. documented in this encounter Results SURGICAL PATHOLOGY (07/16/2007 0:00 EDT) Component Value Ref Test Analysis Performed At [facility] Method Time Signature Pathology SURGICAL PATHOLOGY REPORT DELLA COLBERT Report: Reports generated via electronic interface contain alyce senior data; AURELIO JOHNSON however they are lacking the format of the original report. Caution should be taken when reading/interpreting unformatte d reports. Name: ? NANCY RIVAS ? Accession #: ? [id number] ? : ? 1955 (Age: 52) ??F ? Collect Date: ? 07/16/2007 ? Location: ? [facility] ? Receive Date: ? 07/16/2007 ? Provider: KVNG HASSAN MD Copy to: NANCY VINCENT MD ? Final Pathologic Diagnosis: ? Rectum, biopsy: - Fragments of hyperplastic polyp(s), inflamed. Document reviewed and electronically signed by: Genet Kim MD Report ??Date: 07/19/2007 15:13 By the signature above, the attending physician certifies th at he/she has personally conducted a gross and/or microscopic examin ation of the described specimens and rendered or confirmed the above diagnosis. Specimen(s) Received: ? Bx rectum Clinical History: ? Hx polyp in ascending colon Gross Description: ? Received in Hollande' s fixative labelled Rivas and bx rectum are six angel-pink irregular soft tissues ranging from 0.2 x 0.2 x 0.2 cm to 0.3 x 0.3 x 0.2 cm. The specimen is entirely submitt ed as (A1) and (A2). (Vilma Cary/lesvia End of Report Specimen (Source) Anatomical Collection Method Collection Time Re ceived Time Location / / Volume Laterality 07/16/2007 07/16/2007 0:34 EDT Kvng Hassan MD PATHOLOGY ORDERABLES Performing Organization Address City/State/ZIP Code Phon e Number [facility] [address] [place] [address] SERVICES [facility] [address] [place] [address] documented in this encounter Visit Diagnoses Not on filedocumented in this encounter
--- OUTSIDE RECORDS SUMMARY | 2022-10-07 18:47 | XMS_ITS | Encounter Summary ---
:1955 Author Organization [facility] Address [address] [place] [address] Care Team Providers Name Role Phone Nancy Reynaga MD Primary Care Provider Encounter Details Date Type Department Care Team Description 01/10/2017 Hospital Encounter [facility]- [place] Unknown, Provider, [facility] [address] [address] [facility] [phone] [place] [address] (Work) [phone] Social History Tobacco Use Types Packs/Day Years Used Date Smoking Tobacco: Every Day Cigarettes 1 Smokeless Tobacco: Never Alcohol Use Standard Drinks/Week Comments No 0 (1 standard drink = 0.6 oz pure alcoho l) Sex Assigned at Date Recorded Not on file documented as of this encounter Medications at Time of Discharge Medication Sig Dispensed Refills Start Date End Date blood glucose (ONE 1 Strip by misc 0 TOUCH ULTRA TEST) test (non-drug; combo strips route) route 3 times daily. cholecalciferol, Take 1,000 Units by 0 Vitamin D3, 1,000 unit mouth daily. tablet losartan (COZAAR) 50 mg Take 100 mg by mouth 0 tablet daily. nystatin-triamcinolone Apply topically 2 0 (MYCOLOG II) cream times daily. amLODIPine (NORVASC) 5 Take 5 mg by mouth 0 12/30/2019 mg tablet daily. BUPROPION HCL Take by mouth. 0 019 (WELLBUTRIN ORAL) insulin glargine Inject 40 Units into 0 10/28/2019 (LANTUS SOLOSTAR) 100 the skin at bedtime. unit/mL (3 mL) injection pen insulin lispro Inject 2-12 Units into 0 10/28/2019 (HUMALOG) 100 unit/mL the skin 3 times daily vial before meals. metFORMIN (GLUCOPHAGE) Take 1,000 mg by mouth 0 01/11/2021 1,000 mg tablet 2 times daily. paroxetine (PAXIL) 40 Take 20 mg by mouth 0 10/28/2019 mg tablet daily. documented as of this encounter Discharge Disposition Disposition Code Departure Means Destination Home or Self Long-Term documented in this encounter Plan of Treatment Not on filedocumented as of this encounter Visit Diagnoses Not on filedocumented in this encounter Care Teams Fireworks Inspector Relationship Specialty Start Date End Date Nancy Reynaga MD PCP - General 08/29/11 10/28/[address] [place] [place] [address] [place] [address] documented as of this encounter
[2022-10-07 19:43] LABS: HCT 34.2 % (36.0-46.0); HGB 10.4 g/dL (11.2-15.7); MCH 29.1 pg (27.0-33.0); MCHC 30.4 % (32.0-36.0); MCV 96 fL (80-95); MPV 10.9 fL (8.0-11.0); Platelet Count 288 10^3/uL (130-400); RBC 3.57 10^6/uL (3.93-5.22); RDW 13.2 % (11.7-14.6); RDW-SD 46.1 fL; WBC 7.66 10^3/uL (4.4-10.8)
[2022-10-07 19:55] LABS: ALT 19 U/L (14-59); AST 17 U/L (15-37); Albumin 3.5 g/dL (3.4-5.0); Alkaline Phosphatase 109 U/L (46-116); Anion Gap 8.3 mmol/L (3-11); BUN 39 mg/dL (7-18); Bilirubin, Total 0.3 mg/dL (0.2-1.0); CO2 25.7 mmol/L (21.0-32.0); CREATININE 1.7 mg/dL (0.55-1.02); Calcium 8.3 mg/dL (8.5-10.1); Chloride 102 mmol/L (98-107); Estimated GFR 32.46 (mL/min/1.73m2); Glucose 200 mg/dL (74-106); Sodium 136 mmol/L (136-145); Total Protein 7.1 g/dL (6.4-8.2)
[2022-10-07 20:01] LABS: Hemoglobin A1C 6.2 % (<5.7)
== END 2022-10-07 18:32 | disposition home or self-care (01) ==
LOC: NCHCN 18:31
PROVIDERS: PCP Physician Assistant; Visit Provider Physician Assistant
DX: E11.9 Type 2 diabetes mellitus without complications (principal); N28.89 Other specified disorders of kidney and ureter
CPT/HCPCS: 80053; 85027; 83036

== ENCOUNTER 2022-11-08 09:23 | Outpatient (CLI) | payer BC, MEDICARE, SELFPAY ==
[2022-11-08 08:49] LABS: Abs Immature Grans 0.07 10^3/uL (0.0-0.06); Absolute Basophil Count 0.06 10^3/uL (0.0-0.2); Absolute Eosinophil Count 0.32 10^3/uL (0.0-0.7); Absolute Lymphocyte Count 1.49 10^3/uL (1.2-3.4); Absolute Monocyte Count 0.74 10^3/uL (0.1-0.8); Absolute Neutrophil Count 3.48 10^3/uL (1.2-6.7); Eosinophils % 5.2; HCT 35.7 % (36.0-46.0); Immature Grans % 1.1; Lymphocytes % 24.2; MCH 28.7 pg (27.0-33.0); MCHC 30.8 % (32.0-36.0); MCV 93 fL (80-95); MPV 10.9 fL (8.0-11.0); Neutrophils % 56.5; Platelet Count 223 10^3/uL (130-400); RBC 3.83 10^6/uL (3.93-5.22); RDW 12.5 % (11.7-14.6); RDW-SD 42.3 fL; WBC 6.16 10^3/uL (4.4-10.8)
[2022-11-08 09:04] LABS: ALT 29 U/L (14-59); AST 25 U/L (15-37); Albumin 3.1 g/dL (3.4-5.0); Alkaline Phosphatase 129 U/L (46-116); Anion Gap 6.5 mmol/L (3-11); BUN 28 mg/dL (7-18); Bilirubin, Total 0.3 mg/dL (0.2-1.0); CO2 27.5 mmol/L (21.0-32.0); CREATININE 1.6 mg/dL (0.55-1.02); Calcium 9.4 mg/dL (8.5-10.1); Chloride 100 mmol/L (98-107); Estimated GFR 34.91 (mL/min/1.73m2); Glucose 155 mg/dL (74-106); Potassium 4.9 mmol/L (3.5-5.1); Sodium 134 mmol/L (136-145); Total Protein 7.4 g/dL (6.4-8.2)
== END 2022-11-08 09:24 | disposition home or self-care (01) ==
LOC: LBO 09:25
PROVIDERS: Nurse Practitioner Adult Health; PCP Physician Assistant; Visit Provider Internal Medicine
DX: C79.10 Secondary malignant neoplasm of unspecified urinary organs (principal)
CPT/HCPCS: 36415; 80053; 85025

== ENCOUNTER 2022-11-15 02:21 | Outpatient (CLI) | payer BC, MEDICARE, SELFPAY ==
[2022-11-15 10:37] LABS: Abs Immature Grans 0.06 10^3/uL (0.0-0.06); Absolute Basophil Count 0.07 10^3/uL (0.0-0.2); Absolute Lymphocyte Count 1.65 10^3/uL (1.2-3.4); Absolute Monocyte Count 0.77 10^3/uL (0.1-0.8); Absolute Neutrophil Count 6.51 10^3/uL (1.2-6.7); Basophils % 0.7; Eosinophils % 3.2; HCT 35.3 % (36.0-46.0); HGB 10.9 g/dL (11.2-15.7); Immature Grans % 0.6; Lymphocytes % 17.6; MCH 28.5 pg (27.0-33.0); MCHC 30.9 % (32.0-36.0); MCV 92 fL (80-95); MPV 10.9 fL (8.0-11.0); Monocytes % 8.2; Neutrophils % 69.7; Platelet Count 243 10^3/uL (130-400); RBC 3.83 10^6/uL (3.93-5.22); RDW 12.7 % (11.7-14.6); RDW-SD 42.8 fL; WBC 9.36 10^3/uL (4.4-10.8)
[2022-11-15 10:52] LABS: ALT 22 U/L (14-59); AST 17 U/L (15-37); Albumin 3.1 g/dL (3.4-5.0); Alkaline Phosphatase 148 U/L (46-116); Anion Gap 6.1 mmol/L (3-11); BUN 26 mg/dL (7-18); Bilirubin, Total 0.3 mg/dL (0.2-1.0); CO2 25.9 mmol/L (21.0-32.0); CREATININE 1.6 mg/dL (0.55-1.02); Chloride 102 mmol/L (98-107); Estimated GFR 34.91 (mL/min/1.73m2); Glucose 142 mg/dL (74-106); Potassium 4.9 mmol/L (3.5-5.1); Sodium 134 mmol/L (136-145); Total Protein 7.2 g/dL (6.4-8.2)
== END 2022-11-15 02:22 | disposition home or self-care (01) ==
LOC: LBO 02:21
PROVIDERS: PCP Physician Assistant; Visit Provider Nurse Practitioner Adult Health
DX: C79.10 Secondary malignant neoplasm of unspecified urinary organs (principal)
CPT/HCPCS: 36415; 80053; 85025

== ENCOUNTER 2022-11-20 18:18 | Emergency (ER) | payer BC, MEDICARE, SELFPAY ==
[2022-11-20] VITALS (23 sets, daily range): BP systolic 142–185; BP diastolic 70–93; PULSE 65–115; RESP 12–22; TEMP 36.6–37.7; O2SAT 94
--- NOTE | 2022-11-20 18:30 | RT.EKG_ITS ---
APPROVED REPORT Exam: Resting ECG Reason for Exam: sob Patient Location: E HR:106 bpm ECG Measurements Heart Rate 106 AXIS OK 158 P 45 QRSd 134 QRS 55 QT 380 T -30 QTc 504 Conclusion Sinus tachycardia...rate> 99 Right bundle branch block...QRSd>120, terminal axis(90,270) Nonspecific repol abnormality, lateral leads...ST dep, T neg, I aVL V5 V6. Sinus. Normal axis. RBBB. No STEMI. I have reviewed and interpreted ECG and agree with software generated interpretation.
--- NOTE | 2022-11-20 19:00 | DI.RAD_ITS ---
Exam(s) XR PORTABLE CHEST AP EXAM: XR PORTABLE CHEST AP CLINICAL HISTORY: sob. TECHNIQUE: 2D digital imaging was performed. COMPARISON: CR,XR XR CHEST 2V PA LATERAL from 10/27/2021 FINDINGS: Single AP portable view. There is now a right supra clavi in Port-A-Cath. Its distal tip is in the upper right atrium. Heart size is upper normal. The mediastinum is not widened. There is platelike atelectasis in both lung bases. More prominent on the right side. No confluent i nfiltrates. No obvious pleural effusions. IMPRESSION: Bibasilar platelike atelectasis. More prominent on the right side. Some of this bilateral findings were evident on 10/27/2021. No pleural effusions. Distal tip of right sided Port-A-Cath is in the upper right atrium. DATA REPOSITORY: RADIATION DOSE DELIVERED:
--- NOTE | 2022-11-20 19:06 | W.ED.GENAD ---
Discharge Plan Disposition Patient Disposition: Home Condition: Stable Discharge Details Clinical Impression: CHF (congestive heart failure), Dyspnea Primary Care Provider: Derek Torres ED Provider: Erick Rodríguez Home Meds and New Rx's Prescriptions: Continued naloxone [Narcan] 4 mg/actuation spray,non-aerosol 1 spray intranasal Q2-3M PRN (Reason: opioid overdose) Qty: 2 0RF Rx Instructions: spray 1 dose into ONE nostril; alternate nostrils w each dose until help arrives cholecalciferol (vitamin D3) 1,000 UNIT capsule 1,000 iu PO QAM Qty: 100 nystatin-triamcinolone 15 GM cream 1 applic Topical BID PRN PRNQty: 12 (DME) OneTouch Ultra Test 1 EACH strip 1 ea Miscellaneous ac and hs Qty: 400 Rx Instructions: dx: E11.65 on insulin with labile blood sugars and risk for hypoglycemia prochlorperazine maleate 10 mg tablet 10 mg PO Q6H PRN Label Comments: TAKE ONE TABLET BY MOUTH EVERY 6 HOURS NEEDED FOR NAUSEA never had to use sennosides [senna] 8.6 mg tablet 17.2 mg PO BID Label Comments: TAKE TWO TABLETS BY MOUTH TWICE A DAY Fleet Enema 19-7 gram/118 mL Enema 118 ml HI ONCE PRN furosemide 20 mg tablet 20 mg PO DAILY PRN losartan 100 mg tablet 100 mg PO DAILY Label Comments: TAKE ONE TABLET BY MOUTH EVERY DAY docusate sodium 100 mg Capsule 100 mg PO DAILY PRN polyethylene glycol 3350 17 gram powder in packet 17 g PO DAILY PRN PRN Label Comments: USE 1 PACKET DAILY IN 8OZ OF LIQUID NEEDED FOR CONSTIPATION ondansetron HCl 8 mg tablet 8 mg PO Q8H PRN PRN Label Comments: TAKE ONE TABLET BY MOUTH EVERY 8 HOURS NEEDED FOR NAUSEA Eliquis 5 mg tablet 5 mg PO BID Qty: 70 0RF Rx Instructions: take 10 mg twice daily for 7 days, then 5 mg twice daily zoledronic acid 4 mg/5 mL solution IV Trodelvy 180 mg Recon Soln Trodelvy 180 mg Recon Soln 180 mg IV Tresiba FlexTouch U-100 100 UNIT/1 ML insulin pen 56 unit SQ QAM insulin lispro [Humalog KwikPen Insulin] 100 unit/mL insulin pen 0 - 6 unit SUBCUT PRN PRN Label Comments: INJECT SUBCUTANEOUSLY PER SLIDING SCALE THREE TIMES A DAY BEFORE MEALS 101TO 150 2 UNITS 151 TO 200 4 UNITS 201 TO 250 6 UNITS 251 TO 3 hydromorphone 2 mg tablet 2 mg PO Q6H PRNQty: 8 0RF metoprolol tartrate 25 mg tablet 25 mg PO BID acetaminophen 325 mg Tablet 325 mg PO PRN PRN sucralfate 1 gram Tablet 1 g PO QID chlorthalidone 25 mg Tablet 25 mg PO diphenhydramine HCl 25 mg Tablet 25 mg PO Q6H hydrocortisone 2.5 % Cream 1 applic TOPICAL BID lidocaine 5 % adhesive patch,medicated 1 patch topical DAILY Qty: 30 0RF Rx Instructions: leave on most painful area for up to 12 hrs Discharge Instructions Instructions: Dyspnea (ED), Heart Failure (ED) Additional Instructions: Work-up in the ER reveals congestive heart failure. You declined the 500 cc IV fluid bolus after at the CT with contrast. You were given IV magnesium and Lasix. Please take 20 mg of Lasix tomorrow afternoon. Please watch for new or worsening symptoms and return to the ER for any concerns. I have placed you on the career technical education teacher list to help expedite outpatient primary care and oncology follow-up. Please make your oncologist aware of your ER visit on Monday before your treatment. You will need to have your magnesium, renal function, and BNP monitored carefully. Medical Decision Making This is a 67-year-old female, past medical history that includes hypertension, anemia, anxiety, CKD, CHF, thrombocytopenia, diabetes, currently being treated for recurrent urothelial carcinoma, had her most recent chemo treatment on , presents for chest pressure and shortness of breath over the past 3 days. She presents appearing anxious, pulse of 108, lungs are slightly diminished bilaterally, 1+ nonpitting bilateral lower extremity edema. Patient states that after having this dose of her chemo treatment previously she did have CHF. Plan is to obtain IV access, initiate cardiac work-up including a D-dimer given her hypercoagulable state. Laboratory values reveal no evidence of leukocytosis, anemia, thrombocytopenia. D-dimer 1136. Electrolytes unremarkable. Creatinine is 1.5 with a GFR of 37.72. Magnesium 1.7. BNP 4647. Troponin less than 50. TSH 134. Plan to provide 1 g IV mag. Given her tachycardia, shortness of breath, elevated D-dimer, I do believe obtaining CTA of the chest is prudent. Creatinine is 1.5 with a GFR of 37.72 which is baseline. When she returns from CT we will provide a 500 cc bolus of normal saline. Chest x-ray does not reveal any obvious pleural effusion. Heart rate is now in the 90s. O2 sat remains 95% on room air. She no longer appears anxious. We did discuss the wound on her left breast. Given she is afebrile, no leukocytosis, do not believe that initiating of oral antibiotics is necessary. I recommend continuing the therapy set forth by her PCP and careful observation. CTA unremarkable. Discussed CT results with patient and family. Discussed options. Patient reports that she feels well enough for discharge home. She reports that she feels as though her breathing is already improving. She would like to eat and drink and take nightly medications. She is receiving her IV magnesium. Given her renal status, just received IV contrast, will give fluid bolus of 500 cc. We will also provide 40 IV Lasix now. Patient has 20 mg tablets of Lasix at home. She can take a single tablet tomorrow as well. She is scheduled to be seen by her oncologist and have another treatment on Monday. We discussed the importance of having discussing her ER visit and ongoing symptoms. She needs to have her magnesium, BNP, and renal function rechecked and monitored carefully. I have also placed her on the care management list to help expedite outpatient follow-up through her oncology team and PCP. Patient refused be 500 cc bolus of IV fluid and is demanding discharge. Standard discharge and return precautions were provided. Patient understands, is agreeable to this plan, and has no additional questions or concerns upon discharge. This documentation was generated using Five[employer]ation system, please disregard any oddities of phrase or misspellings. Medical Records Medical records reviewed: Yes I reviewed the patient's medical records. Imaging Data Radiologic Study: Attestation: I personally reviewed and interpreted this imaging study as follows: Imaging: X-Ray Radiologist's impression: PROCEDURE INFORMATION: Exam: XR Chest Exam date and time: 11/20/2022 7:17 PM Age: 67 years old Clinical indication: Shortness of breath; Patient HX: SOB TECHNIQUE: Imaging protocol: Radiologic exam of the chest. Views: 1 view. Other technique: Portable exam. COMPARISON: CR XR CHEST 2V PA LATERAL 10/27/2021 5:17 PM FINDINGS: Tubes, catheters and devices: Right Port-A-Cath in place. Lungs: Mild bibasilar atelectasis is not significantly changed prior study allowing for slight inspiratory differences. Are some minimal increased markings at the right lung base compared to the left and compared to previous. Pleural spaces: No pneumothorax. Heart/Mediastinum: Cardiomegaly.. Diaphragm: There is mild elevation of the right hemidiaphragm. Bones/joints: Unremarkable. IMPRESSION: Mild right lower lobe atelectasis. Radiologic Study #2: Attestation: I personally reviewed and interpreted this imaging study as follows: Imaging: CT Scan Radiologist's impression: PROCEDURE INFORMATION: Exam: CTA Chest With Contrast Exam date and time: 11/20/2022 8:41 PM Age: 67 years old Clinical indication: Shortness of breath and other: Tachy, CA; Patient HX: Tachy, SOB, CA TECHNIQUE: Imaging protocol: Computed tomographic angiography of the chest with contrast. 3D rendering (Not supervised by radiologist): MIP and/or 3D reconstructed images were created by the technologist. Radiation optimization: All CT scans at this facility use at least one of these dose optimization techniques: automated exposure control; mA and/or kV adjustment per patient size (includes targeted exams where dose is matched to clinical indication); or iterative reconstruction. Contrast material: OMNIPAQUE 350; Contrast volume: 82 ml; Contrast route: INTRAVENOUS (IV); COMPARISON: CT CHEST PE CTA 03/19/2021 4:36 PM FINDINGS: Pulmonary arteries: Normal. No pulmonary emboli. Aorta: Moderate to severe atherosclerotic change again noted in the vasculature. There may be some minimal ulcerated plaque involving the distal descending thoracic aorta. Lungs: Minimal patchy hazy ground-glass change seen in the lungs, slightly increased in conspicuity compared to previous study. Pleural spaces: Unremarkable. No pneumothorax. No pleural effusion. Heart: No change cardiomegaly. Small pericardial effusion. Coronary arteries: Coronary artery calcifications/stents again identified. Lymph nodes: Unremarkable. No enlarged lymph nodes.Gallbladder and bile ducts: Gallbladder attenuation increased, uncertain etiology. The gallbladder is incompletely imaged. Bones/joints: Unremarkable. No acute fracture. Soft tissues: Unremarkable. IMPRESSION: No evidence for pulmonary embolus. ECG Data Attestation: I personally reviewed and interpreted this ECG (s) as follows: Interpretation: Sinus tachycardia, ventricular rate of 106. Right bundle branch block. Normal axis. No STEMI. HPI General Mode of arrival: wheelchair. Date/Time Provider Initiated Documentation: 11/20/22 18:27. Limitations to Documentation: no limitations. Information obtained by: patient and family. HPI Narrative: This is a 67-year-old female, past medical history that includes hypertension, anemia, anxiety, CKD, CHF, thrombocytopenia, diabetes, currently being treated for recurrent urothelial carcinoma, had chemotherapy the previous 2 Tuesdays, reports a increased dose this past Monday presents for a few day history of what she describes as chest pressure, shortness of breath, feels like her previous CHF exacerbation. Patient reports that she has had similar symptoms like this with a high dose of her chemotherapy. She took a single dose of 20 mg Lasix this morning but does not report significant improvement. She denies recent illness, headache, chest pain, cough, abdominal pain. She does report decreased appetite, some nausea, increased anxiety. She also reports mild edema to bilateral legs. She denies any sick exposures. Related Data Home Medications Medication Instructions Recorded Confirmed cholecalciferol (vitamin D3) 25 1,000 iu PO QAM #100 tab-caps 07/31/14 11/20/22 mcg (1,000 unit) capsule nystatin-triamcinolone 100,000 1 applic topical BID PRN PRN ##12 09/01/16 11/20/22 unit/g-0.1 % topical cream blood sugar diagnostic (OneTouch #400 strips 10/18/16 09/01/22 Ultra Test strips) prochlorperazine maleate 10 mg 10 mg PO Q6H PRN 03/19/21 11/20/22 tablet sennosides 8.6 mg tablet (senna) 17.2 mg PO BID 03/19/21 11/20/22 sodium phosphates 19 gram-7 118 ml HI ONCE PRN 03/20/21 09/01/22 gram/118 mL enema (Fleet Enema) insulin degludec 100 unit/mL (3 56 unit SQ QAM 05/19/21 09/01/22 mL) subcutaneous pen (Tresiba FlexTouch U-100 insulin) insulin lispro 100 unit/mL 0 - 6 unit subcut PRN PRN 05/19/21 11/20/22 subcutaneous pen (Humalog KwikPen (U-100) Insulin) docusate sodium 100 mg capsule 100 mg PO DAILY PRN 08/11/21 09/01/22 furosemide 20 mg tablet 20 mg PO DAILY PRN 08/11/21 09/01/22 losartan 100 mg tablet 100 mg PO DAILY 08/11/21 11/20/22 ondansetron HCl 8 mg tablet 8 mg PO Q8H PRN PRN 10/27/21 11/20/22 polyethylene glycol 3350 17 gram 17 g PO DAILY PRN PRN 10/27/21 11/20/22 oral powder packet apixaban 5 mg tablet (Eliquis) 5 mg PO BID #70 tabs 10/28/21 11/20/22 naloxone 4 mg/actuation nasal 1 spray intranasal Q2-3M PRN 11/22/21 11/20/22 spray (Narcan) opioid overdose #2 ea hydromorphone 2 mg tablet 2 mg PO Q6H PRN #8 tabs 01/16/22 11/20/22 metoprolol tartrate 25 mg tablet 25 mg PO BID 01/25/22 11/20/22 acetaminophen 325 mg tablet 325 mg PO PRN PRN 09/01/22 09/01/22 chlorthalidone 25 mg tablet 25 mg PO 09/01/22 diphenhydramine HCl 25 mg tablet 25 mg PO Q6H 09/01/22 11/20/22 hydrocortisone 2.5 % topical cream 1 applic topical BID 09/01/22 11/20/22 lidocaine 5 % topical patch 1 patch topical DAILY #30 ea 09/01/22 sucralfate 1 gram tablet 1 g PO QID 09/01/22 11/20/22 sacituzumab govitecan-hziy 180 mg 180 mg IV 11/20/22 intravenous solution (Trodelvy) sacituzumab govitecan-hziy 180 mg mg 11/20/22 intravenous solution (Trodelvy) zoledronic acid 4 mg/5 mL ml IV 11/20/22 11/20/22 intravenous solution Previous Rx's Medication Instructions Recorded apixaban 5 mg tablet (Eliquis) 5 mg PO BID #70 tabs 10/28/21 naloxone 4 mg/actuation nasal 1 spray intranasal Q2-3M PRN 11/22/21 spray (Narcan) opioid overdose #2 ea hydromorphone 2 mg tablet 2 mg PO Q6H PRN #8 tabs 01/16/22 lidocaine 5 % topical patch 1 patch topical DAILY #30 ea 09/01/22 Allergies Allergy/AdvReac Type Severity Reaction Status Date / Time Sulfa (Sulfonamide Allergy Severe rash Verified 09/01/22 10:06 Antibiotics) adhesive Allergy Intermediate Skin Rash Verified 09/01/22 10:06 exenatide microspheres Allergy Unknown Verified 09/01/22 10:06 [From Bydureon] gabapentin Allergy Verified 09/01/22 10:06 lorazepam [From Ativan] Allergy Skin Rash Unverified 09/01/22 10:06 loratadine AdvReac Severe MADE HER Verified 09/01/22 10:06 FEEL HYPER celecoxib [From Celebrex] AdvReac Intermediate Pt states Verified 09/01/22 10:06 side effects unspecified gluten AdvReac Intermediate Diarrhea Verified 09/01/22 10:06 lactose AdvReac Intermediate Diarrhea Verified 09/01/22 10:06 atorvastatin AdvReac Unverified 09/01/22 10:06 hydrocodone AdvReac Other (See Unverified 09/01/22 10:06 Comment) simvastatin AdvReac Unverified 09/01/22 10:06 Sdvugjh-DRG-OnS Reductase AdvReac Verified 09/01/22 10:06 Inhibitor [Mplgmgn-Hdy-Rie Reductase Inhibitor] Tegaderm Allergy Dermatitis Uncoded 09/01/22 10:06 General Stated Complaint: SOB NEHA: 3 Review of Systems Constitutional Constitutional: Denies fatigue, Denies fever(s) and Reports weakness (Generalized) ENT Ears, Nose, Mouth, and Throat: Denies neck pain Cardiovascular Cardiovascular: Denies chest pain, Reports dyspnea and Reports other (Chest pressure) Respiratory Respiratory: Denies cough and Reports dyspnea Gastrointestinal Gastrointestinal: Denies abdominal pain, Reports nausea and Denies vomiting Genitourinary Genitourinary: Denies dysuria Musculoskeletal Musculoskeletal: Denies back pain and Denies neck pain Integumentary/Breasts Skin/Breast: Denies rash Neurologic Neurologic: Reports weakness (Generalized) Psychiatric Psychiatric: Reports anxiety Endocrine Endocrine: Denies fatigue Hematologic/Lymphatic Hematologic/Lymphatic: Reports easy bleeding and Reports easy bruising PFSH All Active Problems (Updated 11/20/22 @ 22:16 by DELORES Palm) CHF (congestive heart failure) (Chronic) Dyspnea (Acute) Muscle pain (Chronic) Bone tumor (Acute) DVT (deep venous thrombosis) (Chronic) Mental health disorder (Chronic) Folate deficiency (Acute) Acute kidney injury superimposed on chronic kidney disease (Acute) Acute on chronic anemia (Acute) Hypertension (Chronic) Anxiety (Chronic) Constipation (Acute) Reflux esophagitis (Acute) Acute on chronic diastolic CHF (congestive heart failure), NYHA class 1 (Chronic) Chest pain (Acute) Pericardial effusion (Acute) Elevated troponin (Acute) Acute anemia (Acute) Thrombocytopenia (Acute) Bandemia (Acute) Diastolic heart failure (Acute) Peripheral neuropathy (Chronic) Superficial thrombophlebitis of right upper extremity (Acute) Urothelial carcinoma (Acute) Acute pulmonary edema (Acute) IDDM (insulin dependent diabetes mellitus) (Chronic) Discharge planning issues (Acute) DVT prophylaxis (Acute) Ureteral cancer (Acute) Acute CHF (Acute) Leukocytosis (Acute) Bilateral lower extremity edema (Acute) Pericardial effusion (Acute) UTI (urinary tract infection) (Acute) Kidney mass (Acute) Flank pain (Acute) Medical History Depression Diabetes Gastritis and duodenitis GERD (gastroesophageal reflux disease) History of colon polyps Hyperlipidemia Obesity Osteoarthritis Palliative care encounter Surgical History Abdominal hysterectomy (~11/2010) for fibroid Bilateral salpingectomy with oophorectomy Biopsy of breast cyst excised-left section Colonoscopy - MAC (01/10/17) EGD - MAC (01/10/17) Extraction of cataract (11/10/16) LEFT EYE; DR. MORRIS Hemorrhoidectomy and anal fissure repair Hernia Repair, Incisional OOPHRECTOMY, UNILATERAL (~1991) , Ectopic (~1991) Family History Mother Personal history of malignant neoplasm UTERINE Father Personal history of malignant neoplasm COLON Brother Heart disease Brother No problems noted. Brother No problems noted. Grandfather Personal history of malignant neoplasm Grandfather No problems noted. Grandmother Personal history of malignant neoplasm Stroke Grandmother Diabetes Personal history of malignant neoplasm Social History Smoking/Tobacco Use Status: Current-Occasional Tobacco Type: e-cigarettes Smoking risk assessment performed?: Yes Alcohol Intake: never Drug use: Never Substance use type: does not use Details: vapor use Do you feel safe at home: Yes Do you feel safe in your relationship?: Yes Exam Const General: cooperative, comfortable, no acute distress and anxious Orientation: alert, awake and oriented x3 HENMT Head: normal to inspection, normocephalic and atraumatic Face and sinus: normal facial exam Mouth: moist mucous membranes Throat: posterior oropharynx normal Eyes Conjunctivae: conjunctivae normal Neck Neck: normal visual inspection, full ROM, no meningeal signs, trachea midline and supple Chest Chest/axillae images: 1. There is a 1 cm round shallow wound, edges with minimal erythema. There is no lymphangitic streaking, warmth, tenderness, discharge. Patient states that this has been present for about a week or so, both her oncologist and PCP are aware and she is applying a wound cream and watching closely. Resp Effort & Inspection: normal respiratory effort and able to speak in complete sentences Auscultation: diminished lung sounds bilaterally in the lower lung [place] Cardio Rate: tachycardic (108) Rhythm: regular rhythm GI Palpation: soft, not firm and nontender Back/Spine/Pelvis Back: No back tenderness Skin General skin exam: no rashes or lesions noted (Other than stated above) Neuro General: patient alert, patient awake, moves all extremities and no focal motor deficits Cognition: normal cognition Speech: speech normal Motor: muscle tone normal throughout Sensory Exam: no sensory deficits noted Extrem General: full ROM, capillary refill normal, no calf tenderness and pedal edema bilaterally non-pitting and 1+ Psych Appearance: grossly normal Mental Status: mental status grossly normal Course Vital Signs Vital signs: Vital Signs Temperature 37.7 C H 11/20/22 18:22 Pulse 107 H 11/20/22 18:22 Respiratory Rate 18 11/20/22 18:22 Blood Pressure 185/82 H 11/20/22 18:22 Pulse Oximetry 94 11/20/22 18:22 Temperature 37.7 C H 11/20/22 18:22 Temperature Source Tympanic 11/20/22 18:22 Pulse 107 H 11/20/22 18:22 Respiratory Rate 18 11/20/22 18:22 Respiratory Effort 11/20/22 18:27 Respiratory Depth Normal 11/20/22 18:27 Respiratory Pattern Normal 11/20/22 18:27 Blood Pressure 185/82 H 11/20/22 18:22 Blood Pressure Position Supine 11/20/22 18:22 Pulse Oximetry 94 11/20/22 18:22 Pain Level 10 11/20/22 18:22
[2022-11-20 19:19] LABS: Abs Immature Grans 0.09 10^3/uL (0.0-0.06); Absolute Basophil Count 0.08 10^3/uL (0.0-0.2); Absolute Eosinophil Count 0.17 10^3/uL (0.0-0.7); Absolute Lymphocyte Count 1.68 10^3/uL (1.2-3.4); Absolute Monocyte Count 0.72 10^3/uL (0.1-0.8); Absolute Neutrophil Count 6.52 10^3/uL (1.2-6.7); Basophils % 0.9; Eosinophils % 1.8; HCT 37.2 % (36.0-46.0); HGB 11.5 g/dL (11.2-15.7); Lymphocytes % 18.1; MCHC 30.9 % (32.0-36.0); MCV 91 fL (80-95); MPV 10.8 fL (8.0-11.0); Monocytes % 7.8; Neutrophils % 70.4; Platelet Count 247 10^3/uL (130-400); RBC 4.11 10^6/uL (3.93-5.22); RDW 12.3 % (11.7-14.6); RDW-SD 40.6 fL; WBC 9.26 10^3/uL (4.4-10.8)
[2022-11-20 19:36] LABS: INR 1.1 (0.9-1.1); PTT Activated 26.8 sec (21.0-27.5); Prothrombin Time 10.9 sec (9.3-11.0)
[2022-11-20 19:47] LABS: ALT 22 U/L (14-59); AST 25 U/L (15-37); Albumin 3.3 g/dL (3.4-5.0); Alkaline Phosphatase 159 U/L (46-116); Anion Gap 10.6 mmol/L (3-11); BUN 21 mg/dL (7-18); Bilirubin, Total 0.4 mg/dL (0.2-1.0); CO2 25.4 mmol/L (21.0-32.0); CREATININE 1.5 mg/dL (0.55-1.02); Calcium 8.6 mg/dL (8.5-10.1); Chloride 102 mmol/L (98-107); Estimated GFR 37.72 (mL/min/1.73m2); Glucose 132 mg/dL (74-106); Sodium 138 mmol/L (136-145); Total Protein 7.9 g/dL (6.4-8.2)
--- NOTE | 2022-11-20 19:48 | DI.VRAD_ITS ---
PROCEDURE INFORMATION: Exam: XR Chest Exam date and time: 11/20/2022 7:17 PM Age: 67 years old Clinical indication: Shortness of breath; Patient HX: SOB TECHNIQUE: Imaging protocol: Radiologic exam of the chest. Views: 1 view. Other technique: Portable exam. COMPARISON: CR XR CHEST 2V PA LATERAL 10/27/2021 5:17 PM FINDINGS: Tubes, catheters and devices: Right Port-A-Cath in place. Lungs: Mild bibasilar atelectasis is not significantly changed prior study allowing for slight inspiratory differences. Are some minimal increased markings at the right lung base compared to the left and compared to previous. Pleural spaces: No pneumothorax. Heart/Mediastinum: Cardiomegaly.. Diaphragm: There is mild elevation of the right hemidiaphragm. Bones/joints: Unremarkable. IMPRESSION: Mild right lower lobe atelectasis. Dictated and Authenticated by: Ester Katz MD. Ordering:MILY Suarez MD
[2022-11-20 19:49] LABS: TSH (W/Ref FT4) 1.34 uIU/mL (0.36-3.74)
[2022-11-20 19:55] LABS: D-Dimer 1136 ng/mlFEU (<500)
[2022-11-20 19:56] LABS: COVID-19 PCR Negative (Negative); Influenza A PCR Negative (Negative); Influenza B PCR Negative (Negative); Magnesium 1.7 mg/dL (1.8-2.4); NT-proBNP 4647 pg/mL (<300); RSV PCR Negative (Negative); Troponin I < 50 ng/L (<or=60)
[2022-11-20 20:05] LABS: Source Nasopharynx
--- NOTE | 2022-11-20 20:15 | DI.CT_ITS ---
Exam(s) CT CHEST PE CTA EXAM: CT CHEST PE CTA CLINICAL HISTORY: SOB,Tachy, + CA. TECHNIQUE: Imaging Protocol: CT angiography of the chest was performed using pulmonary embolus clinton col. Multi planar reconstructions were performed. CONTRAST MATERIAL: Intravenous: Omnipaque 350 Contrast volume: 82 cc Contrast injection wall approved by the ER provider COMPARISON: CT CT LUMBAR SPINE RECONS from 09/01/2022 CR,XR XR PORTABLE CHEST AP from 11/20/2022 FINDINGS: CHEST: PULMONARY ARTERIES: There are no obvious intraluminal filling defects to suggest acute pulmonary embo li. LUNGS: Relatively symmetrical ground-glass infiltrates which possibly related to air trapping but can not exclude infectious such as Covid-19 etiology.. There are no pleural effusions. MEDIASTINUM: There is no hilar nor mediastinal adenopathy. Visualized thyroid unremarkable. CARDIAC: Cardiomegaly. Also small pericardial effusion noted.Caliber of the thoracic aorta is within normal limits. No evidence of dissection although the descending thoracic aorta as well as the parti ally included upper most abdominal aorta are significantly atherosclerotic. There is no significant shift of the interventricular septum. PARTIALLY VISUALIZED UPPERMOST ABDOMEN: Edematous appearing gallbladder partially included. The enti re gallbladder is not included in the field of view here. No right kidney seen. No splenomegaly. OSSEOUS: No significant osseous lesions.. IMPRESSION: 1. No evidence of acute pulmonary emboli. No evidence of pulmonary infarction.Ground-glass density s ymmetrically distributed in both lung [place]. Although this may be related to air trapping, recommen d Covid-19 testing. No intrathoracic adenopathy. 2. Cardiomegaly. Small pericardial effusion. 3. Significantly atherosclerotic thoracic and partially visualized upper abdominal aorta. No dissect ion evident in the thoracic aorta. 4. Partially included gallbladder appears unremarkable. Recommend follow-up gallbladder ultrasound. RADIATION DOSE DELIVERED: 514.29mGy.cm Total DLP DATA REPOSITORY: All CT scans at this facility are submitted to the National Radiology Data Registry (NRDR) Dose Index Registry (DIR) with the [employer] (A[employer]). RADIATION OPTIMIZATION: All CT scans at this facility use at least one of these dose optimization te chniques: automated exposure control; mA and/or kV adjustment per patient size (includes targeted exa ms where dose is matched to clinical indication); or iterative reconstruction.
[2022-11-20] MEDS: MAGNESIUM SULFATE 1 GM/100 ML BAG IVPB (20:31)
[2022-11-20 20:47] LABS: Bilirubin Negative (Negative); Blood Trace-intact (Negative); Clarity Sl Cloudy (Clear); Glucose Negative (Negative); Ketones Negative (Negative); Leukocyte Esterase Negative (Negative); Nitrite Negative (Negative); Urobilinogen 0.2 EU/dL (Up TO 0.2); pH 5.5 (5-8)
[2022-11-20 20:53] LABS: Bacteria Moderate HPF (Negative); C & S Indicated? Yes; Crystals Negative HPF (Negative); Epithelial Cells Few HPF (Negative); Mucus Moderate (Negative)
[2022-11-20] MEDS: Omnipaque 350 MG/ML 100 ML BTL IJ (21:02)
[2022-11-20] MEDS: Normal Saline - Diluent 50 ML VIAL IJ (21:05)
[2022-11-20] MEDS: Normal Saline Flush 10 ML SYR IVP (21:06)
--- NOTE | 2022-11-20 21:23 | DI.VRAD_ITS ---
PROCEDURE INFORMATION: Exam: CTA Chest With Contrast Exam date and time: 11/20/2022 8:41 PM Age: 67 years old Clinical indication: Shortness of breath and other: Tachy, CA; Patient HX: Tachy, SOB, CA TECHNIQUE: Imaging protocol: Computed tomographic angiography of the chest with contrast. 3D rendering (Not supervised by radiologist): MIP and/or 3D reconstructed images were created by the technologist. Radiation optimization: All CT scans at this facility use at least one of these dose optimization techniques: automated exposure control; mA and/or kV adjustment per patient size (includes targeted exams where dose is matched to clinical indication); or iterative reconstruction. Contrast material: OMNIPAQUE 350; Contrast volume: 82 ml; Contrast route: INTRAVENOUS (IV); COMPARISON: CT CHEST PE CTA 03/19/2021 4:36 PM FINDINGS: Pulmonary arteries: Normal. No pulmonary emboli. Aorta: Moderate to severe atherosclerotic change again noted in the vasculature. There may be some minimal ulcerated plaque involving the distal descending thoracic aorta. Lungs: Minimal patchy hazy ground-glass change seen in the lungs, slightly increased in conspicuity compared to previous study. Pleural spaces: Unremarkable. No pneumothorax. No pleural effusion. Heart: No change cardiomegaly. Small pericardial effusion. Coronary arteries: Coronary artery calcifications/stents again identified. Lymph nodes: Unremarkable. No enlarged lymph nodes. Gallbladder and bile ducts: Gallbladder attenuation increased, uncertain etiology. The gallbladder is incompletely imaged. Bones/joints: Unremarkable. No acute fracture. Soft tissues: Unremarkable. IMPRESSION: No evidence for pulmonary embolus. Dictated and Authenticated by: Ester Katz MD. Ordering:MILY Suarez MD
[2022-11-20] MEDS: Normal Saline 500 ML IV (21:54)
[2022-11-20 22:00] LABS: Troponin I < 50 ng/L (<or=60)
[2022-11-20] MEDS: Furosemide 40 MG/4 ML VIAL IVP (22:17)
== END 2022-11-20 22:23 | disposition home or self-care (01) ==
PROVIDERS: Emergency Provider Physician Assistant; PCP Physician Assistant
DX: I13.0 Hypertensive heart and chronic kidney disease with heart failure and stage 1 through stage 4 chronic kidney disease, or unspecified chronic kidney disease (principal); I50.9 Heart failure, unspecified; N18.9 Chronic kidney disease, unspecified; D63.1 Anemia in chronic kidney disease; E11.22 Type 2 diabetes mellitus with diabetic chronic kidney disease; R00.0 Tachycardia, unspecified; C68.0 Malignant neoplasm of urethra; S21.102A Unspecified open wound of left front wall of thorax without penetration into thoracic cavity, initial encounter; X58.XXXA Exposure to other specified factors, initial encounter; Z20.822 Contact with and (suspected) exposure to COVID-19
CPT/HCPCS: 36415; 71275; 80053; 87077; 87637; 93005; 96361; 96365; 96375; 99285; 71045; 81003; 81015; 83735; 83880; 84443; 84484; 85025; 85379; 85610; 85730; 87086; 87186; 93010; J1940; J3475; J3490

== ENCOUNTER 2022-11-22 03:58 | Outpatient (CLI) | payer BC, MEDICARE, SELFPAY ==
[2022-11-22 09:11] LABS: Abs Immature Grans 0.06 10^3/uL (0.0-0.06); Absolute Basophil Count 0.08 10^3/uL (0.0-0.2); Absolute Eosinophil Count 0.29 10^3/uL (0.0-0.7); Absolute Lymphocyte Count 1.38 10^3/uL (1.2-3.4); Absolute Monocyte Count 0.68 10^3/uL (0.1-0.8); Absolute Neutrophil Count 6.76 10^3/uL (1.2-6.7); Basophils % 0.9; Eosinophils % 3.1; HCT 36.8 % (36.0-46.0); HGB 11.5 g/dL (11.2-15.7); Immature Grans % 0.6; Lymphocytes % 14.9; MCH 28.4 pg (27.0-33.0); MCHC 31.3 % (32.0-36.0); MCV 91 fL (80-95); MPV 10.1 fL (8.0-11.0); Monocytes % 7.4; Neutrophils % 73.1; Platelet Count 270 10^3/uL (130-400); RBC 4.05 10^6/uL (3.93-5.22); RDW 12.5 % (11.7-14.6); RDW-SD 41.4 fL; WBC 9.25 10^3/uL (4.4-10.8)
[2022-11-22 09:27] LABS: ALT 24 U/L (14-59); AST 26 U/L (15-37); Albumin 3.3 g/dL (3.4-5.0); Alkaline Phosphatase 155 U/L (46-116); Anion Gap 6.6 mmol/L (3-11); BUN 23 mg/dL (7-18); Bilirubin, Total 0.4 mg/dL (0.2-1.0); CO2 30.4 mmol/L (21.0-32.0); CREATININE 1.7 mg/dL (0.55-1.02); Calcium 8.8 mg/dL (8.5-10.1); Chloride 102 mmol/L (98-107); Estimated GFR 32.46 (mL/min/1.73m2); Glucose 124 mg/dL (74-106); Potassium 3.8 mmol/L (3.5-5.1); Sodium 139 mmol/L (136-145); Total Protein 7.4 g/dL (6.4-8.2)
== END 2022-11-22 03:59 | disposition home or self-care (01) ==
LOC: LBO 03:58
PROVIDERS: PCP Physician Assistant; Visit Provider Nurse Practitioner Adult Health
DX: C79.10 Secondary malignant neoplasm of unspecified urinary organs (principal)
CPT/HCPCS: 36415; 80053; 85025

== ENCOUNTER 2022-12-13 13:16 | Outpatient (CLI) | payer BC, MEDICARE, SELFPAY ==
[2022-12-13 13:01] LABS: Abs Immature Grans 0.11 10^3/uL (0.0-0.06); Absolute Basophil Count 0.05 10^3/uL (0.0-0.2); Absolute Eosinophil Count 0.32 10^3/uL (0.0-0.7); Absolute Lymphocyte Count 1.83 10^3/uL (1.2-3.4); Absolute Monocyte Count 0.52 10^3/uL (0.1-0.8); Absolute Neutrophil Count 7.56 10^3/uL (1.2-6.7); Basophils % 0.5; Eosinophils % 3.1; HCT 34.8 % (36.0-46.0); HGB 10.7 g/dL (11.2-15.7); Immature Grans % 1.1; Lymphocytes % 17.6; MCH 27.6 pg (27.0-33.0); MCHC 30.7 % (32.0-36.0); MCV 90 fL (80-95); MPV 10.8 fL (8.0-11.0); Neutrophils % 72.7; Platelet Count 274 10^3/uL (130-400); RBC 3.88 10^6/uL (3.93-5.22); RDW 12.9 % (11.7-14.6); RDW-SD 42.1 fL; WBC 10.39 10^3/uL (4.4-10.8)
[2022-12-13 13:18] LABS: ALT 17 U/L (14-59); AST 16 U/L (15-37); Alkaline Phosphatase 137 U/L (46-116); Anion Gap 7.1 mmol/L (3-11); BUN 47 mg/dL (7-18); Bilirubin, Total 0.2 mg/dL (0.2-1.0); CO2 30.9 mmol/L (21.0-32.0); CREATININE 1.8 mg/dL (0.55-1.02); Chloride 96 mmol/L (98-107); Estimated GFR 30.31 (mL/min/1.73m2); Glucose 217 mg/dL (74-106); Potassium 3.9 mmol/L (3.5-5.1); Sodium 134 mmol/L (136-145); Total Protein 7.4 g/dL (6.4-8.2)
[2022-12-13 13:36] LABS: Calcium 8.8 mg/dL (8.5-10.1)
== END 2022-12-13 13:17 | disposition home or self-care (01) ==
LOC: LBO 13:17
PROVIDERS: PCP Physician Assistant; Visit Provider Nurse Practitioner Adult Health
DX: C79.10 Secondary malignant neoplasm of unspecified urinary organs (principal)
CPT/HCPCS: 36415; 80053; 85025

== ENCOUNTER 2022-12-20 10:39 | Outpatient (CLI) | payer BC, MEDICARE, SELFPAY ==
[2022-12-20 08:04] LABS: Abs Immature Grans 0.14 10^3/uL (0.0-0.06); Absolute Basophil Count 0.08 10^3/uL (0.0-0.2); Absolute Eosinophil Count 0.34 10^3/uL (0.0-0.7); Absolute Lymphocyte Count 1.86 10^3/uL (1.2-3.4); Absolute Monocyte Count 0.62 10^3/uL (0.1-0.8); Absolute Neutrophil Count 7.46 10^3/uL (1.2-6.7); Basophils % 0.8; Eosinophils % 3.2; HGB 10.5 g/dL (11.2-15.7); Immature Grans % 1.3; Lymphocytes % 17.7; MCH 27.5 pg (27.0-33.0); MCHC 30.9 % (32.0-36.0); MCV 89 fL (80-95); MPV 10.6 fL (8.0-11.0); Monocytes % 5.9; Neutrophils % 71.1; Platelet Count 263 10^3/uL (130-400); RBC 3.82 10^6/uL (3.93-5.22); RDW 13.2 % (11.7-14.6); RDW-SD 42.9 fL
[2022-12-20 08:28] LABS: ALT 16 U/L (14-59); AST 17 U/L (15-37); Alkaline Phosphatase 139 U/L (46-116); BUN 41 mg/dL (7-18); Bilirubin, Total 0.3 mg/dL (0.2-1.0); CREATININE 1.7 mg/dL (0.55-1.02); Calcium 8.6 mg/dL (8.5-10.1); Chloride 96 mmol/L (98-107); Estimated GFR 32.46 (mL/min/1.73m2); Glucose 233 mg/dL (74-106); Sodium 135 mmol/L (136-145); Total Protein 7.3 g/dL (6.4-8.2)
== END 2022-12-20 10:40 | disposition home or self-care (01) ==
LOC: LBO 10:41
PROVIDERS: PCP Physician Assistant; Visit Provider Nurse Practitioner Adult Health
DX: C79.19 Secondary malignant neoplasm of other urinary organs (principal)
CPT/HCPCS: 36415; 80053; 85025

== ENCOUNTER 2022-12-27 06:34 | Inpatient (IN) | payer BC, MEDICARE, SELFPAY ==
[2022-12-27] VITALS (177 sets, daily range): BP systolic 101–159; BP diastolic 40–140; PULSE 65–137; RESP 10–28; TEMP 36.6–39.1; O2SAT 87–100
--- NOTE | 2022-12-27 06:30 | DI.CT_ITS ---
Exam(s) CT CHEST/ABD/PEL W EXAM: CT CHEST/ABD/PEL W CLINICAL HISTORY: fever, altered, cancer TECHNIQUE: Imaging Protocol: Axial computed tomography images with coronal and sagittal reformatted images were created and reviewed CONTRAST MATERIAL: Intravenous: Omnipaque 350 contrast volume:50 mL Oral: No COMPARISON: CT CT LUMBAR SPINE RECONS from 09/01/[address] ABDOMEN PELVIS WO from 09/01/[address] CHEST PE CTA from 11/20/2022 FINDINGS: The examination is limited due to patient motion artifact. CHEST: Tracheobronchial tree: Patent where visualized. Pulmonary parenchyma: There again seen linear areas of scarring or atelectasis in the lungs. There i s bronchiectasis seen in the right middle lobe. No new focal consolidating infiltrates are seen. No architectural distortion. Visualized thyroid gland: Unremarkable. Mediastinum and [place]: No dominant adenopathy or fluid collection. The esophagus is unremarkable. Pleura: No effusion or pneumothorax. Heart: The heart is not dilated. Marked coronary artery calcification is present. No pericardial eff usion. Pulmonary arteries: Due to bolus timing and does, pulmonary artery evaluation is limited for pulmonar y emboli. Aorta: Thoracic aorta non-dilated. Atherosclerosis is present. Lymph nodes: Within normal limits. Tubes, Catheters, and Lines: There is an indwelling central venous catheter. Soft tissues: Unremarkable. Bones:Within normal limits for the patient's age. Sclerotic foci are seen in the bones consistent wi th metastatic disease. Several of the sclerotic foci that are seen in the lower thoracic and upper l umbar spine were not present on the CT scan of the chest from 11/20/2022. ABDOMEN: Liver: Normal density. No measurable mass. Portal, Superior Mesenteric, and Splenic Veins: Grossly unremarkable but difficult to evaluate due to poor opacification. Gallbladder and Biliary Tract: The gallbladder is contracted. There do appear to be stones present. The extrahepatic bile duct measures 9 mm. Pancreas: There is marked atrophy of the pancreas. Spleen: Normal. Adrenals: There is unchanged thickening of the limbs of the left adrenal gland. The right adrenal gl and is not visualized. Kidneys: Status post right nephrectomy. The left kidney is unremarkable. No radiodense stones or ob structive uropathy. No masses seen. Abdominal Aorta: Abdominal portion non-dilated. Atherosclerosis is present. Bowel: The bowel shows no evidence of obstruction. No bowel wall thickening is seen. There is no ev idence of appendicitis. There is a moderate amount of stool in the colon in the rectum. Peritoneal Cavity: No ascites, collection or mesenteric inflammatory response. No free air. Lymph Nodes: Within normal limits. Bones: Within normal limits for the patient's age. There again seen sclerotic foci in the lumbar spi ne. Several of the smaller foci are new compared to 11/20/2022. Soft Tissues: Unremarkable. PELVIS: Bladder: Symmetric distention, no gross wall thickening. Reproductive Organs: Status post hysterectomy. Lymph Nodes: Within normal limits. Bones: Within normal limits. IMPRESSION: 1. Stable findings in the lung. No new pulmonary infiltrates are seen. 2. Increase in the sclerotic foci in the thoracic and lumbar spine suggesting progress of metastatic disease. 3. Moderate amount of stool in the colon and rectum which may reflect constipation. 4. 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 No evidence of nephrolithiasis or hydronephro sis. 5. The common duct measures 0.9 cm. This is an increase compared to the prior examination. There do appear to be stones or sludge in the gallbladder. Gallbladder ultrasound may be obtained for furthe r evaluation. 6. Findings were discussed with Dr. Mariano at 9:37 a.m. on 12/27/2022. RADIATION DOSE DELIVERED: 1554.5 mGy.cm Total DLP DATA REPOSITORY: All CT scans at this facility are submitted to the National Radiology Data Registry (NRDR) Dose Index Registry (DIR) with the [employer] ([employer]). RADIATION OPTIMIZATION: All CT scans at this facility use at least one of these dose optimization te chniques: automated exposure control; mA and/or kV adjustment per patient size (includes targeted exa ms where dose is matched to clinical indication); or iterative reconstruction.
--- NOTE | 2022-12-27 06:30 | DI.CT_ITS ---
Exam(s) CT HEAD WO EXAM: CT HEAD WO CLINICAL HISTORY: fever, altered. TECHNIQUE: Imaging Protocol: Axial computed tomography images with coronal and sagittal reformatted images were created and reviewed COMPARISON: CT CT CHEST/ABD/PEL W from 12/27/2022 FINDINGS: Ventricles and Extra axial spaces: Normal in size and morphology for the patient's age. Hemorrhage: None. Cerebral parenchyma: There is old lacunar infarct in the left cerebellum. There is an old left basal gangliar lacunar infarct. There are areas of decreased attenuation in the white matter likely refle cting small vessel ischemic disease. Midline shift: None. Brainstem/Cerebellum: Normal. Calvarium: Normal. Visualized Paranasal sinuses/Mastoids: There is mild mucosal thickening in the right maxillary sinus. The remaining visualized paranasal sinuses and mastoid air cells are clear. Soft Tissues: Unremarkable. IMPRESSION: 1. No acute intracranial process. 2. Findings were discussed with Dr. Mariano at 8:58 a.m. on 12/27/2022. RADIATION DOSE DELIVERED: Total DLP DATA REPOSITORY: All CT scans at this facility are submitted to the National Radiology Data Registry (NRDR) Dose Index Registry (DIR) with the [employer] ([employer]). RADIATION OPTIMIZATION: All CT scans at this facility use at least one of these dose optimization te chniques: automated exposure control; mA and/or kV adjustment per patient size (includes targeted exa ms where dose is matched to clinical indication); or iterative reconstruction.
--- NOTE | 2022-12-27 06:33 | ED.GENADUL_ITS ---
Discharge Plan Discharge Details Chief Complaint: AMS/LOC Clinical Impression: Sepsis Primary Care Provider: Derek Torres ED Provider: Chuck Alonso Home Meds and New Rx's Prescriptions: No Action naloxone [Narcan] 4 mg/actuation spray,non-aerosol 1 spray intranasal Q2-3M PRN (Reason: opioid overdose) Qty: 2 0RF Rx Instructions: spray 1 dose into ONE nostril; alternate nostrils w each dose until help a rrives pregabalin [Lyrica] 50 mg capsule 50 mg PO BID hydrocodone-acetaminophen 10-325 mg tablet 1 tab PO Q4H PRN cholecalciferol (vitamin D3) 1,000 UNIT capsule 1,000 iu PO QAM Qty: 100 nystatin-triamcinolone 15 GM cream 1 applic Topical BID PRN PRNQty: 12 (DME) OneTouch Ultra Test 1 EACH strip 1 ea Miscellaneous ac and hs Qty: 400 Rx Instructions: dx: E11.65 on insulin with labile blood sugars and risk for hypoglycemia sennosides [senna] 8.6 mg tablet 17.2 mg PO BID Label Comments: TAKE TWO TABLETS BY MOUTH TWICE A DAY Fleet Enema 19-7 gram/118 mL Enema 118 ml WI ONCE PRN losartan 100 mg tablet 100 mg PO DAILY Label Comments: TAKE ONE TABLET BY MOUTH EVERY DAY furosemide 20 mg tablet 20 mg PO BID polyethylene glycol 3350 17 gram powder in packet 17 g PO DAILY PRN PRN Label Comments: USE 1 PACKET DAILY IN 8OZ OF LIQUID NEEDED FOR CONSTIPATION Eliquis 5 mg tablet 5 mg PO BID Qty: 70 0RF Rx Instructions: take 10 mg twice daily for 7 days, then 5 mg twice daily insulin degludec [Tresiba FlexTouch U-100] 100 UNIT/1 ML insulin pen 56 unit SQ QAM insulin lispro [Humalog KwikPen Insulin] 100 unit/mL insulin pen 0 - 6 unit SUBCUT PRN PRN Label Comments: INJECT SUBCUTANEOUSLY PER SLIDING SCALE THREE TIMES A DAY BEFORE MEALS 101TO 150 2 UNITS 151 TO 200 4 UNITS 201 TO 250 6 UNITS 251 TO 3 hydromorphone 2 mg tablet 2 mg PO Q6H PRNQty: 8 0RF metoprolol tartrate 25 mg tablet 25 mg PO BID sucralfate 1 gram Tablet 1 g PO QID chlorthalidone 25 mg Tablet 25 mg PO diphenhydramine HCl 25 mg Tablet 25 mg PO Q6H hydrocortisone 2.5 % Cream 1 applic TOPICAL BID Medical Decision Making This is a 67-year-old female, past medical history that includes hypertension, anemia, anxiety, CKD, CHF, thrombocytopenia, diabetes, currently being treated for recurrent urothelial carcinoma, who is a full code, who presents today via [facility] for evaluation of altered mental status and fever. Family states that over the last day or so she has had increased confusion and weakness in general. She has also had increased pain. But he has increased over the last 3 to 4 days, and she has recently gone from 1 fentanyl patch to 2 fentinel patches per day. Family denies any other complaints otherwise though. No recent falls or trauma. No cough. No current antibiotic use. Physical exam demonstrates slightly altered and confused female, she is febrile, oxygenation is in the mid 90s, she is mildly tachycardic. Lungs appear relatively clear, however inspirations are limited, and there may be underlying pneumonia. UTI certainly on the differential. Concern for neutropenia. We will start broad-spectrum antibiotics of vancomycin, Zosyn, and azithromycin for treatment of sepsis. We will monitor closely and reassess. HPI General Date/Time Provider Initiated Documentation: 12/27/22 06:46 . HPI Narrative: This is a 67-year-old female, past medical history that includes hypertension, anemia, anxiety, CKD, CHF, thrombocytopenia, diabetes, currently being treated for recurrent urothelial carcinoma, who is a full code, who presents today via [facility] for evaluation of altered mental status and fever. Family states that over the last day or so she has had increased confusion and weakness in general. She has also had increased pain. But he has increased over the last 3 to 4 days, and she has recently gone from 1 fentanyl patch to 2 fentinel patches per day. Family denies any other complaints otherwise though. No recent falls or trauma. No cough. No current antibiotic use. Related Data Home Medications Medication Instructions Recorded Confirmed cholecalciferol (vitamin D3) 25 1,000 iu PO QAM #100 tab-caps 07/31/14 12/13/22 mcg (1,000 unit) capsule nystatin-triamcinolone 100,000 1 applic topical BID PRN PRN ##12 09/01/16 12/13/22 unit/g-0.1 % topical cream blood sugar diagnostic (OneTouch #400 strips 10/18/16 12/13/22 Ultra Test strips) sennosides 8.6 mg tablet (senna) 17.2 mg PO BID 03/19/21 12/13/22 sodium phosphates 19 gram-7 118 ml WI ONCE PRN 03/20/21 12/13/22 gram/118 mL enema (Fleet Enema) insulin degludec 100 unit/mL (3 56 unit SQ QAM 05/19/21 12/13/22 mL) subcutaneous pen (Tresiba FlexTouch U-100 insulin) insulin lispro 100 unit/mL 0 - 6 unit subcut PRN PRN 05/19/21 12/13/22 subcutaneous pen (Humalog KwikPen (U-100) Insulin) losartan 100 mg tablet 100 mg PO DAILY 08/11/21 12/13/22 polyethylene glycol 3350 17 gram 17 g PO DAILY PRN PRN 10/27/21 12/13/22 oral powder packet apixaban 5 mg tablet (Eliquis) 5 mg PO BID #70 tabs 10/28/21 12/13/22 naloxone 4 mg/actuation nasal 1 spray intranasal Q2-3M PRN 11/22/21 12/13/22 spray (Narcan) opioid overdose #2 ea hydromorphone 2 mg tablet 2 mg PO Q6H PRN #8 tabs 01/16/22 12/13/22 metoprolol tartrate 25 mg tablet 25 mg PO BID 01/25/22 12/13/22 chlorthalidone 25 mg tablet 25 mg PO 09/01/22 12/13/22 diphenhydramine HCl 25 mg tablet 25 mg PO Q6H 09/01/22 12/13/22 hydrocortisone 2.5 % topical cream 1 applic topical BID 09/01/22 12/13/22 sucralfate 1 gram tablet 1 g PO QID 09/01/22 12/13/22 furosemide 20 mg tablet 20 mg PO BID 12/13/22 12/13/22 hydrocodone 10 mg-acetaminophen 1 tab PO Q4H PRN 12/13/22 12/13/22 325 mg tablet pregabalin 50 mg capsule (Lyrica) 50 mg PO BID 12/13/22 12/13/22 Previous Rx's Medication Instructions Recorded apixaban 5 mg tablet (Eliquis) 5 mg PO BID #70 tabs 10/28/21 naloxone 4 mg/actuation nasal 1 spray intranasal Q2-3M PRN 11/22/21 spray (Narcan) opioid overdose #2 ea hydromorphone 2 mg tablet 2 mg PO Q6H PRN #8 tabs 01/16/22 Allergies Allergy/AdvReac Type Severity Reaction Status Date / Time Sulfa (Sulfonamide Allergy Severe rash Verified 12/27/22 07:35 Antibiotics) adhesive Allergy Intermediate Skin Rash Verified 12/27/22 07:35 exenatide microspheres Allergy Unknown Verified 12/27/22 07:35 [From Bydureon] gabapentin Allergy Verified 12/27/22 07:35 lorazepam [From Ativan] Allergy Skin Rash Unverified 12/27/22 07:35 loratadine AdvReac Severe MADE HER Verified 12/27/22 07:35 FEEL HYPER celecoxib [From Celebrex] AdvReac Intermediate Pt states Verified 12/27/22 07:35 side effects unspecified gluten AdvReac Intermediate Diarrhea Verified 12/27/22 07:35 lactose AdvReac Intermediate Diarrhea Verified 12/27/22 07:35 atorvastatin AdvReac Unverified 12/27/22 07:35 hydrocodone AdvReac Other (See Unverified 12/27/22 07:35 Comment) simvastatin AdvReac Unverified 12/27/22 07:35 Esjshow-OUJ-UdI Reductase AdvReac Verified 12/27/22 07:35 Inhibitor [Jgfriub-Ith-Oxo Reductase Inhibitor] Tegaderm Allergy Dermatitis Uncoded 12/27/22 07:35 General NEHA: 3 Review of Systems All systems reviewed & are unremarkable except as noted in HPI and below PFSH All Active Problems (Updated 12/27/22 @ 08:05 by Chuck Alonso DO) Sepsis (Acute) Advanced care planning/counseling discussion (Acute) Cancer related pain (Acute) Muscle pain (Chronic) Bone tumor (Acute) DVT (deep venous thrombosis) (Chronic) Mental health disorder (Chronic) Folate deficiency (Acute) Acute kidney injury superimposed on chronic kidney disease (Acute) Acute on chronic anemia (Acute) Hypertension (Chronic) Anxiety (Chronic) Constipation (Acute) Reflux esophagitis (Acute) Acute on chronic diastolic CHF (congestive heart failure), NYHA class 1 (Chronic) Chest pain (Acute) Pericardial effusion (Acute) Elevated troponin (Acute) Acute anemia (Acute) Thrombocytopenia (Acute) Bandemia (Acute) Diastolic heart failure (Acute) Peripheral neuropathy (Chronic) Superficial thrombophlebitis of right upper extremity (Acute) Urothelial carcinoma (Acute) Acute pulmonary edema (Acute) IDDM (insulin dependent diabetes mellitus) (Chronic) Discharge planning issues (Acute) DVT prophylaxis (Acute) Ureteral cancer (Acute) Acute CHF (Acute) Leukocytosis (Acute) Bilateral lower extremity edema (Acute) Pericardial effusion (Acute) UTI (urinary tract infection) (Acute) Kidney mass (Acute) Flank pain (Acute) Medical History Depression Diabetes Gastritis and duodenitis GERD (gastroesophageal reflux disease) History of colon polyps Hyperlipidemia Obesity Osteoarthritis Palliative care encounter Surgical History Abdominal hysterectomy (~11/2010) for fibroid Bilateral salpingectomy with oophorectomy Biopsy of breast cyst excised-left section Colonoscopy - MAC (01/10/17) EGD - MAC (01/10/17) Extraction of cataract (11/10/16) LEFT EYE; DR. MORRIS Hemorrhoidectomy and anal fissure repair Hernia Repair, Incisional OOPHRECTOMY, UNILATERAL (~1991) , Ectopic (~1991) Family History Mother Personal history of malignant neoplasm UTERINE Father Personal history of malignant neoplasm COLON Brother Heart disease Brother No problems noted. Brother No problems noted. Grandfather Personal history of malignant neoplasm Grandfather No problems noted. Grandmother Personal history of malignant neoplasm Stroke Grandmother Diabetes Personal history of malignant neoplasm Social History Smoking/Tobacco Use Status: Current-Occasional Tobacco Type: e-cigarettes Smoking risk assessment performed?: Yes Alcohol Intake: never Drug use: Never Substance use type: does not use Details: vapor use Do you feel safe at home: Yes Do you feel safe in your relationship?: Yes Exam Narrative Exam Narrative: 1.Const: Well-nourished, Well-developed, appearing stated age 2.Eyes: PERRL, no conjunctival injection, and symmetrical lids. 3.ENT: Atraumatic external nose and ears. Notably dry MM. Neck: Symmetric, trachea midline, No thyromegaly. 4.CVS: +S1/S2, No murmurs or gallops. Peripheral pulses 2+ and equal in all extremities. Brisk capillary refill in all extremities. 5.RESP: Unlabored respiratory effort. Clear to auscultation bilaterally. No wheezes rales or rhonchi 6.GI: Soft, Nontender/Nondistended, No hepatosplenomegaly. No guarding or rebound. 7.MSK: Normocephalic/Atraumatic, Extremities w/o deformity or ttp No cyanosis or clubbing, patient is moving all extremities, but she is not necessarily following specific commands. 8.Skin: Warm, Dry. No rashes or lesions. 9.Neuro: Slightly altered, GCS of 13, moves all extremities. No focal deficits.
--- NOTE | 2022-12-27 06:45 | RT.EKG_ITS ---
APPROVED REPORT Exam: Resting ECG Reason for Exam: tachy Patient Location: E HR:93 bpm ECG Measurements Heart Rate 93 AXIS LA 179 P 32 QRSd 144 QRS 58 QT 380 T -47 QTc 474 Conclusion Sinus rhythm...normal P axis, V-rate 60- 99 Right bundle branch block...QRSd>120, terminal axis(90,270) Borderline ST depression, lateral leads...ST <-0.07mV, I aVL V5 V6
[2022-12-27] MEDS: ACETAMINOPHEN 1,000 MG/100 ML BTL 100 MG (06:50)
[2022-12-27 06:57] LABS: BE (Venous) 3 mmol/L (-2-3); HCO3 (Venous) 27 mmol/L (23-28); O2 Sat (Venous) 59 %; TCO2 (Venous) 26 mmol/L (24-29); pCO2 (Venous) 45 mmHg (41-51); pH (Venous) 7.39 (7.31-7.41); pO2 (Venous) 30 mmHg
[2022-12-27 06:58] LABS: Lactate 0.9 mmol/L (0.6-1.4)
[2022-12-27 07:03] LABS: Absolute Basophil Count 0.01 10^3/uL (0.0-0.2); Absolute Eosinophil Count 0.08 10^3/uL (0.0-0.7); Absolute Lymphocyte Count 0.43 10^3/uL (1.2-3.4); Absolute Monocyte Count 0.28 10^3/uL (0.1-0.8); Absolute Neutrophil Count 0.95 10^3/uL (1.2-6.7); Basophils % 0.6; Eosinophils % 4.6; HCT 32.4 % (36.0-46.0); HGB 10.4 g/dL (11.2-15.7); Lymphocytes % 24.6; MCH 27.7 pg (27.0-33.0); MCHC 32.1 % (32.0-36.0); MCV 86 fL (80-95); MPV 10.9 fL (8.0-11.0); Neutrophils % 54.2; Platelet Count 246 10^3/uL (130-400); RBC 3.75 10^6/uL (3.93-5.22); RDW 13.1 % (11.7-14.6); RDW-SD 41.4 fL
[2022-12-27 07:10] LABS: Diff Comment Diff Reviewed; RBC Morphology Normal; WBC 1.75 10^3/uL (4.4-10.8)
[2022-12-27 07:16] LABS: PTT Activated 24.5 sec (21.0-27.5)
[2022-12-27] MEDS: Normal Saline 500 ML IV (07:26)
[2022-12-27 07:27] LABS: Ammonia < 10 umol/L (11-32)
[2022-12-27 07:27] LABS: ALT 15 U/L (14-59); AST 18 U/L (15-37); Albumin 2.9 g/dL (3.4-5.0); Alkaline Phosphatase 125 U/L (46-116); Anion Gap 7.6 mmol/L (3-11); BUN 57 mg/dL (7-18); Bilirubin, Total 0.4 mg/dL (0.2-1.0); CO2 28.4 mmol/L (21.0-32.0); Calcium 8.6 mg/dL (8.5-10.1); Chloride 96 mmol/L (98-107); Estimated GFR 26.71 (mL/min/1.73m2); Glucose 120 mg/dL (74-106); Potassium 4.7 mmol/L (3.5-5.1); Sodium 132 mmol/L (136-145); TSH (W/Ref FT4) 0.71 uIU/mL (0.36-3.74); Total Protein 7.3 g/dL (6.4-8.2)
[2022-12-27] MEDS: PIPERACILLIN/TAZO 4.5 GM in Normal Saline 100 ML IVPB (07:32)
[2022-12-27 07:37] LABS: Procalcitonin 0.2 ng/mL
[2022-12-27 07:46] LABS: COVID-19 PCR Negative (Negative); Influenza A PCR Negative (Negative); Influenza B PCR Negative (Negative); RSV PCR Negative (Negative)
[2022-12-27 07:54] LABS: Source Nasopharynx
--- NOTE | 2022-12-27 08:43 | NUR.NOTE ---
pt incontinent of urine while at CT and placed on bedpan. new brief applied.
[2022-12-27] MEDS: Omnipaque 350 MG/ML 500 ML BTL-Imaging package IJ (08:44)
[2022-12-27] MEDS: Normal Saline - Diluent 50 ML VIAL IJ (08:47)
[2022-12-27 08:50] LABS: Bilirubin Negative (Negative); Blood Trace-lysed (Negative); Clarity Sl Cloudy (Clear); Glucose Negative (Negative); Ketones Negative (Negative); Leukocyte Esterase Negative (Negative); Nitrite Positive (Negative); Urobilinogen 0.2 EU/dL (Up TO 0.2)
--- NOTE | 2022-12-27 08:52 | NUR.NOTE ---
pts states at 2200 last night she began having tremors and incomprehensible speech. per pt did not want him to call ambulance at that time. Symptoms lasted throughout the night and at 0500 this am he decided to call for ambulance. pts notes that she was able to speak but most words were incomprehensible and what she was trying to say was not relevant to the situation. agrees that pt has significantly improved. pt able to respond appropriately at this time and ask questions regarding care.
[2022-12-27 08:57] LABS: Bacteria Moderate HPF (Negative); C & S Indicated? Yes; Casts 0-2 Hyaline LPF (Negative); Crystals Negative HPF (Negative); Epithelial Cells Few HPF (Negative); Mucus Negative (Negative); RBC 0-2 HPF (0-2); WBC 0-2 HPF (0-5)
[2022-12-27] MEDS: VANCOMYCIN/WATER (PEG) 2 GM/400 ML BAG IVPB (09:09)
--- NOTE | 2022-12-27 09:45 | DI.US_ITS ---
Exam(s) US ABDOMEN EXAM: US ABDOMEN CLINICAL HISTORY: ?gallstones TECHNIQUE: Ultrasound abdomen performed using standard protocol. COMPARISON: CT CT CHEST/ABD/PEL W from 12/27/2022 FINDINGS: ABDOMINAL AORTA AND IVC: Visualized portions normal caliber. PANCREAS: Normal where visualized. LIVER: Normal. Hepatopedal flow in the Portal Vein. Upper limits of normal in size. GALLBLADDER:No evidence of cholelithiasis. There is gallbladder wall thickening up to 8 mm. No peric holecystic fluid identified. There is mobile debris seen within the gallbladder. BILIARY SYSTEM: Common bile duct measures 8 mm. No intrahepatic biliary ductal dilation. OSWALD'S SIGN: Negative. KIDNEYS: Status post right nephrectomy. The left kidney is unremarkable. No evidence of renal calcu li. No evidence of hydronephrosis. No renal mass or cyst identified. SPLEEN: Not enlarged. ASCITES: None seen. IMPRESSION: 1. No evidence of cholelithiasis. There is gallbladder wall thickening and debris seen within the gal lbladder. Differential considerations include acalculous cholecystitis, chronic cholecystitis or poss ible mass. 2. Status post right nephrectomy. 3. Findings were discussed with Dr. Mariano on 12/27/2022. DATA REPOSITORY:
--- NOTE | 2022-12-27 10:20 | W.EDPROG ---
Date of service: 12/27/22 Time of Service: 10:20 Medical Decision Making pt signed out to me pending imaging results, all of which did not show acute findings though Dr. Muller from radiology recommended u/s of the gallbladder as cbd is 0.9 and possible sludge vs stones. She is hemodynamically stable, currently oriented to person place but not sure of the day. She denies any upper abdominal pain, no ruq tenderness on exam so doubt cholecystitis. Her urine is consistent with uti, will order u/s and discuss with hospitalist about admission Sign Out Sign Out Data: Sign Out Comment: Cancer patient, neutropenic, febrile, follow-up on labs and imaging broad-spectrum antibiotics have been initiated. Last updated by Chuck Alonso DO at 12/27/22 08:06 Discharge Plan Disposition Patient Disposition: Admit to [facility] Condition: Serious Discharge Details Chief Complaint: AMS/LOC Clinical Impression: Sepsis, UTI (urinary tract infection) Primary Care Provider: Derek Torres ED Provider: Papa Mariano Perkins Meds and New Rx's Prescriptions: No Action naloxone [Narcan] 4 mg/actuation spray,non-aerosol 1 spray intranasal Q2-3M PRN (Reason: opioid overdose) Qty: 2 0RF Rx Instructions: spray 1 dose into ONE nostril; alternate nostrils w each dose until help arrives pregabalin [Lyrica] 50 mg capsule 50 mg PO BID hydrocodone-acetaminophen 10-325 mg tablet 1 tab PO Q4H PRN cholecalciferol (vitamin D3) 1,000 UNIT capsule 1,000 iu PO QAM Qty: 100 nystatin-triamcinolone 15 GM cream 1 applic Topical BID PRN PRNQty: 12 (DME) OneTouch Ultra Test 1 EACH strip 1 ea Miscellaneous ac and hs Qty: 400 Rx Instructions: dx: E11.65 on insulin with labile blood sugars and risk for hypoglycemia sennosides [senna] 8.6 mg tablet 17.2 mg PO BID Label Comments: TAKE TWO TABLETS BY MOUTH TWICE A DAY Fleet Enema 19-7 gram/118 mL Enema [address] ONCE PRN losartan 100 mg tablet 100 mg PO DAILY Label Comments: TAKE ONE TABLET BY MOUTH EVERY DAY furosemide 20 mg tablet 20 mg PO BID polyethylene glycol 3350 17 gram powder in packet 17 g PO DAILY PRN PRN Label Comments: USE 1 PACKET DAILY IN 8OZ OF LIQUID NEEDED FOR CONSTIPATION Eliquis 5 mg tablet 5 mg PO BID Qty: 70 0RF Rx Instructions: take 10 mg twice daily for 7 days, then 5 mg twice daily insulin degludec [Tresiba FlexTouch U-100] 100 UNIT/1 ML insulin pen 56 unit SQ QAM insulin lispro [Humalog KwikPen Insulin] 100 unit/mL insulin pen 0 - 6 unit SUBCUT PRN PRN Label Comments: INJECT SUBCUTANEOUSLY PER SLIDING SCALE THREE TIMES A DAY BEFORE MEALS 101TO 150 2 UNITS 151 TO 200 4 UNITS 201 TO 250 6 UNITS 251 TO 3 hydromorphone 2 mg tablet 2 mg PO Q6H PRNQty: 8 0RF metoprolol tartrate 25 mg tablet 25 mg PO BID sucralfate 1 gram Tablet 1 g PO QID chlorthalidone 25 mg Tablet 25 mg PO diphenhydramine HCl 25 mg Tablet 25 mg PO Q6H hydrocortisone 2.5 % Cream 1 applic TOPICAL BID
[2022-12-27] MEDS: AZITHROMYCIN 500 MG in Normal Saline 250 ML 250 MG IVPB (12:03)
--- NOTE | 2022-12-27 12:14 | HPE_ITS ---
Date of service: 12/27/22 Time of Service: 12:14 Assessment and Plan Assessment and plan (1) Altered mental status: Status: Resolved Assessment and plan: improved off fentanyl and likely d/t UTI (2) UTI (urinary tract infection): Status: Acute Assessment and plan: urine culture pending. started on cefepime and vancomycin while awaiting cultures (3) Urothelial carcinoma: Status: Acute Assessment and plan: followed by [facility], was seen was palliative, will reconsult (4) Gallbladder contraction: Status: Acute Assessment and plan: surgical consult placed. (5) Cancer related pain: Status: Acute Assessment and plan: will adjust pain medication accordingly. not tolerating fentanyl or vicodin. (6) IDDM (insulin dependent diabetes mellitus): Status: Chronic Assessment and plan: will place on diabetic diet, sliding scale as needed ac/hs no tresiba on formulary so will order reduce dosed lantus while hospitalized. A1C was 6.2 in Sep 2022 (7) Acute kidney injury superimposed on chronic kidney disease: Status: Acute Assessment and plan: given IV fluids, avoid nephrotoxic drugs, renal dose as needed. discussed with DR Kirk History of Present Illness History of Present Illness Chief Complaint: altered mental status Narrative: This is a 67-year-old female patient with a complex past medical history including urothelial carcinoma, diabetes mellitus on insulin diastolic heart failure suspicion of metastatic bone disease with intractable pain who is followed by [facility] oncology currently receiving with enfurtunmab/padceb per last palliative note, who presented to the emergency department with altered mental status. Her pain has been poorly managed and fentanyl patch recently increased from 25 mics to 50 mics. This was removed on her arrival. Her work- up in the emergency department concerning for a urinary tract infection. She was started on broad-spectrum antibiotics. Head CT showed no acute intracranial process to explain her delirium. [facility] All Active Problems (Updated 12/28/22 @ 14:30 by Tamera Tom NP) Gallbladder contraction (Acute) Sepsis (Acute) Advanced care planning/counseling discussion (Acute) Cancer related pain (Acute) Muscle pain (Chronic) Bone tumor (Acute) DVT (deep venous thrombosis) (Chronic) Mental health disorder (Chronic) Folate deficiency (Acute) Acute kidney injury superimposed on chronic kidney disease (Acute) Acute on chronic anemia (Acute) Hypertension (Chronic) Anxiety (Chronic) Constipation (Acute) Reflux esophagitis (Acute) Acute on chronic diastolic CHF (congestive heart failure), NYHA class 1 (Chronic) Chest pain (Acute) Pericardial effusion (Acute) Elevated troponin (Acute) Acute anemia (Acute) Thrombocytopenia (Acute) Bandemia (Acute) Diastolic heart failure (Acute) Peripheral neuropathy (Chronic) Superficial thrombophlebitis of right upper extremity (Acute) Urothelial carcinoma (Acute) Acute pulmonary edema (Acute) IDDM (insulin dependent diabetes mellitus) (Chronic) Discharge planning issues (Acute) DVT prophylaxis (Acute) Ureteral cancer (Acute) Acute CHF (Acute) Leukocytosis (Acute) Bilateral lower extremity edema (Acute) Pericardial effusion (Acute) UTI (urinary tract infection) (Acute) Kidney mass (Acute) Flank pain (Acute) Medical History Depression Diabetes Gastritis and duodenitis GERD (gastroesophageal reflux disease) History of colon polyps Hyperlipidemia Obesity Osteoarthritis Palliative care encounter Surgical History Abdominal hysterectomy (~11/2010) for fibroid Bilateral salpingectomy with oophorectomy Biopsy of breast cyst excised-left section Colonoscopy - MAC (01/10/17) EGD - MAC (01/10/17) Extraction of cataract (11/10/16) LEFT EYE; DR. MORRIS Hemorrhoidectomy and anal fissure repair Hernia Repair, Incisional OOPHRECTOMY, UNILATERAL (~1991) , Ectopic (~1991) Family History Mother Personal history of malignant neoplasm UTERINE Father Personal history of malignant neoplasm COLON Brother Heart disease Brother No problems noted. Brother No problems noted. Grandfather Personal history of malignant neoplasm Grandfather No problems noted. Grandmother Personal history of malignant neoplasm Stroke Grandmother Diabetes Personal history of malignant neoplasm Social History Smoking/Tobacco Use Status: Current-Occasional Tobacco Type: e-cigarettes Smoking risk assessment performed?: Yes Alcohol Intake: never Drug use: Never Substance use type: does not use Details: vapor use Do you feel safe at home: Yes Do you feel safe in your relationship?: Yes Meds Allergies and Home Medications Allergies Allergy/AdvReac Type Severity Reaction Status Date / Time Sulfa (Sulfonamide Allergy Severe rash Verified 12/27/22 07:35 Antibiotics) adhesive Allergy Intermediate Skin Rash Verified 12/27/22 07:35 exenatide microspheres Allergy Unknown Verified 12/27/22 07:35 [From Bydureon] gabapentin Allergy Verified 12/27/22 07:35 lorazepam [From Ativan] Allergy Skin Rash Unverified 12/27/22 07:35 loratadine AdvReac Severe MADE HER Verified 12/27/22 07:35 FEEL HYPER celecoxib [From Celebrex] AdvReac Intermediate Pt states Verified 12/27/22 07:35 side effects unspecified gluten AdvReac Intermediate Diarrhea Verified 12/27/22 07:35 lactose AdvReac Intermediate Diarrhea Verified 12/27/22 07:35 atorvastatin AdvReac Unverified 12/27/22 07:35 hydrocodone AdvReac Other (See Unverified 12/27/22 07:35 Comment) simvastatin AdvReac Unverified 12/27/22 07:35 [id number] Reductase AdvReac Verified 12/27/22 07:35 Inhibitor [Hpnzlmf-Nwd-Drv Reductase Inhibitor] Tegaderm Allergy Dermatitis Uncoded 12/27/22 07:35 Home Medications Medication Instructions Recorded Confirmed Type cholecalciferol (vitamin D3) 25 1,000 iu PO QAM #100 tab-caps 07/31/14 12/27/22 History mcg (1,000 unit) capsule blood sugar diagnostic (OneTouch #400 strips 10/18/16 12/27/22 History Ultra Test strips) insulin degludec 100 unit/mL (3 60 unit SQ QAM 05/19/21 12/27/22 History mL) subcutaneous pen (Tresiba FlexTouch U-100 insulin) losartan 100 mg tablet 50 mg PO DAILY 08/11/21 12/27/22 History polyethylene glycol 3350 17 gram 17 g PO DAILY PRN PRN 10/27/21 12/27/22 History oral powder packet apixaban 5 mg tablet (Eliquis) 5 mg PO BID #70 tabs 10/28/21 12/27/22 Rx naloxone 4 mg/actuation nasal 1 spray intranasal Q2-3M PRN 11/22/21 12/27/22 Rx spray (Narcan) opioid overdose #2 ea metoprolol tartrate 25 mg tablet 25 mg PO BID 01/25/22 12/27/22 History chlorthalidone 25 mg tablet 25 mg PO DAILY 09/01/22 12/27/22 History diphenhydramine HCl 25 mg tablet 25 mg PO Q6H PRN 09/01/22 12/27/22 History hydrocodone 10 mg-acetaminophen 1 tab PO Q4H PRN 12/13/22 12/27/22 History 325 mg tablet pregabalin 50 mg capsule (Lyrica) 50 mg PO BID 12/13/22 12/27/22 History fentanyl 50 mcg/hr transdermal 1 patch transdermal DIRECTED 12/27/22 12/27/22 History patch magnesium oxide 400 mg (241.3 mg 1 tab PO DAILY 12/27/22 12/27/22 History magnesium) tablet Exam Const General: frail appearing and ill appearing acutely and chronically Nutritional Appearance: overweight Orientation: alert, awake and oriented x3 HENMT Head: normal to inspection, normocephalic and atraumatic Mouth: oral mucosae normal Chest Chest: normal inspection of the chest Resp Effort & Inspection: normal respiratory effort Auscultation: clear to auscultation bilaterally and diminished lung sounds Cardio Rate: regular rate Rhythm: regular rhythm GI Inspection: normal to inspection and distended Palpation: soft Skin General skin exam: no rashes or lesions noted Neuro General: patient alert, patient awake, patient oriented x3 and no focal motor deficits Cognition: normal cognition Speech: speech normal Gait: normal gait Motor: muscle tone normal throughout Extrem General: normal to inspection and full ROM Results Labs Result diagrams: 12/28/22 06:00 12/28/22 06:00 Labs: Laboratory Results - last 24 hr 12/27/22 12/27/22 12/27/22 06:45 06:45 06:45 WBC 1.75 L* RBC 3.75 L Hgb 10.4 L Hct 32.4 L MCV 86 MCH 27.7 MCHC 32.1 RDW 13.1 Plt Count 246 MPV 10.9 Immature Gran % 0.0 Neutrophils % 54.2 Lymphocytes % 24.6 Monocytes % 16.0 Eosinophils % 4.6 Basophils % 0.6 Nucleated RBC % 0.0 Absolute Neutrophils 0.95 L Absolute Lymphocytes 0.43 L Absolute Monocytes 0.28 Absolute Eosinophils 0.08 Absolute Basophils 0.01 RBC Morphology Normal PT INR APTT VBG pH VBG pCO2 VBG pO2 VBG HCO3 VBG Total CO2 VBG O2 Saturation VBG Base Excess VBG Lactate 0.9 Sodium 132 L Potassium 4.7 Chloride 96 L Carbon Dioxide 28.4 Anion Gap 7.6 BUN 57 H Creatinine 2.0 H Est GFR (CKD-EPI 2020) 26.71 Glucose 120 H Calcium 8.6 Total Bilirubin 0.4 AST 18 ALT 15 Alkaline Phosphatase 125 H Ammonia Total Protein 7.3 Albumin 2.9 L Procalcitonin TSH 0.71 Urine Color Urine Clarity Urine pH Ur Specific [place] Urine Protein Urine Ketones Urine Blood Urine Nitrite Urine Bilirubin Urine Urobilinogen Ur Leukocyte Esterase Urine RBC Urine WBC Ur Epithelial Cells Urine Crystals Urine Bacteria Urine Casts Urine Mucus Ur Culture Indicated? Urine Glucose COVID-19 Source SARS-CoV-2 (PCR) Influenza Type A (PCR) Influenza Type B (PCR) RSV (PCR) 12/27/22 12/27/22 12/27/22 06:45 06:45 06:45 WBC RBC Hgb Hct MCV MCH MCHC RDW Plt Count MPV Immature Gran % Neutrophils % Lymphocytes % Monocytes % Eosinophils % Basophils % Nucleated RBC % Absolute Neutrophils Absolute Lymphocytes Absolute Monocytes Absolute Eosinophils Absolute Basophils RBC Morphology PT 10.0 INR 1.0 APTT 24.5 VBG pH 7.39 VBG pCO2 45 VBG pO2 30 VBG HCO3 27 VBG Total CO2 26 VBG O2 Saturation 59 VBG Base Excess 3 VBG Lactate Sodium Potassium Chloride Carbon Dioxide Anion Gap BUN Creatinine Est GFR (CKD-EPI 2020) Glucose Calcium Total Bilirubin AST ALT Alkaline Phosphatase Ammonia Total Protein Albumin Procalcitonin 0.2 TSH Urine Color Urine Clarity Urine pH Ur Specific [place] Urine Protein Urine Ketones Urine Blood Urine Nitrite Urine Bilirubin Urine Urobilinogen Ur Leukocyte Esterase Urine RBC Urine WBC Ur Epithelial Cells Urine Crystals Urine Bacteria Urine Casts Urine Mucus Ur Culture Indicated? Urine Glucose COVID-19 Source SARS-CoV-2 (PCR) Influenza Type A (PCR) Influenza Type B (PCR) RSV (PCR) 12/27/22 12/27/22 12/27/22 07:00 07:03 08:40 WBC RBC Hgb Hct MCV MCH MCHC RDW Plt Count MPV Immature Gran % Neutrophils % Lymphocytes % Monocytes % Eosinophils % Basophils % Nucleated RBC % Absolute Neutrophils Absolute Lymphocytes Absolute Monocytes Absolute Eosinophils Absolute Basophils RBC Morphology PT INR APTT VBG pH VBG pCO2 VBG pO2 VBG HCO3 VBG Total CO2 VBG O2 Saturation VBG Base Excess VBG Lactate Sodium Potassium Chloride Carbon Dioxide Anion Gap BUN Creatinine Est GFR (CKD-EPI 2020) Glucose Calcium Total Bilirubin AST ALT Alkaline Phosphatase Ammonia < 10 L Total Protein Albumin Procalcitonin TSH Urine Color Yellow Urine Clarity Sl Cloudy Urine pH 5.0 Ur Specific [place] 1.010 Urine Protein 30 H Urine Ketones Negative Urine Blood Trace-lysed H Urine Nitrite Positive H Urine Bilirubin Negative Urine Urobilinogen 0.2 Ur Leukocyte Esterase Negative Urine RBC 0-2 Urine WBC 0-2 Ur Epithelial Cells Few Urine Crystals Negative Urine Bacteria Moderate Urine Casts 0-2 Hyaline Urine Mucus Negative Ur Culture Indicated? Yes Urine Glucose Negative COVID-19 Source Nasopharynx SARS-CoV-2 (PCR) Negative Influenza Type A (PCR) Negative Influenza Type B (PCR) Negative RSV (PCR) Negative Last Vital Signs Temp 36.6 C 12/27/22 12:06 Pulse 115 H 12/27/22 12:06 Resp 18 12/27/22 12:06 BP 153/75 H 12/27/22 12:06 Pulse Ox 100 12/27/22 12:06 Time Spent Time spent with Patient: 40-54 minutes Time was spent: preparing to see the patient(eg.review tests), obtaining and/or reviewing separately otained hiistory, ordering medications,tests, procedures, referring, communicating with other health health care / medical job titles and indepentently interpreting results
[2022-12-27] MEDS: Lactated Ringers 1,000 ML 250 ML IV ×2 (13:29→17:50)
--- NOTE | 2022-12-27 13:48 | W.SURGCON ---
[facility] All Active Problems (Updated 12/27/22 @ 10:23 by Papa Mariano MD) Sepsis (Acute) Advanced care planning/counseling discussion (Acute) Cancer related pain (Acute) Muscle pain (Chronic) Bone tumor (Acute) DVT (deep venous thrombosis) (Chronic) Mental health disorder (Chronic) Folate deficiency (Acute) Acute kidney injury superimposed on chronic kidney disease (Acute) Acute on chronic anemia (Acute) Hypertension (Chronic) Anxiety (Chronic) Constipation (Acute) Reflux esophagitis (Acute) Acute on chronic diastolic CHF (congestive heart failure), NYHA class 1 (Chronic) Chest pain (Acute) Pericardial effusion (Acute) Elevated troponin (Acute) Acute anemia (Acute) Thrombocytopenia (Acute) Bandemia (Acute) Diastolic heart failure (Acute) Peripheral neuropathy (Chronic) Superficial thrombophlebitis of right upper extremity (Acute) Urothelial carcinoma (Acute) Acute pulmonary edema (Acute) IDDM (insulin dependent diabetes mellitus) (Chronic) Discharge planning issues (Acute) DVT prophylaxis (Acute) Ureteral cancer (Acute) Acute CHF (Acute) Leukocytosis (Acute) Bilateral lower extremity edema (Acute) Pericardial effusion (Acute) UTI (urinary tract infection) (Acute) Kidney mass (Acute) Flank pain (Acute) Medical History Depression Diabetes Gastritis and duodenitis GERD (gastroesophageal reflux disease) History of colon polyps Hyperlipidemia Obesity Osteoarthritis Palliative care encounter Surgical History Abdominal hysterectomy (~11/2010) for fibroid Bilateral salpingectomy with oophorectomy Biopsy of breast cyst excised-left section Colonoscopy - MAC (01/10/17) EGD - MAC (01/10/17) Extraction of cataract (11/10/16) LEFT EYE; DR. MORRIS Hemorrhoidectomy and anal fissure repair Hernia Repair, Incisional OOPHRECTOMY, UNILATERAL (~1991) , Ectopic (~1991) Family History Mother Personal history of malignant neoplasm UTERINE Father Personal history of malignant neoplasm COLON Brother Heart disease Brother No problems noted. Brother No problems noted. Grandfather Personal history of malignant neoplasm Grandfather No problems noted. Grandmother Personal history of malignant neoplasm Stroke Grandmother Diabetes Personal history of malignant neoplasm Social History Smoking/Tobacco Use Status: Current-Occasional Tobacco Type: e-cigarettes Smoking risk assessment performed?: Yes Alcohol Intake: never Drug use: Never Substance use type: does not use Details: vapor use Do you feel safe at home: Yes Do you feel safe in your relationship?: Yes Results Last Vital Signs Temp 100.8 F H 12/27/22 12:40 Pulse 65 12/27/22 12:40 Resp 22 12/27/22 12:40 BP 125/58 L 12/27/22 12:40 Pulse Ox 96 12/27/22 12:40 Labs Result diagrams: 12/27/22 06:45 12/27/22 06:45 Labs: Laboratory Results - last 24 hr 12/27/22 12/27/22 12/27/22 06:45 06:45 06:45 WBC 1.75 L* RBC 3.75 L Hgb 10.4 L Hct 32.4 L MCV 86 MCH 27.7 MCHC 32.1 RDW 13.1 Plt Count 246 MPV 10.9 Immature Gran % 0.0 Neutrophils % 54.2 Lymphocytes % 24.6 Monocytes % 16.0 Eosinophils % 4.6 Basophils % 0.6 Nucleated RBC % 0.0 Absolute Neutrophils 0.95 L Absolute Lymphocytes 0.43 L Absolute Monocytes 0.28 Absolute Eosinophils 0.08 Absolute Basophils 0.01 RBC Morphology Normal PT INR APTT VBG pH VBG pCO2 VBG pO2 VBG HCO3 VBG Total CO2 VBG O2 Saturation VBG Base Excess VBG Lactate 0.9 Sodium 132 L Potassium 4.7 Chloride 96 L Carbon Dioxide 28.4 Anion Gap 7.6 BUN 57 H Creatinine 2.0 H Est GFR (CKD-EPI 2020) 26.71 Glucose 120 H Calcium 8.6 Total Bilirubin 0.4 AST 18 ALT 15 Alkaline Phosphatase 125 H Ammonia Total Protein 7.3 Albumin 2.9 L Procalcitonin TSH 0.71 Urine Color Urine Clarity Urine pH Ur Specific [place] Urine Protein Urine Ketones Urine Blood Urine Nitrite Urine Bilirubin Urine Urobilinogen Ur Leukocyte Esterase Urine RBC Urine WBC Ur Epithelial Cells Urine Crystals Urine Bacteria Urine Casts Urine Mucus Ur Culture Indicated? Urine Glucose COVID-19 Source SARS-CoV-2 (PCR) Influenza Type A (PCR) Influenza Type B (PCR) RSV (PCR) 12/27/22 12/27/22 12/27/22 06:45 06:45 06:45 WBC RBC Hgb Hct MCV MCH MCHC RDW Plt Count MPV Immature Gran % Neutrophils % Lymphocytes % Monocytes % Eosinophils % Basophils % Nucleated RBC % Absolute Neutrophils Absolute Lymphocytes Absolute Monocytes Absolute Eosinophils Absolute Basophils RBC Morphology PT 10.0 INR 1.0 APTT 24.5 VBG pH 7.39 VBG pCO2 45 VBG pO2 30 VBG HCO3 27 VBG Total CO2 26 VBG O2 Saturation 59 VBG Base Excess 3 VBG Lactate Sodium Potassium Chloride Carbon Dioxide Anion Gap BUN Creatinine Est GFR (CKD-EPI 2020) Glucose Calcium Total Bilirubin AST ALT Alkaline Phosphatase Ammonia Total Protein Albumin Procalcitonin 0.2 TSH Urine Color Urine Clarity Urine pH Ur Specific [place] Urine Protein Urine Ketones Urine Blood Urine Nitrite Urine Bilirubin Urine Urobilinogen Ur Leukocyte Esterase Urine RBC Urine WBC Ur Epithelial Cells Urine Crystals Urine Bacteria Urine Casts Urine Mucus Ur Culture Indicated? Urine Glucose COVID-19 Source SARS-CoV-2 (PCR) Influenza Type A (PCR) Influenza Type B (PCR) RSV (PCR) 12/27/22 12/27/22 12/27/22 07:00 07:03 08:40 WBC RBC Hgb Hct MCV MCH MCHC RDW Plt Count MPV Immature Gran % Neutrophils % Lymphocytes % Monocytes % Eosinophils % Basophils % Nucleated RBC % Absolute Neutrophils Absolute Lymphocytes Absolute Monocytes Absolute Eosinophils Absolute Basophils RBC Morphology PT INR APTT VBG pH VBG pCO2 VBG pO2 VBG HCO3 VBG Total CO2 VBG O2 Saturation VBG Base Excess VBG Lactate Sodium Potassium Chloride Carbon Dioxide Anion Gap BUN Creatinine Est GFR (CKD-EPI 2020) Glucose Calcium Total Bilirubin AST ALT Alkaline Phosphatase Ammonia < 10 L Total Protein Albumin Procalcitonin TSH Urine Color Yellow Urine Clarity Sl Cloudy Urine pH 5.0 Ur Specific [place] 1.010 Urine Protein 30 H Urine Ketones Negative Urine Blood Trace-lysed H Urine Nitrite Positive H Urine Bilirubin Negative Urine Urobilinogen 0.2 Ur Leukocyte Esterase Negative Urine RBC 0-2 Urine WBC 0-2 Ur Epithelial Cells Few Urine Crystals Negative Urine Bacteria Moderate Urine Casts 0-2 Hyaline Urine Mucus Negative Ur Culture Indicated? Yes Urine Glucose Negative COVID-19 Source Nasopharynx SARS-CoV-2 (PCR) Negative Influenza Type A (PCR) Negative Influenza Type B (PCR) Negative RSV (PCR) Negative Imaging Additional studies: CT HEAD (12/27/2022): FINDINGS: Ventricles and Extra axial spaces: Normal in size and morphology for the patient's age. Hemorrhage: None. Cerebral parenchyma: There is old lacunar infarct in the left cerebellum.? There is an old left basal gangliar lacunar infarct.? There are areas of decreased attenuation in the white matter likely reflecting small vessel ischemic disease.? Midline shift: None. Brainstem/Cerebellum: Normal. Calvarium: Normal. Visualized Paranasal sinuses/Mastoids: There is mild mucosal thickening in the right maxillary sinus.? The remaining visualized paranasal sinuses and mastoid air cells are clear.? Soft Tissues: Unremarkable. IMPRESSION: 1. No acute intracranial process.? 2. Findings were discussed with Dr. Mariano at 8:58 a.m. on 12/27/2022. Imaging Studies: CT CHEST/ABD/PEL (12/27/2022): FINDINGS: ?The examination is limited due to patient motion artifact. CHEST: Tracheobronchial tree: Patent where visualized. Pulmonary parenchyma: There again seen linear areas of scarring or atelectasis in the lungs.? There is bronchiectasis seen in the right middle lobe.? No new focal consolidating infiltrates are seen.? No architectural distortion. Visualized thyroid gland: Unremarkable. Mediastinum and [place]: No dominant adenopathy or fluid collection. The esophagus is unremarkable.? Pleura: No effusion or pneumothorax. Heart: The heart is not dilated. Marked coronary artery calcification is present.? No pericardial effusion. Pulmonary arteries: Due to bolus timing and does, pulmonary artery evaluation is limited for pulmonary emboli.? Aorta: Thoracic aorta non-dilated. Atherosclerosis is present. Lymph nodes: Within normal limits. Tubes, Catheters, and Lines: There is an indwelling central venous catheter. Soft tissues: Unremarkable.? Bones:Within normal limits for the patient's age.? Sclerotic foci are seen in the bones consistent with metastatic disease.? Several of the sclerotic foci that are seen in the lower thoracic and upper lumbar spine were not present on the CT scan of the chest from 11/20/2022. ABDOMEN: Liver: Normal density. No measurable mass. Portal, Superior Mesenteric, and Splenic Veins: Grossly unremarkable but difficult to evaluate due to poor opacification. ? Gallbladder and Biliary Tract: The gallbladder is contracted.? There do appear to be stones present.? The extrahepatic bile duct measures 9 mm.? Pancreas: There is marked atrophy of the pancreas.? Spleen: Normal. Adrenals: There is unchanged thickening of the limbs of the left adrenal gland.? The right adrenal gland is not visualized.? Kidneys: Status post right nephrectomy.? The left kidney is unremarkable.? No radiodense stones or obstructive uropathy. No masses seen. Abdominal Aorta: Abdominal portion non-dilated. Atherosclerosis is present. Bowel: The bowel shows no evidence of obstruction.? No bowel wall thickening is seen.? There is no evidence of appendicitis.? There is a moderate amount of stool in the colon in the rectum. Peritoneal Cavity: No ascites, collection or mesenteric inflammatory response.? No free air.? Lymph Nodes: Within normal limits. Bones: Within normal limits for the patient's age.? There again seen sclerotic foci in the lumbar spine.? Several of the smaller foci are new compared to 11/20/2022. Soft Tissues: Unremarkable. PELVIS: Bladder: Symmetric distention, no gross wall thickening. Reproductive Organs: Status post hysterectomy.? Lymph Nodes: Within normal limits. Bones: Within normal limits. IMPRESSION: 1. Stable findings in the lung.? No new pulmonary infiltrates are seen. 2. Increase in the sclerotic foci in the thoracic and lumbar spine suggesting progress of metastatic disease.? 3. Moderate amount of stool in the colon and rectum which may reflect constipation. 4. 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 No evidence of nephrolithiasis or hydronephrosis. 5. The common duct measures 0.9 cm.? This is an increase compared to the prior examination.? There do appear to be stones or sludge in the gallbladder.? Gallbladder ultrasound may be obtained for further evaluation. 6. Findings were discussed with Dr. Mariano at 9:37 a.m. on 12/27/2022.
--- NOTE | 2022-12-27 16:08 | SCONE_ITS ---
Date of service: 12/27/22 Time of Service: 16:08 Assessment and Plan Assessment and plan (1) UTI (urinary tract infection): Status: Acute Assessment and plan: Treatment per Hospitalist team Supportive care (2) Gallbladder contraction: Status: Acute Assessment and plan: 67yo female admitted with neutropenic fever, and UTI, with indeterminate gallbladder findings on imaging. I personally reviewed the imaging with Dr. Muller, radiologist. --review [facility] radiology records for gallbladder findings --consider MRCP to further elucidate gallbladder wall thickening --if gallbladder etiology is suspected to be contributing to infectious picture, cholecystostomy tube recommended History of Present Illness History of Present Illness Chief Complaint: weakness, AMS Narrative: This is a 67-year-old female, past medical history that includes hypertension, anemia, anxiety, CKD, CHF, thrombocytopenia, diabetes, currently being treated for recurrent urothelial carcinoma, who is a full code, who presents today via [facility] for evaluation of altered mental status and fever.? The patient relates that she has had increased pain over the last few days, and increased her Fentanyl patch dosing from 1 to 2 patches. Apparently, this made her more somnolent ans concerned her family, and an ambulance was called. During clinical evaluation in the ED, she was found to have neutropenia (1.75K), fever (102.8F), and a UTI. She underwent a CT head, and chest/abd/pel, which shows a contracted gallbladder with possible cholelithiasis, and a CBD of 9mm. A subsequent RUG U/S showed, No evidence of cholelithiasis. There is gallbladder wall thickening and debris seen within the gallbladder. Differential considerations include acalculous cholecystitis, chronic cholecystitis or possible mass. For this reason a surgical consult was requested. She states that she is having pain all over. She has been able to eat and drink some without vomiting. She states that she sometimes has post-prandial pain, but that it is all over her abdomen, and not specifically in the RUQ. She thinks that she has had imaging with Dr. Dozier at [facility] that showed an issue with her gallbladder, but she doesn't know what it i Review of Systems Constitutional Comments: The patient was quite repetitive, and hard to direct in obtaining the history. She just elaborated it hurts all over. She did identify new tremulousness as different. PFSH All Active Problems (Updated 12/27/22 @ 20:49 by Jamie Ortega MD) Gallbladder contraction (Acute) Sepsis (Acute) Advanced care planning/counseling discussion (Acute) Cancer related pain (Acute) Muscle pain (Chronic) Bone tumor (Acute) DVT (deep venous thrombosis) (Chronic) Mental health disorder (Chronic) Folate deficiency (Acute) Acute kidney injury superimposed on chronic kidney disease (Acute) Acute on chronic anemia (Acute) Hypertension (Chronic) Anxiety (Chronic) Constipation (Acute) Reflux esophagitis (Acute) Acute on chronic diastolic CHF (congestive heart failure), NYHA class 1 (Chronic) Chest pain (Acute) Pericardial effusion (Acute) Elevated troponin (Acute) Acute anemia (Acute) Thrombocytopenia (Acute) Bandemia (Acute) Diastolic heart failure (Acute) Peripheral neuropathy (Chronic) Superficial thrombophlebitis of right upper extremity (Acute) Urothelial carcinoma (Acute) Acute pulmonary edema (Acute) IDDM (insulin dependent diabetes mellitus) (Chronic) Discharge planning issues (Acute) DVT prophylaxis (Acute) Ureteral cancer (Acute) Acute CHF (Acute) Leukocytosis (Acute) Bilateral lower extremity edema (Acute) Pericardial effusion (Acute) UTI (urinary tract infection) (Acute) Kidney mass (Acute) Flank pain (Acute) Medical History Depression Diabetes Gastritis and duodenitis GERD (gastroesophageal reflux disease) History of colon polyps Hyperlipidemia Obesity Osteoarthritis Palliative care encounter Surgical History Abdominal hysterectomy (~11/2010) for fibroid Bilateral salpingectomy with oophorectomy Biopsy of breast cyst excised-left section Colonoscopy - MAC (01/10/17) EGD - MAC (01/10/17) Extraction of cataract (11/10/16) LEFT EYE; DR. MORRIS Hemorrhoidectomy and anal fissure repair Hernia Repair, Incisional OOPHRECTOMY, UNILATERAL (~1991) , Ectopic (~1991) Family History Mother Personal history of malignant neoplasm UTERINE Father Personal history of malignant neoplasm COLON Brother Heart disease Brother No problems noted. Brother No problems noted. Grandfather Personal history of malignant neoplasm Grandfather No problems noted. Grandmother Personal history of malignant neoplasm Stroke Grandmother Diabetes Personal history of malignant neoplasm Social History Smoking/Tobacco Use Status: Current-Occasional Tobacco Type: e-cigarettes Smoking risk assessment performed?: Yes Alcohol Intake: never Drug use: Never Substance use type: does not use Details: vapor use Do you feel safe at home: Yes Do you feel safe in your relationship?: Yes Exam Narrative Exam Narrative: Pt found laying comfortably on her right side Const General: anxious Resp Effort & Inspection: normal respiratory effort and no grunting Auscultation: clear to auscultation bilaterally GI Inspection: no abdominal wall ecchymosis, distended, large pannus, obesity and scar (lower midline) Palpation: soft, not firm, no guarding and tender (pt has a large pannus and she would not lay completely supine, limited exam) in the LLQ; Martin's sign negative (no RUQ tenderness or Martin's on deep palpation) Back/Spine/Pelvis Other: no spinal or CVA tenderness Results Last Vital Signs Temp 100.0 F H 12/27/22 15:43 Pulse 100 H 12/27/22 15:43 Resp 20 12/27/22 15:43 BP 109/64 12/27/22 15:43 Pulse Ox 96 12/27/22 15:43 Labs Result diagrams: 12/27/22 06:45 12/27/22 06:45 Labs: Laboratory Results - last 24 hr 12/27/22 12/27/22 12/27/22 06:45 06:45 06:45 WBC 1.75 L* RBC 3.75 L Hgb 10.4 L Hct 32.4 L MCV 86 MCH 27.7 MCHC 32.1 RDW 13.1 Plt Count 246 MPV 10.9 Immature Gran % 0.0 Neutrophils % 54.2 Lymphocytes % 24.6 Monocytes % 16.0 Eosinophils % 4.6 Basophils % 0.6 Nucleated RBC % 0.0 Absolute Neutrophils 0.95 L Absolute Lymphocytes 0.43 L Absolute Monocytes 0.28 Absolute Eosinophils 0.08 Absolute Basophils 0.01 RBC Morphology Normal PT INR APTT VBG pH VBG pCO2 VBG pO2 VBG HCO3 VBG Total CO2 VBG O2 Saturation VBG Base Excess VBG Lactate 0.9 Sodium 132 L Potassium 4.7 Chloride 96 L Carbon Dioxide 28.4 Anion Gap 7.6 BUN 57 H Creatinine 2.0 H Est GFR (CKD-EPI 2020) 26.71 Glucose 120 H Calcium 8.6 Total Bilirubin 0.4 AST 18 ALT 15 Alkaline Phosphatase 125 H Ammonia Total Protein 7.3 Albumin 2.9 L Procalcitonin TSH 0.71 Urine Color Urine Clarity Urine pH Ur Specific Hamlet Urine Protein Urine Ketones Urine Blood Urine Nitrite Urine Bilirubin Urine Urobilinogen Ur Leukocyte Esterase Urine RBC Urine WBC Ur Epithelial Cells Urine Crystals Urine Bacteria Urine Casts Urine Mucus Ur Culture Indicated? Urine Glucose COVID-19 Source SARS-CoV-2 (PCR) Influenza Type A (PCR) Influenza Type B (PCR) RSV (PCR) 12/27/22 12/27/22 12/27/22 06:45 06:45 06:45 WBC RBC Hgb Hct MCV MCH MCHC RDW Plt Count MPV Immature Gran % Neutrophils % Lymphocytes % Monocytes % Eosinophils % Basophils % Nucleated RBC % Absolute Neutrophils Absolute Lymphocytes Absolute Monocytes Absolute Eosinophils Absolute Basophils RBC Morphology PT 10.0 INR 1.0 APTT 24.5 VBG pH 7.39 VBG pCO2 45 VBG pO2 30 VBG HCO3 27 VBG Total CO2 26 VBG O2 Saturation 59 VBG Base Excess 3 VBG Lactate Sodium Potassium Chloride Carbon Dioxide Anion Gap BUN Creatinine Est GFR (CKD-EPI 2020) Glucose Calcium Total Bilirubin AST ALT Alkaline Phosphatase Ammonia Total Protein Albumin Procalcitonin 0.2 TSH Urine Color Urine Clarity Urine pH Ur Specific Hamlet Urine Protein Urine Ketones Urine Blood Urine Nitrite Urine Bilirubin Urine Urobilinogen Ur Leukocyte Esterase Urine RBC Urine WBC Ur Epithelial Cells Urine Crystals Urine Bacteria Urine Casts Urine Mucus Ur Culture Indicated? Urine Glucose COVID-19 Source SARS-CoV-2 (PCR) Influenza Type A (PCR) Influenza Type B (PCR) RSV (PCR) 12/27/22 12/27/22 12/27/22 07:00 07:03 08:40 WBC RBC Hgb Hct MCV MCH MCHC RDW Plt Count MPV Immature Gran % Neutrophils % Lymphocytes % Monocytes % Eosinophils % Basophils % Nucleated RBC % Absolute Neutrophils Absolute Lymphocytes Absolute Monocytes Absolute Eosinophils Absolute Basophils RBC Morphology PT INR APTT VBG pH VBG pCO2 VBG pO2 VBG HCO3 VBG Total CO2 VBG O2 Saturation VBG Base Excess VBG Lactate Sodium Potassium Chloride Carbon Dioxide Anion Gap BUN Creatinine Est GFR (CKD-EPI 2020) Glucose Calcium Total Bilirubin AST ALT Alkaline Phosphatase Ammonia < 10 L Total Protein Albumin Procalcitonin TSH Urine Color Yellow Urine Clarity Sl Cloudy Urine pH 5.0 Ur Specific Hamlet 1.010 Urine Protein 30 H Urine Ketones Negative Urine Blood Trace-lysed H Urine Nitrite Positive H Urine Bilirubin Negative Urine Urobilinogen 0.2 Ur Leukocyte Esterase Negative Urine RBC 0-2 Urine WBC 0-2 Ur Epithelial Cells Few Urine Crystals Negative Urine Bacteria Moderate Urine Casts 0-2 Hyaline Urine Mucus Negative Ur Culture Indicated? Yes Urine Glucose Negative COVID-19 Source Nasopharynx SARS-CoV-2 (PCR) Negative Influenza Type A (PCR) Negative Influenza Type B (PCR) Negative RSV (PCR) Negative Imaging Imaging Studies: CT CHEST/ABD/PEL (12/27/2022): FINDINGS: ?The examination is limited due to patient motion artifact. CHEST: Tracheobronchial tree: Patent where visualized. Pulmonary parenchyma: There again seen linear areas of scarring or atelectasis in the lungs.? There is bronchiectasis seen in the right middle lobe.? No new focal consolidating infiltrates are seen.? No architectural distortion. Visualized thyroid gland: Unremarkable. Mediastinum and [place]: No dominant adenopathy or fluid collection. The esophagus is unremarkable.? Pleura: No effusion or pneumothorax. Heart: The heart is not dilated. Marked coronary artery calcification is present.? No pericardial effusion. Pulmonary arteries: Due to bolus timing and does, pulmonary artery evaluation is limited for pulmonary emboli.? Aorta: Thoracic aorta non-dilated. Atherosclerosis is present. Lymph nodes: Within normal limits. Tubes, Catheters, and Lines: There is an indwelling central venous catheter. Soft tissues: Unremarkable.? Bones:Within normal limits for the patient's age.? Sclerotic foci are seen in the bones consistent with metastatic disease.? Several of the sclerotic foci that are seen in the lower thoracic and upper lumbar spine were not present on the CT scan of the chest from 11/20/2022. ABDOMEN: Liver: Normal density. No measurable mass. Portal, Superior Mesenteric, and Splenic Veins: Grossly unremarkable but difficult to evaluate due to poor opacification. ? Gallbladder and Biliary Tract: The gallbladder is contracted.? There do appear to be stones present.? The extrahepatic bile duct measures 9 mm.? Pancreas: There is marked atrophy of the pancreas.? Spleen: Normal. Adrenals: There is unchanged thickening of the limbs of the left adrenal gland.? The right adrenal gland is not visualized.? Kidneys: Status post right nephrectomy.? The left kidney is unremarkable.? No radiodense stones or obstructive uropathy. No masses seen. Abdominal Aorta: Abdominal portion non-dilated. Atherosclerosis is present. Bowel: The bowel shows no evidence of obstruction.? No bowel wall thickening is seen.? There is no evidence of appendicitis.? There is a moderate amount of stool in the colon in the rectum. Peritoneal Cavity: No ascites, collection or mesenteric inflammatory response.? No free air.? Lymph Nodes: Within normal limits. Bones: Within normal limits for the patient's age.? There again seen sclerotic foci in the lumbar spine.? Several of the smaller foci are new compared to 11/20/2022. Soft Tissues: Unremarkable. PELVIS: Bladder: Symmetric distention, no gross wall thickening. Reproductive Organs: Status post hysterectomy.? Lymph Nodes: Within normal limits. Bones: Within normal limits. IMPRESSION: 1. Stable findings in the lung.? No new pulmonary infiltrates are seen. 2. Increase in the sclerotic foci in the thoracic and lumbar spine suggesting progress of metastatic disease.? 3. Moderate amount of stool in the colon and rectum which may reflect constipation. 4. 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 No evidence of nephrolithiasis or hydronephrosis. 5. The common duct measures 0.9 cm.? This is an increase compared to the prior examination.? There do appear to be stones or sludge in the gallbladder.? Gallbladder ultrasound may be obtained for further evaluation. 6. Findings were discussed with Dr. Mariano at 9:37 a.m. on 12/27/2022. ABD U/S (12/27/2022): FINDINGS: ABDOMINAL AORTA AND IVC: Visualized portions normal caliber.? PANCREAS: Normal where visualized. LIVER: Normal. Hepatopedal flow in the Portal Vein. Upper limits of normal in size. GALLBLADDER:No evidence of cholelithiasis. There is gallbladder wall thickening up to 8 mm.? No pericholecystic fluid identified. There is mobile debris seen within the gallbladder. BILIARY SYSTEM: Common bile duct measures 8 mm.? No intrahepatic biliary ductal dilation. MARTIN'S SIGN: Negative. KIDNEYS: Status post right nephrectomy.? The left kidney is unremarkable.? No ev idence of renal calculi. No evidence of hydronephrosis. No renal mass or cyst identified. SPLEEN: Not enlarged. ASCITES: None seen. IMPRESSION: 1. No evidence of cholelithiasis. There is gallbladder wall thickening and debris seen within the gallbladder. Differential considerations include acalcu lous cholecystitis, chronic cholecystitis or possible mass. 2.? Status post right nephrectomy. 3. Findings were discussed with Dr. Mariano on 12/27/2022.
[2022-12-27] MEDS: Acetaminophen 325 MG TAB PO (16:22)
[2022-12-27] MEDS: CEFEPIME 2 GM in Normal Saline 100 ML IVPB (16:28)
[2022-12-27] MEDS: Normal Saline Flush 10 ML SYR (16:43)
[2022-12-27] MEDS: Insulin Aspart 300 UNITS/3 ML PEN SC (17:49)
[2022-12-27] MEDS: fentaNYL 25 MCG PATCH TD (18:15)
[2022-12-27 19:26] LABS: C Diff PCR Negative (Negative)
[2022-12-27] MEDS: Metoprolol 25 MG TAB PO (23:34)
[2022-12-27] MEDS: Apixaban 5 MG TAB PO (23:34)
[2022-12-27] MEDS: Pregabalin 50 MG CAP PO (23:34)
[2022-12-28 03:10] VITALS: BP 137/74; PULSE 94; RESP 16; TEMP 37.5; O2SAT 92
[2022-12-28] MEDS: Lactated Ringers 1,000 ML 150 ML IV (03:38)
--- NOTE | 2022-12-28 03:46 | NUR.NOTE ---
Patient rang her calling adrián, this typewriter tester along with the PAPERBOARD MACHINE OPERATOR went in to assist her. Patient state we are not getting to her fast enough, and she should not have to wait for very long for the staff getting to her. Patient was reassured that gowning up takes a little while however she will try doing better next time. Patient was being assisted due to her being incontinent, she said she should have been air-lifted and go to an oncology hospital where staff knows exactly how to take of her, while saying this patient was screaming on the top of her voice. Patient was asked nicely not to scream at us. She state we at this hospital dont have a clue what we are doing. Patient continue screaming stating we are to get out of her room and she does not want to take any IV fluids.
[2022-12-28 06:56] LABS: Absolute Monocyte Count 0.36 10^3/uL (0.1-0.8); HCT 26.5 % (36.0-46.0); HGB 8.5 g/dL (11.2-15.7); MCH 27.3 pg (27.0-33.0); MCHC 32.1 % (32.0-36.0); MCV 85 fL (80-95); MPV 11.1 fL (8.0-11.0); Platelet Count 228 10^3/uL (130-400); RBC 3.11 10^6/uL (3.93-5.22); RDW 13.2 % (11.7-14.6); RDW-SD 41.1 fL; WBC 2.41 10^3/uL (4.4-10.8)
[2022-12-28 07:22] LABS: ALT 15 U/L (14-59); AST 28 U/L (15-37); Albumin 2.2 g/dL (3.4-5.0); Alkaline Phosphatase 94 U/L (46-116); Anion Gap 12.1 mmol/L (3-11); BUN 53 mg/dL (7-18); Bilirubin, Total 0.3 mg/dL (0.2-1.0); CO2 21.9 mmol/L (21.0-32.0); CREATININE 1.5 mg/dL (0.55-1.02); Calcium 8.3 mg/dL (8.5-10.1); Chloride 101 mmol/L (98-107); Estimated GFR 37.72 (mL/min/1.73m2); Glucose 80 mg/dL (74-106); Magnesium 2.1 mg/dL (1.8-2.4); Sodium 135 mmol/L (136-145); Total Protein 5.8 g/dL (6.4-8.2)
[2022-12-28 07:32] LABS: Potassium 2.9 mmol/L (3.5-5.1)
[2022-12-28 07:36] VITALS: BP 132/67; PULSE 86; RESP 18; TEMP 36.1; O2SAT 94
[2022-12-28 07:44] LABS: Absolute Basophil Count 0.02 10^3/uL (0.0-0.2); Absolute Eosinophil Count 0.05 10^3/uL (0.0-0.7); Absolute Lymphocyte Count 0.53 10^3/uL (1.2-3.4); Absolute Neutrophil Count 1.45 10^3/uL (1.2-6.7); Atypical Lymphocytes % 1; Bands % 22; Diff Comment Manual Differential; RBC Morphology Normal
[2022-12-28] MEDS: POTASSIUM CHLORIDE 10 MEQ/100 ML BAG 100 MEQ IVPB ×4 (08:12→16:06)
[2022-12-28] MEDS: Cholecalciferol (Vitamin D3) 1,000 UNIT TAB 1000 UNITS PO (08:13)
[2022-12-28] MEDS: Potassium Chloride 10 MEQ CAPCR 40 MEQ PO (08:13)
[2022-12-28] MEDS: Apixaban 5 MG TAB PO ×2 (08:13→19:54)
[2022-12-28] MEDS: Losartan 50 MG TAB PO (08:14)
[2022-12-28] MEDS: Pregabalin 50 MG CAP PO ×2 (08:14→19:54)
[2022-12-28] MEDS: Magnesium Oxide 400 MG TAB PO (08:14)
[2022-12-28] MEDS: Metoprolol 25 MG TAB PO ×2 (08:14→19:54)
[2022-12-28] MEDS: Lidocaine 5% Patch 2 PATCH TP (10:18)
[2022-12-28] MEDS: MORPHine 2 MG/ML SYR IVP ×5 (10:20→22:16)
[2022-12-28 11:34] VITALS: BP 122/71; PULSE 89; RESP 19; TEMP 36.6; O2SAT 96
[2022-12-28] MEDS: Potassium Chloride 20 MEQ TABCR PO (12:18)
--- NOTE | 2022-12-28 12:39 | INITIAL_ITS ---
- If Service Date Differs Date of service: 12/28/22 Time of Service: 12:39 Care Management Initial Assess REASON FOR HOSPITALIZATION:: Neutropenic sepsis PAST MEDICAL HISTORY/PAST SURGICAL HISTORY:: All Active Problems. Sepsis (Acute). Advanced care planning/counseling discussion (Acute). Cancer related pain (Acute). Muscle pain (Chronic). Bone tumor (Acute). DVT (deep venous thrombosis) (Chronic). Mental health disorder (Chronic). Folate deficiency (Acute). Acute kidney injury superimposed on chronic kidney disease (Acute). Acute on chronic anemia (Acute). Hypertension (Chronic). Anxiety (Chronic). Constipation (Acute). Reflux esophagitis (Acute). Acute on chronic diastolic CHF (congestive heart failure), NYHA class 1 (Chronic). Chest pain (Acute). Pericardial effusion (Acute). Elevated troponin (Acute). Acute anemia (Acute). Thrombocytopenia (Acute). Bandemia (Acute). Diastolic heart failure (Acute). Peripheral neuropathy (Chronic). Superficial thrombophlebitis of right upper extremity (Acute). Urothelial carcinoma (Acute). Acute pulmonary edema (Acute). IDDM (insulin dependent diabetes mellitus) (Chronic). Discharge planning issues (Acute). DVT prophylaxis (Acute). Ureteral cancer (Acute). Acute CHF (Acute). Leukocytosis (Acute). Bilateral lower extremity edema (Acute). Pericardial effusion (Acute). UTI (urinary tract infection) (Acute). Kidney mass (Acute). Flank pain (Acute). Medical History. Depression. Diabetes. Gastritis and duodenitis. GERD (gastroesophageal reflux disease). History of colon polyps. Hyperlipidemia. Obesity. Osteoarthritis. Palliative care encounter. Surgical History. Abdominal hysterectomy (~11/2010). for fibroid. Bilateral salpingectomy with oophorectomy. Biopsy of breast. cyst excised-left. section. Colonoscopy - MAC (01/10/17). EGD - MAC (01/10/17). Extraction of cataract (11/10/16). LEFT EYE; DR. MORRIS. Hemorrhoidectomy. and anal fissure repair. Hernia Repair, Incisional. OOPHRECTOMY, UNILATERAL (~1991). , Ectopic (~1991) PREVIOUS FUNCTIONAL STATUS/SOCIAL/FAMILY SUPPORTS:: Nancy lives with her Derek in [facility] in [place]. They have a cat and a dog at home, and a daughter who lives about an hour away with 4 year old twin girls. 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 Nancy requires assistance with ADLs, cooking, showering etc. She has some caregivers and home health support. CURRENT FUNCTIONAL STATUS:: Nancy was sitting up on the edge of her bed when CM met with her. She stated that she is having a better day today, but that last night was difficult. She expressed concern about the lack of communication from the ED to [place], once she was transferred to [place]. Nancy stated that she met with Palliative care today, and plans to see them again tomorrow. She stated that she is not ready for hospice, but she will discuss this more with Palliative care. CM discussed discharge planning, and Nancy stated that she would prefer to return home, but she is agreeable to going to a rehab facility if they can meet her care needs. CM talked to her daughter, Debora, who stated that she has a family friend who is willing to care for Nancy during the day while her is at work, but she is not medical, so she is concerned about the level of care she may need. CM requested a PT/OT consult in order to determine functional mobility and care needs. CM will continue to follow. ADVANCE DIRECTIVES:: None on file. Has patient been provided with info about the portal/API?: Yes Did the patient sign up for the portal?: No CODE STATUS:: Full Code INSURANCE COVERAGE / FINANCIAL ISSUES:: MCR/ BC/BS out of state CURRENT HOME/COMMUNITY SERVICES/EQUIPMENT:: Home health nursing, PT, OT. She has an aide for 1 hour twice a week. nancy also has a wheelchair, walker, commode and shower chair PRIMARY CARE PHYSICIAN:: Derek Torres POTENTIAL DISCHARGE NEEDS:: Evaluations for further needs, palliative care consult to discuss goals of care, resumption of HH services vs new hospice, follow up appointments. PATIENT/FAMILY EDUCATION NEEDS:: Review of discharge instructions, medications, activity, limitations, follow up plan and Ask Me Three ANTICIPATED BARRIERS TO DISCHARGE:: None identified at this time. TRANSPORTATION:: Via private vehicle by family. PLAN:: Nancy will be discharged home with a resumption of services vs SNF for short term rehab prior to returning home. She will transport with her family and follow up with her community providers, both locally and at [facility]. CM will continue to follow.
--- NOTE | 2022-12-28 13:46 | PGE_ITS ---
Date of Service Date of service: 12/28/22 Time of Service: 13:46 Assessment and Plan Assessment and plan (1) UTI (urinary tract infection): Status: Acute Assessment and plan: growing greater than 100k gram negative rods. urine ID and sensitivities pending. will down step to ceftriaxone and stop vancomycin while awaiting cultures (2) Urothelial carcinoma: Status: Acute Assessment and plan: followed by [facility], was seen was palliative, will re-consult (3) Gallbladder contraction: Status: Acute Assessment and plan: surgical consult placed, no further tests needed at this time. (4) Cancer related pain: Status: Acute Assessment and plan: will adjust pain medication accordingly. not tolerating fentanyl or vicodin. lidocaine patches provided some relief wants to trial morphine, will trial IVP and schedule ms contin 15 mg bid, adjust as needed consider casino cashier consider palliative vs hospice , consult pending. Worsening back pain and radicular pain and left hip pain: Imaging in October concerning for insufficiency fracture left femoral head as well as evidence of multiple areas of bony sclerosis suspicious for bony metastasis.? She had a bone biopsy of her lumbar vertebrae and it tissue obtained was inadequate to confirm if malignant cells were present. (5) IDDM (insulin dependent diabetes mellitus): Status: Chronic Assessment and plan: was refusing lantus and blood sugars well controlled on diet tresiba will be placed on hold and is in pharmacy on hold if needed A1C was 6.2 in Sep 2022 (6) Acute kidney injury superimposed on chronic kidney disease: Status: Acute Assessment and plan: improved overnight given IV fluids, avoid nephrotoxic drugs, renal dose as needed. (7) Constipation due to pain medication: Status: Acute Assessment and plan: diarrhea is likely d/t ongoing constipation will try relistor, stop imodium for now. (8) Discharge planning issues: Status: Acute Assessment and plan: palliative consult pending for goals of care and pain management DVT prophylaxis: on apixaban anticipate discharge to home when ready discussed with DR Kirk. Subjective Subjective Patient reports: still having pain, diarrhea and afebrile; denies shortness of breath Interval history since last seen: continues to have poorly controlled pain. does not tolerated fentanyl, stating it makes her confused and angry. does not get good effect from vicodin. pain in low spine and Objective Last Vital Signs Temp 36.6 C 12/28/22 11:34 Pulse 89 12/28/22 11:34 Resp 19 12/28/22 11:34 BP 122/71 12/28/22 11:34 Pulse Ox 96 12/28/22 11:34 Laboratory Results - last 24 hr 12/27/22 12/28/22 12/28/22 18:15 06:00 06:00 WBC 2.41 L RBC 3.11 L Hgb 8.5 L Hct 26.5 L MCV 85 MCH 27.3 MCHC 32.1 RDW 13.2 Plt Count 228 MPV 11.1 H Immature Gran % 0.0 Neutrophils % 38.0 Band Neutrophils % 22 Lymphocytes % 21.0 Atypical Lymphs % 1 Monocytes % 15.0 Eosinophils % 2.0 Basophils % 1.0 Nucleated RBC % 0.0 Absolute Neutrophils 1.45 Absolute Lymphocytes 0.53 L Absolute Monocytes 0.36 Absolute Eosinophils 0.05 Absolute Basophils 0.02 RBC Morphology Normal Sodium 135 L Potassium 2.9 L D Chloride 101 Carbon Dioxide 21.9 Anion Gap 12.1 H BUN 53 H Creatinine 1.5 H Est GFR (CKD-EPI 2020) 37.72 Glucose 80 Calcium 8.3 L Magnesium 2.1 Total Bilirubin 0.3 AST 28 ALT 15 Alkaline Phosphatase 94 Total Protein 5.8 L Albumin 2.2 L Stl C.difficile Tox PCR Negative Time Spent with Patient Time Spent with Patient: 35-49 minutes Time was spent: preparing to see the patient(eg.review tests), obtaining and/or reviewing separately otained hiistory, ordering medications,tests, procedures, referring, communicating with other health farm or ranch animal caretaker, indepentently interpreting results, counseling the patient and care coordination
[2022-12-28] MEDS: Mylanta Suspension 30 ML CUP PO (14:04)
[2022-12-28 14:27] LABS: Potassium 3.9 mmol/L (3.5-5.1)
--- NOTE | 2022-12-28 14:38 | PHA.REVIEW2 ---
Pharmacy Admission Review - Admission Clinical Review (Last Reviewed 12/27/22 @ 07:20 by Chuck Alonso DO) Gallbladder contraction (Acute) Sepsis (Acute) Cancer related pain (Acute) Acute kidney injury superimposed on chronic kidney disease (Acute) Urothelial carcinoma (Acute) UTI (urinary tract infection) (Acute) Sulfa (Sulfonamide Antibiotics) Allergy (Severe, Verified 12/27/22 07:35) rash adhesive Allergy (Intermediate, Verified 12/27/22 07:35) Skin Rash exenatide microspheres [From Bydureon] Allergy (Unknown, Verified 12/27/22 07:35) gabapentin Allergy (Verified 12/27/22 07:35) lorazepam [From Ativan] Allergy (Unverified 12/27/22 07:35) Skin Rash loratadine Adverse Reaction (Severe, Verified 12/27/22 07:35) MADE HER FEEL HYPER celecoxib [From Celebrex] Adverse Reaction (Intermediate, Verified 12/27/22 07:35) Pt states side effects unspecified gluten Adverse Reaction (Intermediate, Verified 12/27/22 07:35) Diarrhea lactose Adverse Reaction (Intermediate, Verified 12/27/22 07:35) Diarrhea atorvastatin Adverse Reaction (Unverified 12/27/22 07:35) hydrocodone Adverse Reaction (Unverified 12/27/22 07:35) Other (See Comment) simvastatin Adverse Reaction (Unverified 12/27/22 07:35) Ruxllaq-QUM-LyW Reductase Inhibitor [Ckpuchm-Tqq-Srp Reductase Inhibitor] Adverse Reaction (Verified 12/27/22 07:35) Tegaderm Allergy (Uncoded 12/27/22 07:35) Dermatitis Resuscitation Status Full Code Height 5 ft 4 in Weight 103.7 kg - Renal Dosing Renal Dosing: BUN 53 mg/dL (7-18) H 12/28/22 06:00 Creatinine 1.5 mg/dL (0.55-1.02) H 12/28/22 06:00 Medications needing adjustments: Reviewed (cefepime is renally adjusted) - Anticoagulation Anticoagulation: Hgb 8.5 g/dL (11.2-15.7) L 12/28/22 06:00 Hct 26.5 % (36.0-46.0) L 12/28/22 06:00 Plt Count 228 10^3/uL (130-400) 12/28/22 06:00 INR 1.0 (0.9-1.1) 12/27/22 06:45 Creatinine 1.5 mg/dL (0.55-1.02) H 12/28/22 06:00 DVT Prophylaxis: Reviewed - Opiate Usage Evaluate Pain Scale/Pains Meds: Reviewed (Morphine emv IVP q2h prn + MS Contin 15mg q12h (previously using fentanyl patch at home)) Scheduled Bowel Reg ordered if on Opiates?: No (prn only, relistor given) - Relevant Labs Sodium 135 mmol/L (136-145) L 12/28/22 06:00 Potassium 3.9 mmol/L (3.5-5.1) D 12/28/22 14:15 Chloride 101 mmol/L (98-107) 12/28/22 06:00 Magnesium 2.1 mg/dL (1.8-2.4) 12/28/22 06:00 Electrolytes, C-Reactive P, ESR: Reviewed (IV + PO replacement plus fluids) - DM Control DM Control: Glucose 80 mg/dL (74-106) 12/28/22 06:00 Finger Stick Blood Glucose 74 Finger Stick Blood Glucose 74 Finger Stick Blood Glucose 74 Finger Stick Blood Glucose 74 Finger Stick Blood Glucose 84 Finger Stick Blood Glucose 84 DM Control: Reviewed (BG well controlled -- SSI + carb coverage is ordered, long acting insulin is on hold, patient's own Tresiba is in pharmacy if needs to restart) - Cardiac Review BP, HR, EF%: Reviewed - Qtc Review QTc: Reviewed If Elevated, List meds needing intervention: QTc 474 on admission - IV to PO Switch IV Medications: Reviewed - Home Meds Home Med List reviewed: Reviewed Relevent Home Meds Not ordered & why?: all ordered, pain meds have been changed during this admission - Current meds Current Medication Order Review: Reviewed (GNR growing -- downstepped to ceftriaxone from cefepime + vanco)
[2022-12-28] MEDS: CEFEPIME 2 GM in Normal Saline 100 ML IVPB (14:40)
[2022-12-28] MEDS: Methylnaltrexone 12 MG/0.6 ML VIAL 6 MG SC (16:08)
--- NOTE | 2022-12-28 16:32 | CHAPLAIN ---
Nancy was in bed when I visited her eyes were closed but she asked me to come in an sit with her. Gradually she started a conversation. Nguyễn is being treated for urothelial carcinoma. She lives in [place] with her . She described him as being very supportive in providing care for her, and still needing to work so that they have insurance. They also have a daughter, Trinity, who lives about an hour away and is a support. Trinity has 4 year old twin daughters. She said it has been difficult to get people to understand how much pain she is in and said that nursing staff have not been understanding. Nancy said at time last night she had tremors and wasn't about to push the call sampson, and she felt isolated. She is still in a great deal of pain, she explained, and is waiting for medication to help move her bowels. She believes with will help with her pain, but may also be a painful process. Nancy is not connected to a bertha community, but said believes that the world needs to understand that everyone needs love, it is that simple, and people don't get it. She talked Efren providing simple message about love and the byrd rule and people not paying attention. She also believes that she is going through all this for some reason but isn't sure what God is trying to teach her. Daysi Natarajan NP from Palliative came in while was there. Nancy was clear that her goal is to get home and spend time with her family, and to go somewhere else if she needs further care. She said that Trinity will be in later to sign paperwork to make Trinity her decision maker for health care. In explaining her frustration with care her, she said that a night nurse said don't touch me to her, and she could have used some human touch while she was here and did not receive any. Daysi discussed how they would work to control her pain, and let Nancy know that the medication she would be receiving to help move her bowels would give her loose stools, and she was very relieved to her this. Daysi let Nancy know that Dr. Gates will see her tomorrow. Nancy's , Derek, arrived as Daysi and I were leaving.
--- NOTE | 2022-12-28 16:37 | PCNE_ITS ---
Date of service: 12/28/22 Time of Service: 15:00 History of Present Illness Narrative: Mrs. Cruz is a 67 y/o F currently inpt at [facility] 2/2 uncontrolled pain and UTI; PMHx sig for metastatic urothelial cancer w/osseous mets, CHF, CKD, gallbladder contraction, HTN, anemia, DM; Fire Control Officer Emelina Bailey present throughout visit, joins end of visit Physical - Pain: Nancy continues to describe 11 out of 10 pain, generalized throughout body, worse in back and abdomen. Was previously on fentanyl which did not agree with her, altered mental status including hallucinations, does not want to be on this again. Started on MS Contin 15 twice daily today with morphine IR 15 mg every 4 as needed. So far this medicine was agreed with her, and seems to be providing some relief. For example yesterday she was unable to sit on side of bed independently and now she is able to. Pain has been a longstanding concern and issue for her, has recently increased with new metastatic bone disease. Started on Lyrica for peripheral neuropathy by PCP which helped - Constipation: She has not moved her bowels in a long time, is bound up due to slow transit from opioid medications, aware that she is going to get new medicine today to help relieve constipation. Preference to wait for medication administration until her brings padded seat for commode - Cancer: Primary: Recurrent urothelial carcinoma, stage 4 Secondary sites: lumbar/sacral lesions, gluteus maxiumus soft tissue Treatment: palliative Surgery: 12/23/2020 - right ureteral stent placement 06/16/21 - right nephroureterectomy Chemotherapy: 02/10: carboplantin and gemcitabine 07/27/21: nivolumab 11/27/21: enfortumab, w/ tx holds, restarted 11/15/22; stopped 12/20/22: sacituzumab trial, received one dose Re-staging: PET scan 10/18 w/mets as above? Followed-by: [facility], Dr. Bhatia; f/u scheduled 01/10/23 Emotional/Psych/Mental: She is scared, angry and upset. She feels she has been mistreated, and not listen to and not treated like a person. Social/spiritual: She lives at home with her Derek. Her daughter Trinity is loving and involved in care team. She has grandchildren whom are extremely important to her. She wonders why God is testing her like this, and still finds strength in Him. -Her daughter works as a substance use counselor,Nancy expresses concerns over her own psychological addiction to pain medication, and her current reliance on them. -She is extremely upset about the care she is receiving, the world is a mess and people have to care again ADLs: Requiring increased assistance due to debilitating pain. Continent of bowels, occasional incontinence of urine. Using commode Caregivers: Does not feel able to care for her at home, does not feel safe to return home at this time. Aware that she needs caregiver assistance. History of home health ACP/Goals:?She is considering no longer engaging in oncology treatments, however is not ready to make this decision today. She would want to consider hospice, however there are concerns over where she would go. Trinity is bringing paperwork for medical guardianship tonight, whom she would want to make decisions for her if she cannot make for herself. She would like to be around a bit longer. She would like to focus on rodríguez and love. She wants to go home as soon as possible, sit with her dog, grandchildren and . - PCP: Dr. Torres; she trusts him explicitly and feels he is the only one that has always considered her GOC and specific HC requirements Hospital course: Nancy presented to the emergency room on 12/27/22 with altered mental status and fever, increased confusion and weakness, increased pain which started 3 to 4 days prior to presentation. On exam was found positive for UTI with GNR, cultures pending, started on ceftriaxone. Admitted for observation and pain control. Fentanyl patches discontinued and restarted, discontinued after increased altered mental status and patient reported hallucinations. Will remain in hospital for pain management and pending culture results. We will start her to be started today for constipation. Discharge plan pending pain control and cultures; home on hospice vs ongoing oncology treatments? to [place] vs home? Assessment and Plan Assessment and plan (1) UTI (urinary tract infection): Status: Acute Assessment and plan: urine ID and sensitivities pending continue ceftriaxone GNR (2) Urothelial carcinoma: Status: Acute Assessment and plan: metastatic f/b Dr. Bhatia at [facility], f/u scheduled 01/10/23; last treatment dose 12/20/22 w/new med sacituzumab pt expresses desire to d/c oncology treatments, however would like to continue reviewing this once she is thinking clearer and her pain is better controlled consider hospice referral as appropriate (3) Cancer related pain: Status: Acute Assessment and plan: continue MS Contin 15mg BID, w/morphine IR 15mg q4h PRN reviewed long acting and short acting pain, purpose of both considering METAL FABRICATOR HELPER on discharge for appropriate pain management; recommend 24-48hr w/morphine for appropriate MME titration of pump and management of SE failed fentanyl trial; may consider methadone or buprenorphine for long acting pain in future d/t concerns over potential psychological addiction to opioid medications; I suspect her pain needs may exceed limits of buprenorphine in the long run (4) Osseous metastasis: Status: Acute (5) Constipation due to pain medication: Status: Acute Assessment and plan: methylnaltrexone today, continue PRN dosing continue to monitor continue docusate, MOM, miralax PRN; recommend adding scheduled Senna 1-2 tabs 1-2x/day pending response (6) Discharge planning issues: Status: Acute Assessment and plan: need for f/u evaluation from PT for safe discharge plan daughter looking into assistant terminal manager care or NH placement d/t care needs exceeding abilities at home (7) Advanced care planning/counseling discussion: Status: Acute Assessment and plan: continue to address Nancy wants to be home, but is not ready to accept hospice, unsure of how her care would look focus on rodríguez and love, spend time with family and dog daughter Trinity bringing in medical guardianship paperwork tonight, Nancy is interested in having her be her HCA (8) Palliative care encounter: Assessment and plan: Palliative to continue to follow throughout inpatient stay Dr. Alan Gates established w/Nancy on 12/12 outpatient and will see her tomorrow inpatient for ongoing review of Nancy's GOC f/u on code status as appropriate (9) Altered mental status: Status: Resolved Assessment and plan: improved/resolved UTI treatment vs fentanyl reaction (10) Gallbladder contraction: Status: Acute Assessment and plan: surgical consulted, no further tests recommended PET 10/18 noted similar findings Review of Systems Narrative: as per HPI PFSH All Active Problems (Updated 12/28/22 @ 17:06 by Daysi Natarajan NP) Osseous metastasis (Acute) Discharge planning issues (Acute) Constipation due to pain medication (Acute) Gallbladder contraction (Acute) Sepsis (Acute) Advanced care planning/counseling discussion (Acute) Cancer related pain (Acute) Muscle pain (Chronic) Bone tumor (Acute) DVT (deep venous thrombosis) (Chronic) Mental health disorder (Chronic) Folate deficiency (Acute) Acute kidney injury superimposed on chronic kidney disease (Acute) Acute on chronic anemia (Acute) Hypertension (Chronic) Anxiety (Chronic) Constipation (Acute) Reflux esophagitis (Acute) Acute on chronic diastolic CHF (congestive heart failure), NYHA class 1 (Chronic) Chest pain (Acute) Pericardial effusion (Acute) Elevated troponin (Acute) Acute anemia (Acute) Thrombocytopenia (Acute) Bandemia (Acute) Diastolic heart failure (Acute) Peripheral neuropathy (Chronic) Superficial thrombophlebitis of right upper extremity (Acute) Urothelial carcinoma (Acute) Acute pulmonary edema (Acute) IDDM (insulin dependent diabetes mellitus) (Chronic) Discharge planning issues (Acute) DVT prophylaxis (Acute) Ureteral cancer (Acute) Acute CHF (Acute) Leukocytosis (Acute) Bilateral lower extremity edema (Acute) Pericardial effusion (Acute) UTI (urinary tract infection) (Acute) Kidney mass (Acute) Flank pain (Acute) Medical History Depression Diabetes Gastritis and duodenitis GERD (gastroesophageal reflux disease) History of colon polyps Hyperlipidemia Obesity Osteoarthritis Palliative care encounter Surgical History Abdominal hysterectomy (~11/2010) for fibroid Bilateral salpingectomy with oophorectomy Biopsy of breast cyst excised-left section Colonoscopy - MAC (01/10/17) EGD - MAC (01/10/17) Extraction of cataract (11/10/16) LEFT EYE; DR. MORRIS Hemorrhoidectomy and anal fissure repair Hernia Repair, Incisional OOPHRECTOMY, UNILATERAL (~1991) , Ectopic (~1991) Family History Mother Personal history of malignant neoplasm UTERINE Father Personal history of malignant neoplasm COLON Brother Heart disease Brother No problems noted. Brother No problems noted. Grandfather Personal history of malignant neoplasm Grandfather No problems noted. Grandmother Personal history of malignant neoplasm Stroke Grandmother Diabetes Personal history of malignant neoplasm Social History Smoking/Tobacco Use Status: Current-Occasional Tobacco Type: e-cigarettes Smoking risk assessment performed?: Yes Alcohol Intake: never Drug use: Never Substance use type: does not use Details: vapor use Do you feel safe at home: Yes Do you feel safe in your relationship?: Yes Exam Const General: cooperative, in distress mild (pain and agitation) and ill appearing chronically Nutritional Appearance: average body habitus Orientation: alert, awake and oriented x3 Limitations: behavioral limitations (upset w/treatment and staff, often unable to break perseverations) Other: pt lying in bed, on R side during first half of visit, grimaces often, able to reposition self; transitions to sitting on side of bed HENMT Head: normocephalic and atraumatic Ears: hearing grossly normal bilaterally Resp Effort & Inspection: normal respiratory effort, able to speak in complete sentences, no cough, not labored and not tachypneic Skin General skin exam: no rashes or lesions noted (did not conduct full skin exam) Neuro General: patient alert, patient awake and patient oriented x3 Cranial Nerves: CN's II-XI intact bilaterally Cognition: normal cognition Speech: speech normal Gait: other (not visualized) Psych Appearance: grossly normal Mental Status: mental status grossly normal Speech and Movement: speech and movement normal Mood: labile mood, angry and irritable mood Affect: labile affect, sad, hostile, indifferent and irritable affect Attitude: cooperative and refuses to answer (questions regarding hospice and GOC) Thought Process: normal, loose association and perseverating Thought Content: normal Insight: fair Judgment: fair Results Last Vital Signs Temp 97.9 F 12/28/22 11:34 Pulse 89 12/28/22 11:34 Resp 19 12/28/22 11:34 BP 122/71 12/28/22 11:34 Pulse Ox 96 12/28/22 11:34 Labs Result diagrams: 12/28/22 06:00 12/28/22 14:15 Labs: Laboratory Results - last 24 hr 12/27/22 12/28/22 12/28/22 18:15 06:00 06:00 WBC 2.41 L RBC 3.11 L Hgb 8.5 L Hct 26.5 L MCV 85 MCH 27.3 MCHC 32.1 RDW 13.2 Plt Count 228 MPV 11.1 H Immature Gran % 0.0 Neutrophils % 38.0 Band Neutrophils % 22 Lymphocytes % 21.0 Atypical Lymphs % 1 Monocytes % 15.0 Eosinophils % 2.0 Basophils % 1.0 Nucleated RBC % 0.0 Absolute Neutrophils 1.45 Absolute Lymphocytes 0.53 L Absolute Monocytes 0.36 Absolute Eosinophils 0.05 Absolute Basophils 0.02 RBC Morphology Normal Sodium 135 L Potassium 2.9 L D Chloride 101 Carbon Dioxide 21.9 Anion Gap 12.1 H BUN 53 H Creatinine 1.5 H Est GFR (CKD-EPI 2020) 37.72 Glucose 80 Calcium 8.3 L Magnesium 2.1 Total Bilirubin 0.3 AST 28 ALT 15 Alkaline Phosphatase 94 Total Protein 5.8 L Albumin 2.2 L Stl C.difficile Tox PCR Negative 12/28/22 14:15 WBC RBC Hgb Hct MCV MCH MCHC RDW Plt Count MPV Immature Gran % Neutrophils % Band Neutrophils % Lymphocytes % Atypical Lymphs % Monocytes % Eosinophils % Basophils % Nucleated RBC % Absolute Neutrophils Absolute Lymphocytes Absolute Monocytes Absolute Eosinophils Absolute Basophils RBC Morphology Sodium Potassium 3.9 D Chloride Carbon Dioxide Anion Gap BUN Creatinine Est GFR (CKD-EPI 2020) Glucose Calcium Magnesium Total Bilirubin AST ALT Alkaline Phosphatase Total Protein Albumin Stl C.difficile Tox PCR
[2022-12-28] MEDS: Insulin Aspart 300 UNITS/3 ML PEN SC ×2 (17:07→17:08)
[2022-12-28] MEDS: Normal Saline Flush 10 ML SYR IVP ×3 (18:11→21:55)
[2022-12-28 19:53] VITALS: BP 149/75; PULSE 107; RESP 16; TEMP 36.9; O2SAT 99
[2022-12-28] MEDS: cefTRIAXone 1 GM/50 ML BAG IV (21:55)
[2022-12-28 23:00] VITALS: BP 134/79; PULSE 93; RESP 16; TEMP 36.6; O2SAT 100
[2022-12-28 23:06] LABS: Campylobacter PCR Negative (Negative); Salmonella PCR Negative (Negative); Shiga Toxin PCR Negative (Negative); Shigella/Enteroinvasive Ecoli Negative (Negative)
[2022-12-29] MEDS: Normal Saline Flush 10 ML SYR IVP ×5 (00:40→21:59)
[2022-12-29] MEDS: MORPHine 2 MG/ML SYR IVP ×4 (00:40→08:21)
[2022-12-29 03:12] VITALS: BP 145/78; PULSE 98; RESP 16; TEMP 37.2; O2SAT 99
[2022-12-29 06:33] LABS: Anion Gap 8.5 mmol/L (3-11); BUN 40 mg/dL (7-18); CO2 22.5 mmol/L (21.0-32.0); CREATININE 1.4 mg/dL (0.55-1.02); Calcium 8.2 mg/dL (8.5-10.1); Chloride 105 mmol/L (98-107); Estimated GFR 40.98 (mL/min/1.73m2); Glucose 209 mg/dL (74-106); Magnesium 2.1 mg/dL (1.8-2.4); Potassium 3.8 mmol/L (3.5-5.1); Sodium 136 mmol/L (136-145)
[2022-12-29 07:54] VITALS: BP 125/69; PULSE 109; RESP 21; TEMP 36.8; O2SAT 98
[2022-12-29] MEDS: Cholecalciferol (Vitamin D3) 1,000 UNIT TAB 1000 UNITS PO (08:19)
[2022-12-29] MEDS: Apixaban 5 MG TAB PO ×2 (08:19→20:18)
[2022-12-29] MEDS: Magnesium Oxide 400 MG TAB PO (08:20)
[2022-12-29] MEDS: Metoprolol 25 MG TAB PO ×2 (08:21→20:19)
[2022-12-29] MEDS: Potassium Chloride 20 MEQ TABCR PO ×3 (08:21→17:37)
[2022-12-29] MEDS: Pregabalin 50 MG CAP PO (08:22)
[2022-12-29] MEDS: Insulin Aspart 300 UNITS/3 ML PEN SC ×4 (08:25→17:38)
--- NOTE | 2022-12-29 10:18 | W.PALPGNOTE ---
Date of service: 12/29/22 Time of Service: 08:35 Assessment and Plan Assessment and plan (1) Constipation due to pain medication: Status: Acute Assessment and plan: Patient reports she had a good bowel movement after methylnaltrexone. She then shares that she has been having frequent loose diarrheal stools including several episodes of fecal incontinence in the week prior to admission. She then determined that this was actually loose stools going around a fecal impaction based on how her abdomen felt. She reports that she has taken both MiraLAX and senna but is unclear if she is taking them on a regular basis or if she stopped when she had loose stools. Recommend writing down daily bowel regimen prior to discharge. Home health nurse can follow-up on this. (2) Osseous metastasis: Status: Acute Assessment and plan: See below (3) Urothelial carcinoma: Status: Acute Assessment and plan: Recent oncology notes reviewed. Patient called the day before hospital admission and canceled scheduled infusion because she was not feeling well. At that time she told them she was going to reschedule once she was feeling better. Patient tells me both that she plans to continue palliative chemotherapy and that she is not going to continue chemotherapy. She also tells me both that she has cancer in her bones and there is no further treatment and then tells me that she is pretty sure she is in remission and that bone biopsy was unable to prove that these are bony mets and she confirms that she declines having biopsy of her gluteal mass. This uncertainty is causing additional anxiety. Offered to discuss best case/worst-case scenario with regards to biopsying the lesion in her gluteus, but this made her upset and she did not want to discuss any further. (4) Discharge planning issues: Status: Acute Assessment and plan: Phone call with daughter Debora later in the afternoon with the following additional information: Daughter notes that mother's personality has changed dramatically over the last several years, even more so in the last year. She has become very demanding and very needy. (I do not understand what is happened to her . She occasionally seems confused and forgetful. Trinity notes that she is always more anxious when she is in the hospital. When at home, daughter notes that patient is especially demanding of her during the night, waking him up to request help getting to the commode or helping with getting pain medication. Debora is very worried that her stepfather cannot continue to care for her mother at home; she is also frustrated that home health cannot provide more hours of care. There is a family friend who is willing to come in and help out daily for several hours, but daughter feels that probably more help is needed than that. Care management has pointed out to both daughter and patient that there will not be higher level of staffing at subacute rehab facility. Patient also left a subacute rehab facility AMA after only 3 hours last year. I advised daughter to contact case management (Azalia Mohr) tomorrow to continue to work on discharge planning. (5) Sepsis: Status: Acute Assessment and plan: Patient clinically improving, as per hospitalist (6) Anxiety: Status: Chronic Assessment and plan: Patient appears to have significant anxiety. Pt continues to be adamantly against taking any medications for anxiety or depression. Note that she also identifies having a counselor who she talks with over the phone. Reports she last spoke with him about 3 weeks ago. This is a challenging situation. Case management, family and patient will continue to work on arranging for safest discharge possible. However it may not be totally satisfactory to patient and cause significant anxiety. Suggest: -Continue to offer trial of duloxetine to see if this helps with anxiety related to challenges around illness as well as decrease anxiety. -Encourage patient to schedule phone follow-up with her counselor soon as possible. (I recommended this to her today) -Suggest working on helping patient set reasonable expectations. Whenever possible, it would helpful to her if staff could give her a realistic timeframe for when assistance could be given after requests are made (e.g. removal of food trays, timing of next as needed pain medication, help with dressing and bathing). -Hospital straightener and aligner continues to meet with patient to offer additional support (7) Chronic pain due to malignant neoplastic disease: Status: Acute Assessment and plan: Pain is back and sciatica pain. Likely combination of spinal stenosis in addition to bony metastasis. patient appears to have had good response and no side effects to Morphine, started yesterday. Using med administration, I estimate she received total MME approx 78 mg previous 24 hours. In addition to long-acting morphine, she requested as needed IV doses of morphine approximately every 2-3 hours for total of at least 8 doses. This is a good start. Recommend adjustments in medication with goal to have her return home (not on hospice as she does not feel ready for hospice, and parenteral opiates usually not indicated if patient not on hospice.). Therefore goal is to have patient on long-acting morphine with additional as needed oral opiates that she or her feel comfortable administering. 2. Suggest increasing MS Contin to 30 mg PO Q12. May need to increase MS Contin dosing every 24 hours as guided by as needed opiate use. Optimally, patient would remain inpatient until stable dosing achieved, given amount of discomfort and anxiety she had on presentation to ED. 3. Pt requesting PRN morphine every two to 3 hours overnight. Suggest transitioning to oral short acting morphine: will last longer and patient hoping to discharge to either home or [facility] as soon as possible. Could use short acting oral morphine pills 15 mg Q3 h as needed or liquid morphine (10 to 15 mg Q 3 h). Advantage of pills is that it would be easier for patient to self administer. 4. Needs good bowel regimen. Patient reports variously that she is taking both MiraLAX and senna and that she has not taken anything because of loose stools. Home health nurse can follow-up on this when she is discharged. 5. She told me at last admission that pregabalin had been quite helpful with reducing leg pain but her PCP declined to increase dose due to her renal insufficiency. I suggest increasing pregabalin to 75 mg BID. Can monitor renal function. (Reduce dose if CrCL less than 30) (Pt worried about this, be aware). Cydney Selby APRN is available to discuss dosing and to address any other palliative * issues on December 30 as needed. Subjective Subjective Interval history since last seen: I met with patient this morning to follow-up on last night's discussion between patient and Daysi Natarajan, palliative care team RAILROAD CAR LETTERER. Reviewed pain control. She reported that her pain was greatly improved and she was finally able to sit up on the edge of the bed on her her own. See more complete discussion under diagnoses below. Patient continues to have multiple concerns about the treatment she is getting. She becomes quite anxious when staff is unable to immediately respond to her requests. When I stepped out of the room to request additional dose of pain medication, she tried to call both her and her daughter to ask them to help her get pain medication. Neither answered the phone. When I returned to the room she was sitting on the edge of the bed with her glasses on trying to contact her daughter and her via [employer] messaging. Objective Last Vital Signs Temp 36.8 C 12/29/22 07:54 Pulse 109 H 12/29/22 07:54 Resp 21 12/29/22 07:54 BP 125/69 12/29/22 07:54 Pulse Ox 98 12/29/22 07:54 Laboratory Results - last 24 hr 12/28/22 12/28/22 12/29/22 10:15 14:15 05:35 Sodium 136 Potassium 3.9 D 3.8 Chloride 105 Carbon Dioxide 22.5 Anion Gap 8.5 BUN 40 H Creatinine 1.4 H Est GFR (CKD-EPI 2020) 40.98 Glucose 209 H Calcium 8.2 L Magnesium 2.1 Stool Campylobacter PCR Negative Stool Salmonella PCR Negative Stool Shigella PCR Negative Shiga Toxin (PCR) Negative Objective Narrative Objective Narrative: Initially pleasant woman sitting on the edge of the bed. Very talkative, pressured speech. Labile affect. Varies between pleasant, angry, sad. No dyspnea. Speech is fluent. Formal mental status exam is not done. Seems grossly oriented. As per rest of note, some details change.
--- NOTE | 2022-12-29 10:38 | IN_ITS ---
Date of service: 12/29/22 Time of Service: 10:38 PT Notes Visit Reasons: Neutropenic Sepsis Physical Therapy Inpatient Initial Evaluation Date: 12/29/2022 Referring Doctor: Akanksha Mcwilliams NP PT Orders: PT CONSULT: Exacerbation of Chronic Cond Precautions: Fall. Standard. Activity as tolerated. Patient Profile/Admitting Diagnosis: Nancy is a 67-year-old female [facility] for management of urinary tract infection, generalized weakness, urothelial cancer, cancer-related pain, osseous metastasis, and constipation. PMHX: All Active Problems?(Updated 12/28/22 @ 14:30 by Tamera Tom NP) Gallbladder contraction (Acute) Sepsis (Acute) Advanced care planning/counseling discussion (Acute) Cancer related pain (Acute) Muscle pain (Chronic) Bone tumor (Acute) DVT (deep venous thrombosis) (Chronic) Mental health disorder (Chronic) Folate deficiency (Acute) Acute kidney injury superimposed on chronic kidney disease (Acute) Acute on chronic anemia (Acute) Hypertension (Chronic) Anxiety (Chronic) Constipation (Acute) Reflux esophagitis (Acute) Acute on chronic diastolic CHF (congestive heart failure), NYHA class 1 (Chronic) Chest pain (Acute) Pericardial effusion (Acute) Elevated troponin (Acute) Acute anemia (Acute) Thrombocytopenia (Acute) Bandemia (Acute) Diastolic heart failure (Acute) Peripheral neuropathy (Chronic) Superficial thrombophlebitis of right upper extremity (Acute) Urothelial carcinoma (Acute) Acute pulmonary edema (Acute) IDDM (insulin dependent diabetes mellitus) (Chronic) Discharge planning issues (Acute) DVT prophylaxis (Acute) Ureteral cancer (Acute) Acute CHF (Acute) Leukocytosis (Acute) Bilateral lower extremity edema (Acute) Pericardial effusion (Acute) UTI (urinary tract infection) (Acute) Kidney mass (Acute) Flank pain (Acute) Medical History? Depression Diabetes Gastritis and duodenitis GERD (gastroesophageal reflux disease) History of colon polyps Hyperlipidemia Obesity Osteoarthritis Palliative care encounter Surgical History? Abdominal hysterectomy (~11/2010) for fibroid Bilateral salpingectomy with oophorectomy Biopsy of breast cyst excised-left section Colonoscopy - MAC (01/10/17) EGD - MAC (01/10/17) Extraction of cataract (11/10/16) LEFT EYE; DR. MORRIS Hemorrhoidectomy and anal fissure repair Hernia Repair, Incisional OOPHRECTOMY, UNILATERAL (~1991) , Ectopic (~1991) Social History/Home Situation: Lives with in a handicap-accessible private home with a ramp to enter. Independent with spevialized walker that her brother recommended for her to buy. Equipment Owned/DME: Hospital bed, special walker, bedside commode, grab bars Subjective: Agreeable to mobility assessment. happy about how better she is able to move now compared to yesterday. States that she has pain mostly in her low back area and the L hip and thigh that oftentimes go down her L leg. Complained of fatigue after a short distance ambulation insinde room. She emphasizes that she will have all the help she needs at home between caregiver Gurpreet, , and the rest of her family. She is agreeable to having HH PT/OT come in and will try work with them again to slowly get her back to where she would want to be in terms of mobility. She stresses that it does not take much to tire her or to cause her to hurt. Objective: General Observation: Seated on chair. High BMI. Mental Status: Alert and oriented as to person, place, time, and purpose. Able to pay attention, focus, and respond appropriately. Pain: 6-8/10 in low [place] and and L hip Vital Signs: WNL as closely monitored by nursing staff ROM: Right Upper Extremity: Shoulder Flexion allows up to 100 degrees. Shoulder abduction allows up to 90 degrees. Elbow flexion WFL. Wrist flexion WFL. Functional opening and closing of hand WFL. Left Upper Extremity: Shoulder Flexion allows up to 100 degrees. Shoulder abduction allows up to 90 degrees. Elbow flexion WFL. Wrist flexion WFL. Functional opening and closing of hand WFL. Right Lower Extremity: Hip flexion WFL. Hip abduction WFL. Knee flexion WFL. Ankle dorsiflexion to neutral only. Ankle plantarflexion WFL. Left Lower Extremity: Hip flexion up to about 110 degrees. Hip abduction WFL. Knee flexion WFL. Ankle dorsiflexion to neutral only. Ankle plantarflexion WFL. Strength: Right Upper Extremity: Shoulder flexors 3-/5. Shoulder abductors 3-/5. Elbow flexors 4-/5. Elbow extensors 4-/5. Corporate Travel Expert strong. Left Upper Extremity: Shoulder flexors 3-/5. Shoulder abductors 3-/5. Elbow flexors 4-/5. Elbow extensors 4-/5. Corporate Travel Expert strong. Right Lower Extremity: Hip flexors 3-/5. Hip abductors 4-/5. Knee flexors 4-/5. Knee extensors 4-/5. Ankle dorsiflexors 3-/5. Ankle plantarflexors 4-/5. Left Lower Extremity: Hip flexors 3-/5. Hip abductors 4-/5. Knee flexors 4-/5. Knee extensors 4-/5. Ankle dorsiflexors 3-/5. Ankle plantarflexors 4-/5. Sensation: Pain radiating down from L gluteal area to her L leg Bed Mobility/Transfers: Rolling independent holding onto bed rail Sit to supine stand by assist Sit to stand contact guard assist with FWW Stand to sit stand by assist with FWW Bed to bedside commode stand by assist with FWW. Required assist with perineal care after voiding urine. Bedside commode to bed stand by assist with FWW Reclining chair to bed stand by assist with FWW Gait: Instructed patient with level surface ambulation of 5 feet + 5 feet + 5 feet requiring stand by assist assist. Reported pain and fatigue after activity n eeding to rest in bed right away. Nurse Marry placed lidocaine patches over lumbar and L hip area to help with pain. Balance: Static Sitting: Normal Dynamic Sitting: Normal Static Standing: Fair Dynamic Standing: Fair Special Tests: Mobility Limitations Standardized Measure [facility] AM-PAC 6 clicks Basic Mobility Inpatient Short Form: Raw Score: 29 CMS Score: 21% deficit Informed Consent/Education: Patient was instructed in purpose of PT consult and plan of care. Agreeable to proceed with established PT POC to achieve personal goals. Assessment: Patient presents with clinical signs and symptoms consistent with current/admitting diagnoses that have resulted to mobility limitations, gait instability, generalized weakness, and overall ADL decline as demonstrated by the following impairment level findings: 1. Decreased strength to B UE/LE major muscle groups 2. Impaired sitting/standing balance 3. Impaired activity tolerance 4. Limitation of joint range of motion in L hip 5. Shortness of breath 6. Swelling 7. Chronic cancer pain 8. Fatigue Impairments are contributing to the following functional limitations: 1. Decline in bed mobility skills 2. Decline in transfer skills 3. Difficulty with ambulation without assistive device and physical assistance 4. Increased completion time for mobility ADL performance 5. Increased risk for falls 6. Difficulty with managing steps alone safely Patient is assessed as a 10402 moderate complexity based on the following: History: 67-year-old female with past medical history as indicated above Examination: Demonstrable impairment in strength, balance, and mobility level with underlying impairments and functional limitations as exhibited above as well as deficit score of 29% utilizing the [facility] Mobility Inpatient Short Form Presentation: Evolving Decision Makin moderate complexity Goals: Goals X1 week 1. Supine-Sit independent 2. Sit-Supine independent 3. Sit-Stand independent 4. Stand-Sit independent with FWW 5. Bed-Chair independent with FWW 6. Chair-Bed independent with FWW 7. Independent gait on level surface with use of FWW for at least 100 feet without report of pain nor dyspnea 8. Independent with home exercise program 9. Good static and dynamic standing balance/tolerance Plan of Care/Treatment Plan: 1-2x/day, 7 days/week x 1 week. Plan of care has been reviewed with the ADMINISTRATIVE MEDICAL DIRECTOR providing the service under Physical Therapy direction. Initiate Physical Therapy intervention for pain management as needed, strengthening, bed mobility, transfers, gait, stairs, balance training, and use of assistive device. DISCHARGE RECOMMENDATIONS: Home with no services [X] Home with services. Home when medically cleared by hospitalist. Recommend home health PT services in order to progress mobility level using least restrictive assistive ambulatory device, assess home safety, identify additional equipment needs, and establish a functional maintenance program that will increase ability of patient to remain at home. [] Home with outpatient PT [] [] SNF for continued rehabilitation [] [] [employer] [] [] SNF versus LTC based on ability to participate and progress [] [X] Equipment needs: 1. 2-inch seat cushion 2. front-wheeled walker TREATMENT CODE/TIME: 06289 x 25 minutes, 77434 x 25 minutes beginning at 10:38 AM. Thank you for the opportunity to participate in the care of this patient. Deepthi Felix PT, DPT, CLT [facility] [place], [place]
[2022-12-29] MEDS: Lidocaine 5% Patch 2 PATCH TP (11:05)
[2022-12-29 11:33] VITALS: BP 137/77; PULSE 95; RESP 16; TEMP 36.7; O2SAT 99
--- NOTE | 2022-12-29 11:38 | PDOC.CMPRO ---
- If Service Date Differs Date of service: 12/29/22 Time of Service: 11:38 Care Management Progress Note S/O: Nancy was talking on the phone when CM attempted to meet with her. She met with Palliative care today. CM spoke to Debora, her daughter, who expressed understanding that her mother will likely return home, as there is no facility that will have the staffing ratio that Nancy is hoping for. CM will discuss this further with Nancy. CM will continue to follow. A: Nancy is a 67 year old male admitted to [facility] on 12/27/22 for neutropenic sepsis. P: Nancy will be discharged home with a resumption of services vs SNF for short term rehab prior to returning home. She will transport with her family and follow up with her community providers, both locally and at [facility]. CM will continue to follow.
--- NOTE | 2022-12-29 14:16 | CHAPLAIN ---
Nancy was visit with someone on her iPad when I stopped in. She remember me from yesterday and asked if Dr. Gates from [facility] sent me to visit her. (Dr. Gates met with Nancy earlier this morning.) When I responded that Dr. Gates didn't ask me to visit her, Nancy said she told Dr. Gates that she didn't need a visit from me. She also said she was doing much better than yesterday, can you see that. I told she did seem to be much more relaxed today, and left her to continue her conversation with her friend.
[2022-12-29 15:13] VITALS: BP 134/60; PULSE 79; RESP 14; TEMP 37.2; O2SAT 98
--- NOTE | 2022-12-29 15:21 | PT.INTREAT ---
Date of service: 12/29/22 Time of Service: 13:20 PT Notes Visit Reasons: Neutropenic Sepsis Inpatient Physical Therapy Treatment Note [facility] Date: 12/29/2022 PRECAUTIONS: Activity as tolerated SUBJECTIVE: Nancy is agreeable to participating in PT, however, reports that she will not get out of bed or walk this afternoon, as she is in too much pain. OBJECTIVE: PAIN: Patient global pain with movement BED MOBILITY/TRANSFERS Rolling L/R: I GAIT: Refused THEREX: Patient was instructed in a LE strengthening and stabilization program, completed in a supine position, to include: ankle pumps, quad sets, glute sets, heel slides, SLR, shoulder flexion, bicep curls, and punch ups. ASSESSMENT: Patient tolerated session with c/o global pain with all movement. She was able to tolerate ther ex for LE strengthening, however, was limited due to pain. PLAN: Continue with global strengthening, gait and transfer training for improved mobility and activity tolerance. TREATMENT CODE/TIME: 29 minutes; 62169 x2 (13:20)
--- NOTE | 2022-12-29 19:27 | PGE_ITS ---
Date of Service Date of service: 12/29/22 Time of Service: 19:27 Assessment and Plan Assessment and plan (1) Sepsis: Status: Acute Assessment and plan: Patient clinically improving - continue abx - no fevers (2) Chronic pain due to malignant neoplastic disease: Status: Acute Assessment and plan: Complains of back and sciatica pain. Likely combination of spinal stenosis in addition to bony metastasis. good response and no side effects to Morphine, started yesterday. Per recommendation of Palliative Care MS Contin increased to 30 mg PO Q12. Patient refused increase; changed back to 15 mg every 12h. Pt requesting PRN morphine every two to 3 hours overnight - attempt to transition to oral short acting morphine: liquid morphine (10 to 15 mg Q 3 h). Needs good bowel regimen. Senna, Miralax, Colace, dulcolax prn Home health nurse can follow-up on this when she is discharged. Increased pregabalin to 75 mg TID. Can monitor renal function. (Reduce dose if CrCL less than 30) (3) Urothelial carcinoma: Status: Acute Assessment and plan: Undergoing treatment - first treatment the week before admission - states she has not felt well since the treatment - chemotherapy (4) UTI (urinary tract infection): Status: Acute Assessment and plan: growing greater than 100k gram negative rods. urine ID and sensitivities pending. will down step to ceftriaxone and stop vancomycin while awaiting cultures (5) Acute kidney injury superimposed on chronic kidney disease: Status: Acute Assessment and plan: improved overnight given IV fluids, avoid nephrotoxic drugs, renal dose as needed. (6) IDDM (insulin dependent diabetes mellitus): Status: Chronic Assessment and plan: was refusing lantus and blood sugars well controlled on diet tresiba will be placed on hold and is in pharmacy on hold if needed A1C was 6.2 in Sep 2022 (7) Anxiety: Status: Chronic Assessment and plan: Exibits significant anxiety. Declines medications for anxiety or depression. She does have a counselor she speaks with on the phone -Continue to offer trial of duloxetine -Encourage patient to schedule phone follow-up with her counselor soon as possible. -assist patient with setting reasonable expectations. -Hospital patient financial counselor continues to meet with patient to offer additional support (8) Constipation due to pain medication: Status: Acute Assessment and plan: Normal bowel movement today, no complaints of abdominal pain (9) Gallbladder contraction: Status: Acute Assessment and plan: surgical consult placed, no further tests needed at this time. (10) Osseous metastasis: Status: Acute Assessment and plan: See below (11) DVT (deep venous thrombosis): Status: Chronic Assessment and plan: Continue Apixaban Discussed with Dr Kirk (12) Discharge planning issues: Status: Acute Assessment and plan: Home with resumption of home health services when stable Subjective Subjective Patient reports: no new complaints, pain is less, tolerating a regular diet, bowel movement and vomiting; denies diarrhea, nausea or shortness of breath Interval history since last seen: Taking Morphine liquid but declines increasing long acting; States she does not want to see Palliative Care, states she has told everyone that and feels the visits are anxiety provoking and nothing she needs or wants. Exam Const General: cooperative and ill appearing chronically Nutritional Appearance: obese Orientation: alert, awake and oriented x3 Limitations: behavioral limitations (upset w/treatment and staff, often unable to break perseverations) Other: pt lying in bed, during interview, then sitting up, awake, alert, conversant, pleasant HENMT Head: normocephalic and atraumatic Ears: hearing grossly normal bilaterally Eyes General: appearance normal, both eyes and all related structures Neck Neck: normal visual inspection Chest Chest: normal inspection of the chest Resp Effort & Inspection: normal respiratory effort, able to speak in complete sentences, no cough, not labored and not tachypneic Cardio Jugular venous pressure: no JVD Rhythm: regular rhythm Heart Sounds: S1 normal and S2 normal Pulses: normal peripheral pulses GI Inspection: normal to inspection Palpation: soft Auscultation: normal bowel sounds Back/Spine/Pelvis Back: no CVA tenderness Skin General skin exam: no rashes or lesions noted (did not conduct full skin exam) Neuro General: patient alert, patient awake and patient oriented x3 Cranial Nerves: CN's II-XI intact bilaterally Cognition: normal cognition Speech: speech normal Psych Appearance: grossly normal Mental Status: mental status grossly normal Speech and Movement: speech and movement normal Mood: labile mood, angry and irritable mood Affect: labile affect, sad, hostile, indifferent and irritable affect Attitude: cooperative and refuses to answer (questions regarding hospice and GOC) Thought Process: normal, loose association and perseverating Thought Content: normal Insight: fair Judgment: fair Objective Last Vital Signs Temp 37.2 C 12/29/22 15:13 Pulse 79 12/29/22 15:13 Resp 14 12/29/22 15:13 BP 134/60 12/29/22 15:13 Pulse Ox 98 12/29/22 15:13 Laboratory Results - last 24 hr 12/28/22 12/29/22 10:15 05:35 Sodium 136 Potassium 3.8 Chloride 105 Carbon Dioxide 22.5 Anion Gap 8.5 BUN 40 H Creatinine 1.4 H Est GFR (CKD-EPI 2020) 40.98 Glucose 209 H Calcium 8.2 L Magnesium 2.1 Stool Campylobacter PCR Negative Stool Salmonella PCR Negative Stool Shigella PCR Negative Shiga Toxin (PCR) Negative Time Spent with Patient Time Spent with Patient: >50 minutes Time was spent: preparing to see the patient(eg.review tests), obtaining and/or reviewing separately otained hiistory, ordering medications,tests, procedures, referring, communicating with other health companion caregiver, indepentently interpreting results, counseling the patient and care coordination
[2022-12-29 20:16] VITALS: BP 112/94; PULSE 107; RESP 16; TEMP 37.1; O2SAT 99
[2022-12-29] MEDS: Pregabalin 25 MG CAP 75 MG PO (20:25)
[2022-12-29] MEDS: Normal Saline 500 ML 30 ML IV (21:40)
[2022-12-29] MEDS: cefTRIAXone 1 GM/50 ML BAG IV (21:58)
[2022-12-29] MEDS: Patch Removal 1 EACH TP (22:00)
[2022-12-29 23:25] VITALS: BP 100/65; PULSE 73; RESP 16; TEMP 36.6; O2SAT 96
[2022-12-30 03:10] VITALS: BP 112/65; PULSE 88; RESP 14; TEMP 37.3; O2SAT 94
[2022-12-30] MEDS: Normal Saline Flush 10 ML SYR IVP ×3 (05:45→21:41)
[2022-12-30 06:11] LABS: Abs Immature Grans 0.02 10^3/uL (0.0-0.06); Absolute Basophil Count 0.03 10^3/uL (0.0-0.2); Absolute Eosinophil Count 0.27 10^3/uL (0.0-0.7); Absolute Lymphocyte Count 1.87 10^3/uL (1.2-3.4); Absolute Monocyte Count 0.53 10^3/uL (0.1-0.8); Absolute Neutrophil Count 2.28 10^3/uL (1.2-6.7); Basophils % 0.6; Eosinophils % 5.4; HCT 26.3 % (36.0-46.0); HGB 8.2 g/dL (11.2-15.7); Immature Grans % 0.4; Lymphocytes % 37.4; MCH 27.2 pg (27.0-33.0); MCHC 31.2 % (32.0-36.0); MCV 87 fL (80-95); MPV 11.1 fL (8.0-11.0); Monocytes % 10.6; Neutrophils % 45.6; Platelet Count 304 10^3/uL (130-400); RBC 3.02 10^6/uL (3.93-5.22); RDW 13.5 % (11.7-14.6); RDW-SD 42.5 fL
[2022-12-30 06:35] LABS: Anion Gap 7.7 mmol/L (3-11); BUN 36 mg/dL (7-18); CO2 23.3 mmol/L (21.0-32.0); CREATININE 1.6 mg/dL (0.55-1.02); Calcium 8.5 mg/dL (8.5-10.1); Chloride 108 mmol/L (98-107); Estimated GFR 34.91 (mL/min/1.73m2); Glucose 70 mg/dL (74-106); Magnesium 2.1 mg/dL (1.8-2.4); Potassium 5.2 mmol/L (3.5-5.1); Sodium 139 mmol/L (136-145)
[2022-12-30 07:30] VITALS: BP 107/64; PULSE 93; RESP 14; TEMP 37; O2SAT 96
[2022-12-30] MEDS: Magnesium Oxide 400 MG TAB PO (08:11)
[2022-12-30] MEDS: Apixaban 5 MG TAB PO ×2 (08:11→19:45)
[2022-12-30] MEDS: Metoprolol 25 MG TAB PO ×2 (08:11→19:45)
[2022-12-30] MEDS: Cholecalciferol (Vitamin D3) 1,000 UNIT TAB 1000 UNITS PO (08:11)
[2022-12-30] MEDS: Insulin Aspart 300 UNITS/3 ML PEN SC ×3 (08:13→12:26)
[2022-12-30] MEDS: Pregabalin 25 MG CAP 75 MG PO (08:22)
[2022-12-30] MEDS: Normal Saline 1,000 ML 125 ML IV (10:03)
--- NOTE | 2022-12-30 10:11 | PT.INTREAT ---
PT Notes Visit Reasons: Neutropenic Sepsis Date: 12/30/2022 PRECAUTIONS: Activity as tolerated SUBJECTIVE: Pt in recliner when approached for therapy this morning. pt initially reluctant to participate with standing activity reporting that her pain is at 8/10 sitting, pt started to warm up with this therapist after a few minutes and was agreeable to participating with therapy after pt has expressed sentiments about her condition. OBJECTIVE:? PAIN: 8/10 pain for bilateral knee and hip ? BED MOBILITY/TRANSFERS? Rolling L/R: I Sit to stand: CGA 5x stand to sit: Supervision 5x Toilet transfers: Stand pivot transfer SBA ? GAIT: 10'x2 with FWW CGA? THEREX: Standing static 5mins with pt doing weight shifting L/R, Marching in place, heel raises, toe raises [id number] each. ASSESSMENT:? Pt tolerated activity well with pt reporting that the movement has made the pain less and encouraged her to use the commode to multi task while she was already upright. PLAN: Continue with global strengthening, gait and transfer training for improved mobility and activity tolerance. TREATMENT CODE/TIME:? 30 minutes; [id number] (8:00)
[2022-12-30 11:15] VITALS: BP 111/64; PULSE 73; RESP 14; TEMP 36.7; O2SAT 96
[2022-12-30 14:57] VITALS: BP 156/70; PULSE 83; RESP 16; TEMP 36.7; O2SAT 96
--- NOTE | 2022-12-30 17:15 | PDOC.CMPRO ---
- If Service Date Differs Date of service: 12/30/22 Time of Service: 17:15 Care Management Progress Note S/O: Nancy was sitting up in her chair when CM met with her. She was pleasant and engaged well in conversation. She stated that at this time, she does not feel safe to return home, and is hoping to go to a facility for short term rehab. CM sent referrals to [facility], at her request. Per report, her BUN and creatinine increased today. She is not medically ready for discharge. CM will continue to follow. A: Nancy is a 67 year old male admitted to [facility] on 12/27/22 for neutropenic sepsis. P: Nancy will be discharged home with a resumption of services vs SNF for short term rehab prior to returning home. She will transport with her family and follow up with her community providers, both locally and at [facility]. CM will continue to follow.
--- NOTE | 2022-12-30 17:57 | PGE_ITS ---
Date of Service Date of service: 12/30/22 Time of Service: 14:00 Assessment and Plan Assessment and plan (1) Sepsis: Status: Acute Assessment and plan: Patient clinically improving - continue abx - no fevers (2) Chronic pain due to malignant neoplastic disease: Status: Acute Assessment and plan: Complains of back and sciatica pain. Likely combination of spinal stenosis in addition to bony metastasis. Good response and no side effects to Morphine MS Contin 15 mg every 12h. Oral short acting morphine: liquid morphine (10 to 15 mg Q 3 h). Needs good bowel regimen. Senna, Miralax, Colace, dulcolax prn Home health nurse can follow-up on this when she is discharged. Increased pregabalin to 75 mg BID, patient asked for it to be decreased back to 50 mg BID, she refused to take 75 mg - it was changed back to 50 mg orally BID. Monitoring renal function. (Reduce dose if CrCL less than 30) (3) Urothelial carcinoma: Status: Acute Assessment and plan: Undergoing treatment - first chemotherapy the week before admission - states she has not felt well since the treatment (4) UTI (urinary tract infection): Status: Acute Assessment and plan: growing greater than 100k gram negative rods. urine ID and sensitivities pending. will down step to ceftriaxone and stop vancomycin while awaiting cultures (5) Acute kidney injury superimposed on chronic kidney disease: Status: Resolved Assessment and plan: IVF discontinued, avoid nephrotoxic drugs, renal dose as needed. (6) IDDM (insulin dependent diabetes mellitus): Status: Chronic Assessment and plan: was refusing lantus and blood sugars well controlled on diet tresiba will be placed on hold and is in pharmacy on hold if needed A1C was 6.2 in Sep 2022 (7) Anxiety: Status: Chronic Assessment and plan: Exibits significant anxiety. Declines medications for anxiety or depression. She does have a counselor she speaks with on the phone -Continue to offer trial of duloxetine -Encourage patient to schedule phone follow-up with her counselor soon as possible. -assist patient with setting reasonable expectations. -Hospital electrical electronics engineers continues to meet with patient to offer additional support (8) Constipation due to pain medication: Status: Acute Assessment and plan: Normal bowel movement today, no complaints of abdominal pain (9) Gallbladder contraction: Status: Acute Assessment and plan: surgical consult placed, no further tests needed at this time. (10) Osseous metastasis: Status: Acute Assessment and plan: See below (11) DVT (deep venous thrombosis): Status: Chronic Assessment and plan: Continue Apixaban Discussed with Dr Kirk (12) Discharge planning issues: Status: Acute Assessment and plan: Home with resumption of home health services when stable Subjective Subjective Patient reports: feels better, tolerating a regular diet, voiding w/o difficulty and afebrile; denies no flatus, bowel movement, diarrhea, nausea, vomiting or shortness of breath Interval history since last seen: Nancy states she is improving slowly - reports she is unable to go home because her isn't able to care for her, she would like to go to a short term rehab. I spoke with her daughter Debora. Debora reports her mother has a lot of anxiety and is fearful about her diagnosis. She said someone misunderstood and told the patient her cancer is getting better. I assured her that did not come from the hospitalist group and that we did share with her the results of the CT stating the cancer is progressing. Exam Const General: cooperative and ill appearing chronically Nutritional Appearance: obese Orientation: alert, awake and oriented x3 Limitations: behavioral limitations (upset w/treatment and staff, often unable to break perseverations) Other: pt lying in bed, during interview, then sitting up, awake, alert, conversant, pleasant HENMT Head: normocephalic and atraumatic Ears: hearing grossly normal bilaterally Eyes General: appearance normal, both eyes and all related structures Neck Neck: normal visual inspection Chest Chest: normal inspection of the chest Resp Effort & Inspection: normal respiratory effort, able to speak in complete sentences, no cough, not labored and not tachypneic Cardio Jugular venous pressure: no JVD Rhythm: regular rhythm Heart Sounds: S1 normal and S2 normal Pulses: normal peripheral pulses GI Inspection: normal to inspection Palpation: soft Auscultation: normal bowel sounds Back/Spine/Pelvis Back: no CVA tenderness Skin General skin exam: no rashes or lesions noted (did not conduct full skin exam) Neuro General: patient alert, patient awake and patient oriented x3 Cranial Nerves: CN's II-XI intact bilaterally Cognition: normal cognition Speech: speech normal Psych Appearance: grossly normal Mental Status: mental status grossly normal Speech and Movement: speech and movement normal Mood: labile mood, angry and irritable mood Affect: labile affect, sad, hostile, indifferent and irritable affect Attitude: cooperative and refuses to answer (questions regarding hospice and GOC) Thought Process: normal, loose association and perseverating Thought Content: normal Insight: fair Judgment: fair Objective Last Vital Signs Temp 36.7 C 12/30/22 14:57 Pulse 83 12/30/22 14:57 Resp 16 12/30/22 14:57 BP 156/70 H 12/30/22 14:57 Pulse Ox 96 12/30/22 14:57 Laboratory Results - last 24 hr 12/28/22 12/30/22 12/30/22 10:15 05:55 05:55 WBC 5.00 RBC 3.02 L Hgb 8.2 L Hct 26.3 L MCV 87 MCH 27.2 MCHC 31.2 L RDW 13.5 Plt Count 304 MPV 11.1 H Immature Gran % 0.4 Neutrophils % 45.6 Lymphocytes % 37.4 Monocytes % 10.6 Eosinophils % 5.4 Basophils % 0.6 Nucleated RBC % 0.0 Absolute Neutrophils 2.28 Absolute Lymphocytes 1.87 Absolute Monocytes 0.53 Absolute Eosinophils 0.27 Absolute Basophils 0.03 Sodium 139 Potassium 5.2 H D Chloride 108 H Carbon Dioxide 23.3 Anion Gap 7.7 BUN 36 H Creatinine 1.6 H Est GFR (CKD-EPI 2020) 34.91 Glucose 70 L Calcium 8.5 Magnesium 2.1 Stool Collect Duration Random Stool Weight 26 Stool Percent Fat 24 H Stool Total Fats Not Applicable Time Spent with Patient Time Spent with Patient: 25-34 minutes Time was spent: preparing to see the patient(eg.review tests), obtaining and/or reviewing separately otained hiistory, ordering medications,tests, procedures, referring, communicating with other health career transition specialist, indepentently interpreting results, counseling the patient and care coordination
[2022-12-30] MEDS: Mylanta Suspension 30 ML CUP PO (18:02)
[2022-12-30] MEDS: Furosemide 20 MG/2 ML VIAL IVP (18:02)
[2022-12-30 19:35] VITALS: BP 141/68; PULSE 100; RESP 20; TEMP 36.8; O2SAT 100
[2022-12-30] MEDS: Pregabalin 50 MG CAP PO (19:46)
--- NOTE | 2022-12-30 20:36 | NUR.NOTE ---
Nursing Note: pt requested all [address] [facility] this ad copy writer informed the pt on the policies but pt insisted
[2022-12-30] MEDS: Polyethylene Glycol 3350 17 GM PACKET PO (21:43)
[2022-12-30] MEDS: cefTRIAXone 1 GM/50 ML BAG IV (21:56)
[2022-12-31] VITALS (7 sets, daily range): BP systolic 110–162; BP diastolic 54–92; PULSE 77–117; RESP 16–20; TEMP 36.1–37.2; O2SAT 94–98
--- NOTE | 2022-12-31 | DI.RAD_ITS ---
Exam(s) XR ABDOMEN FLAT PLATE EXAM: 2D digital imaging was performed. CLINICAL HISTORY: Constipation. COMPARISON: No exams were available for comparison TECHNIQUE: Supine views of the abdomen performed. Two views were obtained. FINDINGS: BOWEL GAS PATTERN: There mildly dilated loops small bowel present. Air is seen throughout the colon. CALCIFICATIONS: No radiopaque calcifications. OSSEOUS STRUCTURES: Normal for age. OTHER FINDINGS: Mild scarring or atelectasis in the lung bases, right greater than left. IMPRESSION: 1. This may represent an ileus. Early or partial obstruction cannot be excluded. Please correlate c linically. DATA REPOSITORY: RADIATION DOSE DELIVERED:
--- NOTE | 2022-12-31 01:29 | NUR.NOTE ---
Nursing Note: pt is rude, making false statements regarding her care. Claiming that we are withholding water and making her uses the bed side commode too often. Pt had asked to use the commode each time by ringing the call sampson and was suggested by the nurse to not drink alot of water because of being on lasix .
[2022-12-31 06:09] LABS: Absolute Basophil Count 0.05 10^3/uL (0.0-0.2); Absolute Eosinophil Count 0.38 10^3/uL (0.0-0.7); Absolute Lymphocyte Count 1.88 10^3/uL (1.2-3.4); Absolute Monocyte Count 0.72 10^3/uL (0.1-0.8); Absolute Neutrophil Count 2.03 10^3/uL (1.2-6.7); Eosinophils % 7.4; HCT 29.2 % (36.0-46.0); HGB 9.1 g/dL (11.2-15.7); Immature Grans % 1.9; Lymphocytes % 36.4; MCH 27.1 pg (27.0-33.0); MCHC 31.2 % (32.0-36.0); MCV 87 fL (80-95); MPV 10.8 fL (8.0-11.0); Neutrophils % 39.3; Nucleated RBC 0.4 % (0.0-0.3); Platelet Count 377 10^3/uL (130-400); RBC 3.36 10^6/uL (3.93-5.22); RDW 13.4 % (11.7-14.6); RDW-SD 42.5 fL; WBC 5.16 10^3/uL (4.4-10.8)
[2022-12-31 06:34] LABS: Anion Gap 7.1 mmol/L (3-11); BUN 32 mg/dL (7-18); CO2 24.9 mmol/L (21.0-32.0); CREATININE 1.6 mg/dL (0.55-1.02); Chloride 102 mmol/L (98-107); Estimated GFR 34.91 (mL/min/1.73m2); Glucose 169 mg/dL (74-106); Magnesium 2.1 mg/dL (1.8-2.4); Potassium 5.3 mmol/L (3.5-5.1); Sodium 134 mmol/L (136-145)
[2022-12-31] MEDS: Polyethylene Glycol 3350 17 GM PACKET PO (07:32)
[2022-12-31] MEDS: Docusate Sodium 100 MG CAP PO (07:33)
[2022-12-31] MEDS: Losartan 50 MG TAB PO (07:33)
[2022-12-31] MEDS: Pregabalin 50 MG CAP PO ×2 (07:33→20:33)
[2022-12-31] MEDS: Metoprolol 25 MG TAB PO ×2 (07:33→20:33)
[2022-12-31] MEDS: Acetaminophen 325 MG TAB PO ×3 (07:34→20:33)
[2022-12-31] MEDS: Magnesium Oxide 400 MG TAB PO (07:34)
[2022-12-31] MEDS: Apixaban 5 MG TAB PO ×2 (07:34→20:33)
[2022-12-31] MEDS: Normal Saline Flush 10 ML SYR IVP ×4 (07:34→20:35)
[2022-12-31] MEDS: Cholecalciferol (Vitamin D3) 1,000 UNIT TAB 1000 UNITS PO (07:34)
[2022-12-31] MEDS: Furosemide 20 MG TAB PO ×2 (07:47→15:09)
[2022-12-31] MEDS: Insulin Aspart 300 UNITS/3 ML PEN SC ×4 (08:16→12:21)
[2022-12-31] MEDS: Patch Removal 2 EACH TP (09:58)
--- NOTE | 2022-12-31 10:46 | PT.INTREAT ---
PT Notes Visit Reasons: Neutropenic Sepsis Date: 12/31/2022 PRECAUTIONS: Activity as tolerated, falls SUBJECTIVE: Pt reports having a difficult time sleeping last night, pt reports that the pain when seated is at 8/10, pt agreed to participating with therapy. OBJECTIVE:? PAIN: 8/10 pain for bilateral knee and hip ? BED MOBILITY/TRANSFERS? Rolling L/R: I Sit to stand: SBA 10x stand to sit: Supervision 10x ? GAIT:? 40', 1st attempt, 30'x2, 60' second attempt with FWW CGA?WC follow ? Deviation: Shuffling, decreased step tonya and decreased step height and step lenght.? THEREX: Initial activity Standing static 5mins with pt doing weight shifting L/R, Marching in place, heel raises, toe raises [id number] each. ASSESSMENT:? Pt tolerated activity well, required seated rest break in between distances to regain strength and Deep breathing exercise to prevent SOB. PLAN: Continue with global strengthening, gait and transfer training for improved mobility and activity tolerance. TREATMENT CODE/TIME:? 38 minutes; [id number] (9:30- 10:08am)
[2022-12-31] MEDS: Milk of Magnesia 30 ML CUP PO (10:47)
[2022-12-31] MEDS: Furosemide 40 MG/4 ML VIAL IVP (12:19)
[2022-12-31] MEDS: Methylnaltrexone 12 MG/0.6 ML VIAL SC (12:19)
[2022-12-31] MEDS: Lidocaine 5% Patch 2 PATCH TP (12:20)
--- NOTE | 2022-12-31 15:31 | PGE_ITS ---
Date of Service Date of service: 12/31/22 Time of Service: 15:31 Assessment and Plan Assessment and plan (1) Sepsis: Status: Acute Assessment and plan: Patient clinically improving - continue abx - no fevers (2) Chronic pain due to malignant neoplastic disease: Status: Acute Assessment and plan: Complains of back and sciatica pain. Likely combination of spinal stenosis in addition to bony metastasis. Good response and only side effect to morphine is constipation Continue MS Contin 15 mg every 12h. Oral short acting morphine: liquid morphine (10 to 15 mg Q 3 h). Pregabalin 50 mg orally BID. Monitoring renal function. (Reduce dose if CrCL less than 30) Needs good bowel regimen. Senna, Miralax, Colace, dulcolax prn Home health nurse can follow-up on this when she is discharged. Today developed abd pain and reporting feeling that she needed to have a BM, Relistor given with good results, two large BM. Continued to have abd pain on/off - simethicone given, possibly gas. Continued to have pain, did a portable xray of abdomen: Impression: Early or partial obstruction versus ileus. Not typical for complete obstruction. Changed diet to NPO; discussed with Dr De Luna, surgeon distribution manager, he states she is not a candidate for surgery, recommends having conversation regarding goal directed care. If she starts vomiting place NG tube to LIS. (3) Urothelial carcinoma: Status: Acute Assessment and plan: Undergoing treatment - first chemotherapy the week before admission - states she has not felt well since the treatment Mets to spine; progressively getting worse (4) UTI (urinary tract infection): Status: Acute Assessment and plan: growing greater than 100k gram negative rods Species klebsiella pneumoniae - cx sensitive to ceftriaxone; continue ceftriaxone - not sensitive to fosfomycin (5) Acute kidney injury superimposed on chronic kidney disease: Status: Resolved Assessment and plan: IVF restarted in setting of possible SBO v Ileus and NPO status x ice chips, she is receiving diuretics; monitor renal fxn & adjust accordingly Avoid nephrotoxic drugs, renal dose as needed. (6) IDDM (insulin dependent diabetes mellitus): Status: Chronic Assessment and plan: was refusing lantus and blood sugars well controlled on diet tresiba will be placed on hold and is in pharmacy on hold if needed A1C was 6.2 in Sep 2022 SS q 6h since NPO (7) Anxiety: Status: Chronic Assessment and plan: Exibits significant anxiety. Declines medications for anxiety or depression. She does have a counselor she speaks with on the phone -Continue to offer trial of duloxetine -Encourage patient to schedule phone follow-up with her counselor soon as possible. -assist patient with setting reasonable expectations. -Hospital [facility] consultant continues to meet with patient to offer additional support (8) Constipation due to pain medication: Status: Acute Assessment and plan: Needs good bowel regimen. Senna, Miralax, Colace, dulcolax prn Home health nurse can follow-up on this when she is discharged. Today developed abd pain and reporting feeling that she needed to have a BM, Relistor given with good results, two large BM. Continued to have abd pain on/off - simethicone given, possibly gas. Continued to have pain, did a portable xray of abdomen: Impression: Early or partial obstruction versus ileus. Not typical for complete obstruction. Surgery consulted - did discuss on the phone with Dr De Luna and he will see the patient tomorrow 01/01/23 Changed diet to NPO; discussed with Dr De Luna, surgeon distribution manager, he states she is not a candidate for surgery, recommends having conversation regarding goal directed care. If she starts vomiting place NG tube to LIS. (9) Gallbladder contraction: Status: Acute Assessment and plan: surgical consult placed, no further tests needed at this time. (10) Osseous metastasis: Status: Acute Assessment and plan: See below (11) DVT (deep venous thrombosis): Status: Chronic Assessment and plan: Continue Apixaban (12) Discharge planning issues: Status: Acute Assessment and plan: Home with resumption of home health services when stable Discussed with Dr Olvera Subjective Subjective Patient reports: tolerating liquids well, tolerating a regular diet, flatus, bowel movement, nausea and afebrile; denies diarrhea, vomiting or shortness of breath Interval history since last seen: Nancy complained of abd pain today stating she felt she had to have a BM and has not, she requested an enema, with the opiate regime discussed Relistor and that was given. She did have 2 or more BM after that. She continued to have on/off abdominal pain, pretty diffuse and her abdomen was hard and tender. Simethicone and abd xray done. Exam Const General: cooperative and ill appearing chronically Nutritional Appearance: obese Orientation: alert, awake and oriented x3 Limitations: behavioral limitations (upset w/treatment and staff, often unable to break perseverations) Other: pt lying in bed, during interview, then sitting up, awake, alert, conversant, pleasant HENMT Head: normocephalic and atraumatic Ears: hearing grossly normal bilaterally Eyes General: appearance normal, both eyes and all related structures Neck Neck: normal visual inspection Chest Chest: normal inspection of the chest Resp Effort & Inspection: normal respiratory effort, able to speak in complete sentences, no cough, not labored and not tachypneic Cardio Jugular venous pressure: no JVD Rhythm: regular rhythm Heart Sounds: S1 normal and S2 normal Pulses: normal peripheral pulses GI Inspection: normal to inspection Palpation: firm, guarding and tender Auscultation: hypoactive bowel sounds Back/Spine/Pelvis Back: no CVA tenderness Skin General skin exam: no rashes or lesions noted (did not conduct full skin exam) Neuro General: patient alert, patient awake and patient oriented x3 Cranial Nerves: CN's II-XI intact bilaterally Cognition: normal cognition Speech: speech normal Psych Appearance: grossly normal Mental Status: mental status grossly normal Speech and Movement: speech and movement normal Mood: labile mood, angry and irritable mood Affect: labile affect, sad, hostile, indifferent and irritable affect Attitude: cooperative and refuses to answer (questions regarding hospice and GOC) Thought Process: normal, loose association and perseverating Thought Content: normal Insight: fair Judgment: fair Objective Last Vital Signs Temp 36.9 C 12/31/22 15:04 Pulse 93 H 12/31/22 15:04 Resp 20 12/31/22 15:04 BP 112/71 12/31/22 15:04 Pulse Ox 96 12/31/22 15:04 Laboratory Results - last 24 hr 12/31/22 12/31/22 05:50 05:50 WBC 5.16 RBC 3.36 L Hgb 9.1 L Hct 29.2 L MCV 87 MCH 27.1 MCHC 31.2 L RDW 13.4 Plt Count 377 MPV 10.8 Immature Gran % 1.9 Neutrophils % 39.3 Lymphocytes % 36.4 Monocytes % 14.0 Eosinophils % 7.4 Basophils % 1.0 Nucleated RBC % 0.4 H Absolute Neutrophils 2.03 Absolute Lymphocytes 1.88 Absolute Monocytes 0.72 Absolute Eosinophils 0.38 Absolute Basophils 0.05 Sodium 134 L Potassium 5.3 H Chloride 102 Carbon Dioxide 24.9 Anion Gap 7.1 BUN 32 H Creatinine 1.6 H Est GFR (CKD-EPI 2020) 34.91 Glucose 169 H Calcium 9.0 Magnesium 2.1 Reviewed Pertinent PMH: Yes Time Spent with Patient Time Spent with Patient: 25-34 minutes Time was spent: preparing to see the patient(eg.review tests), obtaining and/or reviewing separately otained hiistory, ordering medications,tests, procedures, referring, communicating with other health customer care associate, indepentently interpreting results, counseling the patient and care coordination
[2022-12-31] MEDS: Simethicone 80 MG CHEW 240 MG PO (15:32)
--- NOTE | 2022-12-31 16:21 | DI.VRAD_ITS ---
PROCEDURE INFORMATION: Exam: XR Abdomen Exam date and time: 12/31/2022 3:34 PM Age: 67 years old Clinical indication: Constipation TECHNIQUE: Imaging protocol: Radiologic exam of the abdomen. Views: Frontal supine view of the abdomen. 1 View. COMPARISON: CT CHEST/ABD/PEL W 12/27/2022 8:22 AM FINDINGS: Gastrointestinal tract: There are some slightly distended air-filled small bowel loops. Gas is present in the colon. Bones/joints: Unremarkable. IMPRESSION: Early or partial obstruction versus ileus. Not typical for complete obstruction. Dictated and Authenticated by: Ester Katz MD. Ordering:PEDRO Vale MD
[2022-12-31] MEDS: Furosemide 100 MG/10 ML VIAL 80 MG IVP (17:34)
[2022-12-31] MEDS: Normal Saline 1,000 ML 75 ML IV (20:35)
[2022-12-31] MEDS: cefTRIAXone 1 GM/50 ML BAG IV (22:12)
[2023-01-01] MEDS: MORPHine 2 MG/ML SYR IVP ×5 (00:02→21:57)
[2023-01-01] MEDS: Normal Saline Flush 10 ML SYR IVP ×6 (00:10→21:58)
[2023-01-01 02:54] VITALS: BP 108/67; PULSE 77; RESP 16; TEMP 36.1; O2SAT 95
[2023-01-01] MEDS: Acetaminophen 325 MG TAB PO ×4 (02:56→21:57)
[2023-01-01 06:33] LABS: Abs Immature Grans 0.25 10^3/uL (0.0-0.06); Absolute Basophil Count 0.07 10^3/uL (0.0-0.2); Absolute Eosinophil Count 0.65 10^3/uL (0.0-0.7); Absolute Lymphocyte Count 2.26 10^3/uL (1.2-3.4); Absolute Monocyte Count 0.77 10^3/uL (0.1-0.8); Absolute Neutrophil Count 1.92 10^3/uL (1.2-6.7); Basophils % 1.2; HCT 26.8 % (36.0-46.0); HGB 8.5 g/dL (11.2-15.7); Immature Grans % 4.2; Lymphocytes % 38.2; MCH 27.3 pg (27.0-33.0); MCHC 31.7 % (32.0-36.0); MCV 86 fL (80-95); Neutrophils % 32.4; Platelet Count 367 10^3/uL (130-400); RBC 3.11 10^6/uL (3.93-5.22); RDW 13.8 % (11.7-14.6); RDW-SD 42.9 fL; WBC 5.92 10^3/uL (4.4-10.8)
[2023-01-01 06:38] VITALS: BP 129/73; PULSE 80; RESP 18; TEMP 36.1; O2SAT 97
[2023-01-01 06:47] LABS: Anion Gap 8.2 mmol/L (3-11); BUN 39 mg/dL (7-18); CO2 24.8 mmol/L (21.0-32.0); CREATININE 1.8 mg/dL (0.55-1.02); Calcium 8.6 mg/dL (8.5-10.1); Chloride 101 mmol/L (98-107); Estimated GFR 30.31 (mL/min/1.73m2); Glucose 123 mg/dL (74-106); Magnesium 2.1 mg/dL (1.8-2.4); Sodium 134 mmol/L (136-145)
[2023-01-01] MEDS: Cholecalciferol (Vitamin D3) 1,000 UNIT TAB 1000 UNITS PO (08:31)
[2023-01-01] MEDS: Lidocaine 5% Patch 2 PATCH TP (08:31)
[2023-01-01] MEDS: Apixaban 5 MG TAB PO ×2 (08:31→20:04)
[2023-01-01] MEDS: Metoprolol 25 MG TAB PO ×2 (08:31→20:04)
[2023-01-01] MEDS: Pregabalin 50 MG CAP PO ×2 (08:32→20:04)
[2023-01-01] MEDS: Normal Saline 1,000 ML 75 ML IV (09:31)
--- NOTE | 2023-01-01 10:56 | SCONE_ITS ---
Date of service: 01/01/23 Time of Service: 14:00 Assessment and Plan Assessment and plan (1) Bowel obstruction: Status: Acute Assessment and plan: 67 yo woman with metastatic cancer who has chronic constipation and chronic pain. HD stable. Benign abdominal exam. She has no subjective or objective findings to suggest obstruction. I have reviewed her recent CT scan and her AXR. There is no free air/free fluid nor are there air/fluid levels within the bowel and overall there are no radiographic findings to suggest SBO. Her history would make me suspicious for constipation. Indeed, the CT read by radiology specifically identifies constipation. Historical findings, clinical findings and radiographic findings are all in agreement and I recommend that she be fed and be given an aggressive bowel regimen/laxative regimen that correlates with what her home practices are. I discussed the case directly with the hospitalist service. Surgery signing off. History of Present Illness Narrative: Asked to see patient by hospitalist after concern about abdominal discomfort and XRs showing distended bowel representing possible and early obstruction. At bedside patient reports she has metastatic cancer in her bones and tells me I'm dying. She also reports to me that she has been having on/off abdominal pain for the last 6 months or so and correlates it with with worsening constipation that she thinks is secondary to opiod pain medications (for the bone pain) and also secondary to her chemotherapy agents. She knows that the pain is associated with constipation and she remedies this at home with OTX laxatives. At time of consultation she denies any abdominal pain at all. She has had nu merous bowel movements this morning and after having them, she has relief. She says this is usual and typical. She has not vomited. She denies nausea. She specifically denies RUQ pain or pain underneath her R-ribs. I mentioned the possiblity of obstruction to her and she laughed it off asking how can I be obstructed if I'm having bowel movements? Her primary concern is that I clear her for having food and eating. Her surgical history includes multiple ventral hernia repairs. 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 [facility] All Active Problems (Updated 01/01/23 @ 21:42 by Ervin De Luna MD) Bowel obstruction (Acute) Chronic pain due to malignant neoplastic disease (Acute) Osseous metastasis (Acute) Discharge planning issues (Acute) Constipation due to pain medication (Acute) Gallbladder contraction (Acute) Advanced care planning/counseling discussion (Acute) Cancer related pain (Acute) Muscle pain (Chronic) Bone tumor (Acute) DVT (deep venous thrombosis) (Chronic) Mental health disorder (Chronic) Folate deficiency (Acute) Acute on chronic anemia (Acute) Hypertension (Chronic) Anxiety (Chronic) Constipation (Acute) Reflux esophagitis (Acute) Acute on chronic diastolic CHF (congestive heart failure), NYHA class 1 (Chronic) Chest pain (Acute) Pericardial effusion (Acute) Elevated troponin (Acute) Acute anemia (Acute) Thrombocytopenia (Acute) Bandemia (Acute) Diastolic heart failure (Acute) Peripheral neuropathy (Chronic) Superficial thrombophlebitis of right upper extremity (Acute) Urothelial carcinoma (Acute) Acute pulmonary edema (Acute) IDDM (insulin dependent diabetes mellitus) (Chronic) Discharge planning issues (Acute) DVT prophylaxis (Acute) Ureteral cancer (Acute) Acute CHF (Acute) Leukocytosis (Acute) Bilateral lower extremity edema (Acute) Pericardial effusion (Acute) UTI (urinary tract infection) (Acute) Kidney mass (Acute) Flank pain (Acute) Medical History Depression Diabetes Gastritis and duodenitis GERD (gastroesophageal reflux disease) History of colon polyps Hyperlipidemia Obesity Osteoarthritis Palliative care encounter Surgical History Abdominal hysterectomy (~11/2010) for fibroid Bilateral salpingectomy with oophorectomy Biopsy of breast cyst excised-left section Colonoscopy - MAC (01/10/17) EGD - MAC (01/10/17) Extraction of cataract (11/10/16) LEFT EYE; DR. MORRIS Hemorrhoidectomy and anal fissure repair Hernia Repair, Incisional OOPHRECTOMY, UNILATERAL (~1991) , Ectopic (~1991) Family History Mother Personal history of malignant neoplasm UTERINE Father Personal history of malignant neoplasm COLON Brother Heart disease Brother No problems noted. Brother No problems noted. Grandfather Personal history of malignant neoplasm Grandfather No problems noted. Grandmother Personal history of malignant neoplasm Stroke Grandmother Diabetes Personal history of malignant neoplasm Social History Smoking/Tobacco Use Status: Current-Occasional Tobacco Type: e-cigarettes Smoking risk assessment performed?: Yes Alcohol Intake: never Drug use: Never Substance use type: does not use Details: vapor use Do you feel safe at home: Yes Do you feel safe in your relationship?: Yes Exam Narrative Exam Narrative: Gen: Nontoxic, comfortable and interactive. Does not appear to be in pain or discomfort at all. Neuro: AxOx3 Psych: Appropriate mood and affect, good insight and understanding. Abdomen: Soft, nondistended and nontender. No rawls sign. No palpable hernia(s). No tenderness anywhere. Results Last Vital Signs Temp 97.0 F L 01/01/23 06:38 Pulse 80 01/01/23 06:38 Resp 18 01/01/23 06:38 BP 129/73 01/01/23 06:38 Pulse Ox 97 01/01/23 06:38 Labs Result diagrams: 01/01/23 05:35 01/01/23 05:35 Labs: Laboratory Results - last 24 hr 01/01/23 01/01/23 05:35 05:35 WBC 5.92 RBC 3.11 L Hgb 8.5 L Hct 26.8 L MCV 86 MCH 27.3 MCHC 31.7 L RDW 13.8 Plt Count 367 MPV 11.0 Immature Gran % 4.2 Neutrophils % 32.4 Lymphocytes % 38.2 Monocytes % 13.0 Eosinophils % 11.0 Basophils % 1.2 Nucleated RBC % 0.0 Absolute Neutrophils 1.92 Absolute Lymphocytes 2.26 Absolute Monocytes 0.77 Absolute Eosinophils 0.65 Absolute Basophils 0.07 Sodium 134 L Potassium 5.0 Chloride 101 Carbon Dioxide 24.8 Anion Gap 8.2 BUN 39 H Creatinine 1.8 H Est GFR (CKD-EPI 2020) 30.31 Glucose 123 H Calcium 8.6 Magnesium 2.1
[2023-01-01 11:13] VITALS: BP 113/71; PULSE 74; RESP 18; TEMP 36.3; O2SAT 97
[2023-01-01] MEDS: Furosemide 20 MG TAB PO (12:00)
--- NOTE | 2023-01-01 12:04 | PT.INTREAT ---
PT Notes Visit Reasons: Neutropenic Sepsis Date: 01/01/2023 PRECAUTIONS: Activity as tolerated, falls SUBJECTIVE: Pt reports that she was in pain post therapy yesterday but the pain was well managed by rest and medication, pt reports that she feels much more mobile and that her energy levels feels increased due to being able to walk for the past consecutive days. OBJECTIVE:? PAIN: 5/10 pain for bilateral knee and hip ? BED MOBILITY/TRANSFERS? Rolling L/R: I Sit to stand: SBA 10x stand to sit: Supervision 10x ? GAIT:?60'x2 with FWW SBA WC follow ? Deviation: Shuffling, decreased step tonya and decreased step height and step lenght.? THEREX: Initial activity Standing static 5mins with pt doing weight shifting L/R, Marching in place, heel raises, toe raises [id number] each. ASSESSMENT:? Pt tolerated activity well, required seated rest break in between distances to regain strength and Deep breathing exercise to prevent SOB. pt considered taking pain meds post session but eventually decided that the pain is not significant enough to require pain medication. PLAN: Continue with global strengthening, gait and transfer training for improved mobility and activity tolerance. TREATMENT CODE/TIME:? 30 minutes; [id number] (10:30- 11:30am)
[2023-01-01 15:40] VITALS: BP 116/83; PULSE 92; RESP 16; TEMP 37; O2SAT 95
--- NOTE | 2023-01-01 16:30 | PGE_ITS ---
Date of Service Date of service: 01/01/23 Time of Service: 16:30 Assessment and Plan Assessment and plan (1) Chronic pain due to malignant neoplastic disease: Status: Acute Assessment and plan: Complains of back and sciatica pain. Likely combination of spinal stenosis in addition to bony metastasis. Good response and only side effect to morphine is constipation Continue MS Contin 15 mg every 12h. Oral short acting morphine: liquid morphine (10 to 15 mg Q 3 h). Pregabalin 50 mg orally BID. Monitoring renal function. (Reduce dose if CrCL less than 30) (2) Urothelial carcinoma: Status: Acute Assessment and plan: Undergoing treatment - first chemotherapy the week before admission - states she has not felt well since the treatment Mets to spine; progressively getting worse (3) UTI (urinary tract infection): Status: Acute Assessment and plan: growing greater than 100k gram negative rods Species klebsiella pneumoniae - cx sensitive to ceftriaxone; continue ceftriaxone - not sensitive to fosfomycin (4) IDDM (insulin dependent diabetes mellitus): Status: Chronic Assessment and plan: was refusing lantus and blood sugars well controlled on diet tresiba will be placed on hold and is in pharmacy on hold if needed A1C was 6.2 in Sep 2022 (5) Anxiety: Status: Chronic Assessment and plan: Exibits significant anxiety. Declines medications for anxiety or depression. She does have a counselor she speaks with on the phone -Continue to offer trial of duloxetine -Encourage patient to schedule phone follow-up with her counselor soon as possible. -assist patient with setting reasonable expectations. -Hospital x ray developing machine operator continues to meet with patient to offer additional support (6) Constipation due to pain medication: Status: Acute (7) Gallbladder contraction: Status: Acute Assessment and plan: surgical consult placed, no further tests needed at this time. (8) Osseous metastasis: Status: Acute Assessment and plan: See below (9) DVT (deep venous thrombosis): Status: Chronic Assessment and plan: Continue Apixaban (10) Discharge planning issues: Status: Acute Assessment and plan: Home with resumption of home health services when stable Discussed with Dr Olvera Subjective Subjective Patient reports: no new complaints, feels better and afebrile; denies shortness of breath Exam Const Nutritional Appearance: overweight Orientation: alert, awake and oriented x3 HENMT Head: normal to inspection, normocephalic and atraumatic Mouth: oral mucosae normal Chest Chest: normal inspection of the chest Resp Effort & Inspection: normal respiratory effort Auscultation: clear to auscultation bilaterally and diminished lung sounds Cardio Rate: regular rate Rhythm: regular rhythm GI Inspection: normal to inspection and distended Palpation: soft Skin General skin exam: no rashes or lesions noted Neuro General: patient alert, patient awake, patient oriented x3 and no focal motor deficits Cognition: normal cognition Speech: speech normal Gait: normal gait Motor: muscle tone normal throughout Extrem General: normal to inspection and full ROM Objective Last Vital Signs Temp 37 C 01/01/23 15:40 Pulse 92 H 01/01/23 15:40 Resp 16 01/01/23 15:40 BP 116/83 01/01/23 15:40 Pulse Ox 95 01/01/23 15:40 Laboratory Results - last 24 hr 01/01/23 01/01/23 05:35 05:35 WBC 5.92 RBC 3.11 L Hgb 8.5 L Hct 26.8 L MCV 86 MCH 27.3 MCHC 31.7 L RDW 13.8 Plt Count 367 MPV 11.0 Immature Gran % 4.2 Neutrophils % 32.4 Lymphocytes % 38.2 Monocytes % 13.0 Eosinophils % 11.0 Basophils % 1.2 Nucleated RBC % 0.0 Absolute Neutrophils 1.92 Absolute Lymphocytes 2.26 Absolute Monocytes 0.77 Absolute Eosinophils 0.65 Absolute Basophils 0.07 Sodium 134 L Potassium 5.0 Chloride 101 Carbon Dioxide 24.8 Anion Gap 8.2 BUN 39 H Creatinine 1.8 H Est GFR (CKD-EPI 2020) 30.31 Glucose 123 H Calcium 8.6 Magnesium 2.1 Time Spent with Patient Time Spent with Patient: 35-49 minutes Time was spent: preparing to see the patient(eg.review tests), obtaining and/or reviewing separately otained hiistory, ordering medications,tests, procedures, referring, communicating with other health day care center director, indepentently interpreting results, counseling the patient and care coordination
[2023-01-01] MEDS: Insulin Aspart 300 UNITS/3 ML PEN SC ×2 (17:58)
[2023-01-01] MEDS: Bisacodyl 5 MG TABEC PO (18:40)
[2023-01-01] MEDS: Mylanta Suspension 30 ML CUP PO (18:40)
[2023-01-01 19:14] VITALS: BP 132/86; PULSE 91; RESP 16; TEMP 36.7; O2SAT 98
[2023-01-01] MEDS: Sennosides/Docusate Sodium TAB 2 TAB PO (20:04)
[2023-01-01] MEDS: cefTRIAXone 1 GM/50 ML BAG IV (21:58)
[2023-01-01 23:29] VITALS: BP 125/75; PULSE 85; RESP 16; TEMP 36.2; O2SAT 94
[2023-01-02 02:59] VITALS: BP 118/70; PULSE 78; RESP 16; TEMP 36.4; O2SAT 97
[2023-01-02] MEDS: Acetaminophen 325 MG TAB PO ×3 (03:35→17:19)
[2023-01-02] MEDS: Normal Saline Flush 10 ML SYR IVP ×2 (03:36→05:28)
[2023-01-02] MEDS: MORPHine 2 MG/ML SYR IVP (03:36)
[2023-01-02 05:49] LABS: Abs Immature Grans 0.46 10^3/uL (0.0-0.06); Absolute Basophil Count 0.06 10^3/uL (0.0-0.2); Absolute Eosinophil Count 0.76 10^3/uL (0.0-0.7); Absolute Lymphocyte Count 1.64 10^3/uL (1.2-3.4); Absolute Monocyte Count 0.73 10^3/uL (0.1-0.8); Absolute Neutrophil Count 2.19 10^3/uL (1.2-6.7); HGB 8.2 g/dL (11.2-15.7); Immature Grans % 7.9; Lymphocytes % 28.1; MCH 26.9 pg (27.0-33.0); MCHC 30.4 % (32.0-36.0); MCV 89 fL (80-95); MPV 10.6 fL (8.0-11.0); Monocytes % 12.5; Neutrophils % 37.5; RBC 3.05 10^6/uL (3.93-5.22); RDW 13.6 % (11.7-14.6); WBC 5.84 10^3/uL (4.4-10.8)
[2023-01-02 06:02] LABS: Anion Gap 5.8 mmol/L (3-11); BUN 38 mg/dL (7-18); CO2 27.2 mmol/L (21.0-32.0); Calcium 8.3 mg/dL (8.5-10.1); Chloride 101 mmol/L (98-107); Estimated GFR 26.71 (mL/min/1.73m2); Glucose 146 mg/dL (74-106); Potassium 5.3 mmol/L (3.5-5.1); Sodium 134 mmol/L (136-145)
[2023-01-02 06:45] LABS: Platelet Count 368 10^3/uL (130-400)
[2023-01-02 06:46] LABS: Diff Comment Agrees w/ Instrument; Hypochromasia 2+; Polychromasia Present
--- NOTE | 2023-01-02 07:47 | W.PALPGNOTE ---
Date of service: 01/02/23 Time of Service: 07:47 Assessment and Plan Assessment and plan (1) Chronic pain due to malignant neoplastic disease: Status: Acute (2) Osseous metastasis: Status: Acute (3) Advanced care planning/counseling discussion: Status: Acute Assessment and plan: Nancy feels strongly that she is getting better care at this point. She is happy that people are listening to her. Regarding pain medication?she is not interested in increasing the long-acting morphine or increasing the frequency of it i.e. changing it from every 12 to every 8 hours. She states that she knows her body and that how she is getting it presently is good for her. She does like the as needed short acting morphine. This does need to be transitioned MADELINE to oral forms of morphine. Regarding placement-she states that her is no longer able to take care of her. She is not eligible for Medicaid because he has a 401(k). She feels that it will be a while before she can be placed in a [facility]. She notes that is where she needs to be Further care: She feels that this is a bump in the road with how she has reacted to recent chemotherapy. She does need Lasix and not given just once but high doses given over the next couple of days in order to relieve her swelling. She is not really certain why this is not being done. She understands about her renal function (this unfortunately is rising) Prognostic awareness?understandably she wants to be in control, and she also does have a good understanding of medications treatments etc. There has been a lot of discussion about her interactions with staff etc. I would recommend that psychiatry be consulted. This is now available for inpatients. She clearly stated that she has no interest in further palliative care. She did asked me to write my name down in her book. I recommended that she contact us if she would like to meet with any of us in the future. Subjective Subjective Interval history since last seen: I am meeting Nancy in her hospital room. She has met with barney casanova and Dr. Gates. She sat up in bed and put on her slippers. She was emphatic that she was not interested in palliative care. She is upset because she does not feel that she is at hospice place at this time. She also is upset with the government because they are not able to meet her needs. She also does not feel that [facility] has the full breath of care that can be given to her if she lived in [place]. She is also except because she does not feel the people are listening to her, although she feels like this is gotten better. She feels strongly that she knows her body and that she needs to do things a certain way. Additionally she says that her daughter is a pain counselor and understands the medications and needs to be consulted if there is a change in medications not just have changes dictated by provider staff. Exam Narrative Exam Narrative: Nancy was able to get up from a lying position and sit on the side of her bed. She could speak in complete sentences and paragraphs. She did not appear to have shortness of breath. She does have significant edema in her feet. She stated that it was also in her abdomen but chose not to have me examine that. Objective Last Vital Signs Temp 97.5 F L 01/02/23 02:59 Pulse 78 01/02/23 02:59 Resp 16 01/02/23 02:59 BP 118/70 01/02/23 02:59 Pulse Ox 97 01/02/23 02:59 Laboratory Results - last 24 hr 01/02/23 01/02/23 05:32 05:32 WBC 5.84 RBC 3.05 L Hgb 8.2 L Hct 27.0 L MCV 89 MCH 26.9 L MCHC 30.4 L RDW 13.6 Plt Count 368 MPV 10.6 Immature Gran % 7.9 Neutrophils % 37.5 Lymphocytes % 28.1 Monocytes % 12.5 Eosinophils % 13.0 Basophils % 1.0 Nucleated RBC % 0.0 Absolute Neutrophils 2.19 Absolute Lymphocytes 1.64 Absolute Monocytes 0.73 Absolute Eosinophils 0.76 H Absolute Basophils 0.06 RBC Morphology See Below Polychromasia Present Hypochromasia 2+ Sodium 134 L Potassium 5.3 H Chloride 101 Carbon Dioxide 27.2 Anion Gap 5.8 BUN 38 H Creatinine 2.0 H Est GFR (CKD-EPI 2020) 26.71 Glucose 146 H Calcium 8.3 L Laboratory Tests 12/30/22 12/31/22 12/31/22 05:55 05:50 05:50 Hct 26.3 L 29.2 L Sodium Potassium Creatinine 1.6 H 01/01/23 01/02/23 01/02/23 05:35 05:32 05:32 Hct 27.0 L Sodium 134 L Potassium 5.3 H Creatinine 1.8 H 2.0 H 12/27/22 FINDINGS: ABDOMINAL AORTA AND IVC: Visualized portions normal caliber.? PANCREAS: Normal where visualized. LIVER: Normal. Hepatopedal flow in the Portal Vein. Upper limits of normal in size. GALLBLADDER:No evidence of cholelithiasis. There is gallbladder wall thickening up to 8 mm.? No pericholecystic fluid identified. There is mobile debris seen within the gallbladder. BILIARY SYSTEM: Common bile duct measures 8 mm.? No intrahepatic biliary ductal dilation. OSWALD'S SIGN: Negative. KIDNEYS: Status post right nephrectomy.? The left kidney is unremarkable.? No evidence of renal calculi. No evidence of hydronephrosis. No renal mass or cyst identified. SPLEEN: Not enlarged. ASCITES: None seen. IMPRESSION: 1. No evidence of cholelithiasis. There is gallbladder wall thickening and debris seen within the gallbladder. Differential considerations include acalculous cholecystitis, chronic cholecystitis or possible mass. 2.? Status post right nephrectomy. 3. Findings were discussed with Dr. Mariano on 12/27/2022.
[2023-01-02] MEDS: Sennosides/Docusate Sodium TAB 2 TAB PO ×2 (07:57→20:15)
[2023-01-02] MEDS: Cholecalciferol (Vitamin D3) 1,000 UNIT TAB 1000 UNITS PO (07:57)
[2023-01-02] MEDS: Apixaban 5 MG TAB PO ×2 (07:58→20:15)
[2023-01-02] MEDS: Metoprolol 25 MG TAB PO ×2 (07:58→20:15)
[2023-01-02] MEDS: Pregabalin 50 MG CAP PO ×2 (07:58→20:15)
[2023-01-02] MEDS: Furosemide 20 MG TAB PO ×2 (07:58→16:20)
[2023-01-02] MEDS: Insulin Aspart 300 UNITS/3 ML PEN SC ×6 (07:59→21:53)
[2023-01-02] MEDS: Lidocaine 5% Patch 2 PATCH TP (08:00)
--- NOTE | 2023-01-02 09:15 | OT.INIE ---
Occupational Therapy Notes Inpatient Occupational Therapy Evaluation Date: 01/02/23 Referring Doctor:Akanksha Mcwilliams NP OT Orders: Non Urgent Precautions: Fall, standard, full PATIENT PROFILE/ADMITTING DIAGNOSIS: Pt is a 67 year old female admitted through the ED for management of urinary tract infection, generalized weakness, urothelial cancer,? cancer-related pain, osseous metastasis, and constipation. Past Medical History: All Active Problems?(Updated 12/28/22 @ 14:30 by Tamera Tom NP) Gallbladder contraction (Acute) Sepsis (Acute) Advanced care planning/counseling discussion (Acute) Cancer related pain (Acute) Muscle pain (Chronic) Bone tumor (Acute) DVT (deep venous thrombosis) (Chronic) Mental health disorder (Chronic) Folate deficiency (Acute) Acute kidney injury superimposed on chronic kidney disease (Acute) Acute on chronic anemia (Acute) Hypertension (Chronic) Anxiety (Chronic) Constipation (Acute) Reflux esophagitis (Acute) Acute on chronic diastolic CHF (congestive heart failure), NYHA class 1 (Chronic) Chest pain (Acute) Pericardial effusion (Acute) Elevated troponin (Acute) Acute anemia (Acute) Thrombocytopenia (Acute) Bandemia (Acute) Diastolic heart failure (Acute) Peripheral neuropathy (Chronic) Superficial thrombophlebitis of right upper extremity (Acute) Urothelial carcinoma (Acute) Acute pulmonary edema (Acute) IDDM (insulin dependent diabetes mellitus) (Chronic) Discharge planning issues (Acute) DVT prophylaxis (Acute) Ureteral cancer (Acute) Acute CHF (Acute) Leukocytosis (Acute) Bilateral lower extremity edema (Acute) Pericardial effusion (Acute) UTI (urinary tract infection) (Acute) Kidney mass (Acute) Flank pain (Acute) Medical History? Depression Diabetes Gastritis and duodenitis GERD (gastroesophageal reflux disease) History of colon polyps Hyperlipidemia Obesity Osteoarthritis Palliative care encounter Surgical History? Abdominal hysterectomy (~11/2010) for fibroidBilateral salpingectomy with oophorectomy Biopsy of breast cyst excised-leftCesarean section Colonoscopy - MAC (01/10/17) EGD - MAC (01/10/17) Extraction of cataract (11/10/16) LEFT EYE; DR. 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 She does report that she has a daughter. Pt reports her baseline as needing (A). She describes her condition as chronic and notes that this she jus cannot do what she needs to be able to do due to pain and discomfort. Equipment owned/DME: commode, grab bars, FWW, application architect, shower seat/bench SUBJECTIVE: Pt states that her anxiety gets to her when people show up without her knowing. She is not receptive to care unless she knows the order is in. She states that she will perform her ADLs with OT today for evaluation but that her condition is chronic and she is planning to go to a SNF post admission. OBJECTIVE: General Observation: Pain in back and hip over the sciatic nerve, forward shoulders/rounded posture, sits with support to her back with 2 pillows Mental Status: A&Ox3 Pain: c/o pain in back, hip and LE ROM: RUE AROM WFL with limitations in shoulder flexion L UE AROM WFL with limitations in shoulder flexion STRENGTH: RUE 4/5 throughout LUE 4/5 throughout FUNCTIONAL MOBILITY/ADLS: Transfers Sit-Stand (S) with increased performance time Stand-sit (S) with increased performance time BATHING seated in chair with max (A) set up/clean up Bathing UE (I) face, (B) UE, max (A) back, under breasts and under abdomen Bathing LE max (A) DRESSING seated in chair Dressing UE max (A) don and doffing shirt Dressing LE Max (A) don and doffing underwear and pants TOILETING on commode with max (A) toileting hygiene BALANCE: Static sitting Normal Dynamic Sitting Good Static Standing Good Dynamic Standing Fair-Good SPECIAL TESTS: Daily Activity Limitations Standardized Measure [facility] AM -PAC ?6 clicks? Daily Activity Inpatient Short Form: Raw score: 11 Standardized score: 29.04 CMS score: 70.42% INFORMED CONSENT/EDUCATION: Pt instructed in purpose of OT Consult and plan of care. ASSESSMENT: Patient is a 67-year-old female referred to occupational therapy services with diagnosis of ?management of urinary tract infection, generalized weakness, urothelial cancer,? cancer-related pain, osseous metastasis, and constipation. Patient presents with clinical signs and symptoms consistent with dx, as demonstrated by the following impairment level findings/functional limitations: Impairments in ADL/IADL and leisure activities, decreased functional activity tolerance, decreased strength, increased pain with functional mobility, decreased ADLs including dressing and bathing. AMPAC score 11 Patient is assessed as a Moderate 76973 complexity based on the following: History: see above Examination: see functional limitations as noted above Presentation: evolving Decision Making: AMPAC score 11 GOALS Goals x1 week 1. Transfers (I) with standing tolerance of 2 minutes for performance of ADLs 2. Dressing seated (I) UE and min (A) LE 3. Bathing seated with max (A) set up, (I) UE, min (A) LE 4. Toileting on commode (I) 5. Eating (I) PLAN OF CARE/TREATMENT PLAN: 1x/day, 5 days/ week x 1week Initiate Occupational Therapy Services for bathing, dressing, grooming, toileting, eating, transfer training. DISCHARGE RECOMMENDATIONS Based on pts current level of function, OT recommends that pt go to SNF when medically cleared per [place]. TREATMENT TIME/MINUTES/CODES 73027, [id number], 30 minutes (08:45) DEEP Andino[facility]
[2023-01-02] MEDS: Furosemide 40 MG/4 ML VIAL IVP (10:46)
[2023-01-02] MEDS: Bisacodyl 5 MG TABEC PO (11:22)
[2023-01-02 11:46] VITALS: BP 139/74; PULSE 91; RESP 19; TEMP 36.3; O2SAT 96
--- NOTE | 2023-01-02 13:08 | NUR.NOTE ---
Nursing Note: Patient has refused Milk of Magnesia after telling me that was not part of Akanksha's plan.
--- NOTE | 2023-01-02 13:12 | W.PM.PROGNOT ---
Date of Service Date of service: 01/02/23 Time of Service: 13:12 Assessment and Plan Assessment and plan (1) Edema: Status: Acute Assessment and plan: chronic and she reports worse intermittently, rickey after chemo treatment. expected with recent IV fluids, sedentary status, and refusing teds. uses lasix prn at home. was placed on hold on admission but re-initiated. refuses to wear teds. will continue with oral lasix bid after one dose of IV lasix. encourage elevation, teds and ambulation (2) Chronic pain due to malignant neoplastic disease: Status: Acute Assessment and plan: back and sciatica pain. Likely combination of spinal stenosis in addition to bony metastasis. was reporting good response and only side effect to morphine is constipation (which has been ongoing issue prior to initiation) Continue MS Contin 15 mg every 12h. Oral short acting morphine prn: liquid morphine (10 to 15 mg Q 3 h). Patient told palliative care provider this was adequate this morning but after discharge planning discussion she is now reporting that we are not adequately managing her pain (please see palliative care note from today). based on objective evaluation this morning and her report to palliative provider, I do not feel this is the case and should continue with ms contin 15 mg bid scheduled. she is free to request oral morphine and apap prn and will readjust long acting based on usage. concern that she will become obtunded and confused as she was at admission after her fentanyl patch was increased outpatient. continue Pregabalin 50 mg orally BID. Monitoring renal function. (Reduce dose if CrCL less than 30) (3) Urothelial carcinoma: Status: Acute Assessment and plan: Undergoing treatment - chemotherapy the week before admission - states she has not felt well since the treatment Mets to spine; progressively getting worse palliative care consult placed, she dismissed provider this morning stating she was not needed at this time. defer to outpatient team (4) UTI (urinary tract infection): Status: Acute Assessment and plan: growing greater than 100k gram negative rods Species klebsiella pneumoniae - cx sensitive to ceftriaxone; continue ceftriaxone - not sensitive to fosfomycin (5) IDDM (insulin dependent diabetes mellitus): Status: Chronic Assessment and plan: blood sugars well controlled on diet, continue glucose checks ac/hs and sliding scale coverage as needed. tiffanie on hold and is in pharmacy and will need to be returned on discharge A1C was 6.2 in Sep 2022 (6) Anxiety: Status: Chronic Assessment and plan: Exhibits significant anxiety, especially regarding discharge planning and trying to resist discharge plan. Declines medications for anxiety or depression. She does have a counselor she speaks with on the phone -Continue to offer trial of duloxetine -Encourage patient to schedule phone follow-up with her counselor soon as possible. -assist patient with setting reasonable expectations. -[facility] speech therapist continues to meet with patient to offer additional support (7) Hypertension: Status: Chronic Assessment and plan: losartan has been on hold secondary to elevated renal function. blood pressures controlled. continue to monitor (8) Constipation due to pain medication: Status: Acute Assessment and plan: continue bowel management. she has been moving her bowels, eating and drinking despite reporting that she is not. (9) Gallbladder contraction: Status: Acute Assessment and plan: surgical consult placed, no further tests needed at this time. (10) DVT (deep venous thrombosis): Status: Chronic Assessment and plan: Continue Apixaban (11) Discharge planning issues: Status: Acute Assessment and plan: Home with resumption of home health services vs correction facility. she medically stable for discharge and this may represent her new baseline. she will need ongoing bowel management and pain management with adjustments as needed. Discussed with Dr Olvera Subjective Subjective Interval history since last seen: after discussing discharge plan patient now verbalizing that her pain is not managed, that she is not stooling and that she can not be discharged. she is offered oral morphine for breakthrough pain but refuses. she request tylenol and later evaluated sleeping quietly. there has been no evidence of uncontrolled pain as she is sitting the chair and interacting freely which is a dramatic improvement from admission when it was evident her pain was not well managed objectively. physical therapy evaluation suggests she is safe for discharge to home with home health services. review of record with moderate bowel movement yesterday and large on Monday. she is eating and drinking well with no nausea, vomiting or abdominal pain. hemodynamically she has been stable. Exam Const Nutritional Appearance: overweight Orientation: alert, awake and oriented x3 HENMT Head: normal to inspection, normocephalic and atraumatic Mouth: oral mucosae normal Chest Chest: normal inspection of the chest Resp Effort & Inspection: normal respiratory effort Auscultation: clear to auscultation bilaterally and diminished lung sounds Cardio Rate: regular rate Rhythm: regular rhythm GI Inspection: normal to inspection and distended Palpation: soft Skin General skin exam: no rashes or lesions noted Neuro General: patient alert, patient awake, patient oriented x3 and no focal motor deficits Cognition: normal cognition Speech: speech normal Motor: muscle tone normal throughout Extrem General: normal to inspection, full ROM and pedal edema bilaterally Psych Speech and Movement: agitated Mood: labile mood Affect: anxious affect and irritable affect Attitude: avoids eye contact and other (argumentative) Thought Process: circumstantial, confabulating, perseverating and tangential Insight: fair Judgment: poor Objective Last Vital Signs Temp 36.3 C L 01/02/23 11:46 Pulse 91 H 01/02/23 11:46 Resp 19 01/02/23 11:46 BP 139/74 01/02/23 11:46 Pulse Ox 96 01/02/23 11:46 Laboratory Results - last 24 hr 01/02/23 01/02/23 05:32 05:32 WBC 5.84 RBC 3.05 L Hgb 8.2 L Hct 27.0 L MCV 89 MCH 26.9 L MCHC 30.4 L RDW 13.6 Plt Count 368 MPV 10.6 Immature Gran % 7.9 Neutrophils % 37.5 Lymphocytes % 28.1 Monocytes % 12.5 Eosinophils % 13.0 Basophils % 1.0 Nucleated RBC % 0.0 Absolute Neutrophils 2.19 Absolute Lymphocytes 1.64 Absolute Monocytes 0.73 Absolute Eosinophils 0.76 H Absolute Basophils 0.06 RBC Morphology See Below Polychromasia Present Hypochromasia 2+ Sodium 134 L Potassium 5.3 H Chloride 101 Carbon Dioxide 27.2 Anion Gap 5.8 BUN 38 H Creatinine 2.0 H Est GFR (CKD-EPI 2020) 26.71 Glucose 146 H Calcium 8.3 L Time Spent with Patient Time Spent with Patient: 35-49 minutes Time was spent: obtaining and/or reviewing separately otained hiistory, referring, communicating with other health career technology teacher, indepentently interpreting results and counseling the patient
--- NOTE | 2023-01-02 13:38 | NUR.NOTE ---
Nursing Note: Pt refuses to use the call sampson, keeps sending her friend out to the nursing station. I spoke with the friend about not going into the kitchenette to get the patient drinks or food.
[2023-01-02] MEDS: Milk of Magnesia 30 ML CUP PO (13:42)
--- NOTE | 2023-01-02 13:54 | NUR.NOTE ---
Nursing Note:Pt informed sundar Arellano that she wants milk of magnesia, so SUNDAR reported to RN. RN then gave medication to the patient.
[2023-01-02 15:30] VITALS: BP 133/81; PULSE 93; RESP 18; TEMP 36.9; O2SAT 93
--- NOTE | 2023-01-02 15:56 | PT.INNT ---
Date of service: 01/02/23 Time of Service: 14:30 PT Notes Visit Reasons: Neutropenic Sepsis 01/03/2023 Patient declined to participate in PT in a.m. due to fatigue and global pain. In p.m., patient was not available x3. Will attempt to resume PT services tomorrow morning.
--- NOTE | 2023-01-02 16:12 | PDOC.CMPRO ---
- If Service Date Differs Date of service: 01/02/23 Time of Service: 16:12 Care Management Progress Note S/O: Nancy was lying in bed when CM met with her. She reported that she had a difficult day because she feels that she is being pushed out, and that she is not ready. She stated that her pain is not well controlled, and she was hoping to have her morphine increased today. She also expressed concern that she isn't mobile enough to go home. CM discussed that she is receiving PT and OT while here, which she is happy about, and that there is a possibility that she could go home from here, if she is able to transfer in/out of bed. CM sent additional referrals to all facilities in [place] and [facility] facilities, except [facility], as she does not want to go there. CM talked to her daughter, Debora, who also feels that her mother is not ready for discharge. CM explained to both Nancy and Debora, that once she no longer meets criteria for inpatient care, she will need a disposition, which may be returning home, if there is no bed offer at a facility. CM will continue to follow. A: Nancy is a 67 year old male admitted to [facility] on 12/27/22 for neutropenic sepsis. P: Nancy will be discharged home with a resumption of services vs SNF for short term rehab prior to returning home. She will transport with her family and follow up with her community providers, both locally and at [facility] [place] [place]. CM will continue to follow.
[2023-01-02] MEDS: Docusate Sodium 100 MG CAP PO (17:19)
[2023-01-02] MEDS: Mylanta Suspension 30 ML CUP PO (19:07)
[2023-01-02 19:24] VITALS: BP 157/84; PULSE 109; RESP 18; TEMP 37.1; O2SAT 98
[2023-01-02] MEDS: Polyethylene Glycol 3350 17 GM PACKET PO (20:15)
[2023-01-02 23:08] VITALS: BP 110/68; PULSE 96; RESP 18; TEMP 36.3; O2SAT 95
[2023-01-03] MEDS: Acetaminophen 325 MG TAB PO ×2 (01:36→10:17)
[2023-01-03 04:09] VITALS: BP 156/75; PULSE 96; RESP 22; TEMP 36.8; O2SAT 94
[2023-01-03 07:30] VITALS: BP 151/80; PULSE 99; RESP 18; TEMP 35.9; O2SAT 97
--- NOTE | 2023-01-03 07:34 | W.PM.PROGNOT ---
Date of Service Date of service: 01/03/23 Time of Service: 07:35 Objective Last Vital Signs Temp 98.2 F 01/03/23 04:09 Pulse 96 H 01/03/23 04:09 Resp 22 01/03/23 04:09 BP 156/75 H 01/03/23 04:09 Pulse Ox 94 01/03/23 04:09
[2023-01-03] MEDS: Cholecalciferol (Vitamin D3) 1,000 UNIT TAB 1000 UNITS PO (08:14)
[2023-01-03] MEDS: Sennosides/Docusate Sodium TAB 2 TAB PO (08:14)
[2023-01-03] MEDS: Bisacodyl 5 MG TABEC PO (08:14)
[2023-01-03] MEDS: Metoprolol 25 MG TAB PO (08:14)
[2023-01-03] MEDS: Apixaban 5 MG TAB PO (08:15)
[2023-01-03] MEDS: Furosemide 20 MG TAB PO (08:15)
[2023-01-03] MEDS: Pregabalin 50 MG CAP PO (08:15)
[2023-01-03] MEDS: Lidocaine 5% Patch 2 PATCH TP (08:16)
[2023-01-03] MEDS: Insulin Aspart 300 UNITS/3 ML PEN SC ×4 (08:17→12:29)
[2023-01-03] MEDS: Polyethylene Glycol 3350 17 GM PACKET PO (08:17)
--- NOTE | 2023-01-03 09:11 | OT.INNT ---
Occupational Therapy Notes 01/03/23 OT attempted to see pt this morning who was sleeping when OT arrived. OT did attempt to wake pt who states that she is not interested in services today. Karina Erazo, OTR/[facility]
--- NOTE | 2023-01-03 10:22 | PT.INTREAT ---
Date of service: 01/03/23 Time of Service: 09:45 PT Notes Visit Reasons: Neutropenic Sepsis Inpatient Physical Therapy Treatment Note [facility] Date: 01/03/2023 PRECAUTIONS: Fall, WBAT, Activity as tolerated SUBJECTIVE: Nancy states that she dis not have a good night. She also states I think I'm going home today. She reports continued pain in spine and hip at all times. OBJECTIVE: PAIN: Patient c/o constant global pain, with severe pain in hip and spine. BED MOBILITY/TRANSFERS Rolling R: I Sit-supine: S with HOB flat utilizing log-roll technique Sit-supine: S with HOB flat utilizing log-roll technique Sit-stand: SBA Stand-sit: SBA Bed-Chair: SBA Chair-bed: SBA GAIT Assistive Device: FWW Weight bearing: WBAT Assist: SBA Distance: 5 steps x2 Deviation: Short step height and length, pain THEREX: Patient unable to participate in HEP review and completion due to pain from transfers. TOILETING: Patient toileted with assist utilizing bedside commode, per her preference. ASSESSMENT: Patient tolerated session with minimal c/o L knee discomfort with therex and gait training initiation. She demonstrates improved ability to complete transfers and bed mobility without assist. PLAN: Patient to discharge to home later today, per provider. Recommend follow up with PT upon discharge to home. TREATMENT CODE/TIME: Session 1: 25 minutes; [id number] x2 (09:45) Session 2: Declined as patient is discharging to home later today.
--- NOTE | 2023-01-03 10:59 | DSE_ITS ---
Date of service: 01/03/23 Time of Service: 10:59 DS: Diagnosis Discharge Diagnosis (1) Edema: Status: Acute Asessment and Plan: Chronic and she reports worse intermittently, rickey after chemo treatment.? expected with recent IV fluids, sedentary status, and refusing teds. uses lasix prn at home.? was placed on hold on admission but re-initiated.? will continue with oral lasix bid after one dose of IV lasix.? (2) Chronic pain due to malignant neoplastic disease: Status: Acute Asessment and Plan: back and sciatica pain.? Likely combination of spinal stenosis in addition to bony metastasis.? was reporting good response and only side effect to morphine is constipation (which has been ongoing issue prior to initiation) Continue MS Contin 15 mg every 12h. Lyrica 50 mg oral BID and PRN Acetaminophen Oral short acting morphine prn? Monitoring renal function. (Reduce dose if CrCL less than 30) (3) Urothelial carcinoma: Status: Acute Asessment and Plan: Undergoing treatment - chemotherapy the week before admission - states she has not felt well since the treatment? Mets to spine (4) UTI (urinary tract infection): Status: Acute Asessment and Plan: growing greater than 100k gram negative rods Species klebsiella pneumoniae - As per antibiotic stewardship, one day of cefepime then ceftriaxone X 5 days was sufficient to treat this cx sensitive pathogen. It was not sensitive to fosfomycin (5) IDDM (insulin dependent diabetes mellitus): Status: Chronic Asessment and Plan: blood sugars well controlled on diet, continue glucose checks ac/hs and sliding scale coverage as needed. Restart tresiba and home management for DM, in pharmacy and will need to be returned on discharge A1C was 6.2 in Sep 2022 (6) Hypertension: Status: Chronic Asessment and Plan: Patient will continue metoprolol and losartan as per home regimen (7) Constipation due to pain medication: Status: Acute Asessment and Plan: Patient had 2 large BM each after administration of Relistor. Continue bowel management meds: Senna, dulcolax, docusate, and miralax as per order (8) DVT (deep venous thrombosis): Status: Chronic Asessment and Plan: Continue Apixaban Discharge Plan Disposition Patient Disposition: [facility]) Condition: Fair Discharge Details Reason For Visit: Neutropenic Sepsis Admit Date/Time: 12/27/22 10:19 Admit Provider: Erick Kirk Attending Provider: Erick Kirk Primary Care Provider: Derek Torres Hospital Course Hospital Course: This is a 67-year-old female with a past medical history of hypertension, anemia, anxiety, CKD, CHF, thrombocytopenia, diabetes, recurrent urothelial carcinoma with ongoing treatment, who is a full code and ?presented on 12/27/2022 to the [facility] ED [facility] for evaluation of altered mental status and fever. As per family confusion and generalized weakness, increased over the past day prior to arrival to the ED. The patient had increased pain for 3- 4 days prior to coming to the ED and went from one fentanyl patch to two fentanyl patches per day.?Family denied any other complaints, recent falls or trauma, no cough, no recent antibiotic use. In the ED the patient was slightly altered and confused, febrile, oxygenation was in the mid-90s, with mild tachycardia, shallow respirations. Due to concerns for pneumonia, UTI with neutropenia, the patient was started on broad-spectrum antibiotics of vancomycin, Zosyn, and azithromycin for treatment of sepsis. The patient had Klebsiella positive urine, cefepime was started, then when sensitivy from culture changed to ceftriaxone for 5 for days. The patient had c/o intractable pain and adjustments to her pain regimen with MS Contin, PRN morphine, Acetaminophen, and Lyrica were implemented. The patient reports pain at 4/10 this AM and reports it as one of her lowest pain rating during the stay; she remains unclear when asked if it was acceptable for her. She also reports fluctuating mobility evidenced by the fact that yesterday she could ambulate in the [place] with walker and PT but could not ambulate this morning but was able to move to the commode with two people assisting her. Bowel management was addressed with Senna, dulcolax, docusate miralax; the patient still c/o inadequate elimination despite bowel movements on 12/31/2024 and 01/01/2023 but refusing enema and stating that she will give time for her bowels to move today. Patient is discharged to [facility] in [facility] via EMS - stable. The patient is agreeable to discharge. Discussed with Dr Olvera Home Meds and New Rx's Prescriptions: New sennosides-docusate sodium [Colace 2-In-1] 8.6-50 mg Tablet 2 tab PO BID Qty: 0 0RF lidocaine 5 % Adhesive Patch,Medicated 2 patch topical Q24H Qty: 0 0RF morphine 10 mg/5 mL Solution 10 mg PO Q4H PRN PRNQty: 100 0RF docusate sodium [Colace] 100 mg Capsule 100 mg PO BID Qty: 60 0RF morphine 15 mg Tablet Extended Release 15 mg PO Q8H Qty: 21 0RF bisacodyl 5 mg Tablet,Delayed Release (Dr/Ec) 5 mg PO DAILY Qty: 0 0RF furosemide 20 mg Tablet 20 mg PO BID@0830,1600 Qty: 0 0RF Continued naloxone [Narcan] 4 mg/actuation spray,non-aerosol 1 spray intranasal Q2-3M PRN (Reason: opioid overdose) Qty: 2 0RF Rx Instructions: spray 1 dose into ONE nostril; alternate nostrils w each dose until help arrives pregabalin [Lyrica] 50 mg capsule 50 mg PO BID hydrocodone-acetaminophen 10-325 mg tablet 1 tab PO Q4H PRN cholecalciferol (vitamin D3) 1,000 UNIT capsule 1,000 iu PO QAM Qty: 100 (DME) OneTouch Ultra Test 1 EACH strip 1 ea Miscellaneous ac and hs Qty: 400 Rx Instructions: dx: E11.65 on insulin with labile blood sugars and risk for hypoglycemia losartan 100 mg tablet 50 mg PO DAILY Label Comments: TAKE ONE TABLET BY MOUTH EVERY DAY Eliquis 5 mg tablet 5 mg PO BID Qty: 70 0RF Rx Instructions: take 10 mg twice daily for 7 days, then 5 mg twice daily magnesium oxide 400 mg (241.3 mg magnesium) tablet 1 tab PO DAILY insulin degludec [Tresiba FlexTouch U-100] 100 UNIT/1 ML insulin pen 60 unit SQ QAM metoprolol tartrate 25 mg tablet 25 mg PO BID chlorthalidone 25 mg Tablet 25 mg PO DAILY diphenhydramine HCl 25 mg Tablet 25 mg PO Q6H PRN Changed polyethylene glycol 3350 17 gram powder in packet 17 g PO BID Qty: 0 0RF Label Comments: USE 1 PACKET DAILY IN 8OZ OF LIQUID NEEDED FOR CONSTIPATION Discontinued fentanyl 50 mcg/hr patch 72 hour 1 patch transdermal DIRECTED Label Comments: Apply 1 patch to skin every 72 hours Discharge Instructions Instructions: Bowel Obstruction (DC), Edema (DC) Stand Alone Forms: Nursing Discharge Form Referrals: Derek Torres [Primary Care Provider] - 01/17/23 11:30 am Activity:: Activity as Tolerated Equipment/Supplies:: Walker Diet:: Low Sodium Discharge Orders Discharge Orders: Discharge Order (Routine); Ordered 01/03/23 Ordered By: dEison Olvera Discharge Data Discharge Date/Time-TO BE ENTERED AT DEPARTURE: 01/03/23 12:57 DS: Summary Time Spent with Patient providing and/or coordinating discharge services: Greater than 30 minutes Status at Discharge Functional status at discharge: uses cane/walker Overall status at discharge: patient is progressing back to baseline Mental Status: mental status grossly normal Speech and Movement: speech and movement normal Mood: anxious mood Affect: animated Exam Narrative Exam Narrative: Patient is alert and oriented X 3, no focal neuro deficit, speaks in full sentences Head is normocephalic atraumatic Eyes and facial features are well-aligned Oral mucous membrane is moist. No adenopathy Lung are clear bilaterally S1, S2, no murmur. pulses are present, lower extremities with trace pedal edema Abdomen is soft, non-tender and non-distended No CVA tenderness Skin is intact. Legs push/pull 4/5; arm push/pull 5/5 Psych Mental Status: mental status grossly normal Speech and Movement: speech and movement normal Mood: anxious mood Affect: animated DS: Data Vitals/I&O Vitals and I&O: Vital Signs Temperature 96.7 F L 01/03/23 07:30 Temperature Source Skin 01/03/23 07:30 Pulse 99 H 01/03/23 07:30 Pulse Rhythm Regular 01/03/23 09:38 Respiratory Rate 18 01/03/23 07:30 Respiratory Effort 01/03/23 09:38 Respiratory Depth Shallow 01/03/23 09:38 Respiratory Pattern Normal 01/03/23 09:38 Blood Pressure 151/80 H 01/03/23 07:30 Blood Pressure Position Supine 12/27/22 06:38 Pulse Oximetry 97 01/03/23 07:30 Oxygen Delivery Method Room Air 01/03/23 07:30 Oxygen Flow Rate 0 01/03/23 07:30 Pain Level 8 01/03/23 10:17 Comment 01/02/23 19:24 Intake & Output 01/02/23 01/02/23 01/03/23 11:59 23:59 11:59 Intake Total 383.75 / 613.75 230 / 613.75 660 / 660 Output Total 950 / 3350 2400 / 3350 1000 / 1000 Balance -566.25 / -2736.25 -2170 / -2736.25 -340 / -340 Weight 227 lb 1.218 oz Intake: IV 383.75 / 433.75 50 / 433.75 Oral 180 / 180 660 / 660 Output: Urine 950 / 3350 2400 / 3350 1000 / 1000 Other: Urine Color Yellow Yellow Yellow Urine Appearance Clear Clear Clear Urine Odor None Normal None Comment post 400 ml void Voiding Methods Bedside Commode Bedside Commode Bedside Commode [facility] All Active Problems (Updated 01/02/23 @ 13:32 by Tamera Tom NP) Edema (Acute) Bowel obstruction (Acute) Chronic pain due to malignant neoplastic disease (Acute) Osseous metastasis (Acute) Discharge planning issues (Acute) Constipation due to pain medication (Acute) Gallbladder contraction (Acute) Advanced care planning/counseling discussion (Acute) Cancer related pain (Acute) Muscle pain (Chronic) Bone tumor (Acute) DVT (deep venous thrombosis) (Chronic) Mental health disorder (Chronic) Folate deficiency (Acute) Acute on chronic anemia (Acute) Hypertension (Chronic) Anxiety (Chronic) Constipation (Acute) Reflux esophagitis (Acute) Acute on chronic diastolic CHF (congestive heart failure), NYHA class 1 (Ch ronic) Chest pain (Acute) Pericardial effusion (Acute) Elevated troponin (Acute) Acute anemia (Acute) Thrombocytopenia (Acute) Bandemia (Acute) Diastolic heart failure (Acute) Peripheral neuropathy (Chronic) Superficial thrombophlebitis of right upper extremity (Acute) Urothelial carcinoma (Acute) Acute pulmonary edema (Acute) IDDM (insulin dependent diabetes mellitus) (Chronic) Discharge planning issues (Acute) DVT prophylaxis (Acute) Ureteral cancer (Acute) Acute CHF (Acute) Leukocytosis (Acute) Bilateral lower extremity edema (Acute) Pericardial effusion (Acute) UTI (urinary tract infection) (Acute) Kidney mass (Acute) Flank pain (Acute) Medical History Depression Diabetes Gastritis and duodenitis GERD (gastroesophageal reflux disease) History of colon polyps Hyperlipidemia Obesity Osteoarthritis Palliative care encounter Surgical History Abdominal hysterectomy (~11/2010) for fibroid Bilateral salpingectomy with oophorectomy Biopsy of breast cyst excised-left section Colonoscopy - MAC (01/10/17) EGD - MAC (01/10/17) Extraction of cataract (11/10/16) LEFT EYE; DR. MORRIS Hemorrhoidectomy and anal fissure repair Hernia Repair, Incisional OOPHRECTOMY, UNILATERAL (~1991) , Ectopic (~1991) Family History Mother Personal history of malignant neoplasm UTERINE Father Personal history of malignant neoplasm COLON Brother Heart disease Brother No problems noted. Brother No problems noted. Grandfather Personal history of malignant neoplasm Grandfather No problems noted. Grandmother Personal history of malignant neoplasm Stroke Grandmother Diabetes Personal history of malignant neoplasm Social History Smoking/Tobacco Use Status: Current-Occasional Tobacco Type: e-cigarettes Smoking risk assessment performed?: Yes Alcohol Intake: never Drug use: Never Substance use type: does not use Details: vapor use Do you feel safe at home: Yes Do you feel safe in your relationship?: Yes Time Spent with Patient Time Spent with Patient: 45-69 minutes Time was spent: preparing to see the patient(eg.review tests), referring, communicating with other health intensive care nurse, indepentently interpreting results and care coordination
[2023-01-03] MEDS: Normal Saline Flush 10 ML SYR IVP (11:22)
[2023-01-03] MEDS: Heparin 500 UNITS/5 ML SYRINGE IVP (11:23)
--- NOTE | 2023-01-03 11:23 | CMDISCH_ITS ---
- If Service Date Differs Date of service: 01/03/23 Time of Service: 11:23 LACE Index Scoring Tool - Questions: Length of Stay (in days): 7 - 13 Acuity (Admit via E.D.?): Yes Comorbidities: Diabetes w/o Complication, Congestive Heart Failure, Any Tumor, Liver or Renal Disease E.D. Visits: 5 - Answers: Total Score: 17 Risk of Readmission: High Risk Care Management Discharge Reason for Hospitalization: Neutropenic sepsis Discharge Plan: Nancy will be transferred to [facility] for short term rehab prior to returning home. She will transport via EMS andd follow up with the facility providers and plan of care. Patient/Family Education Needs: Review of discharge instructions, medications, activity, limitations, follow up plan and Ask Me Three Services Needed at Discharge: Residential Facility
[2023-01-03 11:59] VITALS: BP 148/77; PULSE 90; RESP 17; TEMP 37; O2SAT 95
--- NOTE | 2023-01-03 13:06 | NUR.NOTE ---
Nursing Note: Report called to Brittny at [facility].
--- NOTE | 2023-01-03 14:14 | CHAPLAIN ---
I visited with Nancy shortly before she was discharged to give her a prayer shawl.
--- NOTE | 2023-01-03 14:23 | INDS_ITS ---
PT Notes Visit Reasons: Neutropenic Sepsis Physical Therapy Inpatient Discharge Summary Date: 01/03/2023 Dates of Service: 12/29/2022 through 01/03/2023 This is a clinical summary of care provided for the duration of dates listed above. No charge was made in the completion of this documentation. Referring Doctor:Margarita Mcwilliams NP PT Orders: PT CONSULT: Exacerbation of Chronic Cond Precautions: Fall. Standard. Activity as tolerated. Patient Profile/Admitting Diagnosis:Margarita Cruz is a 67-year-old female admitted to the MedSurg unit on 12/27/2021 for management of urinary tract infection, generalized weakness, urothelial cancer,? cancer-related pain, osseous metastasis, and constipation. PMHX: All Active Problems?(Updated 12/28/22 @ 14:30 by Tamera Tom NP) Gallbladder contraction (Acute) Sepsis (Acute) Advanced care planning/counseling discussion (Acute) Cancer related pain (Acute) Muscle pain (Chronic) Bone tumor (Acute) DVT (deep venous thrombosis) (Chronic) Mental health disorder (Chronic) Folate deficiency (Acute) Acute kidney injury superimposed on chronic kidney disease (Acute) Acute on chronic anemia (Acute) Hypertension (Chronic) Anxiety (Chronic) Constipation (Acute) Reflux esophagitis (Acute) Acute on chronic diastolic CHF (congestive heart failure), NYHA class 1 (Chronic) Chest pain (Acute) Pericardial effusion (Acute) Elevated troponin (Acute) Acute anemia (Acute) Thrombocytopenia (Acute) Bandemia (Acute) Diastolic heart failure (Acute) Peripheral neuropathy (Chronic) Superficial thrombophlebitis of right upper extremity (Acute) Urothelial carcinoma (Acute) Acute pulmonary edema (Acute) IDDM (insulin dependent diabetes mellitus) (Chronic) Discharge planning issues (Acute) DVT prophylaxis (Acute) Ureteral cancer (Acute) Acute CHF (Acute) Leukocytosis (Acute) Bilateral lower extremity edema (Acute) Pericardial effusion (Acute) UTI (urinary tract infection) (Acute) Kidney mass (Acute) Flank pain (Acute) Medical History? Depression Diabetes Gastritis and duodenitis GERD (gastroesophageal reflux disease) History of colon polyps Hyperlipidemia Obesity Osteoarthritis Palliative care encounter Surgical History? Abdominal hysterectomy (~11/2010) for fibroid Bilateral salpingectomy with oophorectomy Biopsy of breast cyst excised-left section Colonoscopy - MAC (01/10/17) EGD - MAC (01/10/17) Extraction of cataract (11/10/16) LEFT EYE; DR. MORRIS Hemorrhoidectomy and anal fissure repair Hernia Repair, Incisional OOPHRECTOMY, UNILATERAL (~1991) , Ectopic (~1991) Social History/Home Situation: Lives with in a handicap-accessible private home with a ramp to enter.? Independent with spevialized walker that her brother recommended for her to buy. Equipment Owned/DME: Hospital bed,? special walker,? bedside commode, grab bars Subjective: NT. See most recent LEGAL INSTRUMENTS EXAMINER notes. Objective: General Observation: NT. See most recent LEGAL INSTRUMENTS EXAMINER notes. Mental Status: NT. See most recent LEGAL INSTRUMENTS EXAMINER notes. Pain: NT. See most recent LEGAL INSTRUMENTS EXAMINER notes. Vital Signs: NT. See most recent LEGAL INSTRUMENTS EXAMINER notes. ROM: Right Upper Extremity: ? Shoulder Flexion allows up to 100 degrees. Shoulder abduction allows up to 90 degrees. Elbow flexion WFL. Wrist flexion WFL. Functional opening and closing of hand WFL. Left Upper Extremity:? Shoulder Flexion allows up to 100 degrees. Shoulder abduction allows up to 90 degrees. Elbow flexion WFL. Wrist flexion WFL. Functional opening and closing of hand WFL. Right Lower Extremity: Hip flexion WFL. Hip abduction WFL. Knee flexion WFL. Ankle dorsiflexion to neutral only. Ankle plantarflexion WFL. Left Lower Extremity: Hip flexion? up to about 110 degrees. Hip abduction WFL. Knee flexion WFL. Ankle dorsiflexion to neutral only. Ankle plantarflexion WFL. Strength: Right Upper Extremity: Shoulder flexors 3-/5. Shoulder abductors 3-/5. Elbow flexors 4-/5. Elbow extensors 4-/5. Stock Associate strong. Left Upper Extremity: Shoulder flexors 3-/5. Shoulder abductors 3-/5. Elbow flexors 4-/5. Elbow extensors 4-/5. Stock Associate strong. Right Lower Extremity: Hip flexors 3-/5. Hip abductors 4-/5. Knee flexors 4-/5. Knee extensors 4-/5. Ankle dorsiflexors 3-/5. Ankle plantarflexors 4-/5. Left Lower Extremity: Hip flexors 3-/5. Hip abductors 4-/5. Knee flexors 4-/5. Knee extensors 4-/5. Ankle dorsiflexors 3-/5. Ankle plantarflexors 4-/5. Sensation: Pain radiating down from L gluteal area to her L leg BED MOBILITY/TRANSFERS? Rolling L/R: I Sit to stand: SBA 10x stand to sit: Supervision 10x ? GAIT:?60'x2 with FWW SBA WC follow ? Deviation: Shuffling, decreased step tonya and decreased step height and step lenght.? Balance: Static Sitting: Normal Dynamic Sitting: Normal Static Standing: Fair Dynamic Standing: Fair Special Tests: Mobility Limitations Standardized Measure [facility] 6 clicks Basic Mobility Inpatient Short Form: Raw Score: ?23 ? CMS Score: 11% deficit? ? ? Assessment: Patient presents with clinical signs and symptoms consistent with current/admitting diagnoses that have resulted to mobility limitations, gait instability, generalized weakness, and overall ADL decline as demonstrated by the following impairment level findings: 1.? Decreased strength to? B UE/LE major muscle groups 2.? Impaired sitting/standing balance 3.? Impaired activity tolerance 4.? Limitation of joint range of motion in L hip 5.? Shortness of breath 6.? Swelling 7.? Chronic cancer pain 8.? Fatigue Impairments are contributing to the following functional limitations: 1.? Decline in bed mobility skills 2.? Decline in transfer skills 3.? Difficulty with ambulation without assistive device and physical assistance 4.? Increased completion time for mobility ADL performance 5.? Increased risk for falls 6.? Difficulty with managing steps alone safely Goals: Goals X1 week 1. Supine-Sit independent NOT MET 2. Sit-Supine independent NOT MET 3. Sit-Stand independent NOT MET 4. Stand-Sit independent with FWW NOT MET 5. Bed-Chair independent with FWW NOT MET 6. Chair-Bed independent with FWW NOT MET 7. Independent gait on level surface with use of FWW for at least 100 feet without report of pain nor dyspnea NOT MET 8. Independent with home exercise program NOT MET 9. Good static and dynamic standing balance/tolerance NOT MET DISCHARGE RECOMMENDATIONS: ?? Home with no services [X] ? Home with services.? Home when medically cleared by hospitalist.? Recommend home health PT services in order to progress mobility level using least restrictive assistive ambulatory device, assess home safety, identify additional equipment needs, and establish a functional maintenance program that will increase ability of patient to remain at home. [] ? Home with outpatient PT [] [] ? SNF for continued rehabilitation [] [] ? [facility] [] [] ? SNF versus LTC based on ability to participate and progress [] [X]? Equipment needs: 1.? 2-inch seat cushion 2.? front-wheeled walker TREATMENT CODE/TIME: SC Thank you for the opportunity to participate in the care of this patient. Deepthi Felix PT, DPT, CLT [facility] [place], [place]
== END 2023-01-03 12:57 | disposition skilled nursing facility (03) | DRG 872 ==
LOC: ER 10:40 → MS 12:18
PROVIDERS: Nurse Practitioner Acute Care; Nurse Practitioner Family; Student in an Organized Health Care Education/Training Program; Admitting Provider Internal Medicine; Emergency Provider Emergency Medicine; PCP Physician Assistant; Visit Provider Internal Medicine
DX: A41.9 Sepsis, unspecified organism (principal); N39.0 Urinary tract infection, site not specified; I13.0 Hypertensive heart and chronic kidney disease with heart failure and stage 1 through stage 4 chronic kidney disease, or unspecified chronic kidney disease; N17.9 Acute kidney failure, unspecified; I50.32 Chronic diastolic (congestive) heart failure; C79.51 Secondary malignant neoplasm of bone; K82.0 Obstruction of gallbladder; C64.1 Malignant neoplasm of right kidney, except renal pelvis; C79.89 Secondary malignant neoplasm of other specified sites; I82.509 Chronic embolism and thrombosis of unspecified deep veins of unspecified lower extremity; E64.9 Sequelae of unspecified nutritional deficiency; F41.9 Anxiety disorder, unspecified; N18.9 Chronic kidney disease, unspecified; D69.6 Thrombocytopenia, unspecified; Z79.4 Long term (current) use of insulin; Z79.01 Long term (current) use of anticoagulants; R53.1 Weakness; E53.8 Deficiency of other specified B group vitamins; G89.3 Neoplasm related pain (acute) (chronic); K21.00 Gastro-esophageal reflux disease with esophagitis, without bleeding; E11.42 Type 2 diabetes mellitus with diabetic polyneuropathy; E11.22 Type 2 diabetes mellitus with diabetic chronic kidney disease; F32.A Depression, unspecified; K29.70 Gastritis, unspecified, without bleeding; K29.80 Duodenitis without bleeding; E78.5 Hyperlipidemia, unspecified; E66.9 Obesity, unspecified; Z68.39 Body mass index [BMI] 39.0-39.9, adult; F17.290 Nicotine dependence, other tobacco product, uncomplicated; Z90.5 Acquired absence of kidney; K59.03 Drug induced constipation; T40.2X5A Adverse effect of other opioids, initial encounter; M54.30 Sciatica, unspecified side; M54.9 Dorsalgia, unspecified; B96.1 Klebsiella pneumoniae [K. pneumoniae] as the cause of diseases classified elsewhere; R60.0 Localized edema; D70.9 Neutropenia, unspecified
CPT/HCPCS: 36415; 36591; 74177; 80048; 80053; 82805; 84145; 87040; 87077; 87081; 87493; 87505; 87637; 93005; 96361; 96365; 96366; 96367; 96375; 97110; 97162; 97166; 97530; 97535; 99285; 70450; 71260; 74018; 76700; 81003; 81015; 82140; 82710; 83605; 83735; 84132; 84443; 85025; 85610; 85730; 87086; 87186; 93010; 99223; 99232; 99233; 99239; J0131; J0456; J0696; J1940; J1941; J2270; J2543; J3480; J3490